=== PATIENT | male | born 1960 | race Caucasian/White ===

== ENCOUNTER 2020-01-14 19:50 | Inpatient (IN) | payer OTHER ==
[2020-01-14] MEDS ORDERED: SODIUM CHLORIDE 0.9% 1,000 ML IV STA ×3 (20:12→21:36)
[2020-01-14] MEDS ORDERED: IPRATROPIUM-ALBUTEROL 3 ML NEB INHALATION STA (20:12)
[2020-01-14] MEDS ORDERED: methylPREDNISolone SOD SUCCI 125 MG/2 ML VIAL IV STA (20:12)
[2020-01-14] MEDS ORDERED: LORazepam 2 MG/ML INJ IV STA ×2 (20:13→21:19)
--- NOTE | 2020-01-14 20:37 | ED ---
SOB HPI - General Chief Complaint: Shortness of Breath Stated Complaint: SOB Time Seen by Provider: 01/14/20 20:00 Source: patient, RN notes reviewed Mode of arrival: wheelchair Limitations: no limitations - History of Present Illness Initial Comments: This is a 59-year-old male was a smoker who has a history pneumonia in the past who presents with complaints of shortness of breath. He states is been going for about 2 days he states he was seen at [facility] earlier this morning and discharged on doxycycline and steroids. He states he was given albuterol is been very shaky and jittery since. He still complains of shortness of breath no overt chest pain no fevers chills nausea vomiting sweats. MD Complaint: shortness of breath - Related Data Home Medications Medication Instructions Recorded Confirmed Baclofen [Lioresal] 20 mg PO TID 01/14/20 01/14/20 Citalopram Hydrobromide [CeleXA] 40 mg PO DAILY 01/14/20 01/14/20 Doxycycline Monohydrate [Monodox] 100 mg PO Q12H 01/14/20 01/14/20 HYDROcodone/APAP 7.5-325MG [[place] 1 tab PO BID 01/14/20 01/14/20 7.5-325] Morphine Sulfate [Morphine Sulfate 15 mg PO BID 01/14/20 01/14/20 ER] predniSONE See Taper PO DIRECTED 01/14/20 01/14/20 Allergies Allergy/AdvReac Type Severity Reaction Status Date / Time No Known Allergies Allergy Verified 01/14/20 22:05 Review of Systems ROS Statement: Those systems with pertinent positive or pertinent negative responses have been documented in the HPI. ROS Other: All systems not noted in ROS Statement are negative. Past Medical History History of Any Multi-Drug Resistant Organisms: None Reported Past Surgical History: Back Surgery Additional Past Surgical History / Comment(s): neck fusion,rt eye surgery, rt hand surgery Past Psychological History: Depression Smoking Status: Current every day smoker Past Alcohol Use History: Occasional Past Drug Use History: Marijuana General Exam - General Exam Comments Initial Comments: This is a well-developed asthenic appearing male who is awake alert oriented 3 Limitations: no limitations General appearance: alert, anxious, in distress Head exam: Present: atraumatic, normocephalic, normal inspection Eye exam: Present: normal appearance, PERRL, EOMI. Absent: scleral icterus, conjunctival injection, periorbital swelling ENT exam: Present: normal exam, mucous membranes moist Neck exam: Present: normal inspection, other (Well-healed surgical scar seen over the posterior aspect of the neck). Absent: tenderness, meningismus, lymphadenopathy Respiratory exam: Present: wheezes, accessory muscle use, decreased breath sounds ( no stridor JVD or bruits). Absent: respiratory distress, rales, rhonchi, stridor Cardiovascular Exam: Present: regular rate, normal rhythm, normal heart sounds. Absent: systolic murmur, diastolic murmur, rubs, gallop, clicks GI/Abdominal exam: Present: soft, normal bowel sounds. Absent: distended, tenderness, guarding, rebound, rigid Extremities exam: Present: normal inspection, full ROM, normal capillary refill. Absent: tenderness, pedal edema, joint swelling, calf tenderness Back exam: Present: normal inspection Neurological exam: Present: alert, oriented X3, CN II-XII intact Psychiatric exam: Present: normal affect, normal mood Skin exam: Present: warm, dry, intact, normal color. Absent: rash Course Vital Signs 01/14/20 01/14/20 01/14/20 19:54 20:23 20:33 Temperature 97.5 F L Pulse Rate 89 102 H 108 H Respiratory 28 H Rate Blood Pressure 153/82 O2 Sat by Pulse 96 Oximetry 01/14/20 01/14/20 01/14/20 20:43 20:57 21:00 Temperature Pulse Rate 98 117 H Respiratory 24 22 Rate Blood Pressure 164/83 O2 Sat by Pulse 95 98 Oximetry 01/14/20 01/14/20 01/14/20 21:27 22:11 22:30 Temperature 97.7 F Pulse Rate 91 76 Respiratory 20 18 Rate Blood Pressure 133/90 108/84 O2 Sat by Pulse 98 99 Oximetry - Reevaluation(s) Reevaluation #1: 01/14/20 22:39 I did reevaluate patient on multiple occasions he remained dyspneic and very anxious and erratic behavior he did complain of chest and abdominal pain. Because of his history and age aortic pathology was considered CT was done showing no evidence of any aortic pathology he did however have bilateral Reevaluation #2: 01/14/20 22:46 Acidosis is likely on the basis of volume depletion. Patient is improved after IV fluids IV antibiotic was started. Medical Decision Making - Medical Decision Making I did discuss findings with the patient and later with his was present patient be admitted for treatment of pneumonia and COPD exacerbation he purely is not been diagnosed with COPD but the presentation appears consistent with this. I did discuss the case with Dr. Love - Lab Data Result diagrams: 01/14/20 20:34 01/14/20 20:34 Lab Results 01/14/20 01/14/20 01/14/20 Range/Units 20:34 20:34 20:34 WBC 15.4 H (3.8-10.6) k/uL RBC 4.74 (4.30-5.90) m/uL Hgb 14.1 (13.0-17.5) gm/dL Hct 43.8 (39.0-53.0) % MCV 92.5 (80.0-100.0) fL MCH 29.8 (25.0-35.0) pg MCHC 32.2 (31.0-37.0) g/dL RDW 12.4 (11.5-15.5) % Plt Count 207 (150-450) k/uL Neutrophils % 96 % Lymphocytes % 2 % Monocytes % 2 % Eosinophils % 0 % Basophils % 0 % Neutrophils # 14.7 H (1.3-7.7) k/uL Lymphocytes # 0.3 L (1.0-4.8) k/uL Monocytes # 0.3 (0-1.0) k/uL Eosinophils # 0.1 (0-0.7) k/uL Basophils # 0.0 (0-0.2) k/uL PT 9.9 (9.0-12.0) sec INR 1.0 (<1.2) APTT 23.4 (22.0-30.0) sec D-Dimer 0.33 (<0.60) mg/L FEU Sodium 142 (137-145) mmol/L Potassium 3.5 (3.5-5.1) mmol/L Chloride 110 H (98-107) mmol/L Carbon Dioxide 20 L (22-30) mmol/L Anion Gap 12 mmol/L BUN 12 (9-20) mg/dL Creatinine 0.74 (0.66-1.25) mg/dL Est GFR (CKD-EPI)AfAm >90 (>60 ml/min/1.73 sqM) Est GFR (CKD-EPI)NonAf >90 (>60 ml/min/1.73 sqM) Glucose 150 H (74-99) mg/dL Plasma Lactic Acid Pierre (0.7-2.0) mmol/L Calcium 9.8 (8.4-10.2) mg/dL Magnesium 1.6 (1.6-2.3) mg/dL Total Bilirubin 0.4 (0.2-1.3) mg/dL AST 25 (17-59) U/L ALT 16 (4-49) U/L Alkaline Phosphatase 70 (38-126) U/L Creatine Kinase 91 (55-170) U/L Troponin I (0.000-0.034) ng/mL NT-Pro-B Natriuret Pep pg/mL Total Protein 6.9 (6.3-8.2) g/dL Albumin 4.5 (3.5-5.0) g/dL 01/14/20 01/14/20 01/14/20 Range/Units 20:34 20:34 20:34 WBC (3.8-10.6) k/uL RBC (4.30-5.90) m/uL Hgb (13.0-17.5) gm/dL Hct (39.0-53.0) % MCV (80.0-100.0) fL MCH (25.0-35.0) pg MCHC (31.0-37.0) g/dL RDW (11.5-15.5) % Plt Count (150-450) k/uL Neutrophils % % Lymphocytes % % Monocytes % % Eosinophils % % Basophils % % Neutrophils # (1.3-7.7) k/uL Lymphocytes # (1.0-4.8) k/uL Monocytes # (0-1.0) k/uL Eosinophils # (0-0.7) k/uL Basophils # (0-0.2) k/uL PT (9.0-12.0) sec INR (<1.2) APTT (22.0-30.0) sec D-Dimer (<0.60) mg/L FEU Sodium (137-145) mmol/L Potassium (3.5-5.1) mmol/L Chloride (98-107) mmol/L Carbon Dioxide (22-30) mmol/L Anion Gap mmol/L BUN (9-20) mg/dL Creatinine (0.66-1.25) mg/dL Est GFR (CKD-EPI)AfAm (>60 ml/min/1.73 sqM) Est GFR (CKD-EPI)NonAf (>60 ml/min/1.73 sqM) Glucose (74-99) mg/dL Plasma Lactic Acid Pierre 3.5 H* (0.7-2.0) mmol/L Calcium (8.4-10.2) mg/dL Magnesium (1.6-2.3) mg/dL Total Bilirubin (0.2-1.3) mg/dL AST (17-59) U/L ALT (4-49) U/L Alkaline Phosphatase (38-126) U/L Creatine Kinase (55-170) U/L Troponin I <0.012 (0.000-0.034) ng/mL NT-Pro-B Natriuret Pep 1150 pg/mL Total Protein (6.3-8.2) g/dL Albumin (3.5-5.0) g/dL - EKG Data -: EKG Interpreted by Me EKG shows normal: sinus rhythm EKG Comments: Sinus rhythm of 89. Interval 126 QRS 80 QT since QTC 376/457 some artifact present possible left atrial enlargement - Radiology Data Radiology results: image reviewed Interpreted by me: I did review the imaging and report evidence of bilateral infiltrates consistent with pneumonia Critical Care Time Critical Care Time: Yes Total Critical Care Time: 31 Critical Care Time: 31 minutes of critical care time which included initial presentation with history physical labs x-rays multiple reevaluation the patient responsive therapy multiple discussions with the patient's discussed with the admitting physician admission orders and documentation the above Disposition Clinical Impression: Acute exacerbation of chronic obstructive pulmonary disease, Pneumonia, Lactic acidosis, Dehydration Disposition: ADMITTED IP TO THIS HOSP Condition: Fair Referrals: Joseph Granger MD [Primary Care Provider] - 1-2 days
[2020-01-14 20:59] LABS: Basophils % (A) 0 %; Eosinophils # (A) 0.1 k/uL (0-0.7); Eosinophils % (A) 0 %; HCT 43.8 % (39.0-53.0); HGB 14.1 gm/dL (13.0-17.5); Lymphocytes # (A) 0.3 k/uL (1.0-4.8); Lymphocytes % (A) 2 %; MCH 29.8 pg (25.0-35.0); MCHC 32.2 g/dL (31.0-37.0); MCV 92.5 fL (80.0-100.0); Mean Platelet Volume 8.6; Monocytes # (A) 0.3 k/uL (0-1.0); Monocytes % (A) 2 %; Neutrophils # (A) 14.7 k/uL (1.3-7.7); Neutrophils % (A) 96 %; Platelet Count 207 k/uL (150-450); RBC 4.74 m/uL (4.30-5.90); RDW 12.4 % (11.5-15.5); WBC 15.4 k/uL (3.8-10.6)
[2020-01-14] MEDS ORDERED: diphenhydrAMINE 50 MG/ML 1 ML VIAL IVP STA (21:01)
[2020-01-14 21:20] LABS: D-Dimer 0.33 mg/L FEU (<0.60); Partial Thromboplastin Time 23.4 sec (22.0-30.0); Prothrombin Time 9.9 sec (9.0-12.0)
[2020-01-14 21:21] LABS: ALT 16 U/L (4-49); AST 25 U/L (17-59); African American GFR (CKD) >90 (>60 ml/min/1.73 sqM); Albumin 4.5 g/dL (3.5-5.0); Alkaline Phosphatase 70 U/L (38-126); Anion Gap 12 mmol/L; Blood Urea Nitrogen 12 mg/dL (9-20); Calcium 9.8 mg/dL (8.4-10.2); Carbon Dioxide 20 mmol/L (22-30); Chloride 110 mmol/L (98-107); Creatine Kinase 91 U/L (55-170); Glucose 150 mg/dL (74-99); Magnesium 1.6 mg/dL (1.6-2.3); Non-African American GFR(CKD) >90 (>60 ml/min/1.73 sqM); Potassium 3.5 mmol/L (3.5-5.1); Sodium 142 mmol/L (137-145); Total Bilirubin 0.4 mg/dL (0.2-1.3); Total Protein 6.9 g/dL (6.3-8.2)
--- NOTE | 2020-01-14 21:59 | CT ---
EXAMINATION TYPE: CT angio thor/abd pel aorta DATE OF EXAM: 01/14/2020 COMPARISON: None HISTORY: Severe chest and abdominal pain. CT DLP: 1571.5 mGycm Automated exposure control for dose reduction was used. CONTRAST: Performed without and with IV Contrast, patient injected with 100ml mL of Isovue 370. Images were obtained from the thoracic inlet to the floor the pelvis without and subsequently with IV contrast. There are 3-D post processed images. There is patchy moderate interstitial and airspace infiltrate in both lungs. There is some coalescent density in the lingula left upper lobe and also posterior left lower lobe. There is no pleural effus ion. Heart size is normal. There is no pericardial effusion. Thoracic aorta is intact. There is no aneurysm or dissection. Ascending aorta measures 3.1 cm. There are no hilar masses. I see no filling defect in the pulmonary arteries. Abdominal aorta is intact. There is patency of the celiac artery and superior mesenteric artery. Ther e is bilateral arterial flow in the renal arteries. There is bilateral patency of the iliac and femor al arteries. There is no retroperitoneal adenopathy. Liver spleen pancreas gallbladder appear intact. Bile ducts are not dilated. There is no adrenal mass . Kidneys show satisfactory contrast opacification. Ureters are not dilated. There is no retroperiton eal adenopathy. Bladder distends smoothly with contrast. There is no inguinal hernia. There is no heydi e fluid in the pelvis. There is no mesenteric edema. There is no ascites or free air. There is no evidence of bowel obstruct ion. Thoracic and lumbar spine appear intact. There is mild spondylotic changes in the lumbar spine. There is no compression fracture. IMPRESSION: Negative CT angiogram of the chest abdomen pelvis. No evidence of aortic aneurysm or dissection. No e vidence of pulmonary embolism. No evidence of hemodynamic stenosis. Bilateral pulmonary infiltrates probably related to pneumonia.
--- NOTE | 2020-01-14 22:04 | XR ---
EXAMINATION TYPE: XR chest 1V portable DATE OF EXAM: 01/14/2020 COMPARISON: NONE HISTORY: Short of breath TECHNIQUE: Single view FINDINGS: There is moderate pulmonary interstitial and airspace edema. There is no definite pleural e ffusion. There are chest leads. IMPRESSION: Bilateral patchy pulmonary edema. This could relate to RDS. Atypical heart failure not ex cluded.
[2020-01-14] MEDS ORDERED: cefTRIAXone IN SWFI 1,000 MG/10 ML SYRINGE IVP STA (22:05)
[2020-01-14] MEDS ORDERED: PNEUMONIA PROTOCOL UTILIZED 1 EACH MISC PO PRN (22:49)
[2020-01-14] MEDS ORDERED: AZITHROMYCIN 500 MG in SODIUM CHLORIDE 0.9% 250 ML IVPB ONE (23:00)
[2020-01-15] MEDS: IPRATROPIUM-ALBUTEROL 3 ML NEB INHALATION SCH ×5 (00:25→19:58)
[2020-01-15] MEDS: diazePAM 5 MG TAB PO PRN (03:21)
[2020-01-15] MEDS ORDERED: methylPREDNISolone SOD SUCCI 125 MG/2 ML VIAL IV SCH ×2 (06:00)
[2020-01-15 07:02] LABS: Glucose,Whole Blood 147 mg/dL (75-99)
[2020-01-15] MEDS: CITALOPRAM HYDROBROMIDE 20 MG TAB PO SCH (08:41)
[2020-01-15] MEDS: BACLOFEN 10 MG TAB PO SCH ×3 (08:41→21:10)
[2020-01-15] MEDS ORDERED: IPRATROPIUM-ALBUTEROL 3 ML NEB INHALATION PRN ×2 (08:54→10:39)
[2020-01-15] MEDS ORDERED: HYDROcodone/APAP 7.5-325MG 1 EACH TAB PO SCH (09:00)
[2020-01-15] MEDS ORDERED: MORPHINE SULFATE ER 15 MG TABLET PO SCH (09:00)
[2020-01-15] MEDS ORDERED: NALOXONE 0.4 MG/ML 1 ML VIAL IVP STA (09:02)
[2020-01-15] MEDS ORDERED: FUROSEMIDE 10 MG/ML 4 ML VIAL IV STA (09:49)
--- NOTE | 2020-01-15 10:24 | CT ---
EXAMINATION TYPE: CT brain wo con DATE OF EXAM: 01/15/2020 COMPARISON: None HISTORY: 59-year-old male Encephalopathy TECHNIQUE: Examination was done in axial plane without intravenous contrast. Coronal and sagittal r econstructions performed. CT DLP: 1172.4 mGycm Automated exposure control for dose reduction was used. FINDINGS: There is no evidence of acute intracranial hemorrhage, acute ischemic changes, mass, mass-effect, or extra-axial fluid collection. There is no effacement of cerebral sulci or basal subarachnoid cister ns. There is no hydrocephalus. There is no midline shift. Mallory-white matter distinction is preserv ed. Mild mucosal thickening throughout the maxillary sinuses and ethmoid air cells. Undulating nasal sept um with prominent leftward deviation. Mastoid air cells well pneumatized. IMPRESSION: No acute intracranial abnormality seen. Mild chronic ethmoid and maxillary sinus disease.
[2020-01-15 10:28] LABS: Amphetamine Screen,Urine Not Detected (NotDetected); Barbiturate Screen,Urine Not Detected (NotDetected); Benzodiazepines Screen,Urine Detected (NotDetected); Cocaine Screen,Urine Not Detected (NotDetected); Methadone Screen, Urine Not Detected (NotDetected); Opiate Screen,Urine Detected (NotDetected); Oxycodone Screen, Urine Not Detected (NotDetected); Phencyclidine Screen,Urine Not Detected (NotDetected); Tricyclic Antidepressant,Urine Not Detected (NotDetected); Urn Cannabinoid Scrn Detected (NotDetected)
[2020-01-15] MEDS: HYDROmorphone 1 MG/ML 1 ML SYRINGE IVP PRN ×2 (10:35→20:13)
--- NOTE | 2020-01-15 10:53 | P.HPIM ---
History of Present Illness H&P Date: 01/15/20 Chief Complaint: Confusion HISTORY OF PRESENT ILLNESS This is a 49-year-old female patient of Dr. Granger with no significant past medical history other than depression, chronic tobacco use and chronic marijuana use. Patient initially presented to [facility] due to shortness of breath 3 days ago, seen at [facility] yesterday and was diagnosed with pneumonia and discharged on doxycycline and prednisone. Patient was brought to [facility] emergency center by his with complaints of shakiness, shortness of breath. No chest pain, no fever no chills no nausea or vomiting no sweats. He was found to be afebrile, heart rate 102, blood pressure 153/82, pulse ox 96% on room air. WBC 15.4, hemoglobin 14.1, platelet count 207. Sodium 142, potassium 3.5, chloride 110, CO2 20, BUN 12 and creatinine 0.74, blood sugar 150. Liver function tests were normal. Lactic acid 3.5, troponin negative. ProBNP 1150. EKG was a sinus rhythm. Chest x-ray reveals bilateral patchy pulmonary edema. This could relate to RDS. Atypical heart failure not excluded. CT angiogram of the thoracic and abdominal aorta was negative. No evidence of aortic aneurysm or dissection. No evidence pulmonary embolism. No evidence of hemodynamic stenosis. Bilateral pulmonary infiltrates probably related to pneumonia. In the emergency center, patient continued to have dyspneic episodes with anxiety and erratic behavior with confusion. Apparently patient's reported that he has had confusion with pneumonia in the past. [facility] with pulmonary medicine. Patient has had continued episodes of confusion with lucid periods. At the time of evaluation, patient was encephalopathic, unable to follow any commands, unable to provide his 's name, home address and etc. We have added and consults with infectious disease, neurology. We also had a consult in for anesthesia to perform a diagnostic lumbar puncture but patient's declined. Subsequently, patient had a Brand catheter placed with improvement of his mental status prior with drainage of only 350 ML's. This was prior to Narcan. CAT scan of the brain showed no acute intracranial abnormality. Mild chronic ethmoid and maxillary sinus disease. COVID-19 negative at [facility]. Attempted to reach patient's this morning but no answer. Contacted patient's daughter and gave brief update. REVIEW OF SYSTEMS Unable to provide due to mental status change. Patient complains of feeling cold. SOCIAL HISTORY he is a smoker of one pack per day and he drinks a couple beers usually 2 a couple days a week but denies use daily. He states he uses marijuana occasionally and denies any other drug use. FAMILY HISTORY Mother at age 69 from a myocardial infarction. Father in a truck accident at age 29. Patient does not have his sisters. Patient has 2 brothers with no major medical problems. Patient has 2 daughters and 1 son with no major medical problems.. PHYSICAL EXAMINATION Gen: This is a 59-year-old male. He is resting in bed, patient is anxious, agitated. HEENT: Head is atraumatic, normocephalic. Pupils equal, round. Sclerae is anicteric. NECK: Supple. No JVD. No lymphadenopathy. No thyromegaly. LUNGS: Diminished bilaterally but otherwise clear No wheezes or rhonchi. No intercostal retractions. HEART: Regular rate and rhythm. No murmur. ABDOMEN: Soft. Bowel sounds are present. No masses. No tenderness. EXTREMITIES: No pedal edema. No calf tenderness. Dorsalis pedis palpable bilaterally. NEUROLOGICAL: Patient is awake, patient is oriented to himself and able to provide his date but no other information. He is able to move all extremities equally, no focal neural deficits. ASSESSMENT AND PLAN 1. Dyspnea with bilateral pneumonia, acute exacerbation of COPD. Continue azithromycin, ceftriaxone, DuoNeb treatments 3 times daily and as needed, patient is status post I Medrol 125 mg once. Pulmonary medicine consult. Pro- calcitonin, Legionella and sputum culture ordered. Covid 19 testing has been ordered and was reported as negative at [facility] 2. Metabolic encephalopathy of unclear etiology, possibly related to pneumonia, concern for infectious process and medication induced. Narcan to be given. Hold patient's home dose of morphine and [place]. Consult with infectious disease and neurology. Urine drug screen and alcohol level ordered. CAT scan of the brain normal. 3. Chronic pain syndrome. Patient is unable to provide name of physician providing morphine 15 mg twice daily and [place] 7.5 twice daily. Continue baclofen 20 mg 3 times daily and Dilaudid added 1 mg IV push every 6 hours as needed for pain. 4. Tobacco use and dependence. Nicotine patch. 5. Marijuana use. 6. GI prophylaxis. Protonix]. 7. DVT prophylaxis. Heparin subcu. Patient will be admitted to the hospital for a minimum of 2 night stay. Discharge plan: To be determined. Impression and plan of care have been directed as dictated by the signing physician. Marybel Santoro nurse practitioner acting as scribe for signing physician. Past Medical History Past Medical History: No Reported History History of Any Multi-Drug Resistant Organisms: None Reported Past Surgical History: Back Surgery Additional Past Surgical History / Comment(s): neck fusion,rt eye surgery, rt hand surgery Past Psychological History: Depression Smoking Status: Current every day smoker Past Alcohol Use History: Occasional Past Drug Use History: Marijuana - Past Family History Mother History Unknown: Yes Medications and Allergies Home Medications Medication Instructions Recorded Confirmed Type Baclofen [Lioresal] 20 mg PO TID 01/14/20 01/14/20 History Citalopram Hydrobromide [CeleXA] 40 mg PO DAILY 01/14/20 01/14/20 History Doxycycline Monohydrate [Monodox] 100 mg PO Q12H 01/14/20 01/14/20 History HYDROcodone/APAP 7.5-325MG [[place] 1 tab PO BID 01/14/20 01/14/20 History 7.5-325] Morphine Sulfate [Morphine Sulfate 15 mg PO BID 01/14/20 01/14/20 History ER] predniSONE See Taper PO DIRECTED 01/14/20 01/14/20 History Allergies Allergy/AdvReac Type Severity Reaction Status Date / Time No Known Allergies Allergy Verified 01/14/20 22:05 Physical Exam Vitals: Vital Signs Temp Pulse Pulse Pulse Resp BP BP 01/15/20 09:10 22 01/15/20 08:47 98 152/77 01/15/20 07:00 98.6 F 80 18 94/50 01/15/20 03:45 88 01/15/20 03:40 98.8 F 111 H 19 142/52 01/15/20 03:35 88 01/15/20 00:40 92 01/15/20 00:25 88 01/14/20 23:42 97.7 F 56 L 18 122/84 01/14/20 22:30 97.7 F 01/14/20 22:11 76 18 108/84 01/14/20 21:27 91 20 133/90 01/14/20 21:00 164/83 01/14/20 20:57 117 H 22 01/14/20 20:43 98 24 01/14/20 20:33 108 H 01/14/20 20:23 102 H 01/14/20 19:54 97.5 F L 89 28 H 153/82 Pulse Ox 01/15/20 09:10 01/15/20 08:47 01/15/20 07:00 96 01/15/20 03:45 01/15/20 03:40 100 01/15/20 03:35 01/15/20 00:40 01/15/20 00:25 100 01/14/20 23:42 100 01/14/20 22:30 01/14/20 22:11 99 01/14/20 21:27 98 01/14/20 21:00 01/14/20 20:57 98 01/14/20 20:43 95 01/14/20 20:33 01/14/20 20:23 01/14/20 19:54 96 Intake and Output 01/14/20 01/15/20 01/15/20 22:59 06:59 14:59 Output Total 600 Balance -600 Output: Urine 600 Straight 300 Other: Weight 65.771 kg 65.771 kg Results CBC & Chem 7: 01/16/20 08:16 01/16/20 08:16 Labs: Abnormal Lab Results - Last 24 Hours (Table) 01/14/20 01/14/20 01/14/20 Range/Units 20:34 20:34 20:34 WBC 15.4 H (3.8-10.6) k/uL Neutrophils # 14.7 H (1.3-7.7) k/uL Lymphocytes # 0.3 L (1.0-4.8) k/uL Chloride 110 H (98-107) mmol/L Carbon Dioxide 20 L (22-30) mmol/L Glucose 150 H (74-99) mg/dL POC Glucose (mg/dL) (75-99) mg/dL Plasma Lactic Acid Pierre 3.5 H* (0.7-2.0) mmol/L 01/15/20 Range/Units 06:59 WBC (3.8-10.6) k/uL Neutrophils # (1.3-7.7) k/uL Lymphocytes # (1.0-4.8) k/uL Chloride (98-107) mmol/L Carbon Dioxide (22-30) mmol/L Glucose (74-99) mg/dL POC Glucose (mg/dL) 147 H (75-99) mg/dL Plasma Lactic Acid Pierre (0.7-2.0) mmol/L Thrombosis Risk Factor Assmnt - Choose All That Apply Any of the Below Risk Factors Present?: Yes Each Factor Represents 1 point: Age 41-60 years Thrombosis Risk Factor Assessment Total Risk Factor Score: 1 Thrombosis Risk Factor Assessment Level: Low Risk
[2020-01-15 11:55] LABS: Glucose,Whole Blood 148 mg/dL (75-99)
--- NOTE | 2020-01-15 12:17 | CONS ---
CONSULTATION PULMONARY/CRITICAL CARE: DATE OF CONSULTATION: January 15, 2020. REASON FOR CONSULTATION: Shortness of breath and possible pneumonia. HISTORY OF PRESENT ILLNESS: A 59-year-old gentleman who apparently presented to the emergency room on January 13 at 19:50. The patient apparently was seen in the [facility] Emergency Room earlier in the day and was prescribed some doxycycline and prednisone for suspected upper respiratory tract infection. There he had a CT angiogram which showed only some mild peribronchial disease. There was no evidence of pulmonary embolism. For some reason, the patient did not like the hospital there and decided to come here where he was again evaluated in the emergency room. He told the emergency room personnel as he told me today that the reason he was here was because of shortness of breath. He denies any fever or chills. He denies any cough or phlegm production. Denies any chest pain or chest discomfort. Denies any nausea, vomiting or diarrhea. Denies any genitourinary complaints. He just feels short of breath. The patient's affect is very strange. He is behaving somewhat erratically. He has multiple body movements and tremors. He appears to be actually undergoing withdrawal may be from either alcohol and/or narcotics. Anyway, this is the reason why the patient was admitted. The patient had chest x-ray yesterday which suggested bilateral patchy pulmonary edema or respiratory distress syndrome. They were concerned about atypical heart failure and/or possible atypical pneumonia. Thoracic aorta CT, again showed evidence of patchy moderate interstitial and airspace infiltrates in both lungs. There may be some consolidation more so in the left mid lung left lower lobe. The patient's usual medications include Baclofen, Celexa, doxycycline, [place], morphine, and prednisone. Again the doxycycline and prednisone were given to him at the [facility] Emergency Room. ALLERGIES: Denied. MEDICAL HISTORY: Primarily chronic back pain with previous back and neck surgery. He has also had neck fusion, right eye surgery, right hand surgery. SOCIAL HISTORY: Positive for ongoing tobacco use with nicotine addiction. He drinks occasionally. He does use marijuana. The rest of the medical history is pretty benign or negative. FAMILY HISTORY: Not commented on. The patient did not know the health of his mom or dad. REVIEW OF SYSTEMS: CONSTITUTIONAL negative. NEUROLOGIC: Negative. HEENT negative. CARDIOVASCULAR negative. PULMONARY: Shortness of breath. GI/ negative. RHEUMATOLOGIC: Chronic back pain. IMMUNOLOGIC negative. ENDOCRINOLOGIC negative. DERMATOLOGIC all negative. PHYSICAL EXAMINATION: VITAL SIGNS: Current vital signs are reviewed. Temperature is 98.6, heart rate 96, respiratory rate 22, blood pressure 152/77, room-air saturation 98%. GENERAL: Appears in no acute distress. Again, he seems quite fidgety and quite restless and somewhat agitated. He also has a fine tremor. HEENT: Examination is grossly unremarkable. NECK: Supple. Full range of motion. No adenopathy. Neck veins are flat. CARDIOVASCULAR: Examination reveals regular rhythm and rate. Heart rate mid 90s. S1, S2 normal. There is no murmur. LUNGS: A few scattered rhonchi. No wheezes or crackles. ABDOMEN: Soft. Bowel sounds are heard. EXTREMITIES are intact. No cyanosis, clubbing, or edema. Skin with multiple tattoos. NEUROLOGIC: Examination is briefly nonfocal. LABS: Reviewed. White count 15.4, hemoglobin 14.1, hematocrit 43.8, platelet count 307,000, PT/INR PTT and D-dimer all negative. Sodium, potassium, normal. Chloride 110 CO2 is 20, anion gap is normal. BUN and creatinine were 12 and 0.74. The rest of the comprehensive metabolic profile was normal. Drug screen was positive for opiates, benzodiazepines, and marijuana. Alcohol level was normal. Microbiology is negative. Brain CT was essentially negative. Chest x-ray from yesterday shows some patchy interstitial and alveolar infiltrates, consistent with atypical pneumonia or asymmetric pulmonary edema. The patient's troponin was less than 0.012. His N-terminal proBNP was 11 50. Plasma lactic acid was initially 3.5 and then came back down to 1.3. COVID testing is pending. He did have a rapid nasopharyngeal antigen test for Covid at the other hospital, which was negative. Current medications are reviewed. The patient is currently on 500 mg of Zithromax daily, baclofen, ceftriaxone, citalopram, Valium, heparin, Dilaudid, DuoNeb, Ativan p.r.n., Protonix, and a basic IV. ASSESSMENT: 1. Possible bilateral atypical pneumonia. 2. Possible mild fluid overload. 3. Rule out acute withdrawal, either from alcohol and/or narcotics. 4. History of chronic neck and back pain. 5. Ongoing tobacco use with nicotine addiction. PLAN: Medications the patient was given 40 mg of Lasix IV push x1. The patient is currently on antibiotics in form of Zithromax and Rocephin which I think is appropriate. We will continue to follow. The patient is on updrafts. He complains that they may come jittery. No additional recommendations are made. I am concerned about possibly of withdrawal, either from alcohol or medications. We will continue to follow. MMODL / IJN: [id number] /
[2020-01-15] MEDS ORDERED: IPRATROPIUM-ALBUTEROL 3 ML NEB INHALATION SCH (13:00)
--- NOTE | 2020-01-15 16:24 | P.CNNES ---
History of Present Illness Consult date: 01/15/20 Requesting physician: Marybel Santoro Reason for Consult: Encephalopathy History of Present Illness: Patient is a 59-year-old male came to the hospital yesterday at around 8 PM admitted to the hospital for shortness of breath going on for 2 days prior to arrival. He was seen at [facility] earlier and was discharged on doxycycline and steroids. He was given albuterol. Patient returned to the [facility] due to persistent shortness of breath, being very shaky and jittery since. Vital signs on arrival was blood pressure 150/82, pulse rate 89, temperature 97.5. CTA of the chest abdomen and pelvis negative. No evidence of aortic aneurysm or dissection. No PE. Bilateral pulmonary infiltrates probably related to pneumonia. Bilateral patchy pulmonary edema. This could be related to RDS. At ypical heart failure not excluded. EKG shows normal sinus rhythm, probably left atrial enlargement. CT of the head showed no acute intracranial abnormality. Mild chronic ethmoid and maxillary sinus disease. Patient at home is on morphine ER, 15 mg twice a day, [place], baclofen 20 mg 3 times a day and Celexa 40 mg. He is on disability because of chronic back pain. Patient's was also present, who tells me that patient has developed altered mental status 2 years ago when he was diagnosed with pneumonia as well. Patient denies diabetes, hypertension. He has smoked 1 pack per day for 20 years. He drinks alcohol couple beers every couple days. Not a heavy drinker. No history of strokes. Review of Systems Patient appears delirious. He is short of breath. Denies chest pain or abdominal pain nausea vomiting diarrhea. Patient has chronic back pain. Denies double vision, loss of vision. Denies any focal numbness tingling or weakness. Past Medical History Past Medical History: No Reported History History of Any Multi-Drug Resistant Organisms: None Reported Past Surgical History: Back Surgery Additional Past Surgical History / Comment(s): neck fusion,rt eye surgery, rt hand surgery Past Psychological History: Depression Smoking Status: Current every day smoker Past Alcohol Use History: Occasional Past Drug Use History: Marijuana - Past Family History Mother History Unknown: Yes Medications and Allergies Home Medications Medication Instructions Recorded Confirmed Type Baclofen [Lioresal] 20 mg PO TID 01/14/20 01/14/20 History Citalopram Hydrobromide [CeleXA] 40 mg PO DAILY 01/14/20 01/14/20 History Doxycycline Monohydrate [Monodox] 100 mg PO Q12H 01/14/20 01/14/20 History HYDROcodone/APAP 7.5-325MG [[place] 1 tab PO BID 01/14/20 01/14/20 History 7.5-325] Morphine Sulfate [Morphine Sulfate 15 mg PO BID 01/14/20 01/14/20 History ER] predniSONE See Taper PO DIRECTED 01/14/20 01/14/20 History Allergies Allergy/AdvReac Type Severity Reaction Status Date / Time No Known Allergies Allergy Verified 01/14/20 22:05 Physical Examination - Vital Signs Vital Signs: Vital Signs Temp Pulse Pulse Pulse Resp BP BP 01/15/20 09:10 22 01/15/20 08:47 98 152/77 01/15/20 07:00 98.6 F 80 18 94/50 01/15/20 03:45 88 01/15/20 03:40 98.8 F 111 H 19 142/52 01/15/20 03:35 88 01/15/20 00:40 92 01/15/20 00:25 88 01/14/20 23:42 97.7 F 56 L 18 122/84 01/14/20 22:30 97.7 F 01/14/20 22:11 76 18 108/84 01/14/20 21:27 91 20 133/90 01/14/20 21:00 164/83 01/14/20 20:57 117 H 22 01/14/20 20:43 98 24 01/14/20 20:33 108 H 01/14/20 20:23 102 H 01/14/20 19:54 97.5 F L 89 28 H 153/82 Pulse Ox 01/15/20 09:10 01/15/20 08:47 01/15/20 07:00 96 01/15/20 03:45 01/15/20 03:40 100 01/15/20 03:35 01/15/20 00:40 01/15/20 00:25 100 01/14/20 23:42 100 01/14/20 22:30 01/14/20 22:11 99 01/14/20 21:27 98 01/14/20 21:00 01/14/20 20:57 98 01/14/20 20:43 95 01/14/20 20:33 01/14/20 20:23 01/14/20 19:54 96 Intake and Output 01/14/20 01/15/20 01/15/20 22:59 06:59 14:59 Intake Total 100 Output Total 600 350 Balance -600 -250 Intake: Oral 100 Output: Urine 600 350 Straight 300 350 Other: Voiding Method Indwelling Catheter Weight 65.771 kg 65.771 kg On examination patient is a middle aged male, who is in mild to moderate respiratory distress. Attention and concentration fund of knowledge is limited. Patient knows the year is 2019, but does not know the month. States he is in [facility] in [facility]. He states it is fall season but then states was summer. Knows name of the current president. He knows his date of . Speech and language functions are normal. No aphasia or dysarthria. On cranial examination pupils are round and reactive to light, visual interiano are full on confrontation, extraocular muscles are intact with no nystagmus. Face is symmetric, tongue protrudes to midline. Palatal elevation and sensation normal hearing and shoulder shrug normal on muscle strength testing there is no pronator drift and the strength is normal in arms and legs distally and proximally. Reflexes are 1+ and plantars are downgoing. Sensory touch is equal. No ataxia for [id number] testing. Patient has mild tremors of outstretched hands also for [id number] testing. He has significant Dupuytren's contracture of the little and ring fingers of both hands. He had surgery done in the right hand, which made things worse. There is no obvious bruit, S1 and S2 audible. Peripheral pulses present. Abdomen soft nontender. He has some crackles. Results - Laboratory Findings CBC and BMP: 01/14/20 20:34 01/14/20 20:34 Abnormal Lab Findings: Abnormal Labs 01/14/20 01/14/20 01/14/20 20:34 20:34 20:34 WBC 15.4 H Neutrophils # 14.7 H Lymphocytes # 0.3 L Chloride 110 H Carbon Dioxide 20 L Glucose 150 H POC Glucose (mg/dL) Plasma Lactic Acid Pierre 3.5 H* Urine Opiates Screen U Benzodiazepines Scrn U Marijuana (THC) Screen 01/15/20 01/15/20 06:59 09:45 WBC Neutrophils # Lymphocytes # Chloride Carbon Dioxide Glucose POC Glucose (mg/dL) 147 H Plasma Lactic Acid Pierre Urine Opiates Screen Detected H U Benzodiazepines Scrn Detected H U Marijuana (THC) Screen Detected H Assessment and Plan Assessment: * Altered mental status, likely due to metabolic encephalopathy. Patient's bilateral pneumonia, with subsequent gaseous mismatch may be contributing to the encephalopathy. * Chronic pain with chronic opiate use. * Patient does drink alcohol, but denies heavy drinking. * Tobacco use disorder. Plan: * Patient's delirium/metabolic encephalopathy hopefully will improve once his medical condition comes under control. * We will follow clinically. * Pulmonary on the case managing his pneumonia.
[2020-01-15 16:52] LABS: Glucose,Whole Blood 119 mg/dL (75-99)
[2020-01-15] MEDS: HEPARIN SODIUM,PORCINE 5,000 UNIT/ML 1 ML VIAL SQ SCH (20:13)
[2020-01-15] MEDS: AZITHROMYCIN 500 MG TAB PO SCH (20:13)
[2020-01-15 20:31] LABS: Glucose,Whole Blood 119 mg/dL (75-99)
--- NOTE | 2020-01-15 22:42 | P.CONS ---
History of Present Illness - Reason for Consult Consult date: 01/15/20 Encephalopathy meningitis Requesting physician: Marybel Santoro - Chief Complaint Shortness of breath 2 days - History of Present Illness Patient is a 59-year-old male with a past medical history significant for chronic back pain currently on morphine and Celexa, patient started having shortness of breath about 2 days ago is mostly on exertion and even at rest the patient denies having any chest pain very minimal cough which is dry and no urinary symptoms no nausea no vomiting. diarrhea patient was initially evaluated at [facility] where apparently the patient did have a ct angiogram of the chest that was negative for pe did show some elicitation] subsequently the patient presented to this facility where the patient has been evaluated by the physician on arrival to the er patient has been afebrile however he did mildly reduced to 15,000 liver enzymes are normal. urine drug screen was positive, the patient did have CT of the chest, was negative for dissection or aneurysm of the aorta patient has been started on Rocephin and Zithromax with concern for possible pneumonia I was asked to see the patient regarding encephalopathy and possible meningitis, the patient is awake and alert he knows that he is at [facility] patient denies any headache to me or any photophobia no nausea no vomiting no diarrhea no urinary symptoms may symptom is to be shortness of breath and cough as mentioned above Review of Systems Positive point has been mentioned in the HPI rest of the systems are negative Past Medical History Past Medical History: No Reported History History of Any Multi-Drug Resistant Organisms: None Reported Past Surgical History: Back Surgery Additional Past Surgical History / Comment(s): neck fusion,rt eye surgery, rt hand surgery Past Psychological History: Depression Smoking Status: Current every day smoker Past Alcohol Use History: Occasional Past Drug Use History: Marijuana - Past Family History Mother History Unknown: Yes Medications and Allergies Home Medications Medication Instructions Recorded Confirmed Type Baclofen [Lioresal] 20 mg PO TID 01/14/20 01/14/20 History Citalopram Hydrobromide [CeleXA] 40 mg PO DAILY 01/14/20 01/14/20 History Doxycycline Monohydrate [Monodox] 100 mg PO Q12H 01/14/20 01/14/20 History HYDROcodone/APAP 7.5-325MG [[place] 1 tab PO BID 01/14/20 01/14/20 History 7.5-325] Morphine Sulfate [Morphine Sulfate 15 mg PO BID 01/14/20 01/14/20 History ER] predniSONE See Taper PO DIRECTED 01/14/20 01/14/20 History Allergies Allergy/AdvReac Type Severity Reaction Status Date / Time No Known Allergies Allergy Verified 01/14/20 22:05 Physical Exam Vitals: Vital Signs Temp Pulse Pulse Pulse Resp BP BP 01/15/20 20:08 88 18 01/15/20 19:58 84 16 01/15/20 19:06 98.1 F 78 16 117/79 01/15/20 15:00 98.5 F 72 18 134/82 01/15/20 11:21 96 01/15/20 11:12 96 01/15/20 09:10 22 01/15/20 08:47 98 152/77 01/15/20 07:00 98.6 F 80 18 94/50 01/15/20 03:45 88 01/15/20 03:40 98.8 F 111 H 19 142/52 01/15/20 03:35 88 01/15/20 00:40 92 01/15/20 00:25 88 01/14/20 23:42 97.7 F 56 L 18 122/84 Pulse Ox 01/15/20 20:08 01/15/20 19:58 01/15/20 19:06 97 01/15/20 15:00 96 01/15/20 11:21 01/15/20 11:12 01/15/20 09:10 01/15/20 08:47 01/15/20 07:00 96 01/15/20 03:45 01/15/20 03:40 100 01/15/20 03:35 01/15/20 00:40 01/15/20 00:25 100 01/14/20 23:42 100 Intake and Output 01/15/20 01/15/20 01/15/20 06:59 14:59 22:59 Intake Total 100 Output Total 600 1600 700 Balance -600 -1500 -700 Intake: Oral 100 Output: Urine 600 1600 700 Straight 300 1600 700 Other: Voiding Method Indwelling Catheter # Bowel Movements 1 Weight 65.771 kg GENERAL DESCRIPTION: Middle-aged male lying in bed, no distress. No tachypnea or accessory muscle of respiration use. HEENT: Shows Pallor , no scleral icterus. Oral mucous membrane is dry. No pharyngeal erythema or thrush NECK: Trachea central, no thyromegaly. LUNGS: Unlabored breathing. Decreased breath sound at the base. No wheeze or crackle. HEART: S1, S2, regular rate and rhythm. No loud murmur ABDOMEN: Soft, no tenderness , guarding or rigidity, no organomegaly EXTREMITIES: No edema of feet. SKIN: No rash, no masses palpable. NEUROLOGICAL: The patient is awake, alert, oriented x3, mood and affect normal. No signs of meningeal irritation Results CBC & Chem 7: 01/14/20 20:34 01/14/20 20:34 Labs: Abnormal Lab Results - Last 24 Hours (Table) 01/15/20 01/15/20 01/15/20 Range/Units 06:59 09:45 11:53 POC Glucose (mg/dL) 147 H 148 H (75-99) mg/dL Urine Opiates Screen Detected H (NotDetected) U Benzodiazepines Scrn Detected H (NotDetected) U Marijuana (THC) Screen Detected H (NotDetected) 01/15/20 01/15/20 Range/Units 16:46 20:29 POC Glucose (mg/dL) 119 H 119 H (75-99) mg/dL Urine Opiates Screen (NotDetected) U Benzodiazepines Scrn (NotDetected) U Marijuana (THC) Screen (NotDetected) Assessment and Plan Assessment: 1- patient is a 59-year-old male presented to hospital with increasing shortness of breath in this patient who did not have any fever he did have mildly elevated white count of 15,000 this patient who did have a saturation fitted with concern for possible atypical pneumonia and possible metabolic and slough with a clinically doubt infectious encephalopathy or meningitis in this patient currently with no fever no headache patient is awake and alert and knows that he is in the [facility] and no signs of meningeal irritation (1) Pneumonia Current Visit: Yes Status: Acute Code(s): J18.9 - PNEUMONIA, UNSPECIFIED ORGANISM SNOMED Code(s): 912307987 Plan: 1- we will obtain urine for Legionella antigen and sputum for Gram stain and culture 2-Rocephin 1 g daily and Zithromax to continue We will follow on clinical condition and cultures to further adjust medication if needed Thank you for this consultation will follow this patient with you Time with Patient: Greater than 30
[2020-01-16] MEDS: HYDROmorphone 1 MG/ML 1 ML SYRINGE IVP PRN ×4 (04:06→22:57)
[2020-01-16 06:55] LABS: Glucose,Whole Blood 98 mg/dL (75-99)
[2020-01-16] MEDS: IPRATROPIUM-ALBUTEROL 3 ML NEB INHALATION SCH ×3 (08:42→20:36)
[2020-01-16] MEDS ORDERED: PANTOPRAZOLE 40 MG/10 ML VIAL IVP SCH (09:00)
[2020-01-16] MEDS: CITALOPRAM HYDROBROMIDE 20 MG TAB PO SCH (09:14)
[2020-01-16] MEDS: BACLOFEN 10 MG TAB PO SCH ×3 (09:14→21:43)
[2020-01-16] MEDS: HEPARIN SODIUM,PORCINE 5,000 UNIT/ML 1 ML VIAL SQ SCH ×2 (09:15→21:42)
[2020-01-16 09:34] LABS: Basophils % (A) 0 %; Eosinophils % (A) 0 %; HCT 42.4 % (39.0-53.0); HGB 13.7 gm/dL (13.0-17.5); Lymphocytes # (A) 1.5 k/uL (1.0-4.8); Lymphocytes % (A) 9 %; MCHC 32.2 g/dL (31.0-37.0); Mean Platelet Volume 8.9; Monocytes # (A) 0.8 k/uL (0-1.0); Monocytes % (A) 5 %; Neutrophils # (A) 13.5 k/uL (1.3-7.7); Neutrophils % (A) 85 %; Platelet Count 209 k/uL (150-450); RBC 4.56 m/uL (4.30-5.90); RDW 12.6 % (11.5-15.5); WBC 15.9 k/uL (3.8-10.6)
[2020-01-16 09:41] LABS: African American GFR (CKD) >90 (>60 ml/min/1.73 sqM); Anion Gap 5 mmol/L; Blood Urea Nitrogen 22 mg/dL (9-20); Calcium 8.8 mg/dL (8.4-10.2); Carbon Dioxide 29 mmol/L (22-30); Chloride 105 mmol/L (98-107); Glucose 84 mg/dL (74-99); Non-African American GFR(CKD) >90 (>60 ml/min/1.73 sqM); Potassium 4.4 mmol/L (3.5-5.1); Sodium 139 mmol/L (137-145)
[2020-01-16 09:51] LABS: C Reactive Protein 77.3 mg/L (<10.0)
--- NOTE | 2020-01-16 10:43 | P.PN ---
Subjective Progress Note Date: 01/16/20 HISTORY OF PRESENT ILLNESS This is a 49-year-old female patient of Dr. Granger with no significant past medical history other than depression, chronic tobacco use and chronic marijuana use. Patient initially presented to [facility] due to shortness of breath 3 days ago, seen at [facility] yesterday and was diagnosed with pneumonia and discharged on doxycycline and prednisone. Patient was brought to [facility] emergency center by his with complaints of shakiness, shortness of breath. No chest pain, no fever no chills no nausea or vomiting no sweats. He was found to be afebrile, heart rate 102, blood pressure 153/82, pulse ox 96% on room air. WBC 15.4, hemoglobin 14.1, platelet count 207. Sodium 142, potassium 3.5, chloride 110, CO2 20, BUN 12 and creatinine 0.74, blood sugar 150. Liver function tests were normal. Lactic acid 3.5, troponin negative. ProBNP 1150. EKG was a sinus rhythm. Chest x-ray reveals bilateral patchy pulmonary edema. This could relate to RDS. Atypical heart failure not excluded. CT angiogram of the thoracic and abdominal aorta was negative. No evidence of aortic aneurysm or dissection. No evidence pulmonary embolism. No evidence of hemodynamic stenosis. Bilateral pulmonary infiltrates probably related to pneumonia. In the emergency center, patient continued to have dyspneic episodes with anxiety and erratic behavior with confusion. Apparently patient's reported that he has had confusion with pneumonia in the past. Patient admitted to the Medr floor and consult with pulmonary medicine. Patient has had continued episodes of confusion with lucid periods. At the time of evaluation, patient was encephalopathic, unable to follow any commands, unable to provide his 's name, home address and etc. We have added and consults with infectious disease, neurology. We also had a consult in for anesthesia to perform a diagnostic lumbar puncture but patient's declined. Subsequently, patient had a Brand catheter placed with improvement of his mental status prior with drainage of only 350 ML's. This was prior to Narcan. CAT scan of the brain showed no acute intracranial abnormality. Mild chronic ethmoid and maxillary sinus disease. COVID-19 negative at [facility]. Attempted to reach patient's this morning but no answer. Contacted patient's daughter and gave brief update. 01/15: Patient has been seen by multiple consultants including infectious disease and he recommended continuing Rocephin and Zithromax. Urine to be checked for Legionella and sputum for Gram stain and culture. Patient has been seen by Dr. Ramos for delirium/metabolic encephalopathy which is expected to improve. Dr. Nrowood is following the patient for possible bilateral atypical pneumonia, possible mild fluid overload status post a dose of IV Lasix. Rule out acute withdrawal from either alcohol or narcotics. Pro-calcitonin 0.07, alcohol level came back at less than 10. He has been afebrile, heart rate 53, blood pressure 130/84, pulse ox 96% on 2 L nasal cannula. COVID-19 testing negative. Today, patient is alert and oriented 3. He remembers that he had a hard time breathing that's what brought him to the hospital. He knows his name and date of , address, 's name. He follows with Dr. Corea for pain management. He states he is a smoker of one pack per day and he drinks a couple beers usually 2 a couple days a week but denies use daily. He states he uses marijuana occasionally and denies any other drug use. REVIEW OF SYSTEMS Constitutional: No fever, no chills, no night sweats. No weight change. Reports weakness, fatigue. EENT: No headache. No blurred vision or double vision, no loss of vision. No dizziness. No nasal drainage or congestion. No epistaxis. No sore throat. Lungs: Reports mild reports shortness of breath, cough, no sputum production. No wheezing. Cardiovascular: No chest pain, no lower extremity edema. No palpitations. No paroxysmal nocturnal dyspnea. No orthopnea. No lightheadedness or dizziness. No syncopal episodes. Abdominal: No abdominal pain. No nausea, vomiting. No diarrhea. No constipation. No bloody or tarry stools. No loss of appetite. Genitourinary: No dysuria, increased frequency, urgency. No urinary retention. Musculoskeletal: No myalgias. No muscle weakness, no gait dysfunction, no frequent falls. No back pain. No neck pain. Integumentary: No wounds, no lesions. No rash or pruritus. No unusual bruising. No change in hair or nails. Neurologic: No aphasia. No facial droop. No change in mentation. No head injury. No headache. No paralysis. No paresthesia. Psychiatric: No depression. No anxiety. No mood swings. Endocrine: No abnormal blood sugars. No weight change. No excessive sweating or thirst. No cold intolerance. PHYSICAL EXAMINATION Gen: This is a 59-year-old male. He is resting in bed and appears to be in no acute distress. HEENT: Head is atraumatic, normocephalic. Pupils equal, round. Sclerae is anicteric. NECK: Supple. No JVD. No lymphadenopathy. No thyromegaly. LUNGS: Diminished bilaterally but otherwise clear No wheezes or rhonchi. No intercostal retractions. HEART: Regular rate and rhythm. No murmur. ABDOMEN: Soft. Bowel sounds are present. No masses. No tenderness. EXTREMITIES: No pedal edema. No calf tenderness. Dorsalis pedis palpable bilaterally. NEUROLOGICAL: Patient is awake, alert and oriented 3. He is able to move all 4 extremities, no focal neural deficits. ASSESSMENT AND PLAN 1. Dyspnea with possible bilateral pneumonia, possible mild exacerbation of COPD. Continue azithromycin, ceftriaxone, DuoNeb treatments 3 times daily and as needed, patient received 1 dose of Solu-Medrol 125 mg once. Pulmonary medicine consult appreciated. Pro-calcitonin, Legionella and sputum culture ordered. 2. Metabolic encephalopathy of unclear etiology, possibly related to pneumonia, concern for infectious process and medication induced, withdrawal induced. Consult with infectious disease and neurology appreciated. 3. Chronic pain syndrome. Patient follows with pain management with Dr. Marlene rodrgiuez with home medication of morphine 15 mg twice daily and [place] 7.5 twice daily. Continue baclofen 20 mg 3 times daily and Dilaudid added 1 mg IV push every 6 hours as needed for pain. 4. Tobacco use and dependence. Nicotine patch. 5. Marijuana use. 6. GI prophylaxis. Protonix. 7. DVT prophylaxis. Heparin subcu. Discharge plan: Home on Sunday Impression and plan of care have been directed as dictated by the signing physician. Marybel Santoro nurse practitioner acting as scribe for signing physician. Objective - Vital Signs Vital signs: Vital Signs Temp 98.9 F 01/16/20 07:00 Pulse 53 L 01/16/20 07:00 Resp 17 01/16/20 07:00 BP 130/84 01/16/20 07:00 Pulse Ox 96 01/16/20 07:00 Intake & Output 01/15/20 01/16/20 01/16/20 18:59 06:59 18:59 Intake Total 100 Output Total 2300 475 Balance -2200 -475 Intake: Oral 100 Output: Urine 2300 475 Straight 2300 Other: Voiding Method Indwelling Catheter Indwelling Catheter Indwelling Catheter # Bowel Movements 1 - Labs CBC & Chem 7: 01/16/20 08:16 01/16/20 08:16 Labs: Abnormal Lab Results - Last 24 Hours (Table) 01/15/20 01/15/20 01/15/20 Range/Units 09:45 11:53 16:46 POC Glucose (mg/dL) 148 H 119 H (75-99) mg/dL Urine Opiates Screen Detected H (NotDetected) U Benzodiazepines Scrn Detected H (NotDetected) U Marijuana (THC) Screen Detected H (NotDetected) 01/15/20 Range/Units 20:29 POC Glucose (mg/dL) 119 H (75-99) mg/dL Urine Opiates Screen (NotDetected) U Benzodiazepines Scrn (NotDetected) U Marijuana (THC) Screen (NotDetected) Microbiology - Last 24 Hours (Table) 01/14/20 22:24 Blood Culture - Preliminary Blood No Growth after 24 hours
--- NOTE | 2020-01-16 10:53 | P.PN ---
Subjective Progress Note Date: 01/16/20 Principal diagnosis: Possible atypical pneumonia The patient is seen today 01/16/2020 in follow-up on the regular medical floor. He is awake alert oriented 3 today. More calm and comfortable compared to yesterday. No worsening shortness of breath, cough or congestion. Maintaining O2 saturations in the mid 90s on 2 L/m per nasal cannula. He's been afebrile. Hemodynamically stable. Blood culture reveals no growth to date. White count 15.9. Hemoglobin 13.7. Sodium 139. Potassium 4.4. Creatinine 0.76. He remains on ceftriaxone and azithromycin. Objective - Vital Signs Vital signs: Vital Signs Temp 98.9 F 01/16/20 07:00 Pulse 53 L 01/16/20 07:00 Resp 17 01/16/20 07:00 BP 130/84 01/16/20 07:00 Pulse Ox 96 01/16/20 07:00 Intake & Output 01/15/20 01/16/20 01/16/20 18:59 06:59 18:59 Intake Total 100 Output Total 2300 475 Balance -2200 -475 Intake: Oral 100 Output: Urine 2300 475 Straight 2300 Other: Voiding Method Indwelling Catheter Indwelling Catheter Indwelling Catheter # Bowel Movements 1 - Exam GENERAL EXAM: Alert, pleasant 59-year-old gentleman, on 2 L nasal cannula, comfortable in no apparent distress. HEAD: Normocephalic. EYES: Normal reaction of pupils, equal size. NOSE: Clear with pink turbinates. THROAT: No erythema or exudates. NECK: No masses, no JVD. CHEST: No chest wall deformity. LUNGS: Equal air entry with few scattered rhonchi, diminished CVS: S1 and S2 normal with no audible murmur, regular rhythm. ABDOMEN: No hepatosplenomegaly, normal bowel sounds, no guarding or rigidity. SPINE: No scoliosis or deformity SKIN: No rashes. Multiple tattoos. CENTRAL NERVOUS SYSTEM: No focal deficits, tone is normal in all 4 extremities. EXTREMITIES: There is no peripheral edema. No clubbing, no cyanosis. Peripheral pulses are intact. - Labs CBC & Chem 7: 01/16/20 08:16 01/16/20 08:16 Labs: Abnormal Lab Results - Last 24 Hours (Table) 01/15/20 01/15/20 01/15/20 Range/Units 11:53 16:46 20:29 WBC (3.8-10.6) k/uL Neutrophils # (1.3-7.7) k/uL BUN (9-20) mg/dL POC Glucose (mg/dL) 148 H 119 H 119 H (75-99) mg/dL C-Reactive Protein (<10.0) mg/L 01/16/20 01/16/20 Range/Units 08:16 08:16 WBC 15.9 H (3.8-10.6) k/uL Neutrophils # 13.5 H (1.3-7.7) k/uL BUN 22 H (9-20) mg/dL POC Glucose (mg/dL) (75-99) mg/dL C-Reactive Protein 77.3 H (<10.0) mg/L Microbiology - Last 24 Hours (Table) 01/14/20 22:24 Blood Culture - Preliminary Blood No Growth after 24 hours Assessment and Plan Assessment: Dyspnea secondary to possible bilateral atypical pneumonia and fluid volume overload Rule out acute withdrawal from either alcohol or narcotics, improved today History of chronic back and neck pain maintained on [place], morphine and baclofen in the outpatient setting Chronic and ongoing tobacco dependence History of depression Plan: The patient was seen and evaluated by Dr. Norwood He is improved today Continue current antibiotics for now Repeat chest x-ray in a.m. We'll continue to follow I, the cosigning physician, performed a history & physical examination of the patient. Lungs sounds with few scattered rhonchi, diminished. Maintaining good O2 saturations in the 90s on 2 L/m per nasal cannula. I discussed the assessment and plan of care with my nurse practitioner, Brissa Sellers. I attest to the above note as dictated by her.
[2020-01-16 11:19] LABS: Glucose,Whole Blood 103 mg/dL (75-99)
--- NOTE | 2020-01-16 15:12 | XR ---
EXAMINATION TYPE: XR chest 2V DATE OF EXAM: 01/16/2020 COMPARISON: 01/14/2020 HISTORY: Shortness of breath TECHNIQUE: Frontal and lateral views of the chest are obtained. FINDINGS: Scattered senescent parenchymal changes noted. Hyperinflation compatible with COPD. Perihilar and upper lobe infiltrates persist although appear to have improved since prior examination . Findings suggest pneumonia however clinical correlation advised. Heart size is stable. Mediastinal structures are stable and grossly unremarkable. No evidence for hilar prominence. Degenerative changes dorsal spine. IMPRESSION: 1. Perihilar and upper lobe infiltrates persist although appear to have improved since prior examinat ion. Findings suggest pneumonia however clinical correlation advised.
[2020-01-16 16:33] LABS: Glucose,Whole Blood 97 mg/dL (75-99)
[2020-01-16 20:33] LABS: Glucose,Whole Blood 105 mg/dL (75-99)
[2020-01-16] MEDS: AZITHROMYCIN 500 MG TAB PO SCH (21:43)
[2020-01-16] MEDS: LORazepam 2 MG/ML INJ IV PRN (21:46)
--- NOTE | 2020-01-16 22:03 | PN ---
PROGRESS NOTE DATE OF SERVICE: 01/16/2020 REASON FOR FOLLOWUP: Pneumonia. INTERVAL HISTORY: The patient is currently afebrile. The patient is breathing more comfortably. The patient did have a cough, mild to moderate, not bringing up any sputum. No chest pain. No nausea, vomiting. No abdominal pain or diarrhea. PHYSICAL EXAMINATION: Blood pressure 122/83 with pulse of 71, temperature 98.1. He is 95% on 2 L. General description is a middle-aged male lying in bed in no distress. Respiratory system: Unlabored breathing, decreased breath sounds at the bases. No wheeze. Heart S1, S2. Regular rate and rhythm. Abdomen soft, no tenderness. LABS: Hemoglobin is 13.2, white count 15.9, BUN of 22, creatinine 0.76. Blood culture has been negative. DIAGNOSTIC IMPRESSION AND PLAN: Patient admitted to the hospital with increasing shortness of breath with concern for possible pneumonia. The patient's chest x-ray did show improvement and has shown clinical improvement as well. Continue with Rocephin and Zithromax. Try to obtain a sputum and continue supportive care. MMODL / IJN: [id number] /
[2020-01-17] MEDS: LORazepam 2 MG/ML INJ IV PRN (03:27)
[2020-01-17] MEDS: HYDROmorphone 1 MG/ML 1 ML SYRINGE IVP PRN (05:34)
[2020-01-17 07:01] LABS: Glucose,Whole Blood 109 mg/dL (75-99)
--- NOTE | 2020-01-17 07:30 | XR ---
EXAMINATION TYPE: XR chest 1V portable DATE OF EXAM: 01/17/2020 HISTORY: Shortness of breath. COMPARISON: 01/16/2020 TECHNIQUE: Single view of the chest is submitted. FINDINGS: Demonstrated are scattered senescent parenchymal change. Airspace infiltrates are seen throughout bot h lung interiano with interval progression suggested. Correlate clinically and progress studies are advi sed. The heart is stable. Hilar and mediastinal structures are within normal limits. Degenerative changes are seen of the dorsal spine. IMPRESSION: 1. . Airspace infiltrates are seen throughout both lung interiano with interval progression suggested. Correlate clinically and progress studies are advised.
[2020-01-17] MEDS: PANTOPRAZOLE 40 MG TABLET PO SCH (07:59)
[2020-01-17] MEDS: BACLOFEN 10 MG TAB PO SCH ×3 (07:59→20:03)
[2020-01-17] MEDS: CITALOPRAM HYDROBROMIDE 20 MG TAB PO SCH (07:59)
[2020-01-17] MEDS: HEPARIN SODIUM,PORCINE 5,000 UNIT/ML 1 ML VIAL SQ SCH ×2 (07:59→20:02)
[2020-01-17] MEDS: diazePAM 5 MG TAB PO PRN ×3 (08:02→20:02)
[2020-01-17] MEDS: IPRATROPIUM-ALBUTEROL 3 ML NEB INHALATION SCH ×3 (08:41→19:44)
--- NOTE | 2020-01-17 10:04 | P.PN ---
Subjective Progress Note Date: 01/17/20 Principal diagnosis: Shortness of breath and pneumonia Patient continued to be hemodynamic a stable overnight receiving breathing treatment this morning feels improved but still short of breath even with minimal activities in bed using accessory muscles during composition. Patient in mild distress complaining of intractable back pain that it's 12/04 currently after receiving 1 mg of Dilaudid 3 hours ago Objective - Vital Signs Vital signs: Vital Signs Temp 98.7 F 01/17/20 07:00 Pulse 72 01/17/20 08:51 Resp 18 01/17/20 07:00 BP 138/87 01/17/20 07:00 Pulse Ox 97 01/17/20 07:00 Intake & Output 01/16/20 01/17/20 01/17/20 18:59 06:59 18:59 Intake Total 800 Output Total 1900 Balance 800 -1900 Intake: IV 800 cefTRIAXone 2 gm In 800 Sodium Chloride 0.9% 50 ml @ 100 mls/hr IVPB Q24H [facility] Rx#:[id number] Output: Urine 1900 Other: Voiding Method Indwelling Catheter Indwelling Catheter Indwelling Catheter - Exam Gen.: in stated age, mild distress Heart: Normal S1-S2 Lungs: Decreased air entry bilaterally with scattered rhonchi Abdomen: Soft, no tenderness, positive bowel sounds in all 4 quadrant no guarding or rebound Skin: No new rash Psych: Alert and oriented 3 Neuro: No focal deficit - Labs CBC & Chem 7: 01/16/20 08:16 01/16/20 08:16 Labs: Abnormal Lab Results - Last 24 Hours (Table) 01/16/20 01/16/20 01/17/20 Range/Units 11:17 20:31 06:59 POC Glucose (mg/dL) 103 H 105 H 109 H (75-99) mg/dL Microbiology - Last 24 Hours (Table) 01/14/20 22:24 Blood Culture - Preliminary Blood No Growth after 48 hours Assessment and Plan Plan: 1. Acute respiratory failure with hypoxia patient currently on 2 L nasal cannula. 2. Bilateral pneumonia area did patient would be continued on antibiotics we'll follow up on culture results we would continue monitoring hemodynamic closely continue breathing treatment scheduled and as needed continue steroids and aggressive pulmonary hygiene. 3. COPD. Would continue steroids continue aggressive pulmonary hygiene as mentioned above. 4. Chronic pain syndrome patient takes morphine at home with [place]. Patient on 1 mg of Dilaudid every 6 hours I would like to change frequency to 0.5 mg of Dilaudid every 4 hours and patient understands that he needs to be weaned off as soon as possible and go back to his oral regimen to be compliant with the contract with pain management outpatient. 5. Marijuana abuse. Patient counseled regarding marijuana abuse. 6. Plan for discharge based on clinical progress and upon improvement
[2020-01-17] MEDS: HYDROmorphone 0.5 MG/0.5 ML SYRINGE IVP PRN ×4 (10:46→23:06)
[2020-01-17 11:35] LABS: Glucose,Whole Blood 122 mg/dL (75-99)
--- NOTE | 2020-01-17 13:15 | P.PN ---
Subjective Progress Note Date: 01/17/20 Principal diagnosis: Possible atypical pneumonia The patient is seen today 01/16/2020 in follow-up on the regular medical floor. He is awake alert oriented 3 today. More calm and comfortable compared to yesterday. No worsening shortness of breath, cough or congestion. Maintaining O2 saturations in the mid 90s on 2 L/m per nasal cannula. He's been afebrile. Hemodynamically stable. Blood culture reveals no growth to date. White count 15.9. Hemoglobin 13.7. Sodium 139. Potassium 4.4. Creatinine 0.76. He remains on ceftriaxone and azithromycin. The patient is seen today 01/17/2020 in follow-up on the regular medical floor. He is resting comfortably in bed. Awake and alert in no acute distress. Calm and cooperative. He denies any worsening shortness of breath. He continues with a loose nonproductive cough. No fever or chills. Chest x-ray continues to show bilateral airspace infiltrates with interval progression. Blood culture reveals no growth to date. Blood glucose 122. He remains on DuoNeb inhalations, antibiotics in the form of ceftriaxone and azithromycin, heparin for DVT prophylaxis. Objective - Vital Signs Vital signs: Vital Signs Temp 98.7 F 01/17/20 07:00 Pulse 68 01/17/20 12:42 Resp 18 01/17/20 07:00 BP 138/87 01/17/20 07:00 Pulse Ox 97 01/17/20 07:00 Intake & Output 01/16/20 01/17/20 01/17/20 18:59 06:59 18:59 Intake Total 800 Output Total 1900 Balance 800 -1900 Intake: IV 800 cefTRIAXone 2 gm In 800 Sodium Chloride 0.9% 50 ml @ 100 mls/hr IVPB Q24H [facility] Rx#:[id number] Output: Urine 1900 Other: Voiding Method Indwelling Catheter Indwelling Catheter Indwelling Catheter - Exam GENERAL EXAM: Alert, pleasant 59-year-old gentleman, on 2 L nasal cannula, comfortable in no apparent distress. HEAD: Normocephalic. EYES: Normal reaction of pupils, equal size. NOSE: Clear with pink turbinates. THROAT: No erythema or exudates. NECK: No masses, no JVD. CHEST: No chest wall deformity. LUNGS: Equal air entry with few scattered rhonchi, diminished CVS: S1 and S2 normal with no audible murmur, regular rhythm. ABDOMEN: No hepatosplenomegaly, normal bowel sounds, no guarding or rigidity. SPINE: No scoliosis or deformity SKIN: No rashes. Multiple tattoos. CENTRAL NERVOUS SYSTEM: No focal deficits, tone is normal in all 4 extremities. EXTREMITIES: There is no peripheral edema. No clubbing, no cyanosis. Peripheral pulses are intact. - Labs CBC & Chem 7: 01/16/20 08:16 01/16/20 08:16 Labs: Abnormal Lab Results - Last 24 Hours (Table) 01/16/20 01/17/20 01/17/20 Range/Units 20:31 06:59 11:29 POC Glucose (mg/dL) 105 H 109 H 122 H (75-99) mg/dL Microbiology - Last 24 Hours (Table) 01/14/20 22:24 Blood Culture - Preliminary Blood No Growth after 48 hours Assessment and Plan Assessment: Acute hypoxemic respiratory failure secondary to bilateral atypical pneumonia and fluid volume overload Rule out acute withdrawal from either alcohol or narcotics, improved today History of chronic back and neck pain maintained on [place], morphine and baclofen in the outpatient setting Chronic and ongoing tobacco dependence Marijuana use History of depression Plan: The patient was seen and evaluated by Dr. Norwood Chest x-ray reviewed Add prednisone CoVID screen negative Legionella screen negative Continue current antibiotics for now We'll continue to follow I, the cosigning physician, performed a history & physical examination of the patient. Lungs sounds with few scattered rhonchi, diminished. Maintaining good O2 saturations in the 90s on 2 L/m per nasal cannula. I discussed the assessment and plan of care with my nurse practitioner, Brissa Sellers. I attest to the above note as dictated by her.
--- NOTE | 2020-01-17 16:25 | PN ---
PROGRESS NOTE DATE OF SERVICE: 01/17/2020 REASON FOR FOLLOWUP: Pneumonia. INTERVAL HISTORY: Patient is currently afebrile. The patient is breathing more comfortably. The patient denies having any chest pain or shortness of breath. Minimal cough. No nausea, no vomiting. No abdominal pain. No diarrhea. PHYSICAL EXAMINATION: Blood pressure is 138/87 with a pulse of 70, temperature 98.7. He is 97% on 2 L nasal cannula. General description: The patient is a middle-aged male lying in bed in no distress. Respiratory system: Unlabored breathing, decreased intensity of breath sounds. No wheeze. Heart S1, S2. Regular rate and rhythm. Abdomen soft, no tenderness. LABS: No new labs have been obtained today. Chest x-ray repeated this morning shows slight interval progression. DIAGNOSTIC IMPRESSION AND PLAN: Patient admitted to the hospital with difficulty breathing with concern for possible pneumonia. Patient is covered with Rocephin and Zithromax. Clinically has shown some clinical improvement. X-ray shows slight worsening. We will monitor closely. Continue supportive care. MMODL / IJN: [id number] /
[2020-01-17] MEDS: AZITHROMYCIN 500 MG TAB PO SCH (20:02)
[2020-01-18] MEDS: diazePAM 5 MG TAB PO PRN ×2 (02:14→23:10)
[2020-01-18] MEDS: HYDROmorphone 0.5 MG/0.5 ML SYRINGE IVP PRN ×7 (02:14→23:08)
[2020-01-18] MEDS: BACLOFEN 10 MG TAB PO SCH ×3 (08:09→20:18)
[2020-01-18] MEDS: PANTOPRAZOLE 40 MG TABLET PO SCH (08:09)
[2020-01-18] MEDS: HEPARIN SODIUM,PORCINE 5,000 UNIT/ML 1 ML VIAL SQ SCH ×2 (08:10→20:18)
[2020-01-18] MEDS: CITALOPRAM HYDROBROMIDE 20 MG TAB PO SCH (08:10)
[2020-01-18] MEDS: IPRATROPIUM-ALBUTEROL 3 ML NEB INHALATION SCH ×3 (08:48→19:54)
--- NOTE | 2020-01-18 10:04 | P.PN ---
Subjective Progress Note Date: 01/18/20 Principal diagnosis: Shortness of breath and pneumonia Patient had significant improvement over the last 24 hours where he is sitting up in chair in mild distress and less using his accessory muscles and breathing. Patient continued to have good urine output with his Brand catheter in place. Patient is denying chest pain dizziness lightheadedness or blurry vision. Objective - Vital Signs Vital signs: Vital Signs Temp 98.3 F 01/18/20 07:00 Pulse 68 01/18/20 09:01 Resp 18 01/18/20 07:00 BP 147/81 01/18/20 07:00 Pulse Ox 98 01/18/20 07:00 Intake & Output 01/17/20 01/18/20 01/18/20 18:59 06:59 18:59 Intake Total 400 Output Total 550 Balance 400 -550 Intake: Intake, IV Titration 400 Amount cefTRIAXone 2 gm In 400 Sodium Chloride 0.9% 50 ml @ 100 mls/hr IVPB Q24H [facility] Rx#:[id number] Output: Urine 550 Other: Voiding Method Indwelling Catheter Indwelling Catheter Indwelling Catheter - Exam Gen.: in stated age, mild distress Heart: Normal S1-S2 Lungs: Decreased air entry bilaterally with scattered rhonchi Abdomen: Soft, no tenderness, positive bowel sounds in all 4 quadrant no guarding or rebound Skin: No new rash Psych: Alert and oriented 3 Neuro: No focal deficit Genitourinary positive for Brand catheter in place with clear yellow urine - Labs CBC & Chem 7: 01/16/20 08:16 01/16/20 08:16 Labs: Abnormal Lab Results - Last 24 Hours (Table) 01/17/20 Range/Units 11:29 POC Glucose (mg/dL) 122 H (75-99) mg/dL Microbiology - Last 24 Hours (Table) 01/14/20 22:24 Blood Culture - Preliminary Blood No Growth after 72 hours Assessment and Plan Plan: 1. Acute respiratory failure with hypoxia patient currently on 2 L nasal cannula. 2. Bilateral pneumonia area did patient would be continued on antibiotics we'll follow up on culture results we would continue monitoring hemodynamic closely continue breathing treatment scheduled and as needed continue steroids and aggressive pulmonary hygiene. Patient is having some improvement today but still weak and lethargic and I would like to consult with physical therapy 3. COPD. Would continue steroids continue aggressive pulmonary hygiene as mentioned above. 4. Chronic pain syndrome patient takes morphine at home with [place]. Patient on 1 mg of Dilaudid every 6 hours I would like to change frequency to 0.5 mg of Dilaudid every 4 hours and patient understands that he needs to be weaned off as soon as possible and go back to his oral regimen to be compliant with the contract with pain management outpatient. Patient responded well to pain management regimen and we would like to continue weaning off as tolerated. Plan discussed with nursing staff 5. Marijuana abuse. Patient counseled regarding marijuana abuse. 6. Acute urinary retention status post Brand catheter placement Flomax will be increased to 0.4 twice daily we'll monitor side effects and I would like to consult urology problem prior to discharge and follow-up with the recommendation. Patient likely benefit from 7-10 days Brand catheter in place and follow-up with urology outpatient and the low Flomax to start working as etiology most likely related to an the diagnosed benign prostatic hypertrophy
--- NOTE | 2020-01-18 11:03 | P.PN ---
Subjective Progress Note Date: 01/18/20 Principal diagnosis: Possible atypical pneumonia The patient is seen today 01/16/2020 in follow-up on the regular medical floor. He is awake alert oriented 3 today. More calm and comfortable compared to yesterday. No worsening shortness of breath, cough or congestion. Maintaining O2 saturations in the mid 90s on 2 L/m per nasal cannula. He's been afebrile. Hemodynamically stable. Blood culture reveals no growth to date. White count 15.9. Hemoglobin 13.7. Sodium 139. Potassium 4.4. Creatinine 0.76. He remains on ceftriaxone and azithromycin. The patient is seen today 01/17/2020 in follow-up on the regular medical floor. He is resting comfortably in bed. Awake and alert in no acute distress. Calm and cooperative. He denies any worsening shortness of breath. He continues with a loose nonproductive cough. No fever or chills. Chest x-ray continues to show bilateral airspace infiltrates with interval progression. Blood culture reveals no growth to date. Blood glucose 122. He remains on DuoNeb inhalations, antibiotics in the form of ceftriaxone and azithromycin, heparin for DVT prophylaxis. The patient is seen today 01/18/2020 in follow-up on the regular medical floor. He is sitting up in a chair at the bedside. Awake and alert in no acute distress. Breathing easier today compared to yesterday. No worsening cough or congestion. Maintaining good O2 saturation the high 90s on 2 L/m per nasal cannula. He is afebrile. Hemodynamically stable. Blood culture reveals no growth to date. Remains on bronchodilators, ceftriaxone, azithromycin. Objective - Vital Signs Vital signs: Vital Signs Temp 98.3 F 01/18/20 07:00 Pulse 68 01/18/20 09:01 Resp 18 01/18/20 07:00 BP 147/81 01/18/20 07:00 Pulse Ox 98 01/18/20 07:00 Intake & Output 01/17/20 01/18/20 01/18/20 18:59 06:59 18:59 Intake Total 400 Output Total 550 Balance 400 -550 Intake: Intake, IV Titration 400 Amount cefTRIAXone 2 gm In 400 Sodium Chloride 0.9% 50 ml @ 100 mls/hr IVPB Q24H [facility] Rx#:[id number] Output: Urine 550 Other: Voiding Method Indwelling Catheter Indwelling Catheter Indwelling Catheter - Exam GENERAL EXAM: Alert, pleasant 59-year-old gentleman, on 2 L nasal cannula, comfortable in no apparent distress. HEAD: Normocephalic. EYES: Normal reaction of pupils, equal size. NOSE: Clear with pink turbinates. THROAT: No erythema or exudates. NECK: No masses, no JVD. CHEST: No chest wall deformity. LUNGS: Equal air entry with few scattered rhonchi, diminished CVS: S1 and S2 normal with no audible murmur, regular rhythm. ABDOMEN: No hepatosplenomegaly, normal bowel sounds, no guarding or rigidity. SPINE: No scoliosis or deformity SKIN: No rashes. Multiple tattoos. CENTRAL NERVOUS SYSTEM: No focal deficits, tone is normal in all 4 extremities. EXTREMITIES: There is no peripheral edema. No clubbing, no cyanosis. Peripheral pulses are intact. - Labs CBC & Chem 7: 01/16/20 08:16 01/16/20 08:16 Labs: Abnormal Lab Results - Last 24 Hours (Table) 01/17/20 Range/Units 11:29 POC Glucose (mg/dL) 122 H (75-99) mg/dL Microbiology - Last 24 Hours (Table) 01/14/20 22:24 Blood Culture - Preliminary Blood No Growth after 72 hours Assessment and Plan Assessment: Acute hypoxemic respiratory failure secondary to bilateral atypical pneumonia and fluid volume overload Rule out acute withdrawal from either alcohol or narcotics, improved today History of chronic back and neck pain maintained on [place], morphine and baclofen in the outpatient setting Chronic and ongoing tobacco dependence Marijuana use History of depression Plan: The patient was seen and evaluated by Dr. Norwood Continue current antibiotics for now Titrate down the FiO2 as tolerated We'll continue to follow Home once cleared by medicine I, the cosigning physician, performed a history & physical examination of the patient. Lungs sounds with few scattered rhonchi, diminished. Maintaining good O2 saturations in the 90s on 2 L/m per nasal cannula. I discussed the assessment and plan of care with my nurse practitioner, Brissa Sellers. I attest to the above note as dictated by her.
[2020-01-18] MEDS: TAMSULOSIN 0.4 MG CAP.ER.24H PO SCH (20:18)
[2020-01-18] MEDS: AZITHROMYCIN 500 MG TAB PO SCH (20:18)
--- NOTE | 2020-01-19 00:04 | PN ---
PROGRESS NOTE DATE OF SERVICE: 01/18/2020 REASON FOR FOLLOWUP: Pneumonia. INTERVAL HISTORY: The patient is currently afebrile. Patient is breathing more comfortably. The patient denies having any chest pain. He did have some cough, though decreased in intensity, not bringing up any sputum. No nausea, no vomiting. No abdominal pain, no diarrhea. PHYSICAL EXAMINATION: Blood pressure 108/73 with a pulse of 79, temperature of 98. He is 98% on 2 L nasal cannula. General description is a middle-aged male lying in bed in no distress. RESPIRATORY SYSTEM: Unlabored breathing, decreased breath sounds at the bases. No wheeze. HEART: S1, S2. Regular rate and rhythm. ABDOMEN: Soft, no tenderness. LABS: No new labs have been obtained today. Blood culture has been negative. DIAGNOSTIC IMPRESSION AND PLAN: Patient admitted to the hospital with shortness of breath with concern of possible pneumonia. The patient seemed to have shown overall clinical improvement on the Rocephin and Zithromax to continue. Finish therapy with oral antibiotics and monitor his clinical course closely. MMODL / IJN: [id number] /
[2020-01-19] MEDS: HYDROmorphone 0.5 MG/0.5 ML SYRINGE IVP PRN ×5 (02:40→23:21)
[2020-01-19] MEDS: BACLOFEN 10 MG TAB PO SCH ×3 (06:58→21:29)
[2020-01-19] MEDS: PANTOPRAZOLE 40 MG TABLET PO SCH (06:58)
[2020-01-19] MEDS: TAMSULOSIN 0.4 MG CAP.ER.24H PO SCH ×2 (06:58→20:19)
[2020-01-19] MEDS: CITALOPRAM HYDROBROMIDE 20 MG TAB PO SCH (06:58)
[2020-01-19] MEDS: HEPARIN SODIUM,PORCINE 5,000 UNIT/ML 1 ML VIAL SQ SCH ×2 (06:59→20:19)
[2020-01-19] MEDS: IPRATROPIUM-ALBUTEROL 3 ML NEB INHALATION SCH ×3 (09:02→20:18)
--- NOTE | 2020-01-19 11:39 | P.PN ---
Subjective Progress Note Date: 01/19/20 Principal diagnosis: Shortness of breath The patient is seen today 01/16/2020 in follow-up on the regular medical floor. He is awake alert oriented 3 today. More calm and comfortable compared to yesterday. No worsening shortness of breath, cough or congestion. Maintaining O2 saturations in the mid 90s on 2 L/m per nasal cannula. He's been afebrile. Hemodynamically stable. Blood culture reveals no growth to date. White count 15.9. Hemoglobin 13.7. Sodium 139. Potassium 4.4. Creatinine 0.76. He remains on ceftriaxone and azithromycin. The patient is seen today 01/17/2020 in follow-up on the regular medical floor. He is resting comfortably in bed. Awake and alert in no acute distress. Calm and cooperative. He denies any worsening shortness of breath. He continues with a loose nonproductive cough. No fever or chills. Chest x-ray continues to show bilateral airspace infiltrates with interval progression. Blood culture reveals no growth to date. Blood glucose 122. He remains on DuoNeb inhalations, antibiotics in the form of ceftriaxone and azithromycin, heparin for DVT prophylaxis. The patient is seen today 01/18/2020 in follow-up on the regular medical floor. He is sitting up in a chair at the bedside. Awake and alert in no acute distres s. Breathing easier today compared to yesterday. No worsening cough or congestion. Maintaining good O2 saturation the high 90s on 2 L/m per nasal cannula. He is afebrile. Hemodynamically stable. Blood culture reveals no growth to date. Remains on bronchodilators, ceftriaxone, azithromycin. On 01/19/2020 patient seen in follow-up on the regular medical surgical floor, he is awake and alert, he is currently on 1 L of oxygen, his pulse ox is 95%, he is afebrile, denies any difficulty breathing, looks very comfortable at today's exam, he is awake and alert and oriented 3, no altered mentation. No cough or congestion, lung sounds reveal minimal end expiratory wheezes, overall patient is weak, he has not been up out of bed for last couple days. Blood cultures show no growth. He is on combination of azithromycin and Rocephin, breathing treatments, Objective - Vital Signs Vital signs: Vital Signs Temp 97.6 F 01/19/20 07:00 Pulse 84 08/24/20 09:15 Resp 17 01/19/20 07:40 BP 117/74 01/19/20 07:00 Pulse Ox 95 01/19/20 07:20 Intake & Output 01/18/20 01/19/20 01/19/20 18:59 06:59 18:59 Output Total 1000 525 700 Balance -1000 -525 -700 Output: Urine 1000 525 700 Uretheral (Brand) 700 Other: Voiding Method Indwelling Catheter Indwelling Catheter - Exam GENERAL EXAM: Alert, very pleasant, 59-year-old white male, on 1 L of oxygen and the pulse ox of 95% comfortable in no apparent distress. HEAD: Normocephalic/atraumatic. EYES: Normal reaction of pupils, equal size. Conjunctiva pink, sclera white. NOSE: Clear with pink turbinates. THROAT: No erythema or exudates. NECK: No masses, no JVD, no thyroid enlargement, no adenopathy. CHEST: No chest wall deformity. Symmetrical expansion. LUNGS: Equal air entry with no crackles, wheeze, rhonchi or dullness. CVS: Regular rate and rhythm, normal S1 and S2, no gallops, no murmurs, no rubs ABDOMEN: Soft, nontender. No hepatosplenomegaly, normal bowel sounds, no guardi ng or rigidity. EXTREMITIES: No clubbing, no edema, no cyanosis, 2+ pulses and upper and lower extremities. MUSCULOSKELETAL: Muscle strength and tone normal. SPINE: No scoliosis or deformity SKIN: No rashes CENTRAL NERVOUS SYSTEM: Alert and oriented -3. No focal deficits, tone is normal in all 4 extremities. PSYCHIATRIC: Alert and oriented -3. Appropriate affect. Intact judgment and insight. - Labs CBC & Chem 7: 01/16/20 08:16 01/16/20 08:16 Labs: Microbiology - Last 24 Hours (Table) 01/14/20 22:24 Blood Culture - Preliminary Blood No Growth after 96 hours Assessment and Plan Plan: Assessment: #1. Acute hypoxic respiratory failure secondary to bilateral atypical pneumonia and fluid volume overload #2. Rule out acute withdrawal from either alcohol or narcotics, improved #3. History of chronic back and neck pain maintain an [place], morphine and baclofen in the outpatient setting #3. Chronic and ongoing tobacco dependence #4. Marijuana use #5. History of depression Plan: Continue current medical treatment, no worsening dyspnea, FiO2 is being weaned down, obtain home oxygen assessment. Increase activity as tolerated, patient is awaiting physical therapy evaluation for recommendation following his discharge, patient has issues with chronic back pain, and has been very generally weak, otherwise no worsening dyspnea and no cough or congestion, we'll obtain follow- up chest x-ray in the morning. I performed a history & physical examination of the patient and discussed their management with my nurse practitioner, Chaparrita Eubanks. I reviewed the nurse practitioner's note and agree with the documented findings and plan of care. Lung sounds are positive for end expiratory wheezing The findings and the impression was discussed with the patient. I attest to the documentation by the nurse practitioner. Time with Patient: Less than 30
--- NOTE | 2020-01-19 14:55 | XR ---
EXAMINATION TYPE: XR chest 2V DATE OF EXAM: 01/19/2020 COMPARISON: 01/17/2020 INDICATION: Follow-up pneumonia TECHNIQUE: Frontal and lateral views of the chest are obtained. FINDINGS: The heart size is normal. The pulmonary vasculature is normal. There is mild diffuse increased lung markings bilaterally. This has improved from the comparison. Res idual remains. A focal consolidation is not evident.. IMPRESSION: 1. Mild diffuse increased lung markings improving from comparison. Continued follow-up is recommended .
--- NOTE | 2020-01-19 15:21 | PN ---
PROGRESS NOTE DATE OF SERVICE: 01/19/2020 REASON FOR FOLLOWUP: Pneumonia. INTERVAL HISTORY: The patient is currently afebrile. Patient is breathing comfortably on room air. Patient denies having any chest pain. No shortness of breath or cough. No nausea, vomiting, abdominal pain or diarrhea. PHYSICAL EXAMINATION: Blood pressure is 117/74 with a pulse of 87, temperature 97.6. He is 95% on room air. The patient is a 59-year-old male, up in the room in no distress. RESPIRATORY SYSTEM: Unlabored breathing, clear to auscultation anteriorly. Decreased breath sounds at the base. HEART: S1, S2, regular rate and rhythm. ABDOMEN: Soft, no tenderness. LABS: No new labs have been obtained today. DIAGNOSTIC IMPRESSION AND PLAN: Patient with concern for possible pneumonia, possibly atypical on improvement on Zithromax. May finish the course of the oral Levaquin and close outpatient followup. MMODL / IJN: [id number] /
--- NOTE | 2020-01-19 18:59 | P.PN ---
Subjective Progress Note Date: 01/19/20 Patient was seen for a follow-up. Patient's was also present today. Patient's mentation is completely back to normal. Objective - Vital Signs Vital signs: Vital Signs Temp 98.5 F 01/19/20 14:48 Pulse 90 01/19/20 14:48 Resp 18 01/19/20 14:48 BP 101/70 01/19/20 14:48 Pulse Ox 97 01/19/20 14:48 Intake & Output 01/18/20 01/19/20 01/19/20 18:59 06:59 18:59 Output Total 1000 525 744 Balance -1000 -525 -744 Output: Urine 1000 525 700 Uretheral (Brand) 700 Post Void Residual 44 Other: Voiding Method Indwelling Catheter Indwelling Catheter # Voids 2 - Exam Patient is alert and awake, fairly well oriented. Patient knows that it is December 2019 and that he is in [facility]. Speech and language functions are normal. Attention span is slightly decreased. Cranial nerves pupils are round and reactive to light, visual interiano are full, face is symmetric and tongue protrudes the midline. Muscle strength is normal in the arms and legs. Patient still has some shakiness of outstretched hands, suggestive of metabolic dysfunction. - Labs CBC & Chem 7: 01/16/20 08:16 01/16/20 08:16 Labs: Microbiology - Last 24 Hours (Table) 01/14/20 22:24 Blood Culture - Preliminary Blood No Growth after 96 hours Assessment and Plan Assessment: * Altered mental status, likely due to metabolic encephalopathy. Patient's bilateral pneumonia, with subsequent gaseous mismatch may be contributing to the encephalopathy. * Chronic pain with chronic opiate use. * Patient does drink alcohol, but denies heavy drinking. * Tobacco use disorder. Plan: * Patient's delirium/metabolic encephalopathy has completely resolved. Mentation is back to baseline, confirmed by patient's . * Pulmonary on the case managing his pneumonia. * As there is no active neurological issue, we will sign off. Please reconsult neurology if any other concerns.
--- NOTE | 2020-01-19 20:16 | P.GSCN ---
History of Present Illness Consult date: 01/19/20 Reason for Consult: Urinary retention Requesting physician: Bradley Love History of present illness: The patient is a 59-year-old white male admitted with shortness of breath, which she states is much improved. He has an unremarkable urologic history. He denies any prior history of UTIs or urolithiasis. However, for the past month he has experienced a diminished urinary stream with increased difficulty voiding. He currently has an indwelling Brand catheter for urinary retention. I have reviewed the nursing records, but it is difficult to determine how much urine was obtained upon Brand catheter placement. There is a suggestion in the notes that he was straight catheterized with a return of 1200 mL of urine. Review of Systems - Constitutional Denies chills, Denies fever - Respiratory Reports dyspnea - Genitourinary Denies dysuria, Denies hematuria Past Medical History Past Medical History: No Reported History History of Any Multi-Drug Resistant Organisms: None Reported Past Surgical History: Back Surgery Additional Past Surgical History / Comment(s): neck fusion,rt eye surgery, rt hand surgery Past Psychological History: Depression Smoking Status: Current every day smoker Past Alcohol Use History: Occasional Past Drug Use History: Marijuana - Past Family History Mother History Unknown: Yes Medications and Allergies Home Medications Medication Instructions Recorded Confirmed Type Baclofen [Lioresal] 20 mg PO TID 01/14/20 01/14/20 History Citalopram Hydrobromide [CeleXA] 40 mg PO DAILY 01/14/20 01/14/20 History Doxycycline Monohydrate [Monodox] 100 mg PO Q12H 01/14/20 01/14/20 History HYDROcodone/APAP 7.5-325MG [[place] 1 tab PO BID 01/14/20 01/14/20 History 7.5-325] Morphine Sulfate [Morphine Sulfate 15 mg PO BID 01/14/20 01/14/20 History ER] predniSONE See Taper PO DIRECTED 01/14/20 01/14/20 History Allergies Allergy/AdvReac Type Severity Reaction Status Date / Time No Known Allergies Allergy Verified 01/14/20 22:05 Surgical - Exam Vital Signs Temp Pulse Resp BP Pulse Ox 97.5 F L 89 28 H 153/82 96 01/14/20 19:54 01/14/20 19:54 01/14/20 19:54 01/14/20 19:54 01/14/20 19:54 - General well developed, well nourished, no distress - Abdomen Abdomen: soft, non tender, no guarding, no rigid, no rebound - Genitourinary normal penis with no external lesions, testicles non-tender - Rectum Rectum: normal sphincter tone, no masses, other (Prostate approximately 30 g in size, and smooth in consistency.) - Psychiatric oriented to time, oriented to person, oriented to place, speech is normal, memory intact Results - Labs 01/16/20 08:16 01/16/20 08:16 Microbiology - Last 24 Hours (Table) 01/14/20 22:24 Blood Culture - Preliminary Blood No Growth after 96 hours Assessment and Plan (1) Retention of urine, unspecified Current Visit: Yes Status: Acute Code(s): R33.9 - RETENTION OF URINE, UNSPECIFIED SNOMED Code(s): 799638953 Plan: The patient is currently receiving tamsulosin 0.4 mg daily. The Brand catheter is draining clear yellow urine. It would be reasonable to remove the Brand catheter prior to discharge for a trial of void. Postvoid residuals should be checked to assess bladder emptying. I am concerned that he may require a longer course of Brand catheter drainage if indeed 1200 mL of urine was drained from the bladder. If he is unable to void, or empties his bladder incompletely, he should be discharged home on tamsulosin (with a Brand catheter) and follow-up with me as an outpatient. Please notify me if I can be of any further assistance. Time with Patient: Greater than 30
[2020-01-19] MEDS: AZITHROMYCIN 500 MG TAB PO SCH (20:19)
--- NOTE | 2020-01-19 23:05 | P.PN ---
Subjective Progress Note Date: 01/19/20 Principal diagnosis: 49-year-old male one of Dr. Granger patient with past medical history of chronic pain syndrome, chronic tobacco use and chronic marijuana use along with april tse who presented to the hospital on 01/16/2020 after being seen at [facility] emergency department for worsening shortness of breath was diagnosed with right-sided pneumonia prescribed doxycycline a Medrol Dosepak ration brought by his family mostly [place] is complaining of worsening shakiness along with shortness of breath and mental status change his heart rate was 102 pulse ox was mildly low white blood cell was 15.4 with normal platelet count. Liver enzyme were normal lactic acid was quite bit elevated the time with mildly elevated proBNP. X-ray showed mild pulmonary congestion patient had atypical heart failure which is not totally excluded CT angiography of the thoracic and a bdomen which was negative no evidence of aortic aneurysm or dissection, patient looks like was withdrawal from medication or under the effect of medication at the time but was more confused and thrashing all over full catheter was inserted patient start seen urology CAT scan of the brain showed no acute intracranial abnormality mild chronic ethmoid and maxillary sinus disease, Covid 19 was negative. Patient was started on steroids along with Rocephin and Zithromax urine for Legionella came back negative Covid 19 was negative patient has done slightly but better since his O2 sat remain slightly bit low we will probably go home on O2. Patient also had Brand catheter which was taking out today and trial to see 60 to be without a catheter for possible discharge tomorrow. See neurology today a s well and altered mental status most likely due to metabolic encephalopathy with bilateral pneumonia. Patient is doing very well today might be discharged home tomorrow. Objective - Vital Signs Vital signs: Vital Signs Temp 97.6 F 01/19/20 07:00 Pulse 67 01/19/20 07:00 Resp 17 01/19/20 07:40 BP 117/74 01/19/20 07:00 Pulse Ox 95 01/19/20 07:20 Intake & Output 01/18/20 01/19/20 01/19/20 18:59 06:59 18:59 Output Total 1000 525 Balance -1000 -525 Output: Urine 1000 525 Other: Voiding Method Indwelling Catheter Indwelling Catheter - Exam REVIEW OF SYSTEMS Constitutional: No fever, no chills, no night sweats. No weight change. Reports weakness, fatigue. EENT: No headache. No blurred vision or double vision, no loss of vision. No dizziness. No nasal drainage or congestion. No epistaxis. No sore throat. Lungs: Reports mild reports shortness of breath, cough, no sputum production. No wheezing. Cardiovascular: No chest pain, no lower extremity edema. No palpitations. No paroxysmal nocturnal dyspnea. No orthopnea. No lightheadedness or dizziness. No syncopal episodes. Abdominal: No abdominal pain. No nausea, vomiting. No diarrhea. No constipation. No bloody or tarry stools. No loss of appetite. Genitourinary: No dysuria, increased frequency, urgency. No urinary retention. Musculoskeletal: No myalgias. No muscle weakness, no gait dysfunction, no frequent falls. No back pain. No neck pain. Integumentary: No wounds, no lesions. No rash or pruritus. No unusual bruising. No change in hair or nails. Neurologic: No aphasia. No facial droop. No change in mentation. No head injury. No headache. No paralysis. No paresthesia. Psychiatric: No depression. No anxiety. No mood swings. Endocrine: No abnormal blood sugars. No weight change. No excessive sweating or thirst. No cold intolerance. PHYSICAL EXAMINATION Gen: This is a 59-year-old male. He is resting in bed and appears to be in no acute distress. HEENT: Head is atraumatic, normocephalic. Pupils equal, round. Sclerae is anicteric. NECK: Supple. No JVD. No lymphadenopathy. No thyromegaly. LUNGS: Diminished bilaterally but otherwise clear No wheezes or rhonchi. No intercostal retractions. HEART: Regular rate and rhythm. No murmur. ABDOMEN: Soft. Bowel sounds are present. No masses. No tenderness. EXTREMITIES: No pedal edema. No calf tenderness. Dorsalis pedis palpable bilaterally. NEUROLOGICAL: Patient is awake, alert and oriented 3. He is able to move all 4 extremities, no focal neural deficits. - Labs CBC & Chem 7: 01/16/20 08:16 01/16/20 08:16 Labs: Microbiology - Last 24 Hours (Table) 01/14/20 22:24 Blood Culture - Preliminary Blood No Growth after 96 hours Assessment and Plan Assessment: 1. Dyspnea with possible bilateral pneumonia, possible mild exacerbation of COPD. Continue azithromycin, ceftriaxone, DuoNeb treatments 3 times daily and as needed, patient received 1 dose of Solu-Medrol 125 mg once. Pulmonary medicine consult appreciated. Pro-calcitonin, Legionella and sputum culture ordered. 2. Metabolic encephalopathy of unclear etiology, possibly related to pneumonia, concern for infectious process and medication induced, withdrawal induced. Consult with infectious disease and neurology appreciated. 3. Chronic pain syndrome. Patient follows with pain management with Dr. Corea with home medication of morphine 15 mg twice daily and [place] 7.5 twice daily. Continue baclofen 20 mg 3 times daily and Dilaudid added 1 mg IV push every 6 hours as needed for pain. 4. Tobacco use and dependence. Nicotine patch. Doing slightly but better. 5. Marijuana use. Might have gone through some withdrawal symptom and improved. 6 urinary retention: Had Brand catheter and was taking out today see if patient is able to void on his own. 7. GI prophylaxis. Protonix. 8. DVT prophylaxis. Heparin subcu. CODE STATUS: Full code. Discharge planning: Most likely discharge home tomorrow.
[2020-01-20 02:22] VITALS: TEMP 98.3
[2020-01-20] MEDS: HYDROmorphone 0.5 MG/0.5 ML SYRINGE IVP PRN (03:54)
[2020-01-20 06:53] VITALS: BP 115/76; RESP 14
[2020-01-20] MEDS: IPRATROPIUM-ALBUTEROL 3 ML NEB INHALATION SCH ×3 (07:52→11:58)
[2020-01-20 08:20] LABS: ALT 50 U/L (4-49); AST 30 U/L (17-59); African American GFR (CKD) >90 (>60 ml/min/1.73 sqM); Albumin 3.2 g/dL (3.5-5.0); Alkaline Phosphatase 71 U/L (38-126); Anion Gap 7 mmol/L; Blood Urea Nitrogen 10 mg/dL (9-20); Calcium 8.5 mg/dL (8.4-10.2); Carbon Dioxide 28 mmol/L (22-30); Chloride 103 mmol/L (98-107); Glucose 85 mg/dL (74-99); Non-African American GFR(CKD) >90 (>60 ml/min/1.73 sqM); Potassium 3.6 mmol/L (3.5-5.1); Sodium 138 mmol/L (137-145); Total Bilirubin 0.5 mg/dL (0.2-1.3); Total Protein 5.6 g/dL (6.3-8.2)
[2020-01-20 08:22] LABS: Basophils % (A) 1 %; Eosinophils # (A) 0.2 k/uL (0-0.7); Eosinophils % (A) 3 %; HCT 40.7 % (39.0-53.0); HGB 13.1 gm/dL (13.0-17.5); Lymphocytes # (A) 1.4 k/uL (1.0-4.8); Lymphocytes % (A) 23 %; MCH 29.7 pg (25.0-35.0); MCHC 32.3 g/dL (31.0-37.0); MCV 92.2 fL (80.0-100.0); Mean Platelet Volume 8.1; Monocytes # (A) 0.6 k/uL (0-1.0); Monocytes % (A) 10 %; Neutrophils # (A) 3.9 k/uL (1.3-7.7); Neutrophils % (A) 62 %; Platelet Count 246 k/uL (150-450); RBC 4.42 m/uL (4.30-5.90); RDW 12.2 % (11.5-15.5); WBC 6.3 k/uL (3.8-10.6)
[2020-01-20] MEDS ORDERED: HYDROcodone/APAP 7.5-325MG 1 EACH TAB PO ONE (08:42)
[2020-01-20] MEDS: TAMSULOSIN 0.4 MG CAP.ER.24H PO SCH (09:20)
[2020-01-20] MEDS: HEPARIN SODIUM,PORCINE 5,000 UNIT/ML 1 ML VIAL SQ SCH (09:20)
[2020-01-20] MEDS: CITALOPRAM HYDROBROMIDE 20 MG TAB PO SCH (09:21)
[2020-01-20] MEDS: PANTOPRAZOLE 40 MG TABLET PO SCH (09:21)
[2020-01-20] MEDS: BACLOFEN 10 MG TAB PO SCH (09:21)
--- NOTE | 2020-01-20 09:21 | XR ---
EXAMINATION TYPE: XR chest 1V portable DATE OF EXAM: 01/20/2020 CLINICAL HISTORY: Difficulty breathing recent pneumonia progress study. TECHNIQUE: Single AP portable upright view of the chest is obtained. COMPARISON: Chest x-ray from one day earlier and older studies. CT 6 days ago. FINDINGS: No new suspicious focal airspace opacity, pleural effusion, or pneumothorax is clearly lyub[place] ntified. Bilateral areas of increased opacity on January 13 show interval improvement. Cardiac silhoue tte size is stable and upper limits of normal. Partial visualization of surgical change in the cervic al spine noted. IMPRESSION: No new focal infiltrate. Marked improvement in multifocal bilateral infiltrates since Dec ust .
--- NOTE | 2020-01-20 09:57 | P.DS ---
Providers Date of admission: 01/14/20 22:49 Expected date of discharge: 01/20/20 Attending physician: Bradley Love Consults: 01/15/20 03:08 Consult Physician Routine Consulting Provider: Rui Norwood Consult Reason/Comments: pneumonia Do you want consulting provider notified?: Yes, Notify in am 01/15/20 08:53 Consult Physician Routine Consulting Provider: Leonard Raoms Consult Reason/Comments: encephalopathy Do you want consulting provider notified?: Yes 01/15/20 08:56 Consult Physician Routine Consulting Provider: Madhu Linder Consult Reason/Comments: encephalopathy, meningitis, encephalitis Do you want consulting provider notified?: Yes 01/18/20 09:26 Consult Physician Routine Consulting Provider: Thiago Ruiz Consult Reason/Comments: urinary retention Do you want consulting provider notified?: Yes Primary care physician: Joseph Granger MD Hospital Course: 49-year-old male one of Dr. Granger patient with past medical history of chronic pain syndrome, chronic tobacco use and chronic marijuana use along with depression who presented to the hospital on 01/16/2020 after being seen at [facility] emergency department for worsening shortness of breath was diagnosed with right-sided pneumonia prescribed doxycycline a Medrol Dosepak ration brought by his family mostly [place] is complaining of worsening shakiness along with shortness of breath and mental status change his heart rate was 102 pulse ox was mildly low white blood cell was 15.4 with normal platelet count. Liver enzyme were normal lactic acid was quite bit elevated the time with mildly elevated proBNP. X-ray showed mild pulmonary congestion patient had atypical heart failure which is not totally excluded CT angiography of the thoracic and abdomen which was negative no evidence of aortic aneurysm or dissection, patient looks like was withdrawal from medication or under the effect of medication at the time but was more confused and thrashing all over full catheter was inserted patient start seen urology CAT scan of the brain showed no acute intracranial abnormality mild chronic ethmoid and maxillary sinus disease, Covid 19 was negative. Patient was started on steroids along with Rocephin and Zithromax urine for Legionella came back negative Covid 19 was negative patient has done slightly but better since his O2 sat remain slightly bit low we will probably go home on O2. Patient also had Brand catheter which was taking out today and trial to see 60 to be without a catheter for possible discharge tomorrow. See neurology today as well and altered mental status most likely due to metabolic encephalopathy with bilateral pneumonia. Patient is doing very well and will be discharged home today. Assessment: 1. Dyspnea with possible bilateral pneumonia, possible mild exacerbation of COPD. 2. Metabolic encephalopathy 3. Chronic pain syndrome. 4. Tobacco use and dependence. 5. Marijuana use. 6 urinary retention: Discharge plan: Home with self care Impression and plan of care have been directed as dictated by the signing physician. Lauryn Das nurse practitioner acting as scribe for signing physician. Patient Condition at Discharge: Stable Plan - Discharge Summary Discharge Rx Participant: Yes New Discharge Prescriptions: New Ipratropium-Albuterol Nebulize [Duoneb 0.5 mg-3 mg/3 ml Soln] 3 ml INHALATION RT-QID #120 ml Tamsulosin [Flomax] 0.4 mg PO BID #30 cap.er.24h Pantoprazole [Protonix] 40 mg PO DAILY #30 tablet. Azithromycin [Zithromax] 500 mg PO DAILY@2100 #5 tab Continue Doxycycline Monohydrate [Monodox] 100 mg PO Q12H Morphine Sulfate [Morphine Sulfate ER] 15 mg PO BID HYDROcodone/APAP 7.5-325MG [Circle 7.5-325] 1 tab PO BID Baclofen [Lioresal] 20 mg PO TID predniSONE See Taper PO DIRECTED Citalopram Hydrobromide [CeleXA] 40 mg PO DAILY Discharge Medication List Baclofen [Lioresal] 20 mg PO TID 01/14/20 [History] Citalopram Hydrobromide [CeleXA] 40 mg PO DAILY 01/14/20 [History] Doxycycline Monohydrate [Monodox] 100 mg PO Q12H 01/14/20 [History] HYDROcodone/APAP 7.5-325MG [Circle 7.5-325] 1 tab PO BID 01/14/20 [History] Morphine Sulfate [Morphine Sulfate ER] 15 mg PO BID 01/14/20 [History] predniSONE See Taper PO DIRECTED 01/14/20 [History] Azithromycin [Zithromax] 500 mg PO DAILY@2100 #5 tab 01/20/20 [Rx] Ipratropium-Albuterol Nebulize [Duoneb 0.5 mg-3 mg/3 ml Soln] 3 ml INHALATION RT-QID #120 ml 01/20/20 [Rx] Pantoprazole [Protonix] 40 mg PO DAILY #30 tablet.dr 01/20/20 [Rx] Tamsulosin [Flomax] 0.4 mg PO BID #30 cap.er.24h 01/20/20 [Rx] Follow up Appointment(s)/Referral(s): Joseph Granger MD [Primary Care Provider] - 01/21/20 1:00 pm Activity/Diet/Wound Care/Special Instructions: Patient requires a nebulizer to manage his COPD. Patient requires a rolling walker to assist with impaired mobility and shortness of breath related to COPD. Discharge Disposition: HOME SELF-CARE
--- NOTE | 2020-01-20 11:25 | P.PN ---
Subjective Progress Note Date: 01/20/20 Principal diagnosis: Shortness of breath The patient is seen today 01/16/2020 in follow-up on the regular medical floor. He is awake alert oriented 3 today. More calm and comfortable compared to yesterday. No worsening shortness of breath, cough or congestion. Maintaining O2 saturations in the mid 90s on 2 L/m per nasal cannula. He's been afebrile. Hemodynamically stable. Blood culture reveals no growth to date. White count 15.9. Hemoglobin 13.7. Sodium 139. Potassium 4.4. Creatinine 0.76. He remains on ceftriaxone and azithromycin. The patient is seen today 01/17/2020 in follow-up on the regular medical floor. He is resting comfortably in bed. Awake and alert in no acute distress. Calm and cooperative. He denies any worsening shortness of breath. He continues with a loose nonproductive cough. No fever or chills. Chest x-ray continues to show bilateral airspace infiltrates with interval progression. Blood culture reveals no growth to date. Blood glucose 122. He remains on DuoNeb inhalations, antibiotics in the form of ceftriaxone and azithromycin, heparin for DVT prophylaxis. The patient is seen today 01/18/2020 in follow-up on the regular medical floor. He is sitting up in a chair at the bedside. Awake and alert in no acute distres s. Breathing easier today compared to yesterday. No worsening cough or congestion. Maintaining good O2 saturation the high 90s on 2 L/m per nasal cannula. He is afebrile. Hemodynamically stable. Blood culture reveals no growth to date. Remains on bronchodilators, ceftriaxone, azithromycin. On 01/19/2020 patient seen in follow-up on the regular medical surgical floor, he is awake and alert, he is currently on 1 L of oxygen, his pulse ox is 95%, he is afebrile, denies any difficulty breathing, looks very comfortable at today's exam, he is awake and alert and oriented 3, no altered mentation. No cough or congestion, lung sounds reveal minimal end expiratory wheezes, overall patient is weak, he has not been up out of bed for last couple days. Blood cultures show no growth. He is on combination of azithromycin and Rocephin, breathing treatments, On 01/20/2020 patient seen in follow-up on medical surgical floor. He is calm and comfortable, he is resting comfortably in bed, he's had no acute events overnight, he has no specific complaints, he is currently on room air, his pulse ox is 97%, lung sounds reveal some crackles at bilateral posterior bases, today's chest x-ray shows no new focal infiltrates, and marked improvement in multifocal bilateral infiltrates since December 2018. His had no fever or chills, no altered mentation, no cough or congestion, today's labs have been reviewed, showing CBC within normal limits, electrolytes are within normal limits, BUN is 10 and creatinine 0.61 Objective - Vital Signs Vital signs: Vital Signs Temp 98.3 F 01/20/20 06:52 Pulse 80 01/20/20 08:02 Resp 14 01/20/20 06:52 BP 115/76 01/20/20 06:52 Pulse Ox 96 01/20/20 06:52 Intake & Output 01/19/20 01/20/20 01/20/20 18:59 06:59 18:59 Output Total 744 550 Balance -744 -550 Output: Urine 700 550 Uretheral (Brand) 700 Post Void Residual 44 Other: Voiding Method Indwelling Catheter # Voids 2 - Exam GENERAL EXAM: Alert, very pleasant, 59-year-old white male, on room air with a pulse ox 95% comfortable in no apparent distress. HEAD: Normocephalic/atraumatic. EYES: Normal reaction of pupils, equal size. Conjunctiva pink, sclera white. NOSE: Clear with pink turbinates. THROAT: No erythema or exudates. NECK: No masses, no JVD, no thyroid enlargement, no adenopathy. CHEST: No chest wall deformity. Symmetrical expansion. LUNGS: Equal air entry with no crackles, wheeze, rhonchi or dullness. CVS: Regular rate and rhythm, normal S1 and S2, no gallops, no murmurs, no rubs ABDOMEN: Soft, nontender. No hepatosplenomegaly, normal bowel sounds, no guarding or rigidity. EXTREMITIES: No clubbing, no edema, no cyanosis, 2+ pulses and upper and lower extremities. MUSCULOSKELETAL: Muscle strength and tone normal. SPINE: No scoliosis or deformity SKIN: No rashes CENTRAL NERVOUS SYSTEM: Alert and oriented -3. No focal deficits, tone is normal in all 4 extremities. PSYCHIATRIC: Alert and oriented -3. Appropriate affect. Intact judgment and insight. - Labs CBC & Chem 7: 01/20/20 07:06 01/20/20 07:06 Labs: Abnormal Lab Results - Last 24 Hours (Table) 01/20/20 Range/Units 07:06 Creatinine 0.61 L (0.66-1.25) mg/dL ALT 50 H (4-49) U/L Total Protein 5.6 L (6.3-8.2) g/dL Albumin 3.2 L (3.5-5.0) g/dL Microbiology - Last 24 Hours (Table) 01/14/20 22:24 Blood Culture - Preliminary Blood No Growth after 120 hours Assessment and Plan Plan: Assessment: #1. Acute hypoxic respiratory failure secondary to bilateral atypical pneumonia and fluid volume overload, improved, today's chest x-ray shows no new focal infiltrates, room air pulse ox is 96%, patient has been afebrile #2. Rule out acute withdrawal from either alcohol or narcotics, improved #3. History of chronic back and neck pain maintain an [place], morphine and baclofen in the outpatient setting #3. Chronic and ongoing tobacco dependence #4. Marijuana use #5. History of depression Plan: Follow-up chest x-ray today has been reviewed, showing no focal infiltrates, clinically patient has been stable, room air pulse ox is 96%, no complaints of dyspnea, increase activity as tolerated, his been afebrile, no leukocytosis and today's labs. Stable for discharge home today from pulmonary perspective, outpatient follow-up with Dr. Norwood or Brissa Sellers in the office in 7-10 days. I performed a history & physical examination of the patient and discussed their management with my nurse practitioner, Chaparrita Eubanks. I reviewed the nurse practitioner's note and agree with the documented findings and plan of care. Lung sounds are positive for end expiratory wheezing The findings and the impression was discussed with the patient. I attest to the documentation by the nurse practitioner. Time with Patient: Less than 30
--- NOTE | 2020-01-20 11:41 | PN ---
PROGRESS NOTE DATE OF SERVICE: 01/20/2020 REASON FOR FOLLOWUP: Pneumonia. INTERVAL HISTORY: Patient was seen on rounds this morning. The patient has been afebrile. The patient is breathing comfortably. Denies having any chest pain. Minimal cough. No nausea, no vomiting. No abdominal pain, no diarrhea. PHYSICAL EXAMINATION: Blood pressure 115/76, pulse of 84, temperature 98.2, he is 96% on room air. General description is a middle-aged male, lying in bed in no distress. RESPIRATORY SYSTEM: Unlabored breathing, clear to auscultation with crackles. HEART: S1, S2. Regular rate and rhythm. ABDOMEN: Soft, no tenderness. LABS: Hemoglobin 13.1, white count 6.3, BUN of 10, creatinine 0.61. Chest x-ray this morning shows overall improvement with no new infiltrate. DIAGNOSTIC IMPRESSION AND PLAN: Patient admitted to the hospital with shortness of breath, possible pneumonia, possibly atypical. Overall improvement on Zithromax to finish therapy with oral zithromax for 5 days and close outpatient followup. MMODL / IJN: [id number] / MTDD
[2020-01-20 12:06] VITALS: PULSE 80
== END 2020-01-20 12:15 | disposition home or self-care (01) | DRG 193 ==
LOC: EC 19:50 → 4SSUR 22:49
PROVIDERS: ADMIT Internal Medicine Geriatric Medicine; ATTEND Internal Medicine Geriatric Medicine
DX: J18.9 Pneumonia, unspecified organism (principal); G93.41 Metabolic encephalopathy; J96.01 Acute respiratory failure with hypoxia; E87.2 Acidosis; J44.1 Chronic obstructive pulmonary disease with (acute) exacerbation; J44.0 Chronic obstructive pulmonary disease with (acute) lower respiratory infection; Z20.828 Contact with and (suspected) exposure to other viral communicable diseases; E86.0 Dehydration; F17.210 Nicotine dependence, cigarettes, uncomplicated; R40.2362 Coma scale, best motor response, obeys commands, at arrival to emergency department; R40.2142 Coma scale, eyes open, spontaneous, at arrival to emergency department; R40.2252 Coma scale, best verbal response, oriented, at arrival to emergency department; Z87.01 Personal history of pneumonia (recurrent); F32.9 Major depressive disorder, single episode, unspecified; F41.9 Anxiety disorder, unspecified; J32.0 Chronic maxillary sinusitis; J32.2 Chronic ethmoidal sinusitis; G89.4 Chronic pain syndrome; N40.1 Benign prostatic hyperplasia with lower urinary tract symptoms; R33.8 Other retention of urine; E87.70 Fluid overload, unspecified; Z79.891 Long term (current) use of opiate analgesic; Z79.899 Other long term (current) drug therapy; Z98.1 Arthrodesis status; Z98.890 Other specified postprocedural states; Z82.49 Family history of ischemic heart disease and other diseases of the circulatory system
CPT/HCPCS: 36415; 70450; 71045; 71046; 71275; 74174; 80048; 80053; 80306; 80320; 82550; 83605; 83735; 83880; 84145; 84484; 85025; 85379; 85610; 85730; 86140; 87040; 87449; 93005; 94640; 94760; 96361; 96374; 96375; 99291

== ENCOUNTER 2020-04-13 08:57 | Emergency (ER) | payer OTHER ==
[2020-04-13] MEDS ORDERED: SODIUM CHLORIDE 0.9% 1,000 ML IV STA (09:17)
[2020-04-13] MEDS ORDERED: ONDANSETRON 4 MG/2 ML VIAL IVP STA (09:18)
--- NOTE | 2020-04-13 09:20 | ED ---
General Adult HPI - General Source: patient, RN notes reviewed Mode of arrival: wheelchair Limitations: no limitations <Jeanmarie Dhaliwal - Last Filed: 04/13/20 10:53> <Krissy Lyman - Last Filed: 04/17/20 14:43> - General Chief complaint: Shortness of Breath Stated complaint: Difficulty breathing Time Seen by Provider: 04/13/20 09:08 - History of Present Illness Initial comments: This a 60-year-old male presents emergency Department chief complaint of nausea vomiting shortness of breath. Patient states he did not feel well yesterday states that his shortness breath has improved at this time. He does have a h istory of COPD states that he still currently smokes and occasionally uses oxygen at home. He states that his been coughing he's had some nausea and phlegm spit up. Patient has no localized abdominal pain. Patient reports no fevers or chills. Patient states he was admitted recently for pneumonia. he had negative covid test at that time. Patient denies any sick contacts. No chest pain. (Jeanmarie Dhaliwal) - Related Data Home Medications Medication Instructions Recorded Confirmed Baclofen [Lioresal] 20 mg PO TID 01/14/20 04/13/20 Citalopram Hydrobromide [CeleXA] 40 mg PO DAILY 01/14/20 04/13/20 Acetaminophen Tab [Tylenol Tab] 500 mg PO Q6H PRN 04/13/20 04/13/20 Gabapentin [Neurontin] See Taper PO DIRECTED 04/13/20 04/13/20 HYDROcodone/APAP 5-325MG [[place] 1 tab PO BID PRN 04/13/20 04/13/20 5-325] Ipratropium-Albuterol Nebulize 3 ml INHALATION RT-QID PRN 04/13/20 04/13/20 [Duoneb 0.5 mg-3 mg/3 ml Soln] Morphine Sulfate [Morphine Sulfate 30 mg PO BID PRN 04/13/20 04/13/20 ER] Nicotine 14Mg/24Hr Patch [Habitrol 1 patch TRANSDERM DAILY 04/13/20 04/13/20 14Mg/24Hr Patch] Tamsulosin [Flomax] 0.4 mg PO DAILY 04/13/20 04/13/20 Previous Rx's Medication Instructions Recorded Pantoprazole [Protonix] 40 mg PO DAILY #30 tablet. 01/20/20 Allergies Allergy/AdvReac Type Severity Reaction Status Date / Time No Known Allergies Allergy Verified 04/13/20 10:00 Review of Systems ROS Other: All systems not noted in ROS Statement are negative. <Jeanmarie Dhaliwal - Last Filed: 04/13/20 10:53> ROS Other: All systems not noted in ROS Statement are negative. <Krissy Lyman - Last Filed: 04/17/20 14:43> ROS Statement: Those systems with pertinent positive or pertinent negative responses have been documented in the HPI. Past Medical History Past Medical History: Pneumonia Additional Past Medical History / Comment(s): back pain History of Any Multi-Drug Resistant Organisms: None Reported Past Surgical History: Back Surgery Additional Past Surgical History / Comment(s): neck fusion,rt eye surgery, rt hand surgery Past Psychological History: Depression Smoking Status: Current every day smoker Past Alcohol Use History: Occasional Past Drug Use History: Marijuana - Past Family History Mother History Unknown: Yes <Jeanmarie Dhaliwal - Last Filed: 04/13/20 10:53> General Exam Limitations: no limitations General appearance: alert, in no apparent distress Head exam: Present: atraumatic, normocephalic, normal inspection Eye exam: Present: normal appearance, PERRL, EOMI. Absent: scleral icterus, conjunctival injection, periorbital swelling ENT exam: Present: normal exam, normal oropharynx, mucous membranes moist, TM's normal bilaterally Neck exam: Present: normal inspection, full ROM. Absent: tenderness, meningismus, lymphadenopathy Respiratory exam: Present: normal lung sounds bilaterally. Absent: respiratory distress, wheezes, rales, rhonchi, stridor Cardiovascular Exam: Present: regular rate, normal rhythm, normal heart sounds. Absent: systolic murmur, diastolic murmur, rubs, gallop, clicks GI/Abdominal exam: Present: soft, normal bowel sounds. Absent: distended, tenderness, guarding, rebound, rigid Neurological exam: Present: alert, oriented X3, CN II-XII intact Skin exam: Present: warm, dry, intact, normal color. Absent: rash <Jeanmarie Dhaliwal - Last Filed: 04/13/20 10:53> Course Vital Signs 04/13/20 04/13/20 09:04 10:29 Temperature 99.0 F 98.5 F Pulse Rate 94 74 Respiratory 20 18 Rate Blood Pressure 123/86 123/88 O2 Sat by Pulse 94 L 100 Oximetry Medical Decision Making - Lab Data Result diagrams: 04/13/20 09:28 04/13/20 09:28 - EKG Data -: EKG Interpreted by Me <Jeanmarie Dhaliwal - Last Filed: 04/13/20 10:53> - Lab Data Result diagrams: 04/13/20 09:28 04/13/20 09:28 <Krissy Lyman - Last Filed: 04/17/20 14:43> - Medical Decision Making Chest x-ray reviewed, compared to prior which do not show any significant changes. Patient's labs unremarkable. Patient states he has no shortness breath headache, no chest pain and he does feel improved after some mild fluid hydration and Zofran. Patient will be discharged in stable condition he is advised to have close follow-up return for any worsening change in symptoms. Patient agrees with this plan.I counseled the patient for smoking cessation for greater than 3 minutes (Jeanmarie Dhaliwal) I was available for consultation in the emergency department. The history and physical exam were done by the midlevel provider. I was consulted for this patients care. I reviewed the case with the midlevel provider and based on their presentation of the patient, I agree with the assessment, medical decision making and plan of care as documented. Chart was dictated using [employer] dictation software. Attempts were made to correct any dictation errors however some typographical errors may persist. Patient was seen during a national state of emergency due to the Covid-19 pandemic. (Krissy Lyman) - Lab Data Lab Results 04/13/20 04/13/20 04/13/20 Range/Units 09:28 09:28 09:28 WBC 15.7 H (3.8-10.6) k/uL RBC 4.44 (4.30-5.90) m/uL Hgb 13.3 (13.0-17.5) gm/dL Hct 39.2 (39.0-53.0) % MCV 88.3 (80.0-100.0) fL MCH 29.8 (25.0-35.0) pg MCHC 33.8 (31.0-37.0) g/dL RDW 13.3 (11.5-15.5) % Plt Count 217 (150-450) k/uL MPV 7.6 Neutrophils % 94 % Lymphocytes % 3 % Monocytes % 3 % Eosinophils % 0 % Basophils % 0 % Neutrophils # 14.7 H (1.3-7.7) k/uL Lymphocytes # 0.4 L (1.0-4.8) k/uL Monocytes # 0.5 (0-1.0) k/uL Eosinophils # 0.0 (0-0.7) k/uL Basophils # 0.0 (0-0.2) k/uL PT 9.8 (9.0-12.0) sec INR 0.9 (<1.2) APTT 27.4 (22.0-30.0) sec Sodium 137 (137-145) mmol/L Potassium 4.1 (3.5-5.1) mmol/L Chloride 106 (98-107) mmol/L Carbon Dioxide 22 (22-30) mmol/L Anion Gap 9 mmol/L BUN 17 (9-20) mg/dL Creatinine 0.87 (0.66-1.25) mg/dL Est GFR (CKD-EPI)AfAm >90 (>60 ml/min/1.73 sqM) Est GFR (CKD-EPI)NonAf >90 (>60 ml/min/1.73 sqM) Glucose 135 H (74-99) mg/dL Plasma Lactic Acid Pierre (0.7-2.0) mmol/L Calcium 9.5 (8.4-10.2) mg/dL Magnesium 2.1 (1.6-2.3) mg/dL Total Bilirubin 0.9 (0.2-1.3) mg/dL AST 27 (17-59) U/L ALT 13 (4-49) U/L Alkaline Phosphatase 95 (38-126) U/L Troponin I (0.000-0.034) ng/mL NT-Pro-B Natriuret Pep pg/mL Total Protein 7.4 (6.3-8.2) g/dL Albumin 4.5 (3.5-5.0) g/dL 04/13/20 04/13/20 04/13/20 Range/Units 09:28 09:28 09:28 WBC (3.8-10.6) k/uL RBC (4.30-5.90) m/uL Hgb (13.0-17.5) gm/dL Hct (39.0-53.0) % MCV (80.0-100.0) fL MCH (25.0-35.0) pg MCHC (31.0-37.0) g/dL RDW (11.5-15.5) % Plt Count (150-450) k/uL MPV Neutrophils % % Lymphocytes % % Monocytes % % Eosinophils % % Basophils % % Neutrophils # (1.3-7.7) k/uL Lymphocytes # (1.0-4.8) k/uL Monocytes # (0-1.0) k/uL Eosinophils # (0-0.7) k/uL Basophils # (0-0.2) k/uL PT (9.0-12.0) sec INR (<1.2) APTT (22.0-30.0) sec Sodium (137-145) mmol/L Potassium (3.5-5.1) mmol/L Chloride (98-107) mmol/L Carbon Dioxide (22-30) mmol/L Anion Gap mmol/L BUN (9-20) mg/dL Creatinine (0.66-1.25) mg/dL Est GFR (CKD-EPI)AfAm (>60 ml/min/1.73 sqM) Est GFR (CKD-EPI)NonAf (>60 ml/min/1.73 sqM) Glucose (74-99) mg/dL Plasma Lactic Acid Pirere 1.5 (0.7-2.0) mmol/L Calcium (8.4-10.2) mg/dL Magnesium (1.6-2.3) mg/dL Total Bilirubin (0.2-1.3) mg/dL AST (17-59) U/L ALT (4-49) U/L Alkaline Phosphatase (38-126) U/L Troponin I <0.012 (0.000-0.034) ng/mL NT-Pro-B Natriuret Pep 1400 pg/mL Total Protein (6.3-8.2) g/dL Albumin (3.5-5.0) g/dL - EKG Data EKG Comments: EKG performed at 9:20 normal sinus rhythm rate of 80 OH 130 QRS 80 QT/QTC 390/459 (Jeanmarie Dhaliwal) Disposition Is patient prescribed a controlled substance at d/c from ED?: No Time of Disposition: 10:57 <Jeanmarie Dhaliwal - Last Filed: 04/13/20 10:53> <Krissy Lyman - Last Filed: 04/17/20 14:43> Clinical Impression: COPD (chronic obstructive pulmonary disease), Nausea & vomiting Disposition: HOME SELF-CARE Condition: Stable Instructions (If sedation given, give patient instructions): COPD (Chronic Obstructive Pulmonary Disease) (ED) Additional Instructions: Please return to the Emergency Department if symptoms worsen or any other concerns. Referrals: Joseph Granger MD [Primary Care Provider] - 1-2 days
[2020-04-13 10:08] LABS: ALT 13 U/L (4-49); AST 27 U/L (17-59); African American GFR (CKD) >90 (>60 ml/min/1.73 sqM); Albumin 4.5 g/dL (3.5-5.0); Alkaline Phosphatase 95 U/L (38-126); Anion Gap 9 mmol/L; Blood Urea Nitrogen 17 mg/dL (9-20); Calcium 9.5 mg/dL (8.4-10.2); Carbon Dioxide 22 mmol/L (22-30); Chloride 106 mmol/L (98-107); Glucose 135 mg/dL (74-99); Magnesium 2.1 mg/dL (1.6-2.3); Non-African American GFR(CKD) >90 (>60 ml/min/1.73 sqM); Potassium 4.1 mmol/L (3.5-5.1); Sodium 137 mmol/L (137-145); Total Bilirubin 0.9 mg/dL (0.2-1.3); Total Protein 7.4 g/dL (6.3-8.2)
--- NOTE | 2020-04-13 10:13 | XR ---
EXAMINATION TYPE: XR chest 2V DATE OF EXAM: 04/13/2020 COMPARISON: Prior chest x-ray dated 02/05/2020 HISTORY: Ammonia TECHNIQUE: Frontal and lateral views of the chest are obtained. FINDINGS: There is no focal air space opacity, pleural effusion, or pneumothorax seen. The cardiac silhouette size is within normal limits. The osseous structures show postop changes in the cervical spine, there is a slight spinal curvature, thoracic spondylosis is present, patient slightly rotated , there may be mild spinal curvature. Interstitium mildly increased. There is eventration of the righ t hemidiaphragm. IMPRESSION: Correlate to exclude a component of early interstitial edema.
[2020-04-13 10:14] LABS: Basophils % (A) 0 %; Eosinophils % (A) 0 %; HCT 39.2 % (39.0-53.0); HGB 13.3 gm/dL (13.0-17.5); Lymphocytes # (A) 0.4 k/uL (1.0-4.8); Lymphocytes % (A) 3 %; MCH 29.8 pg (25.0-35.0); MCHC 33.8 g/dL (31.0-37.0); MCV 88.3 fL (80.0-100.0); Mean Platelet Volume 7.6; Monocytes # (A) 0.5 k/uL (0-1.0); Monocytes % (A) 3 %; Neutrophils # (A) 14.7 k/uL (1.3-7.7); Neutrophils % (A) 94 %; Platelet Count 217 k/uL (150-450); RBC 4.44 m/uL (4.30-5.90); RDW 13.3 % (11.5-15.5); WBC 15.7 k/uL (3.8-10.6)
[2020-04-13 10:18] LABS: INR 0.9 (<1.2); Partial Thromboplastin Time 27.4 sec (22.0-30.0); Prothrombin Time 9.8 sec (9.0-12.0)
[2020-04-13 10:31] VITALS: BP 123/88; PULSE 74; RESP 18; TEMP 98.5
[2020-04-13] MEDS ORDERED: ONDANSETRON 4 MG ODT STARTER PACK 2 TAB BTL PO STA (10:58)
== END 2020-04-13 11:07 | disposition home or self-care (01) ==
LOC: EC 08:57
DX: J44.9 Chronic obstructive pulmonary disease, unspecified (principal); R11.2 Nausea with vomiting, unspecified; F32.9 Major depressive disorder, single episode, unspecified; F17.200 Nicotine dependence, unspecified, uncomplicated; Z79.899 Other long term (current) drug therapy; Z98.1 Arthrodesis status
CPT/HCPCS: 36415; 93005; 83880; 80053; 83605; 83735; 84484; 85025; 85610; 85730; 71046; 99285; 96374; 96361; 99406; J2405; S0119

== ENCOUNTER 2020-09-14 10:11 | Emergency (ER) | payer OTHER ==
[2020-09-14 10:17] VITALS: TEMP 97.6
--- NOTE | 2020-09-14 10:37 | ED ---
SOB HPI - General Chief Complaint: Shortness of Breath Stated Complaint: ERIC Time Seen by Provider: 09/14/20 10:18 Source: patient Mode of arrival: ambulatory Limitations: no limitations - History of Present Illness Initial Comments: 60 year-old male patient presents to the emergency department for evaluation of shortness of breath and chest tightness. States that symptoms started last night. States that he feels like he cannot catch his breath. He denies any cough or congestion. Denies nausea, vomiting, or sweats. Denies any upper back, jaw, or arm pain. He does smoke cigarettes. He is not treated for any chronic medical conditions though was told he has early COPD. Patient denies any recent rash, fever, chills, chest pain, abdominal pain, diarrhea, constipation, back pain, numbness, tingling, dizziness, weakness, hematuria, dysuria, urinary urgency, urinary frequency, headache, visual changes, or any other complaints. - Related Data Home Medications Medication Instructions Recorded Confirmed Baclofen [Lioresal] 20 mg PO TID 01/14/20 09/14/20 Citalopram Hydrobromide [CeleXA] 40 mg PO DAILY 01/14/20 09/14/20 HYDROcodone/APAP 5-325MG [[place] 1 tab PO TID PRN 04/13/20 09/14/20 5-325] Tamsulosin [Flomax] 0.4 mg PO DAILY 04/13/20 09/14/20 Previous Rx's Medication Instructions Recorded Albuterol Sulfate [Proair Hfa] 1 - 2 puff INHALATION Q6HR PRN #1 09/14/20 inhaler predniSONE 50 mg PO DAILY #5 tablet 09/14/20 Allergies Allergy/AdvReac Type Severity Reaction Status Date / Time No Known Allergies Allergy Verified 09/14/20 10:56 Review of Systems ROS Statement: Those systems with pertinent positive or pertinent negative responses have been documented in the HPI. ROS Other: All systems not noted in ROS Statement are negative. Past Medical History Past Medical History: Pneumonia Additional Past Medical History / Comment(s): back pain History of Any Multi-Drug Resistant Organisms: None Reported Past Surgical History: Back Surgery Additional Past Surgical History / Comment(s): neck fusion,rt eye surgery, rt hand surgery Past Psychological History: Depression Smoking Status: Current every day smoker Past Alcohol Use History: Occasional Past Drug Use History: Marijuana - Past Family History Mother History Unknown: Yes General Exam Limitations: no limitations General appearance: alert, in no apparent distress, other (This is a well- developed, well-nourished adult male patient in no acute distress. Vital signs upon presentation are temperature 97.6F, pulse 89, respirations 18, blood pressure 157/94, pulse ox 97% on room air.) Eye exam: Present: normal appearance, PERRL, EOMI. Absent: scleral icterus, conjunctival injection, periorbital swelling ENT exam: Present: normal exam, normal oropharynx, mucous membranes moist Respiratory exam: Present: normal lung sounds bilaterally, other (Tachypnea). Absent: respiratory distress, wheezes, rales, rhonchi, stridor Cardiovascular Exam: Present: regular rate, normal rhythm, normal heart sounds. Absent: systolic murmur, diastolic murmur, rubs, gallop, clicks GI/Abdominal exam: Present: soft, normal bowel sounds. Absent: distended, tenderness, guarding, rebound, rigid Neurological exam: Present: alert, oriented X3, CN II-XII intact Psychiatric exam: Present: normal affect, normal mood Skin exam: Present: warm, dry, intact, normal color. Absent: rash Course Vital Signs 09/14/20 09/14/20 09/14/20 10:14 10:43 10:49 Temperature 97.6 F Pulse Rate 89 81 111 H Respiratory 18 22 18 Rate Blood Pressure 157/94 127/83 108/88 O2 Sat by Pulse 97 98 94 L Oximetry 09/14/20 09/14/20 09/14/20 11:42 11:52 11:57 Temperature Pulse Rate 65 88 80 Respiratory 20 Rate Blood Pressure 121/101 O2 Sat by Pulse 96 Oximetry 09/14/20 13:03 Temperature 97.6 F Pulse Rate 80 Respiratory 20 Rate Blood Pressure 121/101 O2 Sat by Pulse 96 Oximetry Medical Decision Making - Medical Decision Making 60-year-old male patient presents to the emergency department today for evaluation of shortness of breath. Physical examination revealed clear equal lung sounds. Labs reviewed and were unremarkable. Chest x-ray showed no acute cardiopulmonary process. He tested negative for COVID-19. He was given albuterol breathing treatment and steroids here in the emergency department. Upon reevaluation states he is feeling better. He'll be discharged with a c ourse of steroids and a Pro Air inhaler. Instructed to follow up with his primary care physician for recheck in 1-2 days. Return parameters were discussed in detail. He verbalizes understanding and agrees with this plan. Case discussed with my attending Dr. Gutiérrez. - Lab Data Result diagrams: 09/14/20 10:36 09/14/20 10:36 Lab Results 09/14/20 09/14/20 09/14/20 Range/Units 10:36 10:36 10:36 WBC 12.0 H (3.8-10.6) k/uL RBC 4.67 (4.30-5.90) m/uL Hgb 14.2 (13.0-17.5) gm/dL Hct 41.2 (39.0-53.0) % MCV 88.2 (80.0-100.0) fL MCH 30.3 (25.0-35.0) pg MCHC 34.4 (31.0-37.0) g/dL RDW 12.7 (11.5-15.5) % Plt Count 215 (150-450) k/uL MPV 7.9 Neutrophils % 91 % Lymphocytes % 5 % Monocytes % 2 % Eosinophils % 2 % Basophils % 0 % Neutrophils # 10.9 H (1.3-7.7) k/uL Lymphocytes # 0.5 L (1.0-4.8) k/uL Monocytes # 0.3 (0-1.0) k/uL Eosinophils # 0.2 (0-0.7) k/uL Basophils # 0.0 (0-0.2) k/uL PT 10.0 (9.0-12.0) sec INR 0.9 (<1.2) APTT 25.2 (22.0-30.0) sec Sodium 139 (137-145) mmol/L Potassium 3.9 (3.5-5.1) mmol/L Chloride 107 (98-107) mmol/L Carbon Dioxide 21 L (22-30) mmol/L Anion Gap 11 mmol/L BUN 11 (9-20) mg/dL Creatinine 0.94 (0.66-1.25) mg/dL Est GFR (CKD-EPI)AfAm >90 (>60 ml/min/1.73 sqM) Est GFR (CKD-EPI)NonAf 89 (>60 ml/min/1.73 sqM) Glucose 96 (74-99) mg/dL Plasma Lactic Acid Pierre (0.7-2.0) mmol/L Calcium 9.6 (8.4-10.2) mg/dL Magnesium 1.9 (1.6-2.3) mg/dL Total Bilirubin 0.3 (0.2-1.3) mg/dL AST 21 (17-59) U/L ALT 16 (4-49) U/L Alkaline Phosphatase 114 (38-126) U/L Troponin I (0.000-0.034) ng/mL Total Protein 7.2 (6.3-8.2) g/dL Albumin 4.5 (3.5-5.0) g/dL Coronavirus (PCR) (Not Detectd) 09/14/20 09/14/20 09/14/20 Range/Units 10:36 10:36 10:36 WBC (3.8-10.6) k/uL RBC (4.30-5.90) m/uL Hgb (13.0-17.5) gm/dL Hct (39.0-53.0) % MCV (80.0-100.0) fL MCH (25.0-35.0) pg MCHC (31.0-37.0) g/dL RDW (11.5-15.5) % Plt Count (150-450) k/uL MPV Neutrophils % % Lymphocytes % % Monocytes % % Eosinophils % % Basophils % % Neutrophils # (1.3-7.7) k/uL Lymphocytes # (1.0-4.8) k/uL Monocytes # (0-1.0) k/uL Eosinophils # (0-0.7) k/uL Basophils # (0-0.2) k/uL PT (9.0-12.0) sec INR (<1.2) APTT (22.0-30.0) sec Sodium (137-145) mmol/L Potassium (3.5-5.1) mmol/L Chloride (98-107) mmol/L Carbon Dioxide (22-30) mmol/L Anion Gap mmol/L BUN (9-20) mg/dL Creatinine (0.66-1.25) mg/dL Est GFR (CKD-EPI)AfAm (>60 ml/min/1.73 sqM) Est GFR (CKD-EPI)NonAf (>60 ml/min/1.73 sqM) Glucose (74-99) mg/dL Plasma Lactic Acid Pierre 1.3 (0.7-2.0) mmol/L Calcium (8.4-10.2) mg/dL Magnesium (1.6-2.3) mg/dL Total Bilirubin (0.2-1.3) mg/dL AST (17-59) U/L ALT (4-49) U/L Alkaline Phosphatase (38-126) U/L Troponin I <0.012 (0.000-0.034) ng/mL Total Protein (6.3-8.2) g/dL Albumin (3.5-5.0) g/dL Coronavirus (PCR) Not Detected (Not Detectd) - EKG Data -: EKG Interpreted by Me EKG Comments: EKG obtained at 1024 shows normal sinus rhythm with a ventricular rate of 76, AK interval 132, QRS duration 82, QT 386, QTc 434. No evidence of ST elevation or depression. - Radiology Data Radiology results: report reviewed, image reviewed Two-view x-ray of the chest is obtained. Report was reviewed in its entirety. Impression by Dr. Collins shows chronic changes without acute pulmonary process. Disposition Clinical Impression: COPD (chronic obstructive pulmonary disease) Disposition: HOME SELF-CARE Condition: Good Instructions (If sedation given, give patient instructions): COPD (Chronic Obstructive Pulmonary Disease) (ED) Additional Instructions: Follow-up with the primary care physician for recheck in 1-2 days. Take medications as directed. Return to the emergency department for any new, worsening, or concerning symptoms. Prescriptions: predniSONE 50 mg PO DAILY #5 tablet Albuterol Sulfate [Proair Hfa] 1 - 2 puff INHALATION Q6HR PRN #1 inhaler PRN Reason: Shortness Of Breath Is patient prescribed a controlled substance at d/c from ED?: No Referrals: Joseph Granger MD [Primary Care Provider] - 1-2 days Time of Disposition: 13:00
[2020-09-14 10:50] LABS: Basophils % (A) 0 %; Eosinophils # (A) 0.2 k/uL (0-0.7); Eosinophils % (A) 2 %; HCT 41.2 % (39.0-53.0); HGB 14.2 gm/dL (13.0-17.5); Lymphocytes # (A) 0.5 k/uL (1.0-4.8); Lymphocytes % (A) 5 %; MCH 30.3 pg (25.0-35.0); MCHC 34.4 g/dL (31.0-37.0); MCV 88.2 fL (80.0-100.0); Mean Platelet Volume 7.9; Monocytes # (A) 0.3 k/uL (0-1.0); Monocytes % (A) 2 %; Neutrophils # (A) 10.9 k/uL (1.3-7.7); Neutrophils % (A) 91 %; Platelet Count 215 k/uL (150-450); RBC 4.67 m/uL (4.30-5.90); RDW 12.7 % (11.5-15.5)
[2020-09-14 11:02] LABS: ALT 16 U/L (4-49); AST 21 U/L (17-59); African American GFR (CKD) >90 (>60 ml/min/1.73 sqM); Albumin 4.5 g/dL (3.5-5.0); Alkaline Phosphatase 114 U/L (38-126); Anion Gap 11 mmol/L; Blood Urea Nitrogen 11 mg/dL (9-20); Calcium 9.6 mg/dL (8.4-10.2); Carbon Dioxide 21 mmol/L (22-30); Chloride 107 mmol/L (98-107); Glucose 96 mg/dL (74-99); Magnesium 1.9 mg/dL (1.6-2.3); Non-African American GFR(CKD) 89 (>60 ml/min/1.73 sqM); Potassium 3.9 mmol/L (3.5-5.1); Sodium 139 mmol/L (137-145); Total Bilirubin 0.3 mg/dL (0.2-1.3); Total Protein 7.2 g/dL (6.3-8.2)
[2020-09-14 11:04] LABS: INR 0.9 (<1.2); Partial Thromboplastin Time 25.2 sec (22.0-30.0)
--- NOTE | 2020-09-14 11:18 | XR ---
EXAMINATION TYPE: XR chest 2V DATE OF EXAM: 09/14/2020 COMPARISON: Chest x-ray April 13, 2020 HISTORY: History of tobacco use with difficulty in breathing. TECHNIQUE: Frontal and lateral views of the chest are obtained. FINDINGS: There are chronic parenchymal changes bilaterally without suspicious new focal air space o pacity, pleural effusion, or pneumothorax seen. The cardiac silhouette size is stable and within nor mal limits. Partial visualization of surgical change in the cervical spine. IMPRESSION: Chronic changes without acute pulmonary process.
[2020-09-14] MEDS ORDERED: methylPREDNISolone SOD SUCCI 125 MG/2 ML VIAL IV STA (11:27)
[2020-09-14] MEDS ORDERED: IPRATROPIUM-ALBUTEROL 3 ML NEB INHALATION STA (11:27)
[2020-09-14 11:44] VITALS: BP 121/101; RESP 20
[2020-09-14 11:58] VITALS: PULSE 80
== END 2020-09-14 13:04 | disposition home or self-care (01) ==
LOC: EC 10:11
DX: J44.9 Chronic obstructive pulmonary disease, unspecified (principal); F32.9 Major depressive disorder, single episode, unspecified; F17.200 Nicotine dependence, unspecified, uncomplicated; F12.90 Cannabis use, unspecified, uncomplicated; Z20.822 Contact with and (suspected) exposure to COVID-19
CPT/HCPCS: 36415; 94640; 93005; 80053; 83605; 83735; 84484; 85025; 85610; 85730; 87635; 71046; 99285; 96374; J2930

== ENCOUNTER 2020-09-15 01:34 | Inpatient (IN) | payer OTHER ==
[2020-09-15] MEDS ORDERED: NITROGLYCERIN-D5W PMX 50 MG in DEXTROSE/WATER 1 250ML.BAG IV ONE (01:53)
[2020-09-15] MEDS ORDERED: MORPHINE SULFATE 4 MG/ML SYRINGE IV STA ×3 (01:54→05:51)
--- NOTE | 2020-09-15 02:10 | ED ---
SOB HPI - General Source: patient, RN notes reviewed, old records reviewed Mode of arrival: wheelchair Limitations: altered mental status <Jeanmarie Dhaliwal - Last Filed: 09/15/20 02:07> <Pedro Cardoza - Last Filed: 09/28/20 21:49> - General Chief Complaint: Shortness of Breath Stated Complaint: SOB Time Seen by Provider: 09/15/20 01:45 - History of Present Illness Initial Comments: 60-year-old male presents emergency Department with chief complaint of shortness of breath. Patient was reportedly seen here earlier for shortness of breath was discharged in stable condition. Patient states symptoms worsened inf ormation is very limited as patient is agitated, not answering questions. Patient is a daily smoker denies any drug use denies any history of CHF or known cardiac disease. Records show that he's had some prior admissions for pneumonia, COPD. (Jeanmarie Dhaliwal) - Related Data Home Medications Medication Instructions Recorded Confirmed Baclofen [Lioresal] 20 mg PO TID 01/14/20 09/15/20 Citalopram Hydrobromide [CeleXA] 40 mg PO DAILY 01/14/20 09/15/20 HYDROcodone/APAP 5-325MG [[place] 1 tab PO TID PRN 04/13/20 09/15/20 5-325] Tamsulosin [Flomax] 0.4 mg PO DAILY 04/13/20 09/15/20 Albuterol Sulfate [Proair Hfa] 1 - 2 puff INHALATION RT-Q6H PRN 09/15/20 09/15/20 Previous Rx's Medication Instructions Recorded Amoxic-Pot Clav 875-125Mg 1 each PO Q12HR #10 tab 09/24/20 [Augmentin 875-125] Ipratropium-Albuterol Nebulize 3 ml INHALATION RT-Q2H PRN ml 09/24/20 [Duoneb 0.5 mg-3 mg/3 ml Soln] Pantoprazole [Protonix] 40 mg PO AC-BRKFST #30 tablet.dr 09/24/20 Tiotropium 2.5 Mcg/Puff [Spiriva 2 puff INHALATION RT-DAILY puff 09/24/20 Respimat 2.5 Mcg] methylPREDNISolone Dose Pack 24 mg PO DAILY #1 pack 04/30/21 [Medrol Dose Pack] Allergies Allergy/AdvReac Type Severity Reaction Status Date / Time No Known Allergies Allergy Verified 09/15/20 06:55 Review of Systems ROS Other: All systems not noted in ROS Statement are negative. <Jeanmarie Dhaliwal - Last Filed: 09/15/20 02:07> ROS Other: All systems not noted in ROS Statement are negative. <Pedro Cardoza - Last Filed: 09/28/20 21:49> ROS Statement: Those systems with pertinent positive or pertinent negative responses have been documented in the HPI. Past Medical History Past Medical History: Pneumonia Additional Past Medical History / Comment(s): back pain History of Any Multi-Drug Resistant Organisms: None Reported Past Surgical History: Back Surgery Additional Past Surgical History / Comment(s): neck fusion,rt eye surgery, rt hand surgery Past Psychological History: Depression Smoking Status: Current every day smoker Past Alcohol Use History: Occasional Past Drug Use History: Marijuana - Past Family History Mother History Unknown: Yes <Jeanmarie Dhaliwal - Last Filed: 09/15/20 02:07> General Exam Limitations: altered mental status General appearance: anxious, in distress, other (Diaphoretic) Head exam: Present: atraumatic, normocephalic, normal inspection Eye exam: Present: normal appearance, PERRL, EOMI. Absent: scleral icterus, conjunctival injection, periorbital swelling ENT exam: Present: mucous membranes moist Neck exam: Present: normal inspection, full ROM. Absent: tenderness, meningismus, lymphadenopathy Respiratory exam: Present: rales, decreased breath sounds. Absent: normal lung sounds bilaterally, respiratory distress, wheezes, rhonchi, stridor Cardiovascular Exam: Present: normal rhythm, tachycardia, normal heart sounds. Absent: systolic murmur, diastolic murmur, rubs, gallop, clicks Psychiatric exam: Present: agitated Skin exam: Present: diaphoretic <Jeanmarie Dhaliwal - Last Filed: 09/15/20 02:07> Course Vital Signs 09/15/20 09/15/20 09/15/20 02:15 02:30 02:45 Temperature 97.4 F L Pulse Rate 101 H 84 75 Respiratory 27 H 23 24 Rate Blood Pressure 180/93 110/70 99/73 Blood Pressure [Left Arm] O2 Sat by Pulse 98 98 94 L Oximetry 04/09/15/20 09/15/20 03:00 04:00 05:00 Temperature Pulse Rate 82 75 75 Respiratory 20 22 19 Rate Blood Pressure 104/72 92/72 106/88 Blood Pressure [Left Arm] O2 Sat by Pulse 98 97 98 Oximetry 09/15/20 09/15/20 09/15/20 06:00 06:20 07:28 Temperature 98.4 F 97.4 F L Pulse Rate 82 71 Respiratory 22 16 16 Rate Blood Pressure 103/87 112/86 Blood Pressure 108/75 [Left Arm] O2 Sat by Pulse 98 91 L 99 Oximetry 09/15/20 09/15/20 09/15/20 08:38 09:26 11:29 Temperature Pulse Rate 73 66 75 Respiratory 16 16 16 Rate Blood Pressure 100/81 106/86 117/84 Blood Pressure [Left Arm] O2 Sat by Pulse 97 98 96 Oximetry 09/15/20 09/15/20 09/15/20 12:51 13:30 14:28 Temperature 98.1 F Pulse Rate 64 77 64 Respiratory 16 16 20 Rate Blood Pressure 123/83 130/89 98/79 Blood Pressure [Left Arm] O2 Sat by Pulse 96 96 96 Oximetry 09/15/20 09/15/20 09/15/20 15:16 17:09 17:48 Temperature 98.7 F Pulse Rate 65 71 69 Respiratory 20 16 16 Rate Blood Pressure 122/88 117/90 120/84 Blood Pressure [Left Arm] O2 Sat by Pulse 96 96 96 Oximetry 09/15/20 09/15/20 09/15/20 19:06 19:30 20:00 Temperature Pulse Rate 67 66 75 Respiratory 16 18 Rate Blood Pressure 112/81 115/87 Blood Pressure [Left Arm] O2 Sat by Pulse 94 L 92 L Oximetry 09/15/20 09/15/20 09/15/20 20:30 21:00 21:10 Temperature Pulse Rate 76 72 75 Respiratory 20 16 20 Rate Blood Pressure 121/94 123/84 123/76 Blood Pressure [Left Arm] O2 Sat by Pulse 92 L 92 L 92 L Oximetry Procedures - Intubation Sedative: Etomidate Laryngoscope: Christine Size: 3 ET Tube Size: 8 ET Tube Uncuffed: No Tube Secured Depth (cm): 22 Tube Secured Location: lips Tube Placement Confirmation: visualized tube passing through cords, equal breath sounds bilaterally, no breath sounds over epigastrium, confirmation by capnometry Patient Tolerated Procedure: well Intubation Complications: none - Sepsis Sepsis Focused Exam #1 Sepsis Focused Exam Date: 09/15/20 Sepsis Focused Exam Time: 07:00 Sepsis Focused Exam Complete: Yes Vital Signs & RN Notes Reviewed: Yes Capillary Refill: < 2 Seconds: Fingers Peripheral Pulses: Normal: Radial (R) Skin Color: Normal for Patient Respiratory Exam: wheezes Cardiovascular Exam: regular rate <Pedro Cardoza - Last Filed: 09/28/20 21:49> Medical Decision Making - Lab Data Result diagrams: 09/21/20 03:15 09/21/20 03:15 - EKG Data -: EKG Interpreted by Me EKG shows normal: sinus rhythm (With PACs), axis (Normal), intervals (Normal), QRS complexes (Normal), ST-T waves (Normal) Rate: normal (Rate 83 bpm) <Pedro Cardoza - Last Filed: 09/28/20 21:49> - Medical Decision Making I saw this patient in conjunction with the physician finance assistant. I performed independent history and physical exam. Agree with case management. Patient's 60-year-old man seen here earlier in the day for what sounds like COPD exacerbation. He returned tonight in respiratory distress, and was not respond ing to supplemental oxygen, therefore intubated. Patient also markedly hypertensive. There appears to be component of acute congestive heart failure as well as suspected pneumonia possibly aspiration. Patient started on antibiotics as well as treatment for CHF component. Patient discussed with admitting physician and with the pulmonary manager school. (Pedro Cardoza) - Lab Data Lab Results 09/15/20 09/15/20 09/15/20 Range/Units 02:00 02:00 02:00 WBC 36.6 H (3.8-10.6) k/uL RBC 5.16 (4.30-5.90) m/uL Hgb 15.2 (13.0-17.5) gm/dL Hct 46.4 (39.0-53.0) % MCV 89.9 (80.0-100.0) fL MCH 29.4 (25.0-35.0) pg MCHC 32.7 (31.0-37.0) g/dL RDW 13.4 (11.5-15.5) % Plt Count 278 (150-450) k/uL MPV 8.9 Neutrophils % 94 % Lymphocytes % 2 % Monocytes % 3 % Eosinophils % 1 % Basophils % 0 % Neutrophils # 34.4 H (1.3-7.7) k/uL Lymphocytes # 0.7 L (1.0-4.8) k/uL Monocytes # 1.2 H (0-1.0) k/uL Eosinophils # 0.2 (0-0.7) k/uL Basophils # 0.1 (0-0.2) k/uL PT 10.4 (9.0-12.0) sec INR 1.0 (<1.2) APTT 21.7 L (22.0-30.0) sec D-Dimer 2.03 H (<0.60) mg/L FEU Sample Site ABG pH (7.35-7.45) ABG pCO2 (35-45) mmHg ABG pO2 (83-108) mmHg ABG HCO3 (21-25) mmol/L ABG Total CO2 (19-24) mmol/L ABG O2 Saturation (94-97) % ABG Base Excess mmol/L Alonso Test FiO2 % Sodium 142 (137-145) mmol/L Potassium 4.1 (3.5-5.1) mmol/L Chloride 104 (98-107) mmol/L Carbon Dioxide 22 (22-30) mmol/L Anion Gap 16 mmol/L BUN 21 H (9-20) mg/dL Creatinine 1.28 H (0.66-1.25) mg/dL Est GFR (CKD-EPI)AfAm 71 (>60 ml/min/1.73 sqM) Est GFR (CKD-EPI)NonAf 61 (>60 ml/min/1.73 sqM) Glucose 143 H (74-99) mg/dL Lactic Ac Sepsis Rflx Plasma Lactic Acid Pierre (0.7-2.0) mmol/L Calcium 10.3 H (8.4-10.2) mg/dL Magnesium 2.0 (1.6-2.3) mg/dL Total Bilirubin 1.1 (0.2-1.3) mg/dL AST 84 H (17-59) U/L ALT 21 (4-49) U/L Alkaline Phosphatase 118 (38-126) U/L Troponin I (0.000-0.034) ng/mL NT-Pro-B Natriuret Pep pg/mL Total Protein 7.6 (6.3-8.2) g/dL Albumin 4.7 (3.5-5.0) g/dL Procalcitonin (0.02-0.09) ng/mL Urine Color Urine Appearance (Clear) Urine pH (5.0-8.0) Ur Specific [place] (1.001-1.035) Urine Protein (Negative) Urine Glucose (UA) (Negative) Urine Ketones (Negative) Urine Blood (Negative) Urine Nitrite (Negative) Urine Bilirubin (Negative) Urine Urobilinogen (<2.0) mg/dL Ur Leukocyte Esterase (Negative) Urine RBC (0-5) /hpf Urine WBC (0-5) /hpf Urine Bacteria (None) /hpf Hyaline Casts (0-2) /lpf Urine Mucus (None) /hpf Urine Opiates Screen (NotDetected) Ur Oxycodone Screen (NotDetected) Urine Methadone Screen (NotDetected) Ur Propoxyphene Screen (NotDetected) Ur Barbiturates Screen (NotDetected) U Tricyclic Antidepress (NotDetected) Ur Phencyclidine Scrn (NotDetected) Ur Amphetamines Screen (NotDetected) U Methamphetamines Scrn (NotDetected) U Benzodiazepines Scrn (NotDetected) Urine Cocaine Screen (NotDetected) U Marijuana (THC) Screen (NotDetected) Coronavirus (PCR) (Not Detectd) 09/15/20 09/15/20 09/15/20 Range/Units 02:00 02:00 02:00 WBC (3.8-10.6) k/uL RBC (4.30-5.90) m/uL Hgb (13.0-17.5) gm/dL Hct (39.0-53.0) % MCV (80.0-100.0) fL MCH (25.0-35.0) pg MCHC (31.0-37.0) g/dL RDW (11.5-15.5) % Plt Count (150-450) k/uL MPV Neutrophils % % Lymphocytes % % Monocytes % % Eosinophils % % Basophils % % Neutrophils # (1.3-7.7) k/uL Lymphocytes # (1.0-4.8) k/uL Monocytes # (0-1.0) k/uL Eosinophils # (0-0.7) k/uL Basophils # (0-0.2) k/uL PT (9.0-12.0) sec INR (<1.2) APTT (22.0-30.0) sec D-Dimer (<0.60) mg/L FEU Sample Site ABG pH (7.35-7.45) ABG pCO2 (35-45) mmHg ABG pO2 (83-108) mmHg ABG HCO3 (21-25) mmol/L ABG Total CO2 (19-24) mmol/L ABG O2 Saturation (94-97) % ABG Base Excess mmol/L Alonso Test FiO2 % Sodium (137-145) mmol/L Potassium (3.5-5.1) mmol/L Chloride (98-107) mmol/L Carbon Dioxide (22-30) mmol/L Anion Gap mmol/L BUN (9-20) mg/dL Creatinine (0.66-1.25) mg/dL Est GFR (CKD-EPI)AfAm (>60 ml/min/1.73 sqM) Est GFR (CKD-EPI)NonAf (>60 ml/min/1.73 sqM) Glucose (74-99) mg/dL Lactic Ac Sepsis Rflx Plasma Lactic Acid Pierre 7.2 H* (0.7-2.0) mmol/L Calcium (8.4-10.2) mg/dL Magnesium (1.6-2.3) mg/dL Total Bilirubin (0.2-1.3) mg/dL AST (17-59) U/L ALT (4-49) U/L Alkaline Phosphatase (38-126) U/L Troponin I <0.012 (0.000-0.034) ng/mL NT-Pro-B Natriuret Pep 1830 pg/mL Total Protein (6.3-8.2) g/dL Albumin (3.5-5.0) g/dL Procalcitonin (0.02-0.09) ng/mL Urine Color Urine Appearance (Clear) Urine pH (5.0-8.0) Ur Specific [place] (1.001-1.035) Urine Protein (Negative) Urine Glucose (UA) (Negative) Urine Ketones (Negative) Urine Blood (Negative) Urine Nitrite (Negative) Urine Bilirubin (Negative) Urine Urobilinogen (<2.0) mg/dL Ur Leukocyte Esterase (Negative) Urine RBC (0-5) /hpf Urine WBC (0-5) /hpf Urine Bacteria (None) /hpf Hyaline Casts (0-2) /lpf Urine Mucus (None) /hpf Urine Opiates Screen (NotDetected) Ur Oxycodone Screen (NotDetected) Urine Methadone Screen (NotDetected) Ur Propoxyphene Screen (NotDetected) Ur Barbiturates Screen (NotDetected) U Tricyclic Antidepress (NotDetected) Ur Phencyclidine Scrn (NotDetected) Ur Amphetamines Screen (NotDetected) U Methamphetamines Scrn (NotDetected) U Benzodiazepines Scrn (NotDetected) Urine Cocaine Screen (NotDetected) U Marijuana (THC) Screen (NotDetected) Coronavirus (PCR) (Not Detectd) 09/15/20 09/15/20 09/15/20 Range/Units 02:00 02:16 02:40 WBC (3.8-10.6) k/uL RBC (4.30-5.90) m/uL Hgb (13.0-17.5) gm/dL Hct (39.0-53.0) % MCV (80.0-100.0) fL MCH (25.0-35.0) pg MCHC (31.0-37.0) g/dL RDW (11.5-15.5) % Plt Count (150-450) k/uL MPV Neutrophils % % Lymphocytes % % Monocytes % % Eosinophils % % Basophils % % Neutrophils # (1.3-7.7) k/uL Lymphocytes # (1.0-4.8) k/uL Monocytes # (0-1.0) k/uL Eosinophils # (0-0.7) k/uL Basophils # (0-0.2) k/uL PT (9.0-12.0) sec INR (<1.2) APTT (22.0-30.0) sec D-Dimer (<0.60) mg/L FEU Sample Site ABG pH (7.35-7.45) ABG pCO2 (35-45) mmHg ABG pO2 (83-108) mmHg ABG HCO3 (21-25) mmol/L ABG Total CO2 (19-24) mmol/L ABG O2 Saturation (94-97) % ABG Base Excess mmol/L Alonso Test FiO2 % Sodium (137-145) mmol/L Potassium (3.5-5.1) mmol/L Chloride (98-107) mmol/L Carbon Dioxide (22-30) mmol/L Anion Gap mmol/L BUN (9-20) mg/dL Creatinine (0.66-1.25) mg/dL Est GFR (CKD-EPI)AfAm (>60 ml/min/1.73 sqM) Est GFR (CKD-EPI)NonAf (>60 ml/min/1.73 sqM) Glucose (74-99) mg/dL Lactic Ac Sepsis Rflx Plasma Lactic Acid Pierre (0.7-2.0) mmol/L Calcium (8.4-10.2) mg/dL Magnesium (1.6-2.3) mg/dL Total Bilirubin (0.2-1.3) mg/dL AST (17-59) U/L ALT (4-49) U/L Alkaline Phosphatase (38-126) U/L Troponin I (0.000-0.034) ng/mL NT-Pro-B Natriuret Pep pg/mL Total Protein (6.3-8.2) g/dL Albumin (3.5-5.0) g/dL Procalcitonin 1.67 H (0.02-0.09) ng/mL Urine Color Yellow Urine Appearance Clear (Clear) Urine pH 6.0 (5.0-8.0) Ur Specific [place] 1.029 (1.001-1.035) Urine Protein 1+ H (Negative) Urine Glucose (UA) Negative (Negative) Urine Ketones 1+ H (Negative) Urine Blood Moderate H (Negative) Urine Nitrite Negative (Negative) Urine Bilirubin Negative (Negative) Urine Urobilinogen <2.0 (<2.0) mg/dL Ur Leukocyte Esterase Negative (Negative) Urine RBC 1 (0-5) /hpf Urine WBC 1 (0-5) /hpf Urine Bacteria Rare H (None) /hpf Hyaline Casts 50 H (0-2) /lpf Urine Mucus Occasional H (None) /hpf Urine Opiates Screen Detected H (NotDetected) Ur Oxycodone Screen Not Detected (NotDetected) Urine Methadone Screen Not Detected (NotDetected) Ur Propoxyphene Screen Not Detected (NotDetected) Ur Barbiturates Screen Not Detected (NotDetected) U Tricyclic Antidepress Not Detected (NotDetected) Ur Phencyclidine Scrn Not Detected (NotDetected) Ur Amphetamines Screen Not Detected (NotDetected) U Methamphetamines Scrn Not Detected (NotDetected) U Benzodiazepines Scrn Not Detected (NotDetected) Urine Cocaine Screen Not Detected (NotDetected) U Marijuana (THC) Screen Detected H (NotDetected) Coronavirus (PCR) Not Detected (Not Detectd) 09/15/20 09/15/20 Range/Units 02:46 02:52 WBC (3.8-10.6) k/uL RBC (4.30-5.90) m/uL Hgb (13.0-17.5) gm/dL Hct (39.0-53.0) % MCV (80.0-100.0) fL MCH (25.0-35.0) pg MCHC (31.0-37.0) g/dL RDW (11.5-15.5) % Plt Count (150-450) k/uL MPV Neutrophils % % Lymphocytes % % Monocytes % % Eosinophils % % Basophils % % Neutrophils # (1.3-7.7) k/uL Lymphocytes # (1.0-4.8) k/uL Monocytes # (0-1.0) k/uL Eosinophils # (0-0.7) k/uL Basophils # (0-0.2) k/uL PT (9.0-12.0) sec INR (<1.2) APTT (22.0-30.0) sec D-Dimer (<0.60) mg/L FEU Sample Site rbrac ABG pH 7.30 L (7.35-7.45) ABG pCO2 43 (35-45) mmHg ABG pO2 256 H (83-108) mmHg ABG HCO3 21 (21-25) mmol/L ABG Total CO2 22 (19-24) mmol/L ABG O2 Saturation 99.4 H (94-97) % ABG Base Excess -5.6 mmol/L Alonso Test yes FiO2 100 % Sodium (137-145) mmol/L Potassium (3.5-5.1) mmol/L Chloride (98-107) mmol/L Carbon Dioxide (22-30) mmol/L Anion Gap mmol/L BUN (9-20) mg/dL Creatinine (0.66-1.25) mg/dL Est GFR (CKD-EPI)AfAm (>60 ml/min/1.73 sqM) Est GFR (CKD-EPI)NonAf (>60 ml/min/1.73 sqM) Glucose (74-99) mg/dL Lactic Ac Sepsis Rflx Y Plasma Lactic Acid Pierre (0.7-2.0) mmol/L Calcium (8.4-10.2) mg/dL Magnesium (1.6-2.3) mg/dL Total Bilirubin (0.2-1.3) mg/dL AST (17-59) U/L ALT (4-49) U/L Alkaline Phosphatase (38-126) U/L Troponin I (0.000-0.034) ng/mL NT-Pro-B Natriuret Pep pg/mL Total Protein (6.3-8.2) g/dL Albumin (3.5-5.0) g/dL Procalcitonin (0.02-0.09) ng/mL Urine Color Urine Appearance (Clear) Urine pH (5.0-8.0) Ur Specific [place] (1.001-1.035) Urine Protein (Negative) Urine Glucose (UA) (Negative) Urine Ketones (Negative) Urine Blood (Negative) Urine Nitrite (Negative) Urine Bilirubin (Negative) Urine Urobilinogen (<2.0) mg/dL Ur Leukocyte Esterase (Negative) Urine RBC (0-5) /hpf Urine WBC (0-5) /hpf Urine Bacteria (None) /hpf Hyaline Casts (0-2) /lpf Urine Mucus (None) /hpf Urine Opiates Screen (NotDetected) Ur Oxycodone Screen (NotDetected) Urine Methadone Screen (NotDetected) Ur Propoxyphene Screen (NotDetected) Ur Barbiturates Screen (NotDetected) U Tricyclic Antidepress (NotDetected) Ur Phencyclidine Scrn (NotDetected) Ur Amphetamines Screen (NotDetected) U Methamphetamines Scrn (NotDetected) U Benzodiazepines Scrn (NotDetected) Urine Cocaine Screen (NotDetected) U Marijuana (THC) Screen (NotDetected) Coronavirus (PCR) (Not Detectd) Critical Care Time Critical Care Time: Yes (40 minutes) <Pedro Cardoza - Last Filed: 09/28/20 21:49> Disposition <Jeanmarie Dhaliwal - Last Filed: 09/15/20 02:07> <Pedro Cardoza - Last Filed: 09/28/20 21:49> Clinical Impression: Pneumonia, Lactic acidosis, Acute respiratory failure with hypoxia, CHF (congestive heart failure) Disposition: ADMITTED IP TO THIS HOSP Condition: Critical
[2020-09-15] MEDS ORDERED: LORazepam 2 MG/ML INJ IV STA ×2 (02:18→05:43)
[2020-09-15] MEDS ORDERED: ETOMIDATE 2 MG/ML 10 ML VIAL IVP STA (02:19)
[2020-09-15] MEDS ORDERED: SUCCINYLCHOLINE CHLORIDE VIAL 200 MG/10 ML VIAL IV STA (02:19)
--- NOTE | 2020-09-15 02:25 | XR ---
EXAM: XR Chest, 1 View CLINICAL HISTORY: ITS.REASON XR Reason: dyspnea TECHNIQUE: Frontal view of the chest. COMPARISON: 09/14/2020 1110 hrs. FINDINGS: Lungs: Extensive bilateral airspace disease predominantly in the mid and lower lungs, new since the prior. Pleural space: Unremarkable. No pneumothorax. No large pleural effusion Heart: Unremarkable. No cardiomegaly. Mediastinum: Unremarkable. Bones/joints: Unremarkable. IMPRESSION: Extensive bilateral airspace disease predominantly in the mid and lower lungs, new since the prior. Broad differential including infectious/inflammatory process, edema, hemorrhage.
[2020-09-15 02:30] LABS: Basophils # (A) 0.1 k/uL (0-0.2); Basophils % (A) 0 %; Eosinophils # (A) 0.2 k/uL (0-0.7); Eosinophils % (A) 1 %; HCT 46.4 % (39.0-53.0); HGB 15.2 gm/dL (13.0-17.5); Lymphocytes # (A) 0.7 k/uL (1.0-4.8); Lymphocytes % (A) 2 %; MCH 29.4 pg (25.0-35.0); MCHC 32.7 g/dL (31.0-37.0); MCV 89.9 fL (80.0-100.0); Mean Platelet Volume 8.9; Monocytes # (A) 1.2 k/uL (0-1.0); Monocytes % (A) 3 %; Neutrophils # (A) 34.4 k/uL (1.3-7.7); Neutrophils % (A) 94 %; Platelet Count 278 k/uL (150-450); RBC 5.16 m/uL (4.30-5.90); RDW 13.4 % (11.5-15.5); WBC 36.6 k/uL (3.8-10.6)
[2020-09-15 02:44] LABS: Albumin 4.7 g/dL (3.5-5.0); Calcium 10.3 mg/dL (8.4-10.2); Partial Thromboplastin Time 21.7 sec (22.0-30.0); Potassium 4.1 mmol/L (3.5-5.1); Prothrombin Time 10.4 sec (9.0-12.0); Total Bilirubin 1.1 mg/dL (0.2-1.3); Total Protein 7.6 g/dL (6.3-8.2)
[2020-09-15 02:46] LABS: D-Dimer 2.03 mg/L FEU (<0.60)
[2020-09-15 02:49] LABS: ABG Base Excess -5.6 mmol/L; ABG HCO3 21 mmol/L (21-25); ABG Oxygen Saturation 99.4 % (94-97); ABG PCO2 43 mmHg (35-45); ABG PO2 256 mmHg (83-108); ABG TCO2 22 mmol/L (19-24)
[2020-09-15 02:53] LABS: Appearance,Urine Clear (Clear); Bacteria,Urine Rare /hpf; Bilirubin,Urine Negative (Negative); Blood,Urine Moderate (Negative); Color,Urine Yellow; Glucose,Urine (UA) Negative (Negative); Hyaline Casts,Urine 50 /lpf (0-2); Ketones,Urine 1+ (Negative); Leukocyte Esterase,Urine Negative (Negative); Mucus,Urine Occasional /hpf; Nitrite,Urine Negative (Negative); Protein,Urine 1+ (Negative); RBC,Urine 1 /hpf (0-5); Specific Gravity,Urine 1.029 (1.001-1.035); Urobilinogen,Urine <2.0 mg/dL (<2.0); WBC,Urine 1 /hpf (0-5)
[2020-09-15 02:57] LABS: Allen Test Performed? yes
[2020-09-15] MEDS ORDERED: PIPERACILLIN-TAZOBACTAM 3.375 GM in SODIUM CHLORIDE 0.9% 100 ML IVPB STA (03:00)
[2020-09-15 03:02] LABS: Cocaine Screen,Urine Not Detected (NotDetected); Opiate Screen,Urine Detected (NotDetected); Phencyclidine Screen,Urine Not Detected (NotDetected)
[2020-09-15 03:03] LABS: Amphetamine Screen,Urine Not Detected (NotDetected); Barbiturate Screen,Urine Not Detected (NotDetected); Benzodiazepines Screen,Urine Not Detected (NotDetected); Methadone Screen, Urine Not Detected (NotDetected); Oxycodone Screen, Urine Not Detected (NotDetected); Tricyclic Antidepressant,Urine Not Detected (NotDetected); Urn Cannabinoid Scrn Detected (NotDetected)
--- NOTE | 2020-09-15 03:05 | XR ---
EXAM: XR Chest, 1 View CLINICAL HISTORY: ITS.REASON XR Reason: Postintubation, OG tube TECHNIQUE: Frontal view of the chest. COMPARISON: 09/16/19 26177 hours FINDINGS: Lungs: Bilateral patchy airspace disease, similar to the prior. Pleural space: Unremarkable. No pneumothorax. Heart: Unremarkable. No cardiomegaly. Mediastinum: Unremarkable. Bones/joints: Unremarkable. Tubes, lines and devices: New endotracheal tube with the tip 5 cm above the enriqueta. New enteric tube with the tip in the proximal stomach. IMPRESSION: 1. New endotracheal tube with the tip 5 cm above the enriqueta. 2. New enteric tube with the tip in the proximal stomach. 3. Bilateral patchy airspace disease, similar to the prior.
--- NOTE | 2020-09-15 04:14 | CT ---
EXAM: CT Angiography Chest With Intravenous Contrast CLINICAL HISTORY: ITS.REASON CT Reason: possible PE TECHNIQUE: Axial computed tomographic angiography images of the chest with intravenous contrast. CTDI is 18.77 mGy and DLP is 431.4 mGy-cm. This CT exam was performed using one or more of the following dose reduction techniques: automated exposure control, adjustment of the mA and/or kV according to patient size, and/or use of iterative reconstruction technique. MIP reconstructed images were created and reviewed. COMPARISON: Chest x-ray today. Chest CT from 01/14/2020. FINDINGS: Pulmonary arteries: Breathing motion artifact somewhat limits evaluation. No evidence of pulmonary embolism. Aorta: No acute findings. No thoracic aortic aneurysm. Lungs: Extensive patchy airspace disease throughout the lungs bilaterally. No mass. Pleural space: Unremarkable. No significant effusion. No pneumothorax. Heart: Mild cardiomegaly. No significant pericardial effusion. No evidence of RV dysfunction. Mediastinum: Small mediastinal nodes. Nonspecific. Bones/joints: Degenerative changes of the spine. No acute fracture. No dislocation. Soft tissues: Unremarkable. Lymph nodes: Unremarkable. No enlarged lymph nodes. Tubes, lines and devices: Endotracheal tube in the midthoracic trachea. Enteric tube tip in the proximal stomach. IMPRESSION: 1. Extensive patchy airspace disease throughout the lungs bilaterally. May represent infectious or inflammatory process including Covid 19. 2. Breathing motion artifact somewhat limits evaluation. No evidence of pulmonary embolism.
[2020-09-15] MEDS ORDERED: SODIUM CHLORIDE 0.9% 1,000 ML IV STA (04:32)
[2020-09-15] MEDS ORDERED: SODIUM CHLORIDE 0.9% 1,000 ML IV ONE (04:32)
[2020-09-15] MEDS ORDERED: LEVOFLOXACIN 750MG-D5W PMX 750 MG in DEXTROSE/WATER 1 150ML.BAG IVPB STA (04:33)
[2020-09-15] MEDS ORDERED: ARTIFICIAL TEARS OINTMENT 3.5 GM TUBE BOTH EYES PRN (04:49)
[2020-09-15] MEDS ORDERED: ARTIFICIAL TEARS-HYPROMELLOSE DROPS 15 ML BTL BOTH EYES PRN (04:49)
[2020-09-15] MEDS ORDERED: ACETAMINOPHEN SUPPOSITORY 650 MG SUPP RECTAL PRN (04:49)
[2020-09-15] MEDS ORDERED: NALOXONE 0.4 MG/ML 1 ML VIAL IV PRN (04:49)
[2020-09-15] MEDS ORDERED: IPRATROPIUM-ALBUTEROL 3 ML NEB INHALATION PRN ×2 (04:49→10:59)
[2020-09-15] MEDS ORDERED: MORPHINE SULFATE 4 MG/ML SYRINGE IV PRN (04:49)
[2020-09-15] MEDS: methylPREDNISolone SOD SUCCI 125 MG/2 ML VIAL IV SCH ×4 (05:15→22:52)
[2020-09-15] MEDS ORDERED: FUROSEMIDE 10 MG/ML 4 ML VIAL IV STA (06:17)
--- NOTE | 2020-09-15 08:43 | XR ---
EXAMINATION TYPE: XR chest 1V portable DATE OF EXAM: 09/15/2020 CLINICAL HISTORY: Difficulty breathing progress study. TECHNIQUE: Single AP portable semiupright view of the chest is obtained. COMPARISON: Chest x-ray from earlier today and older studies . FINDINGS: Stable endotracheal and orogastric tubes. There are persistent bilateral multifocal and confluent opacities. The cardiac silhouette size is st able and within normal limits. Partial visualization of surgical change in the cervical spine is rede monstrated. IMPRESSION: Persistent bilateral multifocal and confluent opacities. No significant change from most recent x-ray.
[2020-09-15 08:59] LABS: ABG Base Excess -2.4 mmol/L; ABG HCO3 23 mmol/L (21-25); ABG Oxygen Saturation 94.7 % (94-97); ABG PCO2 42 mmHg (35-45); ABG PH 7.35 (7.35-7.45); ABG PO2 74 mmHg (83-108); ABG TCO2 25 mmol/L (19-24); Allen Test Performed? Yes
[2020-09-15] MEDS ORDERED: VANCOMYCIN IV PER PHARMACY 1 EACH MISC MISCELLANE PRN (10:00)
--- NOTE | 2020-09-15 11:23 | XR ---
EXAMINATION TYPE: XR abdomen 1V DATE OF EXAM: 09/15/2020 10:57 AM CLINICAL HISTORY: Firm abdomen with diminished bowel sounds. TECHNIQUE: Single supine KUB image of the abdomen is obtained. COMPARISON: CTA abdomen and pelvis January 14, 2020. FINDINGS: As seen in nondistended small and large bowel loops in the upper to mid abdomen and right a bdomen extending into pelvis. Slight paucity of bowel gas towards the left lower quadrant. Gas seen i n nondistended bowel loops in the pelvis. [id number] multilevel spurring and disc space narrowi ng in the visualized spine. Some vascular calcification overlies the pelvis bilaterally. IMPRESSION: Overall nonobstructive bowel gas pattern redemonstrated.
[2020-09-15] MEDS: FAMOTIDINE 20 MG/2 ML VIAL IV SCH ×2 (11:38→20:05)
[2020-09-15] MEDS: FUROSEMIDE 10 MG/ML 4 ML VIAL IV SCH ×2 (11:40→20:07)
[2020-09-15] MEDS: VANCOMYCIN 1,250 MG in SODIUM CHLORIDE 0.9% 250 ML IVPB SCH ×2 (11:41→20:12)
--- NOTE | 2020-09-15 11:41 | P.CNPUL ---
History of Present Illness Consult date: 09/15/20 Requesting physician: Jeanmarie Dhaliwal Reason for consult: dyspnea, hypoxemia Chief complaint: dyspnea, hypoxemia History of present illness: This is 60-year-old white male patient who was seen in the emergency department on 09/14/2020 for evaluation of shortness of breath and chest tightness that started the night before, patient felt like he could not catch his breath, he denied any cough or congestion, denied any nausea vomiting or sweats, denied any upper back, jaw or arm pain, patient is a current smoker, his current chronic medical conditions include COPD not normally on home oxygen, chronic back pain, with history of back surgeries, marijuana use and previous episodes of pneumonia, his pulse ox was 97% on room air, he was afebrile, and his chest x- ray showed no acute cardiopulmonary process, he tested negative for COVID-19, he was given breathing treatments and steroids in the emergency department, and upon reevaluation he was feeling much better, he was discharged home on a course of steroids and albuterol inhaler. She was supposed to recheck with his primary care physician in 1-2 days, however he came back to the emergency department at around 1:00 in the morning with complaint of severe shortness of breath, patient was very hypoxic and agitated and could not answer any questions. His repeat blood work showed a white blood cell count of 36.6, hemoglobin of 15.2, his d- dimer was 2.03, his BUN is 21, creatinine is 1.28, and anion gap metabolic acidosis with a lactic acid of 7.2, troponin level was negative at less than 0.012, proBNP was elevated at 1830, patient was in severe respiratory distress, his chest x-ray showed extensive bilateral airspace disease predominantly in the mid and lower lungs that was new since the prior exam, with a differential including infectious/inflammatory process, pulmonary edema or hemorrhage. His CTA chest showed no evidence of pulmonary embolism, lung windows showed extensive patchy airspace disease throughout the lungs bilaterally, no mass. In view of severe respiratory distress patient was emergently intubated and placed on mechanical ventilator, and he is currently on assist control mode of ventilation with a rate of 16, tidal arm is 400, FiO2 of 50% and PEEP of 5, his blood gas postintubation showed pO2 of 256, CO2 43, pH of 7.30, patient was given IV steroids, and dose of IV Lasix, he was placed on antibiotics in the form of Zosyn and Levaquin, currently just on Zosyn, he remains intubated and sedated, currently on parenteral secondary to 1:30 ML per hour, Diprivan is at 20 mics per kilo per minute, repeat blood gas this morning shows pO2 of 74, pCO2 42, and pH of 7.35 this was done on 50% FiO2, patient was fluid resuscitated, currently his plasma lactic acid is down to 1.4, urinalysis shows moderate blood, 1+ ketones, 1+ protein, but no definite sign of infection, his urine drug screen was positive for opiates and marijuana, his COVID-19 test again was negative. Repeat CBC today shows white blood cell count of 36.6, hemoglobin is 15.2, neutrophils of 34.4, lymphocyte count of 0.7. Patient is awaiting a bed in the intensive care unit Review of Systems ROS unobtainable: due to endotracheal tube, due to mental status All systems: negative Constitutional: Denies chills, Denies fever Eyes: denies blurred vision, denies pain Ears, nose, mouth and throat: Denies headache, Denies sore throat Cardiovascular: Denies chest pain, Denies shortness of breath Respiratory: Reports dyspnea, Reports respiratory infections, Reports wheezing, Denies cough Gastrointestinal: Denies abdominal pain, Denies diarrhea, Denies nausea, Denies vomiting Musculoskeletal: Denies myalgias Integumentary: Denies pruritus, Denies rash Neurological: Denies numbness, Denies weakness Psychiatric: Denies anxiety, Denies depression Endocrine: Denies fatigue, Denies weight change Past Medical History Past Medical History: Pneumonia Additional Past Medical History / Comment(s): back pain History of Any Multi-Drug Resistant Organisms: None Reported Past Surgical History: Back Surgery Additional Past Surgical History / Comment(s): neck fusion,rt eye surgery, rt hand surgery Past Psychological History: Depression Smoking Status: Current every day smoker Past Alcohol Use History: Occasional Past Drug Use History: Marijuana - Past Family History Mother History Unknown: Yes Medications and Allergies Home Medications Medication Instructions Recorded Confirmed Type Baclofen [Lioresal] 20 mg PO TID 01/14/20 09/15/20 History Citalopram Hydrobromide [CeleXA] 40 mg PO DAILY 01/14/20 09/15/20 History HYDROcodone/APAP 5-325MG [[place] 1 tab PO TID PRN 04/13/20 09/15/20 History 5-325] Tamsulosin [Flomax] 0.4 mg PO DAILY 04/13/20 09/15/20 History predniSONE 50 mg PO DAILY #5 tablet 09/14/20 09/15/20 Rx Albuterol Sulfate [Proair Hfa] 1 - 2 puff INHALATION RT-Q6H PRN 09/15/20 09/15/20 History Allergies Allergy/AdvReac Type Severity Reaction Status Date / Time No Known Allergies Allergy Verified 09/15/20 06:55 Physical Exam Vitals: Vital Signs Temp Pulse Resp BP Pulse Ox 09/15/20 09:26 66 16 106/86 98 09/15/20 08:38 73 16 100/81 97 09/15/20 07:28 97.4 F L 71 16 112/86 99 09/15/20 06:00 82 22 103/87 98 09/15/20 05:00 75 19 106/88 98 09/15/20 04:00 75 22 92/72 97 09/15/20 03:00 82 20 104/72 98 09/15/20 02:45 75 24 99/73 94 L 09/15/20 02:30 84 23 110/70 98 09/15/20 02:15 97.4 F L 101 H 27 H 180/93 98 Intake and Output 09/14/20 09/15/20 09/15/20 22:59 06:59 14:59 Intake Total 6.746 8.879 Output Total 1100 Balance 6.746 -1091.121 Intake: Intake, IV Titration 6.746 8.879 Amount Nitroglycerin-D5w Pmx 50 0.4 mg In Dextrose/Water 1 250ml.bag @ 10 MCG/MIN 3 mls/hr IV .Q24H ONE Rx#: [id number] propofoL 1,000 mg In 6.346 8.879 Empty Bag 1 bag @ Titrate IV .Q0M [facility] Rx#: [id number] Output: Urine 1100 Other: Weight 65.771 kg GENERAL EXAM: Sedated, intubated, 52-year-old white male, resting comfortably currently on assist control mode of ventilation with a rate 16, tidal lines 400, FiO2 50% and PEEP of 5, comfortable in no apparent distress. HEAD: Normocephalic/atraumatic. EYES: Normal reaction of pupils, equal size. Conjunctiva pink, sclera white. NOSE: Clear with pink turbinates. THROAT: No erythema or exudates. NECK: No masses, no JVD, no thyroid enlargement, no adenopathy. CHEST: No chest wall deformity. Symmetrical expansion. LUNGS: Equal air entry with no crackles, wheeze, rhonchi or dullness. CVS: Regular rate and rhythm, normal S1 and S2, no gallops, no murmurs, no rubs ABDOMEN: Soft, nontender. No hepatosplenomegaly, normal bowel sounds, no guarding or rigidity. EXTREMITIES: No clubbing, no edema, no cyanosis, 2+ pulses and upper and lower extremities. MUSCULOSKELETAL: Muscle strength and tone normal. SPINE: No scoliosis or deformity SKIN: No rashes CENTRAL NERVOUS SYSTEM: Sedated, intubated No focal deficits, tone is normal in all 4 extremities. Results - Laboratory Findings CBC and BMP: 09/15/20 02:00 09/15/20 02:00 ABG ABG pH 7.35 (7.35-7.45) 09/15/20 08:55 ABG pCO2 42 mmHg (35-45) 09/15/20 08:55 ABG pO2 74 mmHg (83-108) L 09/15/20 08:55 ABG O2 Saturation 94.7 % (94-97) 09/15/20 08:55 PT/INR, D-dimer PT 10.4 sec (9.0-12.0) 09/15/20 02:00 INR 1.0 (<1.2) 09/15/20 02:00 D-Dimer 2.03 mg/L FEU (<0.60) H 09/15/20 02:00 Abnormal lab findings: Abnormal Labs 09/15/20 09/15/20 09/15/20 02:00 02:00 02:00 WBC 36.6 H Neutrophils # 34.4 H Lymphocytes # 0.7 L Monocytes # 1.2 H APTT 21.7 L D-Dimer 2.03 H ABG pH ABG pO2 ABG Total CO2 ABG O2 Saturation BUN 21 H Creatinine 1.28 H Glucose 143 H Plasma Lactic Acid Pierre Calcium 10.3 H AST 84 H Urine Protein Urine Ketones Urine Blood Urine Bacteria Hyaline Casts Urine Mucus Urine Opiates Screen U Marijuana (THC) Screen 09/15/20 09/15/20 09/15/20 02:00 02:40 02:46 WBC Neutrophils # Lymphocytes # Monocytes # APTT D-Dimer ABG pH 7.30 L ABG pO2 256 H ABG Total CO2 ABG O2 Saturation 99.4 H BUN Creatinine Glucose Plasma Lactic Acid Pierre 7.2 H* Calcium AST Urine Protein 1+ H Urine Ketones 1+ H Urine Blood Moderate H Urine Bacteria Rare H Hyaline Casts 50 H Urine Mucus Occasional H Urine Opiates Screen Detected H U Marijuana (THC) Screen Detected H 09/15/20 08:55 WBC Neutrophils # Lymphocytes # Monocytes # APTT D-Dimer ABG pH ABG pO2 74 L ABG Total CO2 25 H ABG O2 Saturation BUN Creatinine Glucose Plasma Lactic Acid Pierre Calcium AST Urine Protein Urine Ketones Urine Blood Urine Bacteria Hyaline Casts Urine Mucus Urine Opiates Screen U Marijuana (THC) Screen - Diagnostic Findings Chest x-ray: report reviewed, image reviewed CT scan - chest: report reviewed, image reviewed Additional studies: EKG reviewed Assessment and Plan Plan: Assessment: #1. Acute hypoxic respiratory failure related to possibility of aspiration pneumonia and pulmonary edema, COVID-19 test was negative 2 #2. Acute exacerbation of COPD #3. Acute anion gap metabolic acidosis related to lactic acidosis the possibility of sepsis #4. Elevated d-dimer without CT evidence of pulmonary embolism #5. Smoker #6. Marijuana use #7. Chronic back pain Plan: We'll continue with Zosyn for antibiotic coverage, we will add Lasix 40 mg twice daily, IV fluids to KVO Continue current vent settings GI and DVT prophylaxis We'll add breathing treatments IV steroids Awaiting a bed for ICU Patient to closely monitor I performed a history & physical examination of the patient and discussed their management with my nurse practitioner, Chaparrita Eubanks. I reviewed the nurse practitioner's note and agree with the documented findings and plan of care. Lung sounds are positive for diffuse wheezes throughout the lung interiano. The findings and the impression was discussed with the patient. I attest to the documentation by the nurse practitioner. Time with Patient: Greater than 30
--- NOTE | 2020-09-15 11:46 | ECHOF ---
Referral Reason:CHF exacerbation MEASUREMENTS -------- HEIGHT: 175.3 cm WEIGHT: 65.8 kg BP: 103/87 RVIDd: 2.9 cm (< 3.3) IVSd: 1.2 cm (0.6 - 1.1) LVIDd: 3.8 cm (3.9 - 5.3) LVPWd: 1.2 cm (0.6 - 1.1) IVSs: 1.5 cm LVIDs: 3.3 cm LVPWs: 1.5 cm LA Diam: 3.4 cm (2.7 - 3.8) LAESV Index (A-L): 22.74 ml/m Ao Diam: 3.0 cm (2.0 - 3.7) AV Cusp: 2.1 cm (1.5 - 2.6) MV EXCURSION: 15.618 mm (> 18.000) MV EF SLOPE: 85 mm/s (70 - 150) EPSS: 1.6 cm MV E David: 0.60 m/s MV DecT: 215 ms MV A David: 0.79 m/s MV E/A Ratio: 0.76 RAP: 5.00 mmHg RVSP: 26.52 mmHg FINDINGS -------- Sinus rhythm. This was a technically difficult study with suboptimal apical views. The left ventricular size is normal. There is borderline concentric left ventricular hypertrophy. Overall left ventricular systolic function is mild-moderately impaired with, an EF between 40 - 45 % . Basal lateral LV wall motion is hypokinetic. Mid lateral LV wall motion is hypokinetic. Api roshan lateral LV wall motion is hypokinetic. The right ventricle is normal in size. Normal LA size by volume 22+/-6 ml/m2. The right atrium is normal in size. 5 ml of Lumason was utilized for enhancement of images. Interatrial and interventricular septum intact. The aortic valve is trileaflet, and appears structurally normal. No aortic stenosis or regurgitation. The mitral valve is normal. Mild tricuspid regurgitation present. Right ventricular systolic pressure is normal at < 35 mmHg. Trace/mild (physiologic) pulmonic regurgitation. The aortic root size is normal. Normal inferior vena cava with normal inspiratory collapse consistent with estimated right atrial pre ssure of 5 mmHg. There is no pericardial effusion. CONCLUSIONS -------- 1. The left ventricular size is normal. 2. There is borderline concentric left ventricular hypertrophy. 3. Overall left ventricular systolic function is mild-moderately impaired with, an EF between 40 - 45 %. 4. Basal lateral LV wall motion is hypokinetic. 5. Mid lateral LV wall motion is hypokinetic. 6. Apical lateral LV wall motion is hypokinetic. 7. 5 ml of Lumason was utilized for enhancement of images. 8. Mild tricuspid regurgitation present. 9. Trace/mild (physiologic) pulmonic regurgitation. 10. There is no pericardial effusion. SQL ENGINEER: Karishma Resendiz RDCS
[2020-09-15 11:58] LABS: C Reactive Protein 16.1 mg/dL (<1.0)
[2020-09-15] MEDS: PIPERACILLIN-TAZOBACTAM 3.375 GM in SODIUM CHLORIDE 0.9% 100 ML IVPB SCH ×2 (13:33→20:11)
--- NOTE | 2020-09-15 13:39 | P.HPIM ---
History of Present Illness H&P Date: 09/15/20 HISTORY OF PRESENT ILLNESS This is a 60-year-old male patient of Dr. Granger past medical history of COPD, tobacco use and dependence, chronic marijuana use, chronic neck and back pain, recurrent depression and generalized anxiety, benign prostatic hypertrophy. Patient was seen in the emergency center on September 14 with complaints of difficulty breathing. His chest x-ray showed chronic changes without acute pulmonary process. He was given nebulizer treatment and Solu- Medrol 125 mg IV 1, stabilized and discharged home. He returned to the emergency center on September 15 with worsening shortness of breath and mental status changes. He was found to be afebrile, heart rate 101, respiratory rate 27, pulse ox 98%, blood pressure initially 180/83, subsequently 103/87. WBC 36.6, hemoglobin 15.2 and platelet count 278. Electrolytes normal. BUN 21 creatinine 1.28. Blood sugar 143. D-dimer 2.03. Calcium 10.3. Magnesium 2.0. Blood sugar 143. Total bilirubin 1.1, AST 84, ALT 21, alkaline phosphatase 118. Lactic acid 7.2. Troponin negative. ProBNP 1830. Urinalysis showed moderate blood. Coronavirus PCR not detected. EKG was a sinus rhythm with no acute ST changes. CT angiogram of the chest revealed no pulmonary and is on. Extensive patchy airspace disease throughout the lungs bilaterally may represent inflammatory process including Covid 19. Chest x-ray reveals extensive bilateral airspace disease predominantly in the mid and lower lungs since prior. Echocardiogram reveals EF of 40-45% with borderline concentric left regular hypertrophy, mild tricuspid regurgitation. Abdominal x-ray showed overall nonobstructive bowel gas pattern. He has been started on IV Lasix 40 mg every 12 hours, DuoNeb treatments, Solu-Medrol 60 mg IV every 6 hours, Zosyn, vancomycin. REVIEW OF SYSTEMS Unable to obtain due to mental status change, intubation. SOCIAL HISTORY he is a smoker of one pack per day and he drinks a couple beers usually 2 a couple days a week but denies use daily. He states he uses marijuana occasionally and denies any other drug use. FAMILY HISTORY Mother at age 69 from a myocardial infarction. Father in a truck accident at age 29. Patient does not have his sisters. Patient has 2 brothers with no major medical problems. Patient has 2 daughters and 1 son with no major medical problems.. PHYSICAL EXAMINATION Gen: This is a 60-year-old male. He is resting in the ER bed, intubated and on mechanical ventilation. Patient appears to be in no acute distress. HEENT: Head is atraumatic, normocephalic. Pupils equal, round. Sclerae is anicteric. Oral ET tube. NECK: Supple. No JVD. No lymphadenopathy. No thyromegaly. LUNGS: Diminished bilaterally. No wheezes or rhonchi. No intercostal retrac tions. HEART: Regular rate and rhythm. No murmur. ABDOMEN: Soft. Bowel sounds are present. No masses. No tenderness. EXTREMITIES: No pedal edema. No calf tenderness. NEUROLOGICAL: Patient is sedated. ASSESSMENT AND PLAN 1. Acute hypoxic respiratory failure secondary to aspiration pneumonia, acute systolic heart failure and possible COPD exacerbation. Condition very suspicious for Covid 19 pneumonia. Patient has had Covid 19 testing 2 negative. Patient required intubation and on mechanical ventilation. Consult with pulmonary medicine appreciated. Continue IV Zosyn and IV vancomycin, Solu- Medrol 60 mg IV every 6 hours, DuoNeb treatments 4 times daily and as needed, Lasix 40 mg IV every 12 hours. Monitor I&O and daily weights, electrolyte and renal function. Patient will need speech evaluation once extubated. Inflammatory markers, pro-calcitonin and repeat Covid 19 testing ordered. Blood culture is in progress. 2. Infectious encephalopathy secondary to sepsis and aspiration pneumonia. 3. Chronic pain syndrome. 4. Tobacco use and dependence. Nicotine patch. 5. Marijuana use. 6. Recurrent depression and generalized anxiety disorder. Continue citalopram 40 mg daily. 7. Benign prostatic hypertrophy. Patient is normally on Flomax 0.4 mg daily. 8. DVT prophylaxis. Lovenox 40 mg subcu daily. 9. GI prophylaxis. Protonix 40 mg IV daily. Patient will be admitted to the hospital for a minimum of 2 night stay. DISCHARGE PLAN TBD. Impression and plan of care have been directed as dictated by the signing physician. Marybel Santoro nurse practitioner acting as scribe for signing physician. Past Medical History Past Medical History: Pneumonia Additional Past Medical History / Comment(s): back pain History of Any Multi-Drug Resistant Organisms: None Reported Past Surgical History: Back Surgery Additional Past Surgical History / Comment(s): neck fusion,rt eye surgery, rt hand surgery Past Psychological History: Depression Smoking Status: Current every day smoker Past Alcohol Use History: Occasional Past Drug Use History: Marijuana - Past Family History Mother History Unknown: Yes Medications and Allergies Home Medications Medication Instructions Recorded Confirmed Type Baclofen [Lioresal] 20 mg PO TID 01/14/20 09/15/20 History Citalopram Hydrobromide [CeleXA] 40 mg PO DAILY 01/14/20 09/15/20 History HYDROcodone/APAP 5-325MG [[place] 1 tab PO TID PRN 04/13/20 09/15/20 History 5-325] Tamsulosin [Flomax] 0.4 mg PO DAILY 04/13/20 09/15/20 History predniSONE 50 mg PO DAILY #5 tablet 09/14/20 09/15/20 Rx Albuterol Sulfate [Proair Hfa] 1 - 2 puff INHALATION RT-Q6H PRN 09/15/20 09/15/20 History Allergies Allergy/AdvReac Type Severity Reaction Status Date / Time No Known Allergies Allergy Verified 09/15/20 06:55 Physical Exam Vitals: Vital Signs Temp Pulse Resp BP Pulse Ox 09/15/20 09:26 66 16 106/86 98 09/15/20 08:38 73 16 100/81 97 09/15/20 07:28 97.4 F L 71 16 112/86 99 09/15/20 06:00 82 22 103/87 98 09/15/20 05:00 75 19 106/88 98 09/15/20 04:00 75 22 92/72 97 09/15/20 03:00 82 20 104/72 98 09/15/20 02:45 75 24 99/73 94 L 09/15/20 02:30 84 23 110/70 98 09/15/20 02:15 97.4 F L 101 H 27 H 180/93 98 Intake and Output 09/14/20 09/15/20 09/15/20 22:59 06:59 14:59 Intake Total 6.746 8.879 Output Total 1100 Balance 6.746 -1091.121 Intake: Intake, IV Titration 6.746 8.879 Amount Nitroglycerin-D5w Pmx 50 0.4 mg In Dextrose/Water 1 250ml.bag @ 10 MCG/MIN 3 mls/hr IV .Q24H [facility] Rx#: [id number] propofoL 1,000 mg In 6.346 8.879 Empty Bag 1 bag @ Titrate IV .Q0M [facility] Rx#: [id number] Output: Urine 1100 Other: Weight 65.771 kg Results CBC & Chem 7: 09/15/20 02:00 09/15/20 02:00 Labs: Abnormal Lab Results - Last 24 Hours (Table) 09/15/20 09/15/20 09/15/20 Range/Units 02:00 02:00 02:00 WBC 36.6 H (3.8-10.6) k/uL Neutrophils # 34.4 H (1.3-7.7) k/uL Lymphocytes # 0.7 L (1.0-4.8) k/uL Monocytes # 1.2 H (0-1.0) k/uL APTT 21.7 L (22.0-30.0) sec D-Dimer 2.03 H (<0.60) mg/L FEU ABG pH (7.35-7.45) ABG pO2 (83-108) mmHg ABG Total CO2 (19-24) mmol/L ABG O2 Saturation (94-97) % BUN 21 H (9-20) mg/dL Creatinine 1.28 H (0.66-1.25) mg/dL Glucose 143 H (74-99) mg/dL Plasma Lactic Acid Pierre (0.7-2.0) mmol/L Calcium 10.3 H (8.4-10.2) mg/dL AST 84 H (17-59) U/L Urine Protein (Negative) Urine Ketones (Negative) Urine Blood (Negative) Urine Bacteria (None) /hpf Hyaline Casts (0-2) /lpf Urine Mucus (None) /hpf Urine Opiates Screen (NotDetected) U Marijuana (THC) Screen (NotDetected) 09/15/20 09/15/20 09/15/20 Range/Units 02:00 02:40 02:46 WBC (3.8-10.6) k/uL Neutrophils # (1.3-7.7) k/uL Lymphocytes # (1.0-4.8) k/uL Monocytes # (0-1.0) k/uL APTT (22.0-30.0) sec D-Dimer (<0.60) mg/L FEU ABG pH 7.30 L (7.35-7.45) ABG pO2 256 H (83-108) mmHg ABG Total CO2 (19-24) mmol/L ABG O2 Saturation 99.4 H (94-97) % BUN (9-20) mg/dL Creatinine (0.66-1.25) mg/dL Glucose (74-99) mg/dL Plasma Lactic Acid Pierre 7.2 H* (0.7-2.0) mmol/L Calcium (8.4-10.2) mg/dL AST (17-59) U/L Urine Protein 1+ H (Negative) Urine Ketones 1+ H (Negative) Urine Blood Moderate H (Negative) Urine Bacteria Rare H (None) /hpf Hyaline Casts 50 H (0-2) /lpf Urine Mucus Occasional H (None) /hpf Urine Opiates Screen Detected H (NotDetected) U Marijuana (THC) Screen Detected H (NotDetected) 09/15/20 Range/Units 08:55 WBC (3.8-10.6) k/uL Neutrophils # (1.3-7.7) k/uL Lymphocytes # (1.0-4.8) k/uL Monocytes # (0-1.0) k/uL APTT (22.0-30.0) sec D-Dimer (<0.60) mg/L FEU ABG pH (7.35-7.45) ABG pO2 74 L (83-108) mmHg ABG Total CO2 25 H (19-24) mmol/L ABG O2 Saturation (94-97) % BUN (9-20) mg/dL Creatinine (0.66-1.25) mg/dL Glucose (74-99) mg/dL Plasma Lactic Acid Pierre (0.7-2.0) mmol/L Calcium (8.4-10.2) mg/dL AST (17-59) U/L Urine Protein (Negative) Urine Ketones (Negative) Urine Blood (Negative) Urine Bacteria (None) /hpf Hyaline Casts (0-2) /lpf Urine Mucus (None) /hpf Urine Opiates Screen (NotDetected) U Marijuana (THC) Screen (NotDetected)
--- NOTE | 2020-09-15 18:53 | P.CRDCN ---
History of Present Illness History of present illness: HISTORY OF PRESENTING ILLNESS Patient is a 60 year old male with history of arthritis s/p neck fusion, COPD, tobacco abuse, marijuana abuse, depression and prior pneumonia 12/2019 who presented secondary to SOB. History is supplied from chart as patient is currently intubated. Per chart he had been having SOB and chest tightness initially evaluated 09/14 and symptoms had started the day before. He had troponin x 1 which was normal, WBC 12 and was given steroids and inhalers and sent home. He returned the next day, apparently much more distress, SOB, and appeared to have altered mental status and concern of withdrawl or on illicits with more bizarre behavior. He was eventually intubated. WBC 36, DDimer 2.03, Cr increased from 0.94 to 1.28, lactic acid 7.3, Troponin < 0.012, proBNP 1830. Opiates and marijuana were detected in his urine. Xray 09/14 initially showed no acute process however repeat 09/15 showed extensive bilateral airspace disease predominantly in the mid and lower lungs. Chest CTA showed extensive patchy airspace disease. He was seen by louisa and placed on Lasix. On initial presentation (both ER visits) his BP was noted to be elevated, 09/15 at 180/93 EKG normal sinus, normal axis, no signficant ST or T wave abnormalities Echo 09/15/2020 shows EF 40-45%, lateral wall hypokinesis, REVIEW OF SYSTEMS At the time of my exam: Unable to obtain secondary to patient being intubated and sedated. PHYSICAL EXAMINATION Vitals reviewed CONSTITUTIONAL: No apparent distress, sedated and intubated HEENT: Head is normocephalic. Pupils are equal, round. Mucous membranes of the mouth are moist. +ETT, No JVD. No carotid bruit. CHEST EXAMINATION: Coarse breath sounds bilaterally with expiratory wheeze bilaterally HEART EXAMINATION: Regular rate and rhythm. S1, S2 heard. No murmurs, gallops or rub. ABDOMEN: Soft, Positive bowel sounds. EXTREMITIES: 2+ peripheral pulses, no LE edema NEUROLOGIC EXAMINATION: Nonresponsive on vent ASSESSMENT 1. Acute on chronic hypoxic respiratory failure 2. Sudden onset bilateral infiltrates of unclear etiology. Top on differential would be flash pulmonary edema vs pnemonia. 3. Possible flash pulmonary edema. Etiologies could be renal artery stenosis (with mild NISHANT and hypertension) vs ischemic mitral regurgitation with lateral hypokinesis noted on echo. 4. Cardiomyopathy with EF 40-45% 5. Lateral hypokinesis 6. COPD 7. Tobacco abuse, narcotic use, marijuana use 8. Leukocytosis 9. Uncontrolled hypertension on presentation, not on home meds and better controlled with sedation 10. Reported chest tightness on 09/14 presentation 11. Acute on chronic systolic heart failure PLAN Unclear if sudden onset of bilateral infiltrates is infectious, inflamatory or pulmonary edema. Await procalcitonin. Await cultures. CRP noted to be elevated. Monitor response of Lasix. Continue supportive care. Pulmonary recs appreciated. Check renal artery ultrasound to rule out renal artery stenosis although likely will be limited while intubated. Patient may need ischemic workup pending clinical course with mild cardiomyopathy EF 40-45% and lateral hypokinesis. Further recommendations to follow. Past Medical History Past Medical History: Pneumonia Additional Past Medical History / Comment(s): back pain History of Any Multi-Drug Resistant Organisms: None Reported Past Surgical History: Back Surgery Additional Past Surgical History / Comment(s): neck fusion,rt eye surgery, rt hand surgery Past Psychological History: Depression Smoking Status: Current every day smoker Past Alcohol Use History: Occasional Past Drug Use History: Marijuana - Past Family History Mother History Unknown: Yes Medications and Allergies Home Medications Medication Instructions Recorded Confirmed Type Baclofen [Lioresal] 20 mg PO TID 01/14/20 09/15/20 History Citalopram Hydrobromide [CeleXA] 40 mg PO DAILY 01/14/20 09/15/20 History HYDROcodone/APAP 5-325MG [[place] 1 tab PO TID PRN 04/13/20 09/15/20 History 5-325] Tamsulosin [Flomax] 0.4 mg PO DAILY 04/13/20 09/15/20 History predniSONE 50 mg PO DAILY #5 tablet 09/14/20 09/15/20 Rx Albuterol Sulfate [Proair Hfa] 1 - 2 puff INHALATION RT-Q6H PRN 09/15/20 09/15/20 History Allergies Allergy/AdvReac Type Severity Reaction Status Date / Time No Known Allergies Allergy Verified 09/15/20 06:55 Physical Exam Vitals: Vital Signs Temp Pulse Resp BP Pulse Ox 09/15/20 17:48 69 16 120/84 96 09/15/20 17:09 98.7 F 71 16 117/90 96 09/15/20 15:16 65 20 122/88 96 09/15/20 14:28 64 20 98/79 96 09/15/20 13:30 77 16 130/89 96 09/15/20 12:51 98.1 F 64 16 123/83 96 09/15/20 11:29 75 16 117/84 96 09/15/20 09:26 66 16 106/86 98 09/15/20 08:38 73 16 100/81 97 09/15/20 07:28 97.4 F L 71 16 112/86 99 09/15/20 06:00 82 22 103/87 98 09/15/20 05:00 75 19 106/88 98 09/15/20 04:00 75 22 92/72 97 09/15/20 03:00 82 20 104/72 98 09/15/20 02:45 75 24 99/73 94 L 09/15/20 02:30 84 23 110/70 98 09/15/20 02:15 97.4 F L 101 H 27 H 180/93 98 Intake and Output 09/15/20 09/15/20 09/15/20 06:59 14:59 22:59 Intake Total 6.746 58.868 79.319 Output Total 2400 800 Balance 6.746 -2341.132 -720.681 Intake: Intake, IV Titration 6.746 58.868 79.319 Amount Nitroglycerin-D5w Pmx 50 0.4 mg In Dextrose/Water 1 250ml.bag @ 10 MCG/MIN 3 mls/hr IV .Q24H ONE Rx#: [id number] propofoL 1,000 mg In 6.346 58.868 79.319 Empty Bag 1 bag @ Titrate IV .Q0M [facility] Rx#: [id number] Output: Urine 2400 800 Other: Weight 65.771 kg Results 09/15/20 02:00 09/15/20 02:00 Cardiac Enzymes 09/15/20 09/15/20 09/15/20 Range/Units 02:00 02:00 10:21 AST 84 H (17-59) U/L Lactate Dehydrogenase 2045 H (313-618) U/L Troponin I <0.012 (0.000-0.034) ng/mL 09/15/20 Range/Units 13:21 AST (17-59) U/L Lactate Dehydrogenase (313-618) U/L Troponin I <0.012 (0.000-0.034) ng/mL Coagulation 09/15/20 Range/Units 02:00 PT 10.4 (9.0-12.0) sec APTT 21.7 L (22.0-30.0) sec CBC 09/15/20 Range/Units 02:00 WBC 36.6 H (3.8-10.6) k/uL RBC 5.16 (4.30-5.90) m/uL Hgb 15.2 (13.0-17.5) gm/dL Hct 46.4 (39.0-53.0) % Plt Count 278 (150-450) k/uL Comprehensive Metabolic Panel 09/15/20 Range/Units 02:00 Sodium 142 (137-145) mmol/L Potassium 4.1 (3.5-5.1) mmol/L Chloride 104 (98-107) mmol/L Carbon Dioxide 22 (22-30) mmol/L BUN 21 H (9-20) mg/dL Creatinine 1.28 H (0.66-1.25) mg/dL Glucose 143 H (74-99) mg/dL Calcium 10.3 H (8.4-10.2) mg/dL AST 84 H (17-59) U/L ALT 21 (4-49) U/L Alkaline Phosphatase 118 (38-126) U/L Total Protein 7.6 (6.3-8.2) g/dL Albumin 4.7 (3.5-5.0) g/dL Current Medications Generic Name Dose Route Start Last Admin Trade Name Freq PRN Reason Stop Dose Admin Acetaminophen 650 mg 09/15/20 04:49 Acetaminophen Suppository 650 Mg Supp RECTAL Q4HR PRN Fever And/ Or Mild Pain Acetaminophen 650 mg 09/15/20 04:49 Acetaminophen Tab 325 Mg Tab PO Q4HR PRN Fever and/or Mild Pain Albuterol/Ipratropium 3 ml 09/15/20 04:49 Ipratropium-Albuterol 3 Ml Neb INHALATION RT-Q4H PRN Shortness Of Breath Or Wheezing Albuterol/Ipratropium 3 ml 09/15/20 12:00 Ipratropium-Albuterol 3 Ml Neb INHALATION RT-QID [facility] Albuterol/Ipratropium 3 ml 09/15/20 10:59 Ipratropium-Albuterol 3 Ml Neb INHALATION RT-Q2H PRN Shortness Of Breath Or Wheezing Artificial Tears 1 drops 09/15/20 04:49 Artificial Tears-Hypromellose Drops 15 Ml Btl BOTH EYES Q4HR PRN Dry Eye(s) Citalopram Hydrobromide 40 mg 09/16/20 09:00 Citalopram Hydrobromide 20 Mg Tab PO DAILY [facility] Enoxaparin Sodium 40 mg 09/16/20 09:00 Enoxaparin 40 Mg/0.4 Ml Syringe SQ DAILY [facility] Famotidine 20 mg 09/15/20 09:00 09/15/20 11:38 Famotidine 20 Mg/2 Ml Vial IV 20 mg Q12HR [facility] Administration Furosemide 40 mg 09/15/20 11:00 09/15/20 11:40 Furosemide 10 Mg/Ml 4 Ml Vial IV 40 mg Q12HR [facility] Administration Nitroglycerin/Dextrose 50 mg/ 250 mls @ 3 mls/hr 09/15/20 01:53 09/15/20 02:10 IV Solution IV 09/16/20 01:52 0 mcg/min .Q24H ONE 0 mls/hr Titration Protocol 10 MCG/MIN Propofol 1,000 mg/ IV Solution 100 mls @ 0 mls/hr 09/15/20 02:30 09/15/20 17:07 IV 70 mcg/kg/min .Q0M [facility] 27.624 mls/hr Administration Protocol Titrate Sodium Chloride 1,000 mls @ 20 mls/hr 09/15/20 04:32 09/15/20 04:38 Saline 0.9% IV 09/16/20 04:31 130 mls/hr .Q24H [facility] Administration Piperacillin Sod/Tazobactam 100 mls @ 25 mls/hr 09/15/20 12:00 09/15/20 13:33 Sod 3.375 gm/ Sodium Chloride IVPB 25 mls/hr Q8H [facility] Administration Vancomycin HCl 1,250 mg/ 250 mls @ 125 mls/hr 09/15/20 11:00 09/15/20 11:41 Sodium Chloride IVPB 125 mls/hr Q12HR [facility] Administration Methylprednisolone Sodium Succinate 60 mg 09/15/20 05:00 09/15/20 17:16 Methylprednisolone Sod Succi 125 Mg/2 Ml Vial IV 60 mg Q6H [facility] Administration Morphine Sulfate 3 mg 09/15/20 04:49 09/15/20 15:23 Morphine Sulfate 4 Mg/Ml Syringe IV 3 mg Q2HR PRN Administration Pain Scale 6 to 7 Multi-Ingred Cream/Lotion/Oil/Oint 1 applic 09/15/20 04:49 Artificial Tears Ointment 3.5 Gm Tube BOTH EYES Q4HR PRN Dry Eye(s) Naloxone HCl 0.2 mg 09/15/20 04:49 Naloxone 0.4 Mg/Ml 1 Ml Vial IV Q2M PRN Opioid Reversal Pantoprazole Sodium 40 mg 09/16/20 09:00 Pantoprazole 40 Mg/10 Ml Vial IVP DAILY [facility] Intake and Output 09/15/20 09/15/20 09/15/20 06:59 14:59 22:59 Intake Total 6.746 58.868 79.319 Output Total 2400 800 Balance 6.746 -2341.132 -720.681 Intake: Intake, IV Titration 6.746 58.868 79.319 Amount Nitroglycerin-D5w Pmx 50 0.4 mg In Dextrose/Water 1 250ml.bag @ 10 MCG/MIN 3 mls/hr IV .Q24H [facility] Rx#: [id number] propofoL 1,000 mg In 6.346 58.868 79.319 Empty Bag 1 bag @ Titrate IV .Q0M [facility] Rx#: [id number] Output: Urine 2400 800 Other: Weight 65.771 kg 09/15/20 02:00 09/15/20 02:00
[2020-09-15] MEDS: IPRATROPIUM-ALBUTEROL 3 ML NEB INHALATION SCH ×2 (19:26→19:30)
[2020-09-15 19:57] LABS: Ferritin 293.4 ng/mL (22.0-322.0)
[2020-09-15 21:57] LABS: Glucose,Whole Blood 142 mg/dL (75-99)
[2020-09-16] MEDS: PIPERACILLIN-TAZOBACTAM 3.375 GM in SODIUM CHLORIDE 0.9% 100 ML IVPB SCH ×3 (03:17→19:49)
[2020-09-16 04:17] LABS: ABG Base Excess 1.8 mmol/L; ABG HCO3 27 mmol/L (21-25); ABG Oxygen Saturation 94.9 % (94-97); ABG PCO2 42 mmHg (35-45); ABG PH 7.41 (7.35-7.45); ABG PO2 72 mmHg (83-108); ABG TCO2 28 mmol/L (19-24); Allen Test Performed? Yes
[2020-09-16] MEDS: methylPREDNISolone SOD SUCCI 125 MG/2 ML VIAL IV SCH ×4 (04:44→22:27)
[2020-09-16 04:49] LABS: Basophils % (A) 0 %; Eosinophils % (A) 0 %; HCT 39.3 % (39.0-53.0); HGB 13.4 gm/dL (13.0-17.5); Lymphocytes # (A) 0.4 k/uL (1.0-4.8); Lymphocytes % (A) 2 %; MCH 30.3 pg (25.0-35.0); MCHC 34.1 g/dL (31.0-37.0); MCV 88.9 fL (80.0-100.0); Mean Platelet Volume 8.7; Monocytes # (A) 0.5 k/uL (0-1.0); Monocytes % (A) 2 %; Neutrophils # (A) 19.3 k/uL (1.3-7.7); Neutrophils % (A) 96 %; Platelet Count 196 k/uL (150-450); RBC 4.42 m/uL (4.30-5.90); RDW 13.1 % (11.5-15.5); WBC 20.2 k/uL (3.8-10.6)
[2020-09-16 05:05] LABS: Albumin 3.6 g/dL (3.5-5.0); Calcium 8.3 mg/dL (8.4-10.2); Potassium 3.8 mmol/L (3.5-5.1); Total Bilirubin 0.5 mg/dL (0.2-1.3)
[2020-09-16] MEDS ORDERED: Potassium Replacement Protocol 1 EACH MISC MISCELLANE PRN (05:14)
[2020-09-16] MEDS: POTASSIUM CHLORIDE 10 MEQ in WATER FOR INJECTION 1 100ML.BAG IVPB SCH ×2 (05:20→06:30)
[2020-09-16] MEDS ORDERED: ALBUTEROL HFA INHALER INHALATION PRN (08:01)
[2020-09-16] MEDS: ALBUTEROL HFA INHALER INHALATION SCH ×4 (08:22→19:51)
[2020-09-16] MEDS: TIOTROPIUM 2.5 MCG INHALER INHALATION SCH (08:23)
[2020-09-16] MEDS ORDERED: IPRATROPIUM-ALBUTEROL 3 ML NEB INHALATION PRN (08:27)
--- NOTE | 2020-09-16 08:27 | XR ---
EXAMINATION TYPE: XR chest 1V DATE OF EXAM: 09/16/2020 COMPARISON: 09/15/2020. HISTORY: SOB, Follow Up FINDINGS: Indwelling tubes and catheters are unchanged. Diffuse bilateral airspace infiltrates persist with slight interval improvement suggested. Stable appearance of the cardio-mediastinal structures at this time. Pleural effusion unchanged. IMPRESSION: 1. Diffuse bilateral airspace infiltrates persist with slight interval improvement suggested. Clini roshan correlation and follow up until resolution is recommended.
--- NOTE | 2020-09-16 08:30 | P.PN ---
Subjective HISTORY OF PRESENTING ILLNESS Patient is a 60 year old male with history of arthritis s/p neck fusion, COPD, tobacco abuse, marijuana abuse, depression and prior pneumonia 12/2019 who presented secondary to SOB. History is supplied from chart as patient is currently intubated. Per chart he had been having SOB and chest tightness initially evaluated 09/14 and symptoms had started the day before. He had troponin x 1 which was normal, WBC 12 and was given steroids and inhalers and sent home. He returned the next day, apparently much more distress, SOB, and appeared to have altered mental status and concern of withdrawl or on illicits with more bizarre behavior. He was eventually intubated. WBC 36, DDimer 2.03, Cr increased from 0.94 to 1.28, lactic acid 7.3, Troponin < 0.012, proBNP 1830. Opiates and marijuana were detected in his urine. Xray 09/14 initially showed no acute process however repeat 09/15 showed extensive bilateral airspace disease predominantly in the mid and lower lungs. Chest CTA showed extensive patchy airspace disease. He was seen by louisa and placed on Lasix. On initial presentation (both ER visits) his BP was noted to be elevated, 09/15 at 180/93 EKG normal sinus, normal axis, no signficant ST or T wave abnormalities Echo 09/15/2020 shows EF 40-45%, lateral wall hypokinesis 09/16 Patient seen and examined. Patient is on 50% FiO2, 5 of PEEP. White blood cell count 20.2 today, creatinine 1.31, 13-93, LDH 2045, CRP 16.1, pro- calcitonin 1.67. He remains intubated and sedated. REVIEW OF SYSTEMS At the time of my exam: Unable to obtain secondary to patient being intubated and sedated. PHYSICAL EXAMINATION Vitals reviewed CONSTITUTIONAL: No apparent distress, sedated and intubated HEENT: Head is normocephalic. Pupils are equal, round. Mucous membranes of the mouth are moist. +ETT, No JVD. No carotid bruit. CHEST EXAMINATION: Coarse breath sounds bilaterally with expiratory wheeze bilat erally HEART EXAMINATION: Regular rate and rhythm. S1, S2 heard. No murmurs, gallops or rub. ABDOMEN: Soft, Positive bowel sounds. EXTREMITIES: 2+ peripheral pulses, no LE edema NEUROLOGIC EXAMINATION: Nonresponsive on vent ASSESSMENT 1. Acute on chronic hypoxic respiratory failure 2. Sudden onset bilateral infiltrates of unclear etiology, likely pneumonia vs aspiration with procalcitonin anacute phase reactants very elevated. 3. Possible flash pulmonary edema although infectious etiology appears more likely. 4. Cardiomyopathy with EF 40-45% 5. Lateral hypokinesis, may be chronic. Troponins normal and do not suspect ACS. 6. COPD 7. Tobacco abuse, narcotic use, marijuana use 8. Leukocytosis 9. Uncontrolled hypertension on presentation, not on home meds and better controlled with sedation 10. Reported chest tightness on 09/14 presentation, troponins normal and likely related to pneumonia PLAN Patient's pro-calcitonin, acute phase reactants are all elevated on a more to an infectious etiology or possible aspiration. Troponins are normal. Patient does have reported bilateral hypokinesis however do not suspect acute coronary syndrome. Patient's chest tightness likely related to pneumonia and pulmonary process. Continue with ICU supportive care, wean vent as able. Renal artery ultrasound not feasible with patient being intubated at this time and may be performed outpatient. No further recommendations from a cardiology standpoint. Patient may follow-up in the office with possible stress test to evaluate for any ischemia however presentation does not appear cardiac in nature. Please call with any questions. Objective - Vital Signs Vital signs: Vital Signs Temp 98.5 F 09/16/20 04:00 Pulse 64 09/16/20 07:00 Resp 17 09/16/20 07:00 BP 99/67 09/16/20 07:00 Pulse Ox 91 L 09/16/20 07:00 Intake & Output 09/15/20 09/16/20 09/16/20 18:59 06:59 18:59 Intake Total 138.187 764.151 120 Output Total 3200 665 50 Balance -3061.813 99.151 70 Weight 71.3 kg Intake: IV 300 120 Piperacillin-Tazobactam 3 100 .375 gm In Sodium Chloride 0.9% 100 ml @ 25 mls/hr IVPB Q8H [facility] Rx#: [id number] Potassium Chloride 10 meq 100 100 In Water For Injection 1 100ml.bag @ 100 mls/hr IVPB Q1H [facility] Rx#: [id number] Sodium Chloride 0.9% 1, 100 20 000 ml @ 20 mls/hr IV . Q24H [facility] Rx#:[id number] Intake, IV Titration 138.187 464.151 Amount Sodium Chloride 0.9% 1, 80 000 ml @ 20 mls/hr IV . Q24H [facility] Rx#:[id number] propofoL 1,000 mg In 138.187 384.151 Empty Bag 1 bag @ Titrate IV .Q0M [facility] Rx#: [id number] Output: Urine 3200 665 50 Other: Voiding Method Indwelling Catheter - Labs CBC & Chem 7: 09/16/20 03:59 09/16/20 03:59 Labs: Abnormal Lab Results - Last 24 Hours (Table) 09/15/20 09/15/20 09/15/20 Range/Units 02:00 08:55 10:21 WBC (3.8-10.6) k/uL Neutrophils # (1.3-7.7) k/uL Lymphocytes # (1.0-4.8) k/uL ABG pO2 74 L (83-108) mmHg ABG HCO3 (21-25) mmol/L ABG Total CO2 25 H (19-24) mmol/L BUN (9-20) mg/dL Creatinine (0.66-1.25) mg/dL Glucose (74-99) mg/dL POC Glucose (mg/dL) (75-99) mg/dL Calcium (8.4-10.2) mg/dL Lactate Dehydrogenase 2045 H (313-618) U/L C-Reactive Protein 16.1 H (<1.0) mg/dL Total Protein (6.3-8.2) g/dL Procalcitonin 1.67 H (0.02-0.09) ng/mL 09/15/20 09/16/20 09/16/20 Range/Units 21:45 03:59 03:59 WBC 20.2 H (3.8-10.6) k/uL Neutrophils # 19.3 H (1.3-7.7) k/uL Lymphocytes # 0.4 L (1.0-4.8) k/uL ABG pO2 (83-108) mmHg ABG HCO3 (21-25) mmol/L ABG Total CO2 (19-24) mmol/L BUN 33 H (9-20) mg/dL Creatinine 1.31 H (0.66-1.25) mg/dL Glucose 121 H (74-99) mg/dL POC Glucose (mg/dL) 142 H (75-99) mg/dL Calcium 8.3 L (8.4-10.2) mg/dL Lactate Dehydrogenase (313-618) U/L C-Reactive Protein (<1.0) mg/dL Total Protein 6.0 L (6.3-8.2) g/dL Procalcitonin (0.02-0.09) ng/mL 09/16/20 Range/Units 04:14 WBC (3.8-10.6) k/uL Neutrophils # (1.3-7.7) k/uL Lymphocytes # (1.0-4.8) k/uL ABG pO2 72 L (83-108) mmHg ABG HCO3 27 H (21-25) mmol/L ABG Total CO2 28 H (19-24) mmol/L BUN (9-20) mg/dL Creatinine (0.66-1.25) mg/dL Glucose (74-99) mg/dL POC Glucose (mg/dL) (75-99) mg/dL Calcium (8.4-10.2) mg/dL Lactate Dehydrogenase (313-618) U/L C-Reactive Protein (<1.0) mg/dL Total Protein (6.3-8.2) g/dL Procalcitonin (0.02-0.09) ng/mL Microbiology - Last 24 Hours (Table) 09/15/20 03:15 Blood Culture - Preliminary Blood No Growth after 24 hours 09/15/20 03:00 Blood Culture - Preliminary Blood No Growth after 24 hours
[2020-09-16] MEDS: IPRATROPIUM-ALBUTEROL 3 ML NEB INHALATION SCH ×4 (08:35→19:44)
[2020-09-16] MEDS: VANCOMYCIN 1,250 MG in SODIUM CHLORIDE 0.9% 250 ML IVPB SCH (08:40)
[2020-09-16] MEDS: fentaNYL (PF). 1,000 MCG in SODIUM CHLORIDE 0.9% 80 ML IV SCH ×2 (09:15→19:44)
[2020-09-16] MEDS ORDERED: FUROSEMIDE 10 MG/ML 4 ML VIAL IV SCH (10:45)
[2020-09-16] MEDS: CHLORHEXIDINE GLUCONATE 15 ML CUP MUCOUS MEM SCH ×2 (10:58→20:53)
[2020-09-16] MEDS: CITALOPRAM HYDROBROMIDE 20 MG TAB PO SCH (10:58)
[2020-09-16] MEDS: ENOXAPARIN 40 MG/0.4 ML SYRINGE SQ SCH (10:59)
[2020-09-16] MEDS: FAMOTIDINE 20 MG/2 ML VIAL IV SCH ×2 (10:59→20:53)
[2020-09-16] MEDS: PANTOPRAZOLE 40 MG/10 ML VIAL IVP SCH (10:59)
--- NOTE | 2020-09-16 11:40 | XR ---
EXAMINATION TYPE: XR chest 1V portable DATE OF EXAM: 09/16/2020 COMPARISON: 09/16/2020 HISTORY: SOB, Follow Up FINDINGS: Indwelling tubes and catheters are unchanged. Left-sided central venous line well-positioned. No evid ence for pneumothorax. Progressive diffuse airspace infiltrates. Stable appearance of the cardio-mediastinal structures at this time. Pleural effusion unchanged. IMPRESSION: 1. Progressive diffuse airspace infiltrates. Clinical correlation and follow up until resolution is recommended.
--- NOTE | 2020-09-16 11:44 | P.PN ---
Subjective Progress Note Date: 09/16/20 This is 60-year-old white male patient who was seen in the emergency department on 09/14/2020 for evaluation of shortness of breath and chest tightness that started the night before, patient felt like he could not catch his breath, he denied any cough or congestion, denied any nausea vomiting or sweats, denied any upper back, jaw or arm pain, patient is a current smoker, his current chronic medical conditions include COPD not normally on home oxygen, chronic back pain, with history of back surgeries, marijuana use and previous episodes of pneumonia, his pulse ox was 97% on room air, he was afebrile, and his chest x- ray showed no acute cardiopulmonary process, he tested negative for COVID-19, he was given breathing treatments and steroids in the emergency department, and upon reevaluation he was feeling much better, he was discharged home on a course of steroids and albuterol inhaler. She was supposed to recheck with his primary care physician in 1-2 days, however he came back to the emergency department at around 1:00 in the morning with complaint of severe shortness of breath, patient was very hypoxic and agitated and could not answer any questions. His repeat blood work showed a white blood cell count of 36.6, hemoglobin of 15.2, his d- dimer was 2.03, his BUN is 21, creatinine is 1.28, and anion gap metabolic acidosis with a lactic acid of 7.2, troponin level was negative at less than 0.012, proBNP was elevated at 1830, patient was in severe respiratory distress, his chest x-ray showed extensive bilateral airspace disease predominantly in the mid and lower lungs that was new since the prior exam, with a differential including infectious/inflammatory process, pulmonary edema or hemorrhage. His CTA chest showed no evidence of pulmonary embolism, lung windows showed extensi ve patchy airspace disease throughout the lungs bilaterally, no mass. In view of severe respiratory distress patient was emergently intubated and placed on mechanical ventilator, and he is currently on assist control mode of ventilation with a rate of 16, tidal arm is 400, FiO2 of 50% and PEEP of 5, his blood gas postintubation showed pO2 of 256, CO2 43, pH of 7.30, patient was given IV steroids, and dose of IV Lasix, he was placed on antibiotics in the form of Zosyn and Levaquin, currently just on Zosyn, he remains intubated and sedated, currently on parenteral secondary to 1:30 ML per hour, Diprivan is at 20 mics per kilo per minute, repeat blood gas this morning shows pO2 of 74, pCO2 42, and pH of 7.35 this was done on 50% FiO2, patient was fluid resuscitated, currently his plasma lactic acid is down to 1.4, urinalysis shows moderate blood, 1+ ketones, 1+ protein, but no definite sign of infection, his urine drug screen was positive for opiates and marijuana, his COVID-19 test again was negative. Repeat CBC today shows white blood cell count of 36.6, hemoglobin is 15.2, neutrophils of 34.4, lymphocyte count of 0.7. Patient is awaiting a bed in the intensive care unit On 09/16/2020 patient seen in follow-up in intensive care unit, he remains intubated, sedated on mechanical ventilator, currently on VC plus mode of ventilation with a rate of 16, tidal arm is 400, FiO2 of 50% PEEP of 5, this morning's blood gas shows pO2 of 72, pCO2 42, pH is 7.41. He is on point in the same area 20 oh per hour, Diprivan and is currently at 65 mics per kilo per minute. Patient is a synchronous with the ventilator, he will need to be sedated adequately to improve his oxygenation and synchrony with the vent. He remains on a combination of Zosyn and vancomycin, his pro-calcitonin level did come back elevated at 1.67, his echocardiogram showed mildly. EF of 40-45%, he was seen by cardiology, and it is felt that his incentive pulmonary edema is not cardiogenic in nature and related to acute exacerbation of CHF but more likely related to bacterial pneumonia likely aspiration related to pneumonia. He is in sinus mechanism, no arrhythmias overnight, hemodynamically has been stable not requiring any vasopressor support, he has a peak pressure of 11, but his plateau pressures are elevated at 34-41 and patient will be switched assist-control mode of ventilation and adequately seated, he has been given Lasix 40 mg twice daily, and he is in negative fluid balance of 2.9 L over the last 24 hours, today's chest x-ray shows diffuse bilateral airspace infiltrates persistence with slight interval improvement. he tested negative twice for COVID 19 via the PCR test, and habits have's for SARS COVID-19 will be sent, today's lab work has been reviewed showing improvement in his leukocytosis and his white count is down to 20.2 on today's labs, hemoglobin is 13.4, his LDH was elevated at 2044, troponins were negative 2, CRP is 16.1, his proBNP is 1330 Objective - Vital Signs Vital signs: Vital Signs Temp 98.5 F 09/16/20 04:00 Pulse 56 L 09/16/20 11:00 Resp 22 09/16/20 11:00 BP 99/70 09/16/20 10:00 Pulse Ox 92 L 09/16/20 11:00 Intake & Output 09/15/20 09/16/20 09/16/20 18:59 06:59 18:59 Intake Total 138.187 764.151 662.000 Output Total 3200 665 250 Balance -3061.813 99.151 412.000 Weight 71.3 kg 71.3 kg Intake: IV 300 312 0.9NS Flush 12 Piperacillin-Tazobactam 3 100 100 .375 gm In Sodium Chloride 0.9% 100 ml @ 25 mls/hr IVPB Q8H [facility] Rx#: [id number] Potassium Chloride 10 meq 100 100 In Water For Injection 1 100ml.bag @ 100 mls/hr IVPB Q1H [facility] Rx#: [id number] Sodium Chloride 0.9% 1, 100 100 000 ml @ 20 mls/hr IV . Q24H STA Rx#:[id number] Intake, IV Titration 138.187 464.151 350.000 Amount Sodium Chloride 0.9% 1, 80 000 ml @ 20 mls/hr IV . Q24H STA Rx#:[id number] Vancomycin 1,250 mg In 250 Sodium Chloride 0.9% 250 ml @ 125 mls/hr IVPB Q12HR [facility] Rx#:[id number] propofoL 1,000 mg In 138.187 384.151 100.000 Empty Bag 1 bag @ Titrate IV .Q0M RAGHU Rx#: [id number] Output: Urine 3200 665 250 Other: Voiding Method Indwelling Catheter Indwelling Catheter ABP, PAP, CO, CI - Last Documented Arterial Blood Pressure 108/64 - Exam GENERAL EXAM: Sedated, intubated, 52-year-old white male, resting comfortably currently on VC plus mode of ventilation with a rate 16, tidal lines 400, FiO2 50% and PEEP of 5, bit asynchronous with the ventilator comfortable in no apparent distress. HEAD: Normocephalic/atraumatic. EYES: Normal reaction of pupils, equal size. Conjunctiva pink, sclera white. NOSE: Clear with pink turbinates. THROAT: No erythema or exudates. NECK: No masses, no JVD, no thyroid enlargement, no adenopathy. CHEST: No chest wall deformity. Symmetrical expansion. LUNGS: Equal air entry with no crackles, wheeze, rhonchi or dullness. CVS: Regular rate and rhythm, normal S1 and S2, no gallops, no murmurs, no rubs ABDOMEN: Soft, nontender. No hepatosplenomegaly, normal bowel sounds, no guarding or rigidity. EXTREMITIES: No clubbing, no edema, no cyanosis, 2+ pulses and upper and lower extremities. MUSCULOSKELETAL: Muscle strength and tone normal. SPINE: No scoliosis or deformity SKIN: No rashes CENTRAL NERVOUS SYSTEM: Sedated, intubated No focal deficits, tone is normal in all 4 extremities. - Labs CBC & Chem 7: 09/16/20 03:59 09/16/20 03:59 Labs: Abnormal Lab Results - Last 24 Hours (Table) 09/15/20 09/15/20 09/15/20 Range/Units 02:00 10:21 21:45 WBC (3.8-10.6) k/uL Neutrophils # (1.3-7.7) k/uL Lymphocytes # (1.0-4.8) k/uL ABG pO2 (83-108) mmHg ABG HCO3 (21-25) mmol/L ABG Total CO2 (19-24) mmol/L BUN (9-20) mg/dL Creatinine (0.66-1.25) mg/dL Glucose (74-99) mg/dL POC Glucose (mg/dL) 142 H (75-99) mg/dL Calcium (8.4-10.2) mg/dL Lactate Dehydrogenase 2045 H (313-618) U/L C-Reactive Protein 16.1 H (<1.0) mg/dL Total Protein (6.3-8.2) g/dL Procalcitonin 1.67 H (0.02-0.09) ng/mL 09/16/20 09/16/20 09/16/20 Range/Units 03:59 03:59 04:14 WBC 20.2 H (3.8-10.6) k/uL Neutrophils # 19.3 H (1.3-7.7) k/uL Lymphocytes # 0.4 L (1.0-4.8) k/uL ABG pO2 72 L (83-108) mmHg ABG HCO3 27 H (21-25) mmol/L ABG Total CO2 28 H (19-24) mmol/L BUN 33 H (9-20) mg/dL Creatinine 1.31 H (0.66-1.25) mg/dL Glucose 121 H (74-99) mg/dL POC Glucose (mg/dL) (75-99) mg/dL Calcium 8.3 L (8.4-10.2) mg/dL Lactate Dehydrogenase (313-618) U/L C-Reactive Protein (<1.0) mg/dL Total Protein 6.0 L (6.3-8.2) g/dL Procalcitonin (0.02-0.09) ng/mL Microbiology - Last 24 Hours (Table) 09/15/20 03:15 Blood Culture - Preliminary Blood No Growth after 24 hours 09/15/20 03:00 Blood Culture - Preliminary Blood No Growth after 24 hours Assessment and Plan Plan: Assessment: #1. Acute hypoxic respiratory failure related to possibility of aspiration pneumonia and pulmonary edema, COVID-19 test was negative 2. Pro-calcitonin level came back elevated at 1.67, digestive possibility of bacterial pneumonia, patient is covered with Zosyn and vancomycin #2. Acute exacerbation of COPD #3. Acute anion gap metabolic acidosis related to lactic acidosis the possibility of sepsis #4. Elevated d-dimer without CT evidence of pulmonary embolism #5. Smoker #6. Marijuana use #7. Chronic back pain #8. Cardiomyopathy with ejection fraction of 40-45% Plan: We'll continue with Zosyn and Vancomycin for antibiotic coverage, Obtain sputum culture, blood cultures are negative thus far Cut back Lasix to 40 mg once daily Echocardiogram reviewed, case was discussed with cardiology We will change the vent settings to assist control mode of ventilation with a rate of 20, Tidal volume 400, FiO2 50% and PEEP at 10 Patient needs to be adequately sedated, will be started on fentanyl infusion at 0.5-1 mics per kilo per hour IV fluids to KVO GI and DVT prophylaxis We'll add breathing treatments IV steroids Consult dietary to initiate the patient on tube feedings I performed a history & physical examination of the patient and discussed their management with my nurse practitioner, Chaparrita Eubanks. I reviewed the nurse practitioner's note and agree with the documented findings and plan of care. Lung sounds are positive for diffuse wheezes throughout the lung interiano. The findings and the impression was discussed with the patient. I attest to the documentation by the nurse practitioner. Time with Patient: Greater than 30
[2020-09-16 12:14] LABS: Glucose,Whole Blood 124 mg/dL (75-99)
--- NOTE | 2020-09-16 13:50 | P.PN ---
Subjective Progress Note Date: 09/16/20 This is a 60-year-old male patient of Dr. Granger past medical history of COPD, tobacco use and dependence, chronic marijuana use, chronic neck and back pain, recurrent depression and generalized anxiety, benign prostatic hypertrophy. Patient was seen in the emergency center on September 14 with co mplaints of difficulty breathing. His chest x-ray showed chronic changes without acute pulmonary process. He was given nebulizer treatment and Solu- Medrol 125 mg IV 1, stabilized and discharged home. He returned to the emergency center on September 15 with worsening shortness of breath and mental st atus changes. He was found to be afebrile, heart rate 101, respiratory rate 27, pulse ox 98%, blood pressure initially 180/83, subsequently 103/87. WBC 36.6, hemoglobin 15.2 and platelet count 278. Electrolytes normal. BUN 21 creatinine 1.28. Blood sugar 143. D-dimer 2.03. Calcium 10.3. Magnesium 2.0. Blood sugar 143. Total bilirubin 1.1, AST 84, ALT 21, alkaline phosphatase 118. Lactic acid 7.2. Troponin negative. ProBNP 1830. Urinalysis showed moderate blood. Coronavirus PCR not detected. EKG was a sinus rhythm with no acute ST changes. CT angiogram of the chest revealed no pulmonary and is on. Extensive patchy airspace disease throughout the lungs bilaterally may represent inflammatory process including Covid 19. Chest x-ray reveals extensive bilateral airspace disease predominantly in the mid and lower lungs since prior. Echocardiogram reveals EF of 40-45% with borderline concentric left regular hypertrophy, mild tricuspid regurgitation. Abdominal x-ray showed overall nonobstructive bowel gas pattern. He has been started on IV Lasix 40 mg every 12 hours, DuoNeb treatments, Solu-Medrol 60 mg IV every 6 hours, Zosyn, vancomycin. 09/16 patient remains intubated on 50 of FIP PEEP of 10 respiratory rate 20 assist-control. Vitals reviewed status temp of 99.2 pulse 56 respiratory rate 23 blood pressure 107/62 oxygen saturation 94% on 50% FiO2. Chest x-ray suggestive of progressive diffuse airspace infiltrates. Patient's leukocytosis has slightly improved since yesterday to 20. ABG this morning suggest a pH of 7.4 pCO2 42 pO2 of 72 and BNP suggestive, BUN 33 creatinine 1.3 glucose 121. Patient had a -3 L output yesterday. Echo obtained suggest EF of 40-45% with hypokinesis of the lateral wall of ventricle. Inflammation markers elevated including pro-calcitonin. Chest x-ray concerning for bilateral infiltrates with possibility of flash pulmonary edema versus aspiration pneumonia. Continue antibiotics including vancomycin, Zosyn and levofloxacin. Legionella and Mycoplasma ordered. COVID-19 negative twice. UDS positive for opiates and m arijuana. Blood cultures have been negative. Hold vancomycin. Sputum cultures. Lasix increased to 40 3 times a day. REVIEW OF SYSTEMS Unable to obtain due to mental status change, intubation. Objective - Vital Signs Vital signs: Vital Signs Temp 99.2 F 09/16/20 12:00 Pulse 56 L 09/16/20 13:00 Resp 22 09/16/20 13:00 BP 99/70 09/16/20 10:00 Pulse Ox 91 L 09/16/20 13:00 Intake & Output 09/15/20 09/16/20 09/16/20 18:59 06:59 18:59 Intake Total 138.187 764.151 854.373 Output Total 3200 665 420 Balance -3061.813 99.151 434.373 Weight 71.3 kg 71.3 kg Intake: IV 300 364 0.9NS Flush 24 Piperacillin-Tazobactam 3 100 100 .375 gm In Sodium Chloride 0.9% 100 ml @ 25 mls/hr IVPB Q8H [facility] Rx#: [id number] Potassium Chloride 10 meq 100 100 In Water For Injection 1 100ml.bag @ 100 mls/hr IVPB Q1H [facility] Rx#: [id number] Sodium Chloride 0.9% 1, 100 140 000 ml @ 20 mls/hr IV . Q24H [facility] Rx#:[id number] Intake, IV Titration 138.187 464.151 440.373 Amount Sodium Chloride 0.9% 1, 80 000 ml @ 20 mls/hr IV . Q24H STA Rx#:[id number] Vancomycin 1,250 mg In 250 Sodium Chloride 0.9% 250 ml @ 125 mls/hr IVPB Q12HR [facility] Rx#:[id number] propofoL 1,000 mg In 138.187 384.151 190.373 Empty Bag 1 bag @ Titrate IV .Q0M R[facility] Rx#: [id number] Tube Feeding 20 Other 30 Output: Urine 3200 665 420 Other: Voiding Method Indwelling Catheter Indwelling Catheter ABP, PAP, CO, CI - Last Documented Arterial Blood Pressure 101/60 - Exam - Constitutional General appearance: 60-year-old intubated and sedated - EENT Eyes: anicteric sclerae, PERRLA, normal appearance Elevated JVP - Neck Neck: no lymphadenopathy, normal ROM, no other, no rigidity, no stridor, no thyromegaly - Respiratory Respiratory: bilateral: Decreased air entry with crackles - Cardiovascular Rhythm: regular Heart sounds: normal: S1, S2 Abnormal Heart Sounds: no systolic murmur, no diastolic murmur - Gastrointestinal General gastrointestinal: normal bowel sounds, soft - Integumentary Integumentary: no rash - Neurologic Neurologic: Could not be evaluated as patient is sedated - Musculoskeletal Musculoskeletal: Bilateral normal tone and strength - Psychiatric Psychiatric: Intubated - Labs CBC & Chem 7: 09/16/20 03:59 09/16/20 03:59 Labs: Abnormal Lab Results - Last 24 Hours (Table) 09/15/20 09/15/20 09/16/20 Range/Units 02:00 21:45 03:59 WBC 20.2 H (3.8-10.6) k/uL Neutrophils # 19.3 H (1.3-7.7) k/uL Lymphocytes # 0.4 L (1.0-4.8) k/uL ABG pO2 (83-108) mmHg ABG HCO3 (21-25) mmol/L ABG Total CO2 (19-24) mmol/L BUN (9-20) mg/dL Creatinine (0.66-1.25) mg/dL Glucose (74-99) mg/dL POC Glucose (mg/dL) 142 H (75-99) mg/dL Calcium (8.4-10.2) mg/dL Total Protein (6.3-8.2) g/dL Procalcitonin 1.67 H (0.02-0.09) ng/mL 09/16/20 09/16/20 09/16/20 Range/Units 03:59 04:14 12:11 WBC (3.8-10.6) k/uL Neutrophils # (1.3-7.7) k/uL Lymphocytes # (1.0-4.8) k/uL ABG pO2 72 L (83-108) mmHg ABG HCO3 27 H (21-25) mmol/L ABG Total CO2 28 H (19-24) mmol/L BUN 33 H (9-20) mg/dL Creatinine 1.31 H (0.66-1.25) mg/dL Glucose 121 H (74-99) mg/dL POC Glucose (mg/dL) 124 H (75-99) mg/dL Calcium 8.3 L (8.4-10.2) mg/dL Total Protein 6.0 L (6.3-8.2) g/dL Procalcitonin (0.02-0.09) ng/mL Microbiology - Last 24 Hours (Table) 09/15/20 03:15 Blood Culture - Preliminary Blood No Growth after 24 hours 09/15/20 03:00 Blood Culture - Preliminary Blood No Growth after 24 hours Assessment and Plan Plan: 1. Acute hypoxic respiratory failure secondary to aspiration pneumonia, acute systolic heart failure and possible COPD exacerbation. Condition very suspicious for Covid 19 pneumonia. Patient has had Covid 19 testing 2 negative. Patient required intubation and on mechanical ventilation. Consult with pulmonary medicine appreciated. Continue IV Zosyn and Levaquin, Solu- Medrol 60 mg IV every 6 hours, DuoNeb treatments 4 times daily and as needed, Lasix increase d to 40 mg IV every 8 hours. Monitor I&O and daily weights, electrolyte and renal function. Patient will need speech evaluation once extubated. Inflammatory markers, pro-calcitonin elevated Blood culture negative. DC vancomycin 2. Metabolic encephalopathy secondary to sepsis and aspiration pneumonia. 3. Chronic pain syndrome. 4. Tobacco use and dependence. Hold Nicotine patch. 5. Marijuana use. 6. Recurrent depression and generalized anxiety disorder. Hold citalopram 40 mg daily. 7. Benign prostatic hypertrophy. Patient is normally on Flomax 0.4 mg daily. 8. DVT prophylaxis. Lovenox 40 mg subcu daily. 9. GI prophylaxis. Protonix 40 mg IV daily. 10 disposition to be planned based on recovery
[2020-09-16] MEDS: FUROSEMIDE 10 MG/ML 4 ML VIAL IV SCH ×2 (16:24→23:42)
[2020-09-16 17:30] LABS: Glucose,Whole Blood 128 mg/dL (75-99)
--- NOTE | 2020-09-16 19:22 | PCN ---
PROCEDURE NOTE OPERATIVE REPORT: Placement of the left subclavian central line. PREOPERATIVE DIAGNOSES: Acute hypoxic respiratory failure, secondary to aspiration pneumonia, possible diastolic congestive heart failure. POSTOP DIAGNOSES: Acute hypoxic respiratory failure, secondary to aspiration pneumonia, possible diastolic congestive heart failure. ANESTHESIA USED: 2 mL of 1% lidocaine. PROCEDURE DETAILS: The patient was placed in a Trendelenburg position, the area below the left clavicle was prepared in a sterile fashion and drapes were applied. The area below the clavicle was locally anesthetized with lidocaine. Then using the infraclavicular approach, the left subclavian vein was easily cannulated, a guidewire was placed. A triple-lumen catheter was inserted over the guidewire, and the guidewire was removed. The area around the guidewire was dilated earlier before placement of the triple-lumen catheter over the guidewire. The procedure was well tolerated, line was secured using 3.0 silk sutures. Chest x-ray postoperatively showed no evidence of any complications and good placement of the line. MMODL / IJN: [id number] /
--- NOTE | 2020-09-16 19:22 | PCN ---
PROCEDURE NOTE OPERATIVE REPORT: Placement of a left radial arterial line. PREOPERATIVE DIAGNOSIS: Hypoxic respiratory failure/pneumonia. POSTOPERATIVE DIAGNOSIS: Hypoxic respiratory failure/pneumonia. ANESTHESIA: None deployed. PROCEDURE DETAILS: The left wrist was prepared in a sterile fashion. The drapes were applied. The left radial artery was palpated, cannulated, and a guidewire was placed. A Cook catheter was inserted over the guidewire, and the guidewire was removed. Good blood flow, good waveform noted. No evidence of any complications. The line was secured using 3.0 silk sutures. MMODL / IJN: [id number] /
[2020-09-17] MEDS ORDERED: Potassium Replacement Protocol 1 EACH MISC MISCELLANE PRN ×2 (00:39→15:19)
[2020-09-17 00:43] LABS: Glucose,Whole Blood 164 mg/dL (75-99)
[2020-09-17] MEDS ORDERED: POTASSIUM BICARBONATE/CIT AC 20 MEQ TABLET.EFF NG-TUBE SCH ×2 (01:00→16:00)
[2020-09-17] MEDS: PIPERACILLIN-TAZOBACTAM 3.375 GM in SODIUM CHLORIDE 0.9% 100 ML IVPB SCH ×3 (03:54→20:36)
[2020-09-17 04:07] LABS: Basophils % (A) 0 %; Eosinophils # (A) 0.1 k/uL (0-0.7); Eosinophils % (A) 1 %; HCT 38.1 % (39.0-53.0); HGB 13.1 gm/dL (13.0-17.5); Lymphocytes # (A) 0.3 k/uL (1.0-4.8); Lymphocytes % (A) 2 %; MCH 31.1 pg (25.0-35.0); MCHC 34.4 g/dL (31.0-37.0); MCV 90.3 fL (80.0-100.0); Mean Platelet Volume 10.1; Monocytes # (A) 0.4 k/uL (0-1.0); Monocytes % (A) 3 %; Neutrophils # (A) 11.9 k/uL (1.3-7.7); Neutrophils % (A) 94 %; Platelet Count 186 k/uL (150-450); RBC 4.22 m/uL (4.30-5.90); RDW 13.3 % (11.5-15.5); WBC 12.7 k/uL (3.8-10.6)
[2020-09-17 04:18] LABS: Calcium 7.8 mg/dL (8.4-10.2)
[2020-09-17 05:04] LABS: Mycoplasma IgG Antibody (EIA) 3.4 INDEX (<=0.90); Mycoplasma IgM Antibody 0.12 INDEX (<=0.90)
[2020-09-17] MEDS: methylPREDNISolone SOD SUCCI 125 MG/2 ML VIAL IV SCH ×4 (05:19→23:37)
[2020-09-17 05:22] LABS: ABG Base Excess 4.3 mmol/L; ABG HCO3 30 mmol/L (21-25); ABG Oxygen Saturation 99.3 % (94-97); ABG PCO2 51 mmHg (35-45); ABG PH 7.38 (7.35-7.45); ABG PO2 139 mmHg (83-108); ABG TCO2 31 mmol/L (19-24)
[2020-09-17 06:03] LABS: Allen Test Performed? no
[2020-09-17] MEDS ORDERED: VANCOMYCIN TROUGH DUE 1 EACH MISC MISCELLANE ONE (08:00)
[2020-09-17] MEDS: IPRATROPIUM-ALBUTEROL 3 ML NEB INHALATION SCH ×4 (08:02→20:18)
[2020-09-17] MEDS: ALBUTEROL HFA INHALER INHALATION SCH ×4 (08:02→19:49)
[2020-09-17] MEDS: TIOTROPIUM 2.5 MCG INHALER INHALATION SCH (08:02)
--- NOTE | 2020-09-17 08:14 | XR ---
EXAMINATION TYPE: XR chest 1V portable DATE OF EXAM: 09/17/2020 COMPARISON: 09/16/2020 HISTORY: SOB, Follow Up FINDINGS: Indwelling tubes and catheters are unchanged. Diffuse infiltrates are seen throughout both lung interiano. Overall there appears to be slight interval improvement. Stable appearance of the cardio-mediastinal structures at this time. Pleural effusion unchanged. IMPRESSION: 1. Slight improvement in diffuse airspace infiltrates. Clinical correlation and follow up until resol ution is recommended.
[2020-09-17] MEDS: CITALOPRAM HYDROBROMIDE 20 MG TAB PO SCH (09:26)
[2020-09-17] MEDS: CHLORHEXIDINE GLUCONATE 15 ML CUP MUCOUS MEM SCH ×2 (09:26→20:36)
[2020-09-17] MEDS: ENOXAPARIN 40 MG/0.4 ML SYRINGE SQ SCH (09:26)
[2020-09-17] MEDS: FAMOTIDINE 20 MG/2 ML VIAL IV SCH ×2 (09:26→20:36)
[2020-09-17] MEDS: PANTOPRAZOLE 40 MG/10 ML VIAL IVP SCH (09:26)
[2020-09-17] MEDS: FUROSEMIDE 10 MG/ML 4 ML VIAL IV SCH (09:27)
[2020-09-17] MEDS: fentaNYL (PF). 1,000 MCG in SODIUM CHLORIDE 0.9% 80 ML IV SCH ×2 (09:27→22:30)
[2020-09-17 11:34] LABS: Glucose,Whole Blood 179 mg/dL (75-99)
[2020-09-17] MEDS: INSULIN ASPART (NovoLOG) 100 UNIT/ML VIAL SQ SCH ×3 (11:49→23:37)
--- NOTE | 2020-09-17 12:38 | P.PN ---
Subjective Progress Note Date: 09/17/20 This is 60-year-old white male patient who was seen in the emergency department on 09/14/2020 for evaluation of shortness of breath and chest tightness that started the night before, patient felt like he could not catch his breath, he denied any cough or congestion, denied any nausea vomiting or sweats, denied any upper back, jaw or arm pain, patient is a current smoker, his current chronic medical conditions include COPD not normally on home oxygen, chronic back pain, with history of back surgeries, marijuana use and previous episodes of pneumonia, his pulse ox was 97% on room air, he was afebrile, and his chest x- ray showed no acute cardiopulmonary process, he tested negative for COVID-19, he was given breathing treatments and steroids in the emergency department, and upon reevaluation he was feeling much better, he was discharged home on a course of steroids and albuterol inhaler. She was supposed to recheck with his primary care physician in 1-2 days, however he came back to the emergency department at around 1:00 in the morning with complaint of severe shortness of breath, patient was very hypoxic and agitated and could not answer any questions. His repeat blood work showed a white blood cell count of 36.6, hemoglobin of 15.2, his d- dimer was 2.03, his BUN is 21, creatinine is 1.28, and anion gap metabolic acidosis with a lactic acid of 7.2, troponin level was negative at less than 0.012, proBNP was elevated at 1830, patient was in severe respiratory distress, his chest x-ray showed extensive bilateral airspace disease predominantly in the mid and lower lungs that was new since the prior exam, with a differential including infectious/inflammatory process, pulmonary edema or hemorrhage. His CTA chest showed no evidence of pulmonary embolism, lung windows showed extensi ve patchy airspace disease throughout the lungs bilaterally, no mass. In view of severe respiratory distress patient was emergently intubated and placed on mechanical ventilator, and he is currently on assist control mode of ventilation with a rate of 16, tidal arm is 400, FiO2 of 50% and PEEP of 5, his blood gas postintubation showed pO2 of 256, CO2 43, pH of 7.30, patient was given IV steroids, and dose of IV Lasix, he was placed on antibiotics in the form of Zosyn and Levaquin, currently just on Zosyn, he remains intubated and sedated, currently on parenteral secondary to 1:30 ML per hour, Diprivan is at 20 mics per kilo per minute, repeat blood gas this morning shows pO2 of 74, pCO2 42, and pH of 7.35 this was done on 50% FiO2, patient was fluid resuscitated, currently his plasma lactic acid is down to 1.4, urinalysis shows moderate blood, 1+ ketones, 1+ protein, but no definite sign of infection, his urine drug screen was positive for opiates and marijuana, his COVID-19 test again was negative. Repeat CBC today shows white blood cell count of 36.6, hemoglobin is 15.2, neutrophils of 34.4, lymphocyte count of 0.7. Patient is awaiting a bed in the intensive care unit On 09/16/2020 patient seen in follow-up in intensive care unit, he remains intubated, sedated on mechanical ventilator, currently on VC plus mode of ventilation with a rate of 16, tidal arm is 400, FiO2 of 50% PEEP of 5, this morning's blood gas shows pO2 of 72, pCO2 42, pH is 7.41. He is on point in the same area 20 oh per hour, Diprivan and is currently at 65 mics per kilo per minute. Patient is a synchronous with the ventilator, he will need to be sedated adequately to improve his oxygenation and synchrony with the vent. He remains on a combination of Zosyn and vancomycin, his pro-calcitonin level did come back elevated at 1.67, his echocardiogram showed mildly. EF of 40-45%, he was seen by cardiology, and it is felt that his incentive pulmonary edema is not cardiogenic in nature and related to acute exacerbation of CHF but more likely related to bacterial pneumonia likely aspiration related to pneumonia. He is in sinus mechanism, no arrhythmias overnight, hemodynamically has been stable not requiring any vasopressor support, he has a peak pressure of 11, but his plateau pressures are elevated at 34-41 and patient will be switched assist-control mode of ventilation and adequately seated, he has been given Lasix 40 mg twice daily, and he is in negative fluid balance of 2.9 L over the last 24 hours, today's chest x-ray shows diffuse bilateral airspace infiltrates persistence with slight interval improvement. he tested negative twice for COVID 19 via the PCR test, and habits have's for SARS COVID-19 will be sent, today's lab work has been reviewed showing improvement in his leukocytosis and his white count is down to 20.2 on today's labs, hemoglobin is 13.4, his LDH was elevated at 2044, troponins were negative 2, CRP is 16.1, his proBNP is 1330 On 09/17/2020, patient's follow-up in the intensive care unit, he remains sedated, intubated, currently on assist control mode of ventilation with a rate of 20, count was 400, FiO2 50% and PEEP of 10, his blood gas this morning showed pO2 of 129, pCO2 of 51, and pH of 7.38, and this was done on FiO2 of 50%, he is currently on point in the same at 20 ML per hour, Diprivan is a 70 mics per kilo per minute, and fentanyl infusion is currently at 1 mcg/kg per hour. This morning's chest x-ray has been reviewed showing slight improvement in diffuse airspace infiltrates, patient remains on antibiotics in the form of Zosyn. Vancomycin has been discontinued, he was also diuresed, and Lasix is currently at 40 mg every 8 hours, he has positive fluid balance, +199 over the last 24 hours, and prior to that he was -2.9 the day before, hemodynamically stable, he is in sinus mechanism, is not requiring any vasopressor support, doing well, his CVP today's down to 9, yesterday it was 16. However this morning's labs show some worsening in his renal function and his BUN is 50, and creatinine is up to 1.49, heart rate is 109, CO2 is 31, sodium is 144, potassium is 4.0, white count is improving, and is down to 12.7 on today's labs, hemoglobin is 13.1. Patient tested negative for COVID-19 to be a PCR test, urine Legionella antigen was negative, SARS COVID-19 antibody test was nonreactive. No acute events overnight, tube feedings are vital high-protein at 10 ML per hour with standard water flushes, no other acute events overnight, S x-ray findings improving, labs improving, vital signs have been stable Objective - Vital Signs Vital signs: Vital Signs Temp 98.1 F 09/17/20 12:00 Pulse 46 L 09/17/20 12:00 Resp 20 09/17/20 12:00 BP 112/77 09/17/20 09:00 Pulse Ox 98 09/17/20 12:00 Intake & Output 09/16/20 09/17/20 09/17/20 18:59 06:59 18:59 Intake Total 7128.059 9528.696 573.783 Output Total 890 1385 990 Balance 320.360 -121.304 -416.217 Weight 71.3 kg 72.2 kg Intake: IV 494 472 36 0.9NS Flush 54 72 36 Piperacillin-Tazobactam 3 100 200 .375 gm In Sodium Chloride 0.9% 100 ml @ 25 mls/hr IVPB Q8H [facility] Rx#: [id number] Potassium Chloride 10 meq 100 In Water For Injection 1 100ml.bag @ 100 mls/hr IVPB Q1H [facility] Rx#: [id number] Sodium Chloride 0.9% 1, 240 200 000 ml @ 20 mls/hr IV . Q24H STA Rx#:[id number] Intake, IV Titration 586.360 461.696 289.783 Amount Piperacillin-Tazobactam 3 100 .375 gm In Sodium Chloride 0.9% 100 ml @ 25 mls/hr IVPB Q8H [facility] Rx#: [id number] Vancomycin 1,250 mg In 250 Sodium Chloride 0.9% 250 ml @ 125 mls/hr IVPB Q12HR [facility] Rx#:[id number] fentaNYL (PF). 1,000 mcg 74.746 97.8 In Sodium Chloride 0.9% 80 ml @ Per Protocol IV . Q0M [facility] Rx#:[id number] propofoL 1,000 mg In 336.360 386.950 91.983 Empty Bag 1 bag @ Titrate IV .Q0M [facility] Rx#: [id number] Tube Feeding 70 240 188 Other 60 90 60 Output: Urine 890 1385 990 Other: Voiding Method Indwelling Catheter Indwelling Catheter Indwelling Catheter ABP, PAP, CO, CI - Last Documented Arterial Blood Pressure 122/64 - Exam GENERAL EXAM: Sedated, intubated, 52-year-old white male, resting comfortably currently on VC plus mode of ventilation with a rate 16, tidal lines 400, FiO2 50% and PEEP of 10, comfortable in no apparent distress. HEAD: Normocephalic/atraumatic. EYES: Normal reaction of pupils, equal size. Conjunctiva pink, sclera white. NOSE: Clear with pink turbinates. THROAT: No erythema or exudates. NECK: No masses, no JVD, no thyroid enlargement, no adenopathy. CHEST: No chest wall deformity. Symmetrical expansion. LUNGS: Equal air entry with no crackles, wheeze, rhonchi or dullness. CVS: Regular rate and rhythm, normal S1 and S2, no gallops, no murmurs, no rubs ABDOMEN: Soft, nontender. No hepatosplenomegaly, normal bowel sounds, no guarding or rigidity. EXTREMITIES: No clubbing, no edema, no cyanosis, 2+ pulses and upper and lower extremities. MUSCULOSKELETAL: Muscle strength and tone normal. SPINE: No scoliosis or deformity SKIN: No rashes CENTRAL NERVOUS SYSTEM: Sedated, intubated No focal deficits, tone is normal in all 4 extremities. - Labs CBC & Chem 7: 09/17/20 03:55 09/17/20 03:55 Labs: Abnormal Lab Results - Last 24 Hours (Table) 09/15/20 09/16/20 09/17/20 Range/Units 11:35 17:29 00:40 WBC (3.8-10.6) k/uL RBC (4.30-5.90) m/uL Hct (39.0-53.0) % Neutrophils # (1.3-7.7) k/uL Lymphocytes # (1.0-4.8) k/uL ABG pCO2 (35-45) mmHg ABG pO2 (83-108) mmHg ABG HCO3 (21-25) mmol/L ABG Total CO2 (19-24) mmol/L ABG O2 Saturation (94-97) % Chloride (98-107) mmol/L Carbon Dioxide (22-30) mmol/L BUN (9-20) mg/dL Creatinine (0.66-1.25) mg/dL Glucose (74-99) mg/dL POC Glucose (mg/dL) 128 H 164 H (75-99) mg/dL Calcium (8.4-10.2) mg/dL Mycoplasma pneumon IgG 3.40 H (<=0.90) INDEX 09/17/20 09/17/20 09/17/20 Range/Units 03:55 03:55 05:20 WBC 12.7 H (3.8-10.6) k/uL RBC 4.22 L (4.30-5.90) m/uL Hct 38.1 L (39.0-53.0) % Neutrophils # 11.9 H (1.3-7.7) k/uL Lymphocytes # 0.3 L (1.0-4.8) k/uL ABG pCO2 51 H (35-45) mmHg ABG pO2 139 H (83-108) mmHg ABG HCO3 30 H (21-25) mmol/L ABG Total CO2 31 H (19-24) mmol/L ABG O2 Saturation 99.3 H (94-97) % Chloride 109 H (98-107) mmol/L Carbon Dioxide 31 H (22-30) mmol/L BUN 50 H (9-20) mg/dL Creatinine 1.49 H (0.66-1.25) mg/dL Glucose 152 H (74-99) mg/dL POC Glucose (mg/dL) (75-99) mg/dL Calcium 7.8 L (8.4-10.2) mg/dL Mycoplasma pneumon IgG (<=0.90) INDEX 09/17/20 Range/Units 11:32 WBC (3.8-10.6) k/uL RBC (4.30-5.90) m/uL Hct (39.0-53.0) % Neutrophils # (1.3-7.7) k/uL Lymphocytes # (1.0-4.8) k/uL ABG pCO2 (35-45) mmHg ABG pO2 (83-108) mmHg ABG HCO3 (21-25) mmol/L ABG Total CO2 (19-24) mmol/L ABG O2 Saturation (94-97) % Chloride (98-107) mmol/L Carbon Dioxide (22-30) mmol/L BUN (9-20) mg/dL Creatinine (0.66-1.25) mg/dL Glucose (74-99) mg/dL POC Glucose (mg/dL) 179 H (75-99) mg/dL Calcium (8.4-10.2) mg/dL Mycoplasma pneumon IgG (<=0.90) INDEX Microbiology - Last 24 Hours (Table) 09/15/20 03:15 Blood Culture - Preliminary Blood No Growth after 48 hours 09/15/20 03:00 Blood Culture - Preliminary Blood No Growth after 48 hours 09/16/20 12:30 Gram Stain - Preliminary Sputum Sputum Culture - Preliminary Assessment and Plan Plan: Assessment: #1. Acute hypoxic respiratory failure related to possibility of aspiration pn eumonia and pulmonary edema, COVID-19 test was negative 2. Pro-calcitonin level came back elevated at 1.67, digestive possibility of bacterial pneumonia, patient is covered with Zosyn and vancomycin #2. Acute exacerbation of COPD #3. Acute anion gap metabolic acidosis related to lactic acidosis the possibility of sepsis, improved #4. Elevated d-dimer without CT evidence of pulmonary embolism #5. Smoker #6. Marijuana use #7. Chronic back pain #8. Cardiomyopathy with ejection fraction of 40-45% Plan: Continue current antibiotics, and patient is currently just on Zosyn No fever, vital signs are stable, hemodynamically stable, leukocytosis is improving PEEP is down to 8, wean FiO2 to maintain O2 saturations at 92% We'll cut back his Lasix to once daily Echocardiogram has been noted Advance tube feedings per RD recommendations Continue GI and DVT prophylaxis T 90 steroids Repeat chest x-ray in the morning, follow-up labs, DIS in the morning and will assess for readiness for SBT trials I performed a history & physical examination of the patient and discussed their management with my nurse practitioner, Chaparrita Eubanks. I reviewed the nurse practitioner's note and agree with the documented findings and plan of care. Lung sounds are positive for diffuse wheezes throughout the lung interiano. The findings and the impression was discussed with the patient. I attest to the documentation by the nurse practitioner. Time with Patient: Greater than 30
--- NOTE | 2020-09-17 14:39 | P.PN ---
Subjective Progress Note Date: 09/17/20 This is a 60-year-old male patient of Dr. Granger past medical history of COPD, tobacco use and dependence, chronic marijuana use, chronic neck and back pain, recurrent depression and generalized anxiety, benign prostatic hypertrophy. Patient was seen in the emergency center on September 14 with co mplaints of difficulty breathing. His chest x-ray showed chronic changes without acute pulmonary process. He was given nebulizer treatment and Solu- Medrol 125 mg IV 1, stabilized and discharged home. He returned to the emergency center on September 15 with worsening shortness of breath and mental st atus changes. He was found to be afebrile, heart rate 101, respiratory rate 27, pulse ox 98%, blood pressure initially 180/83, subsequently 103/87. WBC 36.6, hemoglobin 15.2 and platelet count 278. Electrolytes normal. BUN 21 creatinine 1.28. Blood sugar 143. D-dimer 2.03. Calcium 10.3. Magnesium 2.0. Blood sugar 143. Total bilirubin 1.1, AST 84, ALT 21, alkaline phosphatase 118. Lactic acid 7.2. Troponin negative. ProBNP 1830. Urinalysis showed moderate blood. Coronavirus PCR not detected. EKG was a sinus rhythm with no acute ST changes. CT angiogram of the chest revealed no pulmonary and is on. Extensive patchy airspace disease throughout the lungs bilaterally may represent inflammatory process including Covid 19. Chest x-ray reveals extensive bilateral airspace disease predominantly in the mid and lower lungs since prior. Echocardiogram reveals EF of 40-45% with borderline concentric left regular hypertrophy, mild tricuspid regurgitation. Abdominal x-ray showed overall nonobstructive bowel gas pattern. He has been started on IV Lasix 40 mg every 12 hours, DuoNeb treatments, Solu-Medrol 60 mg IV every 6 hours, Zosyn, vancomycin. 09/16 patient remains intubated on 50 of FIP PEEP of 10 respiratory rate 20 assist-control. Vitals reviewed status temp of 99.2 pulse 56 respiratory rate 23 blood pressure 107/62 oxygen saturation 94% on 50% FiO2. Chest x-ray suggestive of progressive diffuse airspace infiltrates. Patient's leukocytosis has slightly improved since yesterday to 20. ABG this morning suggest a pH of 7.4 pCO2 42 pO2 of 72 and BNP suggestive, BUN 33 creatinine 1.3 glucose 121. Patient had a -3 L output yesterday. Echo obtained suggest EF of 40-45% with hypokinesis of the lateral wall of ventricle. Inflammation markers elevated including pro-calcitonin. Chest x-ray concerning for bilateral infiltrates with possibility of flash pulmonary edema versus aspiration pneumonia. Continue antibiotics including vancomycin, Zosyn and levofloxacin. Legionella and Mycoplasma ordered. COVID-19 negative twice. UDS positive for opiates and m arijuana. Blood cultures have been negative. Hold vancomycin. Sputum cultures. Lasix increased to 40 3 times a day. 09/17 patient examined bedside. Patient's bedside 7. Patient remains int ubated on 45% FiO2 and PEEP of 8 respiratory rate 20 and tidal volume 400 assist-control. Patient's blood gas this morning shows a pO2 of 129 pCO2 51. 7.38. Continuous remain on propofol and fentanyl infusion. Patient's chest x- ray this morning shows slight improvement in his diffuse airspace infiltrate. Patient remains on Zosyn and Lasix. Lasix was reduced from 3 times a day to once a day to prevent kidney damage. Patient has been diuresing well. Vancomycin was discontinued yesterday. Patient has a positive fluid balance over the last 24 hours. He remains in sinus rhythm. No requirement of pressors. CBC has improved to 7 from 16. An assessment of patient's lab patient does have a leukocytosis of 12.7 which is improved from 20 BUN has increased from 33 to 50 creatinine increased from 1.3 to 1.49. Glucose of 179 calcium 7.8. Legionella is negative, mycoplasma IgM is negative. Continuing denies antibiotics.Zosyn. We'll place patient on insulin sliding scale. Vent management per pulmonary. REVIEW OF SYSTEMS Unable to obtain due to mental status change, intubation. Objective - Vital Signs Vital signs: Vital Signs Temp 98.1 F 09/17/20 12:00 Pulse 54 L 09/17/20 14:00 Resp 20 09/17/20 14:00 BP 112/77 09/17/20 09:00 Pulse Ox 97 09/17/20 14:00 Intake & Output 09/16/20 09/17/20 09/17/20 18:59 06:59 18:59 Intake Total 1601.317 7249.696 759.325 Output Total 890 1385 1260 Balance 320.360 -121.304 -500.675 Weight 71.3 kg 72.2 kg 72.2 kg Intake: IV 494 472 48 0.9NS Flush 54 72 48 Piperacillin-Tazobactam 3 100 200 .375 gm In Sodium Chloride 0.9% 100 ml @ 25 mls/hr IVPB Q8H [facility] Rx#: [id number] Potassium Chloride 10 meq 100 In Water For Injection 1 100ml.bag @ 100 mls/hr IVPB Q1H [facility] Rx#: [id number] Sodium Chloride 0.9% 1, 240 200 000 ml @ 20 mls/hr IV . Q24H STA Rx#:[id number] Intake, IV Titration 586.360 461.696 387.325 Amount Piperacillin-Tazobactam 3 100 .375 gm In Sodium Chloride 0.9% 100 ml @ 25 mls/hr IVPB Q8H [facility] Rx#: [id number] Vancomycin 1,250 mg In 250 Sodium Chloride 0.9% 250 ml @ 125 mls/hr IVPB Q12HR [facility] Rx#:[id number] fentaNYL (PF). 1,000 mcg 74.746 97.8 In Sodium Chloride 0.9% 80 ml @ Per Protocol IV . Q0M [facility] Rx#:[id number] propofoL 1,000 mg In 336.360 386.950 189.525 Empty Bag 1 bag @ Titrate IV .Q0M [facility] Rx#: [id number] Tube Feeding 70 240 264 Other 60 90 60 Output: Urine 890 1385 1260 Other: Voiding Method Indwelling Catheter Indwelling Catheter Indwelling Catheter ABP, PAP, CO, CI - Last Documented Arterial Blood Pressure 121/64 - Exam - Constitutional General appearance: 60-year-old intubated and sedated - EENT Eyes: anicteric sclerae, PERRLA, normal appearance Elevated JVP - Neck Neck: no lymphadenopathy, normal ROM, no other, no rigidity, no stridor, no thyromegaly - Respiratory Respiratory: bilateral: Decreased air entry with crackles - Cardiovascular Rhythm: regular Heart sounds: normal: S1, S2 Abnormal Heart Sounds: no systolic murmur, no diastolic murmur - Gastrointestinal General gastrointestinal: normal bowel sounds, soft - Integumentary Integumentary: no rash - Neurologic Neurologic: Could not be evaluated as patient is sedated - Musculoskeletal Musculoskeletal: Bilateral normal tone and strength - Psychiatric Psychiatric: Intubated - Labs CBC & Chem 7: 09/17/20 03:55 09/17/20 03:55 Labs: Abnormal Lab Results - Last 24 Hours (Table) 09/15/20 09/16/20 09/17/20 Range/Units 11:35 17:29 00:40 WBC (3.8-10.6) k/uL RBC (4.30-5.90) m/uL Hct (39.0-53.0) % Neutrophils # (1.3-7.7) k/uL Lymphocytes # (1.0-4.8) k/uL ABG pCO2 (35-45) mmHg ABG pO2 (83-108) mmHg ABG HCO3 (21-25) mmol/L ABG Total CO2 (19-24) mmol/L ABG O2 Saturation (94-97) % Chloride (98-107) mmol/L Carbon Dioxide (22-30) mmol/L BUN (9-20) mg/dL Creatinine (0.66-1.25) mg/dL Glucose (74-99) mg/dL POC Glucose (mg/dL) 128 H 164 H (75-99) mg/dL Calcium (8.4-10.2) mg/dL Mycoplasma pneumon IgG 3.40 H (<=0.90) INDEX 09/17/20 09/17/20 09/17/20 Range/Units 03:55 03:55 05:20 WBC 12.7 H (3.8-10.6) k/uL RBC 4.22 L (4.30-5.90) m/uL Hct 38.1 L (39.0-53.0) % Neutrophils # 11.9 H (1.3-7.7) k/uL Lymphocytes # 0.3 L (1.0-4.8) k/uL ABG pCO2 51 H (35-45) mmHg ABG pO2 139 H (83-108) mmHg ABG HCO3 30 H (21-25) mmol/L ABG Total CO2 31 H (19-24) mmol/L ABG O2 Saturation 99.3 H (94-97) % Chloride 109 H (98-107) mmol/L Carbon Dioxide 31 H (22-30) mmol/L BUN 50 H (9-20) mg/dL Creatinine 1.49 H (0.66-1.25) mg/dL Glucose 152 H (74-99) mg/dL POC Glucose (mg/dL) (75-99) mg/dL Calcium 7.8 L (8.4-10.2) mg/dL Mycoplasma pneumon IgG (<=0.90) INDEX 09/17/20 Range/Units 11:32 WBC (3.8-10.6) k/uL RBC (4.30-5.90) m/uL Hct (39.0-53.0) % Neutrophils # (1.3-7.7) k/uL Lymphocytes # (1.0-4.8) k/uL ABG pCO2 (35-45) mmHg ABG pO2 (83-108) mmHg ABG HCO3 (21-25) mmol/L ABG Total CO2 (19-24) mmol/L ABG O2 Saturation (94-97) % Chloride (98-107) mmol/L Carbon Dioxide (22-30) mmol/L BUN (9-20) mg/dL Creatinine (0.66-1.25) mg/dL Glucose (74-99) mg/dL POC Glucose (mg/dL) 179 H (75-99) mg/dL Calcium (8.4-10.2) mg/dL Mycoplasma pneumon IgG (<=0.90) INDEX Microbiology - Last 24 Hours (Table) 09/15/20 03:15 Blood Culture - Preliminary Blood No Growth after 48 hours 09/15/20 03:00 Blood Culture - Preliminary Blood No Growth after 48 hours 09/16/20 12:30 Gram Stain - Preliminary Sputum Sputum Culture - Preliminary Assessment and Plan Plan: 1. Acute hypoxic respiratory failure secondary to aspiration pneumonia, acute systolic heart failure and possible COPD exacerbation. Condition very suspicious for Covid 19 pneumonia. Patient has had Covid 19 testing 2 negative. Patient required intubation and on mechanical ventilation. Consult with pulmonary medicine appreciated. Continue IV Zosyn Solu-Medrol 60 mg IV every 6 hours, DuoNeb treatments 4 times daily and as needed, Lasix decreased to 40 mg IV daily per pulmonary Monitor I&O and daily weights, electrolyte and renal function. Patient will need speech evaluation once extubated. Inflammatory markers, pro-calcitonin elevated Blood culture negative. DC vancomycin 2. Metabolic encephalopathy secondary to sepsis and aspiration pneumonia. 3. Chronic pain syndrome. 4. Tobacco use and dependence. Hold Nicotine patch. 5. Marijuana use. 6. Recurrent depression and generalized anxiety disorder. Hold citalopram 40 mg daily. 7. Benign prostatic hypertrophy. Patient is normally on Flomax 0.4 mg daily. 8. DVT prophylaxis. Lovenox 40 mg subcu daily. 9. GI prophylaxis. Protonix 40 mg IV daily. 10 disposition to be planned based on recovery 11 hyperglycemia on steroids we will initiate insulin sliding scale
[2020-09-17 17:10] LABS: Glucose,Whole Blood 168 mg/dL (75-99)
[2020-09-17 23:34] LABS: Glucose,Whole Blood 188 mg/dL (75-99)
[2020-09-18] MEDS: PIPERACILLIN-TAZOBACTAM 3.375 GM in SODIUM CHLORIDE 0.9% 100 ML IVPB SCH ×3 (03:34→20:10)
[2020-09-18 04:14] LABS: Basophils % (A) 0 %; Eosinophils % (A) 0 %; HGB 12.9 gm/dL (13.0-17.5); Lymphocytes # (A) 0.5 k/uL (1.0-4.8); Lymphocytes % (A) 5 %; MCH 30.9 pg (25.0-35.0); MCHC 33.9 g/dL (31.0-37.0); MCV 91.1 fL (80.0-100.0); Mean Platelet Volume 8.8; Monocytes # (A) 0.5 k/uL (0-1.0); Monocytes % (A) 5 %; Neutrophils % (A) 90 %; Platelet Count 192 k/uL (150-450); RBC 4.17 m/uL (4.30-5.90); RDW 13.3 % (11.5-15.5)
[2020-09-18 04:24] LABS: African American GFR (CKD) >90 (>60 ml/min/1.73 sqM); Anion Gap 3 mmol/L; Blood Urea Nitrogen 49 mg/dL (9-20); Calcium 8.4 mg/dL (8.4-10.2); Carbon Dioxide 34 mmol/L (22-30); Chloride 108 mmol/L (98-107); Glucose 136 mg/dL (74-99); Non-African American GFR(CKD) 81 (>60 ml/min/1.73 sqM); Potassium 3.9 mmol/L (3.5-5.1); Sodium 145 mmol/L (137-145)
[2020-09-18] MEDS ORDERED: Potassium Replacement Protocol 1 EACH MISC MISCELLANE PRN ×2 (04:31→15:52)
[2020-09-18 04:44] LABS: ABG Base Excess 9.3 mmol/L; ABG HCO3 34 mmol/L (21-25); ABG Oxygen Saturation 99.2 % (94-97); ABG PCO2 51 mmHg (35-45); ABG PH 7.42 (7.35-7.45); ABG PO2 149 mmHg (83-108); ABG TCO2 35 mmol/L (19-24); Allen Test Performed? Yes
[2020-09-18] MEDS ORDERED: POTASSIUM BICARBONATE/CIT AC 20 MEQ TABLET.EFF NG-TUBE SCH (05:00)
[2020-09-18] MEDS: INSULIN ASPART (NovoLOG) 100 UNIT/ML VIAL SQ SCH ×4 (05:02→23:28)
[2020-09-18] MEDS: methylPREDNISolone SOD SUCCI 125 MG/2 ML VIAL IV SCH ×4 (05:02→23:28)
--- NOTE | 2020-09-18 06:56 | XR ---
EXAMINATION TYPE: XR chest 1V portable DATE OF EXAM: 09/18/2020 COMPARISON: Chest x-ray 09/17/2020 HISTORY: Pneumonia TECHNIQUE: Single frontal view of the chest is obtained. FINDINGS: There is some improvement in aeration as compared to prior exam. Endotracheal tube, NG tub e, left-sided central venous catheter are stable. No pneumothorax or pleural effusion. Cardiomediasti nal silhouette is within normal limits. IMPRESSION: Suspect some improvement in aeration
[2020-09-18] MEDS: ALBUTEROL HFA INHALER INHALATION SCH ×4 (07:28→20:22)
[2020-09-18] MEDS: IPRATROPIUM-ALBUTEROL 3 ML NEB INHALATION SCH ×5 (07:28→20:22)
[2020-09-18] MEDS: TIOTROPIUM 2.5 MCG INHALER INHALATION SCH (07:52)
[2020-09-18] MEDS: FUROSEMIDE 10 MG/ML 4 ML VIAL IV SCH (08:47)
[2020-09-18] MEDS: CITALOPRAM HYDROBROMIDE 20 MG TAB PO SCH (08:47)
[2020-09-18] MEDS: PANTOPRAZOLE 40 MG/10 ML VIAL IVP SCH (08:47)
[2020-09-18] MEDS: ENOXAPARIN 40 MG/0.4 ML SYRINGE SQ SCH (08:48)
[2020-09-18] MEDS: CHLORHEXIDINE GLUCONATE 15 ML CUP MUCOUS MEM SCH ×2 (08:48→21:20)
[2020-09-18] MEDS: FAMOTIDINE 20 MG/2 ML VIAL IV SCH ×2 (08:48→21:20)
--- NOTE | 2020-09-18 10:06 | P.PN ---
Subjective Progress Note Date: 09/18/20 This is 60-year-old white male patient who was seen in the emergency department on 09/14/2020 for evaluation of shortness of breath and chest tightness that started the night before, patient felt like he could not catch his breath, he denied any cough or congestion, denied any nausea vomiting or sweats, denied any upper back, jaw or arm pain, patient is a current smoker, his current chronic medical conditions include COPD not normally on home oxygen, chronic back pain, with history of back surgeries, marijuana use and previous episodes of pneumonia, his pulse ox was 97% on room air, he was afebrile, and his chest x- ray showed no acute cardiopulmonary process, he tested negative for COVID-19, he was given breathing treatments and steroids in the emergency department, and upon reevaluation he was feeling much better, he was discharged home on a course of steroids and albuterol inhaler. She was supposed to recheck with his primary care physician in 1-2 days, however he came back to the emergency department at around 1:00 in the morning with complaint of severe shortness of breath, patient was very hypoxic and agitated and could not answer any questions. His repeat blood work showed a white blood cell count of 36.6, hemoglobin of 15.2, his d- dimer was 2.03, his BUN is 21, creatinine is 1.28, and anion gap metabolic acidosis with a lactic acid of 7.2, troponin level was negative at less than 0.012, proBNP was elevated at 1830, patient was in severe respiratory distress, his chest x-ray showed extensive bilateral airspace disease predominantly in the mid and lower lungs that was new since the prior exam, with a differential including infectious/inflammatory process, pulmonary edema or hemorrhage. His CTA chest showed no evidence of pulmonary embolism, lung windows showed extensi ve patchy airspace disease throughout the lungs bilaterally, no mass. In view of severe respiratory distress patient was emergently intubated and placed on mechanical ventilator, and he is currently on assist control mode of ventilation with a rate of 16, tidal arm is 400, FiO2 of 50% and PEEP of 5, his blood gas postintubation showed pO2 of 256, CO2 43, pH of 7.30, patient was given IV steroids, and dose of IV Lasix, he was placed on antibiotics in the form of Zosyn and Levaquin, currently just on Zosyn, he remains intubated and sedated, currently on parenteral secondary to 1:30 ML per hour, Diprivan is at 20 mics per kilo per minute, repeat blood gas this morning shows pO2 of 74, pCO2 42, and pH of 7.35 this was done on 50% FiO2, patient was fluid resuscitated, currently his plasma lactic acid is down to 1.4, urinalysis shows moderate blood, 1+ ketones, 1+ protein, but no definite sign of infection, his urine drug screen was positive for opiates and marijuana, his COVID-19 test again was negative. Repeat CBC today shows white blood cell count of 36.6, hemoglobin is 15.2, neutrophils of 34.4, lymphocyte count of 0.7. Patient is awaiting a bed in the intensive care unit On 09/16/2020 patient seen in follow-up in intensive care unit, he remains intubated, sedated on mechanical ventilator, currently on VC plus mode of ventilation with a rate of 16, tidal arm is 400, FiO2 of 50% PEEP of 5, this morning's blood gas shows pO2 of 72, pCO2 42, pH is 7.41. He is on point in the same area 20 oh per hour, Diprivan and is currently at 65 mics per kilo per minute. Patient is a synchronous with the ventilator, he will need to be sedated adequately to improve his oxygenation and synchrony with the vent. He remains on a combination of Zosyn and vancomycin, his pro-calcitonin level did come back elevated at 1.67, his echocardiogram showed mildly. EF of 40-45%, he was seen by cardiology, and it is felt that his incentive pulmonary edema is not cardiogenic in nature and related to acute exacerbation of CHF but more likely related to bacterial pneumonia likely aspiration related to pneumonia. He is in sinus mechanism, no arrhythmias overnight, hemodynamically has been stable not requiring any vasopressor support, he has a peak pressure of 11, but his plateau pressures are elevated at 34-41 and patient will be switched assist-control mode of ventilation and adequately seated, he has been given Lasix 40 mg twice daily, and he is in negative fluid balance of 2.9 L over the last 24 hours, today's chest x-ray shows diffuse bilateral airspace infiltrates persistence with slight interval improvement. he tested negative twice for COVID 19 via the PCR test, and habits have's for SARS COVID-19 will be sent, today's lab work has been reviewed showing improvement in his leukocytosis and his white count is down to 20.2 on today's labs, hemoglobin is 13.4, his LDH was elevated at 2044, troponins were negative 2, CRP is 16.1, his proBNP is 1330 On 09/17/2020, patient's follow-up in the intensive care unit, he remains sedated, intubated, currently on assist control mode of ventilation with a rate of 20, count was 400, FiO2 50% and PEEP of 10, his blood gas this morning showed pO2 of 129, pCO2 of 51, and pH of 7.38, and this was done on FiO2 of 50%, he is currently on point in the same at 20 ML per hour, Diprivan is a 70 mics per kilo per minute, and fentanyl infusion is currently at 1 mcg/kg per hour. This morning's chest x-ray has been reviewed showing slight improvement in diffuse airspace infiltrates, patient remains on antibiotics in the form of Zosyn. Vancomycin has been discontinued, he was also diuresed, and Lasix is currently at 40 mg every 8 hours, he has positive fluid balance, +199 over the last 24 hours, and prior to that he was -2.9 the day before, hemodynamically stable, he is in sinus mechanism, is not requiring any vasopressor support, doing well, his CVP today's down to 9, yesterday it was 16. However this morning's labs show some worsening in his renal function and his BUN is 50, and creatinine is up to 1.49, heart rate is 109, CO2 is 31, sodium is 144, potassium is 4.0, white count is improving, and is down to 12.7 on today's labs, hemoglobin is 13.1. Patient tested negative for COVID-19 to be a PCR test, urine Legionella antigen was negative, SARS COVID-19 antibody test was nonreactive. No acute events overnight, tube feedings are vital high-protein at 10 ML per hour with standard water flushes, no other acute events overnight, S x-ray findings improving, labs improving, vital signs have been stable On 09/18/2020 patient is in follow-up in intensive care unit, he remains sedated, and intubated on mechanical ventilator, current vent settings are assist control with a rate of 20, tidal lungs for 100, FiO2 of 45% and PEEP of 8, despite his blood gases shows pO2 of 149, pCO2 51 pH of 7.42, he is on dopamine and 60 mics per kilo per minute, fentanyl is at 1 carlos eduardo per kilo per hour, and 0.9 and was seen at 20 ML per hour, continues on 2 feedings for nutritional support. He is hemodynamically stable, he is in sinus mechanism bradycardia at a rate of 58 BPM, not on any vasopressor support at this time, vital signs have been stable, no fever overnight. Today's chest x-ray shows some improvement in aeration bilaterally. He is covered with antibiotics in the form of Zosyn, his blood and sputum cultures so far are negative. Today's labs have been reviewed, showing white blood cell count of 10, hemoglobin is 12.9, sodium is 145, potassium is 3.9, chloride is 108, CO2 34, BUN of 49, creatinine is 1.02, patient remains on a once daily Lasix 40 mg IV, and he is a -237 negative fluid balance over the last 24 hours. His had no acute events overnight, his resting comfortably on the ventilator. Objective - Vital Signs Vital signs: Vital Signs Temp 98.3 F 09/18/20 08:00 Pulse 54 L 09/18/20 09:00 Resp 20 09/18/20 09:00 BP 139/90 09/18/20 09:00 Pulse Ox 97 09/18/20 09:00 Intake & Output 09/17/20 09/18/20 09/18/20 18:59 06:59 18:59 Intake Total 4080.586 1519.073 360.284 Output Total 1595 1015 200 Balance -529.675 292.073 160.284 Weight 72.2 kg 69.3 kg Intake: IV 72 272 38 0.9NS Flush 72 72 18 Piperacillin-Tazobactam 3 200 .375 gm In Sodium Chloride 0.9% 100 ml @ 25 mls/hr IVPB Q8H [facility] Rx#: [id number] ns 20 Intake, IV Titration 487.325 489.073 148.284 Amount Piperacillin-Tazobactam 3 100 .375 gm In Sodium Chloride 0.9% 100 ml @ 25 mls/hr IVPB Q8H [facility] Rx#: [id number] fentaNYL (PF). 1,000 mcg 97.8 93.047 78.43 In Sodium Chloride 0.9% 80 ml @ Per Protocol IV . Q0M [facility] Rx#:[id number] propofoL 1,000 mg In 289.525 396.026 69.854 Empty Bag 1 bag @ Titrate IV .Q0M [facility] Rx#: [id number] Tube Feeding 416 456 114 Other 90 90 60 Output: Urine 1595 1015 200 Other: Voiding Method Indwelling Catheter Indwelling Catheter ABP, PAP, CO, CI - Last Documented Arterial Blood Pressure 151/75 - Exam GENERAL EXAM: Sedated, intubated, 52-year-old white male, resting comfortably currently on VC plus mode of ventilation with a rate 20, tidal lines 400, FiO2 45% and PEEP of 8, comfortable in no apparent distress. HEAD: Normocephalic/atraumatic. EYES: Normal reaction of pupils, equal size. Conjunctiva pink, sclera white. NOSE: Clear with pink turbinates. THROAT: No erythema or exudates. NECK: No masses, no JVD, no thyroid enlargement, no adenopathy. CHEST: No chest wall deformity. Symmetrical expansion. LUNGS: Equal air entry with no crackles, wheeze, rhonchi or dullness. CVS: Regular rate and rhythm, normal S1 and S2, no gallops, no murmurs, no rubs ABDOMEN: Soft, nontender. No hepatosplenomegaly, normal bowel sounds, no guarding or rigidity. EXTREMITIES: No clubbing, no edema, no cyanosis, 2+ pulses and upper and lower extremities. MUSCULOSKELETAL: Muscle strength and tone normal. SPINE: No scoliosis or deformity SKIN: No rashes CENTRAL NERVOUS SYSTEM: Sedated, intubated No focal deficits, tone is normal in all 4 extremities. - Labs CBC & Chem 7: 09/18/20 03:35 09/18/20 03:35 Labs: Abnormal Lab Results - Last 24 Hours (Table) 09/17/20 09/17/20 09/17/20 Range/Units 11:32 17:09 23:31 RBC (4.30-5.90) m/uL Hgb (13.0-17.5) gm/dL Hct (39.0-53.0) % Neutrophils # (1.3-7.7) k/uL Lymphocytes # (1.0-4.8) k/uL ABG pCO2 (35-45) mmHg ABG pO2 (83-108) mmHg ABG HCO3 (21-25) mmol/L ABG Total CO2 (19-24) mmol/L ABG O2 Saturation (94-97) % Chloride (98-107) mmol/L Carbon Dioxide (22-30) mmol/L BUN (9-20) mg/dL Glucose (74-99) mg/dL POC Glucose (mg/dL) 179 H 168 H 188 H (75-99) mg/dL 09/18/20 09/18/20 09/18/20 Range/Units 03:35 03:35 04:40 RBC 4.17 L (4.30-5.90) m/uL Hgb 12.9 L (13.0-17.5) gm/dL Hct 38.0 L (39.0-53.0) % Neutrophils # 9.0 H (1.3-7.7) k/uL Lymphocytes # 0.5 L (1.0-4.8) k/uL ABG pCO2 51 H (35-45) mmHg ABG pO2 149 H (83-108) mmHg ABG HCO3 34 H (21-25) mmol/L ABG Total CO2 35 H (19-24) mmol/L ABG O2 Saturation 99.2 H (94-97) % Chloride 108 H (98-107) mmol/L Carbon Dioxide 34 H (22-30) mmol/L BUN 49 H (9-20) mg/dL Glucose 136 H (74-99) mg/dL POC Glucose (mg/dL) (75-99) mg/dL Microbiology - Last 24 Hours (Table) 09/15/20 03:15 Blood Culture - Preliminary Blood No Growth after 72 hours 09/15/20 03:00 Blood Culture - Preliminary Blood No Growth after 72 hours Assessment and Plan Plan: Assessment: #1. Acute hypoxic respiratory failure related to possibility of aspiration pneumonia and pulmonary edema, COVID-19 test was negative 2, SARS COV-2 antibody non-reactive. Pro-calcitonin level came back elevated at 1.67, digestive possibility of bacterial pneumonia, patient is covered with Zosyn and vancomycin #2. Acute exacerbation of COPD #3. Acute anion gap metabolic acidosis related to lactic acidosis the possibility of sepsis, improved #4. Elevated d-dimer without CT evidence of pulmonary embolism #5. Smoker #6. Marijuana use #7. Chronic back pain #8. Cardiomyopathy with ejection fraction of 40-45% Plan: Dropped and PEEP down to 5, wean FiO2 to maintain O2 saturations at 92% Give the patient spontaneous awakening trial, and if , comfortable, we'll proceed with spontaneous breathing trials with pressure support of 8 and CPAP of 5, and we'll check weaning parameters with the goal of extubation Continue current antibiotics, and patient is currently just on Zosyn No fever, vital signs are stable, hemodynamically stable, leukocytosis is improving Continue current dose Lasix Echocardiogram has been noted Continue GI and DVT prophylaxis Continue IV Solu-Medrol Repeat chest x-ray in the morning, follow-up labs, I performed a history & physical examination of the patient and discussed their management with my nurse practitioner, Chaparrita Eubanks. I reviewed the nurse practitioner's note and agree with the documented findings and plan of care. Lung sounds are positive for diffuse wheezes throughout the lung interiano. The findings and the impression was discussed with the patient. I attest to the documentation by the nurse practitioner. Time with Patient: Greater than 30
--- NOTE | 2020-09-18 10:56 | P.PN ---
Subjective Progress Note Date: 09/18/20 This is a 60-year-old male patient of Dr. Granger past medical history of COPD, tobacco use and dependence, chronic marijuana use, chronic neck and back pain, recurrent depression and generalized anxiety, benign prostatic hypertrophy. Patient was seen in the emergency center on September 14 with com plaints of difficulty breathing. His chest x-ray showed chronic changes without acute pulmonary process. He was given nebulizer treatment and Solu-Medrol 125 mg IV 1, stabilized and discharged home. He returned to the emergency center on September 15 with worsening shortness of breath and mental status changes. He was found to be afebrile, heart rate 101, respiratory rate 27, pulse ox 98%, blood pressure initially 180/83, subsequently 103/87. WBC 36.6, hemoglobin 15.2 and platelet count 278. Electrolytes normal. BUN 21 creatinine 1.28. Blood sugar 143. D-dimer 2.03. Calcium 10.3. Magnesium 2.0. Blood sugar 143. Total bilirubin 1.1, AST 84, ALT 21, alkaline phosphatase 118. Lactic acid 7.2. Troponin negative. ProBNP 1830. Urinalysis showed moderate blood. Coronavirus PCR not detected. EKG was a sinus rhythm with no acute ST changes. CT angiogram of the chest revealed no pulmonary and is on. Extensive patchy airspace disease throughout the lungs bilaterally may represent inflammatory process including Covid 19. Chest x-ray reveals extensive bilateral airspace disease predominantly in the mid and lower lungs since prior. Echocardiogram reveals EF of 40-45% with borderline concentric left regular hypertrophy, mild tricuspid regurgitation. Abdominal x-ray showed overall nonobstructive bowel gas pattern. He has been started on IV Lasix 40 mg every 12 hours, DuoNeb treatments, Solu-Medrol 60 mg IV every 6 hours, Zosyn, vancomycin. 09/16 patient remains intubated on 50 of FIP PEEP of 10 respiratory rate 20 assist-control. Vitals reviewed status temp of 99.2 pulse 56 respiratory rate 23 blood pressure 107/62 oxygen saturation 94% on 50% FiO2. Chest x-ray s uggestive of progressive diffuse airspace infiltrates. Patient's leukocytosis has slightly improved since yesterday to 20. ABG this morning suggest a pH of 7.4 pCO2 42 pO2 of 72 and BNP suggestive, BUN 33 creatinine 1.3 glucose 121. Patient had a -3 L output yesterday. Echo obtained suggest EF of 40-45% with hypokinesis of the lateral wall of ventricle. Inflammation markers elevated including pro-calcitonin. Chest x-ray concerning for bilateral infiltrates with possibility of flash pulmonary edema versus aspiration pneumonia. Continue antibiotics including vancomycin, Zosyn and levofloxacin. Legionella and Mycoplasma ordered. COVID-19 negative twice. UDS positive for opiates and ma rijuana. Blood cultures have been negative. Hold vancomycin. Sputum cultures. Lasix increased to 40 3 times a day. 09/17 patient examined bedside. Patient's bedside 7. Patient remains intu bated on 45% FiO2 and PEEP of 8 respiratory rate 20 and tidal volume 400 assist- control. Patient's blood gas this morning shows a pO2 of 129 pCO2 51. 7.38. Continuous remain on propofol and fentanyl infusion. Patient's chest x-ray this morning shows slight improvement in his diffuse airspace infiltrate. Patient remains on Zosyn and Lasix. Lasix was reduced from 3 times a day to once a day to prevent kidney damage. Patient has been diuresing well. Vancomycin was discontinued yesterday. Patient has a positive fluid balance over the last 24 hours. He remains in sinus rhythm. No requirement of pressors. CBC has improved to 7 from 16. An assessment of patient's lab patient does have a leukocytosis of 12.7 which is improved from 20 BUN has increased from 33 to 50 creatinine increased from 1.3 to 1.49. Glucose of 179 calcium 7.8. Legionella is negative, mycoplasma IgM is negative. Continuing denies antibiotics.Zosyn. We'll place patient on insulin sliding scale. Vent management per pulmonary. REVIEW OF SYSTEMS Unable to obtain due to mental status change, intubation. Physical exam: General Appearance: D10-year-old intubated and sedated gentleman Neck HEENT: Supple, no lymphadenopathy, no thyroid enlargement, no carotid bruits. Lungs: Decreased air entry with crackles Heart: Regular rate and rhythm, S1, S2 normal, no murmur, rub or gallop. Back: Symmetric, no curvature, Abdomen: Soft, non-tender, no rebound or rigidity, no hepatosplenomegaly. Extremities: Extremities normal, atraumatic, no cyanosis or edema. Pulses: 2+ and symmetric. Skin: Skin color, texture, tugor decreased, no rashes or lesions. Neurologic: Sedated and intubated Assessment/plan: 1. Acute hypoxic respiratory failure secondary to aspiration pneumonia, acute systolic heart failure and possible COPD exacerbation. Condition very suspicious for Covid 19 pneumonia. Patient has had Covid 19 testing 2 negative. Patient required intubation and on mechanical ventilation. Consult with pulmonary medicine appreciated. Continue IV Zosyn Solu-Medrol 60 mg IV every 6 hours, DuoNeb treatments 4 times daily and as needed, Lasix decreased to 40 mg IV daily per pulmonary Monitor I&O and daily weights, electrolyte and renal function. Patient will need speech evaluation once extubated. Inflammatory markers, pro-calcitonin elevated Blood culture negative. DC vancomycin 2. Metabolic encephalopathy secondary to sepsis and aspiration pneumonia. 3. Chronic pain syndrome. 4. Tobacco use and dependence. Hold Nicotine patch. 5. Marijuana use. 6. Recurrent depression and generalized anxiety disorder. Hold citalopram 40 mg daily. 7. Benign prostatic hypertrophy. Patient is normally on Flomax 0.4 mg daily. 8. hyperglycemia on steroids we will initiate insulin sliding scale 9. GI prophylaxis. Protonix 40 mg IV daily. 10. DVT prophylaxis. Lovenox 40 mg subcu daily. Code Status: Full code Discharge plan: Based on recovery Impression and plan of care have been directed as dictated by the signing physician. Brigid Kwong nurse practitioner acting as scribe for signing physician. Objective - Vital Signs Vital signs: Vital Signs Temp 98.3 F 09/18/20 08:00 Pulse 55 L 09/18/20 10:00 Resp 20 09/18/20 10:00 BP 139/90 09/18/20 10:00 Pulse Ox 97 09/18/20 10:00 Intake & Output 09/17/20 09/18/20 09/18/20 18:59 06:59 18:59 Intake Total 0727.526 5512.073 399.590 Output Total 1595 1015 850 Balance -529.675 292.073 -450.410 Weight 72.2 kg 69.3 kg Intake: IV 72 272 64 0.9NS Flush 72 72 24 Piperacillin-Tazobactam 3 200 .375 gm In Sodium Chloride 0.9% 100 ml @ 25 mls/hr IVPB Q8H [facility] Rx#: [id number] ns 40 Intake, IV Titration 487.325 489.073 161.590 Amount Piperacillin-Tazobactam 3 100 .375 gm In Sodium Chloride 0.9% 100 ml @ 25 mls/hr IVPB Q8H [facility] Rx#: [id number] fentaNYL (PF). 1,000 mcg 97.8 93.047 78.43 In Sodium Chloride 0.9% 80 ml @ Per Protocol IV . Q0M [facility] Rx#:[id number] propofoL 1,000 mg In 289.525 396.026 83.160 Empty Bag 1 bag @ Titrate IV .Q0M [facility] Rx#: [id number] Tube Feeding 416 456 114 Other 90 90 60 Output: Urine 1595 1015 850 Other: Voiding Method Indwelling Catheter Indwelling Catheter Indwelling Catheter ABP, PAP, CO, CI - Last Documented Arterial Blood Pressure 155/78 - Labs CBC & Chem 7: 09/18/20 03:35 09/18/20 03:35 Labs: Abnormal Lab Results - Last 24 Hours (Table) 09/17/20 09/17/20 09/17/20 Range/Units 11:32 17:09 23:31 RBC (4.30-5.90) m/uL Hgb (13.0-17.5) gm/dL Hct (39.0-53.0) % Neutrophils # (1.3-7.7) k/uL Lymphocytes # (1.0-4.8) k/uL ABG pCO2 (35-45) mmHg ABG pO2 (83-108) mmHg ABG HCO3 (21-25) mmol/L ABG Total CO2 (19-24) mmol/L ABG O2 Saturation (94-97) % Chloride (98-107) mmol/L Carbon Dioxide (22-30) mmol/L BUN (9-20) mg/dL Glucose (74-99) mg/dL POC Glucose (mg/dL) 179 H 168 H 188 H (75-99) mg/dL 09/18/20 09/18/20 09/18/20 Range/Units 03:35 03:35 04:40 RBC 4.17 L (4.30-5.90) m/uL Hgb 12.9 L (13.0-17.5) gm/dL Hct 38.0 L (39.0-53.0) % Neutrophils # 9.0 H (1.3-7.7) k/uL Lymphocytes # 0.5 L (1.0-4.8) k/uL ABG pCO2 51 H (35-45) mmHg ABG pO2 149 H (83-108) mmHg ABG HCO3 34 H (21-25) mmol/L ABG Total CO2 35 H (19-24) mmol/L ABG O2 Saturation 99.2 H (94-97) % Chloride 108 H (98-107) mmol/L Carbon Dioxide 34 H (22-30) mmol/L BUN 49 H (9-20) mg/dL Glucose 136 H (74-99) mg/dL POC Glucose (mg/dL) (75-99) mg/dL Microbiology - Last 24 Hours (Table) 09/15/20 03:15 Blood Culture - Preliminary Blood No Growth after 72 hours 09/15/20 03:00 Blood Culture - Preliminary Blood No Growth after 72 hours
[2020-09-18 12:03] LABS: Glucose,Whole Blood 149 mg/dL (75-99)
[2020-09-18] MEDS: fentaNYL (PF). 1,000 MCG in SODIUM CHLORIDE 0.9% 80 ML IV SCH (14:59)
[2020-09-18] MEDS: POTASSIUM BICARBONATE/CIT AC 20 MEQ TABLET.EFF NG-TUBE SCH ×2 (16:08→17:36)
[2020-09-18 17:24] LABS: Glucose,Whole Blood 179 mg/dL (75-99)
[2020-09-18 23:28] LABS: Glucose,Whole Blood 164 mg/dL (75-99)
[2020-09-19] MEDS: PIPERACILLIN-TAZOBACTAM 3.375 GM in SODIUM CHLORIDE 0.9% 100 ML IVPB SCH ×3 (03:11→19:56)
[2020-09-19 03:48] LABS: Basophils # (A) 0.1 k/uL (0-0.2); Basophils % (A) 1 %; Eosinophils # (A) 0.1 k/uL (0-0.7); Eosinophils % (A) 1 %; HCT 40.3 % (39.0-53.0); HGB 13.7 gm/dL (13.0-17.5); Lymphocytes # (A) 0.6 k/uL (1.0-4.8); Lymphocytes % (A) 7 %; MCHC 33.9 g/dL (31.0-37.0); MCV 91.6 fL (80.0-100.0); Mean Platelet Volume 10.2; Monocytes # (A) 0.7 k/uL (0-1.0); Monocytes % (A) 8 %; Neutrophils % (A) 84 %; Platelet Count 182 k/uL (150-450); RDW 13.1 % (11.5-15.5); WBC 9.5 k/uL (3.8-10.6)
[2020-09-19 04:00] LABS: African American GFR (CKD) >90 (>60 ml/min/1.73 sqM); Anion Gap 1 mmol/L; Blood Urea Nitrogen 48 mg/dL (9-20); Calcium 8.2 mg/dL (8.4-10.2); Carbon Dioxide 38 mmol/L (22-30); Chloride 112 mmol/L (98-107); Glucose 146 mg/dL (74-99); Non-African American GFR(CKD) 88 (>60 ml/min/1.73 sqM); Potassium 3.9 mmol/L (3.5-5.1); Sodium 151 mmol/L (137-145)
[2020-09-19] MEDS ORDERED: Potassium Replacement Protocol 1 EACH MISC MISCELLANE PRN (04:16)
[2020-09-19] MEDS: fentaNYL (PF). 1,000 MCG in SODIUM CHLORIDE 0.9% 80 ML IV SCH ×3 (04:55→23:07)
[2020-09-19] MEDS: methylPREDNISolone SOD SUCCI 125 MG/2 ML VIAL IV SCH ×4 (04:55→23:06)
[2020-09-19] MEDS: INSULIN ASPART (NovoLOG) 100 UNIT/ML VIAL SQ SCH ×4 (04:55→23:06)
[2020-09-19] MEDS ORDERED: POTASSIUM BICARBONATE/CIT AC 20 MEQ TABLET.EFF NG-TUBE SCH ×2 (05:00→19:00)
[2020-09-19 05:12] LABS: ABG Base Excess 13.5 mmol/L; ABG HCO3 37 mmol/L (21-25); ABG Oxygen Saturation 98.1 % (94-97); ABG PCO2 51 mmHg (35-45); ABG PH 7.47 (7.35-7.45); ABG PO2 107 mmHg (83-108); ABG TCO2 39 mmol/L (19-24); Allen Test Performed? Yes
--- NOTE | 2020-09-19 07:17 | XR ---
EXAMINATION TYPE: XR chest 1V portable DATE OF EXAM: 09/19/2020 COMPARISON: Chest x-ray 09/18/2020 HISTORY: Pneumonia TECHNIQUE: Single frontal view of the chest is obtained. FINDINGS: Endotracheal tube, orogastric tube, left-sided central venous catheter are overlying appro priate positions. No evident pneumothorax or pleural effusion. Prominence of interstitium present wanda aterally, patchy density is again seen. Cardiac mediastinal silhouette is unchanged. There are overly ing leads. IMPRESSION: Findings similar to prior exam. Correlate for pneumonia
[2020-09-19] MEDS: ALBUTEROL HFA INHALER INHALATION SCH ×4 (07:37→22:03)
[2020-09-19] MEDS: TIOTROPIUM 2.5 MCG INHALER INHALATION SCH (07:37)
[2020-09-19] MEDS: IPRATROPIUM-ALBUTEROL 3 ML NEB INHALATION SCH ×4 (07:37→22:04)
[2020-09-19] MEDS: FAMOTIDINE 20 MG/2 ML VIAL IV SCH ×2 (08:05→19:59)
[2020-09-19] MEDS: ENOXAPARIN 40 MG/0.4 ML SYRINGE SQ SCH (08:05)
[2020-09-19] MEDS: CITALOPRAM HYDROBROMIDE 20 MG TAB PO SCH (08:05)
[2020-09-19] MEDS: CHLORHEXIDINE GLUCONATE 15 ML CUP MUCOUS MEM SCH ×2 (08:05→19:59)
[2020-09-19] MEDS: FUROSEMIDE 10 MG/ML 4 ML VIAL IV SCH (08:05)
[2020-09-19] MEDS: PANTOPRAZOLE 40 MG/10 ML VIAL IVP SCH (08:05)
--- NOTE | 2020-09-19 10:18 | P.PN ---
Subjective Progress Note Date: 09/19/20 This is a 60-year-old male patient of Dr. Granger past medical history of COPD, tobacco use and dependence, chronic marijuana use, chronic neck and back pain, recurrent depression and generalized anxiety, benign prostatic hypertrophy. Patient was seen in the emergency center on September 14 with com plaints of difficulty breathing. His chest x-ray showed chronic changes without acute pulmonary process. He was given nebulizer treatment and Solu-Medrol 125 mg IV 1, stabilized and discharged home. He returned to the emergency center on September 15 with worsening shortness of breath and mental status changes. He was found to be afebrile, heart rate 101, respiratory rate 27, pulse ox 98%, blood pressure initially 180/83, subsequently 103/87. WBC 36.6, hemoglobin 15.2 and platelet count 278. Electrolytes normal. BUN 21 creatinine 1.28. Blood sugar 143. D-dimer 2.03. Calcium 10.3. Magnesium 2.0. Blood sugar 143. Total bilirubin 1.1, AST 84, ALT 21, alkaline phosphatase 118. Lactic acid 7.2. Troponin negative. ProBNP 1830. Urinalysis showed moderate blood. Coronavirus PCR not detected. EKG was a sinus rhythm with no acute ST changes. CT angiogram of the chest revealed no pulmonary and is on. Extensive patchy airspace disease throughout the lungs bilaterally may represent inflammatory process including Covid 19. Chest x-ray reveals extensive bilateral airspace disease predominantly in the mid and lower lungs since prior. Echocardiogram reveals EF of 40-45% with borderline concentric left regular hypertrophy, mild tricuspid regurgitation. Abdominal x-ray showed overall nonobstructive bowel gas pattern. He has been started on IV Lasix 40 mg every 12 hours, DuoNeb treatments, Solu-Medrol 60 mg IV every 6 hours, Zosyn, vancomycin. 09/16 patient remains intubated on 50 of FIP PEEP of 10 respiratory rate 20 assist-control. Vitals reviewed status temp of 99.2 pulse 56 respiratory rate 23 blood pressure 107/62 oxygen saturation 94% on 50% FiO2. Chest x-ray s uggestive of progressive diffuse airspace infiltrates. Patient's leukocytosis has slightly improved since yesterday to 20. ABG this morning suggest a pH of 7.4 pCO2 42 pO2 of 72 and BNP suggestive, BUN 33 creatinine 1.3 glucose 121. Patient had a -3 L output yesterday. Echo obtained suggest EF of 40-45% with hypokinesis of the lateral wall of ventricle. Inflammation markers elevated including pro-calcitonin. Chest x-ray concerning for bilateral infiltrates with possibility of flash pulmonary edema versus aspiration pneumonia. Continue antibiotics including vancomycin, Zosyn and levofloxacin. Legionella and Mycoplasma ordered. COVID-19 negative twice. UDS positive for opiates and ma rijuana. Blood cultures have been negative. Hold vancomycin. Sputum cultures. Lasix increased to 40 3 times a day. 09/17 patient examined bedside. Patient's at bedside. Patient remains intu bated on 45% FiO2 and PEEP of 8 respiratory rate 20 and tidal volume 400 assist- control. Patient's blood gas this morning shows a pO2 of 129 pCO2 51. 7.38. Continuous remain on propofol and fentanyl infusion. Patient's chest x-ray this morning shows slight improvement in his diffuse airspace infiltrate. Patient remains on Zosyn and Lasix. Lasix was reduced from 3 times a day to once a day to prevent kidney damage. Patient has been diuresing well. Vancomycin was discontinued yesterday. Patient has a positive fluid balance over the last 24 hours. He remains in sinus rhythm. No requirement of pressors. CBC has improved to 7 from 16. An assessment of patient's lab patient does have a leukocytosis of 12.7 which is improved from 20 BUN has increased from 33 to 50 creatinine increased from 1.3 to 1.49. Glucose of 179 calcium 7.8. Legionella is negative, mycoplasma IgM is negative. Continuing denies antibiotics.Zosyn. We'll place patient on insulin sliding scale. Vent management per pulmonary. 09/18: Patient examined at bedside. Remained intubated on 45% FiO2 and a PEEP of 8 respirations 20 and a tidal volume 400 with assist-control. Attempt to wean patient today will be started. Patient remains on propofol and fentanyl infusion. Patient remains on Zosyn and Lasix. He is diuresing well. Patient remains in sinus rhythm with no requirement of pressors. 09/19: Patient examined at the bedside remain intubated on 45% FiO2 and a PEEP of 8 respirations 20. Yesterday he was tempted to wean patient when the sedation was decreased patient's pressure elevated. Attempt to wean will be done again today with a CPAP trial is able to tolerate. Patient remains on propofol and fentanyl infusion at this time. Chest x-ray shows no evidence of pneumothorax or pleural effusion. Prominent of interstitium present bilaterally. Patchy density is seen again. It is similar to the prior exam. CBC 9.5, hemoglobin 13.7, calcium 3.9, BUN 48, creatinine 0.95. REVIEW OF SYSTEMS Unable to obtain due to mental status change, intubation. Physical exam: General Appearance: D10-year-old intubated and sedated gentleman Neck HEENT: Supple, no lymphadenopathy, no thyroid enlargement, no carotid bruits. Lungs: Decreased air entry with crackles Heart: Regular rate and rhythm, S1, S2 normal, no murmur, rub or gallop. Back: Symmetric, no curvature, Abdomen: Soft, non-tender, no rebound or rigidity, no hepatosplenomegaly. Extremities: Extremities normal, atraumatic, no cyanosis or edema. Pulses: 2+ and symmetric. Skin: Skin color, texture, tugor decreased, no rashes or lesions. Neurologic: Sedated and intubated Assessment/plan: 1. Acute hypoxic respiratory failure secondary to aspiration pneumonia, acute systolic heart failure and possible COPD exacerbation. Condition very suspicious for Covid 19 pneumonia. Patient has had Covid 19 testing 2 negative. Patient required intubation and on mechanical ventilation. Consult with pulmonary medicine appreciated. Continue IV Zosyn Solu-Medrol 60 mg IV every 6 hours, DuoNeb treatments 4 times daily and as needed, Lasix decreased to 40 mg IV daily per pulmonary Monitor I&O and daily weights, electrolyte and renal function. Patient will need speech evaluation once extubated. Inflammatory markers, pro-calcitonin elevated Blood culture negative. DC vancomycin 2. Metabolic encephalopathy secondary to sepsis and aspiration pneumonia. 3. Chronic pain syndrome. 4. Tobacco use and dependence. Hold Nicotine patch. 5. Marijuana use. 6. Recurrent depression and generalized anxiety disorder. Hold citalopram 40 mg daily. 7. Benign prostatic hypertrophy. Patient is normally on Flomax 0.4 mg daily. 8. hyperglycemia on steroids we will initiate insulin sliding scale 9. GI prophylaxis. Protonix 40 mg IV daily. 10. DVT prophylaxis. Lovenox 40 mg subcu daily. Code Status: Full code Discharge plan: Based on recovery Impression and plan of care have been directed as dictated by the signing physician. Brigid Kwong nurse practitioner acting as scribe for signing physician. Objective - Vital Signs Vital signs: Vital Signs Temp 100 F H 09/19/20 08:00 Pulse 94 09/19/20 09:00 Resp 20 09/19/20 09:00 BP 162/95 09/19/20 06:00 Pulse Ox 97 09/19/20 09:00 Intake & Output 09/18/20 09/19/20 09/19/20 18:59 06:59 18:59 Intake Total 6664.893 4791.043 239.447 Output Total 2550 895 6681 Balance -1162.636 300.043 -6441.553 Weight 68.1 kg Intake: IV 398 286 78 0.9NS Flush 78 66 18 Piperacillin-Tazobactam 3 100 .375 gm In Sodium Chloride 0.9% 100 ml @ 25 mls/hr IVPB Q8H RAGHU Rx#: [id number] ns 220 220 60 Intake, IV Titration 295.364 401.043 85.447 Amount fentaNYL (PF). 1,000 mcg 95.364 99.345 In Sodium Chloride 0.9% 80 ml @ Per Protocol IV . Q0M RAGHU Rx#:[id number] propofoL 1,000 mg In 200.000 301.698 85.447 Empty Bag 1 bag @ Titrate IV .Q0M RAGHU Rx#: [id number] Tube Feeding 494 418 76 Other 200 90 Output: Urine 2550 895 6681 Other: Voiding Method Indwelling Catheter Indwelling Catheter # Bowel Movements 1 ABP, PAP, CO, CI - Last Documented Arterial Blood Pressure 174/92 - Labs CBC & Chem 7: 09/19/20 03:35 09/19/20 03:35 Labs: Abnormal Lab Results - Last 24 Hours (Table) 09/18/20 09/18/20 09/18/20 Range/Units 12:01 17:23 23:25 Neutrophils # (1.3-7.7) k/uL Lymphocytes # (1.0-4.8) k/uL ABG pH (7.35-7.45) ABG pCO2 (35-45) mmHg ABG HCO3 (21-25) mmol/L ABG Total CO2 (19-24) mmol/L ABG O2 Saturation (94-97) % Sodium (137-145) mmol/L Chloride (98-107) mmol/L Carbon Dioxide (22-30) mmol/L BUN (9-20) mg/dL Glucose (74-99) mg/dL POC Glucose (mg/dL) 149 H 179 H 164 H (75-99) mg/dL Calcium (8.4-10.2) mg/dL 09/19/20 09/19/20 09/19/20 Range/Units 03:35 03:35 05:02 Neutrophils # 8.0 H (1.3-7.7) k/uL Lymphocytes # 0.6 L (1.0-4.8) k/uL ABG pH 7.47 H (7.35-7.45) ABG pCO2 51 H (35-45) mmHg ABG HCO3 37 H (21-25) mmol/L ABG Total CO2 39 H (19-24) mmol/L ABG O2 Saturation 98.1 H (94-97) % Sodium 151 H (137-145) mmol/L Chloride 112 H (98-107) mmol/L Carbon Dioxide 38 H (22-30) mmol/L BUN 48 H (9-20) mg/dL Glucose 146 H (74-99) mg/dL POC Glucose (mg/dL) (75-99) mg/dL Calcium 8.2 L (8.4-10.2) mg/dL Microbiology - Last 24 Hours (Table) 09/15/20 03:15 Blood Culture - Preliminary Blood No Growth after 96 hours 09/15/20 03:00 Blood Culture - Preliminary Blood No Growth after 96 hours 09/16/20 12:30 Gram Stain - Final Sputum Sputum Culture - Final Nilda albicans
[2020-09-19 12:05] LABS: Glucose,Whole Blood 180 mg/dL (75-99)
--- NOTE | 2020-09-19 12:36 | P.PN ---
Subjective Progress Note Date: 09/19/20 This is 60-year-old white male patient who was seen in the emergency department on 09/14/2020 for evaluation of shortness of breath and chest tightness that started the night before, patient felt like he could not catch his breath, he denied any cough or congestion, denied any nausea vomiting or sweats, denied any upper back, jaw or arm pain, patient is a current smoker, his current chronic medical conditions include COPD not normally on home oxygen, chronic back pain, with history of back surgeries, marijuana use and previous episodes of pneumonia, his pulse ox was 97% on room air, he was afebrile, and his chest x- ray showed no acute cardiopulmonary process, he tested negative for COVID-19, he was given breathing treatments and steroids in the emergency department, and upon reevaluation he was feeling much better, he was discharged home on a course of steroids and albuterol inhaler. She was supposed to recheck with his primary care physician in 1-2 days, however he came back to the emergency department at around 1:00 in the morning with complaint of severe shortness of breath, patient was very hypoxic and agitated and could not answer any questions. His repeat blood work showed a white blood cell count of 36.6, hemoglobin of 15.2, his d- dimer was 2.03, his BUN is 21, creatinine is 1.28, and anion gap metabolic acidosis with a lactic acid of 7.2, troponin level was negative at less than 0.012, proBNP was elevated at 1830, patient was in severe respiratory distress, his chest x-ray showed extensive bilateral airspace disease predominantly in the mid and lower lungs that was new since the prior exam, with a differential including infectious/inflammatory process, pulmonary edema or hemorrhage. His CTA chest showed no evidence of pulmonary embolism, lung windows showed extens maxwell patchy airspace disease throughout the lungs bilaterally, no mass. In view of severe respiratory distress patient was emergently intubated and placed on mechanical ventilator, and he is currently on assist control mode of ventilation with a rate of 16, tidal arm is 400, FiO2 of 50% and PEEP of 5, his blood gas postintubation showed pO2 of 256, CO2 43, pH of 7.30, patient was given IV steroids, and dose of IV Lasix, he was placed on antibiotics in the form of Zosyn and Levaquin, currently just on Zosyn, he remains intubated and sedated, currently on parenteral secondary to 1:30 ML per hour, Diprivan is at 20 mics per kilo per minute, repeat blood gas this morning shows pO2 of 74, pCO2 42, and pH of 7.35 this was done on 50% FiO2, patient was fluid resuscitated, currently his plasma lactic acid is down to 1.4, urinalysis shows moderate blood, 1+ ketones, 1+ protein, but no definite sign of infection, his urine drug screen was positive for opiates and marijuana, his COVID-19 test again was negative. Repeat CBC today shows white blood cell count of 36.6, hemoglobin is 15.2, neutrophils of 34.4, lymphocyte count of 0.7. Patient is awaiting a bed in the intensive care unit On 09/16/2020 patient seen in follow-up in intensive care unit, he remains intubated, sedated on mechanical ventilator, currently on VC plus mode of ventilation with a rate of 16, tidal arm is 400, FiO2 of 50% PEEP of 5, this morning's blood gas shows pO2 of 72, pCO2 42, pH is 7.41. He is on point in the same area 20 oh per hour, Diprivan and is currently at 65 mics per kilo per minute. Patient is a synchronous with the ventilator, he will need to be sedated adequately to improve his oxygenation and synchrony with the vent. He remains on a combination of Zosyn and vancomycin, his pro-calcitonin level did come back elevated at 1.67, his echocardiogram showed mildly. EF of 40-45%, he was seen by cardiology, and it is felt that his incentive pulmonary edema is not cardiogenic in nature and related to acute exacerbation of CHF but more likely related to bacterial pneumonia likely aspiration related to pneumonia. He is in sinus mechanism, no arrhythmias overnight, hemodynamically has been stable not requiring any vasopressor support, he has a peak pressure of 11, but his plateau pressures are elevated at 34-41 and patient will be switched assist-control mode of ventilation and adequately seated, he has been given Lasix 40 mg twice daily, and he is in negative fluid balance of 2.9 L over the last 24 hours, today's chest x-ray shows diffuse bilateral airspace infiltrates persistence with slight interval improvement. he tested negative twice for COVID 19 via the PCR test, and habits have's for SARS COVID-19 will be sent, today's lab work has been reviewed showing improvement in his leukocytosis and his white count is down to 20.2 on today's labs, hemoglobin is 13.4, his LDH was elevated at 2044, troponins were negative 2, CRP is 16.1, his proBNP is 1330 On 09/17/2020, patient's follow-up in the intensive care unit, he remains sedated, intubated, currently on assist control mode of ventilation with a rate of 20, count was 400, FiO2 50% and PEEP of 10, his blood gas this morning showed pO2 of 129, pCO2 of 51, and pH of 7.38, and this was done on FiO2 of 50%, he is currently on point in the same at 20 ML per hour, Diprivan is a 70 mics per kilo per minute, and fentanyl infusion is currently at 1 mcg/kg per hour. This morning's chest x-ray has been reviewed showing slight improvement in diffuse airspace infiltrates, patient remains on antibiotics in the form of Zosyn. Vancomycin has been discontinued, he was also diuresed, and Lasix is currently at 40 mg every 8 hours, he has positive fluid balance, +199 over the last 24 hours, and prior to that he was -2.9 the day before, hemodynamically stable, he is in sinus mechanism, is not requiring any vasopressor support, doing well, his CVP today's down to 9, yesterday it was 16. However this morning's labs show so me worsening in his renal function and his BUN is 50, and creatinine is up to 1.49, heart rate is 109, CO2 is 31, sodium is 144, potassium is 4.0, white count is improving, and is down to 12.7 on today's labs, hemoglobin is 13.1. Patient tested negative for COVID-19 to be a PCR test, urine Legionella antigen was negative, SARS COVID-19 antibody test was nonreactive. No acute events overnight, tube feedings are vital high-protein at 10 ML per hour with standard water flushes, no other acute events overnight, S x-ray findings improving, labs improving, vital signs have been stable On 09/18/2020 patient is in follow-up in intensive care unit, he remains sedated, and intubated on mechanical ventilator, current vent settings are assist control with a rate of 20, tidal lungs for 100, FiO2 of 45% and PEEP of 8, despite his blood gases shows pO2 of 149, pCO2 51 pH of 7.42, he is on dopamine and 60 mics per kilo per minute, fentanyl is at 1 carlos eduardo per kilo per hour, and 0.9 and was seen at 20 ML per hour, continues on 2 feedings for nutritional support. He is hemodynamically stable, he is in sinus mechanism bradycardia at a rate of 58 BPM, not on any vasopressor support at this time, vital signs have been stable, no fever overnight. Today's chest x-ray shows some improvement in aeration bilaterally. He is covered with antibiotics in the form of Zosyn, his blood and sputum cultures so far are negative. Today's labs have been reviewed, showing white blood cell count of 10, hemoglobin is 12.9, sodium is 145, potassium is 3.9, chloride is 108, CO2 34, BUN of 49, creatinine is 1.02, patient remains on a once daily Lasix 40 mg IV, and he is a -237 negative fluid balance over the last 24 hours. His had no acute events overnight, his resting comfortably on the ventilator. The patient is seen today 09/19/2020 in follow-up in the intensive care unit. He remains intubated on mechanical ventilator. Currently assist-control mode. Rate of 20, tidal volume 400, FiO2 45% and a PEEP of 5. Morning blood gases reveal a P O2 107, pCO2 51, pH 7.47. He is currently sedated on propofol at 55 mcg/kg/m, fentanyl at 1 mcg/kg/h, 0.9 normal saline at 20 ML's per hour. He is being nourished with vital HPI 30 ML's per hour which is goal. He was given a daily interruption of sedation early this morning and developed hypertension and tachycardia. Blood cultures revealing no growth. Sputum culture with Nilda. White count 9.5. Hemoglobin 13.7. Lymphocytes 0.6. Sodium 151. Potassium 3.9. Chloride 112. Bicarb 38. Creatinine 0.95. Glucose 146. He is continued on bronchodilators, IV diuretics, Lovenox, antibiotics in the form of Zosyn. Remains in a negative balance by 7.5 L. Down to 68.1 kg. Chest x-ray continues to reveal bilateral patchy densities with prominent interstitium. Objective - Vital Signs Vital signs: Vital Signs Temp 99.8 F H 09/19/20 12:00 Pulse 77 09/19/20 12:00 Resp 16 09/19/20 12:00 BP 162/95 09/19/20 06:00 Pulse Ox 93 L 09/19/20 12:00 Intake & Output 09/18/20 09/19/20 09/19/20 18:59 06:59 18:59 Intake Total 9073.780 6183.043 447.411 Output Total 2550 895 7980 Balance -1162.636 300.043 -7532.589 Weight 68.1 kg Intake: IV 398 286 256 0.9NS Flush 78 66 36 Piperacillin-Tazobactam 3 100 100 .375 gm In Sodium Chloride 0.9% 100 ml @ 25 mls/hr IVPB Q8H RAGHU Rx#: [id number] ns 220 220 120 Intake, IV Titration 295.364 401.043 115.411 Amount fentaNYL (PF). 1,000 mcg 95.364 99.345 In Sodium Chloride 0.9% 80 ml @ Per Protocol IV . Q0M RAGHU Rx#:[id number] propofoL 1,000 mg In 200.000 301.698 115.411 Empty Bag 1 bag @ Titrate IV .Q0M RAGHU Rx#: [id number] Tube Feeding 494 418 76 Other 200 90 Output: Urine 2550 895 7980 Other: Voiding Method Indwelling Catheter Indwelling Catheter Indwelling Catheter # Bowel Movements 1 1 ABP, PAP, CO, CI - Last Documented Arterial Blood Pressure 146/79 - Exam GENERAL EXAM: Sedated, intubated, 52-year-old male patient, currently on mechanical ventilation with a rate 20, tidal lines 400, FiO2 45% and PEEP of 5, comfortable in no apparent distress. HEAD: Normocephalic/atraumatic. EYES: Normal reaction of pupils, equal size. Conjunctiva pink, sclera white. NOSE: Clear with pink turbinates. THROAT: Oral endotracheal and gastric tube secured in place. No erythema or exudates. NECK: No masses, no JVD, no thyroid enlargement, no adenopathy. CHEST: No chest wall deformity. Symmetrical expansion. LUNGS: Equal air entry with crackles in the bilateral posterior bases CVS: Regular rate and rhythm, normal S1 and S2, no gallops, no murmurs, no rubs ABDOMEN: Soft, nontender. No hepatosplenomegaly, normal bowel sounds, no gu arding or rigidity. EXTREMITIES: No clubbing, no edema, no cyanosis, 2+ pulses and upper and lower e xtremities. MUSCULOSKELETAL: Muscle strength and tone normal. SPINE: No scoliosis or deformity SKIN: No rashes CENTRAL NERVOUS SYSTEM: Sedated, intubated No focal deficits, tone is normal in all 4 extremities. - Labs CBC & Chem 7: 09/19/20 03:35 09/19/20 03:35 Labs: Abnormal Lab Results - Last 24 Hours (Table) 09/18/20 09/18/20 09/19/20 Range/Units 17:23 23:25 03:35 Neutrophils # 8.0 H (1.3-7.7) k/uL Lymphocytes # 0.6 L (1.0-4.8) k/uL ABG pH (7.35-7.45) ABG pCO2 (35-45) mmHg ABG HCO3 (21-25) mmol/L ABG Total CO2 (19-24) mmol/L ABG O2 Saturation (94-97) % Sodium (137-145) mmol/L Chloride (98-107) mmol/L Carbon Dioxide (22-30) mmol/L BUN (9-20) mg/dL Glucose (74-99) mg/dL POC Glucose (mg/dL) 179 H 164 H (75-99) mg/dL Calcium (8.4-10.2) mg/dL 09/19/20 09/19/20 09/19/20 Range/Units 03:35 05:02 12:02 Neutrophils # (1.3-7.7) k/uL Lymphocytes # (1.0-4.8) k/uL ABG pH 7.47 H (7.35-7.45) ABG pCO2 51 H (35-45) mmHg ABG HCO3 37 H (21-25) mmol/L ABG Total CO2 39 H (19-24) mmol/L ABG O2 Saturation 98.1 H (94-97) % Sodium 151 H (137-145) mmol/L Chloride 112 H (98-107) mmol/L Carbon Dioxide 38 H (22-30) mmol/L BUN 48 H (9-20) mg/dL Glucose 146 H (74-99) mg/dL POC Glucose (mg/dL) 180 H (75-99) mg/dL Calcium 8.2 L (8.4-10.2) mg/dL Microbiology - Last 24 Hours (Table) 09/15/20 03:15 Blood Culture - Preliminary Blood No Growth after 96 hours 09/15/20 03:00 Blood Culture - Preliminary Blood No Growth after 96 hours 09/16/20 12:30 Gram Stain - Final Sputum Sputum Culture - Final Nilda albicans Assessment and Plan Assessment: 1 Acute hypoxic respiratory failure related to possibility of aspiration pneumonia and pulmonary edema, COVID-19 test was negative 2, SARS COV-2 antibody non-reactive. Pro-calcitonin level came back elevated at 1.67, digestive possibility of bacterial pneumonia, patient is covered with Zosyn 2 Acute exacerbation of COPD 3 Acute anion gap metabolic acidosis related to lactic acidosis the possibility of sepsis, improved 4 Elevated d-dimer without CT evidence of pulmonary embolism 5 Smoker 6 Marijuana use 7 Chronic back pain 8 Cardiomyopathy with ejection fraction of 40-45% 9 Hypernatremia, currently sodium 150 Plan: The patient was seen and evaluated by Dr. Mas Chest x-ray, ABGs and labs reviewed We'll decrease the respiratory rate to 16, decrease FiO2 to 40% Add free water 200 mL 4 times a day for hypernatremia Continue daily interruption of sedation Continue current medications Repeat chest x-ray, ABGs and labs in a.m. We will continue to follow and make further recommendations based on his clinical status Critical care time 38 minutes I, the cosigning physician, performed a history & physical examination of the patient. Lungs sounds crackles in the bilateral posterior bases. Maintaining good O2 saturations in the 90s on 40% FiO2 with a PEEP of 5 via the mechanical ventilator. I discussed the assessment and plan of care with my nurse practitioner, Brissa Sellers. I attest to the above note as dictated by her.
[2020-09-19 17:23] LABS: Glucose,Whole Blood 165 mg/dL (75-99)
[2020-09-19 23:05] LABS: Glucose,Whole Blood 167 mg/dL (75-99)
[2020-09-20] MEDS: PIPERACILLIN-TAZOBACTAM 3.375 GM in SODIUM CHLORIDE 0.9% 100 ML IVPB SCH ×3 (03:26→20:03)
[2020-09-20 03:45] LABS: Basophils # (A) 0.1 k/uL (0-0.2); Basophils % (A) 1 %; Eosinophils # (A) 0.1 k/uL (0-0.7); Eosinophils % (A) 1 %; HCT 43.6 % (39.0-53.0); HGB 14.3 gm/dL (13.0-17.5); Lymphocytes # (A) 0.5 k/uL (1.0-4.8); Lymphocytes % (A) 4 %; MCH 30.2 pg (25.0-35.0); MCHC 32.7 g/dL (31.0-37.0); MCV 92.4 fL (80.0-100.0); Mean Platelet Volume 9.3; Monocytes # (A) 0.8 k/uL (0-1.0); Monocytes % (A) 7 %; Neutrophils # (A) 9.2 k/uL (1.3-7.7); Neutrophils % (A) 87 %; Platelet Count 173 k/uL (150-450); RBC 4.72 m/uL (4.30-5.90); RDW 12.8 % (11.5-15.5); WBC 10.6 k/uL (3.8-10.6)
[2020-09-20 03:55] LABS: African American GFR (CKD) >90 (>60 ml/min/1.73 sqM); Anion Gap 6 mmol/L; Blood Urea Nitrogen 42 mg/dL (9-20); Calcium 8.4 mg/dL (8.4-10.2); Carbon Dioxide 38 mmol/L (22-30); Chloride 107 mmol/L (98-107); Glucose 147 mg/dL (74-99); Non-African American GFR(CKD) >90 (>60 ml/min/1.73 sqM); Sodium 151 mmol/L (137-145)
[2020-09-20 04:20] LABS: Potassium 4.3 mmol/L (3.5-5.1)
[2020-09-20] MEDS: methylPREDNISolone SOD SUCCI 125 MG/2 ML VIAL IV SCH (05:29)
[2020-09-20] MEDS: ACETAMINOPHEN TAB 325 MG TAB PO PRN (05:29)
[2020-09-20] MEDS: INSULIN ASPART (NovoLOG) 100 UNIT/ML VIAL SQ SCH ×4 (05:29→23:41)
[2020-09-20 05:34] LABS: ABG Base Excess 12.9 mmol/L; ABG HCO3 37 mmol/L (21-25); ABG Oxygen Saturation 97.2 % (94-97); ABG PCO2 57 mmHg (35-45); ABG PH 7.42 (7.35-7.45); ABG PO2 87 mmHg (83-108); ABG TCO2 39 mmol/L (19-24); Allen Test Performed? Yes
[2020-09-20] MEDS: fentaNYL (PF). 1,000 MCG in SODIUM CHLORIDE 0.9% 80 ML IV SCH (05:38)
--- NOTE | 2020-09-20 07:48 | XR ---
EXAMINATION TYPE: XR chest 1V portable DATE OF EXAM: 09/20/2020 CLINICAL HISTORY: Difficulty breathing and pneumonia progress study. TECHNIQUE: Single AP portable semiupright view of the chest is obtained. COMPARISON: Chest x-ray from one day earlier and older studies. FINDINGS: Stable endotracheal and orogastric tubes. Stable left subclavian central venous catheter. There are persistent right greater than left bibasilar opacities. The cardiac silhouette size is sta ble and within normal limits. Partial visualization of surgical change in the cervical spine is redem onstrated. IMPRESSION: Persistent right greater than left bibasilar opacities. No significant change from most r ecent x-ray.
[2020-09-20] MEDS: ALBUTEROL HFA INHALER INHALATION SCH ×4 (07:54→20:22)
[2020-09-20] MEDS: TIOTROPIUM 2.5 MCG INHALER INHALATION SCH (07:55)
[2020-09-20] MEDS: IPRATROPIUM-ALBUTEROL 3 ML NEB INHALATION SCH ×4 (07:55→20:22)
[2020-09-20] MEDS: ENOXAPARIN 40 MG/0.4 ML SYRINGE SQ SCH (08:02)
[2020-09-20] MEDS: FAMOTIDINE 20 MG/2 ML VIAL IV SCH ×2 (08:02→20:03)
[2020-09-20] MEDS: FUROSEMIDE 10 MG/ML 4 ML VIAL IV SCH ×2 (08:02→10:38)
[2020-09-20] MEDS: CITALOPRAM HYDROBROMIDE 20 MG TAB PO SCH (08:02)
[2020-09-20] MEDS: CHLORHEXIDINE GLUCONATE 15 ML CUP MUCOUS MEM SCH (08:02)
[2020-09-20] MEDS: PANTOPRAZOLE 40 MG/10 ML VIAL IVP SCH (08:03)
[2020-09-20] MEDS ORDERED: DEXMEDETOMIDINE/0.9% NACL(PMX) 400 MCG in EMPTY BAG 1 BAG IV SCH (09:30)
--- NOTE | 2020-09-20 10:39 | P.PN ---
Subjective Progress Note Date: 09/20/20 This is 60-year-old white male patient who was seen in the emergency department on 09/14/2020 for evaluation of shortness of breath and chest tightness that started the night before, patient felt like he could not catch his breath, he denied any cough or congestion, denied any nausea vomiting or sweats, denied any upper back, jaw or arm pain, patient is a current smoker, his current chronic medical conditions include COPD not normally on home oxygen, chronic back pain, with history of back surgeries, marijuana use and previous episodes of pneumonia, his pulse ox was 97% on room air, he was afebrile, and his chest x- ray showed no acute cardiopulmonary process, he tested negative for COVID-19, he was given breathing treatments and steroids in the emergency department, and upon reevaluation he was feeling much better, he was discharged home on a course of steroids and albuterol inhaler. She was supposed to recheck with his primary care physician in 1-2 days, however he came back to the emergency department at around 1:00 in the morning with complaint of severe shortness of breath, patient was very hypoxic and agitated and could not answer any questions. His repeat blood work showed a white blood cell count of 36.6, hemoglobin of 15.2, his d- dimer was 2.03, his BUN is 21, creatinine is 1.28, and anion gap metabolic acidosis with a lactic acid of 7.2, troponin level was negative at less than 0.012, proBNP was elevated at 1830, patient was in severe respiratory distress, his chest x-ray showed extensive bilateral airspace disease predominantly in the mid and lower lungs that was new since the prior exam, with a differential including infectious/inflammatory process, pulmonary edema or hemorrhage. His CTA chest showed no evidence of pulmonary embolism, lung windows showed extensi ve patchy airspace disease throughout the lungs bilaterally, no mass. In view of severe respiratory distress patient was emergently intubated and placed on mechanical ventilator, and he is currently on assist control mode of ventilation with a rate of 16, tidal arm is 400, FiO2 of 50% and PEEP of 5, his blood gas postintubation showed pO2 of 256, CO2 43, pH of 7.30, patient was given IV steroids, and dose of IV Lasix, he was placed on antibiotics in the form of Zosyn and Levaquin, currently just on Zosyn, he remains intubated and sedated, currently on parenteral secondary to 1:30 ML per hour, Diprivan is at 20 mics per kilo per minute, repeat blood gas this morning shows pO2 of 74, pCO2 42, and pH of 7.35 this was done on 50% FiO2, patient was fluid resuscitated, currently his plasma lactic acid is down to 1.4, urinalysis shows moderate blood, 1+ ketones, 1+ protein, but no definite sign of infection, his urine drug screen was positive for opiates and marijuana, his COVID-19 test again was negative. Repeat CBC today shows white blood cell count of 36.6, hemoglobin is 15.2, neutrophils of 34.4, lymphocyte count of 0.7. Patient is awaiting a bed in the intensive care unit On 09/16/2020 patient seen in follow-up in intensive care unit, he remains intubated, sedated on mechanical ventilator, currently on VC plus mode of ventilation with a rate of 16, tidal arm is 400, FiO2 of 50% PEEP of 5, this morning's blood gas shows pO2 of 72, pCO2 42, pH is 7.41. He is on point in the same area 20 oh per hour, Diprivan and is currently at 65 mics per kilo per minute. Patient is a synchronous with the ventilator, he will need to be sedated adequately to improve his oxygenation and synchrony with the vent. He remains on a combination of Zosyn and vancomycin, his pro-calcitonin level did come back elevated at 1.67, his echocardiogram showed mildly. EF of 40-45%, he was seen by cardiology, and it is felt that his incentive pulmonary edema is not cardiogenic in nature and related to acute exacerbation of CHF but more likely related to bacterial pneumonia likely aspiration related to pneumonia. He is in sinus mechanism, no arrhythmias overnight, hemodynamically has been stable not requiring any vasopressor support, he has a peak pressure of 11, but his plateau pressures are elevated at 34-41 and patient will be switched assist-control mode of ventilation and adequately seated, he has been given Lasix 40 mg twice daily, and he is in negative fluid balance of 2.9 L over the last 24 hours, today's chest x-ray shows diffuse bilateral airspace infiltrates persistence with slight interval improvement. he tested negative twice for COVID 19 via the PCR test, and habits have's for SARS COVID-19 will be sent, today's lab work has been reviewed showing improvement in his leukocytosis and his white count is down to 20.2 on today's labs, hemoglobin is 13.4, his LDH was elevated at 2044, troponins were negative 2, CRP is 16.1, his proBNP is 1330 On 09/17/2020, patient's follow-up in the intensive care unit, he remains sedated, intubated, currently on assist control mode of ventilation with a rate of 20, count was 400, FiO2 50% and PEEP of 10, his blood gas this morning showed pO2 of 129, pCO2 of 51, and pH of 7.38, and this was done on FiO2 of 50%, he is currently on point in the same at 20 ML per hour, Diprivan is a 70 mics per kilo per minute, and fentanyl infusion is currently at 1 mcg/kg per hour. This morning's chest x-ray has been reviewed showing slight improvement in diffuse airspace infiltrates, patient remains on antibiotics in the form of Zosyn. Vancomycin has been discontinued, he was also diuresed, and Lasix is currently at 40 mg every 8 hours, he has positive fluid balance, +199 over the last 24 hours, and prior to that he was -2.9 the day before, hemodynamically stable, he is in sinus mechanism, is not requiring any vasopressor support, doing well, his CVP today's down to 9, yesterday it was 16. However this morning's labs show some worsening in his renal function and his BUN is 50, and creatinine is up to 1.49, heart rate is 109, CO2 is 31, sodium is 144, potassium is 4.0, white count is improving, and is down to 12.7 on today's labs, hemoglobin is 13.1. Patient tested negative for COVID-19 to be a PCR test, urine Legionella antigen was negative, SARS COVID-19 antibody test was nonreactive. No acute events overnight, tube feedings are vital high-protein at 10 ML per hour with standard water flushes, no other acute events overnight, S x-ray findings improving, labs improving, vital signs have been stable On 09/18/2020 patient is in follow-up in intensive care unit, he remains sedated, and intubated on mechanical ventilator, current vent settings are assist control with a rate of 20, tidal lungs for 100, FiO2 of 45% and PEEP of 8, despite his blood gases shows pO2 of 149, pCO2 51 pH of 7.42, he is on dopamine and 60 mics per kilo per minute, fentanyl is at 1 carlos eduardo per kilo per hour, and 0.9 and was seen at 20 ML per hour, continues on 2 feedings for nutritional support. He is hemodynamically stable, he is in sinus mechanism bradycardia at a rate of 58 BPM, not on any vasopressor support at this time, vital signs have been stable, no fever overnight. Today's chest x-ray shows some improvement in aeration bilaterally. He is covered with antibiotics in the form of Zosyn, his blood and sputum cultures so far are negative. Today's labs have been reviewed, showing white blood cell count of 10, hemoglobin is 12.9, sodium is 145, potassium is 3.9, chloride is 108, CO2 34, BUN of 49, creatinine is 1.02, patient remains on a once daily Lasix 40 mg IV, and he is a -237 negative fluid balance over the last 24 hours. His had no acute events overnight, his resting comfortably on the ventilator. On 09/20/2020 patient seen in follow-up in intensive care unit, he remains intubated, and sedated on mechanical ventilator with the assist control mode of ventilation rate of 16, tidal lungs or 100, FiO2 of 40%, and PEEP is at 5, this was blood gas shows pO2 of 87, pCO2 57, and pH of 7.42. He is currently on 0.9 normal saline at a rate of 20 ML per hour, fentanyl drip is at 2 mics per kilo per hour, and then Diprivan and is at 60 mics per kilo per minute, he is receiving vital high-protein for nutritional support at 38 with a goal of 38 and standard water flushes. Today's chest x-ray shows persistence of right greater than left basilar opacities with no significant change from his most recent chest x-ray. Today's labs have been reviewed, showing normal white count of 10.6, hemoglobin is 14.3, serum sodium is 151, potassium is 4.3, chloride is 107, CO2 is 38, BUN of 42 creatinine 0.84. he was COVID-19 negative 2 and COVID-19 antibody was nonreactive, urine Legionella antigen was negative, she remains on antibiotic coverage in the form of Zosyn for possibility of aspiration pneumonia. His blood cultures have shown no growth, sputum culture with a positive for Nilda albicans likely related to contamination. His vital signs have been stable, his been afebrile, not requiring any vasopressor support. His been on diuretics with Lasix 40 mg IV once daily which will be held today, and according to the EMR patient is in -6.5 L fluid balance over the last 24 hours. His sodium is elevated at 151, and patient is prerenal at this point, we will discontinue the Lasix for now. Objective - Vital Signs Vital signs: Vital Signs Temp 98.5 F 09/20/20 08:00 Pulse 64 09/20/20 10:00 Resp 16 09/20/20 10:00 BP 125/80 09/20/20 10:00 Pulse Ox 91 L 09/20/20 10:00 Intake & Output 09/19/20 09/20/20 09/20/20 18:59 06:59 18:59 Intake Total 286.986 1002.587 760.449 Output Total 8374 905 300 Balance -7433.934 835.587 460.449 Weight 67.7 kg Intake: IV 438 486 104 0.9NS Flush 78 66 24 Piperacillin-Tazobactam 3 100 200 .375 gm In Sodium Chloride 0.9% 100 ml @ 25 mls/hr IVPB Q8H RAGHU Rx#: [id number] ns 260 220 80 Intake, IV Titration 350.066 436.587 236.449 Amount fentaNYL (PF). 1,000 mcg 81.401 167.080 68.923 In Sodium Chloride 0.9% 80 ml @ Per Protocol IV . Q0M ARGHU Rx#:[id number] propofoL 1,000 mg In 268.665 269.507 167.526 Empty Bag 1 bag @ Titrate IV .Q0M RAGHU Rx#: [id number] Tube Feeding 152 418 190 Other 400 230 Output: Urine 8374 905 300 Other: Voiding Method Indwelling Catheter Indwelling Catheter # Bowel Movements 1 1 ABP, PAP, CO, CI - Last Documented Arterial Blood Pressure 142/71 - Exam GENERAL EXAM: Sedated, intubated, 52-year-old white male, resting comfortably currently on AC plus mode of ventilation with a rate 16, tidal lines 400, FiO2 40% and PEEP of 5, comfortable in no apparent distress. HEAD: Normocephalic/atraumatic. EYES: Normal reaction of pupils, equal size. Conjunctiva pink, sclera white. NOSE: Clear with pink turbinates. THROAT: No erythema or exudates. NECK: No masses, no JVD, no thyroid enlargement, no adenopathy. CHEST: No chest wall deformity. Symmetrical expansion. LUNGS: Equal air entry with no crackles, wheeze, rhonchi or dullness. CVS: Regular rate and rhythm, normal S1 and S2, no gallops, no murmurs, no rubs ABDOMEN: Soft, nontender. No hepatosplenomegaly, normal bowel sounds, no guarding or rigidity. EXTREMITIES: No clubbing, no edema, no cyanosis, 2+ pulses and upper and lower extremities. MUSCULOSKELETAL: Muscle strength and tone normal. SPINE: No scoliosis or deformity SKIN: No rashes CENTRAL NERVOUS SYSTEM: Sedated, intubated No focal deficits, tone is normal in all 4 extremities. - Labs CBC & Chem 7: 09/20/20 03:30 09/20/20 03:30 Labs: Abnormal Lab Results - Last 24 Hours (Table) 09/19/20 09/19/20 09/19/20 Range/Units 12:02 17:22 23:03 Neutrophils # (1.3-7.7) k/uL Lymphocytes # (1.0-4.8) k/uL ABG pCO2 (35-45) mmHg ABG HCO3 (21-25) mmol/L ABG Total CO2 (19-24) mmol/L ABG O2 Saturation (94-97) % Sodium (137-145) mmol/L Carbon Dioxide (22-30) mmol/L BUN (9-20) mg/dL Glucose (74-99) mg/dL POC Glucose (mg/dL) 180 H 165 H 167 H (75-99) mg/dL 09/20/20 09/20/20 09/20/20 Range/Units 03:30 03:30 05:29 Neutrophils # 9.2 H (1.3-7.7) k/uL Lymphocytes # 0.5 L (1.0-4.8) k/uL ABG pCO2 57 H (35-45) mmHg ABG HCO3 37 H (21-25) mmol/L ABG Total CO2 39 H (19-24) mmol/L ABG O2 Saturation 97.2 H (94-97) % Sodium 151 H (137-145) mmol/L Carbon Dioxide 38 H (22-30) mmol/L BUN 42 H (9-20) mg/dL Glucose 147 H (74-99) mg/dL POC Glucose (mg/dL) (75-99) mg/dL Microbiology - Last 24 Hours (Table) 09/15/20 03:15 Blood Culture - Preliminary Blood No Growth after 120 hours 09/15/20 03:00 Blood Culture - Preliminary Blood No Growth after 120 hours Assessment and Plan Plan: Assessment: #1. Acute hypoxic respiratory failure related to possibility of aspiration pneumonia and pulmonary edema, COVID-19 test was negative 2, SARS COV-2 antibody non-reactive. Pro-calcitonin level came back elevated at 1.67, digestive possibility of bacterial pneumonia, patient is covered with Zosyn, vancomycin has been discontinued #2. Acute exacerbation of COPD #3. Acute anion gap metabolic acidosis related to lactic acidosis the possibility of sepsis, improved #4. Elevated d-dimer without CT evidence of pulmonary embolism #5. Smoker #6. Marijuana use #7. Chronic back pain #8. Cardiomyopathy with ejection fraction of 40-45% #9. Hypernatremia related to diuretic therapy and free water deficit, Lasix will be placed on hold #10. Volume contraction alkalosis related to diuretic therapy Plan: Apparently patient feels sedation holiday yesterday by becoming agitated and was placed back on sedation We'll proceed with another sedation interruption, may switch over to Precedex if becomes agitated We'll give spontaneous breathing trial with pressure-support of 5 and CPAP of 5 Discontinue Lasix Continue Zosyn the solu-medrol to 40 mg every 8 hours Vital signs have been stable, no acute events overnight, no fever or chills GI and DVT prophylaxis Try to get the patient extubated today Repeat chest x-ray in the morning, follow-up labs. I performed a history & physical examination of the patient and discussed their management with my nurse practitioner, Chaparrita Eubanks. I reviewed the nurse practitioner's note and agree with the documented findings and plan of care. Lung sounds are positive for diffuse wheezes throughout the lung interiano. The findings and the impression was discussed with the patient. I attest to the documentation by the nurse practitioner. Time with Patient: Greater than 30
[2020-09-20 11:47] LABS: Glucose,Whole Blood 141 mg/dL (75-99)
--- NOTE | 2020-09-20 12:44 | P.PN ---
Subjective Progress Note Date: 09/20/20 Subjective Progress Note Date: 09/19/20 This is a 60-year-old male patient of Dr. Granger past medical history of COPD, tobacco use and dependence, chronic marijuana use, chronic neck and back pain, recurrent depression and generalized anxiety, benign prostatic hypertrophy. Patient was seen in the emergency center on September 14 with complaints of difficulty breathing. His chest x-ray showed chronic changes without acute pulmonary process. He was given nebulizer treatment and Solu- Medrol 125 mg IV 1, stabilized and discharged home. He returned to the emergency center on September 15 with worsening shortness of breath and mental status changes. He was found to be afebrile, heart rate 101, respiratory rate 27, pulse ox 98%, blood pressure initially 180/83, subsequently 103/87. WBC 36.6, hemoglobin 15.2 and platelet count 278. Electrolytes normal. BUN 21 creatinine 1.28. Blood sugar 143. D-dimer 2.03. Calcium 10.3. Magnesium 2.0. Blood sugar 143. Total bilirubin 1.1, AST 84, ALT 21, alkaline phosphatase 118. Lactic acid 7.2. Troponin negative. ProBNP 1830. Urinalysis showed moderate blood. Coronavirus PCR not detected. EKG was a sinus rhythm with no acute ST changes. CT angiogram of the chest revealed no pulmonary and is on. Extensive patchy airspace disease throughout the lungs bilaterally may represent inflammatory process including Covid 19. Chest x-ray reveals extensive bilateral airspace disease predominantly in the mid and lower lungs since prior. Echocardiogram reveals EF of 40-45% with borderline concentric left regular hypertrophy, mild tricuspid regurgitation. Abdominal x-ray showed overall nonobstructive bowel gas pattern. He has been started on IV Lasix 40 mg every 12 hours, DuoNeb treatments, Solu-Medrol 60 mg IV every 6 hours, Zosyn, vancomycin. 09/16 patient remains intubated on 50 of FIP PEEP of 10 respiratory rate 20 assist-control. Vitals reviewed status temp of 99.2 pulse 56 respiratory rate 23 blood pressure 107/62 oxygen saturation 94% on 50% FiO2. Chest x-ray suggestive of progressive diffuse airspace infiltrates. Patient's leukocytosis has slightly improved since yesterday to 20. ABG this morning suggest a pH of 7.4 pCO2 42 pO2 of 72 and BNP suggestive, BUN 33 creatinine 1.3 glucose 121. Patient had a -3 L output yesterday. Echo obtained suggest EF of 40-45% with hypokinesis of the lateral wall of ventricle. Inflammation markers elevated including pro-calcitonin. Chest x-ray concerning for bilateral infiltrates with possibility of flash pulmonary edema versus aspiration pneumonia. Continue antibiotics including vancomycin, Zosyn and levofloxacin. Legionella and Mycoplasma ordered. COVID-19 negative twice. UDS positive for opiates and marijuana. Blood cultures have been negative. Hold vancomycin. Sputum cultures. Lasix increased to 40 3 times a day. 09/17 patient examined bedside. Patient's at bedside. Patient remains intubated on 45% FiO2 and PEEP of 8 respiratory rate 20 and tidal volume 400 assist-control. Patient's blood gas this morning shows a pO2 of 129 pCO2 51. 7.38. Continuous remain on propofol and fentanyl infusion. Patient's chest x- ray this morning shows slight improvement in his diffuse airspace infiltrate. Patient remains on Zosyn and Lasix. Lasix was reduced from 3 times a day to once a day to prevent kidney damage. Patient has been diuresing well. Vancomycin was discontinued yesterday. Patient has a positive fluid balance over the last 24 hours. He remains in sinus rhythm. No requirement of pressors. CBC has improved to 7 from 16. An assessment of patient's lab patient does have a leukocytosis of 12.7 which is improved from 20 BUN has increased from 33 to 50 creatinine increased from 1.3 to 1.49. Glucose of 179 calcium 7.8. Legionella is negative, mycoplasma IgM is negative. Continuing denies antibiotics.Zosyn. We'll place patient on insulin sliding scale. Vent management per pulmonary. 09/18: Patient examined at bedside. Remained intubated on 45% FiO2 and a PEEP of 8 respirations 20 and a tidal volume 400 with assist-control. Attempt to wean patient today will be started. Patient remains on propofol and fentanyl infusion. Patient remains on Zosyn and Lasix. He is diuresing well. Patient remains in sinus rhythm with no requirement of pressors. 09/19: Patient examined at the bedside remain intubated on 45% FiO2 and a PEEP of 8 respirations 20. Yesterday he was tempted to wean patient when the sedation was decreased patient's pressure elevated. Attempt to wean will be done again today with a CPAP trial is able to tolerate. Patient remains on propofol and fentanyl infusion at this time. Chest x-ray shows no evidence of pneumothorax or pleural effusion. Prominent of interstitium present bilaterally. Patchy density is seen again. It is similar to the prior exam. CBC 9.5, hemoglobin 13.7, calcium 3.9, BUN 48, creatinine 0.95. 09/20: Patient is remain on mechanical ventilation try to extubate patient is still on fentanyl IV along with propofol, try to wean him off gradually and prepare for extubation. Chest x-ray showed persistent right greater than left basilar opacity mostly pneumonia and he still been treated for gram-negative pneumonia with Zosyn, patient still been treated for COPD as well with Solu- Medrol, spit leave out, DuoNeb, Pulmicort. REVIEW OF SYSTEMS Unable to obtain due to mental status change, intubation. Physical exam: General Appearance: D10-year-old intubated and sedated gentleman Neck HEENT: Supple, no lymphadenopathy, no thyroid enlargement, no carotid bruits. Lungs: Decreased air entry with crackles Heart: Regular rate and rhythm, S1, S2 normal, no murmur, rub or gallop. Back: Symmetric, no curvature, Abdomen: Soft, non-tender, no rebound or rigidity, no hepatosplenomegaly. Extremities: Extremities normal, atraumatic, no cyanosis or edema. Pulses: 2+ and symmetric. Skin: Skin color, texture, tugor decreased, no rashes or lesions. Neurologic: Sedated and intubated Assessment/plan: 1. Acute hypoxic respiratory failure secondary to aspiration pneumonia and pulmonary edema and congestive heart failure, COVID-19 was negative and antibody was nonreactive to confirm this is not Covid case so far. Patient still been treated for gram-negative pneumonia with Zosyn and vancomycin was stopped patient clinically improved some chest x-ray slightly but better. 2. Metabolic encephalopathy secondary to sepsis and aspiration pneumonia. 3. Chronic pain syndrome. Has been on fentanyl drip which will be switched to morphine. 4. Tobacco use and dependence. Hold Nicotine patch. 5. Marijuana use. 6. Recurrent depression and generalized anxiety disorder. Hold citalopram 40 mg daily. 7. Benign prostatic hypertrophy. Patient is normally on Flomax 0.4 mg daily. 8. hyperglycemia on steroids we will initiate insulin sliding scale 9. GI prophylaxis. Protonix 40 mg IV daily. 10. DVT prophylaxis. Lovenox 40 mg subcu daily. Code Status: Full code Prognosis: Still fair. Objective - Vital Signs Vital signs: Vital Signs Temp 100.8 F H 09/20/20 05:00 Pulse 66 09/20/20 06:00 Resp 14 09/20/20 06:00 BP 119/74 09/20/20 06:00 Pulse Ox 95 09/20/20 06:00 Intake & Output 09/19/20 09/19/20 09/20/20 06:59 18:59 06:59 Intake Total 1195.043 095.561 5932.587 Output Total 895 8374 905 Balance 300.043 -7433.934 835.587 Weight 68.1 kg 67.7 kg Intake: IV 286 438 486 0.9NS Flush 66 78 66 Piperacillin-Tazobactam 3 100 200 .375 gm In Sodium Chloride 0.9% 100 ml @ 25 mls/hr IVPB Q8H RAGHU Rx#: [id number] ns 220 260 220 Intake, IV Titration 401.043 350.066 436.587 Amount fentaNYL (PF). 1,000 mcg 99.345 81.401 167.080 In Sodium Chloride 0.9% 80 ml @ Per Protocol IV . Q0M RAGHU Rx#:[id number] propofoL 1,000 mg In 301.698 268.665 269.507 Empty Bag 1 bag @ Titrate IV .Q0M RAGHU Rx#: [id number] Tube Feeding 418 152 418 Other 90 400 Output: Urine 895 8374 905 Other: Voiding Method Indwelling Catheter Indwelling Catheter Indwelling Catheter # Bowel Movements 1 ABP, PAP, CO, CI - Last Documented Arterial Blood Pressure 128/67 - Labs CBC & Chem 7: 09/20/20 03:30 09/20/20 03:30 Labs: Abnormal Lab Results - Last 24 Hours (Table) 09/19/20 09/19/20 09/19/20 Range/Units 12:02 17:22 23:03 Neutrophils # (1.3-7.7) k/uL Lymphocytes # (1.0-4.8) k/uL ABG pCO2 (35-45) mmHg ABG HCO3 (21-25) mmol/L ABG Total CO2 (19-24) mmol/L ABG O2 Saturation (94-97) % Sodium (137-145) mmol/L Carbon Dioxide (22-30) mmol/L BUN (9-20) mg/dL Glucose (74-99) mg/dL POC Glucose (mg/dL) 180 H 165 H 167 H (75-99) mg/dL 09/20/20 09/20/20 09/20/20 Range/Units 03:30 03:30 05:29 Neutrophils # 9.2 H (1.3-7.7) k/uL Lymphocytes # 0.5 L (1.0-4.8) k/uL ABG pCO2 57 H (35-45) mmHg ABG HCO3 37 H (21-25) mmol/L ABG Total CO2 39 H (19-24) mmol/L ABG O2 Saturation 97.2 H (94-97) % Sodium 151 H (137-145) mmol/L Carbon Dioxide 38 H (22-30) mmol/L BUN 42 H (9-20) mg/dL Glucose 147 H (74-99) mg/dL POC Glucose (mg/dL) (75-99) mg/dL Microbiology - Last 24 Hours (Table) 09/15/20 03:15 Blood Culture - Preliminary Blood No Growth after 120 hours 09/15/20 03:00 Blood Culture - Preliminary Blood No Growth after 120 hours
[2020-09-20 13:11] LABS: ABG Base Excess 12.5 mmol/L; ABG HCO3 36 mmol/L (21-25); ABG Oxygen Saturation 99.5 % (94-97); ABG PCO2 47 mmHg (35-45); ABG PH 7.49 (7.35-7.45); ABG PO2 212 mmHg (83-108); ABG TCO2 37 mmol/L (19-24)
[2020-09-20 13:12] LABS: Allen Test Performed? no
[2020-09-20] MEDS: CLEVIDIPINE BUTYRATE 25 MG in EMPTY BAG 1 BAG IV SCH ×2 (16:05→20:13)
[2020-09-20] MEDS: methylPREDNISolone SOD SUCCI 40 MG/ML 1 ML VIAL IV SCH ×2 (16:22→23:41)
[2020-09-20 18:10] LABS: Glucose,Whole Blood 153 mg/dL (75-99)
[2020-09-20 23:37] LABS: Glucose,Whole Blood 140 mg/dL (75-99)
[2020-09-21] MEDS ORDERED: POTASSIUM CHLORIDE 20 MEQ/100 ML BAG IVPB ONE (04:57)
[2020-09-21 05:19] LABS: Basophils % (A) 0 %; Eosinophils % (A) 0 %; HGB 14.3 gm/dL (13.0-17.5); Lymphocytes # (A) 0.9 k/uL (1.0-4.8); Lymphocytes % (A) 5 %; MCHC 31.7 g/dL (31.0-37.0); MCV 91.5 fL (80.0-100.0); Mean Platelet Volume 9.2; Monocytes # (A) 1.3 k/uL (0-1.0); Monocytes % (A) 7 %; Neutrophils # (A) 14.9 k/uL (1.3-7.7); Neutrophils % (A) 86 %; Platelet Count 163 k/uL (150-450); RBC 4.92 m/uL (4.30-5.90); RDW 13.2 % (11.5-15.5); WBC 17.3 k/uL (3.8-10.6)
[2020-09-21] MEDS ORDERED: DILTIAZEM 125 MG/25 ML VIAL IV ONE (05:20)
[2020-09-21] MEDS ORDERED: DILTIAZEM DRIP BOLUS FROM BAG 1 MG SOLN IV ONE (05:20)
[2020-09-21] MEDS ORDERED: SODIUM CHLORIDE 0.9% 100 ML BAG ONE (05:20)
[2020-09-21 05:26] LABS: ALT 113 U/L (4-49); AST 47 U/L (17-59); African American GFR (CKD) >90 (>60 ml/min/1.73 sqM); Albumin 3.6 g/dL (3.5-5.0); Alkaline Phosphatase 68 U/L (38-126); Anion Gap 3 mmol/L; Blood Urea Nitrogen 37 mg/dL (9-20); Calcium 8.7 mg/dL (8.4-10.2); Carbon Dioxide 33 mmol/L (22-30); Chloride 109 mmol/L (98-107); Glucose 109 mg/dL (74-99); Magnesium 2.7 mg/dL (1.6-2.3); Non-African American GFR(CKD) >90 (>60 ml/min/1.73 sqM); Potassium 3.7 mmol/L (3.5-5.1); Sodium 145 mmol/L (137-145); Total Protein 6.2 g/dL (6.3-8.2)
[2020-09-21] MEDS: PIPERACILLIN-TAZOBACTAM 3.375 GM in SODIUM CHLORIDE 0.9% 100 ML IVPB SCH (06:02)
[2020-09-21] MEDS: INSULIN ASPART (NovoLOG) 100 UNIT/ML VIAL SQ SCH ×3 (06:03→18:07)
--- NOTE | 2020-09-21 07:15 | XR ---
EXAMINATION TYPE: XR chest 1V portable DATE OF EXAM: 09/21/2020 HISTORY: Shortness of breath. COMPARISON: 09/20/2020 TECHNIQUE: Single view of the chest is submitted. FINDINGS: Demonstrated are scattered senescent parenchymal change. Improving patchy basilar infiltrates with mild residual noted and mild discoid atelectasis left lung base. The heart is stable. Hilar and mediastinal structures are within normal limits. Degenerative changes are seen of the dorsal spine. IMPRESSION: 1. Improving patchy basilar infiltrates with mild residual noted and mild discoid atelectasis left l yasemin base.
[2020-09-21] MEDS: IPRATROPIUM-ALBUTEROL 3 ML NEB INHALATION SCH ×4 (07:24→23:42)
[2020-09-21] MEDS: ALBUTEROL HFA INHALER INHALATION SCH ×4 (07:24→23:44)
[2020-09-21 08:17] LABS: Glucose,Whole Blood 129 mg/dL (75-99)
[2020-09-21] MEDS: methylPREDNISolone SOD SUCCI 40 MG/ML 1 ML VIAL IV SCH ×3 (08:57→23:45)
[2020-09-21] MEDS: ENOXAPARIN 40 MG/0.4 ML SYRINGE SQ SCH (08:58)
[2020-09-21] MEDS: PANTOPRAZOLE 40 MG/10 ML VIAL IVP SCH (08:58)
[2020-09-21] MEDS: CITALOPRAM HYDROBROMIDE 20 MG TAB PO SCH (08:58)
[2020-09-21] MEDS: FAMOTIDINE 20 MG/2 ML VIAL IV SCH (08:58)
--- NOTE | 2020-09-21 10:29 | P.PN ---
Subjective Progress Note Date: 09/21/20 This is 60-year-old white male patient who was seen in the emergency department on 09/14/2020 for evaluation of shortness of breath and chest tightness that started the night before, patient felt like he could not catch his breath, he denied any cough or congestion, denied any nausea vomiting or sweats, denied any upper back, jaw or arm pain, patient is a current smoker, his current chronic medical conditions include COPD not normally on home oxygen, chronic back pain, with history of back surgeries, marijuana use and previous episodes of pneumonia, his pulse ox was 97% on room air, he was afebrile, and his chest x- ray showed no acute cardiopulmonary process, he tested negative for COVID-19, he was given breathing treatments and steroids in the emergency department, and upon reevaluation he was feeling much better, he was discharged home on a course of steroids and albuterol inhaler. She was supposed to recheck with his primary care physician in 1-2 days, however he came back to the emergency department at around 1:00 in the morning with complaint of severe shortness of breath, patient was very hypoxic and agitated and could not answer any questions. His repeat blood work showed a white blood cell count of 36.6, hemoglobin of 15.2, his d- dimer was 2.03, his BUN is 21, creatinine is 1.28, and anion gap metabolic acidosis with a lactic acid of 7.2, troponin level was negative at less than 0.012, proBNP was elevated at 1830, patient was in severe respiratory distress, his chest x-ray showed extensive bilateral airspace disease predominantly in the mid and lower lungs that was new since the prior exam, with a differential including infectious/inflammatory process, pulmonary edema or hemorrhage. His CTA chest showed no evidence of pulmonary embolism, lung windows showed extensi ve patchy airspace disease throughout the lungs bilaterally, no mass. In view of severe respiratory distress patient was emergently intubated and placed on mechanical ventilator, and he is currently on assist control mode of ventilation with a rate of 16, tidal arm is 400, FiO2 of 50% and PEEP of 5, his blood gas postintubation showed pO2 of 256, CO2 43, pH of 7.30, patient was given IV steroids, and dose of IV Lasix, he was placed on antibiotics in the form of Zosyn and Levaquin, currently just on Zosyn, he remains intubated and sedated, currently on parenteral secondary to 1:30 ML per hour, Diprivan is at 20 mics per kilo per minute, repeat blood gas this morning shows pO2 of 74, pCO2 42, and pH of 7.35 this was done on 50% FiO2, patient was fluid resuscitated, currently his plasma lactic acid is down to 1.4, urinalysis shows moderate blood, 1+ ketones, 1+ protein, but no definite sign of infection, his urine drug screen was positive for opiates and marijuana, his COVID-19 test again was negative. Repeat CBC today shows white blood cell count of 36.6, hemoglobin is 15.2, neutrophils of 34.4, lymphocyte count of 0.7. Patient is awaiting a bed in the intensive care unit On 09/16/2020 patient seen in follow-up in intensive care unit, he remains intubated, sedated on mechanical ventilator, currently on VC plus mode of ventilation with a rate of 16, tidal arm is 400, FiO2 of 50% PEEP of 5, this morning's blood gas shows pO2 of 72, pCO2 42, pH is 7.41. He is on point in the same area 20 oh per hour, Diprivan and is currently at 65 mics per kilo per minute. Patient is a synchronous with the ventilator, he will need to be sedated adequately to improve his oxygenation and synchrony with the vent. He remains on a combination of Zosyn and vancomycin, his pro-calcitonin level did come back elevated at 1.67, his echocardiogram showed mildly. EF of 40-45%, he was seen by cardiology, and it is felt that his incentive pulmonary edema is not cardiogenic in nature and related to acute exacerbation of CHF but more likely related to bacterial pneumonia likely aspiration related to pneumonia. He is in sinus mechanism, no arrhythmias overnight, hemodynamically has been stable not requiring any vasopressor support, he has a peak pressure of 11, but his plateau pressures are elevated at 34-41 and patient will be switched assist-control mode of ventilation and adequately seated, he has been given Lasix 40 mg twice daily, and he is in negative fluid balance of 2.9 L over the last 24 hours, today's chest x-ray shows diffuse bilateral airspace infiltrates persistence with slight interval improvement. he tested negative twice for COVID 19 via the PCR test, and habits have's for SARS COVID-19 will be sent, today's lab work has been reviewed showing improvement in his leukocytosis and his white count is down to 20.2 on today's labs, hemoglobin is 13.4, his LDH was elevated at 2044, troponins were negative 2, CRP is 16.1, his proBNP is 1330 On 09/17/2020, patient's follow-up in the intensive care unit, he remains sedated, intubated, currently on assist control mode of ventilation with a rate of 20, count was 400, FiO2 50% and PEEP of 10, his blood gas this morning showed pO2 of 129, pCO2 of 51, and pH of 7.38, and this was done on FiO2 of 50%, he is currently on point in the same at 20 ML per hour, Diprivan is a 70 mics per kilo per minute, and fentanyl infusion is currently at 1 mcg/kg per hour. This morning's chest x-ray has been reviewed showing slight improvement in diffuse airspace infiltrates, patient remains on antibiotics in the form of Zosyn. Vancomycin has been discontinued, he was also diuresed, and Lasix is currently at 40 mg every 8 hours, he has positive fluid balance, +199 over the last 24 hours, and prior to that he was -2.9 the day before, hemodynamically stable, he is in sinus mechanism, is not requiring any vasopressor support, doing well, his CVP today's down to 9, yesterday it was 16. However this morning's labs show some worsening in his renal function and his BUN is 50, and creatinine is up to 1.49, heart rate is 109, CO2 is 31, sodium is 144, potassium is 4.0, white count is improving, and is down to 12.7 on today's labs, hemoglobin is 13.1. Patient tested negative for COVID-19 to be a PCR test, urine Legionella antigen was negative, SARS COVID-19 antibody test was nonreactive. No acute events overnight, tube feedings are vital high-protein at 10 ML per hour with standard water flushes, no other acute events overnight, S x-ray findings improving, labs improving, vital signs have been stable On 09/18/2020 patient is in follow-up in intensive care unit, he remains sedated, and intubated on mechanical ventilator, current vent settings are assist control with a rate of 20, tidal lungs for 100, FiO2 of 45% and PEEP of 8, despite his blood gases shows pO2 of 149, pCO2 51 pH of 7.42, he is on dopamine and 60 mics per kilo per minute, fentanyl is at 1 carlos eduardo per kilo per hour, and 0.9 and was seen at 20 ML per hour, continues on 2 feedings for nutritional support. He is hemodynamically stable, he is in sinus mechanism bradycardia at a rate of 58 BPM, not on any vasopressor support at this time, vital signs have been stable, no fever overnight. Today's chest x-ray shows some improvement in aeration bilaterally. He is covered with antibiotics in the form of Zosyn, his blood and sputum cultures so far are negative. Today's labs have been reviewed, showing white blood cell count of 10, hemoglobin is 12.9, sodium is 145, potassium is 3.9, chloride is 108, CO2 34, BUN of 49, creatinine is 1.02, patient remains on a once daily Lasix 40 mg IV, and he is a -237 negative fluid balance over the last 24 hours. His had no acute events overnight, his resting comfortably on the ventilator. On 09/20/2020 patient seen in follow-up in intensive care unit, he remains intubated, and sedated on mechanical ventilator with the assist control mode of ventilation rate of 16, tidal lungs or 100, FiO2 of 40%, and PEEP is at 5, this was blood gas shows pO2 of 87, pCO2 57, and pH of 7.42. He is currently on 0.9 normal saline at a rate of 20 ML per hour, fentanyl drip is at 2 mics per kilo per hour, and then Diprivan and is at 60 mics per kilo per minute, he is receiving vital high-protein for nutritional support at 38 with a goal of 38 and standard water flushes. Today's chest x-ray shows persistence of right greater than left basilar opacities with no significant change from his most recent chest x-ray. Today's labs have been reviewed, showing normal white count of 10.6, hemoglobin is 14.3, serum sodium is 151, potassium is 4.3, chloride is 107, CO2 is 38, BUN of 42 creatinine 0.84. he was COVID-19 negative 2 and COVID-19 antibody was nonreactive, urine Legionella antigen was negative, she remains on antibiotic coverage in the form of Zosyn for possibility of aspiration pneumonia. His blood cultures have shown no growth, sputum culture with a positive for Nilda albicans likely related to contamination. His vital signs have been stable, his been afebrile, not requiring any vasopressor support. His been on diuretics with Lasix 40 mg IV once daily which will be held today, and according to the EMR patient is in -6.5 L fluid balance over the last 24 hours. His sodium is elevated at 151, and patient is prerenal at this point, we will discontinue the Lasix for now. On 09/21/2020 patient seen in follow-up in the intensive care unit, he was successfully weaned and extubated yesterday on 09/20/2020, tolerated extubation quite well so far, he is awake and alert, oriented 3, he is responding appropriately, appears to be in no acute distress, breathing comfortably, he is currently on 4 L of oxygen and the pulse ox of 96%, hemodynamically he is stable, he said no fever or chills overnight, he did have a run of A. fib with RVR and was started on Cardizem drip on which she remains at 10 mg per hour, 0.9 normal saline and is infusing at 20 ML per hour, he is not on any other drips, no vasopressors. He had since converted back to sinus rhythm in which he remains, with a controlled rate at 65 BPM, today's chest x-ray shows improving patchy basilar infiltrates with mild residual and mild discoid atelectasis at the left lung base. Today's labs show white blood count of 17.3, hemoglobin of 14.3, sodium of 145, potassium is 3.7, chloride is 109, CO2 33, BUN of 37, cr eatinine 0.72, sputum culture was positive for Nilda albicans. Patient is on IV steroids 40 mg every 8 hours, and Zosyn and breathing treatments Objective - Vital Signs Vital signs: Vital Signs Temp 98.4 F 09/21/20 04:00 Pulse 65 09/21/20 10:00 Resp 15 09/21/20 10:00 BP 121/90 09/21/20 10:00 Pulse Ox 96 09/21/20 10:00 Intake & Output 09/20/20 09/21/20 09/21/20 18:59 06:59 18:59 Intake Total 1326.216 820.866 104 Output Total 990 890 175 Balance 336.216 -69.134 -71 Weight 67.7 kg Intake: IV 412 412 104 0.9NS Flush 72 72 38 Piperacillin-Tazobactam 3 100 100 .375 gm In Sodium Chloride 0.9% 100 ml @ 25 mls/hr IVPB Q8H R[facility] Rx#: [id number] ns 240 240 66 Intake, IV Titration 342.216 108.866 Amount Clevidipine Butyrate 25 1.967 73.466 mg In Empty Bag 1 bag @ 1 MG/HR 2 mls/hr IV .Q24H [facility]AG[facility] Rx#:[id number] Dexmedetomidine/0.9% NaCl 64.600 35.4 (Pmx) 400 mcg In Empty Bag 1 bag @ Titrate IV . Q0M [facility] Rx#:[id number] fentaNYL (PF). 1,000 mcg 84.490 In Sodium Chloride 0.9% 80 ml @ Per Protocol IV . Q0M [facility] Rx#:[id number] propofoL 1,000 mg In 191.159 Empty Bag 1 bag @ Titrate IV .Q0M RAGHU Rx#: [id number] Oral 300 Tube Feeding 342 Other 230 Output: Urine 990 890 175 Other: Voiding Method Indwelling Catheter Indwelling Catheter # Bowel Movements 1 ABP, PAP, CO, CI - Last Documented Arterial Blood Pressure 142/74 - Exam GENERAL EXAM: Awake and alert, 52-year-old white male, resting comfortably currently on 4 L of oxygen and the pulse ox of 96% comfortable in no apparent distress. HEAD: Normocephalic/atraumatic. EYES: Normal reaction of pupils, equal size. Conjunctiva pink, sclera white. NOSE: Clear with pink turbinates. THROAT: No erythema or exudates. NECK: No masses, no JVD, no thyroid enlargement, no adenopathy. CHEST: No chest wall deformity. Symmetrical expansion. LUNGS: Equal air entry with no crackles, wheeze, rhonchi or dullness. CVS: Regular rate and rhythm, normal S1 and S2, no gallops, no murmurs, no rubs ABDOMEN: Soft, nontender. No hepatosplenomegaly, normal bowel sounds, no guarding or rigidity. EXTREMITIES: No clubbing, no edema, no cyanosis, 2+ pulses and upper and lower extremities. MUSCULOSKELETAL: Muscle strength and tone normal. SPINE: No scoliosis or deformity SKIN: No rashes CENTRAL NERVOUS SYSTEM: Awake and alert, 52-year-old white male on 4 L of oxygen. No focal deficits, tone is normal in all 4 extremities. - Labs CBC & Chem 7: 09/21/20 03:15 09/21/20 03:15 Labs: Abnormal Lab Results - Last 24 Hours (Table) 09/20/20 09/20/20 09/20/20 Range/Units 11:44 13:09 18:09 WBC (3.8-10.6) k/uL Neutrophils # (1.3-7.7) k/uL Lymphocytes # (1.0-4.8) k/uL Monocytes # (0-1.0) k/uL ABG pH 7.49 H (7.35-7.45) ABG pCO2 47 H (35-45) mmHg ABG pO2 212 H (83-108) mmHg ABG HCO3 36 H (21-25) mmol/L ABG Total CO2 37 H (19-24) mmol/L ABG O2 Saturation 99.5 H (94-97) % Chloride (98-107) mmol/L Carbon Dioxide (22-30) mmol/L BUN (9-20) mg/dL Glucose (74-99) mg/dL POC Glucose (mg/dL) 141 H 153 H (75-99) mg/dL Magnesium (1.6-2.3) mg/dL ALT (4-49) U/L Total Protein (6.3-8.2) g/dL 09/20/20 09/21/20 09/21/20 Range/Units 23:34 03:15 03:15 WBC 17.3 H (3.8-10.6) k/uL Neutrophils # 14.9 H (1.3-7.7) k/uL Lymphocytes # 0.9 L (1.0-4.8) k/uL Monocytes # 1.3 H (0-1.0) k/uL ABG pH (7.35-7.45) ABG pCO2 (35-45) mmHg ABG pO2 (83-108) mmHg ABG HCO3 (21-25) mmol/L ABG Total CO2 (19-24) mmol/L ABG O2 Saturation (94-97) % Chloride 109 H (98-107) mmol/L Carbon Dioxide 33 H (22-30) mmol/L BUN 37 H (9-20) mg/dL Glucose 109 H (74-99) mg/dL POC Glucose (mg/dL) 140 H (75-99) mg/dL Magnesium 2.7 H (1.6-2.3) mg/dL ALT 113 H (4-49) U/L Total Protein 6.2 L (6.3-8.2) g/dL 09/21/20 Range/Units 05:59 WBC (3.8-10.6) k/uL Neutrophils # (1.3-7.7) k/uL Lymphocytes # (1.0-4.8) k/uL Monocytes # (0-1.0) k/uL ABG pH (7.35-7.45) ABG pCO2 (35-45) mmHg ABG pO2 (83-108) mmHg ABG HCO3 (21-25) mmol/L ABG Total CO2 (19-24) mmol/L ABG O2 Saturation (94-97) % Chloride (98-107) mmol/L Carbon Dioxide (22-30) mmol/L BUN (9-20) mg/dL Glucose (74-99) mg/dL POC Glucose (mg/dL) 129 H (75-99) mg/dL Magnesium (1.6-2.3) mg/dL ALT (4-49) U/L Total Protein (6.3-8.2) g/dL Microbiology - Last 24 Hours (Table) 09/15/20 03:15 Blood Culture - Final Blood No Growth after 144 hours 09/15/20 03:00 Blood Culture - Final Blood No Growth after 144 hours Assessment and Plan Plan: Assessment: #1. Acute hypoxic respiratory failure related to possibility of aspiration pneumonia and pulmonary edema, COVID-19 test was negative 2, SARS COV-2 antibody non-reactive. Pro-calcitonin level came back elevated at 1.67, sugge sting possibility of bacterial pneumonia, patient is covered with Zosyn, vancomycin has been discontinued #2. Acute exacerbation of COPD #3. Acute anion gap metabolic acidosis related to lactic acidosis the possibility of sepsis, improved #4. Elevated d-dimer without CT evidence of pulmonary embolism #5. Smoker #6. Marijuana use #7. Chronic back pain #8. Cardiomyopathy with ejection fraction of 40-45% #9. Hypernatremia related to diuretic therapy and free water deficit, Lasix wi ll be placed on hold, improved #10. Volume contraction alkalosis related to diuretic therapy, improved, Lasix remains on hold Plan: Patient was successfully weaned and extubated yesterday on 09/20/2020, and tolerating extubation quite well so far Wean FiO2 to maintain O2 saturations at or above 90% Provide incentive spirometer We'll switch IV Zosyn to oral Augmentin Continue with current dose IV steroids Today's chest x-ray has been reviewed Vital signs have been stable Advance diet as tolerated if passed swallow evaluation GI and DVT prophylaxis Lasix remains on hold Sodium improved Transfer patient to selective care unit today I performed a history & physical examination of the patient and discussed their management with my nurse practitioner, Chaparrita Eubanks. I reviewed the nurse practitioner's note and agree with the documented findings and plan of care. Lung sounds are positive for diffuse wheezes throughout the lung interiano. The findings and the impression was discussed with the patient. I attest to the documentation by the nurse practitioner. Time with Patient: Greater than 30
[2020-09-21] MEDS: ACETAMINOPHEN TAB 325 MG TAB PO PRN (10:52)
[2020-09-21] MEDS: TIOTROPIUM 2.5 MCG INHALER INHALATION SCH (11:34)
[2020-09-21] MEDS: HYDROcodone/APAP 5-325MG 1 EACH TAB PO PRN ×2 (12:13→20:57)
--- NOTE | 2020-09-21 12:45 | P.PN ---
Subjective This is a 60-year-old male patient of Dr. Granger past medical history of COPD, tobacco use and dependence, chronic marijuana use, chronic neck and back pain, recurrent depression and generalized anxiety, benign prostatic hypertrophy. Patient was seen in the emergency center on September 14 with complaints of difficulty breathing. His chest x-ray showed chronic changes without acute pulmonary process. He was given nebulizer treatment and Solu- Medrol 125 mg IV 1, stabilized and discharged home. He returned to the emergency center on September 15 with worsening shortness of breath and mental status changes. He was found to be afebrile, heart rate 101, respiratory rate 27, pulse ox 98%, blood pressure initially 180/83, subsequently 103/87. WBC 36.6, hemoglobin 15.2 and platelet count 278. Electrolytes normal. BUN 21 creatinine 1.28. Blood sugar 143. D-dimer 2.03. Calcium 10.3. Magnesium 2.0. Blood sugar 143. Total bilirubin 1.1, AST 84, ALT 21, alkaline phosphatase 118. Lactic acid 7.2. Troponin negative. ProBNP 1830. Urinalysis showed moderate blood. Coronavirus PCR not detected. EKG was a sinus rhythm with no acute ST changes. CT angiogram of the chest revealed no pulmonary and is on. Extensive patchy airspace disease throughout the lungs bilaterally may represent inflammatory process including Covid 19. Chest x-ray reveals extensive bilateral airspace disease predominantly in the mid and lower lungs since prior. Echocardiogram reveals EF of 40-45% with borderline concentric left regular hypertrophy, mild tricuspid regurgitation. Abdominal x-ray showed overall nonobstructive bowel gas pattern. He has been started on IV Lasix 40 mg every 12 hours, DuoNeb treatments, Solu-Medrol 60 mg IV every 6 hours, Zosyn, vancomycin. 09/16 patient remains intubated on 50 of FIP PEEP of 10 respiratory rate 20 assist-control. Vitals reviewed status temp of 99.2 pulse 56 respiratory rate 23 blood pressure 107/62 oxygen saturation 94% on 50% FiO2. Chest x-ray suggestive of progressive diffuse airspace infiltrates. Patient's leukocytosis has slightly improved since yesterday to 20. ABG this morning suggest a pH of 7.4 pCO2 42 pO2 of 72 and BNP suggestive, BUN 33 creatinine 1.3 glucose 121. Patient had a -3 L output yesterday. Echo obtained suggest EF of 40-45% with hypokinesis of the lateral wall of ventricle. Inflammation markers elevated including pro-calcitonin. Chest x-ray concerning for bilateral infiltrates with possibility of flash pulmonary edema versus aspiration pneumonia. Continue antibiotics including vancomycin, Zosyn and levofloxacin. Legionella and Mycoplasma ordered. COVID-19 negative twice. UDS positive for opiates and marijuana. Blood cultures have been negative. Hold vancomycin. Sputum cultures. Lasix increased to 40 3 times a day. 09/17 patient examined bedside. Patient's at bedside. Patient remains intubated on 45% FiO2 and PEEP of 8 respiratory rate 20 and tidal volume 400 assist-control. Patient's blood gas this morning shows a pO2 of 129 pCO2 51. 7.38. Continuous remain on propofol and fentanyl infusion. Patient's chest x- ray this morning shows slight improvement in his diffuse airspace infiltrate. Patient remains on Zosyn and Lasix. Lasix was reduced from 3 times a day to once a day to prevent kidney damage. Patient has been diuresing well. Vancomycin was discontinued yesterday. Patient has a positive fluid balance over the last 24 hours. He remains in sinus rhythm. No requirement of pressors. CBC has improved to 7 from 16. An assessment of patient's lab patient does have a leukocytosis of 12.7 which is improved from 20 BUN has increased from 33 to 50 creatinine increased from 1.3 to 1.49. Glucose of 179 calcium 7.8. Legionella is negative, mycoplasma IgM is negative. Continuing denies antibiotics.Zosyn. We'll place patient on insulin sliding scale. Vent management per pulmonary. 09/18: Patient examined at bedside. Remained intubated on 45% FiO2 and a PEEP of 8 respirations 20 and a tidal volume 400 with assist-control. Attempt to wean patient today will be started. Patient remains on propofol and fentanyl infusion. Patient remains on Zosyn and Lasix. He is diuresing well. Patient remains in sinus rhythm with no requirement of pressors. 09/19: Patient examined at the bedside remain intubated on 45% FiO2 and a PEEP of 8 respirations 20. Yesterday he was tempted to wean patient when the sedation was decreased patient's pressure elevated. Attempt to wean will be done again today with a CPAP trial is able to tolerate. Patient remains on propofol and fentanyl infusion at this time. Chest x-ray shows no evidence of pneumothorax or pleural effusion. Prominent of interstitium present bilaterally. Patchy density is seen again. It is similar to the prior exam. CBC 9.5, hemoglobin 1 3.7, calcium 3.9, BUN 48, creatinine 0.95. 09/20: Patient is remain on mechanical ventilation try to extubate patient is still on fentanyl IV along with propofol, try to wean him off gradually and p repare for extubation. Chest x-ray showed persistent right greater than left basilar opacity mostly pneumonia and he still been treated for gram-negative pneumonia with Zosyn, patient still been treated for COPD as well with Solu- Medrol, spit leave out, DuoNeb, Pulmicort. 09/21: Patient remains in the ICU, he was able to be successfully extubated yesterday. He is awake and alert, pulse ox of 96% on 4 L nasal cannula. He did have a short run of atrial fibrillation with RVR and started on a Cardizem drip and has now converted back to normal sinus rhythm. Repeat chest x-ray showed improving patchy basilar infiltrates with mild residual noted in the mild discoid atelectasis in the left lung base. He continues to be treated for pneumonia with Zosyn steroids and updrafts. Objective - Vital Signs Vital signs: Vital Signs Temp 98.4 F 09/21/20 04:00 Pulse 63 09/21/20 07:00 Resp 16 09/21/20 07:00 BP 123/85 09/21/20 07:00 Pulse Ox 91 L 09/21/20 07:00 Intake & Output 09/20/20 09/21/20 09/21/20 18:59 06:59 18:59 Intake Total 1326.216 820.866 26 Output Total 990 890 100 Balance 336.216 -69.134 -74 Weight 67.7 kg Intake: IV 412 412 26 0.9NS Flush 72 72 6 Piperacillin-Tazobactam 3 100 100 .375 gm In Sodium Chloride 0.9% 100 ml @ 25 mls/hr IVPB Q8H RAGHU Rx#: [id number] ns 240 240 20 Intake, IV Titration 342.216 108.866 Amount Clevidipine Butyrate 25 1.967 73.466 mg In Empty Bag 1 bag @ 1 MG/HR 2 mls/hr IV .Q24H RAGHU Rx#:[id number] Dexmedetomidine/0.9% NaCl 64.600 35.4 (Pmx) 400 mcg In Empty Bag 1 bag @ Titrate IV . Q0M RAGHU Rx#:[id number] fentaNYL (PF). 1,000 mcg 84.490 In Sodium Chloride 0.9% 80 ml @ Per Protocol IV . Q0M RAGHU Rx#:[id number] propofoL 1,000 mg In 191.159 Empty Bag 1 bag @ Titrate IV .Q0M RAGHU Rx#: [id number] Oral 300 Tube Feeding 342 Other 230 Output: Urine 990 890 100 Other: Voiding Method Indwelling Catheter Indwelling Catheter # Bowel Movements 1 ABP, PAP, CO, CI - Last Documented Arterial Blood Pressure 144/68 - Exam General Appearance: 60-year-old gentleman Neck HEENT: Supple, no lymphadenopathy, no thyroid enlargement, no carotid bruits. Lungs: Decreased air entry with crackles Heart: Regular rate and rhythm, S1, S2 normal, no murmur, rub or gallop. Back: Symmetric, no curvature, Abdomen: Soft, non-tender, no rebound or rigidity, no hepatosplenomegaly. Extremities: Extremities normal, atraumatic, no cyanosis or edema. Pulses: 2+ and symmetric. Skin: Skin color, texture, tugor decreased, no rashes or lesions. Neurologic: Awake alert and oriented - Labs CBC & Chem 7: 09/21/20 03:15 09/21/20 03:15 Labs: Abnormal Lab Results - Last 24 Hours (Table) 09/20/20 09/20/20 09/20/20 Range/Units 11:44 13:09 18:09 WBC (3.8-10.6) k/uL Neutrophils # (1.3-7.7) k/uL Lymphocytes # (1.0-4.8) k/uL Monocytes # (0-1.0) k/uL ABG pH 7.49 H (7.35-7.45) ABG pCO2 47 H (35-45) mmHg ABG pO2 212 H (83-108) mmHg ABG HCO3 36 H (21-25) mmol/L ABG Total CO2 37 H (19-24) mmol/L ABG O2 Saturation 99.5 H (94-97) % Chloride (98-107) mmol/L Carbon Dioxide (22-30) mmol/L BUN (9-20) mg/dL Glucose (74-99) mg/dL POC Glucose (mg/dL) 141 H 153 H (75-99) mg/dL Magnesium (1.6-2.3) mg/dL ALT (4-49) U/L Total Protein (6.3-8.2) g/dL 09/20/20 09/21/20 09/21/20 Range/Units 23:34 03:15 03:15 WBC 17.3 H (3.8-10.6) k/uL Neutrophils # 14.9 H (1.3-7.7) k/uL Lymphocytes # 0.9 L (1.0-4.8) k/uL Monocytes # 1.3 H (0-1.0) k/uL ABG pH (7.35-7.45) ABG pCO2 (35-45) mmHg ABG pO2 (83-108) mmHg ABG HCO3 (21-25) mmol/L ABG Total CO2 (19-24) mmol/L ABG O2 Saturation (94-97) % Chloride 109 H (98-107) mmol/L Carbon Dioxide 33 H (22-30) mmol/L BUN 37 H (9-20) mg/dL Glucose 109 H (74-99) mg/dL POC Glucose (mg/dL) 140 H (75-99) mg/dL Magnesium 2.7 H (1.6-2.3) mg/dL ALT 113 H (4-49) U/L Total Protein 6.2 L (6.3-8.2) g/dL Microbiology - Last 24 Hours (Table) 09/15/20 03:15 Blood Culture - Final Blood No Growth after 144 hours 09/15/20 03:00 Blood Culture - Final Blood No Growth after 144 hours Assessment and Plan Plan: 1. Acute hypoxic respiratory failure secondary to aspiration pneumonia and pulmonary edema and congestive heart failure, COVID-19 was negative and antibody was nonreactive to confirm this is not Covid case so far. Patient still been treated for gram-negative pneumonia with Zosyn and vancomycin was stopped patient clinically improved some chest x-ray slightly but better. 2. Metabolic encephalopathy secondary to sepsis and aspiration pneumonia. 3. Chronic pain syndrome. Has been on fentanyl drip which will be switched to morphine. 4. Tobacco use and dependence. Hold Nicotine patch. 5. Marijuana use. 6. Recurrent depression and generalized anxiety disorder. Hold citalopram 40 mg daily. 7. Benign prostatic hypertrophy. Patient is normally on Flomax 0.4 mg daily. 8. hyperglycemia on steroids we will initiate insulin sliding scale 9. GI prophylaxis. Protonix 40 mg IV daily. 10. DVT prophylaxis. Lovenox 40 mg subcu daily. Code Status: Full code Prognosis: Still fair. The above impression and plan of care have been discussed and directed by omar alvarado physician. Haleigh Silva nurse practitioner acting as scribe for signing physician.
[2020-09-21 13:46] LABS: Glucose,Whole Blood 152 mg/dL (75-99)
[2020-09-21] MEDS ORDERED: LORazepam 2 MG/ML INJ IV STA (13:53)
[2020-09-21] MEDS: BACLOFEN 10 MG TAB PO SCH ×2 (15:11→20:57)
[2020-09-21 17:25] LABS: Glucose,Whole Blood 130 mg/dL (75-99)
[2020-09-21 20:41] LABS: Glucose,Whole Blood 165 mg/dL (75-99)
[2020-09-21] MEDS: FAMOTIDINE 20 MG TAB PO SCH (20:57)
[2020-09-21] MEDS: AMOXIC-POT CLAV 875-125MG 1 EACH TAB PO SCH (20:57)
[2020-09-22 06:21] LABS: Glucose,Whole Blood 144 mg/dL (75-99)
[2020-09-22] MEDS: INSULIN ASPART (NovoLOG) 100 UNIT/ML VIAL SQ SCH ×4 (06:29→20:20)
[2020-09-22] MEDS: PANTOPRAZOLE 40 MG TABLET PO SCH (06:29)
--- NOTE | 2020-09-22 07:26 | XR ---
EXAMINATION TYPE: XR chest 1V portable DATE OF EXAM: 09/22/2020 CLINICAL HISTORY: Difficulty breathing and pneumonia progress study. TECHNIQUE: Single AP portable upright view of the chest is obtained. COMPARISON: Chest x-ray from one day earlier and older studies FINDINGS: Interval removal of left subclavian central venous catheter. There is persistent improved aeration in the right lung base. Left basilar opacity probably stable fr om most recent study. The cardiac silhouette size is mildly enlarged. Partial visualization of surgic al change in the cervical spine is redemonstrated. IMPRESSION: Continued improved aeration right lung base. Stable left basilar atelectasis and/or infil trate from one day earlier. No new infiltrate.
[2020-09-22] MEDS: TIOTROPIUM 2.5 MCG INHALER INHALATION SCH (07:56)
[2020-09-22] MEDS: ALBUTEROL HFA INHALER INHALATION SCH ×4 (07:56→19:56)
[2020-09-22] MEDS: IPRATROPIUM-ALBUTEROL 3 ML NEB INHALATION SCH ×4 (07:56→19:56)
[2020-09-22] MEDS: methylPREDNISolone SOD SUCCI 40 MG/ML 1 ML VIAL IV SCH ×2 (08:45→20:14)
[2020-09-22] MEDS: AMOXIC-POT CLAV 875-125MG 1 EACH TAB PO SCH ×2 (08:45→20:13)
[2020-09-22] MEDS: FAMOTIDINE 20 MG TAB PO SCH ×2 (08:45→20:13)
[2020-09-22] MEDS: CITALOPRAM HYDROBROMIDE 20 MG TAB PO SCH (08:45)
[2020-09-22] MEDS: ENOXAPARIN 40 MG/0.4 ML SYRINGE SQ SCH (08:45)
[2020-09-22] MEDS: BACLOFEN 10 MG TAB PO SCH ×3 (08:45→20:13)
[2020-09-22] MEDS: FUROSEMIDE 10 MG/ML 4 ML VIAL IV SCH (09:04)
[2020-09-22] MEDS: HYDROcodone/APAP 5-325MG 1 EACH TAB PO PRN ×2 (11:43→18:05)
[2020-09-22 11:51] LABS: Glucose,Whole Blood 120 mg/dL (75-99)
--- NOTE | 2020-09-22 15:00 | P.PN ---
Subjective Progress Note Date: 09/22/20 Principal diagnosis: Respiratory failure. On 09/18/2020 patient is in follow-up in intensive care unit, he remains sedated, and intubated on mechanical ventilator, current vent settings are assist control with a rate of 20, tidal lungs for 100, FiO2 of 45% and PEEP of 8, despite his blood gases shows pO2 of 149, pCO2 51 pH of 7.42, he is on dopamine and 60 mics per kilo per minute, fentanyl is at 1 carlos eduardo per kilo per hour, and 0.9 and was seen at 20 ML per hour, continues on 2 feedings for nutritional support. He is hemodynamically stable, he is in sinus mechanism bradycardia at a rate of 58 BPM, not on any vasopressor support at this time, vital signs have been stable, no fever overnight. Today's chest x-ray shows some improvement in aeration bilaterally. He is covered with antibiotics in the form of Zosyn, his blood and sputum cultures so far are negative. Today's labs have been reviewed, showing white blood cell count of 10, hemoglobin is 12.9, sodium is 145, potassium is 3.9, chloride is 108, CO2 34, BUN of 49, creatinine is 1.02, patient remains on a once daily Lasix 40 mg IV, and he is a -237 negative fluid balance over the last 24 hours. His had no acute events overnight, his resting comfortably on the ventilator. On 09/20/2020 patient seen in follow-up in intensive care unit, he remains intubated, and sedated on mechanical ventilator with the assist control mode of ventilation rate of 16, tidal lungs or 100, FiO2 of 40%, and PEEP is at 5, this was blood gas shows pO2 of 87, pCO2 57, and pH of 7.42. He is currently on 0.9 normal saline at a rate of 20 ML per hour, fentanyl drip is at 2 mics per kilo per hour, and then Diprivan and is at 60 mics per kilo per minute, he is receiving vital high-protein for nutritional support at 38 with a goal of 38 and standard water flushes. Today's chest x-ray shows persistence of right greater than left basilar opacities with no significant change from his most recent chest x-ray. Today's labs have been reviewed, showing normal white count of 10.6, hemoglobin is 14.3, serum sodium is 151, potassium is 4.3, chloride is 107, CO2 is 38, BUN of 42 creatinine 0.84. he was COVID-19 negative 2 and COVID-19 antibody was nonreactive, urine Legionella antigen was negative, she remains on antibiotic coverage in the form of Zosyn for possibility of aspiration pneumonia. His blood cultures have shown no growth, sputum culture with a positive for Nilda albicans likely related to contamination. His vital signs have been stable, his been afebrile, not requiring any vasopressor support. His been on diuretics with Lasix 40 mg IV once daily which will be held today, and according to the EMR patient is in -6.5 L fluid balance over the last 24 hours. His sodium is elevated at 151, and patient is prerenal at this point, we will discontinue the Lasix for now. On 09/21/2020 patient seen in follow-up in the intensive care unit, he was successfully weaned and extubated yesterday on 09/20/2020, tolerated extubation quite well so far, he is awake and alert, oriented 3, he is responding approp riately, appears to be in no acute distress, breathing comfortably, he is currently on 4 L of oxygen and the pulse ox of 96%, hemodynamically he is stable, he said no fever or chills overnight, he did have a run of A. fib with RVR and was started on Cardizem drip on which she remains at 10 mg per hour, 0.9 normal saline and is infusing at 20 ML per hour, he is not on any other drips, no vasopressors. He had since converted back to sinus rhythm in which he remains, with a controlled rate at 65 BPM, today's chest x-ray shows improving patchy basilar infiltrates with mild residual and mild discoid atelectasis at the left lung base. Today's labs show white blood count of 17.3, hemoglobin of 14.3, sodium of 145, potassium is 3.7, chloride is 109, CO2 33, BUN of 37, creatinine 0.72, sputum culture was positive for Nilda albicans. Patient is on IV steroids 40 mg every 8 hours, and Zosyn and breathing treatments Progress note dated 09/22/2020. This is a 60-year-old male, who was in the intensive care unit, on the ventilator. He was successfully weaned and extubated on September 20. Currently, the patient's doing well. He has been weaned down to 2 L. He's not receiving any IV fluids. Saturations are 97%. The patient denies shortness of breath, cough, wheezing, phlegm production, chest pain, chest discomfort, or any other complaints for that matter. No new labs today. Chest x-ray today, shows improved aeration to the right lung base, and stable left basilar atelectasis/infiltrate. Objective - Vital Signs Vital signs: Vital Signs Temp 97.5 F L 09/22/20 11:45 Pulse 75 09/22/20 11:45 Resp 18 09/22/20 11:45 BP 155/96 09/22/20 11:45 Pulse Ox 99 09/22/20 11:45 Intake & Output 09/21/20 09/22/20 09/22/20 18:59 06:59 18:59 Intake Total 286 1650 500 Output Total 600 800 Balance -314 850 500 Weight 71 kg Intake: IV 286 20 0.9NS Flush 178 ns 108 20 Oral 1650 480 Output: Urine 600 800 Other: Voiding Method Indwelling Catheter Indwelling Catheter Indwelling Catheter # Bowel Movements 1 ABP, PAP, CO, CI - Last Documented Arterial Blood Pressure 142/74 - Exam No acute distress, oriented 3. Currently on 2 L nasal cannula. Saturation is 98%. HEENT examination is grossly unremarkable. Neck supple. Full range of motion. No adenopathy thyromegaly or neck vein distention. Cardiovascular examination reveals regular rhythm rate. S1-S2 normal. No S3 or S4. No discernible murmur noted. Heart rate 75 bpm. Lungs reveal breath sounds to be equal bilaterally. A few scattered rhonchi are noted. No wheezes or crackles. Abdomen soft bowel sounds are heard. No masses or tenderness. Extremities are intact. No cyanosis clubbing or edema. Skin is without rash or lesion. Neurologic examination is brief but nonfocal. - Labs CBC & Chem 7: 09/21/20 03:15 09/21/20 03:15 Labs: Abnormal Lab Results - Last 24 Hours (Table) 09/21/20 09/21/20 09/22/20 Range/Units 17:23 20:40 06:19 POC Glucose (mg/dL) 130 H 165 H 144 H (75-99) mg/dL 09/22/20 Range/Units 11:50 POC Glucose (mg/dL) 120 H (75-99) mg/dL Assessment and Plan Assessment: #1. Acute hypoxic respiratory failure related to possibility of aspiration pneumonia and pulmonary edema, COVID-19 test was negative 2, SARS COV-2 antibody non-reactive. Pro-calcitonin level came back elevated at 1.67, suggesting possibility of bacterial pneumonia, patient is covered with Zosyn, vancomycin has been discontinued. #2. Acute exacerbation of COPD. #3. Acute anion gap metabolic acidosis related to lactic acidosis the possibility of sepsis, improved. #4. Elevated d-dimer without CT evidence of pulmonary embolism. #5. Smoker. #6. Marijuana use. #7. Chronic back pain. #8. Cardiomyopathy with ejection fraction of 40-45% . #9. Hypernatremia related to diuretic therapy and free water deficit, Lasix will be placed on hold, improved. #10. Volume contraction alkalosis related to diuretic therapy, improved, Lasix remains on hold. Plan: Plan dated 09/22/2020. The patient is actually doing very well. He is down to 2 L nasal cannula, with saturations of 97%. He was successfully extubated on September 20. We recommend deep breathing, coughing, clearing secretions, as well as hourly use of the incentive spirometer. The patient's IV antibiotics were discontinued and Augmentin. The patient's labs and x-rays are reviewed. We will continue to follow. The patient will continue on GI and DVT prophylaxis. Additional recommendations and suggestions are forthcoming. Time with Patient: Less than 30
[2020-09-22 16:39] LABS: Glucose,Whole Blood 119 mg/dL (75-99)
[2020-09-22 20:18] LABS: Glucose,Whole Blood 130 mg/dL (75-99)
[2020-09-22] MEDS: ACETAMINOPHEN TAB 325 MG TAB PO PRN (23:54)
[2020-09-23 05:49] LABS: Glucose,Whole Blood 113 mg/dL (75-99)
[2020-09-23] MEDS: INSULIN ASPART (NovoLOG) 100 UNIT/ML VIAL SQ SCH ×4 (06:11→20:29)
[2020-09-23] MEDS: HYDROcodone/APAP 5-325MG 1 EACH TAB PO PRN ×2 (06:32→23:32)
[2020-09-23] MEDS: PANTOPRAZOLE 40 MG TABLET PO SCH (06:32)
[2020-09-23] MEDS: ALBUTEROL HFA INHALER INHALATION SCH ×4 (08:11→20:31)
[2020-09-23] MEDS: TIOTROPIUM 2.5 MCG INHALER INHALATION SCH (08:11)
[2020-09-23] MEDS: CITALOPRAM HYDROBROMIDE 20 MG TAB PO SCH (09:28)
[2020-09-23] MEDS: AMOXIC-POT CLAV 875-125MG 1 EACH TAB PO SCH ×2 (09:28→20:35)
[2020-09-23] MEDS: BACLOFEN 10 MG TAB PO SCH ×3 (09:28→20:34)
[2020-09-23] MEDS: methylPREDNISolone SOD SUCCI 40 MG/ML 1 ML VIAL IV SCH (09:29)
[2020-09-23] MEDS: FAMOTIDINE 20 MG TAB PO SCH ×2 (09:29→20:35)
[2020-09-23] MEDS: ENOXAPARIN 40 MG/0.4 ML SYRINGE SQ SCH (09:29)
[2020-09-23 10:07] VITALS: BMI 22.1
[2020-09-23 11:47] LABS: Glucose,Whole Blood 107 mg/dL (75-99)
--- NOTE | 2020-09-23 13:32 | P.PN ---
Subjective Progress Note Date: 09/23/20 Principal diagnosis: Respiratory failure. On 09/18/2020 patient is in follow-up in intensive care unit, he remains sedated, and intubated on mechanical ventilator, current vent settings are assist control with a rate of 20, tidal lungs for 100, FiO2 of 45% and PEEP of 8, despite his blood gases shows pO2 of 149, pCO2 51 pH of 7.42, he is on dopamine and 60 mics per kilo per minute, fentanyl is at 1 carlos eduardo per kilo per hour, and 0.9 and was seen at 20 ML per hour, continues on 2 feedings for nutritional support. He is hemodynamically stable, he is in sinus mechanism bradycardia at a rate of 58 BPM, not on any vasopressor support at this time, vital signs have been stable, no fever overnight. Today's chest x-ray shows some improvement in aeration bilaterally. He is covered with antibiotics in the form of Zosyn, his blood and sputum cultures so far are negative. Today's labs have been reviewed, showing white blood cell count of 10, hemoglobin is 12.9, sodium is 145, potassium is 3.9, chloride is 108, CO2 34, BUN of 49, creatinine is 1.02, patient remains on a once daily Lasix 40 mg IV, and he is a -237 negative fluid balance over the last 24 hours. His had no acute events overnight, his resting comfortably on the ventilator. On 09/20/2020 patient seen in follow-up in intensive care unit, he remains intubated, and sedated on mechanical ventilator with the assist control mode of ventilation rate of 16, tidal lungs or 100, FiO2 of 40%, and PEEP is at 5, this was blood gas shows pO2 of 87, pCO2 57, and pH of 7.42. He is currently on 0.9 normal saline at a rate of 20 ML per hour, fentanyl drip is at 2 mics per kilo per hour, and then Diprivan and is at 60 mics per kilo per minute, he is receiving vital high-protein for nutritional support at 38 with a goal of 38 and standard water flushes. Today's chest x-ray shows persistence of right greater than left basilar opacities with no significant change from his most recent chest x-ray. Today's labs have been reviewed, showing normal white count of 10.6, hemoglobin is 14.3, serum sodium is 151, potassium is 4.3, chloride is 107, CO2 is 38, BUN of 42 creatinine 0.84. he was COVID-19 negative 2 and COVID-19 antibody was nonreactive, urine Legionella antigen was negative, she remains on antibiotic coverage in the form of Zosyn for possibility of aspiration pneumonia. His blood cultures have shown no growth, sputum culture with a positive for Nilda albicans likely related to contamination. His vital signs have been stable, his been afebrile, not requiring any vasopressor support. His been on diuretics with Lasix 40 mg IV once daily which will be held today, and according to the EMR patient is in -6.5 L fluid balance over the last 24 hours. His sodium is elevated at 151, and patient is prerenal at this point, we will discontinue the Lasix for now. On 09/21/2020 patient seen in follow-up in the intensive care unit, he was successfully weaned and extubated yesterday on 09/20/2020, tolerated extubation quite well so far, he is awake and alert, oriented 3, he is responding approp riately, appears to be in no acute distress, breathing comfortably, he is currently on 4 L of oxygen and the pulse ox of 96%, hemodynamically he is stable, he said no fever or chills overnight, he did have a run of A. fib with RVR and was started on Cardizem drip on which she remains at 10 mg per hour, 0.9 normal saline and is infusing at 20 ML per hour, he is not on any other drips, no vasopressors. He had since converted back to sinus rhythm in which he remains, with a controlled rate at 65 BPM, today's chest x-ray shows improving patchy basilar infiltrates with mild residual and mild discoid atelectasis at the left lung base. Today's labs show white blood count of 17.3, hemoglobin of 14.3, sodium of 145, potassium is 3.7, chloride is 109, CO2 33, BUN of 37, creatinine 0.72, sputum culture was positive for Nilda albicans. Patient is on IV steroids 40 mg every 8 hours, and Zosyn and breathing treatments Progress note dated 09/22/2020. This is a 60-year-old male, who was in the intensive care unit, on the ventilator. He was successfully weaned and extubated on September 20. Currently, the patient's doing well. He has been weaned down to 2 L. He's not receiving any IV fluids. Saturations are 97%. The patient denies shortness of breath, cough, wheezing, phlegm production, chest pain, chest discomfort, or any other complaints for that matter. No new labs today. Chest x-ray today, shows improved aeration to the right lung base, and stable left basilar atelectasis/infiltrate. Progress note dated 09/23/2020. 60-year-old male, who was on the ventilator, in the intensive care unit. The patient was successfully weaned and extubated on September 20. Currently, his been weaned down to room air. Saturations on room air are 98%. His not receiving any IV fluids. He is hoping to be discharged soon. He denies any shortness of breath, cough, wheezing, or phlegm production. He denies any chest pain or chest discomfort. There is no fever or chills. Objective - Vital Signs Vital signs: Vital Signs Temp 97.6 F 09/23/20 08:10 Pulse 70 09/23/20 08:10 Resp 14 09/23/20 08:10 BP 143/82 09/23/20 08:10 Pulse Ox 99 09/23/20 08:10 Intake & Output 09/22/20 09/23/20 09/23/20 18:59 06:59 18:59 Intake Total 740 240 Output Total 475 425 100 Balance 265 -425 140 Weight 68 kg 68 kg Intake: IV 20 ns 20 Oral 720 240 Output: Urine 475 425 100 Other: Voiding Method Indwelling Catheter Urinal Urinal # Voids 1 ABP, PAP, CO, CI - Last Documented Arterial Blood Pressure 142/74 - Exam No acute distress, oriented 3. Currently on room air, with saturations of 98%. HEENT examination is grossly unremarkable. Neck supple. Full range of motion. No adenopathy thyromegaly or neck vein d istention. Cardiovascular examination reveals regular rhythm rate. S1-S2 normal. No S3 or S4. No discernible murmur noted. Heart rate 54 bpm. Lungs reveal breath sounds to be equal bilaterally. A few scattered rhonchi are noted. No wheezes or crackles. Abdomen soft bowel sounds are heard. No masses or tenderness. Extremities are intact. No cyanosis clubbing or edema. Skin is without rash or lesion. Neurologic examination is brief but nonfocal. - Labs CBC & Chem 7: 09/21/20 03:15 09/21/20 03:15 Labs: Abnormal Lab Results - Last 24 Hours (Table) 09/22/20 09/22/20 09/23/20 Range/Units 16:37 20:17 05:47 POC Glucose (mg/dL) 119 H 130 H 113 H (75-99) mg/dL 09/23/20 Range/Units 11:46 POC Glucose (mg/dL) 107 H (75-99) mg/dL Assessment and Plan Assessment: #1. Acute hypoxic respiratory failure related to possibility of aspiration pneumonia and pulmonary edema, COVID-19 test was negative 2, SARS COV-2 antibody non-reactive. Pro-calcitonin level came back elevated at 1.67, suggesting possibility of bacterial pneumonia, patient is covered with Zosyn, vancomycin has been discontinued. #2. Acute exacerbation of COPD. #3. Acute anion gap metabolic acidosis related to lactic acidosis the possibility of sepsis, improved. #4. Elevated d-dimer without CT evidence of pulmonary embolism. #5. Smoker. #6. Marijuana use. #7. Chronic back pain. #8. Cardiomyopathy with ejection fraction of 40-45% . #9. Hypernatremia related to diuretic therapy and free water deficit, Lasix will be placed on hold, improved. #10. Volume contraction alkalosis related to diuretic therapy, improved, Lasix remains on hold. Plan: Plan dated 09/22/2020. The patient is actually doing very well. He is down to 2 L nasal cannula, with saturations of 97%. He was successfully extubated on September 20. We recommend deep breathing, coughing, clearing secretions, as well as hourly use of the incentive spirometer. The patient's IV antibiotics were discontinued and Augmentin. The patient's labs and x-rays are reviewed. We will continue to follow. The patient will continue on GI and DVT prophylaxis. Additional recommendations and suggestions are forthcoming. Plan dated 09/23/2020. Really, the patient is on Augmentin. I'll DC the Solu-Medrol in favor of a Medrol Dosepak, that can start tomorrow. The patient's doing relatively well. His been weaned down to room air. Is not receiving any IV fluids. The patient is apparently being considered for discharge in next 24-48 hours. We will cont inue to follow. Additional recommendations and suggestions are forthcoming. Prognosis is generally thought to be good. Time with Patient: Less than 30
--- NOTE | 2020-09-23 13:41 | P.PN ---
Subjective Progress Note Date: 09/22/20 HISTORY OF PRESENT ILLNESS This is a 60-year-old male patient of Dr. Granger past medical history of COPD, tobacco use and dependence, chronic marijuana use, chronic neck and back pain, recurrent depression and generalized anxiety, benign prostatic hypertrophy. Patient was seen in the emergency center on September 14 with complaints of difficulty breathing. His chest x-ray showed chronic changes without acute pulmonary process. He was given nebulizer treatment and Solu- Medrol 125 mg IV 1, stabilized and discharged home. He returned to the emergency center on September 15 with worsening shortness of breath and mental status changes. He was found to be afebrile, heart rate 101, respiratory rate 27, pulse ox 98%, blood pressure initially 180/83, subsequently 103/87. WBC 36.6, hemoglobin 15.2 and platelet count 278. Electrolytes normal. BUN 21 creatinine 1.28. Blood sugar 143. D-dimer 2.03. Calcium 10.3. Magnesium 2.0. Blood sugar 143. Total bilirubin 1.1, AST 84, ALT 21, alkaline phosphatase 118. Lactic acid 7.2. Troponin negative. ProBNP 1830. Urinalysis showed moderate blood. Coronavirus PCR not detected. EKG was a sinus rhythm with no acute ST changes. CT angiogram of the chest revealed no pulmonary and is on. Extensive patchy airspace disease throughout the lungs bilaterally may represent inflammatory process including Covid 19. Chest x-ray reveals extensive bilateral airspace disease predominantly in the mid and lower lungs since prior. Echocardiogram reveals EF of 40-45% with borderline concentric left regular hypertrophy, mild tricuspid regurgitation. Abdominal x-ray showed overall nonobstructive bowel gas pattern. He has been started on IV Lasix 40 mg every 12 hours, DuoNeb treatments, Solu-Medrol 60 mg IV every 6 hours, Zosyn, vancomycin. 09/16 patient remains intubated on 50 of FIP PEEP of 10 respiratory rate 20 a ssist-control. Vitals reviewed status temp of 99.2 pulse 56 respiratory rate 23 blood pressure 107/62 oxygen saturation 94% on 50% FiO2. Chest x-ray suggestive of progressive diffuse airspace infiltrates. Patient's leukocytosis has slightly improved since yesterday to 20. ABG this morning suggest a pH of 7.4 pCO2 42 pO2 of 72 and BNP suggestive, BUN 33 creatinine 1.3 glucose 121. Patient had a -3 L output yesterday. Echo obtained suggest EF of 40-45% with hypokinesis of the lateral wall of ventricle. Inflammation markers elevated including pro-calcitonin. Chest x-ray concerning for bilateral infiltrates with possibility of flash pulmonary edema versus aspiration pneumonia. Continue antibiotics including vancomycin, Zosyn and levofloxacin. Legionella and Mycoplasma ordered. COVID-19 negative twice. UDS positive for opiates and marijuana. Blood cultures have been negative. Hold vancomycin. Sputum cultures. Lasix increased to 40 3 times a day. 09/17 patient examined bedside. Patient's at bedside. Patient remains intubated on 45% FiO2 and PEEP of 8 respiratory rate 20 and tidal volume 400 assist-control. Patient's blood gas this morning shows a pO2 of 129 pCO2 51. 7.38. Continuous remain on propofol and fentanyl infusion. Patient's chest x- ray this morning shows slight improvement in his diffuse airspace infiltrate. Patient remains on Zosyn and Lasix. Lasix was reduced from 3 times a day to once a day to prevent kidney damage. Patient has been diuresing well. Vancomycin was discontinued yesterday. Patient has a positive fluid balance over the last 24 hours. He remains in sinus rhythm. No requirement of pressors. CBC has improved to 7 from 16. An assessment of patient's lab patient does have a leukocytosis of 12.7 which is improved from 20 BUN has increased from 33 to 50 creatinine increased from 1.3 to 1.49. Glucose of 179 calcium 7.8. Legionella is negative, mycoplasma IgM is negative. Continuing denies antibiotics.Zosyn. We'll place patient on insulin sliding scale. Vent management per pulmonary. 09/18: Patient examined at bedside. Remained intubated on 45% FiO2 and a PEEP of 8 respirations 20 and a tidal volume 400 with assist-control. Attempt to wean patient today will be started. Patient remains on propofol and fentanyl infusion. Patient remains on Zosyn and Lasix. He is diuresing well. Patient remains in sinus rhythm with no requirement of pressors. 09/19: Patient examined at the bedside remain intubated on 45% FiO2 and a PEEP of 8 respirations 20. Yesterday he was tempted to wean patient when the sedation was decreased patient's pressure elevated. Attempt to wean will be done again today with a CPAP trial is able to tolerate. Patient remains on propofol and fentanyl infusion at this time. Chest x-ray shows no evidence of pneumothorax or pleural effusion. Prominent of interstitium present bilaterally. Patchy density is seen again. It is similar to the prior exam. CBC 9.5, hemoglobin 13.7, calcium 3.9, BUN 48, creatinine 0.95. 09/20: Patient is remain on mechanical ventilation try to extubate patient is still on fentanyl IV along with propofol, try to wean him off gradually and prepare for extubation. Chest x-ray showed persistent right greater than left basilar opacity mostly pneumonia and he still been treated for gram-negative pneumonia with Zosyn, patient still been treated for COPD as well with Solu- Medrol, spit leave out, DuoNeb, Pulmicort. 09/21: Patient remains in the ICU, he was able to be successfully extubated yesterday. He is awake and alert, pulse ox of 96% on 4 L nasal cannula. He did have a short run of atrial fibrillation with RVR and started on a Cardizem drip and has now converted back to normal sinus rhythm. Repeat chest x-ray showed improving patchy basilar infiltrates with mild residual noted in the mild discoid atelectasis in the left lung base. He continues to be treated for pneumonia with Zosyn steroids and updrafts. 09/22: Patient states that he is feeling a lot better today. Patient does have home oxygen therapy. He is seen today sitting in recliner and appears to be comfortable at rest. Pulse ox is 99% on 2 L nasal cannula. He's been afebrile, heart rate 69, blood pressure 160/82. Sugars are running between 119 and 165. No other lab work done this morning. Sputum culture is showing Nilda. Chest x-ray reveals continued improved aeration right lung base. Stable left basilar atelectasis and/or infiltrate from one day earlier. No new infiltrate. Patient remains with Brand catheter in place with good urine output. We'll plan to discontinue Brand today and try to increase activity. Patient is reaching 750 ML's on incentive spirometry. REVIEW OF SYSTEMS Constitutional: No fever, no chills, no night sweats. No weight change. No weakness, fatigue or lethargy. No daytime sleepiness. EENT: No headache. No blurred vision or double vision, no loss of vision. No loss of Hearing, no ringing in the ears, no dizziness. No nasal drainage or congestion. No epistaxis. No sore throat. Lungs: Reports shortness of breath improving, cough, no sputum production. No wheezing. Cardiovascular: No chest pain, no lower extremity edema. No palpitations. No paroxysmal nocturnal dyspnea. No orthopnea. No lightheadedness or dizziness. No syncopal episodes. Abdominal: No abdominal pain. No nausea, vomiting. No diarrhea. No constipation. No bloody or tarry stools. No loss of appetite. Genitourinary: No dysuria, increased frequency, urgency. No urinary retention. Musculoskeletal: No myalgias. No muscle weakness, no gait dysfunction, no frequent falls. No back pain. No neck pain. Integumentary: No wounds, no lesions. No rash or pruritus. No unusual bruising. No change in hair or nails. Neurologic: No aphasia. No facial droop. No change in mentation. No head injury. No headache. No paralysis. No paresthesia. Psychiatric: No depression. No anxiety. Endocrine: Noted abnormal blood sugars. PHYSICAL EXAMINATION Gen: This is a thin 60-year-old male. He is resting in recliner appears to be comfortable at rest. No acute respiratory distress noted. HEENT: Head is atraumatic, normocephalic. Pupils equal, round. Sclerae is anicteric. NECK: Supple. No JVD. No lymphadenopathy. No thyromegaly. LUNGS: Few scattered rhonchi. No intercostal retractions. HEART: Regular rate and rhythm. No murmur. ABDOMEN: Soft. Bowel sounds are present. No masses. No tenderness. EXTREMITIES: No pedal edema. No calf tenderness. NEUROLOGICAL: Patient is awake, alert and oriented x3. Cranial nerves 2 through 12 are grossly intact. ASSESSMENT AND PLAN 1. Acute hypoxic respiratory failure secondary to aspiration pneumonia and pulmonary edema and acute systolic heart failure. Continue albuterol inhaler 4 times daily and as needed, DuoNeb treatment every 2 hours as needed, Augmentin, Solu-Medrol 40 mg IV every 12 hours. Pulmonary medicine consult appreciated. Patient is off Lasix. 2. Metabolic encephalopathy secondary to sepsis and aspiration pneumonia. 3. Chronic pain syndrome. Has been on fentanyl drip which will be switched to morphine. 4. Tobacco use and dependence. Hold Nicotine patch. 5. Marijuana use. 6. Recurrent depression and generalized anxiety disorder. Hold citalopram 40 mg daily. 7. Benign prostatic hypertrophy. Patient is normally on Flomax 0.4 mg daily. 8. hyperglycemia on steroids we will initiate insulin sliding scale 9. GI prophylaxis. Protonix 40 mg oral daily. 10. DVT prophylaxis. Lovenox 40 mg subcu daily. 11. Chronic hypoxic respiratory failure on home O2. 12. COVID-19 testing negative. Patient has been hospitalized during a pandemic. DISCHARGE PLAN Return home, inpatient rehab or subacute rehab. Social work is following. Impression and plan of care have been directed as dictated by the signing physician. Marybel Santoro nurse practitioner acting as scribe for signing physician. Objective - Vital Signs Vital signs: Vital Signs Temp 97.5 F L 09/22/20 11:45 Pulse 75 09/22/20 11:45 Resp 18 09/22/20 11:45 BP 155/96 09/22/20 11:45 Pulse Ox 99 09/22/20 11:45 Intake & Output 09/21/20 09/22/20 09/22/20 18:59 06:59 18:59 Intake Total 286 1650 240 Output Total 600 800 Balance -314 850 240 Weight 71 kg Intake: IV 286 0.9NS Flush 178 ns 108 Oral 1650 240 Output: Urine 600 800 Other: Voiding Method Indwelling Catheter Indwelling Catheter Indwelling Catheter # Bowel Movements 1 ABP, PAP, CO, CI - Last Documented Arterial Blood Pressure 142/74 - Labs CBC & Chem 7: 09/21/20 03:15 09/21/20 03:15 Labs: Abnormal Lab Results - Last 24 Hours (Table) 09/21/20 09/21/20 09/21/20 Range/Units 13:43 17:23 20:40 POC Glucose (mg/dL) 152 H 130 H 165 H (75-99) mg/dL 09/22/20 09/22/20 Range/Units 06:19 11:50 POC Glucose (mg/dL) 144 H 120 H (75-99) mg/dL
--- NOTE | 2020-09-23 13:45 | P.PN ---
Subjective Progress Note Date: 09/23/20 HISTORY OF PRESENT ILLNESS This is a 60-year-old male patient of Dr. Granger past medical history of COPD, tobacco use and dependence, chronic marijuana use, chronic neck and back pain, recurrent depression and generalized anxiety, benign prostatic hypertrophy. Patient was seen in the emergency center on September 14 with complaints of difficulty breathing. His chest x-ray showed chronic changes without acute pulmonary process. He was given nebulizer treatment and Solu- Medrol 125 mg IV 1, stabilized and discharged home. He returned to the emergency center on September 15 with worsening shortness of breath and mental status changes. He was found to be afebrile, heart rate 101, respiratory rate 27, pulse ox 98%, blood pressure initially 180/83, subsequently 103/87. WBC 36.6, hemoglobin 15.2 and platelet count 278. Electrolytes normal. BUN 21 creatinine 1.28. Blood sugar 143. D-dimer 2.03. Calcium 10.3. Magnesium 2.0. Blood sugar 143. Total bilirubin 1.1, AST 84, ALT 21, alkaline phosphatase 118. Lactic acid 7.2. Troponin negative. ProBNP 1830. Urinalysis showed moderate blood. Coronavirus PCR not detected. EKG was a sinus rhythm with no acute ST changes. CT angiogram of the chest revealed no pulmonary and is on. Extensive patchy airspace disease throughout the lungs bilaterally may represent inflammatory process including Covid 19. Chest x-ray reveals extensive bilateral airspace disease predominantly in the mid and lower lungs since prior. Echocardiogram reveals EF of 40-45% with borderline concentric left regular hypertrophy, mild tricuspid regurgitation. Abdominal x-ray showed overall nonobstructive bowel gas pattern. He has been started on IV Lasix 40 mg every 12 hours, DuoNeb treatments, Solu-Medrol 60 mg IV every 6 hours, Zosyn, vancomycin. 09/16 patient remains intubated on 50 of FIP PEEP of 10 respiratory rate 20 a ssist-control. Vitals reviewed status temp of 99.2 pulse 56 respiratory rate 23 blood pressure 107/62 oxygen saturation 94% on 50% FiO2. Chest x-ray suggestive of progressive diffuse airspace infiltrates. Patient's leukocytosis has slightly improved since yesterday to 20. ABG this morning suggest a pH of 7.4 pCO2 42 pO2 of 72 and BNP suggestive, BUN 33 creatinine 1.3 glucose 121. Patient had a -3 L output yesterday. Echo obtained suggest EF of 40-45% with hypokinesis of the lateral wall of ventricle. Inflammation markers elevated including pro-calcitonin. Chest x-ray concerning for bilateral infiltrates with possibility of flash pulmonary edema versus aspiration pneumonia. Continue antibiotics including vancomycin, Zosyn and levofloxacin. Legionella and Mycoplasma ordered. COVID-19 negative twice. UDS positive for opiates and marijuana. Blood cultures have been negative. Hold vancomycin. Sputum cultures. Lasix increased to 40 3 times a day. 09/17 patient examined bedside. Patient's at bedside. Patient remains intubated on 45% FiO2 and PEEP of 8 respiratory rate 20 and tidal volume 400 assist-control. Patient's blood gas this morning shows a pO2 of 129 pCO2 51. 7.38. Continuous remain on propofol and fentanyl infusion. Patient's chest x- ray this morning shows slight improvement in his diffuse airspace infiltrate. Patient remains on Zosyn and Lasix. Lasix was reduced from 3 times a day to once a day to prevent kidney damage. Patient has been diuresing well. Vancomycin was discontinued yesterday. Patient has a positive fluid balance over the last 24 hours. He remains in sinus rhythm. No requirement of pressors. CBC has improved to 7 from 16. An assessment of patient's lab patient does have a leukocytosis of 12.7 which is improved from 20 BUN has increased from 33 to 50 creatinine increased from 1.3 to 1.49. Glucose of 179 calcium 7.8. Legionella is negative, mycoplasma IgM is negative. Continuing denies antibiotics.Zosyn. We'll place patient on insulin sliding scale. Vent management per pulmonary. 09/18: Patient examined at bedside. Remained intubated on 45% FiO2 and a PEEP of 8 respirations 20 and a tidal volume 400 with assist-control. Attempt to wean patient today will be started. Patient remains on propofol and fentanyl infusion. Patient remains on Zosyn and Lasix. He is diuresing well. Patient remains in sinus rhythm with no requirement of pressors. 09/19: Patient examined at the bedside remain intubated on 45% FiO2 and a PEEP of 8 respirations 20. Yesterday he was tempted to wean patient when the sedation was decreased patient's pressure elevated. Attempt to wean will be done again today with a CPAP trial is able to tolerate. Patient remains on propofol and fentanyl infusion at this time. Chest x-ray shows no evidence of pneumothorax or pleural effusion. Prominent of interstitium present bilaterally. Patchy density is seen again. It is similar to the prior exam. CBC 9.5, hemoglobin 13.7, calcium 3.9, BUN 48, creatinine 0.95. 09/20: Patient is remain on mechanical ventilation try to extubate patient is still on fentanyl IV along with propofol, try to wean him off gradually and prepare for extubation. Chest x-ray showed persistent right greater than left basilar opacity mostly pneumonia and he still been treated for gram-negative pneumonia with Zosyn, patient still been treated for COPD as well with Solu- Medrol, spit leave out, DuoNeb, Pulmicort. 09/21: Patient remains in the ICU, he was able to be successfully extubated yesterday. He is awake and alert, pulse ox of 96% on 4 L nasal cannula. He did have a short run of atrial fibrillation with RVR and started on a Cardizem drip and has now converted back to normal sinus rhythm. Repeat chest x-ray showed improving patchy basilar infiltrates with mild residual noted in the mild discoid atelectasis in the left lung base. He continues to be treated for pneumonia with Zosyn steroids and updrafts. 09/22: Patient states that he is feeling a lot better today. Patient does have home oxygen therapy. He is seen today sitting in recliner and appears to be comfortable at rest. Pulse ox is 99% on 2 L nasal cannula. He's been afebrile, heart rate 69, blood pressure 160/82. Sugars are running between 119 and 165. No other lab work done this morning. Sputum culture is showing Nilda. Chest x-ray reveals continued improved aeration right lung base. Stable left basilar atelectasis and/or infiltrate from one day earlier. No new infiltrate. Patient remains with Brand catheter in place with good urine output. We'll plan to discontinue Brand today and try to increase activity. Patient is reaching 750 ML's on incentive spirometry. 09/23; patient is now on room air with pulse ox of 98%. He's been afebrile, hear t rate 70, blood pressure 143/82. Pulse ox 99% on 2 L followed by 99% on room air. IV Solu-Medrol changed to oral Medrol dose pack per pulmonary medicine. Patient's breathing status is significantly improved. Patient is doing poorly with physical therapy. Recommendations are for subacute rehab. Family plan for patient to return home as they do have family members to be in attendance. Patient normally has low functioning level at home. pay station department manager is following for DME needs. Anticipate probable discharge home tomorrow REVIEW OF SYSTEMS Constitutional: No fever, no chills, no night sweats. No weight change. No weakness, fatigue or lethargy. No daytime sleepiness. EENT: No headache. No blurred vision or double vision, no loss of vision. No loss of Hearing, no ringing in the ears, no dizziness. No nasal drainage or congestion. No epistaxis. No sore throat. Lungs: Reports shortness of breath improving, cough, no sputum production. No wheezing. Cardiovascular: No chest pain, no lower extremity edema. No palpitations. No paroxysmal nocturnal dyspnea. No orthopnea. No lightheadedness or dizziness. No syncopal episodes. Abdominal: No abdominal pain. No nausea, vomiting. No diarrhea. No constipation. No bloody or tarry stools. No loss of appetite. Genitourinary: No dysuria, increased frequency, urgency. No urinary retention. Musculoskeletal: No myalgias. No muscle weakness, no gait dysfunction, no frequent falls. No back pain. No neck pain. Integumentary: No wounds, no lesions. No rash or pruritus. No unusual bruising. No change in hair or nails. Neurologic: No aphasia. No facial droop. No change in mentation. No head injury. No headache. No paralysis. No paresthesia. Psychiatric: No depression. No anxiety. Endocrine: Noted abnormal blood sugars. PHYSICAL EXAMINATION Gen: This is a thin 60-year-old male. He is resting in recliner appears to be comfortable at rest. No acute respiratory distress noted. HEENT: Head is atraumatic, normocephalic. Pupils equal, round. Sclerae is anicteric. NECK: Supple. No JVD. No lymphadenopathy. No thyromegaly. LUNGS: Few scattered rhonchi. No intercostal retractions. HEART: Regular rate and rhythm. No murmur. ABDOMEN: Soft. Bowel sounds are present. No masses. No tenderness. EXTREMITIES: No pedal edema. No calf tenderness. NEUROLOGICAL: Patient is awake, alert and oriented x3. Cranial nerves 2 through 12 are grossly intact. ASSESSMENT AND PLAN 1. Acute hypoxic respiratory failure secondary to aspiration pneumonia and pulmonary edema and acute systolic heart failure. Continue albuterol inhaler 4 times daily and as needed, DuoNeb treatment every 2 hours as needed, Augmentin, Medrol Dosepak. Pulmonary medicine consult appreciated. Patient is off Lasix. 2. Metabolic encephalopathy secondary to sepsis and aspiration pneumonia. 3. Chronic pain syndrome. Has been on fentanyl drip which will be switched to morphine. 4. Tobacco use and dependence. Hold Nicotine patch. 5. Marijuana use. 6. Recurrent depression and generalized anxiety disorder. Hold citalopram 40 mg daily. 7. Benign prostatic hypertrophy. Patient is normally on Flomax 0.4 mg daily. 8. hyperglycemia on steroids we will initiate insulin sliding scale 9. GI prophylaxis. Protonix 40 mg oral daily. 10. DVT prophylaxis. Lovenox 40 mg subcu daily. 11. Chronic hypoxic respiratory failure on home O2. 12. COVID-19 testing negative. Patient has been hospitalized during a pandemic. DISCHARGE PLAN Home on Sunday with homecare. Impression and plan of care have been directed as dictated by the signing physician. Marybel Santoro nurse practitioner acting as scribe for signing physician. Objective - Vital Signs Vital signs: Vital Signs Temp 97.6 F 09/23/20 08:10 Pulse 70 09/23/20 08:10 Resp 14 09/23/20 08:10 BP 143/82 09/23/20 08:10 Pulse Ox 99 09/23/20 08:10 Intake & Output 09/22/20 09/23/20 09/23/20 18:59 06:59 18:59 Intake Total 740 240 Output Total 475 425 100 Balance 265 -425 140 Weight 68 kg 68 kg Intake: IV 20 ns 20 Oral 720 240 Output: Urine 475 425 100 Other: Voiding Method Indwelling Catheter Urinal Urinal # Voids 1 ABP, PAP, CO, CI - Last Documented Arterial Blood Pressure 142/74 - Labs CBC & Chem 7: 09/21/20 03:15 09/21/20 03:15 Labs: Abnormal Lab Results - Last 24 Hours (Table) 09/22/20 09/22/20 09/22/20 Range/Units 11:50 16:37 20:17 POC Glucose (mg/dL) 120 H 119 H 130 H (75-99) mg/dL 09/23/20 Range/Units 05:47 POC Glucose (mg/dL) 113 H (75-99) mg/dL
[2020-09-23] MEDS: ACETAMINOPHEN TAB 325 MG TAB PO PRN ×2 (16:36→20:34)
[2020-09-23 16:45] LABS: Glucose,Whole Blood 103 mg/dL (75-99)
[2020-09-23 19:56] LABS: Glucose,Whole Blood 107 mg/dL (75-99)
[2020-09-24 05:58] LABS: Glucose,Whole Blood 92 mg/dL (75-99)
[2020-09-24] MEDS: INSULIN ASPART (NovoLOG) 100 UNIT/ML VIAL SQ SCH (06:02)
[2020-09-24] MEDS: PANTOPRAZOLE 40 MG TABLET PO SCH (06:23)
[2020-09-24 07:37] VITALS: BP 133/77; PULSE 76; RESP 22; TEMP 97.6
[2020-09-24] MEDS: TIOTROPIUM 2.5 MCG INHALER INHALATION SCH (08:07)
[2020-09-24] MEDS: ALBUTEROL HFA INHALER INHALATION SCH (08:07)
[2020-09-24] MEDS: CITALOPRAM HYDROBROMIDE 20 MG TAB PO SCH (08:26)
[2020-09-24] MEDS: BACLOFEN 10 MG TAB PO SCH (08:26)
[2020-09-24] MEDS: AMOXIC-POT CLAV 875-125MG 1 EACH TAB PO SCH (08:26)
[2020-09-24] MEDS: ENOXAPARIN 40 MG/0.4 ML SYRINGE SQ SCH (08:27)
[2020-09-24] MEDS: FAMOTIDINE 20 MG TAB PO SCH (08:27)
[2020-09-24] MEDS ORDERED: methylPREDNISolone 4 MG TAB TAPER PO SCH (09:00)
--- NOTE | 2020-09-24 10:55 | P.DS ---
Providers Date of admission: 09/15/20 04:49 Expected date of discharge: 09/24/20 Attending physician: Bradley Love Consults: 09/15/20 04:49 Consult Physician Stat Consulting Provider: Joshua Mas Reason/Comments: Acute respiratory failure Do you want consulting provider notified?: Already Contacted Primary care physician: Joseph Granger MD Hospital Course: HISTORY OF PRESENT ILLNESS This is a 60-year-old male patient of Dr. Granger past medical history of COPD, tobacco use and dependence, chronic marijuana use, chronic neck and brittnee k pain, recurrent depression and generalized anxiety, benign prostatic hypertrophy. Patient was seen in the emergency center on September 14 with complaints of difficulty breathing. His chest x-ray showed chronic changes without acute pulmonary process. He was given nebulizer treatment and Solu- Medrol 125 mg IV 1, stabilized and discharged home. He returned to the emergency center on September 15 with worsening shortness of breath and mental status changes. He was found to be afebrile, heart rate 101, respiratory rate 27, pulse ox 98%, blood pressure initially 180/83, subsequently 103/87. WBC 3 6.6, hemoglobin 15.2 and platelet count 278. Electrolytes normal. BUN 21 creatinine 1.28. Blood sugar 143. D-dimer 2.03. Calcium 10.3. Magnesium 2.0. Blood sugar 143. Total bilirubin 1.1, AST 84, ALT 21, alkaline phosphatase 118. Lactic acid 7.2. Troponin negative. ProBNP 1830. Urinalysis showed moderate blood. Coronavirus PCR not detected. EKG was a sinus rhythm with no acute ST changes. CT angiogram of the chest revealed no pulmonary and is on. Extensive patchy airspace disease throughout the lungs bilaterally may represent inflammatory process including Covid 19. Chest x-ray reveals extensive bilateral airspace disease predominantly in the mid and lower lungs since prior. Echocardiogram reveals EF of 40-45% with borderline concentric left regular hypertrophy, mild tricuspid regurgitation. Abdominal x-ray showed overall nonobstructive bowel gas pattern. He has been started on IV Lasix 40 mg every 12 hours, DuoNeb treatments, Solu-Medrol 60 mg IV every 6 hours, Zosyn, vancomycin. 09/16 patient remains intubated on 50 of FIP PEEP of 10 respiratory rate 20 assist-control. Vitals reviewed status temp of 99.2 pulse 56 respiratory rate 23 blood pressure 107/62 oxygen saturation 94% on 50% FiO2. Chest x-ray suggestive of progressive diffuse airspace infiltrates. Patient's leukocytosis has slightly improved since yesterday to 20. ABG this morning suggest a pH of 7.4 pCO2 42 pO2 of 72 and BNP suggestive, BUN 33 creatinine 1.3 glucose 121. Patient had a -3 L output yesterday. Echo obtained suggest EF of 40-45% with hypokinesis of the lateral wall of ventricle. Inflammation markers elevated including pro-calcitonin. Chest x-ray concerning for bilateral infiltrates with possibility of flash pulmonary edema versus aspiration pneumonia. Continue antibiotics including vancomycin, Zosyn and levofloxacin. Legionella and Mycoplasma ordered. COVID-19 negative twice. UDS positive for opiates and marijuana. Blood cultures have been negative. Hold vancomycin. Sputum cultures. Lasix increased to 40 3 times a day. 09/17 patient examined bedside. Patient's at bedside. Patient remains intubated on 45% FiO2 and PEEP of 8 respiratory rate 20 and tidal volume 400 assist-control. Patient's blood gas this morning shows a pO2 of 129 pCO2 51. 7.38. Continuous remain on propofol and fentanyl infusion. Patient's chest x- ray this morning shows slight improvement in his diffuse airspace infiltrate. Patient remains on Zosyn and Lasix. Lasix was reduced from 3 times a day to once a day to prevent kidney damage. Patient has been diuresing well. Vancomycin was discontinued yesterday. Patient has a positive fluid balance over the last 24 hours. He remains in sinus rhythm. No requirement of pressors. CBC has improved to 7 from 16. An assessment of patient's lab patient does have a leukocytosis of 12.7 which is improved from 20 BUN has increased from 33 to 50 creatinine increased from 1.3 to 1.49. Glucose of 179 calcium 7.8. Legionella is negative, mycoplasma IgM is negative. Continuing denies antibiotics.Zosyn. We'll place patient on insulin sliding scale. Vent management per pulmonary. 09/18: Patient examined at bedside. Remained intubated on 45% FiO2 and a PEEP of 8 respirations 20 and a tidal volume 400 with assist-control. Attempt to wean patient today will be started. Patient remains on propofol and fentanyl in fusion. Patient remains on Zosyn and Lasix. He is diuresing well. Patient remains in sinus rhythm with no requirement of pressors. 09/19: Patient examined at the bedside remain intubated on 45% FiO2 and a PEEP of 8 respirations 20. Yesterday he was tempted to wean patient when the sedation was decreased patient's pressure elevated. Attempt to wean will be done again today with a CPAP trial is able to tolerate. Patient remains on propofol and fentanyl infusion at this time. Chest x-ray shows no evidence of pneumothorax or pleural effusion. Prominent of interstitium present bilaterally. Patchy density is seen again. It is similar to the prior exam. CBC 9.5, hemoglobin 13.7, calcium 3.9, BUN 48, creatinine 0.95. 09/20: Patient is remain on mechanical ventilation try to extubate patient is still on fentanyl IV along with propofol, try to wean him off gradually and prepare for extubation. Chest x-ray showed persistent right greater than left basilar opacity mostly pneumonia and he still been treated for gram-negative pneumonia with Zosyn, patient still been treated for COPD as well with Solu- Medrol, spit leave out, DuoNeb, Pulmicort. 09/21: Patient remains in the ICU, he was able to be successfully extubated yesterday. He is awake and alert, pulse ox of 96% on 4 L nasal cannula. He did have a short run of atrial fibrillation with RVR and started on a Cardizem drip and has now converted back to normal sinus rhythm. Repeat chest x-ray showed improving patchy basilar infiltrates with mild residual noted in the mild discoid atelectasis in the left lung base. He continues to be treated for pneumonia with Zosyn steroids and updrafts. 09/22: Patient states that he is feeling a lot better today. Patient does have home oxygen therapy. He is seen today sitting in recliner and appears to be comfortable at rest. Pulse ox is 99% on 2 L nasal cannula. He's been afebrile, heart rate 69, blood pressure 160/82. Sugars are running between 119 and 165. No other lab work done this morning. Sputum culture is showing Nilda. Chest x-ray reveals continued improved aeration right lung base. Stable left basilar atelectasis and/or infiltrate from one day earlier. No new infiltrate. Patient remains with Brand catheter in place with good urine output. We'll plan to discontinue Brand today and try to increase activity. Patient is reaching 750 ML's on incentive spirometry. 09/23: patient is now on room air with pulse ox of 98%. He's been afebrile, heart rate 70, blood pressure 143/82. Pulse ox 99% on 2 L followed by 99% on room air. IV Solu-Medrol changed to oral Medrol dose pack per pulmonary medicine. Patient's breathing status is significantly improved. Patient is doing poorly with physical therapy. Recommendations are for subacute rehab. Family plan for patient to return home as they do have family members to be in attendance. Patient normally has low functioning level at home. computer project manager is following for DME needs. Anticipate probable discharge home tomorrow. 09/24: Denies any new complaints. His breathing status is stable. He agrees to smoking cessation. He does not think he needs nicotine patch at this time. He denies any cough or sputum production. Patient has been afebrile, heart rate 76, blood pressure 133/77, pulse ox 100% on room air. Capillary blood glucose running between 92 and 107. He has been seen by pulmonary medicine and was are switch over to Medrol Dosepak. Patient will be discharged home today in stable condition. ASSESSMENT AND PLAN 1. Acute hypoxic respiratory failure secondary to aspiration pneumonia and pulmonary edema and acute systolic heart failure. 2. Metabolic encephalopathy secondary to sepsis and aspiration pneumonia. 3. Chronic pain syndrome. 4. Tobacco use and dependence. 5. Marijuana use. 6. Recurrent depression and generalized anxiety disorder. 7. Benign prostatic hypertrophy. 8. hyperglycemia secondary to steroids. 9. Chronic hypoxic respiratory failure on home O2. 10. COVID-19 testing negative. Patient has been hospitalized during a pandemic. DISCHARGE PLAN Home on Sunday with [facility]. Impression and plan of care have been directed as dictated by the signing physician. Marybel Santoro nurse practitioner acting as scribe for signing physician. Plan - Discharge Summary New Discharge Prescriptions: New methylPREDNISolone Dose Pack [Medrol Dose Pack] 24 mg PO DAILY #1 pack Pantoprazole [Protonix] 40 mg PO AC-BRKFST #30 tablet.dr Fine-Cathleen Clav 875-125Mg [Augmentin 875-125] 1 each PO Q12HR #10 tab Ipratropium-Albuterol Nebulize [Duoneb 0.5 mg-3 mg/3 ml Soln] 3 ml INHALATION RT-Q2H PRN ml PRN Reason: Shortness Of Breath Or Wheezing Tiotropium 2.5 Mcg/Puff [Spiriva Respimat 2.5 Mcg] 2 puff INHALATION RT-DAILY puff Continue Baclofen [Lioresal] 20 mg PO TID Citalopram Hydrobromide [CeleXA] 40 mg PO DAILY Tamsulosin [Flomax] 0.4 mg PO DAILY HYDROcodone/APAP 5-325MG [[place] 5-325] 1 tab PO TID PRN PRN Reason: Pain Albuterol Sulfate [Proair Hfa] 1 - 2 puff INHALATION RT-Q6H PRN PRN Reason: Shortness Of Breath Discontinued predniSONE 50 mg PO DAILY #5 tablet Discharge Medication List Baclofen [Lioresal] 20 mg PO TID 01/14/20 [History] Citalopram Hydrobromide [CeleXA] 40 mg PO DAILY 01/14/20 [History] HYDROcodone/APAP 5-325MG [[place] 5-325] 1 tab PO TID PRN 04/13/20 [History] Tamsulosin [Flomax] 0.4 mg PO DAILY 04/13/20 [History] Albuterol Sulfate [Proair Hfa] 1 - 2 puff INHALATION RT-Q6H PRN 09/15/20 [History] Amoxic-Pot Clav 875-125Mg [Augmentin 875-125] 1 each PO Q12HR #10 tab 09/24/20 [Rx] Ipratropium-Albuterol Nebulize [Duoneb 0.5 mg-3 mg/3 ml Soln] 3 ml INHALATION RT-Q2H PRN ml 09/24/20 [Rx] Pantoprazole [Protonix] 40 mg PO AC-BRKFST #30 tablet. 09/24/20 [Rx] Tiotropium 2.5 Mcg/Puff [Spiriva Respimat 2.5 Mcg] 2 puff INHALATION RT-DAILY puff 09/24/20 [Rx] methylPREDNISolone Dose Pack [Medrol Dose Pack] 24 mg PO DAILY #1 pack 09/24/20 [Rx] Follow up Appointment(s)/Referral(s): [facility], [NON-STAFF] - None,Stated [REFERRING] - 1-2 days Patient Instructions/Handouts: How to Stop Smoking (DC), Acute Respiratory Failure (GEN) Activity/Diet/Wound Care/Special Instructions: Patient requires a wheelchair at time of discharge to complete ADLs which he cannot due with a cane or walker because of weakness due to unsteady gait, COPD, & CHF. Patient cannot self propel and will have a caregiver at home that will be able to propel him. Patient needs a bedside commode because he is room confined due to weakness from unsteady gait, COPD, and CHF. Discharge Disposition: HOME WITH HOME HEALTH SERVICES
== END 2020-09-24 11:59 | disposition home health service (06) | DRG 870 ==
LOC: EC 01:34 → SUPCPDRO 01:34 → 2SICU 04:49 → 3SCARD 09-21 19:09
PROVIDERS: ADMIT Internal Medicine Geriatric Medicine; ATTEND Internal Medicine Geriatric Medicine
PROC: 5A1955Z Respiratory Ventilation, Greater than 96 Consecutive Hours (ICD-10-PCS; principal; 2020-09-15)
PROC: 0BH17EZ Insertion of Endotracheal Airway into Trachea, Via Natural or Artificial Opening (ICD-10-PCS; principal; 2020-09-15)
PROC: 4A133B1 Monitoring of Arterial Pressure, Peripheral, Percutaneous Approach (ICD-10-PCS; 2020-09-16)
PROC: 03HY32Z Insertion of Monitoring Device into Upper Artery, Percutaneous Approach (ICD-10-PCS; 2020-09-16)
PROC: 4A133J1 Monitoring of Arterial Pulse, Peripheral, Percutaneous Approach (ICD-10-PCS; 2020-09-16)
PROC: 02HV33Z Insertion of Infusion Device into Superior Vena Cava, Percutaneous Approach (ICD-10-PCS; 2020-09-16)
DX: A41.50 Gram-negative sepsis, unspecified (principal); G93.41 Metabolic encephalopathy; I50.23 Acute on chronic systolic (congestive) heart failure; J15.6 Pneumonia due to other Gram-negative bacteria; J69.0 Pneumonitis due to inhalation of food and vomit; J96.21 Acute and chronic respiratory failure with hypoxia; E87.0 Hyperosmolality and hypernatremia; E87.4 Mixed disorder of acid-base balance; F33.9 Major depressive disorder, recurrent, unspecified; I42.9 Cardiomyopathy, unspecified; G93.49 Other encephalopathy; J44.0 Chronic obstructive pulmonary disease with (acute) lower respiratory infection; J44.1 Chronic obstructive pulmonary disease with (acute) exacerbation; J98.11 Atelectasis; I11.0 Hypertensive heart disease with heart failure; Z20.822 Contact with and (suspected) exposure to COVID-19; R65.20 Severe sepsis without septic shock; F12.10 Cannabis abuse, uncomplicated; F17.210 Nicotine dependence, cigarettes, uncomplicated; F41.1 Generalized anxiety disorder; G89.4 Chronic pain syndrome; I48.91 Unspecified atrial fibrillation; N40.0 Benign prostatic hyperplasia without lower urinary tract symptoms; Z82.49 Family history of ischemic heart disease and other diseases of the circulatory system; M54.9 Dorsalgia, unspecified; R45.1 Restlessness and agitation; R73.9 Hyperglycemia, unspecified; T38.0X5A Adverse effect of glucocorticoids and synthetic analogues, initial encounter; T50.2X5A Adverse effect of carbonic-anhydrase inhibitors, benzothiadiazides and other diuretics, initial encounter; Z79.899 Other long term (current) drug therapy; Z87.01 Personal history of pneumonia (recurrent); Z98.1 Arthrodesis status
CPT/HCPCS: 36415; 36600; 71045; 71046; 71275; 74018; 80048; 80053; 80306; 81001; 82728; 82805; 83605; 83615; 83735; 83880; 84132; 84145; 84484; 85025; 85379; 85610; 85730; 86140; 86738; 86769; 87040; 87070; 87205; 87449; 87635; 93005; 93306; 94002; 94003; 94640; 96365; 96366; 96368; 96374; 96375; 99285

== ENCOUNTER 2021-04-25 08:58 | Emergency (ER) | payer OTHER ==
[2021-04-25 09:27] VITALS: TEMP 99.1
--- NOTE | 2021-04-25 10:21 | ED ---
General Adult HPI - General Chief complaint: Shortness of Breath Stated complaint: SOB Time Seen by Provider: 04/25/21 09:38 Source: patient, RN notes reviewed Mode of arrival: ambulatory Limitations: no limitations - History of Present Illness Initial comments: This a 61-year-old male presents emergency Department chief complaint of shortness of breath. Patient states that his Cough congestion symptoms for last couple days. Patient does have COPD, is a smoker. Patient reports no chills, no reported fever. Patient was seen here several months ago and had aspiration pneumonia was intubated. Patient denies any leg pain or leg swelling noted vomi ting or diarrhea. - Related Data Home Medications Medication Instructions Recorded Confirmed Baclofen [Lioresal] 20 mg PO TID 01/14/20 04/25/21 Citalopram Hydrobromide [CeleXA] 40 mg PO DAILY 01/14/20 04/25/21 Albuterol Sulfate [Proair Hfa] 1 - 2 puff INHALATION RT-Q6H PRN 09/15/20 04/25/21 Furosemide [Lasix] 20 mg PO DAILY 04/25/21 04/25/21 HYDROcodone/APAP 7.5-325MG [[place] 1 tab PO BID PRN 04/25/21 04/25/21 7.5-325] Previous Rx's Medication Instructions Recorded Pantoprazole [Protonix] 40 mg PO AC-BRKFST #30 tablet. 09/24/20 Tiotropium 2.5 Mcg/Puff [Spiriva 2 puff INHALATION RT-DAILY puff 09/24/20 Respimat 2.5 Mcg] Azithromycin [Zithromax Z-pack (6 0 mg PO DIRECTED #1 packet 04/25/21 tabs)] predniSONE 50 mg PO DAILY #5 tab 04/25/21 Allergies Allergy/AdvReac Type Severity Reaction Status Date / Time potassium chloride Allergy Swelling Verified 04/25/21 11:14 [From [place]] Review of Systems ROS Statement: Those systems with pertinent positive or pertinent negative responses have been documented in the HPI. ROS Other: All systems not noted in ROS Statement are negative. Past Medical History Past Medical History: Pneumonia Additional Past Medical History / Comment(s): back pain History of Any Multi-Drug Resistant Organisms: None Reported Past Surgical History: Back Surgery Additional Past Surgical History / Comment(s): neck fusion,rt eye surgery, rt hand surgery Past Anesthesia/Blood Transfusion Reactions: No Reported Reaction Past Psychological History: Depression Smoking Status: Current every day smoker Past Alcohol Use History: Occasional Past Drug Use History: Marijuana - Past Family History Mother History Unknown: Yes Family Medical History: Myocardial Infarction ([place]) Additional Family Medical History / Comment(s): from [place] General Exam Limitations: no limitations General appearance: alert, in no apparent distress Head exam: Present: atraumatic, normocephalic, normal inspection Eye exam: Present: normal appearance, PERRL, EOMI. Absent: scleral icterus, conjunctival injection, periorbital swelling ENT exam: Present: normal exam, normal oropharynx, mucous membranes moist Neck exam: Present: normal inspection, full ROM. Absent: tenderness, meningismus, lymphadenopathy Respiratory exam: Present: normal lung sounds bilaterally. Absent: respiratory distress, wheezes, rales, rhonchi, stridor Cardiovascular Exam: Present: regular rate, normal rhythm, normal heart sounds. Absent: systolic murmur, diastolic murmur, rubs, gallop, clicks GI/Abdominal exam: Present: soft, normal bowel sounds. Absent: distended, tenderness, guarding, rebound, rigid Course Vital Signs 04/25/21 04/25/21 09:24 09:49 Temperature 99.1 F Pulse Rate 93 Respiratory 18 24 Rate Blood Pressure 141/82 O2 Sat by Pulse 97 Oximetry Medical Decision Making - Medical Decision Making Chest x-ray shows evidence of atypical pneumonia versus early fluid overload. BMP is minimally elevated and lower than prior. Patient's had some recent issues with his COPD in which she's been intubated. Lab work otherwise unremarkable. I did review the patient current findings and my concerns I recommended patient to be admitted for close observation secondary to rapid decline in the past with multiple intubations. Patient refuses to stay patient is in the room with family member who agrees is at his baseline, can make his own decisions he understands that we can risk of leaving at this time and states return if any worsening symptoms. - Lab Data Result diagrams: 04/25/21 10:02 04/25/21 10:02 Lab Results 04/25/21 04/25/21 04/25/21 Range/Units 09:27 10:02 10:02 WBC 11.4 H (3.8-10.6) k/uL RBC 4.46 (4.30-5.90) m/uL Hgb 13.3 (13.0-17.5) gm/dL Hct 37.6 L (39.0-53.0) % MCV 84.3 (80.0-100.0) fL MCH 29.7 (25.0-35.0) pg MCHC 35.3 (31.0-37.0) g/dL RDW 13.3 (11.5-15.5) % Plt Count 198 (150-450) k/uL MPV 8.6 Neutrophils % 84 % Lymphocytes % 9 % Monocytes % 6 % Eosinophils % 1 % Basophils % 0 % Neutrophils # 9.6 H (1.3-7.7) k/uL Lymphocytes # 1.0 (1.0-4.8) k/uL Monocytes # 0.7 (0-1.0) k/uL Eosinophils # 0.1 (0-0.7) k/uL Basophils # 0.0 (0-0.2) k/uL PT 9.8 (9.0-12.0) sec INR 0.9 (<1.2) APTT 26.6 (22.0-30.0) sec D-Dimer 0.23 (<0.60) mg/L FEU Sodium (137-145) mmol/L Potassium (3.5-5.1) mmol/L Chloride (98-107) mmol/L Carbon Dioxide (22-30) mmol/L Anion Gap mmol/L BUN (9-20) mg/dL Creatinine (0.66-1.25) mg/dL Est GFR (CKD-EPI)AfAm (>60 ml/min/1.73 sqM) Est GFR (CKD-EPI)NonAf (>60 ml/min/1.73 sqM) Glucose (74-99) mg/dL Plasma Lactic Acid Pierre (0.7-2.0) mmol/L Calcium (8.4-10.2) mg/dL Magnesium (1.6-2.3) mg/dL Total Bilirubin (0.2-1.3) mg/dL AST (17-59) U/L ALT (4-49) U/L Alkaline Phosphatase (38-126) U/L Troponin I (0.000-0.034) ng/mL NT-Pro-B Natriuret Pep pg/mL Total Protein (6.3-8.2) g/dL Albumin (3.5-5.0) g/dL Coronavirus (PCR) Not Detected (Not Detectd) 04/25/21 04/25/21 04/25/21 Range/Units 10:02 10:02 10:02 WBC (3.8-10.6) k/uL RBC (4.30-5.90) m/uL Hgb (13.0-17.5) gm/dL Hct (39.0-53.0) % MCV (80.0-100.0) fL MCH (25.0-35.0) pg MCHC (31.0-37.0) g/dL RDW (11.5-15.5) % Plt Count (150-450) k/uL MPV Neutrophils % % Lymphocytes % % Monocytes % % Eosinophils % % Basophils % % Neutrophils # (1.3-7.7) k/uL Lymphocytes # (1.0-4.8) k/uL Monocytes # (0-1.0) k/uL Eosinophils # (0-0.7) k/uL Basophils # (0-0.2) k/uL PT (9.0-12.0) sec INR (<1.2) APTT (22.0-30.0) sec D-Dimer (<0.60) mg/L FEU Sodium 136 L (137-145) mmol/L Potassium 3.2 L (3.5-5.1) mmol/L Chloride 105 (98-107) mmol/L Carbon Dioxide 21 L (22-30) mmol/L Anion Gap 10 mmol/L BUN 13 (9-20) mg/dL Creatinine 1.02 (0.66-1.25) mg/dL Est GFR (CKD-EPI)AfAm >90 (>60 ml/min/1.73 sqM) Est GFR (CKD-EPI)NonAf 80 (>60 ml/min/1.73 sqM) Glucose 103 H (74-99) mg/dL Plasma Lactic Acid Pierre (0.7-2.0) mmol/L Calcium 9.2 (8.4-10.2) mg/dL Magnesium 1.8 (1.6-2.3) mg/dL Total Bilirubin 0.7 (0.2-1.3) mg/dL AST 24 (17-59) U/L ALT 14 (4-49) U/L Alkaline Phosphatase 92 (38-126) U/L Troponin I <0.012 (0.000-0.034) ng/mL NT-Pro-B Natriuret Pep 1060 pg/mL Total Protein 7.1 (6.3-8.2) g/dL Albumin 4.2 (3.5-5.0) g/dL Coronavirus (PCR) (Not Detectd) 04/25/21 Range/Units 10:03 WBC (3.8-10.6) k/uL RBC (4.30-5.90) m/uL Hgb (13.0-17.5) gm/dL Hct (39.0-53.0) % MCV (80.0-100.0) fL MCH (25.0-35.0) pg MCHC (31.0-37.0) g/dL RDW (11.5-15.5) % Plt Count (150-450) k/uL MPV Neutrophils % % Lymphocytes % % Monocytes % % Eosinophils % % Basophils % % Neutrophils # (1.3-7.7) k/uL Lymphocytes # (1.0-4.8) k/uL Monocytes # (0-1.0) k/uL Eosinophils # (0-0.7) k/uL Basophils # (0-0.2) k/uL PT (9.0-12.0) sec INR (<1.2) APTT (22.0-30.0) sec D-Dimer (<0.60) mg/L FEU Sodium (137-145) mmol/L Potassium (3.5-5.1) mmol/L Chloride (98-107) mmol/L Carbon Dioxide (22-30) mmol/L Anion Gap mmol/L BUN (9-20) mg/dL Creatinine (0.66-1.25) mg/dL Est GFR (CKD-EPI)AfAm (>60 ml/min/1.73 sqM) Est GFR (CKD-EPI)NonAf (>60 ml/min/1.73 sqM) Glucose (74-99) mg/dL Plasma Lactic Acid Pierre 1.4 (0.7-2.0) mmol/L Calcium (8.4-10.2) mg/dL Magnesium (1.6-2.3) mg/dL Total Bilirubin (0.2-1.3) mg/dL AST (17-59) U/L ALT (4-49) U/L Alkaline Phosphatase (38-126) U/L Troponin I (0.000-0.034) ng/mL NT-Pro-B Natriuret Pep pg/mL Total Protein (6.3-8.2) g/dL Albumin (3.5-5.0) g/dL Coronavirus (PCR) (Not Detectd) Disposition Clinical Impression: Atypical pneumonia Disposition: HOME SELF-CARE Condition: Stable Instructions (If sedation given, give patient instructions): Pneumonia (ED) Additional Instructions: Please return to the Emergency Department if symptoms worsen or any other concerns. Prescriptions: predniSONE 50 mg PO DAILY #5 tab Azithromycin [Zithromax Z-pack (6 tabs)] 0 mg PO DIRECTED #1 packet Is patient prescribed a controlled substance at d/c from ED?: No Referrals: Joseph Granger MD [Primary Care Provider] - 1-2 days Time of Disposition: 12:23
--- NOTE | 2021-04-25 10:25 | XR ---
EXAMINATION TYPE: XR chest 2V DATE OF EXAM: 04/25/2021 COMPARISON: 09/22/2020 INDICATION: Difficulty breathing and short of breath cough TECHNIQUE: Frontal and lateral views of the chest are obtained. FINDINGS: The heart size is normal. The pulmonary vasculature is prominent. Mild diffuse increased lung markings are present, findings are nonspecific. Consider atypical pneumon ia and early volume overload.. IMPRESSION: 1. Mild diffuse increased lung markings with slight prominence of the pulmonary vascular markings. Co rrelate for early volume overload and atypical pneumonia.
[2021-04-25 10:33] LABS: ALT 14 U/L (4-49); AST 24 U/L (17-59); African American GFR (CKD) >90 (>60 ml/min/1.73 sqM); Albumin 4.2 g/dL (3.5-5.0); Alkaline Phosphatase 92 U/L (38-126); Anion Gap 10 mmol/L; Blood Urea Nitrogen 13 mg/dL (9-20); Calcium 9.2 mg/dL (8.4-10.2); Carbon Dioxide 21 mmol/L (22-30); Chloride 105 mmol/L (98-107); Glucose 103 mg/dL (74-99); Magnesium 1.8 mg/dL (1.6-2.3); Non-African American GFR(CKD) 80 (>60 ml/min/1.73 sqM); Potassium 3.2 mmol/L (3.5-5.1); Sodium 136 mmol/L (137-145); Total Bilirubin 0.7 mg/dL (0.2-1.3); Total Protein 7.1 g/dL (6.3-8.2)
[2021-04-25 10:39] LABS: INR 0.9 (<1.2); Partial Thromboplastin Time 26.6 sec (22.0-30.0); Prothrombin Time 9.8 sec (9.0-12.0)
[2021-04-25 11:02] LABS: Basophils % (A) 0 %; Eosinophils # (A) 0.1 k/uL (0-0.7); Eosinophils % (A) 1 %; HCT 37.6 % (39.0-53.0); HGB 13.3 gm/dL (13.0-17.5); Lymphocytes % (A) 9 %; MCH 29.7 pg (25.0-35.0); MCHC 35.3 g/dL (31.0-37.0); MCV 84.3 fL (80.0-100.0); Mean Platelet Volume 8.6; Monocytes # (A) 0.7 k/uL (0-1.0); Monocytes % (A) 6 %; Neutrophils # (A) 9.6 k/uL (1.3-7.7); Neutrophils % (A) 84 %; Platelet Count 198 k/uL (150-450); RBC 4.46 m/uL (4.30-5.90); RDW 13.3 % (11.5-15.5); WBC 11.4 k/uL (3.8-10.6)
[2021-04-25] MEDS ORDERED: methylPREDNISolone SOD SUCCI 125 MG/2 ML VIAL IV STA (11:44)
[2021-04-25] MEDS ORDERED: cefTRIAXone IN SWFI 1,000 MG/10 ML SYRINGE IVP STA (11:44)
[2021-04-25] MEDS ORDERED: IPRATROPIUM-ALBUTEROL 3 ML NEB INHALATION STA (11:44)
[2021-04-25 12:37] VITALS: BP 138/95; PULSE 88; RESP 18
== END 2021-04-25 13:29 | disposition home or self-care (01) ==
LOC: EC 08:58
DX: J18.9 Pneumonia, unspecified organism (principal); F17.200 Nicotine dependence, unspecified, uncomplicated; Z88.8 Allergy status to other drugs, medicaments and biological substances
CPT/HCPCS: 36415; 94640; 93005; 85379; 83880; 80053; 83605; 83735; 84484; 85025; 85610; 85730; 87635; 71046; 99285; 96374; 96375; J2930; J0696

== ENCOUNTER 2021-04-25 16:58 | Observation (INO) | payer OTHER ==
--- NOTE | 2021-04-25 20:43 | ED ---
General Adult HPI - General Stated complaint: pneumonia-revisit Time Seen by Provider: 04/25/21 20:41 - History of Present Illness Initial comments: Seen for ATP purposes: 61 year-old male patient presents for evaluation of increased shortness of breath. Patient was seen and evaluated earlier, plan was for admission but he did not want to stay. States he has been sick since last night. Reports cough or shortness of breath. Denies fevers. He is reporting back pain which is chronic. Does have history of COPD with multiple intubations in the past. He does currently smoke cigarettes. - Related Data Home Medications Medication Instructions Recorded Confirmed Baclofen [Lioresal] 20 mg PO TID 01/14/20 04/25/21 Citalopram Hydrobromide [CeleXA] 40 mg PO DAILY 01/14/20 04/25/21 Albuterol Sulfate [Proair Hfa] 1 - 2 puff INHALATION RT-Q6H PRN 09/15/20 04/25/21 Furosemide [Lasix] 20 mg PO DAILY 04/25/21 04/25/21 HYDROcodone/APAP 7.5-325MG [[place] 1 tab PO BID PRN 04/25/21 04/25/21 7.5-325] Previous Rx's Medication Instructions Recorded Pantoprazole [Protonix] 40 mg PO AC-BRKFST #30 tablet. 09/24/20 Tiotropium 2.5 Mcg/Puff [Spiriva 2 puff INHALATION RT-DAILY puff 09/24/20 Respimat 2.5 Mcg] Azithromycin [Zithromax Z-pack (6 0 mg PO DIRECTED #1 packet 04/25/21 tabs)] predniSONE 50 mg PO DAILY #5 tab 04/25/21 Allergies Allergy/AdvReac Type Severity Reaction Status Date / Time potassium chloride Allergy Swelling Verified 04/25/21 20:45 [From Klor-Con] sacubitril [From Entresto] AdvReac Unknown Verified 04/25/21 20:46 valsartan [From Entresto] AdvReac Unknown Verified 04/25/21 20:46 Review of Systems ROS Statement: Those systems with pertinent positive or pertinent negative responses have been documented in the HPI. ROS Other: All systems not noted in ROS Statement are negative. Past Medical History Past Medical History: Pneumonia Additional Past Medical History / Comment(s): back pain History of Any Multi-Drug Resistant Organisms: None Reported Past Surgical History: Back Surgery Additional Past Surgical History / Comment(s): neck fusion,rt eye surgery, rt hand surgery Past Anesthesia/Blood Transfusion Reactions: No Reported Reaction Past Psychological History: Depression Smoking Status: Current every day smoker Past Alcohol Use History: Occasional Past Drug Use History: Marijuana - Past Family History Mother History Unknown: Yes Family Medical History: Myocardial Infarction ([place]) Additional Family Medical History / Comment(s): from [place] General Exam General appearance: alert, in distress (Mild) Respiratory exam: Present: wheezes (Expiratory wheezing right posterior lung field). Absent: respiratory distress, rales, rhonchi, stridor Cardiovascular Exam: Present: regular rate, normal rhythm, normal heart sounds. Absent: systolic murmur, diastolic murmur, rubs, gallop, clicks GI/Abdominal exam: Present: soft, normal bowel sounds. Absent: distended, tenderness, guarding, rebound, rigid Neurological exam: Present: alert, oriented X3, CN II-XII intact Psychiatric exam: Present: normal affect, normal mood Skin exam: Present: warm, dry, intact, normal color. Absent: rash Course Vital Signs 04/25/21 20:42 Temperature 97.6 F Pulse Rate 92 Respiratory 24 Rate Blood Pressure 166/92 O2 Sat by Pulse 99 Oximetry - Reevaluation(s) Reevaluation #1: 04/25/21 23:51 Sepsis diagnosed at 2345. IV fluids initiated. Patient did receive 1G IV rocephin during initial visit earlier in the day. I will give additional 1g now and also azithromycin. BP and HR within normal range. Will give 1500ml bolus and start rate at 130ml/hr. 04/25/21 23:52 Medical Decision Making - Medical Decision Making 61-year-old male patient presented to the emergency department today for increased shortness of breath. He was seen and left AGAINST MEDICAL ADVICE earlier in the day after being diagnosed with atypical pneumonia. Physical examination on arrival revealed clear equal lung sounds. He is reporting back pain however this is chronic for him. He is afebrile, vital signs. Oxygen saturation is normal. Labs were obtained and revealed elevated white blood cell count at 14.8. Lactic acid was elevated at 0.2. He'll be admitted to the hospital with IV fluids, IV antibiotics, and further evaluation and monitoring. He is agreeable this plan. Case discussed with my attending Dr. Cardoza. - Lab Data Result diagrams: 04/25/21 21:12 04/25/21 21:12 Lab Results 04/25/21 04/25/21 04/25/21 Range/Units 21:12 21:12 21:12 WBC 14.8 H (3.8-10.6) k/uL RBC 4.94 (4.30-5.90) m/uL Hgb 14.8 (13.0-17.5) gm/dL Hct 42.4 (39.0-53.0) % MCV 85.9 (80.0-100.0) fL MCH 29.9 (25.0-35.0) pg MCHC 34.9 (31.0-37.0) g/dL RDW 13.4 (11.5-15.5) % Plt Count 212 (150-450) k/uL MPV 9.6 Neutrophils % 93 % Lymphocytes % 2 % Monocytes % 3 % Eosinophils % 2 % Basophils % 0 % Neutrophils # 13.8 H (1.3-7.7) k/uL Lymphocytes # 0.3 L (1.0-4.8) k/uL Monocytes # 0.4 (0-1.0) k/uL Eosinophils # 0.3 (0-0.7) k/uL Basophils # 0.0 (0-0.2) k/uL Manual Slide Review Performed Anisocytosis (manual) Present Sodium 138 (137-145) mmol/L Potassium 3.6 (3.5-5.1) mmol/L Chloride 103 (98-107) mmol/L Carbon Dioxide 23 (22-30) mmol/L Anion Gap 12 mmol/L BUN 14 (9-20) mg/dL Creatinine 0.84 (0.66-1.25) mg/dL Est GFR (CKD-EPI)AfAm >90 (>60 ml/min/1.73 sqM) Est GFR (CKD-EPI)NonAf >90 (>60 ml/min/1.73 sqM) Glucose 172 H (74-99) mg/dL Lactic Ac Sepsis Rflx Plasma Lactic Acid Pierre 3.2 H* (0.7-2.0) mmol/L Calcium 9.6 (8.4-10.2) mg/dL Total Bilirubin 0.6 (0.2-1.3) mg/dL AST 30 (17-59) U/L ALT 18 (4-49) U/L Alkaline Phosphatase 84 (38-126) U/L Total Protein 7.9 (6.3-8.2) g/dL Albumin 4.7 (3.5-5.0) g/dL 04/25/21 Range/Units 21:57 WBC (3.8-10.6) k/uL RBC (4.30-5.90) m/uL Hgb (13.0-17.5) gm/dL Hct (39.0-53.0) % MCV (80.0-100.0) fL MCH (25.0-35.0) pg MCHC (31.0-37.0) g/dL RDW (11.5-15.5) % Plt Count (150-450) k/uL MPV Neutrophils % % Lymphocytes % % Monocytes % % Eosinophils % % Basophils % % Neutrophils # (1.3-7.7) k/uL Lymphocytes # (1.0-4.8) k/uL Monocytes # (0-1.0) k/uL Eosinophils # (0-0.7) k/uL Basophils # (0-0.2) k/uL Manual Slide Review Anisocytosis (manual) Sodium (137-145) mmol/L Potassium (3.5-5.1) mmol/L Chloride (98-107) mmol/L Carbon Dioxide (22-30) mmol/L Anion Gap mmol/L BUN (9-20) mg/dL Creatinine (0.66-1.25) mg/dL Est GFR (CKD-EPI)AfAm (>60 ml/min/1.73 sqM) Est GFR (CKD-EPI)NonAf (>60 ml/min/1.73 sqM) Glucose (74-99) mg/dL Lactic Ac Sepsis Rflx Y Plasma Lactic Acid Pierre (0.7-2.0) mmol/L Calcium (8.4-10.2) mg/dL Total Bilirubin (0.2-1.3) mg/dL AST (17-59) U/L ALT (4-49) U/L Alkaline Phosphatase (38-126) U/L Total Protein (6.3-8.2) g/dL Albumin (3.5-5.0) g/dL Disposition Clinical Impression: Atypical pneumonia Disposition: ADMITTED IP TO THIS [facility] Condition: Serious Referrals: Joseph Granger MD [Primary Care Provider] - 1-2 days Decision to Admit Reason: Admit from EC Decision Date: 04/26/21 Decision Time: 00:28
[2021-04-25 21:46] LABS: Basophils % (A) 0 %; Eosinophils # (A) 0.3 k/uL (0-0.7); Eosinophils % (A) 2 %; HCT 42.4 % (39.0-53.0); HGB 14.8 gm/dL (13.0-17.5); Lymphocytes # (A) 0.3 k/uL (1.0-4.8); Lymphocytes % (A) 2 %; MCH 29.9 pg (25.0-35.0); MCHC 34.9 g/dL (31.0-37.0); MCV 85.9 fL (80.0-100.0); Mean Platelet Volume 9.6; Monocytes # (A) 0.4 k/uL (0-1.0); Monocytes % (A) 3 %; Neutrophils # (A) 13.8 k/uL (1.3-7.7); Neutrophils % (A) 93 %; Platelet Count 212 k/uL (150-450); RBC 4.94 m/uL (4.30-5.90); RDW 13.4 % (11.5-15.5); WBC 14.8 k/uL (3.8-10.6)
[2021-04-25 21:54] LABS: ALT 18 U/L (4-49); AST 30 U/L (17-59); African American GFR (CKD) >90 (>60 ml/min/1.73 sqM); Albumin 4.7 g/dL (3.5-5.0); Alkaline Phosphatase 84 U/L (38-126); Anion Gap 12 mmol/L; Blood Urea Nitrogen 14 mg/dL (9-20); Calcium 9.6 mg/dL (8.4-10.2); Carbon Dioxide 23 mmol/L (22-30); Chloride 103 mmol/L (98-107); Glucose 172 mg/dL (74-99); Non-African American GFR(CKD) >90 (>60 ml/min/1.73 sqM); Potassium 3.6 mmol/L (3.5-5.1); Sodium 138 mmol/L (137-145); Total Bilirubin 0.6 mg/dL (0.2-1.3); Total Protein 7.9 g/dL (6.3-8.2)
[2021-04-25 23:22] LABS: Anisocytosis (M) Present
[2021-04-25] MEDS ORDERED: AZITHROMYCIN 500 MG in SODIUM CHLORIDE 0.9% 250 ML IVPB STA (23:53)
[2021-04-25] MEDS ORDERED: SODIUM CHLORIDE 0.9% 500 ML 500 ML IV ONE (23:54)
[2021-04-25] MEDS ORDERED: SODIUM CHLORIDE 0.9% 1,000 ML IV ONE (23:54)
[2021-04-26] MEDS ORDERED: NALOXONE 0.4 MG/ML 1 ML VIAL IV PRN (00:28)
[2021-04-26] MEDS ORDERED: ACETAMINOPHEN TAB 325 MG TAB PO PRN (00:28)
[2021-04-26] MEDS ORDERED: IPRATROPIUM-ALBUTEROL 3 ML NEB INHALATION PRN (00:29)
--- NOTE | 2021-04-26 01:24 | XR ---
EXAMINATION TYPE: XR chest 2V DATE OF EXAM: 04/26/2021 COMPARISON: 04/25/2021 HISTORY: Short of breath TECHNIQUE: FINDINGS: There is some coarse interstitial infiltrate in the lungs. Costophrenic angles are clear. T here is no gross heart failure. Heart size is fairly normal. IMPRESSION: Interstitial pulmonary infiltrates are improved compared to yesterday.
[2021-04-26] MEDS: HYDROcodone/APAP 7.5-325MG 1 EACH TAB PO PRN ×2 (01:56→17:54)
[2021-04-26] MEDS: BACLOFEN 10 MG TAB PO SCH ×3 (01:57→20:41)
[2021-04-26] MEDS: IPRATROPIUM-ALBUTEROL 3 ML NEB INHALATION SCH ×4 (07:12→21:57)
[2021-04-26] MEDS: SODIUM CHLORIDE 0.9% 1,000 ML IV SCH ×2 (08:41→08:49)
[2021-04-26] MEDS: FUROSEMIDE 20 MG TAB PO SCH (08:49)
[2021-04-26] MEDS: PANTOPRAZOLE 40 MG TABLET PO SCH (08:49)
[2021-04-26] MEDS: CITALOPRAM HYDROBROMIDE 20 MG TAB PO SCH (08:53)
--- NOTE | 2021-04-26 15:02 | P.HPIM ---
History of Present Illness H&P Date: 04/26/21 HISTORY OF PRESENT ILLNESS This is a 61-year-old male patient of Dr. Granger with past medical history of COPD, gastroesophageal reflux disease, chronic back pain, depression, active tobacco use and dependence. Patient states that he was exposed to his grandson who had a sinus infection. He has not received the Covid vaccine. He has been seen bipolar medicine in the past but he states has been a long time. He complains of fever and increasing shortness of breath. He initially presented on 04/25 and diagnosed with pneumonia. Patient did not want to stay in the [facility] and he was given prednisone and Z-Nasir. She returned on 04/25 due to increasing shortness of breath and cough as well as back pain which is chronic. He was afebrile, heart rate in the 60s, blood pressure 126/84, pulse ox 95% on room air. Initial blood work was WBC 11.4, hemoglobin 13.3 and platelet count 198. Sodium 136, potassium 3.2, chloride 105, CO2 21, BUN 13 and creatinine 1.02. Initial lactic acid 1.4 on repeat visit, 3.2 and now down to 1.0. Liver function tests were normal. Troponin negative. ProBNP 1060. Carotid virus PCR not detected. 04/25 chest x-ray reveals mild diffuse increased lung markings with slight prominence of the pulmonary vascular markings. Correlate for early volume overload and atypical pneumonia. 04/26 chest x-ray reveals interstitial pulmonary infiltrates are improved compared to yesterday. Patient is seen today in the emergency center waiting for bed on the [facility] floor. Patient started on azithromycin, ceftriaxone, DuoNeb treatments and co nsult with pulmonary medicine. REVIEW OF SYSTEMS Constitutional: Reports fever, Reports chills, no night sweats. No weight change. No weakness, fatigue or lethargy. No daytime sleepiness. EENT: No headache. No blurred vision or double vision, no loss of vision. No loss of Hearing, no ringing in the ears, no dizziness. No nasal drainage or congestion. No epistaxis. No sore throat. Lungs: Reports shortness of breath, Reports cough, no sputum production. No wheezing. Cardiovascular: No chest pain, no lower extremity edema. No palpitations. No paroxysmal nocturnal dyspnea. No orthopnea. No lightheadedness or dizziness. No syncopal episodes. Abdominal: No abdominal pain. No nausea, vomiting. No diarrhea. No constipation. No bloody or tarry stools. No loss of appetite. Genitourinary: No dysuria, increased frequency, urgency. No urinary retention. Musculoskeletal: No myalgias. No muscle weakness, no gait dysfunction, no frequent falls. No back pain. No neck pain. Integumentary: No wounds, no lesions. No rash or pruritus. No unusual bruising . No change in hair or nails. Neurologic: No aphasia. No facial droop. No change in mentation. No head injury. No headache. No paralysis. No paresthesia. Psychiatric: No depression. No anxiety. No mood swings. Endocrine: No abnormal blood sugars. No weight change. SOCIAL HISTORY Patient is a smoker since he was 19 years of age currently at 56 cigarettes per day. He also smokes marijuana 1 joint daily. He does not have oxygen at home. He utilizes a nebulizer Y2 times per week. He lives at home with his ex-. He is currently on disability secondary to back pain. FAMILY HISTORY Mother at age 70 from myocardial infarction. Father at age 29 in a motor vehicle accident. Patient has no sisters. He has 2 brothers but he has no contact with them. Patient has 1 son with history of lymphoma and one son with no major medical problems. He has 3 daughters with no major medical problems. PHYSICAL EXAMINATION Gen: This is [ ] HEENT: Head is atraumatic, normocephalic. Pupils equal, round. Sclerae is anicteric. NECK: Supple. No JVD. No lymphadenopathy. No thyromegaly. LUNGS: Clear to auscultation. No wheezes or rhonchi. No intercostal retractions. HEART: Regular rate and rhythm. No murmur. ABDOMEN: Soft. Bowel sounds are present. No masses. No tenderness. EXTREMITIES: No pedal edema. No calf tenderness. NEUROLOGICAL: Patient is awake, alert and oriented x3. Cranial nerves 2 through 12 are grossly intact. ASSESSMENT AND PLAN 1. Bilateral pneumonia. Continue ceftriaxone, and azithromycin, DuoNeb treatments 4 times daily and as needed, consult with pulmonary medicine. 2. COPD. Continue DuoNeb treatments. 3. Chronic back pain. Continue baclofen. 4. Gastroesophageal reflux disease. Continue Protonix. 5. Recurrent depression. Continue Celexa 40 mg daily. 6. Chronic tobacco use and dependence. Patient denies need for nicotine patch. 7. DVT prophylaxis. Heparin subcu. 8. COVID-19 testing negative. Patient has been hospitalized during a pandemic. Patient will be admitted to the hospital for a minimum of 2 night stay. DISCHARGE PLAN Home. Impression and plan of care have been directed as dictated by the signing physician. Marybel Santoro nurse practitioner acting as scribe for signing physician. Past Medical History Past Medical History: Pneumonia Additional Past Medical History / Comment(s): back pain History of Any Multi-Drug Resistant Organisms: None Reported Past Surgical History: Back Surgery Additional Past Surgical History / Comment(s): neck fusion,rt eye surgery, rt hand surgery Past Anesthesia/Blood Transfusion Reactions: No Reported Reaction Past Psychological History: Depression Smoking Status: Current every day smoker Past Alcohol Use History: Occasional Past Drug Use History: Marijuana - Past Family History Mother History Unknown: Yes Family Medical History: Myocardial Infarction ([place]) Additional Family Medical History / Comment(s): from [place] Medications and Allergies Home Medications Medication Instructions Recorded Confirmed Type Baclofen [Lioresal] 20 mg PO TID 01/14/20 04/26/21 History Citalopram Hydrobromide [CeleXA] 40 mg PO HS 01/14/20 04/26/21 History Albuterol Sulfate [Proair Hfa] 1 - 2 puff INHALATION RT-Q6H PRN 09/15/20 04/26/21 History Pantoprazole [Protonix] 40 mg PO AC-BRKFST #30 tablet. 09/24/20 04/26/21 Rx Tiotropium 2.5 Mcg/Puff [Spiriva 2 puff INHALATION RT-DAILY puff 09/24/20 04/26/21 Rx Respimat 2.5 Mcg] Furosemide [Lasix] 20 mg PO DAILY 04/25/21 04/26/21 History HYDROcodone/APAP 7.5-325MG [[place] 1 tab PO BID PRN 04/25/21 04/26/21 History 7.5-325] predniSONE 50 mg PO DAILY #5 tab 04/25/21 04/26/21 Rx Azithromycin [Zithromax Z-pack (6 See Taper PO DIRECTED 04/26/21 04/26/21 H istory tabs)] Allergies Allergy/AdvReac Type Severity Reaction Status Date / Time potassium chloride Allergy Swelling Verified 04/26/21 07:52 [From Klor-Con] sacubitril [From Entresto] Allergy Unknown Verified 04/26/21 07:52 valsartan [From Entresto] Allergy Unknown Verified 04/26/21 07:52 Physical Exam Vitals: Vital Signs Temp Pulse Resp BP Pulse Ox 04/26/21 08:47 97.9 F 63 21 126/84 95 04/26/21 06:20 97.3 F L 65 18 126/89 96 04/26/21 05:00 85 17 137/79 97 04/26/21 00:00 89 17 144/85 97 04/25/21 23:45 18 04/25/21 20:42 97.6 F 92 24 166/92 99 Intake and Output 04/25/21 04/26/21 04/26/21 22:59 06:59 14:59 Other: Weight 65.771 kg Results CBC & Chem 7: 04/25/21 21:12 04/25/21 21:12 Labs: Abnormal Lab Results - Last 24 Hours (Table) 04/25/21 04/25/21 04/25/21 Range/Units 21:12 21:12 21:12 WBC 14.8 H (3.8-10.6) k/uL Neutrophils # 13.8 H (1.3-7.7) k/uL Lymphocytes # 0.3 L (1.0-4.8) k/uL Glucose 172 H (74-99) mg/dL Plasma Lactic Acid Pierre 3.2 H* (0.7-2.0) mmol/L 04/26/21 04/26/21 Range/Units 00:19 04:28 WBC (3.8-10.6) k/uL Neutrophils # (1.3-7.7) k/uL Lymphocytes # (1.0-4.8) k/uL Glucose (74-99) mg/dL Plasma Lactic Acid Pierre 3.2 H* 2.2 H* (0.7-2.0) mmol/L
--- NOTE | 2021-04-26 16:55 | P.CNPUL ---
History of Present Illness Consult date: 04/26/21 Reason for consult: dyspnea History of present illness: 61-year-old male patient coming in for shortness of breath. Is known to have COPD. He also had a previous bouts of respiratory failure requiring intubation mechanical ventilation due to pneumonia back in August 2020. At that time, the patient was hospitalized and the patient was intubated and placed on a mechanical ventilator for several days probably at least a week and following t hat he was extubated. The patient is coming in today because of worsening shortness of breath. He is known to have depression and bipolar disorder in addition to chronic back pain and acid reflux. The chest x-ray from admission showed interstitial changes bilaterally, probably a residual of a previous COVID 19 related to pneumonia. No airspace disease was noted. Tentative been stable on today's and in no based on my review of the chest x-ray from 04/25/2021 and 04/26/2021. White cell count is at 11.4, BUN is at 13 with a creatinine of 1.02. Lactic acid level was at one 0.4. LFTs are normal. Troponins are negative. ProBNP level is 1060. Repeat COVID 19 testing was essentially negat maxwell. Patient is currently being treated with a combination of Rocephin and Zithromax. The patient is also on DuoNeb nebulized treatments around the clock. Review of Systems Constitutional: Reports weakness Eyes: denies as per HPI, denies blurred vision, denies bulging eye, denies decreased vision, denies diplopia, denies discharge, denies dry eye, denies irritation, denies itching, denies pain, denies photophobia, denies loss of peripheral vision, denies loss of vision, denies tunnel vision/blind spots Ears: deny: decreased hearing, ear discharge, earache, tinnitus Ears, nose, mouth and throat: Reports as per HPI Cardiovascular: Reports dyspnea on exertion Gastrointestinal: Reports as per HPI Genitourinary: Reports as per HPI Musculoskeletal: Reports as per HPI Musculoskeletal: absent: ankle pain, ankle stiffness, ankle swelling, as per HPI, elbow pain, elbow stiffness, elbow swelling, foot pain, foot stiffness, foot swelling, hand pain, hand stiffness, hand swelling, hip pain, hip stiffness, hip swelling, knee pain, knee stiffness, knee swelling, shoulder pain, shoulder stiffness, shoulder swelling, wrist pain, wrist stiffness, wrist swelling Integumentary: Reports as per HPI Neurological: Reports as per HPI Psychiatric: Reports as per HPI Endocrine: Reports as per HPI Hematologic/Lymphatic: Reports as per HPI Allergic/Immunologic: Reports as per HPI Past Medical History Past Medical History: COPD, Pneumonia Additional Past Medical History / Comment(s): back pain History of Any Multi-Drug Resistant Organisms: None Reported Past Surgical History: Back Surgery Additional Past Surgical History / Comment(s): neck fusion,rt eye surgery, rt hand surgery Past Anesthesia/Blood Transfusion Reactions: No Reported Reaction Past Psychological History: Depression Smoking Status: Current every day smoker Past Alcohol Use History: Occasional Past Drug Use History: Marijuana - Past Family History Mother History Unknown: Yes Family Medical History: Myocardial Infarction ([place]) Additional Family Medical History / Comment(s): from [place] Medications and Allergies Home Medications Medication Instructions Recorded Confirmed Type Baclofen [Lioresal] 20 mg PO TID 01/14/20 04/26/21 History Citalopram Hydrobromide [CeleXA] 40 mg PO HS 01/14/20 04/26/21 History Albuterol Sulfate [Proair Hfa] 1 - 2 puff INHALATION RT-Q6H PRN 09/15/20 04/26/21 History Pantoprazole [Protonix] 40 mg PO AC-BRKFST #30 tablet.dr 09/24/20 04/26/21 Rx Tiotropium 2.5 Mcg/Puff [Spiriva 2 puff INHALATION RT-DAILY puff 09/24/20 04/26/21 Rx Respimat 2.5 Mcg] Furosemide [Lasix] 20 mg PO DAILY 04/25/21 04/26/21 History HYDROcodone/APAP 7.5-325MG [[place] 1 tab PO BID PRN 04/25/21 04/26/21 History 7.5-325] predniSONE 50 mg PO DAILY #5 tab 04/25/21 04/26/21 Rx Azithromycin [Zithromax Z-pack (6 See Taper PO DIRECTED 04/26/21 04/26/21 History tabs)] Allergies Allergy/AdvReac Type Severity Reaction Status Date / Time potassium chloride Allergy Swelling Verified 04/26/21 07:52 [From Klor-Con] sacubitril [From Entresto] Allergy Unknown Verified 04/26/21 07:52 valsartan [From Entresto] Allergy Unknown Verified 04/26/21 07:52 Physical Exam Vitals: Vital Signs Temp Pulse Resp BP Pulse Ox 04/26/21 15:07 70 04/26/21 14:58 68 04/26/21 13:46 98.1 F 68 20 115/79 97 04/26/21 12:43 85 20 04/26/21 11:11 68 04/26/21 10:59 68 04/26/21 08:47 97.9 F 63 21 126/84 95 04/26/21 07:23 68 04/26/21 07:13 68 04/26/21 06:20 97.3 F L 65 18 126/89 96 04/26/21 05:00 85 17 137/79 97 04/26/21 00:00 89 17 144/85 97 04/25/21 23:45 18 04/25/21 20:42 97.6 F 92 24 166/92 99 The patient appeared well nourished and normally developed. Vital signs as documented. Head exam is unremarkable. No scleral icterus or corneal arcus noted. Neck is without jugular venous distension, thyromegaly, or carotid bruits. Carotid upstrokes are brisk bilaterally. Lungs are clear to auscultation and percussion. Cardiac exam reveals the PMI to be normally sized and situated. Rhythm is regular. First and second heart sounds normal. No murmurs, rubs or gallops. Abdominal exam reveals normal bowel sounds, no masses, no organomegaly and no aortic enlargement. Extremities are nonedematous and both femoral and pedal pulses are normal.Examination of the skin revealed no evidence of si gnificant rashes, suspicious appearing nevi or other concerning lesions.Neurologically, the patient is awake and alert and the patient does not have any focal neurological deficit. Cranial nerves are essentially intact. Results - Laboratory Findings CBC and BMP: 04/25/21 21:12 04/25/21 21:12 ABG WBC 14.8 k/uL (3.8-10.6) H 04/25/21 21:12 RBC 4.94 m/uL (4.30-5.90) 04/25/21 21:12 Hgb 14.8 gm/dL (13.0-17.5) 04/25/21 21:12 Hct 42.4 % (39.0-53.0) 04/25/21 21:12 MCV 85.9 fL (80.0-100.0) 04/25/21 21:12 MCH 29.9 pg (25.0-35.0) 04/25/21 21:12 MCHC 34.9 g/dL (31.0-37.0) 04/25/21 21:12 RDW 13.4 % (11.5-15.5) 04/25/21 21:12 Plt Count 212 k/uL (150-450) 04/25/21 21:12 MPV 9.6 04/25/21 21:12 Neutrophils % 93 % 04/25/21 21:12 Lymphocytes % 2 % 04/25/21 21:12 Monocytes % 3 % 04/25/21 21:12 Eosinophils % 2 % 04/25/21 21:12 Basophils % 0 % 04/25/21 21:12 Neutrophils # 13.8 k/uL (1.3-7.7) H 04/25/21 21:12 Lymphocytes # 0.3 k/uL (1.0-4.8) L 04/25/21 21:12 Monocytes # 0.4 k/uL (0-1.0) 04/25/21 21:12 Eosinophils # 0.3 k/uL (0-0.7) 04/25/21 21:12 Basophils # 0.0 k/uL (0-0.2) 04/25/21 21:12 Manual Slide Review Performed 04/25/21 21:12 Anisocytosis (manual) Present 04/25/21 21:12 Sodium 138 mmol/L (137-145) 04/25/21 21:12 Potassium 3.6 mmol/L (3.5-5.1) 04/25/21 21:12 Chloride 103 mmol/L (98-107) 04/25/21 21:12 Carbon Dioxide 23 mmol/L (22-30) 04/25/21 21:12 Anion Gap 12 mmol/L 04/25/21 21:12 BUN 14 mg/dL (9-20) 04/25/21 21:12 Creatinine 0.84 mg/dL (0.66-1.25) 04/25/21 21:12 Est GFR (CKD-EPI)AfAm >90 (>60 ml/min/1.73 sqM) 04/25/21 21:12 Est GFR (CKD-EPI)NonAf >90 (>60 ml/min/1.73 sqM) 04/25/21 21:12 Glucose 172 mg/dL (74-99) H 04/25/21 21:12 Lactic Ac Sepsis Rflx Y 04/26/21 05:42 Plasma Lactic Acid Pierre 1.0 mmol/L (0.7-2.0) 04/26/21 07:57 Calcium 9.6 mg/dL (8.4-10.2) 04/25/21 21:12 Total Bilirubin 0.6 mg/dL (0.2-1.3) 04/25/21 21:12 AST 30 U/L (17-59) 04/25/21 21:12 ALT 18 U/L (4-49) 04/25/21 21:12 Alkaline Phosphatase 84 U/L (38-126) 04/25/21 21:12 Total Protein 7.9 g/dL (6.3-8.2) 04/25/21 21:12 Albumin 4.7 g/dL (3.5-5.0) 04/25/21 21:12 Coronavirus (PCR) Not Detected (Not Detectd) 04/26/21 16:05 Abnormal lab findings: Abnormal Labs 04/25/21 04/25/21 04/25/21 21:12 21:12 21:12 WBC 14.8 H Neutrophils # 13.8 H Lymphocytes # 0.3 L Glucose 172 H Plasma Lactic Acid Pierre 3.2 H* 04/26/21 04/26/21 00:19 04:28 WBC Neutrophils # Lymphocytes # Glucose Plasma Lactic Acid Pierre 3.2 H* 2.2 H* - Diagnostic Findings Chest x-ray: image reviewed Assessment and Plan Plan: 1 acute COPD exacerbation with secondary shortness of breath. The chest x-rays abnormal and there is some residual interstitial changes probably related to a previous extensive pneumonia that the patient had back in August 2020. Doubt any acute bacterial pneumonia. Atypical pneumonia cannot be completely excluded. COVID 19 testing is been negative. 2 previous history of ventilator dependent respiratory failure secondary to extensive bilateral pneumonia back in August 2020. The patient was on a mechanical ventilator for almost a week 3 smoking 4 marijuana use 5 chronic depression/bipolar disorder 6 chronic pain involving the back Plan Smoking cessation counseling was done. Continue antibiotics. Obtain a CAT scan of the chest with contrast. Continue bronchodilators. Put the patient prednisone burst taper. Check pro calcitonin level. Discharge in the next 24- 48 hours.
[2021-04-26] MEDS: HEPARIN SODIUM,PORCINE/PF 5,000 UNIT/0.5 ML SYRINGE SQ SCH (20:41)
--- NOTE | 2021-04-26 22:30 | CT ---
EXAMINATION TYPE: CT chest wo con DATE OF EXAM: 04/26/2021 COMPARISON: 09/15/2020 HISTORY: Shortness of breath. CT DLP: 223.2 mGycm Automated exposure control for dose reduction was used. Images obtained from the thoracic inlet to the diaphragm without contrast. There is some patchy groundglass interstitial infiltrate throughout both lungs. Heart size is normal. There is no pericardial effusion. There is no mediastinal adenopathy. Thoracic aorta is intact. Ther e is no sign of aneurysm. There are no hilar masses. Bony thorax is intact. Upper abdominal soft tiss ues are intact. There is some degenerative spurring in the thoracic spine. There is no compression fracture. Sternum is intact. The ribs appear intact. IMPRESSION: Mild patchy groundglass pulmonary interstitial infiltrates which are significantly improved compared to old exam. No suspicious pulmonary mass. Normal heart.
[2021-04-27] MEDS ORDERED: AZITHROMYCIN 500 MG in SODIUM CHLORIDE 0.9% 250 ML IVPB SCH (02:00)
[2021-04-27 02:35] VITALS: BP 126/80; RESP 15; TEMP 97.9
[2021-04-27] MEDS: HYDROcodone/APAP 7.5-325MG 1 EACH TAB PO PRN (07:34)
[2021-04-27] MEDS: PANTOPRAZOLE 40 MG TABLET PO SCH (07:36)
[2021-04-27] MEDS: CITALOPRAM HYDROBROMIDE 20 MG TAB PO SCH (08:09)
[2021-04-27] MEDS: BACLOFEN 10 MG TAB PO SCH (08:09)
[2021-04-27] MEDS: FUROSEMIDE 20 MG TAB PO SCH (08:10)
[2021-04-27] MEDS: HEPARIN SODIUM,PORCINE/PF 5,000 UNIT/0.5 ML SYRINGE SQ SCH (08:10)
[2021-04-27] MEDS: IPRATROPIUM-ALBUTEROL 3 ML NEB INHALATION SCH (08:44)
--- NOTE | 2021-04-27 09:35 | P.DS ---
Providers Date of admission: 04/26/21 00:56 Expected date of discharge: 04/27/21 Attending physician: Irene Del Real MD Consults: 04/26/21 10:19 Consult Physician Routine Consulting Provider: Cathy Christian Consult Reason/Comments: pneumonia Do you want consulting provider notified?: Yes Primary care physician: Joseph Granger MD Hospital Course: HISTORY OF PRESENT ILLNESS This is a 61-year-old male patient of Dr. Granger with past medical history of COPD, gastroesophageal reflux disease, chronic back pain, depression, active tobacco use and dependence. Patient states that he was exposed to his grandson who had a sinus infection. He has not received the Covid vaccine. He has been seen bipolar medicine in the past but he states has been a long time. He complains of fever and increasing shortness of breath. He initially presented on 04/25 and diagnosed with pneumonia. Patient did not want to stay in the hospital and he was given prednisone and Z-Nasir. She returned on 04/25 due to increasing shortness of breath and cough as well as back pain which is chronic. He was afebrile, heart rate in the 60s, blood pressure 126/84, pulse ox 95% on room air. Initial blood work was WBC 11.4, hemoglobin 13.3 and platelet count 198. Sodium 136, potassium 3.2, chloride 105, CO2 21, BUN 13 and creatinine 1.02. Initial lactic acid 1.4 on repeat visit, 3.2 and now down to 1.0. Liver function tests were normal. Troponin negative. ProBNP 1060. Carotid virus PCR not detected. 04/25 chest x-ray reveals mild diffuse increased lung markings with slight prominence of the pulmonary vascular markings. Correlate for early volume overload and atypical pneumonia. 04/26 chest x-ray reveals interstitial pulmonary infiltrates are improved compar ed to yesterday. Patient is seen today in the emergency center waiting for bed on the [facility] floor. Patient started on azithromycin, ceftriaxone, DuoNeb treatments and consult with pulmonary medicine. 04/27: Patient has been seen by pulmonary medicine with recommendations to continue the same treatment. Pro-Calcitonin came back at 0.16. She has a prescription for azithromycin at home which he obtained from the emergency center which he will complete. A new prescription for prednisone taper will be provided. His breathing status is stable and he denies any significant cough, no fever or chills. Patient will be discharged home today in stable condition. DISCHARGE DIAGNOSES 1. Bilateral pneumonia. 2. COPD. 3. Chronic back pain. 4. Gastroesophageal reflux disease. 5. Recurrent depression. 6. Chronic tobacco use and dependence. DISCHARGE PLAN Home. Greater than 35 minutes was utilized and coordinating patient's discharge. Impression and plan of care have been directed as dictated by the signing physician. Marybel Santoro nurse practitioner acting as scribe for signing physician. Patient Condition at Discharge: Good Plan - Discharge Summary Discharge Rx Participant: Yes New Discharge Prescriptions: New predniSONE [Deltasone] 20 mg PO DAILY #30 tab predniSONE [Deltasone] 0 mg PO DIRECTED #15 tab Continue Baclofen [Lioresal] 20 mg PO TID Citalopram Hydrobromide [CeleXA] 40 mg PO HS Pantoprazole [Protonix] 40 mg PO AC-BRKFST #30 tablet. Furosemide [Lasix] 20 mg PO DAILY Azithromycin [Zithromax Z-pack (6 tabs)] See Taper PO DIRECTED Albuterol Sulfate [Proair Hfa] 1 - 2 puff INHALATION RT-Q6H PRN PRN Reason: Shortness Of Breath Tiotropium 2.5 Mcg/Puff [Spiriva Respimat 2.5 Mcg] 2 puff INHALATION RT-DAILY puff HYDROcodone/APAP 7.5-325MG [[place] 7.5-325] 1 tab PO BID PRN PRN Reason: Pain Discontinued predniSONE 50 mg PO DAILY #5 tab Discharge Medication List Baclofen [Lioresal] 20 mg PO TID 01/14/20 [History] Citalopram Hydrobromide [CeleXA] 40 mg PO HS 01/14/20 [History] Albuterol Sulfate [Proair Hfa] 1 - 2 puff INHALATION RT-Q6H PRN 09/15/20 [History] Pantoprazole [Protonix] 40 mg PO AC-BRKFST #30 tablet. 09/24/20 [Rx] Tiotropium 2.5 Mcg/Puff [Spiriva Respimat 2.5 Mcg] 2 puff INHALATION RT-DAILY puff 09/24/20 [Rx] Furosemide [Lasix] 20 mg PO DAILY 04/25/21 [History] HYDROcodone/APAP 7.5-325MG [[place] 7.5-325] 1 tab PO BID PRN 04/25/21 [History] Azithromycin [Zithromax Z-pack (6 tabs)] See Taper PO DIRECTED 04/26/21 [History] predniSONE [Deltasone] 0 mg PO DIRECTED #15 tab 04/27/21 [Rx] predniSONE [Deltasone] 20 mg PO DAILY #30 tab 04/27/21 [Rx] Follow up Appointment(s)/Referral(s): Joseph Granger MD [Primary Care Provider] - 1-2 days Cathy Christian MD [STAFF PHYSICIAN] - 1 Week Discharge Disposition: HOME SELF-CARE
[2021-04-27 11:17] VITALS: PULSE 71
[2021-04-27 11:35] LABS: Basophils # (A) 0.03 X 10*3/uL (0.00-0.10); Basophils % (A) 0.2 %; Eosinophils # (A) 0 X 10*3/uL (0.04-0.35); Eosinophils % (A) 0 %; HCT 36.3 % (39.6-50.0); HGB 11.3 g/dL (13.0-17.0); Lymphocytes # (A) 1.73 X 10*3/uL (0.90-5.00); Lymphocytes % (A) 12.7 %; MCHC 31.1 g/dL (32.0-37.0); MCV 89.9 fL (80.0-97.0); Mean Platelet Volume 11.2 fL (9.5-12.2); Monocytes % (A) 6.6 %; Neutrophils # (A) 10.95 X 10*3/uL (1.80-7.70); Neutrophils % (A) 80.1 %; Platelet Count 210 X 10*3/uL (140-440); RBC 4.04 X 10*6/uL (4.40-5.60); RDW 14.6 % (11.5-14.5); WBC 13.67 X 10*3/uL (4.50-10.00)
[2021-04-27 11:54] LABS: African American GFR (CKD) 111.6 (60.0-200.0); Anion Gap 13.2 mmol/L (10.00-18.00); BUN/Creat Ratio 20.72 Ratio (12.00-20.00); Blood Urea Nitrogen 17.2 mg/dL (9.0-27.0); Calcium 8.6 mg/dL (8.7-10.3); Carbon Dioxide 20.9 mmol/L (20.0-27.5); Non-African American GFR(CKD) 96.3 (60.0-200.0); Potassium 3.6 mmol/L (3.5-5.5)
--- NOTE | 2021-04-27 12:04 | P.PN ---
Subjective Progress Note Date: 04/27/21 61-year-old male patient coming in for shortness of breath. Is known to have COPD. He also had a previous bouts of respiratory failure requiring intubation mechanical ventilation due to pneumonia back in August 2020. At that time, the patient was hospitalized and the patient was intubated and placed on a mechanical ventilator for several days probably at least a week and following that he was extubated. The patient is coming in today because of worsening shortness of breath. He is known to have depression and bipolar disorder in addition to chronic back pain and acid reflux. The chest x-ray from admission showed interstitial changes bilaterally, probably a residual of a previous COVID 19 related to pneumonia. No airspace disease was noted. Tentative been stable on today's and in no based on my review of the chest x-ray from 04/25/2021 and 04/26/2021. White cell count is at 11.4, BUN is at 13 with a creatinine of 1.02. Lactic acid level was at one 0.4. LFTs are normal. Troponins are negative. ProBNP level is 1060. Repeat COVID 19 testing was essentially negative. Patient is currently being treated with a combination of Rocephin and Zithromax. The patient is also on DuoNeb nebulized treatments around the clock. The patient is seen today 04/27/2021 in follow-up on the regular medical floor. Awake and alert in no acute distress. Denies any worsening shortness of breath, cough or congestion. Maintaining O2 saturations in the mid 90s on room air. He's been afebrile. Hemodynamically stable. White count 13.6. Hemoglobin 11.3. Lymphocytes 1.73. Sodium 134. Potassium 3.6. Creatinine 0.8. Follow- up CoVID by PCR screen negative. Objective - Vital Signs Vital signs: Vital Signs Temp 97.9 F 04/27/21 02:00 Pulse 77 04/27/21 08:57 Resp 15 04/27/21 08:00 BP 126/80 04/27/21 02:00 Pulse Ox 95 04/27/21 02:00 Intake & Output 04/26/21 04/27/21 04/27/21 18:59 06:59 18:59 Intake Total 600 Balance 600 Weight 65.771 kg Intake: Oral 600 Other: # Voids 1 - Exam GENERAL EXAM: Alert, active, pleasant 61-year-old gentleman, on room air, comfortable in no apparent distress. HEAD: Normocephalic. EYES: Normal reaction of pupils, equal size. NOSE: Clear with pink turbinates. THROAT: No erythema or exudates. NECK: No masses, no JVD. CHEST: No chest wall deformity. LUNGS: Equal air entry with no crackles, wheeze, rhonchi or dullness. CVS: S1 and S2 normal with no audible murmur, regular rhythm. ABDOMEN: No hepatosplenomegaly, normal bowel sounds, no guarding or rigidity. SPINE: No scoliosis or deformity SKIN: No rashes CENTRAL NERVOUS SYSTEM: No focal deficits, tone is normal in all 4 extremities. EXTREMITIES: There is no peripheral edema. No clubbing, no cyanosis. Peripheral pulses are intact. - Labs CBC & Chem 7: 04/27/21 06:41 04/27/21 06:41 Labs: Abnormal Lab Results - Last 24 Hours (Table) 04/26/21 04/26/21 04/27/21 Range/Units 07:57 07:57 06:41 WBC 13.67 H (4.50-10.00) X 10*3/uL RBC 4.04 L (4.40-5.60) X 10*6/uL Hgb 11.3 L (13.0-17.0) g/dL Hct 36.3 L (39.6-50.0) % MCHC 31.1 L (32.0-37.0) g/dL RDW 14.6 H (11.5-14.5) % Immature Gran # 0.06 H (0.00-0.04) X 10*3/uL Neutrophils # 10.95 H (1.80-7.70) X 10*3/uL Eosinophils # 0 L (0.04-0.35) X 10*3/uL Chloride (96-109) mmol/L BUN/Creatinine Ratio (12.00-20.00) Ratio Calcium (8.7-10.3) mg/dL NT-Pro-B Natriuret Pep 1213 H (0-125) pg/mL Procalcitonin 0.16 H (0.02-0.09) ng/mL 04/27/21 Range/Units 06:41 WBC (4.50-10.00) X 10*3/uL RBC (4.40-5.60) X 10*6/uL Hgb (13.0-17.0) g/dL Hct (39.6-50.0) % MCHC (32.0-37.0) g/dL RDW (11.5-14.5) % Immature Gran # (0.00-0.04) X 10*3/uL Neutrophils # (1.80-7.70) X 10*3/uL Eosinophils # (0.04-0.35) X 10*3/uL Chloride 110 H (96-109) mmol/L BUN/Creatinine Ratio 20.72 H (12.00-20.00) Ratio Calcium 8.6 L (8.7-10.3) mg/dL NT-Pro-B Natriuret Pep (0-125) pg/mL Procalcitonin (0.02-0.09) ng/mL Microbiology - Last 24 Hours (Table) 04/25/21 21:15 Blood Culture - Preliminary Blood No Growth after 24 hours 04/25/21 21:30 Blood Culture - Preliminary Blood No Growth after 24 hours Assessment and Plan Assessment: 1 acute COPD exacerbation with secondary shortness of breath. The chest x-rays abnormal and there is some residual interstitial changes probably related to a previous extensive pneumonia that the patient had back in August 2020. Doubt any acute bacterial pneumonia. Atypical pneumonia cannot be completely excluded. COVID 19 testing is been negative. Computed tomography scan reveals evidence of previous CoVID pneumonia but much improved. 2 previous history of ventilator dependent respiratory failure secondary to extensive bilateral pneumonia back in August 2020. The patient was on a mechanical ventilator for almost a week 3 smoking 4 marijuana use 5 chronic depression/bipolar disorder 6 chronic pain involving the back Plan The patient was seen and evaluated Stable for discharge from the pulmonary standpoint Continue home bronchodilators Follow-up in 1-2 weeks' I, the cosigning physician, performed a history & physical examination of the patient. Lungs sounds are clear. Maintaining good O2 saturations in the 90s on room air. I discussed the assessment and plan of care with my nurse practitioner, Brissa Sellers. I attest to the above note as dictated by her.
== END 2021-04-27 11:30 | disposition home or self-care (01) ==
LOC: EC 16:58 → 6NMEDSUR 04-26 00:56
PROVIDERS: ADMIT Internal Medicine; ATTEND Internal Medicine
DX: J18.9 Pneumonia, unspecified organism (principal); J44.1 Chronic obstructive pulmonary disease with (acute) exacerbation; J44.0 Chronic obstructive pulmonary disease with (acute) lower respiratory infection; A41.9 Sepsis, unspecified organism; G89.29 Other chronic pain; M54.9 Dorsalgia, unspecified; F17.210 Nicotine dependence, cigarettes, uncomplicated; F31.9 Bipolar disorder, unspecified; K21.9 Gastro-esophageal reflux disease without esophagitis; Z79.899 Other long term (current) drug therapy; Z88.8 Allergy status to other drugs, medicaments and biological substances; Z98.1 Arthrodesis status; Z20.822 Contact with and (suspected) exposure to COVID-19; Z20.9 Contact with and (suspected) exposure to unspecified communicable disease; Z86.16 Personal history of COVID-19; Z87.01 Personal history of pneumonia (recurrent); Z98.890 Other specified postprocedural states; Z80.7 Family history of other malignant neoplasms of lymphoid, hematopoietic and related tissues; Z82.49 Family history of ischemic heart disease and other diseases of the circulatory system
CPT/HCPCS: 96366; 96372 ×2; 96361; 96365; 96367; 99285; 36415 ×2; 94640 ×3; 93005; 83880; 80053; 80048; 83605 ×2; 85025 ×2; 87040; 87070; 87205; 84145; 87635; 71046; 71250; G0378 ×2; J0456 ×2; J0696 ×2; J1644 ×2

== ENCOUNTER 2021-04-30 10:40 | Inpatient (IN) | payer OTHER ==
[2021-04-30] MEDS ORDERED: IBUPROFEN 600 MG TAB PO STA (11:34)
[2021-04-30] MEDS ORDERED: VANCOMYCIN IV PER PHARMACY 1 EACH MISC MISCELLANE PRN (11:34)
[2021-04-30] MEDS ORDERED: PIPERACILLIN-TAZOBACTAM 3.375 GM in SODIUM CHLORIDE 0.9% 100 ML IVPB STA (11:34)
[2021-04-30] MEDS ORDERED: ACETAMINOPHEN TAB 500 MG TAB PO STA (11:34)
[2021-04-30] MEDS ORDERED: ALBUTEROL NEBULIZED 2.5 MG/3 ML INHALATION STA (11:37)
[2021-04-30] MEDS ORDERED: IPRATROPIUM 0.5 MG/2.5 ML NEBU INHALATION STA (11:38)
[2021-04-30] MEDS ORDERED: methylPREDNISolone SOD SUCCI 125 MG/2 ML VIAL IV STA (11:38)
--- NOTE | 2021-04-30 11:52 | ED ---
General Adult HPI - General Chief complaint: Shortness of Breath Stated complaint: Low O2 Time Seen by Provider: 04/30/21 11:05 Source: patient, RN notes reviewed, old records reviewed Mode of arrival: ambulatory Limitations: no limitations - History of Present Illness Initial comments: This is a 61-year-old male with past medical history significant for smoking and COPD. Patient states she was just released from the hospital a few days ago for pneumonia. Patient states his symptoms originally began about a week ago. Patient states he is not vaccinated for COVID. Patient comes back today because he is having a harder time breathing over the last day or so and is getting progressively worse. Patient denies any fever he states he is continuing to cough quite a bit. Patient denies any chest pain or palpitations. Patient denies any lightheadedness or dizziness. Patient denies any nausea vomiting diarrhea. Patient states he recently was tested for COVID and was negative. - Related Data Home Medications Medication Instructions Recorded Confirmed Baclofen [Lioresal] 20 mg PO TID 01/14/20 04/26/21 Citalopram Hydrobromide [CeleXA] 40 mg PO HS 01/14/20 04/26/21 Albuterol Sulfate [Proair Hfa] 1 - 2 puff INHALATION RT-Q6H PRN 09/15/20 04/26/21 Furosemide [Lasix] 20 mg PO DAILY 04/25/21 04/26/21 HYDROcodone/APAP 7.5-325MG [[place] 1 tab PO BID PRN 04/25/21 04/26/21 7.5-325] Azithromycin [Zithromax Z-pack (6 See Taper PO DIRECTED 04/26/21 04/26/21 tabs)] Previous Rx's Medication Instructions Recorded Pantoprazole [Protonix] 40 mg PO AC-BRKFST #30 tablet. 09/24/20 Tiotropium 2.5 Mcg/Puff [Spiriva 2 puff INHALATION RT-DAILY puff 09/24/20 Respimat 2.5 Mcg] predniSONE [Deltasone] 0 mg PO DIRECTED #15 tab 04/27/21 predniSONE [Deltasone] 20 mg PO DAILY #30 tab 04/27/21 Allergies Allergy/AdvReac Type Severity Reaction Status Date / Time potassium chloride Allergy Swelling Verified 04/30/21 13:12 [From Klor-Con] sacubitril [From Entresto] Allergy Unknown Verified 04/30/21 13:12 valsartan [From Entresto] Allergy Unknown Verified 04/30/21 13:12 Review of Systems ROS Statement: Those systems with pertinent positive or pertinent negative responses have been documented in the HPI. ROS Other: All systems not noted in ROS Statement are negative. Past Medical History Past Medical History: COPD, Pneumonia Additional Past Medical History / Comment(s): back pain History of Any Multi-Drug Resistant Organisms: None Reported Past Surgical History: Back Surgery Additional Past Surgical History / Comment(s): neck fusion,rt eye surgery, rt hand surgery Past Anesthesia/Blood Transfusion Reactions: No Reported Reaction Past Psychological History: Depression Smoking Status: Current every day smoker Past Alcohol Use History: Occasional Past Drug Use History: Marijuana - Past Family History Mother History Unknown: Yes Family Medical History: Myocardial Infarction ([place]) Additional Family Medical History / Comment(s): from [place] General Exam - General Exam Comments Initial Comments: GENERAL: Patient is well-developed and well-nourished. Patient is nontoxic and well- hydrated and is in moderate distress. ENT: Neck is soft and supple. No significant lymphadenopathy is noted. Oropharynx is clear. Moist mucous membranes. Neck has full range of motion without el iciting any pain. EYES: The sclera were anicteric and conjunctiva were pink and moist. Extraocular movements were intact and pupils were equal round and reactive to light. Eyelids were unremarkable. PULMONARY: Patient has diminished breath sounds symmetric very wheezing and some crackles in the right base CARDIOVASCULAR: There is a regular rate and rhythm without any murmurs gallops or rubs. ABDOMEN: Soft and nontender with normal bowel sounds. No palpable organomegaly was noted. There is no palpable pulsatile mass. SKIN: Skin is clear with no lesions or rashes and otherwise unremarkable. NEUROLOGIC: Patient is alert and oriented x3. Cranial nerves II through XII are grossly i ntact. Motor and sensory are also intact. Normal speech, volume and content. Symmetrical smile. MUSCULOSKELETAL: Normal extremities with adequate strength and full range of motion. No lower extremity swelling or edema. No calf tenderness. LYMPHATICS: No significant lymphadenopathy is noted PSYCHIATRIC: Normal psychiatric evaluation. Limitations: no limitations Course Vital Signs 04/30/21 04/30/21 04/30/21 11:03 13:02 13:40 Temperature 99.6 F Pulse Rate 115 H 90 Respiratory 24 18 Rate Blood Pressure 111/74 O2 Sat by Pulse 77 L Oximetry 04/30/21 14:07 Temperature Pulse Rate 92 Respiratory Rate Blood Pressure O2 Sat by Pulse Oximetry Medical Decision Making - Medical Decision Making EKG shows sinus tachycardia with an occasional PAC at 112 bpm AR interval 116 QRS is 80 QT interval 318 QTC is 434. There is no ST segment elevation or depression Chest x-ray shows diffuse groundglass opacifications bilaterally with much worse when compared to his previous EKG. Patient was given Zosyn and vancomycin on arrival. I spoke with Dr. Love he agreed to admit the patient admitted the patient wrote admitting orders. Patient also received 3 doses of albuterol and Atrovent as well as Solu-Medrol. I consulted pulmonary. - Lab Data Result diagrams: 04/30/21 12:09 04/30/21 12:09 Lab Results 04/30/21 04/30/21 04/30/21 Range/Units 12: 12: 12:09 WBC 16.9 H (3.8-10.6) k/uL RBC 4.91 (4.30-5.90) m/uL Hgb 14.0 (13.0-17.5) gm/dL Hct 41.4 (39.0-53.0) % MCV 84.4 (80.0-100.0) fL MCH 28.6 (25.0-35.0) pg MCHC 33.9 (31.0-37.0) g/dL RDW 13.4 (11.5-15.5) % Plt Count 261 (150-450) k/uL MPV 8.2 Neutrophils % 89 % Lymphocytes % 8 % Monocytes % 3 % Eosinophils % 0 % Basophils % 0 % Neutrophils # 15.0 H (1.3-7.7) k/uL Lymphocytes # 1.4 (1.0-4.8) k/uL Monocytes # 0.4 (0-1.0) k/uL Eosinophils # 0.1 (0-0.7) k/uL Basophils # 0.0 (0-0.2) k/uL PT 11.4 (9.0-12.0) sec INR 1.1 (<1.2) APTT 25.0 (22.0-30.0) sec Sodium 138 (137-145) mmol/L Potassium 3.0 L (3.5-5.1) mmol/L Chloride 106 (98-107) mmol/L Carbon Dioxide 25 (22-30) mmol/L Anion Gap 7 mmol/L BUN 15 (9-20) mg/dL Creatinine 0.82 (0.66-1.25) mg/dL Est GFR (CKD-EPI)AfAm >90 (>60 ml/min/1.73 sqM) Est GFR (CKD-EPI)NonAf >90 (>60 ml/min/1.73 sqM) Glucose 116 H (74-99) mg/dL Plasma Lactic Acid Pierre (0.7-2.0) mmol/L Calcium 8.5 (8.4-10.2) mg/dL Total Bilirubin 0.8 (0.2-1.3) mg/dL AST 46 (17-59) U/L ALT 24 (4-49) U/L Alkaline Phosphatase 82 (38-126) U/L Total Protein 5.9 L (6.3-8.2) g/dL Albumin 3.3 L (3.5-5.0) g/dL Coronavirus (PCR) (Not Detectd) 04/30/21 04/30/21 Range/Units 12:09 12:09 WBC (3.8-10.6) k/uL RBC (4.30-5.90) m/uL Hgb (13.0-17.5) gm/dL Hct (39.0-53.0) % MCV (80.0-100.0) fL MCH (25.0-35.0) pg MCHC (31.0-37.0) g/dL RDW (11.5-15.5) % Plt Count (150-450) k/uL MPV Neutrophils % % Lymphocytes % % Monocytes % % Eosinophils % % Basophils % % Neutrophils # (1.3-7.7) k/uL Lymphocytes # (1.0-4.8) k/uL Monocytes # (0-1.0) k/uL Eosinophils # (0-0.7) k/uL Basophils # (0-0.2) k/uL PT (9.0-12.0) sec INR (<1.2) APTT (22.0-30.0) sec Sodium (137-145) mmol/L Potassium (3.5-5.1) mmol/L Chloride (98-107) mmol/L Carbon Dioxide (22-30) mmol/L Anion Gap mmol/L BUN (9-20) mg/dL Creatinine (0.66-1.25) mg/dL Est GFR (CKD-EPI)AfAm (>60 ml/min/1.73 sqM) Est GFR (CKD-EPI)NonAf (>60 ml/min/1.73 sqM) Glucose (74-99) mg/dL Plasma Lactic Acid Pierre 1.6 (0.7-2.0) mmol/L Calcium (8.4-10.2) mg/dL Total Bilirubin (0.2-1.3) mg/dL AST (17-59) U/L ALT (4-49) U/L Alkaline Phosphatase (38-126) U/L Total Protein (6.3-8.2) g/dL Albumin (3.5-5.0) g/dL Coronavirus (PCR) Not Detected (Not Detectd) Critical Care Time Critical Care Time: Yes Total Critical Care Time: 35 Disposition Clinical Impression: Primary atypical pneumonia, Hypoxia Disposition: ADMITTED IP TO THIS HOSP Referrals: Joseph Granger MD [Primary Care Provider] - 1-2 days Time of Disposition: 14:23
[2021-04-30] MEDS ORDERED: VANCOMYCIN 1,250 MG in SODIUM CHLORIDE 0.9% 250 ML IVPB ONE (12:15)
[2021-04-30 12:39] LABS: Basophils % (A) 0 %; Eosinophils # (A) 0.1 k/uL (0-0.7); Eosinophils % (A) 0 %; HCT 41.4 % (39.0-53.0); Lymphocytes # (A) 1.4 k/uL (1.0-4.8); Lymphocytes % (A) 8 %; MCH 28.6 pg (25.0-35.0); MCHC 33.9 g/dL (31.0-37.0); MCV 84.4 fL (80.0-100.0); Mean Platelet Volume 8.2; Monocytes # (A) 0.4 k/uL (0-1.0); Monocytes % (A) 3 %; Neutrophils % (A) 89 %; Platelet Count 261 k/uL (150-450); RBC 4.91 m/uL (4.30-5.90); RDW 13.4 % (11.5-15.5); WBC 16.9 k/uL (3.8-10.6)
[2021-04-30 12:53] LABS: ALT 24 U/L (4-49); AST 46 U/L (17-59); African American GFR (CKD) >90 (>60 ml/min/1.73 sqM); Albumin 3.3 g/dL (3.5-5.0); Alkaline Phosphatase 82 U/L (38-126); Anion Gap 7 mmol/L; Blood Urea Nitrogen 15 mg/dL (9-20); Calcium 8.5 mg/dL (8.4-10.2); Carbon Dioxide 25 mmol/L (22-30); Chloride 106 mmol/L (98-107); Glucose 116 mg/dL (74-99); Non-African American GFR(CKD) >90 (>60 ml/min/1.73 sqM); Sodium 138 mmol/L (137-145); Total Bilirubin 0.8 mg/dL (0.2-1.3); Total Protein 5.9 g/dL (6.3-8.2)
[2021-04-30] MEDS: SODIUM CHLORIDE 0.9% 500 ML 500 ML IV SCH ×2 (12:58→16:32)
[2021-04-30] MEDS: ACETAMINOPHEN TAB 500 MG TAB PO STA ×2 (12:58→12:59)
[2021-04-30 13:01] LABS: INR 1.1 (<1.2); Prothrombin Time 11.4 sec (9.0-12.0)
--- NOTE | 2021-04-30 13:43 | XR ---
EXAMINATION TYPE: XR chest 2V DATE OF EXAM: 04/30/2021 COMPARISON: 04/26/2021 HISTORY: Shortness of breath TECHNIQUE: Frontal and lateral views of the chest are obtained. FINDINGS: Scattered senescent parenchymal changes noted. Hyperinflation compatible with COPD. Progressive airspace and groundglass infiltrates throughout both lung interiano. Heart size is stable. Mediastinal structures are stable and grossly unremarkable. No evidence for hilar prominence. Degenerative changes dorsal spine. IMPRESSION: 1. Progressive airspace and groundglass infiltrates throughout both lung interiano.
[2021-04-30] MEDS ORDERED: AZITHROMYCIN 500 MG in SODIUM CHLORIDE 0.9% 250 ML IVPB STA (14:27)
[2021-04-30] MEDS ORDERED: IPRATROPIUM-ALBUTEROL 3 ML NEB INHALATION PRN (14:27)
[2021-04-30] MEDS ORDERED: PNEUMONIA PROTOCOL UTILIZED 1 EACH MISC PO PRN (14:27)
--- NOTE | 2021-04-30 17:08 | P.CNPUL ---
History of Present Illness Consult date: 04/30/21 Reason for consult: dyspnea, COPD, hypoxemia, pneumonia History of present illness: 61-year-old male patient, who was readmitted after few days of being discharged from the hospital. The patient is coming in for shortness of breath. During his earlier evaluation, I saw his x-ray and the patient had residual interstitial changes in his lungs which I thought were improving compared to the previous pneumonia that the patient had a back in August 2020. At that time, the patient was intubated and he was on a mechanical ventilator. I did a computed tomography scan of the chest and it revealed pulmonary infiltrates from a previous pneumonia which had essentially been improving. The patient is a smoker. The patient has previous history of ventilator dependent respiratory failure back in August 2020. He has COPD. He has chronic back pain. His chronic depression and bipolar disorder and he smokes marijuana. The patient is not vaccinated for COVID 19. His COVID 19 testing was repeated and came back negative. He came into the emergency department with shortness of breath. Temperature was 99.5. Pulse ox was 77% on room air oxygen. He was placed on oxygen. White cell count was 16.9 with a hemoglobin of 14 and a platelet count of 61, BUN was 50 with a creatinine 0.8, platelet count was 116, normal LFTs, COVID 19 testing was negative, lactic acid level was at 1.6. The chest x-ray was repeated and the patient was found to have progression in the airspace disease and groundglass pulmonary infiltrates bilaterally. For now, the patient is on a combination of antibiotics. He is on a combination of Zosyn and Levaquin. Mother the patient was discharged home on Zithromax and a prednisone burst taper and he was asked to continue his tiotropium. Note that his earlier pro-calcitonin level April 26, showed a level of 0.16. This needs to be repeated. Note that the blood culture from 04/25/2021 and a sputum culture from 04/27/2021 and back both negative. Review of Systems Constitutional: Reports weakness Eyes: denies as per HPI, denies blurred vision, denies bulging eye, denies decreased vision, denies diplopia, denies discharge, denies dry eye, denies irritation, denies itching, denies pain, denies photophobia, denies loss of peripheral vision, denies loss of vision, denies tunnel vision/blind spots Ears: deny: decreased hearing, ear discharge, earache, tinnitus Ears, nose, mouth and throat: Reports as per HPI Cardiovascular: Reports dyspnea on exertion Pulmonary, cough and shortness of breath Gastrointestinal: Reports as per HPI Genitourinary: Reports as per HPI Musculoskeletal: Reports as per HPI Musculoskeletal: absent: ankle pain, ankle stiffness, ankle swelling, as per HPI, elbow pain, elbow stiffness, elbow swelling, foot pain, foot stiffness, foot swelling, hand pain, hand stiffness, hand swelling, hip pain, hip stiffness, hip swelling, knee pain, knee stiffness, knee swelling, shoulder pain, shoulder stiffness, shoulder swelling, wrist pain, wrist stiffness, wrist swelling Integumentary: Reports as per HPI Neurological: Reports as per HPI Psychiatric: Reports as per HPI Endocrine: Reports as per HPI Hematologic/Lymphatic: Reports as per HPI Allergic/Immunologic: Reports as per HPI Past Medical History Past Medical History: COPD, Pneumonia Additional Past Medical History / Comment(s): back pain History of Any Multi-Drug Resistant Organisms: None Reported Past Surgical History: Back Surgery Additional Past Surgical History / Comment(s): neck fusion,rt eye surgery, rt hand surgery Past Anesthesia/Blood Transfusion Reactions: No Reported Reaction Past Psychological History: Depression Smoking Status: Current every day smoker Past Alcohol Use History: Occasional Past Drug Use History: Marijuana - Past Family History Mother History Unknown: Yes Family Medical History: Myocardial Infarction ([place]) Additional Family Medical History / Comment(s): from [place] Medications and Allergies Home Medications Medication Instructions Recorded Confirmed Type Baclofen [Lioresal] 20 mg PO TID 01/14/20 04/30/21 History Citalopram Hydrobromide [CeleXA] 40 mg PO HS 01/14/20 04/30/21 History Albuterol Sulfate [Proair Hfa] 1 - 2 puff INHALATION RT-Q6H PRN 09/15/20 04/30/21 History Pantoprazole [Protonix] 40 mg PO AC-BRKFST #30 tablet. 09/24/20 04/30/21 Rx Tiotropium 2.5 Mcg/Puff [Spiriva 2 puff INHALATION RT-DAILY puff 09/24/20 Rx Respimat 2.5 Mcg] Furosemide [Lasix] 20 mg PO DAILY 04/25/21 04/30/21 History HYDROcodone/APAP 7.5-325MG [[place] 1 tab PO BID PRN 04/25/21 04/30/21 History 7.5-325] Azithromycin [Zithromax Z-pack (6 See Taper PO DIRECTED 04/26/21 04/30/21 History tabs)] predniSONE [Deltasone] See Taper PO DIRECTED 04/30/21 04/30/21 History Allergies Allergy/AdvReac Type Severity Reaction Status Date / Time potassium chloride Allergy Swelling Verified 04/30/21 13:12 [From Klor-Con] sacubitril [From Entresto] Allergy Unknown Verified 04/30/21 13:12 valsartan [From Entresto] Allergy Unknown Verified 04/30/21 13:12 Physical Exam Vitals: Vital Signs Temp Pulse Resp BP Pulse Ox 04/30/21 15:06 97.7 F 82 24 113/74 92 L 04/30/21 14:07 92 04/30/21 13:40 90 04/30/21 13:02 18 04/30/21 11:03 99.6 F 115 H 24 111/74 77 L Intake and Output 04/30/21 04/30/21 04/30/21 06:59 14:59 22:59 Other: Weight 66.678 kg The patient appeared well nourished and normally developed. Vital signs as documented. Patient is currently on 40 to Bactrim by nasal cannula. Head exam is unremarkable. No scleral icterus or corneal arcus noted. Neck is without jugular venous distension, thyromegaly, or carotid bruits. Carotid upstrokes are brisk bilaterally. Lungs are revealing The midline lower lung interiano bilater ally.. Cardiac exam reveals the PMI to be normally sized and situated. Rhythm is regular. First and second heart sounds normal. No murmurs, rubs or gallops. Abdominal exam reveals normal bowel sounds, no masses, no organomegaly and no aortic enlargement. Extremities are nonedematous and both femoral and pedal pulses are normal.Examination of the skin revealed no evidence of significant rashes, suspicious appearing nevi or other concerning lesions.Neurologically, the patient is awake and alert and the patient does not have any focal neurological deficit. Cranial nerves are essentially intact. Results - Laboratory Findings CBC and BMP: 04/30/21 12:09 04/30/21 12:09 PT/INR, D-dimer PT 11.4 sec (9.0-12.0) 04/30/21 12:09 INR 1.1 (<1.2) 04/30/21 12:09 Abnormal lab findings: Abnormal Labs 04/30/21 04/30/21 12:09 12:09 WBC 16.9 H Neutrophils # 15.0 H Potassium 3.0 L Glucose 116 H Total Protein 5.9 L Albumin 3.3 L - Diagnostic Findings Chest x-ray: image reviewed Assessment and Plan Plan: 1 acute bilateral pneumonia. The patient had limited ground glass pulmonary infiltrates during his early hospitalization this week. Nevertheless, I thought that these were residual pulmonary infiltration from his previous pneumonia. Based on the ongoing progression, I suspect a new infection here as the patient's pulmonary infiltration has progressed significantly over the past few days. He is presenting back with worsening shortness of breath and hypoxemia. COVID 19 testing is been negative. He is pro-calcitonin level during his earlier admission was mildly elevated. He was treated with Zithromax and prednisone burst taper. For now he is on 40s about 2 by nasal cannula, started on a combination of Zosyn and Levaquin and vancomycin. This could be also related to inhalation injury as the patient may potentially inhaling adenoma toxic agents as the patient had a similar presentation of bilateral pneumonia and respiratory failure back in August 2020 and at that time the cultures were negative including COVID 19. 2 acute COPD exacerbation secondary to above 3 previous history of ventilator dependent respiratory failure due to extensive bilateral pneumonia in August 2020 4 marijuana smoking 5 chronic anxiety/depression 6 chronic back pain Plan Check urine drug screen Continue bronchodilators and steroids Continue broad-spectrum antibiotic coverage including a combination of Zosyn and Levaquin and vancomycin repeat pro-calcitonin level Continue bronchodilators Continued IV Solu-Medrol Smoking cessation counseling Heparin subcu for DVT prophylaxis We'll continue to follow. Time with Patient: Greater than 30
[2021-04-30] MEDS: HYDROcodone/APAP 7.5-325MG 1 EACH TAB PO SCH ×2 (17:34→21:22)
[2021-04-30] MEDS: BACLOFEN 10 MG TAB PO PRN ×2 (17:34→22:41)
[2021-04-30] MEDS: methylPREDNISolone SOD SUCCI 125 MG/2 ML VIAL IV SCH (18:00)
[2021-04-30] MEDS: PIPERACILLIN-TAZOBACTAM 3.375 GM in SODIUM CHLORIDE 0.9% 100 ML IVPB SCH (18:01)
[2021-04-30] MEDS: VANCOMYCIN 1,250 MG in SODIUM CHLORIDE 0.9% 250 ML IVPB SCH (22:41)
[2021-05-01] MEDS: methylPREDNISolone SOD SUCCI 125 MG/2 ML VIAL IV SCH ×4 (01:17→19:34)
[2021-05-01] MEDS: PIPERACILLIN-TAZOBACTAM 3.375 GM in SODIUM CHLORIDE 0.9% 100 ML IVPB SCH ×3 (01:52→21:08)
[2021-05-01] MEDS: VANCOMYCIN 1,250 MG in SODIUM CHLORIDE 0.9% 250 ML IVPB SCH ×2 (05:25→19:33)
--- NOTE | 2021-05-01 06:41 | XR ---
EXAMINATION TYPE: XR chest 2V DATE OF EXAM: 05/01/2021 COMPARISON: 04/30/2021 HISTORY: Follow-up pneumonia TECHNIQUE: Frontal and lateral views of the chest are obtained. FINDINGS: There are diffuse airspace opacities which when allowing for differences in technique. Improved slightly in the interval. In particular the density of the opacity in the left midlung has d ecreased. The right lung is essentially unchanged. There is no large pleural effusion. There is no pneumothorax. Heart size is normal. The osseous structures are intact. IMPRESSION: Mild interval improvement in the left lung infiltrate as described above. The diffuse in filtrates in the right lung are unchanged.
[2021-05-01] MEDS: LEVOFLOXACIN 500MG-D5W PMX 500 MG in DEXTROSE/WATER 1 100ML.BAG IVPB SCH (09:11)
[2021-05-01] MEDS: BACLOFEN 10 MG TAB PO PRN (09:13)
[2021-05-01] MEDS: HYDROcodone/APAP 7.5-325MG 1 EACH TAB PO SCH ×2 (09:59→21:08)
[2021-05-01] MEDS: FUROSEMIDE 20 MG TAB PO SCH (11:32)
[2021-05-01] MEDS: CITALOPRAM HYDROBROMIDE 20 MG TAB PO SCH (11:32)
[2021-05-01] MEDS: PANTOPRAZOLE 40 MG TABLET PO SCH (11:32)
[2021-05-01] MEDS ORDERED: ACETAMINOPHEN TAB 325 MG TAB PO PRN (12:04)
--- NOTE | 2021-05-01 12:13 | P.HPIM ---
History of Present Illness H&P Date: 05/01/21 HISTORY OF PRESENT ILLNESS This is a 61-year-old male patient of Dr. Granger with past medical history of COPD, gastroesophageal reflux disease, chronic back pain, depression, active tobacco use and dependence. Patient was recently hospitalized 03/3012/05/2020 at which time he was treated for bilateral pneumonia and discharged home on Z- Nasir and prednisone taper. Patient states he was doing fine until suddenly he became much worse and his pulse ox dropped down to 62% at home. He states he was having a lot of coughing at home so bad that he developed a severe headache. He was complaining of shortness of breath at rest and with exertion. He denies having any fever or chills. Patient presented to [facility] emergency center. He was found to be afebrile, heart rate 115, respiratory rate 24, blood pressure 111/74 and pulse ox 77% on room air. Blood work revealed WBC 16.9. Potassium 3.0. Blood sugar 116. Pro-calcitonin 4.2. Costa virus PCR not detected. Chest x-ray reveals mild interval improvement in the left lung infiltrate. Diffuse infiltrates in the right lung are unchanged. Repeat chest x-ray 05/01 reveals mild interval improvement of the left lung infiltrates. Diffuse infiltrate in the right lung unchanged. Patient is seen today in the emergency center waiting for bed on the [facility] floor. Patient was seen yesterday by pulmonary medicine and is on Zosyn and Levaquin, vancomycin, bronchodilators and IV Solu-Medrol. Patient started on azithromycin, ceftriaxone, DuoNeb treatments and consult with pulmonary medicine. Urine drug screen and Legionella been ordered and not obtained. REVIEW OF SYSTEMS Constitutional: Reports fever, Reports chills, no night sweats. No weight change. No weakness, fatigue or lethargy. No daytime sleepiness. EENT: Reports headache. No blurred vision or double vision, no loss of vision. No loss of Hearing, no ringing in the ears, no dizziness. No nasal drainage or congestion. No epistaxis. No sore throat. Lungs: Reports shortness of breath, Reports cough, no sputum production. No wheezing. Cardiovascular: No chest pain, no lower extremity edema. No palpitations. No paroxysmal nocturnal dyspnea. No orthopnea. No lightheadedness or dizziness. No syncopal episodes. Abdominal: No abdominal pain. No nausea, vomiting. No diarrhea. No constipation. No bloody or tarry stools. No loss of appetite. Genitourinary: No dysuria, increased frequency, urgency. No urinary retention. Musculoskeletal: No myalgias. No muscle weakness, no gait dysfunction, no frequent falls. No back pain. No neck pain. Integumentary: No wounds, no lesions. No rash or pruritus. No unusual bruising. No change in hair or nails. Neurologic: No aphasia. No facial droop. No change in mentation. No head injury. No headache. No paralysis. No paresthesia. Psychiatric: No depression. No anxiety. No mood swings. Endocrine: No abnormal blood sugars. No weight change. SOCIAL HISTORY Patient is a smoker since he was 19 years of age currently at 5-6 cigarettes per day. He also smokes marijuana 1 joint daily. He does not have oxygen at home. He utilizes a nebulizer Y2 times per week. He lives at home with his ex-. He is currently on disability secondary to back pain. FAMILY HISTORY Mother at age 70 from myocardial infarction. Father at age 29 in a motor vehicle accident. Patient has no sisters. He has 2 brothers but he has no contact with them. Patient has 1 son with history of lymphoma and one son with no major medical problems. He has 3 daughters with no major medical probl ems. PHYSICAL EXAMINATION Gen: This is a 61-year-old male. He is resting on the ER stretcher and appears to be comfortable at rest. He is currently on 9 L nasal cannula O2. HEENT: Head is atraumatic, normocephalic. Pupils equal, round. Sclerae is anicteric. NECK: Supple. No JVD. No lymphadenopathy. No thyromegaly. LUNGS: Crackles bilaterally. No intercostal retractions. HEART: Regular rate and rhythm. No murmur. ABDOMEN: Soft. Bowel sounds are present. No masses. No tenderness. EXTREMITIES: No pedal edema. No calf tenderness. NEUROLOGICAL: Patient is awake, alert and oriented x3. Cranial nerves 2 through 12 are grossly intact. ASSESSMENT AND PLAN 1. Acute hypoxic respiratory failure secondary to Bilateral pneumonia and acute exacerbation of COPD. Continue DuoNeb treatments 4 times daily and as needed, Solu-Medrol 60 mg IV every 6 hours, Zosyn, vancomycin and Levaquin, consult with pulmonary medicine appreciated. 2. COPD exacerbation. Continue as in #1.. 3. Chronic back pain. Continue baclofen. 4. Gastroesophageal reflux disease. Continue Protonix. 5. Recurrent depression, generalized anxiety disorder. Continue Celexa 40 mg daily. 6. Chronic tobacco use and dependence. Nicotine patch. 7. Daily marijuana use. 8. History of ventilatory dependent respiratory failure due to bilateral pneumonia 08/2020. 9. DVT prophylaxis. Heparin subcu. 10. COVID-19 testing negative. Patient has been hospitalized during a pandemic. Patient will be admitted to the hospital for a minimum of 2 night stay. DISCHARGE PLAN Home. Impression and plan of care have been directed as dictated by the signing physician. Marybel Santoro nurse practitioner acting as scribe for signing p uma. Past Medical History Past Medical History: COPD, Pneumonia Additional Past Medical History / Comment(s): back pain History of Any Multi-Drug Resistant Organisms: None Reported Past Surgical History: Back Surgery Additional Past Surgical History / Comment(s): neck fusion,rt eye surgery, rt hand surgery Past Anesthesia/Blood Transfusion Reactions: No Reported Reaction Past Psychological History: Depression Smoking Status: Current every day smoker Past Alcohol Use History: Occasional Past Drug Use History: Marijuana - Past Family History Mother History Unknown: Yes Family Medical History: Myocardial Infarction ([place]) Additional Family Medical History / Comment(s): from [place] Medications and Allergies Home Medications Medication Instructions Recorded Confirmed Type Baclofen [Lioresal] 20 mg PO TID 01/14/20 04/30/21 History Citalopram Hydrobromide [CeleXA] 40 mg PO HS 01/14/20 04/30/21 History Albuterol Sulfate [Proair Hfa] 1 - 2 puff INHALATION RT-Q6H PRN 09/15/20 04/30/21 History Pantoprazole [Protonix] 40 mg PO AC-BRKFST #30 tablet. 09/24/20 04/30/21 Rx Tiotropium 2.5 Mcg/Puff [Spiriva 2 puff INHALATION RT-DAILY puff 09/24/20 04/30/21 Rx Respimat 2.5 Mcg] Furosemide [Lasix] 20 mg PO DAILY 04/25/21 04/30/21 History HYDROcodone/APAP 7.5-325MG [Ruskin 1 tab PO BID PRN 04/25/21 04/30/21 History 7.5-325] Azithromycin [Zithromax Z-pack (6 See Taper PO DIRECTED 04/26/21 04/30/21 History tabs)] predniSONE [Deltasone] See Taper PO DIRECTED 04/30/21 04/30/21 History Allergies Allergy/AdvReac Type Severity Reaction Status Date / Time potassium chloride Allergy Swelling Verified 04/30/21 13:12 [From Klor-Con] sacubitril [From Entresto] Allergy Unknown Verified 04/30/21 13:12 valsartan [From Entresto] Allergy Unknown Verified 04/30/21 13:12 Physical Exam Vitals: Vital Signs Temp Pulse Pulse Resp BP BP Pulse Ox 05/01/21 07:44 74 23 120/75 82 L 05/01/21 03:51 88 05/01/21 03:41 84 05/01/21 00:10 98.0 F 88 22 110/68 92 L 04/30/21 22:48 97.7 F 82 20 103/73 92 L 04/30/21 20:45 97.9 F 80 20 105/77 93 L 04/30/21 19:08 92 L 04/30/21 19:05 22 04/30/21 16:36 86 24 111/87 93 L 04/30/21 15:06 97.7 F 82 24 113/74 92 L 04/30/21 14:07 92 04/30/21 13:40 90 04/30/21 13:02 18 04/30/21 11:03 99.6 F 115 H 24 111/74 77 L Intake and Output 04/30/21 05/01/21 05/01/21 22:59 06:59 14:59 Intake Total 650 450 Output Total 400 Balance 650 50 Intake: Intake, IV Titration 250 450 Amount Azithromycin 500 mg In 250 Sodium Chloride 0.9% 250 ml @ 250 mls/hr IVPB DAILY@1600 [facility] Rx#: [id number] Piperacillin-Tazobactam 3 100 .375 gm In Sodium Chloride 0.9% 100 ml @ 200 mls/hr IVPB ONCE [facility] Rx#:[id number] Piperacillin-Tazobactam 3 100 .375 gm In Sodium Chloride 0.9% 100 ml @ 25 mls/hr IVPB Q8H [facility] Rx#: [id number] Vancomycin 1,250 mg In 250 Sodium Chloride 0.9% 250 ml @ 125 mls/hr IVPB Q8H [facility] Rx#:[id number] Oral 400 Output: Urine 400 Other: Voiding Method Urinal Weight 66.678 kg Results CBC & Chem 7: 04/30/21 12:09 04/30/21 12:09 Labs: Abnormal Lab Results - Last 24 Hours (Table) 04/30/21 04/30/21 04/30/21 Range/Units 12: 12: 15:54 WBC 16.9 H (3.8-10.6) k/uL Neutrophils # 15.0 H (1.3-7.7) k/uL Potassium 3.0 L (3.5-5.1) mmol/L Glucose 116 H (74-99) mg/dL Total Protein 5.9 L (6.3-8.2) g/dL Albumin 3.3 L (3.5-5.0) g/dL Procalcitonin 4.20 H (0.02-0.09) ng/mL Thrombosis Risk Factor Assmnt - Choose All That Apply Any of the Below Risk Factors Present?: Yes Each Factor Represents 1 point: Serious lung disease incl. pneumonia (< 1month) Other Risk Factors: No Other congenital or acquired thrombophilia - If yes, enter type in comment: No Thrombosis Risk Factor Assessment Total Risk Factor Score: 1 Thrombosis Risk Factor Assessment Level: Low Risk
[2021-05-01 12:36] LABS: Appearance,Urine Clear (Clear); Bilirubin,Urine Negative (Negative); Blood,Urine Negative (Negative); Color,Urine Yellow; Glucose,Urine (UA) Negative (Negative); Ketones,Urine Trace (Negative); Leukocyte Esterase,Urine Negative (Negative); Nitrite,Urine Negative (Negative); PH, Urine 6.5 (5.0-8.0); Protein,Urine 1+ (Negative); RBC,Urine 1 /hpf (0-5); Specific Gravity,Urine 1.026 (1.001-1.035); Urobilinogen,Urine <2.0 mg/dL (<2.0); WBC,Urine 1 /hpf (0-5)
[2021-05-01 12:46] LABS: Amphetamine Screen,Urine Not Detected (NotDetected); Barbiturate Screen,Urine Not Detected (NotDetected); Benzodiazepines Screen,Urine Detected (NotDetected); Cocaine Screen,Urine Not Detected (NotDetected); Methadone Screen, Urine Not Detected (NotDetected); Opiate Screen,Urine Detected (NotDetected); Oxycodone Screen, Urine Not Detected (NotDetected); Phencyclidine Screen,Urine Not Detected (NotDetected); Tricyclic Antidepressant,Urine Not Detected (NotDetected); Urn Cannabinoid Scrn Detected (NotDetected)
[2021-05-01] MEDS: IPRATROPIUM-ALBUTEROL 3 ML NEB INHALATION SCH ×2 (15:18→20:44)
[2021-05-01] MEDS ORDERED: AZITHROMYCIN 500 MG in SODIUM CHLORIDE 0.9% 250 ML IVPB SCH (16:00)
[2021-05-01] MEDS: BACLOFEN 10 MG TAB PO SCH ×2 (16:42→21:07)
--- NOTE | 2021-05-01 17:41 | P.PN ---
Subjective Progress Note Date: 05/01/21 05/01/2021, the patient is being seen for a follow-up. He remains in the emergency as an overflow. He has not moved to a regular bed yet. He is currently on oxygen at 9 L with a pulse ox of 93%. Note that the patient presented with bilateral pneumonia. He has leukocytosis. He had also an elevated pro-calcitonin level of 4.2 indicating an underlying bacterial infection. For now, the patient is on a combination of Levaquin, Zosyn and vancomycin. He is also on IV Solu-Medrol. A sputum sample has been collected and it has to be sent to the left for microbial analysis. Note that his Coumadin is COVID 19 testing was negative. Influenza A and B was negative. Urine drug screen was positive for opiates benzodiazepines and THC. Objective - Vital Signs Vital signs: Vital Signs Temp 98.0 F 05/01/21 00:10 Pulse 83 05/01/21 16:57 Resp 22 05/01/21 16:57 BP 133/89 05/01/21 16:57 Pulse Ox 93 L 05/01/21 16:57 Intake & Output 04/30/21 05/01/21 05/01/21 18:59 06:59 18:59 Intake Total 250 850 Output Total 400 Balance 250 450 Weight 66.678 kg 66.678 kg Intake: Intake, IV Titration 250 450 Amount Azithromycin 500 mg In 250 Sodium Chloride 0.9% 250 ml @ 250 mls/hr IVPB DAILY@1600 [facility] Rx#: [id number] Piperacillin-Tazobactam 3 100 .375 gm In Sodium Chloride 0.9% 100 ml @ 200 mls/hr IVPB ONCE [facility] Rx#:[id number] Piperacillin-Tazobactam 3 100 .375 gm In Sodium Chloride 0.9% 100 ml @ 25 mls/hr IVPB Q8H [facility] Rx#: [id number] Vancomycin 1,250 mg In 250 Sodium Chloride 0.9% 250 ml @ 125 mls/hr IVPB Q8H [facility] Rx#:[id number] Oral 400 Output: Urine 400 Other: Voiding Method Urinal - Exam The patient appeared well nourished and normally developed. Vital signs as documented. Patient is currently on 9 liters by nasal cannula. Head exam is unremarkable. No scleral icterus or corneal arcus noted. Neck is without jugular venous distension, thyromegaly, or carotid bruits. Carotid upstrokes are brisk bilaterally. Lungs are revealing The midline lower lung interiano bilaterally.. Cardiac exam reveals the PMI to be normally sized and situated. Rhythm is regular. First and second heart sounds normal. No murmurs, rubs or gallops. Abdominal exam reveals normal bowel sounds, no masses, no organomegaly and no aortic enlargement. Extremities are nonedematous and both femoral and pedal pulses are normal.Examination of the skin revealed no evidence of significant rashes, suspicious appearing nevi or other concerning lesions.Neurologically, the patient is awake and alert and the patient does not have any focal neurological deficit. Cranial nerves are essentially intact. - Labs CBC & Chem 7: 04/30/21 12:09 04/30/21 12:09 Labs: Abnormal Lab Results - Last 24 Hours (Table) 04/30/21 05/01/21 05/01/21 Range/Units 15:54 11:40 11:40 Procalcitonin 4.20 H (0.02-0.09) ng/mL Urine Protein 1+ H (Negative) Urine Ketones Trace H (Negative) Urine Opiates Screen Detected H (NotDetected) U Benzodiazepines Scrn Detected H (NotDetected) U Marijuana (THC) Screen Detected H (NotDetected) Microbiology - Last 24 Hours (Table) 04/30/21 12:09 Blood Culture - Preliminary Blood No Growth after 24 hours 04/30/21 12:09 Blood Culture - Preliminary Blood No Growth after 24 hours Assessment and Plan Plan: 1 acute bilateral pneumonia. The patient had limited ground glass pulmonary infiltrates during his early hospitalization this week. Nevertheless, I thought that these were residual pulmonary infiltration from his previous pneumonia. Based on the ongoing progression, I suspect a new infection here as the patient's pulmonary infiltration has progressed significantly over the past few days. He is presenting back with worsening shortness of breath and hypoxemia. COVID 19 testing is been negative. He is pro-calcitonin level during his earlier admission was mildly elevated. He was treated with Zithromax and prednisone burst taper. For now he is on 9 l by nasal cannula, started on a combination of Zosyn and Levaquin and vancomycin. This could be also related to inhalation injury as the patient may potentially inhaling adenoma toxic agents as the patient had a similar presentation of bilateral pneumonia and respiratory failure back in August 2020 and at that time the cultures were negative including COVID 19. highly suspect bacterial infection as the procal and the wbc count was high at the time of the admission 2 acute COPD exacerbation secondary to above 3 previous history of ventilator dependent respiratory failure due to extensive bilateral pneumonia in August 2020 4 marijuana smoking 5 chronic anxiety/depression 6 chronic back pain Plan Check urine drug screen noted Continue bronchodilators and steroids Continue broad-spectrum antibiotic coverage including a combination of Zosyn and Levaquin and vancomycin pro-calcitonin level is elevated Continue bronchodilators Continued IV Solu-Medrol sputum ssample to be send for cultures, and possible bronch if there is no microbial cultures Smoking cessation counseling Heparin subcu for DVT prophylaxis We'll continue to follow.
[2021-05-01] MEDS ORDERED: VANCOMYCIN TROUGH DUE 1 EACH MISC MISCELLANE ONE (21:00)
[2021-05-02] MEDS: methylPREDNISolone SOD SUCCI 125 MG/2 ML VIAL IV SCH ×5 (00:11→23:30)
[2021-05-02] MEDS: PIPERACILLIN-TAZOBACTAM 3.375 GM in SODIUM CHLORIDE 0.9% 100 ML IVPB SCH ×3 (01:42→17:54)
[2021-05-02] MEDS: VANCOMYCIN 1,250 MG in SODIUM CHLORIDE 0.9% 250 ML IVPB SCH ×3 (01:42→17:54)
[2021-05-02] MEDS ORDERED: IPRATROPIUM 0.5 MG/2.5 ML NEBU INHALATION SCH (08:00)
[2021-05-02] MEDS: IPRATROPIUM-ALBUTEROL 3 ML NEB INHALATION SCH ×4 (08:54→20:17)
[2021-05-02] MEDS: CITALOPRAM HYDROBROMIDE 20 MG TAB PO SCH (09:44)
[2021-05-02] MEDS: PANTOPRAZOLE 40 MG TABLET PO SCH (09:44)
[2021-05-02] MEDS: LEVOFLOXACIN 500MG-D5W PMX 500 MG in DEXTROSE/WATER 1 100ML.BAG IVPB SCH (09:44)
[2021-05-02] MEDS: BACLOFEN 10 MG TAB PO SCH ×3 (09:45→20:01)
[2021-05-02] MEDS: HYDROcodone/APAP 7.5-325MG 1 EACH TAB PO SCH ×2 (09:46→20:01)
[2021-05-02] MEDS: FUROSEMIDE 20 MG TAB PO SCH (09:46)
--- NOTE | 2021-05-02 13:42 | P.PN ---
Subjective Progress Note Date: 05/02/21 HISTORY OF PRESENT ILLNESS This is a 61-year-old male patient of Dr. Granger with past medical history of COPD, gastroesophageal reflux disease, chronic back pain, depression, active tobacco use and dependence. Patient was recently hospitalized 03/3012/05/2020 at which time he was treated for bilateral pneumonia and discharged home on Z- Nasir and prednisone taper. Patient states he was doing fine until suddenly he became much worse and his pulse ox dropped down to 62% at home. He states he was having a lot of coughing at home so bad that he developed a severe headache. He was complaining of shortness of breath at rest and with exertion. He denies having any fever or chills. Patient presented to [facility] emergency center. He was found to be afebrile, heart rate 115, respiratory rate 24, blood pressure 111/74 and pulse ox 77% on room air. Blood work revealed WBC 16.9. Potassium 3.0. Blood sugar 116. Pro-calcitonin 4.2. Costa virus PCR not detected. Chest x-ray reveals mild interval improvement in the left lung infiltrate. Diffuse infiltrates in the right lung are unchanged. Repeat chest x-ray 05/01 reveals mild interval improvement of the left lung infiltrates. Diffuse infiltrate in the right lung unchanged. Patient is seen today in the emergency center waiting [facility]. Patient was seen yesterday by pulmonary medicine and is on Zosyn and Levaquin, vancomycin, bronchodilators and IV Solu-Medrol. Patient started on azithromycin, ceftriaxone, DuoNeb treatments and consult with pulmonary medicine. Urine drug screen and Legionella been ordered and not obtained. 05/02: Patient has been afebrile, heart rate 65, blood pressure 133/79, pulse ox 95% on 4 L nasal cannula. Urine drug screen was positive for opiates, benzodiazepines and marijuana. Patient denies use of marijuana. Influenza a, influenza B, Legionella negative. Patient continues to have wheezing, Mucinex added for cough. Patient has been seen and followed by both her medicine. Sputum culture is in progress. Blood culture no growth at 24 hours. Plan is to wean oxygen therapy down today. Incentive spirometry added. REVIEW OF SYSTEMS Constitutional: Denies fever, denies chills, no night sweats. No weight change. No weakness, fatigue or lethargy. No daytime sleepiness. EENT: Reports headache. No blurred vision or double vision, no loss of vision. No loss of Hearing, no ringing in the ears, no dizziness. No nasal drainage or congestion. No epistaxis. No sore throat. Lungs: Reports shortness of breath, Reports cough, reports sputum production. No wheezing. Cardiovascular: No chest pain, no lower extremity edema. No palpitations. No paroxysmal nocturnal dyspnea. No orthopnea. No lightheadedness or dizziness. No syncopal episodes. Abdominal: No abdominal pain. No nausea, vomiting. No diarrhea. No constipation. No bloody or tarry stools. No loss of appetite. Genitourinary: No dysuria, increased frequency, urgency. No urinary retention. Musculoskeletal: No myalgias. No muscle weakness, no gait dysfunction, no frequent falls. No back pain. No neck pain. Integumentary: No wounds, no lesions. No rash or pruritus. No unusual bruising. No change in hair or nails. Neurologic: No aphasia. No facial droop. No change in mentation. No head injury. No headache. No paralysis. No paresthesia. Psychiatric: No depression. No anxiety. No mood swings. Endocrine: No abnormal blood sugars. No weight change. PHYSICAL EXAMINATION Gen: This is a 61-year-old male. He is resting in bed and appears to be comfortable at rest. He is currently on 4 L nasal cannula O2. HEENT: Head is atraumatic, normocephalic. Pupils equal, round. Sclerae is anicteric. NECK: Supple. No JVD. No lymphadenopathy. No thyromegaly. LUNGS: Crackles bilaterally. Bilateral expiratory wheezing. No intercostal retractions. HEART: Regular rate and rhythm. No murmur. ABDOMEN: Soft. Bowel sounds are present. No masses. No tenderness. EXTREMITIES: No pedal edema. No calf tenderness. NEUROLOGICAL: Patient is awake, alert and oriented x3. Cranial nerves 2 through 12 are grossly intact. ASSESSMENT AND PLAN 1. Acute hypoxic respiratory failure secondary to Bilateral pneumonia and acute exacerbation of COPD. Continue DuoNeb treatments 4 times daily and as needed, Solu-Medrol 60 mg IV every 6 hours, Zosyn, vancomycin and Levaquin, consult with pulmonary medicine appreciated. 2. COPD exacerbation. Continue as in #1.. 3. Chronic back pain. Continue baclofen. 4. Gastroesophageal reflux disease. Continue Protonix. 5. Recurrent depression, generalized anxiety disorder. Continue Celexa 40 mg daily. 6. Chronic tobacco use and dependence. Nicotine patch. 7. Daily marijuana use. 8. History of ventilatory dependent respiratory failure due to bilateral pneumonia 08/2020. 9. DVT prophylaxis. Heparin subcu. 10. COVID-19 testing negative. Patient has been hospitalized during a pandemic. DISCHARGE PLAN Home. Impression and plan of care have been directed as dictated by the signing physician. Marybel Santoro nurse practitioner acting as scribe for signing physician. Objective - Vital Signs Vital signs: Vital Signs Temp 97.5 F L 05/02/21 05:39 Pulse 64 05/02/21 05:39 Resp 17 05/02/21 05:39 BP 110/76 05/02/21 05:39 Pulse Ox 99 05/02/21 05:39 Intake & Output 05/01/21 05/02/21 05/02/21 18:59 06:59 18:59 Intake Total 236 Output Total 680 Balance -680 236 Intake: Oral 236 Output: Urine 680 Other: Voiding Method Urinal # Voids 1 2 # Bowel Movements 0 - Labs CBC & Chem 7: 04/30/21 12:09 04/30/21 12:09 Labs: Abnormal Lab Results - Last 24 Hours (Table) 05/01/21 05/01/21 Range/Units 11:40 11:40 Urine Protein 1+ H (Negative) Urine Ketones Trace H (Negative) Urine Opiates Screen Detected H (NotDetected) U Benzodiazepines Scrn Detected H (NotDetected) U Marijuana (THC) Screen Detected H (NotDetected) Microbiology - Last 24 Hours (Table) 04/30/21 18:45 Gram Stain - Preliminary Sputum Sputum Culture - Preliminary 04/30/21 12:09 Blood Culture - Preliminary Blood No Growth after 24 hours 04/30/21 12:09 Blood Culture - Preliminary Blood No Growth after 24 hours
[2021-05-02] MEDS: guaiFENesin 600 MG TABLET.ER PO SCH ×2 (14:28→20:02)
[2021-05-02] MEDS: FUROSEMIDE 10 MG/ML 4 ML VIAL IV SCH ×2 (16:34→23:30)
[2021-05-02] MEDS ORDERED: VANCOMYCIN TROUGH DUE 1 EACH MISC MISCELLANE ONE (17:00)
--- NOTE | 2021-05-02 18:35 | P.PN ---
Subjective Progress Note Date: 05/02/21 Principal diagnosis: Pneumonia, shortness of breath On 05/02/2021 patient seen in follow-up on medical surgical floor. He is awake and alert, in no acute distress, he is currently on 2 L of oxygen pulse ox is 94%, his FiO2 has been weaned down from 8 L of oxygen that he was on earlier, afebrile, hemodynamically he is stable, occasional cough, no phlegm production, denies any chest discomfort, his last chest x-ray from yesterday showing mild interval improvement in the left lung infiltrates, and diffuse infiltrates at the right lung are unchanged. Patient is currently on a combination of antibiotics with Levaquin, Zosyn and vancomycin. No new blood work today. His proBNP came back at 5530, follow pro-calcitonin is pending, his initial pro- calcitonin the day before yesterday came back elevated at 4.20. Urinalysis showed no evidence of urinary tract infection. Urine drug screen showed opiates, benzodiazepines and marijuana. COVID-19 PCR was negative, influenza and B were negative, Legionella urine antigen were negative. Objective - Vital Signs Vital signs: Vital Signs Temp 97.9 F 05/02/21 14:00 Pulse 76 05/02/21 16:55 Resp 16 05/02/21 14:00 BP 114/72 05/02/21 14:00 Pulse Ox 94 L 05/02/21 14:00 Intake & Output 05/01/21 05/02/21 05/02/21 18:59 06:59 18:59 Intake Total 472 Output Total 680 900 Balance -680 -428 Intake: Oral 472 Output: Urine 680 900 Other: Voiding Method Urinal Urinal # Voids 1 2 # Bowel Movements 0 - Exam GENERAL EXAM: Alert, very pleasant, 61-year-old white male, continues liters of oxygen and the pulse ox 94% comfortable in no apparent distress. HEAD: Normocephalic/atraumatic. EYES: Normal reaction of pupils, equal size. Conjunctiva pink, sclera white. NOSE: Clear with pink turbinates. THROAT: No erythema or exudates. NECK: No masses, no JVD, no thyroid enlargement, no adenopathy. CHEST: No chest wall deformity. Symmetrical expansion. LUNGS: Equal air entry with bibasilar crackles CVS: Regular rate and rhythm, normal S1 and S2, no gallops, no murmurs, no rubs ABDOMEN: Soft, nontender. No hepatosplenomegaly, normal bowel sounds, no g uarding or rigidity. EXTREMITIES: No clubbing, no edema, no cyanosis, 2+ pulses and upper and lower extremities. MUSCULOSKELETAL: Muscle strength and tone normal. SPINE: No scoliosis or deformity SKIN: No rashes CENTRAL NERVOUS SYSTEM: Alert and oriented -3. No focal deficits, tone is normal in all 4 extremities. PSYCHIATRIC: Alert and oriented -3. Appropriate affect. Intact judgment and insight. - Labs CBC & Chem 7: 04/30/21 12:09 04/30/21 12:09 Labs: Microbiology - Last 24 Hours (Table) 04/30/21 12:09 Blood Culture - Preliminary Blood No Growth after 48 hours 04/30/21 12:09 Blood Culture - Preliminary Blood No Growth after 48 hours 04/30/21 18:45 Gram Stain - Preliminary Sputum Sputum Culture - Preliminary Assessment and Plan Plan: Assessment: #1. Acute bilateral pneumonia, COVID-19 PCR, influenza A and B and Legionella urine antigen was negative. Patient had elevated pro calcitonin suggesting acute bacterial pneumonia. Patient is currently covered with a combination of Levaquin, Zosyn and vancomycin. #2. Acute hypoxic respiratory failure related to the above #3. A component of fluid overload, acute exacerbation of systolic CHF with previously documented left ventricular systolic function of 40-45% #4. Previous episodes of pneumonia, and acute hypoxic respiratory failure related intubation and mechanical ventilator support. Most recently in August 2020 when aspiration pneumonia was suspected #5. Marijuana smoking #6. Chronic anxiety/depression #7. Chronic back pain Plan: Continue broad-spectrum antibiotics Chest x-ray has been reviewed and the possibility of pulmonary edema and fluid overload was also noted ProBNP came back elevated supporting possibility of fluid overload and acute exacerbation of CHF We will diurese the patient will place the patient on Lasix 40 mg every 8 hours [id number] Obtain follow-up chest x-ray tomorrow Obtain sputum sample Obtain follow-up will calcitonin level Clinically patient is stable, down to 2 L He is hoping to be able to go home tomorrow We will consider his discharge home tomorrow as long as there is improvement on the chest x-ray and further clinical improvement I performed a history & physical examination of the patient and discussed their management with my nurse practitioner, Chaparrita Eubanks. I reviewed the nurse practitioner's note and agree with the documented findings and plan of care. Lung sounds are positive for diffuse wheezes throughout the lung interiano. The findings and the impression was discussed with the patient. I attest to the do cumentation by the nurse practitioner. Time with Patient: Less than 30
[2021-05-02] MEDS ORDERED: FUROSEMIDE 20 MG TAB PO SCH (21:00)
[2021-05-03] MEDS: PIPERACILLIN-TAZOBACTAM 3.375 GM in SODIUM CHLORIDE 0.9% 100 ML IVPB SCH ×3 (02:09→22:34)
[2021-05-03] MEDS: VANCOMYCIN 1,250 MG in SODIUM CHLORIDE 0.9% 250 ML IVPB SCH ×2 (02:09→10:29)
[2021-05-03] MEDS: methylPREDNISolone SOD SUCCI 125 MG/2 ML VIAL IV SCH ×4 (05:33→22:34)
[2021-05-03] MEDS: HYDROcodone/APAP 7.5-325MG 1 EACH TAB PO PRN ×3 (05:37→17:56)
[2021-05-03] MEDS: CITALOPRAM HYDROBROMIDE 20 MG TAB PO SCH (07:26)
[2021-05-03] MEDS: LEVOFLOXACIN 500 MG TAB PO SCH (07:26)
[2021-05-03] MEDS: PANTOPRAZOLE 40 MG TABLET PO SCH (07:26)
[2021-05-03] MEDS: guaiFENesin 600 MG TABLET.ER PO SCH ×2 (07:26→20:57)
[2021-05-03] MEDS: HYDROcodone/APAP 7.5-325MG 1 EACH TAB PO SCH ×2 (07:27→20:58)
[2021-05-03] MEDS: BACLOFEN 10 MG TAB PO SCH ×3 (07:27→20:58)
--- NOTE | 2021-05-03 08:14 | XR ---
EXAMINATION TYPE: XR chest 1V DATE OF EXAM: 05/03/2021 COMPARISON: 05/01/2021 INDICATION: Congestive heart failure TECHNIQUE: Single frontal view of the chest is obtained. FINDINGS: The heart size is normal. The pulmonary vasculature is prominent. Mild diffuse increased lung markings are present bilaterally. Findings have similar distribution. Old cervical fusion is evident. IMPRESSION: 1. Diffuse bilateral increased lung markings can be compatible with pulmonary edema or atypical pneum onia. Continued Follow-up is recommended.
[2021-05-03] MEDS: IPRATROPIUM-ALBUTEROL 3 ML NEB INHALATION SCH ×4 (08:51→19:47)
[2021-05-03] MEDS ORDERED: VANCOMYCIN TROUGH DUE 1 EACH MISC MISCELLANE ONE (09:00)
--- NOTE | 2021-05-03 10:12 | P.PN ---
Subjective Progress Note Date: 05/03/21 Principal diagnosis: Pneumonia, shortness of breath On 05/02/2021 patient seen in follow-up on medical surgical floor. He is awake and alert, in no acute distress, he is currently on 2 L of oxygen pulse ox is 94%, his FiO2 has been weaned down from 8 L of oxygen that he was on earlier, afebrile, hemodynamically he is stable, occasional cough, no phlegm production, denies any chest discomfort, his last chest x-ray from yesterday showing mild interval improvement in the left lung infiltrates, and diffuse infiltrates at the right lung are unchanged. Patient is currently on a combination of antibiotics with Levaquin, Zosyn and vancomycin. No new blood work today. His proBNP came back at 5530, follow pro-calcitonin is pending, his initial pro- calcitonin the day before yesterday came back elevated at 4.20. Urinalysis showed no evidence of urinary tract infection. Urine drug screen showed opiates, benzodiazepines and marijuana. COVID-19 PCR was negative, influenza and B were negative, Legionella urine antigen were negative. On 05/03/2021 patient seen in follow-up on medical surgical floor, he was started on IV diuretics yesterday and is currently on Lasix 40 mg every 8 hours, he is in negative net fluid balance of 428 mL net fluid balance over the last 24 hours, he states he has been get not to the bathroom, and he is able to tolerate activity better, he is less short of breath with exertion. He still has a mild conversational dyspnea, his oxygen, his pulse ox is 96%, his been afebrile overnight. Today's chest x-ray still shows some mild increased lung markings bilaterally, compatible with pulmonary edema or atypical pneumonia, pro- calcitonin on today's labs is improving and is down to 1.36. Lung sounds are diminished, with mild bibasilar crackles, patient was tested for legionella urine antigen was found to be negative, he remains on Levaquin and vancomycin for broad-spectrum antibiotic coverage. Objective - Vital Signs Vital signs: Vital Signs Temp 97.8 F 05/03/21 08:00 Pulse 80 05/03/21 09:09 Resp 18 05/03/21 08:00 BP 136/83 05/03/21 08:00 Pulse Ox 96 05/03/21 08:00 Intake & Output 05/02/21 05/03/21 05/03/21 18:59 06:59 18:59 Intake Total 472 Output Total 900 Balance -428 Intake: Oral 472 Output: Urine 900 Other: Voiding Method Urinal # Voids 3 - Exam GENERAL EXAM: Alert, very pleasant, 61-year-old white male, continues on 2 liters of oxygen and the pulse ox 94% comfortable in no apparent distress. HEAD: Normocephalic/atraumatic. EYES: Normal reaction of pupils, equal size. Conjunctiva pink, sclera white. NOSE: Clear with pink turbinates. THROAT: No erythema or exudates. NECK: No masses, no JVD, no thyroid enlargement, no adenopathy. CHEST: No chest wall deformity. Symmetrical expansion. LUNGS: Equal air entry with bibasilar crackles CVS: Regular rate and rhythm, normal S1 and S2, no gallops, no murmurs, no rubs ABDOMEN: Soft, nontender. No hepatosplenomegaly, normal bowel sounds, no guarding or rigidity. EXTREMITIES: No clubbing, no edema, no cyanosis, 2+ pulses and upper and lower extremities. MUSCULOSKELETAL: Muscle strength and tone normal. SPINE: No scoliosis or deformity SKIN: No rashes CENTRAL NERVOUS SYSTEM: Alert and oriented -3. No focal deficits, tone is normal in all 4 extremities. PSYCHIATRIC: Alert and oriented -3. Appropriate affect. Intact judgment and insight. - Labs CBC & Chem 7: 04/30/21 12:09 04/30/21 12:09 Labs: Abnormal Lab Results - Last 24 Hours (Table) 05/02/21 05/02/21 Range/Units 18:07 18:07 Procalcitonin 1.36 H (0.02-0.09) ng/mL Vancomycin Trough 34.8 H* ug/mL Microbiology - Last 24 Hours (Table) 04/30/21 12:09 Blood Culture - Preliminary Blood No Growth after 48 hours 04/30/21 12:09 Blood Culture - Preliminary Blood No Growth after 48 hours 04/30/21 18:45 Gram Stain - Preliminary Sputum Sputum Culture - Preliminary Assessment and Plan Plan: Assessment: #1. Acute bilateral pneumonia, COVID-19 PCR, influenza A and B and Legionella urine antigen was negative. Patient had elevated pro calcitonin suggesting acute bacterial pneumonia. Patient is currently covered with a combination of Levaquin, Zosyn and vancomycin. #2. Acute hypoxic respiratory failure related to the above #3. A component of fluid overload, acute exacerbation of systolic CHF with previously documented left ventricular systolic function of 40-45% #4. Previous episodes of pneumonia, and acute hypoxic respiratory failure related intubation and mechanical ventilator support. Most recently in August 2020 when aspiration pneumonia was suspected #5. Marijuana smoking #6. Chronic anxiety/depression #7. Chronic back pain Plan: Awaiting lab work from today, CBC and CMP We started patient on IV diuretics yesterday Follow-up chest x-ray today still shows mild pulmonary vasculature prominence, pulmonary edema We'll continue with IV diuretics for another 24 hours We'll check I's and renal profile We'll continue broad-spectrum antibiotics Pro calcitonin level is improving, however still elevated We'll continue to follow his clinical course Increase activity as tolerated I performed a history & physical examination of the patient and discussed their management with my nurse practitioner, Chaparrita Eubanks. I reviewed the nurse practitioner's note and agree with the documented findings and plan of care. Lung sounds are positive for diffuse wheezes throughout the lung interiano. The findings and the impression was discussed with the patient. I attest to the documentation by the nurse practitioner. Time with Patient: Less than 30
[2021-05-03 10:44] LABS: ALT 16 U/L (4-49); AST 18 U/L (17-59); African American GFR (CKD) >90 (>60 ml/min/1.73 sqM); Albumin 3.4 g/dL (3.5-5.0); Albumin/Globulin Ratio 1.2; Alkaline Phosphatase 71 U/L (38-126); Anion Gap 8 mmol/L; Blood Urea Nitrogen 32 mg/dL (9-20); Calcium 8.4 mg/dL (8.4-10.2); Carbon Dioxide 33 mmol/L (22-30); Chloride 99 mmol/L (98-107); Globulin 2.8 g/dL; Glucose 150 mg/dL (74-99); Non-African American GFR(CKD) 80 (>60 ml/min/1.73 sqM); Potassium 2.9 mmol/L (3.5-5.1); Sodium 140 mmol/L (137-145); Total Bilirubin 0.7 mg/dL (0.2-1.3); Total Protein 6.2 g/dL (6.3-8.2)
[2021-05-03] MEDS ORDERED: VANCOMYCIN IV PER PHARMACY 1 EACH MISC MISCELLANE PRN (11:02)
[2021-05-03] MEDS ORDERED: Potassium Replacement Protocol 1 EACH MISC MISCELLANE PRN (11:23)
[2021-05-03] MEDS ORDERED: POTASSIUM CHLORIDE ER 20 MEQ TAB.ER PO SCH (12:00)
[2021-05-03 12:52] LABS: Basophils # (A) 0.1 k/uL (0-0.2); Basophils % (A) 0 %; Eosinophils % (A) 0 %; HCT 39.3 % (39.0-53.0); HGB 13.2 gm/dL (13.0-17.5); Lymphocytes # (A) 0.5 k/uL (1.0-4.8); Lymphocytes % (A) 5 %; MCH 29.7 pg (25.0-35.0); MCHC 33.6 g/dL (31.0-37.0); MCV 88.5 fL (80.0-100.0); Monocytes # (A) 0.3 k/uL (0-1.0); Monocytes % (A) 2 %; Neutrophils # (A) 10.2 k/uL (1.3-7.7); Neutrophils % (A) 92 %; Platelet Count 235 k/uL (150-450); RBC 4.44 m/uL (4.30-5.90); RDW 14.2 % (11.5-15.5); WBC 11.1 k/uL (3.8-10.6)
[2021-05-03] MEDS: POTASSIUM CHLORIDE 10 MEQ in WATER FOR INJECTION 1 100ML.BAG IVPB SCH ×4 (13:17→20:07)
[2021-05-03] MEDS: POTASSIUM BICARBONATE/CIT AC 20 MEQ TABLET.EFF PO SCH ×3 (13:17→16:47)
[2021-05-03] MEDS: FUROSEMIDE 10 MG/ML 4 ML VIAL IV SCH ×2 (13:18→16:49)
--- NOTE | 2021-05-03 16:21 | P.PN ---
Subjective Progress Note Date: 05/03/21 HISTORY OF PRESENT ILLNESS This is a 61-year-old male patient of Dr. Granger with past medical history of COPD, gastroesophageal reflux disease, chronic back pain, depression, active tobacco use and dependence. Patient was recently hospitalized 03/3012/05/2020 at which time he was treated for bilateral pneumonia and discharged home on Z- Nasir and prednisone taper. Patient states he was doing fine until suddenly he became much worse and his pulse ox dropped down to 62% at home. He states he was having a lot of coughing at home so bad that he developed a severe headache. He was complaining of shortness of breath at rest and with exertion. He denies having any fever or chills. Patient presented to [facility] emergency center. He was found to be afebrile, heart rate 115, respiratory rate 24, blood pressure 111/74 and pulse ox 77% on room air. Blood work revealed WBC 16.9. Potassium 3.0. Blood sugar 116. Pro-calcitonin 4.2. [place] virus PCR not detected. Chest x-ray reveals mild interval improvement in the left lung infiltrate. Diffuse infiltrates in the right lung are unchanged. Repeat chest x-ray 05/01 reveals mild interval improvement of the left lung infiltrates. Diffuse infiltrate in the right lung unchanged. Patient is seen today in [facility] emergency [facility] Patient was seen yesterday by pulmonary medicine and is on Zosyn and Levaquin, vancomycin, bronchodilators and IV Solu-Medrol. Patient started on azithromycin, ceftriaxone, DuoNeb treatments and consult with pulmonary medicine. Urine drug screen and Legionella been ordered and not obtained. 05/02: Patient has been afebrile, heart rate 65, blood pressure 133/79, pulse ox 95% on 4 L nasal cannula. Urine drug screen was positive for opiates, benzodiazepines and marijuana. Patient denies use of marijuana. Influenza a, influenza B, Legionella negative. Patient continues to have wheezing, Mucinex added for cough. Patient has been seen and followed by both her medicine. Sputum culture is in progress. Blood culture no growth at 24 hours. Plan is to wean oxygen therapy down today. Incentive spirometry added. 05/03 Patient has been afebrile, respiratory rate 19 pulse 81 and oxygen saturation 99% on 2 L high flow. Patient labs are reviewed patient had leukocytosis of 11.1 potassium 2.9 BUN 32 creatinine 1.02 bicarb 33 proBNP 5530. Pro-calcitonin is improved to 1.36 from 4.2. Patient denies any cough or congestion. He is short of breath with minimal movement. Patient currently does remain on triple antibiotics including Zosyn and levofloxacin and vancomycin. Sputum cultures showing Nilda albicans blood cultures are negative. Continue IV diuresis for another 24 hours. We'll reduce patient Solu-Medrol to 60 every 8 today. Vancomycin trough was elevated. Discontinue vancomycin as sputum culture has resulted REVIEW OF SYSTEMS Constitutional: Denies fever, denies chills, no night sweats. No weight change. No weakness, fatigue or lethargy. No daytime sleepiness. EENT: Reports headache. No blurred vision or double vision, no loss of vision. No loss of Hearing, no ringing in the ears, no dizziness. No nasal drainage or congestion. No epistaxis. No sore throat. Lungs: Reports shortness of breath, improved cough, no sputum production. No wheezing. Cardiovascular: No chest pain, no lower extremity edema. No palpitations. No paroxysmal nocturnal dyspnea. No orthopnea. No lightheadedness or dizziness. No syncopal episodes. Abdominal: No abdominal pain. No nausea, vomiting. No diarrhea. No constipation. No bloody or tarry stools. No loss of appetite. Genitourinary: No dysuria, increased frequency, urgency. No urinary retention. Musculoskeletal: No myalgias. No muscle weakness, no gait dysfunction, no frequent falls. No back pain. No neck pain. Integumentary: No wounds, no lesions. No rash or pruritus. No unusual bruising. No change in hair or nails. Neurologic: No aphasia. No facial droop. No change in mentation. No head injury. No headache. No paralysis. No paresthesia. Psychiatric: No depression. No anxiety. No mood swings. Endocrine: No abnormal blood sugars. No weight change. PHYSICAL EXAMINATION Gen: This is a 61-year-old male. He is resting in bed and appears to be comfortable at rest. He is currently on 4 L nasal cannula O2. HEENT: Head is atraumatic, normocephalic. Pupils equal, round. Sclerae is anicteric. NECK: Supple. No JVD. No lymphadenopathy. No thyromegaly. LUNGS: Crackles bilaterally. Bilateral expiratory wheezing. No intercostal retractions. HEART: Regular rate and rhythm. No murmur. ABDOMEN: Soft. Bowel sounds are present. No masses. No tenderness. EXTREMITIES: No pedal edema. No calf tenderness. NEUROLOGICAL: Patient is awake, alert and oriented x3. Cranial nerves 2 through 12 are grossly intact. ASSESSMENT AND PLAN 1. Acute hypoxic respiratory failure secondary to Bilateral pneumonia and acute exacerbation of COPD. Continue DuoNeb treatments 4 times daily and as needed Solu-Medrol reduced to 60 IV every 8, Nahum Lundberg, consult with pulmonary medicine appreciated. Elevated random trough. Discontinue vancomycin. 2. Acute systolic CHF exacerbation Lasix IV every 8 reduced to IV every 12. Continue tapering off oxygen 3. COPD exacerbation. Continue as in #1.. 4. Acute on Chronic back pain. Continue baclofen. PT OT consult for possible rehab placement 5. Gastroesophageal reflux disease. Continue Protonix. 6. Recurrent depression, generalized anxiety disorder. Continue Celexa 40 mg daily. 7. Chronic tobacco use and dependence. Nicotine patch. 8. Daily marijuana use. 9. History of ventilatory dependent respiratory failure due to bilateral pneumonia 08/2020. 10. DVT prophylaxis. Heparin subcu. 11. COVID-19 testing negative. Patient has been hospitalized during a pandemic. DISCHARGE PLAN PT OT Objective - Vital Signs Vital signs: Vital Signs Temp 97.8 F 05/03/21 08:00 Pulse 80 05/03/21 09:09 Resp 17 05/03/21 08:00 BP 136/83 05/03/21 08:00 Pulse Ox 96 05/03/21 08:00 Intake & Output 05/02/21 05/03/21 05/03/21 18:59 06:59 18:59 Intake Total 472 Output Total 900 Balance -428 Intake: Oral 472 Output: Urine 900 Other: Voiding Method Urinal # Voids 3 - Labs CBC & Chem 7: 05/03/21 09:32 05/03/21 09:32 Labs: Abnormal Lab Results - Last 24 Hours (Table) 05/02/21 05/02/21 05/03/21 Range/Units 18:07 18:07 09:32 Potassium (3.5-5.1) mmol/L Carbon Dioxide (22-30) mmol/L BUN (9-20) mg/dL Glucose (74-99) mg/dL Total Protein (6.3-8.2) g/dL Albumin (3.5-5.0) g/dL Procalcitonin 1.36 H (0.02-0.09) ng/mL Vancomycin Trough 34.8 H* 31.9 H* ug/mL 05/03/21 Range/Units 09:32 Potassium 2.9 L (3.5-5.1) mmol/L Carbon Dioxide 33 H (22-30) mmol/L BUN 32 H (9-20) mg/dL Glucose 150 H (74-99) mg/dL Total Protein 6.2 L (6.3-8.2) g/dL Albumin 3.4 L (3.5-5.0) g/dL Procalcitonin (0.02-0.09) ng/mL Vancomycin Trough ug/mL Microbiology - Last 24 Hours (Table) 04/30/21 12:09 Blood Culture - Preliminary Blood No Growth after 48 hours 04/30/21 12:09 Blood Culture - Preliminary Blood No Growth after 48 hours 04/30/21 18:45 Gram Stain - Preliminary Sputum Sputum Culture - Preliminary
[2021-05-03] MEDS ORDERED: FUROSEMIDE 10 MG/ML 4 ML VIAL IV SCH (17:00)
[2021-05-04] MEDS: PIPERACILLIN-TAZOBACTAM 3.375 GM in SODIUM CHLORIDE 0.9% 100 ML IVPB SCH (05:38)
[2021-05-04] MEDS: IPRATROPIUM-ALBUTEROL 3 ML NEB INHALATION SCH ×3 (07:27→15:52)
[2021-05-04 08:12] LABS: Basophils % (A) 0 %; Eosinophils % (A) 0 %; HCT 37.7 % (39.0-53.0); HGB 12.5 gm/dL (13.0-17.5); Lymphocytes # (A) 0.5 k/uL (1.0-4.8); Lymphocytes % (A) 6 %; MCV 90.8 fL (80.0-100.0); Mean Platelet Volume 8.7; Monocytes # (A) 0.3 k/uL (0-1.0); Monocytes % (A) 3 %; Neutrophils # (A) 8.3 k/uL (1.3-7.7); Neutrophils % (A) 90 %; Platelet Count 270 k/uL (150-450); RBC 4.16 m/uL (4.30-5.90); RDW 13.5 % (11.5-15.5); WBC 9.2 k/uL (3.8-10.6)
[2021-05-04 08:21] LABS: ALT 16 U/L (4-49); AST 15 U/L (17-59); African American GFR (CKD) >90 (>60 ml/min/1.73 sqM); Albumin/Globulin Ratio 1.2; Alkaline Phosphatase 61 U/L (38-126); Anion Gap 4 mmol/L; Blood Urea Nitrogen 25 mg/dL (9-20); Calcium 8.4 mg/dL (8.4-10.2); Carbon Dioxide 32 mmol/L (22-30); Chloride 104 mmol/L (98-107); Globulin 2.6 g/dL; Glucose 151 mg/dL (74-99); Non-African American GFR(CKD) >90 (>60 ml/min/1.73 sqM); Potassium 3.6 mmol/L (3.5-5.1); Sodium 140 mmol/L (137-145); Total Bilirubin 0.5 mg/dL (0.2-1.3); Total Protein 5.6 g/dL (6.3-8.2)
[2021-05-04] MEDS ORDERED: FUROSEMIDE 10 MG/ML 4 ML VIAL IV SCH (09:00)
[2021-05-04] MEDS: CITALOPRAM HYDROBROMIDE 20 MG TAB PO SCH (09:18)
[2021-05-04] MEDS: HYDROcodone/APAP 7.5-325MG 1 EACH TAB PO SCH ×2 (09:18→15:52)
[2021-05-04] MEDS: PANTOPRAZOLE 40 MG TABLET PO SCH (09:18)
[2021-05-04] MEDS: LEVOFLOXACIN 500 MG TAB PO SCH (09:18)
[2021-05-04] MEDS: BACLOFEN 10 MG TAB PO SCH ×2 (09:18→15:52)
[2021-05-04] MEDS: methylPREDNISolone SOD SUCCI 125 MG/2 ML VIAL IV SCH (09:18)
[2021-05-04] MEDS: guaiFENesin 600 MG TABLET.ER PO SCH (09:18)
--- NOTE | 2021-05-04 09:54 | ECHOF ---
Referral Reason:dyspnea MEASUREMENTS -------- HEIGHT: 177.8 cm WEIGHT: 66.7 kg BP: IVSd: 0.8 cm (0.6 - 1.1) LVIDd: 4.3 cm (3.9 - 5.3) LVPWd: 0.9 cm (0.6 - 1.1) EDV(Teich): 84 ml IVSs: 2.0 cm LVIDs: 1.6 cm LVPWs: 1.7 cm %IVS Thck: 149 % ESV(Teich): 7 ml EF(Teich): 91 % %FS: 63 % SV(Teich): 77 ml RVIDd: 2.7 cm (< 3.3) IVC: 11.94 mm LALs A4C: 5.6 cm LAAs A4C: 16.0 cm LAESV A-L A4C: 39 ml LAESV MOD A4C: 35 ml LALs A2C: 4.4 cm LAAs A2C: 11.8 cm LAESV A-L A2C: 27 ml LAESV MOD A2C: 25 ml LAESV(A-L): 37 ml LAESV Index (A-L): 20.00 ml/m Ao Diam: 3.1 cm (2.0 - 3.7) LA Diam: 2.8 cm (2.7 - 3.8) AV Cusp: 2.0 cm (1.5 - 2.6) EPSS: 1.0 cm MV E David: 1.02 m/s MV DecT: 218 ms MV Dec [place]: 4.7 m/s MV A David: 0.61 m/s MV E/A Ratio: 1.67 MV PHT: 63 ms MR Vmax: 1.10 m/s MR maxP.86 mmHg AV Vmax: 1.18 m/s AV maxP.57 mmHg TR Vmax: 2.56 m/s TR maxP.22 mmHg RAP: 5.00 mmHg RVSP: 31.22 mmHg MV EF SLOPE: 112.84 mm/s (70 - 150) MV EXCURSION: 12.49 mm (> 18.000) FINDINGS -------- This was a technically good study. The left ventricular size is normal. Left ventricular wall thickness is normal. Overall left vent ricular systolic function is normal with, an EF between 55 - 60 %. The diastolic filling pattern is normal for the age of the patient 8.88. The right ventricle is normal in size. The left atrial size is normal. Normal LA size by volume 22+/-6 ml/m2. The right atrial size is normal. Interatrial and interventricular septum intact. The aortic valve is trileaflet and appears structurally normal. The mitral valve is normal. There is trace mitral regurgitation. The tricuspid valve appears structurally normal. Trace tricuspid regurgitation present. Right iva tricular systolic pressure is normal at < 35 mmHg. There is no pulmonic regurgitation present. The aortic root size is normal. Normal inferior vena cava with normal inspiratory collapse consistent with estimated right atrial pre ssure of 5 mmHg. There is no pericardial effusion. CONCLUSIONS -------- 1. The left ventricular size is normal. 2. Left ventricular wall thickness is normal. 3. Overall left ventricular systolic function is normal with, an EF between 55 - 60 %. 4. The diastolic filling pattern is normal for the age of the patient 8.88 5. There is trace mitral regurgitation. 6. Trace tricuspid regurgitation present. 7. There is no pericardial effusion. TUBE INSPECTOR: Mirian Singer, TESSA
[2021-05-04] MEDS ORDERED: POTASSIUM BICARBONATE/CIT AC 20 MEQ TABLET.EFF PO SCH (10:00)
--- NOTE | 2021-05-04 10:20 | P.PN ---
Subjective Progress Note Date: 05/04/21 Principal diagnosis: Pneumonia, shortness of breath On 05/02/2021 patient seen in follow-up on medical surgical floor. He is awake and alert, in no acute distress, he is currently on 2 L of oxygen pulse ox is 94%, his FiO2 has been weaned down from 8 L of oxygen that he was on earlier, afebrile, hemodynamically he is stable, occasional cough, no phlegm production, denies any chest discomfort, his last chest x-ray from yesterday showing mild interval improvement in the left lung infiltrates, and diffuse infiltrates at the right lung are unchanged. Patient is currently on a combination of antibiotics with Levaquin, Zosyn and vancomycin. No new blood work today. His proBNP came back at 5530, follow pro-calcitonin is pending, his initial pro- calcitonin the day before yesterday came back elevated at 4.20. Urinalysis showed no evidence of urinary tract infection. Urine drug screen showed opiates, benzodiazepines and marijuana. COVID-19 PCR was negative, influenza and B were negative, Legionella urine antigen were negative. On 05/03/2021 patient seen in follow-up on medical surgical floor, he was started on IV diuretics yesterday and is currently on Lasix 40 mg every 8 hours, he is in negative net fluid balance of 428 mL net fluid balance over the last 24 hours, he states he has been get not to the bathroom, and he is able to tolerate activity better, he is less short of breath with exertion. He still has a mild conversational dyspnea, his oxygen, his pulse ox is 96%, his been afebrile overnight. Today's chest x-ray still shows some mild increased lung markings bilaterally, compatible with pulmonary edema or atypical pneumonia, pro- calcitonin on today's labs is improving and is down to 1.36. Lung sounds are diminished, with mild bibasilar crackles, patient was tested for legionella urine antigen was found to be negative, he remains on Levaquin and vancomycin for broad-spectrum antibiotic coverage. On 05/04/2021 patient seen in follow-up on the medical surgical floor, he is currently on room air, earlier he was satting 99% on 2 L, his been afebrile, hemodynamically has been stable, he states his breathing a lot easier, his been diuresed, he states he is tolerating ambulation better, and his abdominal distention has improved with IV diuretics, echocardiogram has been completed and reviewed, his EF is preserved, at 55-60% and no significant valvular abnormality, his right ventricular systolic pressure is normal at less than 35 mmHg. Only occasional cough, no significant phlegm production, his sputum Gram stain showed Nilda albicans, and Nilda species not albicans or glabrata. Vancomycin has been discontinued, his pro calcitonin level is improved on yesterday's labs, he has had no fever or chills, no worsening dyspnea or pulmonary congestion, lung sounds reveal mild crackles at bilateral bases, and patient remains on combination of Levaquin and Zosyn for antibiotic coverage at this time, today's labs are still pending at this point. Today's labs have been reviewed showing white blood cell count of 9.2, improved from yesterday, hemoglobin is 12.5, electrolytes unremarkable, CO2 is down to 32 on today's labs, B1 is 25 and creatinine 0.86. His proBNP came back at 5530. No lower extremity edema. Objective - Vital Signs Vital signs: Vital Signs Temp 98.2 F 05/04/21 02:00 Pulse 61 05/04/21 02:00 Resp 18 05/04/21 02:00 BP 158/88 05/04/21 02:00 Pulse Ox 99 05/04/21 02:00 Intake & Output 05/03/21 05/04/21 05/04/21 18:59 06:59 18:59 Intake Total 660 Balance 660 Intake: Oral 660 Other: # Voids 2 3 - Exam GENERAL EXAM: Alert, very pleasant, 61-year-old white male, continues on 2 liters of oxygen and the pulse ox 99% comfortable in no apparent distress. HEAD: Normocephalic/atraumatic. EYES: Normal reaction of pupils, equal size. Conjunctiva pink, sclera white. NOSE: Clear with pink turbinates. THROAT: No erythema or exudates. NECK: No masses, no JVD, no thyroid enlargement, no adenopathy. CHEST: No chest wall deformity. Symmetrical expansion. LUNGS: Equal air entry with bibasilar crackles CVS: Regular rate and rhythm, normal S1 and S2, no gallops, no murmurs, no rubs ABDOMEN: Soft, nontender. No hepatosplenomegaly, normal bowel sounds, no guarding or rigidity. EXTREMITIES: No clubbing, no edema, no cyanosis, 2+ pulses and upper and lower extremities. MUSCULOSKELETAL: Muscle strength and tone normal. SPINE: No scoliosis or deformity SKIN: No rashes CENTRAL NERVOUS SYSTEM: Alert and oriented -3. No focal deficits, tone is normal in all 4 extremities. PSYCHIATRIC: Alert and oriented -3. Appropriate affect. Intact judgment and insight. - Labs CBC & Chem 7: 05/04/21 06:22 05/04/21 06:22 Labs: Abnormal Lab Results - Last 24 Hours (Table) 05/03/21 05/03/21 05/03/21 Range/Units 09:32 09:32 09:32 WBC 11.1 H (3.8-10.6) k/uL RBC (4.30-5.90) m/uL Hgb (13.0-17.5) gm/dL Hct (39.0-53.0) % Neutrophils # 10.2 H (1.3-7.7) k/uL Lymphocytes # 0.5 L (1.0-4.8) k/uL Potassium 2.9 L (3.5-5.1) mmol/L Carbon Dioxide 33 H (22-30) mmol/L BUN 32 H (9-20) mg/dL Glucose 150 H (74-99) mg/dL AST (17-59) U/L Total Protein 6.2 L (6.3-8.2) g/dL Albumin 3.4 L (3.5-5.0) g/dL Vancomycin Trough 31.9 H* ug/mL 05/04/21 05/04/21 Range/Units 06:22 06:22 WBC (3.8-10.6) k/uL RBC 4.16 L (4.30-5.90) m/uL Hgb 12.5 L (13.0-17.5) gm/dL Hct 37.7 L (39.0-53.0) % Neutrophils # 8.3 H (1.3-7.7) k/uL Lymphocytes # 0.5 L (1.0-4.8) k/uL Potassium (3.5-5.1) mmol/L Carbon Dioxide 32 H (22-30) mmol/L BUN 25 H (9-20) mg/dL Glucose 151 H (74-99) mg/dL AST 15 L (17-59) U/L Total Protein 5.6 L (6.3-8.2) g/dL Albumin 3.0 L (3.5-5.0) g/dL Vancomycin Trough ug/mL Microbiology - Last 24 Hours (Table) 04/30/21 12:09 Blood Culture - Preliminary Blood No Growth after 72 hours 04/30/21 12:09 Blood Culture - Preliminary Blood No Growth after 72 hours 04/30/21 18:45 Gram Stain - Final Sputum Sputum Culture - Final Nilda albicans Nilda sp,not albicans/galbr Assessment and Plan Plan: Assessment: #1. Acute bilateral pneumonia, COVID-19 PCR, influenza A and B and Legionella urine antigen was negative. Patient had elevated pro calcitonin suggesting acute bacterial pneumonia. Patient is currently covered with a combination of Levaquin, Zosyn and vancomycin. #2. Acute hypoxic respiratory failure related to the above #3. A component of fluid overload, acute exacerbation of systolic CHF with previously documented left ventricular systolic function of 40-45%. Repeat echocardiogram on 05/04/2021 shows normal EF of 55-60% without significant valvular abnormality, and no evidence of pulmonary hypertension. #4. Previous episodes of pneumonia, and acute hypoxic respiratory failure related intubation and mechanical ventilator support. Most recently in August 2020 when aspiration pneumonia was suspected #5. Marijuana smoking #6. Chronic anxiety/depression #7. Chronic back pain Plan: Patient is breathing easier Fluid balance is difficult to estimate, there is no accurate intake and output But overall patient reports improvement with dyspnea, and exertional dyspnea Improvement in truncal edema Patient is maintaining stable O2 saturations on room air Echocardiogram has been reviewed, patient has preserved LV function no significant valvular abnormality and no evidence of pulmonary hypertension We'll switch his IV Lasix to oral Lasix twice daily 40 mg Today's labs have been noted, white blood cell count is improving, his pro calcitonin has improved Has had no fever or chills Increase activity as tolerated It remains stable and cleared by medicine patient can considered for discharge home today, Can complete oral antibiotics on outpatient basis, he may need Lasix 40 mg once daily dose for maintenance upon discharge Outpatient follow-up with Dr. Christian in the office in 2 weeks We'll check I's and renal profile We'll continue broad-spectrum antibiotics Pro calcitonin level is improving, however still elevated We'll continue to follow his clinical course Increase activity as tolerated I performed a history & physical examination of the patient and discussed their management with my nurse practitioner, Chaparrita Eubanks. I reviewed the nurse practitioner's note and agree with the documented findings and plan of care. Lung sounds are positive for diffuse wheezes throughout the lung interiano. The findings and the impression was discussed with the patient. I attest to the documentation by the nurse practitioner. Time with Patient: Less than 30
[2021-05-04 15:22] VITALS: BP 134/87; RESP 16; TEMP 98
[2021-05-04] MEDS ORDERED: FUROSEMIDE 40 MG TAB PO SCH (16:00)
--- NOTE | 2021-05-04 16:00 | P.DS ---
Providers Date of admission: 04/30/21 14:27 Expected date of discharge: 05/04/21 Attending physician: Bradley Love Consults: 04/30/21 14:27 Consult Physician Routine Consulting Provider: Cathy Christian Consult Reason/Comments: Atypical pneumonia Do you want consulting provider notified?: Yes Primary care physician: Joseph Granger MD Hospital Course: HISTORY OF PRESENT ILLNESS This is a 61-year-old male patient of Dr. Granger with past medical history of COPD, gastroesophageal reflux disease, chronic back pain, depression, active tobacco use and dependence. Patient was recently hospitalized at which time he was treated for bilateral pneumonia and discharged home on Z- Nasir and prednisone taper. Patient states he was doing fine until suddenly he became much worse and his pulse ox dropped down to 62% at home. He states he was having a lot of coughing at home so bad that he developed a severe headache. He was complaining of shortness of breath at rest and with exertion. He denies having any fever or chills. Patient presented to [facility] emergency center. He was found to be afebrile, heart rate 115, respiratory rate 24, blood pressure 111/74 and pulse ox 77% on room air. Blood work revealed WBC 16.9. Potassium 3.0. Blood sugar 116. Pro-calcitonin 4.2. [place] virus PCR not detected. Chest x-ray reveals mild interval improvement in the left lung infiltrate. Diffuse infiltrates in the right lung are unchanged. Repeat chest x-ray 05/01 reveals mild interval improvement of the left lung infiltrates. Diffuse infiltrate in the right lung unchanged. Patient is seen today in [facility] Patient was seen yesterday by pulmonary medicine and is on Zosyn and Levaquin, vancomycin, bronchodilators and IV Solu-Medrol. Patient started on azithromycin, ceftriaxone, DuoNeb treatments and consult with pulmonary medicine. Urine drug screen and Legionella been ordered and not obtained. 05/02: Patient has been afebrile, heart rate 65, blood pressure 133/79, pulse ox 95% on 4 L nasal cannula. Urine drug screen was positive for opiates, benzodiazepines and marijuana. Patient denies use of marijuana. Influenza a, influenza B, Legionella negative. Patient continues to have wheezing, Mucinex added for cough. Patient has been seen and followed by both her medicine. Sputum culture is in progress. Blood culture no growth at 24 hours. Plan is to wean oxygen therapy down today. Incentive spirometry added. 05/03 Patient has been afebrile, respiratory rate 19 pulse 81 and oxygen saturation 99% on 2 L high flow. Patient labs are reviewed patient had leukocytosis of 11.1 potassium 2.9 BUN 32 creatinine 1.02 bicarb 33 proBNP 5530. Pro-calcitonin is improved to 1.36 from 4.2. Patient denies any cough or congestion. He is short of breath with minimal movement. Patient currently does remain on triple antibiotics including Zosyn and levofloxacin and vancomycin. Sputum cultures showing Nilda albicans blood cultures are negative. Continue IV diuresis for another 24 hours. We'll reduce patient Solu-Medrol to 60 every 8 today. Vancomycin trough was elevated. Discontinue vancomycin as sputum culture has resulted 05/04: Patient has no new complaints, breathing status is stable. He has been afebrile, heart rate 74, blood pressure 134/87, pulse ox 94% on room air. Repeat blood work reveals WBC 9.2, hemoglobin 12.5. Creatinine 0.86. Blood sugar 151. Echocardiogram reveals EF of 55-60%, trace mitral regurgitation, trace tricuspid regurgitation. Patient has been followed closely by pulmonary medicine. Patient will be discharged home today in stable condition. DISCHARGE DIAGNOSES 1. Acute hypoxic respiratory failure secondary to Bilateral pneumonia and acute exacerbation of COPD. 2. Acute systolic CHF exacerbation. 3. COPD exacerbation. 4. Acute on Chronic back pain. 5. Gastroesophageal reflux disease. 6. Recurrent depression, generalized anxiety disorder. 7. Chronic tobacco use and dependence. 8. Daily marijuana use. 9. History of ventilatory dependent respiratory failure due to bilateral pneumonia 08/2020. 10. COVID-19 testing negative. Patient has been hospitalized during a pandemic. DISCHARGE PLAN Home Greater than 35 minutes was utilized and coordinating patient's discharge. Impression and plan of care have been directed as dictated by the signing physician. Marybel Santoro nurse practitioner acting as scribe for signing physician. Patient Condition at Discharge: Stable Plan - Discharge Summary Discharge Rx Participant: No New Discharge Prescriptions: New Ipratropium-Albuterol Nebulize [Duoneb 0.5 mg-3 mg/3 ml Soln] 3 ml INHALATION RT-QID ml predniSONE 0 mg PO DIRECTED #30 tab Levofloxacin [Levaquin] 750 mg PO DAILY 5 Days #5 tab Furosemide [Lasix] 40 mg PO BID@0900,1600 #60 tab guaiFENesin [Mucinex] 1,200 mg PO Q12HR tablet Continue Baclofen [Lioresal] 20 mg PO TID Citalopram Hydrobromide [CeleXA] 40 mg PO HS Pantoprazole [Protonix] 40 mg PO AC-BRKFST #30 tablet. Albuterol Sulfate [Proair Hfa] 1 - 2 puff INHALATION RT-Q6H PRN PRN Reason: Shortness Of Breath Tiotropium 2.5 Mcg/Puff [Spiriva Respimat 2.5 Mcg] 2 puff INHALATION RT-DAILY puff HYDROcodone/APAP 7.5-325MG [[place] 7.5-325] 1 tab PO BID PRN PRN Reason: Pain Discontinued Furosemide [Lasix] 20 mg PO DAILY Azithromycin [Zithromax Z-pack (6 tabs)] See Taper PO DIRECTED predniSONE [Deltasone] See Taper PO DIRECTED Discharge Medication List Baclofen [Lioresal] 20 mg PO TID 01/14/20 [History] Citalopram Hydrobromide [CeleXA] 40 mg PO HS 01/14/20 [History] Albuterol Sulfate [Proair Hfa] 1 - 2 puff INHALATION RT-Q6H PRN 09/15/20 [History] Pantoprazole [Protonix] 40 mg PO AC-BRKFST #30 tablet. 09/24/20 [Rx] Tiotropium 2.5 Mcg/Puff [Spiriva Respimat 2.5 Mcg] 2 puff INHALATION RT-DAILY puff 09/24/20 [Rx] HYDROcodone/APAP 7.5-325MG [[place] 7.5-325] 1 tab PO BID PRN 04/25/21 [History] Furosemide [Lasix] 40 mg PO BID@0900,1600 #60 tab 05/04/21 [Rx] Ipratropium-Albuterol Nebulize [Duoneb 0.5 mg-3 mg/3 ml Soln] 3 ml INHALATION RT-QID ml 05/04/21 [Rx] Levofloxacin [Levaquin] 750 mg PO DAILY 5 Days #5 tab 05/04/21 [Rx] guaiFENesin [Mucinex] 1,200 mg PO Q12HR tablet 05/04/21 [Rx] predniSONE 0 mg PO DIRECTED #30 tab 05/04/21 [Rx] Follow up Appointment(s)/Referral(s): Joseph Granger MD [Primary Care Provider] - 05/09/21 11:30 am Cathy Christian MD [STAFF PHYSICIAN] - 05/12/21 2:00 pm (With Brissa Sellers) Patient Instructions/Handouts: Pneumonitis (DC) Discharge Disposition: HOME SELF-CARE
[2021-05-04 16:05] VITALS: PULSE 82
== END 2021-05-04 17:18 | disposition home or self-care (01) | DRG 193 ==
LOC: EC 10:40 → 4SSUR 14:27
PROVIDERS: ADMIT Internal Medicine Geriatric Medicine; ATTEND Internal Medicine Geriatric Medicine
PROC: 5A0945A Assistance with Respiratory Ventilation, 24-96 Consecutive Hours, High Flow/Velocity Cannula (ICD-10-PCS; principal; 2021-05-01)
DX: J15.9 Unspecified bacterial pneumonia (principal); J96.01 Acute respiratory failure with hypoxia; I50.23 Acute on chronic systolic (congestive) heart failure; J44.0 Chronic obstructive pulmonary disease with (acute) lower respiratory infection; J44.1 Chronic obstructive pulmonary disease with (acute) exacerbation; F31.30 Bipolar disorder, current episode depressed, mild or moderate severity, unspecified; Z20.822 Contact with and (suspected) exposure to COVID-19; F41.1 Generalized anxiety disorder; K21.9 Gastro-esophageal reflux disease without esophagitis; G89.29 Other chronic pain; M54.9 Dorsalgia, unspecified; R51.9 Headache, unspecified; F17.210 Nicotine dependence, cigarettes, uncomplicated; Z71.6 Tobacco abuse counseling; Z79.899 Other long term (current) drug therapy; Z87.01 Personal history of pneumonia (recurrent); Z98.1 Arthrodesis status; Z87.39 Personal history of other diseases of the musculoskeletal system and connective tissue; Z98.890 Other specified postprocedural states; Z88.8 Allergy status to other drugs, medicaments and biological substances; Z82.49 Family history of ischemic heart disease and other diseases of the circulatory system; Z80.7 Family history of other malignant neoplasms of lymphoid, hematopoietic and related tissues
CPT/HCPCS: 36415; 71045; 71046; 80053; 80202; 80306; 81001; 83605; 83880; 84145; 85025; 85610; 85730; 87040; 87070; 87205; 87449; 87502; 87635; 93005; 93306; 94640; 94760; 96361; 96365; 96366; 96367; 96375; 99291

== ENCOUNTER 2022-04-15 14:42 | Inpatient (IN) | payer OTHER ==
--- NOTE | 2022-04-15 16:38 | XR ---
EXAMINATION TYPE: XR chest 2V DATE OF EXAM: 04/15/2022 COMPARISON: 05/03/2021 HISTORY: Altered mental status TECHNIQUE: 2 views FINDINGS: There is some pulmonary interstitial edema. Heart is not enlarged. No pleural effusion. Bon y thorax is intact. IMPRESSION: There is pulmonary interstitial edema which is the same or slightly worse than last exam and could be combined interstitial pneumonia and pulmonary interstitial fibrosis. No pleural fluid se en to suggest heart failure.
[2022-04-15 16:50] LABS: Basophils % (A) 0 %; Eosinophils # (A) 0.1 k/uL (0-0.7); Eosinophils % (A) 1 %; HCT 45.1 % (39.0-53.0); HGB 15.1 gm/dL (13.0-17.5); Lymphocytes # (A) 0.7 k/uL (1.0-4.8); Lymphocytes % (A) 3 %; MCH 29.6 pg (25.0-35.0); MCHC 33.5 g/dL (31.0-37.0); MCV 88.4 fL (80.0-100.0); Mean Platelet Volume 9.3; Monocytes # (A) 0.5 k/uL (0-1.0); Monocytes % (A) 3 %; Neutrophils % (A) 93 %; Platelet Count 237 k/uL (150-450); RDW 12.9 % (11.5-15.5); WBC 20.4 k/uL (3.8-10.6)
[2022-04-15 17:00] LABS: ALT 23 U/L (4-49); AST 24 U/L (17-59); African American GFR (CKD) >90 (>60 ml/min/1.73 sqM); Albumin 4.1 g/dL (3.5-5.0); Alkaline Phosphatase 118 U/L (38-126); Anion Gap 9 mmol/L; Blood Urea Nitrogen 18 mg/dL (9-20); Calcium 8.9 mg/dL (8.4-10.2); Carbon Dioxide 24 mmol/L (22-30); Chloride 106 mmol/L (98-107); Glucose 116 mg/dL (74-99); Non-African American GFR(CKD) >90 (>60 ml/min/1.73 sqM); Potassium 3.7 mmol/L (3.5-5.1); Sodium 139 mmol/L (137-145); Total Bilirubin 0.5 mg/dL (0.2-1.3); Total Protein 6.8 g/dL (6.3-8.2)
[2022-04-15 17:01] LABS: INR 0.9 (<1.2); Partial Thromboplastin Time 25.3 sec (22.0-30.0); Prothrombin Time 9.8 sec (9.0-12.0)
[2022-04-15] MEDS ORDERED: AZITHROMYCIN 500 MG in SODIUM CHLORIDE 0.9% 250 ML IVPB STA (17:42)
[2022-04-15] MEDS ORDERED: NALOXONE 0.4 MG/ML 1 ML VIAL IV PRN (17:44)
[2022-04-15] MEDS ORDERED: HYDROcodone/APAP 10-325MG 1 EACH TAB PO ONE (18:25)
--- NOTE | 2022-04-15 18:32 | ED ---
General Adult HPI - General Chief complaint: Upper Respiratory Infection Stated complaint: SOB,Fever,cough Time Seen by Provider: 04/15/22 15:24 Source: patient Mode of arrival: ambulatory Limitations: no limitations - History of Present Illness Initial comments: This is a 62-year-old male with a past medical history including COPD presents emergency department for pneumonia. The patient was seen at an outside facility yesterday and was diagnosed with bilateral pneumonia and was instructed that he will need to be transferred for admission. The patient did not want to be transferred to another [place] instead left AMA and wanted to come to the emergency department here to be admitted to this hospital. The patient did receive by mouth and about X at home as it was sent was pharmacy. The patient came into the emergency department to be admitted for his bilateral pneumonia. The patient did state that he had shortest breath with exertion and said he had intermittent fevers and chills. The patient denied any other acute pain or complaints at this time. - Related Data Home Medications Medication Instructions Recorded Confirmed Baclofen [Lioresal] 20 mg PO TID 01/14/20 04/15/22 HYDROcodone/APAP 7.5-325MG [[place] 1 tab PO DAILY 04/25/21 04/15/22 7.5-325] Amoxic-Pot Clav 875-125Mg 1 tab PO BID 04/15/22 04/15/22 [Augmentin 875-125] Azithromycin [Zithromax Z Pack] See Taper PO DAILY 04/15/22 04/15/22 DULoxetine HCL [Cymbalta] 30 mg PO BID 04/15/22 04/15/22 Meloxicam [Mobic] 15 mg PO DAILY PRN 04/15/22 04/15/22 dexAMETHasone [Decadron] 10 mg PO ONCE 04/15/22 04/15/22 Allergies Allergy/AdvReac Type Severity Reaction Status Date / Time potassium chloride Allergy Swelling Verified 04/15/22 15:06 [From Klor-Con] sacubitril [From Entresto] Allergy Unknown Verified 04/15/22 15:06 valsartan [From Entresto] Allergy Unknown Verified 04/15/22 15:06 Review of Systems ROS Statement: Those systems with pertinent positive or pertinent negative responses have been documented in the HPI. ROS Other: All systems not noted in ROS Statement are negative. Past Medical History Past Medical History: COPD, Pneumonia Additional Past Medical History / Comment(s): back pain History of Any Multi-Drug Resistant Organisms: None Reported Past Surgical History: Back Surgery Additional Past Surgical History / Comment(s): neck fusion,rt eye surgery, rt hand surgery Past Anesthesia/Blood Transfusion Reactions: No Reported Reaction Past Psychological History: Depression Smoking Status: Current every day smoker Past Alcohol Use History: Occasional Past Drug Use History: Marijuana - Past Family History Mother History Unknown: Yes Family Medical History: Myocardial Infarction ([place]) Additional Family Medical History / Comment(s): from [place] General Exam Limitations: no limitations General appearance: alert, in no apparent distress Head exam: Present: atraumatic, normocephalic Eye exam: Present: normal appearance, PERRL Pupils: Present: normal accommodation ENT exam: Present: normal exam, normal oropharynx, mucous membranes moist Neck exam: Present: normal inspection, full ROM Respiratory exam: Present: rhonchi (Rhonchi heard on the left lung field) Cardiovascular Exam: Present: regular rate, normal rhythm, normal heart sounds GI/Abdominal exam: Present: soft, normal bowel sounds Extremities exam: Present: normal inspection, full ROM Back exam: Present: normal inspection, full ROM Neurological exam: Present: alert, oriented X3, CN II-XII intact Psychiatric exam: Present: normal affect, normal mood Skin exam: Present: warm, dry Course Vital Signs 04/15/22 04/15/22 04/15/22 15:01 16:25 16:57 Temperature 98.3 F Pulse Rate 87 87 Respiratory 20 18 20 Rate Blood Pressure 131/82 O2 Sat by Pulse 95 94 L Oximetry Medical Decision Making - Medical Decision Making The patient was seen and evaluated in the emergency department. Physical exam, the patient was resting in bed without any acute distress. Vital signs admission were stable and within normal limits. Due to the nature the patient's complaints, laboratory workup was obtained as was a chest x-ray. Chest x-ray did show concern for bilateral pneumonia and laboratory workup did show an elevated white blood cell count. The patient had ambulatory pulse ox at 95% however due to the patient's comorbidity including COPD and is having a bilateral pneumonia, the patient will be admitted for further IV antibiotics. The patient received IV azithromycin and Rocephin in the emergency department. The patient's primary care physician is covered by [facility] and Dr. Sebastian was covering and did accept the patient for admission. The patient was told this plan and was agreeable. The patient was admitted in stable condition. - Lab Data Result diagrams: 04/15/22 16:23 04/15/22 16:23 Lab Results 04/15/22 04/15/22 04/15/22 Range/Units 16:23 16:23 16:23 WBC 20.4 H (3.8-10.6) k/uL RBC 5.10 (4.30-5.90) m/uL Hgb 15.1 (13.0-17.5) gm/dL Hct 45.1 (39.0-53.0) % MCV 88.4 (80.0-100.0) fL MCH 29.6 (25.0-35.0) pg MCHC 33.5 (31.0-37.0) g/dL RDW 12.9 (11.5-15.5) % Plt Count 237 (150-450) k/uL MPV 9.3 Neutrophils % 93 % Lymphocytes % 3 % Monocytes % 3 % Eosinophils % 1 % Basophils % 0 % Neutrophils # 19.0 H (1.3-7.7) k/uL Lymphocytes # 0.7 L (1.0-4.8) k/uL Monocytes # 0.5 (0-1.0) k/uL Eosinophils # 0.1 (0-0.7) k/uL Basophils # 0.0 (0-0.2) k/uL PT 9.8 (9.0-12.0) sec INR 0.9 (<1.2) APTT 25.3 (22.0-30.0) sec Sodium 139 (137-145) mmol/L Potassium 3.7 (3.5-5.1) mmol/L Chloride 106 (98-107) mmol/L Carbon Dioxide 24 (22-30) mmol/L Anion Gap 9 mmol/L BUN 18 (9-20) mg/dL Creatinine 0.84 (0.66-1.25) mg/dL Est GFR (CKD-EPI)AfAm >90 (>60 ml/min/1.73 sqM) Est GFR (CKD-EPI)NonAf >90 (>60 ml/min/1.73 sqM) Glucose 116 H (74-99) mg/dL Calcium 8.9 (8.4-10.2) mg/dL Magnesium 2.0 (1.6-2.3) mg/dL Total Bilirubin 0.5 (0.2-1.3) mg/dL AST 24 (17-59) U/L ALT 23 (4-49) U/L Alkaline Phosphatase 118 (38-126) U/L Total Protein 6.8 (6.3-8.2) g/dL Albumin 4.1 (3.5-5.0) g/dL Coronavirus (PCR) (Not Detectd) 04/15/22 Range/Units 16:23 WBC (3.8-10.6) k/uL RBC (4.30-5.90) m/uL Hgb (13.0-17.5) gm/dL Hct (39.0-53.0) % MCV (80.0-100.0) fL MCH (25.0-35.0) pg MCHC (31.0-37.0) g/dL RDW (11.5-15.5) % Plt Count (150-450) k/uL MPV Neutrophils % % Lymphocytes % % Monocytes % % Eosinophils % % Basophils % % Neutrophils # (1.3-7.7) k/uL Lymphocytes # (1.0-4.8) k/uL Monocytes # (0-1.0) k/uL Eosinophils # (0-0.7) k/uL Basophils # (0-0.2) k/uL PT (9.0-12.0) sec INR (<1.2) APTT (22.0-30.0) sec Sodium (137-145) mmol/L Potassium (3.5-5.1) mmol/L Chloride (98-107) mmol/L Carbon Dioxide (22-30) mmol/L Anion Gap mmol/L BUN (9-20) mg/dL Creatinine (0.66-1.25) mg/dL Est GFR (CKD-EPI)AfAm (>60 ml/min/1.73 sqM) Est GFR (CKD-EPI)NonAf (>60 ml/min/1.73 sqM) Glucose (74-99) mg/dL Calcium (8.4-10.2) mg/dL Magnesium (1.6-2.3) mg/dL Total Bilirubin (0.2-1.3) mg/dL AST (17-59) U/L ALT (4-49) U/L Alkaline Phosphatase (38-126) U/L Total Protein (6.3-8.2) g/dL Albumin (3.5-5.0) g/dL Coronavirus (PCR) Not Detected (Not Detectd) Disposition Clinical Impression: Bilateral pneumonia Disposition: ADMITTED IP TO THIS HOSP Condition: Stable Is patient prescribed a controlled substance at d/c from ED?: No Referrals: Joseph Granger MD [Primary Care Provider] - 1-2 days Time of Disposition: 17:44 Decision Date: 04/15/22 Decision Time: 17:44
[2022-04-15] MEDS ORDERED: MELOXICAM 7.5 MG TAB PO PRN (19:47)
[2022-04-15] MEDS ORDERED: IPRATROPIUM-ALBUTEROL 3 ML NEB INHALATION PRN (19:52)
[2022-04-15] MEDS ORDERED: guaiFENesin SYRUP 100MG/5ML 200 MG/10 ML CUP PO PRN (19:52)
[2022-04-15] MEDS ORDERED: ACETAMINOPHEN TAB 325 MG TAB PO PRN (19:52)
[2022-04-15] MEDS: BACLOFEN 10 MG TAB PO SCH (21:44)
[2022-04-15] MEDS: DULoxetine HCL 30 MG CAPSULE.DR PO SCH (21:44)
[2022-04-16] MEDS: PANTOPRAZOLE 40 MG TABLET PO SCH (06:40)
[2022-04-16] MEDS: BACLOFEN 10 MG TAB PO SCH ×3 (07:30→21:29)
[2022-04-16] MEDS: HYDROcodone/APAP 7.5-325MG 1 EACH TAB PO PRN (07:30)
[2022-04-16] MEDS: DULoxetine HCL 30 MG CAPSULE.DR PO SCH ×2 (07:31→21:30)
[2022-04-16] MEDS ORDERED: HYDROcodone/APAP 7.5-325MG 1 EACH TAB PO PRN (10:46)
--- NOTE | 2022-04-16 13:12 | P.HPIM ---
History of Present Illness Patient is a pleasant a 8-year-old male with known history of COPD came in with compensative cough with green sputum production. Patient had a chest x-ray which showed bilateral lateral interstitial infiltrate suspicious for pneumonia because of which patient was admitted in the hospital patient was started on Rocephin and azithromycin patient is taking Augmentin as an outpatient. Patient denied any orthopnea paroxysmal nocturnal dyspnea. Patient does have smoking history. Pro-calcitonin level be ordered. Patient doesn't have any fever. REVIEW OF SYSTEMS: CONSTITUTIONAL: no malaise, no fatigue. HEENT: No recent visual problems or hearing problems. Denied any sore throat. CARDIOVASCULAR: No chest pain, orthopnea, PND, no palpitations, no syncope. PULMONARY: no hemoptysis. GASTROINTESTINAL: No diarrhea, no nausea, no vomiting, no abdominal pain. NEUROLOGICAL: No headaches, no weakness, no numbness. HEMATOLOGICAL: Denies any bleeding or petechiae. GENITOURINARY: Denies any burning micturition, frequency, or urgency. MUSCULOSKELETAL/RHEUMATOLOGICAL: Denies any joint pain, swelling, or any muscle pain. ENDOCRINE: Denies any polyuria or polydipsia. The rest of the 14-point review of systems is negative. PHYSICAL EXAMINATION: GENERAL: The patient is alert and oriented x3, not in any acute distress. Well developed, well nourished. HEENT: Pupils are round and equally reacting to light. EOMI. No scleral icterus. No conjunctival pallor. Normocephalic, atraumatic. No pharyngeal erythema. No thyromegaly. CARDIOVASCULAR: S1 and S2 present. No murmurs, rubs, or gallops. PULMONARY: Minimal bilateral rhonchi and minimal expiratory wheezing ABDOMEN: Soft, nontender, nondistended, normoactive bowel sounds. No palpable organomegaly. MUSCULOSKELETAL: No joint swelling or deformity. EXTREMITIES: No cyanosis, clubbing, or pedal edema. NEUROLOGICAL: Gross neurological examination did not reveal any focal deficits. SKIN: No rashes. Assessment and plan -Cough with sputum production most probably bronchitis possibly of pneumonia, continue with present antibiotics and inhalational treatments. 4 patient probably can be discharged tomorrow -COPD mild acute exacerbation: Patient will be continued on inhaled steroids and inhalational treatments probably inadequate systemic strides at this time -Nicotine cessation counseling was provided -Depression DVT prophylaxis: Early ambulation Past Medical History Past Medical History: COPD, Pneumonia Additional Past Medical History / Comment(s): back pain History of Any Multi-Drug Resistant Organisms: None Reported Past Surgical History: Back Surgery Additional Past Surgical History / Comment(s): neck fusion,rt eye surgery, rt hand surgery Past Anesthesia/Blood Transfusion Reactions: No Reported Reaction Past Psychological History: Depression Smoking Status: Current every day smoker Past Alcohol Use History: Occasional Past Drug Use History: Marijuana - Past Family History Mother History Unknown: Yes Family Medical History: Myocardial Infarction ([place]) Additional Family Medical History / Comment(s): from [place] Medications and Allergies Home Medications Medication Instructions Recorded Confirmed Type Baclofen [Lioresal] 20 mg PO TID 01/14/20 04/15/22 History HYDROcodone/APAP 7.5-325MG [[place] 1 tab PO DAILY 04/25/21 04/15/22 History 7.5-325] Amoxic-Pot Clav 875-125Mg 1 tab PO BID 04/15/22 04/15/22 History [Augmentin 875-125] Azithromycin [Zithromax Z Pack] See Taper PO DAILY 04/15/22 04/15/22 History DULoxetine HCL [Cymbalta] 30 mg PO BID 04/15/22 04/15/22 History Meloxicam [Mobic] 15 mg PO DAILY PRN 04/15/22 04/15/22 History dexAMETHasone [Decadron] 10 mg PO ONCE 04/15/22 04/15/22 History Allergies Allergy/AdvReac Type Severity Reaction Status Date / Time potassium chloride Allergy Swelling Verified 04/15/22 15:06 [From Klor-Con] sacubitril [From Entresto] Allergy Unknown Verified 04/15/22 15:06 valsartan [From Entresto] Allergy Unknown Verified 04/15/22 15:06 Physical Exam Vitals: Vital Signs Temp Pulse Pulse Resp BP BP Pulse Ox 04/16/22 07:43 97.3 F L 63 16 134/83 94 L 04/16/22 02:00 97.6 F 69 17 112/73 94 L 04/15/22 20:00 98.8 F 73 16 151/94 94 L 04/15/22 18:32 98.0 F 77 18 138/90 96 04/15/22 16:57 87 20 94 L 04/15/22 16:25 18 04/15/22 15:01 98.3 F 87 20 131/82 95 Intake and Output 04/15/22 04/16/22 04/16/22 22:59 06:59 14:59 Other: # Voids 2 4 Weight 70.76 kg Results CBC & Chem 7: 04/15/22 16:23 04/15/22 16:23 Labs: Abnormal Lab Results - Last 24 Hours (Table) 04/15/22 04/15/22 Range/Units 16:23 16:23 WBC 20.4 H (3.8-10.6) k/uL Neutrophils # 19.0 H (1.3-7.7) k/uL Lymphocytes # 0.7 L (1.0-4.8) k/uL Glucose 116 H (74-99) mg/dL Thrombosis Risk Factor Assmnt - Choose All That Apply Any of the Below Risk Factors Present?: Yes Each Factor Represents 1 point: Abnormal pulmonary function (COPD), Age 41-60 years Other Risk Factors: No Other congenital or acquired thrombophilia - If yes, enter type in comment: No Thrombosis Risk Factor Assessment Total Risk Factor Score: 2 Thrombosis Risk Factor Assessment Level: Low Risk
--- NOTE | 2022-04-16 16:49 | P.CNPUL ---
History of Present Illness Consult date: 04/16/22 Requesting physician: Claire Sebastian Reason for consult: dyspnea, cough, hypoxemia, pneumonia, abnormal CXR/CT Chief complaint: Shortness of breath, cough, phlegm production. History of present illness: Pulmonary/critical care consultation dated 04/16/2022. 62-year-old male with a history of COPD, and a prior episode of ventilator dependent respiratory failure, comes into the emergency department on April 15, complaining of shortness of breath, cough, wheezing, phlegm production, and fever. The patient has a history of severe COPD, and has had a previous episode of respiratory failure requiring intubation and mechanical ventilation. That was back in August 2020. More recently in April 2021, he was hospitalized for pneumonia as well. He saw my partner at that time. Other medical history includes anxiety and depression, as well as chronic back pain. He does continue to smoke cigarettes. White count 20.4, hemoglobin 15.1, hematocrit 45.1, and platelet count 237,000. Sodium 139, potassium 3.7, chlorides 106, CO2 24, BUN 18, creatinine 0.84. Testing for coronavirus was negative. Chest x-ray showed infiltrative changes in both lung interiano. Review of Systems REVIEW OF SYSTEMS: CONSTITUTIONAL: [Negative.] NEUROLOGIC: [ Negative.] HEENT: [ Negative.] CARDIAC: [Negative.] PULMONARY: Shortness of breath, chest congestion, cough, wheezing, phlegm production, and fever. GI: [Negative.] : [Negative.] RHEUMATOLOGIC: [ Negative.] IMMUNOLOGIC: [ Negative.] ENDOCRINE: [Negative. ] DERMATOLOGIC: [Negative.] Past Medical History Past Medical History: COPD, Pneumonia Additional Past Medical History / Comment(s): back pain History of Any Multi-Drug Resistant Organisms: None Reported Past Surgical History: Back Surgery Additional Past Surgical History / Comment(s): neck fusion,rt eye surgery, rt hand surgery Past Anesthesia/Blood Transfusion Reactions: No Reported Reaction Past Psychological History: Depression Smoking Status: Current every day smoker Past Alcohol Use History: Occasional Past Drug Use History: Marijuana - Past Family History Mother History Unknown: Yes Family Medical History: Myocardial Infarction ([place]) Additional Family Medical History / Comment(s): from [place] Medications and Allergies Home Medications Medication Instructions Recorded Confirmed Type Baclofen [Lioresal] 20 mg PO TID 01/14/20 04/15/22 History HYDROcodone/APAP 7.5-325MG [[place] 1 tab PO DAILY 04/25/21 04/15/22 History 7.5-325] Amoxic-Pot Clav 875-125Mg 1 tab PO BID 04/15/22 04/15/22 History [Augmentin 875-125] Azithromycin [Zithromax Z Pack] See Taper PO DAILY 04/15/22 04/15/22 History DULoxetine HCL [Cymbalta] 30 mg PO BID 04/15/22 04/15/22 History Meloxicam [Mobic] 15 mg PO DAILY PRN 04/15/22 04/15/22 History dexAMETHasone [Decadron] 10 mg PO ONCE 04/15/22 04/15/22 History Allergies Allergy/AdvReac Type Severity Reaction Status Date / Time potassium chloride Allergy Swelling Verified 04/15/22 15:06 [From Klor-Con] sacubitril [From Entresto] Allergy Unknown Verified 04/15/22 15:06 valsartan [From Entresto] Allergy Unknown Verified 04/15/22 15:06 Physical Exam Osteopathic Statement: *. No significant issues noted on an osteopathic structural exam other than those noted in the History and Physical/Consult. Vitals: Vital Signs Temp Pulse Pulse Resp BP BP Pulse Ox 04/16/22 14:00 97.2 F L 61 18 143/90 94 L 04/16/22 07:43 97.3 F L 63 16 134/83 94 L 04/16/22 02:00 97.6 F 69 17 112/73 94 L 04/15/22 20:00 98.8 F 73 16 151/94 94 L 04/15/22 18:32 98.0 F 77 18 138/90 96 04/15/22 16:57 87 20 94 L Intake and Output 04/16/22 04/16/22 04/16/22 06:59 14:59 22:59 Other: # Voids 4 No acute distress, oriented 3. No use of accessory muscles or conversational dyspnea. HEENT examination is grossly unremarkable. Neck supple. Full range of motion. No adenopathy thyromegaly or neck vein distention. Cardiovascular examination reveals regular rhythm rate. S1-S2 normal. No S3 or S4. No discernible murmur noted. Heart rate 61 bpm. Lungs reveal diffuse scattered rhonchi. Basilar crackles are noted. Few scattered high-pitched wheezes are appreciated as well. Room air saturation is 94%. Breath sounds equal bilaterally. Abdomen soft bowel sounds are heard. No masses or tenderness. Extremities are intact. No cyanosis clubbing or edema. Skin is without rash or lesion. Neurologic examination is brief but nonfocal. Results - Laboratory Findings CBC and BMP: 04/15/22 16:23 04/15/22 16:23 PT/INR, D-dimer PT 9.8 sec (9.0-12.0) 04/15/22 16: INR 0.9 (<1.2) 04/15/22 16:23 Abnormal lab findings: Abnormal Labs 04/15/22 04/15/22 16:23 16:23 WBC 20.4 H Neutrophils # 19.0 H Lymphocytes # 0.7 L Glucose 116 H - Diagnostic Findings Chest x-ray: image reviewed Assessment and Plan Assessment: COPD exacerbation complicated by bilateral pneumonia. History of ongoing tobacco use and nicotine addiction. Prior episode of ventilator dependent respiratory failure, August 2020. Bilateral pneumonia, April 2021. History of anxiety/depression. History of chronic back pain. Plan: Plan dated 04/16/2022. The patient is currently on Rocephin and azithromycin. The patient is also getting Robitussin, as well as updraft treatments with albuterol sulfate and ipratropium bromide. The patient's also getting Symbicort 160/4.5, 2 puffs twice a day. The patient is counseled about the importance of smoking cessation. The patient does not need corticosteroids in my opinion at this time. We will continue to follow and make recommendations were appropriate. Labs, x-rays, and medications are reviewed. Possible discharge in next 24-48 hours. Time with Patient: Greater than 30
[2022-04-16] MEDS: AZITHROMYCIN 500 MG in SODIUM CHLORIDE 0.9% 250 ML IVPB SCH (21:29)
[2022-04-16] MEDS: SYMBICORT 160-4.5 MCG INHALER INHALATION SCH (21:39)
[2022-04-17] MEDS: PANTOPRAZOLE 40 MG TABLET PO SCH (06:30)
[2022-04-17] MEDS: SYMBICORT 160-4.5 MCG INHALER INHALATION SCH ×2 (08:27→20:21)
[2022-04-17] MEDS: DULoxetine HCL 30 MG CAPSULE.DR PO SCH ×2 (08:34→21:27)
[2022-04-17] MEDS: HYDROcodone/APAP 7.5-325MG 1 EACH TAB PO PRN ×3 (08:34→22:19)
[2022-04-17] MEDS: BACLOFEN 10 MG TAB PO SCH ×3 (08:34→21:27)
[2022-04-17 09:03] LABS: HGB 14.3 g/dL (13.0-17.0); MCHC 32.5 g/dL (32.0-37.0); MCV 89.2 fL (80.0-97.0); NRBC Per 100 WBC 0 /100 WBCS (0.0-0.0); Platelet Count 249 X 10*3/uL (140-440); RBC 4.93 X 10*6/uL (4.40-5.60); RDW 13.7 % (11.5-14.5); WBC 13.97 X 10*3/uL (4.50-10.00)
[2022-04-17 09:22] LABS: African American GFR (CKD) 107.2 (60.0-200.0); Anion Gap 12.1 mmol/L (10.00-18.00); BUN/Creat Ratio 21.11 Ratio (12.00-20.00); Calcium 8.7 mg/dL (8.7-10.3); Carbon Dioxide 24.9 mmol/L (20.0-27.5); Non-African American GFR(CKD) 92.5 (60.0-200.0); Potassium 3.7 mmol/L (3.5-5.5)
[2022-04-17 11:45] VITALS: BMI 23.0
--- NOTE | 2022-04-17 15:07 | P.PN ---
Subjective Progress Note Date: 04/17/22 Patient is a pleasant a 8-year-old male with known history of COPD came in with compensative cough with green sputum production. Patient had a chest x-ray which showed bilateral lateral interstitial infiltrate suspicious for pneumonia because of which patient was admitted in the hospital patient was started on Rocephin and azithromycin patient is taking Augmentin as an outpatient. Patient denied any orthopnea paroxysmal nocturnal dyspnea. Patient does have smoking history. Pro-calcitonin level be ordered. Patient doesn't have any fever. 04/17. Patient seen and examined. States he feels much better. shortness of breath is improved. Patient has been afebrile REVIEW OF SYSTEMS: CONSTITUTIONAL: No fever, no malaise,. CARDIOVASCULAR: No chest pain, no palpitations, no syncope. PULMONARY: No shortness of breath, no cough, GASTROINTESTINAL: No diarrhea, no nausea, no vomiting, no abdominal pain. NEUROLOGICAL: No headaches, no weakness, PHYSICAL EXAMINATION: GENERAL: The patient is alert and oriented x3, not in any acute distress. Well developed, well nourished. HEENT: Pupils are round and equally reacting to light. EOMI. No scleral icterus. No conjunctival pallor. Normocephalic, atraumatic. No pharyngeal erythema. No thyromegaly. CARDIOVASCULAR: S1 and S2 present. No murmurs, rubs, or gallops. PULMONARY: Chest is clear to auscultation, no wheezing or crackles. ABDOMEN: Soft, nontender, nondistended, normoactive bowel sounds. No palpable organomegaly. MUSCULOSKELETAL: No joint swelling or deformity. EXTREMITIES: No cyanosis, clubbing, or pedal edema. NEUROLOGICAL: Gross neurological examination did not reveal any focal deficits. SKIN: No rashes. Assessment and plan Bacterial pneumonia -COPD mild acute exacerbation -Nicotine cessation counseling was provided -Depression Plan; Monitor vital signs Monitor CBC Continue IV Rocephin and azithromycin. Continue breathing treatments Possible discharge in the morning Objective - Vital Signs Vital signs: Vital Signs Temp 99.0 F 04/17/22 07:37 Pulse 65 04/17/22 08:34 Resp 17 04/17/22 08:34 BP 144/84 04/17/22 07:37 Pulse Ox 93 L 04/17/22 07:37 FiO2 Intake & Output 04/16/22 04/17/22 04/17/22 18:59 06:59 18:59 Weight 70.76 kg Other: # Voids 3 3 - Labs CBC & Chem 7: 04/17/22 05:40 04/17/22 05:40 Labs: Abnormal Lab Results - Last 24 Hours (Table) 04/16/22 04/17/22 04/17/22 Range/Units 10:42 05:40 05:40 WBC 13.97 H (4.50-10.00) X 10*3/uL BUN/Creatinine Ratio 21.11 H (12.00-20.00) Ratio Procalcitonin 0.16 H (0.02-0.09) ng/mL Microbiology - Last 24 Hours (Table) 04/15/22 18:27 Blood Culture - Preliminary Blood No Growth after 24 hours 04/15/22 18:10 Blood Culture - Preliminary Blood No Growth after 24 hours
[2022-04-17] MEDS: AZITHROMYCIN 500 MG in SODIUM CHLORIDE 0.9% 250 ML IVPB SCH (21:28)
[2022-04-18] MEDS: PANTOPRAZOLE 40 MG TABLET PO SCH (05:53)
[2022-04-18] MEDS: HYDROcodone/APAP 7.5-325MG 1 EACH TAB PO PRN ×2 (05:53→11:14)
[2022-04-18 07:34] VITALS: BP 149/87; PULSE 62; RESP 16; TEMP 98.3
--- NOTE | 2022-04-18 08:01 | XR ---
EXAMINATION TYPE: XR chest 1V portable DATE OF EXAM: 04/18/2022 6:54 AM COMPARISON: Chest radiographs from 04/15/2022 TECHNIQUE: XR chest 1V portable Frontal view of the chest. CLINICAL INDICATION:Male, 62 years old with history of Pneumonia; FINDINGS: Lungs/Pleura: Slight decrease in prominence of the interstitial lung markings. No pneumothorax or ple ural effusion. Heart/mediastinum: Cardiomediastinal silhouette is unremarkable. Musculoskeletal: No acute osseous pathology. Dorsal osteophytosis of the thoracic spine. Partial visu alization of cervical fusion hardware. IMPRESSION: Slight decrease in prominence of interstitial lung markings related to pulmonary edema versus atypica l viral pneumonia.
[2022-04-18] MEDS: SYMBICORT 160-4.5 MCG INHALER INHALATION SCH (08:38)
[2022-04-18] MEDS: DULoxetine HCL 30 MG CAPSULE.DR PO SCH (08:38)
[2022-04-18] MEDS: BACLOFEN 10 MG TAB PO SCH (08:38)
[2022-04-18 10:20] LABS: HGB 13.6 g/dL (13.0-17.0); MCH 28.3 pg (27.0-32.0); MCHC 32.4 g/dL (32.0-37.0); MCV 87.5 fL (80.0-97.0); Mean Platelet Volume 10.6 fL (9.5-12.2); NRBC Per 100 WBC 0 /100 WBCS (0.0-0.0); Platelet Count 248 X 10*3/uL (140-440); RDW 13.8 % (11.5-14.5); WBC 9.21 X 10*3/uL (4.50-10.00)
[2022-04-18 10:32] LABS: African American GFR (CKD) 112.5 (60.0-200.0); Albumin 3.5 g/dL (3.8-4.9); Albumin/Globulin Ratio 1.67 (1.60-3.17); Anion Gap 10.9 mmol/L (10.00-18.00); BUN/Creat Ratio 19.13 Ratio (12.00-20.00); Blood Urea Nitrogen 15.3 mg/dL (9.0-27.0); Calcium 8.7 mg/dL (8.7-10.3); Carbon Dioxide 25.1 mmol/L (20.0-27.5); Globulin 2.1 g/dL (1.6-3.3); Non-African American GFR(CKD) 97.1 (60.0-200.0); Potassium 3.8 mmol/L (3.5-5.5); Total Bilirubin 0.3 mg/dL (0.30-1.20); Total Protein 5.6 g/dL (6.2-8.2)
--- NOTE | 2022-04-18 11:45 | P.DS ---
Providers Date of admission: 04/15/22 17:44 Expected date of discharge: 04/18/22 Attending physician: Claire Sebastian Consults: 04/15/22 20:00 Consult Physician Routine Consulting Provider: Rui Norwood Reason/Comments: Pneumonia Do you want consulting provider notified?: Yes, Notify in am Primary care physician: Joseph Granger MD Hospital Course: Discharge diagnoses; Bacterial pneumonia -COPD mild acute exacerbation -Nicotine cessation counseling was provided -Depression Plan; Being discharged on oral Cefdinir for 2 more days. Discharge on Symbicort and albuterol when necessary. Outpatient follow-up with pulmonology Hospital course; Patient is a pleasant a 8-year-old male with known history of COPD came in with compensative cough with green sputum production. Patient had a chest x-ray which showed bilateral lateral interstitial infiltrate suspicious for pneumonia because of which patient was admitted in the hospital patient was started on Rocephin and azithromycin patient is taking Augmentin as an outpatient. Patient denied any orthopnea paroxysmal nocturnal dyspnea. Patient does have smoking history. Pro-calcitonin level be ordered. Patient doesn't have any fever. 04/17. Patient seen and examined. States he feels much better. shortness of breath is improved. Patient has been afebrile 12/16. Patient seen and examined. Patient continues to do well. Not requiring supplemental oxygen. Patient been transitioned to oral antibiotics at discharge. Also being discharged on Symbicort and albuterol when necessary inhalers. Patient also seen pulmonology, they agree with antibiotics and inhalers PHYSICAL EXAMINATION: GENERAL: The patient is alert and oriented x3, not in any acute distress. Well developed, well nourished. HEENT: Pupils are round and equally reacting to light. EOMI. No scleral icterus. No conjunctival pallor. Normocephalic, atraumatic. No pharyngeal erythema. No thyromegaly. CARDIOVASCULAR: S1 and S2 present. No murmurs, rubs, or gallops. PULMONARY: Chest is clear to auscultation, no wheezing or crackles. ABDOMEN: Soft, nontender, nondistended, normoactive bowel sounds. No palpable organomegaly. MUSCULOSKELETAL: No joint swelling or deformity. EXTREMITIES: No cyanosis, clubbing, or pedal edema. NEUROLOGICAL: Gross neurological examination did not reveal any focal deficits. SKIN: No rashes. Patient Condition at Discharge: Stable Plan - Discharge Summary Discharge Rx Participant: Yes New Discharge Prescriptions: New Cefdinir 300 mg PO Q12HR #4 cap Budesonide-Formot 160-4.5 Mcg [Symbicort 160-4.5 Mcg Inhaler] 2 puff INHALATION RT-BID #1 each Albuterol Inhaler [Ventolin Hfa Inhaler] 2 puff INHALATION QID PRN #8 gm PRN Reason: Respiratory Distress Continue Baclofen [Lioresal] 20 mg PO TID DULoxetine HCL [Cymbalta] 30 mg PO BID Meloxicam [Mobic] 15 mg PO DAILY PRN PRN Reason: Pain HYDROcodone/APAP 7.5-325MG [[place] 7.5-325] 1 tab PO DAILY dexAMETHasone [Decadron] 10 mg PO ONCE Discontinued Azithromycin [Zithromax Z Pack] See Taper PO DAILY Amoxic-Pot Clav 875-125Mg [Augment[place] 875-125] 1 tab PO BID Discharge Medication List Baclofen [Lioresal] 20 mg PO TID 01/14/20 [History] HYDROcodone/APAP 7.5-325MG [[place] 7.5-325] 1 tab PO DAILY 04/25/21 [History] DULoxetine HCL [Cymbalta] 30 mg PO BID 04/15/22 [History] Meloxicam [Mobic] 15 mg PO DAILY PRN 04/15/22 [History] dexAMETHasone [Decadron] 10 mg PO ONCE 04/15/22 [History] Albuterol Inhaler [Ventolin Hfa Inhaler] 2 puff INHALATION QID PRN #8 gm 1 06/18/21 [Rx] Budesonide-Formot 160-4.5 Mcg [Symbicort 160-4.5 Mcg Inhaler] 2 puff INHALATION RT-BID #1 each 04/18/22 [Rx] Cefdinir 300 mg PO Q12HR #4 cap 04/18/22 [Rx] Follow up Appointment(s)/Referral(s): Joseph Granger MD [Primary Care Provider] - 1-2 days Rui Norwood DO [Doctor of Osteopathic Medicine] - 1 Week Discharge Disposition: HOME SELF-CARE
== END 2022-04-18 12:07 | disposition home or self-care (01) | DRG 194 ==
LOC: EC 14:42 → 4SSUR 17:44
PROVIDERS: ADMIT Internal Medicine; ATTEND Internal Medicine
DX: J15.9 Unspecified bacterial pneumonia (principal); J44.0 Chronic obstructive pulmonary disease with (acute) lower respiratory infection; J44.1 Chronic obstructive pulmonary disease with (acute) exacerbation; Z99.11 Dependence on respirator [ventilator] status; Z20.822 Contact with and (suspected) exposure to COVID-19; F17.210 Nicotine dependence, cigarettes, uncomplicated; F32.A Depression, unspecified; Z71.6 Tobacco abuse counseling; Z79.1 Long term (current) use of non-steroidal anti-inflammatories (NSAID); Z79.899 Other long term (current) drug therapy; Z98.1 Arthrodesis status; Z88.8 Allergy status to other drugs, medicaments and biological substances
CPT/HCPCS: 36415; 71045; 71046; 80048; 80053; 83735; 83880; 84145; 85025; 85027; 85610; 85730; 87040; 87635; 94640; 99285

== ENCOUNTER 2022-04-22 11:13 | Inpatient (IN) | payer OTHER ==
[2022-04-22 12:16] LABS: Basophils % (A) 1 %; Eosinophils # (A) 0.2 k/uL (0-0.7); Eosinophils % (A) 3 %; HCT 45.5 % (39.0-53.0); HGB 15.3 gm/dL (13.0-17.5); Lymphocytes # (A) 1.5 k/uL (1.0-4.8); Lymphocytes % (A) 20 %; MCH 29.8 pg (25.0-35.0); MCHC 33.6 g/dL (31.0-37.0); MCV 88.8 fL (80.0-100.0); Mean Platelet Volume 8.6; Monocytes # (A) 0.5 k/uL (0-1.0); Monocytes % (A) 6 %; Neutrophils # (A) 5.3 k/uL (1.3-7.7); Neutrophils % (A) 70 %; Platelet Count 336 k/uL (150-450); RBC 5.12 m/uL (4.30-5.90); WBC 7.6 k/uL (3.8-10.6)
[2022-04-22 12:22] LABS: VBG PH 7.31 (7.31-7.41)
[2022-04-22 12:27] LABS: ALT 67 U/L (4-49); AST 19 U/L (17-59); African American GFR (CKD) >90 (>60 ml/min/1.73 sqM); Albumin 4.2 g/dL (3.5-5.0); Alkaline Phosphatase 107 U/L (38-126); Anion Gap 7 mmol/L; Blood Urea Nitrogen 11 mg/dL (9-20); Calcium 9.1 mg/dL (8.4-10.2); Carbon Dioxide 27 mmol/L (22-30); Chloride 110 mmol/L (98-107); Glucose 129 mg/dL (74-99); INR 0.9 (<1.2); Magnesium 2.4 mg/dL (1.6-2.3); Non-African American GFR(CKD) >90 (>60 ml/min/1.73 sqM); Partial Thromboplastin Time 27.5 sec (22.0-30.0); Potassium 4.2 mmol/L (3.5-5.1); Prothrombin Time 9.8 sec (9.0-12.0); Sodium 144 mmol/L (137-145); Total Bilirubin 0.5 mg/dL (0.2-1.3); Total Protein 6.8 g/dL (6.3-8.2)
--- NOTE | 2022-04-22 12:34 | XR ---
EXAMINATION TYPE: XR chest 2V DATE OF EXAM: 04/22/2022 COMPARISON: 04/18/2022 HISTORY: Pneumonia TECHNIQUE: Frontal and lateral views of the chest are obtained. FINDINGS: The right hilum appears prominent compared to the prior study. There is no interstitial opacity. There is no pleural effusion or pneumothorax. The heart and pulmonary vasculature are normal. IMPRESSION: Opacity developing in the right hilar region likely representing an acute pneumonic infiltrate. Clini roshan correlation short-term follow-up to resolution is recommended
--- NOTE | 2022-04-22 12:51 | ED ---
Chest Pain HPI - General Chief Complaint: Chest Pain Stated Complaint: dizzy, confusion Time Seen by Provider: 04/22/22 12:00 Source: patient, RN notes reviewed Mode of arrival: wheelchair Limitations: no limitations - History of Present Illness Initial Comments: 8-year-old male with a history of COPD pneumonia and depression who is a smoker who presents to the emergency department today with complaints of some dizziness confusion and midsternal chest pain it occurred yesterday. Per the patient's he's been not sleeping not eating or drinking well. He was just discharged 2 days ago after being admitted for suspected bilateral interstitial pneumonia. He was discharged on Cefdinir by mouth. No falls he still has a cough. He'll have intermittent episodes of being lucid and then be minimally responsive. Per his he did have a previous experience of this in the past with a pneumonia. He still has a cough no overt phlegm no chest pain reported at this time. No other current complaints or modifying factors MD Complaint: chest pain, other - Related Data Home Medications Medication Instructions Recorded Confirmed Baclofen [Lioresal] 20 mg PO TID 01/14/20 04/22/22 HYDROcodone/APAP 7.5-325MG [[place] 1 tab PO DAILY PRN 04/25/21 04/22/22 7.5-325] DULoxetine HCL [Cymbalta] 30 mg PO BID 04/15/22 04/22/22 Meloxicam [Mobic] 15 mg PO DAILY PRN 04/15/22 04/22/22 Albuterol Inhaler [Ventolin Hfa 2 puff INHALATION RT-QID PRN 04/22/22 04/22/22 Inhaler] Previous Rx's Medication Instructions Recorded Budesonide-Formot 160-4.5 Mcg 2 puff INHALATION RT-BID #1 each 04/18/22 [Symbicort 160-4.5 Mcg Inhaler] Allergies Allergy/AdvReac Type Severity Reaction Status Date / Time potassium chloride Allergy Swelling Verified 04/22/22 14:44 [From Klor-Con] sacubitril [From Entresto] Allergy Unknown Verified 04/22/22 14:44 valsartan [From Entresto] Allergy Unknown Verified 04/22/22 14:44 Review of Systems ROS Statement: Those systems with pertinent positive or pertinent negative responses have been documented in the HPI. ROS Other: All systems not noted in ROS Statement are negative. EKG Findings - EKG Results: EKG: interpreted by ERMD, sinus rhythm (I did interpret the EKG showed a sinus rhythm with a short IA interval the ventricular rate was 61. Interval 114 QRS duration 70 QT since QTC 437/440 this is compared with EKG dated 04/30/21 showing similar configuration except for with today's EKG there is no PVCs or PACs) Past Medical History Past Medical History: COPD, Pneumonia Additional Past Medical History / Comment(s): back pain History of Any Multi-Drug Resistant Organisms: None Reported Past Surgical History: Back Surgery Additional Past Surgical History / Comment(s): neck fusion,rt eye surgery, rt hand surgery Past Anesthesia/Blood Transfusion Reactions: No Reported Reaction Past Psychological History: Depression Smoking Status: Current every day smoker Past Alcohol Use History: Occasional Past Drug Use History: Marijuana - Past Family History Mother History Unknown: Yes Family Medical History: Myocardial Infarction ([place]) Additional Family Medical History / Comment(s): from [place] General Exam - General Exam Comments Initial Comments: Is a well-developed well-nourished awake lethargic male Limitations: no limitations General appearance: alert, lethargic Head exam: Present: atraumatic, normocephalic, normal inspection Eye exam: Present: normal appearance, PERRL, EOMI. Absent: scleral icterus, conjunctival injection, periorbital swelling ENT exam: Present: mucous membranes dry Neck exam: Present: normal inspection, full ROM, other (No stridor JVD or bruits well-healed surgical scars from previous surgery). Absent: tenderness, meningismus, lymphadenopathy Respiratory exam: Present: decreased breath sounds. Absent: respiratory distress, wheezes, rales, rhonchi, stridor Cardiovascular Exam: Present: regular rate, normal rhythm, normal heart sounds. Absent: systolic murmur, diastolic murmur, rubs, gallop, clicks GI/Abdominal exam: Present: soft, normal bowel sounds. Absent: distended, tenderness, guarding, rebound, rigid Extremities exam: Present: normal inspection, full ROM, normal capillary refill. Absent: tenderness, pedal edema, joint swelling, calf tenderness Back exam: Present: normal inspection Neurological exam: Present: alert, oriented X3, CN II-XII intact Psychiatric exam: Present: normal affect, normal mood Skin exam: Present: warm, dry, intact, normal color. Absent: rash Course Vital Signs 04/22/22 04/22/22 04/22/22 11:20 12:05 12:50 Temperature 97.8 F 96.8 F L Pulse Rate 68 62 Respiratory 16 20 18 Rate Blood Pressure 120/78 132/88 O2 Sat by Pulse 95 98 Oximetry Chest Pain MDM - MDM I did interpret the chest x-ray today the patient x-ray today shows evidence of a right side perihilar infiltrate not seen on the previous x-ray done on the last admission. Otherwise no change CT shows evidence of old lacunar infarct no acute processes other than evidence of bilateral maxillary sinusitis this was read by me. I did discuss findings with patient family members also with Dr. Lewis. He'll be admitted consultation by neurology as well as infectious disease. Disposition Clinical Impression: Acute confusional state, Pneumonia, Sinusitis, Dehydration, Failure of outpatient treatment Disposition: ADMITTED IP TO THIS [facility] Condition: Fair Referrals: Joseph Granger MD [Primary Care Provider] - 1-2 days Decision Date: 04/22/22 Decision Time: 15:00
--- NOTE | 2022-04-22 13:36 | CT ---
EXAMINATION TYPE: CT brain wo con DATE OF EXAM: 04/22/2022 COMPARISON: None HISTORY: ams CT DLP: 1119.6 mGycm Automated exposure control for dose reduction was used. FINDINGS: The ventricles, basal cisterns and sulci over the convexities are within normal limits and there is n o mass effect or shift of midline structures. There is a tiny remote lacunar infarct in the left frontal white matter. There is no acute intra or extra-axial hemorrhage. The posterior fossa is grossly normal. Intraorbital contents appear normal and symmetric. There are marked inflammatory changes in the right maxillary sinus which could be acute. There is mil d chronic inflammatory change in the left maxillary sinus. The mastoid air cells are well aerated. IMPRESSION: 1. Small remote lacunar infarct in the white matter of the left frontal lobe. 2. No acute bleed or mass effect. 3. Bilateral maxillary sinusitis. IMPRESSION:
[2022-04-22] MEDS ORDERED: VANCOMYCIN IV PER PHARMACY 1 EACH MISC MISCELLANE PRN (15:30)
[2022-04-22] MEDS ORDERED: PNEUMONIA PROTOCOL UTILIZED 1 EACH MISC PO PRN (15:30)
[2022-04-22] MEDS ORDERED: PIPERACILLIN-TAZOBACTAM 3.375 GM in SODIUM CHLORIDE 0.9% 100 ML IVPB STA (15:30)
[2022-04-22] MEDS ORDERED: VANCOMYCIN 1,250 MG in SODIUM CHLORIDE 0.9% 250 ML IVPB STA (15:43)
[2022-04-22 15:47] LABS: Appearance,Urine Clear (Clear); Bilirubin,Urine Negative (Negative); Blood,Urine Negative (Negative); Color,Urine Yellow; Glucose,Urine (UA) Negative (Negative); Hyaline Casts,Urine 3 /lpf (0-2); Ketones,Urine Negative (Negative); Leukocyte Esterase,Urine Negative (Negative); Mucus,Urine Occasional /hpf; Nitrite,Urine Negative (Negative); PH, Urine 6.5 (5.0-8.0); Protein,Urine 1+ (Negative); RBC,Urine <1 /hpf (0-5); Specific Gravity,Urine 1.018 (1.001-1.035); Urobilinogen,Urine <2.0 mg/dL (<2.0); WBC,Urine 1 /hpf (0-5)
[2022-04-22 15:55] LABS: Amphetamine Screen,Urine Not Detected (NotDetected); Barbiturate Screen,Urine Not Detected (NotDetected); Benzodiazepines Screen,Urine Detected (NotDetected); Cocaine Screen,Urine Not Detected (NotDetected); Methadone Screen, Urine Not Detected (NotDetected); Opiate Screen,Urine Not Detected (NotDetected); Oxycodone Screen, Urine Not Detected (NotDetected); Phencyclidine Screen,Urine Not Detected (NotDetected); Tricyclic Antidepressant,Urine Not Detected (NotDetected); Urn Cannabinoid Scrn Detected (NotDetected)
[2022-04-22] MEDS: SODIUM CHLORIDE 0.9% 1,000 ML IV SCH (16:36)
[2022-04-22] MEDS ORDERED: BUTALB/APAP/CAFF 50-325-40MG TAB PO PRN (19:18)
[2022-04-22] MEDS: SYMBICORT 160-4.5 MCG INHALER INHALATION SCH (19:24)
[2022-04-22] MEDS: ALBUTEROL HFA INHALER INHALATION PRN (19:24)
[2022-04-22] MEDS: DULoxetine HCL 30 MG CAPSULE.DR PO SCH (20:55)
--- NOTE | 2022-04-22 23:26 | P.CONS ---
History of Present Illness - Reason for Consult Consult date: 04/22/22 - History of Present Illness Patient is a 62-year-old male with a past medical history significant for COPD recent admission to the hospital and was treated for COPD exacerbation received Rocephin and subsequent discharged on Ceftin patient now presenting back to the hospital for evaluation of dizziness confusion and midsternal chest pain patient mentioned that he was not acting himself this morning patient is complaining of cough which has been moderate intensity with occasional sputum production denies any hemoptysis patient denies having any nausea no vomiting no abdominal pain no diarrhea on presentation to the hospital the patient was afebrile and no fever has been recorded subsequently patient did have a normal white count kidney function has been normal urine has been negative urine testing was positive for marijuana and benzo patient did have a chest x-ray opacity developing right hilar region concerning for possible acute pneumonia patient did have a CT of the brain that was negative for any bleed or acute infarct patient was started on vancomycin and Zosyn admitted to the hospital i nfectious disease was consulted for further management of antibiotic therapy Past Medical History Past Medical History: COPD, Pneumonia Additional Past Medical History / Comment(s): back pain History of Any Multi-Drug Resistant Organisms: None Reported Past Surgical History: Back Surgery Additional Past Surgical History / Comment(s): neck fusion,rt eye surgery, rt hand surgery Past Anesthesia/Blood Transfusion Reactions: No Reported Reaction Past Psychological History: Depression Smoking Status: Current every day smoker Past Alcohol Use History: Occasional Past Drug Use History: Marijuana - Past Family History Mother History Unknown: Yes Family Medical History: Myocardial Infarction ([place]) Additional Family Medical History / Comment(s): from [place] Medications and Allergies Home Medications Medication Instructions Recorded Confirmed Type Baclofen [Lioresal] 20 mg PO TID 01/14/20 04/22/22 History HYDROcodone/APAP 7.5-325MG [[place] 1 tab PO DAILY PRN 04/25/21 04/22/22 History 7.5-325] DULoxetine HCL [Cymbalta] 30 mg PO BID 04/15/22 04/22/22 History Meloxicam [Mobic] 15 mg PO DAILY PRN 04/15/22 04/22/22 History Budesonide-Formot 160-4.5 Mcg 2 puff INHALATION RT-BID #1 each 04/18/22 04/22/22 Rx [Symbicort 160-4.5 Mcg Inhaler] Albuterol Inhaler [Ventolin Hfa 2 puff INHALATION RT-QID PRN 04/22/22 04/22/22 History Inhaler] Allergies Allergy/AdvReac Type Severity Reaction Status Date / Time potassium chloride Allergy Swelling Verified 04/22/22 14:44 [From Klor-Con] sacubitril [From Entresto] Allergy Unknown Verified 04/22/22 14:44 valsartan [From Entresto] Allergy Unknown Verified 04/22/22 14:44 Physical Exam Vitals: Vital Signs Temp Pulse Resp BP Pulse Ox 04/22/22 16:00 61 18 119/75 99 04/22/22 15:00 56 L 105/78 04/22/22 14:00 62 20 112/82 04/22/22 13:00 63 18 132/88 98 04/22/22 12:50 96.8 F L 62 18 132/88 98 04/22/22 12:05 20 04/22/22 12:00 65 20 137/94 04/22/22 11:54 63 22 04/22/22 11:20 97.8 F 68 16 120/78 95 Intake and Output 04/22/22 04/22/22 04/22/22 06:59 14:59 22:59 Other: Weight 66.678 kg Results CBC & Chem 7: 04/22/22 12:06 04/22/22 12:06 Labs: Abnormal Lab Results - Last 24 Hours (Table) 04/22/22 04/22/22 04/22/22 Range/Units 12:06 12:14 15:21 VBG HCO3 23 L (24-28) mmol/L Chloride 110 H (98-107) mmol/L Glucose 129 H (74-99) mg/dL Magnesium 2.4 H (1.6-2.3) mg/dL ALT 67 H (4-49) U/L Urine Protein 1+ H (Negative) Hyaline Casts 3 H (0-2) /lpf Urine Mucus Occasional H (None) /hpf U Benzodiazepines Scrn (NotDetected) U Marijuana (THC) Screen (NotDetected) 04/22/22 Range/Units 15:21 VBG HCO3 (24-28) mmol/L Chloride (98-107) mmol/L Glucose (74-99) mg/dL Magnesium (1.6-2.3) mg/dL ALT (4-49) U/L Urine Protein (Negative) Hyaline Casts (0-2) /lpf Urine Mucus (None) /hpf U Benzodiazepines Scrn Detected H (NotDetected) U Marijuana (THC) Screen Detected H (NotDetected) Assessment and Plan Plan: 1patient presented to hospital with some confusion increasing shortness of breath did have a cough with evidence of right middle lung pneumonia in this patient with recent admission to the hospital and treated for COVID exacerbation will need to cover for the residual gram-negative to be the likely etiology for this the morning less likely gram-positive. 2we will obtain a sputum for gram stain and culture 3check inflammatory markers 4continue with the Zosyn however discontinue vancomycin to decrease risk of nephrotoxicity we will follow on clinical condition and cultures to further adjust medication if needed Thank you for this consultation will follow this patient along with you Time with Patient: Greater than 30
[2022-04-23] MEDS: PIPERACILLIN-TAZOBACTAM 3.375 GM in SODIUM CHLORIDE 0.9% 100 ML IVPB SCH ×3 (00:29→16:01)
[2022-04-23] MEDS: SODIUM CHLORIDE 0.9% 1,000 ML IV SCH ×3 (05:05→22:28)
[2022-04-23] MEDS ORDERED: VANCOMYCIN 1,250 MG in SODIUM CHLORIDE 0.9% 250 ML IVPB SCH (07:00)
--- NOTE | 2022-04-23 07:20 | XR ---
EXAMINATION TYPE: XR chest 2V DATE OF EXAM: 04/23/2022 COMPARISON: 12/20/2021 HISTORY: Follow-up pneumonia TECHNIQUE: Frontal and lateral views of the chest are obtained. FINDINGS: The opacity in the right hilar region appears less dense on the current study. The left chaz ng remains clear. There is no pleural effusion or pneumothorax. The heart and pulmonary vasculature are normal. The osseous structures are intact IMPRESSION: Decreased opacity in the right hilar region consistent with improving pneumonia. Follow- up to resolution is recommended..
[2022-04-23] MEDS: DULoxetine HCL 30 MG CAPSULE.DR PO SCH ×2 (08:00→22:27)
[2022-04-23] MEDS: SYMBICORT 160-4.5 MCG INHALER INHALATION SCH ×2 (08:12→19:38)
[2022-04-23] MEDS: ALBUTEROL HFA INHALER INHALATION PRN ×4 (08:13→19:39)
--- NOTE | 2022-04-23 12:58 | P.HPIM ---
History of Present Illness H&P Date: 04/22/22 History of present illness; patient is 62-year-old gentleman with past medical history significant for COPD, and tobacco addiction who presented to The ER because of increasing lethargic and confusion. Patient was discharged on oral antibiotics, patient completed his course of oral antibiotics. noticed that the patient for the last couple of days was very lethargic and not sleeping much. There was no fever or chills. Patient was worked up in the ER, chest x- ray showed new right-sided perihilar infiltrate. Patient will be admitted for further evaluation. REVIEW OF SYSTEMS: CONSTITUTIONAL: Complaining of lethargy and fatigue HEENT: No recent visual problems or hearing problems. Denied any sore throat. CARDIOVASCULAR: No chest pain, orthopnea, PND, no palpitations, no syncope. PULMONARY: Complaining of shortness of breath. no cough, no hemoptysis. GASTROINTESTINAL: No diarrhea, no nausea, no vomiting, no abdominal pain. NEUROLOGICAL: No headaches, no weakness, no numbness. HEMATOLOGICAL: Denies any bleeding or petechiae. GENITOURINARY: Denies any burning micturition, frequency, or urgency. MUSCULOSKELETAL/RHEUMATOLOGICAL: Denies any joint pain, swelling, or any muscle pain. ENDOCRINE: Denies any polyuria or polydipsia. The rest of the 14-point review of systems is negative. PHYSICAL EXAMINATION: GENERAL: The patient is alert and oriented x3, not in any acute distress. Well developed, well nourished. HEENT: Pupils are round and equally reacting to light. EOMI. No scleral icterus. No conjunctival pallor. Normocephalic, atraumatic. No pharyngeal erythema. No thyromegaly. CARDIOVASCULAR: S1 and S2 present. No murmurs, rubs, or gallops. PULMONARY: Coarse breath some bilaterally, no wheezing or crackles. ABDOMEN: Soft, nontender, nondistended, normoactive bowel sounds. No palpable organomegaly. MUSCULOSKELETAL: No joint swelling or deformity. EXTREMITIES: No cyanosis, clubbing, or pedal edema. NEUROLOGICAL: Gross neurological examination did not reveal any focal deficits. SKIN: No rashes. Assessment and plan Bacterial pneumonia Acute infectious encephalopathy -COPD mild acute exacerbation -Nicotine cessation counseling was provided -Depression -Marijuana abuse Plan; Monitor vital signs Monitor CBC Ordered Sputum culture Ordered Blood cultures Continue IV Zosyn and vancomycin Consult ID Consult neurology Resume home meds DVT prophylaxis: Past Medical History Past Medical History: COPD, Pneumonia Additional Past Medical History / Comment(s): back pain History of Any Multi-Drug Resistant Organisms: None Reported Past Surgical History: Back Surgery Additional Past Surgical History / Comment(s): neck fusion,rt eye surgery, rt hand surgery Past Anesthesia/Blood Transfusion Reactions: No Reported Reaction Past Psychological History: Depression Smoking Status: Current every day smoker Past Alcohol Use History: Occasional Past Drug Use History: Marijuana - Past Family History Mother History Unknown: Yes Family Medical History: Myocardial Infarction ([place]) Additional Family Medical History / Comment(s): from [place] Medications and Allergies Home Medications Medication Instructions Recorded Confirmed Type Baclofen [Lioresal] 20 mg PO TID 01/14/20 04/22/22 History HYDROcodone/APAP 7.5-325MG [[place] 1 tab PO DAILY PRN 04/25/21 04/22/22 History 7.5-325] DULoxetine HCL [Cymbalta] 30 mg PO BID 04/15/22 04/22/22 History Meloxicam [Mobic] 15 mg PO DAILY PRN 04/15/22 04/22/22 History Budesonide-Formot 160-4.5 Mcg 2 puff INHALATION RT-BID #1 each 04/18/22 04/22/22 Rx [Symbicort 160-4.5 Mcg Inhaler] Albuterol Inhaler [Ventolin Hfa 2 puff INHALATION RT-QID PRN 04/22/22 04/22/22 History Inhaler] Allergies Allergy/AdvReac Type Severity Reaction Status Date / Time potassium chloride Allergy Swelling Verified 04/22/22 14:44 [From Klor-Con] sacubitril [From Entresto] Allergy Unknown Verified 04/22/22 14:44 valsartan [From Entresto] Allergy Unknown Verified 04/22/22 14:44 Physical Exam Vitals: Vital Signs Temp Pulse Resp BP Pulse Ox 04/22/22 12:50 96.8 F L 62 18 132/88 98 04/22/22 12:05 20 04/22/22 11:20 97.8 F 68 16 120/78 95 Intake and Output 04/21/22 04/22/22 04/22/22 22:59 06:59 14:59 Other: Weight 66.678 kg Results CBC & Chem 7: 04/22/22 12:06 04/22/22 12:06 Labs: Abnormal Lab Results - Last 24 Hours (Table) 04/22/22 04/22/22 Range/Units 12:06 12:14 VBG HCO3 23 L (24-28) mmol/L Chloride 110 H (98-107) mmol/L Glucose 129 H (74-99) mg/dL Magnesium 2.4 H (1.6-2.3) mg/dL ALT 67 H (4-49) U/L
--- NOTE | 2022-04-23 13:02 | P.PN ---
Subjective Progress Note Date: 04/23/22 patient is 62-year-old gentleman with past medical history significant for COPD, and tobacco addiction who presented to The ER because of increasing lethargic and confusion. Patient was discharged on oral antibiotics, patient completed his course of oral antibiotics. noticed that the patient for the last couple of days was very lethargic and not sleeping much. There was no fever or chills. Patient was worked up in the ER, chest x-ray showed new right-sided perihilar infiltrate. Patient will be admitted for further evaluation. 04/23. Patient seen and examined. Currently denies any shortness of breath. Complaining of generalized fatigue and lethargy. Discussed with regarding her urine drug screen results of it being positive for benzodiazepine and marijuana, he agreed that he took marijuana and Plavix REVIEW OF SYSTEMS: CONSTITUTIONAL: No fever, no malaise,. CARDIOVASCULAR: No chest pain, no palpitations, no syncope. PULMONARY: No shortness of breath, no cough, GASTROINTESTINAL: No diarrhea, no nausea, no vomiting, no abdominal pain. NEUROLOGICAL: No headaches, no weakness, PHYSICAL EXAMINATION: GENERAL: The patient is alert and oriented x3, not in any acute distress. Well developed, well nourished. HEENT: Pupils are round and equally reacting to light. EOMI. No scleral icterus. No conjunctival pallor. Normocephalic, atraumatic. No pharyngeal erythema. No thyromegaly. CARDIOVASCULAR: S1 and S2 present. No murmurs, rubs, or gallops. PULMONARY: Chest is clear to auscultation, no wheezing or crackles. ABDOMEN: Soft, nontender, nondistended, normoactive bowel sounds. No palpable organomegaly. MUSCULOSKELETAL: No joint swelling or deformity. EXTREMITIES: No cyanosis, clubbing, or pedal edema. NEUROLOGICAL: Gross neurological examination did not reveal any focal deficits. SKIN: No rashes. Assessment and plan Bacterial pneumonia Acute infectious/metabolic encephalopathy -COPD mild acute exacerbation -Nicotine cessation counseling was provided -Depression -Marijuana abuse Plan; Monitor vital signs Monitor CBC Follow-up on blood cultures Follow-up on sputum culture Continue IV Zosyn , vancomycin discontinued by ID Follow-up in ID recs Objective - Vital Signs Vital signs: Vital Signs Temp 97.9 F 04/23/22 08:00 Pulse 75 04/23/22 08:00 Resp 16 04/23/22 10:16 BP 124/76 04/23/22 08:00 Pulse Ox 97 04/23/22 08:13 FiO2 21 04/23/22 08:13 Intake & Output 04/22/22 04/23/22 04/23/22 18:59 06:59 18:59 Intake Total 2049 200 Balance 2049 200 Weight 66.678 kg Intake: Intake, IV Titration 1550 Amount Piperacillin-Tazobactam 3 100 .375 gm In Sodium Chloride 0.9% 100 ml @ 25 mls/hr IVPB Q8HR [facility] Rx# :[id number] Sodium Chloride 0.9% 1, 1200 000 ml @ 100 mls/hr IV . Q10H [facility] Rx#:[id number] Vancomycin 1,250 mg In 250 Sodium Chloride 0.9% 250 ml @ 125 mls/hr IVPB Q12H [facility] Rx#:[id number] Oral 500 200 Other: Voiding Method Toilet - Labs CBC & Chem 7: 04/22/22 12:06 04/22/22 12:06 Labs: Abnormal Lab Results - Last 24 Hours (Table) 04/22/22 04/22/22 04/23/22 Range/Units 15:21 15:21 05:02 ESR (0-15) mm/hr C-Reactive Protein 4.3 H (<1.0) mg/dL Urine Protein 1+ H (Negative) Hyaline Casts 3 H (0-2) /lpf Urine Mucus Occasional H (None) /hpf U Benzodiazepines Scrn Detected H (NotDetected) U Marijuana (THC) Screen Detected H (NotDetected) 04/23/22 Range/Units 05:02 ESR 28 H (0-15) mm/hr C-Reactive Protein (<1.0) mg/dL Urine Protein (Negative) Hyaline Casts (0-2) /lpf Urine Mucus (None) /hpf U Benzodiazepines Scrn (NotDetected) U Marijuana (THC) Screen (NotDetected)
[2022-04-23] MEDS: HYDROcodone/APAP 5-325MG 1 EACH TAB PO PRN ×2 (13:11→20:12)
[2022-04-23] MEDS: BACLOFEN 10 MG TAB PO PRN ×2 (13:12→20:14)
--- NOTE | 2022-04-23 15:56 | P.PN ---
Subjective Progress Note Date: 04/23/22 Principal diagnosis: Pneumonia Patient is a 62-year-old male with a past medical history significant for COPD recent admission to the hospital and was treated for COPD exacerbation received Rocephin and subsequent discharged on Ceftin patient now presenting back to the hospital for evaluation of dizziness confusion and midsternal chest pain , patient did have evidence of right midlung pneumonia on the chest x-ray. On today's evaluation that is 04/23/2022, the patient is afebrile the patient is breathing comfortably on room air, the patient denies having any chest pain the patient cough is decreased intensity is bring up some sputum or hemoptysis, nausea no vomiting no abdominal pain or diarrhea Objective - Vital Signs Vital signs: Vital Signs Temp 98.6 F 04/23/22 14:00 Pulse 69 04/23/22 14:00 Resp 16 04/23/22 14:00 BP 111/74 04/23/22 14:00 Pulse Ox 95 04/23/22 14:00 FiO2 21 04/23/22 08:13 Intake & Output 04/22/22 04/23/22 04/23/22 18:59 06:59 18:59 Intake Total 2049 200 Balance 2049 200 Weight 66.678 kg Intake: Intake, IV Titration 1550 Amount Piperacillin-Tazobactam 3 100 .375 gm In Sodium Chloride 0.9% 100 ml @ 25 mls/hr IVPB Q8HR [facility] Rx# :[id number] Sodium Chloride 0.9% 1, 1200 000 ml @ 100 mls/hr IV . Q10H [facility] Rx#:[id number] Vancomycin 1,250 mg In 250 Sodium Chloride 0.9% 250 ml @ 125 mls/hr IVPB Q12H [facility] Rx#:[id number] Oral 500 200 Other: Voiding Method Toilet - Exam GENERAL DESCRIPTION: Middle-age male lying in bed in no distress RESPIRATORY SYSTEM: Unlabored breathing , decreased intensity of breath sounds , no wheeze HEART: S1 S2 regular rate and rhythm , ABDOMEN: Soft , no tenderness EXTREMITIES: No edema feet - Labs CBC & Chem 7: 04/22/22 12:06 04/22/22 12:06 Labs: Abnormal Lab Results - Last 24 Hours (Table) 04/22/22 04/22/22 04/23/22 Range/Units 15:21 15:21 05:02 ESR (0-15) mm/hr C-Reactive Protein 4.3 H (<1.0) mg/dL Urine Protein 1+ H (Negative) Hyaline Casts 3 H (0-2) /lpf Urine Mucus Occasional H (None) /hpf U Benzodiazepines Scrn Detected H (NotDetected) U Marijuana (THC) Screen Detected H (NotDetected) 04/23/22 Range/Units 05:02 ESR 28 H (0-15) mm/hr C-Reactive Protein (<1.0) mg/dL Urine Protein (Negative) Hyaline Casts (0-2) /lpf Urine Mucus (None) /hpf U Benzodiazepines Scrn (NotDetected) U Marijuana (THC) Screen (NotDetected) Assessment and Plan (1) Failure of outpatient treatment Current Visit: Yes Status: Acute Code(s): Z78.9 - OTHER SPECIFIED HEALTH STATUS SNOMED Code(s): 917529420 (2) Pneumonia Current Visit: Yes Status: Acute Code(s): J18.9 - PNEUMONIA, UNSPECIFIED ORGANISM SNOMED Code(s): 297091157 Plan: 1patient presented to hospital with some confusion increasing shortness of breath did have a cough with evidence of right middle lung pneumonia in this patient with recent admission to the hospital and treated for COVID exacerbation will need to cover for the residual gram-negative to be the likely etiology for this the morning less likely gram-positive. 2we will waiting for a sputum for gram stain and culture 3patient seemed to show some clinical improvement and will continue with the Zosyn while waiting for the cultures to finalize Time with Patient: Less than 30
[2022-04-24] MEDS: PIPERACILLIN-TAZOBACTAM 3.375 GM in SODIUM CHLORIDE 0.9% 100 ML IVPB SCH ×2 (00:16→08:24)
[2022-04-24 04:50] VITALS: RESP 16
[2022-04-24] MEDS: HYDROcodone/APAP 5-325MG 1 EACH TAB PO PRN ×2 (06:43→13:58)
[2022-04-24] MEDS: BACLOFEN 10 MG TAB PO PRN ×2 (06:43→13:59)
[2022-04-24] MEDS: ALBUTEROL HFA INHALER INHALATION PRN ×2 (08:22→12:06)
[2022-04-24] MEDS: SYMBICORT 160-4.5 MCG INHALER INHALATION SCH (08:22)
[2022-04-24] MEDS: DULoxetine HCL 30 MG CAPSULE.DR PO SCH (08:23)
[2022-04-24] MEDS: SODIUM CHLORIDE 0.9% 1,000 ML IV SCH (08:27)
[2022-04-24 08:38] LABS: HCT 37.1 % (39.6-50.0); HGB 11.9 g/dL (13.0-17.0); MCH 28.9 pg (27.0-32.0); MCHC 32.1 g/dL (32.0-37.0); Mean Platelet Volume 10.6 fL (9.5-12.2); NRBC Per 100 WBC 0 /100 WBCS (0.0-0.0); Platelet Count 307 X 10*3/uL (140-440); RBC 4.12 X 10*6/uL (4.40-5.60); RDW 14.1 % (11.5-14.5); WBC 7.39 X 10*3/uL (4.50-10.00)
[2022-04-24 08:45] LABS: African American GFR (CKD) 107.2 (60.0-200.0); Albumin 3.3 g/dL (3.8-4.9); Albumin/Globulin Ratio 1.74 (1.60-3.17); BUN/Creat Ratio 13.44 Ratio (12.00-20.00); Blood Urea Nitrogen 12.1 mg/dL (9.0-27.0); Calcium 8.1 mg/dL (8.7-10.3); Globulin 1.9 g/dL (1.6-3.3); Non-African American GFR(CKD) 92.5 (60.0-200.0); Potassium 3.9 mmol/L (3.5-5.5); Total Bilirubin 0.4 mg/dL (0.30-1.20); Total Protein 5.2 g/dL (6.2-8.2)
--- NOTE | 2022-04-24 09:05 | P.CNNES ---
History of Present Illness Consult date: 04/23/22 Requesting physician: Francisco Javier Lewis Reason for Consult: Headache History of Present Illness: Patient is a 71-year-old male who presented to the hospital yesterday with chief complaints of dizziness, confusion and midsternal chest pain. Neurology was consulted for periodic headaches. started having intermittent headaches after cataract removal in both eyes. He does not remember details although believes it occurred 6 months ago. The headache always involves behind the right eye over the right religious and last for an hour. It is occurring about twice a week and he rates it 7-8/10. Feels like heart beating in a pressure. He denies any nausea or vomiting, although his light and noise sensitivity with the headache. He states his both eyes [place] with a headache. Patient does not remember seeing sde after his cataract surgery. He denies any history of migraines. CT head on admission revealed small remote lacunar infarct in the white matter of the left frontal lobe. No acute process. Bilateral maxillary sinusitis. I personally reviewed CT head, and no definite evidence of lacunar stroke. P angelica has bilateral maxillary sinusitis, right much worse than left, with near complete opacification of the right maxillary sinus. Other paranasal sinuses are clear. EKG shows sinus rhythm with short TX interval. Chest x-ray revealed opacity developing in the right hilar region likely representing an acute pneumonic infiltrate. Blood test shows normal CBC, PT/PTT, sodium and electrolytes are normal renal functions normal. AST is 19, ALT mildly elevated 67, which improved to 38. UA negative, urine drug screen positive for benzodiazepine and marijuana. Patient denies any history of diabetes, hypertension or any alcohol use. He has smoked half pack per day for last 20 years. He smokes marijuana every day. Patient has history of neck surgery 12 years ago due to pinching of the spinal cord. He has metal in the neck. Patient at present lives with his and grandson. Denies any family history of cerebral aneurysm. Review of Systems Constitutional: Reports sweats, Denies chills, Denies fever Eyes: denies blurred vision, denies pain Ears, nose, mouth and throat: Reports headache, Denies sore throat Cardiovascular: Reports shortness of breath, Denies chest pain Respiratory: Reports congestion, Reports cough Gastrointestinal: Denies abdominal pain, Denies diarrhea, Denies nausea, Denies vomiting Integumentary: Denies pruritus, Denies rash Neurological: Reports as per HPI Psychiatric: Reports depression, Denies anxiety Hematologic/Lymphatic: Denies easy bruising Past Medical History Past Medical History: COPD, Pneumonia Additional Past Medical History / Comment(s): back pain History of Any Multi-Drug Resistant Organisms: None Reported Past Surgical History: Back Surgery Additional Past Surgical History / Comment(s): neck fusion,rt eye surgery, rt hand surgery Past Anesthesia/Blood Transfusion Reactions: No Reported Reaction Past Psychological History: Depression Smoking Status: Current every day smoker Past Alcohol Use History: Occasional Past Drug Use History: Marijuana - Past Family History Mother History Unknown: Yes Family Medical History: Myocardial Infarction ([place]) Additional Family Medical History / Comment(s): from [place] Medications and Allergies Home Medications Medication Instructions Recorded Confirmed Type Baclofen [Lioresal] 20 mg PO TID 01/14/20 04/22/22 History HYDROcodone/APAP 7.5-325MG [[place] 1 tab PO DAILY PRN 04/25/21 04/22/22 History 7.5-325] DULoxetine HCL [Cymbalta] 30 mg PO BID 04/15/22 04/22/22 History Meloxicam [Mobic] 15 mg PO DAILY PRN 04/15/22 04/22/22 History Budesonide-Formot 160-4.5 Mcg 2 puff INHALATION RT-BID #1 each 04/18/22 04/22/22 Rx [Symbicort 160-4.5 Mcg Inhaler] Albuterol Inhaler [Ventolin Hfa 2 puff INHALATION RT-QID PRN 04/22/22 04/22/22 History Inhaler] Allergies Allergy/AdvReac Type Severity Reaction Status Date / Time potassium chloride Allergy Swelling Verified 04/22/22 14:44 [From Klor-Con] sacubitril [From Entresto] Allergy Unknown Verified 04/22/22 14:44 valsartan [From Entresto] Allergy Unknown Verified 04/22/22 14:44 Physical Examination - Vital Signs Vital Signs: Vital Signs Temp Pulse Resp BP Pulse Ox 04/24/22 02:00 97.2 F L 60 16 122/74 99 04/23/22 20:00 98.5 F 63 17 108/69 97 04/23/22 14:00 98.6 F 69 16 111/74 95 11/27/22 10:16 16 Intake and Output 04/23/22 04/24/22 04/24/22 22:59 06:59 14:59 Intake Total 300 450 Balance 300 450 Intake: Oral 300 450 Other: # Voids 2 2 Patient is a late middle aged male, in no acute distress. Patient is alert awake oriented to time place and person. Patient has slightly slow mentation. Speech and language functions are normal. Patient can name and repeat very well. No aphasia or dysarthria. Attention, concentration intact and fund of knowledge is slightly limited. On cranial nerve examination, pupils are equal, round and reacting to light, visual interiano are full on confrontation, with no neglect on double simultaneous stimulation. Extraocular muscles are intact with no nystagmus. Face is symmetric, tongue protrudes to the midline. Palatal elevation and sensation normal, hearing and shoulder shrug normal, facial sensation normal. On muscle strength testing, there is no pronator drift and the strength is normal in arms and legs distally and proximally. Patient has very significant bilateral Dupuytren's contractures involving the ring and little fingers of both hands. Deep tendon reflexes are (right/left) biceps 1+/2+, brachioradialis 1+/2+, knees 3/3, plantars are upgoing bilaterally. Sensory to touch is equal with no neglect on double simultaneous stimulation. Cerebellar function showed no ataxia for [id number] testing. No dysdiadochokinesia. No ataxia for thdf-wf-jigs testing on either side. Tone and bulk of muscles normal. Gait deferred.. On general examination, there is no carotid bruit or murmur, S1-S2 audible. Chest is clear on consultation. Abdomen is soft nontender. No organomegaly, bowel sounds present. Peripheral pulses are present. No edema. Results - Laboratory Findings CBC and BMP: 04/24/22 05:50 04/22/22 12:06 Abnormal Lab Findings: Abnormal Labs 04/22/22 04/22/22 04/22/22 12:06 12:14 15:21 RBC Hgb Hct ESR VBG HCO3 23 L Chloride 110 H Glucose 129 H Magnesium 2.4 H ALT 67 H C-Reactive Protein Urine Protein 1+ H Hyaline Casts 3 H Urine Mucus Occasional H U Benzodiazepines Scrn U Marijuana (THC) Screen 04/22/22 04/23/22 04/23/22 15:21 05:02 05:02 RBC Hgb Hct ESR 28 H VBG HCO3 Chloride Glucose Magnesium ALT C-Reactive Protein 4.3 H Urine Protein Hyaline Casts Urine Mucus U Benzodiazepines Scrn Detected H U Marijuana (THC) Screen Detected H 04/24/22 05:50 RBC 4.12 L Hgb 11.9 L Hct 37.1 L ESR VBG HCO3 Chloride Glucose Magnesium ALT C-Reactive Protein Urine Protein Hyaline Casts Urine Mucus U Benzodiazepines Scrn U Marijuana (THC) Screen Assessment and Plan Assessment: * Intermittent right orbital temporal headaches, possibly related to acute maxillary sinusitis. CT head showed bilateral mastoid disease, right worse than left. Cluster headache also in the differential. Rule out ocular cause of headaches (?Glaucoma). * Acute pneumonia * History of cervical spinal surgery for probable spinal stenosis with myelopathy, 12 years ago. * COPD * Tobacco use Plan: * Patient was started on Fioricet as needed. At present patient has no headache. * Patient on Zosyn for bacterial pneumonia, which hopefully will help with maxillary sinusitis. If the headache persists, may need computed tomography scan of the sinuses. Also recommended patient to follow up with sde as an outpatient to rule out ocular cause. * Patient was recommended to keep track of headaches and if no obvious cause identified with above mentioned workup, then may follow up with a neurologist to rule out cluster headache. * ESR was 28 and CRP 4.3, which is not significantly elevated. No evidence of temporal arteritis. * I tried to contact patient's on the phone multiple times to obtain collateral history, and she did not picker machine operator the phone. * Neurology will follow. Thank you for the consult.
[2022-04-24 14:53] VITALS: BP 125/76; PULSE 69; TEMP 97.6
--- NOTE | 2022-04-24 23:23 | P.DS ---
Providers Date of admission: 04/22/22 15:39 Attending physician: Francisco Javier Lewis MD Consults: 04/22/22 15:30 Consult Physician Routine Consulting Provider: Madhu Linder Consult Reason/Comments: Pneumonia, antibiotic selection Do you want consulting provider notified?: Yes 04/23/22 16:01 Consult Physician Routine Consulting Provider: Leonard Ramos Consult Reason/Comments: Headache Do you want consulting provider notified?: Already Contacted Primary care physician: Joseph Granger MD Hospital Course: Final Diagnosis Altered mental status secondary to acute toxic/metabolic encephalopathy multifocal secondary to medication effect utilizing NSAIDs in combination with narcotics, benzodiazepines, marijuana use, and baclofen use resolved Intermittent right orbital temporal headache, possible from acute sinusitis vs. cluster headache vs. occular cause of migraine. Currently headache free. Neurology f/u on discharge. Recent hospitalization for COPD exacerbation treated with Ceftriaxone and discharged on ceftin. No clear cut evidence for new pneumonia this admission. No white count, no fever, procalcitonin negative. Chest xray is improving this could be from previous infection. COPD with mild acute exacerbation Daily nicotine use counseling provided Marijuana Abuse Depression Discharge Disposition Patient is stable for discharge home. Mentation has improved. Infectious disease has cleared patient for discharge on 7 day course of PO avelox. Patient to follow up with neurology as needed on discharge. Also recommended to follow up with opthmology on discharge. Mobic has been discontinued on discharge. Baclofen has been decreased to BID. Continue with cymbalta, norco daily as needed. Hospital Course This is a 62 year old male with medical history of COPD, tobacco and marijuana use. Presents to the emergency center with lethargy and confusion. Patient was recently treated inpatient for possible pneumonia and was discharged on oral ceftin. Patients noticed that over the last few days he has been lethargic. Denies fever or chills, denies shortness of breath. He had chest xray in the emergency room this admission showing new right sided perihilar infiltrate. He was admitted to the hospital for rule out pneumonia and started on empiric antibiotic coverage. Infectious disease was consulted. Urine drug toxicology completed showing positive for benzodiazepines and also marijuana. Patient does admit to smoking joints daily in addition to 1/2 pack of cigarettes per day. Neurology was consulted for the altered mental status and also complaints of headache. Brain CT reports as small remote lacunar infarct in the white matter frontal lobe, no acute findings. Neurology reviewed CT and felt no definite evidence for lacunar stroke. He denies shortness of breath, not having much cough. He was able to give a sputum sample. Blood culture has remained negative at 48 hours. Patient does not have a white count on admission. Urine negative. D-Dimer negative. Sed rate elevated at 28. Procalcitonin level found to be 0.09. Never the less mentation did improve while on empiric coverage with zosyn. Repeat chest xray shows improvement in opacity right hilar region. Discharge on oral avelox for 7 days. Cleared by neurology. Follow up with ophthalmology and neurology outpatient. 04/24/2022 Patient is evaluated today sitting up in bed. Denies headache, denies shortness of breath, no cough. Currently alert x 3 mentation has improved. He is counseled extensively on smoking cessation and marijuana cessation. Discussed medications and not taking narcotics together with benzodiazepines and also marijuana, this can cause sedative effect. Patient verbalizes understanding. Lungs are clear, S1 S2 auscultated, focal neurological exam is negative. He has been cleared by ID and neurology for discharge with above mentioned recommendations. Most recent labs showing white count 7.39, hgb 11.9, sodium 142, potassium 3.9, BUN 12.1, creatinine 0.9. Troponin negative. Remains afebrile, heart rate 69, blood pressure 125/76, 97% room air. Total time taken in discharge planning greater than 35 minutes. Please see medication reconciliation for a list of current medication. Thank you for allowing us to participate in the care of this patient. The impression and plan of care has been dictated by Loreta Hough, Nurse Practitioner as directed. Dr. Jaz MD I have performed a history and physical examination and medical decision making of this patient, discussed the same with the dictator, and agree with the dictators assessment and plan as written, documented as a scribe. Based on total visit time, I have performed more than 50% of this visit. Patient Condition at Discharge: Stable Plan - Discharge Summary Discharge Rx Participant: No New Discharge Prescriptions: New Moxifloxacin HCl [Avelox] 400 mg PO DAILY 7 Days #7 tab Continue DULoxetine HCL [Cymbalta] 30 mg PO BID Albuterol Inhaler [Ventolin Hfa Inhaler] 2 puff INHALATION RT-QID PRN PRN Reason: Shortness Of Breath HYDROcodone/APAP 7.5-325MG [[place] 7.5-325] 1 tab PO DAILY PRN PRN Reason: Pain Budesonide-Formot 160-4.5 Mcg [Symbicort 160-4.5 Mcg Inhaler] 2 puff INHALATION RT-BID #1 each Changed Baclofen [Lioresal] 10 mg PO BID PRN #0 PRN Reason: Spasms Discontinued Meloxicam [Mobic] 15 mg PO DAILY PRN PRN Reason: Pain Discharge Medication List HYDROcodone/APAP 7.5-325MG [[place] 7.5-325] 1 tab PO DAILY PRN 04/25/21 [History] DULoxetine HCL [Cymbalta] 30 mg PO BID 04/15/22 [History] Budesonide-Formot 160-4.5 Mcg [Symbicort 160-4.5 Mcg Inhaler] 2 puff INHALATION RT-BID #1 each 04/18/22 [Rx] Albuterol Inhaler [Ventolin Hfa Inhaler] 2 puff INHALATION RT-QID PRN 04/22/22 [History] Baclofen [Lioresal] 10 mg PO BID PRN #0 04/24/22 [Rx] Moxifloxacin HCl [Avelox] 400 mg PO DAILY 7 Days #7 tab 04/24/22 [Rx] Follow up Appointment(s)/Referral(s): Joseph Granger MD [Primary Care Provider] - 1-2 days Mehdi Ramirez MD [STAFF PHYSICIAN] - 05/05/22 2:00 pm Rowena Corea MD [Medical Doctor] - As Needed Madhu Linder MD [STAFF PHYSICIAN] - 05/08/22 2:30 pm Patient Instructions/Handouts: Pneumonia (DC) Activity/Diet/Wound Care/Special Instructions: Recommend to see opthmology on discharge for routine eye screening. Patient to also follow up as needed with neurology if migraine persists. Recommend for total smoking cessation. Advised to avoid marijuana use and also mixing of prescribed narcotics with benzodiazepines to avoid sedative effect and altered mentation Discharge Disposition: HOME SELF-CARE
== END 2022-04-24 15:29 | disposition home or self-care (01) | DRG 177 ==
LOC: EC 11:13 → 4SSUR 15:39
PROVIDERS: ADMIT Internal Medicine; ATTEND Internal Medicine
DX: B37.1 Pulmonary candidiasis (principal); G92.8 Other toxic encephalopathy; J15.9 Unspecified bacterial pneumonia; J44.0 Chronic obstructive pulmonary disease with (acute) lower respiratory infection; J44.1 Chronic obstructive pulmonary disease with (acute) exacerbation; F05 Delirium due to known physiological condition; R42 Dizziness and giddiness; F12.10 Cannabis abuse, uncomplicated; E86.0 Dehydration; G44.89 Other headache syndrome; T39.395A Adverse effect of other nonsteroidal anti-inflammatory drugs [NSAID], initial encounter; T40.695A Adverse effect of other narcotics, initial encounter; T42.4X5A Adverse effect of benzodiazepines, initial encounter; F17.210 Nicotine dependence, cigarettes, uncomplicated; F32.A Depression, unspecified; J32.0 Chronic maxillary sinusitis; Z79.1 Long term (current) use of non-steroidal anti-inflammatories (NSAID); Z79.51 Long term (current) use of inhaled steroids; Z79.899 Other long term (current) drug therapy; Z86.73 Personal history of transient ischemic attack (TIA), and cerebral infarction without residual deficits; Z98.1 Arthrodesis status; Z88.8 Allergy status to other drugs, medicaments and biological substances; Z71.6 Tobacco abuse counseling; X58.XXXA Exposure to other specified factors, initial encounter
CPT/HCPCS: 36415; 70450; 71046; 80053; 80306; 81001; 82140; 82803; 83735; 83880; 84145; 84484; 85025; 85027; 85379; 85610; 85652; 85730; 86140; 87040; 87070; 87205; 93005; 94640; 94760; 96365; 99285

== ENCOUNTER 2023-01-13 15:58 | Observation (INO) | payer OTHER ==
[2023-01-13 16:49] LABS: ABG Base Excess -2.1 mmol/L; ABG HCO3 23 mmol/L (21-25); ABG Oxygen Saturation 98.6 % (94-97); ABG PCO2 42 mmHg (35-45); ABG PH 7.36 (7.35-7.45); ABG PO2 128 mmHg (83-108); ABG TCO2 25 mmol/L (19-24); Allen Test Performed? Yes
--- NOTE | 2023-01-13 16:53 | XR ---
EXAMINATION TYPE: XR chest 1V portable DATE OF EXAM: 01/13/2023 4:49 PM COMPARISON: Chest radiographs from 04/23/2022 TECHNIQUE: XR chest 1V portable Portable AP radiograph of the chest. CLINICAL INDICATION:Male, 62 years old with history of Fever; FINDINGS: Lungs/Pleura: No pleural effusion or pneumothorax. No focal consolidation. Chronic central interstiti al prominence. Pulmonary vascularity: Unremarkable. Heart/mediastinum: Cardiomediastinal silhouette is unremarkable. Musculoskeletal: No acute osseous pathology. Partial visualization of cervical fusion. IMPRESSION: Chronic changes without evidence for acute process.
--- NOTE | 2023-01-13 16:55 | ED ---
SOB HPI - General Chief Complaint: Shortness of Breath Stated Complaint: ERIC Time Seen by Provider: 01/13/23 16:05 Source: patient, family Mode of arrival: wheelchair Limitations: no limitations - History of Present Illness Initial Comments: Fausto Willis is a 62-year-old male with history of COPD, continued cigarette use, to previous episodes of ventilator dependent respiratory failure. His rectal hospital today by his significant other who reports that throughout the day yesterday he was complaining about shortness of breath and today he seems to be very confused. Significant mother reports that this is happened in the past 20 does he usually has to be put on the ventilator. Patient is moaning but does not answer any questions. Occasionally saying inappropriate words. - Related Data Home Medications Medication Instructions Recorded Confirmed HYDROcodone/APAP 7.5-325MG [[place] 1 tab PO DAILY PRN 04/25/21 01/13/23 7.5-325] DULoxetine HCL [Cymbalta] 30 mg PO BID 04/15/22 01/13/23 Albuterol Inhaler [Ventolin Hfa 2 puff INHALATION RT-QID PRN 04/22/22 01/13/23 Inhaler] Acetaminophen [Tylenol 8 Hour] 650 - 1,300 mg PO Q8H PRN 01/13/23 01/13/23 Baclofen [Lioresal] 10 mg PO TID PRN 01/13/23 01/13/23 Meloxicam [Mobic] 15 mg PO DAILY PRN 01/13/23 01/13/23 Previous Rx's Medication Instructions Recorded Budesonide-Formot 160-4.5 Mcg 2 puff INHALATION RT-BID #1 each 04/18/22 [Symbicort 160-4.5 Mcg Inhaler] Allergies Allergy/AdvReac Type Severity Reaction Status Date / Time potassium chloride Allergy Swelling Verified 04/22/22 14:44 [From Klor-Con] sacubitril [From Entresto] Allergy Unknown Verified 04/22/22 14:44 valsartan [From Entresto] Allergy Unknown Verified 04/22/22 14:44 Review of Systems ROS Statement: Those systems with pertinent positive or pertinent negative responses have been documented in the HPI. ROS Other: All systems not noted in ROS Statement are negative. Past Medical History Past Medical History: COPD, Pneumonia Additional Past Medical History / Comment(s): back pain History of Any Multi-Drug Resistant Organisms: None Reported Past Surgical History: Back Surgery Additional Past Surgical History / Comment(s): neck fusion,rt eye surgery, rt hand surgery Past Anesthesia/Blood Transfusion Reactions: No Reported Reaction Past Psychological History: Depression Smoking Status: Current every day smoker Past Alcohol Use History: Occasional Past Drug Use History: Marijuana - Past Family History Mother History Unknown: Yes Family Medical History: Myocardial Infarction ([place]) Additional Family Medical History / Comment(s): from [place] General Exam - General Exam Comments Initial Comments: Physical Exam GENERAL: Chronically ill appearing HENT: Normocephalic, Atraumatic. EYES: PERRL, EOMI PULMONARY: Expiratory wheezing CARDIOVASCULAR: RRR ABDOMEN: Soft and nontender with normal bowel sounds. SKIN: Skin is clear with no lesions or rashes and otherwise unremarkable. : Deferred NEUROLOGIC: Altered, saying inappropriate words but occasionally answering questions Moving all extremities MUSCULOSKELETAL: No obvious injury PSYCHIATRIC: Cannot assess Limitations: no limitations Course Vital Signs 01/13/23 01/13/23 01/13/23 16:01 16:47 17:30 Temperature 98.1 F Pulse Rate 90 78 64 Respiratory 20 17 Rate Blood Pressure 161/88 157/112 152/106 O2 Sat by Pulse 98 96 97 Oximetry 01/13/23 01/13/23 01/13/23 18:00 18:42 19:09 Temperature Pulse Rate 97 89 104 H Respiratory 18 24 18 Rate Blood Pressure 170/112 170/112 144/95 O2 Sat by Pulse 97 96 98 Oximetry 01/13/23 20:19 Temperature Pulse Rate 91 Respiratory 18 Rate Blood Pressure 153/119 O2 Sat by Pulse 95 Oximetry Medical Decision Making - Medical Decision Making Was pt. sent in by a medical professional or institution (, PA, DIGITAL DIRECTOR, urgent care, hospital, or prison...) When possible be specific @ -No Did you speak to anyone other than the patient for history (EMS, parent, family, police, friend...)? What history was obtained from this source @ -Her significant other at bedside Did you review nursing and triage notes (agree or disagree)? Why? @ -I reviewed and agree with nursing and triage notes Were old charts reviewed (outside hosp., previous admission, EMS record, old EKG, old radiological studies, urgent care reports/EKG's, prison records)? Report findings @ -Previous admissions were reviewed Differential Diagnosis (chest pain, altered mental status, abdominal pain women, abdominal pain men, vaginal bleeding, weakness, fever, dyspnea, syncope, headache, dizziness, GI bleed, back pain, seizure, CVA, palpatations, mental health, musculoskeletal)? @ -Differential Altered Mental Status: Hypoglycemia, DKA, hypercapnia, ETOH, overdose, CO poisoning, trauma, myxedema coma, HTN encephalopathy, infection, encephalitis, psychosis, intercranial hemorrhage, hepatic encephalopathy, meningitis, CVA, this is not meant to be an all-inclusive list EKG interpreted by me (3pts min.). @ -As above X-rays interpreted by me (1pt min.). @ -No focal consolidations CT interpreted by me (1pt min.). @ -No obvious mass bleed or midline shift U/S interpreted by me (1pt. min.). @ -None done What testing was considered but not performed or refused? (CT, X-rays, U/S, labs)? Why? @ -None What meds were considered but not given or refused? Why? @ -Labetalol was ordered for hypertension however hypertension improved Did you discuss the management of the patient with other professionals (professionals i.e. , PA, DIGITAL DIRECTOR, lab, RT, psych nurse, secondary social studies teacher, organ installer, teacher, ecological technical officer, pillowcase maker)? Give summary @ -Discussed with the admitting physician Was smoking cessation discussed for >3mins.? @ -No Was critical care preformed (if so, how long)? @ -No Were there social determinants of health that impacted care today? How? (Homelessness, low income, unemployed, alcoholism, drug addiction, transportation, low edu. Level, literacy, decrease access to med. care, care home, rehab)? @ -No Was there de-escalation of care discussed even if they declined (Discuss DNR or withdrawal of care, Hospice)? DNR status @ -No What co-morbidities impacted this encounter? (DM, HTN, Smoking, COPD, CAD, Cancer, CVA, ARF, Chemo, Hep., AIDS, mental health diagnosis, sleep apnea, morbid obesity)? @ -COPD Was patient admitted / discharged? Hospital course, mention meds given and route, prescriptions, significant lab abnormalities, going to OR and other pertinent info. @ -Admit Patient was seen and evaluated, labs including ABG and ABG were ordered. CBC resulted with leukocytosis. CMP was relatively unremarkable. ABG shows no acidosis, no hypoxia and no hypercapnia. Labs and imaging revealed no cause for the patient's altered mental status, computed tomography scan was obtained again no acute findings. The patient's encephalopathy he will be admitted the hospital for further evaluation Undiagnosed new problem with uncertain prognosis? @ - Drug Therapy requiring intensive monitoring for toxicity (Heparin, Nitro, Insulin, Cardizem)? @ -No Were any procedures done? @ -No Diagnosis/symptom? @ -Encephalopathy Acute, or Chronic, or Acute on Chronic? @ -Acute Uncomplicated (without systemic symptoms) or Complicated (systemic symptoms)? @ -Complicated Side effects of treatment? @ -No Exacerbation, Progression, or Severe Exacerbation? @ -No Poses a threat to life or bodily function? How? (Chest pain, [place], [place], pneumonia, PE, COPD, DKA, ARF, appy, cholecystitis, CVA, Diverticulitis, Homicidal, Suicidal, threat to staff... and all critical care pts) @ -No - Lab Data Result diagrams: 01/13/23 16:39 01/13/23 16:39 Lab Results 01/13/23 01/13/23 01/13/23 Range/Units 16:39 16:39 16:39 WBC 16.3 H (3.8-10.6) k/uL RBC 4.30 (4.30-5.90) m/uL Hgb 13.1 (13.0-17.5) gm/dL Hct 39.3 (39.0-53.0) % MCV 91.4 (80.0-100.0) fL MCH 30.4 (25.0-35.0) pg MCHC 33.2 (31.0-37.0) g/dL RDW 13.7 (11.5-15.5) % Plt Count 238 (150-450) k/uL MPV 8.5 Neutrophils % 84 % Lymphocytes % 10 % Monocytes % 5 % Eosinophils % 1 % Basophils % 0 % Neutrophils # 13.6 H (1.3-7.7) k/uL Lymphocytes # 1.6 (1.0-4.8) k/uL Monocytes # 0.8 (0-1.0) k/uL Eosinophils # 0.1 (0-0.7) k/uL Basophils # 0.0 (0-0.2) k/uL PT 9.5 (9.0-12.0) sec INR 0.9 (<1.2) APTT 24.1 (22.0-30.0) sec Sample Site ABG pH (7.35-7.45) ABG pCO2 (35-45) mmHg ABG pO2 (83-108) mmHg ABG HCO3 (21-25) mmol/L ABG Total CO2 (19-24) mmol/L ABG O2 Saturation (94-97) % ABG Base Excess mmol/L Alonso Test VBG pH (7.31-7.41) VBG pCO2 (37-51) mmHg VBG HCO3 (24-28) mmol/L FiO2 % Sodium 140 (137-145) mmol/L Potassium 3.4 L (3.5-5.1) mmol/L Chloride 109 H (98-107) mmol/L Carbon Dioxide 22 (22-30) mmol/L Anion Gap 9 mmol/L BUN 26 H (9-20) mg/dL Creatinine 0.99 (0.66-1.25) mg/dL Est GFR (CKD-EPI)AfAm >90 (>60 ml/min/1.73 sqM) Est GFR (CKD-EPI)NonAf 82 (>60 ml/min/1.73 sqM) Glucose 94 (74-99) mg/dL Plasma Lactic Acid Pierre (0.7-2.0) mmol/L Calcium 8.9 (8.4-10.2) mg/dL Total Bilirubin 0.4 (0.2-1.3) mg/dL AST 23 (17-59) U/L ALT 22 (4-49) U/L Alkaline Phosphatase 103 (38-126) U/L Troponin I (0.000-0.034) ng/mL NT-Pro-B Natriuret Pep 1160 pg/mL Total Protein 6.8 (6.3-8.2) g/dL Albumin 4.0 (3.5-5.0) g/dL Urine Color Urine Appearance (Clear) Urine pH (5.0-8.0) Ur Specific [place] (1.001-1.035) Urine Protein (Negative) Urine Glucose (UA) (Negative) Urine Ketones (Negative) Urine Blood (Negative) Urine Nitrite (Negative) Urine Bilirubin (Negative) Urine Urobilinogen (<2.0) mg/dL Ur Leukocyte Esterase (Negative) Urine RBC (0-5) /hpf Urine WBC (0-5) /hpf Hyaline Casts (0-2) /lpf Urine Mucus (None) /hpf Urine Opiates Screen (NotDetected) Ur Oxycodone Screen (NotDetected) Urine Methadone Screen (NotDetected) Ur Propoxyphene Screen (NotDetected) Ur Barbiturates Screen (NotDetected) U Tricyclic Antidepress (NotDetected) Ur Phencyclidine Scrn (NotDetected) Ur Amphetamines Screen (NotDetected) U Methamphetamines Scrn (NotDetected) U Benzodiazepines Scrn (NotDetected) Urine Cocaine Screen (NotDetected) U Marijuana (THC) Screen (NotDetected) Serum Alcohol <10 mg/dL Influenza Type A (PCR) (Not Detectd) Influenza Type B (PCR) (Not Detectd) RSV (PCR) (Not Detectd) SARS-CoV-2 (PCR) (Not Detectd) 01/13/23 01/13/23 01/13/23 Range/Units 16:39 16:39 16:39 WBC (3.8-10.6) k/uL RBC (4.30-5.90) m/uL Hgb (13.0-17.5) gm/dL Hct (39.0-53.0) % MCV (80.0-100.0) fL MCH (25.0-35.0) pg MCHC (31.0-37.0) g/dL RDW (11.5-15.5) % Plt Count (150-450) k/uL MPV Neutrophils % % Lymphocytes % % Monocytes % % Eosinophils % % Basophils % % Neutrophils # (1.3-7.7) k/uL Lymphocytes # (1.0-4.8) k/uL Monocytes # (0-1.0) k/uL Eosinophils # (0-0.7) k/uL Basophils # (0-0.2) k/uL PT (9.0-12.0) sec INR (<1.2) APTT (22.0-30.0) sec Sample Site ABG pH (7.35-7.45) ABG pCO2 (35-45) mmHg ABG pO2 (83-108) mmHg ABG HCO3 (21-25) mmol/L ABG Total CO2 (19-24) mmol/L ABG O2 Saturation (94-97) % ABG Base Excess mmol/L Alonso Test VBG pH 7.28 L (7.31-7.41) VBG pCO2 48 (37-51) mmHg VBG HCO3 23 L (24-28) mmol/L FiO2 % Sodium (137-145) mmol/L Potassium (3.5-5.1) mmol/L Chloride (98-107) mmol/L Carbon Dioxide (22-30) mmol/L Anion Gap mmol/L BUN (9-20) mg/dL Creatinine (0.66-1.25) mg/dL Est GFR (CKD-EPI)AfAm (>60 ml/min/1.73 sqM) Est GFR (CKD-EPI)NonAf (>60 ml/min/1.73 sqM) Glucose (74-99) mg/dL Plasma Lactic Acid Pierre 1.1 (0.7-2.0) mmol/L Calcium (8.4-10.2) mg/dL Total Bilirubin (0.2-1.3) mg/dL AST (17-59) U/L ALT (4-49) U/L Alkaline Phosphatase (38-126) U/L Troponin I <0.012 (0.000-0.034) ng/mL NT-Pro-B Natriuret Pep pg/mL Total Protein (6.3-8.2) g/dL Albumin (3.5-5.0) g/dL Urine Color Urine Appearance (Clear) Urine pH (5.0-8.0) Ur Specific [place] (1.001-1.035) Urine Protein (Negative) Urine Glucose (UA) (Negative) Urine Ketones (Negative) Urine Blood (Negative) Urine Nitrite (Negative) Urine Bilirubin (Negative) Urine Urobilinogen (<2.0) mg/dL Ur Leukocyte Esterase (Negative) Urine RBC (0-5) /hpf Urine WBC (0-5) /hpf Hyaline Casts (0-2) /lpf Urine Mucus (None) /hpf Urine Opiates Screen (NotDetected) Ur Oxycodone Screen (NotDetected) Urine Methadone Screen (NotDetected) Ur Propoxyphene Screen (NotDetected) Ur Barbiturates Screen (NotDetected) U Tricyclic Antidepress (NotDetected) Ur Phencyclidine Scrn (NotDetected) Ur Amphetamines Screen (NotDetected) U Methamphetamines Scrn (NotDetected) U Benzodiazepines Scrn (NotDetected) Urine Cocaine Screen (NotDetected) U Marijuana (THC) Screen (NotDetected) Serum Alcohol mg/dL Influenza Type A (PCR) (Not Detectd) Influenza Type B (PCR) (Not Detectd) RSV (PCR) (Not Detectd) SARS-CoV-2 (PCR) (Not Detectd) 01/13/23 01/13/23 01/13/23 Range/Units 16:47 17:41 18:42 WBC (3.8-10.6) k/uL RBC (4.30-5.90) m/uL Hgb (13.0-17.5) gm/dL Hct (39.0-53.0) % MCV (80.0-100.0) fL MCH (25.0-35.0) pg MCHC (31.0-37.0) g/dL RDW (11.5-15.5) % Plt Count (150-450) k/uL MPV Neutrophils % % Lymphocytes % % Monocytes % % Eosinophils % % Basophils % % Neutrophils # (1.3-7.7) k/uL Lymphocytes # (1.0-4.8) k/uL Monocytes # (0-1.0) k/uL Eosinophils # (0-0.7) k/uL Basophils # (0-0.2) k/uL PT (9.0-12.0) sec INR (<1.2) APTT (22.0-30.0) sec Sample Site rbrach ABG pH 7.36 (7.35-7.45) ABG pCO2 42 (35-45) mmHg ABG pO2 128 H (83-108) mmHg ABG HCO3 23 (21-25) mmol/L ABG Total CO2 25 H (19-24) mmol/L ABG O2 Saturation 98.6 H (94-97) % ABG Base Excess -2.1 mmol/L Alonso Test Yes VBG pH (7.31-7.41) VBG pCO2 (37-51) mmHg VBG HCO3 (24-28) mmol/L FiO2 28 % Sodium (137-145) mmol/L Potassium (3.5-5.1) mmol/L Chloride (98-107) mmol/L Carbon Dioxide (22-30) mmol/L Anion Gap mmol/L BUN (9-20) mg/dL Creatinine (0.66-1.25) mg/dL Est GFR (CKD-EPI)AfAm (>60 ml/min/1.73 sqM) Est GFR (CKD-EPI)NonAf (>60 ml/min/1.73 sqM) Glucose (74-99) mg/dL Plasma Lactic Acid Pierre (0.7-2.0) mmol/L Calcium (8.4-10.2) mg/dL Total Bilirubin (0.2-1.3) mg/dL AST (17-59) U/L ALT (4-49) U/L Alkaline Phosphatase (38-126) U/L Troponin I (0.000-0.034) ng/mL NT-Pro-B Natriuret Pep pg/mL Total Protein (6.3-8.2) g/dL Albumin (3.5-5.0) g/dL Urine Color Yellow Urine Appearance Clear (Clear) Urine pH 6.0 (5.0-8.0) Ur Specific [place] 1.034 (1.001-1.035) Urine Protein 1+ H (Negative) Urine Glucose (UA) Negative (Negative) Urine Ketones Negative (Negative) Urine Blood Small H (Negative) Urine Nitrite Negative (Negative) Urine Bilirubin Negative (Negative) Urine Urobilinogen 2.0 (<2.0) mg/dL Ur Leukocyte Esterase Negative (Negative) Urine RBC 25 H (0-5) /hpf Urine WBC 1 (0-5) /hpf Hyaline Casts 1 (0-2) /lpf Urine Mucus Rare H (None) /hpf Urine Opiates Screen (NotDetected) Ur Oxycodone Screen (NotDetected) Urine Methadone Screen (NotDetected) Ur Propoxyphene Screen (NotDetected) Ur Barbiturates Screen (NotDetected) U Tricyclic Antidepress (NotDetected) Ur Phencyclidine Scrn (NotDetected) Ur Amphetamines Screen (NotDetected) U Methamphetamines Scrn (NotDetected) U Benzodiazepines Scrn (NotDetected) Urine Cocaine Screen (NotDetected) U Marijuana (THC) Screen (NotDetected) Serum Alcohol mg/dL Influenza Type A (PCR) Not Detected (Not Detectd) Influenza Type B (PCR) Not Detected (Not Detectd) RSV (PCR) Not Detected (Not Detectd) SARS-CoV-2 (PCR) Not Detected (Not Detectd) 01/13/23 Range/Units 18:42 WBC (3.8-10.6) k/uL RBC (4.30-5.90) m/uL Hgb (13.0-17.5) gm/dL Hct (39.0-53.0) % MCV (80.0-100.0) fL MCH (25.0-35.0) pg MCHC (31.0-37.0) g/dL RDW (11.5-15.5) % Plt Count (150-450) k/uL MPV Neutrophils % % Lymphocytes % % Monocytes % % Eosinophils % % Basophils % % Neutrophils # (1.3-7.7) k/uL Lymphocytes # (1.0-4.8) k/uL Monocytes # (0-1.0) k/uL Eosinophils # (0-0.7) k/uL Basophils # (0-0.2) k/uL PT (9.0-12.0) sec INR (<1.2) APTT (22.0-30.0) sec Sample Site ABG pH (7.35-7.45) ABG pCO2 (35-45) mmHg ABG pO2 (83-108) mmHg ABG HCO3 (21-25) mmol/L ABG Total CO2 (19-24) mmol/L ABG O2 Saturation (94-97) % ABG Base Excess mmol/L Alonso Test VBG pH (7.31-7.41) VBG pCO2 (37-51) mmHg VBG HCO3 (24-28) mmol/L FiO2 % Sodium (137-145) mmol/L Potassium (3.5-5.1) mmol/L Chloride (98-107) mmol/L Carbon Dioxide (22-30) mmol/L Anion Gap mmol/L BUN (9-20) mg/dL Creatinine (0.66-1.25) mg/dL Est GFR (CKD-EPI)AfAm (>60 ml/min/1.73 sqM) Est GFR (CKD-EPI)NonAf (>60 ml/min/1.73 sqM) Glucose (74-99) mg/dL Plasma Lactic Acid Pierre (0.7-2.0) mmol/L Calcium (8.4-10.2) mg/dL Total Bilirubin (0.2-1.3) mg/dL AST (17-59) U/L ALT (4-49) U/L Alkaline Phosphatase (38-126) U/L Troponin I (0.000-0.034) ng/mL NT-Pro-B Natriuret Pep pg/mL Total Protein (6.3-8.2) g/dL Albumin (3.5-5.0) g/dL Urine Color Urine Appearance (Clear) Urine pH (5.0-8.0) Ur Specific [place] (1.001-1.035) Urine Protein (Negative) Urine Glucose (UA) (Negative) Urine Ketones (Negative) Urine Blood (Negative) Urine Nitrite (Negative) Urine Bilirubin (Negative) Urine Urobilinogen (<2.0) mg/dL Ur Leukocyte Esterase (Negative) Urine RBC (0-5) /hpf Urine WBC (0-5) /hpf Hyaline Casts (0-2) /lpf Urine Mucus (None) /hpf Urine Opiates Screen Detected H (NotDetected) Ur Oxycodone Screen Not Detected (NotDetected) Urine Methadone Screen Not Detected (NotDetected) Ur Propoxyphene Screen Not Detected (NotDetected) Ur Barbiturates Screen Not Detected (NotDetected) U Tricyclic Antidepress Not Detected (NotDetected) Ur Phencyclidine Scrn Not Detected (NotDetected) Ur Amphetamines Screen Not Detected (NotDetected) U Methamphetamines Scrn Not Detected (NotDetected) U Benzodiazepines Scrn Detected H (NotDetected) Urine Cocaine Screen Not Detected (NotDetected) U Marijuana (THC) Screen Detected H (NotDetected) Serum Alcohol mg/dL Influenza Type A (PCR) (Not Detectd) Influenza Type B (PCR) (Not Detectd) RSV (PCR) (Not Detectd) SARS-CoV-2 (PCR) (Not Detectd) Disposition Clinical Impression: Acute exacerbation of chronic obstructive pulmonary disease, Lactic acidosis, Metabolic encephalopathy Disposition: ADMITTED IP TO THIS HOSP
[2023-01-13 17:22] LABS: Basophils % (A) 0 %; Eosinophils # (A) 0.1 k/uL (0-0.7); Eosinophils % (A) 1 %; HCT 39.3 % (39.0-53.0); HGB 13.1 gm/dL (13.0-17.5); Lymphocytes # (A) 1.6 k/uL (1.0-4.8); Lymphocytes % (A) 10 %; MCH 30.4 pg (25.0-35.0); MCHC 33.2 g/dL (31.0-37.0); MCV 91.4 fL (80.0-100.0); Mean Platelet Volume 8.5; Monocytes # (A) 0.8 k/uL (0-1.0); Monocytes % (A) 5 %; Neutrophils # (A) 13.6 k/uL (1.3-7.7); Neutrophils % (A) 84 %; Platelet Count 238 k/uL (150-450); RDW 13.7 % (11.5-15.5); WBC 16.3 k/uL (3.8-10.6)
[2023-01-13 17:37] LABS: ALT 22 U/L (4-49); AST 23 U/L (17-59); African American GFR (CKD) >90 (>60 ml/min/1.73 sqM); Alcohol <10 mg/dL; Alkaline Phosphatase 103 U/L (38-126); Anion Gap 9 mmol/L; Blood Urea Nitrogen 26 mg/dL (9-20); Calcium 8.9 mg/dL (8.4-10.2); Carbon Dioxide 22 mmol/L (22-30); Chloride 109 mmol/L (98-107); Glucose 94 mg/dL (74-99); Non-African American GFR(CKD) 82 (>60 ml/min/1.73 sqM); Potassium 3.4 mmol/L (3.5-5.1); Sodium 140 mmol/L (137-145); Total Bilirubin 0.4 mg/dL (0.2-1.3); Total Protein 6.8 g/dL (6.3-8.2)
[2023-01-13 17:39] LABS: INR 0.9 (<1.2); Partial Thromboplastin Time 24.1 sec (22.0-30.0); Prothrombin Time 9.5 sec (9.0-12.0)
[2023-01-13 17:43] LABS: NT-Pro-B-Type Natriuretic Pept 1160 pg/mL
--- NOTE | 2023-01-13 18:23 | CT ---
EXAMINATION TYPE: CT brain wo con CT DLP: 1248.6 mGycm, Automated exposure control for dose reduction was used. DATE OF EXAM: 01/13/2023 6:15 PM COMPARISON: 04/22/2022. CLINICAL INDICATION:Male, 62 years old with history of altered, ams TECHNIQUE: Brain: Axial CT images of the brain were obtained with coronal and sagittal reformats created and rev iewed. Contrast used: None. Oral contrast used: None. FINDINGS: Brain: Extra-axial spaces: No abnormal extra-axial fluid collections. Ventricular system: Within normal limits Cerebral parenchyma: No acute intraparenchymal hemorrhage or mass effect. The lutz-white junction is well differentiated. Cerebellum: Unremarkable. Mass effect: No evidence of midline shift. Intracranial vasculature: unremarkable Soft tissues: Normal. Calvarium/osseous structures: No depressed skull fracture. Paranasal sinuses and mastoid air cells: Mild scattered paranasal sinus disease in the right maxillar y sinus. Visualized orbits: Orbital contents are intact. IMPRESSION: No acute intracranial process.
[2023-01-13 18:58] LABS: Appearance,Urine Clear (Clear); Bilirubin,Urine Negative (Negative); Blood,Urine Small (Negative); Color,Urine Yellow; Glucose,Urine (UA) Negative (Negative); Hyaline Casts,Urine 1 /lpf (0-2); Ketones,Urine Negative (Negative); Leukocyte Esterase,Urine Negative (Negative); Mucus,Urine Rare /hpf; Nitrite,Urine Negative (Negative); Protein,Urine 1+ (Negative); RBC,Urine 25 /hpf (0-5); Specific Gravity,Urine 1.034 (1.001-1.035); WBC,Urine 1 /hpf (0-5)
[2023-01-13] MEDS ORDERED: LABETALOL 5 MG/ML VIAL MDV IVP STA (19:05)
[2023-01-13 19:10] LABS: Amphetamine Screen,Urine Not Detected (NotDetected); Barbiturate Screen,Urine Not Detected (NotDetected); Benzodiazepines Screen,Urine Detected (NotDetected); Cocaine Screen,Urine Not Detected (NotDetected); Methadone Screen, Urine Not Detected (NotDetected); Opiate Screen,Urine Detected (NotDetected); Oxycodone Screen, Urine Not Detected (NotDetected); Phencyclidine Screen,Urine Not Detected (NotDetected); Tricyclic Antidepressant,Urine Not Detected (NotDetected); Urn Cannabinoid Scrn Detected (NotDetected)
[2023-01-13] MEDS ORDERED: NALOXONE 0.4 MG/ML 1 ML VIAL IV PRN (21:02)
[2023-01-13 21:05] LABS: VBG PH 7.28 (7.31-7.41)
[2023-01-13] MEDS ORDERED: ONDANSETRON 4 MG/2 ML VIAL IVP STA (22:19)
[2023-01-13] MEDS ORDERED: ALBUTEROL NEBULIZED 2.5 MG/3 ML INHALATION PRN (22:30)
[2023-01-13] MEDS ORDERED: diphenhydrAMINE 50 MG/ML 1 ML VIAL IVP STA (22:54)
[2023-01-13] MEDS ORDERED: METOCLOPRAMIDE 5 MG/ML 2 ML VIAL IVP STA (22:54)
[2023-01-14] MEDS ORDERED: HALOPERIDOL LACTATE 5 MG/ML 1 ML VIAL IVP PRN (00:01)
[2023-01-14] MEDS ORDERED: HALOPERIDOL LACTATE 5 MG/ML 1 ML VIAL IM STA (00:33)
[2023-01-14] MEDS ORDERED: HALOPERIDOL LACTATE 5 MG/ML 1 ML VIAL IVP STA (00:37)
--- NOTE | 2023-01-14 00:58 | CT ---
EXAMINATION TYPE: CT abdomen pelvis w con CT DLP: 1030 mGycm, Automated exposure control for dose reduction was used. DATE OF EXAM: 01/14/2023 12:39 AM COMPARISON: 01/14/2020 CLINICAL INDICATION:Male, 62 years old with history of pain; TECHNIQUE: Axial CT of the abdomen and pelvis. Sagittal and coronal reformats were created on a [employer] workstation. Contrast used: 70 cc of Isovue-300. Oral contrast used: (none if empty) FINDINGS: LOWER CHEST: Unremarkable ABDOMEN LIVER: Scattered airspace opacities which are somewhat groundglass. GALLBLADDER AND BILE DUCTS: Unremarkable. PANCREAS: Unremarkable. SPLEEN: Unremarkable. ADRENAL GLANDS: Unremarkable. KIDNEYS AND URETERS: Nonobstructing right 5 x 2 mm calculus. Normal (calculated. No hydronephrosis. S lightly asymmetric decreased size of the right kidney compared to the left. PELVIS BLADDER: Unremarkable REPRODUCTIVE: Unremarkable. ABDOMEN & PELVIS STOMACH AND BOWEL: No evidence of bowel obstruction. Large stool burden throughout the colon. Scatter ed colonic diverticula. PERITONEUM/RETROPERITONEUM: No evidence of pneumoperitoneum or free fluid. VASCULATURE: No evidence of aortic aneurysm. MUSCULOSKELETAL: No acute osseous abnormalities. Moderate disc degeneration changes are present throu ghout the thoracolumbar spine. LYMPH NODES: No gross evidence for lymphadenopathy. SOFT TISSUE/ABDOMINAL WALL: Fat-containing left inguinal hernia and fatty changes or inguinal canal. Fat-containing umbilical hernia. IMPRESSION: 1. No evidence for acute abdominal process. 2. There is a large stool burden throughout the colon with colonic diverticula. 3. Obstructing right renal calculus. 4. Groundglass opacities within the lung bases, findings which could represent sequela prior infecti on seen on 01/14/2020.
[2023-01-14] MEDS: SYMBICORT 160-4.5 MCG INHALER INHALATION SCH ×2 (07:32→19:31)
[2023-01-14 08:00] LABS: Basophils % (A) 0 %; Eosinophils # (A) 0.1 k/uL (0-0.7); Eosinophils % (A) 1 %; HGB 12.2 gm/dL (13.0-17.5); Lymphocytes # (A) 1.3 k/uL (1.0-4.8); Lymphocytes % (A) 11 %; MCH 30.5 pg (25.0-35.0); MCHC 32.9 g/dL (31.0-37.0); MCV 92.8 fL (80.0-100.0); Monocytes # (A) 0.8 k/uL (0-1.0); Monocytes % (A) 6 %; Neutrophils # (A) 10.3 k/uL (1.3-7.7); Neutrophils % (A) 82 %; Platelet Count 213 k/uL (150-450); RBC 3.99 m/uL (4.30-5.90); RDW 13.8 % (11.5-15.5); WBC 12.6 k/uL (3.8-10.6)
[2023-01-14 08:21] LABS: African American GFR (CKD) >90 (>60 ml/min/1.73 sqM); Blood Urea Nitrogen 26 mg/dL (9-20); Calcium 8.6 mg/dL (8.4-10.2); Carbon Dioxide 23 mmol/L (22-30); Glucose 56 mg/dL (74-99); Non-African American GFR(CKD) 78 (>60 ml/min/1.73 sqM); Sodium 139 mmol/L (137-145)
--- NOTE | 2023-01-14 08:21 | P.HPIM ---
History of Present Illness H&P Date: 01/13/23 Chief Complaint: Altered mental status 62-year-old male with history of COPD, continued cigarette use, to previous episodes of ventilator dependent respiratory failure. Patient is brought to the hospital today by his significant other who reports that throughout the day ye sterday he was complaining about shortness of breath and today he seems to be very confused. Significant other reports that this has happened in the past and he usually has to be put on the ventilator. In the ED patient did not respond to any questions and was moaning with vocational inappropriate words Patient was evaluated, labs including ABGs were ordered. CBC resulted with leukocytosis. CMP was relatively unremarkable. ABG shows no acidosis, no hypoxia and no hypercapnia. Labs and imaging revealed no cause for the patient's altered mental status, computed tomography scan was obtained and did not reveal any acute findings. Given patient's encephalopathy he will be admitted the hospital for further evaluation; urine drug screen is ordered Review of Systems ROS unobtainable: due to mental status Past Medical History Past Medical History: COPD, Pneumonia Additional Past Medical History / Comment(s): back pain History of Any Multi-Drug Resistant Organisms: None Reported Past Surgical History: Back Surgery Additional Past Surgical History / Comment(s): neck fusion,rt eye surgery, rt hand surgery Past Anesthesia/Blood Transfusion Reactions: No Reported Reaction Past Psychological History: Depression Smoking Status: Current every day smoker Past Alcohol Use History: Occasional Past Drug Use History: Marijuana - Past Family History Mother History Unknown: Yes Family Medical History: Myocardial Infarction ([place]) Additional Family Medical History / Comment(s): from [place] Medications and Allergies Home Medications Medication Instructions Recorded Confirmed Type HYDROcodone/APAP 7.5-325MG [Straughn 1 tab PO DAILY PRN 04/25/21 01/13/23 History 7.5-325] DULoxetine HCL [Cymbalta] 30 mg PO BID 04/15/22 01/13/23 History Budesonide-Formot 160-4.5 Mcg 2 puff INHALATION RT-BID #1 each 04/18/22 01/13/23 Rx [Symbicort 160-4.5 Mcg Inhaler] Albuterol Inhaler [Ventolin Hfa 2 puff INHALATION RT-QID PRN 04/22/22 01/13/23 History Inhaler] Acetaminophen [Tylenol 8 Hour] 650 - 1,300 mg PO Q8H PRN 01/13/23 01/13/23 History Baclofen [Lioresal] 10 mg PO TID PRN 01/13/23 01/13/23 History Meloxicam [Mobic] 15 mg PO DAILY PRN 01/13/23 01/13/23 History Allergies Allergy/AdvReac Type Severity Reaction Status Date / Time potassium chloride Allergy Swelling Verified 04/22/22 14:44 [From Klor-Con] sacubitril [From Entresto] Allergy Unknown Verified 04/22/22 14:44 valsartan [From Entresto] Allergy Unknown Verified 04/22/22 14:44 Physical Exam Vitals: Vital Signs Temp Pulse Resp BP Pulse Ox 01/13/23 20:19 91 18 153/119 95 01/13/23 19:09 104 H 18 144/95 98 01/13/23 18:42 89 24 170/112 96 01/13/23 18:00 97 18 170/112 97 01/13/23 17:30 64 17 152/106 97 01/13/23 16:47 78 157/112 96 01/13/23 16:01 98.1 F 90 20 161/88 98 Intake and Output 01/13/23 01/13/23 01/13/23 06:59 14:59 22:59 Other: Weight 74.843 kg PHYSICAL EXAMINATION: GENERAL: The patient is alert and oriented x3, not in any acute distress. Well developed, well nourished. HEENT: Pupils are round and equally reacting to light. EOMI. No scleral icterus. No conjunctival pallor. Normocephalic, atraumatic. No pharyngeal erythema. No thyromegaly. CARDIOVASCULAR: S1 and S2 present. No murmurs, rubs, or gallops. PULMONARY: Chest is clear to auscultation, no wheezing or crackles. ABDOMEN: Soft, nontender, nondistended, normoactive bowel sounds. No palpable organomegaly. MUSCULOSKELETAL: No joint swelling or deformity. EXTREMITIES: No cyanosis, clubbing, or pedal edema. NEUROLOGICAL: Alert but confused. Gross neurological examination did not reveal any focal deficits. SKIN: No rashes. Results CBC & Chem 7: 01/14/23 06:01 01/13/23 16:39 Labs: Abnormal Lab Results - Last 24 Hours (Table) 01/13/23 01/13/23 01/13/23 Range/Units 16:39 16:39 16:39 WBC 16.3 H (3.8-10.6) k/uL Neutrophils # 13.6 H (1.3-7.7) k/uL ABG pO2 (83-108) mmHg ABG Total CO2 (19-24) mmol/L ABG O2 Saturation (94-97) % VBG pH 7.28 L (7.31-7.41) VBG HCO3 23 L (24-28) mmol/L Potassium 3.4 L (3.5-5.1) mmol/L Chloride 109 H (98-107) mmol/L BUN 26 H (9-20) mg/dL Urine Protein (Negative) Urine Blood (Negative) Urine RBC (0-5) /hpf Urine Mucus (None) /hpf Urine Opiates Screen (NotDetected) U Benzodiazepines Scrn (NotDetected) U Marijuana (THC) Screen (NotDetected) 01/13/23 01/13/23 01/13/23 Range/Units 16:47 18:42 18:42 WBC (3.8-10.6) k/uL Neutrophils # (1.3-7.7) k/uL ABG pO2 128 H (83-108) mmHg ABG Total CO2 25 H (19-24) mmol/L ABG O2 Saturation 98.6 H (94-97) % VBG pH (7.31-7.41) VBG HCO3 (24-28) mmol/L Potassium (3.5-5.1) mmol/L Chloride (98-107) mmol/L BUN (9-20) mg/dL Urine Protein 1+ H (Negative) Urine Blood Small H (Negative) Urine RBC 25 H (0-5) /hpf Urine Mucus Rare H (None) /hpf Urine Opiates Screen Detected H (NotDetected) U Benzodiazepines Scrn Detected H (NotDetected) U Marijuana (THC) Screen Detected H (NotDetected) Assessment and Plan Assessment: 1. Altered mental status; possibly related to substance abuse versus other - Workup did not reveal any cause of mental status change; ABGs did not reveal any hypercapnia or acidosis; ammonia level is within normal limits - CT of the head is negative for any acute abnormality - We will admit for further evaluation; neuro checks per protocol; order urine drug screen; which reveals opiates, benzodiazepines and marijuana - We will consult neurology for evaluation and further recommendations 2. Substance abuse; urine drug screen is positive for opiates, benzodiazepines and marijuana; patient does take [place] at home but not any benzodiazepines 3. Asthma/COPD; not in exacerbation; ABGs are unremarkable; continue with home inhaler therapy 4. Chronic back pain; patient takes meloxicam, baclofen and [place] 5. Depression; Cymbalta 30 mg by mouth twice a day 6. Uncontrolled hypertension; patient was initially found to have markedly elevated blood pressure off 170/112 - Patient was ordered IV hydralazine in ED; blood pressure stabilized without an y antihypertensive therapy - We will monitor blood pressure closely and recommend antihypertensive therapy if blood pressure continues to fluctuate DVT prophylaxis; SCDs CODE STATUS; full code
[2023-01-14 09:59] LABS: Anion Gap 6 mmol/L; Chloride 110 mmol/L (98-107); Potassium 4.3 mmol/L (3.5-5.1)
[2023-01-14] MEDS ORDERED: MELOXICAM 7.5 MG TAB PO PRN (20:59)
--- NOTE | 2023-01-14 20:59 | P.PN ---
Subjective Progress Note Date: 01/14/23 62-year-old male with history of COPD, continued cigarette use, to previous episodes of ventilator dependent respiratory failure. Patient is brought to the hospital today by his significant other who reports that throughout the day yesterday he was complaining about shortness of breath and today he seems to be very confused. Significant other reports that this has happened in the past and he usually has to be put on the ventilator. In the ED patient did not respond to any questions and was moaning with vocational inappropriate words Patient was evaluated, labs including ABGs were ordered. CBC resulted with leukocytosis. CMP was relatively unremarkable. ABG shows no acidosis, no hypoxia and no hypercapnia. Labs and imaging revealed no cause for the patient's altered mental status, computed tomography scan was obtained and did not reveal any acute findings. Given patient's encephalopathy he will be admitted the hospital for further evaluation; urine drug screen is ordered -- Patient is more awake this morning and already demanding to be restarted on pain medications -- Neurology has been consulted and await evaluation and recommendations-- will review patient's home meds ans resume cautiously; UDS is positive for marijuana WBC is trending down without any intervention; no signs of seticemia Objective - Vital Signs Vital signs: Vital Signs Temp 98.6 F 01/14/23 07:48 Pulse 79 01/14/23 07:48 Resp 18 01/14/23 07:48 BP 120/79 01/14/23 07:48 Pulse Ox 99 01/14/23 07:48 FiO2 Intake & Output 01/13/23 01/14/23 01/14/23 18:59 06:59 18:59 Weight 74.843 kg 74.843 kg - Exam GENERAL: The patient is alert and oriented x3, not in any acute distress. Well developed, well nourished. HEENT: Pupils are round and equally reacting to light. EOMI. No scleral icterus. No conjunctival pallor. Normocephalic, atraumatic. No pharyngeal erythema. No thyromegaly. CARDIOVASCULAR: S1 and S2 present. No murmurs, rubs, or gallops. PULMONARY: Chest is clear to auscultation, no wheezing or crackles. ABDOMEN: Soft, nontender, nondistended, normoactive bowel sounds. No palpable organomegaly. MUSCULOSKELETAL: No joint swelling or deformity. EXTREMITIES: No cyanosis, clubbing, or pedal edema. NEUROLOGICAL: Alert but confused. Gross neurological examination did not reveal any focal deficits. SKIN: No rashes. - Labs CBC & Chem 7: 01/14/23 06:01 01/14/23 06:01 Labs: Abnormal Lab Results - Last 24 Hours (Table) 01/13/23 01/13/23 01/13/23 Range/Units 16:39 16:39 16:39 WBC 16.3 H (3.8-10.6) k/uL RBC (4.30-5.90) m/uL Hgb (13.0-17.5) gm/dL Hct (39.0-53.0) % Neutrophils # 13.6 H (1.3-7.7) k/uL ABG pO2 (83-108) mmHg ABG Total CO2 (19-24) mmol/L ABG O2 Saturation (94-97) % VBG pH 7.28 L (7.31-7.41) VBG HCO3 23 L (24-28) mmol/L Potassium 3.4 L (3.5-5.1) mmol/L Chloride 109 H (98-107) mmol/L BUN 26 H (9-20) mg/dL Glucose (74-99) mg/dL Urine Protein (Negative) Urine Blood (Negative) Urine RBC (0-5) /hpf Urine Mucus (None) /hpf Urine Opiates Screen (NotDetected) U Benzodiazepines Scrn (NotDetected) U Marijuana (THC) Screen (NotDetected) 01/13/23 01/13/23 01/13/23 Range/Units 16:47 18:42 18:42 WBC (3.8-10.6) k/uL RBC (4.30-5.90) m/uL Hgb (13.0-17.5) gm/dL Hct (39.0-53.0) % Neutrophils # (1.3-7.7) k/uL ABG pO2 128 H (83-108) mmHg ABG Total CO2 25 H (19-24) mmol/L ABG O2 Saturation 98.6 H (94-97) % VBG pH (7.31-7.41) VBG HCO3 (24-28) mmol/L Potassium (3.5-5.1) mmol/L Chloride (98-107) mmol/L BUN (9-20) mg/dL Glucose (74-99) mg/dL Urine Protein 1+ H (Negative) Urine Blood Small H (Negative) Urine RBC 25 H (0-5) /hpf Urine Mucus Rare H (None) /hpf Urine Opiates Screen Detected H (NotDetected) U Benzodiazepines Scrn Detected H (NotDetected) U Marijuana (THC) Screen Detected H (NotDetected) 01/14/23 01/14/23 Range/Units 06:01 06:01 WBC 12.6 H (3.8-10.6) k/uL RBC 3.99 L (4.30-5.90) m/uL Hgb 12.2 L (13.0-17.5) gm/dL Hct 37.0 L (39.0-53.0) % Neutrophils # 10.3 H (1.3-7.7) k/uL ABG pO2 (83-108) mmHg ABG Total CO2 (19-24) mmol/L ABG O2 Saturation (94-97) % VBG pH (7.31-7.41) VBG HCO3 (24-28) mmol/L Potassium (3.5-5.1) mmol/L Chloride 110 H (98-107) mmol/L BUN 26 H (9-20) mg/dL Glucose 56 L (74-99) mg/dL Urine Protein (Negative) Urine Blood (Negative) Urine RBC (0-5) /hpf Urine Mucus (None) /hpf Urine Opiates Screen (NotDetected) U Benzodiazepines Scrn (NotDetected) U Marijuana (THC) Screen (NotDetected) Assessment and Plan Assessment: 1. Altered mental status; possibly related to substance abuse versus other - Workup did not reveal any cause of mental status change; ABGs did not reveal any hypercapnia or acidosis; ammonia level is within normal limits - CT of the head is negative for any acute abnormality - We will admit for further evaluation; neuro checks per protocol; order urine drug screen; which reveals opiates, benzodiazepines and marijuana - We will consult neurology for evaluation and further recommendations 2. Substance abuse; urine drug screen is positive for opiates, benzodiazepines and marijuana; patient does take Victor at home but not any benzodiazepines 3. Asthma/COPD; not in exacerbation; ABGs are unremarkable; continue with home inhaler therapy 4. Chronic back pain; patient takes meloxicam, baclofen and Victor 5. Depression; Cymbalta 30 mg by mouth twice a day 6. Uncontrolled hypertension; patient was initially found to have markedly elevated blood pressure off 170/112 - Patient was ordered IV hydralazine in ED; blood pressure stabilized without any antihypertensive therapy - We will monitor blood pressure closely and recommend antihypertensive therapy if blood pressure continues to fluctuate DVT prophylaxis; SCDs CODE STATUS; full code
[2023-01-14] MEDS: HYDROcodone/APAP 7.5-325MG 1 EACH TAB PO PRN (21:54)
[2023-01-14 22:11] LABS: Glucose,Whole Blood 144 mg/dL (70-110)
[2023-01-15] MEDS: HYDROcodone/APAP 7.5-325MG 1 EACH TAB PO PRN (06:47)
[2023-01-15] MEDS: SYMBICORT 160-4.5 MCG INHALER INHALATION SCH (07:32)
--- NOTE | 2023-01-15 10:14 | P.CNNES ---
History of Present Illness Consult date: 01/14/23 Requesting physician: Isabelle Holguin Reason for Consult: Altered History of Present Illness: Patient is a 62-year-old male came to the hospital yesterday at 3:58 PM for generalized weakness. Patient states that he was just feeling bad for couple days. He is was not feeling right. He complains of a pinched nerve in the left lower back with sciatica type pain. He is not getting sleep. Patient does take [place], and also takes marijuana gummies daily. Patient states that he was not able to sleep, therefore he took a sleeping pill from one of his friend, does not know the name. He denies any focal symptoms like numbness tingling focal weakness, slurred speech facial droop. Patient believes that he is back to normal at this time. Vital signs on arrival blood pressure 161/88, pulse rate 90, temperature 98.1. Blood test shows WBC 16.3, with left shift, hemoglobin 13.1, platelets 238. PT/PTT normal, sodium normal potassium 3.4, normal renal functions. Hepatic panel is normal. Troponin negative, UA negative. Urine drug screen positive for opiates, benzodiazepines and marijuana. Blood alcohol level negative. Influenza screen, RSV and coronal virus PCR negative. CT head revealed no acute intracranial process. I personally reviewed CT head and agree with the findings. On my review, there is near complete opacification of the right maxillary sinus and also some ethmoid air sinuses. Computed tomography scan of abdomen and pelvis revealed no evidence for acute abdominal process. There is large stool burden throughout the colon with colonic diverticula. Obstructing right renal calculus. Groundglass opacities within the lung bases, findings which could represent sequela prior infection seen on 01/14/2020. Chest x-ray revealed chronic changes without evidence for acute process. Patient has been seen by myself on 01/19/2020 for altered mental status likely due to metabolic encephalopathy. At that time patient has presented with bilateral pneumonia with subsequent gaseous mismatch, chronic pain with chronic opiate use. Patient was also seen on 04/23/2022 for intermittent right orbital temporal headache which was felt to be related to acute maxillary sinusitis. Review of Systems Constitutional: Denies chills, Denies fever Eyes: denies blurred vision, denies diplopia, denies pain Ears: deny: decreased hearing, ear discharge Ears, nose, mouth and throat: Denies headache, Denies sore throat Cardiovascular: Denies chest pain, Denies shortness of breath Respiratory: Denies cough, Denies excessive sputum Gastrointestinal: Reports nausea, Denies abdominal pain, Denies diarrhea, Denies vomiting Musculoskeletal: Reports low back pain, Reports neck pain, Denies myalgias Integumentary: Reports unusual bruising, Denies pruritus, Denies rash Neurological: Reports as per HPI Psychiatric: Reports anxiety, Reports depression Endocrine: Reports fatigue, Denies weight change Past Medical History Past Medical History: COPD, Pneumonia Additional Past Medical History / Comment(s): back pain History of Any Multi-Drug Resistant Organisms: None Reported Past Surgical History: Back Surgery Additional Past Surgical History / Comment(s): neck fusion,rt eye surgery, rt hand surgery Past Anesthesia/Blood Transfusion Reactions: No Reported Reaction Past Psychological History: Depression Smoking Status: Current every day smoker Past Alcohol Use History: Occasional Past Drug Use History: Marijuana - Past Family History Mother History Unknown: Yes Family Medical History: Myocardial Infarction ([place]) Additional Family Medical History / Comment(s): from [place] Medications and Allergies Home Medications Medication Instructions Recorded Confirmed Type HYDROcodone/APAP 7.5-325MG [[place] 1 tab PO DAILY PRN 04/25/21 01/13/23 History 7.5-325] DULoxetine HCL [Cymbalta] 30 mg PO BID 04/15/22 01/13/23 History Budesonide-Formot 160-4.5 Mcg 2 puff INHALATION RT-BID #1 each 04/18/22 01/13/23 Rx [Symbicort 160-4.5 Mcg Inhaler] Albuterol Inhaler [Ventolin Hfa 2 puff INHALATION RT-QID PRN 04/22/22 01/13/23 History Inhaler] Acetaminophen [Tylenol 8 Hour] 650 - 1,300 mg PO Q8H PRN 01/13/23 01/13/23 History Baclofen [Lioresal] 10 mg PO TID PRN 01/13/23 01/13/23 History Meloxicam [Mobic] 15 mg PO DAILY PRN 01/13/23 01/13/23 History Allergies Allergy/AdvReac Type Severity Reaction Status Date / Time potassium chloride Allergy Swelling Verified 04/22/22 14:44 [From Klor-Con] sacubitril [From Entresto] Allergy Unknown Verified 04/22/22 14:44 valsartan [From Entresto] Allergy Unknown Verified 04/22/22 14:44 Physical Examination - Vital Signs Vital Signs: Vital Signs Temp Pulse Pulse Resp BP BP Pulse Ox 01/14/23 07:48 98.6 F 79 18 120/79 99 01/14/23 07:37 92 01/14/23 07:35 89 01/14/23 03:46 98.6 F 93 20 147/84 98 01/14/23 02:45 98.6 F 96 18 112/55 98 01/14/23 01:49 74 18 129/95 97 01/13/23 22:14 90 18 145/110 100 01/13/23 20:19 91 18 153/119 95 01/13/23 19:09 104 H 18 144/95 98 01/13/23 18:42 89 24 170/112 96 01/13/23 18:00 97 18 170/112 97 01/13/23 17:30 64 17 152/106 97 01/13/23 16:47 78 157/112 96 01/13/23 16:01 98.1 F 90 20 161/88 98 Intake and Output 01/13/23 01/14/23 01/14/23 22:59 06:59 14:59 Other: Weight 74.843 kg Patient is a late middle aged male, in no acute distress. Patient appears somewhat disheveled. Patient is alert awake oriented to time place and person. Patient knows it is December 2022 and that he is in [facility] in [place] in [facility] and name of the current president. Speech and language functions are normal. Patient can name and repeat very well. No aphasia or dysarthria. Attention, concentration and fund of knowledge is adequate. On cranial nerve examination, pupils are equal, round and reacting to light, visual interiano are full on confrontation, with no neglect on double simultaneous stimulation. Extraocular muscles are intact with no nystagmus. Face is symmetric, tongue protrudes to the midline. Palatal elevation and sensation normal, hearing and shoulder shrug normal, facial sensation normal. On muscle strength testing, there is no pronator drift and the strength is normal in arms and legs distally and proximally. Deep tendon reflexes are very brisk, about 3 all over and plantars are upgoing bilaterally. Patient has sustained clonus on the right, but nonsustained clonus on the left. No no Sensory to touch is equal with no neglect on double simultaneous stimulation. Cerebellar function showed very mild terminal ataxia for [id number] testing bilaterally. No dysdiadochokinesia. No ataxia for [id number] testing on either side. Tone is increased mildly bilaterally and bulk of muscles normal. Gait deferred.. On general examination, there is no carotid bruit or murmur, S1-S2 audible. Chest is clear on consultation. Abdomen is soft nontender. No organomegaly, bowel sounds present. Peripheral pulses are present. No edema. Patient has a bruise on the left thigh. Results - Laboratory Findings CBC and BMP: 01/14/23 06:01 01/14/23 06:01 Abnormal Lab Findings: Abnormal Labs 01/13/23 01/13/23 01/13/23 16:39 16:39 16:39 WBC 16.3 H RBC Hgb Hct Neutrophils # 13.6 H ABG pO2 ABG Total CO2 ABG O2 Saturation VBG pH 7.28 L VBG HCO3 23 L Potassium 3.4 L Chloride 109 H BUN 26 H Glucose Urine Protein Urine Blood Urine RBC Urine Mucus Urine Opiates Screen U Benzodiazepines Scrn U Marijuana (THC) Screen 01/13/23 01/13/23 01/13/23 16:47 18:42 18:42 WBC RBC Hgb Hct Neutrophils # ABG pO2 128 H ABG Total CO2 25 H ABG O2 Saturation 98.6 H VBG pH VBG HCO3 Potassium Chloride BUN Glucose Urine Protein 1+ H Urine Blood Small H Urine RBC 25 H Urine Mucus Rare H Urine Opiates Screen Detected H U Benzodiazepines Scrn Detected H U Marijuana (THC) Screen Detected H 01/14/23 01/14/23 06:01 06:01 WBC 12.6 H RBC 3.99 L Hgb 12.2 L Hct 37.0 L Neutrophils # 10.3 H ABG pO2 ABG Total CO2 ABG O2 Saturation VBG pH VBG HCO3 Potassium Chloride 110 H BUN 26 H Glucose 56 L Urine Protein Urine Blood Urine RBC Urine Mucus Urine Opiates Screen U Benzodiazepines Scrn U Marijuana (THC) Screen Assessment and Plan Assessment: * Altered mental status, likely due to mild metabolic encephalopathy. Possible due to polypharmacy. Patient takes [place], also takes marijuana gummies and also took one tablet of sleeping pill from a friend, which likely resulted in altered mental status. Current neurological examination is stable. Patient feels back to baseline. 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 His mentation is back to normal. * Suggest avoid marijuana, and patient strongly recommended not to take sleeping pills from his friends. * Medical management as per IM. * Check B12, folate. * Neurologically, no other workup indicated. * Thank you for the consult.
[2023-01-15 12:48] LABS: African American GFR (CKD) >90 (>60 ml/min/1.73 sqM); Anion Gap 5 mmol/L; Blood Urea Nitrogen 19 mg/dL (9-20); Calcium 8.5 mg/dL (8.4-10.2); Carbon Dioxide 25 mmol/L (22-30); Chloride 110 mmol/L (98-107); Glucose 85 mg/dL (74-99); Non-African American GFR(CKD) 89 (>60 ml/min/1.73 sqM); Sodium 140 mmol/L (137-145)
--- NOTE | 2023-01-15 13:26 | P.DS ---
Providers Date of admission: 01/13/23 21:03 Expected date of discharge: 01/15/23 Attending physician: Meghana Vela MD Consults: 01/13/23 21:02 Consult Physician Urgent Consulting Provider: Leonard Ramos Consult Reason/Comments: altered Do you want consulting provider notified?: Yes, Notify in am Primary care physician: Joseph Granger MD Hospital Course: 62-year-old male with history of COPD, continued cigarette use, to previous episodes of ventilator dependent respiratory failure. Patient is brought to the hospital today by his significant other who reports that throughout the day yesterday he was complaining about shortness of breath and today he seems to be very confused. Significant other reports that this has happened in the past and he usually has to be put on the ventilator. In the ED patient did not respond to any questions and was moaning with vocational inappropriate words Patient was evaluated, labs including ABGs were ordered. CBC resulted with le ukocytosis. CMP was relatively unremarkable. ABG shows no acidosis, no hypoxia and no hypercapnia. Labs and imaging revealed no cause for the patient's altered mental status, computed tomography scan was obtained and did not reveal any acute findings. Given patient's encephalopathy he will be admitted the hospital for further evaluation; urine drug screen is ordered -- Patient is more awake this morning and already demanding to be restarted on pain medications -- Neurology has been consulted and await evaluation and recommendations-- will review patient's home meds ans resume cautiously; UDS is positive for marijuana WBC is trending down without any intervention; no signs of seticemia. 01/15/2023 patient seen and evaluated bedside. Patient alert and oriented 4. Asymptomatic patient to be discharged home in a stable condition. at bedside on room air. Continue home inhalers including Symbicort and albuterol PHYSICAL EXAMINATION: GENERAL: The patient is alert and oriented x3, not in any acute distress. Well developed, well nourished. HEENT: Pupils are round and equally reacting to light. EOMI. No scleral icterus. No conjunctival pallor. Normocephalic, atraumatic. No pharyngeal erythema. No thyromegaly. CARDIOVASCULAR: S1 and S2 present. No murmurs, rubs, or gallops. PULMONARY: Chest is clear to auscultation, no wheezing or crackles. ABDOMEN: Soft, nontender, nondistended, normoactive bowel sounds. No palpable organomegaly. MUSCULOSKELETAL: No joint swelling or deformity. EXTREMITIES: No cyanosis, clubbing, or pedal edema. NEUROLOGICAL: Gross neurological examination did not reveal any focal deficits. SKIN: No rashes. Assessment: 1. Altered mental status; possibly related to substance abuse - Workup did not reveal any cause of mental status change; ABGs did not reveal any hypercapnia or acidosis; ammonia level is within normal limits - CT of the head is negative for any acute abnormality - We will admit for further evaluation; neuro checks per protocol; order urine drug screen; which reveals opiates, benzodiazepines and marijuana - We will consult neurology for evaluation and further recommendations 2. Substance abuse; urine drug screen is positive for opiates, benzodiazepines and marijuana; patient does take On[place] at home but not any benzodiazepines 3. Asthma/COPD; not in exacerbation; ABGs are unremarkable; continue with home inhaler therapy 4. Chronic back pain; patient takes meloxicam, baclofen and On[place] 5. Depression; Cymbalta 30 mg by mouth twice a day 6. Uncontrolled hypertension; patient was initially found to have markedly elevated blood pressure off 170/112 - Patient was ordered IV hydralazine in ED; blood pressure stabilized without any antihypertensive therapy - Blood pressure improved throughout the hospitalization continue with follow-up with PCP outpatient Patient Condition at Discharge: Fair Plan - Discharge Summary Discharge Rx Participant: No New Discharge Prescriptions: Continue DULoxetine HCL [Cymbalta] 30 mg PO BID Albuterol Inhaler [Ventolin Hfa Inhaler] 2 puff INHALATION RT-QID PRN PRN Reason: Shortness Of Breath Meloxicam [Mobic] 15 mg PO DAILY PRN PRN Reason: Pain HYDROcodone/APAP 7.5-325MG [[place] 7.5-325] 1 tab PO DAILY PRN PRN Reason: Pain Budesonide-Formot 160-4.5 Mcg [Symbicort 160-4.5 Mcg Inhaler] 2 puff INHALATION RT-BID #1 each Baclofen [Lioresal] 10 mg PO TID PRN PRN Reason: Muscle Spasm Acetaminophen [Tylenol 8 Hour] 650 - 1,300 mg PO Q8H PRN PRN Reason: Pain Discharge Medication List HYDROcodone/APAP 7.5-325MG [[place] 7.5-325] 1 tab PO DAILY PRN 04/25/21 [History] DULoxetine HCL [Cymbalta] 30 mg PO BID 04/15/22 [History] Budesonide-Formot 160-4.5 Mcg [Symbicort 160-4.5 Mcg Inhaler] 2 puff INHALATION RT-BID #1 each 04/18/22 [Rx] Albuterol Inhaler [Ventolin Hfa Inhaler] 2 puff INHALATION RT-QID PRN 04/22/22 [History] Acetaminophen [Tylenol 8 Hour] 650 - 1,300 mg PO Q8H PRN 01/13/23 [History] Baclofen [Lioresal] 10 mg PO TID PRN 01/13/23 [History] Meloxicam [Mobic] 15 mg PO DAILY PRN 01/13/23 [History] Follow up Appointment(s)/Referral(s): Joseph Granger MD [Primary Care Provider] - 1-2 days Discharge Disposition: HOME SELF-CARE
[2023-01-15 13:32] VITALS: BP 156/87; PULSE 68; RESP 16; TEMP 98.2
== END 2023-01-15 13:43 | disposition home or self-care (01) ==
LOC: EC 15:58 → 4SSUR 21:03
PROVIDERS: ADMIT Internal Medicine; ATTEND Internal Medicine
DX: R41.82 Altered mental status, unspecified (principal); J44.1 Chronic obstructive pulmonary disease with (acute) exacerbation; G93.41 Metabolic encephalopathy; E87.20 Acidosis, unspecified; F32.A Depression, unspecified; J44.9 Chronic obstructive pulmonary disease, unspecified; I10 Essential (primary) hypertension; G89.29 Other chronic pain; M54.9 Dorsalgia, unspecified; F11.10 Opioid abuse, uncomplicated; F12.10 Cannabis abuse, uncomplicated; F19.10 Other psychoactive substance abuse, uncomplicated; F17.210 Nicotine dependence, cigarettes, uncomplicated; Z79.1 Long term (current) use of non-steroidal anti-inflammatories (NSAID); Z79.51 Long term (current) use of inhaled steroids; Z79.899 Other long term (current) drug therapy; Z20.822 Contact with and (suspected) exposure to COVID-19
CPT/HCPCS: 36415; 36600; 70450; 71045; 74177; 80048; 80053; 80306; 80320; 81001; 82140; 82607; 82746; 82803; 82805; 83605; 83880; 84484; 85025; 85610; 85730; 87040; 87636; 93005; 94640; 94760; 96372; 96374; 96375; 99285

== ENCOUNTER 2023-03-12 08:46 | Inpatient (IN) | payer OTHER ==
[2023-03-12] MEDS ORDERED: IPRATROPIUM-ALBUTEROL 3 ML NEB INHALATION STA (09:00)
[2023-03-12] MEDS ORDERED: DEXAMETHASONE SOD PHOSPHATE 10 MG/ML 1 ML VIAL IV STA (09:00)
--- NOTE | 2023-03-12 09:05 | ED ---
General Adult HPI - General Chief complaint: Shortness of Breath Stated complaint: ERIC, cough Time Seen by Provider: 03/12/23 08:54 Source: patient Mode of arrival: wheelchair Limitations: no limitations - History of Present Illness Initial comments: Dictation was produced using [employer] dictation software. please excuse any grammatical, word or spelling errors. Chief Complaint: 63-year-old male presents to the ER for cough dyspnea 4 days History of Present Illness: Patient is a 63-year-old male presents to the ER for 4 days of shortness of breath. He's been having productive cough. His sputum is yellow. He does complain of shortness of breath. Patient has been smoking for several years. Has not ever been formally diagnosed COPD. States that he hasn't smoked in the last 4 days due to feeling short of breath. He has had significant illness similar to this in the past where he had to be admitted to the hospital. Does complain of chills. Denies any fevers. No obvious sick contacts. He took a breathing treatment at home with minimal improvement of his symptoms. The ROS documented in this emergency department record has been reviewed and confirmed by me. Those systems with pertinent positive or negative responses have been documented in the HPI. All other systems are other negative and/or noncontributory. - Related Data Home Medications Medication Instructions Recorded Confirmed HYDROcodone/APAP 7.5-325MG [[place] 0.5 tab PO AC-BID 04/25/21 03/12/23 7.5-325] DULoxetine HCL [Cymbalta] 30 mg PO BID 04/15/22 03/12/23 Baclofen [Lioresal] 10 mg PO TID PRN 01/13/23 03/12/23 Budesonide-Formot 160-4.5 Mcg 2 puff INHALATION RT-BID PRN 03/12/23 03/12/23 [Symbicort 160-4.5 Mcg Inhaler] Allergies Allergy/AdvReac Type Severity Reaction Status Date / Time potassium chloride Allergy Swelling Verified 03/12/23 11:08 [From Klor-Con] sacubitril [From Entresto] Allergy Unknown Verified 03/12/23 11:08 trazodone Allergy Rash/Hives Verified 03/12/23 11:08 valsartan [From Entresto] Allergy Unknown Verified 03/12/23 11:08 Review of Systems ROS Statement: Those systems with pertinent positive or pertinent negative responses have been documented in the HPI. ROS Other: All systems not noted in ROS Statement are negative. Past Medical History Past Medical History: COPD, Pneumonia Additional Past Medical History / Comment(s): back pain History of Any Multi-Drug Resistant Organisms: None Reported Past Surgical History: Back Surgery Additional Past Surgical History / Comment(s): neck fusion,rt eye surgery, rt hand surgery Past Anesthesia/Blood Transfusion Reactions: No Reported Reaction Past Psychological History: Depression Smoking Status: Current every day smoker Past Alcohol Use History: Occasional Past Drug Use History: Marijuana - Past Family History Mother History Unknown: Yes Family Medical History: Myocardial Infarction ([place]) Additional Family Medical History / Comment(s): from [place] General Exam - General Exam Comments Initial Comments: PHYSICAL EXAM: General Impression: Alert and oriented x3, not in acute distress HEENT: Normocephalic atraumatic, extra-ocular movements intact, pupils equal and reactive to light bilaterally, mucous membranes moist. Cardiovascular: Heart regular rate and rhythm Chest: Rhonchi to the right inferior posterior lung interiano Abdomen: abdomen soft, non-tender, non-distended, no organomegaly Musculoskeletal: Pulses present and equal in all extremities, no peripheral edema Motor: no focal deficits noted Neurological: CN II-XII grossly intact, no focal motor or sensory deficits noted Skin: Intact with no visualized rashes Psych: Normal affect and mood Limitations: no limitations Course Vital Signs 03/12/23 03/12/23 03/12/23 08:50 08:58 09:00 Temperature 99.0 F Pulse Rate 113 H 101 H Respiratory 24 Rate Blood Pressure 124/78 136/90 O2 Sat by Pulse 86 L 93 L 92 L Oximetry 03/12/23 03/12/23 03/12/23 09:18 09:20 10:04 Temperature Pulse Rate 101 H 109 H Respiratory 24 20 Rate Blood Pressure 121/80 O2 Sat by Pulse 94 L Oximetry 03/12/23 03/12/23 03/12/23 10:13 10:30 11:05 Temperature Pulse Rate 100 108 H 104 H Respiratory 22 20 Rate Blood Pressure 110/78 115/78 O2 Sat by Pulse 97 96 Oximetry EKG Findings - EKG Comments: EKG Findings:: My EKG interpretation: Ventricular rate 99, sinus rhythm, WA interval 104, QRS 81, QTC 372. No WA prolongation, no QTC prolongation, no ST or T-wave changes noted. EKG compared to 01/13/2023 showing no changes. Overall, this EKG is unremarkable Medical Decision Making - Medical Decision Making Was pt. sent in by a medical professional or institution (, DIVYA, TRAINING PROGRAM DEVELOPER, urgent care, hospital, or half-way...) When possible be specific @ -No Did you speak to anyone other than the patient for history (EMS, parent, family, police, friend...)? What history was obtained from this source @ -No Did you review nursing and triage notes (agree or disagree)? Why? @ -I reviewed and agree with nursing and triage notes Were old charts reviewed (outside hosp., previous admission, EMS record, old EKG, old radiological studies, urgent care reports/EKG's, half-way records)? Report findings @ -No old charts were reviewed Differential Diagnosis (chest pain, altered mental status, abdominal pain women, abdominal pain men, vaginal bleeding, musculoskeletal, weakness, fever, dyspnea, syncope, headache, dizziness, GI bleed, back pain, seizure, CVA, palpatations, mental health)? @ -Differential Dyspnea: Coronary syndrome, arrhythmia, tamponade, asthma, COPD, pulmonary embolism, pneumonia, pneumothorax, pulmonary effusion, anaphylaxis, diabetic ketoacidosis, flailed chest, pulmonary contusion, diaphragmatic rupture, anemia, neuromuscular, this is not meant to be an all-inclusive list. EKG interpreted by me (3pts min.). @ -See above X-rays interpreted by me (1pt min.). @ -Infiltrative process to the right posterior lung base CT interpreted by me (1pt min.). @ -None done U/S interpreted by me (1pt. min.). @ -None done What testing was considered but not performed or refused? (CT, X-rays, U/S, labs)? Why? @ -None What meds were considered but not given or refused? Why? @ -None Did you discuss the management of the patient with other professionals (professionals i.e. DIVYA Zuñiga, TRAINING PROGRAM DEVELOPER, lab, RT, psych nurse, social worker psychiatric, family lawyer, teacher, aoc aadc operations staff officer, rn case manager)? Give summary @ -Case discussed with Dr. Vegesna for admission Was smoking cessation discussed for >3mins.? @ -No Was critical care preformed (if so, how long)? @ -No Were there social determinants of health that impacted care today? How? (Homelessness, low income, unemployed, alcoholism, drug addiction, transportation, low edu. Level, literacy, decrease access to med. care, skilled nursing, rehab)? @ -No Was there de-escalation of care discussed even if they declined (Discuss DNR or withdrawal of care, Hospice)? DNR status @ -No What co-morbidities impacted this encounter? (DM, HTN, Smoking, COPD, CAD, Cancer, CVA, ARF, Chemo, Hep., AIDS, mental health diagnosis, sleep apnea, morb id obesity)? @ -None Was patient admitted / discharged? Hospital course, mention meds given and route, prescriptions, significant lab abnormalities, going to OR and other pertinent info. @ -63-year-old male presents to the emergency department for cough and dyspnea. Vital signs upon arrival shows hypoxia 86% on room air without tachycardia 113. Laboratory evaluation obtained. Lactic acidosis 3.0. Rest of labs within acceptable limits. X-ray supports diagnosis of pneumonia. Patient given antibiotics. Patient also given breathing treatment. Patient be admitted for further care. Undiagnosed new problem with uncertain prognosis? @ -No Drug Therapy requiring intensive monitoring for toxicity (Heparin, Nitro, Insulin, Cardizem)? @ -No Were any procedures done? @ -No Diagnosis/symptom? Acute, or Chronic, or Acute on Chronic? Uncomplicated (without systemic symptoms) or Complicated (systemic symptoms)? @ -Pneumonia, given by respiratory failure Side effects of treatment? @ -No Exacerbation, Progression, or Severe Exacerbation? @ -No Poses a threat to life or bodily function? How? (Chest pain, [place], [place], pneumonia, PE, COPD, DKA, ARF, appy, cholecystitis, CVA, Diverticulitis, Homicidal, Suicidal, threat to staff... and all critical care pts) @ -yes - Lab Data Result diagrams: 03/12/23 09:14 03/12/23 09:14 Lab Results 03/12/23 03/12/23 03/12/23 Range/Units 09:14 09:14 09:14 WBC 10.4 (3.8-10.6) k/uL RBC 4.94 (4.30-5.90) m/uL Hgb 14.9 (13.0-17.5) gm/dL Hct 43.7 (39.0-53.0) % MCV 88.4 (80.0-100.0) fL MCH 30.1 (25.0-35.0) pg MCHC 34.1 (31.0-37.0) g/dL RDW 12.8 (11.5-15.5) % Plt Count 212 (150-450) k/uL MPV 9.4 Neutrophils % 86 % Lymphocytes % 9 % Monocytes % 4 % Eosinophils % 0 % Basophils % 0 % Neutrophils # 9.0 H (1.3-7.7) k/uL Lymphocytes # 0.9 L (1.0-4.8) k/uL Monocytes # 0.4 (0-1.0) k/uL Eosinophils # 0.0 (0-0.7) k/uL Basophils # 0.0 (0-0.2) k/uL PT 9.9 L (10.0-12.5) sec INR 0.9 (<1.2) APTT 27.5 (22.0-30.0) sec Sodium 139 (137-145) mmol/L Potassium 4.3 (3.5-5.1) mmol/L Chloride 103 (98-107) mmol/L Carbon Dioxide 20 L (22-30) mmol/L Anion Gap 16 mmol/L BUN 21 H (9-20) mg/dL Creatinine 0.81 (0.66-1.25) mg/dL Est GFR (CKD-EPI)AfAm >90 (>60 ml/min/1.73 sqM) Est GFR (CKD-EPI)NonAf >90 (>60 ml/min/1.73 sqM) Glucose 126 H (74-99) mg/dL Plasma Lactic Acid Pierre (0.7-2.0) mmol/L Calcium 8.8 (8.4-10.2) mg/dL Magnesium 2.0 (1.6-2.3) mg/dL Total Bilirubin 1.1 (0.2-1.3) mg/dL AST 49 (17-59) U/L ALT 24 (4-49) U/L Alkaline Phosphatase 80 (38-126) U/L Troponin I (0.000-0.034) ng/mL NT-Pro-B Natriuret Pep 1220 pg/mL Total Protein 6.9 (6.3-8.2) g/dL Albumin 3.9 (3.5-5.0) g/dL 03/12/23 03/12/23 Range/Units 09:14 09:14 WBC (3.8-10.6) k/uL RBC (4.30-5.90) m/uL Hgb (13.0-17.5) gm/dL Hct (39.0-53.0) % MCV (80.0-100.0) fL MCH (25.0-35.0) pg MCHC (31.0-37.0) g/dL RDW (11.5-15.5) % Plt Count (150-450) k/uL MPV Neutrophils % % Lymphocytes % % Monocytes % % Eosinophils % % Basophils % % Neutrophils # (1.3-7.7) k/uL Lymphocytes # (1.0-4.8) k/uL Monocytes # (0-1.0) k/uL Eosinophils # (0-0.7) k/uL Basophils # (0-0.2) k/uL PT (10.0-12.5) sec INR (<1.2) APTT (22.0-30.0) sec Sodium (137-145) mmol/L Potassium (3.5-5.1) mmol/L Chloride (98-107) mmol/L Carbon Dioxide (22-30) mmol/L Anion Gap mmol/L BUN (9-20) mg/dL Creatinine (0.66-1.25) mg/dL Est GFR (CKD-EPI)AfAm (>60 ml/min/1.73 sqM) Est GFR (CKD-EPI)NonAf (>60 ml/min/1.73 sqM) Glucose (74-99) mg/dL Plasma Lactic Acid Pierre 3.0 H* (0.7-2.0) mmol/L Calcium (8.4-10.2) mg/dL Magnesium (1.6-2.3) mg/dL Total Bilirubin (0.2-1.3) mg/dL AST (17-59) U/L ALT (4-49) U/L Alkaline Phosphatase (38-126) U/L Troponin I <0.012 (0.000-0.034) ng/mL NT-Pro-B Natriuret Pep pg/mL Total Protein (6.3-8.2) g/dL Albumin (3.5-5.0) g/dL Disposition Clinical Impression: Pneumonia Disposition: ADMITTED IP TO THIS HOSP Condition: Fair Referrals: Joseph Granger MD [Primary Care Provider] - 1-2 days Decision Time: 11:00
[2023-03-12 10:05] LABS: INR 0.9 (<1.2); Partial Thromboplastin Time 27.5 sec (22.0-30.0); Prothrombin Time 9.9 sec (10.0-12.5)
[2023-03-12 10:10] LABS: ALT 24 U/L (4-49); AST 49 U/L (17-59); African American GFR (CKD) >90 (>60 ml/min/1.73 sqM); Albumin 3.9 g/dL (3.5-5.0); Alkaline Phosphatase 80 U/L (38-126); Anion Gap 16 mmol/L; Blood Urea Nitrogen 21 mg/dL (9-20); Calcium 8.8 mg/dL (8.4-10.2); Carbon Dioxide 20 mmol/L (22-30); Chloride 103 mmol/L (98-107); Glucose 126 mg/dL (74-99); Non-African American GFR(CKD) >90 (>60 ml/min/1.73 sqM); Potassium 4.3 mmol/L (3.5-5.1); Sodium 139 mmol/L (137-145); Total Bilirubin 1.1 mg/dL (0.2-1.3); Total Protein 6.9 g/dL (6.3-8.2)
[2023-03-12 10:15] LABS: Basophils % (A) 0 %; Eosinophils % (A) 0 %; HCT 43.7 % (39.0-53.0); HGB 14.9 gm/dL (13.0-17.5); Lymphocytes # (A) 0.9 k/uL (1.0-4.8); Lymphocytes % (A) 9 %; MCH 30.1 pg (25.0-35.0); MCHC 34.1 g/dL (31.0-37.0); MCV 88.4 fL (80.0-100.0); Mean Platelet Volume 9.4; Monocytes # (A) 0.4 k/uL (0-1.0); Monocytes % (A) 4 %; Neutrophils % (A) 86 %; Platelet Count 212 k/uL (150-450); RBC 4.94 m/uL (4.30-5.90); RDW 12.8 % (11.5-15.5); WBC 10.4 k/uL (3.8-10.6)
[2023-03-12 10:17] LABS: NT-Pro-B-Type Natriuretic Pept 1220 pg/mL
[2023-03-12] MEDS ORDERED: cefTRIAXone IN SWFI 1,000 MG/10 ML SYRINGE IVP STA (11:45)
[2023-03-12] MEDS ORDERED: AZITHROMYCIN 500 MG in SODIUM CHLORIDE 0.9% 250 ML IVPB STA (11:45)
[2023-03-12] MEDS ORDERED: PNEUMONIA PROTOCOL UTILIZED 1 EACH MISC PO PRN (11:47)
--- NOTE | 2023-03-12 11:49 | XR ---
EXAMINATION TYPE: XR chest 2V DATE OF EXAM: 03/12/2023 COMPARISON: 01/13/2023 INDICATION: Dyspnea TECHNIQUE: Frontal and lateral views of the chest are obtained. FINDINGS: The heart size is normal. The pulmonary vasculature is normal. Patchy infiltrates are present bilaterally. Findings are nonspecific. Consider atypical pneumonia.. IMPRESSION: 1. Patchy bilateral lung infiltrates. Correlate for atypical pneumonia.
[2023-03-12] MEDS ORDERED: HYDROcodone/APAP 7.5-325MG 1 EACH TAB PO PRN (12:52)
[2023-03-12] MEDS ORDERED: SYMBICORT 160-4.5 MCG INHALER INHALATION PRN (13:02)
--- NOTE | 2023-03-12 13:18 | P.HPIM ---
History of Present Illness 63-year-old male came in with compensative shortness of breath which has been going on for about 4 days, cough with yellow to greenish sputum production. Patient does smoke half a pack to a pack of cigarettes a day. Patient doesn't use any oxygen at home is requiring 4 L of oxygen here. Patient had a chest x- ray which showed infiltrate predominantly in the right lower lobes and middle lobes. Patient was given Rocephin and azithromycin. Patient has mildly elevated BNP of around 1000. Pro-calcitonin was ordered. REVIEW OF SYSTEMS: CONSTITUTIONAL: No fever, no malaise, no fatigue. HEENT: No recent visual problems or hearing problems. Denied any sore throat. CARDIOVASCULAR: No chest pain, orthopnea, PND, no palpitations, no syncope. PULMONARY: no hemoptysis. GASTROINTESTINAL: No diarrhea, no nausea, no vomiting, no abdominal pain. NEUROLOGICAL: No headaches, no weakness, no numbness. HEMATOLOGICAL: Denies any bleeding or petechiae. GENITOURINARY: Denies any burning micturition, frequency, or urgency. MUSCULOSKELETAL/RHEUMATOLOGICAL: Denies any joint pain, swelling, or any muscle pain. ENDOCRINE: Denies any polyuria or polydipsia. The rest of the 14-point review of systems is negative. PHYSICAL EXAMINATION: GENERAL: The patient is alert and oriented x3, not in any acute distress. Well developed, well nourished. HEENT: Pupils are round and equally reacting to light. EOMI. No scleral icterus. No conjunctival pallor. Normocephalic, atraumatic. No pharyngeal erythema. No thyromegaly. CARDIOVASCULAR: S1 and S2 present. No murmurs, rubs, or gallops. PULMONARY: Expiratory wheezing with bilateral rhonchi ABDOMEN: Soft, nontender, nondistended, normoactive bowel sounds. No palpable organomegaly. MUSCULOSKELETAL: No joint swelling or deformity. EXTREMITIES: No cyanosis, clubbing, or pedal edema. NEUROLOGICAL: Gross neurological examination did not reveal any focal deficits. SKIN: No rashes. Assessment and plan -Acute hypercapnic respiratory failure secondary to COPD exacerbation: Patient was started on Solu-Medrol continue with inhalational treatments sputum cultures will be obtained pro-calcitonin will be obtained -Possible right middle lobe pneumonia continue with Rocephin and azithromycin -Nicotine use: Counseling was provided DVT prophylaxis: Lovenox GI prophylaxis Pepcid Past Medical History Past Medical History: COPD, Pneumonia Additional Past Medical History / Comment(s): back pain History of Any Multi-Drug Resistant Organisms: None Reported Past Surgical History: Back Surgery Additional Past Surgical History / Comment(s): neck fusion,rt eye surgery, rt hand surgery Past Anesthesia/Blood Transfusion Reactions: No Reported Reaction Past Psychological History: Depression Smoking Status: Current every day smoker Past Alcohol Use History: Occasional Past Drug Use History: Marijuana - Past Family History Mother History Unknown: Yes Family Medical History: Myocardial Infarction ([place]) Additional Family Medical History / Comment(s): from [place] Medications and Allergies Home Medications Medication Instructions Recorded Confirmed Type HYDROcodone/APAP 7.5-325MG [[place] 0.5 tab PO AC-BID 04/25/21 03/12/23 History 7.5-325] DULoxetine HCL [Cymbalta] 30 mg PO BID 04/15/22 03/12/23 History Baclofen [Lioresal] 10 mg PO TID PRN 01/13/23 03/12/23 History Budesonide-Formot 160-4.5 Mcg 2 puff INHALATION RT-BID PRN 03/12/23 03/12/23 History [Symbicort 160-4.5 Mcg Inhaler] Allergies Allergy/AdvReac Type Severity Reaction Status Date / Time potassium chloride Allergy Swelling Verified 03/12/23 11:08 [From Klor-Con] sacubitril [From Entresto] Allergy Unknown Verified 03/12/23 11:08 trazodone Allergy Rash/Hives Verified 03/12/23 11:08 valsartan [From Entresto] Allergy Unknown Verified 03/12/23 11:08 Physical Exam Vitals: Vital Signs Temp Pulse Resp BP Pulse Ox 03/12/23 13:01 87 20 116/90 90 L 03/12/23 12:18 109 H 24 105/77 95 03/12/23 11:05 104 H 20 115/78 96 03/12/23 10:30 108 H 22 110/78 97 03/12/23 10:13 100 03/12/23 10:04 109 H 03/12/23 09:20 101 H 20 121/80 94 L 03/12/23 09:18 24 03/12/23 09:00 136/90 92 L 03/12/23 08:58 101 H 93 L 03/12/23 08:50 99.0 F 113 H 24 124/78 86 L Intake and Output 03/11/23 03/12/23 03/12/23 22:59 06:59 14:59 Other: Weight 72.575 kg Results CBC & Chem 7: 03/12/23 09:14 03/12/23 09:14 Labs: Abnormal Lab Results - Last 24 Hours (Table) 03/12/23 03/12/23 03/12/23 Range/Units 09:14 09:14 09:14 Neutrophils # 9.0 H (1.3-7.7) k/uL Lymphocytes # 0.9 L (1.0-4.8) k/uL PT 9.9 L (10.0-12.5) sec Carbon Dioxide 20 L (22-30) mmol/L BUN 21 H (9-20) mg/dL Glucose 126 H (74-99) mg/dL Plasma Lactic Acid Pierre (0.7-2.0) mmol/L 03/12/23 Range/Units 09:14 Neutrophils # (1.3-7.7) k/uL Lymphocytes # (1.0-4.8) k/uL PT (10.0-12.5) sec Carbon Dioxide (22-30) mmol/L BUN (9-20) mg/dL Glucose (74-99) mg/dL Plasma Lactic Acid Pierre 3.0 H* (0.7-2.0) mmol/L
[2023-03-12] MEDS: SODIUM CHLORIDE 0.9% 1,000 ML IV SCH (13:34)
[2023-03-12] MEDS: FAMOTIDINE 20 MG TAB PO SCH ×2 (13:34→20:33)
[2023-03-12] MEDS: HYDROcodone/APAP 7.5-325MG 1 EACH TAB PO SCH (17:39)
[2023-03-12] MEDS: DULoxetine HCL 30 MG CAPSULE.DR PO SCH (20:34)
[2023-03-12] MEDS ORDERED: BACLOFEN 10 MG TAB PO SCH (21:00)
[2023-03-12] MEDS ORDERED: methylPREDNISolone SOD SUCCI 40 MG/ML 1 ML VIAL IV SCH (21:00)
[2023-03-12] MEDS: BACLOFEN 10 MG TAB PO SCH (22:16)
[2023-03-13] MEDS ORDERED: IPRATROPIUM-ALBUTEROL 3 ML NEB INHALATION PRN (03:56)
--- NOTE | 2023-03-13 04:02 | P.CNPUL ---
History of Present Illness Consult date: 03/13/23 Requesting physician: Yair Syed Reason for consult: pneumonia Chief complaint: Shortness of breath and productive cough 5 days History of present illness: I am seeing this patient in new consultation today 03/13/2023 after he presented to the emergency room yesterday morning with symptoms of shortness of breath and productive cough with yellow sputum over the last 5 days. Patient is a 63-year-old white male with a limited past medical history. He does smoke 1 pack per day. Denies any history of COPD, however, utilizes albuterol inhaler on as-needed basis outpatient. His primary care provider is Dr. Joseph Granger out of [place]. Patient presented to emergency room yesterday morning with the above-mentioned symptoms. Denies any fevers, chest pain, hemoptysis. He does intermittently start sweating, but has not checked his temperature. He states that his grandchildren were sick earlier in the week with URI like symptoms. Denies recent travel. Patient is currently sitting up in bed, on 4 L/m nasal cannula, in no acute distress. Chest x-ray on arrival showed patchy b ilateral lung infiltrates consistent with atypical pneumonia. Negative for influenza, RSV, COVID-19. Procalcitonin level was elevated at 3.96. Patient has been started on empiric antibiotics for community acquired pneumonia including azithromycin and Rocephin. CBC on arrival is unremarkable. No significant leukocytosis. BMP on arrival showed a sodium 139, potassium 4.3, chloride 103, serum bicarb 20, BUN 21, creatinine 0.81, glucose 126. Normal saline is infusing at 75 mL per hour. Lactic acid level was 3 on arrival and is down to 1.7. Troponin less than 0.012. NT proBNP mildly elevated at 1220. Currently afebrile. Appears hemodynamically stable. Review of Systems REVIEW OF SYSTEMS: CONSTITUTIONAL: Denies any recent significant weight loss or weight gain. EYES: Denies change in vision. EARS, NOSE, MOUTH, THROAT: Denies headaches, denies sore throat. CARDIOVASCULAR: Denies chest pain, palpitations or syncopal episodes. RESPIRATORY: See HPI GASTROINTESTINAL: Denies change in appetite, abdominal pain, nausea and vomiting, or diarrhea GENITOURINARY: Denies hematuria, denies infections. MUSKULOSKELETAL: Denies pain, denies swelling. INTEGUMENTARY: Denies rash, denies eczema. NEUROLOGICAL: Denies recent memory loss, no recent seizure activity. PSYCHIATRIC: Denies anxiety, denies depression. HEMATOLOGIC/LYMPHATIC: Denies anemia, denies enlarged lymph node Past Medical History Past Medical History: COPD, Pneumonia Additional Past Medical History / Comment(s): back pain History of Any Multi-Drug Resistant Organisms: None Reported Past Surgical History: Back Surgery Additional Past Surgical History / Comment(s): neck fusion,rt eye surgery, rt hand surgery Past Anesthesia/Blood Transfusion Reactions: No Reported Reaction Past Psychological History: Depression Smoking Status: Current every day smoker Past Alcohol Use History: Occasional Past Drug Use History: Marijuana - Past Family History Mother History Unknown: Yes Family Medical History: Myocardial Infarction ([place]) Additional Family Medical History / Comment(s): from [place] Medications and Allergies Home Medications Medication Instructions Recorded Confirmed Type HYDROcodone/APAP 7.5-325MG [[place] 0.5 tab PO AC-BID 04/25/21 03/12/23 History 7.5-325] DULoxetine HCL [Cymbalta] 30 mg PO BID 04/15/22 03/12/23 History Baclofen [Lioresal] 10 mg PO TID PRN 01/13/23 03/12/23 History Budesonide-Formot 160-4.5 Mcg 2 puff INHALATION RT-BID PRN 03/12/23 03/12/23 History [Symbicort 160-4.5 Mcg Inhaler] Allergies Allergy/AdvReac Type Severity Reaction Status Date / Time potassium chloride Allergy Swelling Verified 03/12/23 11:08 [From Klor-Con] sacubitril [From Entresto] Allergy Unknown Verified 03/12/23 11:08 trazodone Allergy Rash/Hives Verified 03/12/23 11:08 valsartan [From Entresto] Allergy Unknown Verified 03/12/23 11:08 Physical Exam Vitals: Vital Signs Temp Pulse Resp BP Pulse Ox 03/13/23 02:15 72 16 102/77 94 L 03/13/23 00:00 74 16 96/66 93 L 03/12/23 22:17 73 18 132/94 93 L 03/12/23 19:52 97.7 F 81 20 115/88 93 L 03/12/23 14:10 97.7 F 78 20 115/87 97 03/12/23 13:01 87 20 116/90 90 L 03/12/23 12:18 109 H 24 105/77 95 03/12/23 11:05 104 H 20 115/78 96 03/12/23 10:30 108 H 22 110/78 97 03/12/23 10:13 100 03/12/23 10:04 109 H 03/12/23 09:20 101 H 20 121/80 94 L 03/12/23 09:18 24 03/12/23 09:00 136/90 92 L 03/12/23 08:58 101 H 93 L 03/12/23 08:50 99.0 F 113 H 24 124/78 86 L Intake and Output 03/12/23 03/12/23 03/13/23 14:59 22:59 06:59 Other: Weight 72.575 kg GENERAL EXAM: Alert, 63-year-old white male, comfortable in no apparent distress. HEAD: Normocephalic and atraumatic EYES: Normal reaction of pupils, equal size. NOSE: Clear with pink turbinates. THROAT: No erythema or exudates. NECK: No masses, no JVD. CHEST: No chest wall deformity. LUNGS: Equal air entry with coarse rhonchi and scattered expiratory wheezes heard throughout. No crackles or focal dullness. On 4 L/m nasal cannula. No conversational dyspnea or accessory muscle use.. CVS: S1 and S2 normal with no audible murmur, regular rhythm. No extra heart sounds ABDOMEN: No hepatosplenomegaly, active bowel sounds, no guarding or rigidity. SPINE: No scoliosis or deformity SKIN: No rashes CENTRAL NERVOUS SYSTEM: No focal deficits, tone is normal in all 4 extremities. EXTREMITIES: There is no peripheral edema, clubbing, or cyanosis. Peripheral pulses are intact. Results - Laboratory Findings CBC and BMP: 03/12/23 09:14 03/12/23 09:14 PT/INR, D-dimer PT 9.9 sec (10.0-12.5) L 03/12/23 09:14 INR 0.9 (<1.2) 03/12/23 09:14 Abnormal lab findings: Abnormal Labs 03/12/23 03/12/23 03/12/23 09:14 09:14 09:14 Neutrophils # 9.0 H Lymphocytes # 0.9 L PT 9.9 L Carbon Dioxide 20 L BUN 21 H Glucose 126 H Plasma Lactic Acid Pierre Procalcitonin 03/12/23 03/12/23 09:14 11:50 Neutrophils # Lymphocytes # PT Carbon Dioxide BUN Glucose Plasma Lactic Acid Pierre 3.0 H* Procalcitonin 3.96 H - Diagnostic Findings Chest x-ray: image reviewed Assessment and Plan Assessment: Acute hypoxemic respiratory failure, currently on 4 L/m nasal cannula, secondary to multifocal community-acquired pneumonia, Chest x-ray on arrival showed patc hy bilateral lung infiltrates consistent with atypical pneumonia. Negative for influenza, RSV, COVID-19. Metabolic anion gap acidosis, secondary to lactic acidosis, improved Suspected acute COPD exacerbation Chronic ongoing tobacco dependence Plan: Patient's medications, labs, chest x-ray reviewed Continue supplemental oxygen Continue medications for community acquired pneumonia Procalcitonin level elevated at 3.96 Negative for influenza, RSV, COVID-19 Blood and sputum cultures are pending Urine Legionella antigen ordered Patient was started on elevation of bronchodilators, Symbicort inhaler, and IV Solu-Medrol Smoking cessation counseling performed Nicotine replacement offered Lovenox for DVT prophylaxis and Pepcid for GI prophylaxis We will continue to follow I have personally seen and examined the patient, performed the documentation and the assessment and plan as written. Number of minutes spent on the visit:20 Time with Patient: Greater than 30
[2023-03-13] MEDS: HYDROcodone/APAP 7.5-325MG 1 EACH TAB PO SCH (06:31)
[2023-03-13] MEDS: SODIUM CHLORIDE 0.9% 1,000 ML IV SCH ×2 (06:31→18:12)
[2023-03-13] MEDS: methylPREDNISolone SOD SUCCI 125 MG/2 ML VIAL IV SCH ×4 (06:32→23:13)
[2023-03-13] MEDS: SYMBICORT 160-4.5 MCG INHALER INHALATION SCH ×2 (08:07→20:47)
[2023-03-13] MEDS: IPRATROPIUM-ALBUTEROL 3 ML NEB INHALATION SCH ×4 (08:07→20:48)
--- NOTE | 2023-03-13 08:15 | XR ---
EXAMINATION TYPE: XR chest 1V portable DATE OF EXAM: 03/13/2023 6:22 AM COMPARISON: Chest radiographs from 03/12/2023 TECHNIQUE: XR chest 1V portable Portable AP radiograph of the chest. CLINICAL INDICATION:Male, 63 years old with history of pneumonia; FINDINGS: Lungs/Pleura: No pleural effusion or pneumothorax. Increased focal patchy airspace opacities througho ut the lungs. Pulmonary vascularity: Unremarkable. Heart/mediastinum: Cardiomediastinal silhouette is unremarkable. Musculoskeletal: No acute osseous pathology. Cervical fusion hardware. IMPRESSION: Increased focal patchy airspace opacities throughout the lungs consistent with worsening pneumonia.
[2023-03-13] MEDS: FAMOTIDINE 20 MG TAB PO SCH ×2 (09:42→20:37)
[2023-03-13] MEDS: BACLOFEN 10 MG TAB PO SCH ×2 (09:42→20:37)
[2023-03-13] MEDS: DULoxetine HCL 30 MG CAPSULE.DR PO SCH ×2 (09:42→20:37)
[2023-03-13] MEDS: AZITHROMYCIN 500 MG TAB PO SCH (09:42)
[2023-03-13] MEDS: NICOTINE 21MG/24HR PATCH TRANSDERM SCH (09:42)
[2023-03-13] MEDS: ENOXAPARIN 40 MG/0.4 ML SYRINGE SQ SCH (09:43)
--- NOTE | 2023-03-13 10:06 | P.PN ---
Subjective 63-year-old male came in with compensative shortness of breath which has been going on for about 4 days, cough with yellow to greenish sputum production. Patient does smoke half a pack to a pack of cigarettes a day. Patient doesn't use any oxygen at home is requiring 4 L of oxygen here. Patient had a chest x- ray which showed infiltrate predominantly in the right lower lobes and middle lobes. Patient was given Rocephin and azithromycin. Patient has mildly elevated BNP of around 1000. Pro-calcitonin was ordered. 03/13/2023 Patient's lactic acid improved, pro-calcitonin was high. Urine Legionella antigen is still pending patient is being continued on antibiotics patient clinically clinically looks much better than yesterday. Patient still has significant wheezing on exam. Constitutional: Denied any fatigue denied any fever. Cardio vascular: denied any chest pain, palpitations Gastrointestinal denied any nausea vomiting Pulmonary: Does have shortness of breath cough Neurologic denied any new focal deficits All inpatient medications were reviewed and appropriate changes in these medications as dictated in the interval history and assessment and plan. PHYSICAL EXAMINATION: GENERAL: The patient is alert and oriented x3, not in any acute distress. Well developed, well nourished. HEENT: Pupils are round and equally reacting to light. EOMI. No scleral icterus. No conjunctival pallor. Normocephalic, atraumatic. No pharyngeal erythema. No thyromegaly. CARDIOVASCULAR: S1 and S2 present. No murmurs, rubs, or gallops. PULMONARY: Expiratory wheezing with bilateral rhonchi ABDOMEN: Soft, nontender, nondistended, normoactive bowel sounds. No palpable organomegaly. MUSCULOSKELETAL: No joint swelling or deformity. EXTREMITIES: No cyanosis, clubbing, or pedal edema. NEUROLOGICAL: Gross neurological examination did not reveal any focal deficits. SKIN: No rashes. Assessment and plan -Acute hypercapnic respiratory failure secondary to COPD exacerbation: Continue with systemic steroids, antibiotics patient is Improvement competitors today. Pro-calcitonin elevated, likely is improved urine Legionella antigen pending -Possible right middle lobe pneumonia continue with Rocephin and azithromycin -Nicotine use: Counseling was provided DVT prophylaxis: Lovenox GI prophylaxis Pepcid Objective - Vital Signs Vital signs: Vital Signs Temp 97.4 F L 03/13/23 09:34 Pulse 85 03/13/23 09:34 Resp 20 03/13/23 09:39 BP 123/93 03/13/23 09:34 Pulse Ox 94 L 03/13/23 09:34 FiO2 Intake & Output 03/12/23 03/13/23 03/13/23 18:59 06:59 18:59 Weight 72.575 kg - Labs CBC & Chem 7: 03/12/23 09:14 03/12/23 09:14 Labs: Abnormal Lab Results - Last 24 Hours (Table) 03/12/23 03/12/23 03/12/23 Range/Units 09:14 09:14 09:14 Neutrophils # 9.0 H (1.3-7.7) k/uL Lymphocytes # 0.9 L (1.0-4.8) k/uL PT 9.9 L (10.0-12.5) sec Carbon Dioxide 20 L (22-30) mmol/L BUN 21 H (9-20) mg/dL Glucose 126 H (74-99) mg/dL Plasma Lactic Acid Pierre (0.7-2.0) mmol/L Procalcitonin (0.02-0.09) ng/mL 03/12/23 03/12/23 Range/Units 09:14 11:50 Neutrophils # (1.3-7.7) k/uL Lymphocytes # (1.0-4.8) k/uL PT (10.0-12.5) sec Carbon Dioxide (22-30) mmol/L BUN (9-20) mg/dL Glucose (74-99) mg/dL Plasma Lactic Acid Pierre 3.0 H* (0.7-2.0) mmol/L Procalcitonin 3.96 H (0.02-0.09) ng/mL
[2023-03-13] MEDS: HYDROcodone/APAP 7.5-325MG 1 EACH TAB PO PRN ×2 (11:41→23:13)
[2023-03-14] MEDS: methylPREDNISolone SOD SUCCI 125 MG/2 ML VIAL IV SCH ×3 (06:02→17:53)
[2023-03-14] MEDS: SODIUM CHLORIDE 0.9% 1,000 ML IV SCH ×2 (06:03→21:08)
[2023-03-14] MEDS: DULoxetine HCL 30 MG CAPSULE.DR PO SCH ×2 (07:39→21:07)
[2023-03-14] MEDS: ENOXAPARIN 40 MG/0.4 ML SYRINGE SQ SCH (07:39)
[2023-03-14] MEDS: FAMOTIDINE 20 MG TAB PO SCH ×2 (07:39→21:06)
[2023-03-14] MEDS: BACLOFEN 10 MG TAB PO SCH ×2 (07:39→21:06)
[2023-03-14] MEDS: AZITHROMYCIN 500 MG TAB PO SCH (07:39)
[2023-03-14] MEDS: NICOTINE 21MG/24HR PATCH TRANSDERM SCH (07:39)
[2023-03-14] MEDS: HYDROcodone/APAP 7.5-325MG 1 EACH TAB PO PRN ×2 (07:41→17:54)
[2023-03-14] MEDS: SYMBICORT 160-4.5 MCG INHALER INHALATION SCH ×2 (09:04→22:01)
[2023-03-14] MEDS: IPRATROPIUM-ALBUTEROL 3 ML NEB INHALATION SCH ×4 (09:04→22:01)
--- NOTE | 2023-03-14 15:48 | P.PN ---
Subjective Progress Note Date: 03/14/23 I am seeing this patient in new consultation today 03/13/2023 after he presented to the emergency room yesterday morning with symptoms of shortness of breath and productive cough with yellow sputum over the last 5 days. Patient is a 63-year-old white male with a limited past medical history. He does smoke 1 pack per day. Denies any history of COPD, however, utilizes albuterol inhaler on as-needed basis outpatient. His primary care provider is Dr. Joseph Granger out of [place]. Patient presented to emergency room yesterday morning with the above-mentioned symptoms. Denies any fevers, chest pain, hemoptysis. He does intermittently start sweating, but has not checked his temperature. He states that his grandchildren were sick earlier in the week with URI like symptoms. Denies recent travel. Patient is currently sitting up in bed, on 4 L/m nasal cannula, in no acute distress. Chest x-ray on arrival showed patchy bilateral lung infiltrates consistent with atypical pneumonia. Negative for influenza, RSV, COVID-19. Procalcitonin level was elevated at 3.96. Patient has been started on empiric antibiotics for community acquired pneumonia including azithromycin and Rocephin. CBC on arrival is unremarkable. No significant leukocytosis. BMP on arrival showed a sodium 139, potassium 4.3, chloride 103, serum bicarb 20, BUN 21, creatinine 0.81, glucose 126. Normal saline is infusing at 75 mL per hour. Lactic acid level was 3 on arrival and is down to 1.7. Troponin less than 0.012. NT proBNP mildly elevated at 1220. Currently afebrile. Appears hemodynamically stable. The patient is seen today 03/14/2023 in follow-up on the regular medical floor. He is currently sitting up at the bedside. Awake and alert in no acute distress. He is maintaining O2 saturations in the 90s on 3 L/m per nasal cannula. He has normal saline at 75 ML's per hour. His pro calcitonin was 3. 96. Chest x-ray shows bilateral infiltrates right greater than left. Legionella screen was negative. Blood cultures are negative. He is continued on ceftriaxone and completed azithromycin. He remains on DuoNeb inhalations, Symbicort, Solu-Medrol. Lovenox for DVT prophylaxis. NicoDerm patch in place. Objective - Vital Signs Vital signs: Vital Signs Temp 97.5 F L 03/14/23 13:58 Pulse 90 03/14/23 13:58 Resp 17 03/14/23 13:58 BP 167/89 03/14/23 13:58 Pulse Ox 96 03/14/23 13:58 FiO2 Intake & Output 03/13/23 03/14/23 03/14/23 18:59 06:59 18:59 Weight 72.575 kg Other: # Voids 1 2 - Exam GENERAL EXAM: Alert, 63-year-old male, and 3 L nasal cannula, comfortable in no apparent distress. HEAD: Normocephalic and atraumatic EYES: Normal reaction of pupils, equal size. NOSE: Clear with pink turbinates. THROAT: No erythema or exudates. NECK: No masses, no JVD. CHEST: No chest wall deformity. LUNGS: Equal air entry with coarse rhonchi and scattered expiratory wheezes heard throughout. CVS: S1 and S2 normal with no audible murmur, regular rhythm. No extra heart sounds ABDOMEN: No hepatosplenomegaly, active bowel sounds, no guarding or rigidity. SPINE: No scoliosis or deformity SKIN: No rashes CENTRAL NERVOUS SYSTEM: No focal deficits, tone is normal in all 4 extremities. EXTREMITIES: There is no peripheral edema, clubbing, or cyanosis. Peripheral pulses are intact. - Labs CBC & Chem 7: 03/12/23 09:14 03/12/23 09:14 Labs: Microbiology - Last 24 Hours (Table) 03/12/23 12:10 Blood Culture - Preliminary Blood 03/12/23 11:55 Blood Culture - Preliminary Blood Assessment and Plan Assessment: Acute hypoxemic respiratory failure, currently on 3 L/m nasal cannula, secondary to multifocal community-acquired pneumonia, pro-calcitonin 3.96. Chest x-ray on arrival showed patchy bilateral lung infiltrates consistent with atypical pneumonia. Negative for influenza, RSV, COVID-19. Legionella screen negative. Metabolic anion gap acidosis, secondary to lactic acidosis, improved Suspected acute COPD exacerbation Chronic ongoing tobacco dependence Plan: The patient was seen and evaluated Medications reviewed Currently on 3 L nasal cannula Continued on ceftriaxone, completed azithromycin Educated regarding the importance of complete smoking cessation NicoDerm had been offered Titrate down the FiO2 as tolerated Increase his activity as tolerated We will continue to follow I have personally seen and examined the patient, performed the documentation and the assessment and plan as written. Number of minutes spent on the visit: 10.
[2023-03-14] MEDS ORDERED: ALPRAZolam 0.25 MG TAB PO PRN (20:31)
[2023-03-15] MEDS: methylPREDNISolone SOD SUCCI 125 MG/2 ML VIAL IV SCH ×2 (06:18→06:20)
--- NOTE | 2023-03-15 06:28 | P.PN ---
Subjective Progress Note Date: 03/14/23 63-year-old male came in with compensative shortness of breath which has been going on for about 4 days, cough with yellow to greenish sputum production. Patient does smoke half a pack to a pack of cigarettes a day. Patient doesn't use any oxygen at home is requiring 4 L of oxygen here. Patient had a chest x- ray which showed infiltrate predominantly in the right lower lobes and middle lobes. Patient was given Rocephin and azithromycin. Patient has mildly elevated BNP of around 1000. Pro-calcitonin was ordered. 03/13/2023 Patient's lactic acid improved, pro-calcitonin was high. Urine Legionella antigen is still pending patient is being continued on antibiotics patient clinically clinically looks much better than yesterday. Patient still has significant wheezing on exam. 03/14/2023 Patient is seen and evaluated in follow-up today with pulmonary following maintained on IV antibiotics along with IV steroids and DuoNeb treatments. Patient continues on 3-4 L of oxygen via nasal cannula will likely require oxygen on discharge to manage COPD. Will follow up with home O2 eval closer to discharge. Legionella was negative. Pro-calcitonin was elevated and is being treated for pneumonia as well as COPD exacerbation. Encouraged increased activity as tolerated and will follow-up with the patient in a.m. Constitutional: Denied any fatigue denied any fever. Cardio vascular: denied any chest pain, palpitations Gastrointestinal denied any nausea vomiting Pulmonary: Reports continued shortness of breath and worse with exertion, continued cough with some phlegm production Neurologic denied any new focal deficits All inpatient medications were reviewed and appropriate changes in these medications as dictated in the interval history and assessment and plan. PHYSICAL EXAMINATION: GENERAL: The patient is alert and oriented x3, not in any acute distress. Well developed, well nourished. Appears older than stated age HEENT: Pupils are round and equally reacting to light. EOMI. No scleral icterus. No conjunctival pallor. Normocephalic, atraumatic. No pharyngeal erythema. No thyromegaly. CARDIOVASCULAR: S1 and S2 present. No murmurs, rubs, or gallops. PULMONARY: Diminished breath sounds bilaterally with some scattered rhonchi with significant improvement in wheezing ABDOMEN: Soft, nontender, nondistended, normoactive bowel sounds. No palpable organomegaly. MUSCULOSKELETAL: No joint swelling or deformity. EXTREMITIES: No cyanosis, clubbing, or pedal edema. NEUROLOGICAL: Gross neurological examination did not reveal any focal deficits. SKIN: No rashes. Assessment: -Acute hypercapnic respiratory failure secondary to COPD exacerbation -Possible right middle lobe pneumonia with elevated pro-calcitonin -Nicotine use: Counseling was provided -DVT prophylaxis: Lovenox -GI prophylaxis Pepcid -Full code Plan: Patient is currently continued on antibiotics along with IV steroids and DuoNeb's with pulmonary following as well Pro-calcitonin was elevated and continues with hypoxic respiratory failure currently on 3 L secondary to community-acquired pneumonia as well as COPD exacerbation Discussed extensively on complete smoking cessation as well as exposure to Encouraged to increase activity as tolerated Pulmonary following and will discuss further on discharge planning Will perform home O2 eval prior to discharge this patient will likely require oxygen via nasal cannula at 2 L to manage COPD Will discuss with case management and discharge planning needs Possible discharge in the next 24-48 hours The impression and plan of care has been dictated by Isabelle Fishman, Nurse Practitioner as directed. Dr. Jaz MD I have performed a history and examination and MDM of this patient, discussed the same with the dictator, and agree with the dictator's assessment and plan as written ,documented as a scribe. Based on total visit time, I have performed more than 50% of the visit. Objective - Vital Signs Vital signs: Vital Signs Temp 97.5 F L 03/14/23 07:52 Pulse 72 03/14/23 09:06 Resp 20 03/14/23 07:52 BP 142/74 03/14/23 07:52 Pulse Ox 96 03/14/23 07:52 FiO2 Intake & Output 03/13/23 03/14/23 03/14/23 18:59 06:59 18:59 Weight 72.575 kg Other: # Voids 1 2 - Labs CBC & Chem 7: 03/12/23 09:14 03/12/23 09:14 Labs: Microbiology - Last 24 Hours (Table) 03/12/23 12:10 Blood Culture - Preliminary Blood 03/12/23 11:55 Blood Culture - Preliminary Blood
[2023-03-15] MEDS: HYDROcodone/APAP 7.5-325MG 1 EACH TAB PO PRN ×2 (09:03→16:43)
[2023-03-15] MEDS: SODIUM CHLORIDE 0.9% 1,000 ML IV SCH (09:04)
[2023-03-15] MEDS: SYMBICORT 160-4.5 MCG INHALER INHALATION SCH (09:18)
[2023-03-15] MEDS: IPRATROPIUM-ALBUTEROL 3 ML NEB INHALATION SCH ×3 (09:18→16:37)
[2023-03-15] MEDS: DULoxetine HCL 30 MG CAPSULE.DR PO SCH (09:19)
[2023-03-15] MEDS: NICOTINE 21MG/24HR PATCH TRANSDERM SCH (09:19)
[2023-03-15] MEDS: FAMOTIDINE 20 MG TAB PO SCH (09:19)
[2023-03-15] MEDS: ENOXAPARIN 40 MG/0.4 ML SYRINGE SQ SCH (09:19)
[2023-03-15] MEDS: BACLOFEN 10 MG TAB PO SCH (09:19)
[2023-03-15] MEDS ORDERED: FLUCONAZOLE 100 MG TAB PO SCH (10:30)
--- NOTE | 2023-03-15 12:54 | P.PN ---
Subjective Progress Note Date: 03/15/23 I am seeing this patient in new consultation today 03/13/2023 after he presented to the emergency room yesterday morning with symptoms of shortness of breath and productive cough with yellow sputum over the last 5 days. Patient is a 63-year-old white male with a limited past medical history. He does smoke 1 pack per day. Denies any history of COPD, however, utilizes albuterol inhaler on as-needed basis outpatient. His primary care provider is Dr. Joseph Granger out of [place]. Patient presented to emergency room yesterday morning with the above-mentioned symptoms. Denies any fevers, chest pain, hemoptysis. He does intermittently start sweating, but has not checked his temperature. He states that his grandchildren were sick earlier in the week with URI like symptoms. Denies recent travel. Patient is currently sitting up in bed, on 4 L/m nasal cannula, in no acute distress. Chest x-ray on arrival showed patchy bilateral lung infiltrates consistent with atypical pneumonia. Negative for influenza, RSV, COVID-19. Procalcitonin level was elevated at 3.96. Patient has been started on empiric antibiotics for community acquired pneumonia including azithromycin and Rocephin. CBC on arrival is unremarkable. No significant leukocytosis. BMP on arrival showed a sodium 139, potassium 4.3, chloride 103, serum bicarb 20, BUN 21, creatinine 0.81, glucose 126. Normal saline is infusing at 75 mL per hour. Lactic acid level was 3 on arrival and is down to 1.7. Troponin less than 0.012. NT proBNP mildly elevated at 1220. Currently afebrile. Appears hemodynamically stable. The patient is seen today 03/14/2023 in follow-up on the regular medical floor. He is currently sitting up at the bedside. Awake and alert in no acute distress. He is maintaining O2 saturations in the 90s on 3 L/m per nasal cannula. He has normal saline at 75 ML's per hour. His pro calcitonin was 3. 96. Chest x-ray shows bilateral infiltrates right greater than left. Legionella screen was negative. Blood cultures are negative. He is continued on ceftriaxone and completed azithromycin. He remains on DuoNeb inhalations, Symbicort, Solu-Medrol. Lovenox for DVT prophylaxis. NicoDerm patch in place. The patient is seen today 03/15/2023 in follow-up on the regular medical floor. He is sitting up at the bedside. Awake and alert in no acute distress. He is feeling quite a bit better today. Maintaining O2 saturations in the 90s on 2 L/m per nasal cannula. Blood culture reveals no growth. Sputum culture pending. He is continued on DuoNeb inhalations, Symbicort, Solu-Medrol. Remain s on antibiotics in the form of ceftriaxone. Normal saline at 75 ML's per hour. Objective - Vital Signs Vital signs: Vital Signs Temp 98.7 F 03/15/23 07:18 Pulse 72 03/15/23 12:41 Resp 20 03/15/23 07:18 BP 154/76 03/15/23 07:18 Pulse Ox 98 03/15/23 10:35 FiO2 Intake & Output 03/14/23 03/15/23 03/15/23 18:59 06:59 18:59 Other: # Voids 4 2 # Bowel Movements 1 - Exam GENERAL EXAM: Alert, 63-year-old male, on 3 L nasal cannula, in no apparent distress. HEAD: Normocephalic and atraumatic EYES: Normal reaction of pupils, equal size. NOSE: Clear with pink turbinates. THROAT: No erythema or exudates. NECK: No masses, no JVD. CHEST: No chest wall deformity. LUNGS: Equal air entry with coarse rhonchi and scattered expiratory wheezes heard throughout. CVS: S1 and S2 normal with no audible murmur, regular rhythm. No extra heart sounds ABDOMEN: No hepatosplenomegaly, active bowel sounds, no guarding or rigidity. SPINE: No scoliosis or deformity SKIN: No rashes CENTRAL NERVOUS SYSTEM: No focal deficits, tone is normal in all 4 extremities. EXTREMITIES: There is no peripheral edema, clubbing, or cyanosis. Peripheral pulses are intact. - Labs CBC & Chem 7: 03/12/23 09:14 03/12/23 09:14 Labs: Microbiology - Last 24 Hours (Table) 03/14/23 10:37 Gram Stain - Preliminary Sputum 03/12/23 12:10 Blood Culture - Preliminary Blood 03/12/23 11:55 Blood Culture - Preliminary Blood Assessment and Plan Assessment: Acute hypoxemic respiratory failure, currently on 3 L/m nasal cannula, secondary to multifocal community-acquired pneumonia, pro-calcitonin 3.96. Chest x-ray on arrival showed patchy bilateral lung infiltrates consistent with atypical pneumonia. Negative for influenza, RSV, COVID-19. Legionella screen negative. Metabolic anion gap acidosis, secondary to lactic acidosis, improved Suspected acute COPD exacerbation Chronic ongoing tobacco dependence Plan: The patient was seen and evaluated Medications reviewed Currently on 3 L nasal cannula Evaluate for possible home oxygen Discontinue ceftriaxone, add doxycycline 4 more days Discontinue Solu-Medrol, initiated prednisone taper starting at 30 mg daily for 4 days Educated regarding the importance of complete smoking cessation NicoDerm patch in place Follow up in our office one week post discharge I have personally seen and examined the patient, performed the documentation and the assessment and plan as written. Number of minutes spent on the visit: 10.
[2023-03-15 16:57] VITALS: BP 134/67; PULSE 64; RESP 17; TEMP 97.3
[2023-03-15] MEDS ORDERED: DOXYCYCLINE 100 MG CAP PO SCH (21:00)
[2023-03-16] MEDS ORDERED: predniSONE 10 MG TAB PO SCH (09:00)
--- NOTE | 2023-03-17 07:50 | P.DS ---
Providers Date of admission: 03/12/23 11:47 Expected date of discharge: 03/15/23 Attending physician: Claire Sebastian Consults: 03/12/23 11:47 Consult Physician Routine Consulting Provider: Rui Norwood Reason/Comments: respiratory failure Do you want consulting provider notified?: Yes Primary care physician: Joseph Granger MD Hospital Course: Final diagnosis -Acute hypercapnic respiratory failure secondary to COPD exacerbation -right middle lobe pneumonia with elevated pro-calcitonin, community-acquired -Nicotine use: Counseling was provided -DVT prophylaxis -GI prophylaxis -Full code Discharge disposition Patient is being discharged in a stable condition with guarded prognosis to home with home oxygen secondary to COPD. Patient will follow-up with Dr. Granger in the outpatient setting upon discharge. Patient is to continue with oral antibiotics and 2 L of oxygen via nasal cannula and close outpatient follow-up with pulmonary as scheduled. Total time taken is greater than 35 minutes. Hospital course This is a 63-year-old male who was recently admitted with increasing shortness of breath hypoxic respiratory failure with concerns of COPD exacerbation as well as community-acquired pneumonia. Pro-calcitonin was elevated and patient showed clinical improvement on steroids along with antibiotics. Patient will continue short course along with prednisone taper and close outpatient follow-up with pulmonary. Patient has been cleared for discharge today. Please refer to pulmonary notes for further HPI. Extensive closely list complete smoking cessation as well as tobacco exposure as patient smokes as well. Currently no reports of chest pain, shortness of breath, or palpitations. Patient is afebrile. No reports of nausea or vomiting and patient is tolerating diet. Patient will be discharged home today. Physical exam: Gen: This is a 63-year-old male is awake, alert and oriented 3, thin built, well-developed HEENT: Head is atraumatic, normocephalic. Pupils equal, round. Sclerae is anicteric. NECK: Supple. No JVD. No lymphadenopathy. No thyromegaly. LUNGS: Diminished breath sounds bilaterally with some faint expiratory wheezing on the lower bases noted and some coarse rhonchi noted. No intercostal retractions. HEART: Regular rate and rhythm. No murmur. ABDOMEN: Soft. Bowel sounds are present. No masses. No tenderness. EXTREMITIES: No pedal edema. No calf tenderness. NEUROLOGICAL: Patient is awake, alert and oriented x3. Cranial nerves 2 through 12 are grossly intact. Please refer to medication reconciliation sheet for a list of medications. The impression and plan of care has been dictated by Isabelle Fishman, Nurse Practitioner as directed. Dr. Jaz MD I have performed a history and examination and MDM of this patient, discussed the same with the dictator, and agree with the dictator's assessment and plan as written ,documented as a scribe. Based on total visit time, I have performed more than 50% of the visit. Patient Condition at Discharge: Fair Plan - Discharge Summary Discharge Rx Participant: Yes New Discharge Prescriptions: New Fluconazole [Diflucan] 100 mg PO DAILY 7 Days #7 tab Ipratropium-Albuterol Nebulize [Duoneb 0.5 mg-3 mg/3 ml Soln] 3 ml INHALATION RT-QID #100 each Ipratropium-Albuterol Nebulize [Duoneb 0.5 mg-3 mg/3 ml Soln] 3 ml INHALATION RT-Q2H PRN each PRN Reason: Shortness Of Breath Or Wheezing Nicotine 21Mg/24Hr Patch [Habitrol] 1 patch TRANSDERM DAILY #30 patch HYDROcodone/APAP 7.5-325MG [Kula 7.5-325] 1 each PO Q6HR PRN #12 tab PRN Reason: Pain predniSONE 10 mg PO DIRECTED #30 tab Doxycycline [Vibramycin] 100 mg PO BID 10 Days #20 cap Continue DULoxetine HCL [Cymbalta] 30 mg PO BID Baclofen [Lioresal] 10 mg PO TID PRN PRN Reason: Muscle Spasm Budesonide-Formot 160-4.5 Mcg [Symbicort 160-4.5 Mcg Inhaler] 2 puff INHALATION RT-BID PRN PRN Reason: Shortness Of Breath Discontinued HYDROcodone/APAP 7.5-325MG [Kula 7.5-325] 0.5 tab PO AC-BID Discharge Medication List DULoxetine HCL [Cymbalta] 30 mg PO BID 04/15/22 [History] Baclofen [Lioresal] 10 mg PO TID PRN 01/13/23 [History] Budesonide-Formot 160-4.5 Mcg [Symbicort 160-4.5 Mcg Inhaler] 2 puff INHALATION RT-BID PRN 03/12/23 [History] Doxycycline [Vibramycin] 100 mg PO BID 10 Days #20 cap 03/15/23 [Rx] Fluconazole [Diflucan] 100 mg PO DAILY 7 Days #7 tab 03/15/23 [Rx] HYDROcodone/APAP 7.5-325MG [Kula 7.5-325] 1 each PO Q6HR PRN #12 tab 03/15/23 [Rx] Ipratropium-Albuterol Nebulize [Duoneb 0.5 mg-3 mg/3 ml Soln] 3 ml INHALATION RT-Q2H PRN each 03/15/23 [Rx] Ipratropium-Albuterol Nebulize [Duoneb 0.5 mg-3 mg/3 ml Soln] 3 ml INHALATION RT-QID #100 each 03/15/23 [Rx] Nicotine 21Mg/24Hr Patch [Habitrol] 1 patch TRANSDERM DAILY #30 patch 03/15/23 [Rx] predniSONE 10 mg PO DIRECTED #30 tab 03/15/23 [Rx] Follow up Appointment(s)/Referral(s): [facility] [NON-STAFF] - As Needed (oxygen) Joseph Granger MD [Primary Care Provider] - 1-2 days (Patient already made appointment for 03/27/23) Rui Norwood DO [Doctor of Osteopathic Medicine] - 1 Week (office closed at time of discharge. Please call office next business day to make your follow-up appt.) Patient Instructions/Handouts: Pneumonia (DC) Activity/Diet/Wound Care/Special Instructions: Activity Limited until follow-up Follow-up with primary care provider and discharge Continue with inhalers and breathing treatments along with antibiotics and prednisone taper until finished Continue to avoid tobacco use and exposure Follow-up pulmonary outpatient in 1-2 weeks Discharge Disposition: HOME SELF-CARE
== END 2023-03-15 18:27 | disposition home or self-care (01) | DRG 139 ==
LOC: EC 08:46 → 4SSUR 11:47
PROVIDERS: ADMIT Internal Medicine; ATTEND Internal Medicine
DX: J18.9 Pneumonia, unspecified organism (principal); J44.1 Chronic obstructive pulmonary disease with (acute) exacerbation; J96.02 Acute respiratory failure with hypercapnia; J44.0 Chronic obstructive pulmonary disease with (acute) lower respiratory infection; J96.01 Acute respiratory failure with hypoxia; Z20.822 Contact with and (suspected) exposure to COVID-19; E87.20 Acidosis, unspecified; F32.A Depression, unspecified; F17.210 Nicotine dependence, cigarettes, uncomplicated; Z79.51 Long term (current) use of inhaled steroids; Z98.1 Arthrodesis status; Z71.6 Tobacco abuse counseling; Z79.899 Other long term (current) drug therapy; Z82.49 Family history of ischemic heart disease and other diseases of the circulatory system; Z88.8 Allergy status to other drugs, medicaments and biological substances
CPT/HCPCS: 36415; 71045; 71046; 80053; 83605; 83735; 83880; 84145; 84484; 85025; 85610; 85730; 87040; 87070; 87205; 87449; 87636; 93005; 94640; 94760; 96361; 96365; 96366; 96367; 96372; 96375; 96376; 99285

== ENCOUNTER 2023-05-10 03:50 | Inpatient (IN) | payer OTHER ==
[2023-05-10] MEDS ORDERED: ALBUTEROL NEBULIZED 2.5 MG/3 ML INHALATION STA ×2 (04:02→05:07)
[2023-05-10] MEDS ORDERED: IPRATROPIUM 0.5 MG/2.5 ML NEBU INHALATION STA (04:02)
[2023-05-10] MEDS ORDERED: methylPREDNISolone SOD SUCCI 125 MG/2 ML VIAL IV STA (04:02)
[2023-05-10] MEDS ORDERED: AZITHROMYCIN 500 MG in SODIUM CHLORIDE 0.9% 250 ML IVPB STA (04:03)
--- NOTE | 2023-05-10 04:05 | ED ---
General Adult HPI - General Chief complaint: Shortness of Breath Stated complaint: SOB Time Seen by Provider: 05/10/23 03:56 Source: patient, RN notes reviewed, old records reviewed Mode of arrival: wheelchair Limitations: no limitations - History of Present Illness Initial comments: 63-year-old male presents with increased cough and dyspnea. Patient is in respiratory distress and history is somewhat limited. He denies central chest pain. He denies measured fever. He apparently has oxygen at home but does not use it regularly. Over the past 24 hours she's had worsening cough and dyspnea. He states he quit smoking several days prior. - Related Data Home Medications Medication Instructions Recorded Confirmed DULoxetine HCL [Cymbalta] 30 mg PO BID 04/15/22 03/12/23 Baclofen [Lioresal] 10 mg PO TID PRN 01/13/23 03/12/23 Budesonide-Formot 160-4.5 Mcg 2 puff INHALATION RT-BID PRN 03/12/23 03/12/23 [Symbicort 160-4.5 Mcg Inhaler] Previous Rx's Medication Instructions Recorded Doxycycline [Vibramycin] 100 mg PO BID 10 Days #20 cap 03/15/23 Fluconazole [Diflucan] 100 mg PO DAILY 7 Days #7 tab 03/15/23 HYDROcodone/APAP 7.5-325MG [Verdi 1 each PO Q6HR PRN #12 tab 03/15/23 7.5-325] Ipratropium-Albuterol Nebulize 3 ml INHALATION RT-Q2H PRN each 03/15/23 [Duoneb 0.5 mg-3 mg/3 ml Soln] Ipratropium-Albuterol Nebulize 3 ml INHALATION RT-QID #100 each 03/15/23 [Duoneb 0.5 mg-3 mg/3 ml Soln] Nicotine 21Mg/24Hr Patch [Habitrol] 1 patch TRANSDERM DAILY #30 patch 03/15/23 predniSONE 10 mg PO DIRECTED #30 tab 03/15/23 Allergies Allergy/AdvReac Type Severity Reaction Status Date / Time potassium chloride Allergy Swelling Verified 03/12/23 11:08 [From Klor-Con] sacubitril [From Entresto] Allergy Unknown Verified 03/12/23 11:08 trazodone Allergy Rash/Hives Verified 03/12/23 11:08 valsartan [From Entresto] Allergy Unknown Verified 03/12/23 11:08 Review of Systems ROS Statement: Those systems with pertinent positive or pertinent negative responses have been documented in the HPI. ROS Other: All systems not noted in ROS Statement are negative. Past Medical History Past Medical History: COPD, Pneumonia Additional Past Medical History / Comment(s): back pain History of Any Multi-Drug Resistant Organisms: None Reported Past Surgical History: Back Surgery Additional Past Surgical History / Comment(s): neck fusion,rt eye surgery, rt hand surgery Past Anesthesia/Blood Transfusion Reactions: No Reported Reaction Past Psychological History: Depression Smoking Status: Current every day smoker Past Alcohol Use History: Occasional Past Drug Use History: Marijuana - Past Family History Mother History Unknown: Yes Family Medical History: Myocardial Infarction (ME) Additional Family Medical History / Comment(s): from [place] General Exam Limitations: no limitations General appearance: alert, in distress Head exam: Present: atraumatic, normocephalic Neck exam: Present: normal inspection. Absent: tenderness, meningismus Respiratory exam: Present: respiratory distress, wheezes, accessory muscle use, decreased breath sounds, prolonged expiratory Cardiovascular Exam: Present: normal rhythm, tachycardia GI/Abdominal exam: Present: soft. Absent: distended, tenderness, guarding Neurological exam: Present: alert, oriented X3 Psychiatric exam: Present: anxious Skin exam: Present: diaphoretic Course Vital Signs 05/10/23 05/10/23 05/10/23 03:51 04:10 04:26 Temperature 97.4 F L Pulse Rate 102 H 93 Respiratory 28 H 30 H Rate Blood Pressure 145/82 O2 Sat by Pulse 98 Oximetry Fraction of Inspired Oxygen (FIO2) 05/10/23 05/10/23 05/10/23 04:31 04:47 04:58 Temperature Pulse Rate 99 105 H 104 H Respiratory Rate Blood Pressure O2 Sat by Pulse Oximetry Fraction of Inspired Oxygen (FIO2) 05/10/23 05/10/23 05:17 05:35 Temperature Pulse Rate 100 106 H Respiratory Rate Blood Pressure O2 Sat by Pulse Oximetry Fraction of 30 Inspired Oxygen (FIO2) Medical Decision Making - Medical Decision Making Was pt. sent in by a medical professional or institution (, PA, DRUPAL PHP DEVELOPER, urgent care, hospital, or custodial...) When possible be specific @ -No Did you speak to anyone other than the patient for history (EMS, parent, family, police, friend...)? What history was obtained from this source @ -No Did you review nursing and triage notes (agree or disagree)? Why? @ -I reviewed and agree with nursing and triage notes Were old charts reviewed (outside hosp., previous admission, EMS record, old EKG, old radiological studies, urgent care reports/EKG's, custodial records)? Report findings @ -No old charts were reviewed Differential Diagnosis (chest pain, altered mental status, abdominal pain women, abdominal pain men, vaginal bleeding, weakness, fever, dyspnea, syncope, headache, dizziness, GI bleed, back pain, seizure, CVA, palpatations, mental health, musculoskeletal)? @ Differential Dyspnea: Coronary syndrome, arrhythmia, tamponade, asthma, COPD, pulmonary embolism, pneumonia, pneumothorax, pulmonary effusion, anaphylaxis, diabetic ketoacidosis, flailed chest, pulmonary contusion, diaphragmatic rupture, anemia, neuromuscular, this is not meant to be an all-inclusive list. EKG interpreted by me (3pts min.). @ Sinus rhythm rate of 91, MN interval 132, QRS duration 84, QTC 414, no ST segment elevation X-rays interpreted by me (1pt min.). @ -Chest x-ray emphysema, no focal pneumonia, no pneumothorax CT interpreted by me (1pt min.). @ -None done U/S interpreted by me (1pt. min.). @ -None done What testing was considered but not performed or refused? (CT, X-rays, U/S, labs)? Why? @ -None What meds were considered but not given or refused? Why? @ -None Did you discuss the management of the patient with other professionals (professionals i.e. , PA, DRUPAL PHP DEVELOPER, lab, RT, psych nurse, social media job titles, siderographer, teacher, community service patrol officer, special education case manager)? Give summary @ -EMH Was smoking cessation discussed for >3mins.? @ -No Was critical care preformed (if so, how long)? @ -yes, 35 min Were there social determinants of health that impacted care today? How? (Homelessness, low income, unemployed, alcoholism, drug addiction, transportation, low edu. Level, literacy, decrease access to med. care, detention, rehab)? @ -No Was there de-escalation of care discussed even if they declined (Discuss DNR or withdrawal of care, Hospice)? DNR status @ -No What co-morbidities impacted this encounter? (DM, HTN, Smoking, COPD, CAD, Cancer, CVA, ARF, Chemo, Hep., AIDS, mental health diagnosis, sleep apnea, morbid obesity)? @ -[COPD Was patient admitted / discharged? Hospital course, mention meds given and route, prescriptions, significant lab abnormalities, going to OR and other pertinent info. @ -[63-year-old male presenting with increased cough and dyspnea. Patient is in respiratory distress upon arrival, hypoxic and tachypneic. BiPAP is trialed in the emergency department but the patient cannot tolerate BiPAP. He is given abmy-pr-exee albuterol and Atrovent. Started on steroids and IV antibiotics. Patient has a elevated lactic acid which I suspect is from hypoxia this level will be repeated after improvement in the respiratory status and IV fluids have been administered. Undiagnosed new problem with uncertain prognosis? @ -No Drug Therapy requiring intensive monitoring for toxicity (Heparin, Nitro, Insulin, Cardizem)? @ -No Were any procedures done? @ -No Diagnosis/symptom? @ -[COPD exacerbation Acute, or Chronic, or Acute on Chronic? @ -Acute Uncomplicated (without systemic symptoms) or Complicated (systemic symptoms)? @ -default Side effects of treatment? @ -No Exacerbation, Progression, or Severe Exacerbation? @ -No Poses a threat to life or bodily function? How? (Chest pain, [place], [place], pneumonia, PE, COPD, DKA, ARF, appy, cholecystitis, CVA, Diverticulitis, Homicidal, Suicidal, threat to staff... and all critical care pts) @ -Yes, COPD - Lab Data Result diagrams: 05/10/23 04:16 05/10/23 04:16 Lab Results 05/10/23 05/10/23 05/10/23 Range/Units 04:16 04:16 04:16 WBC 13.5 H (3.8-10.6) k/uL RBC 4.37 (4.30-5.90) m/uL Hgb 13.1 (13.0-17.5) gm/dL Hct 39.8 (39.0-53.0) % MCV 91.1 (80.0-100.0) fL MCH 30.0 (25.0-35.0) pg MCHC 32.9 (31.0-37.0) g/dL RDW 13.9 (11.5-15.5) % Plt Count 267 (150-450) k/uL MPV 8.8 Neutrophils % 92 % Lymphocytes % 3 % Monocytes % 4 % Eosinophils % 0 % Basophils % 0 % Neutrophils # 12.3 H (1.3-7.7) k/uL Lymphocytes # 0.5 L (1.0-4.8) k/uL Monocytes # 0.5 (0-1.0) k/uL Eosinophils # 0.0 (0-0.7) k/uL Basophils # 0.0 (0-0.2) k/uL PT 9.9 L (10.0-12.5) sec INR 0.9 (<1.2) APTT 27.5 (22.0-30.0) sec Sodium 140 (137-145) mmol/L Potassium 3.3 L (3.5-5.1) mmol/L Chloride 103 (98-107) mmol/L Carbon Dioxide 19 L (22-30) mmol/L Anion Gap 18 mmol/L BUN 13 (9-20) mg/dL Creatinine 0.75 (0.66-1.25) mg/dL Est GFR (CKD-EPI)AfAm >90 (>60 ml/min/1.73 sqM) Est GFR (CKD-EPI)NonAf >90 (>60 ml/min/1.73 sqM) Glucose 118 H (74-99) mg/dL Plasma Lactic Acid Pierre (0.7-2.0) mmol/L Calcium 9.4 (8.4-10.2) mg/dL Magnesium 1.8 (1.6-2.3) mg/dL Total Bilirubin 0.5 (0.2-1.3) mg/dL AST 20 (17-59) U/L ALT 18 (4-49) U/L Alkaline Phosphatase 93 (38-126) U/L Total Protein 7.0 (6.3-8.2) g/dL Albumin 4.5 (3.5-5.0) g/dL 05/10/23 Range/Units 04:16 WBC (3.8-10.6) k/uL RBC (4.30-5.90) m/uL Hgb (13.0-17.5) gm/dL Hct (39.0-53.0) % MCV (80.0-100.0) fL MCH (25.0-35.0) pg MCHC (31.0-37.0) g/dL RDW (11.5-15.5) % Plt Count (150-450) k/uL MPV Neutrophils % % Lymphocytes % % Monocytes % % Eosinophils % % Basophils % % Neutrophils # (1.3-7.7) k/uL Lymphocytes # (1.0-4.8) k/uL Monocytes # (0-1.0) k/uL Eosinophils # (0-0.7) k/uL Basophils # (0-0.2) k/uL PT (10.0-12.5) sec INR (<1.2) APTT (22.0-30.0) sec Sodium (137-145) mmol/L Potassium (3.5-5.1) mmol/L Chloride (98-107) mmol/L Carbon Dioxide (22-30) mmol/L Anion Gap mmol/L BUN (9-20) mg/dL Creatinine (0.66-1.25) mg/dL Est GFR (CKD-EPI)AfAm (>60 ml/min/1.73 sqM) Est GFR (CKD-EPI)NonAf (>60 ml/min/1.73 sqM) Glucose (74-99) mg/dL Plasma Lactic Acid Pierre 5.5 H* (0.7-2.0) mmol/L Calcium (8.4-10.2) mg/dL Magnesium (1.6-2.3) mg/dL Total Bilirubin (0.2-1.3) mg/dL AST (17-59) U/L ALT (4-49) U/L Alkaline Phosphatase (38-126) U/L Total Protein (6.3-8.2) g/dL Albumin (3.5-5.0) g/dL Critical Care Time Critical Care Time: Yes Total Critical Care Time: 35 Disposition Clinical Impression: Acute exacerbation of chronic obstructive pulmonary disease, Hypoxia Disposition: ADMITTED IP TO THIS HOSP Condition: Serious Is patient prescribed a controlled substance at d/c from ED?: No Referrals: Joseph Granger MD [Primary Care Provider] - 1-2 days Time of Disposition: 06:08
[2023-05-10 04:48] LABS: Basophils % (A) 0 %; Eosinophils % (A) 0 %; HCT 39.8 % (39.0-53.0); HGB 13.1 gm/dL (13.0-17.5); Lymphocytes # (A) 0.5 k/uL (1.0-4.8); Lymphocytes % (A) 3 %; MCHC 32.9 g/dL (31.0-37.0); MCV 91.1 fL (80.0-100.0); Mean Platelet Volume 8.8; Monocytes # (A) 0.5 k/uL (0-1.0); Monocytes % (A) 4 %; Neutrophils # (A) 12.3 k/uL (1.3-7.7); Neutrophils % (A) 92 %; Platelet Count 267 k/uL (150-450); RBC 4.37 m/uL (4.30-5.90); RDW 13.9 % (11.5-15.5); WBC 13.5 k/uL (3.8-10.6)
[2023-05-10 05:03] LABS: ALT 18 U/L (4-49); AST 20 U/L (17-59); African American GFR (CKD) >90 (>60 ml/min/1.73 sqM); Albumin 4.5 g/dL (3.5-5.0); Alkaline Phosphatase 93 U/L (38-126); Anion Gap 18 mmol/L; Blood Urea Nitrogen 13 mg/dL (9-20); Calcium 9.4 mg/dL (8.4-10.2); Carbon Dioxide 19 mmol/L (22-30); Chloride 103 mmol/L (98-107); Glucose 118 mg/dL (74-99); Magnesium 1.8 mg/dL (1.6-2.3); Non-African American GFR(CKD) >90 (>60 ml/min/1.73 sqM); Potassium 3.3 mmol/L (3.5-5.1); Sodium 140 mmol/L (137-145); Total Bilirubin 0.5 mg/dL (0.2-1.3)
[2023-05-10 05:06] LABS: INR 0.9 (<1.2); Partial Thromboplastin Time 27.5 sec (22.0-30.0); Prothrombin Time 9.9 sec (10.0-12.5)
[2023-05-10] MEDS ORDERED: IPRATROPIUM-ALBUTEROL 3 ML NEB INHALATION STA (05:07)
[2023-05-10] MEDS ORDERED: SODIUM CHLORIDE 0.9% 500 ML 500 ML IV ONE (05:33)
[2023-05-10] MEDS ORDERED: IPRATROPIUM-ALBUTEROL 3 ML NEB INHALATION PRN (05:59)
[2023-05-10] MEDS ORDERED: NALOXONE 0.4 MG/ML 1 ML VIAL IVP PRN (05:59)
[2023-05-10] MEDS ORDERED: LORazepam 2 MG/ML INJ IV STA ×3 (06:55→12:19)
[2023-05-10] MEDS: SODIUM CHLORIDE 0.9% 1,000 ML IV SCH ×2 (07:06→20:45)
--- NOTE | 2023-05-10 07:30 | XR ---
EXAMINATION TYPE: XR chest 1V portable DATE OF EXAM: 05/10/2023 HISTORY: Shortness of breath. COMPARISON: 03/13/2023 TECHNIQUE: Single view of the chest is submitted. FINDINGS: Demonstrated are scattered senescent parenchymal change. Significant interval improvement in scattered infiltrates with mild residual noted. The heart is stable. Hilar and mediastinal structures are within normal limits. Degenerative changes are seen of the dorsal spine. IMPRESSION: 1. Significant interval improvement in scattered infiltrates with mild residual noted.
--- NOTE | 2023-05-10 07:52 | P.CNPUL ---
History of Present Illness Consult date: 05/10/23 Requesting physician: Rui Gonzalez Reason for consult: COPD Chief complaint: Shortness of breath History of present illness: I am seeing this patient in consultation today 05/10/2023 for acute COPD exacerbation. The patient is currently in the ER, room 19. He is a 63-year-old male with past medical history significant for COPD. Patient had a recent hospital admission back in February of this year for bilateral pneumonia. He continues to smoke one pack per day, reportedly quit 4 days ago. This is when he started becoming short of breath. Endorses a productive cough with brown sp utum. Denies any fevers, chest pain, or hemoptysis. Denies sick contacts. He uses albuterol rescue inhaler on outpatient basis. He is currently sitting up in bed, on BiPAP, and in some respiratory distress. Settings 12/5 and FiO2 of 30%. respiratory rate in the high 20s, and generating good tidal volumes. The nurse tells me that he was quite obtunded on arrival. His mentation has improved, alert and able to answer my questions. He appears quite anxious. He is complaining of lower back pain, patient states this is chronic and he takes Kingman's for this at home. Chest x-ray on arrival shows marked improvement in the previously demonstrated bilateral infiltrates. CBC on arrival shows brian kocytosis with a WBC count of 13.5, hemoglobin 13.1, hematocrit 39.8, platelets 267. BMP shows sodium 140, potassium 3.3, chloride 103, serum bicarb 19, BUN 13, creatinine 0.75, glucose 118. Lactic acid level is elevated at 5.5. Normal saline is infusing at 75 mL per hour. He is empirically started on antibiotics. Also, has received loading dose of steroids and multiple DuoNeb nebulizations. Patient will be monitored on the cardiac stepdown unit once bed available. Review of Systems REVIEW OF SYSTEMS: CONSTITUTIONAL: Denies any recent significant weight loss or weight gain. EYES: Denies change in vision. EARS, NOSE, MOUTH, THROAT: Denies headaches, denies sore throat. CARDIOVASCULAR: Denies chest pain, palpitations or syncopal episodes. RESPIRATORY: See HPI GASTROINTESTINAL: Denies change in appetite, abdominal pain, nausea and vom iting, or diarrhea GENITOURINARY: Denies hematuria, denies infections. MUSKULOSKELETAL: Denies pain, denies swelling. INTEGUMENTARY: Denies rash, denies eczema. NEUROLOGICAL: Denies recent memory loss, no recent seizure activity. PSYCHIATRIC: Denies anxiety, denies depression. HEMATOLOGIC/LYMPHATIC: Denies anemia, denies enlarged lymph node Past Medical History Past Medical History: COPD, Pneumonia Additional Past Medical History / Comment(s): back pain History of Any Multi-Drug Resistant Organisms: None Reported Past Surgical History: Back Surgery Additional Past Surgical History / Comment(s): neck fusion,rt eye surgery, rt hand surgery Past Anesthesia/Blood Transfusion Reactions: No Reported Reaction Past Psychological History: Depression Smoking Status: Current every day smoker Past Alcohol Use History: Occasional Past Drug Use History: Marijuana - Past Family History Mother History Unknown: Yes Family Medical History: Myocardial Infarction ([place]) Additional Family Medical History / Comment(s): from [place] Medications and Allergies Home Medications Medication Instructions Recorded Confirmed Type DULoxetine HCL [Cymbalta] 30 mg PO BID 04/15/22 03/12/23 History Baclofen [Lioresal] 10 mg PO TID PRN 01/13/23 03/12/23 History Budesonide-Formot 160-4.5 Mcg 2 puff INHALATION RT-BID PRN 03/12/23 03/12/23 History [Symbicort 160-4.5 Mcg Inhaler] Doxycycline [Vibramycin] 100 mg PO BID 10 Days #20 cap 03/15/23 Rx Fluconazole [Diflucan] 100 mg PO DAILY 7 Days #7 tab 03/15/23 Rx HYDROcodone/APAP 7.5-325MG [Kingman 1 each PO Q6HR PRN #12 tab 03/15/23 Rx 7.5-325] Ipratropium-Albuterol Nebulize 3 ml INHALATION RT-Q2H PRN each 03/15/23 Rx [Duoneb 0.5 mg-3 mg/3 ml Soln] Ipratropium-Albuterol Nebulize 3 ml INHALATION RT-QID #100 each 03/15/23 Rx [Duoneb 0.5 mg-3 mg/3 ml Soln] Nicotine 21Mg/24Hr Patch [Habitrol] 1 patch TRANSDERM DAILY #30 patch 03/15/23 Rx predniSONE 10 mg PO DIRECTED #30 tab 03/15/23 Rx Allergies Allergy/AdvReac Type Severity Reaction Status Date / Time potassium chloride Allergy Swelling Verified 03/12/23 11:08 [From Klor-Con] sacubitril [From Entresto] Allergy Unknown Verified 03/12/23 11:08 trazodone Allergy Rash/Hives Verified 03/12/23 11:08 valsartan [From Entresto] Allergy Unknown Verified 03/12/23 11:08 Physical Exam Vitals: Vital Signs Temp Pulse Resp BP Pulse Ox FiO2 05/10/23 06:00 107 H 24 137/99 99 05/10/23 05:35 106 H 05/10/23 05:30 100 24 138/96 100 05/10/23 05:17 100 30 05/10/23 05:00 105 H 24 136/94 98 05/10/23 04:58 104 H 05/10/23 04:47 105 H 05/10/23 04:31 99 05/10/23 04:30 101 H 20 125/93 99 05/10/23 04:26 30 H 05/10/23 04:10 93 05/10/23 03:51 97.4 F L 102 H 28 H 145/82 98 Intake and Output 05/09/23 05/10/23 05/10/23 22:59 06:59 14:59 Other: Weight 68.039 kg GENERAL EXAM: Alert and anxious, 63-year-old white male, in tripod position on BiPAP, in a moderate amount of respiratory distress HEAD: Normocephalic and atraumatic EYES: Normal reaction of pupils, equal size. NOSE: Clear with pink turbinates. THROAT: No erythema or exudates. NECK: No masses, no JVD. CHEST: No chest wall deformity. LUNGS: Equal air entry with diffuse expiratory wheezes and rhonchi throughout. On BiPAP. Speaking in phrases. CVS: S1 and S2 normal with no audible murmur, regular rhythm. No extra heart sounds ABDOMEN: No hepatosplenomegaly, active bowel sounds, no guarding or rigidity. SPINE: No scoliosis or deformity SKIN: No rashes CENTRAL NERVOUS SYSTEM: No focal deficits, tone is normal in all 4 extremities. EXTREMITIES: There is no peripheral edema, clubbing, or cyanosis. Peripheral pulses are intact. Results - Laboratory Findings CBC and BMP: 05/10/23 04:16 05/10/23 04:16 PT/INR, D-dimer PT 9.9 sec (10.0-12.5) L 05/10/23 04:16 INR 0.9 (<1.2) 05/10/23 04:16 Abnormal lab findings: Abnormal Labs 05/10/23 05/10/23 05/10/23 04:16 04:16 04:16 WBC 13.5 H Neutrophils # 12.3 H Lymphocytes # 0.5 L PT 9.9 L Potassium 3.3 L Carbon Dioxide 19 L Glucose 118 H Plasma Lactic Acid Pierre 05/10/23 04:16 WBC Neutrophils # Lymphocytes # PT Potassium Carbon Dioxide Glucose Plasma Lactic Acid Pierre 5.5 H* - Diagnostic Findings Chest x-ray: image reviewed Assessment and Plan Assessment: Acute hypoxemic respiratory failure, secondary to acute COPD exacerbation. Chest x-ray shows marked improvement in bilateral infiltrates noted on most recent admission Lactic acidosis, secondary to above and hypoxemia Leukocytosis Chronic ongoing tobacco dependence Plan: Patient's medications, labs, chest x-ray reviewed. Chest x-ray shows marked improvement in the patient's prior bilateral infiltrates on most recent admission back in February. Continue on BiPAP for now with current settings. No evidence of CO2 narcosis. Patient is actually quite anxious. We will give a one-time dose of Ativan. Continue empiric antibiotics. Check procalcitonin level Screen for COVID-19 and influenza Start patient on a combination of DuoNeb's, budesonide, formoterol, and IV Solu- Medrol Smoking cessation encouraged again Nicotine replacement offered We will continue to follow I have personally seen and examined the patient, performed the documentation and the assessment and plan as written. Number of minutes spent on the visit:20 Time with Patient: Greater than 30
[2023-05-10] MEDS: HYDROcodone/APAP 7.5-325MG 1 EACH TAB PO PRN (07:59)
[2023-05-10] MEDS: IPRATROPIUM-ALBUTEROL 3 ML NEB INHALATION SCH ×4 (08:33→20:00)
[2023-05-10] MEDS: BUDESONIDE 1 MG/2 ML NEBU INHALATION SCH ×2 (08:33→20:00)
[2023-05-10] MEDS: FORMOTEROL FUMARATE 20 MCG/2 ML NEBU INHALATION SCH ×2 (08:34→20:00)
[2023-05-10 08:59] LABS: ABG Base Excess -8.6 mmol/L; ABG HCO3 19 mmol/L (21-25); ABG Oxygen Saturation 99.6 % (94-97); ABG PCO2 41 mmHg (35-45); ABG PH 7.26 (7.35-7.45); ABG PO2 219 mmHg (83-108); ABG TCO2 20 mmol/L (19-24); Allen Test Performed? Yes
[2023-05-10] MEDS: methylPREDNISolone SOD SUCCI 125 MG/2 ML VIAL IV SCH ×3 (10:40→22:22)
[2023-05-10] MEDS: NICOTINE 21MG/24HR PATCH TRANSDERM SCH (10:42)
[2023-05-10] MEDS ORDERED: KETOROLAC 15 MG/ML 1 ML VIAL IVP STA (12:18)
[2023-05-10] MEDS ORDERED: SODIUM BICARB 8.4% 50 ML SYR (1 MEQ/ML) IV STA (12:23)
[2023-05-10] MEDS ORDERED: Potassium Replacement Protocol 1 EACH MISC MISCELLANE PRN (12:25)
[2023-05-10] MEDS ORDERED: HYDROcodone/APAP 7.5-325MG 1 EACH TAB PO PRN (12:27)
[2023-05-10] MEDS ORDERED: LORazepam 2 MG/ML INJ IV PRN ×2 (12:27)
[2023-05-10] MEDS ORDERED: THIAMINE 100 MG/ML 2 ML VIAL IM STA (12:27)
--- NOTE | 2023-05-10 12:36 | P.HPIM ---
History of Present Illness Patient is 63-year-old male came into hospital with the complaints of cough was admitted for COPD etc. she was on BiPAP. When I evaluated the patient patient is in respiratory distress with respiratory rate of around 33 and patient was shaking and unable to get much of the history from the patient patient admits to drinking on daily basis unknown exactly how much that he drinks alcohol level is not available at this time. Patient had an ABG on BiPAP which showed pH of 7.2 lactic acidosis pCO2 of 41 saturating at 99% and pO2 of around 235. Patient has significant wheezing was started on systemic steroids inhalational treatments. Chest x-ray did not show any pneumonia no other clear evidence of infection patient does have leukocytosis with white blood cell count of 13.5 highly elevated lactic acid on admission presently 5.5 lactic acid patient is receiving 75 mL of normal saline. Blood cultures were obtained patient is presently on Rocephin and azithromycin which will be continued. REVIEW OF SYSTEMS: Unable to obtain due to his clinical condition PHYSICAL EXAMINATION: GENERAL: She is in respiratory distress, agitated pulling his BiPAP on BiPAP with the nonessential tremors. HEENT: Pupils are round and equally reacting to light. EOMI. No scleral icterus. No conjunctival pallor. Normocephalic, atraumatic. No pharyngeal erythema. No thyromegaly. CARDIOVASCULAR: S1 and S2 present. No murmurs, rubs, or gallops. PULMONARY: Significant expiratory wheezing on exam. ABDOMEN: Soft, nontender, nondistended, normoactive bowel sounds. No palpable organomegaly. MUSCULOSKELETAL: No joint swelling or deformity. EXTREMITIES: No cyanosis, clubbing, or pedal edema. NEUROLOGICAL: Drowsy, tremulous SKIN: No rashes. Assessment and plan -Acute respiratory failure secondary to COPD exacerbation patient has hypercapnic respiratory failure is pCO2 he is normal because of BiPAP continue systemic steroids inhalational treatments I cannot the rule out sepsis at this time. Continue with BiPAP use Ativan on as-needed basis -possible alcohol withdrawal patient will be on Ativan CIWA withdrawal protocol and patient -Lactic acidosis can be dehydration although sepsis cannot be ruled out patient will be continued on antibiotics for pneumonia for now although there is no clear evidence of pneumonia pro-calcitonin will be ordered. -Possible sepsis -Continued nicotine use -Chronic back pain we will use Toradol for pain along with the Protonix. -Natriuretic hypokalemia: Potassium will be replaced continue with IV fluids DVT prophylaxis: Lovenox Past Medical History Past Medical History: COPD, Pneumonia Additional Past Medical History / Comment(s): back pain History of Any Multi-Drug Resistant Organisms: None Reported Past Surgical History: Back Surgery Additional Past Surgical History / Comment(s): neck fusion,rt eye surgery, rt hand surgery Past Anesthesia/Blood Transfusion Reactions: No Reported Reaction Past Psychological History: Depression Smoking Status: Current every day smoker Past Alcohol Use History: Occasional Past Drug Use History: Marijuana - Past Family History Mother History Unknown: Yes Family Medical History: Myocardial Infarction ([place]) Additional Family Medical History / Comment(s): from [place] Medications and Allergies Home Medications Medication Instructions Recorded Confirmed Type DULoxetine HCL [Cymbalta] 60 mg PO DAILY 04/15/22 05/10/23 History Baclofen [Lioresal] 20 mg PO TID PRN 01/13/23 05/10/23 History Budesonide-Formot 160-4.5 Mcg 2 puff INHALATION RT-BID 03/12/23 05/10/23 History [Symbicort 160-4.5 Mcg Inhaler] Ipratropium-Albuterol Nebulize 3 ml INHALATION RT-QID #100 each 03/15/23 05/10/23 Rx [Duoneb 0.5 mg-3 mg/3 ml Soln] Albuterol Sulfate [Ventolin HFA] 2 puff INHALATION RT-QID PRN 05/10/23 05/10/23 History DULoxetine HCL [Cymbalta] 30 mg PO HS 05/10/23 05/10/23 History HYDROcodone/APAP 7.5-325MG [[place] 1 tab PO BID PRN 05/10/23 05/10/23 History 7.5-325] Ipratropium [place] 0.06%Nasal 2 spr EA NOSTRIL TID 05/10/23 05/10/23 History [Atrovent Nasal 0.06%] Meloxicam [Mobic] 15 mg PO DAILY 05/10/23 05/10/23 History Tamsulosin [Flomax] 0.4 mg PO DAILY 05/10/23 05/10/23 History Allergies Allergy/AdvReac Type Severity Reaction Status Date / Time potassium chloride Allergy Swelling Verified 05/10/23 10:17 [From Klor-Con] sacubitril [From Entresto] Allergy Unknown Verified 05/10/23 10:17 trazodone Allergy Rash/Hives Verified 05/10/23 10:17 valsartan [From Entresto] Allergy Unknown Verified 05/10/23 10:17 Physical Exam Vitals: Vital Signs Temp Pulse Resp BP Pulse Ox FiO2 05/10/23 12:00 138 H 39 H 117/104 96 05/10/23 11:44 112 H 05/10/23 11:38 30 05/10/23 11:36 112 H 05/10/23 11:30 133 H 18 153/119 97 05/10/23 11:10 24 05/10/23 11:00 123 H 24 186/122 96 05/10/23 10:25 118 H 24 165/101 97 05/10/23 08:55 110 H 05/10/23 08:53 30 05/10/23 08:43 110 H 05/10/23 08:42 112 H 05/10/23 08:33 110 H 05/10/23 08:03 117 H 10 L 154/105 96 05/10/23 06:00 107 H 24 137/99 99 05/10/23 05:35 106 H 05/10/23 05:30 100 24 138/96 100 05/10/23 05:17 100 30 05/10/23 05:00 105 H 24 136/94 98 05/10/23 04:58 104 H 05/10/23 04:47 105 H 05/10/23 04:31 99 05/10/23 04:30 101 H 20 125/93 99 05/10/23 04:26 30 H 05/10/23 04:10 93 05/10/23 03:51 97.4 F L 102 H 28 H 145/82 98 Intake and Output 05/09/23 05/10/23 05/10/23 22:59 06:59 14:59 Other: Weight 68.039 kg Results CBC & Chem 7: 05/10/23 04:16 05/10/23 04:16 Labs: Abnormal Lab Results - Last 24 Hours (Table) 05/10/23 05/10/23 05/10/23 Range/Units 04:16 04:16 04:16 WBC 13.5 H (3.8-10.6) k/uL Neutrophils # 12.3 H (1.3-7.7) k/uL Lymphocytes # 0.5 L (1.0-4.8) k/uL PT 9.9 L (10.0-12.5) sec ABG pH (7.35-7.45) ABG pO2 (83-108) mmHg ABG HCO3 (21-25) mmol/L ABG O2 Saturation (94-97) % Potassium 3.3 L (3.5-5.1) mmol/L Carbon Dioxide 19 L (22-30) mmol/L Glucose 118 H (74-99) mg/dL Plasma Lactic Acid Pierre (0.7-2.0) mmol/L 05/10/23 05/10/23 05/10/23 Range/Units 04:16 07:40 08:55 WBC (3.8-10.6) k/uL Neutrophils # (1.3-7.7) k/uL Lymphocytes # (1.0-4.8) k/uL PT (10.0-12.5) sec ABG pH 7.26 L (7.35-7.45) ABG pO2 219 H (83-108) mmHg ABG HCO3 19 L (21-25) mmol/L ABG O2 Saturation 99.6 H (94-97) % Potassium (3.5-5.1) mmol/L Carbon Dioxide (22-30) mmol/L Glucose (74-99) mg/dL Plasma Lactic Acid Pierre 5.5 H* 6.2 H* (0.7-2.0) mmol/L 05/10/23 Range/Units 10:41 WBC (3.8-10.6) k/uL Neutrophils # (1.3-7.7) k/uL Lymphocytes # (1.0-4.8) k/uL PT (10.0-12.5) sec ABG pH (7.35-7.45) ABG pO2 (83-108) mmHg ABG HCO3 (21-25) mmol/L ABG O2 Saturation (94-97) % Potassium (3.5-5.1) mmol/L Carbon Dioxide (22-30) mmol/L Glucose (74-99) mg/dL Plasma Lactic Acid Pierre 5.6 H* (0.7-2.0) mmol/L
[2023-05-10] MEDS: POTASSIUM CHLORIDE 20 MEQ in WATER FOR INJECTION 1 100ML.BAG IVPB SCH ×3 (13:40→18:34)
[2023-05-10 14:39] LABS: Glucose,Whole Blood 154 mg/dL (70-110)
[2023-05-10] MEDS: LORazepam 2 MG/ML INJ IV PRN ×2 (14:51→18:50)
[2023-05-10] MEDS ORDERED: DEXMEDETOMIDINE/0.9% NACL(PMX) 400 MCG in EMPTY BAG 1 BAG IV SCH (15:00)
[2023-05-10 15:18] LABS: ABG Base Excess -4.2 mmol/L; ABG HCO3 22 mmol/L (21-25); ABG Oxygen Saturation 94.3 % (94-97); ABG PCO2 40 mmHg (35-45); ABG PH 7.34 (7.35-7.45); ABG PO2 64 mmHg (83-108); ABG TCO2 23 mmol/L (19-24); Allen Test Performed? Yes
[2023-05-10] MEDS ORDERED: FUROSEMIDE 10 MG/ML 2 ML VIAL IV STA (15:28)
--- NOTE | 2023-05-10 16:03 | XR ---
EXAMINATION TYPE: XR chest 1V portable DATE OF EXAM: 05/10/2023 3:46 PM CLINICAL INDICATION:Male, 63 years old with history of shortness of breath; PHH COMPARISON: Chest radiographs from 05/10/2023 TECHNIQUE: XR chest 1V portable Frontal view of the chest. FINDINGS: Lungs/Pleura: Multifocal airspace opacities. No evidence of pneumothorax or pleural effusion. Pulmonary vascularity: Unremarkable. Heart/mediastinum: Cardiomediastinal silhouette is enlarged and stable. Musculoskeletal: No acute osseous pathology. There is fixation hardware in the lower cervical spine. Other findings: None IMPRESSION: Worsening multifocal airspace opacities concerning for pneumonia. Right with serum BNP.
[2023-05-10] MEDS: ACETAMINOPHEN IV (For NPO) 1,000 MG in EMPTY BAG 1 BAG IVPB SCH (19:25)
[2023-05-10] MEDS ORDERED: SYMBICORT 160-4.5 MCG INHALER INHALATION SCH (20:00)
[2023-05-10] MEDS: HYDROmorphone 0.5 MG/0.5 ML SYRINGE IVP PRN (20:44)
[2023-05-10] MEDS: DULoxetine HCL 30 MG CAPSULE.DR PO SCH (20:56)
[2023-05-10] MEDS ORDERED: FUROSEMIDE 10 MG/ML 4 ML VIAL IV STA (22:40)
[2023-05-11] MEDS: HYDROmorphone 0.5 MG/0.5 ML SYRINGE IVP PRN ×2 (01:16→05:41)
[2023-05-11] MEDS: ACETAMINOPHEN IV (For NPO) 1,000 MG in EMPTY BAG 1 BAG IVPB SCH ×3 (04:08→12:04)
[2023-05-11] MEDS: methylPREDNISolone SOD SUCCI 125 MG/2 ML VIAL IV SCH ×4 (04:19→19:46)
[2023-05-11] MEDS: AZITHROMYCIN 500 MG in SODIUM CHLORIDE 0.9% 250 ML IVPB SCH (05:10)
[2023-05-11 05:24] LABS: HGB 11.4 gm/dL (13.0-17.5); MCH 29.3 pg (25.0-35.0); MCHC 32.6 g/dL (31.0-37.0); MCV 89.9 fL (80.0-100.0); Mean Platelet Volume 9.2; Platelet Count 259 k/uL (150-450); RDW 14.3 % (11.5-15.5); WBC 22.4 k/uL (3.8-10.6)
[2023-05-11 05:34] LABS: ALT 15 U/L (4-49); African American GFR (CKD) >90 (>60 ml/min/1.73 sqM); Anion Gap 10 mmol/L; Blood Urea Nitrogen 30 mg/dL (9-20); Calcium 8.6 mg/dL (8.4-10.2); Carbon Dioxide 22 mmol/L (22-30); Chloride 108 mmol/L (98-107); Glucose 124 mg/dL (74-99); Non-African American GFR(CKD) 89 (>60 ml/min/1.73 sqM); Sodium 140 mmol/L (137-145)
[2023-05-11 05:39] LABS: AST 43 U/L (17-59); Albumin 3.7 g/dL (3.5-5.0); Alkaline Phosphatase 69 U/L (38-126); Potassium 4.8 mmol/L (3.5-5.1); Total Bilirubin 0.7 mg/dL (0.2-1.3); Total Protein 6.3 g/dL (6.3-8.2)
[2023-05-11] MEDS: BUDESONIDE 1 MG/2 ML NEBU INHALATION SCH ×2 (06:52→19:55)
[2023-05-11] MEDS: IPRATROPIUM-ALBUTEROL 3 ML NEB INHALATION SCH ×4 (06:53→19:56)
[2023-05-11] MEDS: FORMOTEROL FUMARATE 20 MCG/2 ML NEBU INHALATION SCH ×2 (06:53→19:55)
[2023-05-11] MEDS: HYDROcodone/APAP 7.5-325MG 1 EACH TAB PO PRN ×3 (06:53→18:23)
--- NOTE | 2023-05-11 08:27 | XR ---
EXAMINATION TYPE: XR chest 1V portable DATE OF EXAM: 05/11/2023 Comparison: 05/10/2023 Clinical History: 63-year-old male pneumonia/CHF Findings: Heart borderline enlarged. Posterior cervical fusion hardware partially visualized. Patchy and conflu ent bilateral airspace opacities greatest in the upper and midlungs have increased in the interval. N o sizable pleural effusion. Impression: Borderline cardiomegaly. Worsening patchy and confluent airspace particularly in the upper and midlun gs.
[2023-05-11] MEDS ORDERED: THIAMINE 100 MG TAB PO SCH (09:00)
[2023-05-11] MEDS: DULoxetine HCL 60 MG CAPSULE.DR PO SCH (09:03)
[2023-05-11] MEDS: NICOTINE 21MG/24HR PATCH TRANSDERM SCH (09:04)
[2023-05-11] MEDS: ENOXAPARIN 40 MG/0.4 ML SYRINGE SQ SCH (09:04)
[2023-05-11] MEDS: SODIUM CHLORIDE 0.9% 1,000 ML IV SCH (09:05)
[2023-05-11] MEDS ORDERED: FUROSEMIDE 10 MG/ML 2 ML VIAL IV STA (09:54)
--- NOTE | 2023-05-11 10:26 | CA ---
Transthoracic Echo Report Name: Fausto Willis Age: 63 Gender: M : 1960 Exam Date: 05/10/2023 16:32 Exam Location: [facility] Ht (in): 69 Wt (lb): 150 Ordering Physician: Joshua Mas MD Attending/Referring Phys: Linen Manager Karishma Resendiz RDCS Procedure CPT: Indications: chf Cardiac Hx: Technical Quality: Technically difficult study Contrast 1: Total Dose (mL): Contrast 2: Total Dose (mL): MEASUREMENTS (Male / Female) Normal Values 2D ECHO LV Diastolic Diameter PLAX 4.7 cm 4.2 - 5.9 / 3.9 - 5.3 cm LV Systolic Diameter PLAX 3.2 cm IVS Diastolic Thickness 1.1 cm 0.6 - 1.0 / 0.6 - 0.9 cm LVPW Diastolic Thickness 1.1 cm 0.6 - 1.0 / 0.6 - 0.9 cm LV Relative Wall Thickness 0.5 RV Internal Dim ED PLAX 2.9 cm LA Systolic Diameter LX 3.3 cm 3.0 - 4.0 / 2.7 - 3.8 cm LV Diastolic Volume MOD BP 77.8 cm??? 67 - 155 / 56 - 104 cm??? LV Systolic Volume MOD BP 20.2 cm??? 22 - 58 / 19 - 49 cm??? LV Ejection Fraction MOD BP 74.1 % >= 55 % LV Cardiac Index MOD BP 2881.3 cm???/min???m??? LV Diastolic Volume MOD 4C 71.0 cm??? LV Systolic Volume MOD 4C 22.9 cm??? LV Ejection Fraction MOD 4C 67.8 % LV Cardiac Index MOD 4C 2406.1 cm???/min???m??? LV Diastolic Length 4C 7.3 cm LV Systolic Length 4C 6.1 cm LV Diastolic Volume MOD 2C 71.4 cm??? LV Systolic Volume MOD 2C 28.5 cm??? LV Ejection Fraction MOD 2C 60.1 % LV Cardiac Index MOD 2C 2148.9 cm???/min???m??? LV Diastolic Length 2C 6.9 cm LV Systolic Length 2C 5.8 cm LA Volume 60.7 cm??? 18 - 58 / 22 - 52 cm??? LA Volume Index 33.4 cm???/m??? 16 - 28 cm???/m??? M-MODE Aortic Root Diameter MM 3.1 cm MV E Point Septal Separation 0.6 cm AV Cusp Separation MM 2.2 cm DOPPLER AV Peak Velocity 133.9 cm/s AV Peak Gradient 7.2 mmHg MV Area PHT 4.9 cm??? Mitral E Point Velocity 124.9 cm/s Mitral A Point Velocity 103.6 cm/s Mitral E to A Ratio 1.2 MV Deceleration Time 154.9 ms MV E' Velocity 10.5 cm/s Mitral E to MV E' Ratio 11.9 TR Peak Velocity 295.7 cm/s TR Peak Gradient 35.0 mmHg Right Ventricular Systolic Press 40.0 mmHg FINDINGS Left Ventricle Left ventricular ejection fraction is estimated at 60-65 %. Left ventricular cavity size normal. Left ventricular wall thickness normal. No obvious regional wall motion abnormalities. Right Ventricle Normal right ventricular size. Mild pulmonary hypertension. Right ventricular systolic pressure estimated at 40 mm hg. Right Atrium Normal right atrial size. Left Atrium Mildly increased left atrial volume. Mildly increased left atrial area. Mitral Valve Structurally normal mitral valve. No mitral stenosis, regurgitation or prolapse. Aortic Valve Trileaflet aortic valve. No aortic valve stenosis or regurgitation. Tricuspid Valve Structurally normal tricuspid valve. Mild tricuspid regurgitation. Pulmonic Valve Structurally normal pulmonic valve. Trace pulmonic regurgitation. Pericardium No pericardial effusion. Aorta Normal size aortic root and proximal ascending aorta. CONCLUSIONS Technically difficult study. Left ventricular ejection fraction is estimated at 60-65 %. No obvious regional wall motion abnormalities. Right ventricular systolic pressure estimated at 40 mm hg. No significant valvular dysfunction No pericardial effusion. Previewed by: Dr Tani Knight (Electronically Signed) Final Date: 11 May 2023 10:25
--- NOTE | 2023-05-11 11:31 | P.PN ---
Subjective Progress Note Date: 05/11/23 Principal diagnosis: Acute hypoxic respiratory failure secondary to acute exacerbation of COPD and acute community-acquired pneumonia I am seeing this patient in consultation today 05/10/2023 for acute COPD exacerbation. The patient is currently in the ER, room 19. He is a 63-year-old male with past medical history significant for COPD. Patient had a recent hospital admission back in February of this year for bilateral pneumonia. He continues to smoke one pack per day, reportedly quit 4 days ago. This is when he started becoming short of breath. Endorses a productive cough with brown sputum. Denies any fevers, chest pain, or hemoptysis. Denies sick contacts. He uses albuterol rescue inhaler on outpatient basis. He is currently sitting up in bed, on BiPAP, and in some respiratory distress. Settings 12/5 and FiO2 of 30%. respiratory rate in the high 20s, and generating good tidal volumes. The nurse tells me that he was quite obtunded on arrival. His mentation has improved, alert and able to answer my questions. He appears quite anxious. He is complaining of lower back pain, patient states this is chronic and he takes [place] for this at home. Chest x-ray on arrival shows marked improvement in the previously demonstrated bilateral infiltrates. CBC on arrival shows leukocytosis with a WBC count of 13.5, hemoglobin 13.1, hematocrit 39.8, platelets 267. BMP shows sodium 140, potassium 3.3, chloride 103, serum bicarb 19, BUN 13, creatinine 0.75, glucose 118. Lactic acid level is elevated at 5.5. Normal saline is infusing at 75 mL per hour. He is empirically started on antibiotics. Also, has received loading dose of steroids and multiple DuoNeb nebulizations. Patient will be monitored on the cardiac stepdown unit once bed available. Reevaluated today on 05/11/2023, patient remains in the ICU, he was on BiPAP overnight 12/5/40%, however at 6 AM in the morning the patient was transitioned to a nasal cannula at 2 L. Patient was also on Precedex overnight and this was discontinued at 6 AM this morning. Chest x-ray is basically about the same, continues to show bilateral airspace disease. His echocardiogram came back basically unremarkable his Procrit the level was noted to be elevated BNP level is pending patient did diurese significantly yesterday with one dose of Lasix. Patient remains on Rocephin and Zithromax for now. Patient is definitely more comfortable today compared to yesterday but nonetheless on physical examination continues to have diffuse rhonchi and wheezes bilaterally. Again his chest x- ray may be a bit worse compared to the chest x-ray noted yesterday. CBC showed leukocytosis with WBC count of 22.4 hemoglobin is 11.4 basic metabolic profile is normal renal profile is normal ABG yesterday showed a pO2 of 64 pCO2 40 pH of 7.34 BNP level is slightly elevated and pro-calcitonin level is elevated. 1.28 Objective - Vital Signs Vital signs: Vital Signs Temp 98.2 F 05/11/23 08:00 Pulse 103 H 05/11/23 09:45 Resp 16 05/11/23 09:45 BP 147/89 05/11/23 09:45 Pulse Ox 96 05/11/23 09:45 FiO2 40 05/11/23 03:26 Intake & Output 05/10/23 05/11/23 05/11/23 18:59 06:59 18:59 Intake Total 389.430 645.315 30 Output Total 1425 1790 105 Balance -1035.570 -1144.685 -75 Weight 68.039 kg 74.4 kg Intake: IV 375 185 30 0.9 375 185 30 Intake, IV Titration 14.430 460.315 Amount ACETAMINOPHEN IV (For NPO 100 ) 1,000 mg In Empty Bag 1 bag @ 400 mls/hr IVPB Q6H [facility] Rx#:[id number] Dexmedetomidine/0.9% NaCl 14.430 60.315 (Pmx) 400 mcg In Empty Bag 1 bag @ 0.2 MCG/KG/HR 3.402 mls/hr IV .Q24H [facility] Rx#:[id number] Potassium Chloride 20 meq 300 In Water For Injection 1 100ml.bag @ 50 mls/hr IVPB Q2H [facility] Rx#: [id number] Oral 0 Output: Urine 1425 1790 105 Straight 400 0 Other: Voiding Method Indwelling Catheter Indwelling Catheter - Exam Physical Exam: Revealed a 63-year-old white male in no distress, on 2 L nasal cannula Head: Atraumatic normocephalic HEENT:[Neck is supple.] [No neck masses.] [No thyromegaly.] [No JVD.] Chest: [Rhonchi and wheezes noted bilaterally. Cardiac Exam: [Normal S1 and S2, no S3 gallop, no murmur.] Abdomen: [Soft, nontender, no megaly, no rebound, no guarding, normal bowel so unds.] Extremities: [No clubbing, no edema, no cyanosis.] Neurological Exam: [No focal neurologic deficit.] Psychiatric: Normal mood affect and normal mental status examination. Skin: No rashes. - Labs CBC & Chem 7: 05/11/23 05:10 05/11/23 05:10 Labs: Abnormal Lab Results - Last 24 Hours (Table) 05/10/23 05/10/23 05/10/23 Range/Units 07:40 12:44 13:49 WBC (3.8-10.6) k/uL RBC (4.30-5.90) m/uL Hgb (13.0-17.5) gm/dL Hct (39.0-53.0) % ABG pH (7.35-7.45) ABG pO2 (83-108) mmHg Chloride (98-107) mmol/L BUN (9-20) mg/dL Glucose (74-99) mg/dL POC Glucose (mg/dL) (70-110) mg/dL Plasma Lactic Acid Pierre 4.4 H* (0.7-2.0) mmol/L Procalcitonin 0.42 H 1.28 H (0.02-0.09) ng/mL 05/10/23 05/10/23 05/11/23 Range/Units 14:37 15:17 05:10 WBC 22.4 H (3.8-10.6) k/uL RBC 3.90 L (4.30-5.90) m/uL Hgb 11.4 L (13.0-17.5) gm/dL Hct 35.0 L (39.0-53.0) % ABG pH 7.34 L (7.35-7.45) ABG pO2 64 L (83-108) mmHg Chloride (98-107) mmol/L BUN (9-20) mg/dL Glucose (74-99) mg/dL POC Glucose (mg/dL) 154 H (70-110) mg/dL Plasma Lactic Acid Pierre (0.7-2.0) mmol/L Procalcitonin (0.02-0.09) ng/mL 05/11/23 Range/Units 05:10 WBC (3.8-10.6) k/uL RBC (4.30-5.90) m/uL Hgb (13.0-17.5) gm/dL Hct (39.0-53.0) % ABG pH (7.35-7.45) ABG pO2 (83-108) mmHg Chloride 108 H (98-107) mmol/L BUN 30 H (9-20) mg/dL Glucose 124 H (74-99) mg/dL POC Glucose (mg/dL) (70-110) mg/dL Plasma Lactic Acid Pierre (0.7-2.0) mmol/L Procalcitonin (0.02-0.09) ng/mL Assessment and Plan Assessment: Impression: Acute hypoxic respiratory failure, multifactorial Acute community-acquired pneumonia Acute exacerbation of COPD Doubt congestive heart failure this is felt to be less likely based on the overall picture. Leukocytosis secondary to pneumonia and COPD exacerbation Suspect sepsis secondary to pneumonia Accommodation: Continue to monitor the patient in the ICU Continue antibiotics Rocephin/Zithromax Hold diuretics Continue DuoNeb, Pulmicort and Perforomist Continue Solu-Medrol Use Precedex if necessary Use BiPAP if necessary GI and DVT prophylaxis DVT prophylaxis Advanced diet as tolerated Will follow Time with Patient: Less than 30
--- NOTE | 2023-05-11 14:21 | P.PN ---
Subjective Progress Note Date: 05/11/23 Patient is 63-year-old male came into hospital with the complaints of cough was admitted for COPD etc. she was on BiPAP. When I evaluated the patient patient is in respiratory distress with respiratory rate of around 33 and patient was shaking and unable to get much of the history from the patient patient admits to drinking on daily basis unknown exactly how much that he drinks alcohol level is not available at this time. Patient had an ABG on BiPAP which showed pH of 7.2 lactic acidosis pCO2 of 41 saturating at 99% and pO2 of around 235. Patient has significant wheezing was started on systemic steroids inhalational treatments. Chest x-ray did not show any pneumonia no other clear evidence of infection patient does have leukocytosis with white blood cell count of 13.5 highly elevated lactic acid on admission presently 5.5 lactic acid patient is receiving 75 mL of normal saline. Blood cultures were obtained patient is presently on Rocephin and azithromycin which will be continued. 05/11/2023 Patient is evaluated today in the intensive care unit. States he feels less short of breath today. Off IV precedex and does not appear to be withdrawling at this time. Does have tremors at baseline mostly with movement. Repeat chest xray showing borderline cardiomegaly with worsening patchy and confluent airspace particularity in the upper and midlungs. Echocardiogram comes back at EF 60-65% mild TR. Continues on IV ceftriaxone and IV azithromycin, additionally she is on IV solu-medrol. White count today 22.4, hgb 11.4, sodium 140, potassium 4.8, BUN 30, creatinine 9.3, LFTs normal. He did have a proBNP done today at 2910. He remains on 2L nasal cannula with oxygen 94%. Review of Systems Constitutional: Denied any fatigue denied any fever. Cardio vascular: denied any chest pain, palpitations Gastrointestinal: denied any nausea, vomiting, diarrhea Pulmonary: Reports shortness of breath, no cough. Neurologic denied any new focal deficits Reports tremoring. All inpatient medications were reviewed and appropriate changes in these medications as dictated in the interval history and assessment and plan. PHYSICAL EXAMINATION: GENERAL: The patient is alert and oriented x3, not in any acute distress. Well developed, well nourished. HEENT: Pupils are round and equally reacting to light. EOMI. No scleral icterus. No conjunctival pallor. Normocephalic, atraumatic. No pharyngeal erythema. No thyromegaly. CARDIOVASCULAR: S1 and S2 present. No murmurs, rubs, or gallops. PULMONARY: Chest is clear to auscultation, no wheezing or crackles. ABDOMEN: Soft, nontender, nondistended, normoactive bowel sounds. No palpable organomegaly. MUSCULOSKELETAL: No joint swelling or deformity. EXTREMITIES: No cyanosis, clubbing, or pedal edema. NEUROLOGICAL: Gross neurological examination did not reveal any focal deficits. Patient has tremors at baseline with movement bilateral upper and lower extremities SKIN: No rashes. Assessment and plan -Acute respiratory failure secondary to COPD exacerbation patient has hypercapnic respiratory failure which he improved with BiPAP he continues on systemic and inhaled steroids -Possible alcohol withdrawal patient will be on Ativan CIWA withdrawal protocol and patient was given IV precedex which has been discontinued at this time. C ontinue to monitor closely for alcohol withdrawal. -Lactic acidosis from sepsis resolved. -Acute community acquired pneumonia and sepsis POA with elevated procalcitonin level patient is continued on azithromycin and ceftriaxone. -Continued nicotine use -Chronic back pain we will use Toradol for pain along with the Protonix. -Natriuretic hypokalemia: Potassium will be replaced continue with IV fluids -Chronic ongoing nicotine use and alcohol use DVT prophylaxis: Lovenox GI prophylaxis: Full Code Plan Patient will remain in the intensive care unit with recommendations for BiPAP and precedex if needed for acute alcohol withdrawal symptoms. Remains on antibiotics and inhaled and systemic steroids. PT/OT consultation and also repeat labs in the AM. The impression and plan of care has been dictated by Loreta Hough, Nurse Practitioner as directed. Dr. Jaz MD I have performed a history and physical examination and medical decision making of this patient, discussed the same with the dictator, and agree with the dictators assessment and plan as written, documented as a scribe. Based on total visit time, I have performed more than 50% of this visit. Objective - Vital Signs Vital signs: Vital Signs Temp 97.8 F 05/11/23 12:00 Pulse 95 05/11/23 12:00 Resp 17 05/11/23 12:00 BP 130/88 05/11/23 12:00 Pulse Ox 94 L 05/11/23 12:00 FiO2 40 05/11/23 03:26 Intake & Output 1205/11/23 05/11/23 18:59 06:59 18:59 Intake Total 389.430 645.315 60 Output Total 1425 1790 885 Balance -1035.570 -1144.685 -825 Weight 68.039 kg 74.4 kg Intake: IV 375 185 60 0.9 375 185 60 Intake, IV Titration 14.430 460.315 Amount ACETAMINOPHEN IV (For NPO 100 ) 1,000 mg In Empty Bag 1 bag @ 400 mls/hr IVPB Q6H [facility] Rx#:[id number] Dexmedetomidine/0.9% NaCl 14.430 60.315 (Pmx) 400 mcg In Empty Bag 1 bag @ 0.2 MCG/KG/HR 3.402 mls/hr IV .Q24H [facility] Rx#:[id number] Potassium Chloride 20 meq 300 In Water For Injection 1 100ml.bag @ 50 mls/hr IVPB Q2H [facility] Rx#: [id number] Oral 0 Output: Urine 1425 1790 885 Straight 400 0 Other: Voiding Method Indwelling Catheter Indwelling Catheter - Labs CBC & Chem 7: 05/11/23 05:10 05/11/23 05:10 Labs: Abnormal Lab Results - Last 24 Hours (Table) 05/10/23 05/10/23 05/10/23 Range/Units 07:40 12:44 13:49 WBC (3.8-10.6) k/uL RBC (4.30-5.90) m/uL Hgb (13.0-17.5) gm/dL Hct (39.0-53.0) % ABG pH (7.35-7.45) ABG pO2 (83-108) mmHg Chloride (98-107) mmol/L BUN (9-20) mg/dL Glucose (74-99) mg/dL POC Glucose (mg/dL) (70-110) mg/dL Plasma Lactic Acid Pierre 4.4 H* (0.7-2.0) mmol/L Procalcitonin 0.42 H 1.28 H (0.02-0.09) ng/mL 05/10/23 05/10/23 05/11/23 Range/Units 14:37 15:17 05:10 WBC 22.4 H (3.8-10.6) k/uL RBC 3.90 L (4.30-5.90) m/uL Hgb 11.4 L (13.0-17.5) gm/dL Hct 35.0 L (39.0-53.0) % ABG pH 7.34 L (7.35-7.45) ABG pO2 64 L (83-108) mmHg Chloride (98-107) mmol/L BUN (9-20) mg/dL Glucose (74-99) mg/dL POC Glucose (mg/dL) 154 H (70-110) mg/dL Plasma Lactic Acid Pierre (0.7-2.0) mmol/L Procalcitonin (0.02-0.09) ng/mL 05/11/23 Range/Units 05:10 WBC (3.8-10.6) k/uL RBC (4.30-5.90) m/uL Hgb (13.0-17.5) gm/dL Hct (39.0-53.0) % ABG pH (7.35-7.45) ABG pO2 (83-108) mmHg Chloride 108 H (98-107) mmol/L BUN 30 H (9-20) mg/dL Glucose 124 H (74-99) mg/dL POC Glucose (mg/dL) (70-110) mg/dL Plasma Lactic Acid Pierre (0.7-2.0) mmol/L Procalcitonin (0.02-0.09) ng/mL Assessment and Plan Time with Patient: Less than 30
[2023-05-11] MEDS: PANTOPRAZOLE 40 MG/10 ML VIAL IVP SCH (20:51)
[2023-05-11] MEDS: DULoxetine HCL 30 MG CAPSULE.DR PO SCH (20:56)
[2023-05-12] MEDS: HYDROcodone/APAP 7.5-325MG 1 EACH TAB PO PRN ×4 (00:23→18:06)
[2023-05-12] MEDS: methylPREDNISolone SOD SUCCI 125 MG/2 ML VIAL IV SCH ×4 (04:24→19:27)
[2023-05-12] MEDS: ACETAMINOPHEN TAB 325 MG TAB PO PRN (04:24)
[2023-05-12] MEDS: AZITHROMYCIN 500 MG in SODIUM CHLORIDE 0.9% 250 ML IVPB SCH (04:28)
[2023-05-12 06:19] LABS: Basophils % (A) 0 %; Eosinophils % (A) 0 %; HCT 36.8 % (39.0-53.0); HGB 12.2 gm/dL (13.0-17.5); Lymphocytes # (A) 0.5 k/uL (1.0-4.8); Lymphocytes % (A) 3 %; MCHC 33.2 g/dL (31.0-37.0); MCV 90.3 fL (80.0-100.0); Mean Platelet Volume 8.6; Monocytes # (A) 0.5 k/uL (0-1.0); Monocytes % (A) 2 %; Neutrophils # (A) 19.3 k/uL (1.3-7.7); Neutrophils % (A) 95 %; Platelet Count 271 k/uL (150-450); RBC 4.08 m/uL (4.30-5.90); RDW 14.1 % (11.5-15.5); WBC 20.4 k/uL (3.8-10.6)
[2023-05-12 06:25] LABS: African American GFR (CKD) >90 (>60 ml/min/1.73 sqM); Anion Gap 13 mmol/L; Blood Urea Nitrogen 41 mg/dL (9-20); Calcium 8.6 mg/dL (8.4-10.2); Carbon Dioxide 23 mmol/L (22-30); Chloride 105 mmol/L (98-107); Glucose 114 mg/dL (74-99); Non-African American GFR(CKD) >90 (>60 ml/min/1.73 sqM); Sodium 141 mmol/L (137-145)
[2023-05-12] MEDS: FORMOTEROL FUMARATE 20 MCG/2 ML NEBU INHALATION SCH ×2 (07:35→20:24)
[2023-05-12] MEDS: BUDESONIDE 1 MG/2 ML NEBU INHALATION SCH ×2 (07:35→20:24)
[2023-05-12] MEDS: IPRATROPIUM-ALBUTEROL 3 ML NEB INHALATION SCH ×4 (07:35→20:24)
--- NOTE | 2023-05-12 08:13 | XR ---
EXAMINATION TYPE: XR chest 1V portable DATE OF EXAM: 05/12/2023 5:52 AM CLINICAL INDICATION:Male, 63 years old with history of Shortness of breath; [facility] COMPARISON: Chest radiograph from one day prior. TECHNIQUE: XR chest 1V portable Frontal view of the chest. FINDINGS: Lungs/Pleura: Similar multifocal airspace opacities. No evidence of pneumothorax or pleural effusion. Pulmonary vascularity: Unremarkable. Heart/mediastinum: Cardiomediastinal silhouette is unremarkable. Musculoskeletal: No acute osseous pathology. There is fixation hardware in the lower cervical spine. IMPRESSION: Similar multifocal airspace opacities.
[2023-05-12] MEDS: ENOXAPARIN 40 MG/0.4 ML SYRINGE SQ SCH (08:14)
[2023-05-12] MEDS: DULoxetine HCL 60 MG CAPSULE.DR PO SCH (08:14)
[2023-05-12] MEDS: NICOTINE 21MG/24HR PATCH TRANSDERM SCH (08:14)
[2023-05-12] MEDS: PANTOPRAZOLE 40 MG/10 ML VIAL IVP SCH ×2 (08:15→19:27)
[2023-05-12] MEDS ORDERED: PANTOPRAZOLE 40 MG/10 ML VIAL IV SCH (09:00)
[2023-05-12] MEDS: BACLOFEN 10 MG TAB PO PRN ×2 (10:51→18:06)
[2023-05-12] MEDS: SODIUM CHLORIDE 0.9% 1,000 ML IV SCH (10:52)
--- NOTE | 2023-05-12 11:01 | P.PN ---
Subjective Progress Note Date: 05/12/23 Principal diagnosis: Acute hypoxic respiratory failure secondary to acute exacerbation of COPD and acute community-acquired pneumonia I am seeing this patient in consultation today 05/10/2023 for acute COPD exacerbation. The patient is currently in the ER, room 19. He is a 63-year-old male with past medical history significant for COPD. Patient had a recent hospital admission back in February of this year for bilateral pneumonia. He continues to smoke one pack per day, reportedly quit 4 days ago. This is when he started becoming short of breath. Endorses a productive cough with brown sputum. Denies any fevers, chest pain, or hemoptysis. Denies sick contacts. He uses albuterol rescue inhaler on outpatient basis. He is currently sitting up in bed, on BiPAP, and in some respiratory distress. Settings 12/5 and FiO2 of 30%. respiratory rate in the high 20s, and generating good tidal volumes. The nurse tells me that he was quite obtunded on arrival. His mentation has improved, alert and able to answer my questions. He appears quite anxious. He is complaining of lower back pain, patient states this is chronic and he takes [place] for this at home. Chest x-ray on arrival shows marked improvement in the previously demonstrated bilateral infiltrates. CBC on arrival shows leukocytosis with a WBC count of 13.5, hemoglobin 13.1, hematocrit 39.8, platelets 267. BMP shows sodium 140, potassium 3.3, chloride 103, serum bicarb 19, BUN 13, creatinine 0.75, glucose 118. Lactic acid level is elevated at 5.5. Normal saline is infusing at 75 mL per hour. He is empirically started on antibiotics. Also, has received loading dose of steroids and multiple DuoNeb nebulizations. Patient will be monitored on the cardiac stepdown unit once bed available. Reevaluated today on 05/11/2023, patient remains in the ICU, he was on BiPAP overnight 12/5/40%, however at 6 AM in the morning the patient was transitioned to a nasal cannula at 2 L. Patient was also on Precedex overnight and this was discontinued at 6 AM this morning. Chest x-ray is basically about the same, continues to show bilateral airspace disease. His echocardiogram came back basically unremarkable his Procrit the level was noted to be elevated BNP level is pending patient did diurese significantly yesterday with one dose of Lasix. Patient remains on Rocephin and Zithromax for now. Patient is definitely more comfortable today compared to yesterday but nonetheless on physical examination continues to have diffuse rhonchi and wheezes bilaterally. Again his chest x- ray may be a bit worse compared to the chest x-ray noted yesterday. CBC showed leukocytosis with WBC count of 22.4 hemoglobin is 11.4 basic metabolic profile is normal renal profile is normal ABG yesterday showed a pO2 of 64 pCO2 40 pH of 7.34 BNP level is slightly elevated and pro-calcitonin level is elevated. 1.28 Reevaluated today on 05/12/2023, she remains in the ICU, he was on BiPAP overnight 05/01/40%, he is now on 2 L nasal cannula, feeling better, breathing easier, nonetheless on physical examination continues to have diffuse expiratory rhonchi and wheezes, but much improved compared to admission status. Continues to have leukocytosis but improving with WBC 20.4 hemoglobin is 12.2. Electrolytes are normal and renal profile is normal BNP level is borderline elevated. he on level on this admission is 1.28. Chest x-ray continues to show evidence of multifocal airspace opacity/multifocal pneumonia Objective - Vital Signs Vital signs: Vital Signs Temp 97.7 F 05/12/23 08:00 Pulse 83 05/12/23 09:00 Resp 17 05/12/23 09:00 BP 131/88 05/12/23 09:00 Pulse Ox 98 05/12/23 09:00 FiO2 40 05/12/23 00:18 Intake & Output 05/11/23 05/12/23 05/12/23 18:59 06:59 18:59 Intake Total 120 430 20 Output Total 1285 705 130 Balance -1165 -275 -110 Weight 72.6 kg Intake: IV 120 430 20 0.9 120 130 20 Azithromycin 500 mg In 250 Sodium Chloride 0.9% 250 ml @ 250 mls/hr IVPB Q24H [facility] Rx#:[id number] cefTRIAXone 2 gm In 50 Sodium Chloride 0.9% 50 ml @ 100 mls/hr IVPB Q24HR@0600 [facility] Rx#: [id number] Output: Urine 1285 705 130 Other: Voiding Method Indwelling Catheter Indwelling Catheter Indwelling Catheter - Exam Physical Exam: Revealed a 63-year-old white male in no distress, on 2 L nasal cannula Head: Atraumatic normocephalic HEENT:[Neck is supple.] [No neck masses.] [No thyromegaly.] [No JVD.] Chest: [Rhonchi and wheezes noted bilaterally. Improving compared to yesterday noted to be more so on forced expiratory maneuver. Cardiac Exam: [Normal S1 and S2, no S3 gallop, no murmur.] Abdomen: [Soft, nontender, no megaly, no rebound, no guarding, normal bowel sounds.] Extremities: [No clubbing, no edema, no cyanosis.] Neurological Exam: [No focal neurologic deficit.] Psychiatric: Normal mood affect and normal mental status examination. Skin: No rashes. - Labs CBC & Chem 7: 05/12/23 05:07 05/12/23 05:07 Labs: Abnormal Lab Results - Last 24 Hours (Table) 05/12/23 05/12/23 Range/Units 05:07 05:07 WBC 20.4 H (3.8-10.6) k/uL RBC 4.08 L (4.30-5.90) m/uL Hgb 12.2 L (13.0-17.5) gm/dL Hct 36.8 L (39.0-53.0) % Neutrophils # 19.3 H (1.3-7.7) k/uL Lymphocytes # 0.5 L (1.0-4.8) k/uL BUN 41 H (9-20) mg/dL Glucose 114 H (74-99) mg/dL Microbiology - Last 24 Hours (Table) 05/10/23 04:15 Blood Culture - Preliminary Blood 05/10/23 04:00 Blood Culture - Preliminary Blood Assessment and Plan Assessment: Impression: Acute hypoxic respiratory failure, multifactorial Acute community-acquired pneumonia, multifocal pneumonia Acute exacerbation of COPD Leukocytosis secondary to pneumonia and COPD exacerbation Suspect sepsis secondary to pneumonia Accommodation: Continue to monitor the patient in the ICU for the next 24 hours Continue antibiotics Rocephin/Zithromax Continue DuoNeb, Pulmicort and Perforomist Continue Solu-Medrol No need for Precedex at this point. Use BiPAP if necessary GI and DVT prophylaxis DVT prophylaxis Advanced diet. Will follow Time with Patient: Less than 30
--- NOTE | 2023-05-12 13:14 | P.PN ---
Subjective Progress Note Date: 05/12/23 Patient is 63-year-old male came into hospital with the complaints of cough was admitted for COPD etc. she was on BiPAP. When I evaluated the patient patient is in respiratory distress with respiratory rate of around 33 and patient was shaking and unable to get much of the history from the patient patient admits to drinking on daily basis unknown exactly how much that he drinks alcohol level is not available at this time. Patient had an ABG on BiPAP which showed pH of 7.2 lactic acidosis pCO2 of 41 saturating at 99% and pO2 of around 235. Patient has significant wheezing was started on systemic steroids inhalational treatments. Chest x-ray did not show any pneumonia no other clear evidence of infection patient does have leukocytosis with white blood cell count of 13.5 highly elevated lactic acid on admission presently 5.5 lactic acid patient is receiving 75 mL of normal saline. Blood cultures were obtained patient is presently on Rocephin and azithromycin which will be continued. 05/11/2023 Patient is evaluated today in the intensive care unit. States he feels less short of breath today. Off IV precedex and does not appear to be withdrawling at this time. Does have tremors at baseline mostly with movement. Repeat chest xray showing borderline cardiomegaly with worsening patchy and confluent airspace particularity in the upper and midlungs. Echocardiogram comes back at EF 60-65% mild TR. Continues on IV ceftriaxone and IV azithromycin, additionally she is on IV solu-medrol. White count today 22.4, hgb 11.4, sodium 140, potassium 4.8, BUN 30, creatinine 9.3, LFTs normal. He did have a proBNP done today at 2910. He remains on 2L nasal cannula with oxygen 94%. 05/12/2023 Patient remains in the intensive care unit. He feels less short of breath. He remains on 3 L of oxygen and he does wear oxygen at home. States he tolerated the BiPAP overnight for about 3 hours. He has not required Precedex overnight and does not appear to be withdrawing at this time. His appetite has increased. White count remains elevated at 20.4 today. Blood cultures remain negative. He has been afebrile. He continues on a combination of IV ceftriaxone IV Solu- Medrol, inhaled steroids and bronchodilators. Review of Systems Constitutional: Denied any fatigue denied any fever. Cardio vascular: denied any chest pain, palpitations Gastrointestinal: denied any nausea, vomiting, diarrhea Pulmonary: Reports shortness of breath, no cough. Neurologic denied any new focal deficits Reports tremoring. All inpatient medications were reviewed and appropriate changes in these medications as dictated in the interval history and assessment and plan. PHYSICAL EXAMINATION: GENERAL: The patient is alert and oriented x3, not in any acute distress. Well developed, well nourished. HEENT: Pupils are round and equally reacting to light. EOMI. No scleral icterus. No conjunctival pallor. Normocephalic, atraumatic. No pharyngeal erythema. No thyromegaly. CARDIOVASCULAR: S1 and S2 present. No murmurs, rubs, or gallops. PULMONARY: Chest is clear to auscultation, no wheezing or crackles. ABDOMEN: Soft, nontender, nondistended, normoactive bowel sounds. No palpable organomegaly. MUSCULOSKELETAL: No joint swelling or deformity. EXTREMITIES: No cyanosis, clubbing, or pedal edema. NEUROLOGICAL: Gross neurological examination did not reveal any focal deficits. Patient has tremors at baseline with movement bilateral upper and lower extremities SKIN: No rashes. Assessment and plan -Acute respiratory failure secondary to COPD exacerbation patient has hypercapnic respiratory failure which he improved with BiPAP he continues on systemic and inhaled steroids -Possible alcohol withdrawal patient will be on Ativan CIWA withdrawal protocol and patient was given IV precedex which has been discontinued at this time. Continue to monitor closely for alcohol withdrawal. -Lactic acidosis from sepsis resolved. -Acute community acquired pneumonia and sepsis POA with elevated procalcitonin level patient is continued on ceftriaxone. He has completed course of azithromycin. -Continued nicotine use -Chronic back pain receiving Dilaudid every 4 hours as well as norco and tylenol for the back pain. -Natriuretic hypokalemia: Normalized. -Chronic ongoing nicotine use and alcohol use DVT prophylaxis: Lovenox GI prophylaxis: Full Code Plan Patient will remain in the intensive care unit with recommendations for BiPAP and precedex if needed for acute alcohol withdrawal symptoms. Remains on antibiotics and inhaled and systemic steroids. PT/OT consultation and also repeat labs in the AM. The impression and plan of care has been dictated by Loreta Hough Nurse Practitioner as directed. Dr. Jaz MD I have performed a history and physical examination and medical decision making of this patient, discussed the same with the dictator, and agree with the dictators assessment and plan as written, documented as a scribe. Based on total visit time, I have performed more than 50% of this visit. Objective - Vital Signs Vital signs: Vital Signs Temp 97.7 F 05/12/23 08:00 Pulse 86 05/12/23 08:00 Resp 20 05/12/23 08:00 BP 141/92 05/12/23 08:00 Pulse Ox 94 L 05/12/23 08:00 FiO2 40 05/12/23 00:18 Intake & Output 05/11/23 05/12/23 05/12/23 18:59 06:59 18:59 Intake Total 120 430 10 Output Total 1285 705 80 Balance -1165 -275 -70 Weight 72.6 kg Intake: IV 120 430 10 0.9 120 130 10 Azithromycin 500 mg In 250 Sodium Chloride 0.9% 250 ml @ 250 mls/hr IVPB Q24H [facility] Rx#:[id number] cefTRIAXone 2 gm In 50 Sodium Chloride 0.9% 50 ml @ 100 mls/hr IVPB Q24HR@0600 [facility] Rx#: [id number] Output: Urine 1285 705 80 Other: Voiding Method Indwelling Catheter Indwelling Catheter Indwelling Catheter - Labs CBC & Chem 7: 05/12/23 05:07 05/12/23 05:07 Labs: Abnormal Lab Results - Last 24 Hours (Table) 05/12/23 05/12/23 Range/Units 05:07 05:07 WBC 20.4 H (3.8-10.6) k/uL RBC 4.08 L (4.30-5.90) m/uL Hgb 12.2 L (13.0-17.5) gm/dL Hct 36.8 L (39.0-53.0) % Neutrophils # 19.3 H (1.3-7.7) k/uL Lymphocytes # 0.5 L (1.0-4.8) k/uL BUN 41 H (9-20) mg/dL Glucose 114 H (74-99) mg/dL Microbiology - Last 24 Hours (Table) 05/10/23 04:15 Blood Culture - Preliminary Blood 05/10/23 04:00 Blood Culture - Preliminary Blood Assessment and Plan Time with Patient: Less than 30
[2023-05-12] MEDS: ALPRAZolam 0.5 MG TAB PO PRN (19:27)
[2023-05-12] MEDS: DULoxetine HCL 30 MG CAPSULE.DR PO SCH (21:15)
[2023-05-13] MEDS: HYDROcodone/APAP 7.5-325MG 1 EACH TAB PO PRN ×4 (00:09→20:23)
[2023-05-13] MEDS: BACLOFEN 10 MG TAB PO PRN ×3 (03:11→21:04)
[2023-05-13 03:46] LABS: Basophils % (A) 0 %; Eosinophils # (A) 0.1 k/uL (0-0.7); Eosinophils % (A) 1 %; HCT 36.8 % (39.0-53.0); Lymphocytes # (A) 0.5 k/uL (1.0-4.8); Lymphocytes % (A) 3 %; MCH 29.6 pg (25.0-35.0); MCHC 32.7 g/dL (31.0-37.0); MCV 90.7 fL (80.0-100.0); Mean Platelet Volume 8.5; Monocytes # (A) 0.5 k/uL (0-1.0); Monocytes % (A) 3 %; Neutrophils # (A) 17.1 k/uL (1.3-7.7); Neutrophils % (A) 93 %; Platelet Count 238 k/uL (150-450); RBC 4.06 m/uL (4.30-5.90); RDW 13.9 % (11.5-15.5); WBC 18.3 k/uL (3.8-10.6)
[2023-05-13 03:58] LABS: African American GFR (CKD) >90 (>60 ml/min/1.73 sqM); Anion Gap 6 mmol/L; Blood Urea Nitrogen 33 mg/dL (9-20); Calcium 8.6 mg/dL (8.4-10.2); Carbon Dioxide 25 mmol/L (22-30); Chloride 108 mmol/L (98-107); Glucose 145 mg/dL (74-99); Non-African American GFR(CKD) >90 (>60 ml/min/1.73 sqM); Potassium 3.9 mmol/L (3.5-5.1); Sodium 139 mmol/L (137-145)
[2023-05-13] MEDS: methylPREDNISolone SOD SUCCI 125 MG/2 ML VIAL IV SCH ×4 (04:06→21:04)
[2023-05-13] MEDS: IPRATROPIUM-ALBUTEROL 3 ML NEB INHALATION SCH ×4 (07:31→20:04)
[2023-05-13] MEDS: BUDESONIDE 1 MG/2 ML NEBU INHALATION SCH ×2 (07:31→20:04)
[2023-05-13] MEDS: FORMOTEROL FUMARATE 20 MCG/2 ML NEBU INHALATION SCH ×2 (07:31→20:04)
--- NOTE | 2023-05-13 08:04 | XR ---
EXAMINATION TYPE: XR chest 1V DATE OF EXAM: 05/13/2023 5:22 AM CLINICAL INDICATION:Male, 63 years old with history of shortness of breath; H COMPARISON: Chest radiograph from one day prior. TECHNIQUE: XR chest 1V Frontal view of the chest. FINDINGS: Lungs/Pleura: Similar multifocal airspace opacities. No evidence of pneumothorax or pleural effusion. Pulmonary vascularity: Unremarkable. Heart/mediastinum: Cardiomediastinal silhouette is unremarkable. Musculoskeletal: No acute osseous pathology. There is fixation hardware in the lower cervical spine. IMPRESSION: Similar multifocal airspace opacities.
[2023-05-13] MEDS: PANTOPRAZOLE 40 MG/10 ML VIAL IVP SCH ×2 (08:39→20:23)
[2023-05-13] MEDS: ENOXAPARIN 40 MG/0.4 ML SYRINGE SQ SCH (08:39)
[2023-05-13] MEDS: DULoxetine HCL 30 MG CAPSULE.DR PO SCH (08:40)
[2023-05-13] MEDS: SODIUM CHLORIDE 0.9% 1,000 ML IV SCH (08:43)
[2023-05-13] MEDS: DULoxetine HCL 60 MG CAPSULE.DR PO SCH (09:01)
[2023-05-13] MEDS: NICOTINE 21MG/24HR PATCH TRANSDERM SCH (09:01)
[2023-05-13] MEDS: ACETAMINOPHEN TAB 325 MG TAB PO PRN (09:18)
[2023-05-13] MEDS: ALPRAZolam 0.5 MG TAB PO PRN (09:21)
--- NOTE | 2023-05-13 10:28 | P.PN ---
Subjective Progress Note Date: 05/13/23 Principal diagnosis: Acute hypoxic respiratory failure secondary to acute exacerbation of COPD and acute community-acquired pneumonia I am seeing this patient in consultation today 05/10/2023 for acute COPD exacerbation. The patient is currently in the ER, room 19. He is a 63-year-old male with past medical history significant for COPD. Patient had a recent hospital admission back in February of this year for bilateral pneumonia. He continues to smoke one pack per day, reportedly quit 4 days ago. This is when he started becoming short of breath. Endorses a productive cough with brown sputum. Denies any fevers, chest pain, or hemoptysis. Denies sick contacts. He uses albuterol rescue inhaler on outpatient basis. He is currently sitting up in bed, on BiPAP, and in some respiratory distress. Settings 12/5 and FiO2 of 30%. respiratory rate in the high 20s, and generating good tidal volumes. The nurse tells me that he was quite obtunded on arrival. His mentation has improved, alert and able to answer my questions. He appears quite anxious. He is complaining of lower back pain, patient states this is chronic and he takes [employer] for this at home. Chest x-ray on arrival shows marked improvement in the previously demonstrated bilateral infiltrates. CBC on arrival shows leukocytosis with a WBC count of 13.5, hemoglobin 13.1, hematocrit 39.8, platelets 267. BMP shows sodium 140, potassium 3.3, chloride 103, serum bicarb 19, BUN 13, creatinine 0.75, glucose 118. Lactic acid level is elevated at 5.5. Normal saline is infusing at 75 mL per hour. He is empirically started on antibiotics. Also, has received loading dose of steroids and multiple DuoNeb nebulizations. Patient will be monitored on the cardiac stepdown unit once bed available. Reevaluated today on 05/11/2023, patient remains in the ICU, he was on BiPAP overnight 12/5/40%, however at 6 AM in the morning the patient was transitioned to a nasal cannula at 2 L. Patient was also on Precedex overnight and this was discontinued at 6 AM this morning. Chest x-ray is basically about the same, continues to show bilateral airspace disease. His echocardiogram came back basically unremarkable his Procrit the level was noted to be elevated BNP level is pending patient did diurese significantly yesterday with one dose of Lasix. Patient remains on Rocephin and Zithromax for now. Patient is definitely more comfortable today compared to yesterday but nonetheless on physical examination continues to have diffuse rhonchi and wheezes bilaterally. Again his chest x- ray may be a bit worse compared to the chest x-ray noted yesterday. CBC showed leukocytosis with WBC count of 22.4 hemoglobin is 11.4 basic metabolic profile is normal renal profile is normal ABG yesterday showed a pO2 of 64 pCO2 40 pH of 7.34 BNP level is slightly elevated and pro-calcitonin level is elevated. 1.28 Reevaluated today on 05/12/2023, she remains in the ICU, he was on BiPAP overnight 05/01/40%, he is now on 2 L nasal cannula, feeling better, breathing easier, nonetheless on physical examination continues to have diffuse expiratory rhonchi and wheezes, but much improved compared to admission status. Continues to have leukocytosis but improving with WBC 20.4 hemoglobin is 12.2. Electrolytes are normal and renal profile is normal BNP level is borderline elevated. he on level on this admission is 1.28. Chest x-ray continues to show evidence of multifocal airspace opacity/multifocal pneumonia Reevaluated today on 05/13/2023, remains in the ICU, patient is doing well, he is now on 3 L of nasal cannula, not in any distress. Remains on bronchodilators, antibiotics, and steroids, he is afebrile, blood pressure is 153/117 heart rate is a 80,O2 saturation is 93% on 2 L. chest x-ray is showing multifocal airspace disease slight improvement is noted. Continues to have leukocytosis but improving with WBC count down to 18.3 basic metabolic profile is normal renal profile is normal patient is receiving Rocephin and Zithromax, is also receiving DuoNeb updrafts, methylprednisolone, Pulmicort and Perforomist. Objective - Vital Signs Vital signs: Vital Signs Temp 98.0 F 05/13/23 08:00 Pulse 92 05/13/23 08:01 Resp 18 05/13/23 08:00 BP 153/117 05/13/23 08:00 Pulse Ox 93 L 05/13/23 08:00 FiO2 40 05/12/23 00:18 Intake & Output 05/12/23 05/13/23 05/13/23 18:59 06:59 18:59 Intake Total 1010 420 10 Output Total 555 600 300 Balance 455 -180 -290 Weight 73 kg Intake: IV 110 120 10 0.9 110 120 10 Oral 900 300 Output: Urine 540 600 300 Post Void Residual 15 Other: Voiding Method Urinal Urinal - Exam Physical Exam: Revealed a 63-year-old white male in no distress, on 2 L nasal cannula, O2 saturation 93% Head: Atraumatic normocephalic HEENT:[Neck is supple.] [No neck masses.] [No thyromegaly.] [No JVD.] Chest: [Rhonchi and wheezes, steadily improving compared to findings on admission. Cardiac Exam: [Normal S1 and S2, no S3 gallop, no murmur.] Abdomen: [Soft, nontender, no megaly, no rebound, no guarding, normal bowel sounds.] Extremities: [No clubbing, no edema, no cyanosis.] Neurological Exam: [No focal neurologic deficit.] Psychiatric: Normal mood affect and normal mental status examination. Skin: No rashes. - Labs CBC & Chem 7: 05/13/23 03:05 05/13/23 03:05 Labs: Abnormal Lab Results - Last 24 Hours (Table) 05/13/23 05/13/23 Range/Units 03:05 03:05 WBC 18.3 H (3.8-10.6) k/uL RBC 4.06 L (4.30-5.90) m/uL Hgb 12.0 L (13.0-17.5) gm/dL Hct 36.8 L (39.0-53.0) % Neutrophils # 17.1 H (1.3-7.7) k/uL Lymphocytes # 0.5 L (1.0-4.8) k/uL Chloride 108 H (98-107) mmol/L BUN 33 H (9-20) mg/dL Glucose 145 H (74-99) mg/dL Microbiology - Last 24 Hours (Table) 05/10/23 04:15 Blood Culture - Preliminary Blood 05/10/23 04:00 Blood Culture - Preliminary Blood Assessment and Plan Assessment: Impression: Acute hypoxic respiratory failure, multifactorial Acute community-acquired pneumonia, multifocal pneumonia Acute exacerbation of COPD Leukocytosis secondary to pneumonia and COPD exacerbation Acute sepsis secondary to pneumonia Accommodation: Transfer patient out of the ICU to a regular medical floor Continue antibiotics Rocephin/Zithromax Continue DuoNeb, Pulmicort and Perforomist Continue Solu-Medrol but consider transitioning to prednisone orally tomorrow Use BiPAP if necessary Continue GI and DVT prophylaxis Will follow Time with Patient: Less than 30
--- NOTE | 2023-05-13 13:07 | P.PN ---
Subjective Progress Note Date: 05/13/23 Patient is 63-year-old male came into hospital with the complaints of cough was admitted for COPD etc. she was on BiPAP. When I evaluated the patient patient is in respiratory distress with respiratory rate of around 33 and patient was shaking and unable to get much of the history from the patient patient admits to drinking on daily basis unknown exactly how much that he drinks alcohol level is not available at this time. Patient had an ABG on BiPAP which showed pH of 7.2 lactic acidosis pCO2 of 41 saturating at 99% and pO2 of around 235. Patient has significant wheezing was started on systemic steroids inhalational treatments. Chest x-ray did not show any pneumonia no other clear evidence of infection patient does have leukocytosis with white blood cell count of 13.5 highly elevated lactic acid on admission presently 5.5 lactic acid patient is receiving 75 mL of normal saline. Blood cultures were obtained patient is presently on Rocephin and azithromycin which will be continued. 05/11/2023 Patient is evaluated today in the intensive care unit. States he feels less short of breath today. Off IV precedex and does not appear to be withdrawling at this time. Does have tremors at baseline mostly with movement. Repeat chest xray showing borderline cardiomegaly with worsening patchy and confluent airspace particularity in the upper and midlungs. Echocardiogram comes back at EF 60-65% mild TR. Continues on IV ceftriaxone and IV azithromycin, additionally she is on IV solu-medrol. White count today 22.4, hgb 11.4, sodium 140, potassium 4.8, BUN 30, creatinine 9.3, LFTs normal. He did have a proBNP done today at 2910. He remains on 2L nasal cannula with oxygen 94%. 05/12/2023 Patient remains in the intensive care unit. He feels less short of breath. He remains on 3 L of oxygen and he does wear oxygen at home. States he tolerated the BiPAP overnight for about 3 hours. He has not required Precedex overnight and does not appear to be withdrawing at this time. His appetite has increased. White count remains elevated at 20.4 today. Blood cultures remain negative. He has been afebrile. He continues on a combination of IV ceftriaxone IV Solu- Medrol, inhaled steroids and bronchodilators. 05/13/2023 Patient has been downgraded from the intensive care unit to medical floor. He continues to report feeling less short of breath. He is evaluated today sitting up at the edge of the bed. He remains on nasal cannula at 3 L. He has no signs of acute alcohol withdrawal at this time. His white count is improving down to 18.3. He remains on IV Rocephin and IV Solu-Medrol. His chest x-ray today shows similar multifocal airspace opacities. Review of Systems Constitutional: Denied any fatigue denied any fever. Cardio vascular: denied any chest pain, palpitations Gastrointestinal: denied any nausea, vomiting, diarrhea Pulmonary: Reports shortness of breath, no cough. Neurologic denied any new focal deficits Reports tremoring. All inpatient medications were reviewed and appropriate changes in these medications as dictated in the interval history and assessment and plan. PHYSICAL EXAMINATION: GENERAL: The patient is alert and oriented x3, not in any acute distress. Well developed, well nourished. HEENT: Pupils are round and equally reacting to light. EOMI. No scleral icterus. No conjunctival pallor. Normocephalic, atraumatic. No pharyngeal erythema. No thyromegaly. CARDIOVASCULAR: S1 and S2 present. No murmurs, rubs, or gallops. PULMONARY: Chest is clear to auscultation, no wheezing or crackles. ABDOMEN: Soft, nontender, nondistended, normoactive bowel sounds. No palpable organomegaly. MUSCULOSKELETAL: No joint swelling or deformity. EXTREMITIES: No cyanosis, clubbing, or pedal edema. NEUROLOGICAL: Gross neurological examination did not reveal any focal deficits. Patient has tremors at baseline with movement bilateral upper and lower extremities SKIN: No rashes. Assessment and plan -Acute respiratory failure secondary to COPD exacerbation patient has hypercapnic respiratory failure which he improved with BiPAP he continues on systemic and inhaled steroids -Possible alcohol withdrawal patient will be on Ativan CIWA withdrawal protocol and patient was given IV precedex which has been discontinued at this time. Continue to monitor closely for alcohol withdrawal. -Lactic acidosis from sepsis resolved. -Acute community acquired pneumonia and sepsis POA with elevated procalcitonin level patient is continued on ceftriaxone. He has completed course of azithromycin. -Continued nicotine use -Chronic back pain receiving Dilaudid every 4 hours as well as norco and tylenol for the back pain. -Natriuretic hypokalemia: Normalized. -Chronic ongoing nicotine use and alcohol use DVT prophylaxis: Lovenox GI prophylaxis: Full Code Plan Patient was transferred out of the intensive care unit. He remains on IV steroids and IV Rocephin. He will work with PT OT on Sunday. Repeat labs in AM. The impression and plan of care has been dictated by Loreta Hough, Nurse Practitioner as directed. Dr. Jaz MD I have performed a history and physical examination and medical decision making of this patient, discussed the same with the dictator, and agree with the dictators assessment and plan as written, documented as a scribe. Based on total visit time, I have performed more than 50% of this visit. Objective - Vital Signs Vital signs: Vital Signs Temp 97.4 F L 05/13/23 12:00 Pulse 89 05/13/23 12:00 Resp 16 05/13/23 12:00 BP 159/99 05/13/23 12:00 Pulse Ox 95 05/13/23 12:00 FiO2 40 05/12/23 00:18 Intake & Output 05/12/23 05/13/23 05/13/23 18:59 06:59 18:59 Intake Total 1010 420 50 Output Total 555 600 500 Balance 455 -180 -450 Weight 73 kg Intake: IV 110 120 50 0.9 110 120 50 Oral 900 300 Output: Urine 540 600 500 Post Void Residual 15 Other: Voiding Method Urinal Urinal Urinal - Labs CBC & Chem 7: 05/13/23 03:05 05/13/23 03:05 Labs: Abnormal Lab Results - Last 24 Hours (Table) 05/13/23 05/13/23 Range/Units 03:05 03:05 WBC 18.3 H (3.8-10.6) k/uL RBC 4.06 L (4.30-5.90) m/uL Hgb 12.0 L (13.0-17.5) gm/dL Hct 36.8 L (39.0-53.0) % Neutrophils # 17.1 H (1.3-7.7) k/uL Lymphocytes # 0.5 L (1.0-4.8) k/uL Chloride 108 H (98-107) mmol/L BUN 33 H (9-20) mg/dL Glucose 145 H (74-99) mg/dL Microbiology - Last 24 Hours (Table) 05/10/23 04:15 Blood Culture - Preliminary Blood 05/10/23 04:00 Blood Culture - Preliminary Blood Assessment and Plan Time with Patient: Less than 30
[2023-05-13] MEDS: amLODIPine 5 MG TAB PO SCH (13:41)
[2023-05-13] MEDS: TAMSULOSIN 0.4 MG CAP.ER.24H PO SCH (13:42)
[2023-05-14] MEDS: HYDROcodone/APAP 7.5-325MG 1 EACH TAB PO PRN ×3 (05:24→18:50)
[2023-05-14] MEDS: methylPREDNISolone SOD SUCCI 125 MG/2 ML VIAL IV SCH ×2 (05:24→09:43)
[2023-05-14] MEDS: FORMOTEROL FUMARATE 20 MCG/2 ML NEBU INHALATION SCH (08:00)
[2023-05-14] MEDS: IPRATROPIUM-ALBUTEROL 3 ML NEB INHALATION SCH ×4 (08:00→20:22)
[2023-05-14] MEDS: BUDESONIDE 1 MG/2 ML NEBU INHALATION SCH (08:00)
[2023-05-14] MEDS: DULoxetine HCL 60 MG CAPSULE.DR PO SCH (08:01)
[2023-05-14] MEDS: amLODIPine 5 MG TAB PO SCH (08:01)
[2023-05-14] MEDS: PANTOPRAZOLE 40 MG/10 ML VIAL IVP SCH ×2 (08:01→21:02)
[2023-05-14] MEDS: TAMSULOSIN 0.4 MG CAP.ER.24H PO SCH (08:01)
[2023-05-14] MEDS: BACLOFEN 10 MG TAB PO PRN ×2 (08:01→15:07)
[2023-05-14] MEDS: NICOTINE 21MG/24HR PATCH TRANSDERM SCH (08:01)
[2023-05-14] MEDS: ENOXAPARIN 40 MG/0.4 ML SYRINGE SQ SCH (08:01)
[2023-05-14 09:00] LABS: Basophils # (A) 0.01 X 10*3/uL (0.00-0.10); Basophils % (A) 0.1 %; Eosinophils # (A) 0 X 10*3/uL (0.04-0.35); Eosinophils % (A) 0 %; HCT 37.3 % (39.6-50.0); HGB 11.9 g/dL (13.0-17.0); Lymphocytes # (A) 0.69 X 10*3/uL (0.90-5.00); MCH 28.6 pg (27.0-32.0); MCHC 31.9 g/dL (32.0-37.0); MCV 89.7 FL (80.0-97.0); Mean Platelet Volume 10.7 FL (9.5-12.2); Monocytes # (A) 0.68 X 10*3/uL (0.20-1.00); Monocytes % (A) 4.9 %; NRBC Per 100 WBC 0 X 10*3/uL (0.00-0.01); Neutrophils % (A) 88.8 %; Platelet Count 236 X 10*3/uL (140-440); RBC 4.16 X 10*6/uL (4.40-5.60); RDW 14.2 % (11.5-14.5); WBC 13.74 X 10*3/uL (4.50-10.00)
--- NOTE | 2023-05-14 09:03 | XR ---
EXAMINATION TYPE: XR chest 1V DATE OF EXAM: 05/14/2023 7:21 AM CLINICAL INDICATION:Male, 63 years old with history of shortness of breath; [facility] COMPARISON: 05/13/2023 and before TECHNIQUE: XR chest 1V Frontal view of the chest. FINDINGS: Lines/Tubes/Devices: None. Heart/mediastinum: Cardiomediastinal silhouette is well defined and stable. Heart appears mildly enl arged. Mediastinum appears unchanged. Pulmonary vascularity: Not increased, Lungs/Pleura: Mild diffuse coarsening of the interstitium, likely chronic changes, stable by comparis on. Vague patchy airspace opacities suggesting groundglass infiltrates which were greatest in the lef t mid to upper lung zone and to lesser degree right upper lung zone, show slight interval improvement . No new or worsening infiltrate, sizable effusion, or pneumothorax is seen. Musculoskeletal: No acute osseous abnormality demonstrated in the limits of the exam. Mild degenerat maxwell changes of the shoulders and spine. There is fixation hardware redemonstrated in the lower cervic al spine. Other findings: None. IMPRESSION: Vague patchy airspace opacities suggesting groundglass infiltrates which were greatest in the left mi d to upper lung zone and to a lesser degree right upper lung zone, show slight interval improvement.
[2023-05-14] MEDS: ACETAMINOPHEN TAB 325 MG TAB PO PRN (09:44)
[2023-05-14] MEDS: SODIUM CHLORIDE 0.9% 1,000 ML IV SCH (11:31)
--- NOTE | 2023-05-14 15:06 | P.PN ---
Subjective Progress Note Date: 05/14/23 Principal diagnosis: COPD exacerbation. I am seeing this patient in consultation today 05/10/2023 for acute COPD exacerbation. The patient is currently in the ER, room 19. He is a 63-year-old male with past medical history significant for COPD. Patient had a recent hospital admission back in February of this year for bilateral pneumonia. He continues to smoke one pack per day, reportedly quit 4 days ago. This is when he started becoming short of breath. Endorses a productive cough with brown sputum. Denies any fevers, chest pain, or hemoptysis. Denies sick contacts. He uses albuterol rescue inhaler on outpatient basis. He is currently sitting up in bed, on BiPAP, and in some respiratory distress. Settings 12/5 and FiO2 of 30%. respiratory rate in the high 20s, and generating good tidal volumes. The nurse tells me that he was quite obtunded on arrival. His mentation has improved, alert and able to answer my questions. He appears quite anxious. He is complaining of lower back pain, patient states this is chronic and he takes [place] for this at home. Chest x-ray on arrival shows marked improvement in the previously demonstrated bilateral infiltrates. CBC on arrival shows leukocytosis with a WBC count of 13.5, hemoglobin 13.1, hematocrit 39.8, platel ets 267. BMP shows sodium 140, potassium 3.3, chloride 103, serum bicarb 19, BUN 13, creatinine 0.75, glucose 118. Lactic acid level is elevated at 5.5. Normal saline is infusing at 75 mL per hour. He is empirically started on antibiotics. Also, has received loading dose of steroids and multiple DuoNeb nebulizations. Patient will be monitored on the cardiac stepdown unit once bed available. Reevaluated today on 05/11/2023, patient remains in the ICU, he was on BiPAP overnight 12//40%, however at 6 AM in the morning the patient was transitioned to a nasal cannula at 2 L. Patient was also on Precedex overnight and this was discontinued at 6 AM this morning. Chest x-ray is basically about the same, continues to show bilateral airspace disease. His echocardiogram came back basically unremarkable his Procrit the level was noted to be elevated BNP level is pending patient did diurese significantly yesterday with one dose of Lasix. Patient remains on Rocephin and Zithromax for now. Patient is definitely more comfortable today compared to yesterday but nonetheless on physical examination continues to have diffuse rhonchi and wheezes bilaterally. Again his chest x- ray may be a bit worse compared to the chest x-ray noted yesterday. CBC showed leukocytosis with WBC count of 22.4 hemoglobin is 11.4 basic metabolic profile is normal renal profile is normal ABG yesterday showed a pO2 of 64 pCO2 40 pH of 7.34 BNP level is slightly elevated and pro-calcitonin level is elevated. 1.28 Reevaluated today on 05/12/2023, she remains in the ICU, he was on BiPAP overnight 12/5/40%, he is now on 2 L nasal cannula, feeling better, breathing easier, nonetheless on physical examination continues to have diffuse expiratory rhonchi and wheezes, but much improved compared to admission status. Continues to have leukocytosis but improving with WBC 20.4 hemoglobin is 12.2. Electrolyt es are normal and renal profile is normal BNP level is borderline elevated. he on level on this admission is 1.28. Chest x-ray continues to show evidence of multifocal airspace opacity/multifocal pneumonia Reevaluated today on 05/13/2023, remains in the ICU, patient is doing well, he is now on 3 L of nasal cannula, not in any distress. Remains on bronchodilators, antibiotics, and steroids, he is afebrile, blood pressure is 153/117 heart rate is a 80,O2 saturation is 93% on 2 L. chest x-ray is showing multifocal airspace disease slight improvement is noted. Continues to have leukocytosis but improving with WBC count down to 18.3 basic metabolic profile is normal renal profile is normal patient is receiving Rocephin and Zithromax, is also receiving DuoNeb updrafts, methylprednisolone, Pulmicort and Perforomist. Progress note dated 05/14/2023. The patient is seen today in room 460. The patient's currently on 2 L of oxygen. Patient is receiving saline at 20 mL an hour. The patient was in the ICU, and, was on BiPAP, with settings of 12/5, and 40%. I don't believe he is currently using BiPAP. Today, the Solu-Medrol was converted to prednisone orally, and budesonide and formoterol, or converted to Symbicort. White count 13.7, hemoglobin 11.9, hematocrit 37.3, and a normal platelet count is noted. Blood cultures are currently pending or negative. Patchy airspace opacities are noted in both lungs, left greater than right. Objective - Vital Signs Vital signs: Vital Signs Temp 98 F 05/14/23 13:30 Pulse 96 05/14/23 13:30 Resp 17 05/14/23 13:30 BP 155/85 05/14/23 13:30 Pulse Ox 98 05/14/23 13:30 FiO2 40 05/12/23 00:18 Intake & Output 05/13/23 05/14/23 05/14/23 18:59 06:59 18:59 Intake Total 920 500 Output Total 500 Balance 420 500 Weight 73.8 kg Intake: IV 80 0.9 80 Oral 840 500 Output: Urine 500 Other: Voiding Method Urinal # Voids 2 2 # Bowel Movements 1 - Exam No acute distress, oriented 3. Currently on 2 L of oxygen. No overt res piratory failure or distress. HEENT examination is grossly unremarkable. Neck supple. Full range of motion. No adenopathy thyromegaly or neck vein distention. Cardiovascular examination reveals regular rhythm rate. S1-S2 normal. No S3 or S4. No discernible murmur noted. Heart rate is 92 bpm. Lungs reveal bilateral rhonchi. No wheezes or crackles. Room air saturation is 98%. 2 L saturation is 99%. Abdomen soft bowel sounds are heard. No masses or tenderness. Extremities are intact. No cyanosis clubbing or edema. Skin is without rash or lesion. Neurologic examination is brief but nonfocal. - Labs CBC & Chem 7: 05/14/23 05:18 05/13/23 03:05 Labs: Abnormal Lab Results - Last 24 Hours (Table) 05/14/23 Range/Units 05:18 WBC 13.74 H (4.50-10.00) X 10*3/uL RBC 4.16 L (4.40-5.60) X 10*6/uL Hgb 11.9 L (13.0-17.0) g/dL Hct 37.3 L (39.6-50.0) % MCHC 31.9 L (32.0-37.0) g/dL Immature Gran # 0.16 H (0.00-0.04) X 10*3/uL Neutrophils # 12.20 H (1.80-7.70) X 10*3/uL Lymphocytes # 0.69 L (0.90-5.00) X 10*3/uL Eosinophils # 0 L (0.04-0.35) X 10*3/uL Microbiology - Last 24 Hours (Table) 05/10/23 04:15 Blood Culture - Preliminary Blood 05/10/23 04:00 Blood Culture - Preliminary Blood Assessment and Plan Assessment: Acute hypoxemic respiratory failure, secondary to bilateral multifocal pneumonia. Acute exacerbation of COPD. Acute sepsis, secondary to pneumonia. Plan: Plan dated 05/14/2023. The patient is seen today in room 460. The patient will continue on DuoNeb nebs, 4 times a day and when necessary. The Solu-Medrol was converted to prednisone, and the budesonide and formoterol combination is converted to Symbicort. Labs, x-rays, medications are reviewed. The patient's currently on 2 L of oxygen. He did not use BiPAP last night. I recently saw this patient in the hospital, in February. He never made it back to the office for complete pulmonary function testing. Additional recommendations and suggestions are forthcoming. He remains on Rocephin. Cultures are negative. Chest x-ray has been reviewed. Time with Patient: Less than 30
[2023-05-14] MEDS: SYMBICORT 160-4.5 MCG INHALER INHALATION SCH (20:22)
[2023-05-14] MEDS: DULoxetine HCL 30 MG CAPSULE.DR PO SCH (21:03)
--- NOTE | 2023-05-14 22:28 | P.PN ---
Subjective Progress Note Date: 05/14/23 Patient is 63-year-old male came into hospital with the complaints of cough was admitted for COPD etc. she was on BiPAP. When I evaluated the patient patient is in respiratory distress with respiratory rate of around 33 and patient was shaking and unable to get much of the history from the patient patient admits to drinking on daily basis unknown exactly how much that he drinks alcohol level is not available at this time. Patient had an ABG on BiPAP which showed pH of 7.2 lactic acidosis pCO2 of 41 saturating at 99% and pO2 of around 235. Patient has significant wheezing was started on systemic steroids inhalational treatments. Chest x-ray did not show any pneumonia no other clear evidence of infection patient does have leukocytosis with white blood cell count of 13.5 highly elevated lactic acid on admission presently 5.5 lactic acid patient is receiving 75 mL of normal saline. Blood cultures were obtained patient is presently on Rocephin and azithromycin which will be continued. 05/11/2023 Patient is evaluated today in the intensive care unit. States he feels less short of breath today. Off IV precedex and does not appear to be withdrawling at this time. Does have tremors at baseline mostly with movement. Repeat chest xray showing borderline cardiomegaly with worsening patchy and confluent airspace particularity in the upper and midlungs. Echocardiogram comes back at EF 60-65% mild TR. Continues on IV ceftriaxone and IV azithromycin, additionally she is on IV solu-medrol. White count today 22.4, hgb 11.4, sodium 140, potassium 4.8, BUN 30, creatinine 9.3, LFTs normal. He did have a proBNP done today at 2910. He remains on 2L nasal cannula with oxygen 94%. 05/12/2023 Patient remains in the intensive care unit. He feels less short of breath. He remains on 3 L of oxygen and he does wear oxygen at home. States he tolerated the BiPAP overnight for about 3 hours. He has not required Precedex overnight and does not appear to be withdrawing at this time. His appetite has increased. White count remains elevated at 20.4 today. Blood cultures remain negative. He has been afebrile. He continues on a combination of IV ceftriaxone IV Solu- Medrol, inhaled steroids and bronchodilators. 05/13/2023 Patient has been downgraded from the intensive care unit to medical floor. He continues to report feeling less short of breath. He is evaluated today sitting up at the edge of the bed. He remains on nasal cannula at 3 L. He has no signs of acute alcohol withdrawal at this time. His white count is improving down to 18.3. He remains on IV Rocephin and IV Solu-Medrol. His chest x-ray today shows similar multifocal airspace opacities. 05/14/2023 Patient is evaluated today on the medical floor, he was moved out of the ICU. Doing better he is sitting up on the edge of the bed. He is less short of breath. Continues on 3 L nasal cannula which he wears chronically. He is on IV ceftriaxone and IV solumedrol. He had a chest xray today showing vague patchy airspace opacities suggesting groundglass infiltrates which were greatest in the left mid to upper lung zone and to a lesser degree right upper lung zone, showing slight improvement. Review of Systems Constitutional: Denied any fatigue denied any fever. Cardio vascular: denied any chest pain, palpitations Gastrointestinal: denied any nausea, vomiting, diarrhea Pulmonary: Reports shortness of breath, no cough. Neurologic denied any new focal deficits Reports tremoring. All inpatient medications were reviewed and appropriate changes in these medications as dictated in the interval history and assessment and plan. PHYSICAL EXAMINATION: GENERAL: The patient is alert and oriented x3, not in any acute distress. Well developed, well nourished. HEENT: Pupils are round and equally reacting to light. EOMI. No scleral icterus. No conjunctival pallor. Normocephalic, atraumatic. No pharyngeal erythema. No thyromegaly. CARDIOVASCULAR: S1 and S2 present. No murmurs, rubs, or gallops. PULMONARY: Scattered rhonchi, diminished. ABDOMEN: Soft, nontender, nondistended, normoactive bowel sounds. No palpable organomegaly. MUSCULOSKELETAL: No joint swelling or deformity. EXTREMITIES: No cyanosis, clubbing, or pedal edema. NEUROLOGICAL: Gross neurological examination did not reveal any focal deficits. Patient has tremors at baseline with movement bilateral upper and lower extremities SKIN: No rashes. Assessment and plan -Acute respiratory failure secondary to COPD exacerbation patient has hypercapnic respiratory failure which he improved with BiPAP he continues on systemic and inhaled steroids Currently on 3L of oxygen. -Possible alcohol withdrawal patient will be on Ativan CIWA withdrawal protocol and patient was given IV precedex which has been discontinued at this time. Continue to monitor closely for alcohol withdrawal. -Lactic acidosis from sepsis resolved. -Acute community acquired pneumonia and sepsis POA with elevated procalcitonin level patient is continued on ceftriaxone. He has completed course of azithromycin. -Continued nicotine use -Chronic back pain receiving Dilaudid every 4 hours as well as norco and tylenol for the back pain. -Natriuretic hypokalemia: Normalized. -Chronic ongoing nicotine use and alcohol use DVT prophylaxis: Lovenox GI prophylaxis: Full Code Plan Patient was transferred out of the intensive care unit. He remains on IV ster oids and IV Rocephin. He will work with PT OT on Sunday. Repeat labs in AM. The impression and plan of care has been dictated by Loreta Hough, Nurse Practitioner as directed. Dr. Jaz MD I have performed a history and physical examination and medical decision making of this patient, discussed the same with the dictator, and agree with the dictators assessment and plan as written, documented as a scribe. Based on total visit time, I have performed more than 50% of this visit. Objective - Vital Signs Vital signs: Vital Signs Temp 98 F 05/14/23 19:14 Pulse 84 05/14/23 20:38 Resp 18 05/14/23 19:14 BP 173/103 05/14/23 19:14 Pulse Ox 99 05/14/23 19:14 FiO2 40 05/12/23 00:18 Intake & Output 05/14/23 05/14/23 05/15/23 06:59 18:59 06:59 Intake Total 500 Balance 500 Weight 73.8 kg Intake: Oral 500 Other: # Voids 2 5 # Bowel Movements 1 - Labs CBC & Chem 7: 05/14/23 05:18 05/13/23 03:05 Labs: Abnormal Lab Results - Last 24 Hours (Table) 05/14/23 Range/Units 05:18 WBC 13.74 H (4.50-10.00) X 10*3/uL RBC 4.16 L (4.40-5.60) X 10*6/uL Hgb 11.9 L (13.0-17.0) g/dL Hct 37.3 L (39.6-50.0) % MCHC 31.9 L (32.0-37.0) g/dL Immature Gran # 0.16 H (0.00-0.04) X 10*3/uL Neutrophils # 12.20 H (1.80-7.70) X 10*3/uL Lymphocytes # 0.69 L (0.90-5.00) X 10*3/uL Eosinophils # 0 L (0.04-0.35) X 10*3/uL Assessment and Plan Time with Patient: Less than 30
[2023-05-15] MEDS: HYDROcodone/APAP 7.5-325MG 1 EACH TAB PO PRN ×2 (06:17→12:35)
[2023-05-15] MEDS: IPRATROPIUM-ALBUTEROL 3 ML NEB INHALATION SCH ×3 (08:12→15:34)
[2023-05-15] MEDS: SYMBICORT 160-4.5 MCG INHALER INHALATION SCH (08:13)
[2023-05-15] MEDS: PANTOPRAZOLE 40 MG/10 ML VIAL IVP SCH (08:30)
[2023-05-15] MEDS: NICOTINE 21MG/24HR PATCH TRANSDERM SCH (08:30)
[2023-05-15] MEDS: ENOXAPARIN 40 MG/0.4 ML SYRINGE SQ SCH (08:31)
[2023-05-15] MEDS: amLODIPine 5 MG TAB PO SCH (08:31)
[2023-05-15] MEDS: TAMSULOSIN 0.4 MG CAP.ER.24H PO SCH (08:31)
[2023-05-15] MEDS: BACLOFEN 10 MG TAB PO PRN (08:31)
[2023-05-15] MEDS: DULoxetine HCL 60 MG CAPSULE.DR PO SCH (08:31)
[2023-05-15] MEDS ORDERED: predniSONE 20 MG TAB PO SCH (09:00)
[2023-05-15] MEDS: ACETAMINOPHEN TAB 325 MG TAB PO PRN (10:10)
--- NOTE | 2023-05-15 13:24 | P.PN ---
Subjective Progress Note Date: 05/15/23 Principal diagnosis: COPD exacerbation. I am seeing this patient in consultation today 05/10/2023 for acute COPD exacerbation. The patient is currently in the ER, room 19. He is a 63-year-old male with past medical history significant for COPD. Patient had a recent hospital admission back in February of this year for bilateral pneumonia. He continues to smoke one pack per day, reportedly quit 4 days ago. This is when he started becoming short of breath. Endorses a productive cough with brown sputum. Denies any fevers, chest pain, or hemoptysis. Denies sick contacts. He uses albuterol rescue inhaler on outpatient basis. He is currently sitting up in bed, on BiPAP, and in some respiratory distress. Settings 12/5 and FiO2 of 30%. respiratory rate in the high 20s, and generating good tidal volumes. The nurse tells me that he was quite obtunded on arrival. His mentation has improved, alert and able to answer my questions. He appears quite anxious. He is complaining of lower back pain, patient states this is chronic and he takes [place] for this at home. Chest x-ray on arrival shows marked improvement in the previously demonstrated bilateral infiltrates. CBC on arrival shows leukocytosis with a WBC count of 13.5, hemoglobin 13.1, hematocrit 39.8, platel ets 267. BMP shows sodium 140, potassium 3.3, chloride 103, serum bicarb 19, BUN 13, creatinine 0.75, glucose 118. Lactic acid level is elevated at 5.5. Normal saline is infusing at 75 mL per hour. He is empirically started on antibiotics. Also, has received loading dose of steroids and multiple DuoNeb nebulizations. Patient will be monitored on the cardiac stepdown unit once bed available. Reevaluated today on 05/11/2023, patient remains in the ICU, he was on BiPAP overnight 12//40%, however at 6 AM in the morning the patient was transitioned to a nasal cannula at 2 L. Patient was also on Precedex overnight and this was discontinued at 6 AM this morning. Chest x-ray is basically about the same, continues to show bilateral airspace disease. His echocardiogram came back basically unremarkable his Procrit the level was noted to be elevated BNP level is pending patient did diurese significantly yesterday with one dose of Lasix. Patient remains on Rocephin and Zithromax for now. Patient is definitely more comfortable today compared to yesterday but nonetheless on physical examination continues to have diffuse rhonchi and wheezes bilaterally. Again his chest x- ray may be a bit worse compared to the chest x-ray noted yesterday. CBC showed leukocytosis with WBC count of 22.4 hemoglobin is 11.4 basic metabolic profile is normal renal profile is normal ABG yesterday showed a pO2 of 64 pCO2 40 pH of 7.34 BNP level is slightly elevated and pro-calcitonin level is elevated. 1.28 Reevaluated today on 05/12/2023, she remains in the ICU, he was on BiPAP overnight 12/5/40%, he is now on 2 L nasal cannula, feeling better, breathing easier, nonetheless on physical examination continues to have diffuse expiratory rhonchi and wheezes, but much improved compared to admission status. Continues to have leukocytosis but improving with WBC 20.4 hemoglobin is 12.2. Electrolyt es are normal and renal profile is normal BNP level is borderline elevated. he on level on this admission is 1.28. Chest x-ray continues to show evidence of multifocal airspace opacity/multifocal pneumonia Reevaluated today on 05/13/2023, remains in the ICU, patient is doing well, he is now on 3 L of nasal cannula, not in any distress. Remains on bronchodilators, antibiotics, and steroids, he is afebrile, blood pressure is 153/117 heart rate is a 80,O2 saturation is 93% on 2 L. chest x-ray is showing multifocal airspace disease slight improvement is noted. Continues to have leukocytosis but improving with WBC count down to 18.3 basic metabolic profile is normal renal profile is normal patient is receiving Rocephin and Zithromax, is also receiving DuoNeb updrafts, methylprednisolone, Pulmicort and Perforomist. Progress note dated 05/14/2023. The patient is seen today in room 460. The patient's currently on 2 L of oxygen. Patient is receiving saline at 20 mL an hour. The patient was in the ICU, and, was on BiPAP, with settings of 12/5, and 40%. I don't believe he is currently using BiPAP. Today, the Solu-Medrol was converted to prednisone orally, and budesonide and formoterol, or converted to Symbicort. White count 13.7, hemoglobin 11.9, hematocrit 37.3, and a normal platelet count is noted. Blood cultures are currently pending or negative. Patchy airspace opacities are noted in both lungs, left greater than right. Progress note dated 05/15/2023. 63-year-old male seen today in room 460. The patient is currently on 2 L of oxygen. Is getting saline at 20 mL an hour. The patient's ceftriaxone, will be changed to Augmentin. Currently, the patient's doing reasonably well. The patient would like to be discharged if possible. I told him it was more up to h is hospital doctor, as we are only the consultants on the case. The patient is sitting at bedside. He does have oxygen at home. No new labs today. The labs from May 14 have been reviewed. Please see the note above. Objective - Vital Signs Vital signs: Vital Signs Temp 98.1 F 05/15/23 07:36 Pulse 81 05/15/23 12:07 Resp 18 05/15/23 12:07 BP 149/95 05/15/23 07:36 Pulse Ox 99 05/15/23 08:13 FiO2 40 05/15/23 08:13 Intake & Output 05/14/23 05/15/23 05/15/23 18:59 06:59 18:59 Weight 73.5 kg Other: Voiding Method Toilet Toilet Urinal Urinal # Voids 5 2 # Bowel Movements 1 - Exam No acute distress, oriented 3. Currently on 2 L of oxygen. No overt respiratory failure or distress. Saturation is 99%. HEENT examination is grossly unremarkable. Neck supple. Full range of motion. No adenopathy thyromegaly or neck vein distention. Cardiovascular examination reveals regular rhythm rate. S1-S2 normal. No S3 or S4. No discernible murmur noted. Heart rate is B1 bpm. Lungs reveal bilateral rhonchi. No wheezes or crackles. Room air saturation is 98%. 2 L saturation is 99%. Abdomen soft bowel sounds are heard. No masses or tenderness. Extremities are intact. No cyanosis clubbing or edema. Skin is without rash or lesion. Neurologic examination is brief but nonfocal. - Labs CBC & Chem 7: 05/14/23 05:18 05/13/23 03:05 Labs: Microbiology - Last 24 Hours (Table) 05/10/23 04:15 Blood Culture - Final Blood 05/10/23 04:00 Blood Culture - Final Blood Assessment and Plan Assessment: Acute hypoxemic respiratory failure, secondary to bilateral multifocal pneumonia. Acute exacerbation of COPD. Acute sepsis, secondary to pneumonia. Plan: Plan dated 05/14/2023. The patient is seen today in room 460. The patient will continue on DuoNeb nebs, 4 times a day and when necessary. The Solu-Medrol was converted to prednisone, and the budesonide and formoterol combination is converted to Symbicort. Labs, x-rays, medications are reviewed. The patient's currently on 2 L of oxygen. He did not use BiPAP last night. I recently saw this patient in the hospital, in February. He never made it back to the office for complete pulmonary function testing. Additional recommendations and suggestions are forthcoming. He remains on Rocephin. Cultures are negative. Chest x-ray has been reviewed. Plan dated 05/15/2023. The patient is seen today in room 460. The patient's currently on 2 L of o xygen. The patient is sitting at the bedside, hoping to be discharged soon. The patient never made it into the office after his last admission in February. He does have oxygen at home. Labs, x-rays, medications are reviewed. The patient's overall prognosis is guarded. It'll be up to the hospital service to discharge the patient. No additional recommendations are made. Prognosis is guarded. Time with Patient: Less than 30
[2023-05-15 14:03] VITALS: BP 141/92; TEMP 98.5
[2023-05-15 15:46] VITALS: PULSE 82; RESP 18
[2023-05-15] MEDS ORDERED: AMOXIC-POT CLAV 875-125MG 1 EACH TAB PO SCH (21:00)
--- NOTE | 2023-05-19 09:02 | P.DS ---
Providers Date of admission: 05/10/23 05:59 Attending physician: Eva Saba Consults: 05/10/23 05:59 Consult Physician Routine Consulting Provider: Joshua Mas Consult Reason/Comments: COPD Do you want consulting provider notified?: Yes Primary care physician: Joseph Granger MD Hospital Course: Final Diagnosis -Acute respiratory failure secondary to COPD exacerbation patient has hypercapnic respiratory failure required BiPAP -Alcoholism -Lactic acidosis from sepsis resolved. -Acute community acquired pneumonia and sepsis POA -Continued nicotine use -Chronic back pain -Natriuretic hypokalemia: Normalized. -Chronic ongoing nicotine use and alcohol use Discharge Disposition Patient is stable for discharge home. Patient to continue with home oxygen 2-3L nasal cannula. Recommending to continue course of augmentin for the next 7 days. Continue on prednisone taper. Follow up with PCP DR. Joseph Granger has an appt scheduled on 05/22. He also will need to see pulmonary. Hospital Course Patient is 63-year-old male came into hospital with the complaints of cough was admitted for COPD exacerbation and placed on BIPAP. Patient has history of chronic alcohol use, nicotine use. Patient had an ABG on BiPAP which showed pH of 7.2 lactic acidosis pCO2 of 41 saturating at 99% and pO2 of around 235. Patient has significant wheezing was started on systemic steroids inhalational treatments. Initial Chest x-ray did not show any pneumonia no other clear evidence of infection patient does have leukocytosis with white blood cell count of 13.5 highly elevated lactic acid on admission presently 5.5 lactic acid patient is receiving 75 mL of normal saline. Blood cultures were obtained patient is presently on Rocephin and azithromycin. He was admitted to the ICU with pulmonary consultation. He was also placed on IV precedex for alcohol withdrawal symptoms. Repeat chest xray showing borderline cardiomegaly with worsening patchy and confluent airspace particularity in the upper and midlungs. Echocardiogram comes back at EF 60-65% mild TR. He did improve and was weaned back to home oxygen dose and less wheezy. He was moved out of the ICU and taken off precedex. White blood cell count was up to 22.4 currently 13.74. He denies shortness of breath, denies chest pain. hemodynamically stable. He will be discharged home. Please see medication reconciliations for a list of current medications. Thank you for allowing us to participate in the care of this patient. The impression and plan of care has been dictated by Loreta Hough, Nurse Practitioner as directed. Dr. Jaz MD I have performed a history and physical examination and medical decision making of this patient, discussed the same with the dictator, and agree with the dictators assessment and plan as written, documented as a scribe. Based on total visit time, I have performed more than 50% of this visit. Patient Condition at Discharge: Fair Plan - Discharge Summary Discharge Rx Participant: No New Discharge Prescriptions: New amLODIPine [Norvasc] 5 mg PO DAILY #30 tab Amoxic-Pot Clav 875-125Mg [Augmentin 875-125] 1 each PO Q12HR 7 Days #14 tab predniSONE 0 mg PO DIRECTED 16 Days #38 tab Continue DULoxetine HCL [Cymbalta] 60 mg PO DAILY Ipratropium-Albuterol Nebulize [Duoneb 0.5 mg-3 mg/3 ml Soln] 3 ml INHALATION RT-QID #100 each Albuterol Sulfate [Ventolin HFA] 2 puff INHALATION RT-QID PRN PRN Reason: Shortness Of Breath Meloxicam [Mobic] 15 mg PO DAILY DULoxetine HCL [Cymbalta] 30 mg PO HS Baclofen [Lioresal] 20 mg PO TID PRN PRN Reason: Muscle Spasm Budesonide-Formot 160-4.5 Mcg [Symbicort 160-4.5 Mcg Inhaler] 2 puff INHALATION RT-BID Tamsulosin [Flomax] 0.4 mg PO DAILY HYDROcodone/APAP 7.5-325MG [[place] 7.5-325] 1 tab PO BID PRN PRN Reason: Pain Ipratropium [place] 0.06%Nasal [Atrovent Nasal 0.06%] 2 spr EA NOSTRIL TID Discharge Medication List DULoxetine HCL [Cymbalta] 60 mg PO DAILY 04/15/22 [History] Baclofen [Lioresal] 20 mg PO TID PRN 01/13/23 [History] Budesonide-Formot 160-4.5 Mcg [Symbicort 160-4.5 Mcg Inhaler] 2 puff INHALATION RT-BID 03/12/23 [History] Ipratropium-Albuterol Nebulize [Duoneb 0.5 mg-3 mg/3 ml Soln] 3 ml INHALATION RT-QID #100 each 03/15/23 [Rx] Albuterol Sulfate [Ventolin HFA] 2 puff INHALATION RT-QID PRN 05/10/23 [History] DULoxetine HCL [Cymbalta] 30 mg PO HS 05/10/23 [History] HYDROcodone/APAP 7.5-325MG [[place] 7.5-325] 1 tab PO BID PRN 05/10/23 [History] Ipratropium [place] 0.06%Nasal [Atrovent Nasal 0.06%] 2 spr EA NOSTRIL TID 05/10/23 [History] Meloxicam [Mobic] 15 mg PO DAILY 05/10/23 [History] Tamsulosin [Flomax] 0.4 mg PO DAILY 05/10/23 [History] Amoxic-Pot Clav 875-125Mg [Augmentin 875-125] 1 each PO Q12HR 7 Days #14 tab 05/15/23 [Rx] amLODIPine [Norvasc] 5 mg PO DAILY #30 tab 05/15/23 [Rx] predniSONE 0 mg PO DIRECTED 16 Days #38 tab 05/15/23 [Rx] Follow up Appointment(s)/Referral(s): Joseph Granger MD [Primary Care Provider] - 05/22/23 11:30 am Rui Norwood DO [Doctor of Osteopathic Medicine] - 05/29/23 9:00 am Ambulatory/Diagnostic Orders: Basic Metabolic Panel [LAB.AMB] Location: None Selected Complete Blood Count w/diff [LAB.AMB] Time Frame: 3 Days, Location: None Selected Patient Instructions/Handouts: COPD (Chronic Obstructive Pulmonary Disease) (DC) Discharge Disposition: HOME SELF-CARE
== END 2023-05-15 15:45 | disposition home or self-care (01) | DRG 720 ==
LOC: EC 03:50 → 3SCARD 05:59 → 2SICU 12:39 → 4SSUR 05-13 17:32
PROVIDERS: ADMIT Hospitalist; ATTEND Hospitalist
PROC: 5A09357 Assistance with Respiratory Ventilation, Less than 24 Consecutive Hours, Continuous Positive Airway Pressure (ICD-10-PCS; principal; 2023-05-10)
DX: A41.9 Sepsis, unspecified organism (principal); J18.9 Pneumonia, unspecified organism; J96.02 Acute respiratory failure with hypercapnia; E86.0 Dehydration; R45.1 Restlessness and agitation; M54.50 Low back pain, unspecified; E87.6 Hypokalemia; F17.210 Nicotine dependence, cigarettes, uncomplicated; E87.20 Acidosis, unspecified; F32.A Depression, unspecified; G89.29 Other chronic pain; J44.0 Chronic obstructive pulmonary disease with (acute) lower respiratory infection; J44.1 Chronic obstructive pulmonary disease with (acute) exacerbation; J96.01 Acute respiratory failure with hypoxia; Z79.1 Long term (current) use of non-steroidal anti-inflammatories (NSAID); Z79.51 Long term (current) use of inhaled steroids; Z79.899 Other long term (current) drug therapy; Z82.49 Family history of ischemic heart disease and other diseases of the circulatory system; Z98.1 Arthrodesis status; Z11.52 Encounter for screening for COVID-19
CPT/HCPCS: 36415; 36600; 71045; 80048; 80053; 82805; 83605; 83735; 83880; 84145; 85025; 85027; 85610; 85730; 87040; 87636; 93005; 93306; 94640; 94644; 94660; 94760; 96361; 96365; 96366; 96367; 96375; 96376; 99291

== ENCOUNTER 2023-05-19 18:43 | Inpatient (IN) | payer OTHER ==
--- NOTE | 2023-05-19 19:10 | ED ---
General Adult HPI - General Chief complaint: Shortness of Breath Stated complaint: SOB Time Seen by Provider: 05/19/23 18:56 Source: patient Mode of arrival: ambulatory Limitations: no limitations - History of Present Illness Initial comments: Dictation was produced using [employer] dictation software. please excuse any grammatical, word or spelling errors. Chief Complaint: 63-year-old male with dyspnea History of Present Illness: Patient is 63-year-old male presents to the emergency Department with chief complaint of dyspnea. Patient was just discharged from the hospital 3 days ago for pneumonia. States she is doing fine at home however today started to feel like he couldn't catch his breath. Patient came back to the emergency room states that when he had discharge she felt significantly improved. Patient has a fever, chills or night sweats. Does complain of some mid back pain that is not pleuritic in nature. No history of blood clots. The ROS documented in this emergency department record has been reviewed and co nfirmed by me. Those systems with pertinent positive or negative responses have been documented in the HPI. All other systems are other negative and/or noncontributory. - Related Data Home Medications Medication Instructions Recorded Confirmed DULoxetine HCL [Cymbalta] 60 mg PO DAILY 04/15/22 05/19/23 Baclofen [Lioresal] 20 mg PO TID PRN 01/13/23 05/19/23 Budesonide-Formot 160-4.5 Mcg 2 puff INHALATION RT-BID 03/12/23 05/19/23 [Symbicort 160-4.5 Mcg Inhaler] Albuterol Sulfate [Ventolin HFA] 2 puff INHALATION RT-QID PRN 05/10/23 05/19/23 DULoxetine HCL [Cymbalta] 30 mg PO HS 05/10/23 05/19/23 HYDROcodone/APAP 7.5-325MG [[place] 1 tab PO BID PRN 05/10/23 05/19/23 7.5-325] Ipratropium [place] 0.06%Nasal 2 spr EA NOSTRIL TID 05/10/23 05/19/23 [Atrovent Nasal 0.06%] Meloxicam [Mobic] 15 mg PO DAILY 05/10/23 05/19/23 Tamsulosin [Flomax] 0.4 mg PO DAILY 05/10/23 05/19/23 Amoxic-Pot Clav 875-125Mg 1 tab PO Q12HR 05/19/23 05/19/23 [Augmentin 875-125] predniSONE See Taper PO DIRECTED 05/19/23 05/19/23 Previous Rx's Medication Instructions Recorded Ipratropium-Albuterol Nebulize 3 ml INHALATION RT-QID #100 each 03/15/23 [Duoneb 0.5 mg-3 mg/3 ml Soln] amLODIPine [Norvasc] 5 mg PO DAILY #30 tab 05/15/23 Allergies Allergy/AdvReac Type Severity Reaction Status Date / Time potassium chloride Allergy Swelling Verified 05/19/23 21:53 [From Klor-Con] sacubitril [From Entresto] Allergy Unknown Verified 05/19/23 21:53 trazodone Allergy Rash/Hives Verified 05/19/23 21:53 valsartan [From Entresto] Allergy Unknown Verified 05/19/23 21:53 Review of Systems ROS Statement: Those systems with pertinent positive or pertinent negative responses have been documented in the HPI. ROS Other: All systems not noted in ROS Statement are negative. Past Medical History Past Medical History: COPD, Pneumonia Additional Past Medical History / Comment(s): back pain History of Any Multi-Drug Resistant Organisms: None Reported Past Surgical History: Back Surgery, Cardiac Ablation Additional Past Surgical History / Comment(s): neck fusion,rt eye surgery, rt hand surgery, cateracts Past Anesthesia/Blood Transfusion Reactions: No Reported Reaction Past Psychological History: Depression Smoking Status: Current every day smoker Past Alcohol Use History: Occasional Past Drug Use History: Marijuana - Past Family History Mother History Unknown: Yes Family Medical History: Myocardial Infarction (DC) Additional Family Medical History / Comment(s): from [place] General Exam - General Exam Comments Initial Comments: PHYSICAL EXAM: General Impression: Alert and oriented x3, dyspneic, diaphoretic HEENT: Normocephalic atraumatic, extra-ocular movements intact, pupils equal and reactive to light bilaterally, mucous membranes moist. Cardiovascular: Heart regular rate and rhythm Chest: Able to complete full sentences, no retractions, no tachypnea, clear to auscultation bilaterally Abdomen: abdomen soft, non-tender, non-distended, no organomegaly Musculoskeletal: Pulses present and equal in all extremities, no peripheral edema Motor: no focal deficits noted Neurological: CN II-XII grossly intact, no focal motor or sensory deficits noted Skin: Intact with no visualized rashes Psych: Normal affect and mood Limitations: no limitations Course Vital Signs 05/19/23 05/19/23 05/19/23 18:50 21:12 22:03 Temperature 98 F Pulse Rate 68 129 H Respiratory 18 24 Rate Blood Pressure 132/90 185/123 O2 Sat by Pulse 93 L 93 L Oximetry Fraction of 100 Inspired Oxygen (FIO2) 05/19/23 22:16 Temperature Pulse Rate Respiratory Rate Blood Pressure O2 Sat by Pulse Oximetry Fraction of 100 Inspired Oxygen (FIO2) EKG Findings - EKG Comments: EKG Findings:: My EKG interpretation: Ventricular rate 102, sinus tachycardia, ID interval 1:15, QRS 83, QTC 371. No ID prolongation, no QTC prolongation, no ST or T-wave changes noted. EKG compared to 05/10/2023 showing no changes. Overall, this EKG is unremarkable Procedures - Intubation Sedative: Etomidate Paralytic: Rocuronium Laryngoscope: Christine Size: 3 ET Tube Size: 7 ET Tube Uncuffed: Yes Tube Secured Depth (cm): 23 Tube Secured Location: lips Tube Placement Confirmation: visualized tube passing through cords, equal breath sounds bilaterally Patient Tolerated Procedure: well Intubation Complications: none Medical Decision Making - Medical Decision Making Was pt. sent in by a medical professional or institution (DIVYA Zuñiga, HEATING ELEMENT BUILDER, urgent care, hospital, or residential...) When possible be specific @ -No Did you speak to anyone other than the patient for history (EMS, parent, family, police, friend...)? What history was obtained from this source @ -No Did you review nursing and triage notes (agree or disagree)? Why? @ -I reviewed and agree with nursing and triage notes Were old charts reviewed (outside hosp., previous admission, EMS record, old EKG, old radiological studies, urgent care reports/EKG's, residential records)? Report findings @ -No old charts were reviewed Differential Diagnosis (chest pain, altered mental status, abdominal pain women, abdominal pain men, vaginal bleeding, musculoskeletal, weakness, fever, dyspnea, syncope, headache, dizziness, GI bleed, back pain, seizure, CVA, palpatations, mental health)? @ -Differential Dyspnea: Coronary syndrome, arrhythmia, tamponade, asthma, COPD, pulmonary embolism, pneumonia, pneumothorax, pulmonary effusion, anaphylaxis, diabetic ketoacidosis, flailed chest, pulmonary contusion, diaphragmatic rupture, anemia, neuromuscular, this is not meant to be an all-inclusive list. EKG interpreted by me (3pts min.). @ -see above X-rays interpreted by me (1pt min.). @ -chest xray shows multifocal infilitrates CT interpreted by me (1pt min.). @ -CT angio of the chest shows multifocal infilitrates no largey central pulmonary embolism U/S interpreted by me (1pt. min.). @ -None done What testing was considered but not performed or refused? (CT, X-rays, U/S, labs)? Why? @ -None What meds were considered but not given or refused? Why? @ -None Did you discuss the management of the patient with other professionals (professionals i.e. , PA, HEATING ELEMENT BUILDER, lab, RT, psych nurse, transition social worker, admiralty lawyer, teacher, communications officer, caseworker protective services)? Give summary @ -Case discussed with feather washer for admission Was smoking cessation discussed for >3mins.? @ -No Was critical care preformed (if so, how long)? @ -Yes, 77 minutes Were there social determinants of health that impacted care today? How? (Homelessness, low income, unemployed, alcoholism, drug addiction, transportation, low edu. Level, literacy, decrease access to med. care, care home, rehab)? @ -No Was there de-escalation of care discussed even if they declined (Discuss DNR or withdrawal of care, Hospice)? DNR status @ -No What co-morbidities impacted this encounter? (DM, HTN, Smoking, COPD, CAD, Cancer, CVA, ARF, Chemo, Hep., AIDS, mental health diagnosis, sleep apnea, morbid obesity)? @ -None Was patient admitted / discharged? Hospital course, mention meds given and route, prescriptions, significant lab abnormalities, going to OR and other pertinent info. @ -63-year-old male presents to the emergency department for dyspnea was just discharged 4 days ago. Patient in acute distress tachypneic and diaphoretic however he is not hypoxic. Blood pressure is normal. Laboratory evaluation obtained showing leukocytosis of 38.5. Metabolic panel shows lactic acidosis of 4.9 troponin of 0.051 likely secondary to cardiac stress. Vital testing is negative. Patient unable to tolerate BiPAP mask given his clinical condition and degree of agitation decision was made for endotracheal intubation and sedation. Patient be admitted ICU. Given 30. Cipro EKG bolus of IV fluids for concern of sepsis. Patient also given antibiotics. Undiagnosed new problem with uncertain prognosis? @ -No Drug Therapy requiring intensive monitoring for toxicity (Heparin, Nitro, Insulin, Cardizem)? @ -No Were any procedures done? @ -No Diagnosis/symptom? Acute, or Chronic, or Acute on Chronic? Uncomplicated (without systemic symptoms) or Complicated (systemic symptoms)? @ -Pneumonia sepsis Side effects of treatment? @ -No Exacerbation, Progression, or Severe Exacerbation? @ -No Poses a threat to life or bodily function? How? (Chest pain, [place], DC, pneumonia, PE, COPD, DKA, ARF, appy, cholecystitis, CVA, Diverticulitis, Homicidal, Suicidal, threat to staff... and all critical care pts) @ -yes - Lab Data Result diagrams: 05/19/23 19:25 05/19/23 19:25 Lab Results 05/19/23 05/19/23 05/19/23 Range/Units 19:09 19:25 19:25 WBC 38.5 H (3.8-10.6) k/uL RBC 4.94 (4.30-5.90) m/uL Hgb 14.6 (13.0-17.5) gm/dL Hct 45.4 (39.0-53.0) % MCV 91.9 (80.0-100.0) fL MCH 29.5 (25.0-35.0) pg MCHC 32.1 (31.0-37.0) g/dL RDW 14.1 (11.5-15.5) % Plt Count 377 (150-450) k/uL MPV 9.2 Hypochromasia Slight PT (10.0-12.5) sec INR (<1.2) APTT (22.0-30.0) sec D-Dimer (<0.60) mg/L FEU Sodium 141 (137-145) mmol/L Potassium 4.5 (3.5-5.1) mmol/L Chloride 104 (98-107) mmol/L Carbon Dioxide 21 L (22-30) mmol/L Anion Gap 16 mmol/L BUN 26 H (9-20) mg/dL Creatinine 1.18 (0.66-1.25) mg/dL Est GFR (CKD-EPI)AfAm 77 (>60 ml/min/1.73 sqM) Est GFR (CKD-EPI)NonAf 66 (>60 ml/min/1.73 sqM) Glucose 122 H (74-99) mg/dL POC Glucose (mg/dL) 130 H (70-110) mg/dL POC Glu Cake Washer ID Jelena Short Lactic Ac Sepsis Rflx Plasma Lactic Acid Pierre (0.7-2.0) mmol/L Calcium 9.3 (8.4-10.2) mg/dL Magnesium 2.1 (1.6-2.3) mg/dL Total Bilirubin 0.4 (0.2-1.3) mg/dL AST 32 (17-59) U/L ALT 43 (4-49) U/L Alkaline Phosphatase 130 H (38-126) U/L Troponin I (0.000-0.034) ng/mL NT-Pro-B Natriuret Pep 1250 pg/mL Total Protein 6.6 (6.3-8.2) g/dL Albumin 4.2 (3.5-5.0) g/dL Influenza Type A (PCR) (Not Detectd) Influenza Type B (PCR) (Not Detectd) RSV (PCR) (Not Detectd) SARS-CoV-2 (PCR) (Not Detectd) 05/19/23 05/19/23 05/19/23 Range/Units 19:25 19:25 19:26 WBC (3.8-10.6) k/uL RBC (4.30-5.90) m/uL Hgb (13.0-17.5) gm/dL Hct (39.0-53.0) % MCV (80.0-100.0) fL MCH (25.0-35.0) pg MCHC (31.0-37.0) g/dL RDW (11.5-15.5) % Plt Count (150-450) k/uL MPV Hypochromasia PT 9.5 L (10.0-12.5) sec INR 0.8 (<1.2) APTT 20.2 L (22.0-30.0) sec D-Dimer 0.33 (<0.60) mg/L FEU Sodium (137-145) mmol/L Potassium (3.5-5.1) mmol/L Chloride (98-107) mmol/L Carbon Dioxide (22-30) mmol/L Anion Gap mmol/L BUN (9-20) mg/dL Creatinine (0.66-1.25) mg/dL Est GFR (CKD-EPI)AfAm (>60 ml/min/1.73 sqM) Est GFR (CKD-EPI)NonAf (>60 ml/min/1.73 sqM) Glucose (74-99) mg/dL POC Glucose (mg/dL) (70-110) mg/dL POC Glu Cake Washer ID Lactic Ac Sepsis Rflx Plasma Lactic Acid Pierre 4.9 H* (0.7-2.0) mmol/L Calcium (8.4-10.2) mg/dL Magnesium (1.6-2.3) mg/dL Total Bilirubin (0.2-1.3) mg/dL AST (17-59) U/L ALT (4-49) U/L Alkaline Phosphatase (38-126) U/L Troponin I 0.051 H* (0.000-0.034) ng/mL NT-Pro-B Natriuret Pep pg/mL Total Protein (6.3-8.2) g/dL Albumin (3.5-5.0) g/dL Influenza Type A (PCR) (Not Detectd) Influenza Type B (PCR) (Not Detectd) RSV (PCR) (Not Detectd) SARS-CoV-2 (PCR) (Not Detectd) 05/19/23 05/19/23 Range/Units 19:28 20:03 WBC (3.8-10.6) k/uL RBC (4.30-5.90) m/uL Hgb (13.0-17.5) gm/dL Hct (39.0-53.0) % MCV (80.0-100.0) fL MCH (25.0-35.0) pg MCHC (31.0-37.0) g/dL RDW (11.5-15.5) % Plt Count (150-450) k/uL MPV Hypochromasia PT (10.0-12.5) sec INR (<1.2) APTT (22.0-30.0) sec D-Dimer (<0.60) mg/L FEU Sodium (137-145) mmol/L Potassium (3.5-5.1) mmol/L Chloride (98-107) mmol/L Carbon Dioxide (22-30) mmol/L Anion Gap mmol/L BUN (9-20) mg/dL Creatinine (0.66-1.25) mg/dL Est GFR (CKD-EPI)AfAm (>60 ml/min/1.73 sqM) Est GFR (CKD-EPI)NonAf (>60 ml/min/1.73 sqM) Glucose (74-99) mg/dL POC Glucose (mg/dL) (70-110) mg/dL POC Glu Cake Washer ID Lactic Ac Sepsis Rflx Y Plasma Lactic Acid Pierre (0.7-2.0) mmol/L Calcium (8.4-10.2) mg/dL Magnesium (1.6-2.3) mg/dL Total Bilirubin (0.2-1.3) mg/dL AST (17-59) U/L ALT (4-49) U/L Alkaline Phosphatase (38-126) U/L Troponin I (0.000-0.034) ng/mL NT-Pro-B Natriuret Pep pg/mL Total Protein (6.3-8.2) g/dL Albumin (3.5-5.0) g/dL Influenza Type A (PCR) Not Detected (Not Detectd) Influenza Type B (PCR) Not Detected (Not Detectd) RSV (PCR) Not Detected (Not Detectd) SARS-CoV-2 (PCR) Not Detected (Not Detectd) Disposition Clinical Impression: Sepsis due to pneumonia Disposition: ADMITTED IP TO THIS HOSP Condition: Critical Referrals: Joseph Granger MD [Primary Care Provider] - 1-2 days Decision Time: 22:32
[2023-05-19 19:11] LABS: Glucose,Whole Blood 130 mg/dL (70-110)
[2023-05-19 19:49] LABS: ALT 43 U/L (4-49); AST 32 U/L (17-59); African American GFR (CKD) 77 (>60 ml/min/1.73 sqM); Albumin 4.2 g/dL (3.5-5.0); Alkaline Phosphatase 130 U/L (38-126); Anion Gap 16 mmol/L; Blood Urea Nitrogen 26 mg/dL (9-20); Calcium 9.3 mg/dL (8.4-10.2); Carbon Dioxide 21 mmol/L (22-30); Chloride 104 mmol/L (98-107); Glucose 122 mg/dL (74-99); Magnesium 2.1 mg/dL (1.6-2.3); Non-African American GFR(CKD) 66 (>60 ml/min/1.73 sqM); Potassium 4.5 mmol/L (3.5-5.1); Sodium 141 mmol/L (137-145); Total Bilirubin 0.4 mg/dL (0.2-1.3); Total Protein 6.6 g/dL (6.3-8.2)
--- NOTE | 2023-05-19 19:49 | XR ---
EXAMINATION TYPE: XR chest 1V portable DATE OF EXAM: 05/19/2023 Comparison: 05/14/2023 Clinical History: 63-year-old male dyspnea, shortness of breath Findings: Posterior cervical fusion hardware. Heart borderline enlarged. Diffuse hazy interstitial densities pe rsist but show slight improvement prior. No progressive consolidation or pleural effusion. Impression: Diffuse hazy interstitial changes show slight improvement from prior. This is nonspecific but atypica l or COVID pneumonia is in the differential.
[2023-05-19 19:58] LABS: NT-Pro-B-Type Natriuretic Pept 1250 pg/mL
[2023-05-19 20:07] LABS: Basophils # (A) 0.1 k/uL (0-0.2); Basophils % (A) 0 %; Eosinophils % (A) 0 %; HCT 45.4 % (39.0-53.0); HGB 14.6 gm/dL (13.0-17.5); Hypochromasia Slight; Lymphocytes # (A) 0.6 k/uL (1.0-4.8); Lymphocytes % (A) 2 %; MCH 29.5 pg (25.0-35.0); MCHC 32.1 g/dL (31.0-37.0); MCV 91.9 fL (80.0-100.0); Mean Platelet Volume 9.2; Monocytes % (A) 3 %; Neutrophils # (A) 36.7 k/uL (1.3-7.7); Neutrophils % (A) 95 %; Platelet Count 377 k/uL (150-450); RBC 4.94 m/uL (4.30-5.90); RDW 14.1 % (11.5-15.5); WBC 38.5 k/uL (3.8-10.6)
[2023-05-19] MEDS: SODIUM CHLORIDE 0.9% 1,000 ML IV STA (20:34)
[2023-05-19 20:46] LABS: INR 0.8 (<1.2); Prothrombin Time 9.5 sec (10.0-12.5)
[2023-05-19] MEDS: LORazepam 2 MG/ML INJ IV STA ×2 (20:48→21:14)
[2023-05-19 21:12] LABS: Partial Thromboplastin Time 20.2 sec (22.0-30.0)
--- NOTE | 2023-05-19 21:51 | CT ---
EXAMINATION TYPE: CT angio chest DATE OF EXAM: 05/19/2023 COMPARISON: 04/26/2021 HISTORY: 63-year-old male d-dimer not elevated, SOB, diaphoretic, AMS, pt was not cooperative, given 2 doses of Ativan given TECHNIQUE: Contiguous axial scanning of the chest after the administration of 100 mL of Isovue 370. Coronal/sagittal MIP reconstructions performed. CT DLP: 507.4mGycm. Automatic exposure control utilized for a dose reduction. FINDINGS: The heart is normal size without pericardial effusion. No flattening of the interventricular septum o r reflux of contrast into the hepatic veins. Aorta is normal caliber with conventional arch vessel branching anatomy. No thoracic lymphadenopathy by CT size criteria. The patient is moving and breathing throughout the scan. No obvious large central or saddle pulmonary embolus. The remaining lumbar, segmental, and more distal arterial branches are nondiagnostic for as sessment of pulmonary emboli. There is dynamic collapsibility of the trachea and mainstem bronchi. Significant flattening of the ri ght mainstem bronchus, axial image 51. Multifocal groundglass areas of opacity especially in the upper and mid lungs. No pleural effusion. Visualized upper abdomen is motion degraded. Bones: [facility] mid and lower thoracic spine. IMPRESSION: 1. The patient is moving and breathing during the scan. Assessment for pulmonary embolus is largely n ondiagnostic. Unable to exclude pulmonary emboli on the basis of this exam. No saddle or obvious larg e central embolus is seen. 2. Groundglass COVID infiltrates in the upper and midlungs. 3. Possible underlying bronchomalacia, particularly of the right mainstem bronchus.
[2023-05-19] MEDS: ETOMIDATE 2 MG/ML 10 ML VIAL IVP STA (22:00)
[2023-05-19] MEDS: ROCURONIUM 10 MG/ML (5 ML VIAL) IV STA (22:02)
[2023-05-19] MEDS ORDERED: NALOXONE 0.4 MG/ML 1 ML VIAL IV PRN (22:21)
[2023-05-19] MEDS ORDERED: SODIUM CHLORIDE 0.9% 1,000 ML IV STA (22:24)
[2023-05-19] MEDS: HYDROmorphone 1 MG/ML 1 ML SYRINGE IVP STA (22:29)
[2023-05-19] MEDS ORDERED: Potassium Replacement Protocol 1 EACH MISC MISCELLANE PRN (22:46)
[2023-05-19] MEDS ORDERED: Magnesium Replacement Protocol 1 EACH MISC MISCELLANE PRN (22:46)
[2023-05-19 23:02] LABS: ABG Base Excess -2.7 mmol/L; ABG HCO3 24 mmol/L (21-25); ABG Oxygen Saturation 99.7 % (94-97); ABG PCO2 52 mmHg (35-45); ABG PH 7.28 (7.35-7.45); ABG PO2 >400 mmHg (83-108); ABG TCO2 26 mmol/L (19-24); Allen Test Performed? Yes
[2023-05-19] MEDS: IPRATROPIUM 0.5 MG/2.5 ML NEBU INHALATION STA ×2 (23:11→23:53)
[2023-05-19] MEDS: ALBUTEROL NEBULIZED 2.5 MG/3 ML INHALATION STA ×2 (23:11→23:53)
[2023-05-19] MEDS: SODIUM CHLORIDE 0.9% 1,000 ML IV SCH (23:25)
[2023-05-19] MEDS: SODIUM CHLORIDE 0.9% 1,250 ML IV STA (23:25)
[2023-05-19] MEDS: DEXAMETHASONE SOD PHOSPHATE 10 MG/ML 1 ML VIAL IV STA (23:45)
[2023-05-20] LABS: Basophils # (A) 0.1 k/uL (0-0.2); Basophils % (A) 0 %; Eosinophils % (A) 0 %; HCT 38.4 % (39.0-53.0); HGB 12.3 gm/dL (13.0-17.5); Hypochromasia Slight; Lymphocytes # (A) 0.5 k/uL (1.0-4.8); Lymphocytes % (A) 1 %; MCH 29.9 pg (25.0-35.0); MCHC 32.1 g/dL (31.0-37.0); MCV 93.3 fL (80.0-100.0); Mean Platelet Volume 8.5; Monocytes # (A) 1.1 k/uL (0-1.0); Monocytes % (A) 3 %; Neutrophils % (A) 95 %; Platelet Count 297 k/uL (150-450); RBC 4.12 m/uL (4.30-5.90); RDW 13.8 % (11.5-15.5); WBC 37.8 k/uL (3.8-10.6)
[2023-05-20 00:02] LABS: African American GFR (CKD) 80 (>60 ml/min/1.73 sqM); Anion Gap 14 mmol/L; Blood Urea Nitrogen 27 mg/dL (9-20); Calcium 8.3 mg/dL (8.4-10.2); Carbon Dioxide 22 mmol/L (22-30); Chloride 105 mmol/L (98-107); Glucose 97 mg/dL (74-99); Magnesium 1.9 mg/dL (1.6-2.3); Non-African American GFR(CKD) 69 (>60 ml/min/1.73 sqM); Potassium 4.1 mmol/L (3.5-5.1); Sodium 141 mmol/L (137-145)
[2023-05-20 00:18] LABS: Glucose,Whole Blood 158 mg/dL (70-110)
[2023-05-20] MEDS: fentaNYL (PF). 1,000 MCG in SODIUM CHLORIDE 0.9% 80 ML IV SCH (00:32)
[2023-05-20] MEDS: CISATRACURIUM 2 MG/ML 5 ML VIAL IV ONE ×2 (00:37→08:19)
[2023-05-20 00:44] LABS: Appearance,Urine Clear (Clear); Bacteria,Urine Rare /hpf; Bilirubin,Urine Negative (Negative); Blood,Urine Small (Negative); Color,Urine Yellow; Glucose,Urine (UA) Negative (Negative); Hyaline Casts,Urine 122 /lpf (0-2); Ketones,Urine Negative (Negative); Leukocyte Esterase,Urine Negative (Negative); Mucus,Urine Few /hpf; Nitrite,Urine Negative (Negative); Protein,Urine 1+ (Negative); RBC,Urine 18 /hpf (0-5); Squamous Epithelial Cell,Urine <1 /hpf (0-4); WBC,Urine 2 /hpf (0-5)
[2023-05-20 00:45] LABS: Specific Gravity,Urine >1.050 (1.001-1.035)
[2023-05-20] MEDS: IPRATROPIUM-ALBUTEROL 3 ML NEB INHALATION SCH (00:45)
[2023-05-20] MEDS: PIPERACILLIN-TAZOBACTAM 3.375 GM in SODIUM CHLORIDE 0.9% 100 ML IVPB SCH ×2 (01:31→09:31)
--- NOTE | 2023-05-20 01:37 | XR ---
EXAM: XR Chest, 1 View CLINICAL HISTORY: ITS.REASON XR Reason: et tube placement TECHNIQUE: Frontal view of the chest. COMPARISON: No relevant prior studies available. FINDINGS: Lungs: Patchy bilateral airspace consolidations, consistent with multilobar pneumonia. Pleural space: Unremarkable. No pneumothorax. Heart: Unremarkable. No cardiomegaly. Mediastinum: Unremarkable. Normal mediastinal contour. Bones/joints: Unremarkable. No acute fracture. Tubes, lines and devices: Feeding tube terminates below the diaphragm. Endotracheal tube terminates 4.7 cm above the enriqueta. IMPRESSION: 1. Patchy bilateral airspace consolidations, consistent with multilobar pneumonia. 2. Feeding tube terminates below the diaphragm. 3. Endotracheal tube terminates 4.7 cm above the enriqueta.
[2023-05-20] MEDS: IPRATROPIUM-ALBUTEROL 3 ML NEB INHALATION PRN (02:36)
[2023-05-20] MEDS: CISATRACURIUM 200 MG in SODIUM CHLORIDE 0.9% 180 ML IV SCH (02:55)
[2023-05-20] MEDS: ARTIFICIAL TEARS-HYPROMELLOSE DROPS 15 ML BTL BOTH EYES SCH (04:50)
[2023-05-20 05:54] LABS: Glucose,Whole Blood 180 mg/dL (70-110)
[2023-05-20 06:34] LABS: ABG Base Excess -4.2 mmol/L; ABG HCO3 22 mmol/L (21-25); ABG Oxygen Saturation 99.3 % (94-97); ABG PCO2 42 mmHg (35-45); ABG PH 7.33 (7.35-7.45); ABG PO2 147 mmHg (83-108); ABG TCO2 23 mmol/L (19-24); Allen Test Performed? Yes
--- NOTE | 2023-05-20 07:45 | XR ---
EXAMINATION TYPE: XR chest 1V portable DATE OF EXAM: 05/20/2023 5:16 AM CLINICAL INDICATION:Male, 63 years old with history of Tube placement; [facility] COMPARISON: Chest radiograph from one day prior. TECHNIQUE: XR chest 1V portable Frontal view of the chest. FINDINGS: Lungs/Pleura: Similar multifocal airspace opacities. No evidence of pneumothorax or pleural effusion. Pulmonary vascularity: Unremarkable. Heart/mediastinum: Cardiomediastinal silhouette is unremarkable. Musculoskeletal: No acute osseous pathology. Other findings: None Lines/Tubes: Endotracheal tube with distal tip 3.4 cm above the enriqueta. Nasogastric tube with its distal tip and side-port projecting under the diaphragm. IMPRESSION: 1. Similar multifocal airspace opacities. 2. Stable support lines and tubes.
--- NOTE | 2023-05-20 08:50 | PCN ---
PROCEDURE NOTE PROCEDURE PERFORMED: Left internal jugular triple-lumen catheter. PREOPERATIVE DIAGNOSES: Administration of fluids and pressors, hypotension, sepsis. POSTOPERATIVE DIAGNOSES: Administration of fluids and pressors, hypotension, sepsis. There was informed consent, universal timeout. [employer]: Dr. Norwood. CLUB ATTENDANT: The first surgical brace maker was Dr. Brissa Sellers. DESCRIPTION OF PROCEDURE: We used the left internal jugular site via posterior approach. There was no immediate complication, there was good blood return from all 3 ports. The catheter was sutured in place. Sterile dressing was applied by the nurse. Chest x-ray was ordered to check placement. The tube was seen at the junction of right atrium and superior vena cava. There was no immediate complication. The patient tolerated the procedure very well. MMODL / IJN: [id number] /
--- NOTE | 2023-05-20 09:06 | XR ---
EXAMINATION TYPE: XR chest 1V portable DATE OF EXAM: 05/20/2023 8:56 AM CLINICAL INDICATION:Male, 63 years old with history of central line insertion; [facility] COMPARISON: Chest radiographs from 05/20/2023. TECHNIQUE: XR chest 1V portable Frontal view of the chest. FINDINGS: Lungs/Pleura: Multifocal airspace opacities. No evidence of pneumothorax or pleural effusion. Pulmonary vascularity: Unremarkable. Heart/mediastinum: Cardiomediastinal silhouette is unremarkable. Musculoskeletal: No acute osseous pathology. There is fixation hardware in the lower cervical spine. Other findings: None Lines/Tubes: Endotracheal tube with distal tip 4.8 cm above the enriqueta. Nasogastric tube with its distal tip and side-port projecting under the diaphragm. Left internal jugular central venous catheter with distal tip at the cavoatrial junction. IMPRESSION: 1. Multifocal airspace opacities. 2. Support line and tubes in appropriate position. 3.
--- NOTE | 2023-05-20 09:11 | PCN ---
PROCEDURE NOTE PROCEDURE PERFORMED: Right femoral art line. PREOPERATIVE DIAGNOSES: Frequent blood draws and blood gas monitoring. POSTOPERATIVE DIAGNOSES: Frequent blood draws and blood gas monitoring. CORNICE MAKER: Dr. Norwood. FIRST MOVEMENT [employer]SEMBLY FINAL INSPECTOR: Dr. Brissa Sellers. The site was the right femoral artery. ARTERIAL LINE PLACEMENT: Indications: Hemodynamic monitoring. A time-out was completed verifying correct patient, procedure, site, positioning, and implant(s) or special equipment if applicable. Alonso's test was performed to ensure adequate perfusion. The patient's right wrist or right groin was prepped and draped in sterile fashion. 1% Lidocaine was used to anesthetize the area. An 18G [place] arterial line was introduced into the femoral artery. The catheter was threaded over the guide wire and the needle was removed with appropriate pulsatile blood return. Blood loss was minimal. The catheter was then sutured in place to the skin and a sterile dressing applied. Perfusion to the extremity distal to the point of catheter insertion was checked and found to be adequate. There was no immediate complication. There was good blood return and waveform. The patient tolerated the procedure well. The catheter was sutured in place. Sterile dressing was applied by the nurse. Initial blood pressure was 136/72. The patient tolerated the procedure well without any complication whatsoever. MMODL / IJN: [id number] /
[2023-05-20] MEDS: CHLORHEXIDINE GLUCONATE 15 ML CUP MUCOUS MEM SCH (09:31)
[2023-05-20] MEDS: PANTOPRAZOLE 40 MG/10 ML VIAL IV SCH (09:31)
--- NOTE | 2023-05-20 10:03 | P.CNPUL ---
History of Present Illness Consult date: 05/20/23 Requesting physician: Eva Saba Reason for consult: dyspnea, COPD, hypoxemia Chief complaint: Shortness of breath History of present illness: Tori is a 63-year-old male with past medical history significant for pression COPD. He continues to smoke one pack per day, smokes marijuana and drinks alcohol daily. He was just discharged from here on 05/15/2023 following a COPD exacerbation requiring BiPAP support. He was still on Augmentin and prednisone taper. He came back to the emergency room last evening following an acute episode of shortness of breath. His condition deteriorated and he required intubation and mechanical ventilatory support. He is seen today in the intensive care unit. He is on the ventilator and assist control mode at a rate of 24, tidal volume 450, FiO2 40% and a PEEP of 5. Morning blood gases revealed a PaO2 of 147, P CO2 42 and a PEEP H of 7.33. He has normal saline at 130 ML's per hour. He is sedated on propofol at 45 mcg/kg/m. Currently on fentanyl at 1 mcg/kg per hour. Nimbex at 2 mcg/kg/m. X-ray reveals multifocal airspace opacities. Endotracheal tube and nasogastric tubes in good position. Left IJ [place] catheter good position. CT angiogram ruled out saddle emboli. Groundglass infiltrates in the upper and mid lungs. Possible underlying bronchomalacia particularly the right mainstem bronchus. White count 37.8. Hemoglobin 12.3. D-dimer 0.33. Sodium 141 potassium 4.1. Bicarb 22. BUN 27. Creatinine 1.14. Glucose 180. AST 32. ALT 43. Troponin 0.051. ProBNP 1250. He's been initiated and DuoNeb inhalations every 4 hours and antibiotics in the form of Zosyn. Review of Systems ROS unobtainable: due to endotracheal tube Past Medical History Past Medical History: COPD, Pneumonia Additional Past Medical History / Comment(s): back pain History of Any Multi-Drug Resistant Organisms: None Reported Past Surgical History: Back Surgery, Cardiac Ablation Additional Past Surgical History / Comment(s): neck fusion,rt eye surgery, rt hand surgery, cateracts Past Anesthesia/Blood Transfusion Reactions: No Reported Reaction Past Psychological History: Depression Smoking Status: Current every day smoker Past Alcohol Use History: Occasional Past Drug Use History: Marijuana - Past Family History Mother History Unknown: Yes Family Medical History: Myocardial Infarction (PR) Additional Family Medical History / Comment(s): from [place] Medications and Allergies Home Medications Medication Instructions Recorded Confirmed Type DULoxetine HCL [Cymbalta] 60 mg PO DAILY 04/15/22 05/19/23 History Baclofen [Lioresal] 20 mg PO TID PRN 01/13/23 05/19/23 History Budesonide-Formot 160-4.5 Mcg 2 puff INHALATION RT-BID 03/12/23 05/19/23 History [Symbicort 160-4.5 Mcg Inhaler] Ipratropium-Albuterol Nebulize 3 ml INHALATION RT-QID #100 each 03/15/23 Rx [Duoneb 0.5 mg-3 mg/3 ml Soln] Albuterol Sulfate [Ventolin HFA] 2 puff INHALATION RT-QID PRN 05/10/23 05/19/23 History DULoxetine HCL [Cymbalta] 30 mg PO HS 05/10/23 05/19/23 History HYDROcodone/APAP 7.5-325MG [[place] 1 tab PO BID PRN 05/10/23 05/19/23 History 7.5-325] Ipratropium [place] 0.06%Nasal 2 spr EA NOSTRIL TID 05/10/23 05/19/23 History [Atrovent Nasal 0.06%] Meloxicam [Mobic] 15 mg PO DAILY 05/10/23 05/19/23 History Tamsulosin [Flomax] 0.4 mg PO DAILY 05/10/23 05/19/23 History amLODIPine [Norvasc] 5 mg PO DAILY #30 tab 05/15/23 05/19/23 Rx Amoxic-Pot Clav 875-125Mg 1 tab PO Q12HR 05/19/23 05/19/23 History [Augmentin 875-125] predniSONE See Taper PO DIRECTED 05/19/23 05/19/23 History Allergies Allergy/AdvReac Type Severity Reaction Status Date / Time potassium chloride Allergy Swelling Verified 05/19/23 21:53 [From Klor-Con] sacubitril [From Entresto] Allergy Unknown Verified 05/19/23 21:53 trazodone Allergy Rash/Hives Verified 05/19/23 21:53 valsartan [From [facility]] Allergy Unknown Verified 05/19/23 21:53 Physical Exam Vitals: Vital Signs Temp Pulse Pulse Resp BP Pulse Ox FiO2 05/20/23 08:03 85 05/20/23 07:57 84 05/20/23 07:52 30 05/20/23 07:00 82 24 100/62 98 05/20/23 06:00 84 24 106/72 100 05/20/23 05:00 80 24 103/71 100 05/20/23 04:53 79 05/20/23 04:44 40 05/20/23 04:42 77 05/20/23 04:00 98.3 F 77 93 24 107/71 100 40 05/20/23 03:00 103 H 27 H 108/77 100 05/20/23 02:59 94 05/20/23 02:41 40 05/20/23 02:35 83 05/20/23 02:00 79 24 111/71 99 05/20/23 01:00 83 24 126/80 99 05/20/23 00:55 86 05/20/23 00:48 40 05/20/23 00:46 87 05/20/23 00:17 96.8 F L 82 24 100 40 05/20/23 00:15 93 24 40 05/19/23 23:55 94 05/19/23 23:48 96 161/112 97 05/19/23 23:32 88 05/19/23 23:12 79 24 131/85 100 05/19/23 23:10 40 05/19/23 22:16 100 05/19/23 22:03 100 05/19/23 21:12 129 H 24 185/123 93 L 05/19/23 18:50 98 F 68 18 132/90 93 L Intake and Output 05/19/23 05/20/23 05/20/23 22:59 06:59 14:59 Intake Total 991.728 130 Output Total 535 110 Balance 456.728 20 Intake: IV 880 130 Piperacillin-Tazobactam 3 100 .375 gm In Sodium Chloride 0.9% 100 ml @ 25 mls/hr IVPB Q8H [facility] Rx#: [id number] Sodium Chloride 0.9% 1, 780 130 000 ml @ 130 mls/hr IV . [id number] RAGHU Rx#:[id number] Intake, IV Titration 111.728 Amount Cisatracurium 200 mg In 7.858 Sodium Chloride 0.9% 180 ml @ 1 MCG/KG/MIN 4.491 mls/hr IV .Q24H [facility]AGHU Rx#: [id number] fentaNYL (PF). 1,000 mcg 14.843 In Sodium Chloride 0.9% 80 ml @ 0.5 MCG/KG/HR 3. 742 mls/hr IV .Q24H [facility]AGHU Rx#:[id number] propofoL 1,000 mg In 89.027 Empty Bag 1 bag @ 15 MCG/ KG/MIN 6.736 mls/hr IV . [id number] RAGHU Rx#:[id number] Output: Urine 535 110 Other: Voiding Method Indwelling Catheter Weight 74.843 kg 85.8 kg GENERAL EXAM: Intubated, sedated, paralyzed 63-year-old male patient, in no apparent distress. HEAD: Normocephalic. EYES: Normal reaction of pupils, equal size. NOSE: Clear with pink turbinates. THROAT: No erythema or exudates. NECK: No masses, no JVD. CHEST: No chest wall deformity. LUNGS: Equal air entry with no crackles, wheeze, rhonchi or dullness. CVS: S1 and S2 normal with no audible murmur, regular rhythm. ABDOMEN: No hepatosplenomegaly, normal bowel sounds, no guarding or rigidity. SPINE: No scoliosis or deformity SKIN: No rashes CENTRAL NERVOUS SYSTEM: Sedated, paralyzed, tone is normal in all 4 extremities. EXTREMITIES: There is no peripheral edema. No clubbing, no cyanosis. Peripheral pulses are intact. Results - Laboratory Findings CBC and BMP: 05/19/23 23:08 05/19/23 23:08 ABG ABG pH 7.33 (7.35-7.45) L 05/20/23 06:32 ABG pCO2 42 mmHg (35-45) 05/20/23 06:32 ABG pO2 147 mmHg (83-108) H 05/20/23 06:32 ABG O2 Saturation 99.3 % (94-97) H 05/20/23 06:32 PT/INR, D-dimer PT 9.5 sec (10.0-12.5) L 05/19/23 19:26 INR 0.8 (<1.2) 05/19/23 19:26 D-Dimer 0.33 mg/L FEU (<0.60) 05/19/23 19:26 Abnormal lab findings: Abnormal Labs 05/19/23 05/19/23 05/19/23 19:09 19:25 19:25 WBC 38.5 H RBC Hgb Hct Neutrophils # 36.7 H Lymphocytes # 0.6 L Monocytes # PT APTT ABG pH ABG pCO2 ABG pO2 ABG Total CO2 ABG O2 Saturation Carbon Dioxide 21 L BUN 26 H Glucose 122 H POC Glucose (mg/dL) 130 H Plasma Lactic Acid [place] Calcium Alkaline Phosphatase 130 H Troponin I Ur Specific [place] Urine Protein Urine Blood Urine RBC Urine Bacteria Hyaline Casts Urine Mucus 05/19/23 05/19/23 05/19/23 19:25 19:25 19:26 WBC RBC Hgb Hct Neutrophils # Lymphocytes # Monocytes # PT 9.5 L APTT 20.2 L ABG pH ABG pCO2 ABG pO2 ABG Total CO2 ABG O2 Saturation Carbon Dioxide BUN Glucose POC Glucose (mg/dL) Plasma Lactic Acid [place] 4.9 H* Calcium Alkaline Phosphatase Troponin I 0.051 H* Ur Specific [place] Urine Protein Urine Blood Urine RBC Urine Bacteria Hyaline Casts Urine Mucus 05/19/23 05/19/23 05/19/23 23:00 23:08 23:08 WBC 37.8 H RBC 4.12 L Hgb 12.3 L Hct 38.4 L Neutrophils # 36.0 H Lymphocytes # 0.5 L Monocytes # 1.1 H PT APTT ABG pH 7.28 L ABG pCO2 52 H ABG pO2 >400 H ABG Total CO2 26 H ABG O2 Saturation 99.7 H Carbon Dioxide BUN Glucose POC Glucose (mg/dL) Plasma Lactic Acid Pierre 3.6 H* Calcium Alkaline Phosphatase Troponin I Ur Specific [place] Urine Protein Urine Blood Urine RBC Urine Bacteria Hyaline Casts Urine Mucus 05/19/23 05/19/23 05/20/23 23:08 23:32 00:16 WBC RBC Hgb Hct Neutrophils # Lymphocytes # Monocytes # PT APTT ABG pH ABG pCO2 ABG pO2 ABG Total CO2 ABG O2 Saturation Carbon Dioxide BUN 27 H Glucose POC Glucose (mg/dL) 158 H Plasma Lactic Acid Pierre Calcium 8.3 L Alkaline Phosphatase Troponin I Ur Specific [place] >1.050 H Urine Protein 1+ H Urine Blood Small H Urine RBC 18 H Urine Bacteria Rare H Hyaline Casts 122 H Urine Mucus Few H 05/20/23 05/20/23 05:53 06:32 WBC RBC Hgb Hct Neutrophils # Lymphocytes # Monocytes # PT APTT ABG pH 7.33 L ABG pCO2 ABG pO2 147 H ABG Total CO2 ABG O2 Saturation 99.3 H Carbon Dioxide BUN Glucose POC Glucose (mg/dL) 180 H Plasma Lactic Acid [place] Calcium Alkaline Phosphatase Troponin I Ur Specific [place] Urine Protein Urine Blood Urine RBC Urine Bacteria Hyaline Casts Urine Mucus - Diagnostic Findings Chest x-ray: image reviewed CT scan - chest: image reviewed Assessment and Plan Assessment: Acute hypoxemic respiratory failure secondary to an acute exacerbation of COPD and possible continued underlying pneumonia requiring intubation and mechanical ventilatory support on 05/19/2023 Recent discharge on 05/15/2023 for a COPD exacerbation requiring BiPAP support Recent discharge in February 2023 for bilateral pneumonia Chronic and ongoing tobacco dependence of nearly 50 years Daily alcohol use. Marijuana use History of depression Plan: The patient was seen and evaluated Computed tomography scan, chest x-ray, ABGs, labs and medications reviewed We will decrease the FiO2 to 30% Initiate tube feedings Check a pro-calcitonin Continue bronchodilators, Zosyn Central line and arterial lines inserted today Chest x-ray, ABGs and labs in the a.m. We will continue to follow and make further recommendations based on his clinical status I have personally seen and examined the patient, performed the documentation and the assessment and plan as written. Number of minutes spent on the visit: 20, not including procedures.
[2023-05-20 10:46] LABS: African American GFR (CKD) >90 (>60 ml/min/1.73 sqM); Anion Gap 12 mmol/L; Blood Urea Nitrogen 24 mg/dL (9-20); Calcium 7.8 mg/dL (8.4-10.2); Carbon Dioxide 18 mmol/L (22-30); Chloride 110 mmol/L (98-107); Glucose 162 mg/dL (74-99); Non-African American GFR(CKD) 89 (>60 ml/min/1.73 sqM); Potassium 4.2 mmol/L (3.5-5.1); Sodium 140 mmol/L (137-145)
[2023-05-20 11:38] LABS: Glucose,Whole Blood 180 mg/dL (70-110)
--- NOTE | 2023-05-20 16:27 | P.HPIM ---
History of Present Illness H&P Date: 05/20/23 Chief Complaint: Shortness of breath 63-year-old male with past medical history significant for COPD, smokes marijuana and drinks alcohol daily, discharged from here on 05/15/2023 following a COPD exacerbation requiring BiPAP support. Patient came back to the emergency room with an acute episode of shortness of breath. His condition deteriorated and he required intubation and mechanical ventilatory support. He is seen today in the intensive care unit. Morning blood gases revealed a PaO2 of 147, P CO2 42 and a PEEP H of 7.33. He is sedated. X-ray reveals multifocal airspace opacities. CT angiogram ruled out saddle emboli. Groundglass infiltrates in the upper and mid lungs. Possible underlying bronchomalacia particularly the right mainstem bronchus. White count 37.8. Hemoglobin 12.3. D-dimer 0.33. Sodium 141 potassium 4.1. Bicarb 22. BUN 27. Creatinine 1.14. Glucose 180. AST 32. ALT 43. Troponin 0.051. ProBNP 1250. He's been initiated and DuoNeb inhalations every 4 hours and antibiotics in the form of Zosyn. Review of Systems ROS unobtainable: due to endotracheal tube Past Medical History Past Medical History: COPD, Pneumonia Additional Past Medical History / Comment(s): back pain History of Any Multi-Drug Resistant Organisms: None Reported Past Surgical History: Back Surgery, Cardiac Ablation Additional Past Surgical History / Comment(s): neck fusion,rt eye surgery, rt hand surgery, cateracts Past Anesthesia/Blood Transfusion Reactions: No Reported Reaction Past Psychological History: Depression Smoking Status: Current every day smoker Past Alcohol Use History: Occasional Past Drug Use History: Marijuana - Past Family History Mother History Unknown: Yes Family Medical History: Myocardial Infarction ([place]) Additional Family Medical History / Comment(s): from [place] Medications and Allergies Home Medications Medication Instructions Recorded Confirmed Type DULoxetine HCL [Cymbalta] 60 mg PO DAILY 04/15/22 05/19/23 History Baclofen [Lioresal] 20 mg PO TID PRN 01/13/23 05/19/23 History Budesonide-Formot 160-4.5 Mcg 2 puff INHALATION RT-BID 03/12/23 05/19/23 History [Symbicort 160-4.5 Mcg Inhaler] Ipratropium-Albuterol Nebulize 3 ml INHALATION RT-QID #100 each 03/15/23 05/19/23 Rx [Duoneb 0.5 mg-3 mg/3 ml Soln] Albuterol Sulfate [Ventolin HFA] 2 puff INHALATION RT-QID PRN 05/10/23 05/19/23 History DULoxetine HCL [Cymbalta] 30 mg PO HS 05/10/23 05/19/23 History HYDROcodone/APAP 7.5-325MG [[place] 1 tab PO BID PRN 05/10/23 05/19/23 History 7.5-325] Ipratropium [place] 0.06%Nasal 2 spr EA NOSTRIL TID 05/10/23 05/19/23 History [Atrovent Nasal 0.06%] Meloxicam [Mobic] 15 mg PO DAILY 05/10/23 05/19/23 History Tamsulosin [Flomax] 0.4 mg PO DAILY 05/10/23 05/19/23 History amLODIPine [Norvasc] 5 mg PO DAILY #30 tab 05/15/23 05/19/23 Rx Amoxic-Pot Clav 875-125Mg 1 tab PO Q12HR 05/19/23 05/19/23 History [Augmentin 875-125] predniSONE See Taper PO DIRECTED 05/19/23 05/19/23 History Allergies Allergy/AdvReac Type Severity Reaction Status Date / Time potassium chloride Allergy Swelling Verified 05/19/23 21:53 [From Klor-Con] sacubitril [From Entresto] Allergy Unknown Verified 05/19/23 21:53 trazodone Allergy Rash/Hives Verified 05/19/23 21:53 valsartan [From Entresto] Allergy Unknown Verified 05/19/23 21:53 Physical Exam Vitals: Vital Signs Temp Pulse Pulse Resp BP Pulse Ox FiO2 05/20/23 09:00 84 24 99 05/20/23 08:03 85 05/20/23 08:00 98.4 F 84 24 103/65 98 40 05/20/23 07:57 84 05/20/23 07:52 30 05/20/23 07:00 82 24 100/62 98 05/20/23 06:00 84 24 106/72 100 05/20/23 05:00 80 24 103/71 100 12/24/23 04:53 79 05/20/23 04:44 40 05/20/23 04:42 77 05/20/23 04:00 98.3 F 77 93 24 107/71 100 40 05/20/23 03:00 103 H 27 H 108/77 100 05/20/23 02:59 94 05/20/23 02:41 40 05/20/23 02:35 83 05/20/23 02:00 79 24 111/71 99 05/20/23 01:00 83 24 126/80 99 05/20/23 00:55 86 05/20/23 00:48 40 05/20/23 00:46 87 05/20/23 00:17 96.8 F L 82 24 100 40 05/20/23 00:15 93 24 40 05/19/23 23:55 94 05/19/23 23:48 96 161/112 97 05/19/23 23:32 88 05/19/23 23:12 79 24 131/85 100 05/19/23 23:10 40 05/19/23 22:16 100 05/19/23 22:03 100 05/19/23 21:12 129 H 24 185/123 93 L 05/19/23 18:50 98 F 68 18 132/90 93 L Intake and Output 05/19/23 05/20/23 05/20/23 22:59 06:59 14:59 Intake Total 991.728 584.666 Output Total 535 285 Balance 456.728 299.666 Intake: IV 880 545 Piperacillin-Tazobactam 3 100 .375 gm In Sodium Chloride 0.9% 100 ml @ 25 mls/hr IVPB Q8H [facility] Rx#: [id number] Piperacillin-Tazobactam 3 25 .375 gm In Sodium Chloride 0.9% 100 ml @ 25 mls/hr IVPB Q8HR [facility] Rx# :[id number] Sodium Chloride 0.9% 1, 780 520 000 ml @ 130 mls/hr IV . Q7H42M [facility] Rx#:[id number] Intake, IV Titration 111.728 39.666 Amount Cisatracurium 200 mg In 7.858 39.666 Sodium Chloride 0.9% 180 ml @ 1 MCG/KG/MIN 4.491 mls/hr IV .Q24H [facility] Rx#: [id number] fentaNYL (PF). 1,000 mcg 14.843 In Sodium Chloride 0.9% 80 ml @ 0.5 MCG/KG/HR 3. 742 mls/hr IV .Q24H [facility] Rx#:[id number] propofoL 1,000 mg In 89.027 Empty Bag 1 bag @ 15 MCG/ KG/MIN 6.736 mls/hr IV . [id number] [facility] Rx#:[id number] Output: Urine 535 285 Other: Voiding Method Indwelling Catheter Weight 74.843 kg 85.8 kg ABP, PAP, CO, CI - Last 8 Hours Arterial Blood Pressure 109/68 GENERAL EXAM: Intubated, sedated, paralyzed 63-year-old male patient, in no apparent distress. HEAD: Normocephalic. NECK: No masses, no JVD. CHEST: No chest wall deformity. LUNGS: Equal air entry with no crackles, wheeze, rhonchi or dullness. CVS: S1 and S2 normal with no audible murmur, regular rhythm. ABDOMEN: No hepatosplenomegaly, normal bowel sounds, no guarding or rigidity. SKIN: No rashes CENTRAL NERVOUS SYSTEM: Sedated, paralyzed, tone is normal in all 4 extremities. EXTREMITIES: There is no peripheral edema. No clubbing, no cyanosis. Peripheral pulses are intact. Results CBC & Chem 7: 05/19/23 23:08 05/20/23 05:44 Labs: Abnormal Lab Results - Last 24 Hours (Table) 05/19/23 05/19/23 05/19/23 Range/Units 19:09 19:25 19:25 WBC 38.5 H (3.8-10.6) k/uL RBC (4.30-5.90) m/uL Hgb (13.0-17.5) gm/dL Hct (39.0-53.0) % Neutrophils # 36.7 H (1.3-7.7) k/uL Lymphocytes # 0.6 L (1.0-4.8) k/uL Monocytes # (0-1.0) k/uL PT (10.0-12.5) sec APTT (22.0-30.0) sec ABG pH (7.35-7.45) ABG pCO2 (35-45) mmHg ABG pO2 (83-108) mmHg ABG Total CO2 (19-24) mmol/L ABG O2 Saturation (94-97) % Chloride (98-107) mmol/L Carbon Dioxide 21 L (22-30) mmol/L BUN 26 H (9-20) mg/dL Glucose 122 H (74-99) mg/dL POC Glucose (mg/dL) 130 H (70-110) mg/dL Plasma Lactic Acid Pierre (0.7-2.0) mmol/L Calcium (8.4-10.2) mg/dL Alkaline Phosphatase 130 H (38-126) U/L Troponin I (0.000-0.034) ng/mL Ur Specific [place] (1.001-1.035) Urine Protein (Negative) Urine Blood (Negative) Urine RBC (0-5) /hpf Urine Bacteria (None) /hpf Hyaline Casts (0-2) /lpf Urine Mucus (None) /hpf 05/19/23 05/19/23 05/19/23 Range/Units 19:25 19:25 19:26 WBC (3.8-10.6) k/uL RBC (4.30-5.90) m/uL Hgb (13.0-17.5) gm/dL Hct (39.0-53.0) % Neutrophils # (1.3-7.7) k/uL Lymphocytes # (1.0-4.8) k/uL Monocytes # (0-1.0) k/uL PT 9.5 L (10.0-12.5) sec APTT 20.2 L (22.0-30.0) sec ABG pH (7.35-7.45) ABG pCO2 (35-45) mmHg ABG pO2 (83-108) mmHg ABG Total CO2 (19-24) mmol/L ABG O2 Saturation (94-97) % Chloride (98-107) mmol/L Carbon Dioxide (22-30) mmol/L BUN (9-20) mg/dL Glucose (74-99) mg/dL POC Glucose (mg/dL) (70-110) mg/dL Plasma Lactic Acid Pierre 4.9 H* (0.7-2.0) mmol/L Calcium (8.4-10.2) mg/dL Alkaline Phosphatase (38-126) U/L Troponin I 0.051 H* (0.000-0.034) ng/mL Ur Specific [place] (1.001-1.035) Urine Protein (Negative) Urine Blood (Negative) Urine RBC (0-5) /hpf Urine Bacteria (None) /hpf Hyaline Casts (0-2) /lpf Urine Mucus (None) /hpf 05/19/23 05/19/23 05/19/23 Range/Units 23:00 23:08 23:08 WBC 37.8 H (3.8-10.6) k/uL RBC 4.12 L (4.30-5.90) m/uL Hgb 12.3 L (13.0-17.5) gm/dL Hct 38.4 L (39.0-53.0) % Neutrophils # 36.0 H (1.3-7.7) k/uL Lymphocytes # 0.5 L (1.0-4.8) k/uL Monocytes # 1.1 H (0-1.0) k/uL PT (10.0-12.5) sec APTT (22.0-30.0) sec ABG pH 7.28 L (7.35-7.45) ABG pCO2 52 H (35-45) mmHg ABG pO2 >400 H (83-108) mmHg ABG Total CO2 26 H (19-24) mmol/L ABG O2 Saturation 99.7 H (94-97) % Chloride (98-107) mmol/L Carbon Dioxide (22-30) mmol/L BUN (9-20) mg/dL Glucose (74-99) mg/dL POC Glucose (mg/dL) (70-110) mg/dL Plasma Lactic Acid Pierre 3.6 H* (0.7-2.0) mmol/L Calcium (8.4-10.2) mg/dL Alkaline Phosphatase (38-126) U/L Troponin I (0.000-0.034) ng/mL Ur Specific [place] (1.001-1.035) Urine Protein (Negative) Urine Blood (Negative) Urine RBC (0-5) /hpf Urine Bacteria (None) /hpf Hyaline Casts (0-2) /lpf Urine Mucus (None) /hpf 05/19/23 05/19/23 05/20/23 Range/Units 23:08 23:32 00:16 WBC (3.8-10.6) k/uL RBC (4.30-5.90) m/uL Hgb (13.0-17.5) gm/dL Hct (39.0-53.0) % Neutrophils # (1.3-7.7) k/uL Lymphocytes # (1.0-4.8) k/uL Monocytes # (0-1.0) k/uL PT (10.0-12.5) sec APTT (22.0-30.0) sec ABG pH (7.35-7.45) ABG pCO2 (35-45) mmHg ABG pO2 (83-108) mmHg ABG Total CO2 (19-24) mmol/L ABG O2 Saturation (94-97) % Chloride (98-107) mmol/L Carbon Dioxide (22-30) mmol/L BUN 27 H (9-20) mg/dL Glucose (74-99) mg/dL POC Glucose (mg/dL) 158 H (70-110) mg/dL Plasma Lactic Acid [place] (0.7-2.0) mmol/L Calcium 8.3 L (8.4-10.2) mg/dL Alkaline Phosphatase (38-126) U/L Troponin I (0.000-0.034) ng/mL Ur Specific [place] >1.050 H (1.001-1.035) Urine Protein 1+ H (Negative) Urine Blood Small H (Negative) Urine RBC 18 H (0-5) /hpf Urine Bacteria Rare H (None) /hpf Hyaline Casts 122 H (0-2) /lpf Urine Mucus Few H (None) /hpf 05/20/23 05/20/23 05/20/23 Range/Units 05:44 05:53 06:32 WBC (3.8-10.6) k/uL RBC (4.30-5.90) m/uL Hgb (13.0-17.5) gm/dL Hct (39.0-53.0) % Neutrophils # (1.3-7.7) k/uL Lymphocytes # (1.0-4.8) k/uL Monocytes # (0-1.0) k/uL PT (10.0-12.5) sec APTT (22.0-30.0) sec ABG pH 7.33 L (7.35-7.45) ABG pCO2 (35-45) mmHg ABG pO2 147 H (83-108) mmHg ABG Total CO2 (19-24) mmol/L ABG O2 Saturation 99.3 H (94-97) % Chloride 110 H (98-107) mmol/L Carbon Dioxide 18 L (22-30) mmol/L BUN 24 H (9-20) mg/dL Glucose 162 H (74-99) mg/dL POC Glucose (mg/dL) 180 H (70-110) mg/dL Plasma Lactic Acid Pierre (0.7-2.0) mmol/L Calcium 7.8 L (8.4-10.2) mg/dL Alkaline Phosphatase (38-126) U/L Troponin I (0.000-0.034) ng/mL Ur Specific [place] (1.001-1.035) Urine Protein (Negative) Urine Blood (Negative) Urine RBC (0-5) /hpf Urine Bacteria (None) /hpf Hyaline Casts (0-2) /lpf Urine Mucus (None) /hpf Thrombosis Risk Factor Assmnt - Choose All That Apply Each Factor Represents 1 point: Abnormal pulmonary function (COPD), Medical pt on bed rest, Obesity (BMI >25), Sepsis (< 1month) Other Risk Factors: Yes Each Risk Factor Represents 2 Points: Age 61-74 years Other congenital or acquired thrombophilia - If yes, enter type in comment: No Thrombosis Risk Factor Assessment Total Risk Factor Score: 6 Thrombosis Risk Factor Assessment Level: High Risk Assessment and Plan Assessment: 1. Acute hypoxic respiratory failure; related to COPD exacerbation/pneumonia -- Patient is currently intubated and mechanically ventilated -- Was recently treated and discharged with COPD exacerbation requiring BiPAP support -- Patient is currently on IV Zosyn -- Intensive care service on board and recommending to continue with current antibiotics 2. Acute exacerbation COPD; continue with bronchodilator nebulizer treatments 4 times a day and when necessary 3. Bilateral pneumonia; continue with IV Zosyn; monitor CBC, CRP and pro- calcitonin 4. Chronic tobacco use 5. Substance abuse; patient uses marijuana and alcohol use daily DVT prophylaxis; SCDs/subcu heparin CODE STATUS; full code
[2023-05-20 17:47] LABS: Glucose,Whole Blood 151 mg/dL (70-110)
[2023-05-20] MEDS: INSULIN ASPART (NovoLOG) 100 UNIT/ML VIAL SQ SCH (17:50)
[2023-05-20 21:35] LABS: Basophils % (A) 0 %; Eosinophils % (A) 0 %; HCT 32.6 % (39.0-53.0); HGB 10.6 gm/dL (13.0-17.5); Lymphocytes # (A) 0.9 k/uL (1.0-4.8); Lymphocytes % (A) 7 %; MCH 29.7 pg (25.0-35.0); MCHC 32.6 g/dL (31.0-37.0); MCV 91.1 fL (80.0-100.0); Mean Platelet Volume 9.4; Monocytes # (A) 0.5 k/uL (0-1.0); Monocytes % (A) 4 %; Neutrophils # (A) 12.1 k/uL (1.3-7.7); Neutrophils % (A) 89 %; Platelet Count 241 k/uL (150-450); RBC 3.58 m/uL (4.30-5.90); RDW 14.5 % (11.5-15.5); WBC 13.7 k/uL (3.8-10.6)
[2023-05-20 23:49] LABS: Glucose,Whole Blood 130 mg/dL (70-110)
[2023-05-21 05:06] LABS: Basophils % (A) 0 %; Eosinophils % (A) 0 %; HCT 32.8 % (39.0-53.0); HGB 10.9 gm/dL (13.0-17.5); Lymphocytes # (A) 1.6 k/uL (1.0-4.8); Lymphocytes % (A) 11 %; MCH 30.2 pg (25.0-35.0); MCHC 33.2 g/dL (31.0-37.0); MCV 90.9 fL (80.0-100.0); Mean Platelet Volume 8.9; Monocytes # (A) 0.6 k/uL (0-1.0); Monocytes % (A) 4 %; Neutrophils # (A) 11.9 k/uL (1.3-7.7); Neutrophils % (A) 83 %; Platelet Count 243 k/uL (150-450); RBC 3.61 m/uL (4.30-5.90); RDW 14.6 % (11.5-15.5); WBC 14.3 k/uL (3.8-10.6)
[2023-05-21 05:41] LABS: African American GFR (CKD) >90 (>60 ml/min/1.73 sqM); Anion Gap 7 mmol/L; Blood Urea Nitrogen 19 mg/dL (9-20); Calcium 7.9 mg/dL (8.4-10.2); Carbon Dioxide 22 mmol/L (22-30); Chloride 109 mmol/L (98-107); Glucose 101 mg/dL (74-99); Non-African American GFR(CKD) >90 (>60 ml/min/1.73 sqM); Potassium 4.1 mmol/L (3.5-5.1); Sodium 138 mmol/L (137-145)
[2023-05-21 05:47] LABS: ABG Base Excess -0.1 mmol/L; ABG HCO3 24 mmol/L (21-25); ABG Oxygen Saturation 98.6 % (94-97); ABG PCO2 36 mmHg (35-45); ABG PH 7.44 (7.35-7.45); ABG PO2 99 mmHg (83-108); ABG TCO2 25 mmol/L (19-24)
[2023-05-21 05:49] LABS: Allen Test Performed? No
[2023-05-21 05:58] LABS: Glucose,Whole Blood 113 mg/dL (70-110)
--- NOTE | 2023-05-21 10:04 | P.PN ---
Subjective Progress Note Date: 05/21/23 This is a 63-year-old male with past medical history significant for pression COPD. He continues to smoke one pack per day, smokes marijuana and drinks alcohol daily. He was just discharged from here on 05/15/2023 following a COPD exacerbation requiring BiPAP support. He was still on Augmentin and prednisone taper. He came back to the emergency room last evening following an acute episode of shortness of breath. His condition deteriorated and he required intubation and mechanical ventilatory support. He is seen today in the intensive care unit. He is on the ventilator and assist control mode at a rate of 24, tidal volume 450, FiO2 40% and a PEEP of 5. Morning blood gases revealed a PaO2 of 147, P CO2 42 and a PEEP H of 7.33. He has normal saline at 130 ML's per hour. He is sedated on propofol at 45 mcg/kg/m. Currently on fentanyl at 1 mcg/kg per hour. Nimbex at 2 mcg/kg/m. X-ray reveals multifocal airspace opacities. Endotracheal tube and nasogastric tubes in good position. Left IJ Glendo-Arianna catheter good position. CT angiogram ruled out saddle emboli. Groundglass infiltrates in the upper and mid lungs. Possible underlying bronchomalacia particularly the right mainstem bronchus. White count 37.8. Hemoglobin 12.3. D-dimer 0.33. Sodium 141 potassium 4.1. Bicarb 22. BUN 27. Creatinine 1.14. Glucose 180. AST 32. ALT 43. Troponin 0.051. ProBNP 1250. He's been initiated and DuoNeb inhalations every 4 hours and antibiotics in the form of Zosyn. The patient is seen today 05/21/2023 in follow-up in the intensive care unit. He remains intubated on the mechanical ventilator and assist control mode at a rate of 24, tidal volume 450, FiO2 30% and a PEEP of 5. Morning blood gases reveal a P O2 of 99, pCO2 of 36 and a pH of 7.44. He is sedated on propofol at 50 mg/kg/m, fentanyl at 2 mcg/kg per hour, Nimbex at 4 mcg/kg/m. Normal saline at 130 ML's per hour. His pro calcitonin was 0.72. He remains on Zosyn. Chest x-ray continues to show multifocal airspace opacities. Sputum culture is pending. White count 14.3. Hemoglobin 10.9. Platelets 243. Sodium 138. Potassium 4.1. Bicarb 22. BUN 19. Creatinine 0.68. Glucose 101. He remains on DuoNeb inhalations every 4 hours. He is being nourished with vital HP @ 20 ML's per hour Objective - Vital Signs Vital signs: Vital Signs Temp 97.8 F 05/21/23 08:00 Pulse 76 05/21/23 09:01 Resp 24 05/21/23 08:00 BP 114/78 05/21/23 08:00 Pulse Ox 98 05/21/23 08:00 FiO2 30 05/21/23 08:31 Intake & Output 05/20/23 05/21/23 05/21/23 18:59 06:59 18:59 Intake Total 2029.797 2734.355 165.743 Output Total 765 1025 125 Balance 9220.853 1222.355 40.743 Weight 85.8 kg 84.2 kg Intake: IV 1685 1804 133 A line 39 3 Piperacillin-Tazobactam 3 125 75 .375 gm In Sodium Chloride 0.9% 100 ml @ 25 mls/hr IVPB Q8HR [facility] Rx# :[id number] Sodium Chloride 0.9% 1, 1560 1690 130 000 ml @ 130 mls/hr IV . Q7H42M [facility] Rx#:[id number] Intake, IV Titration 294.797 680.355 32.743 Amount Cisatracurium 200 mg In 39.666 275.520 Sodium Chloride 0.9% 180 ml @ 1 MCG/KG/MIN 4.491 mls/hr IV .Q24H [facility] Rx#: [id number] Piperacillin-Tazobactam 3 100 .375 gm In Sodium Chloride 0.9% 100 ml @ 25 mls/hr IVPB Q8H [facility] Rx#: [id number] fentaNYL (PF). 1,000 mcg 68.229 121.953 32.743 In Sodium Chloride 0.9% 80 ml @ 0.5 MCG/KG/HR 3. 742 mls/hr IV .Q24H [facility] Rx#:[id number] propofoL 1,000 mg In 186.902 182.882 Empty Bag 1 bag @ 15 MCG/ KG/MIN 6.736 mls/hr IV . [id number] [facility] Rx#:[id number] Tube Feeding 20 160 0 Other 30 90 Output: Urine 765 1025 125 Other: Voiding Method Indwelling Catheter Indwelling Catheter ABP, PAP, CO, CI - Last Documented Arterial Blood Pressure 130/72 - Exam GENERAL EXAM: Intubated, sedated, paralyzed 63-year-old male, in no apparent distress. HEAD: Normocephalic. EYES: Normal reaction of pupils, equal size. NOSE: Clear with pink turbinates. THROAT: No erythema or exudates. NECK: No masses, no JVD. CHEST: No chest wall deformity. LUNGS: Equal air entry with few scattered rhonchi. CVS: S1 and S2 normal with no audible murmur, regular rhythm. ABDOMEN: No hepatosplenomegaly, normal bowel sounds, no guarding or rigidity. SPINE: No scoliosis or deformity SKIN: No rashes CENTRAL NERVOUS SYSTEM: Sedated, paralyzed, tone is normal in all 4 extremities. EXTREMITIES: There is no peripheral edema. No clubbing, no cyanosis. Periphe ral pulses are intact. - Labs CBC & Chem 7: 05/21/23 04:45 05/21/23 04:45 Labs: Abnormal Lab Results - Last 24 Hours (Table) 05/20/23 05/20/23 05/20/23 Range/Units 05:44 05:44 11:37 WBC (3.8-10.6) k/uL RBC (4.30-5.90) m/uL Hgb (13.0-17.5) gm/dL Hct (39.0-53.0) % Neutrophils # (1.3-7.7) k/uL Lymphocytes # (1.0-4.8) k/uL ABG Total CO2 (19-24) mmol/L ABG O2 Saturation (94-97) % Chloride 110 H (98-107) mmol/L Carbon Dioxide 18 L (22-30) mmol/L BUN 24 H (9-20) mg/dL Glucose 162 H (74-99) mg/dL POC Glucose (mg/dL) 180 H (70-110) mg/dL Calcium 7.8 L (8.4-10.2) mg/dL Procalcitonin 0.72 H (0.02-0.09) ng/mL 05/20/23 05/20/23 05/20/23 Range/Units 17:46 21:30 23:47 WBC 13.7 H (3.8-10.6) k/uL RBC 3.58 L (4.30-5.90) m/uL Hgb 10.6 L (13.0-17.5) gm/dL Hct 32.6 L (39.0-53.0) % Neutrophils # 12.1 H (1.3-7.7) k/uL Lymphocytes # 0.9 L (1.0-4.8) k/uL ABG Total CO2 (19-24) mmol/L ABG O2 Saturation (94-97) % Chloride (98-107) mmol/L Carbon Dioxide (22-30) mmol/L BUN (9-20) mg/dL Glucose (74-99) mg/dL POC Glucose (mg/dL) 151 H 130 H (70-110) mg/dL Calcium (8.4-10.2) mg/dL Procalcitonin (0.02-0.09) ng/mL 05/21/23 05/21/23 05/21/23 Range/Units 04:45 04:45 05:33 WBC 14.3 H (3.8-10.6) k/uL RBC 3.61 L (4.30-5.90) m/uL Hgb 10.9 L (13.0-17.5) gm/dL Hct 32.8 L (39.0-53.0) % Neutrophils # 11.9 H (1.3-7.7) k/uL Lymphocytes # (1.0-4.8) k/uL ABG Total CO2 25 H (19-24) mmol/L ABG O2 Saturation 98.6 H (94-97) % Chloride 109 H (98-107) mmol/L Carbon Dioxide (22-30) mmol/L BUN (9-20) mg/dL Glucose 101 H (74-99) mg/dL POC Glucose (mg/dL) (70-110) mg/dL Calcium 7.9 L (8.4-10.2) mg/dL Procalcitonin (0.02-0.09) ng/mL 05/21/23 Range/Units 05:57 WBC (3.8-10.6) k/uL RBC (4.30-5.90) m/uL Hgb (13.0-17.5) gm/dL Hct (39.0-53.0) % Neutrophils # (1.3-7.7) k/uL Lymphocytes # (1.0-4.8) k/uL ABG Total CO2 (19-24) mmol/L ABG O2 Saturation (94-97) % Chloride (98-107) mmol/L Carbon Dioxide (22-30) mmol/L BUN (9-20) mg/dL Glucose (74-99) mg/dL POC Glucose (mg/dL) 113 H (70-110) mg/dL Calcium (8.4-10.2) mg/dL Procalcitonin (0.02-0.09) ng/mL Microbiology - Last 24 Hours (Table) 05/19/23 23:43 Gram Stain - Preliminary Sputum Assessment and Plan Assessment: Acute hypoxemic respiratory failure secondary to an acute exacerbation of COPD and possible continued underlying pneumonia requiring intubation and mechanical ventilatory support on 05/19/2023 Recent discharge on 05/15/2023 for a COPD exacerbation requiring BiPAP support Recent discharge in February 2023 for bilateral pneumonia Chronic and ongoing tobacco dependence of nearly 50 years Daily alcohol use. Marijuana use History of depression Plan: The patient was seen and evaluated Chest x-ray, ABGs, labs and medications reviewed Continue the current ventilator settings Plan is to wean off the Nimbex today Continue bronchodilators, Zosyn Chest x-ray, ABGs and labs in the a.m. We will continue to follow I have personally seen and examined the patient, performed the documentation and the assessment and plan as written. Number of minutes spent on the visit: 15.
--- NOTE | 2023-05-21 10:07 | XR ---
EXAMINATION TYPE: XR chest 1V portable DATE OF EXAM: 05/21/2023 Comparison: 05/20/2023 Clinical History: 63-year-old male OG placement and Resp. Failure Findings: ET and NG tube are satisfactory. Left CVC tip at the lower SVC. Heart upper limits of normal size. Di ffuse interstitial and patchy opacities persist though aeration is improving from prior. No sizable p leural effusion on the frontal view. Posterior cervical fusion hardware partially visualized. Impression: Improving interstitial lung disease, possible improving pulmonary edema. Clinically correlate.
[2023-05-21 11:49] LABS: Glucose,Whole Blood 100 mg/dL (70-110)
--- NOTE | 2023-05-21 15:02 | P.PN ---
Subjective Progress Note Date: 05/21/23 63-year-old male with past medical history significant for COPD, smokes marijuana and drinks alcohol daily, discharged from here on 05/15/2023 following a COPD exacerbation requiring BiPAP support. Patient came back to the emergency room with an acute episode of shortness of breath. His condition deteriorated and he required intubation and mechanical ventilatory support. He is seen today in the intensive care unit. Morning blood gases revealed a PaO2 of 147, P CO2 42 and a PEEP H of 7.33. He is sedated. X-ray reveals multifocal airspace opacities. CT angiogram ruled out saddle emboli. Groundglass infiltrates in the upper and mid lungs. Possible underlying bronchomalacia particularly the right mainstem bronchus. White count 37.8. Hemoglobin 12.3. D-dimer 0.33. Sodium 141 potassium 4.1. Bicarb 22. BUN 27. Creatinine 1.14. Glucose 180. AST 32. ALT 43. Troponin 0.051. ProBNP 1250. He's been initiated and DuoNeb inhalations every 4 hours and antibiotics in the form of Zosyn. 05/21/2023 Patient is seen and evaluated in follow-up in the intensive care unit. He remains intubated on the mechanical ventilator. Patient remained sedated Blood gases reveal a PO2 of 99, pCO2 of 36 and a pH of 7.44 -- pro calcitonin was 0.72. He remains on Zosyn. Chest x-ray continues to show multifocal airspace opacities. Sputum culture is pending. -- White count 14.3. Hemoglobin 10.9. Platelets 243. Sodium 138. Potassium 4.1. Bicarb 22. BUN 19. Creatinine 0.68. Glucose 101. Objective - Vital Signs Vital signs: Vital Signs Temp 97.8 F 05/21/23 08:00 Pulse 80 05/21/23 11:44 Resp 24 05/21/23 10:00 BP 120/71 05/21/23 10:00 Pulse Ox 99 05/21/23 10:00 FiO2 30 05/21/23 11:41 Intake & Output 05/20/23 05/21/23 05/21/23 18:59 06:59 18:59 Intake Total 2029.797 2734.355 684.360 Output Total 765 1025 450 Balance 6010.096 0625.355 234.360 Weight 85.8 kg 84.2 kg Intake: IV 1685 1804 532 A line 39 12 Piperacillin-Tazobactam 3 125 75 .375 gm In Sodium Chloride 0.9% 100 ml @ 25 mls/hr IVPB Q8HR [facility] Rx# :[id number] Sodium Chloride 0.9% 1, 1560 1690 520 000 ml @ 130 mls/hr IV . Q7H42M [facility] Rx#:[id number] Intake, IV Titration 294.797 680.355 152.360 Amount Cisatracurium 200 mg In 39.666 275.520 82.943 Sodium Chloride 0.9% 180 ml @ 1 MCG/KG/MIN 4.491 mls/hr IV .Q24H [facility] Rx#: [id number] Piperacillin-Tazobactam 3 100 .375 gm In Sodium Chloride 0.9% 100 ml @ 25 mls/hr IVPB Q8H [facility] Rx#: [id number] fentaNYL (PF). 1,000 mcg 68.229 121.953 69.417 In Sodium Chloride 0.9% 80 ml @ 0.5 MCG/KG/HR 3. 742 mls/hr IV .Q24H [facility] Rx#:[id number] propofoL 1,000 mg In 186.902 182.882 Empty Bag 1 bag @ 15 MCG/ KG/MIN 6.736 mls/hr IV . [id number] [facility] Rx#:[id number] Tube Feeding 20 160 0 Other 30 90 Output: Urine 765 1025 450 Other: Voiding Method Indwelling Catheter Indwelling Catheter ABP, PAP, CO, CI - Last Documented Arterial Blood Pressure 119/64 - Exam GENERAL EXAM: Intubated, sedated, paralyzed 63-year-old male, in no apparent distress. HEAD: Normocephalic. NECK: No masses, no JVD. CHEST: No chest wall deformity. LUNGS: Equal air entry with few scattered rhonchi. CVS: S1 and S2 normal with no audible murmur, regular rhythm. ABDOMEN: No hepatosplenomegaly, normal bowel sounds, no guarding or rigidity. SPINE: No scoliosis or deformity SKIN: No rashes CENTRAL NERVOUS SYSTEM: Sedated, paralyzed, tone is normal in all 4 extremities. EXTREMITIES: There is no peripheral edema. No clubbing, no cyanosis. Peripheral pulses are intact. - Labs CBC & Chem 7: 05/21/23 04:45 05/21/23 04:45 Labs: Abnormal Lab Results - Last 24 Hours (Table) 05/20/23 05/20/23 05/20/23 Range/Units 05:44 17:46 21:30 WBC 13.7 H (3.8-10.6) k/uL RBC 3.58 L (4.30-5.90) m/uL Hgb 10.6 L (13.0-17.5) gm/dL Hct 32.6 L (39.0-53.0) % Neutrophils # 12.1 H (1.3-7.7) k/uL Lymphocytes # 0.9 L (1.0-4.8) k/uL ABG Total CO2 (19-24) mmol/L ABG O2 Saturation (94-97) % Chloride (98-107) mmol/L Glucose (74-99) mg/dL POC Glucose (mg/dL) 151 H (70-110) mg/dL Calcium (8.4-10.2) mg/dL Procalcitonin 0.72 H (0.02-0.09) ng/mL 05/20/23 05/21/23 05/21/23 Range/Units 23:47 04:45 04:45 WBC 14.3 H (3.8-10.6) k/uL RBC 3.61 L (4.30-5.90) m/uL Hgb 10.9 L (13.0-17.5) gm/dL Hct 32.8 L (39.0-53.0) % Neutrophils # 11.9 H (1.3-7.7) k/uL Lymphocytes # (1.0-4.8) k/uL ABG Total CO2 (19-24) mmol/L ABG O2 Saturation (94-97) % Chloride 109 H (98-107) mmol/L Glucose 101 H (74-99) mg/dL POC Glucose (mg/dL) 130 H (70-110) mg/dL Calcium 7.9 L (8.4-10.2) mg/dL Procalcitonin (0.02-0.09) ng/mL 05/21/23 05/21/23 Range/Units 05:33 05:57 WBC (3.8-10.6) k/uL RBC (4.30-5.90) m/uL Hgb (13.0-17.5) gm/dL Hct (39.0-53.0) % Neutrophils # (1.3-7.7) k/uL Lymphocytes # (1.0-4.8) k/uL ABG Total CO2 25 H (19-24) mmol/L ABG O2 Saturation 98.6 H (94-97) % Chloride (98-107) mmol/L Glucose (74-99) mg/dL POC Glucose (mg/dL) 113 H (70-110) mg/dL Calcium (8.4-10.2) mg/dL Procalcitonin (0.02-0.09) ng/mL Microbiology - Last 24 Hours (Table) 05/19/23 23:43 Gram Stain - Preliminary Sputum Assessment and Plan Assessment: 1. Acute hypoxic respiratory failure; related to COPD exacerbation/pneumonia -- Patient is currently intubated and mechanically ventilated -- Was recently treated and discharged with COPD exacerbation requiring BiPAP support -- Patient is currently on IV Zosyn -- Intensive care service on board and recommending to continue with current antibiotics 2. Acute exacerbation COPD; continue with bronchodilator nebulizer treatments 4 times a day and when necessary 3. Bilateral pneumonia; continue with IV Zosyn; monitor CBC, CRP and pro- calcitonin 4. Chronic tobacco use 5. Substance abuse; patient uses marijuana and alcohol use daily DVT prophylaxis; SCDs/subcu heparin CODE STATUS; full code
[2023-05-21 16:38] LABS: African American GFR (CKD) >90 (>60 ml/min/1.73 sqM); Anion Gap 6 mmol/L; Blood Urea Nitrogen 19 mg/dL (9-20); Calcium 7.7 mg/dL (8.4-10.2); Carbon Dioxide 22 mmol/L (22-30); Chloride 109 mmol/L (98-107); Glucose 89 mg/dL (74-99); Non-African American GFR(CKD) >90 (>60 ml/min/1.73 sqM); Potassium 4.2 mmol/L (3.5-5.1); Sodium 137 mmol/L (137-145)
[2023-05-21 17:53] LABS: Glucose,Whole Blood 92 mg/dL (70-110)
[2023-05-21 23:14] LABS: Glucose,Whole Blood 94 mg/dL (70-110)
[2023-05-22 04:34] LABS: HCT 31.4 % (39.0-53.0); HGB 10.2 gm/dL (13.0-17.5); MCH 29.6 pg (25.0-35.0); MCHC 32.4 g/dL (31.0-37.0); MCV 91.3 fL (80.0-100.0); Platelet Count 228 k/uL (150-450); RBC 3.44 m/uL (4.30-5.90); RDW 14.8 % (11.5-15.5); WBC 12.7 k/uL (3.8-10.6)
[2023-05-22 04:44] LABS: African American GFR (CKD) >90 (>60 ml/min/1.73 sqM); Anion Gap 7 mmol/L; Blood Urea Nitrogen 22 mg/dL (9-20); Calcium 7.9 mg/dL (8.4-10.2); Carbon Dioxide 21 mmol/L (22-30); Chloride 109 mmol/L (98-107); Glucose 92 mg/dL (74-99); Non-African American GFR(CKD) >90 (>60 ml/min/1.73 sqM); Potassium 3.9 mmol/L (3.5-5.1); Sodium 137 mmol/L (137-145)
[2023-05-22 06:03] LABS: ABG Base Excess -0.6 mmol/L; ABG HCO3 24 mmol/L (21-25); ABG Oxygen Saturation 98.1 % (94-97); ABG PCO2 35 mmHg (35-45); ABG PH 7.44 (7.35-7.45); ABG PO2 90 mmHg (83-108); ABG TCO2 25 mmol/L (19-24); Allen Test Performed? Yes
[2023-05-22 06:14] LABS: Glucose,Whole Blood 99 mg/dL (70-110)
--- NOTE | 2023-05-22 07:31 | XR ---
EXAMINATION TYPE: XR chest 1V portable DATE OF EXAM: 05/22/2023 Comparison: 05/21/2023 Clinical History: 63-year-old male respiratory failure, PNA Findings: Posterior cervical fusion hardware. ET tube tip at 20 cm from the enriqueta. NG tube courses below the d iaphragm. Left CVC tip at the lower SVC. Heart borderline enlarged. Diffuse interstitial opacities pe rsist. Developing more patchy areas of opacities especially left lower lung and right upper lobe. Pos sible trace left effusion also increased. Impression: Worsening interstitial infiltrates bilaterally and developing patchy airspace disease.
--- NOTE | 2023-05-22 10:38 | P.PN ---
Subjective Progress Note Date: 05/22/23 This is a 63-year-old male with past medical history significant for pression COPD. He continues to smoke one pack per day, smokes marijuana and drinks alcohol daily. He was just discharged from here on 05/15/2023 following a COPD exacerbation requiring BiPAP support. He was still on Augmentin and prednisone taper. He came back to the emergency room last evening following an acute episode of shortness of breath. His condition deteriorated and he required intubation and mechanical ventilatory support. He is seen today in the intensive care unit. He is on the ventilator and assist control mode at a rate of 24, tidal volume 450, FiO2 40% and a PEEP of 5. Morning blood gases revealed a PaO2 of 147, P CO2 42 and a PEEP H of 7.33. He has normal saline at 130 ML's per hour. He is sedated on propofol at 45 mcg/kg/m. Currently on fentanyl at 1 mcg/kg per hour. Nimbex at 2 mcg/kg/m. X-ray reveals multifocal airspace opacities. Endotracheal tube and nasogastric tubes in good position. Left IJ [place] catheter good position. CT angiogram ruled out saddle emboli. Groundglass infiltrates in the upper and mid lungs. Possible underlying bronchomalacia particularly the right mainstem bronchus. White count 37.8. Hemoglobin 12.3. D-dimer 0.33. Sodium 141 potassium 4.1. Bicarb 22. BUN 27. Creatinine 1.14. Glucose 180. AST 32. ALT 43. Troponin 0.051. ProBNP 1250. He's been initiated and DuoNeb inhalations every 4 hours and antibiotics in the form of Zosyn. The patient is seen today 05/21/2023 in follow-up in the intensive care unit. He remains intubated on the mechanical ventilator and assist control mode at a rate of 24, tidal volume 450, FiO2 30% and a PEEP of 5. Morning blood gases reveal a P O2 of 99, pCO2 of 36 and a pH of 7.44. He is sedated on propofol at 50 mg/kg/m, fentanyl at 2 mcg/kg per hour, Nimbex at 4 mcg/kg/m. Normal saline at 130 ML's per hour. His pro calcitonin was 0.72. He remains on Zosyn. Chest x-ray continues to show multifocal airspace opacities. Sputum culture is pending. White count 14.3. Hemoglobin 10.9. Platelets 243. Sodium 138. Potassium 4.1. Bicarb 22. BUN 19. Creatinine 0.68. Glucose 101. He remains on DuoNeb inhalations every 4 hours. He is being nourished with vital HP @ 20 ML's per hour On 05/22/2023, the patient is being seen in follow-up. The patient currently is intubated on a mechanical ventilator. He was hospitalized for COPD exacerbation, failed BiPAP and ultimately had to be intubated and placed on mechanical ventilator, sedated and paralyzed and subsequently the paralytic was discontinued. The patient currently is on propofol which is running at 60 mcg/kg/m. He is also on fentanyl drip running at 1 mcg/kg/h. He is on assist- control mode of mechanical ventilation at the rate of 24, tidal volume of 450, FiO2 is at 30% with a PEEP of 5. Blood gas shows a pH of 7.44 with a pCO2 of 35 and pO2 of 90. His peak airway pressure is at 32. The auto PEEP is at 6.1, his plateau airway pressure is at 26airfit chest x-ray shows some increased interstitial markings bilaterally. No evidence of any pneumonia. The patient is known to me. I've taking care of them during an earlier hospitalization for COPD exacerbation respiratory failure along with Covid 19 pneumonia. His current viral screen is negative. The patient's WBC count of 12.7, he was then 0.2 and a platelet count is at 228. Sodium level is at 137, BUN is at 22 with a creatinine of 0.8. He has a gram-negative bacillus in his sputum and the patient remains on IV Zosyn. He is on bronchodilators. He is also on no steroids. IV fluids are running at 130 mL an hour. He is on vital high-protein running at the rate of 54 mL an hour. His previous echocardiogram from 05/10/2023 showed a preserved LV function, right ventricular systolic pressure was 40. His previous CT angiogram of the chest that was done on 05/18/2023 showed no evidence of any pulmonary embolism. There was some bilateral groundglass pulmonary infiltrates. Nevertheless, the patient tested negative for Covid 19 and he tested negative for influenza. Initial white cell count was at 35 and currently is down to 12.7. He is afebrile. He is hemodynamically stable and he is on no pressors for now. Pro-calcitonin level at the time of admission was 0.72. Objective - Vital Signs Vital signs: Vital Signs Temp 98.8 F 05/22/23 08:00 Pulse 63 05/22/23 10:00 Resp 24 05/22/23 10:00 BP 96/66 05/22/23 10:00 Pulse Ox 97 05/22/23 10:00 FiO2 30 05/22/23 10:00 Intake & Output 05/21/23 05/22/23 05/22/23 18:59 06:59 18:59 Intake Total 2298.943 2591.580 809.355 Output Total 1410 1665 760 Balance 888.943 926.580 49.355 Weight 81.8 kg Intake: IV 1596 1563 532 A line 36 33 12 Piperacillin-Tazobactam 3 100 .375 gm In Sodium Chloride 0.9% 100 ml @ 25 mls/hr IVPB Q8HR [facility] Rx# :[id number] Sodium Chloride 0.9% 1, 1560 1430 520 000 ml @ 130 mls/hr IV . Q7H42M [facility] Rx#:[id number] Intake, IV Titration 432.943 428.580 139.355 Amount Cisatracurium 200 mg In 82.943 39.147 Sodium Chloride 0.9% 180 ml @ 1 MCG/KG/MIN 4.491 mls/hr IV .Q24H [facility] Rx#: [id number] fentaNYL (PF). 1,000 mcg 150.000 191.540 44.717 In Sodium Chloride 0.9% 80 ml @ 0.5 MCG/KG/HR 3. 742 mls/hr IV .Q24H [facility] Rx#:[id number] propofoL 1,000 mg In 200.000 197.893 94.638 Empty Bag 1 bag @ 15 MCG/ KG/MIN 6.736 mls/hr IV . [id number] [facility] Rx#:[id number] Tube Feeding 240 510 108 Other 30 90 30 Output: Urine 1410 1665 760 Other: Voiding Method Indwelling Catheter Indwelling Catheter ABP, PAP, CO, CI - Last Documented Arterial Blood Pressure 102/54 - Exam GENERAL EXAM: Intubated, sedated, paralyzed 63-year-old male, in no apparent distress. HEAD: Normocephalic. EYES: Normal reaction of pupils, equal size. NOSE: Clear with pink turbinates. THROAT: No erythema or exudates. NECK: No masses, no JVD. CHEST: No chest wall deformity. LUNGS: Equal air entry with few scattered rhonchi. CVS: S1 and S2 normal with no audible murmur, regular rhythm. ABDOMEN: No hepatosplenomegaly, normal bowel sounds, no guarding or rigidity. SPINE: No scoliosis or deformity SKIN: No rashes CENTRAL NERVOUS SYSTEM: Sedated, paralyzed, tone is normal in all 4 extremities. EXTREMITIES: There is no peripheral edema. No clubbing, no cyanosis. Peripheral pulses are intact. - Labs CBC & Chem 7: 05/22/23 04:27 05/22/23 04:27 Labs: Abnormal Lab Results - Last 24 Hours (Table) 05/21/23 05/22/23 05/22/23 Range/Units 15:45 04:27 04:27 WBC 12.7 H (3.8-10.6) k/uL RBC 3.44 L (4.30-5.90) m/uL Hgb 10.2 L (13.0-17.5) gm/dL Hct 31.4 L (39.0-53.0) % ABG Total CO2 (19-24) mmol/L ABG O2 Saturation (94-97) % Chloride 109 H 109 H (98-107) mmol/L Carbon Dioxide 21 L (22-30) mmol/L BUN 22 H (9-20) mg/dL Calcium 7.7 L 7.9 L (8.4-10.2) mg/dL 05/22/23 Range/Units 06:00 WBC (3.8-10.6) k/uL RBC (4.30-5.90) m/uL Hgb (13.0-17.5) gm/dL Hct (39.0-53.0) % ABG Total CO2 25 H (19-24) mmol/L ABG O2 Saturation 98.1 H (94-97) % Chloride (98-107) mmol/L Carbon Dioxide (22-30) mmol/L BUN (9-20) mg/dL Calcium (8.4-10.2) mg/dL Microbiology - Last 24 Hours (Table) 05/19/23 23:43 Gram Stain - Preliminary Sputum Sputum Culture - Preliminary Gram Neg Bacilli Assessment and Plan Plan: Acute hypoxemic respiratory failure secondary to an acute exacerbation of COPD and possible continued underlying pneumonia requiring intubation and mechanical ventilatory support on 05/19/2023. The patient has bilateral interstitial groundglass pulmonary infiltrates, pro-calcitonin level was slightly elevated at time of admission and the sputum is showing positive gram-negative bacillus. Consider bacterial pneumonia. The viral screen was negative including Covid 19 and influenza. Currently afebrile and hemodynamically stable. Note that the patient had similar groundglass pulmonary infiltrates over the findings are more extensive during this current admission. The working diagnosis is still ba cterial pneumonia with the possibility of aspiration as the patient may have an underlying history of alcoholism. Recent discharge on 05/15/2023 for a COPD exacerbation requiring BiPAP support Recent discharge in February 2023 for bilateral pneumonia Chronic and ongoing tobacco dependence of nearly 50 years Daily alcohol use. Marijuana use History of depression Plan: Continue ventilator support No changes for today Awaiting sputum Gram stain and culture to be finalized Continue IV Zosyn Add Solu-Medrol 40 mg every 8 hours Continue bronchodilators Continue enteral feeding for nutritional support Keep propofol and give the patient brief sedation holiday and assess his mentation with concerns of him having developed some delirium related to history of alcoholism IV Protonix No need for Nimbex Condition remains critical and we'll continue to follow make further recommendations. I will suggest reducing his IV fluids to 40 mL an hour His previous echocardiogram was within normal limits We'll continue to follow Critical care evaluation was performed > 30 min Time with Patient: Greater than 30
[2023-05-22] MEDS: methylPREDNISolone SOD SUCCI 40 MG/ML 1 ML VIAL IV SCH (11:18)
[2023-05-22] MEDS: SODIUM CHLORIDE 0.9% 1,000 ML IV SCH (11:31)
[2023-05-22 12:07] LABS: Glucose,Whole Blood 103 mg/dL (70-110)
[2023-05-22 17:33] LABS: Glucose,Whole Blood 130 mg/dL (70-110)
--- NOTE | 2023-05-22 18:32 | P.PN ---
Subjective 63-year-old male with past medical history significant for COPD, smokes marijuana and drinks alcohol daily, discharged from here on 05/15/2023 following a COPD exacerbation requiring BiPAP support. Patient came back to the emergency room with an acute episode of shortness of breath. His condition deteriorated and he required intubation and mechanical ventilatory support. He is seen today in the intensive care unit. Morning blood gases revealed a PaO2 of 147, P CO2 42 and a PEEP H of 7.33. He is sedated. X-ray reveals multifocal airspace opacities. CT angiogram ruled out saddle emboli. Groundglass infiltrates in the upper and mid lungs. Possible underlying bronchomalacia particularly the right mainstem bronchus. White count 37.8. Hemoglobin 12.3. D-dimer 0.33. Sodium 141 potassium 4.1. Bicarb 22. BUN 27. Creatinine 1.14. Glucose 180. AST 32. ALT 43. Troponin 0.051. ProBNP 1250. He's been initiated and DuoNeb inhalations every 4 hours and antibiotics in the form of Zosyn. 05/21/2023 Patient is seen and evaluated in follow-up in the intensive care unit. He remains intubated on the mechanical ventilator. Patient remained sedated Blood gases reveal a PO2 of 99, pCO2 of 36 and a pH of 7.44 -- pro calcitonin was 0.72. He remains on Zosyn. Chest x-ray continues to show multifocal airspace opacities. Sputum culture is pending. -- White count 14.3. Hemoglobin 10.9. Platelets 243. Sodium 138. Potassium 4.1. Bicarb 22. BUN 19. Creatinine 0.68. Glucose 101. 05/22/2023 Patient remains in the ICU intubated and sedated and on mechanical ventilation with pulmonary/critical care team following closely. Remains on Zosyn and IV Solu-Medrol for his acute COPD exacerbation and bilateral interstitial pneumonia with mildly elevated procalcitonin Sputum culture has grown gram-negative bacilli Patient also on gentle hydration with normal saline 40 mL/h labs are reviewed and looks stable Objective - Vital Signs Vital signs: Vital Signs Temp 99.0 F 05/22/23 13:00 Pulse 58 L 05/22/23 15:35 Resp 24 05/22/23 14:00 BP 116/73 05/22/23 12:00 Pulse Ox 97 05/22/23 14:00 FiO2 30 05/22/23 15:21 Intake & Output 05/21/23 05/22/23 05/22/23 18:59 06:59 18:59 Intake Total 2298.943 2591.580 1364.938 Output Total 1410 1665 1735 Balance 888.943 926.580 -370.062 Weight 81.8 kg 81.8 kg Intake: IV 1596 1563 547 A line 36 33 27 Piperacillin-Tazobactam 3 100 .375 gm In Sodium Chloride 0.9% 100 ml @ 25 mls/hr IVPB Q8HR [facility] Rx# :[id number] Sodium Chloride 0.9% 1, 1560 1430 520 000 ml @ 130 mls/hr IV . Q7H42M [facility] Rx#:[id number] Intake, IV Titration 432.943 428.580 487.938 Amount Cisatracurium 200 mg In 82.943 39.147 Sodium Chloride 0.9% 180 ml @ 1 MCG/KG/MIN 4.491 mls/hr IV .Q24H [facility] Rx#: [id number] Sodium Chloride 0.9% 1, 200 000 ml @ 40 mls/hr IV . Q24H [facility] Rx#:[id number] fentaNYL (PF). 1,000 mcg 150.000 191.540 90.868 In Sodium Chloride 0.9% 80 ml @ 0.5 MCG/KG/HR 3. 742 mls/hr IV .Q24H [facility] Rx#:[id number] propofoL 1,000 mg In 200.000 197.893 197.070 Empty Bag 1 bag @ 15 MCG/ KG/MIN 6.736 mls/hr IV . [id number] [facility] Rx#:[id number] Tube Feeding 240 510 270 Other 30 90 60 Output: Urine 1410 1665 1735 Other: Voiding Method Indwelling Catheter Indwelling Catheter ABP, PAP, CO, CI - Last Documented Arterial Blood Pressure 117/62 - Exam -GENERAL: The patient is intubated and sedated HEENT: Pupils are round and equally reacting to light. EOMI. No scleral icterus. No conjunctival pallor. Normocephalic, atraumatic. No pharyngeal erythema. No thyromegaly. CARDIOVASCULAR: S1 and S2 present. No murmurs, rubs, or gallops. -PULMONARY: Chest is clear to auscultation, no wheezing , no crackles. Bilateral coarse crepitation with some limitation of air entry ABDOMEN: Soft, nontender, nondistended, normoactive bowel sounds. No palpable organomegaly. MUSCULOSKELETAL: No joint swelling or deformity. EXTREMITIES: No cyanosis, clubbing, or pedal edema. NEUROLOGICAL: Gross neurological examination did not reveal any focal deficits. SKIN: No rashes. no petechiae. - Labs CBC & Chem 7: 05/22/23 04:27 05/22/23 04:27 Labs: Abnormal Lab Results - Last 24 Hours (Table) 05/21/23 05/22/23 05/22/23 Range/Units 15:45 04:27 04:27 WBC 12.7 H (3.8-10.6) k/uL RBC 3.44 L (4.30-5.90) m/uL Hgb 10.2 L (13.0-17.5) gm/dL Hct 31.4 L (39.0-53.0) % ABG Total CO2 (19-24) mmol/L ABG O2 Saturation (94-97) % Chloride 109 H 109 H (98-107) mmol/L Carbon Dioxide 21 L (22-30) mmol/L BUN 22 H (9-20) mg/dL Calcium 7.7 L 7.9 L (8.4-10.2) mg/dL 05/22/23 Range/Units 06:00 WBC (3.8-10.6) k/uL RBC (4.30-5.90) m/uL Hgb (13.0-17.5) gm/dL Hct (39.0-53.0) % ABG Total CO2 25 H (19-24) mmol/L ABG O2 Saturation 98.1 H (94-97) % Chloride (98-107) mmol/L Carbon Dioxide (22-30) mmol/L BUN (9-20) mg/dL Calcium (8.4-10.2) mg/dL Microbiology - Last 24 Hours (Table) 05/19/23 23:43 Gram Stain - Preliminary Sputum Sputum Culture - Preliminary Gram Neg Bacilli Assessment and Plan Assessment: Diagnoses: 1. Acute hypoxic respiratory failure; related to COPD exacerbation/pneumonia -- Patient is currently intubated and mechanically ventilated -- Was recently treated and discharged with COPD exacerbation requiring BiPAP support -- Patient is currently on IV Zosyn -- Intensive care service on board and recommending to continue with current antibiotics 2. Acute exacerbation COPD; continue with bronchodilator nebulizer treatments 4 times a day and when necessary 3. Bilateral pneumonia; continue with IV Zosyn; monitor CBC, CRP and pro-calcitonin 4. Chronic tobacco use 5. Substance abuse; patient uses marijuana and alcohol use daily DVT prophylaxis; SCDs/subcu heparin CODE STATUS; full code
--- NOTE | 2023-05-22 21:25 | XR ---
EXAMINATION TYPE: XR chest 1V confirm line plcmt DATE OF EXAM: 05/22/2023 9:09 PM CLINICAL INDICATION:Male, 63 years old with history of Confirm line placement; [facility] COMPARISON: Chest radiographs from TECHNIQUE: XR chest 1V confirm line plcmt Frontal view of the chest. FINDINGS: Lungs/Pleura: There is no evidence of pleural effusion, focal consolidation, or pneumothorax. Pulmonary vascularity: Unremarkable. Heart/mediastinum: Cardiomediastinal silhouette is unremarkable. Musculoskeletal: No acute osseous pathology. There is fixation hardware in the lower cervical spine. Other findings: None Lines/Tubes: Endotracheal tube with distal tip 6.7 cm above the enriqueta. Nasogastric tube with its distal tip and side-port projecting under the diaphragm. Left internal jugular central venous catheter with distal tip at the cavoatrial junction. IMPRESSION: Left central venous catheter, nasogastric and endotracheal tubes in appropriate position.
[2023-05-22] MEDS: amLODIPine 5 MG TAB PO SCH (23:43)
[2023-05-22 23:59] LABS: Glucose,Whole Blood 148 mg/dL (70-110)
[2023-05-23 04:05] LABS: Basophils % (A) 0 %; Eosinophils % (A) 0 %; HGB 11.6 gm/dL (13.0-17.5); Lymphocytes # (A) 0.4 k/uL (1.0-4.8); Lymphocytes % (A) 4 %; MCH 29.8 pg (25.0-35.0); MCHC 33.2 g/dL (31.0-37.0); MCV 89.6 fL (80.0-100.0); Mean Platelet Volume 9.2; Monocytes # (A) 0.2 k/uL (0-1.0); Monocytes % (A) 2 %; Neutrophils # (A) 10.6 k/uL (1.3-7.7); Neutrophils % (A) 94 %; Platelet Count 258 k/uL (150-450); RDW 14.4 % (11.5-15.5); WBC 11.2 k/uL (3.8-10.6)
[2023-05-23 04:09] LABS: African American GFR (CKD) >90 (>60 ml/min/1.73 sqM); Anion Gap 9 mmol/L; Blood Urea Nitrogen 25 mg/dL (9-20); Calcium 8.1 mg/dL (8.4-10.2); Carbon Dioxide 21 mmol/L (22-30); Chloride 107 mmol/L (98-107); Glucose 143 mg/dL (74-99); Magnesium 2.5 mg/dL (1.6-2.3); Non-African American GFR(CKD) >90 (>60 ml/min/1.73 sqM); Potassium 4.7 mmol/L (3.5-5.1); Sodium 137 mmol/L (137-145)
[2023-05-23 05:45] LABS: ABG Base Excess -0.6 mmol/L; ABG HCO3 24 mmol/L (21-25); ABG Oxygen Saturation 97.8 % (94-97); ABG PCO2 35 mmHg (35-45); ABG PH 7.44 (7.35-7.45); ABG PO2 93 mmHg (83-108); ABG TCO2 25 mmol/L (19-24); Allen Test Performed? Yes
[2023-05-23 06:04] LABS: Glucose,Whole Blood 145 mg/dL (70-110)
--- NOTE | 2023-05-23 08:25 | XR ---
EXAMINATION TYPE: XR chest 1V portable DATE OF EXAM: 05/23/2023 4:07 AM CLINICAL INDICATION:Male, 63 years old with history of Resp Failure; [facility] COMPARISON: Chest radiograph from one day prior. TECHNIQUE: XR chest 1V portable Frontal view of the chest. FINDINGS: Lungs/Pleura: More prominent right lower lung airspace opacities. There is no evidence of pleural eff usion, focal consolidation, or pneumothorax. Pulmonary vascularity: Unremarkable. Heart/mediastinum: Cardiomediastinal silhouette is unremarkable. Musculoskeletal: No acute osseous pathology. There is fixation hardware in the lower cervical spine. Lines/Tubes: Endotracheal tube with distal tip 3.9 cm above the enriqueta. Nasogastric tube with its distal tip and side-port projecting under the diaphragm. Left internal jugular central venous catheter with distal tip at the cavoatrial junction. IMPRESSION: 1. Increased right lower lung airspace opacities correlate for pneumonia. 2. Left central venous catheter, nasogastric and endotracheal tubes in appropriate position.
--- NOTE | 2023-05-23 10:02 | P.PN ---
Subjective Progress Note Date: 05/23/23 This is a 63-year-old male with past medical history significant for pression COPD. He continues to smoke one pack per day, smokes marijuana and drinks alcohol daily. He was just discharged from here on 05/15/2023 following a COPD exacerbation requiring BiPAP support. He was still on Augmentin and prednisone taper. He came back to the emergency room last evening following an acute episode of shortness of breath. His condition deteriorated and he required intubation and mechanical ventilatory support. He is seen today in the intensive care unit. He is on the ventilator and assist control mode at a rate of 24, tidal volume 450, FiO2 40% and a PEEP of 5. Morning blood gases revealed a PaO2 of 147, P CO2 42 and a PEEP H of 7.33. He has normal saline at 130 ML's per hour. He is sedated on propofol at 45 mcg/kg/m. Currently on fentanyl at 1 mcg/kg per hour. Nimbex at 2 mcg/kg/m. X-ray reveals multifocal airspace opacities. Endotracheal tube and nasogastric tubes in good position. Left IJ [place] catheter good position. CT angiogram ruled out saddle emboli. Groundglass infiltrates in the upper and mid lungs. Possible underlying bronchomalacia particularly the right mainstem bronchus. White count 37.8. Hemoglobin 12.3. D-dimer 0.33. Sodium 141 potassium 4.1. Bicarb 22. BUN 27. Creatinine 1.14. Glucose 180. AST 32. ALT 43. Troponin 0.051. ProBNP 1250. He's been initiated and DuoNeb inhalations every 4 hours and antibiotics in the form of Zosyn. The patient is seen today 05/21/2023 in follow-up in the intensive care unit. He remains intubated on the mechanical ventilator and assist control mode at a rate of 24, tidal volume 450, FiO2 30% and a PEEP of 5. Morning blood gases reveal a P O2 of 99, pCO2 of 36 and a pH of 7.44. He is sedated on propofol at 50 mg/kg/m, fentanyl at 2 mcg/kg per hour, Nimbex at 4 mcg/kg/m. Normal saline at 130 ML's per hour. His pro calcitonin was 0.72. He remains on Zosyn. Chest x-ray continues to show multifocal airspace opacities. Sputum culture is pending. White count 14.3. Hemoglobin 10.9. Platelets 243. Sodium 138. Potassium 4.1. Bicarb 22. BUN 19. Creatinine 0.68. Glucose 101. He remains on DuoNeb inhalations every 4 hours. He is being nourished with vital HP @ 20 ML's per hour On 05/22/2023, the patient is being seen in follow-up. The patient currently is intubated on a mechanical ventilator. He was hospitalized for COPD exacerbation, failed BiPAP and ultimately had to be intubated and placed on mechanical ventilator, sedated and paralyzed and subsequently the paralytic was discontinued. The patient currently is on propofol which is running at 60 mcg/kg/m. He is also on fentanyl drip running at 1 mcg/kg/h. He is on assist- control mode of mechanical ventilation at the rate of 24, tidal volume of 450, FiO2 is at 30% with a PEEP of 5. Blood gas shows a pH of 7.44 with a pCO2 of 35 and pO2 of 90. His peak airway pressure is at 32. The auto PEEP is at 6.1, his plateau airway pressure is at 26airfit chest x-ray shows some increased interstitial markings bilaterally. No evidence of any pneumonia. The patient is known to me. I've taking care of them during an earlier hospitalization for COPD exacerbation respiratory failure along with Covid 19 pneumonia. His current viral screen is negative. The patient's WBC count of 12.7, he was then 0.2 and a platelet count is at 228. Sodium level is at 137, BUN is at 22 with a creatinine of 0.8. He has a gram-negative bacillus in his sputum and the patient remains on IV Zosyn. He is on bronchodilators. He is also on no steroids. IV fluids are running at 130 mL an hour. He is on vital high-protein running at the rate of 54 mL an hour. His previous echocardiogram from 05/10/2023 showed a preserved LV function, right ventricular systolic pressure was 40. His previous CT angiogram of the chest that was done on 05/18/2023 showed no evidence of any pulmonary embolism. There was some bilateral groundglass pulmonary infiltrates. Nevertheless, the patient tested negative for Covid 19 and he tested negative for influenza. Initial white cell count was at 35 and currently is down to 12.7. He is afebrile. He is hemodynamically stable and he is on no pressors for now. Pro-calcitonin level at the time of admission was 0.72. 05/23/2023, the patient remains on a mechanical ventilator. Earlier this morning, the patient is on propofol running at 60 microvascular kilogram per minute. He is arousable and is following some simple commands even while being on propofol. His family denies history of alcoholism. Nevertheless, he seems to have a very high tolerance hours propofol. He is also on fentanyl running at 2 mcg/kg/h. The patient is currently on assist-control mode of mechanical ventilation at the rate of 24, tidal volume of 450, FiO2 is at 30% with a PEEP of 5. Peak airway pressures improved compared to yesterday's currently down to 27. On examination, he is less bronchospastic and wheezy. No significant orotracheal secretions. PH is at 7.44 with episodes of 35 and pO2 of 93. The chest x-ray from today shows some limited airspace disease in the right lower lobe and this could be potentially an area of atelectasis. Small effusion is also seen in the left lung. Sputum culture was positive for pseudomonas aeruginosa and Aspergillus fumigatus. The patient is currently on IV Zosyn. The patient remains on bronchodilators. The patient is also on IV Solu-Medrol 40 mg by mouth 8 hours. He is receiving enteral feeding for nutritional support and he is on vital high- protein at the rate of 20 mL an hour Objective - Vital Signs Vital signs: Vital Signs Temp 98.8 F 05/23/23 08:00 Pulse 75 05/23/23 08:43 Resp 32 H 05/23/23 08:00 BP 153/90 05/23/23 02:00 Pulse Ox 98 05/23/23 08:00 FiO2 30 05/23/23 08:00 Intake & Output 05/22/23 05/23/23 05/23/23 18:59 06:59 18:59 Intake Total 0761.062 8150.930 203.444 Output Total 2310 1995 275 Balance -604.669 -854.070 -71.556 Weight 81.8 kg 82.8 kg Intake: IV 656 576 86 A line 36 36 6 Piperacillin-Tazobactam 3 100 100 .375 gm In Sodium Chloride 0.9% 100 ml @ 25 mls/hr IVPB Q8H [facility] Rx#: [id number] Sodium Chloride 0.9% 1, 520 000 ml @ 130 mls/hr IV . Q7H42M [facility] Rx#:[id number] Sodium Chloride 0.9% 1, 440 80 000 ml @ 40 mls/hr IV . Q24H [facility] Rx#:[id number] Intake, IV Titration 699.331 414.930 97.444 Amount Sodium Chloride 0.9% 1, 320 40 000 ml @ 40 mls/hr IV . Q24H [facility] Rx#:[id number] fentaNYL (PF). 1,000 mcg 90.868 190.060 In Sodium Chloride 0.9% 80 ml @ 0.5 MCG/KG/HR 3. 742 mls/hr IV .Q24H [facility] Rx#:[id number] propofoL 1,000 mg In 288.463 184.87 97.444 Empty Bag 1 bag @ 15 MCG/ KG/MIN 6.736 mls/hr IV . [id number] [facility] Rx#:[id number] Tube Feeding 290 90 20 Other 60 60 Output: Urine 2310 1995 275 Other: Voiding Method Indwelling Catheter Indwelling Catheter Indwelling Catheter ABP, PAP, CO, CI - Last Documented Arterial Blood Pressure 159/86 - Exam GENERAL EXAM: Intubated, sedated, paralyzed 63-year-old male, in no apparent distress. The patient is arousable even while being on sedatives and currently he remains on accommodation of propofol and fentanyl. HEAD: Normocephalic. EYES: Normal reaction of pupils, equal size. NOSE: Clear with pink turbinates. THROAT: No erythema or exudates. NECK: No masses, no JVD. CHEST: No chest wall deformity. LUNGS: Equal air entry with few scattered rhonchi. CVS: S1 and S2 normal with no audible murmur, regular rhythm. ABDOMEN: No hepatosplenomegaly, normal bowel sounds, no guarding or rigidity. SPINE: No scoliosis or deformity SKIN: No rashes CENTRAL NERVOUS SYSTEM: Sedated, paralyzed, tone is normal in all 4 extremities. EXTREMITIES: There is no peripheral edema. No clubbing, no cyanosis. Peripheral pulses are intact. - Labs CBC & Chem 7: 05/23/23 03:49 05/23/23 03:49 Labs: Abnormal Lab Results - Last 24 Hours (Table) 05/22/23 05/22/23 05/23/23 Range/Units 17:32 23:58 03:49 WBC 11.2 H (3.8-10.6) k/uL RBC 3.90 L (4.30-5.90) m/uL Hgb 11.6 L (13.0-17.5) gm/dL Hct 35.0 L (39.0-53.0) % Neutrophils # 10.6 H (1.3-7.7) k/uL Lymphocytes # 0.4 L (1.0-4.8) k/uL ABG Total CO2 (19-24) mmol/L ABG O2 Saturation (94-97) % Carbon Dioxide (22-30) mmol/L BUN (9-20) mg/dL Glucose (74-99) mg/dL POC Glucose (mg/dL) 130 H 148 H (70-110) mg/dL Calcium (8.4-10.2) mg/dL Magnesium (1.6-2.3) mg/dL 05/23/23 05/23/23 05/23/23 Range/Units 03:49 05:27 06:03 WBC (3.8-10.6) k/uL RBC (4.30-5.90) m/uL Hgb (13.0-17.5) gm/dL Hct (39.0-53.0) % Neutrophils # (1.3-7.7) k/uL Lymphocytes # (1.0-4.8) k/uL ABG Total CO2 25 H (19-24) mmol/L ABG O2 Saturation 97.8 H (94-97) % Carbon Dioxide 21 L (22-30) mmol/L BUN 25 H (9-20) mg/dL Glucose 143 H (74-99) mg/dL POC Glucose (mg/dL) 145 H (70-110) mg/dL Calcium 8.1 L (8.4-10.2) mg/dL Magnesium 2.5 H (1.6-2.3) mg/dL Microbiology - Last 24 Hours (Table) 05/19/23 23:43 Gram Stain - Final Sputum Sputum Culture - Final Pseudomonas aeruginosa Aspergillus fumigatus Assessment and Plan Plan: Acute hypoxemic respiratory failure secondary to an acute exacerbation of COPD and possible continued underlying pneumonia requiring intubation and mechanical ventilatory support on 05/19/2023. The patient has bilateral interstitial groundglass pulmonary infiltrates, pro-calcitonin level was slightly elevated at time of admission and the sputum is showing positive gram-negative bacillus. Consider bacterial pneumonia. The viral screen was negative including Covid 19 and influenza. Based on culture is showing pseudomonas aeruginosa and Aspergillus fumigatus. I think Aspergillus itself into a colonizer. In regards to pseudomonal infection, the patient is currently on IV Zosyn. Less bronchospastic and wheezy on today's evaluation. Peak airway pressure is also drop. Recent discharge on 05/15/2023 for a COPD exacerbation requiring BiPAP support Recent discharge in February 2023 for bilateral pneumonia Chronic and ongoing tobacco dependence of nearly 50 years Daily alcohol use. Marijuana use History of depression Plan: Continue ventilator support Wean off propofol and discontinue Wean off fentanyl Check weaning parameters Give the patient is point his breathing trial with a PSV of 5 and PEEP of 5 Consider extubation within 30 minutes the patient is able to tolerate this point his breathing trial Continue IV Zosyn Continue Solu-Medrol 40 mg every 8 hours Continue bronchodilators Stop tube feeds for now Change IV fluids to KVO Give a dose of Lasix 40 mg IV Check Aspergillus antibodies both IgG and IgE Condition remains critical and we'll continue to follow make further recommendations. His previous echocardiogram was within normal limits We'll continue to follow Critical care evaluation was performed > 30 min Time with Patient: Greater than 30
[2023-05-23] MEDS: FUROSEMIDE 10 MG/ML 4 ML VIAL IV STA (11:13)
--- NOTE | 2023-05-23 11:25 | CDI ---
Documentation Clarification Form Date: 05/23/2023 11:02:05 AM From: Ade Galloway RN CCDS Phone: [phone] Admit Date: 05/19/2023 10:24:00 PM Patient Name: Fausto Willis Visit Number: [id number] Discharge Date: ATTENTION: The Clinical Documentation Specialists (CDI) and [facility] Coding Staff appreciate your assistance in clarifying documentation. Please respond to the clarification below the line at the bottom and electronically sign. The CDI & [facility] Coding staff will review the response and follow-up if needed. Please note: Queries are made part of the Legal Health Record. If you have any questions, please contact the author of this message via ITS. Dr. Vidal E Sheet The patient has Sepsis, 05/20, Triple lumen catheter procedure note. Based on this information and the findings below, is there an additional diagnosis that is clinically appropriate for this patient? History/Risk Factors: 63-year-old male presents to the ED with dyspnea. Medical History: Discharged 05/15 [facility] requiring BiPAP, Daily smoker and cannabis use. Clinical Indicators: WBC, 05/19: 38.5; Neutrophils 36.7 Lactic acid, 05/19: 4.9 Sputum cultures, 05/19: Pseudomonas aeruginosa Aspergillus Fumigatus Vitals signs: 05/19, :12: B/P 185/123; HR 129; RR 24; SpO2 93% 2L nasal cannula 05/19, :12: B/P 131/85; HR 79; RR 24 SpO2 100% Mechanical Vent FiO2 40 Triple Lumen Catheter procedure note: Postoperative diagnosis: Administration of fluids and pressors, hypotension, sepsis. Treatment: 05/19 Intubated and placed on Mechanical Ventilator Antibiotics: 05/19 Zosyn IVPB Q8HR IV Bolus: 05/19 0.9ns 2L IV Bolus, 05/19 0.9NS IV 130mls/hr Is there an additional diagnosis that is clinically appropriate for this patient? [ x ] Sepsis, present on admission: tachycardia and leukocytosis [ ] Sepsis with Septic Shock present on admission [ ] Sepsis ruled out [ ] Other, please specify [ ] Unable to determine SIRS Criteria: 2 or more of the following may indicate SIRS Temperature < 96.8F (36C) or > 101.0F (38.3C) Heart Rate > 90 bpm Respiratory Rate > 20 breaths/min or PaCO2 < 32 mmHg White Blood Cell Count > 12,000 or < 4,000 cells/mm3 or > 10% bands (Template Last Reviewed: May 2022) MTDD
[2023-05-23 11:34] LABS: Glucose,Whole Blood 139 mg/dL (70-110)
[2023-05-23] MEDS: HYDROcodone/APAP 7.5-325MG 1 EACH TAB PO PRN (13:24)
--- NOTE | 2023-05-23 14:48 | P.PN ---
Subjective 63-year-old male with past medical history significant for COPD, smokes marijuana and drinks alcohol daily, discharged from here on 05/15/2023 following a COPD exacerbation requiring BiPAP support. Patient came back to the emergency room with an acute episode of shortness of breath. His condition deteriorated and he required intubation and mechanical ventilatory support. He is seen today in the intensive care unit. Morning blood gases revealed a PaO2 of 147, P CO2 42 and a PEEP H of 7.33. He is sedated. X-ray reveals multifocal airspace opacities. CT angiogram ruled out saddle emboli. Groundglass infiltrates in the upper and mid lungs. Possible underlying bronchomalacia particularly the right mainstem bronchus. White count 37.8. Hemoglobin 12.3. D-dimer 0.33. Sodium 141 potassium 4.1. Bicarb 22. BUN 27. Creatinine 1.14. Glucose 180. AST 32. ALT 43. Troponin 0.051. ProBNP 1250. He's been initiated and DuoNeb inhalations every 4 hours and antibiotics in the form of Zosyn. 05/21/2023 Patient is seen and evaluated in follow-up in the intensive care unit. He remains intubated on the mechanical ventilator. Patient remained sedated Blood gases reveal a PO2 of 99, pCO2 of 36 and a pH of 7.44 -- pro calcitonin was 0.72. He remains on Zosyn. Chest x-ray continues to show multifocal airspace opacities. Sputum culture is pending. -- White count 14.3. Hemoglobin 10.9. Platelets 243. Sodium 138. Potassium 4.1. Bicarb 22. BUN 19. Creatinine 0.68. Glucose 101. 05/22/2023 Patient remains in the ICU intubated and sedated and on mechanical ventilation with pulmonary/critical care team following closely. Remains on Zosyn and IV Solu-Medrol for his acute COPD exacerbation and bilateral interstitial pneumonia with mildly elevated procalcitonin Sputum culture has grown gram-negative bacilli Patient also on gentle hydration with normal saline 40 mL/h labs are reviewed and looks stable 05/23/2030 Patient intubated and sedated in the ICU with pulmonary/critical care team following closely. His total monthly tachycardic, heart rhythm is 104, blood pressure is stable. Breathing quietly. Labs reviewed WBC 11,000, hemoglobin around 11. Chest x-ray showed worsening interstitial infiltrates Physical cultures growing Pseudomonas and Acinetobacter His current it covered with Zosyn and Solu-Medrol 40 mg or. Normal saline at 40 mL/h Objective - Vital Signs Vital signs: Vital Signs Temp 98.6 F 05/23/23 12:00 Pulse 109 H 05/23/23 13:00 Resp 63 H 05/23/23 14:00 BP 144/97 05/23/23 14:00 Pulse Ox 99 05/23/23 14:00 FiO2 30 05/23/23 10:00 Intake & Output 05/22/23 05/23/23 05/23/23 18:59 06:59 18:59 Intake Total 0863.645 0275.930 393.132 Output Total 0 1994 2879 Balance -604.669 -854.070 -4206.868 Weight 81.8 kg 82.8 kg Intake: IV 656 576 175 A line 36 36 15 Piperacillin-Tazobactam 3 100 100 .375 gm In Sodium Chloride 0.9% 100 ml @ 25 mls/hr IVPB Q8H [facility] Rx#: [id number] Sodium Chloride 0.9% 1, 520 000 ml @ 130 mls/hr IV . Q7H42M [facility] Rx#:[id number] Sodium Chloride 0.9% 1, 440 160 000 ml @ 40 mls/hr IV . Q24H [facility] Rx#:[id number] Intake, IV Titration 699.331 414.930 198.132 Amount Sodium Chloride 0.9% 1, 320 40 000 ml @ 40 mls/hr IV . Q24H [facility] Rx#:[id number] fentaNYL (PF). 1,000 mcg 90.868 190.060 60.499 In Sodium Chloride 0.9% 80 ml @ 0.5 MCG/KG/HR 3. 742 mls/hr IV .Q24H [facility] Rx#:[id number] propofoL 1,000 mg In 288.463 184.87 137.633 Empty Bag 1 bag @ 15 MCG/ KG/MIN 6.736 mls/hr IV . [id number] [facility]HU Rx#:[id number] Tube Feeding 290 90 20 Other 60 60 Output: Urine 2309 1994 2879 Other: Voiding Method Indwelling Catheter Indwelling Catheter Indwelling Catheter ABP, PAP, CO, CI - Last Documented Arterial Blood Pressure 160/80 - Exam -GENERAL: The patient is intubated and sedated HEENT: Pupils are round and equally reacting to light. EOMI. No scleral icterus. No conjunctival pallor. Normocephalic, atraumatic. No pharyngeal erythema. No thyromegaly. CARDIOVASCULAR: S1 and S2 present. No murmurs, rubs, or gallops. -PULMONARY: Chest is clear to auscultation, no wheezing , no crackles. Bilateral coarse crepitation with some limitation of air entry ABDOMEN: Soft, nontender, nondistended, normoactive bowel sounds. No palpable organomegaly. MUSCULOSKELETAL: No joint swelling or deformity. EXTREMITIES: No cyanosis, clubbing, or pedal edema. NEUROLOGICAL: Gross neurological examination did not reveal any focal deficits. SKIN: No rashes. no petechiae. - Labs CBC & Chem 7: 05/23/23 03:49 05/23/23 03:49 Labs: Abnormal Lab Results - Last 24 Hours (Table) 05/22/23 05/22/23 05/23/23 Range/Units 17:32 23:58 03:49 WBC 11.2 H (3.8-10.6) k/uL RBC 3.90 L (4.30-5.90) m/uL Hgb 11.6 L (13.0-17.5) gm/dL Hct 35.0 L (39.0-53.0) % Neutrophils # 10.6 H (1.3-7.7) k/uL Lymphocytes # 0.4 L (1.0-4.8) k/uL ABG Total CO2 (19-24) mmol/L ABG O2 Saturation (94-97) % Carbon Dioxide (22-30) mmol/L BUN (9-20) mg/dL Glucose (74-99) mg/dL POC Glucose (mg/dL) 130 H 148 H (70-110) mg/dL Calcium (8.4-10.2) mg/dL Magnesium (1.6-2.3) mg/dL 05/23/23 05/23/23 05/23/23 Range/Units 03:49 05:27 06:03 WBC (3.8-10.6) k/uL RBC (4.30-5.90) m/uL Hgb (13.0-17.5) gm/dL Hct (39.0-53.0) % Neutrophils # (1.3-7.7) k/uL Lymphocytes # (1.0-4.8) k/uL ABG Total CO2 25 H (19-24) mmol/L ABG O2 Saturation 97.8 H (94-97) % Carbon Dioxide 21 L (22-30) mmol/L BUN 25 H (9-20) mg/dL Glucose 143 H (74-99) mg/dL POC Glucose (mg/dL) 145 H (70-110) mg/dL Calcium 8.1 L (8.4-10.2) mg/dL Magnesium 2.5 H (1.6-2.3) mg/dL 05/23/23 Range/Units 11:33 WBC (3.8-10.6) k/uL RBC (4.30-5.90) m/uL Hgb (13.0-17.5) gm/dL Hct (39.0-53.0) % Neutrophils # (1.3-7.7) k/uL Lymphocytes # (1.0-4.8) k/uL ABG Total CO2 (19-24) mmol/L ABG O2 Saturation (94-97) % Carbon Dioxide (22-30) mmol/L BUN (9-20) mg/dL Glucose (74-99) mg/dL POC Glucose (mg/dL) 139 H (70-110) mg/dL Calcium (8.4-10.2) mg/dL Magnesium (1.6-2.3) mg/dL Microbiology - Last 24 Hours (Table) 05/19/23 23:43 Gram Stain - Final Sputum Sputum Culture - Final Pseudomonas aeruginosa Aspergillus fumigatus Assessment and Plan Assessment: Diagnoses: 1. Acute hypoxic respiratory failure; related to COPD exacerbation/pneumonia -- Patient is currently intubated and mechanically ventilated -- Was recently treated and discharged with COPD exacerbation requiring BiPAP support -- Patient is currently on IV Zosyn -- Intensive care service on board and recommending to continue with current antibiotics 2. Acute exacerbation COPD; continue with bronchodilator nebulizer treatments 4 times a day and when necessary 3. Bilateral pneumonia; continue with IV Zosyn; monitor CBC, CRP and pro- calcitonin 4. Chronic tobacco use 5. Substance abuse; patient uses marijuana and alcohol use daily DVT prophylaxis; SCDs/subcu heparin CODE STATUS; full code
[2023-05-23] MEDS: DULoxetine HCL 30 MG CAPSULE.DR PO SCH (20:28)
[2023-05-23] MEDS: ONDANSETRON 4 MG/2 ML VIAL IVP PRN (22:13)
[2023-05-23] MEDS: BACLOFEN 10 MG TAB PO PRN (22:31)
[2023-05-24] MEDS ORDERED: MELATONIN 5 MG TABLET PO SCH (00:45)
[2023-05-24] MEDS: MELATONIN 5 MG TABLET PO PRN (00:55)
[2023-05-24 05:27] LABS: Basophils % (A) 0 %; Eosinophils % (A) 0 %; HCT 37.7 % (39.0-53.0); HGB 12.2 gm/dL (13.0-17.5); Lymphocytes # (A) 0.3 k/uL (1.0-4.8); Lymphocytes % (A) 1 %; MCH 29.6 pg (25.0-35.0); MCHC 32.3 g/dL (31.0-37.0); MCV 91.6 fL (80.0-100.0); Mean Platelet Volume 8.8; Monocytes # (A) 0.5 k/uL (0-1.0); Monocytes % (A) 2 %; Neutrophils # (A) 23.1 k/uL (1.3-7.7); Neutrophils % (A) 96 %; Platelet Count 272 k/uL (150-450); RBC 4.12 m/uL (4.30-5.90); RDW 14.5 % (11.5-15.5)
[2023-05-24 06:00] LABS: African American GFR (CKD) >90 (>60 ml/min/1.73 sqM); Anion Gap 11 mmol/L; Blood Urea Nitrogen 27 mg/dL (9-20); Calcium 8.6 mg/dL (8.4-10.2); Carbon Dioxide 25 mmol/L (22-30); Chloride 103 mmol/L (98-107); Glucose 155 mg/dL (74-99); Non-African American GFR(CKD) >90 (>60 ml/min/1.73 sqM); Potassium 4.3 mmol/L (3.5-5.1); Sodium 139 mmol/L (137-145)
[2023-05-24] MEDS: TAMSULOSIN 0.4 MG CAP.ER.24H PO SCH (09:10)
[2023-05-24] MEDS: DULoxetine HCL 60 MG CAPSULE.DR PO SCH (09:11)
--- NOTE | 2023-05-24 09:38 | XR ---
EXAMINATION TYPE: XR chest 1V portable DATE OF EXAM: 05/24/2023 5:25 AM CLINICAL INDICATION:Male, 63 years old with history of right lower lung opacity; PH[facility] COMPARISON: Chest radiographs from TECHNIQUE: XR chest 1V portable Frontal view of the chest. FINDINGS: Lungs/Pleura: There is no evidence of pleural effusion, focal consolidation, or pneumothorax. Pulmonary vascularity: Pulmonary vascular congestion. Heart/mediastinum: Cardiomediastinal silhouette is enlarged and stable. Musculoskeletal: No acute osseous pathology. There is fixation hardware in the lower cervical spine. IMPRESSION: Cardiomegaly and mild pulmonary vascular congestion. Correlate with BNP for congestive heart failure.
[2023-05-24 09:48] VITALS: TEMP 97.8
--- NOTE | 2023-05-24 09:48 | P.PN ---
Subjective Progress Note Date: 05/24/23 This is a 63-year-old male with past medical history significant for pression COPD. He continues to smoke one pack per day, smokes marijuana and drinks alcohol daily. He was just discharged from here on 05/15/2023 following a COPD exacerbation requiring BiPAP support. He was still on Augmentin and prednisone taper. He came back to the emergency room last evening following an acute episode of shortness of breath. His condition deteriorated and he required intubation and mechanical ventilatory support. He is seen today in the intensive care unit. He is on the ventilator and assist control mode at a rate of 24, tidal volume 450, FiO2 40% and a PEEP of 5. Morning blood gases revealed a PaO2 of 147, P CO2 42 and a PEEP H of 7.33. He has normal saline at 130 ML's per hour. He is sedated on propofol at 45 mcg/kg/m. Currently on fentanyl at 1 mcg/kg per hour. Nimbex at 2 mcg/kg/m. X-ray reveals multifocal airspace opacities. Endotracheal tube and nasogastric tubes in good position. Left IJ Wallace-Arianna catheter good position. CT angiogram ruled out saddle emboli. Groundglass infiltrates in the upper and mid lungs. Possible underlying bronchomalacia particularly the right mainstem bronchus. White count 37.8. Hemoglobin 12.3. D-dimer 0.33. Sodium 141 potassium 4.1. Bicarb 22. BUN 27. Creatinine 1.14. Glucose 180. AST 32. ALT 43. Troponin 0.051. ProBNP 1250. He's been initiated and DuoNeb inhalations every 4 hours and antibiotics in the form of Zosyn. The patient is seen today 05/21/2023 in follow-up in the intensive care unit. He remains intubated on the mechanical ventilator and assist control mode at a rate of 24, tidal volume 450, FiO2 30% and a PEEP of 5. Morning blood gases reveal a P O2 of 99, pCO2 of 36 and a pH of 7.44. He is sedated on propofol at 50 mg/kg/m, fentanyl at 2 mcg/kg per hour, Nimbex at 4 mcg/kg/m. Normal saline at 130 ML's per hour. His pro calcitonin was 0.72. He remains on Zosyn. Chest x-ray continues to show multifocal airspace opacities. Sputum culture is pending. White count 14.3. Hemoglobin 10.9. Platelets 243. Sodium 138. Potassium 4.1. Bicarb 22. BUN 19. Creatinine 0.68. Glucose 101. He remains on DuoNeb inhalations every 4 hours. He is being nourished with vital HP @ 20 ML's per hour On 05/22/2023, the patient is being seen in follow-up. The patient currently is intubated on a mechanical ventilator. He was hospitalized for COPD exacerbation, failed BiPAP and ultimately had to be intubated and placed on mechanical ventilator, sedated and paralyzed and subsequently the paralytic was discontinued. The patient currently is on propofol which is running at 60 mcg/kg/m. He is also on fentanyl drip running at 1 mcg/kg/h. He is on assist- control mode of mechanical ventilation at the rate of 24, tidal volume of 450, FiO2 is at 30% with a PEEP of 5. Blood gas shows a pH of 7.44 with a pCO2 of 35 and pO2 of 90. His peak airway pressure is at 32. The auto PEEP is at 6.1, his plateau airway pressure is at 26airfit chest x-ray shows some increased interstitial markings bilaterally. No evidence of any pneumonia. The patient is known to me. I've taking care of them during an earlier hospitalization for COPD exacerbation respiratory failure along with Covid 19 pneumonia. His current viral screen is negative. The patient's WBC count of 12.7, he was then 0.2 and a platelet count is at 228. Sodium level is at 137, BUN is at 22 with a creatinine of 0.8. He has a gram-negative bacillus in his sputum and the patient remains on IV Zosyn. He is on bronchodilators. He is also on no steroids. IV fluids are running at 130 mL an hour. He is on vital high-protein running at the rate of 54 mL an hour. His previous echocardiogram from 05/10/2023 showed a preserved LV function, right ventricular systolic pressure was 40. His previous CT angiogram of the chest that was done on 05/18/2023 showed no evidence of any pulmonary embolism. There was some bilateral groundglass pulmonary infiltrates. Nevertheless, the patient tested negative for Covid 19 and he tested negative for influenza. Initial white cell count was at 35 and currently is down to 12.7. He is afebrile. He is hemodynamically stable and he is on no pressors for now. Pro-calcitonin level at the time of admission was 0.72. 05/23/2023, the patient remains on a mechanical ventilator. Earlier this morning, the patient is on propofol running at 60 microvascular kilogram per minute. He is arousable and is following some simple commands even while being on propofol. His family denies history of alcoholism. Nevertheless, he seems to have a very high tolerance hours propofol. He is also on fentanyl running at 2 mcg/kg/h. The patient is currently on assist-control mode of mechanical ventilation at the rate of 24, tidal volume of 450, FiO2 is at 30% with a PEEP of 5. Peak airway pressures improved compared to yesterday's currently down to 27. On examination, he is less bronchospastic and wheezy. No significant orotracheal secretions. PH is at 7.44 with episodes of 35 and pO2 of 93. The chest x-ray from today shows some limited airspace disease in the right lower lobe and this could be potentially an area of atelectasis. Small effusion is also seen in the left lung. Sputum culture was positive for pseudomonas aeruginosa and Aspergillus fumigatus. The patient is currently on IV Zosyn. The patient remains on bronchodilators. The patient is also on IV Solu-Medrol 40 mg by mouth 8 hours. He is receiving enteral feeding for nutritional support and he is on vital high- protein at the rate of 20 mL an hour On 05/24/2023, I'm seeing the patient for a follow-up. We managed to wean the patient off the mechanical ventilator and he was extubated yesterday without any major difficulties. This morning, sitting up on a chair and is on oxygen at 3 L/m nasal cannula. As mentioned, his sputum was positive for Pseudomonas and the patient remains on IV Zosyn. The patient also had Aspergillus in the sputum probably a colonizer. Serum Aspergillus IgE antibiotics were negative, awaiting also IgG antibodies. Chest x-ray findings are stable consistent with COPD. No interval change in the chest x-ray findings. ET tube has been removed. His cardiac megaly and some mild pulmonary vessel congestion. He is hemodynamically stable. White cycles 24 with a hemoglobin of 12.2 and there is a rise in a white cell count. Sodium level is at 139, potassium is at 4.3, chlorides 104 and bicarb is 25. The patient remains on bronchodilators. The patient remains on IV Solu-Medrol 40 mg every 8 hours. He remains on IV Zosyn. Objective - Vital Signs Vital signs: Vital Signs Temp 97.8 F 05/24/23 08:00 Pulse 80 05/24/23 09:24 Resp 21 05/24/23 09:00 BP 119/79 05/24/23 09:00 Pulse Ox 97 05/24/23 09:00 FiO2 30 05/23/23 10:00 Intake & Output 05/23/23 05/24/23 05/24/23 18:59 06:59 18:59 Intake Total 393.132 450 100 Output Total 3980 1620 150 Balance -3586.868 -1170 -50 Weight 78.8 kg Intake: IV 175 A line 15 Sodium Chloride 0.9% 1, 160 000 ml @ 40 mls/hr IV . Q24H [facility] Rx#:[id number] Intake, IV Titration 198.132 100 Amount Piperacillin-Tazobactam 3 100 .375 gm In Sodium Chloride 0.9% 100 ml @ 25 mls/hr IVPB Q8H [facility] Rx#: [id number] fentaNYL (PF). 1,000 mcg 60.499 In Sodium Chloride 0.9% 80 ml @ 0.5 MCG/KG/HR 3. 742 mls/hr IV .Q24H [facility] Rx#:[id number] propofoL 1,000 mg In 137.633 Empty Bag 1 bag @ 15 MCG/ KG/MIN 6.736 mls/hr IV . [id number] [facility] Rx#:[id number] Oral 450 Tube Feeding 20 Output: Urine 3980 1620 150 Other: Voiding Method Indwelling Catheter Indwelling Catheter Indwelling Catheter # Bowel Movements 1 ABP, PAP, CO, CI - Last Documented Arterial Blood Pressure 160/80 - Exam GENERAL EXAM: Intubated, sedated, paralyzed 63-year-old male, in no apparent distress, extubated to 3 L of oxygen by nasal cannula HEAD: Normocephalic. EYES: Normal reaction of pupils, equal size. NOSE: Clear with pink turbinates. THROAT: No erythema or exudates. NECK: No masses, no JVD. CHEST: No chest wall deformity. LUNGS: Equal air entry with few scattered rhonchi. CVS: S1 and S2 normal with no audible murmur, regular rhythm. ABDOMEN: No hepatosplenomegaly, normal bowel sounds, no guarding or rigidity. SPINE: No scoliosis or deformity SKIN: No rashes CENTRAL NERVOUS SYSTEM: Neurologically, the patient is awake and alert and the patient does not have any focal neurological deficit. Cranial nerves are essentially intact. EXTREMITIES: There is no peripheral edema. No clubbing, no cyanosis. Peripheral pulses are intact. - Labs CBC & Chem 7: 05/24/23 05:14 05/24/23 05:14 Labs: Abnormal Lab Results - Last 24 Hours (Table) 05/23/23 05/24/23 05/24/23 Range/Units 11:33 05:14 05:14 WBC 24.0 H (3.8-10.6) k/uL RBC 4.12 L (4.30-5.90) m/uL Hgb 12.2 L (13.0-17.5) gm/dL Hct 37.7 L (39.0-53.0) % Neutrophils # 23.1 H (1.3-7.7) k/uL Lymphocytes # 0.3 L (1.0-4.8) k/uL BUN 27 H (9-20) mg/dL Glucose 155 H (74-99) mg/dL POC Glucose (mg/dL) 139 H (70-110) mg/dL Microbiology - Last 24 Hours (Table) 05/19/23 23:43 Gram Stain - Final Sputum Sputum Culture - Final Pseudomonas aeruginosa Aspergillus fumigatus Assessment and Plan Plan: Acute hypoxemic respiratory failure secondary to an acute exacerbation of COPD and possible continued underlying pneumonia requiring intubation and mechanical ventilatory support on 05/19/2023. The patient was extubated on 05/23/2023 is currently on 3 L of oxygen by nasal cannula. He did have a pseudomonal growth in the sputum rule out pseudomonal tracheal bronchitis/pneumonia. 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 His overall rest or status is improved. Acute leukocytosis currently under investigation. The patient remains on IV Zosyn. Recent discharge on 05/15/2023 for a COPD exacerbation requiring BiPAP support Recent discharge in February 2023 for bilateral pneumonia Chronic and ongoing tobacco dependence of nearly 50 years Daily alcohol use. Marijuana use History of depression Plan: Extubated to nasal cannula on 05/23/2023 We'll discontinue Brand catheter Discontinue the IV Solu-Medrol and start the patient a prednisone burst taper starting with 40 mg Start the patient on Symbicort 2 puffs twice a day Continue IV Zosyn Advance diet as tolerated Change IV fluids to KVO Check Aspergillus antibodies both IgG and IgE Recheck pro-calcitonin level His previous echocardiogram was within normal limits We'll continue to follow A transferred to the medical floor at the later stage.
[2023-05-24] MEDS: METOPROLOL SUCCINATE (ER) 25 MG TAB.ER.24H PO SCH (12:29)
--- NOTE | 2023-05-24 13:31 | CONS ---
CONSULTATION CHIEF COMPLAINT: Atrial fibrillation. HISTORY OF PRESENT ILLNESS: Fausto is a 63-year-old gentleman with history of COPD who was admitted to hospital with COPD exacerbation and had to be intubated and been on vent. Cardiology is consulted as the patient had episodes of atrial fibrillation yesterday. This morning, he was extubated and able to get up and walk around. There is no prior cardiac history. Denies history of coronary artery disease, congestive heart failure or atrial fibrillation. There is history of hypertension for which he takes amlodipine, but otherwise his predominant problem is COPD. He is 63 and not a diabetic and his episodes of atrial fibrillation were transient, self-limited, and in the setting of respiratory failure, so unless he develops further episodes of AFib or I have other reasons to start him on anticoagulant which is cardiomyopathy. I am not going to initiate any anticoagulant at this time. I will obtain a 2D echo to evaluate his LV function. PAST MEDICAL HISTORY: Significant for COPD. MEDICATIONS: At home included, 1. Norvasc. 2. Flomax. 3. Mobic. 4. DuoNeb. 5. Cymbalta. 6. Symbicort. 7. Albuterol. ALLERGIES: To Entresto, trazodone. FAMILY HISTORY: Negative for premature coronary artery disease. SOCIAL HISTORY: He denies smoking, ETOH abuse, or drug abuse. REVIEW OF SYSTEMS: A review of systems has been performed, pertinent are as documented. PHYSICAL EXAMINATION: VITAL SIGNS: Heart rate is 76, blood pressure is 118/87, respiratory rate is 16, O2 saturation is 98% on 3 L. NECK: There is no jugular venous distention. CHEST: Reveals diminished air entry with occasional rhonchi. HEART: Reveals first and second heart sounds. No gallop, no murmur. ABDOMEN: Soft. Exam of extremities did not reveal any edema. Peripheral pulses are felt. LABORATORY DATA: Labs showed that the white cell count is 24. Platelet count is 270. Hemoglobin is 12.2, potassium is 4.3, creatinine is 0.8. ASSESSMENT AND PLAN: 1. Paroxysmal atrial fibrillation. 2. Vent-requiring respiratory failure. 3. I will obtain a 2D echo. Start the patient on Toprol-XL 25 mg daily. MMODL / IJN: [id number] /
[2023-05-24 13:50] VITALS: BMI 24.9
--- NOTE | 2023-05-24 14:58 | CA ---
Transthoracic Echo Report Name: Fausto Willis Age: 63 Gender: M : 1960 Exam Date: 05/24/2023 12:39 Exam Location: [facility] Ht (in): 70 Wt (lb): 173 Ordering Physician: Chi Dominguez MD ([id number]) Attending/Referring Phys: Alberto ROBERT [employer]ing Unit Operator Zeke Rodriguez Procedure CPT: Indications: new onset afib rvr Cardiac Hx: Technical Quality: Fair Contrast 1: Total Dose (mL): Contrast 2: Total Dose (mL): MEASUREMENTS (Male / Female) Normal Values 2D ECHO LV Diastolic Diameter PLAX 4.8 cm 4.2 - 5.9 / 3.9 - 5.3 cm LV Systolic Diameter PLAX 3.4 cm IVS Diastolic Thickness 0.9 cm 0.6 - 1.0 / 0.6 - 0.9 cm LVPW Diastolic Thickness 1.0 cm 0.6 - 1.0 / 0.6 - 0.9 cm LV Relative Wall Thickness 0.4 RV Internal Dim ED PLAX 2.5 cm LV Diastolic Volume MOD BP 36.2 cm??? 67 - 155 / 56 - 104 cm??? LV Systolic Volume MOD BP 13.5 cm??? 22 - 58 / 19 - 49 cm??? LV Ejection Fraction MOD BP 62.9 % >= 55 % LV Cardiac Index MOD BP 853.4 cm???/min???m??? LV Diastolic Volume MOD 4C 43.6 cm??? LV Systolic Volume MOD 4C 17.2 cm??? LV Ejection Fraction MOD 4C 60.6 % LV Cardiac Index MOD 4C 989.2 cm???/min???m??? LV Diastolic Length 4C 6.9 cm LV Systolic Length 4C 5.5 cm LV Diastolic Volume MOD 2C 28.1 cm??? LV Systolic Volume MOD 2C 10.6 cm??? LV Ejection Fraction MOD 2C 62.5 % LV Cardiac Index MOD 2C 658.6 cm???/min???m??? LV Diastolic Length 2C 6.4 cm LV Systolic Length 2C 5.5 cm DOPPLER AV Peak Velocity 131.0 cm/s AV Peak Gradient 6.9 mmHg TR Peak Velocity 289.6 cm/s TR Peak Gradient 33.6 mmHg Right Ventricular Systolic Press 38.6 mmHg FINDINGS Left Ventricle Normal LV size and wall thickness. Left ventricular ejection fraction is estimated at55-60 %. Right Ventricle Normal right ventricular size. RVSP= 39mmHg. Right Atrium Normal right atrial size. Left Atrium Normal left atrial size. Mitral Valve Aortic Valve Tricuspid Valve Pulmonic Valve Pericardium Normal pericardium. Aorta CONCLUSIONS Normal left ventricular ejection fraction 55-60% RVSP 39 No mitral regurgitation No pericardial effusion Previewed by: Dr. Dameon Joseph DO (Electronically Signed) Final Date: 24 May 2023 14:57
[2023-05-24 17:20] VITALS: BP 127/86; PULSE 92; RESP 20
[2023-05-24] MEDS: SYMBICORT 160-4.5 MCG INHALER INHALATION SCH (20:30)
--- NOTE | 2023-05-24 20:57 | P.PN ---
Subjective 63-year-old male with past medical history significant for COPD, smokes marijuana and drinks alcohol daily, discharged from here on 05/15/2023 following a COPD exacerbation requiring BiPAP support. Patient came back to the emergency room with an acute episode of shortness of breath. His condition deteriorated and he required intubation and mechanical ventilatory support. He is seen today in the intensive care unit. Morning blood gases revealed a PaO2 of 147, P CO2 42 and a PEEP H of 7.33. He is sedated. X-ray reveals multifocal airspace opacities. CT angiogram ruled out saddle emboli. Groundglass infiltrates in the upper and mid lungs. Possible underlying bronchomalacia particularly the right mainstem bronchus. White count 37.8. Hemoglobin 12.3. D-dimer 0.33. Sodium 141 potassium 4.1. Bicarb 22. BUN 27. Creatinine 1.14. Glucose 180. AST 32. ALT 43. Troponin 0.051. ProBNP 1250. He's been initiated and DuoNeb inhalations every 4 hours and antibiotics in the form of Zosyn. 05/21/2023 Patient is seen and evaluated in follow-up in the intensive care unit. He remains intubated on the mechanical ventilator. Patient remained sedated Blood gases reveal a PO2 of 99, pCO2 of 36 and a pH of 7.44 -- pro calcitonin was 0.72. He remains on Zosyn. Chest x-ray continues to show multifocal airspace opacities. Sputum culture is pending. -- White count 14.3. Hemoglobin 10.9. Platelets 243. Sodium 138. Potassium 4.1. Bicarb 22. BUN 19. Creatinine 0.68. Glucose 101. 05/22/2023 Patient remains in the ICU intubated and sedated and on mechanical ventilation with pulmonary/critical care team following closely. Remains on Zosyn and IV Solu-Medrol for his acute COPD exacerbation and bilateral interstitial pneumonia with mildly elevated procalcitonin Sputum culture has grown gram-negative bacilli Patient also on gentle hydration with normal saline 40 mL/h labs are reviewed and looks stable 05/23/2023 Patient intubated and sedated in the ICU with pulmonary/critical care team following closely. His total monthly tachycardic, heart rhythm is 104, blood pressure is stable. Breathing quietly. Labs reviewed WBC 11,000, hemoglobin around 11. Chest x-ray showed worsening interstitial infiltrates Physical cultures growing Pseudomonas and Acinetobacter His current it covered with Zosyn and Solu-Medrol 40 mg or. Normal saline at 40 mL/h 05/24/2023 05/24/2023 Patient got extubated and currently he is on 2-3 L oxygen via nasal cannula. He feels improved and he is asking repeatedly to be discharged today. We explained for the patient is not ready for discharge. 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 He has significant leukocytosis of jumped from 11,000-24,000. His chest x-ray showing improvement in the area patient with some evidence of chronic COPD changes. Patient IV; switched to prednisone burst taper starting 40 mg. Also has evidence of tachycardia, who was diagnosed with A. fib by solar designer/installer and started on metoprolol 25 mg daily currently no IV fluid he tolerates diet w ell. Patient would be transferred to the general medical floor Objective - Vital Signs Vital signs: Vital Signs Temp 97.8 F 05/24/23 08:00 Pulse 97 05/24/23 14:00 Resp 12 05/24/23 14:00 BP 124/79 05/24/23 14:00 Pulse Ox 97 05/24/23 14:00 FiO2 30 05/23/23 10:00 Intake & Output 05/23/23 05/24/23 05/24/23 18:59 06:59 18:59 Intake Total 393.132 450 300 Output Total 3980 1620 250 Balance -3586.868 -1170 50 Weight 78.8 kg 78.8 kg Intake: IV 175 A line 15 Sodium Chloride 0.9% 1, 160 000 ml @ 40 mls/hr IV . Q24H [facility] Rx#:[id number] Intake, IV Titration 198.132 100 Amount Piperacillin-Tazobactam 3 100 .375 gm In Sodium Chloride 0.9% 100 ml @ 25 mls/hr IVPB Q8H [facility] Rx#: [id number] fentaNYL (PF). 1,000 mcg 60.499 In Sodium Chloride 0.9% 80 ml @ 0.5 MCG/KG/HR 3. 742 mls/hr IV .Q24H [facility] Rx#:[id number] propofoL 1,000 mg In 137.633 Empty Bag 1 bag @ 15 MCG/ KG/MIN 6.736 mls/hr IV . [id number] [facility] Rx#:[id number] Oral 450 200 Tube Feeding 20 Output: Urine 3980 1620 250 Other: Voiding Method Indwelling Catheter Indwelling Catheter Urinal # Bowel Movements 1 ABP, PAP, CO, CI - Last Documented Arterial Blood Pressure 160/80 - Exam -GENERAL: The patient is awake alert 3, mild tachypnea HEENT: Pupils are round and equally reacting to light. EOMI. No scleral icterus. No conjunctival pallor. Normocephalic, atraumatic. No pharyngeal erythema. No thyromegaly. CARDIOVASCULAR: S1 and S2 present. No murmurs, rubs, or gallops. -PULMONARY: Chest is clear to auscultation, no wheezing , no crackles. Improving aeration ABDOMEN: Soft, nontender, nondistended, normoactive bowel sounds. No palpable organomegaly. MUSCULOSKELETAL: No joint swelling or deformity. EXTREMITIES: No cyanosis, clubbing, or pedal edema. NEUROLOGICAL: Gross neurological examination did not reveal any focal deficits. SKIN: No rashes. no petechiae. - Labs CBC & Chem 7: 05/24/23 05:14 05/24/23 05:14 Labs: Abnormal Lab Results - Last 24 Hours (Table) 05/24/23 05/24/23 Range/Units 05:14 05:14 WBC 24.0 H (3.8-10.6) k/uL RBC 4.12 L (4.30-5.90) m/uL Hgb 12.2 L (13.0-17.5) gm/dL Hct 37.7 L (39.0-53.0) % Neutrophils # 23.1 H (1.3-7.7) k/uL Lymphocytes # 0.3 L (1.0-4.8) k/uL BUN 27 H (9-20) mg/dL Glucose 155 H (74-99) mg/dL Microbiology - Last 24 Hours (Table) 05/19/23 23:43 Gram Stain - Final Sputum Sputum Culture - Final Pseudomonas aeruginosa Aspergillus fumigatus Assessment and Plan Assessment: Diagnoses: 1. Acute hypoxic respiratory failure; related to COPD exacerbation/pneumonia -- Patient status post extubation and currently on 2-3 L oxygen -- Continue with the prednisone 40 mg -- Patient is currently on IV Zosyn 2. Acute exacerbation COPD; continue with bronchodilator nebulizer treatments 4 times a day and when necessary. Continue on prednisone 3. Bilateral pneumonia; continue with IV Zosyn; 4. Chronic tobacco use 5. Substance abuse; patient uses marijuana and alcohol use daily 6. New-onset A. fib diagnosed by solar designer/installer DVT prophylaxis; SCDs CODE STATUS; full code
--- NOTE | 2023-05-25 05:57 | P.DS ---
Providers Date of admission: 05/19/23 22:24 Attending physician: Eva Saba Consults: 05/19/23 22:07 Consult Physician Routine Consulting Provider: Rui Norwood Consult Reason/Comments: icu patient Do you want consulting provider notified?: Yes 05/23/23 12:31 Consult Physician Urgent Consulting Provider: Chi Dominguez Consult Reason/Comments: a fib Do you want consulting provider notified?: Yes Primary care physician: Joseph Granger MD Hospital Course: please note pt was not discharged but he left AMA Diagnoses: 1. Acute hypoxic respiratory failure; related to COPD exacerbation/pneumonia -- Patient status post extubation and currently on 2-3 L oxygen -- Continue with the prednisone 40 mg -- Patient is currently on IV Zosyn 2. Acute exacerbation COPD; continue with bronchodilator nebulizer treatments 4 times a day and when necessary. Continue on prednisone 3. Bilateral pneumonia; continue with IV Zosyn; 4. Chronic tobacco use 5. Substance abuse; patient uses marijuana and alcohol use daily 6. 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 He was doing well. Patient left AMA before a have the chance to see him and talk to him again. Based upon my evaluation patient has capacity to make medical decision Please refer to previous note for more details Patient Condition at Discharge: Critical Plan - Discharge Summary New Discharge Prescriptions: No Action DULoxetine HCL [Cymbalta] 60 mg PO DAILY Ipratropium-Albuterol Nebulize [Duoneb 0.5 mg-3 mg/3 ml Soln] 3 ml INHALATION RT-QID #100 each Albuterol Sulfate [Ventolin HFA] 2 puff INHALATION RT-QID PRN PRN Reason: Shortness Of Breath Meloxicam [Mobic] 15 mg PO DAILY DULoxetine HCL [Cymbalta] 30 mg PO HS amLODIPine [Norvasc] 5 mg PO DAILY #30 tab predniSONE See Taper PO DIRECTED Baclofen [Lioresal] 20 mg PO TID PRN PRN Reason: Muscle Spasm Budesonide-Formot 160-4.5 Mcg [Symbicort 160-4.5 Mcg Inhaler] 2 puff IN HALATION RT-BID Tamsulosin [Flomax] 0.4 mg PO DAILY HYDROcodone/APAP 7.5-325MG [[place] 7.5-325] 1 tab PO BID PRN PRN Reason: Pain Ipratropium [place] 0.06%Nasal [Atrovent Nasal 0.06%] 2 spr EA NOSTRIL TID Amoxic-Pot Clav 875-125Mg [Augmentin 875-125] 1 tab PO Q12HR Discharge Medication List DULoxetine HCL [Cymbalta] 60 mg PO DAILY 04/15/22 [History] Baclofen [Lioresal] 20 mg PO TID PRN 01/13/23 [History] Budesonide-Formot 160-4.5 Mcg [Symbicort 160-4.5 Mcg Inhaler] 2 puff INHALATION RT-BID 03/12/23 [History] Ipratropium-Albuterol Nebulize [Duoneb 0.5 mg-3 mg/3 ml Soln] 3 ml INHALATION RT-QID #100 each 03/15/23 [Rx] Albuterol Sulfate [Ventolin HFA] 2 puff INHALATION RT-QID PRN 05/10/23 [History] DULoxetine HCL [Cymbalta] 30 mg PO HS 05/10/23 [History] HYDROcodone/APAP 7.5-325MG [[place] 7.5-325] 1 tab PO BID PRN 05/10/23 [History] Ipratropium [place] 0.06%Nasal [Atrovent Nasal 0.06%] 2 spr EA NOSTRIL TID 05/10/23 [History] Meloxicam [Mobic] 15 mg PO DAILY 05/10/23 [History] Tamsulosin [Flomax] 0.4 mg PO DAILY 05/10/23 [History] amLODIPine [Norvasc] 5 mg PO DAILY #30 tab 05/15/23 [Rx] Amoxic-Pot Clav 875-125Mg [Augmentin 875-125] 1 tab PO Q12HR 05/19/23 [History] predniSONE See Taper PO DIRECTED 05/19/23 [History] Follow up Appointment(s)/Referral(s): Joseph Granger MD [Primary Care Provider] - 1-2 days Discharge Disposition: LEFT AGAINST MEDICAL ADVICE
[2023-05-25] MEDS ORDERED: predniSONE 20 MG TAB PO SCH (09:00)
== END 2023-05-24 20:55 | disposition left against medical advice (07) | DRG 720 ==
LOC: EC 18:43 → 2SICU 22:24
PROVIDERS: ADMIT Hospitalist; ATTEND Hospitalist
PROC: 5A1945Z Respiratory Ventilation, 24-96 Consecutive Hours (ICD-10-PCS; principal; 2023-05-19)
PROC: 0BH18EZ Insertion of Endotracheal Airway into Trachea, Via Natural or Artificial Opening Endoscopic (ICD-10-PCS; 2023-05-19)
PROC: 5A09357 Assistance with Respiratory Ventilation, Less than 24 Consecutive Hours, Continuous Positive Airway Pressure (ICD-10-PCS; 2023-05-19)
PROC: 0D9670Z Drainage of Stomach with Drainage Device, Via Natural or Artificial Opening (ICD-10-PCS; 2023-05-19)
PROC: 02HV33Z Insertion of Infusion Device into Superior Vena Cava, Percutaneous Approach (ICD-10-PCS; 2023-05-20)
PROC: 04HY32Z Insertion of Monitoring Device into Lower Artery, Percutaneous Approach (ICD-10-PCS; 2023-05-20)
PROC: 4A133B1 Monitoring of Arterial Pressure, Peripheral, Percutaneous Approach (ICD-10-PCS; 2023-05-20)
PROC: 4A133J1 Monitoring of Arterial Pulse, Peripheral, Percutaneous Approach (ICD-10-PCS; 2023-05-20)
PROC: 3E0G76Z Introduction of Nutritional Substance into Upper GI, Via Natural or Artificial Opening (ICD-10-PCS; 2023-05-21)
DX: A41.52 Sepsis due to Pseudomonas (principal); J96.01 Acute respiratory failure with hypoxia; F10.231 Alcohol dependence with withdrawal delirium; J15.1 Pneumonia due to Pseudomonas; J44.0 Chronic obstructive pulmonary disease with (acute) lower respiratory infection; J44.1 Chronic obstructive pulmonary disease with (acute) exacerbation; J84.9 Interstitial pulmonary disease, unspecified; I48.0 Paroxysmal atrial fibrillation; J98.09 Other diseases of bronchus, not elsewhere classified; I10 Essential (primary) hypertension; F32.A Depression, unspecified; F17.210 Nicotine dependence, cigarettes, uncomplicated; B96.83 Acinetobacter baumannii as the cause of diseases classified elsewhere; Z53.29 Procedure and treatment not carried out because of patient's decision for other reasons; Z11.52 Encounter for screening for COVID-19; Z98.1 Arthrodesis status; Z79.51 Long term (current) use of inhaled steroids; Z79.899 Other long term (current) drug therapy; Z79.1 Long term (current) use of non-steroidal anti-inflammatories (NSAID); Z88.8 Allergy status to other drugs, medicaments and biological substances
CPT/HCPCS: 36415; 36600; 71045; 71275; 80048; 80053; 81001; 82805; 83605; 83735; 83880; 84145; 84484; 85025; 85027; 85379; 85610; 85730; 86003; 86606; 87070; 87077; 87186; 87205; 87636; 93005; 93308; 94002; 94003; 94640; 96361; 96374; 96375; 99291; 99292

== ENCOUNTER 2023-07-06 13:37 | Observation (INO) | payer OTHER ==
--- NOTE | 2023-07-06 14:34 | ED ---
General Adult HPI - General Chief complaint: Chest Pain Stated complaint: Chest Pain, Abn Labs - Transfer Time Seen by Provider: 07/06/23 13:37 Source: patient, EMS, RN notes reviewed, old records reviewed Mode of arrival: EMS Limitations: no limitations - History of Present Illness Initial comments: This is a 63-year-old male who comes to us from [facility] with an elevated troponin. Patient came in earlier this morning because his thought he was altered mentally and they did a workup on him and he is alert and oriented x 4 currently but his troponin was bumped over this possible and they do not have a hydraulic billet maker so they sent him to us. Patient has no chest pain difficulty breathing or shortness of breath. Patient denies any fever chills or cough or patient denies any headache patient has numbness weakness. Patient [place] any abdominal pain patient denies nausea vomiting diarrhea. - Related Data Home Medications Medication Instructions Recorded Confirmed DULoxetine HCL [Cymbalta] 60 mg PO DAILY 04/15/22 05/19/23 Baclofen [Lioresal] 20 mg PO TID PRN 01/13/23 05/19/23 Budesonide-Formot 160-4.5 Mcg 2 puff INHALATION RT-BID 03/12/23 05/19/23 [Symbicort 160-4.5 Mcg Inhaler] Albuterol Sulfate [Ventolin HFA] 2 puff INHALATION RT-QID PRN 05/10/23 05/19/23 DULoxetine HCL [Cymbalta] 30 mg PO HS 05/10/23 05/19/23 HYDROcodone/APAP 7.5-325MG [[place] 1 tab PO BID PRN 05/10/23 05/19/23 7.5-325] Ipratropium [place] 0.06%Nasal 2 spr EA NOSTRIL TID 05/10/23 05/19/23 [Atrovent Nasal 0.06%] Meloxicam [Mobic] 15 mg PO DAILY 05/10/23 05/19/23 Tamsulosin [Flomax] 0.4 mg PO DAILY 05/10/23 05/19/23 Previous Rx's Medication Instructions Recorded Ipratropium-Albuterol Nebulize 3 ml INHALATION RT-QID #100 each 03/15/23 [Duoneb 0.5 mg-3 mg/3 ml Soln] Allergies Allergy/AdvReac Type Severity Reaction Status Date / Time potassium chloride Allergy Swelling Verified 07/06/23 14:19 [From Klor-Con] sacubitril [From Entresto] Allergy Unknown Verified 07/06/23 14:19 trazodone Allergy Rash/Hives Verified 07/06/23 14:19 valsartan [From Entresto] Allergy Unknown Verified 07/06/23 14:19 Review of Systems ROS Statement: Those systems with pertinent positive or pertinent negative responses have been documented in the HPI. ROS Other: All systems not noted in ROS Statement are negative. Past Medical History Past Medical History: COPD, Pneumonia Additional Past Medical History / Comment(s): back pain History of Any Multi-Drug Resistant Organisms: None Reported Past Surgical History: Back Surgery, Cardiac Ablation Additional Past Surgical History / Comment(s): neck fusion,rt eye surgery, rt hand surgery, cateracts Past Anesthesia/Blood Transfusion Reactions: No Reported Reaction Past Psychological History: Depression Smoking Status: Current every day smoker Past Alcohol Use History: None Reported Past Drug Use History: Marijuana - Past Family History Mother History Unknown: Yes Family Medical History: Myocardial Infarction ([place]) Additional Family Medical History / Comment(s): from [place] General Exam - General Exam Comments Initial Comments: GENERAL: Patient is well-developed and well-nourished. Patient is nontoxic and well- hydrated and is in no acute distress. ENT: Neck is soft and supple. No significant lymphadenopathy is noted. Oropharynx is clear. Moist mucous membranes. Neck has full range of motion without eliciting any pain. EYES: The sclera were anicteric and conjunctiva were pink and moist. Extraocular movements were intact and pupils were equal round and reactive to light. Eyelids were unremarkable. PULMONARY: Unlabored respirations. Good breath sounds bilaterally. No audible rales rhonchi or wheezing was noted. CARDIOVASCULAR: There is a regular rate and rhythm without any murmurs gallops or rubs. ABDOMEN: Soft and nontender with normal bowel sounds. SKIN: Skin is clear with no lesions or rashes and otherwise unremarkable. NEUROLOGIC: Patient is alert and oriented x3. Cranial nerves II through XII are grossly intact. Motor and sensory are also intact. Normal speech, volume and content. Symmetrical smile. MUSCULOSKELETAL: Normal extremities with adequate strength and full range of motion. No lower extremity swelling or edema. No calf tenderness. LYMPHATICS: No significant lymphadenopathy is noted PSYCHIATRIC: Normal psychiatric evaluation. Limitations: no limitations Course Vital Signs 07/06/23 13:38 Temperature 98.2 F Pulse Rate 95 Respiratory 18 Rate Blood Pressure 135/91 O2 Sat by Pulse 99 Oximetry Medical Decision Making - Medical Decision Making EKG is interpreted by myself. EKG shows a sinus rhythm with an occasional PAC. Patient's rate is 90 bpm parable 104 QRS is 80 QT interval 327 QTc is 383. Patient's EKG shows no ST segment ovation or depression. Was pt. sent in by a medical professional or institution (, PA, DEHYDRATING PRESS OPERATOR, urgent care, hospital, or custodial...) When possible be specific @ -[facility] sent the patient to us Did you speak to anyone other than the patient for history (EMS, parent, family, police, friend...)? What history was obtained from this source @ -We spoke with the ER doc at [facility] Did you review nursing and triage notes (agree or disagree)? Why? @ -I reviewed and agree with nursing and triage notes Were old charts reviewed (outside hosp., previous admission, EMS record, old EKG, old radiological studies, urgent care reports/EKG's, custodial records)? Report findings @ -I reviewed patient charts and patient labs Differential Diagnosis (chest pain, altered mental status, abdominal pain women, abdominal pain men, vaginal bleeding, weakness, fever, dyspnea, syncope, headache, dizziness, GI bleed, back pain, seizure, CVA, palpatations, mental health, musculoskeletal)? @ -Differential Altered Mental Status: Hypoglycemia, DKA, hypercapnia, ETOH, overdose, CO poisoning, trauma, myxedema coma, HTN encephalopathy, infection, encephalitis, psychosis, intercranial hemorrhage, hepatic encephalopathy, meningitis, CVA, this is not meant to be an all-inclusive list Chest patient could also be having a heart attack or stable angina or unstable angina EKG interpreted by me (3pts min.). @ -As above X-rays interpreted by me (1pt min.). @ -None done CT interpreted by me (1pt min.). @ -None done U/S interpreted by me (1pt. min.). @ -None done What testing was considered but not performed or refused? (CT, X-rays, U/S, labs)? Why? @ -None What meds were considered but not given or refused? Why? @ -None Did you discuss the management of the patient with other professionals (professionals i.e. DrJuan Alberto, PA, DEHYDRATING PRESS OPERATOR, lab, RT, psych nurse, social work case manager, scuba diving teacher, teacher, state patrol officer, case technician)? Give summary @ -I spoke with Dr. Lewis and he agreed to admit the patient Was smoking cessation discussed for >3mins.? @ -No Was critical care preformed (if so, how long)? @ -No Were there social determinants of health that impacted care today? How? (Hannah elessness, low income, unemployed, alcoholism, drug addiction, transportation, low edu. Level, literacy, decrease access to med. care, [place] [facility], rehab)? @ -No Was there de-escalation of care discussed even if they declined (Discuss DNR or withdrawal of care, Hospice)? DNR status @ -No What co-morbidities impacted this encounter? (DM, HTN, Smoking, COPD, CAD, Cancer, CVA, ARF, Chemo, Hep., AIDS, mental health diagnosis, sleep apnea, morbid obesity)? @ -None Was patient admitted / discharged? Hospital course, mention meds given and route, prescriptions, significant lab abnormalities, going to OR and other pertinent info. @ -Patient's repeat troponin here was normal. Spoke with Dr. Lewis and he agreed to admit the patient admit the patient wrote admitting orders Undiagnosed new problem with uncertain prognosis? @ -No Drug Therapy requiring intensive monitoring for toxicity (Heparin, Nitro, Insulin, Cardizem)? @ -No Were any procedures done? @ -No Diagnosis/symptom? @ -Elevated troponin Acute, or Chronic, or Acute on Chronic? @ -Acute Uncomplicated (without systemic symptoms) or Complicated (systemic symptoms)? @ -Complicated Side effects of treatment? @ -No Exacerbation, Progression, or Severe Exacerbation? @ -No Poses a threat to life or bodily function? How? (Chest pain, [place], [place], pneumonia, PE, COPD, DKA, ARF, appy, cholecystitis, CVA, Diverticulitis, Homicidal, Suicidal, threat to staff... and all critical care pts) @ -No Disposition Clinical Impression: Elevated troponin Disposition: ADMITTED IP TO THIS HOSP Referrals: Joseph Granger MD [Primary Care Provider] - 1-2 days Time of Disposition: 14:37
[2023-07-06] MEDS ORDERED: NITROGLYCERIN SL TABS 0.4 MG TAB SUBLINGUAL PRN (14:37)
[2023-07-06] MEDS ORDERED: ALBUTEROL HFA INHALER INHALATION PRN (15:06)
[2023-07-06] MEDS ORDERED: MELATONIN 3 MG TABLET PO PRN (15:23)
[2023-07-06] MEDS ORDERED: NALOXONE 0.4 MG/ML 1 ML VIAL IV PRN (15:23)
[2023-07-06] MEDS ORDERED: ONDANSETRON 4 MG/2 ML VIAL IVP PRN (15:23)
--- NOTE | 2023-07-06 15:25 | P.HPIM ---
History of Present Illness H&P Date: 07/06/23 History of present illness; patient 63-year-old gentleman with past medical history significant for COPD, chronic hypoxemic respiratory failure who was transferred from [facility] for elevated troponin. Patient initially presented to [facility] for altered mental status that started overnight, according to patient's patient has been acting of since last night. Patient has history of COPD and was supposed to be on oxygen but has not been very compliant with it. There was no complaint of any slurred speech or weakness of any extremity. Patient did complain of chest pain central location and shortness of breath. There was no complaint of fever or chills. Because of the symptoms, patient was brought to [facility] Initial labs done there showed WBC 7.4, hemoglobin 13.2, platelet count 248, BUN was 13, creatinine 1.64, sodium 140, potassium 3.7, chloride 101, X-ray chest was done showed left basilar atelectasis CT brain done showed no acute intracranial process. CTA chest and abdomen done showed no evidence of aortic aneurysm or dissection. Showed COPD. Showed right hilar and mediastinal borderline adenopathy. Patient was later transferred [facility] and was admitted to internal medicine service REVIEW OF SYSTEMS: CONSTITUTIONAL: No fever, no malaise, no fatigue. HEENT: No recent visual problems or hearing problems. Denied any sore throat. CARDIOVASCULAR: No orthopnea, PND, no palpitations, no syncope. PULMONARY: As mentioned above GASTROINTESTINAL: No diarrhea, no nausea, no vomiting, no abdominal pain. NEUROLOGICAL: No headaches, no weakness, no numbness. HEMATOLOGICAL: Denies any bleeding or petechiae. GENITOURINARY: Denies any burning micturition, frequency, or urgency. MUSCULOSKELETAL/RHEUMATOLOGICAL: Denies any joint pain, swelling, or any muscle pain. ENDOCRINE: Denies any polyuria or polydipsia. The rest of the 14-point review of systems is negative. PHYSICAL EXAMINATION: GENERAL: The patient is alert and oriented x3, not in any acute distress. Well developed, well nourished. HEENT: Pupils are round and equally reacting to light. EOMI. No scleral icterus. No conjunctival pallor. Normocephalic, atraumatic. No pharyngeal erythema. No thyromegaly. CARDIOVASCULAR: S1 and S2 present. No murmurs, rubs, or gallops. PULMONARY: Coarse breath sound bilaterally, no wheezing or crackles. ABDOMEN: Soft, nontender, nondistended, normoactive bowel sounds. No palpable organomegaly. MUSCULOSKELETAL: No joint swelling or deformity. EXTREMITIES: No cyanosis, clubbing, or pedal edema. NEUROLOGICAL: Gross neurological examination did not reveal any focal deficits. SKIN: No rashes. Assessment and plan Chest pain Chronic hypoxemic respiratory failure Acute COPD exacerbation Depression Urinary retention Monitor vital signs Monitor CBC Monitor CMP Continue telemetry monitoring Trend troponin Order 2D echo Continue breathing treatment Ordered prednisone Start azithromycin Consult cardiology Consult pulmonology Resume home meds Labs and medication were reviewed.. Continue same treatment. Continue with symptomatic treatment. Resume home medication. Monitor labs and vitals. DVT and GI prophylaxis. Further recommendations as per clinical course of the patient Dictation was produced using [employer] dictation software. please excuse any grammatical, word or spelling errors. Past Medical History Past Medical History: COPD, Pneumonia Additional Past Medical History / Comment(s): back pain History of Any Multi-Drug Resistant Organisms: None Reported Past Surgical History: Back Surgery, Cardiac Ablation Additional Past Surgical History / Comment(s): neck fusion,rt eye surgery, rt hand surgery, cateracts Past Anesthesia/Blood Transfusion Reactions: No Reported Reaction Past Psychological History: Depression Smoking Status: Current every day smoker Past Alcohol Use History: None Reported Past Drug Use History: Marijuana - Past Family History Mother History Unknown: Yes Family Medical History: Myocardial Infarction ([place]) Additional Family Medical History / Comment(s): from [place] Medications and Allergies Home Medications Medication Instructions Recorded Confirmed Type DULoxetine HCL [Cymbalta] 60 mg PO DAILY 04/15/22 07/06/23 History Baclofen [Lioresal] 20 mg PO TID PRN 01/13/23 07/06/23 History Budesonide-Formot 160-4.5 Mcg 2 puff INHALATION RT-BID 03/12/23 07/06/23 History [Symbicort 160-4.5 Mcg Inhaler] Ipratropium-Albuterol Nebulize 3 ml INHALATION RT-QID #100 each 03/15/23 07/06/23 Rx [Duoneb 0.5 mg-3 mg/3 ml Soln] Albuterol Sulfate [Ventolin HFA] 2 puff INHALATION RT-QID PRN 05/10/23 07/06/23 History DULoxetine HCL [Cymbalta] 30 mg PO HS 05/10/23 07/06/23 History HYDROcodone/APAP 7.5-325MG [[place] 1 tab PO BID PRN 05/10/23 07/06/23 History 7.5-325] Ipratropium [place] 0.06%Nasal 2 spr EA NOSTRIL TID 05/10/23 07/06/23 History [Atrovent Nasal 0.06%] Meloxicam [Mobic] 15 mg PO DAILY 05/10/23 07/06/23 History Tamsulosin [Flomax] 0.4 mg PO DAILY 05/10/23 07/06/23 History Allergies Allergy/AdvReac Type Severity Reaction Status Date / Time potassium chloride Allergy Swelling Verified 07/06/23 14:19 [From Klor-Con] sacubitril [From Entresto] Allergy Unknown Verified 07/06/23 14:19 trazodone Allergy Rash/Hives Verified 07/06/23 14:19 valsartan [From Entresto] Allergy Unknown Verified 07/06/23 14:19 Physical Exam Vitals: Vital Signs Temp Pulse Resp BP Pulse Ox 07/06/23 13:38 98.2 F 95 18 135/91 99 Intake and Output 07/06/23 07/06/23 07/06/23 06:59 14:59 22:59 Other: Weight 77.111 kg
[2023-07-06] MEDS: IPRATROPIUM-ALBUTEROL 3 ML NEB INHALATION SCH (16:39)
[2023-07-06] MEDS: AZITHROMYCIN 500 MG in SODIUM CHLORIDE 0.9% 250 ML IVPB SCH (17:10)
[2023-07-06] MEDS: HYDROcodone/APAP 7.5-325MG 1 EACH TAB PO PRN (17:23)
[2023-07-06] MEDS: NITROGLYCERIN OINT 1 INCH/GM PACKET TOPICAL SCH (17:23)
[2023-07-06] MEDS: BACLOFEN 10 MG TAB PO PRN (17:24)
--- NOTE | 2023-07-06 18:08 | CA ---
Transthoracic Echo Report Name: Fausto Willis Age: 63 Gender: M : 1960 Exam Date: 07/06/2023 16:56 Exam Location: [facility] Ht (in): 70 Wt (lb): 170 Ordering Physician: Francisco Javier Lewis MD Attending/Referring Phys: Triple Air Valve Tester Zeke Rodriguez [facility] Procedure CPT: Indications: Chest Pain Cardiac Hx: Technical Quality: Fair Contrast 1: Total Dose (mL): Contrast 2: Total Dose (mL): MEASUREMENTS (Male / Female) Normal Values 2D ECHO LV Diastolic Diameter PLAX 4.9 cm 4.2 - 5.9 / 3.9 - 5.3 cm LV Systolic Diameter PLAX 3.8 cm IVS Diastolic Thickness 1.1 cm 0.6 - 1.0 / 0.6 - 0.9 cm LVPW Diastolic Thickness 1.1 cm 0.6 - 1.0 / 0.6 - 0.9 cm LV Relative Wall Thickness 0.4 RV Internal Dim ED PLAX 3.0 cm LVOT Diameter 2.1 cm Aortic Root Diameter 2.8 cm LA Systolic Diameter LX 2.5 cm 3.0 - 4.0 / 2.7 - 3.8 cm LV Diastolic Volume MOD BP 41.2 cm??? 67 - 155 / 56 - 104 cm??? LV Systolic Volume MOD BP 20.8 cm??? 22 - 58 / 19 - 49 cm??? LV Ejection Fraction MOD BP 49.5 % >= 55 % LV Cardiac Index MOD BP 959.0 cm???/min???m??? LV Diastolic Volume MOD 4C 45.5 cm??? LV Systolic Volume MOD 4C 18.4 cm??? LV Ejection Fraction MOD 4C 59.5 % LV Cardiac Index MOD 4C 1271.3 cm???/min???m??? LV Diastolic Length 4C 6.5 cm LV Systolic Length 4C 5.9 cm LV Diastolic Volume MOD 2C 35.3 cm??? LV Systolic Volume MOD 2C 23.4 cm??? LV Ejection Fraction MOD 2C 33.7 % LV Cardiac Index MOD 2C 559.0 cm???/min???m??? LV Diastolic Length 2C 6.1 cm LV Systolic Length 2C 6.0 cm LA Volume 28.4 cm??? 18 - 58 / 22 - 52 cm??? LA Volume Index 14.5 cm???/m??? 16 - 28 cm???/m??? DOPPLER AV Peak Velocity 132.7 cm/s AV Peak Gradient 7.0 mmHg MV Peak Velocity 85.6 cm/s MV Peak Gradient 2.9 mmHg MV Mean Velocity 47.5 cm/s MV Mean Gradient 1.0 mmHg MV Velocity Time Integral 24.3 cm Mitral E Point Velocity 62.1 cm/s Mitral A Point Velocity 65.9 cm/s Mitral E to A Ratio 0.9 MV Deceleration Time 130.5 ms PV Peak Velocity 107.7 cm/s PV Peak Gradient 4.6 mmHg FINDINGS Left Ventricle Normal LV size and wall thickness. Left ventricular ejection fraction is estimated at 55-60 %.Normal left ventricular systolic function with no obvious regional wall motion abnormalities. Right Ventricle Normal right ventricular size. Right Atrium Normal right atrial size. Left Atrium Normal left atrial size. Mitral Valve Structurally normal mitral valve. No mitral stenosis. No mitral regurgitation. Aortic Valve Trileaflet aortic valve. No aortic valve stenosis or regurgitation. Tricuspid Valve Structurally normal tricuspid valve. Trace TR. Pulmonic Valve Pulmonic valve not well visualized. No pulmonic regurgitation. Pericardium No pericardial effusion. Aorta Normal size aortic root. CONCLUSIONS 1. Normal left ventricular size and systolic function 2. Limited Doppler study with trace tricuspid regurgitation Previewed by: Dr. Stuart Avalos MD (Electronically Signed) Final Date: 06 July 2023 18:06
[2023-07-06] MEDS: SYMBICORT 160-4.5 MCG INHALER INHALATION SCH (21:03)
[2023-07-06] MEDS: DULoxetine HCL 30 MG CAPSULE.DR PO SCH (21:35)
[2023-07-06] MEDS: methylPREDNISolone SOD SUCCI 40 MG/ML 1 ML VIAL IV SCH (21:35)
[2023-07-07] MEDS: ACETAMINOPHEN TAB 325 MG TAB PO PRN (02:05)
[2023-07-07] MEDS: TAMSULOSIN 0.4 MG CAP.ER.24H PO SCH (05:36)
[2023-07-07] MEDS: DULoxetine HCL 60 MG CAPSULE.DR PO SCH (10:11)
[2023-07-07] MEDS: ASPIRIN 325 MG TAB PO SCH (10:11)
--- NOTE | 2023-07-07 11:06 | XR ---
EXAMINATION TYPE: XR chest 1V portable DATE OF EXAM: 07/07/2023 COMPARISON: 05/24/2023 HISTORY: Right lower lobe opacity TECHNIQUE: Single frontal view of the chest is obtained. FINDINGS: There is no focal air space opacity, pleural effusion, or pneumothorax seen. The cardiac silhouette size is within normal limits. The osseous structures are intact. IMPRESSION: No acute process.
[2023-07-07 11:40] LABS: Basophils # (A) 0.03 X 10*3/uL (0.00-0.10); Basophils % (A) 0.7 %; Eosinophils # (A) 0 X 10*3/uL (0.04-0.35); Eosinophils % (A) 0 %; HCT 39.3 % (39.6-50.0); HGB 11.9 g/dL (13.0-17.0); Lymphocytes # (A) 0.74 X 10*3/uL (0.90-5.00); Lymphocytes % (A) 16.1 %; MCH 28.5 pg (27.0-32.0); MCHC 30.3 g/dL (32.0-37.0); Mean Platelet Volume 11.2 FL (9.5-12.2); Monocytes # (A) 0.12 X 10*3/uL (0.20-1.00); Monocytes % (A) 2.6 %; NRBC Per 100 WBC 0 X 10*3/uL (0.00-0.01); Neutrophils # (A) 3.69 X 10*3/uL (1.80-7.70); Neutrophils % (A) 80.4 %; Platelet Count 218 X 10*3/uL (140-440); RBC 4.18 X 10*6/uL (4.40-5.60); RDW 13.1 % (11.5-14.5); WBC 4.59 X 10*3/uL (4.50-10.00)
[2023-07-07 11:55] LABS: ALT 11 U/L (10-49); AST 13 U/L (14-35); Albumin 3.9 g/dL (3.8-4.9); Albumin/Globulin Ratio 2.29 Ratio (1.60-3.17); Alkaline Phosphatase 96 U/L (41-126); BUN/Creat Ratio 10.45 Ratio (12.00-20.00); Blood Urea Nitrogen 11.5 mg/dL (9.0-27.0); Calcium 9.3 mg/dL (8.7-10.3); Carbon Dioxide 25.7 mmol/L (21.6-31.8); Chloride 107 mmol/L (96-109); Chol/HDL Ratio 2.62 Ratio; Globulin 1.7 g/dL (1.6-3.3); Glucose 171 mg/dL (70-110); LDL Cholesterol,Calculated 97.9 mg/dL (0.0-131.0); Sodium 144 mmol/L (135-145); Total Bilirubin 0.3 mg/dL (0.3-1.2); Total Protein 5.6 g/dL (6.2-8.2); VLDL Calculation 11.04 mg/dL (5.00-40.00)
--- NOTE | 2023-07-07 12:28 | P.CNPUL ---
History of Present Illness Consult date: 07/07/23 Reason for consult: dyspnea, COPD History of present illness: This is a 65-year-old male patient presenting to the hospital because of worsening shortness of breath. The patient is known to me. I took care of him during a recent hospitalization back in April 2023 and at that time the patient was hospitalized for COPD exacerbation and the patient was excessively smoking and drinking and he required intubation mechanical ventilation regarding his COPD exacerbation. I was able to extubate the patient and ultimately the patient was discharged home. He states that he has not smoked since his discharge from the hospital. He has been maintained on oxygen 3 to 4-minute nasal cannula. He came into the emergency department at [facility] because of worsening shortness of breath. As such, he was transferred to us for further treatment. Chest x-ray shows no acute cardiopulmonary abnormalities. The patient's viral panel has been negative. The patient's rest of the blood work shows a WBC count of 4.7 hemoglobin 11.9 and platelet count of 218. Electrolytes are normal, BUN is at 9 with a creatinine of 0.3 and LFTs are normal. The patient remains on oxygen 3 to 5-minute nasal cannula. This was further weaned down to 2 L as the patient's pulse ox remained above 90%. No altered mentation. No pleurisy or hemoptysis. He has been utilizing DuoNeb updrafts on an outpatient basis in addition to oxygen and Symbicort is his maintenance. No swelling lower extremities. No other new complaints otherwise for now. Review of Systems Constitutional: Reports as per HPI, Reports daytime sleepiness, Reports fatigue, Reports poor appetite, Reports weight loss Eyes: denies as per HPI, denies blurred vision, denies bulging eye, denies decreased vision, denies diplopia, denies discharge, denies dry eye, denies irritation, denies itching, denies pain, denies photophobia, denies loss of peripheral vision, denies loss of vision, denies tunnel vision/blind spots Ears: deny: decreased hearing, ear discharge, earache, tinnitus Ears, nose, mouth and throat: Reports as per HPI Breasts: absent: as per HPI, gynecomastia Cardiovascular: Reports decreased exercise tolerance, Reports dyspnea on exertion Respiratory: Reports congestion, Reports cough, Reports dyspnea, Reports home oxygen, Reports wheezing Gastrointestinal: Reports as per HPI Genitourinary: Reports as per HPI Musculoskeletal: Reports as per HPI Musculoskeletal: absent: ankle pain, ankle stiffness, ankle swelling Integumentary: Reports as per HPI Neurological: Reports as per HPI Psychiatric: Reports as per HPI Endocrine: Reports as per HPI, Reports fatigue Hematologic/Lymphatic: Reports as per HPI Allergic/Immunologic: Reports as per HPI Past Medical History Past Medical History: COPD Additional Past Medical History / Comment(s): back pain History of Any Multi-Drug Resistant Organisms: None Reported Past Surgical History: Back Surgery, Cardiac Ablation Additional Past Surgical History / Comment(s): neck fusion,rt eye surgery, rt hand surgery, cateracts Past Anesthesia/Blood Transfusion Reactions: No Reported Reaction Past Psychological History: Depression Smoking Status: Former smoker Past Alcohol Use History: None Reported Past Drug Use History: Marijuana - Past Family History Mother History Unknown: Yes Family Medical History: Myocardial Infarction ([place]) Additional Family Medical History / Comment(s): from [place] Medications and Allergies Home Medications Medication Instructions Recorded Confirmed Type DULoxetine HCL [Cymbalta] 60 mg PO DAILY 04/15/22 07/06/23 History Baclofen [Lioresal] 20 mg PO TID PRN 01/13/23 07/06/23 History Budesonide-Formot 160-4.5 Mcg 2 puff INHALATION RT-BID 03/12/23 07/06/23 History [Symbicort 160-4.5 Mcg Inhaler] Ipratropium-Albuterol Nebulize 3 ml INHALATION RT-QID #100 each 03/15/23 07/06/23 Rx [Duoneb 0.5 mg-3 mg/3 ml Soln] Albuterol Sulfate [Ventolin HFA] 2 puff INHALATION RT-QID PRN 05/10/23 07/06/23 History DULoxetine HCL [Cymbalta] 30 mg PO HS 05/10/23 07/06/23 History HYDROcodone/APAP 7.5-325MG [[place] 1 tab PO BID PRN 05/10/23 07/06/23 History 7.5-325] Ipratropium [place] 0.06%Nasal 2 spr EA NOSTRIL TID 05/10/23 07/06/23 History [Atrovent Nasal 0.06%] Meloxicam [Mobic] 15 mg PO DAILY 05/10/23 07/06/23 History Tamsulosin [Flomax] 0.4 mg PO DAILY 05/10/23 07/06/23 History Allergies Allergy/AdvReac Type Severity Reaction Status Date / Time potassium chloride Allergy Swelling Verified 07/06/23 14:19 [From Klor-Con] sacubitril [From Entresto] Allergy Unknown Verified 07/06/23 14:19 trazodone Allergy Rash/Hives Verified 07/06/23 14:19 valsartan [From Entresto] Allergy Unknown Verified 07/06/23 14:19 Physical Exam Vitals: Vital Signs Temp Pulse Pulse Resp BP BP Pulse Ox 07/07/23 08:10 84 07/07/23 08:00 82 100 07/07/23 07:00 97.8 F 82 17 156/69 100 07/07/23 01:18 98.2 F 89 18 163/91 100 07/06/23 21:15 96 07/06/23 21:03 94 07/06/23 19:29 97.9 F 84 16 115/78 100 07/06/23 18:08 98.3 F 91 16 152/98 99 07/06/23 17:11 72 18 134/89 96 07/06/23 15:27 98 18 160/105 96 07/06/23 13:38 98.2 F 95 18 135/91 99 Intake and Output 07/06/23 07/07/23 07/07/23 22:59 06:59 14:59 Output Total 700 Balance -700 Output: Urine 700 Other: # Voids 1 Weight 77.111 kg Calm and comfortable and the patient's breathing is slightly labored. He is not using accessory muscles of breathing and currently is on 2 L of O2 nasal cannula HEAD: Normocephalic. EYES: Normal reaction of pupils, equal size. NOSE: Clear with pink turbinates. THROAT: No erythema or exudates. NECK: No masses, no JVD. CHEST: No chest wall deformity. LUNGS: Equal air entry with no crackles, wheeze, rhonchi or dullness. CVS: S1 and S2 normal with no audible murmur, regular rhythm. ABDOMEN: No hepatosplenomegaly, normal bowel sounds, no guarding or rigidity. SPINE: No scoliosis or deformity SKIN: No rashes CENTRAL NERVOUS SYSTEM: Sedated, paralyzed, tone is normal in all 4 extremities. EXTREMITIES: There is no peripheral edema. No clubbing, no cyanosis. Peripheral pulses are intact. Results - Laboratory Findings CBC and BMP: 07/07/23 06:14 07/07/23 06:14 - Diagnostic Findings Chest x-ray: image reviewed Assessment and Plan Plan: Acute exacerbation of chronic COPD Recent history of COPD exacerbation requiring intubation and mechanical ventilatory support on 05/19/2023. The patient was extubated on 05/23/2023 pseudomonal growth in the sputum rule out pseudomonal tracheal bronchitis/pneumonia. 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 The serum IgE and serum complement fixation IgG antibodies for Aspergillus has been negative and the patient during his last hospitalization was treated with IV Zosyn and he completed the course Chronic and ongoing tobacco dependence of nearly 50 years History of alcoholism Marijuana use History of depression Plan Keep the patient on oxygen 2 L/min nasal cannula Recheck sputum Gram stain and culture And an antibiotic agent for gram-negative bacteria should there be any recurrent or persistent growth of gram-negative bacteria including Pseudomonas Agree with Zithromax for now Continue Symbicort Continue IV Solu-Medrol Resume home medications Chest x-ray was negative Viral panel was negative Will continue to follow
--- NOTE | 2023-07-07 12:30 | P.PN ---
Subjective Progress Note Date: 07/07/23 patient 63-year-old gentleman with past medical history significant for COPD, chronic hypoxemic respiratory failure who was transferred from [facility] for elevated troponin. Patient initially presented to [facility] for altered mental status that started overnight, according to patient's patient has been acting of since last night. Patient has history of COPD and was supposed to be on oxygen but has not been very compliant with it. There was no complaint of any slurred speech or weakness of any extremity. Patient did complain of chest pain central location and shortness of breath. There was no complaint of fever or chills. Because of the symptoms, patient was brought to [facility] Initial labs done there showed WBC 7.4, hemoglobin 13.2, platelet count 248, BUN was 13, creatinine 1.64, sodium 140, potassium 3.7, chloride 101, X-ray chest was done showed left basilar atelectasis CT brain done showed no acute intracranial process. CTA chest and abdomen done showed no evidence of aortic aneurysm or dissection. Showed COPD. Showed right hilar and mediastinal borderline adenopathy. Patient was later transferred [facility] and was admitted to internal medicine service 07/07. Patient seen and examined. Currently on 2 L of oxygen. 2D echo done showed normal LVEF and systolic function, no wall motion abnormality seen. States breathing is improved. Denies any chest pain. REVIEW OF SYSTEMS: CONSTITUTIONAL: No fever, no malaise,. CARDIOVASCULAR: No chest pain, no palpitations, no syncope. PULMONARY: No shortness of breath, no cough, GASTROINTESTINAL: No diarrhea, no nausea, no vomiting, no abdominal pain. NEUROLOGICAL: No headaches, no weakness, PHYSICAL EXAMINATION: GENERAL: The patient is alert and oriented x3, not in any acute distress. Well developed, well nourished. HEENT: Pupils are round and equally reacting to light. EOMI. No scleral icterus. No conjunctival pallor. Normocephalic, atraumatic. No pharyngeal erythema. No thyromegaly. CARDIOVASCULAR: S1 and S2 present. No murmurs, rubs, or gallops. PULMONARY: Chest is clear to auscultation, no wheezing or crackles. ABDOMEN: Soft, nontender, nondistended, normoactive bowel sounds. No palpable organomegaly. MUSCULOSKELETAL: No joint swelling or deformity. EXTREMITIES: No cyanosis, clubbing, or pedal edema. NEUROLOGICAL: Gross neurological examination did not reveal any focal deficits. SKIN: No rashes. Assessment and plan Chest pain Chronic hypoxemic respiratory failure Acute COPD exacerbation Depression Urinary retention Monitor vital signs Monitor CBC Monitor CMP Continue telemetry monitoring Trend troponin 2D echo done showed normal LVEF and systolic function, no wall motion abnormality seen Continue breathing treatment Continue prednisone Continue azithromycin Consult cardiology Consult pulmonology Continue home meds Labs and medication were reviewed.. Continue same treatment. Continue with symptomatic treatment. Resume home medication. Monitor labs and vitals. DVT and GI prophylaxis. Further recommendations as per clinical course of the patient Dictation was produced using [employer] dictation software. please excuse any grammatical, word or spelling errors. Objective - Vital Signs Vital signs: Vital Signs Temp 97.8 F 07/07/23 07:00 Pulse 84 07/07/23 08:10 Resp 17 07/07/23 07:00 BP 156/69 07/07/23 07:00 Pulse Ox 100 07/07/23 08:00 FiO2 Intake & Output 07/06/23 07/07/23 07/07/23 18:59 06:59 18:59 Output Total 700 Balance -700 Weight 77.111 kg Output: Urine 700 Other: # Voids 1 - Labs CBC & Chem 7: 07/07/23 06:14 07/07/23 06:14
--- NOTE | 2023-07-07 17:17 | P.CRDCN ---
History of Present Illness Consult date: 07/07/23 History of present illness: HISTORY OF PRESENTING ILLNESS 65-year-old presented to the hospital with symptoms of worsening shortness of breath. In April 2023 patient was admitted to the hospital because of COPD exacerbation and pneumonia. At that time he was intubated. This time he presented to the hospital because of worsening shortness of breath and fatigue. He denies having any substernal chest pressure-like symptoms. Labs hemoglobin 11.9, creatinine 1.1, BP 156/69 Not on any cardiac medications at home . Echo on this admission showed normal LV systolic function with no significant regional wall motion abnormality REVIEW OF SYSTEMS 14 point review of system is negative except what is mentioned above in HPI. PHYSICAL EXAMINATION Vital signs reviewed. Head: Normocephalic. Eyes: Sclerae nonicteric. Neck: Brisk carotid upstroke, no jugular venous distention. Lungs: Clear to auscultation. Heart: Regular rate and rhythm, S1-S2, no S3, no murmur or rub. Abdomen: Soft nontender, positive bowel sounds. Extremities: No edema, intact distal pulses. Neuro: Alert, oritented, no focal deficits. Detailed neuro exam was not performed. ASSESSMENT Dyspnea on exertion due to acute COPD exacerbation Rule out of acute coronary syndrome Marijuana use and alcohol use Previous tobacco use not smoked in last 3 months as per the patient. Essential hypertension Elevated ASCVD risk PLAN Start losartan 25 mg, aspirin 81 mg, Lipitor 40 mg Recommend outpatient stress test Will follow-up with patient tomorrow, if normotensive, cleared from cardiology Tani Knight MD, FACC, RPVI Thank you for allowing [facility] to participate in this patient's care. Feel free to reach out in case of any followup questions. Past Medical History Past Medical History: COPD Additional Past Medical History / Comment(s): back pain History of Any Multi-Drug Resistant Organisms: None Reported Past Surgical History: Back Surgery, Cardiac Ablation Additional Past Surgical History / Comment(s): neck fusion,rt eye surgery, rt hand surgery, cateracts Past Anesthesia/Blood Transfusion Reactions: No Reported Reaction Past Psychological History: Depression Smoking Status: Former smoker Past Alcohol Use History: None Reported Past Drug Use History: Marijuana - Past Family History Mother History Unknown: Yes Family Medical History: Myocardial Infarction ([place]) Additional Family Medical History / Comment(s): from [place] Medications and Allergies Home Medications Medication Instructions Recorded Confirmed Type DULoxetine HCL [Cymbalta] 60 mg PO DAILY 04/15/22 07/06/23 History Baclofen [Lioresal] 20 mg PO TID PRN 01/13/23 07/06/23 History Budesonide-Formot 160-4.5 Mcg 2 puff INHALATION RT-BID 03/12/23 07/06/23 History [Symbicort 160-4.5 Mcg Inhaler] Ipratropium-Albuterol Nebulize 3 ml INHALATION RT-QID #100 each 03/15/23 07/06/23 Rx [Duoneb 0.5 mg-3 mg/3 ml Soln] Albuterol Sulfate [Ventolin HFA] 2 puff INHALATION RT-QID PRN 05/10/23 07/06/23 History DULoxetine HCL [Cymbalta] 30 mg PO HS 05/10/23 07/06/23 History HYDROcodone/APAP 7.5-325MG [[place] 1 tab PO BID PRN 05/10/23 07/06/23 History 7.5-325] Ipratropium [place] 0.06%Nasal 2 spr EA NOSTRIL TID 05/10/23 07/06/23 History [Atrovent Nasal 0.06%] Meloxicam [Mobic] 15 mg PO DAILY 05/10/23 07/06/23 History Tamsulosin [Flomax] 0.4 mg PO DAILY 05/10/23 07/06/23 History Allergies Allergy/AdvReac Type Severity Reaction Status Date / Time potassium chloride Allergy Swelling Verified 07/06/23 14:19 [From Klor-Con] sacubitril [From Entresto] Allergy Unknown Verified 07/06/23 14:19 trazodone Allergy Rash/Hives Verified 07/06/23 14:19 valsartan [From Entresto] Allergy Unknown Verified 07/06/23 14:19 Physical Exam Vitals: Vital Signs Temp Pulse Pulse Resp BP Pulse Ox 07/07/23 15:26 92 07/07/23 15:16 100 07/07/23 14:50 98.6 F 111 H 17 177/60 97 07/07/23 11:30 80 07/07/23 11:21 80 07/07/23 08:10 84 07/07/23 08:00 82 100 07/07/23 07:00 97.8 F 82 17 156/69 100 07/07/23 01:18 98.2 F 89 18 163/91 100 07/06/23 21:15 96 07/06/23 21:03 94 07/06/23 19:29 97.9 F 84 16 115/78 100 07/06/23 18:08 98.3 F 91 16 152/98 99 Intake and Output 07/07/23 07/07/23 07/07/23 06:59 14:59 22:59 Output Total 700 Balance -700 Output: Urine 700 Other: Voiding Method Toilet Results 07/07/23 06:14 07/07/23 06:14 Cardiac Enzymes 07/06/23 07/06/23 07/07/23 Range/Units 16:51 19:45 06:14 AST 13 L (14-35) U/L Troponin I <0.012 <0.012 (0.000-0.034) ng/mL Lipids 07/07/23 Range/Units 06:14 Triglycerides 55.20 (0.00-149.00) mg/dL Cholesterol 176.00 (0.00-200.00) mg/dL HDL Cholesterol 67.10 H (40.00-60.00) mg/dL Cholesterol/HDL Ratio 2.62 Ratio CBC 07/07/23 Range/Units 06:14 WBC 4.59 (4.50-10.00) X 10*3/uL RBC 4.18 L (4.40-5.60) X 10*6/uL Hgb 11.9 L (13.0-17.0) g/dL Hct 39.3 L (39.6-50.0) % Plt Count 218 (140-440) X 10*3/uL Comprehensive Metabolic Panel 07/07/23 Range/Units 06:14 Sodium 144 (135-145) mmol/L Potassium 5.0 (3.5-5.5) mmol/L Chloride 107 (96-109) mmol/L Carbon Dioxide 25.7 (21.6-31.8) mmol/L BUN 11.5 (9.0-27.0) mg/dL Creatinine 1.1 (0.6-1.5) mg/dL Glucose 171 H (70-110) mg/dL Calcium 9.3 (8.7-10.3) mg/dL AST 13 L (14-35) U/L ALT 11 (10-49) U/L Alkaline Phosphatase 96 (41-126) U/L Total Protein 5.6 L (6.2-8.2) g/dL Albumin 3.9 (3.8-4.9) g/dL Current Medications Generic Name Dose Route Start Last Admin Trade Name Freq PRN Reason Stop Dose Admin Acetaminophen 650 mg 07/06/23 15:23 07/07/23 02:05 Acetaminophen Tab 325 Mg Tab PO 650 mg Q6HR PRN Administration Mild Pain or Fever > 100.5 Hydrocodone Bitart/Acetaminophen 1 each 07/06/23 15:06 07/07/23 17:06 Hydrocodone/Apap 7.5-325mg 1 Each Tab PO 1 each BID PRN Administration Pain Albuterol Sulfate 2 puff 07/06/23 15:06 Albuterol Hfa Inhaler INHALATION RT-QID PRN Shortness Of Breath Albuterol/Ipratropium 3 ml 07/06/23 16:00 07/07/23 15:14 Ipratropium-Albuterol 3 Ml Neb INHALATION 3 ml RT-QID RAGHU Administration Aspirin 325 mg 07/07/23 09:00 07/07/23 10:11 Aspirin 325 Mg Tab PO 325 mg DAILY RAGHU Administration Baclofen 20 mg 07/06/23 15:06 07/07/23 17:07 Baclofen 10 Mg Tab PO 20 mg TID PRN Administration Muscle Spasm Budesonide/Formoterol Fumarate 2 puff 07/06/23 20:00 07/07/23 08:01 Symbicort 160-4.5 Mcg Inhaler INHALATION 2 puff RT-BID RAGHU Administration Duloxetine HCl 30 mg 07/06/23 21:00 07/06/23 21:35 Duloxetine Hcl 30 Mg Capsule. PO 30 mg HS RAGHU Administration Duloxetine HCl 60 mg 07/07/23 09:00 07/07/23 10:11 Duloxetine Hcl 60 Mg Capsule. PO 60 mg DAILY RAGHU Administration Azithromycin 500 mg/ Sodium 250 mls @ 250 mls/hr 07/06/23 16:00 07/07/23 17:07 Chloride IVPB 07/08/23 16:59 250 mls/hr DAILY@1600 RAGHU Administration Protocol Melatonin 3 mg 02/09/24 15:23 Melatonin 3 Mg Tablet PO HS PRN Insomnia Methylprednisolone Sodium Succinate 40 mg 07/06/23 21:00 07/07/23 10:11 Methylprednisolone Sod Succi 40 Mg/Ml 1 Ml Vial IV 40 mg Q12HR RAGHU Administration Naloxone HCl 0.2 mg 07/06/23 15:23 Naloxone 0.4 Mg/Ml 1 Ml Vial IV Q2M PRN Opioid Reversal Nitroglycerin 1 inch 07/06/23 18:00 07/07/23 12:18 Nitroglycerin Oint 1 Inch/Gm Packet TOPICAL Not Given Q6HR [facility] Nitroglycerin 0.4 mg 07/06/23 14:37 Nitroglycerin Sl Tabs 0.4 Mg Tab SUBLINGUAL Q5M PRN Chest Pain Ondansetron HCl 4 mg 07/06/23 15:23 Ondansetron 4 Mg/2 Ml Vial IVP Q8HR PRN Nausea And Vomiting Tamsulosin HCl 0.4 mg 07/07/23 09:00 07/07/23 05:36 Tamsulosin 0.4 Mg Cap.Er.24h PO 0.4 mg DAILY RAGHU Administration Intake and Output 07/07/23 07/07/23 07/07/23 06:59 14:59 22:59 Output Total 700 Balance -700 Output: Urine 700 Other: Voiding Method Toilet 07/07/23 06:14 07/07/23 06:14
[2023-07-07] MEDS: LOSARTAN 25 MG TAB PO SCH (18:07)
[2023-07-07] MEDS: ATORVASTATIN 40 MG TAB PO SCH (19:51)
[2023-07-07 20:16] VITALS: RESP 16
[2023-07-08 07:57] VITALS: BP 144/96; TEMP 98.6
[2023-07-08] MEDS: ASPIRIN 81 MG PO SCH (08:38)
[2023-07-08 09:22] VITALS: PULSE 96
--- NOTE | 2023-07-08 11:17 | P.DS ---
Providers Date of admission: 07/06/23 14:37 Expected date of discharge: 07/08/23 Attending physician: Francisco Javier Lewis MD Consults: 07/06/23 14:37 Consult Physician Urgent Consulting Provider: [facility] Consult Reason/Comments: Elevated troponin Do you want consulting provider notified?: Yes 07/06/23 15:07 Consult Physician Routine Consulting Provider: Cathy Christian Consult Reason/Comments: COPD exacerbation Do you want consulting provider notified?: Yes Primary care physician: Joseph Granger MD Hospital Course: Discharge diagnoses; Chest pain, acute coronary syndrome ruled out Chronic hypoxemic respiratory failure Acute COPD exacerbation Depression Urinary retention Hospital course; patient 63-year-old gentleman with past medical history significant for COPD, chronic hypoxemic respiratory failure who was transferred from [facility] for elevated troponin. Patient initially presented to [facility] for altered mental status that started overnight, according to patient's patient has been acting of since last night. Patient has history of COPD and was supposed to be on oxygen but has not been very compliant with it. There was no complaint of any slurred speech or weakness of any extremity. Patient did complain of chest pain central location and shortness of breath. There was no complaint of fever or chills. Because of the symptoms, patient was brought to [facility] Initial labs done there showed WBC 7.4, hemoglobin 13.2, platelet count 248, BUN was 13, creatinine 1.64, sodium 140, potassium 3.7, chloride 101, X-ray chest was done showed left basilar atelectasis CT brain done showed no acute intracranial process. CTA chest and abdomen done showed no evidence of aortic aneurysm or dissection. Showed COPD. Showed right hilar and mediastinal borderline adenopathy. [facility] and was admitted to internal medicine service 07/07. Patient seen and examined. Currently on 2 L of oxygen. 2D echo done showed normal LVEF and systolic function, no wall motion abnormality seen. States breathing is improved. Denies any chest pain. 07/08. Patient seen and examined. Patient seen by cardiology, they recommend starting patient on aspirin, losartan, Lipitor, recommend outpatient follow-up. Discharged on tapering dose of prednisone PHYSICAL EXAMINATION: GENERAL: The patient is alert and oriented x3, not in any acute distress. Well developed, well nourished. HEENT: Pupils are round and equally reacting to light. EOMI. No scleral icterus. No conjunctival pallor. Normocephalic, atraumatic. No pharyngeal erythema. No thyromegaly. CARDIOVASCULAR: S1 and S2 present. No murmurs, rubs, or gallops. PULMONARY: Chest is clear to auscultation, no wheezing or crackles. ABDOMEN: Soft, nontender, nondistended, normoactive bowel sounds. No palpable organomegaly. MUSCULOSKELETAL: No joint swelling or deformity. EXTREMITIES: No cyanosis, clubbing, or pedal edema. NEUROLOGICAL: Gross neurological examination did not reveal any focal deficits. SKIN: No rashes. Dictation was produced using [employer] dictation software. please excuse any grammatical, word or spelling errors. Plan - Discharge Summary New Discharge Prescriptions: New Aspirin 81 mg PO DAILY #30 tab Losartan [Cozaar] 25 mg PO DAILY 30 Days #30 tab Atorvastatin [Lipitor] 40 mg PO HS 30 Days #30 tab Azithromycin [Zithromax Tri-Nasir (3 tabs)] 500 mg PO DAILY 1 Days #1 tab predniSONE 10 mg PO DAILY 8 Days #20 tab Continue DULoxetine HCL [Cymbalta] 60 mg PO DAILY Ipratropium-Albuterol Nebulize [Duoneb 0.5 mg-3 mg/3 ml Soln] 3 ml INHALATION RT-QID #100 each Albuterol Sulfate [Ventolin HFA] 2 puff INHALATION RT-QID PRN PRN Reason: Shortness Of Breath DULoxetine HCL [Cymbalta] 30 mg PO HS Baclofen [Lioresal] 20 mg PO TID PRN PRN Reason: Muscle Spasm Budesonide-Formot 160-4.5 Mcg [Symbicort 160-4.5 Mcg Inhaler] 2 puff INHALATION RT-BID Tamsulosin [Flomax] 0.4 mg PO DAILY HYDROcodone/APAP 7.5-325MG [Barre 7.5-325] 1 tab PO BID PRN PRN Reason: Pain Ipratropium [place] 0.06%Nasal [Atrovent Nasal 0.06%] 2 spr EA NOSTRIL TID Discontinued Meloxicam [Mobic] 15 mg PO DAILY Discharge Medication List DULoxetine HCL [Cymbalta] 60 mg PO DAILY 04/15/22 [History] Baclofen [Lioresal] 20 mg PO TID PRN 01/13/23 [History] Budesonide-Formot 160-4.5 Mcg [Symbicort 160-4.5 Mcg Inhaler] 2 puff INHALATION RT-BID 03/12/23 [History] Ipratropium-Albuterol Nebulize [Duoneb 0.5 mg-3 mg/3 ml Soln] 3 ml INHALATION RT-QID #100 each 03/15/23 [Rx] Albuterol Sulfate [Ventolin HFA] 2 puff INHALATION RT-QID PRN 05/10/23 [History] DULoxetine HCL [Cymbalta] 30 mg PO HS 05/10/23 [History] HYDROcodone/APAP 7.5-325MG [Barre 7.5-325] 1 tab PO BID PRN 05/10/23 [History] Ipratropium [place] 0.06%Nasal [Atrovent Nasal 0.06%] 2 spr EA NOSTRIL TID 05/10/23 [History] Tamsulosin [Flomax] 0.4 mg PO DAILY 05/10/23 [History] Aspirin 81 mg PO DAILY #30 tab 07/08/23 [Rx] Atorvastatin [Lipitor] 40 mg PO HS 30 Days #30 tab 07/08/23 [Rx] Azithromycin [Zithromax Tri-Nasir (3 tabs)] 500 mg PO DAILY 1 Days #1 tab 07/08/23 [Rx] Losartan [Cozaar] 25 mg PO DAILY 30 Days #30 tab 07/08/23 [Rx] predniSONE 10 mg PO DAILY 8 Days #20 tab 07/08/23 [Rx] Follow up Appointment(s)/Referral(s): Joseph Granger MD [Primary Care Provider] - 1-2 days Tani Knight MD [Medical Doctor] - 1 Week Discharge Disposition: HOME SELF-CARE
--- NOTE | 2023-07-08 14:22 | P.PN ---
Subjective Progress Note Date: 07/08/23 This is a 65-year-old male patient presenting to the hospital because of worsening shortness of breath. The patient is known to me. I took care of him during a recent hospitalization back in April 2023 and at that time the patient was hospitalized for COPD exacerbation and the patient was excessively smoking and drinking and he required intubation mechanical ventilation regarding his COPD exacerbation. I was able to extubate the patient and ultimately the patient was discharged home. He states that he has not smoked since his discharge from the hospital. He has been maintained on oxygen 3 to 4-minute nasal cannula. He came into the emergency department at [facility] because of worsening shortness of breath. As such, he was transferred to us for further treatment. Chest x-ray shows no acute cardiopulmonary abnormalities. The patient's viral panel has been negative. The patient's rest of the blood work shows a WBC count of 4.7 hemoglobin 11.9 and platelet count of 218. Electrolytes are normal, BUN is at 9 with a creatinine of 0.3 and LFTs are normal. The patient remains on oxygen 3 to 5-minute nasal cannula. This was further weaned down to 2 L as the patient's pulse ox remained above 90%. No altered mentation. No pleurisy or hemoptysis. He has been utilizing DuoNeb updrafts on an outpatient basis in addition to oxygen and Symbicort is his maintenance. No swelling lower extremities. No other new complaints otherwise for now. On 07/08/2023, the patient is doing well. No specific complaints. He feels that his overall respiratory status is back to his baseline and the patient can be discharged home. He will be going home on a prednisone burst taper and oxygen and DuoNeb updrafts [id number]. No chest pain. No altered mentation. No hemoptysis or pleurisy. The viral panel was checked at the time of admission and it was negative. Objective - Vital Signs Vital signs: Vital Signs Temp 98.6 F 07/08/23 07:00 Pulse 96 07/08/23 08:25 Resp 16 07/08/23 07:00 BP 144/96 07/08/23 07:00 Pulse Ox 97 07/08/23 07:00 FiO2 Intake & Output 07/07/23 07/08/23 07/08/23 18:59 06:59 18:59 Output Total 500 Balance -500 Output: Urine 500 Other: Voiding Method Toilet Toilet # Voids 2 1 - Exam Calm and comfortable and the patient's breathing is slightly labored. He is not using accessory muscles of breathing and currently is on 2 L of O2 nasal cannula HEAD: Normocephalic. EYES: Normal reaction of pupils, equal size. NOSE: Clear with pink turbinates. THROAT: No erythema or exudates. NECK: No masses, no JVD. CHEST: No chest wall deformity. LUNGS: Equal air entry with no crackles, wheeze, rhonchi or dullness. CVS: S1 and S2 normal with no audible murmur, regular rhythm. ABDOMEN: No hepatosplenomegaly, normal bowel sounds, no guarding or rigidity. SPINE: No scoliosis or deformity SKIN: No rashes CENTRAL NERVOUS SYSTEM: Sedated, paralyzed, tone is normal in all 4 extremities. EXTREMITIES: There is no peripheral edema. No clubbing, no cyanosis. Peripheral pulses are intact. - Labs CBC & Chem 7: 07/07/23 06:14 07/07/23 06:14 Labs: Abnormal Lab Results - Last 24 Hours (Table) 07/07/23 07/07/23 Range/Units 06:14 06:14 RBC 4.18 L (4.40-5.60) X 10*6/uL Hgb 11.9 L (13.0-17.0) g/dL Hct 39.3 L (39.6-50.0) % MCHC 30.3 L (32.0-37.0) g/dL Lymphocytes # 0.74 L (0.90-5.00) X 10*3/uL Monocytes # 0.12 L (0.20-1.00) X 10*3/uL Eosinophils # 0 L (0.04-0.35) X 10*3/uL BUN/Creatinine Ratio 10.45 L (12.00-20.00) Ratio Glucose 171 H (70-110) mg/dL AST 13 L (14-35) U/L Total Protein 5.6 L (6.2-8.2) g/dL HDL Cholesterol 67.10 H (40.00-60.00) mg/dL Assessment and Plan Plan: Acute exacerbation of chronic COPD Recent history of COPD exacerbation requiring intubation and mechanical ventilatory support on 05/19/2023. The patient was extubated on 05/23/2023 pseudomonal growth in the sputum rule out pseudomonal tracheal bronchitis/pneumonia. 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 The serum IgE and serum complement fixation IgG antibodies for Aspergillus has been negative and the patient during his last hospitalization was treated with IV Zosyn and he completed the course Chronic and ongoing tobacco dependence of nearly 50 years History of alcoholism Marijuana use History of depression Plan Clinically improved and the patient is going to be discharged home today Prednisone burst taper at time of discharge Symbicort as maintenance Continue Symbicort Chest x-ray was negative Viral panel was negative Will continue to follow to follow-up with patient outpatient basis.
== END 2023-07-08 12:40 | disposition home or self-care (01) ==
LOC: EC 13:37 → 6NMEDSUR 14:37
PROVIDERS: ADMIT Internal Medicine; ATTEND Internal Medicine
DX: R07.9 Chest pain, unspecified (principal); J44.1 Chronic obstructive pulmonary disease with (acute) exacerbation; R79.89 Other specified abnormal findings of blood chemistry; J96.11 Chronic respiratory failure with hypoxia; R33.9 Retention of urine, unspecified; F32.A Depression, unspecified; I10 Essential (primary) hypertension; F12.90 Cannabis use, unspecified, uncomplicated; F10.20 Alcohol dependence, uncomplicated; F17.200 Nicotine dependence, unspecified, uncomplicated; Z20.822 Contact with and (suspected) exposure to COVID-19; Z79.1 Long term (current) use of non-steroidal anti-inflammatories (NSAID); Z79.51 Long term (current) use of inhaled steroids; Z79.899 Other long term (current) drug therapy
CPT/HCPCS: 96376 ×2; 96366 ×2; 96375; 96365; 99285; 36415; 94640 ×6; 94760; 93005; 93306; 80061; 80053; 84484; 85025; 87636; 71045; G0378 ×3; J2920 ×3; J0456 ×2

== ENCOUNTER 2023-09-14 09:49 | Day surgery (SDC) | payer OTHER ==
[~2023-09-14 09:49] MED LIST: ALPRAZolam 0.5 MG TAB PO PRN; NITROGLYCERIN SL TABS 0.4 MG TAB SUBLINGUAL PRN; SODIUM CHLORIDE 0.9% 1,000 ML in EMPTY BAG 1 BAG IV SCH
[2023-09-14] MEDS: SODIUM CHLORIDE 0.9% 1,000 ML IV ONE (09:59)
[2023-09-14] MEDS: ALPRAZolam 0.25 MG TAB PO PRN (10:05)
[2023-09-14] MEDS: ASPIRIN 325 MG TAB PO STA (10:06)
[2023-09-14 10:43] VITALS: TEMP 98.6
[2023-09-14 10:51] LABS: Basophils # (A) 0.1 k/uL (0-0.2); Basophils % (A) 1 %; Eosinophils # (A) 0.1 k/uL (0-0.7); Eosinophils % (A) 1 %; HCT 38.2 % (39.0-53.0); HGB 12.1 gm/dL (13.0-17.5); Lymphocytes # (A) 1.7 k/uL (1.0-4.8); Lymphocytes % (A) 19 %; MCH 27.8 pg (25.0-35.0); MCHC 31.5 g/dL (31.0-37.0); MCV 88.2 fL (80.0-100.0); Mean Platelet Volume 8.3; Monocytes # (A) 0.5 k/uL (0-1.0); Monocytes % (A) 6 %; Neutrophils # (A) 6.3 k/uL (1.3-7.7); Neutrophils % (A) 73 %; Platelet Count 317 k/uL (150-450); RBC 4.34 m/uL (4.30-5.90); RDW 13.9 % (11.5-15.5); WBC 8.7 k/uL (3.8-10.6)
[2023-09-14 11:03] LABS: African American GFR (CKD) >90 (>60 ml/min/1.73 sqM); Anion Gap 9 mmol/L; Blood Urea Nitrogen 11 mg/dL (9-20); Calcium 9.3 mg/dL (8.4-10.2); Carbon Dioxide 26 mmol/L (22-30); Chloride 107 mmol/L (98-107); Glucose 88 mg/dL (74-99); Non-African American GFR(CKD) >90 (>60 ml/min/1.73 sqM); Potassium 3.4 mmol/L (3.5-5.1); Sodium 142 mmol/L (137-145)
[2023-09-14] MEDS ORDERED: VERAPAMIL 2.5 MG/ML 2 ML AMP ONE (11:17)
[2023-09-14] MEDS ORDERED: LIDOCAINE 1% INJ 10MG/ML (20 ML MDV) ONE (11:17)
[2023-09-14] MEDS ORDERED: fentaNYL (PF) 50 MCG/ML 2 ML AMP ONE (11:17)
[2023-09-14] MEDS ORDERED: HEPARIN SODIUM 1,000 UN/ML (10ML VL) ONE (11:18)
[2023-09-14] MEDS: fentaNYL (PF) 50 MCG/ML 2 ML AMP IVP ONE (11:41)
[2023-09-14] MEDS: MIDAZOLAM 2 MG/2 ML VIAL IVP ONE (11:41)
[2023-09-14] MEDS: LIDOCAINE 1% INJ 10MG/ML (20 ML MDV) SQ ONE (11:46)
[2023-09-14] MEDS: VERAPAMIL SYRINGE (5 MG/10 ML) INTRAARTER ONE (11:46)
[2023-09-14] MEDS: HEPARIN SODIUM 1,000 UN/ML (10ML VL) IVP ONE (11:52)
--- NOTE | 2023-09-14 11:59 | P.CARDCATH ---
Description of Procedure: PROCEDURES PERFORMED: Left heart catheterization, bilateral coronary angiography, ultrasound guided arterial access INDICATION: abnormal stress test CONSENT:I have discussed the risks, benefits and alternative therapies for the above-mentioned procedure and for both sedation/analgesia as well as necessary blood product administration, if indicated, as they pertain to this patient. The patient has indicated understanding and acceptance of the risks and procedures discussed. PROCEDURE: After the risks, benefits and alternatives of the above mentioned procedure explained in detail with the patient, informed consent was obtained. Patient was taken to the catheterization lab and prepped and draped in usual fashion. Ultrasound guidance was used to assess for arterial access. 1% lidocaine was used to anesthetize the right radial artery. A 6-Burmese sheath was placed in the right radial artery using modified Seldinger technique and ultrasound guidance. Left coronary angiography was performed with a 5-Burmese JL 3.5 catheter and right coronary angiography was performed with a 5-Burmese FR5 catheter in various views. A 5-Burmese FR5 catheter was inserted into the left ventricle and pressure measurements were obtained. The right radial sheath was removed and a TR band was placed with hemostasis achieved. The patient to lerated the procedure well. Patient was transported back to the post catheterization holding area in stable condition. Conscious Sedation: Patient was monitored under the direct supervision of myself for conscious sedation using Versed and fentanyl for a total duration of 15 minutes HEMODYNAMICS: Aorta: 114/82 LV: 112/5, LVEDP 12 SELECTIVE CORONARY ARTERIOGRAPHY: LEFT MAIN: The left main is a large caliber vessel which bifurcates into the LAD and circumflex. There is no significant stenosis. LEFT ANTERIOR DESCENDING CORONARY ARTERY: LAD is a large caliber vessel which wraps around to the apex. There R mild luminal irregularities of the mid LAD and otherwise normal. LEFT CIRCUMFLEX CORONARY ARTERY: Left circumflex is a moderate caliber vessel without significant stenosis. RIGHT CORONARY ARTERY: The right coronary artery is a large caliber vessel which gives off a PDA and PLV branch and is the dominant vessel. There is no significant stenosis. FINAL IMPRESSION: 1. Relatively normal coronary arteries as described above other than mild luminal irregularities of the mid LAD. 2. Normal left sided filling pressures PLAN: 1. Aggressive risk factor modification per most recent ACC/AHA guidelines. 2. Follow-up in the office in 1-2 weeks.
[2023-09-14] MEDS: IOPAMIDOL-370 100ML BTL INJ ONE (12:04)
[2023-09-14 15:04] VITALS: PULSE 78; RESP 16
[2023-09-14] MEDS: HYDROcodone/APAP 7.5-325MG 1 EACH TAB ONE (15:42)
[2023-09-14 16:26] VITALS: BP 115/62
== END 2023-09-14 16:01 | disposition home or self-care (01) ==
LOC: CATHCVL 09:49
PROVIDERS: ATTEND Internal Medicine
DX: I48.91 Unspecified atrial fibrillation (principal); J44.9 Chronic obstructive pulmonary disease, unspecified; Z99.81 Dependence on supplemental oxygen; Z79.899 Other long term (current) drug therapy
CPT/HCPCS: 93458; 76937; 80048; 85025; 99152; C1769 ×2; C1894; J2250; J2001; J3010; J1644; Q9967

== ENCOUNTER 2023-10-12 13:29 | Inpatient (IN) | payer OTHER ==
--- NOTE | 2023-10-12 15:22 | ED ---
SOB HPI - General Chief Complaint: Shortness of Breath Stated Complaint: SOB Time Seen by Provider: 10/12/23 15:16 Source: patient, family, RN notes reviewed, old records reviewed Mode of arrival: wheelchair Limitations: no limitations - History of Present Illness Initial Comments: This is a 63-year-old male to the ER for evaluation of severe shortness of breath anxiety shaking debility likely fever. Patient states he cannot sit still secondary to significant shortness of breath with cough and congestion. Patient has prior hospitalizations for same. Patient has remote history of significant alcoholism but denies any recent alcohol intoxication. Patient complains of severe shortness of breath with fever type symptoms MD Complaint: shortness of breath, cough, "asthma attack", anxiety -: days(s) Severity: severe Severity scale (1-10): 10 Consistency: constant Improves With: nothing Known History Of: COPD, asthma, congestive heart failure, recurrent pneumonia Context: recent URI, anxiety, recent illness Associated Symptoms: denies other symptoms - Related Data Home Medications Medication Instructions Recorded Confirmed DULoxetine HCL [Cymbalta] 60 mg PO DAILY 04/15/22 10/12/23 Baclofen [Lioresal] 20 mg PO TID 01/13/23 10/12/23 DULoxetine HCL [Cymbalta] 30 mg PO HS 05/10/23 10/12/23 HYDROcodone/APAP 7.5-325MG [[place] 1 tab PO BID PRN 05/10/23 10/12/23 7.5-325] Tamsulosin [Flomax] 0.4 mg PO DAILY 05/10/23 10/12/23 Metoprolol Succinate [Metoprolol 12.5 mg PO DAILY 09/12/23 10/12/23 Succinate ER] amLODIPine BESYLATE [Amlodipine 2.5 mg PO DAILY 09/12/23 10/12/23 Besylate] Albuterol Sulfate [Albuterol 2 puff PO RT-QID PRN 10/12/23 10/12/23 Sulfate Hfa] Ipratropium-Albuterol Nebulize 3 ml INHALATION RT-Q6H PRN 10/12/23 10/12/23 [Duoneb 0.5 mg-3 mg/3 ml Soln] Allergies Allergy/AdvReac Type Severity Reaction Status Date / Time sacubitril [From Entresto] Allergy hives Verified 10/12/23 17:09 trazodone Allergy Rash/Hives Verified 10/12/23 17:09 valsartan [From Entresto] Allergy hives Verified 10/12/23 17:09 Review of Systems ROS Statement: Those systems with pertinent positive or pertinent negative responses have been documented in the HPI. ROS Other: All systems not noted in ROS Statement are negative. Past Medical History Past Medical History: COPD, GERD/Reflux, Hypertension, Pneumonia Additional Past Medical History / Comment(s): back pain spinal cord pinched in neck. SOB with activity History of Any Multi-Drug Resistant Organisms: None Reported Past Surgical History: Back Surgery Additional Past Surgical History / Comment(s): neck fusion,rt eye surgery, rt hand surgery, cateracts Past Anesthesia/Blood Transfusion Reactions: No Reported Reaction Past Psychological History: Depression Smoking Status: Current every day smoker Past Alcohol Use History: None Reported Past Drug Use History: Marijuana - Past Family History Mother History Unknown: Yes Family Medical History: Myocardial Infarction ([place]) Additional Family Medical History / Comment(s): from [place] General Exam Limitations: no limitations, altered mental status General appearance: anxious, in distress Head exam: Present: atraumatic, normocephalic, normal inspection Eye exam: Present: normal appearance, PERRL, EOMI. Absent: scleral icterus, conjunctival injection, periorbital swelling ENT exam: Present: normal exam, mucous membranes dry Neck exam: Present: normal inspection. Absent: tenderness, meningismus, lymphadenopathy Respiratory exam: Present: respiratory distress, wheezes, accessory muscle use, decreased breath sounds, prolonged expiratory. Absent: rales, rhonchi, stridor Cardiovascular Exam: Present: normal rhythm, bradycardia, normal heart sounds. Absent: systolic murmur, diastolic murmur, rubs, gallop, clicks GI/Abdominal exam: Present: soft, normal bowel sounds. Absent: distended, tenderness, guarding, rebound, rigid Extremities exam: Present: normal inspection, full ROM, normal capillary refill. Absent: tenderness, pedal edema, joint swelling, calf tenderness Back exam: Present: normal inspection Neurological exam: Present: alert, oriented X3, CN II-XII intact Psychiatric exam: Present: normal affect, normal mood Skin exam: Present: warm, dry, intact, normal color. Absent: rash Course Vital Signs 10/12/23 10/12/23 10/12/23 13:38 15:20 15:35 Temperature 98.3 F Pulse Rate 112 H 112 H 112 H Pulse Rate [ Pulse Oximetery ] Respiratory 24 24 Rate Blood Pressure 115/56 101/74 Blood Pressure [Right Arm] O2 Sat by Pulse 97 100 Oximetry 10/12/23 10/12/23 10/12/23 15:45 18:03 18:17 Temperature Pulse Rate 113 H 116 H 116 H Pulse Rate [ Pulse Oximetery ] Respiratory Rate Blood Pressure Blood Pressure [Right Arm] O2 Sat by Pulse Oximetry 10/12/23 10/12/23 10/12/23 18:23 19:58 20:30 Temperature Pulse Rate 112 H 96 115 H Pulse Rate [ Pulse Oximetery ] Respiratory 24 20 Rate Blood Pressure 104/88 132/89 Blood Pressure [Right Arm] O2 Sat by Pulse 97 95 Oximetry 10/12/23 10/12/23 10/12/23 20:38 21:46 23:46 Temperature 98.7 F Pulse Rate 114 H 91 Pulse Rate [ Pulse Oximetery ] Respiratory 22 Rate Blood Pressure 141/97 Blood Pressure [Right Arm] O2 Sat by Pulse 99 Oximetry 10/13/23 10/13/23 10/13/23 00:30 00:45 01:00 Temperature Pulse Rate Pulse Rate [ Pulse Oximetery ] Respiratory Rate Blood Pressure 158/96 158/96 158/96 Blood Pressure [Right Arm] O2 Sat by Pulse Oximetry 10/13/23 10/13/23 10/13/23 01:07 01:15 01:30 Temperature Pulse Rate 85 Pulse Rate [ Pulse Oximetery ] Respiratory 22 Rate Blood Pressure 130/81 130/81 130/81 Blood Pressure [Right Arm] O2 Sat by Pulse 100 Oximetry 10/13/23 10/13/23 01:45 01:49 Temperature 97.6 F Pulse Rate Pulse Rate [ 83 Pulse Oximetery ] Respiratory 19 Rate Blood Pressure 130/81 Blood Pressure 132/85 [Right Arm] O2 Sat by Pulse 99 Oximetry - Reevaluation(s) Reevaluation #1: 10/12/23 23:02 Medical records reviewed Reevaluation #2: 10/12/23 23:02 Symptoms improving Reevaluation #3: 10/12/23 23:02 Patient informed of results and questions answered Reevaluation #4: Was pt. sent in by a medical professional or institution (DIVYA Zuñiga, COSMETICS COUNTER MANAGER, urgent care, hospital, or long-term...) When possible be specific @ -no Did you speak to anyone other than the patient for history (EMS, parent, family, police, friend...)? What history was obtained from this source @ -no Did you review nursing and triage notes (agree or disagree)? Why? @ -agree Are old charts reviewed (outside hosp., previous admission, EMS record, old EKG, old radiological studies, urgent care reports/EKG's, long-term records)? Report findings @ -yes Differential Diagnosis (chest pain, altered mental status, abdominal pain women, abdominal pain men, vaginal bleeding, weakness, fever, dyspnea, syncope, headache, dizziness, GI bleed, back pain, seizure, CVA, palpatations, mental h ealth, musculoskeletal)? @ -prior EKG interpreted by me (3pts min.). @ -yes X-rays interpreted by me (1pt min.). @ -yes negative for acute disease CT interpreted by me (1pt min.). @ -no U/S interpreted by me (1pt. min.). @ -no What testing was considered but not performed or refused? (CT, X-rays, U/S, labs)? Why? @ -none What meds were considered but not given or refused? Why? @ -none Did you discuss the management of the patient with other professionals (professionals i.e. DIVYA Zuñiga, COSMETICS COUNTER MANAGER, lab, RT, psych nurse, social work case manager, guest relations manager, teacher, chief development officer, case worker)? Give summary @ -no Was smoking cessation discussed for >3mins.? @ -no Was critical care preformed (if so, how long)? @ -yes31 Were there social determinants of health that impacted care today? How? (Homelessness, low income, unemployed, alcoholism, drug addiction, transportation, low edu. Level, literacy, decrease access to med. care, nursing home, rehab)? @ -none Was there de-escalation of care discussed even if they declined (Discuss DNR or withdrawal of care, Hospice)? DNR status @ -no What co-morbidities impacted this encounter? (DM, HTN, Smoking, COPD, CAD, Cancer, CVA, ARF, Chemo, Hep., AIDS, mental health diagnosis, sleep apnea, morbid obesity)? @ -none Was patient admitted / discharged? Hospital course, mention meds given and route, prescriptions, significant lab abnormalities, going to OR and other pertinent info. @ - 63 male to the ER for evaluation patient presents today for evaluation of severe shortness of breath found to have significant pneumonia here in the emergency department and patient will be admitted for IV antibiotics and supportive care Admitted Undiagnosed new problem with uncertain prognosis? @ -no Drug Therapy requiring intensive monitoring for toxicity (Heparin, Nitro, Insulin, Cardizem)? @ -no Were any procedures done? @ -no Diagnosis/symptom? @ -Respiratory failure pneumonia Acute, or Chronic, or Acute on Chronic? @ -Acute Uncomplicated (without systemic symptoms) or Complicated (systemic symptoms)? @ -Complicated Side effects of treatment? @ -no Exacerbation, Progression, or Severe Exacerbation? @ -exacerbation Poses a threat to life or bodily function? How? (Chest pain, [place], [place], pneumonia, PE, COPD, DKA, ARF, appy, cholecystitis, CVA, Diverticulitis, Homicidal, Suicidal, threat to staff... and all critical care pts) @ -yes significant respiratory distress and disease Reevaluation #5: Differential Dyspnea: Coronary syndrome, arrhythmia, tamponade, asthma, COPD, pulmonary embolism, pneumonia, pneumothorax, pulmonary effusion, anaphylaxis, diabetic ketoacidosis, flailed chest, pulmonary contusion, diaphragmatic rupture, anemia, neuromuscular, this is not meant to be an all-inclusive list. - Consultations Consultation #1: Spoke with [facility] who agrees to admit this patient Medical Decision Making - Medical Decision Making 63 male to the ER for evaluation patient presents today for evaluation of severe shortness of breath found to have significant pneumonia here in the emergency department and patient will be admitted for IV antibiotics and supportive care - Lab Data Result diagrams: 10/20/23 05:55 10/20/23 09:18 Lab Results 10/12/23 10/12/23 10/12/23 Range/Units 15:40 15:40 15:40 WBC 23.7 H (3.8-10.6) k/uL RBC 5.13 (4.30-5.90) m/uL Hgb 14.2 (13.0-17.5) gm/dL Hct 45.3 (39.0-53.0) % MCV 88.4 (80.0-100.0) fL MCH 27.7 (25.0-35.0) pg MCHC 31.3 (31.0-37.0) g/dL RDW 13.7 (11.5-15.5) % Plt Count 265 (150-450) k/uL MPV 8.6 Neutrophils % 91 % Lymphocytes % 3 % Monocytes % 5 % Eosinophils % 1 % Basophils % 0 % Neutrophils # 21.5 H (1.3-7.7) k/uL Lymphocytes # 0.8 L (1.0-4.8) k/uL Monocytes # 1.1 H (0-1.0) k/uL Eosinophils # 0.1 (0-0.7) k/uL Basophils # 0.0 (0-0.2) k/uL PT 10.2 (10.0-12.5) sec INR 0.9 (<1.2) APTT 24.9 (22.0-30.0) sec Sodium 141 (137-145) mmol/L Potassium 3.8 (3.5-5.1) mmol/L Chloride 104 (98-107) mmol/L Carbon Dioxide 22 (22-30) mmol/L Anion Gap 15 mmol/L BUN 16 (9-20) mg/dL Creatinine 0.94 (0.66-1.25) mg/dL Est GFR (CKD-EPI)AfAm >90 (>60 ml/min/1.73 sqM) Est GFR (CKD-EPI)NonAf 88 (>60 ml/min/1.73 sqM) Glucose 89 (74-99) mg/dL Lactic Ac Sepsis Rflx Plasma Lactic Acid Pierre (0.7-2.0) mmol/L Calcium 9.8 (8.4-10.2) mg/dL Magnesium 1.5 L (1.6-2.3) mg/dL Total Bilirubin 0.7 (0.2-1.3) mg/dL AST 35 (17-59) U/L ALT 17 (4-49) U/L Alkaline Phosphatase 122 (38-126) U/L Troponin I (0.000-0.034) ng/mL NT-Pro-B Natriuret Pep 262 pg/mL Total Protein 7.1 (6.3-8.2) g/dL Albumin 4.4 (3.5-5.0) g/dL Urine Legionella Ag (Negative) 10/12/23 10/12/23 10/12/23 Range/Units 15:40 15:40 16:33 WBC (3.8-10.6) k/uL RBC (4.30-5.90) m/uL Hgb (13.0-17.5) gm/dL Hct (39.0-53.0) % MCV (80.0-100.0) fL MCH (25.0-35.0) pg MCHC (31.0-37.0) g/dL RDW (11.5-15.5) % Plt Count (150-450) k/uL MPV Neutrophils % % Lymphocytes % % Monocytes % % Eosinophils % % Basophils % % Neutrophils # (1.3-7.7) k/uL Lymphocytes # (1.0-4.8) k/uL Monocytes # (0-1.0) k/uL Eosinophils # (0-0.7) k/uL Basophils # (0-0.2) k/uL PT (10.0-12.5) sec INR (<1.2) APTT (22.0-30.0) sec Sodium (137-145) mmol/L Potassium (3.5-5.1) mmol/L Chloride (98-107) mmol/L Carbon Dioxide (22-30) mmol/L Anion Gap mmol/L BUN (9-20) mg/dL Creatinine (0.66-1.25) mg/dL Est GFR (CKD-EPI)AfAm (>60 ml/min/1.73 sqM) Est GFR (CKD-EPI)NonAf (>60 ml/min/1.73 sqM) Glucose (74-99) mg/dL Lactic Ac Sepsis Rflx Y Plasma Lactic Acid Pierre 4.7 H* (0.7-2.0) mmol/L Calcium (8.4-10.2) mg/dL Magnesium (1.6-2.3) mg/dL Total Bilirubin (0.2-1.3) mg/dL AST (17-59) U/L ALT (4-49) U/L Alkaline Phosphatase (38-126) U/L Troponin I <0.012 (0.000-0.034) ng/mL NT-Pro-B Natriuret Pep pg/mL Total Protein (6.3-8.2) g/dL Albumin (3.5-5.0) g/dL Urine Legionella Ag (Negative) 10/12/23 Range/Units 17:49 WBC (3.8-10.6) k/uL RBC (4.30-5.90) m/uL Hgb (13.0-17.5) gm/dL Hct (39.0-53.0) % MCV (80.0-100.0) fL MCH (25.0-35.0) pg MCHC (31.0-37.0) g/dL RDW (11.5-15.5) % Plt Count (150-450) k/uL MPV Neutrophils % % Lymphocytes % % Monocytes % % Eosinophils % % Basophils % % Neutrophils # (1.3-7.7) k/uL Lymphocytes # (1.0-4.8) k/uL Monocytes # (0-1.0) k/uL Eosinophils # (0-0.7) k/uL Basophils # (0-0.2) k/uL PT (10.0-12.5) sec INR (<1.2) APTT (22.0-30.0) sec Sodium (137-145) mmol/L Potassium (3.5-5.1) mmol/L Chloride (98-107) mmol/L Carbon Dioxide (22-30) mmol/L Anion Gap mmol/L BUN (9-20) mg/dL Creatinine (0.66-1.25) mg/dL Est GFR (CKD-EPI)AfAm (>60 ml/min/1.73 sqM) Est GFR (CKD-EPI)NonAf (>60 ml/min/1.73 sqM) Glucose (74-99) mg/dL Lactic Ac Sepsis Rflx Plasma Lactic Acid Pierre (0.7-2.0) mmol/L Calcium (8.4-10.2) mg/dL Magnesium (1.6-2.3) mg/dL Total Bilirubin (0.2-1.3) mg/dL AST (17-59) U/L ALT (4-49) U/L Alkaline Phosphatase (38-126) U/L Troponin I (0.000-0.034) ng/mL NT-Pro-B Natriuret Pep pg/mL Total Protein (6.3-8.2) g/dL Albumin (3.5-5.0) g/dL Urine Legionella Ag Negative (Negative) - EKG Data -: EKG Interpreted by Me (EKG is A-fib with RVR 108 QRS 88 QTc 399) - Radiology Data Radiology results: report reviewed (X-ray is positive for significant pneumonia), image reviewed Critical Care Time Critical Care Time: Yes Total Critical Care Time: 31 Disposition Clinical Impression: Acute exacerbation of chronic obstructive pulmonary disease, Bilateral pneumonia, Hypoxia, Pneumonia, Lactic acidosis, Dehydration, Acute respiratory failure with hypoxia Disposition: ADMITTED IP TO THIS HOSP Condition: Serious Is patient prescribed a controlled substance at d/c from ED?: No Time of Disposition: 17:50
[2023-10-12] MEDS: IPRATROPIUM-ALBUTEROL 3 ML NEB INHALATION STA ×2 (15:35→18:02)
[2023-10-12 15:56] LABS: Basophils % (A) 0 %; Eosinophils # (A) 0.1 k/uL (0-0.7); Eosinophils % (A) 1 %; HCT 45.3 % (39.0-53.0); HGB 14.2 gm/dL (13.0-17.5); Lymphocytes # (A) 0.8 k/uL (1.0-4.8); Lymphocytes % (A) 3 %; MCH 27.7 pg (25.0-35.0); MCHC 31.3 g/dL (31.0-37.0); MCV 88.4 fL (80.0-100.0); Mean Platelet Volume 8.6; Monocytes # (A) 1.1 k/uL (0-1.0); Monocytes % (A) 5 %; Neutrophils # (A) 21.5 k/uL (1.3-7.7); Neutrophils % (A) 91 %; Platelet Count 265 k/uL (150-450); RBC 5.13 m/uL (4.30-5.90); RDW 13.7 % (11.5-15.5); WBC 23.7 k/uL (3.8-10.6)
--- NOTE | 2023-10-12 16:03 | XR ---
EXAMINATION TYPE: XR chest 1V portable DATE OF EXAM: 10/12/2023 HISTORY: Shortness of breath. COMPARISON: 07/07/2023 TECHNIQUE: Single view of the chest is submitted. FINDINGS: Demonstrated are scattered senescent parenchymal change. Perihilar infiltrates may reflect developing pneumonia. Correlate clinically and progress studies are recommended. The heart is stable. Hilar and mediastinal structures are within normal limits. Degenerative changes are seen of the dorsal spine. IMPRESSION: 1. Perihilar infiltrates may reflect developing pneumonia. Correlate clinically and progress studies are recommended.
[2023-10-12 16:14] LABS: INR 0.9 (<1.2); Partial Thromboplastin Time 24.9 sec (22.0-30.0); Prothrombin Time 10.2 sec (10.0-12.5)
[2023-10-12 16:20] LABS: ALT 17 U/L (4-49); AST 35 U/L (17-59); African American GFR (CKD) >90 (>60 ml/min/1.73 sqM); Albumin 4.4 g/dL (3.5-5.0); Alkaline Phosphatase 122 U/L (38-126); Anion Gap 15 mmol/L; Blood Urea Nitrogen 16 mg/dL (9-20); Calcium 9.8 mg/dL (8.4-10.2); Carbon Dioxide 22 mmol/L (22-30); Chloride 104 mmol/L (98-107); Glucose 89 mg/dL (74-99); Magnesium 1.5 mg/dL (1.6-2.3); Non-African American GFR(CKD) 88 (>60 ml/min/1.73 sqM); Potassium 3.8 mmol/L (3.5-5.1); Sodium 141 mmol/L (137-145); Total Bilirubin 0.7 mg/dL (0.2-1.3); Total Protein 7.1 g/dL (6.3-8.2)
[2023-10-12] MEDS: LORazepam 2 MG/ML INJ IV STA (16:23)
[2023-10-12] MEDS: HYDROmorphone 0.5 MG/0.5 ML SYRINGE IVP STA (16:23)
[2023-10-12 16:28] LABS: NT-Pro-B-Type Natriuretic Pept 262 pg/mL
[2023-10-12] MEDS ORDERED: PNEUMONIA PROTOCOL UTILIZED 1 EACH MISC PO PRN (17:49)
[2023-10-12] MEDS: SODIUM CHLORIDE 0.9% 2,000 ML IV STA (18:21)
[2023-10-12] MEDS: MAGNESIUM SULFATE-D5W PMX 1 GM in DEXTROSE/WATER 1 100ML.BAG IVPB SCH (18:22)
[2023-10-12] MEDS: MAGNESIUM OXIDE 400 MG TAB PO STA (18:22)
[2023-10-12] MEDS: methylPREDNISolone SOD SUCCI 125 MG/2 ML VIAL IV STA (18:22)
[2023-10-12] MEDS ORDERED: LORazepam 1 MG/0.5 ML VIAL IV PRN ×3 (19:47)
[2023-10-12] MEDS ORDERED: LORazepam 2 MG/ML INJ IV PRN ×3 (20:27→20:37)
[2023-10-12] MEDS: ALBUTEROL NEBULIZED 2.5 MG/3 ML INHALATION SCH (20:30)
[2023-10-12] MEDS: LORazepam 1 MG/0.5 ML VIAL IV STA (21:09)
[2023-10-12] MEDS ORDERED: ALBUTEROL HFA INHALER INHALATION PRN (21:43)
[2023-10-12] MEDS: SODIUM CHLORIDE 0.9% 1,000 ML IV STA (21:48)
[2023-10-12] MEDS: AZITHROMYCIN 500 MG in SODIUM CHLORIDE 0.9% 250 ML IVPB STA (21:51)
[2023-10-12] MEDS: THIAMINE 100 MG/ML 2 ML VIAL IM STA (22:22)
[2023-10-12] MEDS: DULoxetine HCL 30 MG CAPSULE.DR PO SCH (22:23)
[2023-10-12] MEDS: MAGNESIUM OXIDE 400 MG TAB PO SCH (22:23)
[2023-10-12] MEDS: METOPROLOL SUCCINATE (ER) 25 MG TAB.ER.24H PO SCH (22:24)
[2023-10-12] MEDS: HEPARIN SODIUM,PORCINE 5,000 UNIT/ML 1 ML VIAL SQ SCH (22:45)
[2023-10-12] MEDS: ACETAMINOPHEN IV (For NPO) 1,000 MG in EMPTY BAG 1 BAG IVPB STA (23:44)
[2023-10-13] MEDS: LORazepam 1 MG TAB PO PRN ×2 (00:56→22:51)
[2023-10-13 05:36] LABS: Basophils % (A) 0 %; Eosinophils # (A) 0.1 k/uL (0-0.7); Eosinophils % (A) 1 %; HCT 41.4 % (39.0-53.0); HGB 12.9 gm/dL (13.0-17.5); Lymphocytes # (A) 0.7 k/uL (1.0-4.8); Lymphocytes % (A) 3 %; MCHC 31.1 g/dL (31.0-37.0); MCV 90.1 fL (80.0-100.0); Mean Platelet Volume 9.1; Monocytes # (A) 0.4 k/uL (0-1.0); Monocytes % (A) 2 %; Neutrophils # (A) 22.6 k/uL (1.3-7.7); Neutrophils % (A) 95 %; Platelet Count 230 k/uL (150-450); WBC 23.8 k/uL (3.8-10.6)
[2023-10-13 05:53] LABS: African American GFR (CKD) >90 (>60 ml/min/1.73 sqM); Anion Gap 8 mmol/L; Blood Urea Nitrogen 20 mg/dL (9-20); Calcium 8.9 mg/dL (8.4-10.2); Carbon Dioxide 23 mmol/L (22-30); Chloride 110 mmol/L (98-107); Glucose 131 mg/dL (74-99); Magnesium 2.4 mg/dL (1.6-2.3); Non-African American GFR(CKD) 90 (>60 ml/min/1.73 sqM); Potassium 3.8 mmol/L (3.5-5.1); Sodium 141 mmol/L (137-145)
[2023-10-13] MEDS: PANTOPRAZOLE 40 MG TABLET PO SCH (06:36)
[2023-10-13] MEDS ORDERED: LORazepam 1 MG/0.5 ML VIAL IV PRN ×2 (08:33→08:34)
[2023-10-13] MEDS: AZITHROMYCIN 500 MG TAB PO SCH (09:49)
[2023-10-13] MEDS: THIAMINE 100 MG TAB PO SCH (09:49)
[2023-10-13] MEDS: DULoxetine HCL 30 MG CAPSULE.DR PO SCH (09:50)
[2023-10-13] MEDS: TAMSULOSIN 0.4 MG CAP.ER.24H PO SCH (09:50)
[2023-10-13 11:48] LABS: Glucose,Whole Blood 131 mg/dL (70-110)
--- NOTE | 2023-10-13 12:00 | XR ---
EXAM: XR chest 1V portable CLINICAL INDICATION:Male, 63 years old with history of pneumonia; [facility] COMPARISON: 10/12/2023 and 07/07/2023 TECHNIQUE: Chest single view. FINDINGS: Lines/tubes/devices: None. Cardiomediastinum: Heart size is indeterminate. CM margins obscured. Vasculature: Likely increased. Lungs/pleura: Moderate to severe diffuse bilateral alveolar and interstitial infiltrates, significantly progressed since yesterday's examination. No visible pleural effusion or pneumothorax. Bones/soft tissues: Bony thorax appears grossly unchanged as seen. Partially seen cervical spine hardware. Regional soft tissues appear unremarkable. IMPRESSION: Diffuse bilateral pulmonary infiltrates, likely considerations include edema and pneumonia.
[2023-10-13] MEDS: HYDROcodone/APAP 7.5-325MG 1 EACH TAB PO PRN (12:01)
--- NOTE | 2023-10-13 12:28 | P.CNPUL ---
History of Present Illness Consult date: 10/13/23 Requesting physician: Eva Saba Reason for consult: dyspnea, cough, COPD, hypoxemia Chief complaint: Shortness of breath. History of present illness: Pulmonary consult dated October 13, 2023. This is a 63-year-old male who was seen in the emergency department on October 11. He came into the emergency department, complaining of shortness of breath, anxiety, and shaking. The patient also complains of cough, and chest congestion. The patient does have a history of COPD. He is seen today in room 384. He is resting comfortably, on 3 L of oxygen. He is getting saline at 130 cc an hour. He was given azithromycin, and Rocephin. Procalcitonin level was ordered. The patient has a history of COPD, gastroesophageal reflux disease, hypertension, pneumonia, and previous back surgery. The patient does continue to smoke cigarettes on a daily basis. Current labs include a white count 23.8, hemoglobin 12.9, hematocrit 41.4, and a platelet count of 230,000. Sodium 141, potassium 3.8, chlorides 110, CO2 23, BUN 20, creatinine 0.92. Glucose is 131. Lactic acid is 1.8. Magnesium is 2.4. Calcium 8.9. Procalcitonin level is elevated at 2.51. Chest x-ray shows diffuse bilateral pulmonary infiltrates. N-terminal proBNP is in the normal range. Legionella antigen is negative. Review of Systems REVIEW OF SYSTEMS: CONSTITUTIONAL: [Negative.] NEUROLOGIC: [ Negative.] HEENT: [ Negative.] CARDIAC: [Negative.] PULMONARY: Shortness of breath, cough, chest congestion, and occasional phlegm production. GI: [Negative.] : [Negative.] RHEUMATOLOGIC: [ Negative.] IMMUNOLOGIC: [ Negative.] ENDOCRINE: [Negative. ] DERMATOLOGIC: [Negative.] Past Medical History Past Medical History: COPD, GERD/Reflux, Hypertension, Pneumonia Additional Past Medical History / Comment(s): back pain spinal cord pinched in neck. SOB with activity History of Any Multi-Drug Resistant Organisms: None Reported Past Surgical History: Back Surgery Additional Past Surgical History / Comment(s): neck fusion,rt eye surgery, rt hand surgery, cateracts Past Anesthesia/Blood Transfusion Reactions: No Reported Reaction Past Psychological History: Depression Smoking Status: Current every day smoker Past Alcohol Use History: None Reported Past Drug Use History: Marijuana - Past Family History Mother History Unknown: Yes Family Medical History: Myocardial Infarction ([place]) Additional Family Medical History / Comment(s): from [place] Medications and Allergies Home Medications Medication Instructions Recorded Confirmed Type DULoxetine HCL [Cymbalta] 60 mg PO DAILY 04/15/22 10/12/23 History Baclofen [Lioresal] 20 mg PO TID 01/13/23 10/12/23 History DULoxetine HCL [Cymbalta] 30 mg PO HS 05/10/23 10/12/23 History HYDROcodone/APAP 7.5-325MG [[place] 1 tab PO BID PRN 05/10/23 10/12/23 History 7.5-325] Tamsulosin [Flomax] 0.4 mg PO DAILY 05/10/23 10/12/23 History Metoprolol Succinate [Metoprolol 12.5 mg PO DAILY 09/12/23 10/12/23 History Succinate ER] amLODIPine BESYLATE [Amlodipine 2.5 mg PO DAILY 09/12/23 10/12/23 History Besylate] Albuterol Sulfate [Albuterol 2 puff PO RT-QID PRN 10/12/23 10/12/23 History Sulfate Hfa] Ipratropium-Albuterol Nebulize 3 ml INHALATION RT-Q6H PRN 10/12/23 10/12/23 History [Duoneb 0.5 mg-3 mg/3 ml Soln] Allergies Allergy/AdvReac Type Severity Reaction Status Date / Time sacubitril [From Entresto] Allergy hives Verified 10/12/23 17:09 trazodone Allergy Rash/Hives Verified 10/12/23 17:09 valsartan [From Entresto] Allergy hives Verified 10/12/23 17:09 Physical Exam Osteopathic Statement: *. No significant issues noted on an osteopathic structural exam other than those noted in the History and Physical/Consult. Vitals: Vital Signs Temp Pulse Pulse Resp BP BP Pulse Ox 10/13/23 09:15 82 10/13/23 09:04 84 84 L 10/13/23 08:00 98.3 F 83 20 122/79 92 L 10/13/23 04:37 90 20 136/91 97 10/13/23 01:49 97.6 F 83 19 132/85 99 10/13/23 01:07 85 22 130/81 100 10/12/23 23:46 98.7 F 10/12/23 21:46 91 22 141/97 99 10/12/23 20:38 114 H 10/12/23 20:30 115 H 10/12/23 19:58 96 20 132/89 95 10/12/23 18:23 112 H 24 104/88 97 10/12/23 18:17 116 H 10/12/23 18:03 116 H 10/12/23 15:45 113 H 10/12/23 15:35 112 H 10/12/23 15:20 112 H 24 101/74 100 10/12/23 13:38 98.3 F 112 H 24 115/56 97 Intake and Output 10/12/23 10/13/23 10/13/23 22:59 06:59 14:59 Intake Total 90 Output Total 100 Balance -100 90 Intake: Oral 90 Output: Urine 100 Other: Voiding Method Urinal Weight 63.503 kg No acute distress, oriented 3. No respiratory distress. Saturations are 92% on 3 L. No conversational dyspnea. HEENT examination is grossly unremarkable. Mucous membranes are moist. No oral lesions. Neck supple. Full range of motion. No adenopathy thyromegaly or neck vein distention. Cardiovascular examination reveals regular rhythm rate. S1-S2 normal. No S3 or S4. No discernible murmur noted. Heart sounds are distant. Heart rate 82 bpm. Lungs reveal bilateral scattered inspiratory and expiratory rhonchi. Breath sounds are equal. No crackles or wheezes. Saturations are in the low to mid 90s on 3 L. Abdomen soft bowel sounds are heard. No masses or tenderness. Extremities are intact. No cyanosis clubbing or edema. Skin is without rash or lesion. Neurologic examination is brief but nonfocal. Results - Laboratory Findings CBC and BMP: 10/13/23 05:06 10/13/23 05:06 PT/INR, D-dimer PT 10.2 sec (10.0-12.5) 10/12/23 15:40 INR 0.9 (<1.2) 10/12/23 15:40 Abnormal lab findings: Abnormal Labs 10/12/23 10/12/23 10/12/23 15:40 15:40 15:40 WBC 23.7 H Hgb Neutrophils # 21.5 H Lymphocytes # 0.8 L Monocytes # 1.1 H Chloride Glucose POC Glucose (mg/dL) Plasma Lactic Acid Pierre 4.7 H* Magnesium 1.5 L Procalcitonin 10/12/23 10/13/23 10/13/23 19:27 00:13 00:13 WBC Hgb Neutrophils # Lymphocytes # Monocytes # Chloride Glucose POC Glucose (mg/dL) Plasma Lactic Acid Pierre 3.6 H* 3.3 H* Magnesium Procalcitonin 2.51 H 10/13/23 10/13/23 10/13/23 05:06 05:06 05:06 WBC 23.8 H Hgb 12.9 L Neutrophils # 22.6 H Lymphocytes # 0.7 L Monocytes # Chloride 110 H Glucose 131 H POC Glucose (mg/dL) Plasma Lactic Acid Pierre 2.4 H* Magnesium 2.4 H Procalcitonin 10/13/23 11:47 WBC Hgb Neutrophils # Lymphocytes # Monocytes # Chloride Glucose POC Glucose (mg/dL) 131 H Plasma Lactic Acid Pierre Magnesium Procalcitonin - Diagnostic Findings Chest x-ray: image reviewed Assessment and Plan Assessment: Acute hypoxemic respiratory failure, secondary to COPD exacerbation, and complicated by bilateral pneumonia. History of ongoing tobacco use with nicotine addiction. History of gastroesophageal reflux disease. History of hypertension. History of pneumonia. History of depression. Plan: October 13, 2023. The patient is currently seen, in room 384. The patient is on 3 L of oxygen. The patient is receiving saline at 130 cc an hour. The patient was started on azithromycin and Rocephin. The patient's procalcitonin level is elevated. Labs, x-rays, and medications are reviewed. The patient continues on updrafts, with albuterol sulfate and ipratropium bromide. In addition, the patient will be given some Solu-Medrol, and also Symbicort. Additional recommendations and s uggestions are forthcoming. We will continue to follow closely. Prognosis is guarded. Time with Patient: Greater than 30
[2023-10-13] MEDS: methylPREDNISolone SOD SUCCI 40 MG/ML 1 ML VIAL IV SCH (17:36)
[2023-10-13] MEDS: LORazepam 0.5 MG TAB PO PRN (20:13)
[2023-10-13] MEDS: BACLOFEN 10 MG TAB PO PRN (21:48)
[2023-10-13] MEDS: SYMBICORT 160-4.5 MCG INHALER INHALATION SCH (22:41)
--- NOTE | 2023-10-13 22:59 | P.HPIM ---
History of Present Illness H&P Date: 10/13/23 Chief Complaint: Shortness of breath Patient is a 63-year-old male with a past medical history of COPD on home oxygen, hypertension, chronic back pain, history of cervical fusion surgery, depression currently everyday smoker and marijuana use. Patient presents to ER with complaints of worsening shortness of breath anxiety, chills and fever. Patient was tachycardic and tachypneic on admission. States that he has subjective fevers. Cough and congestion and unable to bring out any sputum. No complaints of chest pain. No nausea vomiting abdominal pain or diarrhea. No headache or dizziness or neck stiffness. Chest x-ray showed perihilar infiltrates in the deflector lobar pneumonia. Correlate clinically and appropriate studies are recommended. EKG showed atrial fibrillation with rapid ventricular response. Patient had a cardiac catheterization on 09/14/2023 showed relatively normal coronaries and normal left sided filling pressures. Laboratory test showed WBC 23.7 hemoglobin 14.2 and platelets 265 Sodium 141 potassium 3.8 chloride 104 bicarb is 22 BUN 16 and creatinine 0.94 and blood sugar 89 and lactic acid 4.7 and magnesium 1.5 [place] Elevated procalcitonin level 2.4. Troponin x 1 negative proBNP 262 Review of Systems Constitutional: Patient does have subjective fevers and chills at home. No generalized weakness or weight loss. Abdomen: Patient denied nausea vomiting and diarrhea and abdominal pain. Cardiovascular: Patient denies any chest pain. Positive for short of breath no palpitations. No leg swelling Respiratory: patient does complain of cough congestion and shortness of breath Neurologic: Patient denied any numbness or tingling headache. Musculoskeletal: Patient denies any complaints of joint swelling or deformity. Skin: Negative Psychiatric: Negative Endocrine: No heat or cold intolerance. No recent weight gain. Genitourinary: No dysuria or hematuria. All other 14 point ROS negative except the above Past Medical History Past Medical History: COPD, GERD/Reflux, Hypertension, Pneumonia Additional Past Medical History / Comment(s): back pain spinal cord pinched in neck. SOB with activity History of Any Multi-Drug Resistant Organisms: None Reported Past Surgical History: Back Surgery Additional Past Surgical History / Comment(s): neck fusion,rt eye surgery, rt hand surgery, cateracts Past Anesthesia/Blood Transfusion Reactions: No Reported Reaction Past Psychological History: Depression Smoking Status: Current every day smoker Past Alcohol Use History: None Reported Past Drug Use History: Marijuana - Past Family History Mother History Unknown: Yes Family Medical History: Myocardial Infarction ([place]) Additional Family Medical History / Comment(s): from [place] Medications and Allergies Home Medications Medication Instructions Recorded Confirmed Type DULoxetine HCL [Cymbalta] 60 mg PO DAILY 04/15/22 10/12/23 History Baclofen [Lioresal] 20 mg PO TID 01/13/23 10/12/23 History DULoxetine HCL [Cymbalta] 30 mg PO HS 05/10/23 10/12/23 History HYDROcodone/APAP 7.5-325MG [[place] 1 tab PO BID PRN 05/10/23 10/12/23 History 7.5-325] Tamsulosin [Flomax] 0.4 mg PO DAILY 05/10/23 10/12/23 History Metoprolol Succinate [Metoprolol 12.5 mg PO DAILY 09/12/23 10/12/23 History Succinate ER] amLODIPine BESYLATE [Amlodipine 2.5 mg PO DAILY 09/12/23 10/12/23 History Besylate] Albuterol Sulfate [Albuterol 2 puff PO RT-QID PRN 10/12/23 10/12/23 History Sulfate Hfa] Ipratropium-Albuterol Nebulize 3 ml INHALATION RT-Q6H PRN 10/12/23 10/12/23 History [Duoneb 0.5 mg-3 mg/3 ml Soln] Allergies Allergy/AdvReac Type Severity Reaction Status Date / Time sacubitril [From Entresto] Allergy hives Verified 10/12/23 17:09 trazodone Allergy Rash/Hives Verified 10/12/23 17:09 valsartan [From Entresto] Allergy hives Verified 10/12/23 17:09 Physical Exam Vitals: Vital Signs Temp Pulse Pulse Resp BP BP Pulse Ox 10/13/23 09:15 82 10/13/23 09:04 84 84 L 10/13/23 04:37 90 20 136/91 97 10/13/23 01:49 97.6 F 83 19 132/85 99 10/13/23 01:07 85 22 130/81 100 10/12/23 23:46 98.7 F 10/12/23 21:46 91 22 141/97 99 10/12/23 20:38 114 H 10/12/23 20:30 115 H 10/12/23 19:58 96 20 132/89 95 10/12/23 18:23 112 H 24 104/88 97 10/12/23 18:17 116 H 10/12/23 18:03 116 H 10/12/23 15:45 113 H 10/12/23 15:35 112 H 10/12/23 15:20 112 H 24 101/74 100 10/12/23 13:38 98.3 F 112 H 24 115/56 97 Intake and Output 10/12/23 10/13/23 10/13/23 22:59 06:59 14:59 Intake Total 90 Output Total 100 Balance -100 90 Intake: Oral 90 Output: Urine 100 Other: Voiding Method Urinal PHYSICAL EXAMINATION: Patient is lying in the bed appears to be in mild acute distress due to shortness of breath, awake alert and oriented.. HEENT: Normocephalic. Neck is supple. Pupils reactive. Nostrils clear. Oral cavity is moist. Neck reveals no JVD, carotid bruits, or thyromegaly. CHEST EXAMINATION: Trachea is central. Symmetrical expansion. Bilateral coarse breath sounds and scattered rhonchi. CARDIAC: Normal S1, S2 with no gallops. No murmurs ABDOMEN: Soft. Bowel sounds normal. No organomegaly. No abdominal bruits. Extremities: reveal no edema. No clubbing or cyanosis Neurologically awake, alert, oriented x3 with well-coordinated movements. No focal deficits noted Skin: No rash or skin lesions. Psychiatric: Coperative. Nonsuicidal, anxious. Musculoskeletal: No joint swelling or deformity. Normal range of motion. Results CBC & Chem 7: 10/13/23 05:06 10/13/23 05:06 Labs: Abnormal Lab Results - Last 24 Hours (Table) 10/12/23 10/12/23 10/12/23 Range/Units 15:40 15:40 15:40 WBC 23.7 H (3.8-10.6) k/uL Hgb (13.0-17.5) gm/dL Neutrophils # 21.5 H (1.3-7.7) k/uL Lymphocytes # 0.8 L (1.0-4.8) k/uL Monocytes # 1.1 H (0-1.0) k/uL Chloride (98-107) mmol/L Glucose (74-99) mg/dL Plasma Lactic Acid Pierre 4.7 H* (0.7-2.0) mmol/L Magnesium 1.5 L (1.6-2.3) mg/dL 10/12/23 10/13/23 10/13/23 Range/Units 19:27 00:13 05:06 WBC 23.8 H (3.8-10.6) k/uL Hgb 12.9 L (13.0-17.5) gm/dL Neutrophils # 22.6 H (1.3-7.7) k/uL Lymphocytes # 0.7 L (1.0-4.8) k/uL Monocytes # (0-1.0) k/uL Chloride (98-107) mmol/L Glucose (74-99) mg/dL Plasma Lactic Acid Pierre 3.6 H* 3.3 H* (0.7-2.0) mmol/L Magnesium (1.6-2.3) mg/dL 10/13/23 10/13/23 Range/Units 05:06 05:06 WBC (3.8-10.6) k/uL Hgb (13.0-17.5) gm/dL Neutrophils # (1.3-7.7) k/uL Lymphocytes # (1.0-4.8) k/uL Monocytes # (0-1.0) k/uL Chloride 110 H (98-107) mmol/L Glucose 131 H (74-99) mg/dL Plasma Lactic Acid Pierre 2.4 H* (0.7-2.0) mmol/L Magnesium 2.4 H (1.6-2.3) mg/dL Thrombosis Risk Factor Assmnt - DVT/VTE Prophylaxis DVT/VTE Prophylaxis: Pharmacologic Prophylaxis ordered Assessment and Plan Assessment: Acute on chronic hypoxemic respiratory failure secondary to COPD and pneumonia Acute COPD exacerbation Bilateral pneumonia Sepsis secondary to pneumonia A-fib with RVR as per EKG on admission Ongoing nicotine addiction GERD Hypertension Prior history of pneumonia Depression Marijuana use COPD on home oxygen as needed DVT prophylaxis with heparin subcu Plan: Patient will be continued on telemetry monitoring. Continue with antibiotics ceftriaxone and azithromycin. Urine Legionella antigen is negative. Follow-up blood cultures and sputum cultures. Patient is being continued on IV Solu-Medrol, DuoNebs and oxygen supplementation. Replace electrolytes. Lactic acid level improved with hydration. Monitor for withdrawal symptoms. Pulmonary is on board. Cardiology will be consulted due to A-fib with RVR. Continue with metoprolol. Continue to follow closely. Prognosis is guarded. Time with Patient: Greater than 30
[2023-10-14 06:35] LABS: Basophils % (A) 0 %; Eosinophils # (A) 0.1 k/uL (0-0.7); Eosinophils % (A) 0 %; HCT 41.4 % (39.0-53.0); HGB 12.6 gm/dL (13.0-17.5); Lymphocytes # (A) 0.6 k/uL (1.0-4.8); Lymphocytes % (A) 3 %; MCH 27.4 pg (25.0-35.0); MCHC 30.4 g/dL (31.0-37.0); MCV 90.2 fL (80.0-100.0); Mean Platelet Volume 9.7; Monocytes # (A) 0.4 k/uL (0-1.0); Monocytes % (A) 2 %; Neutrophils # (A) 19.5 k/uL (1.3-7.7); Neutrophils % (A) 95 %; Platelet Count 231 k/uL (150-450); RBC 4.59 m/uL (4.30-5.90); RDW 14.1 % (11.5-15.5); WBC 20.7 k/uL (3.8-10.6)
[2023-10-14 06:46] LABS: African American GFR (CKD) >90 (>60 ml/min/1.73 sqM); Anion Gap 6 mmol/L; Blood Urea Nitrogen 24 mg/dL (9-20); Calcium 8.9 mg/dL (8.4-10.2); Carbon Dioxide 21 mmol/L (22-30); Chloride 113 mmol/L (98-107); Glucose 125 mg/dL (74-99); Non-African American GFR(CKD) >90 (>60 ml/min/1.73 sqM); Potassium 4.6 mmol/L (3.5-5.1); Sodium 140 mmol/L (137-145)
--- NOTE | 2023-10-14 10:41 | XR ---
EXAM: XR chest 1V portable CLINICAL INDICATION:Male, 63 years old with history of worsening sob; [facility] COMPARISON: 10/13/2023 before TECHNIQUE: Chest single view. FINDINGS: Lines/tubes/devices: EKG leads overlie the chest. No indwelling lines are seen. Cardiomediastinum: Cardiomediastinal margins are obscured. Heart size indeterminate. Vasculature: No increased pulmonary vasculature. Lungs/pleura: Moderately severe diffuse bilateral alveolar and interstitial opacities appear stable to mildly incre ased from the prior exam. No significant pleural effusion or visible pneumothorax. Bones/soft tissues: Bony thorax appears grossly intact as seen. Regional soft tissues appear unremarkable. IMPRESSION: Moderately severe diffuse bilateral pulmonary opacities, stable to mildly increased from the prior ex am.
--- NOTE | 2023-10-14 12:36 | P.PN ---
Subjective Progress Note Date: 10/14/23 Principal diagnosis: Respiratory failure. Pulmonary consult dated October 13, 2023. This is a 63-year-old male who was seen in the emergency department on October 11. He came into the emergency department, complaining of shortness of breath, anxiety, and shaking. The patient also complains of cough, and chest congestion. The patient does have a history of COPD. He is seen today in room 384. He is resting comfortably, on 3 L of oxygen. He is getting saline at 130 cc an hour. He was given azithromycin, and Rocephin. Procalcitonin level was ordered. The patient has a history of COPD, gastroesophageal reflux disease, hypertension, pneumonia, and previous back surgery. The patient does continue to smoke cigarettes on a daily basis. Current labs include a white count 23.8, hemoglobin 12.9, hematocrit 41.4, and a platelet count of 230,000. Sodium 141, potassium 3.8, chlorides 110, CO2 23, BUN 20, creatinine 0.92. Glucose is 131. Lactic acid is 1.8. Magnesium is 2.4. Calcium 8.9. Procalcitonin level is elevated at 2.51. Chest x-ray shows diffuse bilateral pulmonary infiltrates. N-terminal proBNP is in the normal range. Legionella antigen is negative. Progress note dated October 14, 2023. The patient became much more short of breath today, and required a nonrebreather mask. On the nonrebreather, saturations were in the low 90s. The patient's repeat chest x-ray shows diffuse four-quadrant opacification. This be consistent with worsening pneumonia, fluid overload, or acute lung injury. Laboratory data includes a white count 20.7, hemoglobin 12.6, hematocrit 41.4, and a platelet count of 331,000. Sodium 140, potassium 4.6, chlorides 113, CO2 21, BUN 24, creatinine 0.72. Calcium is 8.9. Blood cultures are currently negative. Chest x-ray, as previously mentioned, is worse. The patient continues on Rocephin empirically. Objective - Vital Signs Vital signs: Vital Signs Temp 98.0 F 10/14/23 08:55 Pulse 96 10/14/23 12:25 Resp 28 H 10/14/23 09:37 BP 148/96 10/14/23 08:55 Pulse Ox 93 L 10/14/23 10:03 FiO2 Intake & Output 10/13/23 10/14/23 10/14/23 18:59 06:59 18:59 Intake Total 310 540 0 Balance 310 540 0 Intake: Oral 310 540 0 Other: Voiding Method Toilet # Voids 1 1 # Bowel Movements 1 - Exam Mild respiratory distress, oriented 3. Saturations are 93% on a nonrebreather. No conversational dyspnea. Patient is currently on a nonrebreather mask. HEENT examination is grossly unremarkable. Mucous membranes are moist. No oral lesions. Neck supple. Full range of motion. No adenopathy thyromegaly or neck vein distention. Cardiovascular examination reveals regular rhythm rate. S1-S2 normal. No S3 or S4. No discernible murmur noted. Heart sounds are distant. Heart rate 96 bpm. Lungs reveal bilateral scattered inspiratory and expiratory rhonchi. Breath sounds are equal. No crackles or wheezes. Saturations are 93% on a nonrebreath er mask. Abdomen soft bowel sounds are heard. No masses or tenderness. Extremities are intact. No cyanosis clubbing or edema. Skin is without rash or lesion. Neurologic examination is brief but nonfocal. - Labs CBC & Chem 7: 10/14/23 06:05 10/14/23 06:05 Labs: Abnormal Lab Results - Last 24 Hours (Table) 10/13/23 10/14/23 10/14/23 Range/Units 05:06 06:05 06:05 WBC 20.7 H (3.8-10.6) k/uL Hgb 12.6 L (13.0-17.5) gm/dL MCHC 30.4 L (31.0-37.0) g/dL Neutrophils # 19.5 H (1.3-7.7) k/uL Lymphocytes # 0.6 L (1.0-4.8) k/uL Chloride 113 H (98-107) mmol/L Carbon Dioxide 21 L (22-30) mmol/L BUN 24 H (9-20) mg/dL Glucose 125 H (74-99) mg/dL Procalcitonin 2.20 H (0.02-0.09) ng/mL Microbiology - Last 24 Hours (Table) 10/12/23 18:57 Blood Culture - Preliminary Blood 10/12/23 18:40 Blood Culture - Preliminary Blood Assessment and Plan Assessment: Acute hypoxemic respiratory failure, secondary to COPD exacerbation, and complicated by bilateral pneumonia. History of ongoing tobacco use with nicotine addiction. History of gastroesophageal reflux disease. History of hypertension. History of pneumonia. History of depression. Plan: Plan dated October 13, 2023. The patient is currently seen, in room 384. The patient is on 3 L of oxygen. The patient is receiving saline at 130 cc an hour. The patient was started on azithromycin and Rocephin. The patient's procalcitonin level is elevated. La bs, x-rays, and medications are reviewed. The patient continues on updrafts, with albuterol sulfate and ipratropium bromide. In addition, the patient will be given some Solu-Medrol, and also Symbicort. Additional recommendations and suggestions are forthcoming. We will continue to follow closely. Prognosis is guarded. Plan dated October 14, 2023. The patient may eventually need to come down to the intensive care unit. The patient's chest x-ray is much worse. The patient is on a nonrebreather mask. He did not want to wear the BiPAP device. Another option might be Airvo. We will continue following the patient very closely. Should the patient deteriorate any further, we will transfer him down to the intensive care unit. Patient's procalcitonin level is elevated at 2.20. Prognosis is guarded. We will continue to follow the patient very closely. Time with Patient: Less than 30
[2023-10-14 16:09] LABS: ABG Base Excess -2.6 mmol/L; ABG HCO3 22 mmol/L (21-25); ABG Oxygen Saturation 84.1 % (94-97); ABG PCO2 36 mmHg (35-45); ABG PH 7.39 (7.35-7.45); Allen Test Performed? Yes
[2023-10-14 16:13] LABS: ABG PO2 48 mmHg (83-108)
[2023-10-14] MEDS ORDERED: Potassium Replacement Protocol 1 EACH MISC MISCELLANE PRN (16:31)
[2023-10-14] MEDS ORDERED: NALOXONE 0.4 MG/ML 1 ML VIAL IV PRN (16:31)
[2023-10-14] MEDS ORDERED: Magnesium Replacement Protocol 1 EACH MISC MISCELLANE PRN (16:31)
[2023-10-14] MEDS: CISATRACURIUM 2 MG/ML 5 ML VIAL IV ONE ×2 (16:37→23:57)
[2023-10-14] MEDS: MORPHINE SULFATE 4 MG/ML SYRINGE IVP STA (16:37)
[2023-10-14] MEDS: MIDAZOLAM 2 MG/2 ML VIAL ONE (16:37)
[2023-10-14] MEDS: ATORVASTATIN 20 MG TAB PO SCH (16:38)
[2023-10-14] MEDS: propofoL 100 ML IV ONE (17:06)
--- NOTE | 2023-10-14 17:15 | P.CRDCN ---
History of Present Illness Consult date: 10/14/23 History of present illness: HISTORY OF PRESENTING ILLNESS 63-year-old with history of hypertension, depression, GERD, tobacco smoker presented to the hospital because of increased cough sputum production and shortness of breath. Clinically has been treated for COPD exacerbation and pulmonary COVID-pneumonia. His BNP was in normal range. Hemoglobin 12.9, Patient EKG shows atrial fibrillation, heart rate 108 bpm, New diagnosis with the patient REVIEW OF SYSTEMS 14 point review of system is negative except what is mentioned above in HPI. PHYSICAL EXAMINATION Vital signs reviewed. Head: Normocephalic. Eyes: Sclerae nonicteric. Neck: Brisk carotid upstroke, no jugular venous distention. Lungs: wheezing and crackles Heart: Irregularly irregular, S1-S2, no S3, no murmur or rub. Abdomen: Soft nontender, positive bowel sounds. Extremities: No edema, intact distal pulses. Neuro: Alert, oritented, no focal deficits. Detailed neuro exam was not performed. ASSESSMENT Onset atrial fibrillation likely due to COPD exacerbation. [id number] score 2 Acute hypoxic respiratory failure Severe COPD exacerbation Community-acquired pneumonia Tobacco smoker Essential hypertension PLAN Start Eliquis 5 mg twice daily. Detailed discussion about anticoagulation risk factors and benefits were discussed with the patient. Patient chose to be on anticoagulation Atorvastatin 20 mg, metoprolol succinate 25 mg daily. If heart rates are not controlled consider adding Cardizem Continued cardiac telemetry monitoring Obtain echocardiogram Tani Knight MD, [facility], [facility] Thank you for allowing [facility] to participate in this patient's care. Feel free to reach out in case of any followup questions. Past Medical History Past Medical History: COPD, GERD/Reflux, Hypertension, Pneumonia Additional Past Medical History / Comment(s): back pain spinal cord pinched in neck. SOB with activity History of Any Multi-Drug Resistant Organisms: None Reported Past Surgical History: Back Surgery Additional Past Surgical History / Comment(s): neck fusion,rt eye surgery, rt hand surgery, cateracts Past Anesthesia/Blood Transfusion Reactions: No Reported Reaction Past Psychological History: Depression Smoking Status: Current every day smoker Past Alcohol Use History: None Reported Past Drug Use History: Marijuana - Past Family History Mother History Unknown: Yes Family Medical History: Myocardial Infarction ([place]) Additional Family Medical History / Comment(s): from [place] Medications and Allergies Home Medications Medication Instructions Recorded Confirmed Type DULoxetine HCL [Cymbalta] 60 mg PO DAILY 04/15/22 10/12/23 History Baclofen [Lioresal] 20 mg PO TID 01/13/23 10/12/23 History DULoxetine HCL [Cymbalta] 30 mg PO HS 05/10/23 10/12/23 History HYDROcodone/APAP 7.5-325MG [[place] 1 tab PO BID PRN 05/10/23 10/12/23 History 7.5-325] Tamsulosin [Flomax] 0.4 mg PO DAILY 05/10/23 10/12/23 History Metoprolol Succinate [Metoprolol 12.5 mg PO DAILY 09/12/23 10/12/23 History Succinate ER] amLODIPine BESYLATE [Amlodipine 2.5 mg PO DAILY 09/12/23 10/12/23 History Besylate] Albuterol Sulfate [Albuterol 2 puff PO RT-QID PRN 10/12/23 10/12/23 History Sulfate Hfa] Ipratropium-Albuterol Nebulize 3 ml INHALATION RT-Q6H PRN 10/12/23 10/12/23 History [Duoneb 0.5 mg-3 mg/3 ml Soln] Allergies Allergy/AdvReac Type Severity Reaction Status Date / Time sacubitril [From Entresto] Allergy hives Verified 10/12/23 17:09 trazodone Allergy Rash/Hives Verified 10/12/23 17:09 valsartan [From Entresto] Allergy hives Verified 10/12/23 17:09 Physical Exam Vitals: Vital Signs Temp Pulse Pulse Resp BP BP Pulse Ox 10/14/23 17:00 101 H 8 L 138/83 98 10/14/23 16:53 10/14/23 16:46 10/14/23 16:45 89 22 174/100 94 L 10/14/23 16:42 10/14/23 16:36 10/14/23 16:30 96 35 H 88 L 10/14/23 16:29 64 H 10/14/23 15:20 108 H 10/14/23 15:12 106 H 10/14/23 14:00 24 10/14/23 12:25 96 10/14/23 12:17 90 10/14/23 12:00 92 24 107/68 90 L 10/14/23 10:03 93 L 10/14/23 09:37 104 H 28 H 91 L 10/14/23 09:34 108 H 32 H 89 L 10/14/23 09:31 106 H 10/14/23 09:23 110 H 106 H 36 H 78 L 10/14/23 09:12 88 26 H 91 L 10/14/23 09:06 96 28 H 89 L 10/14/23 09:03 106 H 34 H 86 L 10/14/23 08:55 98.0 F 122 H 36 H 148/96 68 L 10/14/23 08:00 28 H 10/14/23 07:46 90 L 10/14/23 03:42 100 24 169/84 90 L 10/13/23 23:09 73 24 139/78 89 L 10/13/23 20:45 98.2 F 96 22 136/82 90 L 10/13/23 17:49 99 FiO2 10/14/23 17:00 10/14/23 16:53 100 10/14/23 16:46 100 10/14/23 16:45 10/14/23 16:42 100 10/14/23 16:36 100 10/14/23 16:30 10/14/23 16:29 10/14/23 15:20 10/14/23 15:12 10/14/23 14:00 10/14/23 12:25 10/14/23 12:17 10/14/23 12:00 10/14/23 10:03 10/14/23 09:37 10/14/23 09:34 10/14/23 09:31 10/14/23 09:23 10/14/23 09:12 10/14/23 09:06 10/14/23 09:03 10/14/23 08:55 10/14/23 08:00 10/14/23 07:46 10/14/23 03:42 10/13/23 23:09 10/13/23 20:45 10/13/23 17:49 Intake and Output 10/14/23 10/14/23 10/14/23 06:59 14:59 22:59 Intake Total 540 0 52.572 Output Total 325 Balance 540 0 -272.428 Intake: IV 50 0.9 50 Intake, IV Titration 2.572 Amount propofoL 1,000 mg In 2.572 Empty Bag 1 bag @ 15 MCG/ KG/MIN 5.715 mls/hr IV . [id number] [facility] Rx#:[id number] Oral 540 0 Output: Urine 325 Other: Voiding Method Toilet Indwelling Catheter # Voids 1 Results 10/14/23 06:05 10/14/23 06:05 CBC 10/14/23 Range/Units 06:05 WBC 20.7 H (3.8-10.6) k/uL RBC 4.59 (4.30-5.90) m/uL Hgb 12.6 L (13.0-17.5) gm/dL Hct 41.4 (39.0-53.0) % Plt Count 231 (150-450) k/uL Comprehensive Metabolic Panel 10/14/23 Range/Units 06:05 Sodium 140 (137-145) mmol/L Potassium 4.6 (3.5-5.1) mmol/L Chloride 113 H (98-107) mmol/L Carbon Dioxide 21 L (22-30) mmol/L BUN 24 H (9-20) mg/dL Creatinine 0.72 (0.66-1.25) mg/dL Glucose 125 H (74-99) mg/dL Calcium 8.9 (8.4-10.2) mg/dL Current Medications Generic Name Dose Route Start Last Admin Trade Name Freq PRN Reason Stop Dose Admin Hydrocodone Bitart/Acetaminophen 1 each 10/14/23 13:55 Hydrocodone/Apap 7.5-325mg 1 Each Tab PO Q6H PRN Pain Albuterol/Ipratropium 3 ml 10/12/23 21:43 Ipratropium-Albuterol 3 Ml Neb INHALATION RT-Q6H PRN Shortness Of Breath Albuterol/Ipratropium 3 ml 10/14/23 20:00 Ipratropium-Albuterol 3 Ml Neb INHALATION RT-Q4H [facility] Apixaban 5 mg 10/14/23 21:00 Apixaban 5 Mg Tab PO BID [facility] Protocol Atorvastatin Calcium 20 mg 10/14/23 15:45 10/14/23 16:38 Atorvastatin 20 Mg Tab PO Not Given DAILY [facility] Baclofen 5 mg 10/12/23 21:43 10/14/23 09:36 Baclofen 10 Mg Tab PO 5 mg BID PRN Administration Muscle Spasm Budesonide/Formoterol Fumarate 2 puff 10/13/23 20:00 10/14/23 07:47 Symbicort 160-4.5 Mcg Inhaler INHALATION Not Given RT-BID [facility] Chlorhexidine Gluconate 15 ml 10/14/23 21:00 Chlorhexidine Gluconate 15 Ml Cup MUCOUS MEM BID [facility] Duloxetine HCl 30 mg 10/12/23 21:45 10/13/23 20:56 Duloxetine Hcl 30 Mg Capsule.Dr PO 30 mg HS [facility] Administration Duloxetine HCl 60 mg 10/13/23 09:00 10/14/23 08:25 Duloxetine Hcl 30 Mg Capsule. PO 60 mg DAILY [facility] Administration Ceftriaxone Sodium 2 gm/ 50 mls @ 100 mls/hr 10/13/23 09:00 10/14/23 08:24 Sodium Chloride IVPB 10/16/23 09:29 100 mls/hr Q24HR [facility] Administration Protocol Norepinephrine Bitartrate 4 mg 254 mls @ 12.097 mls/hr 10/14/23 16:45 / Sodium Chloride IV .Q21H [facility] Protocol 0.05 MCG/KG/MIN Propofol 1,000 mg/ IV Solution 100 mls @ 5.715 mls/hr 10/14/23 16:45 10/14/23 17:07 IV 50 mcg/kg/min .[id number] [facility] 19.051 mls/hr Titration Protocol 15 MCG/KG/MIN Lorazepam 2 mg 10/12/23 19:47 10/14/23 08:25 Lorazepam 1 Mg Tab PO 2 mg Q3HR PRN Administration [place] 8 To 9 Lorazepam 2 mg 10/12/23 19:47 10/13/23 00:56 Lorazepam 1 Mg Tab PO 2 mg Q2HR PRN Administration [place] 10 or greater Lorazepam 0.5 mg 10/12/23 19:47 10/13/23 20:13 Lorazepam 0.5 Mg Tab PO 0.5 mg Q4HR PRN Administration [place] 4 To 5 Lorazepam 1 mg 10/12/23 19:47 Lorazepam 1 Mg Tab PO Q4HR PRN [place] 6 To 7 Lorazepam 1 mg 10/13/23 08:33 Lorazepam 1 Mg/0.5 Ml Vial IV Q2HR PRN CIWA 8 or 9 Lorazepam 2 mg 10/13/23 08:33 Lorazepam 1 Mg/0.5 Ml Vial IV 10/14/23 23:00 Q10M PRN CIWA 16 or higher Lorazepam 1 mg 10/13/23 08:34 Lorazepam 1 Mg/0.5 Ml Vial IV Q1HR PRN CIWA 10 to 15 Magnesium Oxide 400 mg 10/12/23 21:00 10/14/23 08:25 Magnesium Oxide 400 Mg Tab PO 400 mg BID RAGHU Administration Methylprednisolone Sodium Succinate 40 mg 10/13/23 18:00 10/14/23 13:45 Methylprednisolone Sod Succi 40 Mg/Ml 1 Ml Vial IV 40 mg Q6HR [facility] Administration Metoprolol Succinate 25 mg 10/15/23 09:00 Metoprolol Succinate (Er) 25 Mg Tab.Er.24h PO DAILY [facility] Miscellaneous Information 1 each 10/12/23 17:49 Pneumonia Protocol Utilized 1 Each Misc PO ONCE PRN Per Protocol Miscellaneous Information 1 each 10/14/23 16:31 Potassium Replacement Protocol 1 Each Misc MISCELLANE DAILY PRN Per Protocol Miscellaneous Information 1 each 10/14/23 16:31 Magnesium Replacement Protocol 1 Each Misc MISCELLANE DAILY PRN Per Protocol Protocol Naloxone HCl 0.2 mg 10/14/23 16:31 Naloxone 0.4 Mg/Ml 1 Ml Vial IV Q2M PRN Opioid Reversal Pantoprazole Sodium 40 mg 10/15/23 09:00 Pantoprazole 40 Mg/10 Ml Vial IV DAILY [facility]AGHU Tamsulosin HCl 0.4 mg 10/13/23 09:00 10/14/23 08:25 Tamsulosin 0.4 Mg Cap.Er.24h PO 0.4 mg DAILY RAGHU Administration Thiamine HCl 100 mg 10/13/23 09:00 10/14/23 08:25 Thiamine 100 Mg Tab PO 100 mg DAILY RAGHU Administration Intake and Output 10/14/23 10/14/23 10/14/23 06:59 14:59 22:59 Intake Total 540 0 52.572 Output Total 325 Balance 540 0 -272.428 Intake: IV 50 0.9 50 Intake, IV Titration 2.572 Amount propofoL 1,000 mg In 2.572 Empty Bag 1 bag @ 15 MCG/ KG/MIN 5.715 mls/hr IV . [id number] [facility] Rx#:[id number] Oral 540 0 Output: Urine 325 Other: Voiding Method Toilet Indwelling Catheter # Voids 1 10/14/23 06:05 10/14/23 06:05
[2023-10-14 17:38] LABS: Basophils % (A) 0 %; Eosinophils % (A) 0 %; HCT 38.8 % (39.0-53.0); HGB 11.9 gm/dL (13.0-17.5); Hypochromasia Slight; Lymphocytes # (A) 0.5 k/uL (1.0-4.8); Lymphocytes % (A) 3 %; MCH 27.8 pg (25.0-35.0); MCHC 30.6 g/dL (31.0-37.0); MCV 90.6 fL (80.0-100.0); Mean Platelet Volume 9.5; Monocytes # (A) 0.6 k/uL (0-1.0); Monocytes % (A) 3 %; Neutrophils % (A) 94 %; Platelet Count 192 k/uL (150-450); RBC 4.29 m/uL (4.30-5.90); RDW 14.3 % (11.5-15.5); WBC 18.1 k/uL (3.8-10.6)
[2023-10-14 17:42] LABS: ABG Base Excess -4.3 mmol/L; ABG HCO3 23 mmol/L (21-25); ABG Oxygen Saturation 98.7 % (94-97); ABG PCO2 48 mmHg (35-45); ABG PH 7.28 (7.35-7.45); ABG PO2 133 mmHg (83-108); Allen Test Performed? Yes
[2023-10-14] MEDS: fentaNYL (PF). 1,000 MCG in SODIUM CHLORIDE 0.9% 80 ML IV SCH (17:46)
[2023-10-14 17:50] LABS: African American GFR (CKD) >90 (>60 ml/min/1.73 sqM); Anion Gap 3 mmol/L; Blood Urea Nitrogen 28 mg/dL (9-20); Calcium 8.4 mg/dL (8.4-10.2); Carbon Dioxide 22 mmol/L (22-30); Chloride 114 mmol/L (98-107); Glucose 146 mg/dL (74-99); Magnesium 2.2 mg/dL (1.6-2.3); Non-African American GFR(CKD) >90 (>60 ml/min/1.73 sqM); Potassium 4.2 mmol/L (3.5-5.1); Sodium 139 mmol/L (137-145)
[2023-10-14] MEDS: NOREPINEPHRINE 4 MG in SODIUM CHLORIDE 0.9% 250 ML IV SCH (18:03)
--- NOTE | 2023-10-14 18:06 | XR ---
EXAMINATION TYPE: XR chest 1V portable DATE OF EXAM: 10/14/2023 5:23 PM CLINICAL INDICATION:Male, 63 years old with history of tube and line placement; [facility] COMPARISON: Chest radiographs from TECHNIQUE: XR chest 1V portable Frontal view of the chest. FINDINGS: Lungs/Pleura: Diffuse airspace opacities throughout the lungs. There is no evidence of pleural effusi on or pneumothorax. Pulmonary vascularity: Unremarkable. Heart/mediastinum: Cardiomediastinal silhouette is unremarkable. Musculoskeletal: No acute osseous pathology. Other findings: None Lines/Tubes: Endotracheal tube with distal tip 5.5 cm above the enriqueta. Nasogastric tube with its distal tip and side-port projecting under the diaphragm. Left internal jugular central venous catheter with distal tip at the cavoatrial junction. IMPRESSION: 1. Diffuse airspace opacities throughout the lungs there is represent pulmonary edema. 2. Left central venous catheter and support tubes appear in appropriate position.
[2023-10-14] MEDS: IPRATROPIUM-ALBUTEROL 3 ML NEB INHALATION SCH (20:21)
--- NOTE | 2023-10-14 21:36 | PCN ---
PROCEDURE NOTE PROCEDURE PERFORMED: Right brachial arterial line. PREOPERATIVE DIAGNOSIS: Frequent blood draws and blood gas monitoring. POSTOPERATIVE DIAGNOSIS: Frequent blood draws and blood gas monitoring. The patient's procedure took place in the patient's room 260. There was informed consent and universal timeout. Dr. Norwood was the grinder operator external tool. ARTERIAL LINE PLACEMENT: Indications: Hemodynamic monitoring. A time-out was completed verifying correct patient, procedure, site, positioning, and implant(s) or special equipment if applicable. Alonso's test was performed to ensure adequate perfusion. The patient's right wrist or right groin was prepped and draped in sterile fashion. 1% Lidocaine was used to anesthetize the area. An 18G Arrow arterial line was introduced into the right brachial artery. The catheter was threaded over the guide wire and the needle was removed with appropriate pulsatile blood return. Blood loss was minimal. The catheter was then sutured in place to the skin and a sterile dressing applied. Perfusion to the extremity distal to the point of catheter insertion was checked and found to be adequate. The patient tolerated the procedure well and there were no complications. There was good waveform and blood pressure reading. The catheter was sutured in place. A sterile dressing was applied by the nurse. There was no immediate complication. MMODL / IJN: [id number] /
--- NOTE | 2023-10-14 21:40 | PCN ---
PROCEDURE NOTE PROCEDURE PERFORMED: A left internal jugular triple-lumen catheter. PREOPERATIVE DIAGNOSIS: Administration of fluids and pressors. POSTOPERATIVE DIAGNOSIS: Administration of fluids and pressors. WATER AND GAS HELPER: Dr. Norwood. There was informed consent and universal timeout. The patient's procedure took place in room 260. TRIPLE LUMEN CATHETER PLACEMENT: Indication: Hemodynamic monitoring/Intravenous access. A time-out was completed verifying correct patient, procedure, site, positioning, and implant(s) or special equipment if applicable. The patient was placed in a dependent position appropriate for triple lumen catheter placement based on the vein to be cannulated. The patient's left shoulder or left neck or left groin was prepped and draped in sterile fashion. 1% Lidocaine was used to anesthetize the surrounding skin area. A triple lumen 9F Cordis catheter was introduced into the left internal jugular vein via the posterior approach using Seldinger technique. The catheter was threaded smoothly over the guide wire and appropriate blood return was obtained. Each lumen of the catheter was evacuated of air and flushed with sterile saline. The catheter was then sutured in place to the skin and a sterile dressing applied. Perfusion to the extremity distal to the point of catheter insertion was checked and found to be adequate. There was good blood return and waveform. The catheter was sutured in place. A sterile dressing was applied by the nurse on chest x-ray. The tip of the catheter was seen at the junction of superior vena cava and right atrium. The patient tolerated the procedure well and nurses applied a sterile dressing. There was no immediate complication. MMODL / IJN: [id number] /
--- NOTE | 2023-10-14 21:46 | PCN ---
PROCEDURE NOTE PROCEDURE PERFORMED: Emergent intubation. PREOPERATIVE DIAGNOSIS: Impending respiratory failure. POSTOPERATIVE DIAGNOSIS: Impending respiratory failure. The patient's procedure took place in room 260. There was informed consent and universal timeout. Dr. Norwood was the foundation drill operator helper. We intubated the patient with #8 endotracheal tube using standard laryngoscope #4 Pravin blade for sedation. The patient received 2 mg of Versed, 4 mg of morphine, 130 mg of propofol, 3 mL or 60 mg of succinylcholine and then after intubation, 10 mg of Nimbex. The endotracheal tube was seen to go through the cords under direct visualization. The balloon on the endotracheal tube was inflated. There was good color change on the qualitative capnography devices. There were good bilateral breath sounds. A chest x-ray was ordered to check placement. There was no immediate complication. The patient was connected to the ventilator. MMBETTYL / ANTIONEN: [id number] /
[2023-10-14] MEDS: CHLORHEXIDINE GLUCONATE 15 ML CUP MUCOUS MEM SCH (21:53)
[2023-10-14] MEDS: APIXABAN 5 MG TAB PO SCH (21:53)
[2023-10-15] MEDS: CISATRACURIUM 200 MG in SODIUM CHLORIDE 0.9% 180 ML IV SCH (00:06)
[2023-10-15] MEDS: CISATRACURIUM 2 MG/ML 5 ML VIAL IV ONE (00:11)
[2023-10-15] MEDS: SODIUM CHLORIDE 0.9% 1,000 ML IV SCH (00:12)
[2023-10-15] MEDS: ARTIFICIAL TEARS OINTMENT 3.5 GM TUBE BOTH EYES SCH (01:00)
[2023-10-15 05:29] LABS: Basophils % (A) 0 %; Eosinophils % (A) 0 %; HCT 35.3 % (39.0-53.0); HGB 10.9 gm/dL (13.0-17.5); Hypochromasia Moderate; Lymphocytes # (A) 0.3 k/uL (1.0-4.8); Lymphocytes % (A) 2 %; MCH 28.5 pg (25.0-35.0); MCV 92.1 fL (80.0-100.0); Mean Platelet Volume 9.3; Monocytes # (A) 0.3 k/uL (0-1.0); Monocytes % (A) 2 %; Neutrophils # (A) 14.7 k/uL (1.3-7.7); Neutrophils % (A) 96 %; Platelet Count 208 k/uL (150-450); RBC 3.84 m/uL (4.30-5.90); RDW 14.2 % (11.5-15.5); WBC 15.3 k/uL (3.8-10.6)
[2023-10-15 05:52] LABS: African American GFR (CKD) >90 (>60 ml/min/1.73 sqM); Anion Gap 2 mmol/L; Blood Urea Nitrogen 26 mg/dL (9-20); Calcium 8.3 mg/dL (8.4-10.2); Carbon Dioxide 24 mmol/L (22-30); Chloride 115 mmol/L (98-107); Glucose 151 mg/dL (74-99); Non-African American GFR(CKD) >90 (>60 ml/min/1.73 sqM); Potassium 4.8 mmol/L (3.5-5.1); Sodium 141 mmol/L (137-145)
[2023-10-15 06:14] LABS: ABG Base Excess -5.8 mmol/L; ABG HCO3 23 mmol/L (21-25); ABG Oxygen Saturation 99.2 % (94-97); ABG PCO2 62 mmHg (35-45); ABG PO2 160 mmHg (83-108); Allen Test Performed? Yes
[2023-10-15 06:19] LABS: ABG PH 7.18 (7.35-7.45)
--- NOTE | 2023-10-15 08:56 | P.PN ---
Subjective Progress Note Date: 10/15/23 Principal diagnosis: Paroxysmal atrial fibrillation The patient is a 63-year-old gentleman with COPD who was admitted to the hospital with COPD exacerbation and he was found to be in atrial fibrillation with RVR and subsequently converted to normal sinus mechanism. The atrial f ibrillation is no. Subsequently an echocardiogram was ordered and still pending. He was started on oral anticoagulation as well as oral AV mile david agents October 23, 2023 The patient was seen and evaluated this morning. He remains in sinus mechanism. He is unstable and requiring norepinephrine. The echo still pending. He is on oral anticoagulation as well as metoprolol. Will continue the current medical regimen and follow-up with the echocardiogram. If the pressure remains low in the spite of norepinephrine I would consider DC metoprolol and start the patient on amiodarone. The examination is remarkable for regular rhythm with bilateral expiratory wheezing and no edema was noted Assessment Acute hypoxic respiratory failure COPD exacerbation Paroxysmal atrial fibrillation which is new. Currently the patient is in sinus rhythm Plan Continue the current medical regimen Consider DC metoprolol and start the patient on amnio if the pressure remains low Continue oral anticoagulation Follow-up on the echocardiogram Objective - Vital Signs Vital signs: Vital Signs Temp 98.7 F 10/15/23 04:00 Pulse 85 10/15/23 07:00 Resp 24 10/15/23 07:00 BP 138/83 10/14/23 17:00 Pulse Ox 96 10/15/23 07:00 FiO2 50 10/15/23 06:20 Intake & Output 10/14/23 10/15/23 10/15/23 18:59 06:59 18:59 Intake Total 4371.097 4590.280 123.759 Output Total 345 400 45 Balance 877.344 8280.280 78.759 Weight 81.7 kg Intake: IV 1050 1450 75 0.9 50 0.9 NACL bolus 1000 1000 Sodium Chloride 0.9% 1, 450 75 000 ml @ 75 mls/hr IV . [id number] RAGHU Rx#:[id number] Intake, IV Titration 41.081 667.280 48.759 Amount Cisatracurium 200 mg In 46.994 17.145 Sodium Chloride 0.9% 180 ml @ 1 MCG/KG/MIN 3.81 mls/hr IV .Q24H RAGHU Rx#: [id number] Norepinephrine 4 mg In 9.678 155.734 31.614 Sodium Chloride 0.9% 250 ml @ 0.05 MCG/KG/MIN 12. 097 mls/hr IV .Q21H RAGHU Rx#:[id number] Sodium Chloride 0.9% 1, 75 000 ml @ 75 mls/hr IV . [id number] RAGHU Rx#:[id number] fentaNYL (PF). 1,000 mcg 1.429 64.294 In Sodium Chloride 0.9% 80 ml @ 0.5 MCG/KG/HR 3. 175 mls/hr IV .Q24H RAGHU Rx#:[id number] propofoL 1,000 mg In 29.974 325.258 Empty Bag 1 bag @ 15 MCG/ KG/MIN 5.715 mls/hr IV . [id number] RAGHU Rx#:[id number] Oral 0 Output: Urine 345 400 45 Other: Voiding Method Indwelling Catheter Indwelling Catheter ABP, PAP, CO, CI - Last Documented Arterial Blood Pressure 92/50 - Labs CBC & Chem 7: 10/15/23 05:04 10/15/23 05:04 Labs: Abnormal Lab Results - Last 24 Hours (Table) 10/14/23 10/14/23 10/14/23 Range/Units 16:05 17:07 17:07 WBC 18.1 H (3.8-10.6) k/uL RBC 4.29 L (4.30-5.90) m/uL Hgb 11.9 L (13.0-17.5) gm/dL Hct 38.8 L (39.0-53.0) % MCHC 30.6 L (31.0-37.0) g/dL Neutrophils # 17.0 H (1.3-7.7) k/uL Lymphocytes # 0.5 L (1.0-4.8) k/uL ABG pH (7.35-7.45) ABG pCO2 (35-45) mmHg ABG pO2 48 L* (83-108) mmHg ABG O2 Saturation 84.1 L (94-97) % Chloride 114 H (98-107) mmol/L BUN 28 H (9-20) mg/dL Glucose 146 H (74-99) mg/dL Calcium (8.4-10.2) mg/dL 10/14/23 10/15/23 10/15/23 Range/Units 17:34 05:04 05:04 WBC 15.3 H (3.8-10.6) k/uL RBC 3.84 L (4.30-5.90) m/uL Hgb 10.9 L (13.0-17.5) gm/dL Hct 35.3 L (39.0-53.0) % MCHC (31.0-37.0) g/dL Neutrophils # 14.7 H (1.3-7.7) k/uL Lymphocytes # 0.3 L (1.0-4.8) k/uL ABG pH 7.28 L (7.35-7.45) ABG pCO2 48 H (35-45) mmHg ABG pO2 133 H (83-108) mmHg ABG O2 Saturation 98.7 H (94-97) % Chloride 115 H (98-107) mmol/L BUN 26 H (9-20) mg/dL Glucose 151 H (74-99) mg/dL Calcium 8.3 L (8.4-10.2) mg/dL 10/15/23 Range/Units 06:10 WBC (3.8-10.6) k/uL RBC (4.30-5.90) m/uL Hgb (13.0-17.5) gm/dL Hct (39.0-53.0) % MCHC (31.0-37.0) g/dL Neutrophils # (1.3-7.7) k/uL Lymphocytes # (1.0-4.8) k/uL ABG pH 7.18 L* (7.35-7.45) ABG pCO2 62 H (35-45) mmHg ABG pO2 160 H (83-108) mmHg ABG O2 Saturation 99.2 H (94-97) % Chloride (98-107) mmol/L BUN (9-20) mg/dL Glucose (74-99) mg/dL Calcium (8.4-10.2) mg/dL Microbiology - Last 24 Hours (Table) 10/12/23 18:57 Blood Culture - Preliminary Blood 10/12/23 18:40 Blood Culture - Preliminary Blood
[2023-10-15] MEDS: PANTOPRAZOLE 40 MG/10 ML VIAL IV SCH (09:33)
[2023-10-15] MEDS: FORMOTEROL FUMARATE 20 MCG/2 ML NEBU INHALATION SCH (09:38)
[2023-10-15] MEDS: BUDESONIDE 1 MG/2 ML NEBU INHALATION SCH (09:38)
[2023-10-15] MEDS: METOPROLOL SUCCINATE (ER) 25 MG TAB.ER.24H PO SCH (09:42)
--- NOTE | 2023-10-15 09:57 | XR ---
EXAMINATION TYPE: XR chest 1V portable DATE OF EXAM: 10/15/2023 COMPARISON: 10/14/2023 INDICATION: Tube placement TECHNIQUE: Single frontal view of the chest is obtained. FINDINGS: The heart size is normal. The pulmonary vasculature is indistinct. Diffuse opacities throughout bilateral lung interiano. Correlate for pulmonary edema. Findings are simil ar to comparison. Endotracheal tube tip remains above the enriqueta. Nasogastric tube transverses the thorax. Left central venous catheter tip is in the superior vena cava region. IMPRESSION: 1. Diffuse lung infiltrates compatible with pulmonary edema. 2. Multiple lines and catheters discussed above.
[2023-10-15] MEDS ORDERED: VANCOMYCIN IV PER PHARMACY 1 EACH MISC MISCELLANE PRN (09:59)
[2023-10-15] MEDS: PIPERACILLIN-TAZOBACTAM 3.375 GM in SODIUM CHLORIDE 0.9% 100 ML IVPB SCH ×2 (10:27→18:34)
--- NOTE | 2023-10-15 11:31 | P.PN ---
Subjective Progress Note Date: 10/14/23 Patient is a 63-year-old male with a past medical history of COPD on home oxygen, hypertension, chronic back pain, history of cervical fusion surgery, depression currently everyday smoker and marijuana use. Patient presents to ER with complaints of worsening shortness of breath anxiety, chills and fever. Patient was tachycardic and tachypneic on admission. States that he has subjective fevers. Cough and congestion and unable to bring out any sputum. No complaints of chest pain. No nausea vomiting abdominal pain or diarrhea. No headache or dizziness or neck stiffness. Chest x-ray showed perihilar infiltrates in the deflector lobar pneumonia. Correlate clinically and appropriate studies are recommended. EKG showed atrial fibrillation with rapid ventricular response. Patient had a cardiac catheterization on 09/14/2023 showed relatively normal coronaries and normal left sided filling pressures. Laboratory test showed WBC 23.7 hemoglobin 14.2 and platelets 265 Sodium 141 potassium 3.8 chloride 104 bicarb is 22 BUN 16 and creatinine 0.94 and blood sugar 89 and lactic acid 4.7 and magnesium 1.5 Snook Elevated procalcitonin level 2.4. Troponin x 1 negative proBNP 262 10/14/2023 Patient is awake alert and still having shortness of breath. Oxygen requirement increased and patient is placed on 100% nonrebreather. Also tachypneic. No complaints of chest pain. No fever no chills. Patient is being continued on IV antibiotics ceftriaxone and azithromycin. Patient is also on DuoNebs and IV steroids. ABG showed pH 7.28 pCO2 48 and pO2 133. Other laboratory data showed WBC 18.1 hemoglobin 11.9 and platelets 192 sodium 139 potassium 4.2 chloride 114 bicarb is 22 BUN 28 and creatinine 0.69 and blood sugar is 146. Patient is being transferred to MICU due to worsening respiratory status and patient needs intubation. Current medications reviewed. Objective - Vital Signs Vital signs: Vital Signs Temp 98.0 F 10/14/23 08:55 Pulse 104 H 10/14/23 09:37 Resp 28 H 10/14/23 09:37 BP 148/96 10/14/23 08:55 Pulse Ox 93 L 10/14/23 10:03 FiO2 Intake & Output 10/13/23 10/14/23 10/14/23 18:59 06:59 18:59 Intake Total 310 540 0 Balance 310 540 0 Intake: Oral 310 540 0 Other: Voiding Method Toilet # Voids 1 1 # Bowel Movements 1 - Exam PHYSICAL EXAMINATION: Patient is lying in the bed appears to be in mild acute distress due to shortness of breath, awake alert and oriented.. HEENT: Normocephalic. Neck is supple. Pupils reactive. Nostrils clear. Oral cavity is moist. Neck reveals no JVD, carotid bruits, or thyromegaly. CHEST EXAMINATION: Trachea is central. Symmetrical expansion. Bilateral coarse breath sounds and scattered rhonchi. CARDIAC: Normal S1, S2 with no gallops. No murmurs ABDOMEN: Soft. Bowel sounds normal. No organomegaly. No abdominal bruits. Extremities: reveal no edema. No clubbing or cyanosis Neurologically awake, alert, oriented x3 with well-coordinated movements. No focal deficits noted Skin: No rash or skin lesions. Psychiatric: Coperative. Nonsuicidal, anxious. Musculoskeletal: No joint swelling or deformity. Normal range of motion. - Labs CBC & Chem 7: 10/15/23 05:04 10/15/23 05:04 Labs: Abnormal Lab Results - Last 24 Hours (Table) 10/13/23 10/14/23 10/14/23 Range/Units 05:06 06:05 06:05 WBC 20.7 H (3.8-10.6) k/uL Hgb 12.6 L (13.0-17.5) gm/dL MCHC 30.4 L (31.0-37.0) g/dL Neutrophils # 19.5 H (1.3-7.7) k/uL Lymphocytes # 0.6 L (1.0-4.8) k/uL Chloride 113 H (98-107) mmol/L Carbon Dioxide 21 L (22-30) mmol/L BUN 24 H (9-20) mg/dL Glucose 125 H (74-99) mg/dL Procalcitonin 2.20 H (0.02-0.09) ng/mL Microbiology - Last 24 Hours (Table) 10/12/23 18:57 Blood Culture - Preliminary Blood 10/12/23 18:40 Blood Culture - Preliminary Blood Assessment and Plan Assessment: Acute on chronic hypoxemic respiratory failure secondary to COPD and pneumonia. Patient is requiring 100% nonrebreather. Acute COPD exacerbation Bilateral pneumonia Sepsis secondary to pneumonia New onset A-fib with RVR as per EKG on admission Ongoing nicotine addiction GERD Hypertension Prior history of pneumonia Depression Marijuana use COPD on home oxygen as needed DVT prophylaxis with heparin subcu Plan: Patient will be continued on telemetry monitoring. Continue with antibiotics ceftriaxone and azithromycin. Urine Legionella antigen is negative. Follow-up blood cultures and sputum cultures. Patient is being continued on IV Solu-Medrol, DuoNebs and oxygen supplementation. Replace electrolytes. Lactic acid level improved with hydration. Monitor for withdrawal symptoms. Patient was started on anticoagulation with Eliquis due to new onset atrial fibrillation.. Continue with metoprolol. Cardiology and pulmonary is on board. Continue to follow closely. Prognosis is guarded. Time with Patient: Greater than 30
[2023-10-15] MEDS: VANCOMYCIN 1,500 MG in SODIUM CHLORIDE 0.9% 500 ML 500 ML IVPB SCH (11:43)
--- NOTE | 2023-10-15 13:23 | CA ---
Transthoracic Echo Report Name: Fausto Willis Age: 63 Gender: M : 1960 Exam Date: 10/15/2023 09:07 Exam Location: [facility] Ht (in): 69 Wt (lb): 140 Ordering Physician: Tani Knight MD ([id number]) Attending/Referring Phys: Repairer Pump Sneha Cherry RDCS Procedure CPT: Indications: afib Cardiac Hx: Technical Quality: Fair Contrast 1: Total Dose (mL): Contrast 2: Total Dose (mL): MEASUREMENTS (Male / Female) Normal Values 2D ECHO LV Diastolic Diameter PLAX 4.6 cm 4.2 - 5.9 / 3.9 - 5.3 cm IVS Diastolic Thickness 0.9 cm 0.6 - 1.0 / 0.6 - 0.9 cm LVPW Diastolic Thickness 0.8 cm 0.6 - 1.0 / 0.6 - 0.9 cm LV Relative Wall Thickness 0.4 DOPPLER AV Peak Velocity 132.3 cm/s AV Peak Gradient 7.0 mmHg AV Mean Velocity 73.7 cm/s AV Mean Gradient 2.6 mmHg AV Velocity Time Integral 21.0 cm LVOT Peak Velocity 117.8 cm/s LVOT Peak Gradient 5.6 mmHg LVOT Velocity Time Integral 22.8 cm MV Area PHT 3.9 cm??? Mitral E Point Velocity 97.7 cm/s Mitral A Point Velocity 103.9 cm/s Mitral E to A Ratio 0.9 MV Deceleration Time 193.4 ms MV E' Velocity 10.9 cm/s Mitral E to MV E' Ratio 9.0 TR Peak Velocity 276.2 cm/s TR Peak Gradient 30.5 mmHg Right Ventricular Systolic Press 35.5 mmHg FINDINGS Left Ventricle Left ventricular cavity size normal. Left ventricular wall thickness normal. Normal left ventricular systolic function with no obvious regional wall motion abnormalities. Left ventricular ejection fraction is estimated at 55-60 %. Right Ventricle Mild right ventricular dilatation. Right Atrium Normal right atrial size. Left Atrium Normal left atrial size. Mitral Valve Structurally normal mitral valve. No mitral stenosis. Aortic Valve No aortic valve stenosis or regurgitation. Tricuspid Valve Mild tricuspid regurgitation. Pulmonic Valve Pulmonic valve not well visualized. Pericardium No pericardial effusion. Aorta Normal size aortic root and proximal ascending aorta. CONCLUSIONS Left ventricular ejection fraction 55-60% RVSP 35 No mitral regurgitation Mild tricuspid regurgitation No pericardial effusion Previewed by: Dr. Dameon Joseph DO (Electronically Signed) Final Date: 15 Oct 2023 13:22
--- NOTE | 2023-10-15 13:59 | P.PN ---
Subjective Progress Note Date: 10/15/23 On 10/15/2023, patient is being seen for a follow-up. The patient remains intubated on the mechanical ventilator with diffuse bilateral pulmonary filtrates, likely presenting bilateral pneumonia. This morning, the patient is on propofol at 75 mcg/kg/min and the patient is also on fentanyl at 1.5 mcg/kg/ h. The patient is on assist-control mechanical ventilation at rate of 28, tidal volume of 400, FiO2 of 50% with a PEEP of 8. Peak airway pressures 32. The static airway pressure is 29. Blood gas shows a pH of 7.18 with a pCO2 of 62 and pO2 of 160. Hemodynamically, the patient remains hypotensive and currently is on norepinephrine at low-dose running at 0.04 mcg/kg/min and the patient is also on normal saline at rate of 75 cc an hour. The white cell count is at 15.3 with a hemoglobin 10.9 and a platelet count of 208. BUN is at 26 with a creatinine of 0.8 and sodium levels at 141 with a potassium level of 4.8 with a serum bicarb of 24. The chloride is at 115. The patient was receiving IV Rocephin. Cardiac rhythm is sinus. Remains on bronchodilators. Remains on steroids. Echocardiogram completed this morning a preserved LV function with an EF of around 55 to 60% without any significant valvular abnormalities. Right ventricular systolic pressure estimated to be around 38. Chest x-ray showing diffuse bilateral pulmonary infiltrates. Cultures are negative thus far. Objective - Vital Signs Vital signs: Vital Signs Temp 98.7 F 10/15/23 04:00 Pulse 85 10/15/23 07:00 Resp 24 10/15/23 07:00 BP 138/83 10/14/23 17:00 Pulse Ox 96 10/15/23 07:00 FiO2 50 10/15/23 09:37 Intake & Output 10/14/23 10/15/23 10/15/23 18:59 06:59 18:59 Intake Total 9225.031 3311.280 260.498 Output Total 345 400 45 Balance 264.855 9648.280 215.498 Weight 81.7 kg Intake: IV 1050 1450 75 0.9 50 0.9 NACL bolus 1000 1000 Sodium Chloride 0.9% 1, 450 75 000 ml @ 75 mls/hr IV . [id number] [facility] Rx#:[id number] Intake, IV Titration 41.081 667.280 185.498 Amount Cisatracurium 200 mg In 46.994 46.485 Sodium Chloride 0.9% 180 ml @ 1 MCG/KG/MIN 3.81 mls/hr IV .Q24H [facility] Rx#: [id number] Norepinephrine 4 mg In 9.678 155.734 44.236 Sodium Chloride 0.9% 250 ml @ 0.05 MCG/KG/MIN 12. 097 mls/hr IV .Q21H [facility] Rx#:[id number] Sodium Chloride 0.9% 1, 75 000 ml @ 75 mls/hr IV . [id number] [facility] Rx#:[id number] fentaNYL (PF). 1,000 mcg 1.429 64.294 In Sodium Chloride 0.9% 80 ml @ 0.5 MCG/KG/HR 3. 175 mls/hr IV .Q24H [facility] Rx#:[id number] propofoL 1,000 mg In 29.974 325.258 94.777 Empty Bag 1 bag @ 15 MCG/ KG/MIN 5.715 mls/hr IV . [id number] [facility] Rx#:[id number] Oral 0 Output: Urine 345 400 45 Other: Voiding Method Indwelling Catheter Indwelling Catheter ABP, PAP, CO, CI - Last Documented Arterial Blood Pressure 92/50 - Exam Pulmonary comfortable, intubated on mechanical ventilator, sedated with propofol and fentanyl. Orogastric and orotracheal tube are both in place. Head exam was generally normal. There was no scleral icterus or corneal arcus. Mucous membranes were moist. HEENT examination is grossly unremarkable. Mucous membranes are moist. No oral lesions. Neck supple. Full range of motion. No adenopathy thyromegaly or neck vein distention. Cardiovascular examination reveals regular rhythm rate. S1-S2 normal. No S3 or S4. No discernible murmur noted. Heart sounds are distant. Lungs reveal bilateral scattered inspiratory and expiratory rhonchi. Breath sounds are equal. No crackles or wheezes. Lung sounds are diminished bilaterally and the patient has diminished breath sounds Abdominal exam revealed normal bowel sounds. The abdomen was soft, non-tender, and without masses, organomegaly, or appreciable enlargement of the abdominal aorta. Extremities are intact. No cyanosis clubbing or edema. Skin is without rash or lesion. Neurologic examination is brief but nonfocal. The patient is sedated and currently patient is calm and comfortable. - Labs CBC & Chem 7: 10/15/23 05:04 10/15/23 05:04 Labs: Abnormal Lab Results - Last 24 Hours (Table) 10/14/23 10/14/23 10/14/23 Range/Units 16:05 17:07 17:07 WBC 18.1 H (3.8-10.6) k/uL RBC 4.29 L (4.30-5.90) m/uL Hgb 11.9 L (13.0-17.5) gm/dL Hct 38.8 L (39.0-53.0) % MCHC 30.6 L (31.0-37.0) g/dL Neutrophils # 17.0 H (1.3-7.7) k/uL Lymphocytes # 0.5 L (1.0-4.8) k/uL ABG pH (7.35-7.45) ABG pCO2 (35-45) mmHg ABG pO2 48 L* (83-108) mmHg ABG O2 Saturation 84.1 L (94-97) % Chloride 114 H (98-107) mmol/L BUN 28 H (9-20) mg/dL Glucose 146 H (74-99) mg/dL Calcium (8.4-10.2) mg/dL 10/14/23 10/15/23 10/15/23 Range/Units 17:34 05:04 05:04 WBC 15.3 H (3.8-10.6) k/uL RBC 3.84 L (4.30-5.90) m/uL Hgb 10.9 L (13.0-17.5) gm/dL Hct 35.3 L (39.0-53.0) % MCHC (31.0-37.0) g/dL Neutrophils # 14.7 H (1.3-7.7) k/uL Lymphocytes # 0.3 L (1.0-4.8) k/uL ABG pH 7.28 L (7.35-7.45) ABG pCO2 48 H (35-45) mmHg ABG pO2 133 H (83-108) mmHg ABG O2 Saturation 98.7 H (94-97) % Chloride 115 H (98-107) mmol/L BUN 26 H (9-20) mg/dL Glucose 151 H (74-99) mg/dL Calcium 8.3 L (8.4-10.2) mg/dL 10/15/23 Range/Units 06:10 WBC (3.8-10.6) k/uL RBC (4.30-5.90) m/uL Hgb (13.0-17.5) gm/dL Hct (39.0-53.0) % MCHC (31.0-37.0) g/dL Neutrophils # (1.3-7.7) k/uL Lymphocytes # (1.0-4.8) k/uL ABG pH 7.18 L* (7.35-7.45) ABG pCO2 62 H (35-45) mmHg ABG pO2 160 H (83-108) mmHg ABG O2 Saturation 99.2 H (94-97) % Chloride (98-107) mmol/L BUN (9-20) mg/dL Glucose (74-99) mg/dL Calcium (8.4-10.2) mg/dL Microbiology - Last 24 Hours (Table) 10/12/23 18:57 Blood Culture - Preliminary Blood 10/12/23 18:40 Blood Culture - Preliminary Blood Assessment and Plan Plan: Acute exacerbation of chronic COPD, with development of diffuse bilateral pulmonary infiltrates with rapid progression over the past 24 to 48 hours with subsequent respiratory failure requiring intubation mechanical ventilation. At this point in time the patient has diffuse bilateral pulmonary infiltrates, intubated on mechanical ventilator. Suspected bacterial infection. Procalcitonin level was elevated at the time of admission at 2.2. In addition, the patient had elevated white cell count. Currently on IV Rocephin. The patient is currently sedated with a combination of propofol and fentanyl. The patient is also paralyzed. Blood cultures negative thus far. Noted the patient has been infected in the past with Pseudomonas aeruginosa. Acute leukocytosis Acute hypercapnic respiratory failure Acute hypoxic respiratory failure Hypotension, currently on low-dose norepinephrine at 0.04 mcg/kg/min Previous history of COPD exac progressive bilateral pulmonary infiltrates with rapiderbation requiring intubation and mechanical ventilatory support on 05/19/2023. The patient was extubated on 05/23/2023 Previous history of pseudomonal growth in the sputum rule out pseudomonal tracheal bronchitis/pneumonia. 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 Previous serum Aspergillus antibodies obtained in April 2023 was negative Chronic and ongoing tobacco dependence of nearly 50 years History of alcoholism Marijuana use History of depression Plan Continue ventilator support and FiO2 down to 50% Set up the patient for a bronchoscopy endobronchial lavage, suspecting recurrent pseudomonal infection Cover the patient with IV Zosyn and vancomycin and discontinue Rocephin for now Keep the patient sedated with a combination of propofol and fentanyl and will give the patient a paralytic holiday following the bronchoscopy IV fluids are currently running at 75 cc an hour of normal saline. Initiate enteral feeding for nutritional support Monitor the white cell count Check the viral screen including RSV, influenza and COVID-19 Wean off norepinephrine maintaining mean arterial pressure above 65 The patient will be kept intubated on mechanical ventilator. Daily chest x-rays Echocardiogram to be done today to evaluate LV function, this was noted and the patient has a preserved LV function without any valvular abnormalities. Will continue to follow and make further recommendation based on his progress. This evaluation was done more than 30 minutes excluding time to any procedures. Condition is critical. Will continue to follow. Time with Patient: Greater than 30
--- NOTE | 2023-10-15 14:01 | P.PCN ---
Date of Procedure: 10/15/23 Preoperative Diagnosis: Bilateral pneumonia Postoperative Diagnosis: Bilateral pneumonia Procedure(s) Performed: Bronchoscopy endobronchial lavage of the right middle lobe Anesthesia: ROCK Surgeon: Cathy Christian Estimated Blood Loss (ml): 0 Pathology: other Condition: critical Disposition: ICU Operative Findings: This procedure was done in the intensive care unit. The patient was already sedated and paralyzed. The patient was placed on 100% FiO2. Following that, a disposable flexible bronchoscope was introduced through the orotracheal tube and a complete airway examination was done. Airways were essentially free of any respiratory secretions. The tip of the orotracheal tube was seen around 3 cm above the enriqueta. Distal trachea and the enriqueta were within normal limits. Examination of the right-sided to the right mainstem bronchus, right upper lobe bronchus, right middle lobe and right lower lobe bronchus and the very stent segments. Examination of the left include the left mainstem bronchus, left upper lobe bronchus and the left lower lobe bronchus along with the various 8 segments. No significant abnormalities identified. Bronchoscope was wedged into the right middle lobe endobronchial lavage was done. A total of 100 cc of saline was infused and 25 cc were aspirated without any major difficulties. The aspirate was cloudy and nonbloody. The flexor bronchoscope was removed. The fat was gradually weaned off. No complications. The samples were sent for microbial cultures and analysis.
[2023-10-15] MEDS: DEXTROSE 5% IN WATER 100 ML with AMIODARONE 150 MG IV ONE (17:02)
[2023-10-15] MEDS: AMIODARONE 360 MG in DEXTROSE 5% IN WATER 200 ML IV ONE (17:15)
[2023-10-15 18:55] LABS: Glucose,Whole Blood 164 mg/dL (70-110)
[2023-10-15 19:04] LABS: Appearance,Urine Clear (Clear); Bilirubin,Urine Negative (Negative); Blood,Urine Small (Negative); Color,Urine Light Yellow; Glucose,Urine (UA) Negative (Negative); Ketones,Urine Trace (Negative); Leukocyte Esterase,Urine Negative (Negative); Mucus,Urine Rare /hpf; Nitrite,Urine Negative (Negative); PH, Urine 6.5 (5.0-8.0); Protein,Urine 1+ (Negative); RBC,Urine 35 /hpf (0-5); Specific Gravity,Urine 1.027 (1.001-1.035); Urobilinogen,Urine <2.0 mg/dL (<2.0); WBC,Urine 1 /hpf (0-5)
[2023-10-15] MEDS: AMIODARONE 450 MG in DEXTROSE 5% IN WATER 250 ML IV SCH (23:15)
[2023-10-16 01:02] LABS: Glucose,Whole Blood 181 mg/dL (70-110)
[2023-10-16] MEDS ORDERED: DEXTROSE 50% SYRINGE 50 ML IVP PRN ×2 (01:08)
[2023-10-16] MEDS: INSULIN ASPART (NovoLOG) 100 UNIT/ML VIAL SQ SCH (02:02)
[2023-10-16 05:40] LABS: ABG Base Excess -3.8 mmol/L; ABG HCO3 23 mmol/L (21-25); ABG Oxygen Saturation 98.7 % (94-97); ABG PCO2 47 mmHg (35-45); ABG PO2 116 mmHg (83-108); Allen Test Performed? Yes
[2023-10-16 05:59] LABS: African American GFR (CKD) >90 (>60 ml/min/1.73 sqM); Anion Gap 4 mmol/L; Blood Urea Nitrogen 25 mg/dL (9-20); Calcium 8.4 mg/dL (8.4-10.2); Carbon Dioxide 20 mmol/L (22-30); Chloride 116 mmol/L (98-107); Glucose 166 mg/dL (74-99); Non-African American GFR(CKD) >90 (>60 ml/min/1.73 sqM); Potassium 4.4 mmol/L (3.5-5.1); Sodium 140 mmol/L (137-145)
[2023-10-16 06:06] LABS: Basophils % (A) 0 %; Eosinophils % (A) 0 %; HCT 33.8 % (39.0-53.0); HGB 10.4 gm/dL (13.0-17.5); Hypochromasia Moderate; Lymphocytes # (A) 0.4 k/uL (1.0-4.8); Lymphocytes % (A) 5 %; MCH 28.3 pg (25.0-35.0); MCHC 30.6 g/dL (31.0-37.0); MCV 92.3 fL (80.0-100.0); Mean Platelet Volume 9.5; Monocytes # (A) 0.3 k/uL (0-1.0); Monocytes % (A) 4 %; Neutrophils # (A) 7.5 k/uL (1.3-7.7); Neutrophils % (A) 91 %; Platelet Count 200 k/uL (150-450); RBC 3.66 m/uL (4.30-5.90); RDW 14.5 % (11.5-15.5); WBC 8.2 k/uL (3.8-10.6)
[2023-10-16 06:29] LABS: Glucose,Whole Blood 163 mg/dL (70-110)
--- NOTE | 2023-10-16 07:17 | XR ---
EXAMINATION TYPE: XR chest 1V portable DATE OF EXAM: 10/16/2023 COMPARISON: 10/15/2023 INDICATION: Tube placement TECHNIQUE: Single frontal view of the chest is obtained. FINDINGS: The heart size is normal. The pulmonary vasculature is prominent. Diffuse increased lung markings are present bilaterally. Endotracheal tube tip is above the enriqueta. Nasogastric tube transverses thorax with tip in the mid ab domen. Left central venous catheter tip is within the superior vena cava region. IMPRESSION: 1. Worsening diffuse increased lung markings. Correlate for pulmonary edema. 2. Lines and catheters discussed above, stable from comparison.
--- NOTE | 2023-10-16 10:43 | PN ---
PROGRESS NOTE SUBJECTIVE: Fausto is a 63-year-old gentleman with history of COPD, was admitted to hospital with COPD exacerbation. The patient is intubated, sedated, had an episode of atrial fibrillation with rapid ventricular rate last night, for which he received IV amiodarone. He is back in sinus rhythm. MEDICATIONS: Currently on. 1. Eliquis 5 b.i.d. 2. Lipitor 20 daily. 3. Toprol-XL 25 mg daily. 4. Vancomycin. OBJECTIVE: VITAL SIGNS: Heart rate is 65 beats per minute, blood pressure is 130/70. CHEST: Reveals good air entry bilaterally. HEART: Reveals first and second heart sounds. No gallop. EXTREMITIES: Revealed mild edema. Peripheral pulses are felt. LABORATORY DATA: Labs show hemoglobin of 10.4, platelet count is 200. Potassium is 4.4, creatinine is 0.7. ASSESSMENT: 1. Paroxysmal atrial fibrillation. 2. Vent requiring respiratory failure. PLAN: The will continue current medications. MMODL / IJN: [id number] /
[2023-10-16 11:35] LABS: Glucose,Whole Blood 200 mg/dL (70-110)
--- NOTE | 2023-10-16 13:28 | P.PN ---
Subjective Progress Note Date: 10/16/23 On 10/15/2023, patient is being seen for a follow-up. The patient remains intubated on the mechanical ventilator with diffuse bilateral pulmonary filtrates, likely presenting bilateral pneumonia. This morning, the patient is on propofol at 75 mcg/kg/min and the patient is also on fentanyl at 1.5 mcg/kg/ h. The patient is on assist-control mechanical ventilation at rate of 28, tidal volume of 400, FiO2 of 50% with a PEEP of 8. Peak airway pressures 32. The static airway pressure is 29. Blood gas shows a pH of 7.18 with a pCO2 of 62 and pO2 of 160. Hemodynamically, the patient remains hypotensive and currently is on norepinephrine at low-dose running at 0.04 mcg/kg/min and the patient is also on normal saline at rate of 75 cc an hour. The white cell count is at 15.3 with a hemoglobin 10.9 and a platelet count of 208. BUN is at 26 with a creatinine of 0.8 and sodium levels at 141 with a potassium level of 4.8 with a serum bicarb of 24. The chloride is at 115. The patient was receiving IV Rocephin. Cardiac rhythm is sinus. Remains on bronchodilators. Remains on steroids. Echocardiogram completed this morning a preserved LV function with an EF of around 55 to 60% without any significant valvular abnormalities. Right ventricular systolic pressure estimated to be around 38. Chest x-ray showing diffuse bilateral pulmonary infiltrates. Cultures are negative thus far. 10/16/2023, the patient is being seen for a follow-up. The patient remains sedated on propofol which is running at 75 mcg/kg/min and the patient is currently on fentanyl at 1.5 mcg/kg/h. The patient was taken off the Nimbex yesterday. Remains intubated on the mechanical ventilator. Remains on assist-control mode with rate of 20, tidal volume of 400, FiO2 of 50% with a PEEP of 8, and the patient blood gas showed pH 7.30 with a pCO2 of 47 and pO2 of 116. The bronchoscopy was done yesterday and the results of bronchial lavage are still pending. Chest x-ray showing diffuse bilateral pulm infiltrates, unchanged compared to yesterday. ET tube is in a good location. Echocardiogram was done yesterday and the patient was found to have a preserved LV function without any significant valvular abnormalities. Right ventricular systolic pressure was estimated to be at 35. No evidence of any pericardial effusion. The patient remains on Zosyn and vancomycin. Cultures are still pending for now. The patient is afebrile. The patient remains off pressors. Norepinephrine was weaned off and discontinued without any major difficulties and the patient is maintaining his own blood pressure. The patient however is on amiodarone drip at 0.5 mg/min regarding atrial fibrillation and his rate is controlled and converted into normal sinus rhythm. He remains on normal citrate of 75 cc an hour. He is on enteral feeding for nutritional support with vital high-protein at a rate of 30 cc an hour. Fluid balance is +3.1 L over the past 24 hours. Objective - Vital Signs Vital signs: Vital Signs Temp 98.9 F 10/16/23 08:00 Pulse 60 10/16/23 12:41 Resp 28 H 10/16/23 09:00 BP 138/83 10/14/23 17:00 Pulse Ox 99 10/16/23 09:00 FiO2 50 10/16/23 12:37 Intake & Output 10/15/23 10/16/23 10/16/23 18:59 06:59 18:59 Intake Total 2107.146 2246.530 1424.836 Output Total 595 625 325 Balance 5447.088 4462.530 1099.836 Weight 81.2 kg Intake: IV 1526 1500 951 Piperacillin-Tazobactam 3 125 100 .375 gm In Sodium Chloride 0.9% 100 ml @ 25 mls/hr IVPB Q12HR [facility] Rx #:[id number] Sodium Chloride 0.9% 1, 900 900 450 000 ml @ 75 mls/hr IV . [id number] [facility] Rx#:[id number] Vancomycin 1,500 mg In 501 500 501 Sodium Chloride 0.9% 500 ml 500 ml @ 167 mls/hr IVPB Q12HR [facility] Rx#: [id number] cefTRIAXone 2 gm In 0 Sodium Chloride 0.9% 50 ml @ 100 mls/hr IVPB Q24HR [facility] Rx#:[id number] Intake, IV Titration 551.146 496.530 263.836 Amount Cisatracurium 200 mg In 57.788 82.867 Sodium Chloride 0.9% 180 ml @ 1 MCG/KG/MIN 3.81 mls/hr IV .Q24H [facility] Rx#: [id number] Norepinephrine 4 mg In 113.793 16.734 Sodium Chloride 0.9% 250 ml @ 0.05 MCG/KG/MIN 12. 097 mls/hr IV .Q21H [facility] Rx#:[id number] Piperacillin-Tazobactam 3 25 .375 gm In Sodium Chloride 0.9% 100 ml @ 25 mls/hr IVPB Q8H [facility] Rx#: [id number] fentaNYL (PF). 1,000 mcg 95.726 92.869 100 In Sodium Chloride 0.9% 80 ml @ 0.5 MCG/KG/HR 3. 175 mls/hr IV .Q24H [facility] Rx#:[id number] propofoL 1,000 mg In 283.839 279.06 163.836 Empty Bag 1 bag @ 15 MCG/ KG/MIN 5.715 mls/hr IV . [id number] [facility] Rx#:[id number] Oral 50 Tube Feeding 30 190 160 Other 60 Output: Urine 595 625 325 Other: Voiding Method Indwelling Catheter Indwelling Catheter ABP, PAP, CO, CI - Last Documented Arterial Blood Pressure 129/63 - Exam Pulmonary comfortable, intubated on mechanical ventilator, sedated with propofol and fentanyl. Orogastric and orotracheal tube are both in place. Head exam was generally normal. There was no scleral icterus or corneal arcus. Mucous membranes were moist. HEENT examination is grossly unremarkable. Mucous membranes are moist. No oral lesions. Neck supple. Full range of motion. No adenopathy thyromegaly or neck vein distention. Cardiovascular examination reveals regular rhythm rate. S1-S2 normal. No S3 or S4. No discernible murmur noted. Heart sounds are distant. Lungs reveal bilateral scattered inspiratory and expiratory rhonchi. Breath sounds are equal. No crackles or wheezes. Lung sounds are diminished bilaterally and the patient has diminished breath sounds Abdominal exam revealed normal bowel sounds. The abdomen was soft, non-tender, and without masses, organomegaly, or appreciable enlargement of the abdominal aorta. Extremities are intact. No cyanosis clubbing or edema. Skin is without rash or lesion. Neurologic examination is brief but nonfocal. The patient is sedated and currently patient is calm and comfortable. - Labs CBC & Chem 7: 10/16/23 04:46 10/16/23 04:46 Labs: Abnormal Lab Results - Last 24 Hours (Table) 10/15/23 10/15/23 10/16/23 Range/Units 18:40 18:53 01:01 RBC (4.30-5.90) m/uL Hgb (13.0-17.5) gm/dL Hct (39.0-53.0) % MCHC (31.0-37.0) g/dL Lymphocytes # (1.0-4.8) k/uL ABG pH (7.35-7.45) ABG pCO2 (35-45) mmHg ABG pO2 (83-108) mmHg ABG O2 Saturation (94-97) % Chloride (98-107) mmol/L Carbon Dioxide (22-30) mmol/L BUN (9-20) mg/dL Glucose (74-99) mg/dL POC Glucose (mg/dL) 164 H 181 H (70-110) mg/dL Creatine Kinase (55-170) U/L Urine Protein 1+ H (Negative) Urine Ketones Trace H (Negative) Urine Blood Small H (Negative) Urine RBC 35 H (0-5) /hpf Urine Mucus Rare H (None) /hpf 10/16/23 10/16/23 10/16/23 Range/Units 04:46 04:46 05:40 RBC 3.66 L (4.30-5.90) m/uL Hgb 10.4 L (13.0-17.5) gm/dL Hct 33.8 L (39.0-53.0) % MCHC 30.6 L (31.0-37.0) g/dL Lymphocytes # 0.4 L (1.0-4.8) k/uL ABG pH 7.30 L (7.35-7.45) ABG pCO2 47 H (35-45) mmHg ABG pO2 116 H (83-108) mmHg ABG O2 Saturation 98.7 H (94-97) % Chloride 116 H (98-107) mmol/L Carbon Dioxide 20 L (22-30) mmol/L BUN 25 H (9-20) mg/dL Glucose 166 H (74-99) mg/dL POC Glucose (mg/dL) (70-110) mg/dL Creatine Kinase (55-170) U/L Urine Protein (Negative) Urine Ketones (Negative) Urine Blood (Negative) Urine RBC (0-5) /hpf Urine Mucus (None) /hpf 10/16/23 10/16/23 10/16/23 Range/Units 06:27 11:33 12:10 RBC (4.30-5.90) m/uL Hgb (13.0-17.5) gm/dL Hct (39.0-53.0) % MCHC (31.0-37.0) g/dL Lymphocytes # (1.0-4.8) k/uL ABG pH (7.35-7.45) ABG pCO2 (35-45) mmHg ABG pO2 (83-108) mmHg ABG O2 Saturation (94-97) % Chloride (98-107) mmol/L Carbon Dioxide (22-30) mmol/L BUN (9-20) mg/dL Glucose (74-99) mg/dL POC Glucose (mg/dL) 163 H 200 H (70-110) mg/dL Creatine Kinase 45 L (55-170) U/L Urine Protein (Negative) Urine Ketones (Negative) Urine Blood (Negative) Urine RBC (0-5) /hpf Urine Mucus (None) /hpf Microbiology - Last 24 Hours (Table) 10/15/23 11:10 Gram Stain - Preliminary Bronchoalviolar Lavage - Right 10/12/23 18:57 Blood Culture - Preliminary Blood 10/12/23 18:40 Blood Culture - Preliminary Blood Assessment and Plan Plan: Acute exacerbation of chronic COPD, with development of diffuse bilateral pulmonary infiltrates with rapid progression over the past 24 to 48 hours with subsequent respiratory failure requiring intubation mechanical ventilation. At this point in time the patient has diffuse bilateral pulmonary infiltrates, intubated on mechanical ventilator. Suspected bacterial infection. Procalcitonin level was elevated at the time of admission at 2.2. In addition, the patient had elevated white cell count. The antibiotic coverage has been switched to a combination of Zosyn and vancomycin. Bronchoscopy endobronchial lavage was done yesterday and results are still pending for now. Chest x-ray findings are essentially unchanged. Oxygenation is stable. Acute leukocytosis, improved and the white cell count is down to 8.2. Acute hypercapnic respiratory failure Acute hypoxic respiratory failure Hypotension, likely septic in nature and the patient is currently off pressors Approximately fibrillation currently on amiodarone drip at 0.5 mg/min. Previous history of COPD exac progressive bilateral pulmonary infiltrates with rapiderbation requiring intubation and mechanical ventilatory support on 05/19/2023. The patient was extubated on 05/23/2023 Previous history of pseudomonal growth in the sputum rule out pseudomonal tracheal bronchitis/pneumonia. 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 Previous serum Aspergillus antibodies obtained in April 2023 was negative Chronic and ongoing tobacco dependence of nearly 50 years History of alcoholism Marijuana use History of depression Plan Continue ventilator support Awaiting the results of the bronchoscopy endobronchial lavage, suspecting recurrent pseudomonal infection Continue IV Zosyn and vancomycin Procalcitonin level was elevated. The general urine antigen is negative. Keep the patient sedated with a combination of propofol and fentanyl and the patient is currently off Nimbex IV fluids are currently running at 75 cc an hour of normal saline. Continue enteral feeding for nutritional support Check the viral screen including RSV, influenza and COVID-19 Wean off norepinephrine maintaining mean arterial pressure above 65 The patient will be kept intubated on mechanical ventilator. Daily chest x-rays Echocardiogram to be done today to evaluate LV function, this was noted and the patient has a preserved LV function without any valvular abnormalities. Will continue to follow and make further recommendation based on his progress. This evaluation was done more than 30 minutes excluding time to any procedures. Condition is critical. Will continue to follow. Time with Patient: Greater than 30
[2023-10-16 18:57] LABS: Glucose,Whole Blood 174 mg/dL (70-110)
[2023-10-16 20:07] LABS: ABG Base Excess -4.4 mmol/L; ABG HCO3 23 mmol/L (21-25); ABG Oxygen Saturation 98.9 % (94-97); ABG PCO2 54 mmHg (35-45); ABG PH 7.24 (7.35-7.45); ABG PO2 128 mmHg (83-108); Allen Test Performed? Yes
[2023-10-16] MEDS: AMIODARONE 200 MG TAB PO SCH (21:07)
--- NOTE | 2023-10-16 22:18 | P.PN ---
Subjective Progress Note Date: 10/15/23 Patient is a 63-year-old male with a past medical history of COPD on home oxygen, hypertension, chronic back pain, history of cervical fusion surgery, depression currently everyday smoker and marijuana use. Patient presents to ER with complaints of worsening shortness of breath anxiety, chills and fever. Patient was tachycardic and tachypneic on admission. States that he has subjective fevers. Cough and congestion and unable to bring out any sputum. No complaints of chest pain. No nausea vomiting abdominal pain or diarrhea. No headache or dizziness or neck stiffness. Chest x-ray showed perihilar infiltrates in the deflector lobar pneumonia. Correlate clinically and appropriate studies are recommended. EKG showed atrial fibrillation with rapid ventricular response. Patient had a cardiac catheterization on 09/14/2023 showed relatively normal coronaries and normal left sided filling pressures. Laboratory test showed WBC 23.7 hemoglobin 14.2 and platelets 265 Sodium 141 potassium 3.8 chloride 104 bicarb is 22 BUN 16 and creatinine 0.94 and blood sugar 89 and lactic acid 4.7 and magnesium 1.5 [place] Elevated procalcitonin level 2.4. Troponin x 1 negative proBNP 262 10/14/2023 Patient is awake alert and still having shortness of breath. Oxygen requirement increased and patient is placed on 100% nonrebreather. Also tachypneic. No complaints of chest pain. No fever no chills. Patient is being continued on IV antibiotics ceftriaxone and azithromycin. Patient is also on DuoNebs and IV steroids. ABG showed pH 7.28 pCO2 48 and pO2 133. Other laboratory data showed WBC 18.1 hemoglobin 11.9 and platelets 192 sodium 139 potassium 4.2 chloride 114 bicarb is 22 BUN 28 and creatinine 0.69 and blood sugar is 146. Patient is being transferred to MICU due to worsening respiratory status and patient needs intubation. 10/15/2023 Patient is in the MICU. Intubated and on mechanical ventilator. Patient is also requiring pressor support. Due to worsening respiratory disease patient was transferred to MICU yesterday. Currently on assist-control with respiratory 28 tidal volume 400 FiO2 50% and PEEP of 8. Laboratory data showed WBC 15.3 hemoglobin 10.9 and platelets 208 Sodium 141 potassium 4.8 chloride 115 bicarb is 24 BUN 26 and creatinine 0.82 and blood sugar 151. Antibiotics changed to vancomycin and Zosyn. Patient is also on anticoagulation with Eliquis due to new onset A-fib. Cardiology and pulmonary is on board. Current medications reviewed. Objective - Vital Signs Vital signs: Vital Signs Temp 98.9 F 10/15/23 08:00 Pulse 88 10/15/23 10:45 Resp 28 H 10/15/23 10:45 BP 138/83 10/14/23 17:00 Pulse Ox 100 10/15/23 10:45 FiO2 50 10/15/23 09:51 Intake & Output 10/14/23 10/15/23 10/15/23 18:59 06:59 18:59 Intake Total 7175.385 7837.280 495.660 Output Total 345 400 170 Balance 145.257 4301.280 325.660 Weight 81.7 kg Intake: IV 1050 1450 300 0.9 50 0.9 NACL bolus 1000 1000 Sodium Chloride 0.9% 1, 450 300 000 ml @ 75 mls/hr IV . [id number] [facility] Rx#:[id number] cefTRIAXone 2 gm In 0 Sodium Chloride 0.9% 50 ml @ 100 mls/hr IVPB Q24HR [facility] Rx#:[id number] Intake, IV Titration 41.081 667.280 195.660 Amount Cisatracurium 200 mg In 46.994 46.485 Sodium Chloride 0.9% 180 ml @ 1 MCG/KG/MIN 3.81 mls/hr IV .Q24H [facility] Rx#: [id number] Norepinephrine 4 mg In 9.678 155.734 54.398 Sodium Chloride 0.9% 250 ml @ 0.05 MCG/KG/MIN 12. 097 mls/hr IV .Q21H [facility] Rx#:[id number] Sodium Chloride 0.9% 1, 75 000 ml @ 75 mls/hr IV . [id number] [facility] Rx#:[id number] fentaNYL (PF). 1,000 mcg 1.429 64.294 In Sodium Chloride 0.9% 80 ml @ 0.5 MCG/KG/HR 3. 175 mls/hr IV .Q24H [facility] Rx#:[id number] propofoL 1,000 mg In 29.974 325.258 94.777 Empty Bag 1 bag @ 15 MCG/ KG/MIN 5.715 mls/hr IV . [id number] [facility] Rx#:[id number] Oral 0 Output: Urine 345 400 170 Other: Voiding Method Indwelling Catheter Indwelling Catheter ABP, PAP, CO, CI - Last Documented Arterial Blood Pressure 99/50 - Exam PHYSICAL EXAMINATION: Patient is is currently intubated and on mechanical ventilator... HEENT: Normocephalic. Neck is supple. Pupils reactive. Nostrils clear. Oral cavity is moist. Neck reveals no JVD, carotid bruits, or thyromegaly. CHEST EXAMINATION: Trachea is central. Symmetrical expansion. Bilateral coarse breath sounds and scattered rhonchi. CARDIAC: Normal S1, S2 with no gallops. No murmurs ABDOMEN: Soft. Bowel sounds normal. No organomegaly. No abdominal bruits. Extremities: reveal no edema. No clubbing or cyanosis Neurologically sedated and intubated. No gross focal deficits noted Skin: No rash or skin lesions. Psychiatric: Could not be assessed completely Musculoskeletal: No joint swelling or deformity. - Labs CBC & Chem 7: 10/16/23 04:46 10/16/23 04:46 Labs: Abnormal Lab Results - Last 24 Hours (Table) 10/14/23 10/14/23 10/14/23 Range/Units 16:05 17:07 17:07 WBC 18.1 H (3.8-10.6) k/uL RBC 4.29 L (4.30-5.90) m/uL Hgb 11.9 L (13.0-17.5) gm/dL Hct 38.8 L (39.0-53.0) % MCHC 30.6 L (31.0-37.0) g/dL Neutrophils # 17.0 H (1.3-7.7) k/uL Lymphocytes # 0.5 L (1.0-4.8) k/uL ABG pH (7.35-7.45) ABG pCO2 (35-45) mmHg ABG pO2 48 L* (83-108) mmHg ABG O2 Saturation 84.1 L (94-97) % Chloride 114 H (98-107) mmol/L BUN 28 H (9-20) mg/dL Glucose 146 H (74-99) mg/dL Calcium (8.4-10.2) mg/dL 10/14/23 10/15/23 10/15/23 Range/Units 17:34 05:04 05:04 WBC 15.3 H (3.8-10.6) k/uL RBC 3.84 L (4.30-5.90) m/uL Hgb 10.9 L (13.0-17.5) gm/dL Hct 35.3 L (39.0-53.0) % MCHC (31.0-37.0) g/dL Neutrophils # 14.7 H (1.3-7.7) k/uL Lymphocytes # 0.3 L (1.0-4.8) k/uL ABG pH 7.28 L (7.35-7.45) ABG pCO2 48 H (35-45) mmHg ABG pO2 133 H (83-108) mmHg ABG O2 Saturation 98.7 H (94-97) % Chloride 115 H (98-107) mmol/L BUN 26 H (9-20) mg/dL Glucose 151 H (74-99) mg/dL Calcium 8.3 L (8.4-10.2) mg/dL 10/15/23 Range/Units 06:10 WBC (3.8-10.6) k/uL RBC (4.30-5.90) m/uL Hgb (13.0-17.5) gm/dL Hct (39.0-53.0) % MCHC (31.0-37.0) g/dL Neutrophils # (1.3-7.7) k/uL Lymphocytes # (1.0-4.8) k/uL ABG pH 7.18 L* (7.35-7.45) ABG pCO2 62 H (35-45) mmHg ABG pO2 160 H (83-108) mmHg ABG O2 Saturation 99.2 H (94-97) % Chloride (98-107) mmol/L BUN (9-20) mg/dL Glucose (74-99) mg/dL Calcium (8.4-10.2) mg/dL Microbiology - Last 24 Hours (Table) 10/12/23 18:57 Blood Culture - Preliminary Blood 10/12/23 18:40 Blood Culture - Preliminary Blood Assessment and Plan Assessment: Acute on chronic hypoxemic respiratory failure secondary to COPD and pneumonia. Patient was on 100% nonrebreather currently requiring mechanical ventilator. Acute COPD exacerbation Bilateral pneumonia Sepsis secondary to pneumonia New onset A-fib with RVR as per EKG on admission Ongoing nicotine addiction GERD Hypertension Prior history of pneumonia Depression Marijuana use COPD on home oxygen as needed DVT prophylaxis with heparin subcu Plan: Patient is in ICU. Continue with telemetry monitoring. Antibiotic changed to vancomycin and Zosyn.. Urine Legionella antigen is negative. Follow-up blood cultures and sputum cultures. Patient is being continued on IV Solu-Medrol, DuoNebs and oxygen supplementation. Replace electrolytes. Lactic acid level improved with hydration. Monitor for withdrawal symptoms. Patient was started on anticoagulation with Eliquis due to new onset atrial fibrillation.. Continue with metoprolol. Cardiology and pulmonary is on board. Continue to follow closely. Prognosis is guarded. Time with Patient: Greater than 30
[2023-10-17 00:08] LABS: Glucose,Whole Blood 222 mg/dL (70-110)
[2023-10-17] MEDS: methylPREDNISolone SOD SUCCI 125 MG/2 ML VIAL IV SCH (00:56)
[2023-10-17 04:26] LABS: Basophils % (A) 0 %; Eosinophils % (A) 0 %; HCT 34.4 % (39.0-53.0); HGB 10.5 gm/dL (13.0-17.5); Hypochromasia Marked; Lymphocytes # (A) 0.3 k/uL (1.0-4.8); Lymphocytes % (A) 4 %; MCH 28.4 pg (25.0-35.0); MCHC 30.6 g/dL (31.0-37.0); MCV 92.8 fL (80.0-100.0); Mean Platelet Volume 9.5; Monocytes # (A) 0.4 k/uL (0-1.0); Monocytes % (A) 5 %; Neutrophils # (A) 7.5 k/uL (1.3-7.7); Neutrophils % (A) 90 %; Platelet Count 201 k/uL (150-450); RBC 3.71 m/uL (4.30-5.90); RDW 14.3 % (11.5-15.5); WBC 8.3 k/uL (3.8-10.6)
[2023-10-17 04:53] LABS: African American GFR (CKD) >90 (>60 ml/min/1.73 sqM); Anion Gap 4 mmol/L; Blood Urea Nitrogen 30 mg/dL (9-20); Calcium 8.3 mg/dL (8.4-10.2); Carbon Dioxide 22 mmol/L (22-30); Chloride 118 mmol/L (98-107); Glucose 192 mg/dL (74-99); Non-African American GFR(CKD) >90 (>60 ml/min/1.73 sqM); Potassium 4.1 mmol/L (3.5-5.1); Sodium 144 mmol/L (137-145)
[2023-10-17 05:54] LABS: ABG Base Excess -4.1 mmol/L; ABG HCO3 24 mmol/L (21-25); ABG Oxygen Saturation 98.3 % (94-97); ABG PCO2 55 mmHg (35-45); ABG PH 7.24 (7.35-7.45); ABG PO2 108 mmHg (83-108); Allen Test Performed? Yes
[2023-10-17 06:08] LABS: Glucose,Whole Blood 209 mg/dL (70-110)
--- NOTE | 2023-10-17 07:17 | XR ---
EXAMINATION TYPE: XR chest 1V portable DATE OF EXAM: 10/17/2023 COMPARISON: 10/16/2023 INDICATION: Tube placement TECHNIQUE: Single frontal view of the chest is obtained. FINDINGS: The heart size is normal. The pulmonary vasculature is prominent. There is increased diffuse opacity over the bilateral lung interiano. This may have slight improvement o lee ann the interval. Endotracheal tube tip is 2.4 cm above enriqueta. Nasogastric tube transverses the thorax. Left central v enous catheter tip is in the superior vena cava region. IMPRESSION: 1. Diffuse increased lung markings improved from comparison. 2. Lines and catheters discussed above.
--- NOTE | 2023-10-17 09:10 | PN ---
PROGRESS NOTE This is a 63-year-old gentleman that we are following because of atrial fibrillation. He remains intubated, sedated, and on the vent and is in sinus rhythm. PHYSICAL EXAMINATION: VITAL SIGNS: Heart rate is 80 beats per minute. Blood pressure is 110/62, respiratory rate is 18. CHEST: Reveals diminished air entry at the bases. HEART: Reveals first and second heart sounds. No gallop. EXTREMITIES: Reveals mild edema. Peripheral pulses are felt. LABS: Show hemoglobin of 10.5 potassium is 4.1, creatinine 0.8. ASSESSMENT: 1. Vent requiring respiratory failure. 2. Paroxysmal atrial fibrillation. PLAN: I will continue the patient on Eliquis and amiodarone. MMODL / IJN: [id number] /
[2023-10-17] MEDS: VANCOMYCIN TROUGH DUE 1 EACH MISC MISCELLANE ONE (09:26)
[2023-10-17] MEDS: FUROSEMIDE 10 MG/ML 4 ML VIAL IV SCH (10:06)
[2023-10-17 11:43] LABS: Glucose,Whole Blood 232 mg/dL (70-110)
--- NOTE | 2023-10-17 14:27 | P.PN ---
Subjective Progress Note Date: 10/17/23 On 10/15/2023, patient is being seen for a follow-up. The patient remains intubated on the mechanical ventilator with diffuse bilateral pulmonary filtrates, likely presenting bilateral pneumonia. This morning, the patient is on propofol at 75 mcg/kg/min and the patient is also on fentanyl at 1.5 mcg/kg/ h. The patient is on assist-control mechanical ventilation at rate of 28, tidal volume of 400, FiO2 of 50% with a PEEP of 8. Peak airway pressures 32. The static airway pressure is 29. Blood gas shows a pH of 7.18 with a pCO2 of 62 and pO2 of 160. Hemodynamically, the patient remains hypotensive and currently is on norepinephrine at low-dose running at 0.04 mcg/kg/min and the patient is also on normal saline at rate of 75 cc an hour. The white cell count is at 15.3 with a hemoglobin 10.9 and a platelet count of 208. BUN is at 26 with a creatinine of 0.8 and sodium levels at 141 with a potassium level of 4.8 with a serum bicarb of 24. The chloride is at 115. The patient was receiving IV Rocephin. Cardiac rhythm is sinus. Remains on bronchodilators. Remains on steroids. Echocardiogram completed this morning a preserved LV function with an EF of around 55 to 60% without any significant valvular abnormalities. Right ventricular systolic pressure estimated to be around 38. Chest x-ray showing diffuse bilateral pulmonary infiltrates. Cultures are negative thus far. 10/16/2023, the patient is being seen for a follow-up. The patient remains sedated on propofol which is running at 75 mcg/kg/min and the patient is currently on fentanyl at 1.5 mcg/kg/h. The patient was taken off the Nimbex yesterday. Remains intubated on the mechanical ventilator. Remains on assist-control mode with rate of 20, tidal volume of 400, FiO2 of 50% with a PEEP of 8, and the patient blood gas showed pH 7.30 with a pCO2 of 47 and pO2 of 116. The bronchoscopy was done yesterday and the results of bronchial lavage are still pending. Chest x-ray showing diffuse bilateral pulm infiltrates, unchanged compared to yesterday. ET tube is in a good location. Echocardiogram was done yesterday and the patient was found to have a preserved LV function without any significant valvular abnormalities. Right ventricular systolic pressure was estimated to be at 35. No evidence of any pericardial effusion. The patient remains on Zosyn and vancomycin. Cultures are still pending for now. The patient is afebrile. The patient remains off pressors. Norepinephrine was weaned off and discontinued without any major difficulties and the patient is maintaining his own blood pressure. The patient however is on amiodarone drip at 0.5 mg/min regarding atrial fibrillation and his rate is controlled and converted into normal sinus rhythm. He remains on normal citrate of 75 cc an hour. He is on enteral feeding for nutritional support with vital high-protein at a rate of 30 cc an hour. Fluid balance is +3.1 L over the past 24 hours. On today's evaluation of 10/17/2023, seen the patient for a follow-up. Remains intubated on mechanical ventilator. This morning, the patient is on propofol running at 75 mcg/kg/min and fentanyl at 2 mcg/kg/h. The patient is also on Nimbex for paralysis as the patient was quite asynchronous with mechanical ventilator and the patient was peak pressuring yesterday Nimbex is running at 2 mcg/kg/min. The patient is currently on assist-control mode of mechanical ventilation at rate of 28, tidal volume of 350, FiO2 of 50% and PEEP of 6. The blood gas from today shows a pH of 7.24 with a pCO2 of 55 and a pO2 of 108. Chest x-ray from today shows diffuse bilateral pulmonary filtrates with some limited improvement in patient compared to yesterday. Bronchoscopy and bronchial lavage was done and the microbial culture is still pending is negative thus far and the patient remains on a combination of Zosyn and vancomycin. The vancomycin trough level was at 21. BUN is at 30 with a creatinine of 0.8 and sodium level at 144. WBC count is 8.3 with a hemoglobin 10.5 and a platelet count of 201. The patient remains on vital high-protein at 30 to 45 cc an hour. Fluid balance is +3.6 L over the past 24 hours. Meanwhile, the patient had an episode of atrial fibrillation yesterday with rapid ventricular response. The patient was loaded with amiodarone and currently is back in normal sinus rhythm. Milrinone is running at 200 mg p.o. twice a day. The patient is also on anticoagulation with Eliquis 5 mg p.o. twice a day. The patient on Toprol-XL 25 mg p.o. daily. IV Solu-Medrol was also added. Objective - Vital Signs Vital signs: Vital Signs Temp 98.4 F 10/17/23 04:00 Pulse 78 10/17/23 08:46 Resp 28 H 10/17/23 07:00 BP 109/69 10/17/23 06:00 Pulse Ox 99 10/17/23 07:00 FiO2 50 10/17/23 08:30 Intake & Output 10/16/23 10/17/23 10/17/23 18:59 06:59 18:59 Intake Total 2669.659 2823.377 120 Output Total 675 1202 100 Balance 3594.227 7734.377 20 Weight 85.7 kg Intake: IV 1526 1425 75 Piperacillin-Tazobactam 3 125 25 .375 gm In Sodium Chloride 0.9% 100 ml @ 25 mls/hr IVPB Q12HR [facility] Rx #:[id number] Sodium Chloride 0.9% 1, 900 900 75 000 ml @ 75 mls/hr IV . [id number] [facility] Rx#:[id number] Vancomycin 1,500 mg In 501 500 Sodium Chloride 0.9% 500 ml 500 ml @ 167 mls/hr IVPB Q12HR [facility] Rx#: [id number] Intake, IV Titration 723.659 768.377 Amount Amiodarone 450 mg In 242.505 Dextrose 5% in Water 250 ml @ 0.5 MG/MIN 16.667 mls/hr IV .Q15H [facility] Rx#: [id number] Cisatracurium 200 mg In 0 10.414 Sodium Chloride 0.9% 180 ml @ 1 MCG/KG/MIN 3.81 mls/hr IV .Q24H [facility] Rx#: [id number] Vancomycin 1,500 mg In 500 Sodium Chloride 0.9% 500 ml 500 ml @ 167 mls/hr IVPB Q12HR [facility] Rx#: [id number] fentaNYL (PF). 1,000 mcg 180.169 85.094 In Sodium Chloride 0.9% 80 ml @ 0.5 MCG/KG/HR 3. 175 mls/hr IV .Q24H [facility] Rx#:[id number] propofoL 1,000 mg In 300.985 172.869 Empty Bag 1 bag @ 15 MCG/ KG/MIN 5.715 mls/hr IV . [id number] [facility] Rx#:[id number] Oral 50 Tube Feeding 370 540 45 Other 90 Output: Urine 675 1202 100 Other: Voiding Method Indwelling Catheter Indwelling Catheter ABP, PAP, CO, CI - Last Documented Arterial Blood Pressure 118/57 - Exam Pulmonary comfortable, intubated on mechanical ventilator, sedated with propofol and fentanyl. Orogastric and orotracheal tube are both in place. The patient is also paralyzed with Nimbex. Head exam was generally normal. There was no scleral icterus or corneal arcus. Mucous membranes were moist. HEENT examination is grossly unremarkable. Mucous membranes are moist. No oral lesions. Neck supple. Full range of motion. No adenopathy thyromegaly or neck vein distention. Cardiovascular examination reveals regular rhythm rate. S1-S2 normal. No S3 or S4. No discernible murmur noted. Heart sounds are distant. Lungs reveal bilateral scattered inspiratory and expiratory rhonchi. Breath sounds are equal. No crackles or wheezes. Lung sounds are diminished bilaterally and the patient has diminished breath sounds Abdominal exam revealed normal bowel sounds. The abdomen was soft, non-tender, and without masses, organomegaly, or appreciable enlargement of the abdominal aorta. Extremities are intact. No cyanosis clubbing or edema. Skin is without rash or lesion. Neurologic examination is brief but nonfocal. The patient is sedated and currently patient is calm and comfortable. - Labs CBC & Chem 7: 10/17/23 04:00 10/17/23 04:07 Labs: Abnormal Lab Results - Last 24 Hours (Table) 10/16/23 10/16/23 10/16/23 Range/Units 11:33 12:10 18:54 RBC (4.30-5.90) m/uL Hgb (13.0-17.5) gm/dL Hct (39.0-53.0) % MCHC (31.0-37.0) g/dL Lymphocytes # (1.0-4.8) k/uL ABG pH (7.35-7.45) ABG pCO2 (35-45) mmHg ABG pO2 (83-108) mmHg ABG O2 Saturation (94-97) % Chloride (98-107) mmol/L BUN (9-20) mg/dL Glucose (74-99) mg/dL POC Glucose (mg/dL) 200 H 174 H (70-110) mg/dL Calcium (8.4-10.2) mg/dL Magnesium (1.6-2.3) mg/dL Creatine Kinase 45 L (55-170) U/L 10/16/23 10/17/23 10/17/23 Range/Units 19:59 00:07 04:00 RBC 3.71 L (4.30-5.90) m/uL Hgb 10.5 L (13.0-17.5) gm/dL Hct 34.4 L (39.0-53.0) % MCHC 30.6 L (31.0-37.0) g/dL Lymphocytes # 0.3 L (1.0-4.8) k/uL ABG pH 7.24 L (7.35-7.45) ABG pCO2 54 H (35-45) mmHg ABG pO2 128 H (83-108) mmHg ABG O2 Saturation 98.9 H (94-97) % Chloride (98-107) mmol/L BUN (9-20) mg/dL Glucose (74-99) mg/dL POC Glucose (mg/dL) 222 H (70-110) mg/dL Calcium (8.4-10.2) mg/dL Magnesium (1.6-2.3) mg/dL Creatine Kinase (55-170) U/L 10/17/23 10/17/23 10/17/23 Range/Units 04:07 04:07 05:57 RBC (4.30-5.90) m/uL Hgb (13.0-17.5) gm/dL Hct (39.0-53.0) % MCHC (31.0-37.0) g/dL Lymphocytes # (1.0-4.8) k/uL ABG pH 7.24 L (7.35-7.45) ABG pCO2 55 H (35-45) mmHg ABG pO2 (83-108) mmHg ABG O2 Saturation 98.3 H (94-97) % Chloride 118 H (98-107) mmol/L BUN 30 H (9-20) mg/dL Glucose 192 H (74-99) mg/dL POC Glucose (mg/dL) (70-110) mg/dL Calcium 8.3 L (8.4-10.2) mg/dL Magnesium 2.4 H (1.6-2.3) mg/dL Creatine Kinase (55-170) U/L 10/17/23 Range/Units 06:07 RBC (4.30-5.90) m/uL Hgb (13.0-17.5) gm/dL Hct (39.0-53.0) % MCHC (31.0-37.0) g/dL Lymphocytes # (1.0-4.8) k/uL ABG pH (7.35-7.45) ABG pCO2 (35-45) mmHg ABG pO2 (83-108) mmHg ABG O2 Saturation (94-97) % Chloride (98-107) mmol/L BUN (9-20) mg/dL Glucose (74-99) mg/dL POC Glucose (mg/dL) 209 H (70-110) mg/dL Calcium (8.4-10.2) mg/dL Magnesium (1.6-2.3) mg/dL Creatine Kinase (55-170) U/L Microbiology - Last 24 Hours (Table) 10/15/23 11:10 Acid Fast Bacilli Smear - Preliminary Bronchoalviolar Lavage - Right 10/15/23 11:10 Gram Stain - Preliminary Bronchoalviolar Lavage - Right Assessment and Plan Plan: Acute exacerbation of chronic COPD, with development of diffuse bilateral pulmonary infiltrates with rapid progression over the past 24 to 48 hours with subsequent respiratory failure requiring intubation mechanical ventilation. At this point in time the patient has diffuse bilateral pulmonary infiltrates, intubated on mechanical ventilator. Suspected bacterial infection. Procalcitonin level was elevated at the time of admission at 2.2. In addition, the patient had elevated white cell count. The antibiotic coverage has been switched to a combination of Zosyn and vancomycin. Bronchoscopy endobronchial lavage was done and the results are not showing any microbial growth. The patient is afebrile. No significant leukocytosis. Remains on same antibiotic coverage. Limited improvement in chest x-ray findings on today's evaluation. Meanwhile, the patient remains sedated and paralyzed. Acute leukocytosis, improved and the white cell count is improved Acute hypercapnic respiratory failure Acute hypoxic respiratory failure Hypotension, likely septic in nature and the patient is currently off pressors Paroxysmal A-fib, currently back in normal sinus rhythm and the patient is currently on Toprol-XL 25 mg p.o. daily and amiodarone 200 mg p.o. twice a day and anticoagulation with Eliquis. Previous history of COPD exac progressive bilateral pulmonary infiltrates with rapiderbation requiring intubation and mechanical ventilatory support on 05/19/2023. The patient was extubated on 05/23/2023 Previous history of pseudomonal growth in the sputum rule out pseudomonal tracheal bronchitis/pneumonia. 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 Previous serum Aspergillus antibodies obtained in April 2023 was negative Chronic and ongoing tobacco dependence of nearly 50 years History of alcoholism Marijuana use History of depression Plan Continue ventilator support, no ventilator changes for today Continue propofol and fentanyl Give the patient a paralytic holiday Awaiting the results of the bronchoscopy endobronchial lavage, suspecting recurrent pseudomonal infection, results are negative thus far Continue IV Zosyn and vancomycin Procalcitonin level was elevated. Change IV fluids to KVO Start the patient on Lasix 40 mg IV every 12 hours Continue enteral feeding for nutritional support Daily chest x-rays Echocardiogram to be done today to evaluate LV function, this was noted and the patient has a preserved LV function without any valvular abnormalities. Will continue to follow and make further recommendation based on his progress. This evaluation was done more than 30 minutes excluding time to any procedures. Condition is critical. Will continue to follow. Time with Patient: Greater than 30
[2023-10-17 17:55] LABS: Glucose,Whole Blood 167 mg/dL (70-110)
[2023-10-17 21:32] LABS: HCT 36.7 % (39.0-53.0); HGB 11.2 gm/dL (13.0-17.5); Hypochromasia Slight; MCH 27.8 pg (25.0-35.0); MCHC 30.4 g/dL (31.0-37.0); MCV 91.3 fL (80.0-100.0); Mean Platelet Volume 9.7; Platelet Count 204 k/uL (150-450); RBC 4.02 m/uL (4.30-5.90); RDW 14.3 % (11.5-15.5); WBC 11.9 k/uL (3.8-10.6)
[2023-10-17 21:46] LABS: African American GFR (CKD) >90 (>60 ml/min/1.73 sqM); Anion Gap 4 mmol/L; Blood Urea Nitrogen 39 mg/dL (9-20); Calcium 8.6 mg/dL (8.4-10.2); Carbon Dioxide 25 mmol/L (22-30); Chloride 115 mmol/L (98-107); Glucose 163 mg/dL (74-99); Magnesium 2.2 mg/dL (1.6-2.3); Non-African American GFR(CKD) >90 (>60 ml/min/1.73 sqM); Sodium 144 mmol/L (137-145)
[2023-10-17 22:47] LABS: ABG Base Excess 1.6 mmol/L; ABG HCO3 28 mmol/L (21-25); ABG Oxygen Saturation 98.7 % (94-97); ABG PCO2 52 mmHg (35-45); ABG PH 7.34 (7.35-7.45); ABG PO2 102 mmHg (83-108); Allen Test Performed? Yes
[2023-10-17 23:21] LABS: Glucose,Whole Blood 201 mg/dL (70-110)
[2023-10-17 23:54] LABS: Glucose,Whole Blood 230 mg/dL (70-110)
[2023-10-18 05:07] LABS: ABG Base Excess 3.7 mmol/L; ABG HCO3 30 mmol/L (21-25); ABG Oxygen Saturation 97.7 % (94-97); ABG PCO2 54 mmHg (35-45); ABG PH 7.36 (7.35-7.45); ABG PO2 89 mmHg (83-108); Allen Test Performed? Yes
[2023-10-18 05:53] LABS: Glucose,Whole Blood 192 mg/dL (70-110)
[2023-10-18 07:18] LABS: Basophils % (A) 0 %; Eosinophils # (A) 0.1 k/uL (0-0.7); Eosinophils % (A) 1 %; HCT 35.3 % (39.0-53.0); HGB 11.1 gm/dL (13.0-17.5); Hypochromasia Slight; Lymphocytes # (A) 0.4 k/uL (1.0-4.8); Lymphocytes % (A) 5 %; MCH 28.4 pg (25.0-35.0); MCHC 31.6 g/dL (31.0-37.0); MCV 89.9 fL (80.0-100.0); Mean Platelet Volume 9.4; Monocytes # (A) 0.4 k/uL (0-1.0); Monocytes % (A) 5 %; Neutrophils # (A) 7.6 k/uL (1.3-7.7); Neutrophils % (A) 89 %; Platelet Count 185 k/uL (150-450); RBC 3.93 m/uL (4.30-5.90); RDW 14.3 % (11.5-15.5); WBC 8.6 k/uL (3.8-10.6)
[2023-10-18 07:24] LABS: African American GFR (CKD) >90 (>60 ml/min/1.73 sqM); Anion Gap 2 mmol/L; Blood Urea Nitrogen 43 mg/dL (9-20); Calcium 8.3 mg/dL (8.4-10.2); Carbon Dioxide 29 mmol/L (22-30); Chloride 113 mmol/L (98-107); Glucose 206 mg/dL (74-99); Non-African American GFR(CKD) >90 (>60 ml/min/1.73 sqM); Potassium 3.5 mmol/L (3.5-5.1); Sodium 144 mmol/L (137-145)
--- NOTE | 2023-10-18 08:06 | P.PN ---
Subjective Progress Note Date: 10/18/23 Principal diagnosis: Paroxysmal atrial fibrillation The patient is a pleasant 63-year-old gentleman with a past medical history significant for COPD who was admitted to the hospital with acute hypoxic respiratory failure secondary to COPD exacerbation and heart failure with pres erved ejection fraction exacerbation. He was noted to be in atrial fibrillation. Subsequently he converted to normal sinus mechanism. October 18, 2023 The patient was seen and evaluated this morning. He remains intubated on mechanical ventilation. He is hemodynamically stable. He remains in sinus mechanism with atrial bigeminy and ventricular bigeminy and short runs of nonsustained ventricular tachycardia but his potassium has been low which has been replaced this morning. The echo showed normal LV systolic function. He is on oral anticoagulation. He is also on metoprolol and he is on amiodarone orally. He remains in failure and continues to be on Lasix IV with a chest x- ray this morning continues to be wet and he has been making significant amount of urine on the current dose of Lasix IV. The examination is remarkable for bilateral lower extremities edema and diminished breathing sounds bilaterally Assessment Acute hypoxic respiratory failure secondary to COPD exacerbation and CHF exacerbation Persistent atrial fibrillation but currently the patient has been maintaining normal sinus mechanism Atrial bigeminy and ventricular bigeminy and short runs of nonsustained ventricular tachycardia Electrolytes imbalance with hypokalemia Multiple comorbid conditions Plan Replace the potassium Make sure the lesion is within normal limits and replace if we need to Continue the current medical regimen including beta-david and amiodarone and oral anticoagulation Continue IV Lasix and the patient continues to be wet Continue monitor the kidney function and electrolytes Follow-up with the patient Objective - Vital Signs Vital signs: Vital Signs Temp 100.0 F H 10/18/23 04:00 Pulse 101 H 10/18/23 07:00 Resp 28 H 10/18/23 07:00 BP 109/69 10/17/23 06:00 Pulse Ox 98 10/18/23 07:00 FiO2 50 10/18/23 08:00 Intake & Output 10/17/23 10/18/23 10/18/23 18:59 06:59 18:59 Intake Total 2308.429 1363.148 65 Output Total 3925 4725 250 Balance -1616.571 -3361.852 -185 Weight 84.2 kg Intake: IV 1176 290 20 Piperacillin-Tazobactam 3 125 50 .375 gm In Sodium Chloride 0.9% 100 ml @ 25 mls/hr IVPB Q8H [facility] Rx#: [id number] Sodium Chloride 0.9% 1, 550 240 20 000 ml @ 20 mls/hr IV . Q24H [facility] Rx#:[id number] Vancomycin 1,500 mg In 501 Sodium Chloride 0.9% 500 ml 500 ml @ 167 mls/hr IVPB Q12HR [facility] Rx#: [id number] Intake, IV Titration 502.429 533.148 Amount Cisatracurium 200 mg In 117.475 84.076 Sodium Chloride 0.9% 180 ml @ 1 MCG/KG/MIN 3.81 mls/hr IV .Q24H [facility] Rx#: [id number] fentaNYL (PF). 1,000 mcg 193.987 100 In Sodium Chloride 0.9% 80 ml @ 0.5 MCG/KG/HR 3. 175 mls/hr IV .Q24H [facility] Rx#:[id number] propofoL 1,000 mg In 190.967 349.072 Empty Bag 1 bag @ 15 MCG/ KG/MIN 5.715 mls/hr IV . [id number] [facility] Rx#:[id number] Tube Feeding 540 540 45 Other 90 Output: Urine 3925 4725 250 Other: Voiding Method Indwelling Catheter Indwelling Catheter ABP, PAP, CO, CI - Last Documented Arterial Blood Pressure 134/67 - Labs CBC & Chem 7: 10/18/23 06:55 10/18/23 06:55 Labs: Abnormal Lab Results - Last 24 Hours (Table) 10/17/23 10/17/23 10/17/23 Range/Units 11:42 17:53 21:26 WBC 11.9 H (3.8-10.6) k/uL RBC 4.02 L (4.30-5.90) m/uL Hgb 11.2 L (13.0-17.5) gm/dL Hct 36.7 L (39.0-53.0) % MCHC 30.4 L (31.0-37.0) g/dL Lymphocytes # (1.0-4.8) k/uL ABG pH (7.35-7.45) ABG pCO2 (35-45) mmHg ABG HCO3 (21-25) mmol/L ABG O2 Saturation (94-97) % Chloride (98-107) mmol/L BUN (9-20) mg/dL Glucose (74-99) mg/dL POC Glucose (mg/dL) 232 H 167 H (70-110) mg/dL Calcium (8.4-10.2) mg/dL 10/17/23 10/17/23 10/17/23 Range/Units 21:26 22:52 23:19 WBC (3.8-10.6) k/uL RBC (4.30-5.90) m/uL Hgb (13.0-17.5) gm/dL Hct (39.0-53.0) % MCHC (31.0-37.0) g/dL Lymphocytes # (1.0-4.8) k/uL ABG pH 7.34 L (7.35-7.45) ABG pCO2 52 H (35-45) mmHg ABG HCO3 28 H (21-25) mmol/L ABG O2 Saturation 98.7 H (94-97) % Chloride 115 H (98-107) mmol/L BUN 39 H (9-20) mg/dL Glucose 163 H (74-99) mg/dL POC Glucose (mg/dL) 201 H (70-110) mg/dL Calcium (8.4-10.2) mg/dL 10/17/23 10/18/23 10/18/23 Range/Units 23:53 05:12 05:52 WBC (3.8-10.6) k/uL RBC (4.30-5.90) m/uL Hgb (13.0-17.5) gm/dL Hct (39.0-53.0) % MCHC (31.0-37.0) g/dL Lymphocytes # (1.0-4.8) k/uL ABG pH (7.35-7.45) ABG pCO2 54 H (35-45) mmHg ABG HCO3 30 H (21-25) mmol/L ABG O2 Saturation 97.7 H (94-97) % Chloride (98-107) mmol/L BUN (9-20) mg/dL Glucose (74-99) mg/dL POC Glucose (mg/dL) 230 H 192 H (70-110) mg/dL Calcium (8.4-10.2) mg/dL 10/18/23 10/18/23 Range/Units 06:55 06:55 WBC (3.8-10.6) k/uL RBC 3.93 L (4.30-5.90) m/uL Hgb 11.1 L (13.0-17.5) gm/dL Hct 35.3 L (39.0-53.0) % MCHC (31.0-37.0) g/dL Lymphocytes # 0.4 L (1.0-4.8) k/uL ABG pH (7.35-7.45) ABG pCO2 (35-45) mmHg ABG HCO3 (21-25) mmol/L ABG O2 Saturation (94-97) % Chloride 113 H (98-107) mmol/L BUN 43 H (9-20) mg/dL Glucose 206 H (74-99) mg/dL POC Glucose (mg/dL) (70-110) mg/dL Calcium 8.3 L (8.4-10.2) mg/dL Microbiology - Last 24 Hours (Table) 10/12/23 18:57 Blood Culture - Final Blood 10/12/23 18:40 Blood Culture - Final Blood 10/15/23 11:10 Gram Stain - Preliminary Bronchoalviolar Lavage - Right Bronchial Washings Culture - Preliminary
[2023-10-18] MEDS: POTASSIUM BICARBONATE/CIT AC 20 MEQ TABLET.EFF PO ONE ×2 (08:13→15:26)
--- NOTE | 2023-10-18 08:25 | XR ---
EXAMINATION TYPE: XR chest 1V portable DATE OF EXAM: 10/18/2023 COMPARISON: 10/17/2023 INDICATION: Mechanical ventilation, difficulty breathing TECHNIQUE: Single frontal view of the chest is obtained. FINDINGS: The heart size is normal. The pulmonary vasculature is prominent. There is a developing right lower lobe infiltrate. Previous mild opacity bilaterally may be resolvin g pulmonary edema. Endotracheal tube tip is above the enriqueta. Nasogastric tube transverses the thorax. Left central veno us catheter tip is in the superior vena cava region. IMPRESSION: 1. Increasing right lower lobe infiltrate. Correlate for atelectasis and pneumonia. Consider atypical pulmonary edema. 2. Mild alveolar infiltrate present previously may have some slight improvement.
[2023-10-18 08:48] LABS: African American GFR (CKD) >90 (>60 ml/min/1.73 sqM); Non-African American GFR(CKD) >90 (>60 ml/min/1.73 sqM)
--- NOTE | 2023-10-18 10:50 | P.PN ---
Subjective Progress Note Date: 10/16/23 Patient is a 63-year-old male with a past medical history of COPD on home oxygen, hypertension, chronic back pain, history of cervical fusion surgery, depression currently everyday smoker and marijuana use. Patient presents to ER with complaints of worsening shortness of breath anxiety, chills and fever. Patient was tachycardic and tachypneic on admission. States that he has subjective fevers. Cough and congestion and unable to bring out any sputum. No complaints of chest pain. No nausea vomiting abdominal pain or diarrhea. No headache or dizziness or neck stiffness. Chest x-ray showed perihilar infiltrates in the deflector lobar pneumonia. Correlate clinically and appropriate studies are recommended. EKG showed atrial fibrillation with rapid ventricular response. Patient had a cardiac catheterization on 09/14/2023 showed relatively normal coronaries and normal left sided filling pressures. Laboratory test showed WBC 23.7 hemoglobin 14.2 and platelets 265 Sodium 141 potassium 3.8 chloride 104 bicarb is 22 BUN 16 and creatinine 0.94 and blood sugar 89 and lactic acid 4.7 and magnesium 1.5 Delmar Elevated procalcitonin level 2.4. Troponin x 1 negative proBNP 262 10/14/2023 Patient is awake alert and still having shortness of breath. Oxygen requirement increased and patient is placed on 100% nonrebreather. Also tachypneic. No complaints of chest pain. No fever no chills. Patient is being continued on IV antibiotics ceftriaxone and azithromycin. Patient is also on DuoNebs and IV steroids. ABG showed pH 7.28 pCO2 48 and pO2 133. Other laboratory data showed WBC 18.1 hemoglobin 11.9 and platelets 192 sodium 139 potassium 4.2 chloride 114 bicarb is 22 BUN 28 and creatinine 0.69 and blood sugar is 146. Patient is being transferred to MICU due to worsening respiratory status and patient needs intubation. 10/15/2023 Patient is in the MICU. Intubated and on mechanical ventilator. Patient is also requiring pressor support. Due to worsening respiratory disease patient was transferred to MICU yesterday. Currently on assist-control with respiratory 28 tidal volume 400 FiO2 50% and PEEP of 8. Laboratory data showed WBC 15.3 hemoglobin 10.9 and platelets 208 Sodium 141 potassium 4.8 chloride 115 bicarb is 24 BUN 26 and creatinine 0.82 and blood sugar 151. Antibiotics changed to vancomycin and Zosyn. Patient is also on anticoagulation with Eliquis due to new onset A-fib. Cardiology and pulmonary is on board. 10/16/2023 Patient is a MICU. Sedated with propofol and is also on fentanyl. ABG showed pH 7.3 pCO2 47 and pO2 116. Remains on assist control with PEEP of 8. Patient is status post bronchoscopy on 10/15/2023. Chest x-ray today showed worsening diffuse increased lung markings correlate for pulmonary edema. Patient is also on amiodarone drip for atrial fibrillation. Rate is controlled. Converted to sinus rhythm. Laboratory data showed WBC 8.2 hemoglobin 10.4 and platelets 200 Sodium 140 potassium 4.4 chloride 106 bicarb is 20 BUN 25 and creatinine 0.77 and blood sugar 166 and calcium 8.4. Cultures negative so far. Patient is being continued on antibiotics Zosyn and vancomycin. Current medications reviewed. Objective - Vital Signs Vital signs: Vital Signs Temp 99.1 F 10/16/23 20:00 Pulse 75 10/16/23 20:24 Resp 28 H 10/16/23 20:00 BP 138/83 10/14/23 17:00 Pulse Ox 99 10/16/23 20:00 FiO2 50 10/16/23 20:00 Intake & Output 10/16/23 10/16/23 10/17/23 06:59 18:59 06:59 Intake Total 2246.530 2669.659 387.653 Output Total 625 675 120 Balance 9471.912 1179.659 267.653 Intake: IV 1500 1526 175 Piperacillin-Tazobactam 3 100 125 25 .375 gm In Sodium Chloride 0.9% 100 ml @ 25 mls/hr IVPB Q12HR [facility] Rx #:[id number] Sodium Chloride 0.9% 1, 900 900 150 000 ml @ 75 mls/hr IV . [id number] [facility] Rx#:[id number] Vancomycin 1,500 mg In 500 501 Sodium Chloride 0.9% 500 ml 500 ml @ 167 mls/hr IVPB Q12HR [facility] Rx#: [id number] Intake, IV Titration 496.530 723.659 122.653 Amount Amiodarone 450 mg In 242.505 Dextrose 5% in Water 250 ml @ 0.5 MG/MIN 16.667 mls/hr IV .Q15H [facility] Rx#: [id number] Cisatracurium 200 mg In 82.867 0 10.414 Sodium Chloride 0.9% 180 ml @ 1 MCG/KG/MIN 3.81 mls/hr IV .Q24H [facility] Rx#: [id number] Norepinephrine 4 mg In 16.734 Sodium Chloride 0.9% 250 ml @ 0.05 MCG/KG/MIN 12. 097 mls/hr IV .Q21H [facility] Rx#:[id number] Piperacillin-Tazobactam 3 25 .375 gm In Sodium Chloride 0.9% 100 ml @ 25 mls/hr IVPB Q8H [facility] Rx#: [id number] fentaNYL (PF). 1,000 mcg 92.869 180.169 39.37 In Sodium Chloride 0.9% 80 ml @ 0.5 MCG/KG/HR 3. 175 mls/hr IV .Q24H [facility] Rx#:[id number] propofoL 1,000 mg In 279.06 300.985 72.869 Empty Bag 1 bag @ 15 MCG/ KG/MIN 5.715 mls/hr IV . [id number] [facility] Rx#:[id number] Oral 50 Tube Feeding 190 370 90 Other 60 Output: Urine 625 675 120 Other: Voiding Method Indwelling Catheter Indwelling Catheter Indwelling Catheter ABP, PAP, CO, CI - Last Documented Arterial Blood Pressure 121/59 - Exam PHYSICAL EXAMINATION: Patient is is currently intubated and on mechanical ventilator... HEENT: Normocephalic. Neck is supple. Pupils reactive. Nostrils clear. Oral cavity is moist. Neck reveals no JVD, carotid bruits, or thyromegaly. CHEST EXAMINATION: Trachea is central. Symmetrical expansion. Bilateral coarse breath sounds and scattered rhonchi. CARDIAC: Normal S1, S2 with no gallops. No murmurs ABDOMEN: Soft. Bowel sounds normal. No organomegaly. No abdominal bruits. Extremities: reveal no edema. No clubbing or cyanosis Neurologically sedated and intubated. No gross focal deficits noted Skin: No rash or skin lesions. Psychiatric: Could not be assessed completely Musculoskeletal: No joint swelling or deformity. - Labs CBC & Chem 7: 10/18/23 06:55 10/18/23 08:15 Labs: Abnormal Lab Results - Last 24 Hours (Table) 10/16/23 10/16/2324 Range/Units 01:01 04:46 04:46 RBC 3.66 L (4.30-5.90) m/uL Hgb 10.4 L (13.0-17.5) gm/dL Hct 33.8 L (39.0-53.0) % MCHC 30.6 L (31.0-37.0) g/dL Lymphocytes # 0.4 L (1.0-4.8) k/uL ABG pH (7.35-7.45) ABG pCO2 (35-45) mmHg ABG pO2 (83-108) mmHg ABG O2 Saturation (94-97) % Chloride 116 H (98-107) mmol/L Carbon Dioxide 20 L (22-30) mmol/L BUN 25 H (9-20) mg/dL Glucose 166 H (74-99) mg/dL POC Glucose (mg/dL) 181 H (70-110) mg/dL Creatine Kinase (55-170) U/L 10/16/23 10/16/23 10/16/23 Range/Units 05:40 06:27 11:33 RBC (4.30-5.90) m/uL Hgb (13.0-17.5) gm/dL Hct (39.0-53.0) % MCHC (31.0-37.0) g/dL Lymphocytes # (1.0-4.8) k/uL ABG pH 7.30 L (7.35-7.45) ABG pCO2 47 H (35-45) mmHg ABG pO2 116 H (83-108) mmHg ABG O2 Saturation 98.7 H (94-97) % Chloride (98-107) mmol/L Carbon Dioxide (22-30) mmol/L BUN (9-20) mg/dL Glucose (74-99) mg/dL POC Glucose (mg/dL) 163 H 200 H (70-110) mg/dL Creatine Kinase (55-170) U/L 10/16/23 10/16/23 10/16/23 Range/Units 12:10 18:54 19:59 RBC (4.30-5.90) m/uL Hgb (13.0-17.5) gm/dL Hct (39.0-53.0) % MCHC (31.0-37.0) g/dL Lymphocytes # (1.0-4.8) k/uL ABG pH 7.24 L (7.35-7.45) ABG pCO2 54 H (35-45) mmHg ABG pO2 128 H (83-108) mmHg ABG O2 Saturation 98.9 H (94-97) % Chloride (98-107) mmol/L Carbon Dioxide (22-30) mmol/L BUN (9-20) mg/dL Glucose (74-99) mg/dL POC Glucose (mg/dL) 174 H (70-110) mg/dL Creatine Kinase 45 L (55-170) U/L Microbiology - Last 24 Hours (Table) 10/15/23 11:10 Acid Fast Bacilli Smear - Preliminary Bronchoalviolar Lavage - Right 10/15/23 11:10 Gram Stain - Preliminary Bronchoalviolar Lavage - Right 10/12/23 18:57 Blood Culture - Preliminary Blood 10/12/23 18:40 Blood Culture - Preliminary Blood Assessment and Plan Assessment: Acute on chronic hypoxemic respiratory failure secondary to COPD and pneumonia. Patient was on 100% nonrebreather currently requiring mechanical ventilator. Acute COPD exacerbation Bilateral pneumonia Sepsis secondary to pneumonia New onset A-fib with RVR as per EKG on admission Ongoing nicotine addiction GERD Hypertension Prior history of pneumonia Depression Marijuana use COPD on home oxygen as needed DVT prophylaxis with heparin subcu Plan: Patient is in ICU. Sedated and intubated. Continue with telemetry monitoring. Antibiotic changed to vancomycin and Zosyn.. Urine Legionella antigen is negative. Patient is status post bronchoscopy on 10/15/2023 Follow-up blood cultures and sputum cultures and BAL cultures.. Patient is being continued on IV Solu-Medrol, DuoNebs and oxygen supplementation. Patient was started on anticoagulation with Eliquis due to new onset atrial fibrillation.. Continue with metoprolol and amiodarone. Cardiology and pulmonary is on board. Continue to follow closely. Prognosis is guarded. Time with Patient: Greater than 30
--- NOTE | 2023-10-18 10:55 | P.PN ---
Subjective Progress Note Date: 10/17/23 Patient is a 63-year-old male with a past medical history of COPD on home oxygen, hypertension, chronic back pain, history of cervical fusion surgery, depression currently everyday smoker and marijuana use. Patient presents to ER with complaints of worsening shortness of breath anxiety, chills and fever. Patient was tachycardic and tachypneic on admission. States that he has subjective fevers. Cough and congestion and unable to bring out any sputum. No complaints of chest pain. No nausea vomiting abdominal pain or diarrhea. No headache or dizziness or neck stiffness. Chest x-ray showed perihilar infiltrates in the deflector lobar pneumonia. Correlate clinically and appropriate studies are recommended. EKG showed atrial fibrillation with rapid ventricular response. Patient had a cardiac catheterization on 09/14/2023 showed relatively normal coronaries and normal left sided filling pressures. Laboratory test showed WBC 23.7 hemoglobin 14.2 and platelets 265 Sodium 141 potassium 3.8 chloride 104 bicarb is 22 BUN 16 and creatinine 0.94 and blood sugar 89 and lactic acid 4.7 and magnesium 1.5 [place] Elevated procalcitonin level 2.4. Troponin x 1 negative proBNP 262 10/14/2023 Patient is awake alert and still having shortness of breath. Oxygen requirement increased and patient is placed on 100% nonrebreather. Also tachypneic. No complaints of chest pain. No fever no chills. Patient is being continued on IV antibiotics ceftriaxone and azithromycin. Patient is also on DuoNebs and IV steroids. ABG showed pH 7.28 pCO2 48 and pO2 133. Other laboratory data showed WBC 18.1 hemoglobin 11.9 and platelets 192 sodium 139 potassium 4.2 chloride 114 bicarb is 22 BUN 28 and creatinine 0.69 and blood sugar is 146. Patient is being transferred to MICU due to worsening respiratory status and patient needs intubation. 10/15/2023 Patient is in the MICU. Intubated and on mechanical ventilator. Patient is also requiring pressor support. Due to worsening respiratory disease patient was transferred to MICU yesterday. Currently on assist-control with respiratory 28 tidal volume 400 FiO2 50% and PEEP of 8. Laboratory data showed WBC 15.3 hemoglobin 10.9 and platelets 208 Sodium 141 potassium 4.8 chloride 115 bicarb is 24 BUN 26 and creatinine 0.82 and blood sugar 151. Antibiotics changed to vancomycin and Zosyn. Patient is also on anticoagulation with Eliquis due to new onset A-fib. Cardiology and pulmonary is on board. 10/16/2023 Patient is a MICU. Sedated with propofol and is also on fentanyl. ABG showed pH 7.3 pCO2 47 and pO2 116. Remains on assist control with PEEP of 8. Patient is status post bronchoscopy on 10/15/2023. Chest x-ray today showed worsening diffuse increased lung markings correlate for pulmonary edema. Patient is also on amiodarone drip for atrial fibrillation. Rate is controlled. Converted to sinus rhythm. Laboratory data showed WBC 8.2 hemoglobin 10.4 and platelets 200 Sodium 140 potassium 4.4 chloride 106 bicarb is 20 BUN 25 and creatinine 0.77 and blood sugar 166 and calcium 8.4. Cultures negative so far. Patient is being continued on antibiotics Zosyn and vancomycin. 10/17/2023 Patient is in the ICU. Intubated and on mechanical data. Continued on propofol and fentanyl drips. Patient was also started back on Nimbex drip. Currently on assist-control with respiratory 28 tidal volume 350 FiO2 50% and PEEP of 6. Chest x-ray today showed diffuse increased lung markings improved from comparison. Laboratory data showed WBC 8.3 hemoglobin 10.3 and platelets 201 sodium 144 potassium 4.1 chloride 108 bicarb is 22 BUN 38 creatinine 0.8 and blood sugar 192 and -2.4 Patient remains on antibiotics Zosyn and vancomycin. Anticoagulation with Eliquis and also on amiodarone 200 mg p.o. twice daily. Patient is also on IV Lasix. Currently maintaining sinus rhythm. Cardiology and pulmonary is on board. Current medications reviewed. Objective - Vital Signs Vital signs: Vital Signs Temp 100 F H 10/17/23 20:00 Pulse 102 H 10/17/23 22:00 Resp 28 H 10/17/23 22:00 BP 109/69 10/17/23 06:00 Pulse Ox 99 10/17/23 22:00 FiO2 50 10/17/23 22:00 Intake & Output 10/17/23 10/17/23 10/18/23 06:59 18:59 06:59 Intake Total 2823.377 2308.429 410 Output Total 1202 3925 850 Balance 1621.377 -1616.571 -440 Weight 85.7 kg Intake: IV 1425 1176 130 Piperacillin-Tazobactam 3 25 .375 gm In Sodium Chloride 0.9% 100 ml @ 25 mls/hr IVPB Q12HR [facility] Rx #:[id number] Piperacillin-Tazobactam 3 125 50 .375 gm In Sodium Chloride 0.9% 100 ml @ 25 mls/hr IVPB Q8H [facility] Rx#: [id number] Sodium Chloride 0.9% 1, 900 550 80 000 ml @ 20 mls/hr IV . Q24H [facility] Rx#:[id number] Vancomycin 1,500 mg In 500 501 Sodium Chloride 0.9% 500 ml 500 ml @ 167 mls/hr IVPB Q12HR [facility] Rx#: [id number] Intake, IV Titration 768.377 502.429 100 Amount Cisatracurium 200 mg In 10.414 117.475 0 Sodium Chloride 0.9% 180 ml @ 1 MCG/KG/MIN 3.81 mls/hr IV .Q24H [facility] Rx#: [id number] Vancomycin 1,500 mg In 500 Sodium Chloride 0.9% 500 ml 500 ml @ 167 mls/hr IVPB Q12HR [facility] Rx#: [id number] fentaNYL (PF). 1,000 mcg 85.094 193.987 In Sodium Chloride 0.9% 80 ml @ 0.5 MCG/KG/HR 3. 175 mls/hr IV .Q24H [facility] Rx#:[id number] propofoL 1,000 mg In 172.869 190.967 100 Empty Bag 1 bag @ 15 MCG/ KG/MIN 5.715 mls/hr IV . [id number] [facility] Rx#:[id number] Tube Feeding 540 540 180 Other 90 90 Output: Urine 1202 3925 850 Other: Voiding Method Indwelling Catheter Indwelling Catheter Indwelling Catheter ABP, PAP, CO, CI - Last Documented Arterial Blood Pressure 133/62 - Exam PHYSICAL EXAMINATION: Patient is is currently intubated and on mechanical ventilator... HEENT: Normocephalic. Neck is supple. Pupils reactive. Nostrils clear. Oral cavity is moist. Neck reveals no JVD, carotid bruits, or thyromegaly. CHEST EXAMINATION: Trachea is central. Symmetrical expansion. Bilateral coarse breath sounds and scattered rhonchi. CARDIAC: Normal S1, S2 with no gallops. No murmurs ABDOMEN: Soft. Bowel sounds normal. No organomegaly. No abdominal bruits. Extremities: reveal no edema. No clubbing or cyanosis Neurologically sedated and intubated. No gross focal deficits noted Skin: No rash or skin lesions. Psychiatric: Could not be assessed completely Musculoskeletal: No joint swelling or deformity. - Labs CBC & Chem 7: 10/18/23 06:55 10/18/23 08:15 Labs: Abnormal Lab Results - Last 24 Hours (Table) 10/17/23 10/17/23 10/17/23 Range/Units 00:07 04:00 04:07 WBC (3.8-10.6) k/uL RBC 3.71 L (4.30-5.90) m/uL Hgb 10.5 L (13.0-17.5) gm/dL Hct 34.4 L (39.0-53.0) % MCHC 30.6 L (31.0-37.0) g/dL Lymphocytes # 0.3 L (1.0-4.8) k/uL ABG pH (7.35-7.45) ABG pCO2 (35-45) mmHg ABG HCO3 (21-25) mmol/L ABG O2 Saturation (94-97) % Chloride 118 H (98-107) mmol/L BUN 30 H (9-20) mg/dL Glucose 192 H (74-99) mg/dL POC Glucose (mg/dL) 222 H (70-110) mg/dL Calcium 8.3 L (8.4-10.2) mg/dL Magnesium (1.6-2.3) mg/dL 10/17/23 10/17/23 10/17/23 Range/Units 04:07 05:57 06:07 WBC (3.8-10.6) k/uL RBC (4.30-5.90) m/uL Hgb (13.0-17.5) gm/dL Hct (39.0-53.0) % MCHC (31.0-37.0) g/dL Lymphocytes # (1.0-4.8) k/uL ABG pH 7.24 L (7.35-7.45) ABG pCO2 55 H (35-45) mmHg ABG HCO3 (21-25) mmol/L ABG O2 Saturation 98.3 H (94-97) % Chloride (98-107) mmol/L BUN (9-20) mg/dL Glucose (74-99) mg/dL POC Glucose (mg/dL) 209 H (70-110) mg/dL Calcium (8.4-10.2) mg/dL Magnesium 2.4 H (1.6-2.3) mg/dL 10/17/23 10/17/23 10/17/23 Range/Units 11:42 17:53 21:26 WBC 11.9 H (3.8-10.6) k/uL RBC 4.02 L (4.30-5.90) m/uL Hgb 11.2 L (13.0-17.5) gm/dL Hct 36.7 L (39.0-53.0) % MCHC 30.4 L (31.0-37.0) g/dL Lymphocytes # (1.0-4.8) k/uL ABG pH (7.35-7.45) ABG pCO2 (35-45) mmHg ABG HCO3 (21-25) mmol/L ABG O2 Saturation (94-97) % Chloride (98-107) mmol/L BUN (9-20) mg/dL Glucose (74-99) mg/dL POC Glucose (mg/dL) 232 H 167 H (70-110) mg/dL Calcium (8.4-10.2) mg/dL Magnesium (1.6-2.3) mg/dL 10/17/23 10/17/23 Range/Units 21:26 22:52 WBC (3.8-10.6) k/uL RBC (4.30-5.90) m/uL Hgb (13.0-17.5) gm/dL Hct (39.0-53.0) % MCHC (31.0-37.0) g/dL Lymphocytes # (1.0-4.8) k/uL ABG pH 7.34 L (7.35-7.45) ABG pCO2 52 H (35-45) mmHg ABG HCO3 28 H (21-25) mmol/L ABG O2 Saturation 98.7 H (94-97) % Chloride 115 H (98-107) mmol/L BUN 39 H (9-20) mg/dL Glucose 163 H (74-99) mg/dL POC Glucose (mg/dL) (70-110) mg/dL Calcium (8.4-10.2) mg/dL Magnesium (1.6-2.3) mg/dL Microbiology - Last 24 Hours (Table) 10/15/23 11:10 Gram Stain - Preliminary Bronchoalviolar Lavage - Right Bronchial Washings Culture - Preliminary 10/15/23 11:10 Acid Fast Bacilli Smear - Preliminary Bronchoalviolar Lavage - Right Assessment and Plan Assessment: Acute on chronic hypoxemic respiratory failure secondary to COPD and pneumonia. Patient was on 100% nonrebreather currently requiring mechanical ventilator. Acute COPD exacerbation Bilateral pneumonia Sepsis secondary to pneumonia New onset A-fib with RVR as per EKG on admission Ongoing nicotine addiction GERD Hypertension Prior history of pneumonia Depression Marijuana use COPD on home oxygen as needed DVT prophylaxis with heparin subcu Plan: Patient is in ICU. Sedated and intubated. Continue with telemetry monitoring. Antibiotic changed to vancomycin and Zosyn.. Urine Legionella antigen is negative. Patient is status post bronchoscopy on 10/15/2023 Follow-up blood cultures and sputum cultures and BAL cultures.. Patient is being continued on IV Solu-Medrol, DuoNebs and oxygen supplementation. Patient was started on anticoagulation with Eliquis due to new onset atrial fibrillation.. Continue with metoprolol and amiodarone. Patient was also started on IV Lasix. Cardiology and pulmonary is on board. Continue to follow closely. Prognosis is guarded. Time with Patient: Greater than 30
[2023-10-18] MEDS: LORazepam 1 MG/0.5 ML VIAL IV PRN (11:00)
[2023-10-18] MEDS: VANCOMYCIN TROUGH DUE 1 EACH MISC MISCELLANE ONE (11:13)
[2023-10-18 12:00] LABS: Glucose,Whole Blood 225 mg/dL (70-110)
[2023-10-18] MEDS: INSULIN ASPART (NovoLOG) 100 UNIT/ML VIAL SQ SCH ×2 (12:11→17:28)
--- NOTE | 2023-10-18 13:36 | P.PN ---
Subjective Progress Note Date: 10/18/23 On 10/15/2023, patient is being seen for a follow-up. The patient remains intubated on the mechanical ventilator with diffuse bilateral pulmonary filtrates, likely presenting bilateral pneumonia. This morning, the patient is on propofol at 75 mcg/kg/min and the patient is also on fentanyl at 1.5 mcg/kg/ h. The patient is on assist-control mechanical ventilation at rate of 28, tidal volume of 400, FiO2 of 50% with a PEEP of 8. Peak airway pressures 32. The static airway pressure is 29. Blood gas shows a pH of 7.18 with a pCO2 of 62 and pO2 of 160. Hemodynamically, the patient remains hypotensive and currently is on norepinephrine at low-dose running at 0.04 mcg/kg/min and the patient is also on normal saline at rate of 75 cc an hour. The white cell count is at 15.3 with a hemoglobin 10.9 and a platelet count of 208. BUN is at 26 with a creatinine of 0.8 and sodium levels at 141 with a potassium level of 4.8 with a serum bicarb of 24. The chloride is at 115. The patient was receiving IV Rocephin. Cardiac rhythm is sinus. Remains on bronchodilators. Remains on steroids. Echocardiogram completed this morning a preserved LV function with an EF of around 55 to 60% without any significant valvular abnormalities. Right ventricular systolic pressure estimated to be around 38. Chest x-ray showing diffuse bilateral pulmonary infiltrates. Cultures are negative thus far. 10/16/2023, the patient is being seen for a follow-up. The patient remains sedated on propofol which is running at 75 mcg/kg/min and the patient is currently on fentanyl at 1.5 mcg/kg/h. The patient was taken off the Nimbex yesterday. Remains intubated on the mechanical ventilator. Remains on assist-control mode with rate of 20, tidal volume of 400, FiO2 of 50% with a PEEP of 8, and the patient blood gas showed pH 7.30 with a pCO2 of 47 and pO2 of 116. The bronchoscopy was done yesterday and the results of bronchial lavage are still pending. Chest x-ray showing diffuse bilateral pulm infiltrates, unchanged compared to yesterday. ET tube is in a good location. Echocardiogram was done yesterday and the patient was found to have a preserved LV function without any significant valvular abnormalities. Right ventricular systolic pressure was estimated to be at 35. No evidence of any pericardial effusion. The patient remains on Zosyn and vancomycin. Cultures are still pending for now. The patient is afebrile. The patient remains off pressors. Norepinephrine was weaned off and discontinued without any major difficulties and the patient is maintaining his own blood pressure. The patient however is on amiodarone drip at 0.5 mg/min regarding atrial fibrillation and his rate is controlled and converted into normal sinus rhythm. He remains on normal citrate of 75 cc an hour. He is on enteral feeding for nutritional support with vital high-protein at a rate of 30 cc an hour. Fluid balance is +3.1 L over the past 24 hours. On today's evaluation of 10/17/2023, seen the patient for a follow-up. Remains intubated on mechanical ventilator. This morning, the patient is on propofol running at 75 mcg/kg/min and fentanyl at 2 mcg/kg/h. The patient is also on Nimbex for paralysis as the patient was quite asynchronous with mechanical ventilator and the patient was peak pressuring yesterday Nimbex is running at 2 mcg/kg/min. The patient is currently on assist-control mode of mechanical ventilation at rate of 28, tidal volume of 350, FiO2 of 50% and PEEP of 6. The blood gas from today shows a pH of 7.24 with a pCO2 of 55 and a pO2 of 108. Chest x-ray from today shows diffuse bilateral pulmonary filtrates with some limited improvement in patient compared to yesterday. Bronchoscopy and bronchial lavage was done and the microbial culture is still pending is negative thus far and the patient remains on a combination of Zosyn and vancomycin. The vancomycin trough level was at 21. BUN is at 30 with a creatinine of 0.8 and sodium level at 144. WBC count is 8.3 with a hemoglobin 10.5 and a platelet count of 201. The patient remains on vital high-protein at 30 to 45 cc an hour. Fluid balance is +3.6 L over the past 24 hours. Meanwhile, the patient had an episode of atrial fibrillation yesterday with rapid ventricular response. The patient was loaded with amiodarone and currently is back in normal sinus rhythm. Amiodarone is running at 200 mg p.o. twice a day. The patient is also on anticoagulation with Eliquis 5 mg p.o. twice a day. The patient on Toprol-XL 25 mg p.o. daily. IV Solu-Medrol was also added. On 10/18/2023, seen the patient for a follow-up. Patient remains intubated on the mechanical ventilator. On today's evaluation, the patient is on propofol at 75 mcg/kg/min and fentanyl at 2 mcg/kg/h. The patient is also paralyzed as the patient was peak pressuring yesterday. Nimbex is running at 3 mcg/kg/min. Remains on mechanical ventilator. Peak airway pressure is 30. Static airway pressure is 20. Patient is on assist-control mode at rate of 28, tidal volume of 350, fentanyl 50% with a PEEP of 6. pH is at 7.36 with a pCO2 of 54 and pO2 of 69. The chest x-ray shows increased right lower lobe pulmonary infiltration, some interval improvement in the aeration bilaterally. Orotracheal tube is in the mid location. Patient is on no pressors. The patient was started on Lasix 40 mg IV every 12 hours and the patient is negative fluid balance of 2.9 L over the past 24 hours. The patient is receiving enteral feeding for nutritional support. Antibiotic coverage is unchanged. Remains on Zosyn and vancomycin. Cultures are all negative. BUN is 43 with a creatinine of 0.8 and sodium levels at 144. WBC count 0.6 with a hemoglobin of 11.1 and a platelet count of 185. Afebrile for now. Meanwhile, the patient is having some ectopies. He did have a run of atrial fibrillation yesterday and currently is back in normal sinus rhythm and the patient is on oral amiodarone. Patient is also on metoprolol 25 mg p.o. Anticoagulation with Eliquis. Objective - Vital Signs Vital signs: Vital Signs Temp 98.6 F 10/18/23 12:00 Pulse 54 L 10/18/23 13:00 Resp 28 H 10/18/23 13:00 BP 102/60 10/18/23 08:00 Pulse Ox 96 10/18/23 13:00 FiO2 50 10/18/23 12:00 Intake & Output 10/17/23 10/18/23 10/18/23 18:59 06:59 18:59 Intake Total 2308.429 3512.259 6965.119 Output Total 3925 4725 2775 Balance -1616.571 -3361.852 -1425.881 Weight 84.2 kg Intake: IV 1176 290 720 Piperacillin-Tazobactam 3 125 50 100 .375 gm In Sodium Chloride 0.9% 100 ml @ 25 mls/hr IVPB Q8H [facility] Rx#: [id number] Sodium Chloride 0.9% 1, 550 240 120 000 ml @ 20 mls/hr IV . Q24H [facility] Rx#:[id number] Vancomycin 1,500 mg In 501 500 Sodium Chloride 0.9% 500 ml 500 ml @ 167 mls/hr IVPB Q12HR [facility] Rx#: [id number] Intake, IV Titration 502.429 533.148 139.119 Amount Cisatracurium 200 mg In 117.475 84.076 39.119 Sodium Chloride 0.9% 180 ml @ 1 MCG/KG/MIN 3.81 mls/hr IV .Q24H [facility] Rx#: [id number] fentaNYL (PF). 1,000 mcg 193.987 100 In Sodium Chloride 0.9% 80 ml @ 0.5 MCG/KG/HR 3. 175 mls/hr IV .Q24H [facility] Rx#:[id number] propofoL 1,000 mg In 190.967 349.072 100 Empty Bag 1 bag @ 15 MCG/ KG/MIN 5.715 mls/hr IV . [id number] [facility] Rx#:[id number] Oral 160 Tube Feeding 540 540 270 Other 90 60 Output: Urine 3925 4721 2775 Other: Voiding Method Indwelling Catheter Indwelling Catheter Indwelling Catheter ABP, PAP, CO, CI - Last Documented Arterial Blood Pressure 113/64 - Exam Pulmonary comfortable, intubated on mechanical ventilator, sedated with propofol and fentanyl. Orogastric and orotracheal tube are both in place. The patient is also paralyzed with Nimbex. Head exam was generally normal. There was no scleral icterus or corneal arcus. Mucous membranes were moist. HEENT examination is grossly unremarkable. Mucous membranes are moist. No oral lesions. Neck supple. Full range of motion. No adenopathy thyromegaly or neck vein distention. Cardiovascular examination reveals regular rhythm rate. S1-S2 normal. No S3 or S4. No discernible murmur noted. Heart sounds are distant. Lungs reveal bilateral scattered inspiratory and expiratory rhonchi. Breath sounds are equal. No crackles or wheezes. Lung sounds are diminished bilaterally and the patient has diminished breath sounds Abdominal exam revealed normal bowel sounds. The abdomen was soft, non-tender, and without masses, organomegaly, or appreciable enlargement of the abdominal aorta. Extremities are intact. No cyanosis clubbing or edema. Skin is without rash or lesion. Neurologic examination is brief but nonfocal. The patient is sedated and currently patient is calm and comfortable. - Labs CBC & Chem 7: 10/18/23 06:55 10/18/23 08:15 Labs: Abnormal Lab Results - Last 24 Hours (Table) 10/17/23 10/17/23 10/17/23 Range/Units 17:53 21:26 21:26 WBC 11.9 H (3.8-10.6) k/uL RBC 4.02 L (4.30-5.90) m/uL Hgb 11.2 L (13.0-17.5) gm/dL Hct 36.7 L (39.0-53.0) % MCHC 30.4 L (31.0-37.0) g/dL Lymphocytes # (1.0-4.8) k/uL ABG pH (7.35-7.45) ABG pCO2 (35-45) mmHg ABG HCO3 (21-25) mmol/L ABG O2 Saturation (94-97) % Chloride 115 H (98-107) mmol/L BUN 39 H (9-20) mg/dL Glucose 163 H (74-99) mg/dL POC Glucose (mg/dL) 167 H (70-110) mg/dL Calcium (8.4-10.2) mg/dL 10/17/23 10/17/23 10/17/23 Range/Units 22:52 23:19 23:53 WBC (3.8-10.6) k/uL RBC (4.30-5.90) m/uL Hgb (13.0-17.5) gm/dL Hct (39.0-53.0) % MCHC (31.0-37.0) g/dL Lymphocytes # (1.0-4.8) k/uL ABG pH 7.34 L (7.35-7.45) ABG pCO2 52 H (35-45) mmHg ABG HCO3 28 H (21-25) mmol/L ABG O2 Saturation 98.7 H (94-97) % Chloride (98-107) mmol/L BUN (9-20) mg/dL Glucose (74-99) mg/dL POC Glucose (mg/dL) 201 H 230 H (70-110) mg/dL Calcium (8.4-10.2) mg/dL 10/18/23 10/18/23 10/18/23 Range/Units 05:12 05:52 06:55 WBC (3.8-10.6) k/uL RBC 3.93 L (4.30-5.90) m/uL Hgb 11.1 L (13.0-17.5) gm/dL Hct 35.3 L (39.0-53.0) % MCHC (31.0-37.0) g/dL Lymphocytes # 0.4 L (1.0-4.8) k/uL ABG pH (7.35-7.45) ABG pCO2 54 H (35-45) mmHg ABG HCO3 30 H (21-25) mmol/L ABG O2 Saturation 97.7 H (94-97) % Chloride (98-107) mmol/L BUN (9-20) mg/dL Glucose (74-99) mg/dL POC Glucose (mg/dL) 192 H (70-110) mg/dL Calcium (8.4-10.2) mg/dL 10/18/23 10/18/23 Range/Units 06:55 11:58 WBC (3.8-10.6) k/uL RBC (4.30-5.90) m/uL Hgb (13.0-17.5) gm/dL Hct (39.0-53.0) % MCHC (31.0-37.0) g/dL Lymphocytes # (1.0-4.8) k/uL ABG pH (7.35-7.45) ABG pCO2 (35-45) mmHg ABG HCO3 (21-25) mmol/L ABG O2 Saturation (94-97) % Chloride 113 H (98-107) mmol/L BUN 43 H (9-20) mg/dL Glucose 206 H (74-99) mg/dL POC Glucose (mg/dL) 225 H (70-110) mg/dL Calcium 8.3 L (8.4-10.2) mg/dL Microbiology - Last 24 Hours (Table) 10/15/23 11:10 Gram Stain - Preliminary Bronchoalviolar Lavage - Right Bronchial Washings Culture - Final 10/12/23 18:57 Blood Culture - Final Blood 10/12/23 18:40 Blood Culture - Final Blood Assessment and Plan Plan: Acute exacerbation of chronic COPD, with development of diffuse bilateral pulmonary infiltrates with rapid progression over the past 24 to 48 hours with subsequent respiratory failure requiring intubation mechanical ventilation. At this point in time the patient has diffuse bilateral pulmonary infiltrates, intubated on mechanical ventilator. Suspected bacterial infection. Procalcitonin level was elevated at the time of admission at 2.2. In addition, the patient had elevated white cell count. The antibiotic coverage has been switched to a combination of Zosyn and vancomycin. Bronchoscopy endobronchial lavage was done and the results are not showing any microbial growth. The patient is afebrile. No significant leukocytosis. Remains on same antibiotic coverage. Limited improvement in chest x-ray findings on today's evaluation. Meanwhile, the patient remains sedated and paralyzed. No major change in the x- ray findings. Blood gases are noted. Acute leukocytosis, improved and the white cell count is improved Acute hypercapnic respiratory failure, stable, improved Acute hypoxic respiratory failure Hypotension, likely septic in nature and the patient is currently off pressors Paroxysmal A-fib, currently back in normal sinus rhythm and the patient is currently on Toprol-XL 25 mg p.o. daily and amiodarone 200 mg p.o. twice a day and anticoagulation with Eliquis. Previous history of COPD exac progressive bilateral pulmonary infiltrates with rapiderbation requiring intubation and mechanical ventilatory support on 05/19/2023. The patient was extubated on 05/23/2023 Previous history of pseudomonal growth in the sputum rule out pseudomonal tracheal bronchitis/pneumonia. 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 Previous serum Aspergillus antibodies obtained in April 2023 was negative Chronic and ongoing tobacco dependence of nearly 50 years History of alcoholism Marijuana use History of depression Plan Continue ventilator support, no ventilator changes for today Continue propofol and fentanyl Give the patient a paralytic holiday, Nimbex had to be restarted yesterday to maintain synchrony on mechanical ventilator and lower airway pressures. The bronchioloalveolar lavage was negative for any microbial, bacterial, fungal or viral elements. Continue IV Zosyn and vancomycin Procalcitonin level was elevated. Change IV fluids to KVO Lasix 40 mg IV every 12 hours, currently in negative fluid balance Continue enteral feeding for nutritional support Daily chest x-rays Echocardiogram to be done today to evaluate LV function, this was noted and the patient has a preserved LV function without any valvular abnormalities. Will continue to follow and make further recommendation based on his progress. This evaluation was done more than 30 minutes excluding time to any procedures. Condition is critical. Will continue to follow. Time with Patient: Greater than 30
[2023-10-18] MEDS: METOPROLOL TARTRATE 25 MG TAB PO SCH (13:52)
[2023-10-18 14:48] LABS: Magnesium 2.2 mg/dL (1.6-2.3); Potassium 3.9 mmol/L (3.5-5.1)
[2023-10-18 17:40] LABS: Glucose,Whole Blood 197 mg/dL (70-110)
[2023-10-18] MEDS: VANCOMYCIN 1,250 MG in SODIUM CHLORIDE 0.9% 250 ML IVPB SCH (20:27)
[2023-10-18] MEDS: POTASSIUM CHLORIDE ER 20 MEQ TAB.ER PO SCH (21:40)
[2023-10-18 23:47] LABS: Glucose,Whole Blood 207 mg/dL (70-110)
[2023-10-19 05:34] LABS: ABG Base Excess 9.9 mmol/L; ABG HCO3 36 mmol/L (21-25); ABG Oxygen Saturation 97.1 % (94-97); ABG PCO2 52 mmHg (35-45); ABG PH 7.44 (7.35-7.45); ABG PO2 84 mmHg (83-108)
[2023-10-19 05:49] LABS: Glucose,Whole Blood 207 mg/dL (70-110)
[2023-10-19 06:09] LABS: Basophils % (A) 0 %; Eosinophils % (A) 0 %; HCT 37.8 % (39.0-53.0); HGB 11.8 gm/dL (13.0-17.5); Lymphocytes # (A) 0.5 k/uL (1.0-4.8); Lymphocytes % (A) 4 %; MCH 28.2 pg (25.0-35.0); MCHC 31.3 g/dL (31.0-37.0); MCV 90.2 fL (80.0-100.0); Mean Platelet Volume 10.7; Monocytes # (A) 0.5 k/uL (0-1.0); Monocytes % (A) 5 %; Neutrophils # (A) 9.8 k/uL (1.3-7.7); Neutrophils % (A) 90 %; Platelet Count 223 k/uL (150-450); RBC 4.19 m/uL (4.30-5.90); RDW 14.2 % (11.5-15.5); WBC 10.9 k/uL (3.8-10.6)
[2023-10-19] MEDS: METOPROLOL TARTRATE 25 MG TAB PO STA (06:16)
[2023-10-19 06:23] LABS: African American GFR (CKD) >90 (>60 ml/min/1.73 sqM); Anion Gap 2 mmol/L; Blood Urea Nitrogen 51 mg/dL (9-20); Calcium 8.2 mg/dL (8.4-10.2); Carbon Dioxide 35 mmol/L (22-30); Chloride 111 mmol/L (98-107); Glucose 223 mg/dL (74-99); Non-African American GFR(CKD) >90 (>60 ml/min/1.73 sqM); Potassium 3.9 mmol/L (3.5-5.1); Sodium 148 mmol/L (137-145)
[2023-10-19] MEDS: POTASSIUM CHLORIDE ER 20 MEQ TAB.ER PO SCH (06:42)
[2023-10-19] MEDS: METOPROLOL TARTRATE 25 MG TAB PO SCH (08:05)
--- NOTE | 2023-10-19 09:18 | P.PN ---
Subjective Progress Note Date: 10/18/23 Patient is a 63-year-old male with a past medical history of COPD on home oxygen, hypertension, chronic back pain, history of cervical fusion surgery, depression currently everyday smoker and marijuana use. Patient presents to ER with complaints of worsening shortness of breath anxiety, chills and fever. Patient was tachycardic and tachypneic on admission. States that he has subjective fevers. Cough and congestion and unable to bring out any sputum. No complaints of chest pain. No nausea vomiting abdominal pain or diarrhea. No headache or dizziness or neck stiffness. Chest x-ray showed perihilar infiltrates in the deflector lobar pneumonia. Correlate clinically and appropriate studies are recommended. EKG showed atrial fibrillation with rapid ventricular response. Patient had a cardiac catheterization on 09/14/2023 showed relatively normal coronaries and normal left sided filling pressures. Laboratory test showed WBC 23.7 hemoglobin 14.2 and platelets 265 Sodium 141 potassium 3.8 chloride 104 bicarb is 22 BUN 16 and creatinine 0.94 and blood sugar 89 and lactic acid 4.7 and magnesium 1.5 Coral Elevated procalcitonin level 2.4. Troponin x 1 negative proBNP 262 10/14/2023 Patient is awake alert and still having shortness of breath. Oxygen requirement increased and patient is placed on 100% nonrebreather. Also tachypneic. No complaints of chest pain. No fever no chills. Patient is being continued on IV antibiotics ceftriaxone and azithromycin. Patient is also on DuoNebs and IV steroids. ABG showed pH 7.28 pCO2 48 and pO2 133. Other laboratory data showed WBC 18.1 hemoglobin 11.9 and platelets 192 sodium 139 potassium 4.2 chloride 114 bicarb is 22 BUN 28 and creatinine 0.69 and blood sugar is 146. Patient is being transferred to MICU due to worsening respiratory status and patient needs intubation. 10/15/2023 Patient is in the MICU. Intubated and on mechanical ventilator. Patient is also requiring pressor support. Due to worsening respiratory disease patient was transferred to MICU yesterday. Currently on assist-control with respiratory 28 tidal volume 400 FiO2 50% and PEEP of 8. Laboratory data showed WBC 15.3 hemoglobin 10.9 and platelets 208 Sodium 141 potassium 4.8 chloride 115 bicarb is 24 BUN 26 and creatinine 0.82 and blood sugar 151. Antibiotics changed to vancomycin and Zosyn. Patient is also on anticoagulation with Eliquis due to new onset A-fib. Cardiology and pulmonary is on board. 10/16/2023 Patient is a MICU. Sedated with propofol and is also on fentanyl. ABG showed pH 7.3 pCO2 47 and pO2 116. Remains on assist control with PEEP of 8. Patient is status post bronchoscopy on 10/15/2023. Chest x-ray today showed worsening diffuse increased lung markings correlate for pulmonary edema. Patient is also on amiodarone drip for atrial fibrillation. Rate is controlled. Converted to sinus rhythm. Laboratory data showed WBC 8.2 hemoglobin 10.4 and platelets 200 Sodium 140 potassium 4.4 chloride 106 bicarb is 20 BUN 25 and creatinine 0.77 and blood sugar 166 and calcium 8.4. Cultures negative so far. Patient is being continued on antibiotics Zosyn and vancomycin. 10/17/2023 Patient is in the ICU. Intubated and on mechanical data. Continued on propofol and fentanyl drips. Patient was also started back on Nimbex drip. Currently on assist-control with respiratory 28 tidal volume 350 FiO2 50% and PEEP of 6. Chest x-ray today showed diffuse increased lung markings improved from comparison. Laboratory data showed WBC 8.3 hemoglobin 10.3 and platelets 201 sodium 144 potassium 4.1 chloride 108 bicarb is 22 BUN 38 creatinine 0.8 and blood sugar 192 and -2.4 Patient remains on antibiotics Zosyn and vancomycin. Anticoagulation with Eliquis and also on amiodarone 200 mg p.o. twice daily. Patient is also on IV Lasix. Currently maintaining sinus rhythm. Cardiology and pulmonary is on board. 10/18/2023 Patient is in the MICU. On mechanical ventilator. Sedated. And looks to be soft. Blood pressure is also stable and currently off pressor support. Patient is being continued on IV Lasix 40 mg twice daily. Chest x-ray showed increased right lower lobe pulm infiltrate somewhat improvement in the aeration bilaterally. Laboratory pressure WBC 8.6 hemoglobin 11.1 and platelets 185 sodium 144 potassium 3.5 chloride 113 bicarb is 29 BUN 43 and creatinine 0.85 blood sugar 206. Patient is on antibiotics in the form of vancomycin and Zosyn. Patient is back to sinus rhythm. Currently on oral amiodarone. Also on metoprolol. Started on anticoagulation with Eliquis. Cardiology and pulmonary is on board. Current medications reviewed. Objective - Vital Signs Vital signs: Vital Signs Temp 98.8 F 10/18/23 20:00 Pulse 105 H 10/18/23 21:00 Resp 28 H 10/18/23 21:00 BP 102/60 10/18/23 08:00 Pulse Ox 97 10/18/23 21:00 FiO2 50 10/18/23 21:00 Intake & Output 10/18/23 10/18/23 10/19/23 06:59 18:59 06:59 Intake Total 0440.540 3026.408 234.204 Output Total 4725 3410 550 Balance -3361.852 -1294.592 -315.796 Weight 84.2 kg 84.2 kg Intake: IV 290 987 46 0.9 27 6 Piperacillin-Tazobactam 3 50 200 .375 gm In Sodium Chloride 0.9% 100 ml @ 25 mls/hr IVPB Q8H [facility] Rx#: [id number] Sodium Chloride 0.9% 1, 240 260 40 000 ml @ 20 mls/hr IV . Q24H [facility] Rx#:[id number] Vancomycin 1,500 mg In 500 Sodium Chloride 0.9% 500 ml 500 ml @ 167 mls/hr IVPB Q12HR [facility] Rx#: [id number] Intake, IV Titration 533.148 353.408 86.204 Amount Cisatracurium 200 mg In 84.076 53.408 Sodium Chloride 0.9% 180 ml @ 1 MCG/KG/MIN 3.81 mls/hr IV .Q24H [facility] Rx#: [id number] fentaNYL (PF). 1,000 mcg 100 100 In Sodium Chloride 0.9% 80 ml @ 0.5 MCG/KG/HR 3. 175 mls/hr IV .Q24H [facility] Rx#:[id number] propofoL 1,000 mg In 349.072 200 86.204 Empty Bag 1 bag @ 15 MCG/ KG/MIN 5.715 mls/hr IV . [id number] [facility] Rx#:[id number] Oral 160 Tube Feeding 540 525 102 Other 90 Output: Urine 4725 3410 550 Other: Voiding Method Indwelling Catheter Indwelling Catheter Indwelling Catheter ABP, PAP, CO, CI - Last Documented Arterial Blood Pressure 149/83 - Exam PHYSICAL EXAMINATION: Patient is is currently intubated and on mechanical ventilator... HEENT: Normocephalic. Neck is supple. Pupils reactive. Nostrils clear. Oral cavity is moist. Neck reveals no JVD, carotid bruits, or thyromegaly. CHEST EXAMINATION: Trachea is central. Symmetrical expansion. Bilateral coarse breath sounds and scattered rhonchi. CARDIAC: Normal S1, S2 with no gallops. No murmurs ABDOMEN: Soft. Bowel sounds normal. No organomegaly. No abdominal bruits. Extremities: reveal no edema. No clubbing or cyanosis Neurologically sedated and intubated. No gross focal deficits noted Skin: No rash or skin lesions. Psychiatric: Could not be assessed completely Musculoskeletal: No joint swelling or deformity. - Labs CBC & Chem 7: 10/19/23 05:58 10/19/23 05:58 Labs: Abnormal Lab Results - Last 24 Hours (Table) 10/17/23 10/17/23 10/17/23 Range/Units 21:26 22:52 23:19 RBC (4.30-5.90) m/uL Hgb (13.0-17.5) gm/dL Hct (39.0-53.0) % Lymphocytes # (1.0-4.8) k/uL ABG pH 7.34 L (7.35-7.45) ABG pCO2 52 H (35-45) mmHg ABG HCO3 28 H (21-25) mmol/L ABG O2 Saturation 98.7 H (94-97) % Chloride 115 H (98-107) mmol/L BUN 39 H (9-20) mg/dL Glucose 163 H (74-99) mg/dL POC Glucose (mg/dL) 201 H (70-110) mg/dL Calcium (8.4-10.2) mg/dL 10/17/23 10/18/23 10/18/23 Range/Units 23:53 05:12 05:52 RBC (4.30-5.90) m/uL Hgb (13.0-17.5) gm/dL Hct (39.0-53.0) % Lymphocytes # (1.0-4.8) k/uL ABG pH (7.35-7.45) ABG pCO2 54 H (35-45) mmHg ABG HCO3 30 H (21-25) mmol/L ABG O2 Saturation 97.7 H (94-97) % Chloride (98-107) mmol/L BUN (9-20) mg/dL Glucose (74-99) mg/dL POC Glucose (mg/dL) 230 H 192 H (70-110) mg/dL Calcium (8.4-10.2) mg/dL 10/18/23 10/18/23 10/18/23 Range/Units 06:55 06:55 11:58 RBC 3.93 L (4.30-5.90) m/uL Hgb 11.1 L (13.0-17.5) gm/dL Hct 35.3 L (39.0-53.0) % Lymphocytes # 0.4 L (1.0-4.8) k/uL ABG pH (7.35-7.45) ABG pCO2 (35-45) mmHg ABG HCO3 (21-25) mmol/L ABG O2 Saturation (94-97) % Chloride 113 H (98-107) mmol/L BUN 43 H (9-20) mg/dL Glucose 206 H (74-99) mg/dL POC Glucose (mg/dL) 225 H (70-110) mg/dL Calcium 8.3 L (8.4-10.2) mg/dL 10/18/23 Range/Units 17:28 RBC (4.30-5.90) m/uL Hgb (13.0-17.5) gm/dL Hct (39.0-53.0) % Lymphocytes # (1.0-4.8) k/uL ABG pH (7.35-7.45) ABG pCO2 (35-45) mmHg ABG HCO3 (21-25) mmol/L ABG O2 Saturation (94-97) % Chloride (98-107) mmol/L BUN (9-20) mg/dL Glucose (74-99) mg/dL POC Glucose (mg/dL) 197 H (70-110) mg/dL Calcium (8.4-10.2) mg/dL Microbiology - Last 24 Hours (Table) 10/15/23 11:10 Gram Stain - Preliminary Bronchoalviolar Lavage - Right Bronchial Washings Culture - Final 10/12/23 18:57 Blood Culture - Final Blood 10/12/23 18:40 Blood Culture - Final Blood Assessment and Plan Assessment: Acute on chronic hypoxemic respiratory failure secondary to COPD and pneumonia. Patient was on 100% nonrebreather currently requiring mechanical ventilator. Acute COPD exacerbation Bilateral pneumonia Sepsis secondary to pneumonia New onset A-fib with RVR as per EKG on admission Ongoing nicotine addiction GERD Hypertension Prior history of pneumonia Depression Marijuana use COPD on home oxygen as needed DVT prophylaxis with heparin subcu Plan: Patient is in ICU. Sedated and intubated. Continue with telemetry monitoring. Antibiotic changed to vancomycin and Zosyn.. Urine Legionella antigen is negative. Patient is status post bronchoscopy on 10/15/2023 Follow-up blood cultures and sputum cultures and BAL cultures.. Patient is being continued on IV Solu-Medrol, DuoNebs and oxygen supplementation. Patient was started on anticoagulation with Eliquis due to new onset atrial fibrillation.. Continue with metoprolol and amiodarone. Patient was also started on IV Lasix. Cardiology and pulmonary is on board. Continue to follow closely. Prognosis is guarded. Time with Patient: Greater than 30
[2023-10-19] MEDS: DEXTROSE 5% IN WATER 100 ML with AMIODARONE 150 MG IV ONE (09:38)
[2023-10-19] MEDS: DOCUSATE ORAL SOLN 100 MG/10 ML CUP PO PRN (11:14)
--- NOTE | 2023-10-19 11:16 | PN ---
PROGRESS NOTE 63-year-old gentleman, who is in ICU with respiratory failure from COPD exacerbation, intubated on vent. We were consulted because of episodes of atrial fibrillation. The patient went back into atrial fibrillation yesterday and remains in atrial fibrillation with poorly controlled ventricular rate. PHYSICAL EXAMINATION: VITAL SIGNS: Heart rate is 105 beats per minute, irregular, blood pressure is 124/67, respiratory rate 24. CHEST: Reveals diminished air entry at the bases. HEART: Reveals first and second heart sounds. Irregular rhythm and a systolic murmur at the left lower sternal border. ABDOMEN: Soft. EXTREMITIES: Reveals mild edema. Peripheral pulses are felt. LABS: Show a creatinine of 0.8, potassium is 3.9, hemoglobin is 11.8. ASSESSMENT: Persistent atrial fibrillation with poorly controlled ventricular rate. The patient is on amiodarone 200 b.i.d., Eliquis, Lipitor, and metoprolol, whose dose I am going to increase. MMODL / IJN: [id number] /
[2023-10-19 11:53] LABS: Glucose,Whole Blood 224 mg/dL (70-110)
--- NOTE | 2023-10-19 12:23 | XR ---
EXAMINATION TYPE: XR chest 1V portable DATE OF EXAM: 10/19/2023 COMPARISON: 10/18/2023 INDICATION: Mechanical ventilation TECHNIQUE: Single frontal view of the chest is obtained. FINDINGS: The heart size is mildly prominent. The pulmonary vasculature is normal. Right lower lobe infiltrate has developed. Correlate for pneumonia or atelectasis. Mild diffuse incre ased lung markings on the left. Endotracheal tube tip is 5 cm above the enriqueta. Nasogastric tube tip is within the mid abdomen left c entral venous catheter tip is in the superior vena cava. IMPRESSION: 1. Developing bilateral lung infiltrates more focal on the right. Correlate for pneumonia and atelect asis. Atypical pulmonary edema could be considered. 2. Lines and catheters discussed above
[2023-10-19] MEDS ORDERED: Potassium Replacement Protocol 1 EACH MISC MISCELLANE PRN ×2 (12:26→19:16)
--- NOTE | 2023-10-19 12:41 | P.PN ---
Subjective Progress Note Date: 10/19/23 On 10/15/2023, patient is being seen for a follow-up. The patient remains intubated on the mechanical ventilator with diffuse bilateral pulmonary filtrates, likely presenting bilateral pneumonia. This morning, the patient is on propofol at 75 mcg/kg/min and the patient is also on fentanyl at 1.5 mcg/kg/ h. The patient is on assist-control mechanical ventilation at rate of 28, tidal volume of 400, FiO2 of 50% with a PEEP of 8. Peak airway pressures 32. The static airway pressure is 29. Blood gas shows a pH of 7.18 with a pCO2 of 62 and pO2 of 160. Hemodynamically, the patient remains hypotensive and currently is on norepinephrine at low-dose running at 0.04 mcg/kg/min and the patient is also on normal saline at rate of 75 cc an hour. The white cell count is at 15.3 with a hemoglobin 10.9 and a platelet count of 208. BUN is at 26 with a creatinine of 0.8 and sodium levels at 141 with a potassium level of 4.8 with a serum bicarb of 24. The chloride is at 115. The patient was receiving IV Rocephin. Cardiac rhythm is sinus. Remains on bronchodilators. Remains on steroids. Echocardiogram completed this morning a preserved LV function with an EF of around 55 to 60% without any significant valvular abnormalities. Right ventricular systolic pressure estimated to be around 38. Chest x-ray showing diffuse bilateral pulmonary infiltrates. Cultures are negative thus far. 10/16/2023, the patient is being seen for a follow-up. The patient remains sedated on propofol which is running at 75 mcg/kg/min and the patient is currently on fentanyl at 1.5 mcg/kg/h. The patient was taken off the Nimbex yesterday. Remains intubated on the mechanical ventilator. Remains on assist-control mode with rate of 20, tidal volume of 400, FiO2 of 50% with a PEEP of 8, and the patient blood gas showed pH 7.30 with a pCO2 of 47 and pO2 of 116. The bronchoscopy was done yesterday and the results of bronchial lavage are still pending. Chest x-ray showing diffuse bilateral pulm infiltrates, unchanged compared to yesterday. ET tube is in a good location. Echocardiogram was done yesterday and the patient was found to have a preserved LV function without any significant valvular abnormalities. Right ventricular systolic pressure was estimated to be at 35. No evidence of any pericardial effusion. The patient remains on Zosyn and vancomycin. Cultures are still pending for now. The patient is afebrile. The patient remains off pressors. Norepinephrine was weaned off and discontinued without any major difficulties and the patient is maintaining his own blood pressure. The patient however is on amiodarone drip at 0.5 mg/min regarding atrial fibrillation and his rate is controlled and converted into normal sinus rhythm. He remains on normal citrate of 75 cc an hour. He is on enteral feeding for nutritional support with vital high-protein at a rate of 30 cc an hour. Fluid balance is +3.1 L over the past 24 hours. On today's evaluation of 10/17/2023, seen the patient for a follow-up. Remains intubated on mechanical ventilator. This morning, the patient is on propofol running at 75 mcg/kg/min and fentanyl at 2 mcg/kg/h. The patient is also on Nimbex for paralysis as the patient was quite asynchronous with mechanical ventilator and the patient was peak pressuring yesterday Nimbex is running at 2 mcg/kg/min. The patient is currently on assist-control mode of mechanical ventilation at rate of 28, tidal volume of 350, FiO2 of 50% and PEEP of 6. The blood gas from today shows a pH of 7.24 with a pCO2 of 55 and a pO2 of 108. Chest x-ray from today shows diffuse bilateral pulmonary filtrates with some limited improvement in patient compared to yesterday. Bronchoscopy and bronchial lavage was done and the microbial culture is still pending is negative thus far and the patient remains on a combination of Zosyn and vancomycin. The vancomycin trough level was at 21. BUN is at 30 with a creatinine of 0.8 and sodium level at 144. WBC count is 8.3 with a hemoglobin 10.5 and a platelet count of 201. The patient remains on vital high-protein at 30 to 45 cc an hour. Fluid balance is +3.6 L over the past 24 hours. Meanwhile, the patient had an episode of atrial fibrillation yesterday with rapid ventricular response. The patient was loaded with amiodarone and currently is back in normal sinus rhythm. Amiodarone is running at 200 mg p.o. twice a day. The patient is also on anticoagulation with Eliquis 5 mg p.o. twice a day. The patient on Toprol-XL 25 mg p.o. daily. IV Solu-Medrol was also added. On 10/18/2023, seen the patient for a follow-up. Patient remains intubated on the mechanical ventilator. On today's evaluation, the patient is on propofol at 75 mcg/kg/min and fentanyl at 2 mcg/kg/h. The patient is also paralyzed as the patient was peak pressuring yesterday. Nimbex is running at 3 mcg/kg/min. Remains on mechanical ventilator. Peak airway pressure is 30. Static airway pressure is 20. Patient is on assist-control mode at rate of 28, tidal volume of 350, fentanyl 50% with a PEEP of 6. pH is at 7.36 with a pCO2 of 54 and pO2 of 69. The chest x-ray shows increased right lower lobe pulmonary infiltration, some interval improvement in the aeration bilaterally. Orotracheal tube is in the mid location. Patient is on no pressors. The patient was started on Lasix 40 mg IV every 12 hours and the patient is negative fluid balance of 2.9 L over the past 24 hours. The patient is receiving enteral feeding for nutritional support. Antibiotic coverage is unchanged. Remains on Zosyn and vancomycin. Cultures are all negative. BUN is 43 with a creatinine of 0.8 and sodium levels at 144. WBC count 0.6 with a hemoglobin of 11.1 and a platelet count of 185. Afebrile for now. Meanwhile, the patient is having some ectopies. He did have a run of atrial fibrillation yesterday and currently is back in normal sinus rhythm and the patient is on oral amiodarone. Patient is also on metoprolol 25 mg p.o. Anticoagulation with Eliquis. 10/19/2023, the patient is being seen for a follow-up. Remains intubated on mechanical ventilator. Chest x-ray still showing diffuse bilateral pulm infiltrates. Stable compared to yesterday. No significant interval improvement in chest x-ray findings. Right ear this morning, the patient developed A-fib RVR. He will be given another bolus of amiodarone 150 mg. He is on oral amiodarone 200 mg p.o. twice a day and metoprolol 25 mg 3 times daily. Rate is under better control for now. Remains on propofol at 75 mcg/kg/min and fentanyl at 2 mcg/kg/h. He is currently off Nimbex. He is on assist-control mode with rate of 28, tidal volume of 350, 150% with a PEEP of 6. pH is at 7.44 with a pCO2 of 52 and pO2 of 84. Fluid balance -3.3 L over the past 24 hours. White cell count is at 10.9 with a hemoglobin 11.8 and platelet count of 223. Sodium is at 148, potassium 3.8, bicarb is at 35, BUN is 51 with a creatinine of 0.8. The patient is on vital high-protein for enteral feeding and nutritional support at the rate of 51 cc an hour. The patient will need a laxative for bowel movement activity. Remains on Zosyn and vancomycin. All of the cultures have been negative. Objective - Vital Signs Vital signs: Vital Signs Temp 100.8 F H 10/19/23 08:00 Pulse 103 H 10/19/23 09:10 Resp 28 H 10/19/23 09:00 BP 102/60 10/18/23 08:00 Pulse Ox 95 10/19/23 09:00 FiO2 50 10/19/23 08:06 Intake & Output 10/18/23 10/19/23 10/19/23 18:59 06:59 18:59 Intake Total 2115.408 1239.976 335 Output Total 3410 3325 250 Balance -1294.592 -2085.024 85 Weight 84.2 kg 82.4 kg Intake: IV 987 193 193 0.9 27 33 6 Piperacillin-Tazobactam 3 200 .375 gm In Sodium Chloride 0.9% 100 ml @ 25 mls/hr IVPB Q8H [facility] Rx#: [id number] Sodium Chloride 0.9% 1, 260 160 20 000 ml @ 20 mls/hr IV . Q24H [facility] Rx#:[id number] Vancomycin 1,500 mg In 500 167 Sodium Chloride 0.9% 500 ml 500 ml @ 167 mls/hr IVPB Q12HR [facility] Rx#: [id number] Intake, IV Titration 353.408 587.976 40 Amount Cisatracurium 200 mg In 53.408 Sodium Chloride 0.9% 180 ml @ 1 MCG/KG/MIN 3.81 mls/hr IV .Q24H [facility] Rx#: [id number] Sodium Chloride 0.9% 1, 60 40 000 ml @ 20 mls/hr IV . Q24H [facility] Rx#:[id number] fentaNYL (PF). 1,000 mcg 100 175.571 In Sodium Chloride 0.9% 80 ml @ 0.5 MCG/KG/HR 3. 175 mls/hr IV .Q24H [facility] Rx#:[id number] propofoL 1,000 mg In 200 352.405 Empty Bag 1 bag @ 15 MCG/ KG/MIN 5.715 mls/hr IV . [id number] [facility] Rx#:[id number] Oral 160 Tube Feeding 525 459 102 Other 90 Output: Urine 3410 3325 250 Other: Voiding Method Indwelling Catheter Indwelling Catheter Indwelling Catheter # Bowel Movements 1 ABP, PAP, CO, CI - Last Documented Arterial Blood Pressure 124/67 - Exam Pulmonary comfortable, intubated on mechanical ventilator, sedated with propofol and fentanyl. Orogastric and orotracheal tube are both in place. The patient is also paralyzed with Nimbex. Head exam was generally normal. There was no scleral icterus or corneal arcus. Mucous membranes were moist. HEENT examination is grossly unremarkable. Mucous membranes are moist. No oral lesions. Neck supple. Full range of motion. No adenopathy thyromegaly or neck vein distention. Cardiovascular examination reveals regular rhythm rate. S1-S2 normal. No S3 or S4. No discernible murmur noted. Heart sounds are distant. Lungs reveal bilateral scattered inspiratory and expiratory rhonchi. Breath sounds are equal. No crackles or wheezes. Lung sounds are diminished bilaterally and the patient has diminished breath sounds Abdominal exam revealed normal bowel sounds. The abdomen was soft, non-tender, and without masses, organomegaly, or appreciable enlargement of the abdominal aorta. Extremities are intact. No cyanosis clubbing or edema. Skin is without rash or lesion. Neurologic examination is brief but nonfocal. The patient is sedated and currently patient is calm and comfortable. - Labs CBC & Chem 7: 10/19/23 05:58 10/19/23 10:25 Labs: Abnormal Lab Results - Last 24 Hours (Table) 10/18/23 10/18/23 10/18/23 Range/Units 11:58 17:28 23:45 WBC (3.8-10.6) k/uL RBC (4.30-5.90) m/uL Hgb (13.0-17.5) gm/dL Hct (39.0-53.0) % Neutrophils # (1.3-7.7) k/uL Lymphocytes # (1.0-4.8) k/uL ABG pCO2 (35-45) mmHg ABG HCO3 (21-25) mmol/L ABG O2 Saturation (94-97) % Sodium (137-145) mmol/L Chloride (98-107) mmol/L Carbon Dioxide (22-30) mmol/L BUN (9-20) mg/dL Glucose (74-99) mg/dL POC Glucose (mg/dL) 225 H 197 H 207 H (70-110) mg/dL Calcium (8.4-10.2) mg/dL 10/19/23 10/19/23 10/19/23 Range/Units 05:38 05:48 05:58 WBC 10.9 H (3.8-10.6) k/uL RBC 4.19 L (4.30-5.90) m/uL Hgb 11.8 L (13.0-17.5) gm/dL Hct 37.8 L (39.0-53.0) % Neutrophils # 9.8 H (1.3-7.7) k/uL Lymphocytes # 0.5 L (1.0-4.8) k/uL ABG pCO2 52 H (35-45) mmHg ABG HCO3 36 H (21-25) mmol/L ABG O2 Saturation 97.1 H (94-97) % Sodium (137-145) mmol/L Chloride (98-107) mmol/L Carbon Dioxide (22-30) mmol/L BUN (9-20) mg/dL Glucose (74-99) mg/dL POC Glucose (mg/dL) 207 H (70-110) mg/dL Calcium (8.4-10.2) mg/dL 10/19/23 Range/Units 05:58 WBC (3.8-10.6) k/uL RBC (4.30-5.90) m/uL Hgb (13.0-17.5) gm/dL Hct (39.0-53.0) % Neutrophils # (1.3-7.7) k/uL Lymphocytes # (1.0-4.8) k/uL ABG pCO2 (35-45) mmHg ABG HCO3 (21-25) mmol/L ABG O2 Saturation (94-97) % Sodium 148 H (137-145) mmol/L Chloride 111 H (98-107) mmol/L Carbon Dioxide 35 H (22-30) mmol/L BUN 51 H (9-20) mg/dL Glucose 223 H (74-99) mg/dL POC Glucose (mg/dL) (70-110) mg/dL Calcium 8.2 L (8.4-10.2) mg/dL Microbiology - Last 24 Hours (Table) 10/15/23 11:10 Gram Stain - Preliminary Bronchoalviolar Lavage - Right Bronchial Washings Culture - Final Assessment and Plan Plan: Acute exacerbation of chronic COPD, with development of diffuse bilateral pulmonary infiltrates with rapid progression over the past 24 to 48 hours with subsequent respiratory failure requiring intubation mechanical ventilation. At this point in time the patient has diffuse bilateral pulmonary infiltrates, intubated on mechanical ventilator. Suspected bacterial infection. Procalcitonin level was elevated at the time of admission at 2.2. In addition, the patient had elevated white cell count. The antibiotic coverage has been sw itched to a combination of Zosyn and vancomycin. Bronchoscopy endobronchial lavage was done and the results are not showing any microbial growth. The patient is afebrile. No significant leukocytosis. Remains on same antibiotic coverage. Limited improvement in chest x-ray findings on today's evaluation. No major change in the x-ray findings. Blood gases are noted. The patient is currently off paralytics. The patient is sedated with a combination of fentanyl and propofol. Hemodynamically stable. Diuresing well on IV Lasix. Acute leukocytosis, improved and the white cell count is improved Acute hypercapnic respiratory failure, stable, improved Acute hypoxic respiratory failure, remains intubated on mechanical ventilator Hypotension, likely septic in nature and the patient is currently off pressors Paroxysmal A-fib, currently back in normal sinus rhythm and the patient is c urrently on Toprol-XL 25 mg p.o. daily and amiodarone 200 mg p.o. twice a day and anticoagulation with Eliquis.. The patient had another paroxysmal A-fib with RVR this morning and the patient was loaded on his dose of amiodarone Previous history of COPD exac progressive bilateral pulmonary infiltrates with rapiderbation requiring intubation and mechanical ventilatory support on 05/19/2023. The patient was extubated on 05/23/2023 Previous history of pseudomonal growth in the sputum rule out pseudomonal tracheal bronchitis/pneumonia. 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 Previous serum Aspergillus antibodies obtained in April 2023 was negative Chronic and ongoing tobacco dependence of nearly 50 years History of alcoholism Marijuana use History of depression Plan Continue ventilator support, no ventilator changes for today Continue propofol and fentanyl, the patient is currently off paralytics The bronchioloalveolar lavage was negative for any microbial, bacterial, fungal or viral elements. Continue IV Zosyn and vancomycin Procalcitonin level was elevated. Will monitor the levels Change IV fluids to KVO Discontinued IV Lasix and monitor the serum sodium level and replace the potassium Continue enteral feeding for nutritional support Daily chest x-rays Echocardiogram to be done today to evaluate LV function, this was noted and the patient has a preserved LV function without any valvular abnormalities. Will continue to follow and make further recommendation based on his progress. This evaluation was done more than 30 minutes excluding time to any procedures. Condition is critical. Will continue to follow. Time with Patient: Greater than 30
[2023-10-19] MEDS: POTASSIUM BICARBONATE/CIT AC 20 MEQ TABLET.EFF NG-TUBE SCH ×2 (14:19→18:19)
--- NOTE | 2023-10-19 16:09 | P.PN ---
Subjective Progress Note Date: 10/19/23 63-year-old male with a past medical history of COPD on home oxygen, hypertension, chronic back pain, history of cervical fusion surgery, depression currently everyday smoker and marijuana use. Patient presents to ER with complaints of worsening shortness of breath anxiety, chills and fever. Patient was tachycardic and tachypneic on admission. States that he has subjective fevers. Cough and congestion and unable to bring out any sputum. No complaints of chest pain. No nausea vomiting abdominal pain or diarrhea. No headache or dizziness or neck stiffness. Chest x-ray showed perihilar infiltrates in the deflector lobar pneumonia. Correlate clinically and appropriate studies are recommended. EKG showed atrial fibrillation with rapid ventricular response. Patient had a cardiac catheterization on 09/14/2023 showed relatively normal coronaries and normal left sided filling pressures. Laboratory test showed WBC 23.7 hemoglobin 14.2 and platelets 265 Sodium 141 potassium 3.8 chloride 104 bicarb is 22 BUN 16 and creatinine 0.94 and blood sugar 89 and lactic acid 4.7 and magnesium 1.5 Bailey Elevated procalcitonin level 2.4. Troponin x 1 negative proBNP 262 Objective - Vital Signs Vital signs: Vital Signs Temp 100.8 F H 10/19/23 08:00 Pulse 103 H 10/19/23 09:10 Resp 28 H 10/19/23 09:00 BP 102/60 10/18/23 08:00 Pulse Ox 95 10/19/23 09:00 FiO2 50 10/19/23 08:06 Intake & Output 10/18/23 10/19/23 10/19/23 18:59 06:59 18:59 Intake Total 2115.408 1239.976 549.253 Output Total 3410 3325 600 Balance -1294.592 -2085.024 -50.747 Weight 84.2 kg 82.4 kg Intake: IV 987 193 241 0.9 27 33 9 Piperacillin-Tazobactam 3 200 25 .375 gm In Sodium Chloride 0.9% 100 ml @ 25 mls/hr IVPB Q8H [facility] Rx#: [id number] Sodium Chloride 0.9% 1, 260 160 40 000 ml @ 20 mls/hr IV . Q24H [facility] Rx#:[id number] Vancomycin 1,500 mg In 500 167 Sodium Chloride 0.9% 500 ml 500 ml @ 167 mls/hr IVPB Q12HR [facility] Rx#: [id number] Intake, IV Titration 353.408 587.976 155.253 Amount Cisatracurium 200 mg In 53.408 Sodium Chloride 0.9% 180 ml @ 1 MCG/KG/MIN 3.81 mls/hr IV .Q24H [facility] Rx#: [id number] Sodium Chloride 0.9% 1, 60 60 000 ml @ 20 mls/hr IV . Q24H [facility] Rx#:[id number] fentaNYL (PF). 1,000 mcg 100 175.571 In Sodium Chloride 0.9% 80 ml @ 0.5 MCG/KG/HR 3. 175 mls/hr IV .Q24H [facility] Rx#:[id number] propofoL 1,000 mg In 200 352.405 95.253 Empty Bag 1 bag @ 15 MCG/ KG/MIN 5.715 mls/hr IV . [id number] [facility] Rx#:[id number] Oral 160 Tube Feeding 525 459 153 Other 90 Output: Urine 3410 3325 600 Other: Voiding Method Indwelling Catheter Indwelling Catheter Indwelling Catheter # Bowel Movements 1 ABP, PAP, CO, CI - Last Documented Arterial Blood Pressure 124/67 - Exam Patient is is currently intubated and on mechanical ventilator... HEENT: Normocephalic. Neck is supple. Pupils reactive. Nostrils clear. Oral ca vity is moist. Neck reveals no JVD, carotid bruits, or thyromegaly. CHEST EXAMINATION: Trachea is central. Symmetrical expansion. Bilateral coarse breath sounds and scattered rhonchi. CARDIAC: Normal S1, S2 with no gallops. No murmurs ABDOMEN: Soft. Bowel sounds normal. No organomegaly. No abdominal bruits. Extremities: reveal no edema. No clubbing or cyanosis Neurologically sedated and intubated. No gross focal deficits noted Skin: No rash or skin lesions. Psychiatric: Could not be assessed completely Musculoskeletal: No joint swelling or deformity. - Labs CBC & Chem 7: 10/19/23 05:58 10/19/23 10:25 Labs: Abnormal Lab Results - Last 24 Hours (Table) 10/18/23 10/18/23 10/18/23 Range/Units 11:58 17:28 23:45 WBC (3.8-10.6) k/uL RBC (4.30-5.90) m/uL Hgb (13.0-17.5) gm/dL Hct (39.0-53.0) % Neutrophils # (1.3-7.7) k/uL Lymphocytes # (1.0-4.8) k/uL ABG pCO2 (35-45) mmHg ABG HCO3 (21-25) mmol/L ABG O2 Saturation (94-97) % Sodium (137-145) mmol/L Chloride (98-107) mmol/L Carbon Dioxide (22-30) mmol/L BUN (9-20) mg/dL Glucose (74-99) mg/dL POC Glucose (mg/dL) 225 H 197 H 207 H (70-110) mg/dL Calcium (8.4-10.2) mg/dL 10/19/23 10/19/23 10/19/23 Range/Units 05:38 05:48 05:58 WBC 10.9 H (3.8-10.6) k/uL RBC 4.19 L (4.30-5.90) m/uL Hgb 11.8 L (13.0-17.5) gm/dL Hct 37.8 L (39.0-53.0) % Neutrophils # 9.8 H (1.3-7.7) k/uL Lymphocytes # 0.5 L (1.0-4.8) k/uL ABG pCO2 52 H (35-45) mmHg ABG HCO3 36 H (21-25) mmol/L ABG O2 Saturation 97.1 H (94-97) % Sodium (137-145) mmol/L Chloride (98-107) mmol/L Carbon Dioxide (22-30) mmol/L BUN (9-20) mg/dL Glucose (74-99) mg/dL POC Glucose (mg/dL) 207 H (70-110) mg/dL Calcium (8.4-10.2) mg/dL 10/19/23 Range/Units 05:58 WBC (3.8-10.6) k/uL RBC (4.30-5.90) m/uL Hgb (13.0-17.5) gm/dL Hct (39.0-53.0) % Neutrophils # (1.3-7.7) k/uL Lymphocytes # (1.0-4.8) k/uL ABG pCO2 (35-45) mmHg ABG HCO3 (21-25) mmol/L ABG O2 Saturation (94-97) % Sodium 148 H (137-145) mmol/L Chloride 111 H (98-107) mmol/L Carbon Dioxide 35 H (22-30) mmol/L BUN 51 H (9-20) mg/dL Glucose 223 H (74-99) mg/dL POC Glucose (mg/dL) (70-110) mg/dL Calcium 8.2 L (8.4-10.2) mg/dL Microbiology - Last 24 Hours (Table) 10/15/23 11:10 Gram Stain - Preliminary Bronchoalviolar Lavage - Right Bronchial Washings Culture - Final Assessment and Plan Assessment: Acute on chronic hypoxemic respiratory failure secondary to COPD and pneumonia. Patient was on 100% nonrebreather currently requiring mechanical ventilator. Acute COPD exacerbation Bilateral pneumonia Sepsis secondary to pneumonia New onset A-fib with RVR as per EKG on admission Ongoing nicotine addiction GERD Hypertension Prior history of pneumonia Depression Marijuana use COPD on home oxygen as needed DVT prophylaxis with heparin subcu Plan: Patient is in ICU. Sedated and intubated. Continue with telemetry monitoring. Antibiotic changed to vancomycin and Zosyn.. Urine Legionella antigen is negative. Patient is status post bronchos copy on 10/15/2023 Follow-up blood cultures and sputum cultures and BAL cultures.. Patient is being continued on IV Solu-Medrol, DuoNebs and oxygen supplementation. Patient was started on anticoagulation with Eliquis due to new onset atrial fibrillation.. Continue with metoprolol and amiodarone. Patient was also started on IV Lasix. Cardiology and pulmonary is on board. Continue to follow closely. Prognosis is guarded.
[2023-10-19 18:11] LABS: Glucose,Whole Blood 238 mg/dL (70-110)
[2023-10-19] MEDS ORDERED: POTASSIUM BICARBONATE/CIT AC 20 MEQ TABLET.EFF NG-TUBE SCH (20:00)
[2023-10-19 23:59] LABS: Glucose,Whole Blood 286 mg/dL (70-110)
[2023-10-20 05:54] LABS: Glucose,Whole Blood 235 mg/dL (70-110)
[2023-10-20 06:01] LABS: ABG Base Excess 13.3 mmol/L; ABG HCO3 38 mmol/L (21-25); ABG Oxygen Saturation 97.8 % (94-97); ABG PCO2 48 mmHg (35-45); ABG PH 7.51 (7.35-7.45); ABG PO2 86 mmHg (83-108); Allen Test Performed? Yes
[2023-10-20 06:05] LABS: HGB 11.2 gm/dL (13.0-17.5); MCH 28.6 pg (25.0-35.0); MCV 89.3 fL (80.0-100.0); Mean Platelet Volume 10.5; Platelet Count 213 k/uL (150-450); RBC 3.92 m/uL (4.30-5.90); RDW 14.2 % (11.5-15.5); WBC 16.1 k/uL (3.8-10.6)
[2023-10-20 06:15] LABS: African American GFR (CKD) >90 (>60 ml/min/1.73 sqM); Anion Gap 1 mmol/L; Blood Urea Nitrogen 49 mg/dL (9-20); Carbon Dioxide 38 mmol/L (22-30); Chloride 108 mmol/L (98-107); Glucose 226 mg/dL (74-99); Non-African American GFR(CKD) >90 (>60 ml/min/1.73 sqM); Potassium 3.8 mmol/L (3.5-5.1); Sodium 147 mmol/L (137-145)
[2023-10-20] MEDS ORDERED: Potassium Replacement Protocol 1 EACH MISC MISCELLANE PRN (06:27)
[2023-10-20] MEDS: POTASSIUM CHLORIDE ER 20 MEQ TAB.ER PO SCH (06:54)
[2023-10-20] MEDS: HYDROcodone/APAP 7.5-325MG 1 EACH TAB PO PRN (08:34)
[2023-10-20] MEDS ORDERED: METOPROLOL TARTRATE 25 MG TAB PO SCH (09:00)
[2023-10-20] MEDS: VANCOMYCIN TROUGH DUE 1 EACH MISC MISCELLANE ONE (09:20)
--- NOTE | 2023-10-20 09:37 | XR ---
EXAMINATION TYPE: XR chest 1V DATE OF EXAM: 10/20/2023 COMPARISON: 10/19/2023 INDICATION: Intubated difficulty breathing TECHNIQUE: Single frontal view of the chest is obtained. FINDINGS: The heart size is normal. The pulmonary vasculature is normal. Mild right lower lobe infiltrate may be worsening. There is silhouetting of the right diaphragm. Endotracheal tube tip remains above the enriqueta. Nasogastric tube tip is within the left upper quadran t of the abdomen. Left central venous catheter tip in superior vena cava region. IMPRESSION: 1. Mild worsening right lower lobe infiltrate. Correlate for pneumonia. Continued follow-up is recomm ended. 2. Stable positioning of lines and catheters discussed above
[2023-10-20 09:41] LABS: African American GFR (CKD) >90 (>60 ml/min/1.73 sqM); Non-African American GFR(CKD) >90 (>60 ml/min/1.73 sqM)
[2023-10-20 11:52] LABS: Glucose,Whole Blood 238 mg/dL (70-110)
--- NOTE | 2023-10-20 13:07 | P.PN ---
Subjective Progress Note Date: 10/20/23 On 10/15/2023, patient is being seen for a follow-up. The patient remains intubated on the mechanical ventilator with diffuse bilateral pulmonary filtrates, likely presenting bilateral pneumonia. This morning, the patient is on propofol at 75 mcg/kg/min and the patient is also on fentanyl at 1.5 mcg/kg/ h. The patient is on assist-control mechanical ventilation at rate of 28, tidal volume of 400, FiO2 of 50% with a PEEP of 8. Peak airway pressures 32. The static airway pressure is 29. Blood gas shows a pH of 7.18 with a pCO2 of 62 and pO2 of 160. Hemodynamically, the patient remains hypotensive and currently is on norepinephrine at low-dose running at 0.04 mcg/kg/min and the patient is also on normal saline at rate of 75 cc an hour. The white cell count is at 15.3 with a hemoglobin 10.9 and a platelet count of 208. BUN is at 26 with a creatinine of 0.8 and sodium levels at 141 with a potassium level of 4.8 with a serum bicarb of 24. The chloride is at 115. The patient was receiving IV Rocephin. Cardiac rhythm is sinus. Remains on bronchodilators. Remains on steroids. Echocardiogram completed this morning a preserved LV function with an EF of around 55 to 60% without any significant valvular abnormalities. Right ventricular systolic pressure estimated to be around 38. Chest x-ray showing diffuse bilateral pulmonary infiltrates. Cultures are negative thus far. 10/16/2023, the patient is being seen for a follow-up. The patient remains sedated on propofol which is running at 75 mcg/kg/min and the patient is currently on fentanyl at 1.5 mcg/kg/h. The patient was taken off the Nimbex yesterday. Remains intubated on the mechanical ventilator. Remains on assist-control mode with rate of 20, tidal volume of 400, FiO2 of 50% with a PEEP of 8, and the patient blood gas showed pH 7.30 with a pCO2 of 47 and pO2 of 116. The bronchoscopy was done yesterday and the results of bronchial lavage are still pending. Chest x-ray showing diffuse bilateral pulm infiltrates, unchanged compared to yesterday. ET tube is in a good location. Echocardiogram was done yesterday and the patient was found to have a preserved LV function without any significant valvular abnormalities. Right ventricular systolic pressure was estimated to be at 35. No evidence of any pericardial effusion. The patient remains on Zosyn and vancomycin. Cultures are still pending for now. The patient is afebrile. The patient remains off pressors. Norepinephrine was weaned off and discontinued without any major difficulties and the patient is maintaining his own blood pressure. The patient however is on amiodarone drip at 0.5 mg/min regarding atrial fibrillation and his rate is controlled and converted into normal sinus rhythm. He remains on normal citrate of 75 cc an hour. He is on enteral feeding for nutritional support with vital high-protein at a rate of 30 cc an hour. Fluid balance is +3.1 L over the past 24 hours. On today's evaluation of 10/17/2023, seen the patient for a follow-up. Remains intubated on mechanical ventilator. This morning, the patient is on propofol running at 75 mcg/kg/min and fentanyl at 2 mcg/kg/h. The patient is also on Nimbex for paralysis as the patient was quite asynchronous with mechanical ventilator and the patient was peak pressuring yesterday Nimbex is running at 2 mcg/kg/min. The patient is currently on assist-control mode of mechanical ventilation at rate of 28, tidal volume of 350, FiO2 of 50% and PEEP of 6. The blood gas from today shows a pH of 7.24 with a pCO2 of 55 and a pO2 of 108. Chest x-ray from today shows diffuse bilateral pulmonary filtrates with some limited improvement in patient compared to yesterday. Bronchoscopy and bronchial lavage was done and the microbial culture is still pending is negative thus far and the patient remains on a combination of Zosyn and vancomycin. The vancomycin trough level was at 21. BUN is at 30 with a creatinine of 0.8 and sodium level at 144. WBC count is 8.3 with a hemoglobin 10.5 and a platelet count of 201. The patient remains on vital high-protein at 30 to 45 cc an hour. Fluid balance is +3.6 L over the past 24 hours. Meanwhile, the patient had an episode of atrial fibrillation yesterday with rapid ventricular response. The patient was loaded with amiodarone and currently is back in normal sinus rhythm. Amiodarone is running at 200 mg p.o. twice a day. The patient is also on anticoagulation with Eliquis 5 mg p.o. twice a day. The patient on Toprol-XL 25 mg p.o. daily. IV Solu-Medrol was also added. On 10/18/2023, seen the patient for a follow-up. Patient remains intubated on the mechanical ventilator. On today's evaluation, the patient is on propofol at 75 mcg/kg/min and fentanyl at 2 mcg/kg/h. The patient is also paralyzed as the patient was peak pressuring yesterday. Nimbex is running at 3 mcg/kg/min. Remains on mechanical ventilator. Peak airway pressure is 30. Static airway pressure is 20. Patient is on assist-control mode at rate of 28, tidal volume of 350, fentanyl 50% with a PEEP of 6. pH is at 7.36 with a pCO2 of 54 and pO2 of 69. The chest x-ray shows increased right lower lobe pulmonary infiltration, some interval improvement in the aeration bilaterally. Orotracheal tube is in the mid location. Patient is on no pressors. The patient was started on Lasix 40 mg IV every 12 hours and the patient is negative fluid balance of 2.9 L over the past 24 hours. The patient is receiving enteral feeding for nutritional support. Antibiotic coverage is unchanged. Remains on Zosyn and vancomycin. Cultures are all negative. BUN is 43 with a creatinine of 0.8 and sodium levels at 144. WBC count 0.6 with a hemoglobin of 11.1 and a platelet count of 185. Afebrile for now. Meanwhile, the patient is having some ectopies. He did have a run of atrial fibrillation yesterday and currently is back in normal sinus rhythm and the patient is on oral amiodarone. Patient is also on metoprolol 25 mg p.o. Anticoagulation with Eliquis. 10/19/2023, the patient is being seen for a follow-up. Remains intubated on mechanical ventilator. Chest x-ray still showing diffuse bilateral pulm infiltrates. Stable compared to yesterday. No significant interval improvement in chest x-ray findings. Right ear this morning, the patient developed A-fib RVR. He will be given another bolus of amiodarone 150 mg. He is on oral amiodarone 200 mg p.o. twice a day and metoprolol 25 mg 3 times daily. Rate is under better control for now. Remains on propofol at 75 mcg/kg/min and fentanyl at 2 mcg/kg/h. He is currently off Nimbex. He is on assist-control mode with rate of 28, tidal volume of 350, 150% with a PEEP of 6. pH is at 7.44 with a pCO2 of 52 and pO2 of 84. Fluid balance -3.3 L over the past 24 hours. White cell count is at 10.9 with a hemoglobin 11.8 and platelet count of 223. Sodium is at 148, potassium 3.8, bicarb is at 35, BUN is 51 with a creatinine of 0.8. The patient is on vital high-protein for enteral feeding and nutritional support at the rate of 51 cc an hour. The patient will need a laxative for bowel movement activity. Remains on Zosyn and vancomycin. All of the cultures have been negative. 01/20/2024, patient is being seen for a follow-up. The patient remains intubated on mechanical ventilator. He is off Nimbex. Paralytics have been discontinued for the past 48 hours and the patient is on propofol and fentanyl. Propofol is at 60 mcg/kg/min and fentanyl is at 1 mcg/kg/h. Upon receiving a sedation holiday, the patient is arousable. Nevertheless, not absolutely ready to be weaned off the mechanical ventilator. There is interval improvement in aeration on today's chest x-ray. He remains on assist-control mode of mechanical ventilation at rate of 28, tidal volume of 350, FiO2 50% with a PEEP of 6. Blood gas shows a pH of 7.51 with a pCO2 of 48 and pO2 of 86. Fluid balance is -3.1 L over the past 24 hours and the patient was being diuresed with IV Lasix. The patient is also on vital high-protein at rate of 51 cc an hour. Hemodynamically stable. Afebrile. Remains on broad-spectrum antibiotics. Cultures are negative. Remains on IV Solu-Medrol. Cardiac rhythm has remained sinus over the past 24 hours. Remains on amiodarone. Remains on 200 mg amio darone twice a day and metoprolol 25 mg 3 times daily. Remains on anticoagulation with Eliquis. Objective - Vital Signs Vital signs: Vital Signs Temp 100.6 F H 10/20/23 08:00 Pulse 88 10/20/23 08:38 Resp 26 H 10/20/23 08:38 BP 102/60 10/18/23 08:00 Pulse Ox 96 10/20/23 08:00 FiO2 50 10/20/23 08:07 Intake & Output 10/19/23 10/20/23 10/20/23 18:59 06:59 18:59 Intake Total 1765.457 902.521 88.927 Output Total 2220 3600 100 Balance -454.543 -2697.479 -11.073 Weight 80 kg Intake: IV 553 36 3 0.9 36 36 3 Piperacillin-Tazobactam 3 150 .375 gm In Sodium Chloride 0.9% 100 ml @ 25 mls/hr IVPB Q8H [facility] Rx#: [id number] Sodium Chloride 0.9% 1, 200 000 ml @ 20 mls/hr IV . Q24H [facility] Rx#:[id number] Vancomycin 1,500 mg In 167 Sodium Chloride 0.9% 500 ml 500 ml @ 167 mls/hr IVPB Q12HR [facility] Rx#: [id number] Intake, IV Titration 450.457 254.521 34.927 Amount Sodium Chloride 0.9% 1, 60 000 ml @ 20 mls/hr IV . Q24H [facility] Rx#:[id number] fentaNYL (PF). 1,000 mcg 95.204 63.712 In Sodium Chloride 0.9% 80 ml @ 0.5 MCG/KG/HR 3. 175 mls/hr IV .Q24H [facility] Rx#:[id number] propofoL 1,000 mg In 295.253 190.809 34.927 Empty Bag 1 bag @ 15 MCG/ KG/MIN 5.715 mls/hr IV . [id number] [facility] Rx#:[id number] Tube Feeding 612 612 51 Other 150 Output: Urine 2220 3600 100 Other: Voiding Method Indwelling Catheter Indwelling Catheter # Bowel Movements 2 1 ABP, PAP, CO, CI - Last Documented Arterial Blood Pressure 158/80 - Exam Pulmonary comfortable, intubated on mechanical ventilator, sedated with propofol and fentanyl. Orogastric and orotracheal tube are both in place. The patient is also paralyzed with Nimbex. Head exam was generally normal. There was no scleral icterus or corneal arcus. Mucous membranes were moist. HEENT examination is grossly unremarkable. Mucous membranes are moist. No oral lesions. Neck supple. Full range of motion. No adenopathy thyromegaly or neck vein distention. Cardiovascular examination reveals regular rhythm rate. S1-S2 normal. No S3 or S4. No discernible murmur noted. Heart sounds are distant. Lungs reveal bilateral scattered inspiratory and expiratory rhonchi. Breath sounds are equal. No crackles or wheezes. Lung sounds are diminished bilaterally and the patient has diminished breath sounds Abdominal exam revealed normal bowel sounds. The abdomen was soft, non-tender, and without masses, organomegaly, or appreciable enlargement of the abdominal aorta. Extremities are intact. No cyanosis clubbing or edema. Skin is without rash or lesion. Neurologic examination is brief but nonfocal. The patient is sedated and currently patient is calm and comfortable. - Labs CBC & Chem 7: 10/20/23 05:55 10/20/23 09:18 Labs: Abnormal Lab Results - Last 24 Hours (Table) 10/19/23 10/19/23 10/19/23 Range/Units 11:51 18:09 23:56 WBC (3.8-10.6) k/uL RBC (4.30-5.90) m/uL Hgb (13.0-17.5) gm/dL Hct (39.0-53.0) % ABG pH (7.35-7.45) ABG pCO2 (35-45) mmHg ABG HCO3 (21-25) mmol/L ABG O2 Saturation (94-97) % Sodium (137-145) mmol/L Chloride (98-107) mmol/L Carbon Dioxide (22-30) mmol/L BUN (9-20) mg/dL Glucose (74-99) mg/dL POC Glucose (mg/dL) 224 H 238 H 286 H (70-110) mg/dL Calcium (8.4-10.2) mg/dL 10/20/23 10/20/23 10/20/23 Range/Units 05:53 05:54 05:55 WBC 16.1 H (3.8-10.6) k/uL RBC 3.92 L (4.30-5.90) m/uL Hgb 11.2 L (13.0-17.5) gm/dL Hct 35.0 L (39.0-53.0) % ABG pH 7.51 H (7.35-7.45) ABG pCO2 48 H (35-45) mmHg ABG HCO3 38 H (21-25) mmol/L ABG O2 Saturation 97.8 H (94-97) % Sodium (137-145) mmol/L Chloride (98-107) mmol/L Carbon Dioxide (22-30) mmol/L BUN (9-20) mg/dL Glucose (74-99) mg/dL POC Glucose (mg/dL) 235 H (70-110) mg/dL Calcium (8.4-10.2) mg/dL 10/20/23 Range/Units 05:55 WBC (3.8-10.6) k/uL RBC (4.30-5.90) m/uL Hgb (13.0-17.5) gm/dL Hct (39.0-53.0) % ABG pH (7.35-7.45) ABG pCO2 (35-45) mmHg ABG HCO3 (21-25) mmol/L ABG O2 Saturation (94-97) % Sodium 147 H (137-145) mmol/L Chloride 108 H (98-107) mmol/L Carbon Dioxide 38 H (22-30) mmol/L BUN 49 H (9-20) mg/dL Glucose 226 H (74-99) mg/dL POC Glucose (mg/dL) (70-110) mg/dL Calcium 8.0 L (8.4-10.2) mg/dL Microbiology - Last 24 Hours (Table) 10/15/23 11:10 Legionella Culture - Preliminary Bronchial Brushings - Right Assessment and Plan Plan: Acute exacerbation of chronic COPD, with development of diffuse bilateral pulmonary infiltrates, currently still on mechanical ventilator with interval improvement of bilateral pulmonary filtrates. The cultures were all negative including the cultures from the bronchoalveolar lavage. There is steady but on going improvement in oxygenation. Ventilation is also improved. In fact, the blood gas today showing a component of alkalosis. Acute leukocytosis, improved and the white cell count is improved Acute hypercapnic respiratory failure, stable, improved Acute hypoxic respiratory failure, remains intubated on mechanical ventilator Hypotension, likely septic in nature and the patient is currently off pressors Paroxysmal A-fib, currently back in normal sinus rhythm and the patient is currently on Toprol-XL 25 mg p.o. daily and amiodarone 200 mg p.o. twice a day and anticoagulation with Eliquis. The current cardiac rhythm is sinus. Previous history of COPD exac progressive bilateral pulmonary infiltrates with rapiderbation requiring intubation and mechanical ventilatory support on 05/19/2023. The patient was extubated on 05/23/2023 Previous history of pseudomonal growth in the sputum rule out pseudomonal tracheal bronchitis/pneumonia. 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 Previou s serum Aspergillus antibodies obtained in April 2023 was negative Chronic and ongoing tobacco dependence of nearly 50 years History of alcoholism Marijuana use History of depression Plan Continue ventilator support, dropped respiratory rate down to 18, dropped FiO2 down to 40%, may further wean down the PEEP. Continue propofol and fentanyl, the patient is currently off paralytics Daily sedation holidays. Not absolutely ready for weaning at this point in time. The bronchioloalveolar lavage was negative for any microbial, bacterial, fungal or viral elements. Continue IV Zosyn and vancomycin Procalcitonin level was elevated. Will monitor the levels, levels are improving Change IV fluids to KVO Discontinued IV Lasix Continue enteral feeding for nutritional support Daily chest x-rays Echocardiogram to be done today to evaluate LV function, this was noted and the patient has a preserved LV function without any valvular abnormalities. Will continue to follow and make further recommendation based on his progress. This evaluation was done more than 30 minutes excluding time to any procedures. Condition is critical. Will continue to follow. Time with Patient: Greater than 30
--- NOTE | 2023-10-20 13:20 | P.PCN ---
Date of Procedure: 10/20/23 Preoperative Diagnosis: Acute pulmonary edema, hypoxic respiratory failure Postoperative Diagnosis: Same Procedure(s) Performed: Central line, left subclavian Anesthesia: local Surgeon: Cathy Christian Pathology: other Condition: critical Disposition: ICU Operative Findings: PROCEDURE SUMMARY: The [facility] Central Line Insertion Practices form was completed during and immediately following the procedure. A time out was performed. My hands were washed immediately prior to the procedure. I wore a surgical cap, mask with protective eyewear, full gown and sterile gloves throughout the procedure. The patient was placed in Trendelenburg position. Left chest area was cleaned using ChloraPrep and draped in sterile fashion using a three quarter sheet drape and sterile towels. Skin preparation was allowed to dry prior to skin puncture. Anatomic landmarks were identified. Anesthesia was achieved over the vein using 1% lidocaine. Using real-time ultrasound, with sterile probe cover and sterile gel, the introducer needle was inserted into the vein under direct ultrasound visualization. Venous blood was withdrawn. The syringe was removed and a guidewire was advanced into the introducer needle. The guidewire was visualized in the appropriate vein by ultrasound. A small incision was made at the skin s urface with a scalpel and the introducer needle was exchanged for a dilator over the guidewire. After appropriate dilation was obtained, the dilator was exchanged over the wire for a central venous catheter. The wire was removed and the catheter was sutured in place A biopatch was placed at the insertion site. A sterile op-site was placed over the catheter and biopatch. The patient tolerated the procedure without any hemodynamic compromise. At time of procedure completion, all ports aspirated and flushed properly. Post-procedure chest x-ray : [_] Is pending at this time. [_x ] Shows adequate positioning of the catheter for use.
--- NOTE | 2023-10-20 15:18 | P.PN ---
Subjective Paroxysmal atrial fibrillation The patient is a pleasant 63-year-old gentleman with a past medical history significant for COPD who was admitted to the hospital with acute hypoxic respiratory failure secondary to COPD exacerbation and heart failure with preserved ejection fraction exacerbation. He was noted to be in atrial fibrillation. Subsequently he converted to normal sinus mechanism. October 18, 2023 The patient was seen and evaluated this morning. He remains intubated on mechanical ventilation. He is hemodynamically stable. He remains in sinus mechanism with atrial bigeminy and ventricular bigeminy and short runs of nonsustained ventricular tachycardia but his potassium has been low which has been replaced this morning. The echo showed normal LV systolic function. He is on oral anticoagulation. He is also on metoprolol and he is on amiodarone orally. He remains in failure and continues to be on Lasix IV with a chest x-ra y this morning continues to be wet and he has been making significant amount of urine on the current dose of Lasix IV. The examination is remarkable for bilateral lower extremities edema and diminished breathing sounds bilaterally 10/19 Patient seen and examined. Patient remains on amiodarone 200 mg twice a day, Elocon was 5 mg twice a day, metoprolol 25 mg 3 times a day. He has remained intubated and sedated. Currently FiO2 40% and a PEEP of 6. Remains in sinus rhythm and no significant A. fib or arrhythmia. Assessment Acute hypoxic respiratory failure secondary to COPD exacerbation and CHF exacerbation Persistent atrial fibrillation but currently the patient has been maintaining normal sinus mechanism Atrial bigeminy and ventricular bigeminy and short runs of nonsustained ventricular tachycardia Electrolytes imbalance with hypokalemia Multiple comorbid conditions Plan Patient's ventilator requirements are continued to be weaned. Remains in sinus rhythm on amiodarone and continue with metoprolol as well as anticoagulation. Monitor for need for diuretics however currently appears euvolemic. Objective - Vital Signs Vital signs: Vital Signs Temp 100.6 F H 10/20/23 08:00 Pulse 86 10/20/23 13:00 Resp 18 10/20/23 13:00 BP 102/60 10/18/23 08:00 Pulse Ox 94 L 10/20/23 13:00 FiO2 40 10/20/23 12:00 Intake & Output 10/19/23 10/20/23 10/20/23 18:59 06:59 18:59 Intake Total 1765.457 902.521 956.650 Output Total 2220 3600 710 Balance -454.543 -2697.479 246.650 Weight 80 kg Intake: IV 553 36 451 0.9 36 36 21 Piperacillin-Tazobactam 3 150 100 .375 gm In Sodium Chloride 0.9% 100 ml @ 25 mls/hr IVPB Q8H [facility] Rx#: [id number] Sodium Chloride 0.9% 1, 200 80 000 ml @ 20 mls/hr IV . Q24H [facility] Rx#:[id number] Vancomycin 1,250 mg In 250 Sodium Chloride 0.9% 250 ml @ 125 mls/hr IVPB Q12HR [facility] Rx#:[id number] Vancomycin 1,500 mg In 167 Sodium Chloride 0.9% 500 ml 500 ml @ 167 mls/hr IVPB Q12HR [facility] Rx#: [id number] Intake, IV Titration 450.457 254.521 88.650 Amount Sodium Chloride 0.9% 1, 60 000 ml @ 20 mls/hr IV . Q24H REPLACED BY [facility] Rx#:[id number] fentaNYL (PF). 1,000 mcg 95.204 63.712 In Sodium Chloride 0.9% 80 ml @ 0.5 MCG/KG/HR 3. 175 mls/hr IV .Q24H [facility] Rx#:[id number] propofoL 1,000 mg In 295.253 190.809 88.650 Empty Bag 1 bag @ 15 MCG/ KG/MIN 5.715 mls/hr IV . [id number] [facility] Rx#:[id number] Tube Feeding 612 612 357 Other 150 60 Output: Urine 2220 3600 710 Other: Voiding Method Indwelling Catheter Indwelling Catheter Indwelling Catheter # Bowel Movements 2 1 1 ABP, PAP, CO, CI - Last Documented Arterial Blood Pressure 137/66 - Labs CBC & Chem 7: 10/20/23 05:55 10/20/23 09:18 Labs: Abnormal Lab Results - Last 24 Hours (Table) 10/19/23 10/19/23 10/20/23 Range/Units 18:09 23:56 05:53 WBC (3.8-10.6) k/uL RBC (4.30-5.90) m/uL Hgb (13.0-17.5) gm/dL Hct (39.0-53.0) % ABG pH (7.35-7.45) ABG pCO2 (35-45) mmHg ABG HCO3 (21-25) mmol/L ABG O2 Saturation (94-97) % Sodium (137-145) mmol/L Chloride (98-107) mmol/L Carbon Dioxide (22-30) mmol/L BUN (9-20) mg/dL Glucose (74-99) mg/dL POC Glucose (mg/dL) 238 H 286 H 235 H (70-110) mg/dL Calcium (8.4-10.2) mg/dL 10/20/23 10/20/23 10/20/23 Range/Units 05:54 05:55 05:55 WBC 16.1 H (3.8-10.6) k/uL RBC 3.92 L (4.30-5.90) m/uL Hgb 11.2 L (13.0-17.5) gm/dL Hct 35.0 L (39.0-53.0) % ABG pH 7.51 H (7.35-7.45) ABG pCO2 48 H (35-45) mmHg ABG HCO3 38 H (21-25) mmol/L ABG O2 Saturation 97.8 H (94-97) % Sodium 147 H (137-145) mmol/L Chloride 108 H (98-107) mmol/L Carbon Dioxide 38 H (22-30) mmol/L BUN 49 H (9-20) mg/dL Glucose 226 H (74-99) mg/dL POC Glucose (mg/dL) (70-110) mg/dL Calcium 8.0 L (8.4-10.2) mg/dL 10/20/23 Range/Units 11:50 WBC (3.8-10.6) k/uL RBC (4.30-5.90) m/uL Hgb (13.0-17.5) gm/dL Hct (39.0-53.0) % ABG pH (7.35-7.45) ABG pCO2 (35-45) mmHg ABG HCO3 (21-25) mmol/L ABG O2 Saturation (94-97) % Sodium (137-145) mmol/L Chloride (98-107) mmol/L Carbon Dioxide (22-30) mmol/L BUN (9-20) mg/dL Glucose (74-99) mg/dL POC Glucose (mg/dL) 238 H (70-110) mg/dL Calcium (8.4-10.2) mg/dL Microbiology - Last 24 Hours (Table) 10/15/23 11:10 Legionella Culture - Preliminary Bronchial Brushings - Right
--- NOTE | 2023-10-20 16:37 | P.PN ---
Subjective Progress Note Date: 10/20/23 63-year-old male with a past medical history of COPD on home oxygen, hypertension, chronic back pain, history of cervical fusion surgery, depression currently everyday smoker and marijuana use. Patient presents to ER with complaints of worsening shortness of breath anxiety, chills and fever. Patient was tachycardic and tachypneic on admission. States that he has subjective fevers. Cough and congestion and unable to bring out any sputum. No complaints of chest pain. No nausea vomiting abdominal pain or diarrhea. No headache or dizziness or neck stiffness. Chest x-ray showed perihilar infiltrates in the deflector lobar pneumonia. Correlate clinically and appropriate studies are recommended. EKG showed atrial fibrillation with rapid ventricular response. Patient had a cardiac catheterization on 09/14/2023 showed relatively normal coronaries and normal left sided filling pressures. Laboratory test showed WBC 23.7 hemoglobin 14.2 and platelets 265 Sodium 141 potassium 3.8 chloride 104 bicarb is 22 BUN 16 and creatinine 0.94 and blood sugar 89 and lactic acid 4.7 and magnesium 1.5 [place] Elevated procalcitonin level 2.4. Troponin x 1 negative proBNP 262 10/20/2023 Patient is seen and evaluated in room in ICU; patient remains intubated on mechanical ventilator. Paralytics have been discontinued for the past 48 hours and the patient is on propofol and fentanyl. -- Upon receiving a sedation holiday, the patient is arousable. There is interval improvement in aeration on today's chest x-ray. He remains on assist- control mode of mechanical ventilation at rate of 28, tidal volume of 350, FiO2 50% with a PEEP of 6. Blood gas shows a pH of 7.51 with a pCO2 of 48 and pO2 of 86. Fluid balance is -3.1 L over the past 24 hours and the patient was being d iuresed with IV Lasix. The patient is also on vital high-protein at rate of 51 cc an hour. Hemodynamically stable. Afebrile. Remains on broad-spectrum antibiotics. Cultures are negative. Remains on IV Solu-Medrol. Cardiac rhythm has remained sinus over the past 24 hours. Remains on amiodarone. Remains on 200 mg amiodarone twice a day and metoprolol 25 mg 3 times daily. Remains on anticoagulation with Eliquis. Objective - Vital Signs Vital signs: Vital Signs Temp 100.6 F H 05/25/24 08:00 Pulse 86 10/20/23 10:00 Resp 20 10/20/23 10:00 BP 102/60 10/18/23 08:00 Pulse Ox 95 10/20/23 10:00 FiO2 40 10/20/23 09:36 Intake & Output 10/19/23 10/20/23 10/20/23 18:59 06:59 18:59 Intake Total 1765.457 902.521 266.927 Output Total 2220 3600 360 Balance -454.543 -2697.479 -93.073 Weight 80 kg Intake: IV 553 36 49 0.9 36 36 9 Piperacillin-Tazobactam 3 150 .375 gm In Sodium Chloride 0.9% 100 ml @ 25 mls/hr IVPB Q8H [facility] Rx#: [id number] Sodium Chloride 0.9% 1, 200 40 000 ml @ 20 mls/hr IV . Q24H [facility] Rx#:[id number] Vancomycin 1,500 mg In 167 Sodium Chloride 0.9% 500 ml 500 ml @ 167 mls/hr IVPB Q12HR [facility] Rx#: [id number] Intake, IV Titration 450.457 254.521 34.927 Amount Sodium Chloride 0.9% 1, 60 000 ml @ 20 mls/hr IV . Q24H [facility] Rx#:[id number] fentaNYL (PF). 1,000 mcg 95.204 63.712 In Sodium Chloride 0.9% 80 ml @ 0.5 MCG/KG/HR 3. 175 mls/hr IV .Q24H [facility] Rx#:[id number] propofoL 1,000 mg In 295.253 190.809 34.927 Empty Bag 1 bag @ 15 MCG/ KG/MIN 5.715 mls/hr IV . [id number] [facility] Rx#:[id number] Tube Feeding 612 612 153 Other 150 30 Output: Urine 2220 3600 360 Other: Voiding Method Indwelling Catheter Indwelling Catheter # Bowel Movements 2 1 ABP, PAP, CO, CI - Last Documented Arterial Blood Pressure 156/73 - Exam Patient is is currently intubated and on mechanical ventilator... HEENT: Normocephalic. Neck is supple. Pupils reactive. Nostrils clear. Oral cavity is moist. Neck reveals no JVD, carotid bruits, or thyromegaly. CHEST EXAMINATION: Trachea is central. Symmetrical expansion. Bilateral coarse breath sounds and scattered rhonchi. CARDIAC: Normal S1, S2 with no gallops. No murmurs ABDOMEN: Soft. Bowel sounds normal. No organomegaly. No abdominal bruits. Extremities: reveal no edema. No clubbing or cyanosis Neurologically sedated and intubated. No gross focal deficits noted Skin: No rash or skin lesions. Psychiatric: Could not be assessed completely Musculoskeletal: No joint swelling or deformity. - Labs CBC & Chem 7: 10/20/23 05:55 10/20/23 09:18 Labs: Abnormal Lab Results - Last 24 Hours (Table) 10/19/23 10/19/23 10/19/23 Range/Units 11:51 18:09 23:56 WBC (3.8-10.6) k/uL RBC (4.30-5.90) m/uL Hgb (13.0-17.5) gm/dL Hct (39.0-53.0) % ABG pH (7.35-7.45) ABG pCO2 (35-45) mmHg ABG HCO3 (21-25) mmol/L ABG O2 Saturation (94-97) % Sodium (137-145) mmol/L Chloride (98-107) mmol/L Carbon Dioxide (22-30) mmol/L BUN (9-20) mg/dL Glucose (74-99) mg/dL POC Glucose (mg/dL) 224 H 238 H 286 H (70-110) mg/dL Calcium (8.4-10.2) mg/dL 10/20/23 10/20/23 10/20/23 Range/Units 05:53 05:54 05:55 WBC 16.1 H (3.8-10.6) k/uL RBC 3.92 L (4.30-5.90) m/uL Hgb 11.2 L (13.0-17.5) gm/dL Hct 35.0 L (39.0-53.0) % ABG pH 7.51 H (7.35-7.45) ABG pCO2 48 H (35-45) mmHg ABG HCO3 38 H (21-25) mmol/L ABG O2 Saturation 97.8 H (94-97) % Sodium (137-145) mmol/L Chloride (98-107) mmol/L Carbon Dioxide (22-30) mmol/L BUN (9-20) mg/dL Glucose (74-99) mg/dL POC Glucose (mg/dL) 235 H (70-110) mg/dL Calcium (8.4-10.2) mg/dL 10/20/23 Range/Units 05:55 WBC (3.8-10.6) k/uL RBC (4.30-5.90) m/uL Hgb (13.0-17.5) gm/dL Hct (39.0-53.0) % ABG pH (7.35-7.45) ABG pCO2 (35-45) mmHg ABG HCO3 (21-25) mmol/L ABG O2 Saturation (94-97) % Sodium 147 H (137-145) mmol/L Chloride 108 H (98-107) mmol/L Carbon Dioxide 38 H (22-30) mmol/L BUN 49 H (9-20) mg/dL Glucose 226 H (74-99) mg/dL POC Glucose (mg/dL) (70-110) mg/dL Calcium 8.0 L (8.4-10.2) mg/dL Microbiology - Last 24 Hours (Table) 10/15/23 11:10 Legionella Culture - Preliminary Bronchial Brushings - Right Assessment and Plan Assessment: Acute on chronic hypoxemic respiratory failure secondary to COPD and pneumonia. Patient was on 100% nonrebreather currently requiring mechanical ventilator. Acute COPD exacerbation Bilateral pneumonia Sepsis secondary to pneumonia New onset A-fib with RVR as per EKG on admission Ongoing nicotine addiction GERD Hypertension Prior history of pneumonia Depression Marijuana use COPD on home oxygen as needed DVT prophylaxis with heparin subcu Plan: Patient is in ICU. Sedated and intubated. Continue with telemetry monitoring. Antibiotic changed to vancomycin and Zosyn.. Urine Legionella antigen is negative. Patient is status post bronchoscopy on 10/15/2023 Follow-up blood cultures and sputum cultures and BAL cultures.. Patient is being continued on IV Solu-Medrol, DuoNebs and oxygen supplementation. Patient was started on anticoagulation with Eliquis due to new onset atrial fibrillation.. Continue with metoprolol and amiodarone. Patient was also star quentin on IV Lasix. Cardiology and pulmonary is on board. Continue to follow closely. Prognosis is guarded.
[2023-10-20 17:28] LABS: Glucose,Whole Blood 235 mg/dL (70-110)
[2023-10-20 23:46] LABS: Glucose,Whole Blood 242 mg/dL (70-110)
[2023-10-21 05:41] LABS: ABG Base Excess 9.3 mmol/L; ABG HCO3 34 mmol/L (21-25); ABG Oxygen Saturation 95.9 % (94-97); ABG PCO2 45 mmHg (35-45); ABG PH 7.48 (7.35-7.45); ABG PO2 72 mmHg (83-108); Allen Test Performed? Yes
[2023-10-21 05:47] LABS: Glucose,Whole Blood 274 mg/dL (70-110)
[2023-10-21 05:50] LABS: HCT 35.2 % (39.0-53.0); HGB 10.7 gm/dL (13.0-17.5); Hypochromasia Slight; MCH 27.6 pg (25.0-35.0); MCHC 30.5 g/dL (31.0-37.0); MCV 90.5 fL (80.0-100.0); Mean Platelet Volume 11.5; Platelet Count 190 k/uL (150-450); RBC 3.89 m/uL (4.30-5.90); RDW 14.2 % (11.5-15.5); WBC 11.3 k/uL (3.8-10.6)
[2023-10-21 06:01] LABS: African American GFR (CKD) >90 (>60 ml/min/1.73 sqM); Anion Gap 4 mmol/L; Blood Urea Nitrogen 41 mg/dL (9-20); Calcium 8.1 mg/dL (8.4-10.2); Carbon Dioxide 30 mmol/L (22-30); Chloride 112 mmol/L (98-107); Glucose 251 mg/dL (74-99); Non-African American GFR(CKD) >90 (>60 ml/min/1.73 sqM); Potassium 4.1 mmol/L (3.5-5.1); Sodium 146 mmol/L (137-145)
--- NOTE | 2023-10-21 08:01 | P.PN ---
Subjective Paroxysmal atrial fibrillation The patient is a pleasant 63-year-old gentleman with a past medical history significant for COPD who was admitted to the hospital with acute hypoxic respiratory failure secondary to COPD exacerbation and heart failure with preserved ejection fraction exacerbation. He was noted to be in atrial fibrillation. Subsequently he converted to normal sinus mechanism. October 18, 2023 The patient was seen and evaluated this morning. He remains intubated on mechanical ventilation. He is hemodynamically stable. He remains in sinus mechanism with atrial bigeminy and ventricular bigeminy and short runs of nonsustained ventricular tachycardia but his potassium has been low which has been replaced this morning. The echo showed normal LV systolic function. He is on oral anticoagulation. He is also on metoprolol and he is on amiodarone orally. He remains in failure and continues to be on Lasix IV with a chest x-ray this morning continues to be wet and he has been making significant amount of urine on the current dose of Lasix IV. The examination is remarkable for bilateral lower extremities edema and diminished breathing sounds bilaterally 10/19 Patient seen and examined. Patient remains on amiodarone 200 mg twice a day, Elocon was 5 mg twice a day, metoprolol 25 mg 3 times a day. He has remained intubated and sedated. Currently FiO2 40% and a PEEP of 6. Remains in sinus rhythm and no significant A. fib or arrhythmia. 10/20 patient seen and examined. Patient remains on amiodarone 200 mg twice a day. Remains intubated and sedated however hopeful trial of extubation today. FiO2 40% and PEEP of 6. No significant arrhythmias and maintaining sinus rhythm. Assessment Acute hypoxic respiratory failure secondary to COPD exacerbation and CHF exacerbation Persistent atrial fibrillation but currently the patient has been maintaining normal sinus mechanism Atrial bigeminy and ventricular bigeminy and short runs of nonsustained ventricular tachycardia Electrolytes imbalance with hypokalemia Multiple comorbid conditions Plan continue with current regimen. Wean amiodarone at the one-week nitin. Monitor for any other significant arrhythmias. Hopefully wean ventilator. Objective - Vital Signs Vital signs: Vital Signs Temp 99.0 F 10/21/23 04:00 Pulse 89 10/21/23 07:00 Resp 18 10/21/23 07:00 BP 102/60 10/21/23 02:00 Pulse Ox 95 10/21/23 07:00 FiO2 40 10/21/23 07:00 Intake & Output 10/20/23 10/21/23 10/21/23 18:59 06:59 18:59 Intake Total 1456.650 848 54 Output Total 1405 1475 100 Balance 51.650 -627 -46 Weight 80.4 kg Intake: IV 566 36 3 0.9 36 36 3 Piperacillin-Tazobactam 3 200 .375 gm In Sodium Chloride 0.9% 100 ml @ 25 mls/hr IVPB Q8H [facility] Rx#: [id number] Sodium Chloride 0.9% 1, 80 000 ml @ 20 mls/hr IV . Q24H [facility] Rx#:[id number] Vancomycin 1,250 mg In 250 Sodium Chloride 0.9% 250 ml @ 125 mls/hr IVPB Q12HR [facility] Rx#:[id number] Intake, IV Titration 188.650 200 Amount propofoL 1,000 mg In 188.650 200 Empty Bag 1 bag @ 15 MCG/ KG/MIN 5.715 mls/hr IV . [id number] [facility] Rx#:[id number] Tube Feeding 612 612 51 Other 90 Output: Urine 1405 1475 100 Other: Voiding Method Indwelling Catheter Indwelling Catheter # Bowel Movements 1 ABP, PAP, CO, CI - Last Documented Arterial Blood Pressure 165/93 - Labs CBC & Chem 7: 10/21/23 05:30 10/21/23 05:30 Labs: Abnormal Lab Results - Last 24 Hours (Table) 10/20/23 10/20/23 10/20/23 Range/Units 09:18 11:50 17:27 WBC (3.8-10.6) k/uL RBC (4.30-5.90) m/uL Hgb (13.0-17.5) gm/dL Hct (39.0-53.0) % MCHC (31.0-37.0) g/dL ABG pH (7.35-7.45) ABG pO2 (83-108) mmHg ABG HCO3 (21-25) mmol/L Sodium (137-145) mmol/L Chloride (98-107) mmol/L BUN (9-20) mg/dL Glucose (74-99) mg/dL POC Glucose (mg/dL) 238 H 235 H (70-110) mg/dL Calcium (8.4-10.2) mg/dL Procalcitonin 0.17 H (0.02-0.09) ng/mL 10/20/23 10/21/23 10/21/23 Range/Units 23:45 05:30 05:30 WBC 11.3 H (3.8-10.6) k/uL RBC 3.89 L (4.30-5.90) m/uL Hgb 10.7 L (13.0-17.5) gm/dL Hct 35.2 L (39.0-53.0) % MCHC 30.5 L (31.0-37.0) g/dL ABG pH (7.35-7.45) ABG pO2 (83-108) mmHg ABG HCO3 (21-25) mmol/L Sodium 146 H (137-145) mmol/L Chloride 112 H (98-107) mmol/L BUN 41 H (9-20) mg/dL Glucose 251 H (74-99) mg/dL POC Glucose (mg/dL) 242 H (70-110) mg/dL Calcium 8.1 L (8.4-10.2) mg/dL Procalcitonin (0.02-0.09) ng/mL 10/21/23 10/21/23 Range/Units 05:34 05:46 WBC (3.8-10.6) k/uL RBC (4.30-5.90) m/uL Hgb (13.0-17.5) gm/dL Hct (39.0-53.0) % MCHC (31.0-37.0) g/dL ABG pH 7.48 H (7.35-7.45) ABG pO2 72 L (83-108) mmHg ABG HCO3 34 H (21-25) mmol/L Sodium (137-145) mmol/L Chloride (98-107) mmol/L BUN (9-20) mg/dL Glucose (74-99) mg/dL POC Glucose (mg/dL) 274 H (70-110) mg/dL Calcium (8.4-10.2) mg/dL Procalcitonin (0.02-0.09) ng/mL
[2023-10-21] MEDS: CLEVIDIPINE BUTYRATE 25 MG in EMPTY BAG 1 BAG IV SCH (10:09)
[2023-10-21] MEDS: DEXMEDETOMIDINE/0.9% NACL(PMX) 400 MCG in EMPTY BAG 1 BAG IV SCH (10:47)
[2023-10-21 11:19] LABS: Glucose,Whole Blood 258 mg/dL (70-110)
[2023-10-21 11:30] LABS: ABG Base Excess 8.8 mmol/L; ABG HCO3 33 mmol/L (21-25); ABG Oxygen Saturation 98.4 % (94-97); ABG PCO2 43 mmHg (35-45); ABG PO2 96 mmHg (83-108); Allen Test Performed? Yes
--- NOTE | 2023-10-21 12:59 | XR ---
EXAMINATION TYPE: XR chest 1V portable DATE OF EXAM: 10/21/2023 COMPARISON: 10/20/2023 INDICATION: Intubated difficulty breathing TECHNIQUE: Single frontal view of the chest is obtained. FINDINGS: The heart size is normal. The pulmonary vasculature is normal. Right lower lobe infiltrate is present. Correlate for atelectasis and pneumonia. Endotracheal tube tip is above enriqueta. Nasogastric tube transverses the thorax. Left central venous c atheter tip is in superior vena cava region. IMPRESSION: 1. Right lower lobe infiltrate. Correlate for atelectasis and pneumonia. 2. Lines and catheters discussed above.
--- NOTE | 2023-10-21 13:19 | P.PN ---
Subjective Progress Note Date: 10/21/23 On 10/15/2023, patient is being seen for a follow-up. The patient remains intubated on the mechanical ventilator with diffuse bilateral pulmonary filtrates, likely presenting bilateral pneumonia. This morning, the patient is on propofol at 75 mcg/kg/min and the patient is also on fentanyl at 1.5 mcg/kg/ h. The patient is on assist-control mechanical ventilation at rate of 28, tidal volume of 400, FiO2 of 50% with a PEEP of 8. Peak airway pressures 32. The static airway pressure is 29. Blood gas shows a pH of 7.18 with a pCO2 of 62 and pO2 of 160. Hemodynamically, the patient remains hypotensive and currently is on norepinephrine at low-dose running at 0.04 mcg/kg/min and the patient is also on normal saline at rate of 75 cc an hour. The white cell count is at 15.3 with a hemoglobin 10.9 and a platelet count of 208. BUN is at 26 with a creatinine of 0.8 and sodium levels at 141 with a potassium level of 4.8 with a serum bicarb of 24. The chloride is at 115. The patient was receiving IV Rocephin. Cardiac rhythm is sinus. Remains on bronchodilators. Remains on steroids. Echocardiogram completed this morning a preserved LV function with an EF of around 55 to 60% without any significant valvular abnormalities. Right ventricular systolic pressure estimated to be around 38. Chest x-ray showing diffuse bilateral pulmonary infiltrates. Cultures are negative thus far. 10/16/2023, the patient is being seen for a follow-up. The patient remains sedated on propofol which is running at 75 mcg/kg/min and the patient is currently on fentanyl at 1.5 mcg/kg/h. The patient was taken off the Nimbex yesterday. Remains intubated on the mechanical ventilator. Remains on assist-control mode with rate of 20, tidal volume of 400, FiO2 of 50% with a PEEP of 8, and the patient blood gas showed pH 7.30 with a pCO2 of 47 and pO2 of 116. The bronchoscopy was done yesterday and the results of bronchial lavage are still pending. Chest x-ray showing diffuse bilateral pulm infiltrates, unchanged compared to yesterday. ET tube is in a good location. Echocardiogram was done yesterday and the patient was found to have a preserved LV function without any significant valvular abnormalities. Right ventricular systolic pressure was estimated to be at 35. No evidence of any pericardial effusion. The patient remains on Zosyn and vancomycin. Cultures are still pending for now. The patient is afebrile. The patient remains off pressors. Norepinephrine was weaned off and discontinued without any major difficulties and the patient is maintaining his own blood pressure. The patient however is on amiodarone drip at 0.5 mg/min regarding atrial fibrillation and his rate is controlled and converted into normal sinus rhythm. He remains on normal citrate of 75 cc an hour. He is on enteral feeding for nutritional support with vital high-protein at a rate of 30 cc an hour. Fluid balance is +3.1 L over the past 24 hours. On today's evaluation of 10/17/2023, seen the patient for a follow-up. Remains intubated on mechanical ventilator. This morning, the patient is on propofol running at 75 mcg/kg/min and fentanyl at 2 mcg/kg/h. The patient is also on Nimbex for paralysis as the patient was quite asynchronous with mechanical ventilator and the patient was peak pressuring yesterday Nimbex is running at 2 mcg/kg/min. The patient is currently on assist-control mode of mechanical ventilation at rate of 28, tidal volume of 350, FiO2 of 50% and PEEP of 6. The blood gas from today shows a pH of 7.24 with a pCO2 of 55 and a pO2 of 108. Chest x-ray from today shows diffuse bilateral pulmonary filtrates with some limited improvement in patient compared to yesterday. Bronchoscopy and bronchial lavage was done and the microbial culture is still pending is negative thus far and the patient remains on a combination of Zosyn and vancomycin. The vancomycin trough level was at 21. BUN is at 30 with a creatinine of 0.8 and sodium level at 144. WBC count is 8.3 with a hemoglobin 10.5 and a platelet count of 201. The patient remains on vital high-protein at 30 to 45 cc an hour. Fluid balance is +3.6 L over the past 24 hours. Meanwhile, the patient had an episode of atrial fibrillation yesterday with rapid ventricular response. The patient was loaded with amiodarone and currently is back in normal sinus rhythm. Amiodarone is running at 200 mg p.o. twice a day. The patient is also on anticoagulation with Eliquis 5 mg p.o. twice a day. The patient on Toprol-XL 25 mg p.o. daily. IV Solu-Medrol was also added. On 10/18/2023, seen the patient for a follow-up. Patient remains intubated on the mechanical ventilator. On today's evaluation, the patient is on propofol at 75 mcg/kg/min and fentanyl at 2 mcg/kg/h. The patient is also paralyzed as the patient was peak pressuring yesterday. Nimbex is running at 3 mcg/kg/min. Remains on mechanical ventilator. Peak airway pressure is 30. Static airway pressure is 20. Patient is on assist-control mode at rate of 28, tidal volume of 350, fentanyl 50% with a PEEP of 6. pH is at 7.36 with a pCO2 of 54 and pO2 of 69. The chest x-ray shows increased right lower lobe pulmonary infiltration, some interval improvement in the aeration bilaterally. Orotracheal tube is in the mid location. Patient is on no pressors. The patient was started on Lasix 40 mg IV every 12 hours and the patient is negative fluid balance of 2.9 L over the past 24 hours. The patient is receiving enteral feeding for nutritional support. Antibiotic coverage is unchanged. Remains on Zosyn and vancomycin. Cultures are all negative. BUN is 43 with a creatinine of 0.8 and sodium levels at 144. WBC count 0.6 with a hemoglobin of 11.1 and a platelet count of 185. Afebrile for now. Meanwhile, the patient is having some ectopies. He did have a run of atrial fibrillation yesterday and currently is back in normal sinus rhythm and the patient is on oral amiodarone. Patient is also on metoprolol 25 mg p.o. Anticoagulation with Eliquis. 10/19/2023, the patient is being seen for a follow-up. Remains intubated on mechanical ventilator. Chest x-ray still showing diffuse bilateral pulm infiltrates. Stable compared to yesterday. No significant interval improvement in chest x-ray findings. Right ear this morning, the patient developed A-fib RVR. He will be given another bolus of amiodarone 150 mg. He is on oral amiodarone 200 mg p.o. twice a day and metoprolol 25 mg 3 times daily. Rate is under better control for now. Remains on propofol at 75 mcg/kg/min and fentanyl at 2 mcg/kg/h. He is currently off Nimbex. He is on assist-control mode with rate of 28, tidal volume of 350, 150% with a PEEP of 6. pH is at 7.44 with a pCO2 of 52 and pO2 of 84. Fluid balance -3.3 L over the past 24 hours. White cell count is at 10.9 with a hemoglobin 11.8 and platelet count of 223. Sodium is at 148, potassium 3.8, bicarb is at 35, BUN is 51 with a creatinine of 0.8. The patient is on vital high-protein for enteral feeding and nutritional support at the rate of 51 cc an hour. The patient will need a laxative for bowel movement activity. Remains on Zosyn and vancomycin. All of the cultures have been negative. 01/20/2024, patient is being seen for a follow-up. The patient remains intubated on mechanical ventilator. He is off Nimbex. Paralytics have been discontinued for the past 48 hours and the patient is on propofol and fentanyl. Propofol is at 60 mcg/kg/min and fentanyl is at 1 mcg/kg/h. Upon receiving a sedation holiday, the patient is arousable. Nevertheless, not absolutely ready to be weaned off the mechanical ventilator. There is interval improvement in aeration on today's chest x-ray. He remains on assist-control mode of mechanical ventilation at rate of 28, tidal volume of 350, FiO2 50% with a PEEP of 6. Blood gas shows a pH of 7.51 with a pCO2 of 48 and pO2 of 86. Fluid balance is -3.1 L over the past 24 hours and the patient was being diuresed with IV Lasix. The patient is also on vital high-protein at rate of 51 cc an hour. Hemodynamically stable. Afebrile. Remains on broad-spectrum antibiotics. Cultures are negative. Remains on IV Solu-Medrol. Cardiac rhythm has remained sinus over the past 24 hours. Remains on amiodarone. Remains on 200 mg amio darone twice a day and metoprolol 25 mg 3 times daily. Remains on anticoagulation with Eliquis. 10/21/2023, the patient is on propofol at 55 mcg and fentanyl 1 mcg. Remains on a mechanical ventilator, intubated and the chest x-ray shows improvement in the aeration in both lungs. There is some residual right lower lobe pulm infiltrate. Lines on the place. The patient remains on the mechanical ventilator assist-control mode with rate of 18, tidal volume of 350, FiO2 of 40% with a PEEP of 6. Based on morning blood gas, the patient has a pH of 7.48 with a pCO2 of 45 and pO2 of 72. Started weaning the propofol and fentanyl. Sedation holiday was given and the patient seem to be appropriate. Subsequently parameters were adequate. The patient was given a post spontaneous breathing trial with a pressure support of 5 and a PEEP of 5. Blood gas showed a pH of 7.5 with a pCO2 of 43 and pO2 of 96. The patient was accordingly extubated. The rest of the labs show a WBC count of 11, hemoglobin 10.7 and a platelet count of 190. BUN 41 with a creatinine of 0.7 and sodium levels of 146. Fluid balance is -520 cc over the past 24 hours and IV Lasix has been discontinued. The patient was also receiving enteral feeding and the patient was on vital AF at the rate of 51 cc an hour. Procalcitonin level has dropped down to 0.17. The patient is having episodes of fever. Noted all of the cultures were negative from previous evaluations. He has a triple-lumen catheter in his left IJ. His cardiac rhythm is sinus. Remains on amiodarone and metoprolol and remains on anticoagulation with Eliquis. Objective - Vital Signs Vital signs: Vital Signs Temp 101.1 F H 10/21/23 08:00 Pulse 84 10/21/23 09:00 Resp 16 10/21/23 09:00 BP 102/60 10/21/23 02:00 Pulse Ox 95 10/21/23 09:00 FiO2 40 10/21/23 08:36 Intake & Output 10/20/23 10/21/23 10/21/23 18:59 06:59 18:59 Intake Total 1456.650 848 279.246 Output Total 1405 1475 375 Balance 51.650 -627 -95.754 Weight 80.4 kg Intake: IV 566 36 49 0.9 36 36 9 Piperacillin-Tazobactam 3 200 .375 gm In Sodium Chloride 0.9% 100 ml @ 25 mls/hr IVPB Q8H [facility] Rx#: [id number] Sodium Chloride 0.9% 1, 80 40 000 ml @ 20 mls/hr IV . Q24H [facility] Rx#:[id number] Vancomycin 1,250 mg In 250 Sodium Chloride 0.9% 250 ml @ 125 mls/hr IVPB Q12HR [facility] Rx#:[id number] Intake, IV Titration 188.650 200 47.246 Amount propofoL 1,000 mg In 188.650 200 47.246 Empty Bag 1 bag @ 15 MCG/ KG/MIN 5.715 mls/hr IV . [id number] [facility] Rx#:[id number] Tube Feeding 612 612 153 Other 90 30 Output: Urine 1405 1475 375 Other: Voiding Method Indwelling Catheter Indwelling Catheter Indwelling Catheter # Bowel Movements 1 ABP, PAP, CO, CI - Last Documented Arterial Blood Pressure 150/66 - Exam Pulmonary comfortable, intubated on mechanical ventilator, the patient was extubated to nasal cannula Head exam was generally normal. There was no scleral icterus or corneal arcus. Mucous membranes were moist. HEENT examination is grossly unremarkable. Mucous membranes are moist. No oral lesions. Neck supple. Full range of motion. No adenopathy thyromegaly or neck vein distention. Cardiovascular examination reveals regular rhythm rate. S1-S2 normal. No S3 or S4. No discernible murmur noted. Heart sounds are distant. Lungs reveal bilateral scattered inspiratory and expiratory rhonchi. Breath sounds are equal. No crackles or wheezes. Lung sounds are diminished wanda aterally and the patient has diminished breath sounds Abdominal exam revealed normal bowel sounds. The abdomen was soft, non-tender, and without masses, organomegaly, or appreciable enlargement of the abdominal aorta. Extremities are intact. No cyanosis clubbing or edema. Skin is without rash or lesion. Neurologic examination lethargic. Awake and communicating. No focal neurological deficit at this point in time. - Labs CBC & Chem 7: 10/21/23 05:30 10/21/23 05:30 Labs: Abnormal Lab Results - Last 24 Hours (Table) 10/20/23 10/20/23 10/20/23 Range/Units 09:18 11:50 17:27 WBC (3.8-10.6) k/uL RBC (4.30-5.90) m/uL Hgb (13.0-17.5) gm/dL Hct (39.0-53.0) % MCHC (31.0-37.0) g/dL ABG pH (7.35-7.45) ABG pO2 (83-108) mmHg ABG HCO3 (21-25) mmol/L Sodium (137-145) mmol/L Chloride (98-107) mmol/L BUN (9-20) mg/dL Glucose (74-99) mg/dL POC Glucose (mg/dL) 238 H 235 H (70-110) mg/dL Calcium (8.4-10.2) mg/dL Procalcitonin 0.17 H (0.02-0.09) ng/mL 10/20/23 10/21/23 10/21/23 Range/Units 23:45 05:30 05:30 WBC 11.3 H (3.8-10.6) k/uL RBC 3.89 L (4.30-5.90) m/uL Hgb 10.7 L (13.0-17.5) gm/dL Hct 35.2 L (39.0-53.0) % MCHC 30.5 L (31.0-37.0) g/dL ABG pH (7.35-7.45) ABG pO2 (83-108) mmHg ABG HCO3 (21-25) mmol/L Sodium 146 H (137-145) mmol/L Chloride 112 H (98-107) mmol/L BUN 41 H (9-20) mg/dL Glucose 251 H (74-99) mg/dL POC Glucose (mg/dL) 242 H (70-110) mg/dL Calcium 8.1 L (8.4-10.2) mg/dL Procalcitonin (0.02-0.09) ng/mL 10/21/23 10/21/23 Range/Units 05:34 05:46 WBC (3.8-10.6) k/uL RBC (4.30-5.90) m/uL Hgb (13.0-17.5) gm/dL Hct (39.0-53.0) % MCHC (31.0-37.0) g/dL ABG pH 7.48 H (7.35-7.45) ABG pO2 72 L (83-108) mmHg ABG HCO3 34 H (21-25) mmol/L Sodium (137-145) mmol/L Chloride (98-107) mmol/L BUN (9-20) mg/dL Glucose (74-99) mg/dL POC Glucose (mg/dL) 274 H (70-110) mg/dL Calcium (8.4-10.2) mg/dL Procalcitonin (0.02-0.09) ng/mL Assessment and Plan Plan: Acute exacerbation of chronic COPD, with development of diffuse bilateral pulmonary infiltrates, currently still on mechanical ventilator with interval improvement of bilateral pulmonary filtrates. The cultures were all negative including the cultures from the bronchoalveolar lavage. Chest x-ray findings improved. Blood gas improved. Oxygenation improved and the patient was able to pass a spontaneous breathing trial. Mental status was adequate and the patient was extubated today to nasal cannula. Acute leukocytosis, improved and the white cell count is improved Acute hypercapnic respiratory failure, stable, improved Acute hypoxic respiratory failure, remains intubated on mechanical ventilator Hypotension, likely septic in nature and the patient is currently off pressors Paroxysmal A-fib, currently back in normal sinus rhythm and the patient is currently on Toprol-XL 25 mg p.o. daily and amiodarone 200 mg p.o. twice a day and anticoagulation with Eliquis. The current cardiac rhythm is sinus. Previous history of COPD exac progressive bilateral pulmonary infiltrates with rapiderbation requiring intubation and mechanical ventilatory support on 05/19/2023. The patient was extubated on 05/23/2023 Previous history of pseudomonal growth in the sputum rule out pseudomonal tracheal bronchitis/pneumonia. 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 Previous serum Aspergillus antibodies obtained in April 2023 was negative Chronic and ongoing tobacco dependence of nearly 50 years History of alcoholism Marijuana use History of depression Plan Extubated to nasal cannula Continues to have episodes of fever. Procalcitonin level has been dropping. Recheck blood cultures. May remove the triple-lumen catheter within next 24 hours. The bronchioloalveolar lavage was negative for any microbial, bacterial, fungal or viral elements. Continue IV Zosyn. Vancomycin has been discontinued Procalcitonin level was elevated. Will monitor the levels, levels are improving Change IV fluids to KVO No need for diuretics Enteral feeding has been discontinued Daily chest x-rays Echocardiogram to be done today to evaluate LV function, this was noted and the patient has a preserved LV function without any valvular abnormalities. Will continue to follow and make further recommendation based on his progress. This evaluation was done more than 30 minutes excluding time to any procedures. Will continue to follow. Time with Patient: Greater than 30
[2023-10-21] MEDS ORDERED: ACETAMINOPHEN IV (For NPO) 1,000 MG in EMPTY BAG 1 BAG IVPB PRN (14:07)
[2023-10-21] MEDS: IPRATROPIUM-ALBUTEROL 3 ML NEB INHALATION PRN (15:16)
[2023-10-21] MEDS: IPRATROPIUM-ALBUTEROL 3 ML NEB INHALATION SCH (15:27)
[2023-10-21 18:48] LABS: Glucose,Whole Blood 173 mg/dL (70-110)
[2023-10-21 22:59] LABS: Glucose,Whole Blood 201 mg/dL (70-110)
[2023-10-22] MEDS: LORazepam 1 MG TAB PO PRN (01:59)
[2023-10-22 05:09] LABS: Glucose,Whole Blood 206 mg/dL (70-110)
[2023-10-22 05:26] LABS: HCT 34.2 % (39.0-53.0); HGB 10.8 gm/dL (13.0-17.5); MCH 27.9 pg (25.0-35.0); MCHC 31.5 g/dL (31.0-37.0); MCV 88.7 fL (80.0-100.0); Mean Platelet Volume 10.7; Platelet Count 174 k/uL (150-450); RBC 3.86 m/uL (4.30-5.90); WBC 11.2 k/uL (3.8-10.6)
[2023-10-22 05:40] LABS: African American GFR (CKD) >90 (>60 ml/min/1.73 sqM); Anion Gap 3 mmol/L; Blood Urea Nitrogen 36 mg/dL (9-20); Carbon Dioxide 29 mmol/L (22-30); Chloride 109 mmol/L (98-107); Glucose 198 mg/dL (74-99); Magnesium 2.4 mg/dL (1.6-2.3); Non-African American GFR(CKD) >90 (>60 ml/min/1.73 sqM); Potassium 3.8 mmol/L (3.5-5.1); Sodium 141 mmol/L (137-145)
[2023-10-22] MEDS: POTASSIUM CHLORIDE 10 MEQ in WATER FOR INJECTION 1 100ML.BAG IVPB SCH (05:59)
[2023-10-22] MEDS ORDERED: VANCOMYCIN TROUGH DUE 1 EACH MISC MISCELLANE ONE (08:00)
[2023-10-22] MEDS: predniSONE 20 MG TAB PO SCH (10:06)
[2023-10-22] MEDS: ONDANSETRON 4 MG/2 ML VIAL IVP PRN (10:13)
[2023-10-22 11:53] LABS: Glucose,Whole Blood 235 mg/dL (70-110)
[2023-10-22 11:54] LABS: ALT 90 U/L (4-49); AST 24 U/L (17-59); Amylase 141 U/L (30-110); Lipase 156 U/L (23-300)
[2023-10-22] MEDS: INSULIN ASPART (NovoLOG) 100 UNIT/ML VIAL SQ SCH (12:38)
--- NOTE | 2023-10-22 13:41 | P.PN ---
Subjective Progress Note Date: 10/22/23 On 10/15/2023, patient is being seen for a follow-up. The patient remains intubated on the mechanical ventilator with diffuse bilateral pulmonary filtrates, likely presenting bilateral pneumonia. This morning, the patient is on propofol at 75 mcg/kg/min and the patient is also on fentanyl at 1.5 mcg/kg/ h. The patient is on assist-control mechanical ventilation at rate of 28, tidal volume of 400, FiO2 of 50% with a PEEP of 8. Peak airway pressures 32. The static airway pressure is 29. Blood gas shows a pH of 7.18 with a pCO2 of 62 and pO2 of 160. Hemodynamically, the patient remains hypotensive and currently is on norepinephrine at low-dose running at 0.04 mcg/kg/min and the patient is also on normal saline at rate of 75 cc an hour. The white cell count is at 15.3 with a hemoglobin 10.9 and a platelet count of 208. BUN is at 26 with a creatinine of 0.8 and sodium levels at 141 with a potassium level of 4.8 with a serum bicarb of 24. The chloride is at 115. The patient was receiving IV Rocephin. Cardiac rhythm is sinus. Remains on bronchodilators. Remains on steroids. Echocardiogram completed this morning a preserved LV function with an EF of around 55 to 60% without any significant valvular abnormalities. Right ventricular systolic pressure estimated to be around 38. Chest x-ray showing diffuse bilateral pulmonary infiltrates. Cultures are negative thus far. 10/16/2023, the patient is being seen for a follow-up. The patient remains sedated on propofol which is running at 75 mcg/kg/min and the patient is currently on fentanyl at 1.5 mcg/kg/h. The patient was taken off the Nimbex yesterday. Remains intubated on the mechanical ventilator. Remains on assist-control mode with rate of 20, tidal volume of 400, FiO2 of 50% with a PEEP of 8, and the patient blood gas showed pH 7.30 with a pCO2 of 47 and pO2 of 116. The bronchoscopy was done yesterday and the results of bronchial lavage are still pending. Chest x-ray showing diffuse bilateral pulm infiltrates, unchanged compared to yesterday. ET tube is in a good location. Echocardiogram was done yesterday and the patient was found to have a preserved LV function without any significant valvular abnormalities. Right ventricular systolic pressure was estimated to be at 35. No evidence of any pericardial effusion. The patient remains on Zosyn and vancomycin. Cultures are still pending for now. The patient is afebrile. The patient remains off pressors. Norepinephrine was weaned off and discontinued without any major difficulties and the patient is maintaining his own blood pressure. The patient however is on amiodarone drip at 0.5 mg/min regarding atrial fibrillation and his rate is controlled and converted into normal sinus rhythm. He remains on normal citrate of 75 cc an hour. He is on enteral feeding for nutritional support with vital high-protein at a rate of 30 cc an hour. Fluid balance is +3.1 L over the past 24 hours. On today's evaluation of 10/17/2023, seen the patient for a follow-up. Remains intubated on mechanical ventilator. This morning, the patient is on propofol running at 75 mcg/kg/min and fentanyl at 2 mcg/kg/h. The patient is also on Nimbex for paralysis as the patient was quite asynchronous with mechanical ventilator and the patient was peak pressuring yesterday Nimbex is running at 2 mcg/kg/min. The patient is currently on assist-control mode of mechanical ventilation at rate of 28, tidal volume of 350, FiO2 of 50% and PEEP of 6. The blood gas from today shows a pH of 7.24 with a pCO2 of 55 and a pO2 of 108. Chest x-ray from today shows diffuse bilateral pulmonary filtrates with some limited improvement in patient compared to yesterday. Bronchoscopy and bronchial lavage was done and the microbial culture is still pending is negative thus far and the patient remains on a combination of Zosyn and vancomycin. The vancomycin trough level was at 21. BUN is at 30 with a creatinine of 0.8 and sodium level at 144. WBC count is 8.3 with a hemoglobin 10.5 and a platelet count of 201. The patient remains on vital high-protein at 30 to 45 cc an hour. Fluid balance is +3.6 L over the past 24 hours. Meanwhile, the patient had an episode of atrial fibrillation yesterday with rapid ventricular response. The patient was loaded with amiodarone and currently is back in normal sinus rhythm. Amiodarone is running at 200 mg p.o. twice a day. The patient is also on anticoagulation with Eliquis 5 mg p.o. twice a day. The patient on Toprol-XL 25 mg p.o. daily. IV Solu-Medrol was also added. On 10/18/2023, seen the patient for a follow-up. Patient remains intubated on the mechanical ventilator. On today's evaluation, the patient is on propofol at 75 mcg/kg/min and fentanyl at 2 mcg/kg/h. The patient is also paralyzed as the patient was peak pressuring yesterday. Nimbex is running at 3 mcg/kg/min. Remains on mechanical ventilator. Peak airway pressure is 30. Static airway pressure is 20. Patient is on assist-control mode at rate of 28, tidal volume of 350, fentanyl 50% with a PEEP of 6. pH is at 7.36 with a pCO2 of 54 and pO2 of 69. The chest x-ray shows increased right lower lobe pulmonary infiltration, some interval improvement in the aeration bilaterally. Orotracheal tube is in the mid location. Patient is on no pressors. The patient was started on Lasix 40 mg IV every 12 hours and the patient is negative fluid balance of 2.9 L over the past 24 hours. The patient is receiving enteral feeding for nutritional support. Antibiotic coverage is unchanged. Remains on Zosyn and vancomycin. Cultures are all negative. BUN is 43 with a creatinine of 0.8 and sodium levels at 144. WBC count 0.6 with a hemoglobin of 11.1 and a platelet count of 185. Afebrile for now. Meanwhile, the patient is having some ectopies. He did have a run of atrial fibrillation yesterday and currently is back in normal sinus rhythm and the patient is on oral amiodarone. Patient is also on metoprolol 25 mg p.o. Anticoagulation with Eliquis. 10/19/2023, the patient is being seen for a follow-up. Remains intubated on mechanical ventilator. Chest x-ray still showing diffuse bilateral pulm infiltrates. Stable compared to yesterday. No significant interval improvement in chest x-ray findings. Right ear this morning, the patient developed A-fib RVR. He will be given another bolus of amiodarone 150 mg. He is on oral amiodarone 200 mg p.o. twice a day and metoprolol 25 mg 3 times daily. Rate is under better control for now. Remains on propofol at 75 mcg/kg/min and fentanyl at 2 mcg/kg/h. He is currently off Nimbex. He is on assist-control mode with rate of 28, tidal volume of 350, 150% with a PEEP of 6. pH is at 7.44 with a pCO2 of 52 and pO2 of 84. Fluid balance -3.3 L over the past 24 hours. White cell count is at 10.9 with a hemoglobin 11.8 and platelet count of 223. Sodium is at 148, potassium 3.8, bicarb is at 35, BUN is 51 with a creatinine of 0.8. The patient is on vital high-protein for enteral feeding and nutritional support at the rate of 51 cc an hour. The patient will need a laxative for bowel movement activity. Remains on Zosyn and vancomycin. All of the cultures have been negative. 01/20/2024, patient is being seen for a follow-up. The patient remains intubated on mechanical ventilator. He is off Nimbex. Paralytics have been discontinued for the past 48 hours and the patient is on propofol and fentanyl. Propofol is at 60 mcg/kg/min and fentanyl is at 1 mcg/kg/h. Upon receiving a sedation holiday, the patient is arousable. Nevertheless, not absolutely ready to be weaned off the mechanical ventilator. There is interval improvement in aeration on today's chest x-ray. He remains on assist-control mode of mechanical ventilation at rate of 28, tidal volume of 350, FiO2 50% with a PEEP of 6. Blood gas shows a pH of 7.51 with a pCO2 of 48 and pO2 of 86. Fluid balance is -3.1 L over the past 24 hours and the patient was being diuresed with IV Lasix. The patient is also on vital high-protein at rate of 51 cc an hour. Hemodynamically stable. Afebrile. Remains on broad-spectrum antibiotics. Cultures are negative. Remains on IV Solu-Medrol. Cardiac rhythm has remained sinus over the past 24 hours. Remains on amiodarone. Remains on 200 mg amio darone twice a day and metoprolol 25 mg 3 times daily. Remains on anticoagulation with Eliquis. 10/21/2023, the patient is on propofol at 55 mcg and fentanyl 1 mcg. Remains on a mechanical ventilator, intubated and the chest x-ray shows improvement in the aeration in both lungs. There is some residual right lower lobe pulm infiltrate. Lines on the place. The patient remains on the mechanical ventilator assist-control mode with rate of 18, tidal volume of 350, FiO2 of 40% with a PEEP of 6. Based on morning blood gas, the patient has a pH of 7.48 with a pCO2 of 45 and pO2 of 72. Started weaning the propofol and fentanyl. Sedation holiday was given and the patient seem to be appropriate. Subsequently parameters were adequate. The patient was given a post spontaneous breathing trial with a pressure support of 5 and a PEEP of 5. Blood gas showed a pH of 7.5 with a pCO2 of 43 and pO2 of 96. The patient was accordingly extubated. The rest of the labs show a WBC count of 11, hemoglobin 10.7 and a platelet count of 190. BUN 41 with a creatinine of 0.7 and sodium levels of 146. Fluid balance is -520 cc over the past 24 hours and IV Lasix has been discontinued. The patient was also receiving enteral feeding and the patient was on vital AF at the rate of 51 cc an hour. Procalcitonin level has dropped down to 0.17. The patient is having episodes of fever. Noted all of the cultures were negative from previous evaluations. He has a triple-lumen catheter in his left IJ. His cardiac rhythm is sinus. Remains on amiodarone and metoprolol and remains on anticoagulation with Eliquis. 10/22/2023, the patient is extubated on 4 L of oxygen by nasal cannula. Sitting up in a chair. Denies having any significant respiratory distress. Chest x-ray continues to show ongoing improvement with some residual pulmonary filtrates in lung base bilaterally more so on the right. Remains on IV Zosyn. Cardiac rhythm is sinus. Awake and alert and communicating. Neuro generalized global weakness in all 4 extremities. Mental status. The sodium is at 141, BUN 36 with a creatinine of 0.66. WBC count is 11.2 with a hemoglobin 10.8. Blood sugar is slightly elevated and the patient remains on insulin sliding scale insulin coverage. The patient remains on metoprolol 25 mg p.o. 3 times daily and amiodarone 100 mg p.o. twice daily and he is also on anticoagulation with Eliquis. All of the cultures were negative. Vancomycin has been discontinued. Steroids are to be tapered. Objective - Vital Signs Vital signs: Vital Signs Temp 99.6 F 10/22/23 04:00 Pulse 68 10/22/23 07:00 Resp 16 10/22/23 07:00 BP 102/60 10/22/23 06:00 Pulse Ox 97 10/22/23 07:00 FiO2 40 10/21/23 09:30 Intake & Output 10/21/23 10/22/23 10/22/23 18:59 06:59 18:59 Intake Total 830.399 758.875 143 Output Total 1550 810 75 Balance -719.601 -51.125 68 Weight 80.4 kg 78.7 kg Intake: IV 479 453 23 0.9 39 33 3 Piperacillin-Tazobactam 3 200 100 .375 gm In Sodium Chloride 0.9% 100 ml @ 25 mls/hr IVPB Q8H [facility] Rx#: [id number] Potassium Chloride 10 meq 100 In Water For Injection 1 100ml.bag @ 100 mls/hr IVPB Q1H [facility] Rx#: [id number] Sodium Chloride 0.9% 1, 240 220 20 000 ml @ 20 mls/hr IV . Q24H [facility] Rx#:[id number] Intake, IV Titration 168.399 65.875 Amount Clevidipine Butyrate 25 37.566 50 mg In Empty Bag 1 bag @ 1 MG/HR 2 mls/hr IV .Q24H [facility] Rx#:[id number] Dexmedetomidine/0.9% NaCl 9.481 (Pmx) 400 mcg In Empty Bag 1 bag @ 0.2 MCG/KG/HR 4.02 mls/hr IV .Q24H [facility] Rx#:[id number] fentaNYL (PF). 1,000 mcg 47.625 15.875 In Sodium Chloride 0.9% 80 ml @ 0.5 MCG/KG/HR 3. 175 mls/hr IV .Q24H [facility] Rx#:[id number] propofoL 1,000 mg In 73.727 Empty Bag 1 bag @ 15 MCG/ KG/MIN 5.715 mls/hr IV . [id number] [facility] Rx#:[id number] Oral 240 120 Tube Feeding 153 Other 30 Output: Urine 1550 810 75 Other: Voiding Method Indwelling Catheter Indwelling Catheter # Bowel Movements 2 ABP, PAP, CO, CI - Last Documented Arterial Blood Pressure 165/79 - Exam Calm and comfortable, the patient was extubated to 4 L of oxygen by nasal cannula Head exam was generally normal. There was no scleral icterus or corneal arcus. Mucous membranes were moist. HEENT examination is grossly unremarkable. Mucous membranes are moist. No oral lesions. Neck supple. Full range of motion. No adenopathy thyromegaly or neck vein distention. Cardiovascular examination reveals regular rhythm rate. S1-S2 normal. No S3 or S4. No discernible murmur noted. Heart sounds are distant. Lungs reveal bilateral scattered inspiratory and expiratory rhonchi. Breath sounds are equal. No crackles or wheezes. Lung sounds are diminished bilaterally and the patient has diminished breath sounds Abdominal exam revealed normal bowel sounds. The abdomen was soft, non-tender, and without masses, organomegaly, or appreciable enlargement of the abdominal aorta. Extremities are intact. No cyanosis clubbing or edema. Skin is without rash or lesion. Neurologic examination lethargic. Awake and communicating. No focal neurological deficit at this point in time. - Labs CBC & Chem 7: 10/22/23 05:14 10/22/23 05:14 Labs: Abnormal Lab Results - Last 24 Hours (Table) 10/21/23 10/21/23 10/21/23 Range/Units 11:18 11:20 18:46 WBC (3.8-10.6) k/uL RBC (4.30-5.90) m/uL Hgb (13.0-17.5) gm/dL Hct (39.0-53.0) % ABG pH 7.50 H (7.35-7.45) ABG HCO3 33 H (21-25) mmol/L ABG O2 Saturation 98.4 H (94-97) % Chloride (98-107) mmol/L BUN (9-20) mg/dL Glucose (74-99) mg/dL POC Glucose (mg/dL) 258 H 173 H (70-110) mg/dL Calcium (8.4-10.2) mg/dL Magnesium (1.6-2.3) mg/dL 10/21/23 10/22/23 10/22/23 Range/Units 22:57 05:08 05:14 WBC (3.8-10.6) k/uL RBC (4.30-5.90) m/uL Hgb (13.0-17.5) gm/dL Hct (39.0-53.0) % ABG pH (7.35-7.45) ABG HCO3 (21-25) mmol/L ABG O2 Saturation (94-97) % Chloride 109 H (98-107) mmol/L BUN 36 H (9-20) mg/dL Glucose 198 H (74-99) mg/dL POC Glucose (mg/dL) 201 H 206 H (70-110) mg/dL Calcium 8.0 L (8.4-10.2) mg/dL Magnesium 2.4 H (1.6-2.3) mg/dL 10/22/23 Range/Units 05:14 WBC 11.2 H (3.8-10.6) k/uL RBC 3.86 L (4.30-5.90) m/uL Hgb 10.8 L (13.0-17.5) gm/dL Hct 34.2 L (39.0-53.0) % ABG pH (7.35-7.45) ABG HCO3 (21-25) mmol/L ABG O2 Saturation (94-97) % Chloride (98-107) mmol/L BUN (9-20) mg/dL Glucose (74-99) mg/dL POC Glucose (mg/dL) (70-110) mg/dL Calcium (8.4-10.2) mg/dL Magnesium (1.6-2.3) mg/dL Assessment and Plan Plan: Acute exacerbation of chronic COPD, with development of diffuse bilateral p ulmonary infiltrates, currently still on mechanical ventilator with interval improvement of bilateral pulmonary filtrates. The cultures were all negative including the cultures from the bronchoalveolar lavage. Chest x-ray findings improved. Blood gas improved. Patient was extubated on 10/21/2023 and the patient is currently on 40% oxygen by nasal cannula. Chest x-ray continues to improve. All of the cultures came back negative. Acute leukocytosis, improved and the white cell count is improved Acute hypercapnic respiratory failure, stable, improved Acute hypoxic respiratory failure, remains intubated on mechanical ventilator Hypotension, likely septic in nature and the patient is currently off pressors Paroxysmal A-fib, currently back in normal sinus rhythm and the patient is curr ently on Toprol-XL 25 mg p.o. daily and amiodarone 200 mg p.o. twice a day and anticoagulation with Eliquis. The current cardiac rhythm is sinus. Previous history of COPD exac progressive bilateral pulmonary infiltrates with rapiderbation requiring intubation and mechanical ventilatory support on 05/19/2023. The patient was extubated on 05/23/2023 Previous history of pseudomonal growth in the sputum rule out pseudomonal tracheal bronchitis/pneumonia. 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 Previous serum Aspergillus antibodies obtained in April 2023 was negative Chronic and ongoing tobacco dependence of nearly 50 years History of alcoholism Marijuana use History of depression Plan Oxygen 4 L/min nasal cannula Incentive spirometer The patient has been afebrile over the past 24 hours. Continues monitor the fever pattern. Procalcitonin level has been dropping. Recheck blood cultures. May remove the triple-lumen catheter within next 24 hours. The bronchioloalveolar lavage was negative for any microbial, bacterial, fungal or viral elements. Continue IV Zosyn. Vancomycin has been discontinued Procalcitonin level was elevated. Will monitor the levels, levels are improving Change IV fluids to KVO No need for diuretics Provide oral intake/diet Discontinue the IV Solu-Medrol and start the patient on prednisone burst taper starting with 40 mg p.o. daily Daily chest x-rays Echocardiogram to be done today to evaluate LV function, this was noted and the patient has a preserved LV function without any valvular abnormalities. Will continue to follow.
--- NOTE | 2023-10-22 13:42 | P.PN ---
Subjective Progress Note Date: 10/22/23 63-year-old male with a past medical history of COPD on home oxygen, hypertension, chronic back pain, history of cervical fusion surgery, depression currently everyday smoker and marijuana use. Patient presents to ER with complaints of worsening shortness of breath anxiety, chills and fever. Patient was tachycardic and tachypneic on admission. States that he has subjective fevers. Cough and congestion and unable to bring out any sputum. No complaints of chest pain. No nausea vomiting abdominal pain or diarrhea. No headache or dizziness or neck stiffness. Chest x-ray showed perihilar infiltrates in the deflector lobar pneumonia. Correlate clinically and appropriate studies are recommended. EKG showed atrial fibrillation with rapid ventricular response. Patient had a cardiac catheterization on 09/14/2023 showed relatively normal coronaries and normal left sided filling pressures. Laboratory test showed WBC 23.7 hemoglobin 14.2 and platelets 265 Sodium 141 potassium 3.8 chloride 104 bicarb is 22 BUN 16 and creatinine 0.94 and blood sugar 89 and lactic acid 4.7 and magnesium 1.5 [place] Elevated procalcitonin level 2.4. Troponin x 1 negative proBNP 262 10/20/2023 Patient is seen and evaluated in room in ICU; patient remains intubated on mechanical ventilator. Paralytics have been discontinued for the past 48 hours and the patient is on propofol and fentanyl. -- Upon receiving a sedation holiday, the patient is arousable. There is interval improvement in aeration on today's chest x-ray. He remains on assist- control mode of mechanical ventilation at rate of 28, tidal volume of 350, FiO2 50% with a PEEP of 6. Blood gas shows a pH of 7.51 with a pCO2 of 48 and pO2 of 86. Fluid balance is -3.1 L over the past 24 hours and the patient was being di uresed with IV Lasix. The patient is also on vital high-protein at rate of 51 cc an hour. Hemodynamically stable. Afebrile. Remains on broad-spectrum antibiotics. Cultures are negative. Remains on IV Solu-Medrol. Cardiac rhythm has remained sinus over the past 24 hours. Remains on amiodarone. Remains on 200 mg amiodarone twice a day and metoprolol 25 mg 3 times daily. Remains on anticoagulation with Eliquis 10/21. Patient seen and examined. Dr. Lewis took over care. Lab work done this morning showed WBC 9.2, hemoglobin 10.8, platelet count 174, sodium 141, potassium 3.8, BUN 30, creatinine 0.66. Sitting upright in the chair. Currently on 4 L of oxygen. REVIEW OF SYSTEMS: CONSTITUTIONAL: No fever, no malaise,. CARDIOVASCULAR: No chest pain, no palpitations, no syncope. PULMONARY: Denies chest pain GASTROINTESTINAL: No diarrhea, no nausea, no vomiting, no abdominal pain. NEUROLOGICAL: No headaches, no weakness, PHYSICAL EXAMINATION: GENERAL: The patient is alert and oriented x3, chronically ill looking HEENT: Pupils are round and equally reacting to light. EOMI. No scleral icterus. No conjunctival pallor. Normocephalic, atraumatic. No pharyngeal erythema. No thyromegaly. CARDIOVASCULAR: S1 and S2 present. No murmurs, rubs, or gallops. PULMONARY: Coarse breath sound bilaterally, no wheezing or crackles. ABDOMEN: Soft, nontender, nondistended, normoactive bowel sounds. No palpable organomegaly. MUSCULOSKELETAL: No joint swelling or deformity. EXTREMITIES: No cyanosis, clubbing, or pedal edema. NEUROLOGICAL: Gross neurological examination did not reveal any focal deficits. SKIN: No rashes. Assessment and plan Acute on chronic hypoxemic respiratory failure secondary to COPD and pneumonia. Patient was on 100% nonrebreather currently requiring mechanical ventilator. Acute COPD exacerbation Bilateral pneumonia Sepsis secondary to pneumonia New onset A-fib with RVR as per EKG on admission Ongoing nicotine addiction GERD Hypertension Prior history of pneumonia Depression Marijuana use COPD on home oxygen as needed DVT prophylaxis with heparin subcu Plan: Monitor vital signs monitor CBC Monitor CMP Patient is status post bronchoscopy on 10/15/2023 Follow-up blood cultures and sputum cultures and BAL cultures. Continue IV Zosyn Patient is being continued on IV Solu-Medrol, DuoNebs and oxygen supplementation. Continue Eliquis continue with metoprolol and amiodarone. Patient was also started on IV Lasix. Cardiology and pulmonary is on board. Labs and medication were reviewed.. Continue same treatment. Continue with symptomatic treatment. Resume home medication. Monitor labs and vitals. DVT and GI prophylaxis. Further recommendations as per clinical course of the patient Dictation was produced using [employer] dictation software. please excuse any grammatical, word or spelling errors. Objective - Vital Signs Vital signs: Vital Signs Temp 99.6 F 10/22/23 04:00 Pulse 68 10/22/23 07:00 Resp 16 10/22/23 07:00 BP 102/60 10/22/23 06:00 Pulse Ox 97 10/22/23 07:00 FiO2 40 10/21/23 09:30 Intake & Output 10/21/23 10/22/23 10/22/23 18:59 06:59 18:59 Intake Total 830.399 758.875 349 Output Total 1550 810 225 Balance -719.601 -51.125 124 Weight 80.4 kg 78.7 kg Intake: IV 479 453 229 0.9 39 33 9 Piperacillin-Tazobactam 3 200 100 100 .375 gm In Sodium Chloride 0.9% 100 ml @ 25 mls/hr IVPB Q8H [facility] Rx#: [id number] Potassium Chloride 10 meq 100 100 In Water For Injection 1 100ml.bag @ 100 mls/hr IVPB Q1H [facility] Rx#: [id number] Sodium Chloride 0.9% 1, 240 220 20 000 ml @ 20 mls/hr IV . Q24H [facility] Rx#:[id number] Intake, IV Titration 168.399 65.875 Amount Clevidipine Butyrate 25 37.566 50 mg In Empty Bag 1 bag @ 1 MG/HR 2 mls/hr IV .Q24H [facility] Rx#:[id number] Dexmedetomidine/0.9% NaCl 9.481 (Pmx) 400 mcg In Empty Bag 1 bag @ 0.2 MCG/KG/HR 4.02 mls/hr IV .Q24H [facility] Rx#:[id number] fentaNYL (PF). 1,000 mcg 47.625 15.875 In Sodium Chloride 0.9% 80 ml @ 0.5 MCG/KG/HR 3. 175 mls/hr IV .Q24H [facility] Rx#:[id number] propofoL 1,000 mg In 73.727 Empty Bag 1 bag @ 15 MCG/ KG/MIN 5.715 mls/hr IV . [id number] [facility] Rx#:[id number] Oral 240 120 Tube Feeding 153 Other 30 Output: Urine 1550 810 225 Other: Voiding Method Indwelling Catheter Indwelling Catheter # Bowel Movements 2 ABP, PAP, CO, CI - Last Documented Arterial Blood Pressure 165/79 - Labs CBC & Chem 7: 10/22/23 05:14 10/22/23 05:14 Labs: Abnormal Lab Results - Last 24 Hours (Table) 10/21/23 10/21/23 10/21/23 Range/Units 11:18 11:20 18:46 WBC (3.8-10.6) k/uL RBC (4.30-5.90) m/uL Hgb (13.0-17.5) gm/dL Hct (39.0-53.0) % ABG pH 7.50 H (7.35-7.45) ABG HCO3 33 H (21-25) mmol/L ABG O2 Saturation 98.4 H (94-97) % Chloride (98-107) mmol/L BUN (9-20) mg/dL Glucose (74-99) mg/dL POC Glucose (mg/dL) 258 H 173 H (70-110) mg/dL Calcium (8.4-10.2) mg/dL Magnesium (1.6-2.3) mg/dL 10/21/23 10/22/23 10/22/23 Range/Units 22:57 05:08 05:14 WBC (3.8-10.6) k/uL RBC (4.30-5.90) m/uL Hgb (13.0-17.5) gm/dL Hct (39.0-53.0) % ABG pH (7.35-7.45) ABG HCO3 (21-25) mmol/L ABG O2 Saturation (94-97) % Chloride 109 H (98-107) mmol/L BUN 36 H (9-20) mg/dL Glucose 198 H (74-99) mg/dL POC Glucose (mg/dL) 201 H 206 H (70-110) mg/dL Calcium 8.0 L (8.4-10.2) mg/dL Magnesium 2.4 H (1.6-2.3) mg/dL 10/22/23 Range/Units 05:14 WBC 11.2 H (3.8-10.6) k/uL RBC 3.86 L (4.30-5.90) m/uL Hgb 10.8 L (13.0-17.5) gm/dL Hct 34.2 L (39.0-53.0) % ABG pH (7.35-7.45) ABG HCO3 (21-25) mmol/L ABG O2 Saturation (94-97) % Chloride (98-107) mmol/L BUN (9-20) mg/dL Glucose (74-99) mg/dL POC Glucose (mg/dL) (70-110) mg/dL Calcium (8.4-10.2) mg/dL Magnesium (1.6-2.3) mg/dL
--- NOTE | 2023-10-22 13:51 | P.PN ---
Subjective Paroxysmal atrial fibrillation The patient is a pleasant 63-year-old gentleman with a past medical history significant for COPD who was admitted to the hospital with acute hypoxic respiratory failure secondary to COPD exacerbation and heart failure with preserved ejection fraction exacerbation. He was noted to be in atrial fibrillation. Subsequently he converted to normal sinus mechanism. October 18, 2023 The patient was seen and evaluated this morning. He remains intubated on mechanical ventilation. He is hemodynamically stable. He remains in sinus mechanism with atrial bigeminy and ventricular bigeminy and short runs of nonsustained ventricular tachycardia but his potassium has been low which has been replaced this morning. The echo showed normal LV systolic function. He is on oral anticoagulation. He is also on metoprolol and he is on amiodarone orally. He remains in failure and continues to be on Lasix IV with a chest x-ray this morning continues to be wet and he has been making significant amount of urine on the current dose of Lasix IV. The examination is remarkable for bilateral lower extremities edema and diminished breathing sounds bilaterally 10/19 Patient seen and examined. Patient remains on amiodarone 200 mg twice a day, Elocon was 5 mg twice a day, metoprolol 25 mg 3 times a day. He has remained intubated and sedated. Currently FiO2 40% and a PEEP of 6. Remains in sinus rhythm and no significant A. fib or arrhythmia. 10/20 patient seen and examined. Patient remains on amiodarone 200 mg twice a day. Remains intubated and sedated however hopeful trial of extubation today. FiO2 40% and PEEP of 6. No significant arrhythmias and maintaining sinus rhythm. 10/21 Paroxysmal atrial fibrillation The patient is a pleasant 63-year-old gentleman with a past medical history significant for COPD who was admitted to the hospital with acute hypoxic respiratory failure secondary to COPD exacerbation and heart failure with preserved ejection fraction exacerbation. He was noted to be in atrial fibrill ation. Subsequently he converted to normal sinus mechanism. October 18, 2023 The patient was seen and evaluated this morning. He remains intubated on mechanical ventilation. He is hemodynamically stable. He remains in sinus mechanism with atrial bigeminy and ventricular bigeminy and short runs of n onsustained ventricular tachycardia but his potassium has been low which has been replaced this morning. The echo showed normal LV systolic function. He is on oral anticoagulation. He is also on metoprolol and he is on amiodarone orally. He remains in failure and continues to be on Lasix IV with a chest x- ray this morning continues to be wet and he has been making significant amount of urine on the current dose of Lasix IV. The examination is remarkable for bilateral lower extremities edema and diminished breathing sounds bilaterally 10/19 Patient seen and examined. Patient remains on amiodarone 200 mg twice a day, Elocon was 5 mg twice a day, metoprolol 25 mg 3 times a day. He has remained intubated and sedated. Currently FiO2 40% and a PEEP of 6. Remains in sinus rhythm and no significant A. fib or arrhythmia. 10/20 patient seen and examined. Patient remains on amiodarone 200 mg twice a day. Remains intubated and sedated however hopeful trial of extubation today. FiO2 40% and PEEP of 6. No significant arrhythmias and maintaining sinus rhythm. Assessment Acute hypoxic respiratory failure secondary to COPD exacerbation and CHF exacerbation Persistent atrial fibrillation but currently the patient has been maintaining normal sinus mechanism Atrial bigeminy and ventricular bigeminy and short runs of nonsustained ventricular tachycardia Electrolytes imbalance with hypokalemia Multiple comorbid conditions Plan continue with current regimen. we will change amiodarone to 200 mg daily 10/23/2023 He is status post extubation and continue with current supportive care Objective - Vital Signs Vital signs: Vital Signs Temp 97.8 F 10/22/23 12:00 Pulse 70 10/22/23 13:00 Resp 17 10/22/23 13:00 BP 102/60 10/22/23 06:00 Pulse Ox 98 10/22/23 13:00 FiO2 40 10/21/23 09:30 Intake & Output 10/21/23 10/22/23 10/22/23 18:59 06:59 18:59 Intake Total 830.399 758.875 401 Output Total 1550 810 420 Balance -719.601 -51.125 -19 Weight 80.4 kg 78.7 kg Intake: IV 479 453 281 0.9 39 33 21 Piperacillin-Tazobactam 3 200 100 100 .375 gm In Sodium Chloride 0.9% 100 ml @ 25 mls/hr IVPB Q8H [facility] Rx#: [id number] Potassium Chloride 10 meq 100 140 In Water For Injection 1 100ml.bag @ 100 mls/hr IVPB Q1H [facility] Rx#: [id number] Sodium Chloride 0.9% 1, 240 220 20 000 ml @ 20 mls/hr IV . Q24H [facility] Rx#:[id number] Intake, IV Titration 168.399 65.875 Amount Clevidipine Butyrate 25 37.566 50 mg In Empty Bag 1 bag @ 1 MG/HR 2 mls/hr IV .Q24H [facility] Rx#:[id number] Dexmedetomidine/0.9% NaCl 9.481 (Pmx) 400 mcg In Empty Bag 1 bag @ 0.2 MCG/KG/HR 4.02 mls/hr IV .Q24H [facility] Rx#:[id number] fentaNYL (PF). 1,000 mcg 47.625 15.875 In Sodium Chloride 0.9% 80 ml @ 0.5 MCG/KG/HR 3. 175 mls/hr IV .Q24H [facility] Rx#:[id number] propofoL 1,000 mg In 73.727 Empty Bag 1 bag @ 15 MCG/ KG/MIN 5.715 mls/hr IV . [id number] [facility] Rx#:[id number] Oral 240 120 Tube Feeding 153 Other 30 Output: Urine 1550 810 420 Other: Voiding Method Indwelling Catheter Indwelling Catheter Indwelling Catheter # Bowel Movements 2 ABP, PAP, CO, CI - Last Documented Arterial Blood Pressure 125/56 - Labs CBC & Chem 7: 10/22/23 05:14 10/22/23 05:14 Labs: Abnormal Lab Results - Last 24 Hours (Table) 10/21/23 10/21/23 10/22/23 Range/Units 18:46 22:57 05:08 WBC (3.8-10.6) k/uL RBC (4.30-5.90) m/uL Hgb (13.0-17.5) gm/dL Hct (39.0-53.0) % Chloride (98-107) mmol/L BUN (9-20) mg/dL Glucose (74-99) mg/dL POC Glucose (mg/dL) 173 H 201 H 206 H (70-110) mg/dL Calcium (8.4-10.2) mg/dL Magnesium (1.6-2.3) mg/dL ALT (4-49) U/L Amylase (30-110) U/L 10/22/23 10/22/23 10/22/23 Range/Units 05:14 05:14 05:14 WBC 11.2 H (3.8-10.6) k/uL RBC 3.86 L (4.30-5.90) m/uL Hgb 10.8 L (13.0-17.5) gm/dL Hct 34.2 L (39.0-53.0) % Chloride 109 H (98-107) mmol/L BUN 36 H (9-20) mg/dL Glucose 198 H (74-99) mg/dL POC Glucose (mg/dL) (70-110) mg/dL Calcium 8.0 L (8.4-10.2) mg/dL Magnesium 2.4 H (1.6-2.3) mg/dL ALT 90 H (4-49) U/L Amylase 141 H (30-110) U/L 10/22/23 Range/Units 11:51 WBC (3.8-10.6) k/uL RBC (4.30-5.90) m/uL Hgb (13.0-17.5) gm/dL Hct (39.0-53.0) % Chloride (98-107) mmol/L BUN (9-20) mg/dL Glucose (74-99) mg/dL POC Glucose (mg/dL) 235 H (70-110) mg/dL Calcium (8.4-10.2) mg/dL Magnesium (1.6-2.3) mg/dL ALT (4-49) U/L Amylase (30-110) U/L
[2023-10-22 17:55] LABS: Glucose,Whole Blood 270 mg/dL (70-110)
[2023-10-22 22:43] LABS: Glucose,Whole Blood 172 mg/dL (70-110)
[2023-10-23 04:39] LABS: Basophils % (A) 0 %; Eosinophils % (A) 0 %; HCT 33.9 % (39.0-53.0); HGB 11.1 gm/dL (13.0-17.5); Lymphocytes % (A) 10 %; MCH 28.3 pg (25.0-35.0); MCHC 32.7 g/dL (31.0-37.0); MCV 86.5 fL (80.0-100.0); Monocytes # (A) 0.5 k/uL (0-1.0); Monocytes % (A) 5 %; Neutrophils # (A) 8.2 k/uL (1.3-7.7); Neutrophils % (A) 83 %; Platelet Count 155 k/uL (150-450); RBC 3.92 m/uL (4.30-5.90); RDW 13.7 % (11.5-15.5); WBC 9.9 k/uL (3.8-10.6)
[2023-10-23 04:52] LABS: African American GFR (CKD) >90 (>60 ml/min/1.73 sqM); Anion Gap 2 mmol/L; Blood Urea Nitrogen 30 mg/dL (9-20); Calcium 7.8 mg/dL (8.4-10.2); Carbon Dioxide 28 mmol/L (22-30); Chloride 108 mmol/L (98-107); Glucose 114 mg/dL (74-99); Non-African American GFR(CKD) >90 (>60 ml/min/1.73 sqM); Potassium 3.5 mmol/L (3.5-5.1); Sodium 138 mmol/L (137-145)
[2023-10-23] MEDS: POTASSIUM CHLORIDE 20 MEQ in WATER FOR INJECTION 1 100ML.BAG IVPB SCH (06:18)
[2023-10-23 06:27] LABS: Glucose,Whole Blood 116 mg/dL (70-110)
--- NOTE | 2023-10-23 07:31 | XR ---
EXAMINATION TYPE: XR chest 1V portable DATE OF EXAM: 10/23/2023 Comparison: 10/21/2023 Clinical History: 63-year-old male follow up right lower lobe infiltrate Findings: Left CVC tip mid to lower SVC. Heart mildly enlarged. Posterior cervical fusion hardware partially vi sualized. Mild interstitial density persists. Focal patchy right basilar opacity also persist but wit h slight improvement. Impression: Mild patchy interstitial changes persist. Focal opacity at the right base shows slight improvement.
--- NOTE | 2023-10-23 09:06 | P.PN ---
Subjective Progress Note Date: 10/23/23 The patient is a 63-year-old male who is currently admitted to the hospital with acute hypoxic respiratory failure secondary to pneumonia. Cardiology has been consulted for atrial fibrillation, where he converted back to sinus mechanism with amiodarone. He has been transition to oral antiarrhythmic therapy since extubation. Overnight the patient did have sinus bradycardia into the low 40s. His metoprolol is currently being held. Patient was interviewed and examined resting comfortably in bed. The patient states he did get up to the recliner chair yesterday, but continues to have weakness and fatigue. He denies any current shortness of breath or difficulty breathing. He denies any chest discomfort. GENERAL: Ill-appearing, well-nourished and in no acute distress. Mildly diaphoretic. NECK: Supple without JVD or thyromegaly. LUNGS: Breath sounds diminished to auscultation bilaterally. Respiration equal and unlabored. No wheezes, rales or rhonchi. HEART: Regular rate and rhythm without murmurs, rubs or gallops. S1 and S2 heard. EXTREMITIES: Normal range of motion, no edema. No clubbing or cyanosis. Peripheral pulses intact and strong. TELEMETRY: Sinus bradycardia overnight. Low heart rates in the 40s IMPRESSION: Paroxysmal atrial fibrillation Acute hypoxic respiratory failure, secondary to pneumonia History of COPD History of smoking PLAN: Reduce metoprolol to 25 twice daily Hold for heart rate less than 55 Continue supportive treatment including aggressive pulmonary hygiene Further recommendations to be based upon clinical course I am dictating on behalf of Dr Joao Chen's history/physical and assessment/plan. Objective - Vital Signs Vital signs: Vital Signs Temp 97.6 F 10/23/23 08:00 Pulse 55 L 10/23/23 08:30 Resp 24 10/23/23 08:30 BP 133/85 10/23/23 08:30 Pulse Ox 99 10/23/23 08:30 FiO2 40 10/21/23 09:30 Intake & Output 10/22/23 10/23/23 10/23/23 18:59 06:59 18:59 Intake Total 516 560 110 Output Total 680 540 100 Balance -164 20 10 Weight 79.5 kg Intake: IV 396 320 110 0.9 36 30 Invasive Line 3 30 Invasive Line 5 10 Piperacillin-Tazobactam 3 100 50 50 .375 gm In Sodium Chloride 0.9% 100 ml @ 25 mls/hr IVPB Q8H [facility] Rx#: [id number] Potassium Chloride 10 meq 240 240 20 In Water For Injection 1 100ml.bag @ 100 mls/hr IVPB Q1H [facility] Rx#: [id number] Sodium Chloride 0.9% 1, 20 000 ml @ 20 mls/hr IV . Q24H [facility] Rx#:[id number] Oral 120 240 Output: Urine 680 540 100 Other: Voiding Method Indwelling Catheter Indwelling Catheter ABP, PAP, CO, CI - Last Documented Arterial Blood Pressure 138/66 - Labs CBC & Chem 7: 10/23/23 04:00 10/23/23 04:00 Labs: Abnormal Lab Results - Last 24 Hours (Table) 10/22/23 10/22/23 10/22/23 Range/Units 05:14 11:51 17:54 RBC (4.30-5.90) m/uL Hgb (13.0-17.5) gm/dL Hct (39.0-53.0) % Neutrophils # (1.3-7.7) k/uL Chloride (98-107) mmol/L BUN (9-20) mg/dL Creatinine (0.66-1.25) mg/dL Glucose (74-99) mg/dL POC Glucose (mg/dL) 235 H 270 H (70-110) mg/dL Calcium (8.4-10.2) mg/dL ALT 90 H (4-49) U/L Amylase 141 H (30-110) U/L 10/22/23 10/23/23 10/23/23 Range/Units 22:41 04:00 04:00 RBC 3.92 L (4.30-5.90) m/uL Hgb 11.1 L (13.0-17.5) gm/dL Hct 33.9 L (39.0-53.0) % Neutrophils # 8.2 H (1.3-7.7) k/uL Chloride 108 H (98-107) mmol/L BUN 30 H (9-20) mg/dL Creatinine 0.63 L (0.66-1.25) mg/dL Glucose 114 H (74-99) mg/dL POC Glucose (mg/dL) 172 H (70-110) mg/dL Calcium 7.8 L (8.4-10.2) mg/dL ALT (4-49) U/L Amylase (30-110) U/L 10/23/23 Range/Units 06:26 RBC (4.30-5.90) m/uL Hgb (13.0-17.5) gm/dL Hct (39.0-53.0) % Neutrophils # (1.3-7.7) k/uL Chloride (98-107) mmol/L BUN (9-20) mg/dL Creatinine (0.66-1.25) mg/dL Glucose (74-99) mg/dL POC Glucose (mg/dL) 116 H (70-110) mg/dL Calcium (8.4-10.2) mg/dL ALT (4-49) U/L Amylase (30-110) U/L Microbiology - Last 24 Hours (Table) 10/21/23 14:28 Blood Culture - Preliminary Blood 10/21/23 14:29 Blood Culture - Preliminary Blood
[2023-10-23 11:23] LABS: Glucose,Whole Blood 122 mg/dL (70-110)
[2023-10-23 11:58] LABS: Magnesium 2.2 mg/dL (1.6-2.3)
--- NOTE | 2023-10-23 12:43 | P.PN ---
Subjective Progress Note Date: 10/23/23 Principal diagnosis: Acute hypoxic and hypercapnic respiratory failure secondary to acute exacerbation of COPD and bilateral pneumonia. On 10/15/2023, patient is being seen for a follow-up. The patient remains intubated on the mechanical ventilator with diffuse bilateral pulmonary filtrates, likely presenting bilateral pneumonia. This morning, the patient is on propofol at 75 mcg/kg/min and the patient is also on fentanyl at 1.5 mcg/kg/h. The patient is on assist-control mechanical ventilation at rate of 28, tidal volume of 400, FiO2 of 50% with a PEEP of 8. Peak airway pressures 32. The static airway pressure is 29. Blood gas shows a pH of 7.18 with a pCO2 of 62 and pO2 of 160. Hemodynamically, the patient remains hypotensive and currently is on norepinephrine at low-dose running at 0.04 mcg/kg/min and the patient is also on normal saline at rate of 75 cc an hour. The white cell count is at 15.3 with a hemoglobin 10.9 and a platelet count of 208. BUN is at 26 with a creatinine of 0.8 and sodium levels at 141 with a potassium level of 4.8 with a serum bicarb of 24. The chloride is at 115. The patient was receiving IV Rocephin. Cardiac rhythm is sinus. Remains on bronchodilators. Remains on steroids. Echocardiogram completed this morning a preserved LV function with an EF of around 55 to 60% without any significant valvular abnormalities. Right ventricular systolic pressure estimated to be around 38. Chest x-ray showing diffuse bilateral pulmonary infiltrates. Cultures are negative thus far. 10/16/2023, the patient is being seen for a follow-up. The patient remains sedated on propofol which is running at 75 mcg/kg/min and the patient is currently on fentanyl at 1.5 mcg/kg/h. The patient was taken off the Nimbex yesterday. Remains intubated on the mechanical ventilator. Remains on assist- control mode with rate of 20, tidal volume of 400, FiO2 of 50% with a PEEP of 8, and the patient blood gas showed pH 7.30 with a pCO2 of 47 and pO2 of 116. The bronchoscopy was done yesterday and the results of bronchial lavage are still pending. Chest x-ray showing diffuse bilateral pulm infiltrates, unchanged compared to yesterday. ET tube is in a good location. Echocardiogram was done yesterday and the patient was found to have a preserved LV function without any significant valvular abnormalities. Right ventricular systolic pressure was estimated to be at 35. No evidence of any pericardial effusion. The patient remains on Zosyn and vancomycin. Cultures are still pending for now. The patient is afebrile. The patient remains off pressors. Norepinephrine was weaned off and discontinued without any major difficulties and the patient is maintaining his own blood pressure. The patient however is on amiodarone drip at 0.5 mg/min regarding atrial fibrillation and his rate is controlled and converted into normal sinus rhythm. He remains on normal citrate of 75 cc an hour. He is on enteral feeding for nutritional support with vital high-protein at a rate of 30 cc an hour. Fluid balance is +3.1 L over the past 24 hours. On today's evaluation of 10/17/2023, seen the patient for a follow-up. Remains intubated on mechanical ventilator. This morning, the patient is on propofol running at 75 mcg/kg/min and fentanyl at 2 mcg/kg/h. The patient is also on Nimbex for paralysis as the patient was quite asynchronous with mechanical ventilator and the patient was peak pressuring yesterday Nimbex is running at 2 mcg/kg/min. The patient is currently on assist-control mode of mechanical ventilation at rate of 28, tidal volume of 350, FiO2 of 50% and PEEP of 6. The blood gas from today shows a pH of 7.24 with a pCO2 of 55 and a pO2 of 108. Chest x-ray from today shows diffuse bilateral pulmonary filtrates with some limited improvement in patient compared to yesterday. Bronchoscopy and bronchial lavage was done and the microbial culture is still pending is negative thus far and the patient remains on a combination of Zosyn and vancomycin. The vancomycin trough level was at 21. BUN is at 30 with a creatinine of 0.8 and sodium level at 144. WBC count is 8.3 with a hemoglobin 10.5 and a platelet cou nt of 201. The patient remains on vital high-protein at 30 to 45 cc an hour. Fluid balance is +3.6 L over the past 24 hours. Meanwhile, the patient had an episode of atrial fibrillation yesterday with rapid ventricular response. The patient was loaded with amiodarone and currently is back in normal sinus rhythm. Amiodarone is running at 200 mg p.o. twice a day. The patient is also on anticoagulation with Eliquis 5 mg p.o. twice a day. The patient on Toprol-XL 25 mg p.o. daily. IV Solu-Medrol was also added. On 10/18/2023, seen the patient for a follow-up. Patient remains intubated on the mechanical ventilator. On today's evaluation, the patient is on propofol at 75 mcg/kg/min and fentanyl at 2 mcg/kg/h. The patient is also paralyzed as the patient was peak pressuring yesterday. Nimbex is running at 3 mcg/kg/min. Remains on mechanical ventilator. Peak airway pressure is 30. Static airway pressure is 20. Patient is on assist-control mode at rate of 28, tidal volume of 350, fentanyl 50% with a PEEP of 6. pH is at 7.36 with a pCO2 of 54 and pO2 of 69. The chest x-ray shows increased right lower lobe pulmonary infiltration, some interval improvement in the aeration bilaterally. Orotracheal tube is in the mid location. Patient is on no pressors. The patient was started on Lasix 40 mg IV every 12 hours and the patient is negative fluid balance of 2.9 L over the past 24 hours. The patient is receiving enteral feeding for nutritional support. Antibiotic coverage is unchanged. Remains on Zosyn and vancomycin. Cultures are all negative. BUN is 43 with a creatinine of 0.8 and sodium levels at 144. WBC count 0.6 with a hemoglobin of 11.1 and a platelet count of 185. Afebrile for now. Meanwhile, the patient is having some ectopies. He did have a run of atrial fibrillation yesterday and currently is back in normal sinus rhythm and the patient is on oral amiodarone. Patient is also on metoprolol 25 mg p.o. Anticoagulation with Eliquis. 10/19/2023, the patient is being seen for a follow-up. Remains intubated on mechanical ventilator. Chest x-ray still showing diffuse bilateral pulm infiltrates. Stable compared to yesterday. No significant interval improvement in chest x-ray findings. Right ear this morning, the patient developed A-fib RVR. He will be given another bolus of amiodarone 150 mg. He is on oral amiodarone 200 mg p.o. twice a day and metoprolol 25 mg 3 times daily. Rate is under better control for now. Remains on propofol at 75 mcg/kg/min and fentanyl at 2 mcg/kg/h. He is currently off Nimbex. He is on assist-control mode with rate of 28, tidal volume of 350, 150% with a PEEP of 6. pH is at 7.44 with a pCO2 of 52 and pO2 of 84. Fluid balance -3.3 L over the past 24 hours. White cell count is at 10.9 with a hemoglobin 11.8 and platelet count of 223. Sodium is at 148, potassium 3.8, bicarb is at 35, BUN is 51 with a creatinine of 0.8. The patient is on vital high-protein for enteral feeding and nutritional support at the rate of 51 cc an hour. The patient will need a laxative for bowel movement activity. Remains on Zosyn and vancomycin. All of the cultures have been negative. 01/20/2024, patient is being seen for a follow-up. The patient remains intubated on mechanical ventilator. He is off Nimbex. Paralytics have been discontinued for the past 48 hours and the patient is on propofol and fentanyl. Propofol is at 60 mcg/kg/min and fentanyl is at 1 mcg/kg/h. Upon receiving a sedation holiday, the patient is arousable. Nevertheless, not absolutely ready to be weaned off the mechanical ventilator. There is interval improvement in aeration on today's chest x-ray. He remains on assist-control mode of mechanical ventilation at rate of 28, tidal volume of 350, FiO2 50% with a PEEP of 6. Blood gas shows a pH of 7.51 with a pCO2 of 48 and pO2 of 86. Fluid balance is -3.1 L over the past 24 hours and the patient was being diuresed with IV Lasix. The patient is also on vital high-protein at rate of 51 cc an hour. Hemodynamically stable. Afebrile. Remains on broad-spectrum antibiotics. Cultures are negative. Remains on IV Solu-Medrol. Cardiac rhythm has remained sinus over the past 24 hours. Remains on amiodarone. Remains on 200 mg amiodarone twice a day and metoprolol 25 mg 3 times daily. Remains on anticoagulation with Eliquis. 10/21/2023, the patient is on propofol at 55 mcg and fentanyl 1 mcg. Remains on a mechanical ventilator, intubated and the chest x-ray shows improvement in the aeration in both lungs. There is some residual right lower lobe pulm infiltrat e. Lines on the place. The patient remains on the mechanical ventilator assist-control mode with rate of 18, tidal volume of 350, FiO2 of 40% with a PEEP of 6. Based on morning blood gas, the patient has a pH of 7.48 with a pCO2 of 45 and pO2 of 72. Started weaning the propofol and fentanyl. Sedation holiday was given and the patient seem to be appropriate. Subsequently parameters were adequate. The patient was given a post spontaneous breathing trial with a pressure support of 5 and a PEEP of 5. Blood gas showed a pH of 7.5 with a pCO2 of 43 and pO2 of 96. The patient was accordingly extubated. The rest of the labs show a WBC count of 11, hemoglobin 10.7 and a platelet count of 190. BUN 41 with a creatinine of 0.7 and sodium levels of 146. Fluid balance is -520 cc over the past 24 hours and IV Lasix has been discontinued. The patient was also receiving enteral feeding and the patient was on vital AF at the rate of 51 cc an hour. Procalcitonin level has dropped down to 0.17. The patient is having episodes of fever. Noted all of the cultures were negative from previous evaluations. He has a triple-lumen catheter in his left IJ. His cardiac rhythm is sinus. Remains on amiodarone and metoprolol and remains on anticoagulation with Eliquis. 10/22/2023, the patient is extubated on 4 L of oxygen by nasal cannula. Sitting up in a chair. Denies having any significant respiratory distress. Chest x-ray continues to show ongoing improvement with some residual pulmonary filtrates in lung base bilaterally more so on the right. Remains on IV Zosyn. Cardiac rhythm is sinus. Awake and alert and communicating. Neuro generalized global weakness in all 4 extremities. Mental status. The sodium is at 141, BUN 36 with a creatinine of 0.66. WBC count is 11.2 with a hemoglobin 10.8. Blood sugar is slightly elevated and the patient remains on insulin sliding scale insulin coverage. The patient remains on metoprolol 25 mg p.o. 3 times daily and amiodarone 100 mg p.o. twice daily and he is also on anticoagulation with Eliquis. All of the cultures were negative. Vancomycin has been discontinued. Steroids are to be tapered. Patient was received today on 10/23/2023, patient remains in the ICU, he is on 3 L nasal cannula, patient was extubated uneventfully on 10/21/2023, he also underwent bronchoscopy on 10/15/2023. 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 Extremely weak apparently he did receive Nimbex early when he was intubated for a few days. Patient is also having diarrhea, and we are checking C. difficile screening on this patient. Patient finished a full course of Zosyn and vancomycin. X-ray is showing patchy interstitial changes and focal opacity remains at the right lung base, with slight improvement compared to previous x-rays. WBC count is 9.9 hemoglobin 11.1 basic metabolic profile is normal renal profile is normal, patient seems to be relatively asymptomatic except for his profound weakness involving his upper and lower extremities. He definitely needs physical therapy as it may take a long time to recover. Objective - Vital Signs Vital signs: Vital Signs Temp 97.6 F 10/23/23 08:00 Pulse 65 10/23/23 12:00 Resp 26 H 10/23/23 12:00 BP 121/77 10/23/23 12:00 Pulse Ox 98 10/23/23 12:00 FiO2 40 10/21/23 09:30 Intake & Output 10/22/23 10/23/23 10/23/23 18:59 06:59 18:59 Intake Total 516 560 428 Output Total 680 540 370 Balance -164 20 58 Weight 79.5 kg Intake: IV 396 320 210 0.9 36 30 Invasive Line 3 30 Invasive Line 5 10 Piperacillin-Tazobactam 3 100 50 50 .375 gm In Sodium Chloride 0.9% 100 ml @ 25 mls/hr IVPB Q8H RAGHU Rx#: [id number] Potassium Chloride 10 meq 240 240 20 In Water For Injection 1 100ml.bag @ 100 mls/hr IVPB Q1H [facility] Rx#: [id number] Potassium Chloride 20 meq 100 In Water For Injection 1 100ml.bag @ 50 mls/hr IVPB Q2H [facility] Rx#: [id number] Sodium Chloride 0.9% 1, 20 000 ml @ 20 mls/hr IV . Q24H RAGHU Rx#:[id number] Oral 120 240 218 Output: Urine 680 540 370 Other: Voiding Method Indwelling Catheter Indwelling Catheter Indwelling Catheter # Bowel Movements 50 ABP, PAP, CO, CI - Last Documented Arterial Blood Pressure 138/66 - Exam Physical exam: General: Revealed a 63-year-old white male, calm, in no distress, on 3 L nasal cannula, O2 saturation is 98% Head: Atraumatic, normocephalic. HEENT: PERRLA, EOMI, nonicteric, no neck masses. Neck supple. Full range of motion. No masses, no JVD. Cardiovascular send S1-S2, no S3 gallop, no murmur. Lungs: Diminished breath sounds at the bases some wheezing on forced expiratory maneuver only noted. Abdominal exam: Soft nontender no megaly no rebound no guarding Extremities are intact. No cyanosis clubbing or edema. Skin is without rash or lesion. Neurologic examination alert oriented x 3 but seems to be generally weak, both upper and lower extremities are extremely weak, patient cannot raise his legs against gravity and cannot raise his arms. - Labs CBC & Chem 7: 10/23/23 04:00 10/23/23 11:15 Labs: Abnormal Lab Results - Last 24 Hours (Table) 10/22/23 10/22/23 10/23/23 Range/Units 17:54 22:41 04:00 RBC 3.92 L (4.30-5.90) m/uL Hgb 11.1 L (13.0-17.5) gm/dL Hct 33.9 L (39.0-53.0) % Neutrophils # 8.2 H (1.3-7.7) k/uL Chloride (98-107) mmol/L BUN (9-20) mg/dL Creatinine (0.66-1.25) mg/dL Glucose (74-99) mg/dL POC Glucose (mg/dL) 270 H 172 H (70-110) mg/dL Calcium (8.4-10.2) mg/dL 10/23/23 10/23/23 10/23/23 Range/Units 04:00 06:26 11:21 RBC (4.30-5.90) m/uL Hgb (13.0-17.5) gm/dL Hct (39.0-53.0) % Neutrophils # (1.3-7.7) k/uL Chloride 108 H (98-107) mmol/L BUN 30 H (9-20) mg/dL Creatinine 0.63 L (0.66-1.25) mg/dL Glucose 114 H (74-99) mg/dL POC Glucose (mg/dL) 116 H 122 H (70-110) mg/dL Calcium 7.8 L (8.4-10.2) mg/dL Microbiology - Last 24 Hours (Table) 10/21/23 14:28 Blood Culture - Preliminary Blood 10/21/23 14:29 Blood Culture - Preliminary Blood Assessment and Plan Assessment: Impression: Acute hypoxic and hypercapnic respiratory failure requiring mechanical ventilation, patient was intubated on 10/14 and extubated on 10/20. Acute exacerbation of chronic COPD, and suspect underlying pneumonia, community- acquired or could be aspiration related. Hypotension, likely septic in nature and the patient is currently off pressors Paroxysmal A-fib, presently on oral amiodarone. And on Toprol-XL Previous history of pseudomonal growth in the sputum rule out pseudomonal tracheal bronchitis/pneumonia. Chronic and ongoing tobacco dependence of nearly 50 years History of alcoholism Marijuana use History of depression Critical illness probably neuromyopathy Recommendation: Continue oxygen at 4 L/min and titrate accordingly Physical therapy to address his critical illness polyneuropathy Consider placement in a rehab facility/ECF Continue antibiotics/IV Zosyn and his vancomycin was discontinued Continue bronchodilators Advance diet as tolerated Continue oral prednisone however cut down the dose. Will continue to follow. Continue GI DVT prophylaxis Will definitely need placement. guest services attendant to evaluate Time with Patient: Less than 30
[2023-10-23] MEDS: ACETAMINOPHEN TAB 325 MG TAB PO PRN (13:05)
--- NOTE | 2023-10-23 13:26 | P.PN ---
Subjective Progress Note Date: 10/23/23 63-year-old male with a past medical history of COPD on home oxygen, hypertension, chronic back pain, history of cervical fusion surgery, depression currently everyday smoker and marijuana use. Patient presents to ER with complaints of worsening shortness of breath anxiety, chills and fever. Patient was tachycardic and tachypneic on admission. States that he has subjective fevers. Cough and congestion and unable to bring out any sputum. No complaints of chest pain. No nausea vomiting abdominal pain or diarrhea. No headache or dizziness or neck stiffness. Chest x-ray showed perihilar infiltrates in the deflector lobar pneumonia. Correlate clinically and appropriate studies are recommended. EKG showed atrial fibrillation with rapid ventricular response. Patient had a cardiac catheterization on 09/14/2023 showed relatively normal coronaries and normal left sided filling pressures. Laboratory test showed WBC 23.7 hemoglobin 14.2 and platelets 265 Sodium 141 potassium 3.8 chloride 104 bicarb is 22 BUN 16 and creatinine 0.94 and blood sugar 89 and lactic acid 4.7 and magnesium 1.5 Gering Elevated procalcitonin level 2.4. Troponin x 1 negative proBNP 262 10/20/2023 Patient is seen and evaluated in room in ICU; patient remains intubated on mechanical ventilator. Paralytics have been discontinued for the past 48 hours and the patient is on propofol and fentanyl. -- Upon receiving a sedation holiday, the patient is arousable. There is interval improvement in aeration on today's chest x-ray. He remains on assist- control mode of mechanical ventilation at rate of 28, tidal volume of 350, FiO2 50% with a PEEP of 6. Blood gas shows a pH of 7.51 with a pCO2 of 48 and pO2 of 86. Fluid balance is -3.1 L over the past 24 hours and the patient was being di uresed with IV Lasix. The patient is also on vital high-protein at rate of 51 cc an hour. Hemodynamically stable. Afebrile. Remains on broad-spectrum antibiotics. Cultures are negative. Remains on IV Solu-Medrol. Cardiac rhythm has remained sinus over the past 24 hours. Remains on amiodarone. Remains on 200 mg amiodarone twice a day and metoprolol 25 mg 3 times daily. Remains on anticoagulation with Eliquis 10/21. Patient seen and examined. Dr. Lewis took over care. Lab work done this morning showed WBC 9.2, hemoglobin 10.8, platelet count 174, sodium 141, potassium 3.8, BUN 30, creatinine 0.66. Sitting upright in the chair. Currently on 4 L of oxygen. 10/22. Patient seen and examined. Patient told continues to be very weak. Currently on 3 L of oxygen. Patient heart rate on the lower side, dose of metoprolol decreased to 25 mg twice daily REVIEW OF SYSTEMS: CONSTITUTIONAL: No fever, no malaise,. CARDIOVASCULAR: No chest pain, no palpitations, no syncope. PULMONARY: Denies chest pain GASTROINTESTINAL: No diarrhea, no nausea, no vomiting, no abdominal pain. NEUROLOGICAL: No headaches, no weakness, PHYSICAL EXAMINATION: GENERAL: The patient is alert and oriented x3, chronically ill looking HEENT: Pupils are round and equally reacting to light. EOMI. No scleral icterus. No conjunctival pallor. Normocephalic, atraumatic. No pharyngeal erythema. No thyromegaly. CARDIOVASCULAR: S1 and S2 present. No murmurs, rubs, or gallops. PULMONARY: Coarse breath sound bilaterally, no wheezing or crackles. ABDOMEN: Soft, nontender, nondistended, normoactive bowel sounds. No palpable organomegaly. MUSCULOSKELETAL: No joint swelling or deformity. EXTREMITIES: No cyanosis, clubbing, 1+ pitting edema lower extremities NEUROLOGICAL: Gross neurological examination did not reveal any focal deficits. SKIN: No rashes. Assessment and plan Acute on chronic hypoxemic respiratory failure secondary to COPD and pneumonia. Patient was on 100% nonrebreather currently requiring mechanical ventilator. Acute COPD exacerbation Bilateral pneumonia Sepsis secondary to pneumonia New onset A-fib with RVR as per EKG on admission Ongoing nicotine addiction GERD Hypertension Prior history of pneumonia Depression Marijuana use COPD on home oxygen as needed DVT prophylaxis with heparin subcu Plan: Monitor vital signs monitor CBC Monitor CMP Patient is status post bronchoscopy on 10/15/2023 Follow-up blood cultures and sputum cultures and BAL cultures. Completed course of antibiotics Continue DuoNebs and oxygen supplementation. IV steroids switch to oral prednisone Continue Eliquis, metoprolol and amiodarone. Cardiology and pulmonary is on board. Labs and medication were reviewed.. Continue same treatment. Continue with symptomatic treatment. Resume home medication. Monitor labs and vitals. DVT and GI prophylaxis. Further recommendations as per clinical course of the patient Dictation was produced using [employer] dictation software. please excuse any gram matical, word or spelling errors. Objective - Vital Signs Vital signs: Vital Signs Temp 97.6 F 10/23/23 08:00 Pulse 65 10/23/23 12:00 Resp 26 H 10/23/23 12:00 BP 121/77 10/23/23 12:00 Pulse Ox 98 10/23/23 12:00 FiO2 40 10/21/23 09:30 Intake & Output 10/22/23 10/23/23 10/23/23 18:59 06:59 18:59 Intake Total 516 560 428 Output Total 680 540 370 Balance -164 20 58 Weight 79.5 kg Intake: IV 396 320 210 0.9 36 30 Invasive Line 3 30 Invasive Line 5 10 Piperacillin-Tazobactam 3 100 50 50 .375 gm In Sodium Chloride 0.9% 100 ml @ 25 mls/hr IVPB Q8H [facility] Rx#: [id number] Potassium Chloride 10 meq 240 240 20 In Water For Injection 1 100ml.bag @ 100 mls/hr IVPB Q1H [facility] Rx#: [id number] Potassium Chloride 20 meq 100 In Water For Injection 1 100ml.bag @ 50 mls/hr IVPB Q2H [facility] Rx#: [id number] Sodium Chloride 0.9% 1, 20 000 ml @ 20 mls/hr IV . Q24H [facility] Rx#:[id number] Oral 120 240 218 Output: Urine 680 540 370 Other: Voiding Method Indwelling Catheter Indwelling Catheter Indwelling Catheter # Bowel Movements 50 ABP, PAP, CO, CI - Last Documented Arterial Blood Pressure 138/66 - Labs CBC & Chem 7: 10/23/23 04:00 10/23/23 11:15 Labs: Abnormal Lab Results - Last 24 Hours (Table) 10/22/23 10/22/23 10/23/23 Range/Units 17:54 22:41 04:00 RBC 3.92 L (4.30-5.90) m/uL Hgb 11.1 L (13.0-17.5) gm/dL Hct 33.9 L (39.0-53.0) % Neutrophils # 8.2 H (1.3-7.7) k/uL Chloride (98-107) mmol/L BUN (9-20) mg/dL Creatinine (0.66-1.25) mg/dL Glucose (74-99) mg/dL POC Glucose (mg/dL) 270 H 172 H (70-110) mg/dL Calcium (8.4-10.2) mg/dL 10/23/23 10/23/23 10/23/23 Range/Units 04:00 06:26 11:21 RBC (4.30-5.90) m/uL Hgb (13.0-17.5) gm/dL Hct (39.0-53.0) % Neutrophils # (1.3-7.7) k/uL Chloride 108 H (98-107) mmol/L BUN 30 H (9-20) mg/dL Creatinine 0.63 L (0.66-1.25) mg/dL Glucose 114 H (74-99) mg/dL POC Glucose (mg/dL) 116 H 122 H (70-110) mg/dL Calcium 7.8 L (8.4-10.2) mg/dL Microbiology - Last 24 Hours (Table) 10/21/23 14:28 Blood Culture - Preliminary Blood 10/21/23 14:29 Blood Culture - Preliminary Blood
[2023-10-23] MEDS: LOPERAMIDE 2 MG CAP PO STA (14:36)
[2023-10-23 16:32] LABS: Glucose,Whole Blood 262 mg/dL (70-110)
[2023-10-23] MEDS: INSULIN ASPART (NovoLOG) 100 UNIT/ML VIAL SQ SCH (17:11)
[2023-10-23] MEDS: LOPERAMIDE 2 MG CAP PO PRN (18:21)
[2023-10-23 20:11] LABS: Glucose,Whole Blood 155 mg/dL (70-110)
[2023-10-23 21:21] LABS: Glucose,Whole Blood 133 mg/dL (70-110)
[2023-10-23] MEDS: BACLOFEN 10 MG TAB PO SCH (21:28)
[2023-10-23] MEDS: METOPROLOL TARTRATE 25 MG TAB PO SCH (22:00)
[2023-10-24 06:04] LABS: Glucose,Whole Blood 89 mg/dL (70-110)
--- NOTE | 2023-10-24 09:18 | P.PN ---
Subjective Progress Note Date: 10/24/23 The patient is a 63-year-old male who is currently admitted to the hospital with acute hypoxic respiratory failure secondary to pneumonia. Cardiology has been consulted for atrial fibrillation, where he converted back to sinus mechanism with amiodarone. He has been transition to oral antiarrhythmic therapy. Patient was interviewed and examined resting in the recliner chair. He continues to have severe weakness and limited mobility. He denies any current shortness of breath or difficulty breathing. He denies any chest discomfort. GENERAL: Ill-appearing, well-nourished and in no acute distress. Mildly diaphoretic. NECK: Supple without JVD or thyromegaly. LUNGS: Breath sounds diminished to auscultation bilaterally. Respiration equal and unlabored. Crackles noted in the right lower lobe. HEART: Regular rate and rhythm without murmurs, rubs or gallops. S1 and S2 heard. EXTREMITIES: Normal range of motion, no edema. No clubbing or cyanosis. Peripheral pulses intact and strong. TELEMETRY: Sinus bradycardia overnight. Low heart rates in the 40s IMPRESSION: Paroxysmal atrial fibrillation Acute hypoxic respiratory failure, secondary to pneumonia History of COPD History of smoking PLAN: Continue current medication regimen Patient to be discharged on amiodarone 200 mg daily Continue aggressive pulmonary hygiene No further recommendations from the cardiac standpoint I am dictating on behalf of Dr Joao Chen's history/physical and assessment/plan. Objective - Vital Signs Vital signs: Vital Signs Temp 97.5 F L 10/24/23 08:00 Pulse 67 10/24/23 08:26 Resp 12 10/24/23 08:26 BP 92/65 10/24/23 08:00 Pulse Ox 95 10/24/23 08:05 FiO2 40 10/21/23 09:30 Intake & Output 10/23/23 10/24/23 10/24/23 18:59 06:59 18:59 Intake Total 688 240 Output Total 370 375 150 Balance 318 -375 90 Weight 79.5 kg 80.6 kg Intake: IV 240 Invasive Line 3 60 Invasive Line 5 10 Piperacillin-Tazobactam 3 50 .375 gm In Sodium Chloride 0.9% 100 ml @ 25 mls/hr IVPB Q8H [facility] Rx#: [id number] Potassium Chloride 10 meq 20 In Water For Injection 1 100ml.bag @ 100 mls/hr IVPB Q1H [facility] Rx#: [id number] Potassium Chloride 20 meq 100 In Water For Injection 1 100ml.bag @ 50 mls/hr IVPB Q2H [facility] Rx#: [id number] Oral 448 240 Output: Urine 370 375 150 Other: Voiding Method Indwelling Catheter Indwelling Catheter Indwelling Catheter # Bowel Movements 50 ABP, PAP, CO, CI - Last Documented Arterial Blood Pressure 138/66 - Labs CBC & Chem 7: 10/23/23 04:00 10/23/23 11:15 Labs: Abnormal Lab Results - Last 24 Hours (Table) 10/23/23 10/23/23 10/23/23 Range/Units 11:21 16:30 20:09 POC Glucose (mg/dL) 122 H 262 H 155 H (70-110) mg/dL 10/23/23 Range/Units 21:19 POC Glucose (mg/dL) 133 H (70-110) mg/dL Microbiology - Last 24 Hours (Table) 10/21/23 14:28 Blood Culture - Preliminary Blood 10/21/23 14:29 Blood Culture - Preliminary Blood
[2023-10-24 11:29] LABS: Glucose,Whole Blood 111 mg/dL (70-110)
--- NOTE | 2023-10-24 13:30 | P.PN ---
Subjective Progress Note Date: 10/24/23 63-year-old male with a past medical history of COPD on home oxygen, hypertension, chronic back pain, history of cervical fusion surgery, depression currently everyday smoker and marijuana use. Patient presents to ER with complaints of worsening shortness of breath anxiety, chills and fever. Patient was tachycardic and tachypneic on admission. States that he has subjective fevers. Cough and congestion and unable to bring out any sputum. No complaints of chest pain. No nausea vomiting abdominal pain or diarrhea. No headache or dizziness or neck stiffness. Chest x-ray showed perihilar infiltrates in the deflector lobar pneumonia. Correlate clinically and appropriate studies are recommended. EKG showed atrial fibrillation with rapid ventricular response. Patient had a cardiac catheterization on 09/14/2023 showed relatively normal coronaries and normal left sided filling pressures. Laboratory test showed WBC 23.7 hemoglobin 14.2 and platelets 265 Sodium 141 potassium 3.8 chloride 104 bicarb is 22 BUN 16 and creatinine 0.94 and blood sugar 89 and lactic acid 4.7 and magnesium 1.5 [place] Elevated procalcitonin level 2.4. Troponin x 1 negative proBNP 262 10/20/2023 Patient is seen and evaluated in room in ICU; patient remains intubated on mechanical ventilator. Paralytics have been discontinued for the past 48 hours and the patient is on propofol and fentanyl. -- Upon receiving a sedation holiday, the patient is arousable. There is interval improvement in aeration on today's chest x-ray. He remains on assist- control mode of mechanical ventilation at rate of 28, tidal volume of 350, FiO2 50% with a PEEP of 6. Blood gas shows a pH of 7.51 with a pCO2 of 48 and pO2 of 86. Fluid balance is -3.1 L over the past 24 hours and the patient was being di uresed with IV Lasix. The patient is also on vital high-protein at rate of 51 cc an hour. Hemodynamically stable. Afebrile. Remains on broad-spectrum antibiotics. Cultures are negative. Remains on IV Solu-Medrol. Cardiac rhythm has remained sinus over the past 24 hours. Remains on amiodarone. Remains on 200 mg amiodarone twice a day and metoprolol 25 mg 3 times daily. Remains on anticoagulation with Eliquis 10/21. Patient seen and examined. Dr. Lewis took over care. Lab work done this morning showed WBC 9.2, hemoglobin 10.8, platelet count 174, sodium 141, potassium 3.8, BUN 30, creatinine 0.66. Sitting upright in the chair. Currently on 4 L of oxygen. 10/22. Patient seen and examined. Patient told continues to be very weak. Currently on 3 L of oxygen. Patient heart rate on the lower side, dose of metoprolol decreased to 25 mg twice daily 10/23. Patient seen and examined. Sitting upright in the chair. States he feels better. PT and OT recommend IPR which have been consulted REVIEW OF SYSTEMS: CONSTITUTIONAL: No fever, no malaise,. CARDIOVASCULAR: No chest pain, no palpitations, no syncope. PULMONARY: Denies chest pain GASTROINTESTINAL: No diarrhea, no nausea, no vomiting, no abdominal pain. NEUROLOGICAL: No headaches, no weakness, PHYSICAL EXAMINATION: GENERAL: The patient is alert and oriented x3, chronically ill looking HEENT: Pupils are round and equally reacting to light. EOMI. No scleral icterus. No conjunctival pallor. Normocephalic, atraumatic. No pharyngeal erythema. No thyromegaly. CARDIOVASCULAR: S1 and S2 present. No murmurs, rubs, or gallops. PULMONARY: Coarse breath sound bilaterally, no wheezing or crackles. ABDOMEN: Soft, nontender, nondistended, normoactive bowel sounds. No palpable organomegaly. MUSCULOSKELETAL: No joint swelling or deformity. EXTREMITIES: No cyanosis, clubbing, 1+ pitting edema lower extremities NEUROLOGICAL: Gross neurological examination did not reveal any focal deficits. SKIN: No rashes. Assessment and plan Acute on chronic hypoxemic respiratory failure secondary to COPD and pneumonia. Patient was on 100% nonrebreather currently requiring mechanical ventilator. Acute COPD exacerbation Bilateral pneumonia Sepsis secondary to pneumonia New onset A-fib with RVR as per EKG on admission Ongoing nicotine addiction GERD Hypertension Prior history of pneumonia Depression Marijuana use COPD on home oxygen as needed DVT prophylaxis with heparin subcu Plan: Monitor vital signs monitor CBC Monitor CMP Patient is status post bronchoscopy on 10/15/2023 Follow-up blood cultures and sputum cultures and BAL cultures. Completed course of antibiotics Continue DuoNebs and oxygen supplementation. Continue prednisone Continue Eliquis, metoprolol and amiodarone. Cardiology and pulmonary is on board. Physical medicine rehab consulted Labs and medication were reviewed.. Continue same treatment. Continue with symptomatic treatment. Resume home medication. Monitor labs and vitals. DVT and GI prophylaxis. Further recommendations as per clinical course of the patient Dictation was produced using [employer] dictation software. please excuse any grammatical, word or spelling errors. Objective - Vital Signs Vital signs: Vital Signs Temp 97.6 F 10/24/23 12:00 Pulse 70 10/24/23 12:53 Resp 18 10/24/23 12:53 BP 86/62 10/24/23 12:00 Pulse Ox 97 10/24/23 12:00 FiO2 40 10/21/23 09:30 Intake & Output 10/23/23 10/24/23 10/24/23 18:59 06:59 18:59 Intake Total 688 240 Output Total 370 375 150 Balance 318 -375 90 Weight 79.5 kg 80.6 kg Intake: IV 240 Invasive Line 3 60 Invasive Line 5 10 Piperacillin-Tazobactam 3 50 .375 gm In Sodium Chloride 0.9% 100 ml @ 25 mls/hr IVPB Q8H [facility] Rx#: [id number] Potassium Chloride 10 meq 20 In Water For Injection 1 100ml.bag @ 100 mls/hr IVPB Q1H [facility] Rx#: [id number] Potassium Chloride 20 meq 100 In Water For Injection 1 100ml.bag @ 50 mls/hr IVPB Q2H [facility] Rx#: [id number] Oral 448 240 Output: Urine 370 375 150 Other: Voiding Method Indwelling Catheter Indwelling Catheter Indwelling Catheter # Bowel Movements 50 ABP, PAP, CO, CI - Last Documented Arterial Blood Pressure 138/66 - Labs CBC & Chem 7: 10/23/23 04:00 10/23/23 11:15 Labs: Abnormal Lab Results - Last 24 Hours (Table) 10/23/23 10/23/23 10/23/23 Range/Units 16:30 20:09 21:19 POC Glucose (mg/dL) 262 H 155 H 133 H (70-110) mg/dL 10/24/23 Range/Units 11:28 POC Glucose (mg/dL) 111 H (70-110) mg/dL Microbiology - Last 24 Hours (Table) 10/21/23 14:28 Blood Culture - Preliminary Blood 10/21/23 14:29 Blood Culture - Preliminary Blood
--- NOTE | 2023-10-24 13:36 | P.PN ---
Subjective Progress Note Date: 10/24/23 Principal diagnosis: Acute hypoxic and hypercapnic respiratory failure secondary to acute exacerbation of COPD and bilateral pneumonia. On 10/15/2023, patient is being seen for a follow-up. The patient remains intubated on the mechanical ventilator with diffuse bilateral pulmonary filtrates, likely presenting bilateral pneumonia. This morning, the patient is on propofol at 75 mcg/kg/min and the patient is also on fentanyl at 1.5 mcg/kg/h. The patient is on assist-control mechanical ventilation at rate of 28, tidal volume of 400, FiO2 of 50% with a PEEP of 8. Peak airway pressures 32. The static airway pressure is 29. Blood gas shows a pH of 7.18 with a pCO2 of 62 and pO2 of 160. Hemodynamically, the patient remains hypotensive and currently is on norepinephrine at low-dose running at 0.04 mcg/kg/min and the patient is also on normal saline at rate of 75 cc an hour. The white cell count is at 15.3 with a hemoglobin 10.9 and a platelet count of 208. BUN is at 26 with a creatinine of 0.8 and sodium levels at 141 with a potassium level of 4.8 with a serum bicarb of 24. The chloride is at 115. The patient was receiving IV Rocephin. Cardiac rhythm is sinus. Remains on bronchodilators. Remains on steroids. Echocardiogram completed this morning a preserved LV function with an EF of around 55 to 60% without any significant valvular abnormalities. Right ventricular systolic pressure estimated to be around 38. Chest x-ray showing diffuse bilateral pulmonary infiltrates. Cultures are negative thus far. 10/16/2023, the patient is being seen for a follow-up. The patient remains sedated on propofol which is running at 75 mcg/kg/min and the patient is currently on fentanyl at 1.5 mcg/kg/h. The patient was taken off the Nimbex yesterday. Remains intubated on the mechanical ventilator. Remains on assist- control mode with rate of 20, tidal volume of 400, FiO2 of 50% with a PEEP of 8, and the patient blood gas showed pH 7.30 with a pCO2 of 47 and pO2 of 116. The bronchoscopy was done yesterday and the results of bronchial lavage are still pending. Chest x-ray showing diffuse bilateral pulm infiltrates, unchanged compared to yesterday. ET tube is in a good location. Echocardiogram was done yesterday and the patient was found to have a preserved LV function without any significant valvular abnormalities. Right ventricular systolic pressure was estimated to be at 35. No evidence of any pericardial effusion. The patient remains on Zosyn and vancomycin. Cultures are still pending for now. The patient is afebrile. The patient remains off pressors. Norepinephrine was weaned off and discontinued without any major difficulties and the patient is maintaining his own blood pressure. The patient however is on amiodarone drip at 0.5 mg/min regarding atrial fibrillation and his rate is controlled and converted into normal sinus rhythm. He remains on normal citrate of 75 cc an hour. He is on enteral feeding for nutritional support with vital high-protein at a rate of 30 cc an hour. Fluid balance is +3.1 L over the past 24 hours. On today's evaluation of 10/17/2023, seen the patient for a follow-up. Remains intubated on mechanical ventilator. This morning, the patient is on propofol running at 75 mcg/kg/min and fentanyl at 2 mcg/kg/h. The patient is also on Nimbex for paralysis as the patient was quite asynchronous with mechanical ventilator and the patient was peak pressuring yesterday Nimbex is running at 2 mcg/kg/min. The patient is currently on assist-control mode of mechanical ventilation at rate of 28, tidal volume of 350, FiO2 of 50% and PEEP of 6. The blood gas from today shows a pH of 7.24 with a pCO2 of 55 and a pO2 of 108. Chest x-ray from today shows diffuse bilateral pulmonary filtrates with some limited improvement in patient compared to yesterday. Bronchoscopy and bronchial lavage was done and the microbial culture is still pending is negative thus far and the patient remains on a combination of Zosyn and vancomycin. The vancomycin trough level was at 21. BUN is at 30 with a creatinine of 0.8 and sodium level at 144. WBC count is 8.3 with a hemoglobin 10.5 and a platelet cou nt of 201. The patient remains on vital high-protein at 30 to 45 cc an hour. Fluid balance is +3.6 L over the past 24 hours. Meanwhile, the patient had an episode of atrial fibrillation yesterday with rapid ventricular response. The patient was loaded with amiodarone and currently is back in normal sinus rhythm. Amiodarone is running at 200 mg p.o. twice a day. The patient is also on anticoagulation with Eliquis 5 mg p.o. twice a day. The patient on Toprol-XL 25 mg p.o. daily. IV Solu-Medrol was also added. On 10/18/2023, seen the patient for a follow-up. Patient remains intubated on the mechanical ventilator. On today's evaluation, the patient is on propofol at 75 mcg/kg/min and fentanyl at 2 mcg/kg/h. The patient is also paralyzed as the patient was peak pressuring yesterday. Nimbex is running at 3 mcg/kg/min. Remains on mechanical ventilator. Peak airway pressure is 30. Static airway pressure is 20. Patient is on assist-control mode at rate of 28, tidal volume of 350, fentanyl 50% with a PEEP of 6. pH is at 7.36 with a pCO2 of 54 and pO2 of 69. The chest x-ray shows increased right lower lobe pulmonary infiltration, some interval improvement in the aeration bilaterally. Orotracheal tube is in the mid location. Patient is on no pressors. The patient was started on Lasix 40 mg IV every 12 hours and the patient is negative fluid balance of 2.9 L over the past 24 hours. The patient is receiving enteral feeding for nutritional support. Antibiotic coverage is unchanged. Remains on Zosyn and vancomycin. Cultures are all negative. BUN is 43 with a creatinine of 0.8 and sodium levels at 144. WBC count 0.6 with a hemoglobin of 11.1 and a platelet count of 185. Afebrile for now. Meanwhile, the patient is having some ectopies. He did have a run of atrial fibrillation yesterday and currently is back in normal sinus rhythm and the patient is on oral amiodarone. Patient is also on metoprolol 25 mg p.o. Anticoagulation with Eliquis. 10/19/2023, the patient is being seen for a follow-up. Remains intubated on mechanical ventilator. Chest x-ray still showing diffuse bilateral pulm infiltrates. Stable compared to yesterday. No significant interval improvement in chest x-ray findings. Right ear this morning, the patient developed A-fib RVR. He will be given another bolus of amiodarone 150 mg. He is on oral amiodarone 200 mg p.o. twice a day and metoprolol 25 mg 3 times daily. Rate is under better control for now. Remains on propofol at 75 mcg/kg/min and fentanyl at 2 mcg/kg/h. He is currently off Nimbex. He is on assist-control mode with rate of 28, tidal volume of 350, 150% with a PEEP of 6. pH is at 7.44 with a pCO2 of 52 and pO2 of 84. Fluid balance -3.3 L over the past 24 hours. White cell count is at 10.9 with a hemoglobin 11.8 and platelet count of 223. Sodium is at 148, potassium 3.8, bicarb is at 35, BUN is 51 with a creatinine of 0.8. The patient is on vital high-protein for enteral feeding and nutritional support at the rate of 51 cc an hour. The patient will need a laxative for bowel movement activity. Remains on Zosyn and vancomycin. All of the cultures have been negative. 01/20/2024, patient is being seen for a follow-up. The patient remains intubated on mechanical ventilator. He is off Nimbex. Paralytics have been discontinued for the past 48 hours and the patient is on propofol and fentanyl. Propofol is at 60 mcg/kg/min and fentanyl is at 1 mcg/kg/h. Upon receiving a sedation holiday, the patient is arousable. Nevertheless, not absolutely ready to be weaned off the mechanical ventilator. There is interval improvement in aeration on today's chest x-ray. He remains on assist-control mode of mechanical ventilation at rate of 28, tidal volume of 350, FiO2 50% with a PEEP of 6. Blood gas shows a pH of 7.51 with a pCO2 of 48 and pO2 of 86. Fluid balance is -3.1 L over the past 24 hours and the patient was being diuresed with IV Lasix. The patient is also on vital high-protein at rate of 51 cc an hour. Hemodynamically stable. Afebrile. Remains on broad-spectrum antibiotics. Cultures are negative. Remains on IV Solu-Medrol. Cardiac rhythm has remained sinus over the past 24 hours. Remains on amiodarone. Remains on 200 mg amiodarone twice a day and metoprolol 25 mg 3 times daily. Remains on anticoagulation with Eliquis. 10/21/2023, the patient is on propofol at 55 mcg and fentanyl 1 mcg. Remains on a mechanical ventilator, intubated and the chest x-ray shows improvement in the aeration in both lungs. There is some residual right lower lobe pulm infiltrat e. Lines on the place. The patient remains on the mechanical ventilator assist-control mode with rate of 18, tidal volume of 350, FiO2 of 40% with a PEEP of 6. Based on morning blood gas, the patient has a pH of 7.48 with a pCO2 of 45 and pO2 of 72. Started weaning the propofol and fentanyl. Sedation holiday was given and the patient seem to be appropriate. Subsequently parameters were adequate. The patient was given a post spontaneous breathing trial with a pressure support of 5 and a PEEP of 5. Blood gas showed a pH of 7.5 with a pCO2 of 43 and pO2 of 96. The patient was accordingly extubated. The rest of the labs show a WBC count of 11, hemoglobin 10.7 and a platelet count of 190. BUN 41 with a creatinine of 0.7 and sodium levels of 146. Fluid balance is -520 cc over the past 24 hours and IV Lasix has been discontinued. The patient was also receiving enteral feeding and the patient was on vital AF at the rate of 51 cc an hour. Procalcitonin level has dropped down to 0.17. The patient is having episodes of fever. Noted all of the cultures were negative from previous evaluations. He has a triple-lumen catheter in his left IJ. His cardiac rhythm is sinus. Remains on amiodarone and metoprolol and remains on anticoagulation with Eliquis. 10/22/2023, the patient is extubated on 4 L of oxygen by nasal cannula. Sitting up in a chair. Denies having any significant respiratory distress. Chest x-ray continues to show ongoing improvement with some residual pulmonary filtrates in lung base bilaterally more so on the right. Remains on IV Zosyn. Cardiac rhythm is sinus. Awake and alert and communicating. Neuro generalized global weakness in all 4 extremities. Mental status. The sodium is at 141, BUN 36 with a creatinine of 0.66. WBC count is 11.2 with a hemoglobin 10.8. Blood sugar is slightly elevated and the patient remains on insulin sliding scale insulin coverage. The patient remains on metoprolol 25 mg p.o. 3 times daily and amiodarone 100 mg p.o. twice daily and he is also on anticoagulation with Eliquis. All of the cultures were negative. Vancomycin has been discontinued. Steroids are to be tapered. Patient was received today on 10/23/2023, patient remains in the ICU, he is on 3 L nasal cannula, patient was extubated uneventfully on 10/21/2023, he also underwent bronchoscopy on 10/15/2023. 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 Extremely weak apparently he did receive Nimbex early when he was intubated for a few days. Patient is also having diarrhea, and we are checking C. difficile screening on this patient. Patient finished a full course of Zosyn and vancomycin. X-ray is showing patchy interstitial changes and focal opacity remains at the right lung base, with slight improvement compared to previous x-rays. WBC count is 9.9 hemoglobin 11.1 basic metabolic profile is normal renal profile is normal, patient seems to be relatively asymptomatic except for his profound weakness involving his upper and lower extremities. He definitely needs physical therapy as it may take a long time to recover. Patient was reevaluated today on 10/24/2023, remains in the ICU on room air, not in any distress. Remains generally weak, and undergoing physical therapy. Patient is now off antibiotics, chest x-ray is showing significant improvement in his bilateral infiltrates/pneumonia. He is not requiring any pressors CBC is relatively normal WBC count is 9.9 hemoglobin 11.1 electrolytes are normal renal profile is normal C. difficile screen is negative. Overall the patient is doing much better however he remains to be very weak. Objective - Vital Signs Vital signs: Vital Signs Temp 97.6 F 10/24/23 12:00 Pulse 70 10/24/23 12:53 Resp 18 10/24/23 12:53 BP 86/62 10/24/23 12:00 Pulse Ox 97 10/24/23 12:00 FiO2 40 10/21/23 09:30 Intake & Output 10/23/23 10/24/23 10/24/23 18:59 06:59 18:59 Intake Total 688 240 Output Total 370 375 150 Balance 318 -375 90 Weight 79.5 kg 80.6 kg Intake: IV 240 Invasive Line 3 60 Invasive Line 5 10 Piperacillin-Tazobactam 3 50 .375 gm In Sodium Chloride 0.9% 100 ml @ 25 mls/hr IVPB Q8H [facility] Rx#: [id number] Potassium Chloride 10 meq 20 In Water For Injection 1 100ml.bag @ 100 mls/hr IVPB Q1H [facility] Rx#: [id number] Potassium Chloride 20 meq 100 In Water For Injection 1 100ml.bag @ 50 mls/hr IVPB Q2H [facility] Rx#: [id number] Oral 448 240 Output: Urine 370 375 150 Other: Voiding Method Indwelling Catheter Indwelling Catheter Indwelling Catheter # Bowel Movements 50 ABP, PAP, CO, CI - Last Documented Arterial Blood Pressure 138/66 - Exam Physical exam: General: Revealed a 63-year-old white male, calm, in no distress, on room air Head: Atraumatic, normocephalic. HEENT: PERRLA, EOMI, nonicteric, no neck masses. Neck supple. Full range of motion. No masses, no JVD. Cardiovascular send S1-S2, no S3 gallop, no murmur. Lungs: Diminished breath sounds at the bases, no crackles rhonchi or wheezes Abdominal exam: Soft nontender no megaly no rebound no guarding Extremities are intact. No cyanosis clubbing or edema. Skin is without rash or lesion. Neurologic examination alert oriented x 3 but seems to be generally weak, significant weakness noted in upper and lower extremities. - Labs CBC & Chem 7: 10/23/23 04:00 10/23/23 11:15 Labs: Abnormal Lab Results - Last 24 Hours (Table) 10/23/23 10/23/23 10/23/23 Range/Units 16:30 20:09 21:19 POC Glucose (mg/dL) 262 H 155 H 133 H (70-110) mg/dL 10/24/23 Range/Units 11:28 POC Glucose (mg/dL) 111 H (70-110) mg/dL Microbiology - Last 24 Hours (Table) 10/21/23 14:28 Blood Culture - Preliminary Blood 10/21/23 14:29 Blood Culture - Preliminary Blood Assessment and Plan Assessment: Impression: Acute hypoxic and hypercapnic respiratory failure requiring mechanical ventilation, patient was intubated on 10/14 and extubated on 10/20. Acute exacerbation of chronic COPD, and suspect underlying pneumonia, community- acquired or could be aspiration related. Hypotension, likely septic in nature and the patient is currently off pressors Paroxysmal A-fib, presently on oral amiodarone. And on Toprol-XL Previous history of pseudomonal growth in the sputum rule out pseudomonal tracheal bronchitis/pneumonia. Chronic and ongoing tobacco dependence of nearly 50 years History of alcoholism Marijuana use History of depression Critical illness probably neuromyopathy Recommendation: Continue present supportive care measures Physical therapy is on board for his critical illness polyneuropathy Will definitely need placement in rehab. Discontinue antibiotics Continue bronchodilators, decrease the dose of prednisone further Advance diet as tolerated Will continue to follow. Continue GI DVT prophylaxis Time with Patient: Less than 30
[2023-10-24 16:29] LABS: Glucose,Whole Blood 185 mg/dL (70-110)
[2023-10-24 20:00] LABS: Glucose,Whole Blood 129 mg/dL (70-110)
[2023-10-24] MEDS: ZOLPIDEM 5 MG TAB PO PRN (23:46)
[2023-10-25 07:00] LABS: Glucose,Whole Blood 81 mg/dL (70-110)
--- NOTE | 2023-10-25 07:02 | P.CONS ---
History of Present Illness - Reason for Consult Consult date: 10/24/23 Rehab Needs - Chief Complaint Weakness - History of Present Illness PMR Consult (late entry - patient seen 10/24/23 afternoon) Mr. Willis is a 63 yo , right handed gentleman who lives with his ex- in an apartment with no steps to enter. He was independent with mobility and ADLs [employer]. He has one daughter who can help. History per medical record: He has past medical history of COPD on home oxygen, hypertension, chronic back pain, history of cervical fusion surgery, depression currently everyday smoker and marijuana use. Patient presented to ER with complaints of worsening shortness of breath anxiety, chills and fever. Patient was tachycardic and tachypneic on admission. Chest x-ray showed perihilar infiltrates in the deflector lobar pneumonia. EKG showed atrial fibrillation with rapid ventricular response. Patient had a cardiac catheterization on 09/14/2023 showed relatively normal coronaries and normal left sided filling pressures. Laboratory test showed WBC 23.7 hemoglobin 14.2 and platelets 265 Sodium 141 potassium 3.8 chloride 104 bicarb is 22 BUN 16 and creatinine 0.94 and blood sugar 89 and lactic acid 4.7 and magnesium 1.5 [place] Elevated procalcitonin level 2.4. Troponin x 1 negative proBNP 262 On 10/15/2023, patient is being seen for a follow-up. The patient remains intubated on the mechanical ventilator with diffuse bilateral pulmonary filtrates, likely presenting bilateral pneumonia. This morning, the patient is on propofol at 75 mcg/kg/min and the patient is also on fentanyl at 1.5 mcg/kg/h. The patient is on assist-control mechanical ventilation at rate of 28, tidal volume of 400, FiO2 of 50% with a PEEP of 8. Peak airway pressures 32. The static airway pressure is 29. Blood gas shows a pH of 7.18 with a pCO2 of 62 and pO2 of 160. Hemodynamically, the patient remains hypotensive and currently is on norepinephrine at low-dose running at 0.04 mcg/kg/min and the patient is also on normal saline at rate of 75 cc an hour. The white cell count is at 15.3 with a hemoglobin 10.9 and a platelet count of 208. BUN is at 26 with a creatinine of 0.8 and sodium levels at 141 with a potassium level of 4.8 with a serum bicarb of 24. The chloride is at 115. The patient was receiving IV Rocephin. Cardiac rhythm is sinus. Remains on bronchodilators. Remains on steroids. Echocardiogram completed this morning a preserved LV function with an EF of around 55 to 60% without any significant valvular abnormalities. Right ventricular systolic pressure estimated to be around 38. Chest x-ray showing diffuse bilateral pulmonary infiltrates. Cultures are negative thus far. 10/16/2023, the patient is being seen for a follow-up. The patient remains sedated on propofol which is running at 75 mcg/kg/min and the patient is currently on fentanyl at 1.5 mcg/kg/h. The patient was taken off the Nimbex yesterday. Remains intubated on the mechanical ventilator. Remains on assist- control mode with rate of 20, tidal volume of 400, FiO2 of 50% with a PEEP of 8, and the patient blood gas showed pH 7.30 with a pCO2 of 47 and pO2 of 116. The bronchoscopy was done yesterday and the results of bronchial lavage are still pending. Chest x-ray showing diffuse bilateral pulm infiltrates, unchanged compared to yesterday. ET tube is in a good location. Echocardiogram was done yesterday and the patient was found to have a preserved LV function without any significant valvular abnormalities. Right ventricular systolic pressure was estimated to be at 35. No evidence of any pericardial effusion. The patient remains on Zosyn and vancomycin. Cultures are still pending for now. The patient is afebrile. The patient remains off pressors. Norepinephrine was weaned off and discontinued without any major difficulties and the patient is maintaining his own blood pressure. The patient however is on amiodarone drip at 0.5 mg/min regarding atrial fibrillation and his rate is controlled and converted into normal sinus rhythm. He remains on normal citrate of 75 cc an hour. He is on enteral feeding for nutritional support with vital high-protein at a rate of 30 cc an hour. Fluid balance is +3.1 L over the past 24 hours. On today's evaluation of 10/17/2023, seen the patient for a follow-up. Remains intubated on mechanical ventilator. This morning, the patient is on propofol running at 75 mcg/kg/min and fentanyl at 2 mcg/kg/h. The patient is also on Nimbex for paralysis as the patient was quite asynchronous with mechanical ventilator and the patient was peak pressuring yesterday Nimbex is running at 2 mcg/kg/min. The patient is currently on assist-control mode of mechanical ventilation at rate of 28, tidal volume of 350, FiO2 of 50% and PEEP of 6. The blood gas from today shows a pH of 7.24 with a pCO2 of 55 and a pO2 of 108. Chest x-ray from today shows diffuse bilateral pulmonary filtrates with some limited improvement in patient compared to yesterday. Bronchoscopy and bronchial lavage was done and the microbial culture is still pending is negative thus far and the patient remains on a combination of Zosyn and vancomycin. The vancomycin trough level was at 21. BUN is at 30 with a creatinine of 0.8 and sodium level at 144. WBC count is 8.3 with a hemoglobin 10.5 and a platelet count of 201. The patient remains on vital high-protein at 30 to 45 cc an hour. Fluid balance is +3.6 L over the past 24 hours. Meanwhile, the patient had an episode of atrial fibrillation yesterday with rapid ventricular response. The patient was loaded with amiodarone and currently is back in normal sinus rhythm. Amiodarone is running at 200 mg p.o. twice a day. The patient is also on anticoagulation with Eliquis 5 mg p.o. twice a day. The patient on Toprol-XL 25 mg p.o. daily. IV Solu-Medrol was also added. On 10/18/2023, seen the patient for a follow-up. Patient remains intubated on the mechanical ventilator. On today's evaluation, the patient is on propofol at 75 mcg/kg/min and fentanyl at 2 mcg/kg/h. The patient is also paralyzed as the patient was peak pressuring yesterday. Nimbex is running at 3 mcg/kg/min. Remains on mechanical ventilator. Peak airway pressure is 30. Static airway pressure is 20. Patient is on assist-control mode at rate of 28, tidal volume of 350, fentanyl 50% with a PEEP of 6. pH is at 7.36 with a pCO2 of 54 and pO2 of 69. The chest x-ray shows increased right lower lobe pulmonary infiltration, some interval improvement in the aeration bilaterally. Orotracheal tube is in the mid location. Patient is on no pressors. The patient was started on Lasix 40 mg IV every 12 hours and the patient is negative fluid balance of 2.9 L over the past 24 hours. The patient is receiving enteral feeding for nutritional support. Antibiotic coverage is unchanged. Remains on Zosyn and vancomycin. Cultures are all negative. BUN is 43 with a creatinine of 0.8 and sodium levels at 144. WBC count 0.6 with a hemoglobin of 11.1 and a platelet count of 185. Afebrile for now. Meanwhile, the patient is having some ectopies. He did have a run of atrial fibrillation yesterday and currently is back in normal sinus rhythm and the patient is on oral amiodarone. Patient is also on metoprolol 25 mg p.o. Anticoagulation with Eliquis. 10/19/2023, the patient is being seen for a follow-up. Remains intubated on mechanical ventilator. Chest x-ray still showing diffuse bilateral pulm infiltrates. Stable compared to yesterday. No significant interval improvement in chest x-ray findings. Right ear this morning, the patient developed A-fib RVR. He will be given another bolus of amiodarone 150 mg. He is on oral amiodarone 200 mg p.o. twice a day and metoprolol 25 mg 3 times daily. Rate is under better control for now. Remains on propofol at 75 mcg/kg/min and fentanyl at 2 mcg/kg/h. He is currently off Nimbex. He is on assist-control mode with rate of 28, tidal volume of 350, 150% with a PEEP of 6. pH is at 7.44 with a pCO2 of 52 and pO2 of 84. Fluid balance -3.3 L over the past 24 hours. White cell count is at 10.9 with a hemoglobin 11.8 and platelet count of 223. Sodium is at 148, potassium 3.8, bicarb is at 35, BUN is 51 with a creatinine of 0.8. The patient is on vital high-protein for enteral feeding and nutritional support at the rate of 51 cc an hour. The patient will need a laxative for bowel movement activity. Remains on Zosyn and vancomycin. All of the cultures have been negative. 01/20/2024, patient is being seen for a follow-up. The patient remains intubated on mechanical ventilator. He is off Nimbex. Paralytics have been discontinued for the past 48 hours and the patient is on propofol and fentanyl. Propofol is at 60 mcg/kg/min and fentanyl is at 1 mcg/kg/h. Upon receiving a sedation holiday, the patient is arousable. Nevertheless, not absolutely ready to be weaned off the mechanical ventilator. There is interval improvement in aeration on today's chest x-ray. He remains on assist-control mode of mechanical ventilation at rate of 28, tidal volume of 350, FiO2 50% with a PEEP of 6. Blood gas shows a pH of 7.51 with a pCO2 of 48 and pO2 of 86. Fluid balance is -3.1 L over the past 24 hours and the patient was being diuresed with IV Lasix. The patient is also on vital high-protein at rate of 51 cc an hour. Hemodynamically stable. Afebrile. Remains on broad-spectrum antibiotics. Cultures are negative. Remains on IV Solu-Medrol. Cardiac rhythm has remained sinus over the past 24 hours. Remains on amiodarone. Remains on 200 mg amiodarone twice a day and metoprolol 25 mg 3 times daily. Remains on anticoagulation with Eliquis. 10/21/2023, the patient is on propofol at 55 mcg and fentanyl 1 mcg. Remains on a mechanical ventilator, intubated and the chest x-ray shows improvement in the aeration in both lungs. There is some residual right lower lobe pulm in filtrate. Lines on the place. The patient remains on the mechanical ventilator assist-control mode with rate of 18, tidal volume of 350, FiO2 of 40% with a PEEP of 6. Based on morning blood gas, the patient has a pH of 7.48 with a pCO2 of 45 and pO2 of 72. Started weaning the propofol and fentanyl. Sedation holiday was given and the patient seem to be appropriate. Subsequently parameters were adequate. The patient was given a post spontaneous breathing trial with a pressure support of 5 and a PEEP of 5. Blood gas showed a pH of 7.5 with a pCO2 of 43 and pO2 of 96. The patient was accordingly extubated. The rest of the labs show a WBC count of 11, hemoglobin 10.7 and a platelet coun t of 190. BUN 41 with a creatinine of 0.7 and sodium levels of 146. Fluid balance is -520 cc over the past 24 hours and IV Lasix has been discontinued. The patient was also receiving enteral feeding and the patient was on vital AF at the rate of 51 cc an hour. Procalcitonin level has dropped down to 0.17. The patient is having episodes of fever. Noted all of the cultures were negative from previous evaluations. He has a triple-lumen catheter in his left IJ. His cardiac rhythm is sinus. Remains on amiodarone and metoprolol and remains on anticoagulation with Eliquis. 10/22/2023, the patient is extubated on 4 L of oxygen by nasal cannula. Sitting up in a chair. Denies having any significant respiratory distress. Chest x-ray continues to show ongoing improvement with some residual pulmonary filtrates in lung base bilaterally more so on the right. Remains on IV Zosyn. Cardiac r hythm is sinus. Awake and alert and communicating. Neuro generalized global weakness in all 4 extremities. Mental status. The sodium is at 141, BUN 36 with a creatinine of 0.66. WBC count is 11.2 with a hemoglobin 10.8. Blood sugar is slightly elevated and the patient remains on insulin sliding scale insulin coverage. The patient remains on metoprolol 25 mg p.o. 3 times daily and amiodarone 100 mg p.o. twice daily and he is also on anticoagulation with Eliquis. All of the cultures were negative. Vancomycin has been discontinued. Steroids are to be tapered. Patient was received today on 10/23/2023, patient remains in the ICU, he is on 3 L nasal cannula, patient was extubated uneventfully on 10/21/2023, he also underwent bronchoscopy on 10/15/2023. 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 Extremely weak apparently he did receive Nimbex early when he was intubated for a few days. Patient is also having diarrhea, and we are checking C. difficile screening on this patient. Patient finished a full course of Zosyn and vancomycin. X-ray is showing patchy interstitial changes and focal opacity remains at the right lung base, with slight improvement compared to previous x-rays. WBC count is 9.9 hemoglobin 11.1 basic metabolic profile is normal renal profile is normal, patient seems to be relatively asymptomatic except for his profound weakness involving his upper and lower extremities. He definitely needs physical therapy as it may take a long time to recover. Patient was reevaluated today on 10/24/2023, remains in the ICU on room air, not in any distress. Remains generally weak, and undergoing physical therapy. Patient is now off antibiotics, chest x-ray is showing significant improvement in his bilateral infiltrates/pneumonia. He is not requiring any pressors CBC is relatively normal WBC count is 9.9 hemoglobin 11.1 electrolytes are normal renal profile is normal C. difficile screen is negative. Overall the patient is doing much better however he remains to be very weak. 10/24/23 PMR consulted to evaluate for IPR needs. He has had an extensive hospital course. At this time he notes he is weak, but has overall improved. He has chronic neck and low back pain, numbness in his arms and legs. Denies WILLETT, CP, SOB, abdominal pain. LBM yesterday. With therapies, has been dependent with bed mobility, unable to transfer without lift, Dependent for ADLS; limited by weakness and endurance. Review of Systems + per above, o/w 14 point ROS negative. Past Medical History Past Medical History: COPD, GERD/Reflux, Hypertension, Pneumonia Additional Past Medical History / Comment(s): back pain spinal cord pinched in neck. SOB with activity History of Any Multi-Drug Resistant Organisms: None Reported Past Surgical History: Back Surgery Additional Past Surgical History / Comment(s): neck fusion,rt eye surgery, rt hand surgery, cateracts Past Anesthesia/Blood Transfusion Reactions: No Reported Reaction Past Psychological History: Depression Smoking Status: Current every day smoker Past Alcohol Use History: None Reported Past Drug Use History: Marijuana - Past Family History Mother History Unknown: Yes Family Medical History: Myocardial Infarction ([place]) Additional Family Medical History / Comment(s): from [place] Medications and Allergies Home Medications Medication Instructions Recorded Confirmed Type DULoxetine HCL [Cymbalta] 60 mg PO DAILY 04/15/22 10/12/23 History Baclofen [Lioresal] 20 mg PO TID 01/13/23 10/12/23 History DULoxetine HCL [Cymbalta] 30 mg PO HS 05/10/23 10/12/23 History HYDROcodone/APAP 7.5-325MG [Council 1 tab PO BID PRN 05/10/23 10/12/23 History 7.5-325] Tamsulosin [Flomax] 0.4 mg PO DAILY 05/10/23 10/12/23 History Metoprolol Succinate [Metoprolol 12.5 mg PO DAILY 09/12/23 10/12/23 History Succinate ER] amLODIPine BESYLATE [Amlodipine 2.5 mg PO DAILY 09/12/23 10/12/23 History Besylate] Albuterol Sulfate [Albuterol 2 puff PO RT-QID PRN 10/12/23 10/12/23 History Sulfate Hfa] Ipratropium-Albuterol Nebulize 3 ml INHALATION RT-Q6H PRN 10/12/23 10/12/23 History [Duoneb 0.5 mg-3 mg/3 ml Soln] Allergies Allergy/AdvReac Type Severity Reaction Status Date / Time sacubitril [From Entresto] Allergy hives Verified 10/12/23 17:09 trazodone Allergy Rash/Hives Verified 10/12/23 17:09 valsartan [From Entresto] Allergy hives Verified 10/12/23 17:09 Physical Exam Vitals: Vital Signs Temp Pulse Pulse Resp BP Pulse Ox 10/25/23 00:00 98.0 F 66 17 131/83 98 10/24/23 20:44 70 10/24/23 20:33 68 10/24/23 20:32 68 10/24/23 20:18 67 10/24/23 20:00 97.9 F 70 16 131/75 97 10/24/23 16:39 70 10/24/23 16:30 70 10/24/23 16:00 97.7 F 65 16 97/64 97 10/24/23 14:38 92/67 10/24/23 12:53 70 18 10/24/23 12:43 70 14 10/24/23 12:00 97.6 F 76 14 86/62 97 10/24/23 08:26 67 12 10/24/23 08:19 65 14 10/24/23 08:18 65 14 10/24/23 08:05 64 16 95 10/24/23 08:00 97.5 F L 65 14 92/65 97 Intake and Output 10/24/23 10/24/23 10/25/23 14:59 22:59 06:59 Intake Total 340 118 200 Output Total 150 175 350 Balance 190 -57 -150 Intake: Oral 340 118 200 Output: Urine 150 175 350 Other: Voiding Method Indwelling Catheter Indwelling Catheter Indwelling Catheter # Bowel Movements 0 Weight 79.5 kg Gen: NAD, alert HEENT: PERRLA, EOMI, neck supple Lungs: non-labored breathing Heart: regular rate Abd: soft, nt Neuro: A&O x4 (with correction) Speech fluent, able to follow 3 step commands MMT: UE 3/5 EE/EF, decreased shoulders; LE 1-2/5 Sensation light touch decreased UE/LE DTR symmetric UE/LE Skin: warm, dry Ext: no significant LE edema, no calf TTP, negative homans Results CBC & Chem 7: 10/23/23 04:00 10/23/23 11:15 Labs: Abnormal Lab Results - Last 24 Hours (Table) 10/24/23 10/24/23 10/24/23 Range/Units 11:28 16:27 19:57 POC Glucose (mg/dL) 111 H 185 H 129 H (70-110) mg/dL Microbiology - Last 24 Hours (Table) 10/21/23 14:28 Blood Culture - Preliminary Blood 10/21/23 14:29 Blood Culture - Preliminary Blood Assessment and Plan Assessment: # Decline in function - has been dependent with therapies #CIM # Acute hypoxic and hypercapnic respiratory failure requiring mechanical ventilation, patient was intubated on 10/14 and extubated on 10/20. # Acute exacerbation of chronic COPD, and suspect underlying pneumonia, community-acquired or could be aspiration related. # Hypotension, likely septic in nature and the patient is currently off pressors # Paroxysmal A-fib, presently on oral amiodarone. And on Toprol-XL # Previous history of pseudomonal growth in the sputum rule out pseudomonal tracheal bronchitis/pneumonia. # Chronic and ongoing tobacco dependence of nearly 50 years # History of alcoholism # Marijuana use # History of depression Recommendation: -per your medical management - continue comprehensive therapies At this time, unable to fully participate in IPR program, so most appropriate for [facility]. However, as improves medically and able to participate more fully, may be IPR candidate at that time.
[2023-10-25 07:26] LABS: Basophils % (A) 0 %; Eosinophils % (A) 0 %; HCT 38.5 % (39.0-53.0); HGB 12.3 gm/dL (13.0-17.5); Lymphocytes # (A) 1.5 k/uL (1.0-4.8); Lymphocytes % (A) 15 %; MCH 28.2 pg (25.0-35.0); MCHC 32.1 g/dL (31.0-37.0); MCV 88.1 fL (80.0-100.0); Mean Platelet Volume 10.7; Monocytes # (A) 0.7 k/uL (0-1.0); Monocytes % (A) 7 %; Neutrophils # (A) 7.8 k/uL (1.3-7.7); Neutrophils % (A) 77 %; Platelet Count 181 k/uL (150-450); RBC 4.37 m/uL (4.30-5.90); RDW 13.7 % (11.5-15.5); WBC 10.2 k/uL (3.8-10.6)
[2023-10-25 07:50] LABS: ALT 205 U/L (4-49); AST 54 U/L (17-59); African American GFR (CKD) >90 (>60 ml/min/1.73 sqM); Albumin 2.8 g/dL (3.5-5.0); Alkaline Phosphatase 64 U/L (38-126); Anion Gap 2 mmol/L; Blood Urea Nitrogen 21 mg/dL (9-20); Calcium 7.9 mg/dL (8.4-10.2); Carbon Dioxide 26 mmol/L (22-30); Chloride 106 mmol/L (98-107); Glucose 74 mg/dL (74-99); Non-African American GFR(CKD) >90 (>60 ml/min/1.73 sqM); Potassium 3.6 mmol/L (3.5-5.1); Sodium 134 mmol/L (137-145); Total Bilirubin 0.8 mg/dL (0.2-1.3); Total Protein 4.9 g/dL (6.3-8.2)
[2023-10-25] MEDS: predniSONE 20 MG TAB PO SCH (09:08)
[2023-10-25 11:33] LABS: Glucose,Whole Blood 110 mg/dL (70-110)
--- NOTE | 2023-10-25 13:44 | P.PN ---
Subjective Progress Note Date: 10/25/23 Principal diagnosis: Acute hypoxic and hypercapnic respiratory failure secondary to acute exacerbation of COPD and bilateral pneumonia. On 10/15/2023, patient is being seen for a follow-up. The patient remains intubated on the mechanical ventilator with diffuse bilateral pulmonary filtrates, likely presenting bilateral pneumonia. This morning, the patient is on propofol at 75 mcg/kg/min and the patient is also on fentanyl at 1.5 mcg/kg/h. The patient is on assist-control mechanical ventilation at rate of 28, tidal volume of 400, FiO2 of 50% with a PEEP of 8. Peak airway pressures 32. The static airway pressure is 29. Blood gas shows a pH of 7.18 with a pCO2 of 62 and pO2 of 160. Hemodynamically, the patient remains hypotensive and currently is on norepinephrine at low-dose running at 0.04 mcg/kg/min and the patient is also on normal saline at rate of 75 cc an hour. The white cell count is at 15.3 with a hemoglobin 10.9 and a platelet count of 208. BUN is at 26 with a creatinine of 0.8 and sodium levels at 141 with a potassium level of 4.8 with a serum bicarb of 24. The chloride is at 115. The patient was receiving IV Rocephin. Cardiac rhythm is sinus. Remains on bronchodilators. Remains on steroids. Echocardiogram completed this morning a preserved LV function with an EF of around 55 to 60% without any significant valvular abnormalities. Right ventricular systolic pressure estimated to be around 38. Chest x-ray showing diffuse bilateral pulmonary infiltrates. Cultures are negative thus far. 10/16/2023, the patient is being seen for a follow-up. The patient remains sedated on propofol which is running at 75 mcg/kg/min and the patient is currently on fentanyl at 1.5 mcg/kg/h. The patient was taken off the Nimbex yesterday. Remains intubated on the mechanical ventilator. Remains on assist- control mode with rate of 20, tidal volume of 400, FiO2 of 50% with a PEEP of 8, and the patient blood gas showed pH 7.30 with a pCO2 of 47 and pO2 of 116. The bronchoscopy was done yesterday and the results of bronchial lavage are still pending. Chest x-ray showing diffuse bilateral pulm infiltrates, unchanged compared to yesterday. ET tube is in a good location. Echocardiogram was done yesterday and the patient was found to have a preserved LV function without any significant valvular abnormalities. Right ventricular systolic pressure was estimated to be at 35. No evidence of any pericardial effusion. The patient remains on Zosyn and vancomycin. Cultures are still pending for now. The patient is afebrile. The patient remains off pressors. Norepinephrine was weaned off and discontinued without any major difficulties and the patient is maintaining his own blood pressure. The patient however is on amiodarone drip at 0.5 mg/min regarding atrial fibrillation and his rate is controlled and converted into normal sinus rhythm. He remains on normal citrate of 75 cc an hour. He is on enteral feeding for nutritional support with vital high-protein at a rate of 30 cc an hour. Fluid balance is +3.1 L over the past 24 hours. On today's evaluation of 10/17/2023, seen the patient for a follow-up. Remains intubated on mechanical ventilator. This morning, the patient is on propofol running at 75 mcg/kg/min and fentanyl at 2 mcg/kg/h. The patient is also on Nimbex for paralysis as the patient was quite asynchronous with mechanical ventilator and the patient was peak pressuring yesterday Nimbex is running at 2 mcg/kg/min. The patient is currently on assist-control mode of mechanical ventilation at rate of 28, tidal volume of 350, FiO2 of 50% and PEEP of 6. The blood gas from today shows a pH of 7.24 with a pCO2 of 55 and a pO2 of 108. Chest x-ray from today shows diffuse bilateral pulmonary filtrates with some limited improvement in patient compared to yesterday. Bronchoscopy and bronchial lavage was done and the microbial culture is still pending is negative thus far and the patient remains on a combination of Zosyn and vancomycin. The vancomycin trough level was at 21. BUN is at 30 with a creatinine of 0.8 and sodium level at 144. WBC count is 8.3 with a hemoglobin 10.5 and a platelet cou nt of 201. The patient remains on vital high-protein at 30 to 45 cc an hour. Fluid balance is +3.6 L over the past 24 hours. Meanwhile, the patient had an episode of atrial fibrillation yesterday with rapid ventricular response. The patient was loaded with amiodarone and currently is back in normal sinus rhythm. Amiodarone is running at 200 mg p.o. twice a day. The patient is also on anticoagulation with Eliquis 5 mg p.o. twice a day. The patient on Toprol-XL 25 mg p.o. daily. IV Solu-Medrol was also added. On 10/18/2023, seen the patient for a follow-up. Patient remains intubated on the mechanical ventilator. On today's evaluation, the patient is on propofol at 75 mcg/kg/min and fentanyl at 2 mcg/kg/h. The patient is also paralyzed as the patient was peak pressuring yesterday. Nimbex is running at 3 mcg/kg/min. Remains on mechanical ventilator. Peak airway pressure is 30. Static airway pressure is 20. Patient is on assist-control mode at rate of 28, tidal volume of 350, fentanyl 50% with a PEEP of 6. pH is at 7.36 with a pCO2 of 54 and pO2 of 69. The chest x-ray shows increased right lower lobe pulmonary infiltration, some interval improvement in the aeration bilaterally. Orotracheal tube is in the mid location. Patient is on no pressors. The patient was started on Lasix 40 mg IV every 12 hours and the patient is negative fluid balance of 2.9 L over the past 24 hours. The patient is receiving enteral feeding for nutritional support. Antibiotic coverage is unchanged. Remains on Zosyn and vancomycin. Cultures are all negative. BUN is 43 with a creatinine of 0.8 and sodium levels at 144. WBC count 0.6 with a hemoglobin of 11.1 and a platelet count of 185. Afebrile for now. Meanwhile, the patient is having some ectopies. He did have a run of atrial fibrillation yesterday and currently is back in normal sinus rhythm and the patient is on oral amiodarone. Patient is also on metoprolol 25 mg p.o. Anticoagulation with Eliquis. 10/19/2023, the patient is being seen for a follow-up. Remains intubated on mechanical ventilator. Chest x-ray still showing diffuse bilateral pulm infiltrates. Stable compared to yesterday. No significant interval improvement in chest x-ray findings. Right ear this morning, the patient developed A-fib RVR. He will be given another bolus of amiodarone 150 mg. He is on oral amiodarone 200 mg p.o. twice a day and metoprolol 25 mg 3 times daily. Rate is under better control for now. Remains on propofol at 75 mcg/kg/min and fentanyl at 2 mcg/kg/h. He is currently off Nimbex. He is on assist-control mode with rate of 28, tidal volume of 350, 150% with a PEEP of 6. pH is at 7.44 with a pCO2 of 52 and pO2 of 84. Fluid balance -3.3 L over the past 24 hours. White cell count is at 10.9 with a hemoglobin 11.8 and platelet count of 223. Sodium is at 148, potassium 3.8, bicarb is at 35, BUN is 51 with a creatinine of 0.8. The patient is on vital high-protein for enteral feeding and nutritional support at the rate of 51 cc an hour. The patient will need a laxative for bowel movement activity. Remains on Zosyn and vancomycin. All of the cultures have been negative. 01/20/2024, patient is being seen for a follow-up. The patient remains intubated on mechanical ventilator. He is off Nimbex. Paralytics have been discontinued for the past 48 hours and the patient is on propofol and fentanyl. Propofol is at 60 mcg/kg/min and fentanyl is at 1 mcg/kg/h. Upon receiving a sedation holiday, the patient is arousable. Nevertheless, not absolutely ready to be weaned off the mechanical ventilator. There is interval improvement in aeration on today's chest x-ray. He remains on assist-control mode of mechanical ventilation at rate of 28, tidal volume of 350, FiO2 50% with a PEEP of 6. Blood gas shows a pH of 7.51 with a pCO2 of 48 and pO2 of 86. Fluid balance is -3.1 L over the past 24 hours and the patient was being diuresed with IV Lasix. The patient is also on vital high-protein at rate of 51 cc an hour. Hemodynamically stable. Afebrile. Remains on broad-spectrum antibiotics. Cultures are negative. Remains on IV Solu-Medrol. Cardiac rhythm has remained sinus over the past 24 hours. Remains on amiodarone. Remains on 200 mg amiodarone twice a day and metoprolol 25 mg 3 times daily. Remains on anticoagulation with Eliquis. 10/21/2023, the patient is on propofol at 55 mcg and fentanyl 1 mcg. Remains on a mechanical ventilator, intubated and the chest x-ray shows improvement in the aeration in both lungs. There is some residual right lower lobe pulm infiltrat e. Lines on the place. The patient remains on the mechanical ventilator assist-control mode with rate of 18, tidal volume of 350, FiO2 of 40% with a PEEP of 6. Based on morning blood gas, the patient has a pH of 7.48 with a pCO2 of 45 and pO2 of 72. Started weaning the propofol and fentanyl. Sedation holiday was given and the patient seem to be appropriate. Subsequently parameters were adequate. The patient was given a post spontaneous breathing trial with a pressure support of 5 and a PEEP of 5. Blood gas showed a pH of 7.5 with a pCO2 of 43 and pO2 of 96. The patient was accordingly extubated. The rest of the labs show a WBC count of 11, hemoglobin 10.7 and a platelet count of 190. BUN 41 with a creatinine of 0.7 and sodium levels of 146. Fluid balance is -520 cc over the past 24 hours and IV Lasix has been discontinued. The patient was also receiving enteral feeding and the patient was on vital AF at the rate of 51 cc an hour. Procalcitonin level has dropped down to 0.17. The patient is having episodes of fever. Noted all of the cultures were negative from previous evaluations. He has a triple-lumen catheter in his left IJ. His cardiac rhythm is sinus. Remains on amiodarone and metoprolol and remains on anticoagulation with Eliquis. 10/22/2023, the patient is extubated on 4 L of oxygen by nasal cannula. Sitting up in a chair. Denies having any significant respiratory distress. Chest x-ray continues to show ongoing improvement with some residual pulmonary filtrates in lung base bilaterally more so on the right. Remains on IV Zosyn. Cardiac rhythm is sinus. Awake and alert and communicating. Neuro generalized global weakness in all 4 extremities. Mental status. The sodium is at 141, BUN 36 with a creatinine of 0.66. WBC count is 11.2 with a hemoglobin 10.8. Blood sugar is slightly elevated and the patient remains on insulin sliding scale insulin coverage. The patient remains on metoprolol 25 mg p.o. 3 times daily and amiodarone 100 mg p.o. twice daily and he is also on anticoagulation with Eliquis. All of the cultures were negative. Vancomycin has been discontinued. Steroids are to be tapered. Patient was received today on 10/23/2023, patient remains in the ICU, he is on 3 L nasal cannula, patient was extubated uneventfully on 10/21/2023, he also underwent bronchoscopy on 10/15/2023. 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 Extremely weak apparently he did receive Nimbex early when he was intubated for a few days. Patient is also having diarrhea, and we are checking C. difficile screening on this patient. Patient finished a full course of Zosyn and vancomycin. X-ray is showing patchy interstitial changes and focal opacity remains at the right lung base, with slight improvement compared to previous x-rays. WBC count is 9.9 hemoglobin 11.1 basic metabolic profile is normal renal profile is normal, patient seems to be relatively asymptomatic except for his profound weakness involving his upper and lower extremities. He definitely needs physical therapy as it may take a long time to recover. Patient was reevaluated today on 10/24/2023, remains in the ICU on room air, not in any distress. Remains generally weak, and undergoing physical therapy. Patient is now off antibiotics, chest x-ray is showing significant improvement in his bilateral infiltrates/pneumonia. He is not requiring any pressors CBC is relatively normal WBC count is 9.9 hemoglobin 11.1 electrolytes are normal renal profile is normal C. difficile screen is negative. Overall the patient is doing much better however he remains to be very weak. Reevaluated today on 10/25/23, patient remains in the ICU, doing well, continues to have jaw weakness, denies any cough wheezing or shortness of breath, denies any chest pain, patient is actually on room air, and does not seem to be in any distress. Labs today were basically unremarkable including normal CBC and normal basic metabolic profile, normal renal profile Objective - Vital Signs Vital signs: Vital Signs Temp 98.8 F 10/25/23 08:00 Pulse 66 10/25/23 12:34 Resp 15 10/25/23 08:00 BP 111/64 10/25/23 08:00 Pulse Ox 96 10/25/23 08:16 FiO2 40 10/21/23 09:30 Intake & Output 10/24/23 10/25/23 10/25/23 18:59 06:59 18:59 Intake Total 458 200 Output Total 325 350 275 Balance 133 -150 -275 Weight 79.5 kg Intake: Oral 458 200 Output: Urine 325 350 275 Other: Voiding Method Indwelling Catheter Indwelling Catheter Indwelling Catheter # Bowel Movements 0 ABP, PAP, CO, CI - Last Documented Arterial Blood Pressure 138/66 - Exam Physical exam: General: Revealed a 63-year-old white male, calm, in no distress, on room air Head: Atraumatic, normocephalic. HEENT: PERRLA, EOMI, nonicteric, no neck masses. Neck supple. Full range of motion. No masses, no JVD. Cardiovascular send S1-S2, no S3 gallop, no murmur. Lungs: Diminished breath sounds at the bases, no crackles rhonchi or wheezes Abdominal exam: Soft nontender no megaly no rebound no guarding Extremities are intact. No cyanosis clubbing or edema. Skin is without rash or lesion. Neurologic examination alert oriented x 3 but seems to be generally weak, patient was noted to have a bit more strength in his upper extremities today able to raise both arms against gravity - Labs CBC & Chem 7: 10/25/23 06:42 10/25/23 06:42 Labs: Abnormal Lab Results - Last 24 Hours (Table) 10/24/23 10/24/23 10/25/23 Range/Units 16:27 19:57 06:42 Hgb 12.3 L (13.0-17.5) gm/dL Hct 38.5 L (39.0-53.0) % Neutrophils # 7.8 H (1.3-7.7) k/uL Sodium (137-145) mmol/L BUN (9-20) mg/dL POC Glucose (mg/dL) 185 H 129 H (70-110) mg/dL Calcium (8.4-10.2) mg/dL ALT (4-49) U/L Total Protein (6.3-8.2) g/dL Albumin (3.5-5.0) g/dL 10/25/23 Range/Units 06:42 Hgb (13.0-17.5) gm/dL Hct (39.0-53.0) % Neutrophils # (1.3-7.7) k/uL Sodium 134 L (137-145) mmol/L BUN 21 H (9-20) mg/dL POC Glucose (mg/dL) (70-110) mg/dL Calcium 7.9 L (8.4-10.2) mg/dL ALT 205 H (4-49) U/L Total Protein 4.9 L (6.3-8.2) g/dL Albumin 2.8 L (3.5-5.0) g/dL Microbiology - Last 24 Hours (Table) 10/21/23 14:28 Blood Culture - Preliminary Blood 10/21/23 14:29 Blood Culture - Preliminary Blood Assessment and Plan Assessment: Impression: Acute hypoxic and hypercapnic respiratory failure requiring mechanical ventilation, patient was intubated on 10/14 and extubated on 10/20. Acute exacerbation of COPD, and suspect underlying pneumonia, community-acquired or could be aspiration related. Hypotension, likely septic in nature and the patient is currently off pressors Paroxysmal A-fib, presently on oral amiodarone. And on Toprol-XL Previous history of pseudomonal growth in the sputum rule out pseudomonal tracheal bronchitis/pneumonia. 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 Patient is off antibiotics Continue bronchodilators, and continue tapering of prednisone Patient is now on regular diet Transfer out of the ICU to a medical surgical floor. Will continue to follow. Continue GI DVT prophylaxis Time with Patient: Less than 30
--- NOTE | 2023-10-25 14:20 | P.PN ---
Subjective Progress Note Date: 10/25/23 63-year-old male with a past medical history of COPD on home oxygen, hypertension, chronic back pain, history of cervical fusion surgery, depression currently everyday smoker and marijuana use. Patient presents to ER with complaints of worsening shortness of breath anxiety, chills and fever. Patient was tachycardic and tachypneic on admission. States that he has subjective fevers. Cough and congestion and unable to bring out any sputum. No complaints of chest pain. No nausea vomiting abdominal pain or diarrhea. No headache or dizziness or neck stiffness. Chest x-ray showed perihilar infiltrates in the deflector lobar pneumonia. Correlate clinically and appropriate studies are recommended. EKG showed atrial fibrillation with rapid ventricular response. Patient had a cardiac catheterization on 09/14/2023 showed relatively normal coronaries and normal left sided filling pressures. Laboratory test showed WBC 23.7 hemoglobin 14.2 and platelets 265 Sodium 141 potassium 3.8 chloride 104 bicarb is 22 BUN 16 and creatinine 0.94 and blood sugar 89 and lactic acid 4.7 and magnesium 1.5 Sabael Elevated procalcitonin level 2.4. Troponin x 1 negative proBNP 262 10/20/2023 Patient is seen and evaluated in room in ICU; patient remains intubated on mechanical ventilator. Paralytics have been discontinued for the past 48 hours and the patient is on propofol and fentanyl. -- Upon receiving a sedation holiday, the patient is arousable. There is interval improvement in aeration on today's chest x-ray. He remains on assist- control mode of mechanical ventilation at rate of 28, tidal volume of 350, FiO2 50% with a PEEP of 6. Blood gas shows a pH of 7.51 with a pCO2 of 48 and pO2 of 86. Fluid balance is -3.1 L over the past 24 hours and the patient was being di uresed with IV Lasix. The patient is also on vital high-protein at rate of 51 cc an hour. Hemodynamically stable. Afebrile. Remains on broad-spectrum antibiotics. Cultures are negative. Remains on IV Solu-Medrol. Cardiac rhythm has remained sinus over the past 24 hours. Remains on amiodarone. Remains on 200 mg amiodarone twice a day and metoprolol 25 mg 3 times daily. Remains on anticoagulation with Eliquis 10/21. Patient seen and examined. Dr. Lewis took over care. Lab work done this morning showed WBC 9.2, hemoglobin 10.8, platelet count 174, sodium 141, potassium 3.8, BUN 30, creatinine 0.66. Sitting upright in the chair. Currently on 4 L of oxygen. 10/22. Patient seen and examined. Patient told continues to be very weak. Currently on 3 L of oxygen. Patient heart rate on the lower side, dose of metoprolol decreased to 25 mg twice daily 10/23. Patient seen and examined. Sitting upright in the chair. States he feels better. PT and OT recommend IPR which have been consulted 10/24. Patient seen and examined. States he is still slowly getting his strength back. Able to lift his arms better compared to yesterday. REVIEW OF SYSTEMS: CONSTITUTIONAL: No fever, no malaise,. CARDIOVASCULAR: No chest pain, no palpitations, no syncope. PULMONARY: Denies chest pain GASTROINTESTINAL: No diarrhea, no nausea, no vomiting, no abdominal pain. NEUROLOGICAL: No headaches, no weakness, PHYSICAL EXAMINATION: GENERAL: The patient is alert and oriented x3, chronically ill looking HEENT: Pupils are round and equally reacting to light. EOMI. No scleral icterus. No conjunctival pallor. Normocephalic, atraumatic. No pharyngeal erythema. No thyromegaly. CARDIOVASCULAR: S1 and S2 present. No murmurs, rubs, or gallops. PULMONARY: Coarse breath sound bilaterally, no wheezing or crackles. ABDOMEN: Soft, nontender, nondistended, normoactive bowel sounds. No palpable organomegaly. MUSCULOSKELETAL: No joint swelling or deformity. EXTREMITIES: No cyanosis, clubbing, 1+ pitting edema lower extremities NEUROLOGICAL: Gross neurological examination did not reveal any focal deficits. SKIN: No rashes. Assessment and plan Acute on chronic hypoxemic respiratory failure secondary to COPD and pneumonia. Patient was on 100% nonrebreather currently requiring mechanical ventilator. Acute COPD exacerbation Bilateral pneumonia Sepsis secondary to pneumonia New onset A-fib with RVR as per EKG on admission Ongoing nicotine addiction GERD Hypertension Prior history of pneumonia Depression Marijuana use COPD on home oxygen as needed DVT prophylaxis with heparin subcu Plan: Monitor vital signs monitor CBC Monitor CMP Patient is status post bronchoscopy on 10/15/2023 Follow-up blood cultures and sputum cultures and BAL cultures. Completed course of antibiotics Continue DuoNebs and oxygen supplementation. Continue prednisone Continue Eliquis, metoprolol and amiodarone. Cardiology and pulmonary is on board. Physical medicine rehab consulted Labs and medication were reviewed.. Continue same treatment. Continue with symptomatic treatment. Resume home medication. Monitor labs and vitals. DVT and GI prophylaxis. Further recommendations as per clinical course of the patient Dictation was produced using [employer] dictation software. please excuse any gramm atical, word or spelling errors. Objective - Vital Signs Vital signs: Vital Signs Temp 98.0 F 10/25/23 00:00 Pulse 69 10/25/23 08:39 Resp 17 10/25/23 00:00 BP 131/83 10/25/23 00:00 Pulse Ox 96 10/25/23 08:16 FiO2 40 10/21/23 09:30 Intake & Output 10/24/23 10/25/23 10/25/23 18:59 06:59 18:59 Intake Total 458 200 Output Total 325 350 Balance 133 -150 Weight 79.5 kg Intake: Oral 458 200 Output: Urine 325 350 Other: Voiding Method Indwelling Catheter Indwelling Catheter # Bowel Movements 0 ABP, PAP, CO, CI - Last Documented Arterial Blood Pressure 138/66 - Labs CBC & Chem 7: 10/25/23 06:42 10/25/23 06:42 Labs: Abnormal Lab Results - Last 24 Hours (Table) 10/24/23 10/24/23 10/24/23 Range/Units 11:28 16:27 19:57 Hgb (13.0-17.5) gm/dL Hct (39.0-53.0) % Neutrophils # (1.3-7.7) k/uL Sodium (137-145) mmol/L BUN (9-20) mg/dL POC Glucose (mg/dL) 111 H 185 H 129 H (70-110) mg/dL Calcium (8.4-10.2) mg/dL ALT (4-49) U/L Total Protein (6.3-8.2) g/dL Albumin (3.5-5.0) g/dL 10/25/23 10/25/23 Range/Units 06:42 06:42 Hgb 12.3 L (13.0-17.5) gm/dL Hct 38.5 L (39.0-53.0) % Neutrophils # 7.8 H (1.3-7.7) k/uL Sodium 134 L (137-145) mmol/L BUN 21 H (9-20) mg/dL POC Glucose (mg/dL) (70-110) mg/dL Calcium 7.9 L (8.4-10.2) mg/dL ALT 205 H (4-49) U/L Total Protein 4.9 L (6.3-8.2) g/dL Albumin 2.8 L (3.5-5.0) g/dL Microbiology - Last 24 Hours (Table) 10/21/23 14:28 Blood Culture - Preliminary Blood 10/21/23 14:29 Blood Culture - Preliminary Blood
[2023-10-25 17:25] LABS: Glucose,Whole Blood 203 mg/dL (70-110)
[2023-10-25 20:43] LABS: Glucose,Whole Blood 105 mg/dL (70-110)
[2023-10-25] MEDS: ZOLPIDEM 5 MG TAB PO SCH (21:31)
[2023-10-26 05:46] LABS: Glucose,Whole Blood 78 mg/dL (70-110)
[2023-10-26] MEDS: PANTOPRAZOLE 40 MG TABLET PO SCH (07:51)
--- NOTE | 2023-10-26 10:50 | P.PN ---
Subjective Progress Note Date: 10/26/23 The patient is a 63-year-old male who is currently admitted to the hospital with acute hypoxic respiratory failure secondary to pneumonia. Cardiology has been consulted for atrial fibrillation, where he converted back to sinus mechanism with amiodarone. He has been transition to oral antiarrhythmic therapy. Patient was interviewed and examined resting in the recliner chair. He continues to have severe weakness and limited mobility. He denies any current shortness of breath or difficulty breathing. He denies any chest discomfort. TELEMETRY: Sinus bradycardia overnight. Low heart rates in the 40s 10/25 Patient is seen today on the Med[facility] floor from ICU. Blood pressure 106/66, heart rate 60, pulse ox 99% on room air. Telemetry is sinus rhythm running in the 50s and 60s. Patient is maintained on amiodarone 200 mg twice daily, Eliquis 5 mg twice daily, atorvastatin 20 mg daily, Lopressor 25 mg twice daily. Patient is being worked up for inpatient rehab. GENERAL: Ill-appearing, well-nourished and in no acute distress. NECK: Supple without JVD or thyromegaly. LUNGS: Breath sounds diminished to auscultation bilaterally. Respiration equal and unlabored. Crackles noted in the right lower lobe. HEART: Regular rate and rhythm without murmurs, rubs or gallops. S1 and S2 heard. EXTREMITIES: Normal range of motion, no edema. No clubbing or cyanosis. Peripheral pulses intact and strong. IMPRESSION: Paroxysmal atrial fibrillation Acute hypoxic respiratory failure, secondary to pneumonia History of COPD History of smoking PLAN: Continue current medication regimen Continue amiodarone 200 mg twice daily while in the hospital, changed to amiodarone 200 mg daily at the time of discharge Continue aggressive pulmonary hygiene No further recommendations from the cardiac standpoint Cardiology will sign off this case and follow on an as-needed basis. Please reconsult for any new concerns. Patient may follow-up in the office in one to 2 weeks. Nurse practitioner note has been reviewed, I agree with documented findings and plan of care. Patient was seen and examined. Objective - Vital Signs Vital signs: Vital Signs Temp 97.6 F 10/26/23 00:54 Pulse 60 10/26/23 00:54 Resp 14 10/26/23 00:54 BP 106/66 10/26/23 00:54 Pulse Ox 99 10/26/23 00:54 FiO2 40 10/21/23 09:30 Intake & Output 10/25/23 10/26/23 10/26/23 18:59 06:59 18:59 Output Total 166 673 Balance -625 -674 Weight 80 kg Output: Urine 837 675 Other: Voiding Method Indwelling Catheter Indwelling Catheter ABP, PAP, CO, CI - Last Documented Arterial Blood Pressure 138/66 - Labs CBC & Chem 7: 10/25/23 06:42 10/25/23 06:42 Labs: Abnormal Lab Results - Last 24 Hours (Table) 10/25/23 10/25/23 Range/Units 06:42 17:23 Sodium 134 L (137-145) mmol/L BUN 21 H (9-20) mg/dL POC Glucose (mg/dL) 203 H (70-110) mg/dL Calcium 7.9 L (8.4-10.2) mg/dL ALT 205 H (4-49) U/L Total Protein 4.9 L (6.3-8.2) g/dL Albumin 2.8 L (3.5-5.0) g/dL Microbiology - Last 24 Hours (Table) 10/15/23 11:10 Acid Fast Bacilli Smear - Preliminary Bronchoalviolar Lavage - Right Acid Fast Bacilli Culture - Preliminary
[2023-10-26 11:22] LABS: Glucose,Whole Blood 117 mg/dL (70-110)
--- NOTE | 2023-10-26 12:55 | P.PN ---
Subjective Progress Note Date: 10/26/23 63-year-old male with a past medical history of COPD on home oxygen, hypertension, chronic back pain, history of cervical fusion surgery, depression currently everyday smoker and marijuana use. Patient presents to ER with complaints of worsening shortness of breath anxiety, chills and fever. Patient was tachycardic and tachypneic on admission. States that he has subjective fevers. Cough and congestion and unable to bring out any sputum. No complaints of chest pain. No nausea vomiting abdominal pain or diarrhea. No headache or dizziness or neck stiffness. Chest x-ray showed perihilar infiltrates in the deflector lobar pneumonia. Correlate clinically and appropriate studies are recommended. EKG showed atrial fibrillation with rapid ventricular response. Patient had a cardiac catheterization on 09/14/2023 showed relatively normal coronaries and normal left sided filling pressures. Laboratory test showed WBC 23.7 hemoglobin 14.2 and platelets 265 Sodium 141 potassium 3.8 chloride 104 bicarb is 22 BUN 16 and creatinine 0.94 and blood sugar 89 and lactic acid 4.7 and magnesium 1.5 [place] Elevated procalcitonin level 2.4. Troponin x 1 negative proBNP 262 10/20/2023 Patient is seen and evaluated in room in ICU; patient remains intubated on mechanical ventilator. Paralytics have been discontinued for the past 48 hours and the patient is on propofol and fentanyl. -- Upon receiving a sedation holiday, the patient is arousable. There is interval improvement in aeration on today's chest x-ray. He remains on assist- control mode of mechanical ventilation at rate of 28, tidal volume of 350, FiO2 50% with a PEEP of 6. Blood gas shows a pH of 7.51 with a pCO2 of 48 and pO2 of 86. Fluid balance is -3.1 L over the past 24 hours and the patient was being di uresed with IV Lasix. The patient is also on vital high-protein at rate of 51 cc an hour. Hemodynamically stable. Afebrile. Remains on broad-spectrum antibiotics. Cultures are negative. Remains on IV Solu-Medrol. Cardiac rhythm has remained sinus over the past 24 hours. Remains on amiodarone. Remains on 200 mg amiodarone twice a day and metoprolol 25 mg 3 times daily. Remains on anticoagulation with Eliquis 10/21. Patient seen and examined. Dr. Lewis took over care. Lab work done this morning showed WBC 9.2, hemoglobin 10.8, platelet count 174, sodium 141, potassium 3.8, BUN 30, creatinine 0.66. Sitting upright in the chair. Currently on 4 L of oxygen. 10/22. Patient seen and examined. Patient told continues to be very weak. Currently on 3 L of oxygen. Patient heart rate on the lower side, dose of metoprolol decreased to 25 mg twice daily 10/23. Patient seen and examined. Sitting upright in the chair. States he feels better. PT and OT recommend IPR which have been consulted 10/24. Patient seen and examined. States he is still slowly getting his strength back. Able to lift his arms better compared to yesterday. 10/25. Patient seen and examined. States he feels much better. Weakness has improved. Cardiology recommended starting patient on oral amiodarone 200 mg daily at discharge REVIEW OF SYSTEMS: CONSTITUTIONAL: No fever, no malaise,. CARDIOVASCULAR: No chest pain, no palpitations, no syncope. PULMONARY: Denies chest pain GASTROINTESTINAL: No diarrhea, no nausea, no vomiting, no abdominal pain. NEUROLOGICAL: No headaches, no weakness, PHYSICAL EXAMINATION: GENERAL: The patient is alert and oriented x3, chronically ill looking HEENT: Pupils are round and equally reacting to light. EOMI. No scleral icterus. No conjunctival pallor. Normocephalic, atraumatic. No pharyngeal erythema. No thyromegaly. CARDIOVASCULAR: S1 and S2 present. No murmurs, rubs, or gallops. PULMONARY: Coarse breath sound bilaterally, no wheezing or crackles. ABDOMEN: Soft, nontender, nondistended, normoactive bowel sounds. No palpable organomegaly. MUSCULOSKELETAL: No joint swelling or deformity. EXTREMITIES: No cyanosis, clubbing, 1+ pitting edema lower extremities NEUROLOGICAL: Gross neurological examination did not reveal any focal deficits. SKIN: No rashes. Assessment and plan Acute on chronic hypoxemic respiratory failure secondary to COPD and pneumonia. Patient was on 100% nonrebreather currently requiring mechanical ventilator. Acute COPD exacerbation Bilateral pneumonia Sepsis secondary to pneumonia New onset A-fib with RVR as per EKG on admission Ongoing nicotine addiction GERD Hypertension Prior history of pneumonia Depression Marijuana use COPD on home oxygen as needed DVT prophylaxis with heparin subcu Plan: Monitor vital signs monitor CBC Monitor CMP Patient is status post bronchoscopy on 10/15/2023 Follow-up blood cultures and sputum cultures and BAL cultures. Completed course of antibiotics Continue DuoNebs and oxygen supplementation. Continue prednisone Continue Eliquis, metoprolol and amiodarone. Cardiology and pulmonary is on board. Physical medicine rehab evaluated, recommended STR Labs and medication were reviewed.. Continue same treatment. Continue with symptomatic treatment. Resume home medication. Monitor labs and vitals. DVT and GI prophylaxis. Further recommendations as per clinical course of the patient Dictation was produced using [employer] dictation software. please excuse any grammatical, word or spelling errors. Objective - Vital Signs Vital signs: Vital Signs Temp 97.5 F L 10/26/23 06:56 Pulse 72 10/26/23 10:02 Resp 18 10/26/23 06:56 BP 129/78 10/26/23 06:56 Pulse Ox 100 10/26/23 09:42 FiO2 40 10/21/23 09:30 Intake & Output 10/25/23 10/26/23 10/26/23 18:59 06:59 18:59 Output Total 625 675 Balance -625 -675 Weight 80 kg Output: Urine 625 675 Other: Voiding Method Indwelling Catheter Indwelling Catheter ABP, PAP, CO, CI - Last Documented Arterial Blood Pressure 138/66 - Labs CBC & Chem 7: 10/25/23 06:42 10/25/23 06:42 Labs: Abnormal Lab Results - Last 24 Hours (Table) 10/25/23 Range/Units 17:23 POC Glucose (mg/dL) 203 H (70-110) mg/dL Microbiology - Last 24 Hours (Table) 10/15/23 11:10 Acid Fast Bacilli Smear - Preliminary Bronchoalviolar Lavage - Right Acid Fast Bacilli Culture - Preliminary
--- NOTE | 2023-10-26 16:38 | P.PN ---
Subjective Progress Note Date: 10/26/23 The patient is seen today October 26, 2023 in follow-up on the regular medical floor. He was transferred out of the intensive care unit. He is currently sitting up in a chair at the bedside. Awake and alert in no acute distress. He is a bit stronger today compared to yesterday. Still very weak. Still unable to walk. Is maintaining good O2 saturations in the 90s on room air. Has been afebrile. Hemodynamically stable. Blood cultures revealed no growth. Bronchoalveolar lavage revealed no growth. Glucose 117. He remains on DuoNeb ventilations, Pulmicort and performing scintillations, prednisone taper. He is anticoagulated with Eliquis. Objective - Vital Signs Vital signs: Vital Signs Temp 97.1 F L 10/26/23 13:19 Pulse 67 10/26/23 13:19 Resp 18 10/26/23 13:19 BP 96/63 10/26/23 13:19 Pulse Ox 97 10/26/23 13:19 FiO2 40 10/21/23 09:30 Intake & Output 10/25/23 10/26/23 10/26/23 18:59 06:59 18:59 Output Total 041 836 519 Balance -366 -671 -580 Weight 80 kg 80 kg Output: Urine 276 725 482 Other: Voiding Method Indwelling Catheter Indwelling Catheter ABP, PAP, CO, CI - Last Documented Arterial Blood Pressure 138/66 - Exam GENERAL EXAM: Alert, pleasant 63-year-old male, quite weak still, on room air, up in a chair, in no apparent distress. HEAD: Normocephalic. EYES: Normal reaction of pupils, equal size. NOSE: Clear with pink turbinates. THROAT: No erythema or exudates. NECK: No masses, no JVD. CHEST: No chest wall deformity. LUNGS: Equal air entry with crackles in the right lung base. CVS: S1 and S2 normal with no audible murmur, regular rhythm. ABDOMEN: No hepatosplenomegaly, normal bowel sounds, no guarding or rigidity. SPINE: No scoliosis or deformity SKIN: No rashes CENTRAL NERVOUS SYSTEM: Generalized weakness but no focal deficits, tone is normal in all 4 extremities. EXTREMITIES: There is no peripheral edema. No clubbing, no cyanosis. Peripheral pulses are intact. - Labs CBC & Chem 7: 10/25/23 06:42 10/25/23 06:42 Labs: Abnormal Lab Results - Last 24 Hours (Table) 10/25/23 10/26/23 Range/Units 17:23 11:21 POC Glucose (mg/dL) 203 H 117 H (70-110) mg/dL Microbiology - Last 24 Hours (Table) 10/15/23 11:10 Acid Fast Bacilli Smear - Preliminary Bronchoalviolar Lavage - Right Acid Fast Bacilli Culture - Preliminary Assessment and Plan Assessment: Acute hypoxic and hypercapnic respiratory failure requiring mechanical ventilation, patient was intubated on 10/14 and extubated on 10/20. Recovered and on room air Acute exacerbation of COPD, and suspect underlying pneumonia, community- acquired or could be aspiration related. Completed antibiotics Hypotension, likely septic in nature and the patient is currently off pressors Paroxysmal A-fib, anticoagulated with Eliquis Previous history of pseudomonal growth in the sputum rule out pseudomonal trach eal bronchitis/pneumonia. Pleated antibiotics Chronic and ongoing tobacco dependence of nearly 50 years History of alcoholism Marijuana use History of depression Critical illness probably neuromyopathy Plan: The patient was seen and evaluated Labs and medications reviewed Currently stable and on room air Remains quite weak Working with physical therapy Will need either inpatient or subacute rehab at discharge We will continue to follow I have personally seen and examined the patient, performed the documentation and the assessment and plan as written. Number of minutes spent on the visit: 10.
[2023-10-26 17:03] LABS: Glucose,Whole Blood 140 mg/dL (70-110)
[2023-10-26 19:29] LABS: Glucose,Whole Blood 93 mg/dL (70-110)
[2023-10-26 20:11] LABS: Glucose,Whole Blood 88 mg/dL (70-110)
--- NOTE | 2023-10-26 21:49 | XR ---
EXAMINATION TYPE: XR knee limited bilateral DATE OF EXAM: 10/26/2023 8:54 PM CLINICAL INDICATION:Male, 63 years old with history of fall, landed on knees; [facility] COMPARISON: None. TECHNIQUE: XR knee limited bilateral; examined in Frontal, lateral and oblique projections. FINDINGS: No evidence of any acute osseous pathology, soft tissue swelling, or joint effusion is no quentin. Tricompartmental osteophyte formation involving the femoral condyles, tibial plateau and patella . Mild joint space narrowing. Left Metallic densities in the distal medial thigh and proximal medial leg noted compatible with likely surgical change. Enthesophyte formation of the superior patella bila terally. A fabella is noted on the left leg. IMPRESSION: 1. No acute osseous pathology. 2. Mild bilateral tricompartmental osteoarthritic changes.
[2023-10-27 06:02] LABS: Glucose,Whole Blood 82 mg/dL (70-110)
[2023-10-27 12:04] LABS: Glucose,Whole Blood 119 mg/dL (70-110)
--- NOTE | 2023-10-27 12:42 | P.PN ---
Subjective Progress Note Date: 10/27/23 The patient is seen today October 26, 2023 in follow-up on the regular medical floor. He was transferred out of the intensive care unit. He is currently sitting up in a chair at the bedside. Awake and alert in no acute distress. He is a bit stronger today compared to yesterday. Still very weak. Still unable to walk. Is maintaining good O2 saturations in the 90s on room air. Has been afebrile. Hemodynamically stable. Blood cultures revealed no growth. Bronchoalveolar lavage revealed no growth. Glucose 117. He remains on DuoNeb ventilations, Pulmicort and performing scintillations, prednisone taper. He is anticoagulated with Eliquis. The patient is seen today October 27, 2023 in follow-up on the regular medical floor. He is awake and alert in no acute distress. Sitting up in a chair at the bedside. He denies any worsening shortness of breath, cough or congestion. Maintaining good O2 saturations in the upper 90s on room air. He is been afebrile. Hemodynamically stable. Currently last evening he was trying to use a urinal while in the chair and slid off the chair onto the ground hitting his knees. His was in the room at the time. X-rays revealed no evidence of fracture. He is feeling better today. Glucose 119. He remains on DuoNeb ventilations, Pulmicort and Perforomist inhalations, prednisone taper. Anticoagulated with Eliquis. Objective - Vital Signs Vital signs: Vital Signs Temp 98.9 F 10/27/23 07:05 Pulse 75 10/27/23 11:22 Resp 19 10/27/23 08:04 BP 96/63 10/27/23 07:05 Pulse Ox 98 10/27/23 07:05 FiO2 40 10/21/23 09:30 Intake & Output 10/26/23 10/27/23 10/27/23 18:59 06:59 18:59 Output Total 580 200 Balance -580 -200 Weight 80 kg Output: Urine 580 200 Other: Voiding Method Indwelling Catheter Urinal Urinal # Voids 0 ABP, PAP, CO, CI - Last Documented Arterial Blood Pressure 138/66 - Exam GENERAL EXAM: Alert, weak 63-year-old male, on room air, up in a chair, in no apparent distress. HEAD: Normocephalic. EYES: Normal reaction of pupils, equal size. NOSE: Clear with pink turbinates. THROAT: No erythema or exudates. NECK: No masses, no JVD. CHEST: No chest wall deformity. LUNGS: Equal air entry with crackles in the right lung base. CVS: S1 and S2 normal with no audible murmur, regular rhythm. ABDOMEN: No hepatosplenomegaly, normal bowel sounds, no guarding or rigidity. SPINE: No scoliosis or deformity SKIN: No rashes CENTRAL NERVOUS SYSTEM: Generalized weakness but no focal deficits, tone is normal in all 4 extremities. EXTREMITIES: There is no peripheral edema. No clubbing, no cyanosis. Peripheral pulses are intact. - Labs CBC & Chem 7: 10/25/23 06:42 10/25/23 06:42 Labs: Abnormal Lab Results - Last 24 Hours (Table) 10/26/23 10/27/23 Range/Units 17:03 12:03 POC Glucose (mg/dL) 140 H 119 H (70-110) mg/dL Microbiology - Last 24 Hours (Table) 10/21/23 14:28 Blood Culture - Final Blood 10/21/23 14:29 Blood Culture - Final Blood 10/15/23 11:10 Fungal Culture - Preliminary Bronchoalviolar Lavage - Right Assessment and Plan Assessment: Acute hypoxic and hypercapnic respiratory failure requiring mechanical ventilation, patient was intubated on 10/14 and extubated on 10/20. Recovered and on room air Acute exacerbation of COPD, and suspect underlying pneumonia, community- acquired or could be aspiration related. Completed antibiotics Hypotension, likely septic in nature and the patient is currently off pressors Paroxysmal A-fib, anticoagulated with Eliquis Previous history of pseudomonal growth in the sputum rule out pseudomonal tracheal bronchitis/pneumonia. Pleated antibiotics Chronic and ongoing tobacco dependence of nearly 50 years History of alcoholism Marijuana use History of depression Critical illness probably neuromyopathy Plan: The patient was seen and evaluated Labs and medications reviewed X rays of the knees revealed no fracture Currently stable and on room air He will need rehabilitation at discharge We will continue to follow I have personally seen and examined the patient, performed the documentation and the assessment and plan as written. Number of minutes spent on the visit: 10.
--- NOTE | 2023-10-27 13:28 | P.PN ---
Subjective Progress Note Date: 10/27/23 63-year-old male with a past medical history of COPD on home oxygen, hypertension, chronic back pain, history of cervical fusion surgery, depression currently everyday smoker and marijuana use. Patient presents to ER with complaints of worsening shortness of breath anxiety, chills and fever. Patient was tachycardic and tachypneic on admission. States that he has subjective fevers. Cough and congestion and unable to bring out any sputum. No complaints of chest pain. No nausea vomiting abdominal pain or diarrhea. No headache or dizziness or neck stiffness. Chest x-ray showed perihilar infiltrates in the deflector lobar pneumonia. Correlate clinically and appropriate studies are recommended. EKG showed atrial fibrillation with rapid ventricular response. Patient had a cardiac catheterization on 09/14/2023 showed relatively normal coronaries and normal left sided filling pressures. Laboratory test showed WBC 23.7 hemoglobin 14.2 and platelets 265 Sodium 141 potassium 3.8 chloride 104 bicarb is 22 BUN 16 and creatinine 0.94 and blood sugar 89 and lactic acid 4.7 and magnesium 1.5 [place] Elevated procalcitonin level 2.4. Troponin x 1 negative proBNP 262 10/20/2023 Patient is seen and evaluated in room in ICU; patient remains intubated on mechanical ventilator. Paralytics have been discontinued for the past 48 hours and the patient is on propofol and fentanyl. -- Upon receiving a sedation holiday, the patient is arousable. There is interval improvement in aeration on today's chest x-ray. He remains on assist- control mode of mechanical ventilation at rate of 28, tidal volume of 350, FiO2 50% with a PEEP of 6. Blood gas shows a pH of 7.51 with a pCO2 of 48 and pO2 of 86. Fluid balance is -3.1 L over the past 24 hours and the patient was being di uresed with IV Lasix. The patient is also on vital high-protein at rate of 51 cc an hour. Hemodynamically stable. Afebrile. Remains on broad-spectrum antibiotics. Cultures are negative. Remains on IV Solu-Medrol. Cardiac rhythm has remained sinus over the past 24 hours. Remains on amiodarone. Remains on 200 mg amiodarone twice a day and metoprolol 25 mg 3 times daily. Remains on anticoagulation with Eliquis 10/21. Patient seen and examined. Dr. Lewis took over care. Lab work done this morning showed WBC 9.2, hemoglobin 10.8, platelet count 174, sodium 141, potassium 3.8, BUN 30, creatinine 0.66. Sitting upright in the chair. Currently on 4 L of oxygen. 10/22. Patient seen and examined. Patient told continues to be very weak. Currently on 3 L of oxygen. Patient heart rate on the lower side, dose of metoprolol decreased to 25 mg twice daily 10/23. Patient seen and examined. Sitting upright in the chair. States he feels better. PT and OT recommend IPR which have been consulted 10/24. Patient seen and examined. States he is still slowly getting his strength back. Able to lift his arms better compared to yesterday. 10/25. Patient seen and examined. States he feels much better. Weakness has improved. Cardiology recommended starting patient on oral amiodarone 200 mg daily at discharge 10/26. Patient seen and examined. Patient a fall last night, x-ray of the knees that were done was negative for any fractures. Continues to be weak. REVIEW OF SYSTEMS: CONSTITUTIONAL: No fever, no malaise,. CARDIOVASCULAR: No chest pain, no palpitations, no syncope. PULMONARY: Denies chest pain GASTROINTESTINAL: No diarrhea, no nausea, no vomiting, no abdominal pain. NEUROLOGICAL: No headaches, no weakness, PHYSICAL EXAMINATION: GENERAL: The patient is alert and oriented x3, chronically ill looking HEENT: Pupils are round and equally reacting to light. EOMI. No scleral icterus. No conjunctival pallor. Normocephalic, atraumatic. No pharyngeal erythema. No thyromegaly. CARDIOVASCULAR: S1 and S2 present. No murmurs, rubs, or gallops. PULMONARY: Coarse breath sound bilaterally, no wheezing or crackles. ABDOMEN: Soft, nontender, nondistended, normoactive bowel sounds. No palpable organomegaly. MUSCULOSKELETAL: No joint swelling or deformity. EXTREMITIES: No cyanosis, clubbing, 1+ pitting edema lower extremities NEUROLOGICAL: Gross neurological examination did not reveal any focal deficits. SKIN: No rashes. Assessment and plan Acute on chronic hypoxemic respiratory failure secondary to COPD and pneumonia. Patient was on 100% nonrebreather currently requiring mechanical ventilator. Acute COPD exacerbation Bilateral pneumonia Sepsis secondary to pneumonia New onset A-fib with RVR as per EKG on admission Ongoing nicotine addiction GERD Hypertension Prior history of pneumonia Depression Marijuana use COPD on home oxygen as needed DVT prophylaxis with heparin subcu Plan: Monitor vital signs monitor CBC Monitor CMP Patient is status post bronchoscopy on 10/15/2023 Follow-up blood cultures and sputum cultures and BAL cultures. Completed course of antibiotics Continue DuoNebs and oxygen supplementation. Continue prednisone Continue Eliquis, metoprolol and amiodarone. Cardiology and pulmonary is on board. Physical medicine rehab evaluated, recommended STR Labs and medication were reviewed.. Continue same treatment. Continue with symptomatic treatment. Resume home medication. Monitor labs and vitals. DVT and GI prophylaxis. Further recommendations as per clinical course of the patient Dictation was produced using [employer] dictation software. please excuse any grammatical, word or spelling errors. Objective - Vital Signs Vital signs: Vital Signs Temp 98.9 F 10/27/23 07:05 Pulse 75 10/27/23 11:22 Resp 19 10/27/23 08:04 BP 96/63 10/27/23 07:05 Pulse Ox 98 10/27/23 07:05 FiO2 40 10/21/23 09:30 Intake & Output 10/26/23 10/27/23 10/27/23 18:59 06:59 18:59 Output Total 580 200 Balance -580 -200 Weight 80 kg Output: Urine 580 200 Other: Voiding Method Indwelling Catheter Urinal Urinal # Voids 0 ABP, PAP, CO, CI - Last Documented Arterial Blood Pressure 138/66 - Labs CBC & Chem 7: 10/25/23 06:42 10/25/23 06:42 Labs: Abnormal Lab Results - Last 24 Hours (Table) 10/26/23 10/27/23 Range/Units 17:03 12:03 POC Glucose (mg/dL) 140 H 119 H (70-110) mg/dL Microbiology - Last 24 Hours (Table) 10/21/23 14:28 Blood Culture - Final Blood 10/21/23 14:29 Blood Culture - Final Blood 10/15/23 11:10 Fungal Culture - Preliminary Bronchoalviolar Lavage - Right
[2023-10-27 16:18] LABS: Basophils % (A) 0 %; Eosinophils % (A) 0 %; HCT 36.8 % (39.0-53.0); HGB 11.4 gm/dL (13.0-17.5); Lymphocytes # (A) 0.3 k/uL (1.0-4.8); Lymphocytes % (A) 1 %; MCH 27.7 pg (25.0-35.0); MCHC 31.1 g/dL (31.0-37.0); MCV 89.1 fL (80.0-100.0); Mean Platelet Volume 9.3; Monocytes # (A) 0.9 k/uL (0-1.0); Monocytes % (A) 3 %; Neutrophils # (A) 27.2 k/uL (1.3-7.7); Neutrophils % (A) 95 %; Platelet Count 214 k/uL (150-450); RBC 4.13 m/uL (4.30-5.90); RDW 14.1 % (11.5-15.5); WBC 28.5 k/uL (3.8-10.6)
[2023-10-27 16:42] LABS: Glucose,Whole Blood 259 mg/dL (70-110)
[2023-10-27 16:56] LABS: ALT 97 U/L (4-49); AST 17 U/L (17-59); African American GFR (CKD) >90 (>60 ml/min/1.73 sqM); Albumin 2.5 g/dL (3.5-5.0); Albumin/Globulin Ratio 1.2; Alkaline Phosphatase 79 U/L (38-126); Anion Gap 6 mmol/L; Blood Urea Nitrogen 19 mg/dL (9-20); Calcium 7.7 mg/dL (8.4-10.2); Carbon Dioxide 23 mmol/L (22-30); Chloride 103 mmol/L (98-107); Globulin 2.1 g/dL; Glucose 222 mg/dL (74-99); Non-African American GFR(CKD) >90 (>60 ml/min/1.73 sqM); Potassium 3.5 mmol/L (3.5-5.1); Sodium 132 mmol/L (137-145); Total Bilirubin 0.7 mg/dL (0.2-1.3); Total Protein 4.6 g/dL (6.3-8.2)
[2023-10-27 17:07] LABS: RBC Morphology Normal
[2023-10-27 19:43] LABS: Glucose,Whole Blood 183 mg/dL (70-110)
[2023-10-27] MEDS: ALPRAZolam 0.5 MG TAB PO STA (21:07)
[2023-10-28 06:02] LABS: Glucose,Whole Blood 94 mg/dL (70-110)
[2023-10-28] MEDS ORDERED: ZINC OXIDE PASTE (Z-GUARD) 1 APPLIC TOPICAL PRN (10:45)
[2023-10-28 11:32] LABS: Glucose,Whole Blood 168 mg/dL (70-110)
[2023-10-28 13:35] LABS: Basophils % (A) 0 %; Eosinophils % (A) 0 %; HCT 34.9 % (39.0-53.0); HGB 10.7 gm/dL (13.0-17.5); Hypochromasia Slight; Lymphocytes # (A) 0.3 k/uL (1.0-4.8); Lymphocytes % (A) 1 %; MCH 27.9 pg (25.0-35.0); MCHC 30.5 g/dL (31.0-37.0); MCV 91.4 fL (80.0-100.0); Mean Platelet Volume 9.9; Monocytes # (A) 0.8 k/uL (0-1.0); Monocytes % (A) 3 %; Neutrophils # (A) 21.6 k/uL (1.3-7.7); Neutrophils % (A) 95 %; Platelet Count 216 k/uL (150-450); RBC 3.82 m/uL (4.30-5.90); RDW 14.3 % (11.5-15.5); WBC 22.8 k/uL (3.8-10.6)
[2023-10-28 13:46] LABS: ALT 66 U/L (4-49); AST 15 U/L (17-59); African American GFR (CKD) >90 (>60 ml/min/1.73 sqM); Albumin 2.8 g/dL (3.5-5.0); Albumin/Globulin Ratio 1.4; Alkaline Phosphatase 71 U/L (38-126); Anion Gap 6 mmol/L; Blood Urea Nitrogen 15 mg/dL (9-20); Calcium 8.1 mg/dL (8.4-10.2); Carbon Dioxide 23 mmol/L (22-30); Chloride 102 mmol/L (98-107); Glucose 199 mg/dL (74-99); Non-African American GFR(CKD) >90 (>60 ml/min/1.73 sqM); Potassium 3.6 mmol/L (3.5-5.1); Sodium 131 mmol/L (137-145); Total Bilirubin 0.8 mg/dL (0.2-1.3); Total Protein 4.8 g/dL (6.3-8.2)
--- NOTE | 2023-10-28 13:49 | P.PN ---
Subjective Progress Note Date: 10/28/23 63-year-old male with a past medical history of COPD on home oxygen, hypertension, chronic back pain, history of cervical fusion surgery, depression currently everyday smoker and marijuana use. Patient presents to ER with complaints of worsening shortness of breath anxiety, chills and fever. Patient was tachycardic and tachypneic on admission. States that he has subjective fevers. Cough and congestion and unable to bring out any sputum. No complaints of chest pain. No nausea vomiting abdominal pain or diarrhea. No headache or dizziness or neck stiffness. Chest x-ray showed perihilar infiltrates in the deflector lobar pneumonia. Correlate clinically and appropriate studies are recommended. EKG showed atrial fibrillation with rapid ventricular response. Patient had a cardiac catheterization on 09/14/2023 showed relatively normal coronaries and normal left sided filling pressures. Laboratory test showed WBC 23.7 hemoglobin 14.2 and platelets 265 Sodium 141 potassium 3.8 chloride 104 bicarb is 22 BUN 16 and creatinine 0.94 and blood sugar 89 and lactic acid 4.7 and magnesium 1.5 [place] Elevated procalcitonin level 2.4. Troponin x 1 negative proBNP 262 10/20/2023 Patient is seen and evaluated in room in ICU; patient remains intubated on mechanical ventilator. Paralytics have been discontinued for the past 48 hours and the patient is on propofol and fentanyl. -- Upon receiving a sedation holiday, the patient is arousable. There is interval improvement in aeration on today's chest x-ray. He remains on assist- control mode of mechanical ventilation at rate of 28, tidal volume of 350, FiO2 50% with a PEEP of 6. Blood gas shows a pH of 7.51 with a pCO2 of 48 and pO2 of 86. Fluid balance is -3.1 L over the past 24 hours and the patient was being di uresed with IV Lasix. The patient is also on vital high-protein at rate of 51 cc an hour. Hemodynamically stable. Afebrile. Remains on broad-spectrum antibiotics. Cultures are negative. Remains on IV Solu-Medrol. Cardiac rhythm has remained sinus over the past 24 hours. Remains on amiodarone. Remains on 200 mg amiodarone twice a day and metoprolol 25 mg 3 times daily. Remains on anticoagulation with Eliquis 10/21. Patient seen and examined. Dr. Lewis took over care. Lab work done this morning showed WBC 9.2, hemoglobin 10.8, platelet count 174, sodium 141, potassium 3.8, BUN 30, creatinine 0.66. Sitting upright in the chair. Currently on 4 L of oxygen. 10/22. Patient seen and examined. Patient told continues to be very weak. Currently on 3 L of oxygen. Patient heart rate on the lower side, dose of metoprolol decreased to 25 mg twice daily 10/23. Patient seen and examined. Sitting upright in the chair. States he feels better. PT and OT recommend IPR which have been consulted 10/24. Patient seen and examined. States he is still slowly getting his strength back. Able to lift his arms better compared to yesterday. 10/25. Patient seen and examined. States he feels much better. Weakness has improved. Cardiology recommended starting patient on oral amiodarone 200 mg daily at discharge 10/26. Patient seen and examined. Patient a fall last night, x-ray of the knees that were done was negative for any fractures. Continues to be weak. 10/27. Patient seen and examined. Patient white count had increased yesterday could be secondary to steroids, patient does not look toxic, no evidence of any infection. REVIEW OF SYSTEMS: CONSTITUTIONAL: No fever, no malaise,. CARDIOVASCULAR: No chest pain, no palpitations, no syncope. PULMONARY: Denies chest pain GASTROINTESTINAL: No diarrhea, no nausea, no vomiting, no abdominal pain. NEUROLOGICAL: No headaches, no weakness, PHYSICAL EXAMINATION: GENERAL: The patient is alert and oriented x3, chronically ill looking HEENT: Pupils are round and equally reacting to light. EOMI. No scleral icterus. No conjunctival pallor. Normocephalic, atraumatic. No pharyngeal erythema. No thyromegaly. CARDIOVASCULAR: S1 and S2 present. No murmurs, rubs, or gallops. PULMONARY: Coarse breath sound bilaterally, no wheezing or crackles. ABDOMEN: Soft, nontender, nondistended, normoactive bowel sounds. No palpable or ganomegaly. MUSCULOSKELETAL: No joint swelling or deformity. EXTREMITIES: No cyanosis, clubbing, 1+ pitting edema lower extremities NEUROLOGICAL: Gross neurological examination did not reveal any focal deficits. SKIN: No rashes. Assessment and plan Acute on chronic hypoxemic respiratory failure secondary to COPD and pneumonia. Patient was on 100% nonrebreather currently requiring mechanical ventilator. Acute COPD exacerbation Bilateral pneumonia Sepsis secondary to pneumonia New onset A-fib with RVR as per EKG on admission Ongoing nicotine addiction GERD Hypertension Prior history of pneumonia Depression Marijuana use COPD on home oxygen as needed DVT prophylaxis with heparin subcu Plan: Monitor vital signs monitor CBC Monitor CMP Patient is status post bronchoscopy on 10/15/2023 Follow-up blood cultures and sputum cultures and BAL cultures. Completed course of antibiotics Continue DuoNebs and oxygen supplementation. Continue prednisone Continue Eliquis, metoprolol and amiodarone. Cardiology and pulmonary is on board. Physical medicine rehab evaluated, recommended STR Labs and medication were reviewed.. Continue same treatment. Continue with symptomatic treatment. Resume home medication. Monitor labs and vitals. DVT and GI prophylaxis. Further recommendations as per clinical course of the patient Dictation was produced using [employer] dictation software. please excuse any grammatical, word or spelling errors. Objective - Vital Signs Vital signs: Vital Signs Temp 97.9 F 10/28/23 07:27 Pulse 76 10/28/23 08:05 Resp 16 10/28/23 07:27 BP 114/64 10/28/23 07:27 Pulse Ox 97 10/28/23 07:48 FiO2 40 10/21/23 09:30 Intake & Output 10/27/23 10/28/23 10/28/23 18:59 06:59 18:59 Output Total 500 400 Balance -500 -400 Weight 79.5 kg Output: Urine 500 400 Other: Voiding Method Urinal External Catheter ABP, PAP, CO, CI - Last Documented Arterial Blood Pressure 138/66 - Labs CBC & Chem 7: 10/27/23 16:06 10/27/23 16:06 Labs: Abnormal Lab Results - Last 24 Hours (Table) 10/27/23 10/27/23 10/27/23 Range/Units 12:03 16:06 16:06 WBC 28.5 H (3.8-10.6) k/uL RBC 4.13 L (4.30-5.90) m/uL Hgb 11.4 L (13.0-17.5) gm/dL Hct 36.8 L (39.0-53.0) % Neutrophils # 27.2 H (1.3-7.7) k/uL Lymphocytes # 0.3 L (1.0-4.8) k/uL Sodium 132 L (137-145) mmol/L Glucose 222 H (74-99) mg/dL POC Glucose (mg/dL) 119 H (70-110) mg/dL Calcium 7.7 L (8.4-10.2) mg/dL ALT 97 H (4-49) U/L Total Protein 4.6 L (6.3-8.2) g/dL Albumin 2.5 L (3.5-5.0) g/dL 10/27/23 10/27/23 Range/Units 16:41 19:41 WBC (3.8-10.6) k/uL RBC (4.30-5.90) m/uL Hgb (13.0-17.5) gm/dL Hct (39.0-53.0) % Neutrophils # (1.3-7.7) k/uL Lymphocytes # (1.0-4.8) k/uL Sodium (137-145) mmol/L Glucose (74-99) mg/dL POC Glucose (mg/dL) 259 H 183 H (70-110) mg/dL Calcium (8.4-10.2) mg/dL ALT (4-49) U/L Total Protein (6.3-8.2) g/dL Albumin (3.5-5.0) g/dL
--- NOTE | 2023-10-28 14:50 | P.PN ---
Subjective Progress Note Date: 10/28/23 Principal diagnosis: Acute hypoxic and hypercapnic respiratory failure secondary to acute exacerbation of COPD and bilateral pneumonia. On 10/15/2023, patient is being seen for a follow-up. The patient remains intubated on the mechanical ventilator with diffuse bilateral pulmonary filtrates, likely presenting bilateral pneumonia. This morning, the patient is on propofol at 75 mcg/kg/min and the patient is also on fentanyl at 1.5 mcg/kg/h. The patient is on assist-control mechanical ventilation at rate of 28, tidal volume of 400, FiO2 of 50% with a PEEP of 8. Peak airway pressures 32. The static airway pressure is 29. Blood gas shows a pH of 7.18 with a pCO2 of 62 and pO2 of 160. Hemodynamically, the patient remains hypotensive and currently is on norepinephrine at low-dose running at 0.04 mcg/kg/min and the patient is also on normal saline at rate of 75 cc an hour. The white cell count is at 15.3 with a hemoglobin 10.9 and a platelet count of 208. BUN is at 26 with a creatinine of 0.8 and sodium levels at 141 with a potassium level of 4.8 with a serum bicarb of 24. The chloride is at 115. The patient was receiving IV Rocephin. Cardiac rhythm is sinus. Remains on bronchodilators. Remains on steroids. Echocardiogram completed this morning a preserved LV function with an EF of around 55 to 60% without any significant valvular abnormalities. Right ventricular systolic pressure estimated to be around 38. Chest x-ray showing diffuse bilateral pulmonary infiltrates. Cultures are negative thus far. 10/16/2023, the patient is being seen for a follow-up. The patient remains sedated on propofol which is running at 75 mcg/kg/min and the patient is currently on fentanyl at 1.5 mcg/kg/h. The patient was taken off the Nimbex yesterday. Remains intubated on the mechanical ventilator. Remains on assist- control mode with rate of 20, tidal volume of 400, FiO2 of 50% with a PEEP of 8, and the patient blood gas showed pH 7.30 with a pCO2 of 47 and pO2 of 116. The bronchoscopy was done yesterday and the results of bronchial lavage are still pending. Chest x-ray showing diffuse bilateral pulm infiltrates, unchanged compared to yesterday. ET tube is in a good location. Echocardiogram was done yesterday and the patient was found to have a preserved LV function without any significant valvular abnormalities. Right ventricular systolic pressure was estimated to be at 35. No evidence of any pericardial effusion. The patient remains on Zosyn and vancomycin. Cultures are still pending for now. The patient is afebrile. The patient remains off pressors. Norepinephrine was weaned off and discontinued without any major difficulties and the patient is maintaining his own blood pressure. The patient however is on amiodarone drip at 0.5 mg/min regarding atrial fibrillation and his rate is controlled and converted into normal sinus rhythm. He remains on normal citrate of 75 cc an hour. He is on enteral feeding for nutritional support with vital high-protein at a rate of 30 cc an hour. Fluid balance is +3.1 L over the past 24 hours. On today's evaluation of 10/17/2023, seen the patient for a follow-up. Remains intubated on mechanical ventilator. This morning, the patient is on propofol running at 75 mcg/kg/min and fentanyl at 2 mcg/kg/h. The patient is also on Nimbex for paralysis as the patient was quite asynchronous with mechanical ventilator and the patient was peak pressuring yesterday Nimbex is running at 2 mcg/kg/min. The patient is currently on assist-control mode of mechanical ventilation at rate of 28, tidal volume of 350, FiO2 of 50% and PEEP of 6. The blood gas from today shows a pH of 7.24 with a pCO2 of 55 and a pO2 of 108. Chest x-ray from today shows diffuse bilateral pulmonary filtrates with some limited improvement in patient compared to yesterday. Bronchoscopy and bronchial lavage was done and the microbial culture is still pending is negative thus far and the patient remains on a combination of Zosyn and vancomycin. The vancomycin trough level was at 21. BUN is at 30 with a creatinine of 0.8 and sodium level at 144. WBC count is 8.3 with a hemoglobin 10.5 and a platelet cou nt of 201. The patient remains on vital high-protein at 30 to 45 cc an hour. Fluid balance is +3.6 L over the past 24 hours. Meanwhile, the patient had an episode of atrial fibrillation yesterday with rapid ventricular response. The patient was loaded with amiodarone and currently is back in normal sinus rhythm. Amiodarone is running at 200 mg p.o. twice a day. The patient is also on anticoagulation with Eliquis 5 mg p.o. twice a day. The patient on Toprol-XL 25 mg p.o. daily. IV Solu-Medrol was also added. On 10/18/2023, seen the patient for a follow-up. Patient remains intubated on the mechanical ventilator. On today's evaluation, the patient is on propofol at 75 mcg/kg/min and fentanyl at 2 mcg/kg/h. The patient is also paralyzed as the patient was peak pressuring yesterday. Nimbex is running at 3 mcg/kg/min. Remains on mechanical ventilator. Peak airway pressure is 30. Static airway pressure is 20. Patient is on assist-control mode at rate of 28, tidal volume of 350, fentanyl 50% with a PEEP of 6. pH is at 7.36 with a pCO2 of 54 and pO2 of 69. The chest x-ray shows increased right lower lobe pulmonary infiltration, some interval improvement in the aeration bilaterally. Orotracheal tube is in the mid location. Patient is on no pressors. The patient was started on Lasix 40 mg IV every 12 hours and the patient is negative fluid balance of 2.9 L over the past 24 hours. The patient is receiving enteral feeding for nutritional support. Antibiotic coverage is unchanged. Remains on Zosyn and vancomycin. Cultures are all negative. BUN is 43 with a creatinine of 0.8 and sodium levels at 144. WBC count 0.6 with a hemoglobin of 11.1 and a platelet count of 185. Afebrile for now. Meanwhile, the patient is having some ectopies. He did have a run of atrial fibrillation yesterday and currently is back in normal sinus rhythm and the patient is on oral amiodarone. Patient is also on metoprolol 25 mg p.o. Anticoagulation with Eliquis. 10/19/2023, the patient is being seen for a follow-up. Remains intubated on mechanical ventilator. Chest x-ray still showing diffuse bilateral pulm infiltrates. Stable compared to yesterday. No significant interval improvement in chest x-ray findings. Right ear this morning, the patient developed A-fib RVR. He will be given another bolus of amiodarone 150 mg. He is on oral amiodarone 200 mg p.o. twice a day and metoprolol 25 mg 3 times daily. Rate is under better control for now. Remains on propofol at 75 mcg/kg/min and fentanyl at 2 mcg/kg/h. He is currently off Nimbex. He is on assist-control mode with rate of 28, tidal volume of 350, 150% with a PEEP of 6. pH is at 7.44 with a pCO2 of 52 and pO2 of 84. Fluid balance -3.3 L over the past 24 hours. White cell count is at 10.9 with a hemoglobin 11.8 and platelet count of 223. Sodium is at 148, potassium 3.8, bicarb is at 35, BUN is 51 with a creatinine of 0.8. The patient is on vital high-protein for enteral feeding and nutritional support at the rate of 51 cc an hour. The patient will need a laxative for bowel movement activity. Remains on Zosyn and vancomycin. All of the cultures have been negative. 01/20/2024, patient is being seen for a follow-up. The patient remains intubated on mechanical ventilator. He is off Nimbex. Paralytics have been discontinued for the past 48 hours and the patient is on propofol and fentanyl. Propofol is at 60 mcg/kg/min and fentanyl is at 1 mcg/kg/h. Upon receiving a sedation holiday, the patient is arousable. Nevertheless, not absolutely ready to be weaned off the mechanical ventilator. There is interval improvement in aeration on today's chest x-ray. He remains on assist-control mode of mechanical ventilation at rate of 28, tidal volume of 350, FiO2 50% with a PEEP of 6. Blood gas shows a pH of 7.51 with a pCO2 of 48 and pO2 of 86. Fluid balance is -3.1 L over the past 24 hours and the patient was being diuresed with IV Lasix. The patient is also on vital high-protein at rate of 51 cc an hour. Hemodynamically stable. Afebrile. Remains on broad-spectrum antibiotics. Cultures are negative. Remains on IV Solu-Medrol. Cardiac rhythm has remained sinus over the past 24 hours. Remains on amiodarone. Remains on 200 mg amiodarone twice a day and metoprolol 25 mg 3 times daily. Remains on anticoagulation with Eliquis. 10/21/2023, the patient is on propofol at 55 mcg and fentanyl 1 mcg. Remains on a mechanical ventilator, intubated and the chest x-ray shows improvement in the aeration in both lungs. There is some residual right lower lobe pulm infiltrat e. Lines on the place. The patient remains on the mechanical ventilator assist-control mode with rate of 18, tidal volume of 350, FiO2 of 40% with a PEEP of 6. Based on morning blood gas, the patient has a pH of 7.48 with a pCO2 of 45 and pO2 of 72. Started weaning the propofol and fentanyl. Sedation holiday was given and the patient seem to be appropriate. Subsequently parameters were adequate. The patient was given a post spontaneous breathing trial with a pressure support of 5 and a PEEP of 5. Blood gas showed a pH of 7.5 with a pCO2 of 43 and pO2 of 96. The patient was accordingly extubated. The rest of the labs show a WBC count of 11, hemoglobin 10.7 and a platelet count of 190. BUN 41 with a creatinine of 0.7 and sodium levels of 146. Fluid balance is -520 cc over the past 24 hours and IV Lasix has been discontinued. The patient was also receiving enteral feeding and the patient was on vital AF at the rate of 51 cc an hour. Procalcitonin level has dropped down to 0.17. The patient is having episodes of fever. Noted all of the cultures were negative from previous evaluations. He has a triple-lumen catheter in his left IJ. His cardiac rhythm is sinus. Remains on amiodarone and metoprolol and remains on anticoagulation with Eliquis. 10/22/2023, the patient is extubated on 4 L of oxygen by nasal cannula. Sitting up in a chair. Denies having any significant respiratory distress. Chest x-ray continues to show ongoing improvement with some residual pulmonary filtrates in lung base bilaterally more so on the right. Remains on IV Zosyn. Cardiac rhythm is sinus. Awake and alert and communicating. Neuro generalized global weakness in all 4 extremities. Mental status. The sodium is at 141, BUN 36 with a creatinine of 0.66. WBC count is 11.2 with a hemoglobin 10.8. Blood sugar is slightly elevated and the patient remains on insulin sliding scale insulin coverage. The patient remains on metoprolol 25 mg p.o. 3 times daily and amiodarone 100 mg p.o. twice daily and he is also on anticoagulation with Eliquis. All of the cultures were negative. Vancomycin has been discontinued. Steroids are to be tapered. Patient was received today on 10/23/2023, patient remains in the ICU, he is on 3 L nasal cannula, patient was extubated uneventfully on 10/21/2023, he also underwent bronchoscopy on 10/15/2023. 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 Extremely weak apparently he did receive Nimbex early when he was intubated for a few days. Patient is also having diarrhea, and we are checking C. difficile screening on this patient. Patient finished a full course of Zosyn and vancomycin. X-ray is showing patchy interstitial changes and focal opacity remains at the right lung base, with slight improvement compared to previous x-rays. WBC count is 9.9 hemoglobin 11.1 basic metabolic profile is normal renal profile is normal, patient seems to be relatively asymptomatic except for his profound weakness involving his upper and lower extremities. He definitely needs physical therapy as it may take a long time to recover. Patient was reevaluated today on 10/24/2023, remains in the ICU on room air, not in any distress. Remains generally weak, and undergoing physical therapy. Patient is now off antibiotics, chest x-ray is showing significant improvement in his bilateral infiltrates/pneumonia. He is not requiring any pressors CBC is relatively normal WBC count is 9.9 hemoglobin 11.1 electrolytes are normal renal profile is normal C. difficile screen is negative. Overall the patient is doing much better however he remains to be very weak. Reevaluated today on 10/25/23, patient remains in the ICU, doing well, continues to have jaw weakness, denies any cough wheezing or shortness of breath, denies any chest pain, patient is actually on room air, and does not seem to be in any distress. Labs today were basically unremarkable including normal CBC and normal basic metabolic profile, normal renal profile Patient was reevaluated today on 10/28/2023, patient is doing great, relatively asymptomatic. Patient denies any cough wheezing or shortness of breath, dis charge planning to rehab remains in progress, and hopefully that will happen tomorrow. WBC count is 22.8 hemoglobin 10.7 basic metabolic profile is normal renal profile is normal Objective - Vital Signs Vital signs: Vital Signs Temp 98.0 F 10/28/23 14:00 Pulse 94 10/28/23 14:00 Resp 16 10/28/23 14:00 BP 93/53 10/28/23 14:00 Pulse Ox 93 L 10/28/23 14:00 FiO2 40 10/21/23 09:30 Intake & Output 10/27/23 10/28/23 10/28/23 18:59 06:59 18:59 Output Total 500 400 750 Balance -500 -400 -750 Weight 79.5 kg Output: Urine 500 400 750 Other: Voiding Method Urinal External Catheter External Catheter # Bowel Movements 1 ABP, PAP, CO, CI - Last Documented Arterial Blood Pressure 138/66 - Exam Physical exam: General: Revealed a 63-year-old white male, calm, in no distress, on room air Head: Atraumatic, normocephalic. HEENT: PERRLA, EOMI, nonicteric, no neck masses. Neck supple. Full range of motion. No masses, no JVD. Cardiovascular send S1-S2, no S3 gallop, no murmur. Lungs: Diminished breath sounds at the bases, no crackles rhonchi or wheezes Abdominal exam: Soft nontender no megaly no rebound no guarding Extremities are intact. No cyanosis clubbing or edema. Skin is without rash or lesion. Neurologic examination alert oriented x 3 but seems to be generally weak, patient was noted to have a bit more strength in his upper extremities today able to raise both arms against gravity - Labs CBC & Chem 7: 10/28/23 12:53 10/28/23 12:53 Labs: Abnormal Lab Results - Last 24 Hours (Table) 10/27/23 10/27/23 10/27/23 Range/Units 16:06 16:06 16:41 WBC 28.5 H (3.8-10.6) k/uL RBC 4.13 L (4.30-5.90) m/uL Hgb 11.4 L (13.0-17.5) gm/dL Hct 36.8 L (39.0-53.0) % MCHC (31.0-37.0) g/dL Neutrophils # 27.2 H (1.3-7.7) k/uL Lymphocytes # 0.3 L (1.0-4.8) k/uL Sodium 132 L (137-145) mmol/L Glucose 222 H (74-99) mg/dL POC Glucose (mg/dL) 259 H (70-110) mg/dL Calcium 7.7 L (8.4-10.2) mg/dL AST (17-59) U/L ALT 97 H (4-49) U/L Total Protein 4.6 L (6.3-8.2) g/dL Albumin 2.5 L (3.5-5.0) g/dL 10/27/23 10/28/23 10/28/23 Range/Units 19:41 11:31 12:53 WBC 22.8 H (3.8-10.6) k/uL RBC 3.82 L (4.30-5.90) m/uL Hgb 10.7 L (13.0-17.5) gm/dL Hct 34.9 L (39.0-53.0) % MCHC 30.5 L (31.0-37.0) g/dL Neutrophils # 21.6 H (1.3-7.7) k/uL Lymphocytes # 0.3 L (1.0-4.8) k/uL Sodium (137-145) mmol/L Glucose (74-99) mg/dL POC Glucose (mg/dL) 183 H 168 H (70-110) mg/dL Calcium (8.4-10.2) mg/dL AST (17-59) U/L ALT (4-49) U/L Total Protein (6.3-8.2) g/dL Albumin (3.5-5.0) g/dL 10/28/23 Range/Units 12:53 WBC (3.8-10.6) k/uL RBC (4.30-5.90) m/uL Hgb (13.0-17.5) gm/dL Hct (39.0-53.0) % MCHC (31.0-37.0) g/dL Neutrophils # (1.3-7.7) k/uL Lymphocytes # (1.0-4.8) k/uL Sodium 131 L (137-145) mmol/L Glucose 199 H (74-99) mg/dL POC Glucose (mg/dL) (70-110) mg/dL Calcium 8.1 L (8.4-10.2) mg/dL AST 15 L (17-59) U/L ALT 66 H (4-49) U/L Total Protein 4.8 L (6.3-8.2) g/dL Albumin 2.8 L (3.5-5.0) g/dL Assessment and Plan Assessment: Impression: Acute hypoxic and hypercapnic respiratory failure requiring mechanical ventilation, patient was intubated on 10/14 and extubated on 10/20. Acute exacerbation of COPD, and underlying community-acquired or aspiration pneumonia. Hypotension, likely septic in nature and the patient is currently off pressors Paroxysmal A-fib, presently on oral amiodarone. And on Toprol-XL Previous history of pseudomonal growth in the sputum rule out pseudomonal tracheal bronchitis/pneumonia. 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 Patient is off antibiotics Continue bronchodilators and continue tapering of the prednisone Will clear the patient for discharge to rehab if cleared by other consultants will follow as needed. Continue GI DVT prophylaxis Time with Patient: Less than 30
[2023-10-28 16:35] LABS: Glucose,Whole Blood 234 mg/dL (70-110)
[2023-10-28 19:54] LABS: Glucose,Whole Blood 225 mg/dL (70-110)
[2023-10-29 03:14] LABS: Glucose,Whole Blood 164 mg/dL (70-110)
[2023-10-29 06:03] LABS: Glucose,Whole Blood 117 mg/dL (70-110)
[2023-10-29] MEDS: predniSONE 10 MG TAB PO SCH (07:54)
[2023-10-29 08:42] LABS: Basophils # (A) 0.02 X 10*3/uL (0.00-0.10); Basophils % (A) 0.1 %; Eosinophils # (A) 0.02 X 10*3/uL (0.04-0.35); Eosinophils % (A) 0.1 %; HCT 30.8 % (39.6-50.0); HGB 9.7 g/dL (13.0-17.0); Lymphocytes # (A) 1.29 X 10*3/uL (0.90-5.00); Lymphocytes % (A) 6.1 %; MCH 27.6 pg (27.0-32.0); MCHC 31.5 g/dL (32.0-37.0); MCV 87.7 FL (80.0-97.0); Mean Platelet Volume 11.6 FL (9.5-12.2); Monocytes # (A) 1.15 X 10*3/uL (0.20-1.00); Monocytes % (A) 5.4 %; NRBC Per 100 WBC 0 X 10*3/uL (0.00-0.01); Neutrophils # (A) 18.51 X 10*3/uL (1.80-7.70); Neutrophils % (A) 87.2 %; Platelet Count 194 X 10*3/uL (140-440); RBC 3.51 X 10*6/uL (4.40-5.60); RDW 14.9 % (11.5-14.5); WBC 21.22 X 10*3/uL (4.50-10.00)
[2023-10-29 08:59] LABS: ALT 56 U/L (10-49); AST 13 U/L (14-35); Albumin 2.9 g/dL (3.8-4.9); Albumin/Globulin Ratio 1.71 Ratio (1.60-3.17); Alkaline Phosphatase 73 U/L (41-126); BUN/Creat Ratio 13.75 Ratio (12.00-20.00); Calcium 7.8 mg/dL (8.7-10.3); Carbon Dioxide 23.5 mmol/L (21.6-31.8); Chloride 103 mmol/L (96-109); Globulin 1.7 g/dL (1.6-3.3); Glucose 109 mg/dL (70-110); Potassium 3.8 mmol/L (3.5-5.5); Sodium 137 mmol/L (135-145); Total Bilirubin 0.3 mg/dL (0.3-1.2); Total Protein 4.6 g/dL (6.2-8.2)
[2023-10-29 11:10] LABS: Glucose,Whole Blood 108 mg/dL (70-110)
--- NOTE | 2023-10-29 13:27 | P.DS ---
Providers Date of admission: 10/12/23 17:59 Expected date of discharge: 10/29/23 Attending physician: Eva Saba Consults: 10/13/23 09:04 Consult Physician Routine Consulting Provider: Rui Norwood Consult Reason/Comments: copd, pna Do you want consulting provider notified?: Yes 10/13/23 22:46 Consult Physician Routine Consulting Provider: Tani Knight Consult Reason/Comments: Afib Do you want consulting provider notified?: Yes, Notify in am 10/24/23 13:28 Consult Physician Routine Consulting Provider: Alfredo Kim Consult Reason/Comments: Acute rehab Do you want consulting provider notified?: Yes Primary care physician: Joseph Granger MD Hospital Course: Discharge diagnoses; Acute on chronic hypoxemic respiratory failure secondary to COPD and pneumonia. Acute COPD exacerbation Bilateral pneumonia Sepsis secondary to pneumonia New onset A-fib with RVR as per EKG on admission Ongoing nicotine addiction GERD Hypertension Prior history of pneumonia Depression Marijuana use COPD on home oxygen as needed Hospital course; 63-year-old male with a past medical history of COPD on home oxygen, hypertension, chronic back pain, history of cervical fusion surgery, depression currently everyday smoker and marijuana use. Patient presents to ER with complaints of worsening shortness of breath anxiety, chills and fever. Patient was tachycardic and tachypneic on admission. States that he has subjective fevers. Cough and congestion and unable to bring out any sputum. No complaints of chest pain. No nausea vomiting abdominal pain or diarrhea. No headache or dizziness or neck stiffness. Chest x-ray showed perihilar infiltrates in the deflector lobar pneumonia. Correlate clinically and appropriate studies are recommended. EKG showed atrial fibrillation with rapid ventricular response. Patient had a cardiac catheterization on 09/14/2023 showed relatively normal coronaries and normal left sided filling pressures. Laboratory test showed WBC 23.7 hemoglobin 14.2 and platelets 265 Sodium 141 potassium 3.8 chloride 104 bicarb is 22 BUN 16 and creatinine 0.94 and blood sugar 89 and lactic acid 4.7 and magnesium 1.5 [place] Elevated procalcitonin level 2.4. Troponin x 1 negative proBNP 262 10/20/2023 Patient is seen and evaluated in room in ICU; patient remains intubated on mechanical ventilator. Paralytics have been discontinued for the past 48 hours and the patient is on propofol and fentanyl. -- Upon receiving a sedation holiday, the patient is arousable. There is interval improvement in aeration on today's chest x-ray. He remains on assist- control mode of mechanical ventilation at rate of 28, tidal volume of 350, FiO2 50% with a PEEP of 6. Blood gas shows a pH of 7.51 with a pCO2 of 48 and pO2 of 86. Fluid balance is -3.1 L over the past 24 hours and the patient was being diuresed with IV Lasix. The patient is also on vital high-protein at rate of 51 cc an hour. Hemodynamically stable. Afebrile. Remains on broad-spectrum antibiotics. Cultures are negative. Remains on IV Solu-Medrol. Cardiac rhythm has remained sinus over the past 24 hours. Remains on amiodarone. Remains on 200 mg amiodarone twice a day and metoprolol 25 mg 3 times daily. Remains on anticoagulation with Eliquis 10/21. Patient seen and examined. Dr. Lewis took over care. Lab work done this morning showed WBC 9.2, hemoglobin 10.8, platelet count 174, sodium 141, potassium 3.8, BUN 30, creatinine 0.66. Sitting upright in the chair. Currently on 4 L of oxygen. 10/22. Patient seen and examined. Patient told continues to be very weak. Currently on 3 L of oxygen. Patient heart rate on the lower side, dose of metoprolol decreased to 25 mg twice daily 10/23. Patient seen and examined. Sitting upright in the chair. States he feels better. PT and OT recommend IPR which have been consulted 10/24. Patient seen and examined. States he is still slowly getting his strength back. Able to lift his arms better compared to yesterday. 10/25. Patient seen and examined. States he feels much better. Weakness has improved. Cardiology recommended starting patient on oral amiodarone 200 mg mara looney at discharge 10/26. Patient seen and examined. Patient a fall last night, x-ray of the knees that were done was negative for any fractures. Continues to be weak. 10/27. Patient seen and examined. Patient white count had increased yesterday could be secondary to steroids, patient does not look toxic, no evidence of any infection. 10/28. Patient seen and examined. Pulmonology and cardiology cleared the patient for discharge. Patient does not want to go to rehab, wants to be discharged home with home care PHYSICAL EXAMINATION: GENERAL: The patient is alert and oriented x3, ill looking HEENT: Pupils are round and equally reacting to light. EOMI. No scleral icterus. No conjunctival pallor. Normocephalic, atraumatic. No pharyngeal erythema. No thyromegaly. CARDIOVASCULAR: S1 and S2 present. No murmurs, rubs, or gallops. PULMONARY: Coarse breath sound bilaterally, no wheezing or crackles. ABDOMEN: Soft, nontender, nondistended, normoactive bowel sounds. No palpable organomegaly. MUSCULOSKELETAL: No joint swelling or deformity. EXTREMITIES: No cyanosis, clubbing, or pedal edema. NEUROLOGICAL: Gross neurological examination did not reveal any focal deficits. SKIN: No rashes. Dictation was produced using [employer] dictation software. please excuse any grammatical, word or spelling errors. Patient Condition at Discharge: Good Plan - Discharge Summary New Discharge Prescriptions: New Amiodarone [Cordarone] 200 mg PO DAILY #30 tab Apixaban [Eliquis] 5 mg PO BID 30 Days #60 tab Baclofen [Lioresal] 5 mg PO BID 15 Days #30 tab Atorvastatin [Lipitor] 20 mg PO DAILY 30 Days #30 tab Metoprolol Tartrate [Lopressor] 25 mg PO BID 30 Days #60 tab Continue DULoxetine HCL [Cymbalta] 60 mg PO DAILY DULoxetine HCL [Cymbalta] 30 mg PO HS Tamsulosin [Flomax] 0.4 mg PO DAILY HYDROcodone/APAP 7.5-325MG [[place] 7.5-325] 1 tab PO BID PRN PRN Reason: Pain Ipratropium-Albuterol Nebulize [Duoneb 0.5 mg-3 mg/3 ml Soln] 3 ml INHALATION RT-Q6H PRN PRN Reason: Shortness Of Breath Albuterol Sulfate [Albuterol Sulfate Hfa] 2 puff PO RT-QID PRN PRN Reason: Shortness Of Breath Discontinued Metoprolol Succinate [Metoprolol Succinate ER] 12.5 mg PO DAILY Baclofen [Lioresal] 20 mg PO TID amLODIPine BESYLATE [Amlodipine Besylate] 2.5 mg PO DAILY Discharge Medication List DULoxetine HCL [Cymbalta] 60 mg PO DAILY 04/15/22 [History] DULoxetine HCL [Cymbalta] 30 mg PO HS 05/10/23 [History] HYDROcodone/APAP 7.5-325MG [[place] 7.5-325] 1 tab PO BID PRN 05/10/23 [History] Tamsulosin [Flomax] 0.4 mg PO DAILY 05/10/23 [History] Albuterol Sulfate [Albuterol Sulfate Hfa] 2 puff PO RT-QID PRN 10/12/23 [History] Ipratropium-Albuterol Nebulize [Duoneb 0.5 mg-3 mg/3 ml Soln] 3 ml INHALATION RT-Q6H PRN 10/12/23 [History] Amiodarone [Cordarone] 200 mg PO DAILY #30 tab 10/26/23 [Rx] Apixaban [Eliquis] 5 mg PO BID 30 Days #60 tab 10/29/23 [Rx] Atorvastatin [Lipitor] 20 mg PO DAILY 30 Days #30 tab 10/29/23 [Rx] Baclofen [Lioresal] 5 mg PO BID 15 Days #30 tab 10/29/23 [Rx] Metoprolol Tartrate [Lopressor] 25 mg PO BID 30 Days #60 tab 10/29/23 [Rx] Follow up Appointment(s)/Referral(s): Joseph Granger MD [Primary Care Provider] - 1-2 days Rui Norwood DO [Doctor of Osteopathic Medicine] - 1 Week Dameon Joseph DO [STAFF PHYSICIAN] - 1 Week Discharge Disposition: HOME WITH HOME HEALTH SERVICES
--- NOTE | 2023-10-29 14:39 | P.PN ---
Subjective Progress Note Date: 10/29/23 The patient is seen today October 26, 2023 in follow-up on the regular medical floor. He was transferred out of the intensive care unit. He is currently sitting up in a chair at the bedside. Awake and alert in no acute distress. He is a bit stronger today compared to yesterday. Still very weak. Still unable to walk. Is maintaining good O2 saturations in the 90s on room air. Has been afebrile. Hemodynamically stable. Blood cultures revealed no growth. Bronchoalveolar lavage revealed no growth. Glucose 117. He remains on DuoNeb ventilations, Pulmicort and performing scintillations, prednisone taper. He is anticoagulated with Eliquis. The patient is seen today October 27, 2023 in follow-up on the regular medical floor. He is awake and alert in no acute distress. Sitting up in a chair at the bedside. He denies any worsening shortness of breath, cough or congestion. Maintaining good O2 saturations in the upper 90s on room air. He is been afebrile. Hemodynamically stable. Currently last evening he was trying to use a urinal while in the chair and slid off the chair onto the ground hitting his knees. His was in the room at the time. X-rays revealed no evidence of fracture. He is feeling better today. Glucose 119. He remains on DuoNeb ventilations, Pulmicort and Perforomist inhalations, prednisone taper. Anticoagulated with Eliquis. The patient is seen today October 29, 2023 in follow-up on the regular medical floor. He is currently resting quite comfortably in bed. Awake and alert in no acute distress. No worsening shortness of breath, cough or congestion. He is maintaining O2 saturations in the 90s on room air. He is afebrile he is hemodynamically stable. Remains quite weak. Continued on bronchodilators and steroids. Anticoagulated with Eliquis. White count 21.2. Hemoglobin 9.7. Platelets 194. Odium 137. Potassium 3.8. Bicarb 24. BUN 11. Creatinine 0.8. Glucose 109. Objective - Vital Signs Vital signs: Vital Signs Temp 98.6 F 10/29/23 07:48 Pulse 77 10/29/23 07:48 Resp 18 10/29/23 11:12 BP 107/67 10/29/23 07:48 Pulse Ox 97 10/29/23 07:48 FiO2 40 10/21/23 09:30 Intake & Output 10/28/23 10/29/23 10/29/23 18:59 06:59 18:59 Intake Total 500 Output Total 1700 Balance -1700 500 Weight 82.5 kg Intake: Oral 500 Output: Urine 1700 Other: Voiding Method External Catheter External Catheter External Catheter # Bowel Movements 1 ABP, PAP, CO, CI - Last Documented Arterial Blood Pressure 138/66 - Exam GENERAL EXAM: Alert, pleasant 63-year-old male, on room air, in no apparent distress. HEAD: Normocephalic. EYES: Normal reaction of pupils, equal size. NOSE: Clear with pink turbinates. THROAT: No erythema or exudates. NECK: No masses, no JVD. CHEST: No chest wall deformity. LUNGS: Equal air entry with crackles in the right lung base. CVS: S1 and S2 normal with no audible murmur, regular rhythm. ABDOMEN: No hepatosplenomegaly, normal bowel sounds, no guarding or rigidity. SPINE: No scoliosis or deformity SKIN: No rashes CENTRAL NERVOUS SYSTEM: Generalized weakness but no focal deficits, tone is normal in all 4 extremities. EXTREMITIES: There is no peripheral edema. No clubbing, no cyanosis. Peripheral pulses are intact. - Labs CBC & Chem 7: 10/29/23 06:08 10/29/23 06:08 Labs: Abnormal Lab Results - Last 24 Hours (Table) 10/28/23 10/28/23 10/29/23 Range/Units 16:33 19:52 03:13 WBC (4.50-10.00) X 10*3/uL RBC (4.40-5.60) X 10*6/uL Hgb (13.0-17.0) g/dL Hct (39.6-50.0) % MCHC (32.0-37.0) g/dL RDW (11.5-14.5) % Immature Gran # (0.00-0.04) X 10*3/uL Neutrophils # (1.80-7.70) X 10*3/uL Monocytes # (0.20-1.00) X 10*3/uL Eosinophils # (0.04-0.35) X 10*3/uL POC Glucose (mg/dL) 234 H 225 H 164 H (70-110) mg/dL Calcium (8.7-10.3) mg/dL AST (14-35) U/L ALT (10-49) U/L Total Protein (6.2-8.2) g/dL Albumin (3.8-4.9) g/dL 10/29/23 10/29/23 10/29/23 Range/Units 06:01 06:08 06:08 WBC 21.22 H (4.50-10.00) X 10*3/uL RBC 3.51 L (4.40-5.60) X 10*6/uL Hgb 9.7 L (13.0-17.0) g/dL Hct 30.8 L (39.6-50.0) % MCHC 31.5 L (32.0-37.0) g/dL RDW 14.9 H (11.5-14.5) % Immature Gran # 0.23 H (0.00-0.04) X 10*3/uL Neutrophils # 18.51 H (1.80-7.70) X 10*3/uL Monocytes # 1.15 H (0.20-1.00) X 10*3/uL Eosinophils # 0.02 L (0.04-0.35) X 10*3/uL POC Glucose (mg/dL) 117 H (70-110) mg/dL Calcium 7.8 L (8.7-10.3) mg/dL AST 13 L (14-35) U/L ALT 56 H (10-49) U/L Total Protein 4.6 L (6.2-8.2) g/dL Albumin 2.9 L (3.8-4.9) g/dL Assessment and Plan Assessment: Acute hypoxic and hypercapnic respiratory failure requiring mechanical ventilation, patient was intubated on 10/14 and extubated on 10/20. Recovered and on room air Acute exacerbation of COPD, and suspect underlying pneumonia, community- acquired or could be aspiration related. Completed antibiotics Hypotension, likely septic in nature and the patient is currently off pressors Paroxysmal A-fib, anticoagulated with Eliquis Previous history of pseudomonal growth in the sputum rule out pseudomonal tracheal bronchitis/pneumonia. Pleated antibiotics Chronic and ongoing tobacco dependence of nearly 50 years History of alcoholism Marijuana use History of depression Critical illness probably neuromyopathy Plan: The patient was seen and evaluated Labs and medications reviewed Currently stable and on room air Patient now requesting to go home versus inpatient rehab Plan is for home with home care I have personally seen and examined the patient, performed the documentation and the assessment and plan as written. Number of minutes spent on the visit: 10.
[2023-10-29 16:28] LABS: Glucose,Whole Blood 172 mg/dL (70-110)
[2023-10-29 21:06] LABS: Glucose,Whole Blood 115 mg/dL (70-110)
[2023-10-30 05:36] LABS: Glucose,Whole Blood 91 mg/dL (70-110)
[2023-10-30 11:16] LABS: Glucose,Whole Blood 88 mg/dL (70-110)
[2023-10-30 11:57] VITALS: BMI 27.0
--- NOTE | 2023-10-30 11:57 | P.PN ---
Subjective Progress Note Date: 10/30/23 The patient is seen today October 26, 2023 in follow-up on the regular medical floor. He was transferred out of the intensive care unit. He is currently sitting up in a chair at the bedside. Awake and alert in no acute distress. He is a bit stronger today compared to yesterday. Still very weak. Still unable to walk. Is maintaining good O2 saturations in the 90s on room air. Has been afebrile. Hemodynamically stable. Blood cultures revealed no growth. Bronchoalveolar lavage revealed no growth. Glucose 117. He remains on DuoNeb ventilations, Pulmicort and performing scintillations, prednisone taper. He is anticoagulated with Eliquis. The patient is seen today October 27, 2023 in follow-up on the regular medical floor. He is awake and alert in no acute distress. Sitting up in a chair at the bedside. He denies any worsening shortness of breath, cough or congestion. Maintaining good O2 saturations in the upper 90s on room air. He is been afebrile. Hemodynamically stable. Currently last evening he was trying to use a urinal while in the chair and slid off the chair onto the ground hitting his knees. His was in the room at the time. X-rays revealed no evidence of fracture. He is feeling better today. Glucose 119. He remains on DuoNeb ventilations, Pulmicort and Perforomist inhalations, prednisone taper. Anticoagulated with Eliquis. The patient is seen today October 29, 2023 in follow-up on the regular medical floor. He is currently resting quite comfortably in bed. Awake and alert in no acute distress. No worsening shortness of breath, cough or congestion. He is maintaining O2 saturations in the 90s on room air. He is afebrile he is hemodynamically stable. Remains quite weak. Continued on bronchodilators and steroids. Anticoagulated with Eliquis. White count 21.2. Hemoglobin 9.7. Platelets 194. Odium 137. Potassium 3.8. Bicarb 24. BUN 11. Creatinine 0.8. Glucose 109. The patient is seen today October 30, 2023 in follow-up on the regular medical floor. He is resting comfortably in bed. Awake and alert in no acute distress. Maintaining O2 saturations in the 90s on room air. No IV fluids. Follow-up blood cultures revealed no growth. Glucose 88. The plan now is for inpatient rehabilitation at discharge Objective - Vital Signs Vital signs: Vital Signs Temp 98.0 F 10/30/23 06:40 Pulse 70 10/30/23 11:49 Resp 18 10/30/23 11:49 BP 128/70 10/30/23 06:40 Pulse Ox 98 10/30/23 09:02 FiO2 40 10/21/23 09:30 Intake & Output 10/29/23 10/30/23 10/30/23 18:59 06:59 18:59 Intake Total 1000 Output Total 300 700 Balance 700 -700 Weight 83 kg Intake: Oral 1000 Output: Urine 300 700 Other: Voiding Method External Catheter External Catheter External Catheter ABP, PAP, CO, CI - Last Documented Arterial Blood Pressure 138/66 - Exam GENERAL EXAM: Alert, pleasant 63-year-old male, seen comfortably in bed, on room air, in no apparent distress. HEAD: Normocephalic. EYES: Normal reaction of pupils, equal size. NOSE: Clear with pink turbinates. THROAT: No erythema or exudates. NECK: No masses, no JVD. CHEST: No chest wall deformity. LUNGS: Equal air entry with crackles in the right lung base. CVS: S1 and S2 normal with no audible murmur, regular rhythm. ABDOMEN: No hepatosplenomegaly, normal bowel sounds, no guarding or rigidity. SPINE: No scoliosis or deformity SKIN: No rashes CENTRAL NERVOUS SYSTEM: Generalized weakness but no focal deficits, tone is normal in all 4 extremities. EXTREMITIES: There is no peripheral edema. No clubbing, no cyanosis. Peripheral pulses are intact. - Labs CBC & Chem 7: 10/29/23 06:08 10/29/23 06:08 Labs: Abnormal Lab Results - Last 24 Hours (Table) 10/29/23 10/29/23 Range/Units 16:27 21:04 POC Glucose (mg/dL) 172 H 115 H (70-110) mg/dL Assessment and Plan Assessment: Acute hypoxic and hypercapnic respiratory failure requiring mechanical ventilation, patient was intubated on 10/14 and extubated on 10/20. Recovered and on room air Acute exacerbation of COPD, and suspect underlying pneumonia, community- acquired or could be aspiration related. Completed antibiotics Hypotension, likely septic in nature and the patient is currently off pressors Paroxysmal A-fib, anticoagulated with Eliquis Previous history of pseudomonal growth in the sputum rule out pseudomonal tracheal bronchitis/pneumonia. Pleated antibiotics Chronic and ongoing tobacco dependence of nearly 50 years History of alcoholism Marijuana use History of depression Critical illness probably neuromyopathy Plan: The patient was seen and evaluated Labs and medications reviewed Currently stable and on room air Plan now is for inpatient rehabilitation I have personally seen and examined the patient, performed the documentation and the assessment and plan as written. Number of minutes spent on the visit: 10.
--- NOTE | 2023-10-30 12:09 | P.PN ---
Subjective Progress Note Date: 10/30/23 63-year-old male with a past medical history of COPD on home oxygen, hypertension, chronic back pain, history of cervical fusion surgery, depression currently everyday smoker and marijuana use. Patient presents to ER with complaints of worsening shortness of breath anxiety, chills and fever. Patient was tachycardic and tachypneic on admission. States that he has subjective fevers. Cough and congestion and unable to bring out any sputum. No complaints of chest pain. No nausea vomiting abdominal pain or diarrhea. No headache or dizziness or neck stiffness. Chest x-ray showed perihilar infiltrates in the deflector lobar pneumonia. Correlate clinically and appropriate studies are recommended. EKG showed atrial fibrillation with rapid ventricular response. Patient had a cardiac catheterization on 09/14/2023 showed relatively normal coronaries and normal left sided filling pressures. Laboratory test showed WBC 23.7 hemoglobin 14.2 and platelets 265 Sodium 141 potassium 3.8 chloride 104 bicarb is 22 BUN 16 and creatinine 0.94 and blood sugar 89 and lactic acid 4.7 and magnesium 1.5 [place] Elevated procalcitonin level 2.4. Troponin x 1 negative proBNP 262 10/20/2023 Patient is seen and evaluated in room in ICU; patient remains intubated on mechanical ventilator. Paralytics have been discontinued for the past 48 hours and the patient is on propofol and fentanyl. -- Upon receiving a sedation holiday, the patient is arousable. There is interval improvement in aeration on today's chest x-ray. He remains on assist- control mode of mechanical ventilation at rate of 28, tidal volume of 350, FiO2 50% with a PEEP of 6. Blood gas shows a pH of 7.51 with a pCO2 of 48 and pO2 of 86. Fluid balance is -3.1 L over the past 24 hours and the patient was being di uresed with IV Lasix. The patient is also on vital high-protein at rate of 51 cc an hour. Hemodynamically stable. Afebrile. Remains on broad-spectrum antibiotics. Cultures are negative. Remains on IV Solu-Medrol. Cardiac rhythm has remained sinus over the past 24 hours. Remains on amiodarone. Remains on 200 mg amiodarone twice a day and metoprolol 25 mg 3 times daily. Remains on anticoagulation with Eliquis 10/21. Patient seen and examined. Dr. Lewis took over care. Lab work done this morning showed WBC 9.2, hemoglobin 10.8, platelet count 174, sodium 141, potassium 3.8, BUN 30, creatinine 0.66. Sitting upright in the chair. Currently on 4 L of oxygen. 10/22. Patient seen and examined. Patient told continues to be very weak. Currently on 3 L of oxygen. Patient heart rate on the lower side, dose of metoprolol decreased to 25 mg twice daily 10/23. Patient seen and examined. Sitting upright in the chair. States he feels better. PT and OT recommend IPR which have been consulted 10/24. Patient seen and examined. States he is still slowly getting his strength back. Able to lift his arms better compared to yesterday. 10/25. Patient seen and examined. States he feels much better. Weakness has improved. Cardiology recommended starting patient on oral amiodarone 200 mg daily at discharge 10/26. Patient seen and examined. Patient a fall last night, x-ray of the knees that were done was negative for any fractures. Continues to be weak. 10/27. Patient seen and examined. Patient white count had increased yesterday could be secondary to steroids, patient does not look toxic, no evidence of any infection. 10/29. Patient seen and examined. Patient was initially supposed to be discharged home but patient changes mind and wants to go to rehab, currently waiting on rehab placement REVIEW OF SYSTEMS: CONSTITUTIONAL: No fever, no malaise,. CARDIOVASCULAR: No chest pain, no palpitations, no syncope. PULMONARY: Denies chest pain GASTROINTESTINAL: No diarrhea, no nausea, no vomiting, no abdominal pain. NEUROLOGICAL: No headaches, no weakness, PHYSICAL EXAMINATION: GENERAL: The patient is alert and oriented x3, chronically ill looking HEENT: Pupils are round and equally reacting to light. EOMI. No scleral icterus. No conjunctival pallor. Normocephalic, atraumatic. No pharyngeal erythema. No thyromegaly. CARDIOVASCULAR: S1 and S2 present. No murmurs, rubs, or gallops. PULMONARY: Coarse breath sound bilaterally, no wheezing or crackles. ABDOMEN: Soft, nontender, nondistended, normoactive bowel sounds. No palpable organomegaly. MUSCULOSKELETAL: No joint swelling or deformity. EXTREMITIES: No cyanosis, clubbing, 1+ pitting edema lower extremities NEUROLOGICAL: Gross neurological examination did not reveal any focal deficits. SKIN: No rashes. Assessment and plan Acute on chronic hypoxemic respiratory failure secondary to COPD and pneumonia. Patient was on 100% nonrebreather currently requiring mechanical ventilator. Acute COPD exacerbation Bilateral pneumonia Sepsis secondary to pneumonia New onset A-fib with RVR as per EKG on admission Ongoing nicotine addiction GERD Hypertension Prior history of pneumonia Depression Marijuana use COPD on home oxygen as needed DVT prophylaxis with heparin subcu Plan: Monitor vital signs monitor CBC Monitor CMP Patient is status post bronchoscopy on 10/15/2023 Follow-up blood cultures and sputum cultures and BAL cultures. Completed course of antibiotics Continue DuoNebs and oxygen supplementation. Completed prednisone Continue Eliquis, metoprolol and amiodarone. Currently waiting on rehab placement Labs and medication were reviewed.. Continue same treatment. Continue with symptomatic treatment. Resume home medication. Monitor labs and vitals. DVT and GI prophylaxis. Further recommendations as per clinical course of the patient Dictation was produced using [employer] dictation software. please excuse any grammatical, word or spelling errors. Objective - Vital Signs Vital signs: Vital Signs Temp 98.0 F 10/30/23 06:40 Pulse 64 10/30/23 08:00 Resp 16 10/30/23 08:00 BP 128/70 10/30/23 06:40 Pulse Ox 98 10/30/23 09:02 FiO2 40 10/21/23 09:30 Intake & Output 10/29/23 10/30/23 10/30/23 18:59 06:59 18:59 Intake Total 1000 Output Total 300 700 Balance 700 -700 Weight 83 kg Intake: Oral 1000 Output: Urine 300 700 Other: Voiding Method External Catheter External Catheter External Catheter ABP, PAP, CO, CI - Last Documented Arterial Blood Pressure 138/66 - Labs CBC & Chem 7: 10/29/23 06:08 10/29/23 06:08 Labs: Abnormal Lab Results - Last 24 Hours (Table) 10/29/23 10/29/23 Range/Units 16:27 21:04 POC Glucose (mg/dL) 172 H 115 H (70-110) mg/dL
[2023-10-30 15:03] VITALS: BP 117/75; PULSE 98; RESP 17; TEMP 97.4
== END 2023-10-30 16:05 | DRG 720 ==
LOC: EC 13:29 → 3SCARD 17:59 → 2SICU 10-14 16:23 → 4SSUR 10-25 19:51
PROVIDERS: ADMIT Hospitalist; ATTEND Hospitalist
DX: A41.9 Sepsis, unspecified organism (principal); E86.0 Dehydration; E87.20 Acidosis, unspecified; E87.6 Hypokalemia; F17.210 Nicotine dependence, cigarettes, uncomplicated; F32.A Depression, unspecified; F41.9 Anxiety disorder, unspecified; G62.81 Critical illness polyneuropathy; G70.9 Myoneural disorder, unspecified; I11.0 Hypertensive heart disease with heart failure; I47.20 Ventricular tachycardia, unspecified; I48.19 Other persistent atrial fibrillation; I50.32 Chronic diastolic (congestive) heart failure; I95.9 Hypotension, unspecified; F10.21 Alcohol dependence, in remission; Z99.81 Dependence on supplemental oxygen; R65.20 Severe sepsis without septic shock; J18.9 Pneumonia, unspecified organism; J44.0 Chronic obstructive pulmonary disease with (acute) lower respiratory infection; J44.1 Chronic obstructive pulmonary disease with (acute) exacerbation; J96.21 Acute and chronic respiratory failure with hypoxia; J96.22 Acute and chronic respiratory failure with hypercapnia; K21.9 Gastro-esophageal reflux disease without esophagitis; Z71.3 Dietary counseling and surveillance; Z91.81 History of falling; T38.0X5A Adverse effect of glucocorticoids and synthetic analogues, initial encounter; D72.829 Elevated white blood cell count, unspecified; Z79.01 Long term (current) use of anticoagulants; G89.29 Other chronic pain; Z79.899 Other long term (current) drug therapy; Z87.01 Personal history of pneumonia (recurrent); Z98.1 Arthrodesis status; Z79.51 Long term (current) use of inhaled steroids; Z20.822 Contact with and (suspected) exposure to COVID-19; Z28.21 Immunization not carried out because of patient refusal
CPT/HCPCS: 36410; 36415; 36600; 71045; 76937; 80048; 80053; 80202; 81001; 82150; 82550; 82565; 82805; 83036; 83605; 83690; 83735; 83880; 84132; 84145; 84450; 84460; 84484; 85025; 85027; 85610; 85730; 86606; 87040; 87070; 87102; 87116; 87205; 87206; 87324; 87449; 87496; 87498; 87502; 87529; 87634; 87635; 87636; 87798; 93005; 93306; 94002; 94003; 94640; 94760; 96361; 96365; 96366; 96367; 96368; 96372; 96375; 99291

== ENCOUNTER 2023-11-24 14:36 | Inpatient (IN) | payer OTHER ==
[2023-11-24] MEDS: LORazepam 2 MG/ML INJ IV STA (15:11)
[2023-11-24 15:16] LABS: Basophils # (A) 0.1 k/uL (0-0.2); Basophils % (A) 0 %; Eosinophils # (A) 0.1 k/uL (0-0.7); Eosinophils % (A) 0 %; HGB 10.4 gm/dL (13.0-17.5); Hypochromasia Moderate; Lymphocytes # (A) 1.5 k/uL (1.0-4.8); Lymphocytes % (A) 13 %; MCH 27.9 pg (25.0-35.0); MCHC 31.5 g/dL (31.0-37.0); MCV 88.7 fL (80.0-100.0); Mean Platelet Volume 8.4; Monocytes # (A) 0.8 k/uL (0-1.0); Monocytes % (A) 7 %; Neutrophils # (A) 8.6 k/uL (1.3-7.7); Neutrophils % (A) 78 %; Platelet Count 333 k/uL (150-450); RBC 3.73 m/uL (4.30-5.90); RDW 15.3 % (11.5-15.5); WBC 11.1 k/uL (3.8-10.6)
[2023-11-24 15:25] LABS: INR 0.9 (<1.2); Partial Thromboplastin Time 27.1 sec (22.0-30.0); Prothrombin Time 10.5 sec (10.0-12.5)
--- NOTE | 2023-11-24 15:28 | ED ---
General Adult HPI - General Chief complaint: Shortness of Breath Stated complaint: Sob/sweats Time Seen by Provider: 11/24/23 14:45 Source: patient Mode of arrival: ambulatory Limitations: no limitations - History of Present Illness Initial comments: Dictation was produced using [employer] dictation software. please excuse any grammatical, word or spelling errors. Chief Complaint: 63-year-old male presents to the emergency department for shortness of breath and leg swelling History of Present Illness: Patient 63-year-old male presents with shortness of breath and leg swelling. Patient has been having ongoing symptoms for the last couple days. at the bedside states that last time he was like this he ended up in the ICU on a ventilator with pneumonia. Patient denies any cough. States that he feels a little diaphoretic but denies any fever or chills. states that patient seems very uneasy. Patient denies any drug use. Denies any alcoholism. The ROS documented in this emergency department record has been reviewed and confirmed by me. Those systems with pertinent positive or negative responses have been documented in the HPI. All other systems are other negative and/or noncontributory. - Related Data Home Medications Medication Instructions Recorded Confirmed DULoxetine HCL [Cymbalta] 60 mg PO DAILY 04/15/22 11/24/23 DULoxetine HCL [Cymbalta] 30 mg PO HS 05/10/23 11/24/23 Tamsulosin [Flomax] 0.4 mg PO DAILY 05/10/23 11/24/23 Albuterol Sulfate [Albuterol 2 puff INHALATION RT-QID PRN 10/12/23 11/24/23 Sulfate Hfa] Ipratropium-Albuterol Nebulize 3 ml INHALATION RT-Q6H PRN 10/12/23 11/24/23 [Duoneb 0.5 mg-3 mg/3 ml Soln] Baclofen [Lioresal] 20 mg PO TID 11/24/23 11/24/23 Previous Rx's Medication Instructions Recorded HYDROcodone/APAP 7.5-325MG [[place] 1 tab PO BID PRN 3 Days #6 tab 10/30/23 7.5-325] Allergies Allergy/AdvReac Type Severity Reaction Status Date / Time sacubitril [From Entresto] Allergy hives Verified 11/24/23 16:41 trazodone Allergy Rash/Hives Verified 11/24/23 16:41 valsartan [From Entresto] Allergy hives Verified 11/24/23 16:41 Review of Systems ROS Statement: Those systems with pertinent positive or pertinent negative responses have been documented in the HPI. ROS Other: All systems not noted in ROS Statement are negative. Past Medical History Past Medical History: Atrial Fibrillation, COPD, GERD/Reflux, Hypertension, Pneumonia Additional Past Medical History / Comment(s): back pain spinal cord pinched in neck. SOB with activity History of Any Multi-Drug Resistant Organisms: None Reported Past Surgical History: Back Surgery Additional Past Surgical History / Comment(s): neck fusion,rt eye surgery, rt hand surgery, cateracts Past Anesthesia/Blood Transfusion Reactions: No Reported Reaction Past Psychological History: Depression Smoking Status: Current every day smoker Past Alcohol Use History: None Reported Past Drug Use History: Marijuana - Past Family History Mother History Unknown: Yes Family Medical History: Myocardial Infarction (MS) Additional Family Medical History / Comment(s): from [place] General Exam - General Exam Comments Initial Comments: PHYSICAL EXAM: General Impression: Alert and oriented x3, not in acute distress, diaphoretic, restless HEENT: Normocephalic atraumatic, extra-ocular movements intact, pupils equal and reactive to light bilaterally, mucous membranes moist. Cardiovascular: Heart regular rate and rhythm Chest: Able to complete full sentences, no retractions, no tachypnea Abdomen: abdomen soft, non-tender, non-distended, no organomegaly Musculoskeletal: Pulses present and equal in all extremities, 2+ pitting edema to the lower extremities Motor: no focal deficits noted Neurological: CN II-XII grossly intact, no focal motor or sensory deficits noted Skin: Intact with no visualized rashes Psych: Normal affect and mood Limitations: no limitations Course Vital Signs 11/24/23 11/24/23 11/24/23 14:41 14:44 15:04 Temperature 98.9 F Pulse Rate 110 H 112 H Respiratory 23 24 26 H Rate Blood Pressure 103/62 118/70 O2 Sat by Pulse 96 98 Oximetry 11/24/23 11/24/23 15:23 16:00 Temperature Pulse Rate 92 80 Respiratory 16 18 Rate Blood Pressure 107/80 103/81 O2 Sat by Pulse 97 98 Oximetry EKG Findings - EKG Comments: EKG Findings:: My EKG interpretation: Ventricular rate 98, sinus rhythm,. Oval 140, QRS 83, QTc 400. No TX prolongation, no QTC prolongation, no ST or T-wave changes noted. Overall, this EKG is unremarkable Medical Decision Making - Medical Decision Making Was pt. sent in by a medical professional or institution (, [facility], [employer], urgent care, hospital, or fci...) When possible be specific @ -No Did you speak to anyone other than the patient for history (EMS, parent, family, police, friend...)? What history was obtained from this source @ -Provide some history states the last time he was like this he ended up in the ICU on a ventilator. Did you review nursing and triage notes (agree or disagree)? Why? @ -I reviewed and agree with nursing and triage notes Were old charts reviewed (outside hosp., previous admission, EMS record, old EKG, old radiological studies, urgent care reports/EKG's, fci records)? Report findings @ -No old charts were reviewed Differential Diagnosis (chest pain, altered mental status, abdominal pain women, abdominal pain men, vaginal bleeding, musculoskeletal, weakness, fever, dyspnea, syncope, headache, dizziness, GI bleed, back pain, seizure, CVA, palpatations, mental health)? @ -Differential Dyspnea: Coronary syndrome, arrhythmia, tamponade, asthma, COPD, pulmonary embolism, pneumonia, pneumothorax, pulmonary effusion, anaphylaxis, diabetic ketoacidosis, flailed chest, pulmonary contusion, diaphragmatic rupture, anemia, neuromuscular , this is not meant to be an all-inclusive list. EKG interpreted by me (3pts min.). @ -As above X-rays interpreted by me (1pt min.). @ -Chest x-ray shows some opacities to the left base CT interpreted by me (1pt min.). @ -None done U/S interpreted by me (1pt. min.). @ -None done What testing was considered but not performed or refused? (CT, X-rays, U/S, labs)? Why? @ -None What meds were considered but not given or refused? Why? @ -None Was smoking cessation discussed for >3mins.? @ -No Were there social determinants of health that impacted care today? How? (Homelessness, low income, unemployed, alcoholism, drug addiction, transportation, low edu. Level, literacy, decrease access to med. care, usp, rehab)? @ -No Was there de-escalation of care discussed even if they declined (Discuss DNR or withdrawal of care, Hospice)? DNR status @ -No What co-morbidities impacted this encounter? (DM, HTN, Smoking, COPD, CAD, Cancer, CVA, ARF, Chemo, Hep., AIDS, mental health diagnosis, sleep apnea, morbid obesity)? @ -None Was patient admitted / discharged? Hospital course, mention meds given and route, prescriptions, significant lab abnormalities, going to OR and other pertinent info. @ -63-year-old male presents emergency department for shortness of breath leg swelling. Vital signs upon arrival shows tachycardia 110. Does appear to be mildly dyspneic. Patient not hypotensive. Laboratory evaluation obtained. Mild leukocytosis of 11.1. Coag panel is negative. Metabolic panel is nonacute. BNP is 621, troponin is negative. Urinalysis consistent with urinary tract infection. Patient positive for opiates, benzos and TCAs. Chest x-ray shows pneumonia. Patient will be admitted due to stating that patient has had ICU admission and ventilator management last time he was like this. Patient given ceftriaxone and Levaquin. Case discussed Dr. Wellington for admission Did you discuss the management of the patient with other professionals (professionals i.e. , PA, [employer], lab, RT, psych nurse, social science research assistant, driller portable, teacher, chief security officer, case assembler)? Give summary @ -see above Was critical care preformed (if so, how long)? @ -No Undiagnosed new problem with uncertain prognosis? @ -No Drug Therapy requiring intensive monitoring for toxicity (Heparin, Nitro, Insulin, Cardizem)? @ -No Were any procedures done? @ -No Diagnosis/symptom? Acute, or Chronic, or Acute on Chronic? Uncomplicated (without systemic symptoms) or Complicated (systemic symptoms)? @ -UTI, pneumonia Side effects of treatment? @ -No Exacerbation, Progression, or Severe Exacerbation? @ -No Poses a threat to life or bodily function? How? (Chest pain, [place], MS, pneumonia, PE, COPD, DKA, ARF, appy, cholecystitis, CVA, Diverticulitis, Homicidal, Suicidal, threat to staff... and all critical care pts) @ -yes - Lab Data Result diagrams: 11/24/23 15:04 11/24/23 15:04 Lab Results 11/24/23 11/24/23 11/24/23 Range/Units 15:04 15:04 15:04 WBC 11.1 H (3.8-10.6) k/uL RBC 3.73 L (4.30-5.90) m/uL Hgb 10.4 L (13.0-17.5) gm/dL Hct 33.0 L (39.0-53.0) % MCV 88.7 (80.0-100.0) fL MCH 27.9 (25.0-35.0) pg MCHC 31.5 (31.0-37.0) g/dL RDW 15.3 (11.5-15.5) % Plt Count 333 (150-450) k/uL MPV 8.4 Neutrophils % 78 % Lymphocytes % 13 % Monocytes % 7 % Eosinophils % 0 % Basophils % 0 % Neutrophils # 8.6 H (1.3-7.7) k/uL Lymphocytes # 1.5 (1.0-4.8) k/uL Monocytes # 0.8 (0-1.0) k/uL Eosinophils # 0.1 (0-0.7) k/uL Basophils # 0.1 (0-0.2) k/uL Hypochromasia Moderate PT 10.5 (10.0-12.5) sec INR 0.9 (<1.2) APTT 27.1 (22.0-30.0) sec Sodium 142 (137-145) mmol/L Potassium 3.7 (3.5-5.1) mmol/L Chloride 111 H (98-107) mmol/L Carbon Dioxide 22 (22-30) mmol/L Anion Gap 9 mmol/L BUN 20 (9-20) mg/dL Creatinine 1.03 (0.66-1.25) mg/dL Est GFR (CKD-EPI)AfAm >90 (>60 ml/min/1.73 sqM) Est GFR (CKD-EPI)NonAf 78 (>60 ml/min/1.73 sqM) Glucose 94 (74-99) mg/dL Plasma Lactic Acid Pierre (0.7-2.0) mmol/L Calcium 9.6 (8.4-10.2) mg/dL Magnesium 1.8 (1.6-2.3) mg/dL Total Bilirubin 0.6 (0.2-1.3) mg/dL AST 21 (17-59) U/L ALT 22 (4-49) U/L Alkaline Phosphatase 121 (38-126) U/L Troponin I (0.000-0.034) ng/mL NT-Pro-B Natriuret Pep 621 pg/mL Total Protein 6.0 L (6.3-8.2) g/dL Albumin 3.7 (3.5-5.0) g/dL Urine Color Urine Appearance (Clear) Urine pH (5.0-8.0) Ur Specific [place] (1.001-1.035) Urine Protein (Negative) Urine Glucose (UA) (Negative) Urine Ketones (Negative) Urine Blood (Negative) Urine Nitrite (Negative) Urine Bilirubin (Negative) Urine Urobilinogen (<2.0) mg/dL Ur Leukocyte Esterase (Negative) Urine RBC (0-5) /hpf Urine WBC (0-5) /hpf Ur Squamous Epith Cells (0-4) /hpf Urine Bacteria (None) /hpf Hyaline Casts (0-2) /lpf Urine Mucus (None) /hpf Urine Yeast (Budding) (None) /hpf Urine Opiates Screen (NotDetected) Ur Oxycodone Screen (NotDetected) Urine Methadone Screen (NotDetected) Ur Barbiturates Screen (NotDetected) U Tricyclic Antidepress (NotDetected) Ur Phencyclidine Scrn (NotDetected) Ur Amphetamines Screen (NotDetected) U Methamphetamines Scrn (NotDetected) U Benzodiazepines Scrn (NotDetected) Urine Cocaine Screen (NotDetected) U Marijuana (THC) Screen (NotDetected) 11/24/23 11/24/23 11/24/23 Range/Units 15:04 15:04 16:04 WBC (3.8-10.6) k/uL RBC (4.30-5.90) m/uL Hgb (13.0-17.5) gm/dL Hct (39.0-53.0) % MCV (80.0-100.0) fL MCH (25.0-35.0) pg MCHC (31.0-37.0) g/dL RDW (11.5-15.5) % Plt Count (150-450) k/uL MPV Neutrophils % % Lymphocytes % % Monocytes % % Eosinophils % % Basophils % % Neutrophils # (1.3-7.7) k/uL Lymphocytes # (1.0-4.8) k/uL Monocytes # (0-1.0) k/uL Eosinophils # (0-0.7) k/uL Basophils # (0-0.2) k/uL Hypochromasia PT (10.0-12.5) sec INR (<1.2) APTT (22.0-30.0) sec Sodium (137-145) mmol/L Potassium (3.5-5.1) mmol/L Chloride (98-107) mmol/L Carbon Dioxide (22-30) mmol/L Anion Gap mmol/L BUN (9-20) mg/dL Creatinine (0.66-1.25) mg/dL Est GFR (CKD-EPI)AfAm (>60 ml/min/1.73 sqM) Est GFR (CKD-EPI)NonAf (>60 ml/min/1.73 sqM) Glucose (74-99) mg/dL Plasma Lactic Acid Pierre 1.7 (0.7-2.0) mmol/L Calcium (8.4-10.2) mg/dL Magnesium (1.6-2.3) mg/dL Total Bilirubin (0.2-1.3) mg/dL AST (17-59) U/L ALT (4-49) U/L Alkaline Phosphatase (38-126) U/L Troponin I <0.012 (0.000-0.034) ng/mL NT-Pro-B Natriuret Pep pg/mL Total Protein (6.3-8.2) g/dL Albumin (3.5-5.0) g/dL Urine Color Yellow Urine Appearance Cloudy (Clear) Urine pH 6.0 (5.0-8.0) Ur Specific [place] 1.033 (1.001-1.035) Urine Protein 1+ H (Negative) Urine Glucose (UA) Negative (Negative) Urine Ketones Trace H (Negative) Urine Blood Negative (Negative) Urine Nitrite Negative (Negative) Urine Bilirubin Negative (Negative) Urine Urobilinogen 2.0 (<2.0) mg/dL Ur Leukocyte Esterase Large H (Negative) Urine RBC 15 H (0-5) /hpf Urine WBC >182 H (0-5) /hpf Ur Squamous Epith Cells <1 (0-4) /hpf Urine Bacteria Rare H (None) /hpf Hyaline Casts 39 H (0-2) /lpf Urine Mucus Many H (None) /hpf Urine Yeast (Budding) Occasional H (None) /hpf Urine Opiates Screen (NotDetected) Ur Oxycodone Screen (NotDetected) Urine Methadone Screen (NotDetected) Ur Barbiturates Screen (NotDetected) U Tricyclic Antidepress (NotDetected) Ur Phencyclidine Scrn (NotDetected) Ur Amphetamines Screen (NotDetected) U Methamphetamines Scrn (NotDetected) U Benzodiazepines Scrn (NotDetected) Urine Cocaine Screen (NotDetected) U Marijuana (THC) Screen (NotDetected) 11/24/23 Range/Units 16:04 WBC (3.8-10.6) k/uL RBC (4.30-5.90) m/uL Hgb (13.0-17.5) gm/dL Hct (39.0-53.0) % MCV (80.0-100.0) fL MCH (25.0-35.0) pg MCHC (31.0-37.0) g/dL RDW (11.5-15.5) % Plt Count (150-450) k/uL MPV Neutrophils % % Lymphocytes % % Monocytes % % Eosinophils % % Basophils % % Neutrophils # (1.3-7.7) k/uL Lymphocytes # (1.0-4.8) k/uL Monocytes # (0-1.0) k/uL Eosinophils # (0-0.7) k/uL Basophils # (0-0.2) k/uL Hypochromasia PT (10.0-12.5) sec INR (<1.2) APTT (22.0-30.0) sec Sodium (137-145) mmol/L Potassium (3.5-5.1) mmol/L Chloride (98-107) mmol/L Carbon Dioxide (22-30) mmol/L Anion Gap mmol/L BUN (9-20) mg/dL Creatinine (0.66-1.25) mg/dL Est GFR (CKD-EPI)AfAm (>60 ml/min/1.73 sqM) Est GFR (CKD-EPI)NonAf (>60 ml/min/1.73 sqM) Glucose (74-99) mg/dL Plasma Lactic Acid Pierre (0.7-2.0) mmol/L Calcium (8.4-10.2) mg/dL Magnesium (1.6-2.3) mg/dL Total Bilirubin (0.2-1.3) mg/dL AST (17-59) U/L ALT (4-49) U/L Alkaline Phosphatase (38-126) U/L Troponin I (0.000-0.034) ng/mL NT-Pro-B Natriuret Pep pg/mL Total Protein (6.3-8.2) g/dL Albumin (3.5-5.0) g/dL Urine Color Urine Appearance (Clear) Urine pH (5.0-8.0) Ur Specific [place] (1.001-1.035) Urine Protein (Negative) Urine Glucose (UA) (Negative) Urine Ketones (Negative) Urine Blood (Negative) Urine Nitrite (Negative) Urine Bilirubin (Negative) Urine Urobilinogen (<2.0) mg/dL Ur Leukocyte Esterase (Negative) Urine RBC (0-5) /hpf Urine WBC (0-5) /hpf Ur Squamous Epith Cells (0-4) /hpf Urine Bacteria (None) /hpf Hyaline Casts (0-2) /lpf Urine Mucus (None) /hpf Urine Yeast (Budding) (None) /hpf Urine Opiates Screen Detected H (NotDetected) Ur Oxycodone Screen Not Detected (NotDetected) Urine Methadone Screen Not Detected (NotDetected) Ur Barbiturates Screen Not Detected (NotDetected) U Tricyclic Antidepress Detected H (NotDetected) Ur Phencyclidine Scrn Not Detected (NotDetected) Ur Amphetamines Screen Not Detected (NotDetected) U Methamphetamines Scrn Not Detected (NotDetected) U Benzodiazepines Scrn Detected H (NotDetected) Urine Cocaine Screen Not Detected (NotDetected) U Marijuana (THC) Screen Not Detected (NotDetected) Disposition Clinical Impression: UTI (urinary tract infection), Pneumonia Disposition: ADMITTED IP TO THIS HOSP Condition: Fair Referrals: Joseph Granger MD [Primary Care Provider] - 1-2 days Decision Time: 17:27
[2023-11-24 15:29] LABS: ALT 22 U/L (4-49); AST 21 U/L (17-59); African American GFR (CKD) >90 (>60 ml/min/1.73 sqM); Albumin 3.7 g/dL (3.5-5.0); Alkaline Phosphatase 121 U/L (38-126); Anion Gap 9 mmol/L; Blood Urea Nitrogen 20 mg/dL (9-20); Calcium 9.6 mg/dL (8.4-10.2); Carbon Dioxide 22 mmol/L (22-30); Chloride 111 mmol/L (98-107); Glucose 94 mg/dL (74-99); Magnesium 1.8 mg/dL (1.6-2.3); Non-African American GFR(CKD) 78 (>60 ml/min/1.73 sqM); Potassium 3.7 mmol/L (3.5-5.1); Sodium 142 mmol/L (137-145); Total Bilirubin 0.6 mg/dL (0.2-1.3)
[2023-11-24 15:37] LABS: NT-Pro-B-Type Natriuretic Pept 621 pg/mL
--- NOTE | 2023-11-24 15:44 | XR ---
EXAMINATION TYPE: XR chest 2V DATE OF EXAM: 11/24/2023 COMPARISON: 10/23/2023 HISTORY: 63 year-old male shortness of breath, dyspnea TECHNIQUE: AP and lateral views FINDINGS: Heart borderline in size. Aorta and pulmonary vasculature within normal limits. Mild patchy density a t the left base. No other consolidation or pleural effusion seen. IMPRESSION: Borderline heart size. There is some focal patchy atelectasis versus early infiltrate at the left bas e. No other acute process seen.
[2023-11-24 16:14] LABS: Appearance,Urine Cloudy (Clear); Bacteria,Urine Rare /hpf; Bilirubin,Urine Negative (Negative); Blood,Urine Negative (Negative); Budding Yeast,Urine Occasional /hpf; Color,Urine Yellow; Glucose,Urine (UA) Negative (Negative); Hyaline Casts,Urine 39 /lpf (0-2); Ketones,Urine Trace (Negative); Leukocyte Esterase,Urine Large (Negative); Mucus,Urine Many /hpf; Nitrite,Urine Negative (Negative); Protein,Urine 1+ (Negative); RBC,Urine 15 /hpf (0-5); Specific Gravity,Urine 1.033 (1.001-1.035); Squamous Epithelial Cell,Urine <1 /hpf (0-4); WBC,Urine >182 /hpf (0-5)
[2023-11-24 17:07] LABS: Amphetamine Screen,Urine Not Detected (NotDetected); Barbiturate Screen,Urine Not Detected (NotDetected); Benzodiazepines Screen,Urine Detected (NotDetected); Cocaine Screen,Urine Not Detected (NotDetected); Methadone Screen, Urine Not Detected (NotDetected); Opiate Screen,Urine Detected (NotDetected); Oxycodone Screen, Urine Not Detected (NotDetected); Phencyclidine Screen,Urine Not Detected (NotDetected); Tricyclic Antidepressant,Urine Detected (NotDetected); Urn Cannabinoid Scrn Not Detected (NotDetected)
[2023-11-24] MEDS ORDERED: NALOXONE 0.4 MG/ML 1 ML VIAL IV PRN (17:23)
[2023-11-24] MEDS: SODIUM CHLORIDE 0.9% 1,000 ML IV SCH ×2 (17:36→22:19)
[2023-11-24] MEDS: cefTRIAXone IN SWFI 1,000 MG/10 ML SYRINGE IVP STA (17:38)
[2023-11-24] MEDS: LEVOFLOXACIN 750MG-D5W PMX 750 MG in DEXTROSE/WATER 1 150ML.BAG IVPB STA (17:39)
[2023-11-24] MEDS ORDERED: ALBUTEROL NEBULIZED 2.5 MG/3 ML INHALATION PRN (18:53)
[2023-11-24] MEDS: DULoxetine HCL 30 MG CAPSULE.DR PO SCH (22:17)
[2023-11-24] MEDS: BACLOFEN 10 MG TAB PO SCH (22:17)
[2023-11-24] MEDS: FAMOTIDINE 20 MG/2 ML VIAL IV SCH (22:18)
[2023-11-24] MEDS: HEPARIN SODIUM,PORCINE 5,000 UNIT/ML 1 ML VIAL SQ SCH (22:18)
[2023-11-24] MEDS: HYDROcodone/APAP 7.5-325MG 1 EACH TAB PO PRN (22:53)
[2023-11-24 23:17] LABS: Glucose,Whole Blood 120 mg/dL (70-110)
[2023-11-25] MEDS: IPRATROPIUM-ALBUTEROL 3 ML NEB INHALATION PRN (00:05)
[2023-11-25 00:11] LABS: ABG Base Excess -3.6 mmol/L; ABG HCO3 22 mmol/L (21-25); ABG Oxygen Saturation 91.7 % (94-97); ABG PCO2 39 mmHg (35-45); ABG PH 7.35 (7.35-7.45); ABG PO2 60 mmHg (83-108); ABG TCO2 23 mmol/L (19-24); Allen Test Performed? Yes
[2023-11-25 01:36] LABS: Glucose,Whole Blood 107 mg/dL (70-110)
--- NOTE | 2023-11-25 06:15 | P.CNPUL ---
History of Present Illness Consult date: 11/25/23 Requesting physician: Young E Aurora Reason for consult: dyspnea, hypoxemia Chief complaint: Shortness of breath. History of present illness: Pulmonary consult dated November 25, 2023. 63-year-old male who presents to the emergency department, on November 23, complaining of shortness of breath. The patient also complained of lower extremity edema, and has not been feeling well for about 2 or 3 days prior to admission. The patient is a bit confused this morning. He is able to give a history, but is a bit sketchy. Anyway, he states that for a couple of days, he has not been feeling his normal self. He does use oxygen at home. He uses 2 L, as needed. He does continue to smoke cigarettes. His primary care physician is Dr. Joseph Granger. The patient uses an albuterol inhaler at home, or nebulizer treatments with albuterol sulfate and ipratropium bromide. It does not appear that he sees a lung doctor. Currently, he is on about 3 L of oxygen by nasal cannula. He is getting saline at 75 cc an hour. He is in no respiratory distress. Current laboratory data includes a D-dimer 0.63. A blood gas on 28% oxygen, showing a pO2 of 60, pCO2 of 39, pH is 7.35. White count is 11.1, hemog lobin 10.4, hematocrit 33, and platelet count 333,000. Sodium 142, potassium 3.7, chlorides 111, CO2 22, BUN 20, creatinine 1.03. Glucose 107. N-terminal proBNP of 621. Although the patient does not have any urinary complaints, his urine is suspicious for a bladder infection. His leukocyte esterase is large positive. He has greater than 182 WBCs, and bacteria, in his urine sample. The patient's drug screen was positive for opiates, TCAs, and benzodiazepines. Chest x-ray shows cardiomegaly, and some atelectasis, at the lung bases, left greater than right. Review of Systems REVIEW OF SYSTEMS: CONSTITUTIONAL: [Negative.] NEUROLOGIC: [ Negative.] HEENT: [ Negative.] CARDIAC: Lower extremity edema. PULMONARY: Shortness of breath. GI: [Negative.] : [Negative.] RHEUMATOLOGIC: [ Negative.] IMMUNOLOGIC: [ Negative.] ENDOCRINE: [Negative. ] DERMATOLOGIC: [Negative.] Past Medical History Past Medical History: Atrial Fibrillation, COPD, GERD/Reflux, Hypertension, Pneumonia Additional Past Medical History / Comment(s): back pain spinal cord pinched in neck. SOB with activity History of Any Multi-Drug Resistant Organisms: None Reported Past Surgical History: Back Surgery Additional Past Surgical History / Comment(s): neck fusion,rt eye surgery, rt hand surgery, cateracts Past Anesthesia/Blood Transfusion Reactions: No Reported Reaction Past Psychological History: Depression Smoking Status: Current every day smoker Past Alcohol Use History: None Reported Additional Past Alcohol Use History / Comment(s): 1/2 ppd per day, just started smoking again Past Drug Use History: Marijuana - Past Family History Mother History Unknown: Yes Family Medical History: Myocardial Infarction ([place]) Additional Family Medical History / Comment(s): from [place] Medications and Allergies Home Medications Medication Instructions Recorded Confirmed Type DULoxetine HCL [Cymbalta] 60 mg PO DAILY 04/15/22 11/24/23 History DULoxetine HCL [Cymbalta] 30 mg PO HS 05/10/23 11/24/23 History Tamsulosin [Flomax] 0.4 mg PO DAILY 05/10/23 11/24/23 History Albuterol Sulfate [Albuterol 2 puff INHALATION RT-QID PRN 10/12/23 11/24/23 History Sulfate Hfa] Ipratropium-Albuterol Nebulize 3 ml INHALATION RT-Q6H PRN 10/12/23 11/24/23 History [Duoneb 0.5 mg-3 mg/3 ml Soln] HYDROcodone/APAP 7.5-325MG [[place] 1 tab PO BID PRN 3 Days #6 tab 10/30/23 11/24/23 Rx 7.5-325] Baclofen [Lioresal] 20 mg PO TID 11/24/23 11/24/23 History Allergies Allergy/AdvReac Type Severity Reaction Status Date / Time sacubitril [From Entresto] Allergy hives Verified 11/24/23 16:41 trazodone Allergy Rash/Hives Verified 11/24/23 16:41 valsartan [From Entresto] Allergy hives Verified 11/24/23 16:41 Physical Exam Osteopathic Statement: *. No significant issues noted on an osteopathic structural exam other than those noted in the History and Physical/Consult. Vitals: Vital Signs Temp Pulse Pulse Resp BP BP Pulse Ox 11/25/23 02:53 97.6 F 91 15 122/78 99 11/25/23 01:30 98.0 F 97 122/76 99 11/25/23 00:10 111 H 11/25/23 00:00 109 H 11/24/23 23:37 98.2 F 100 13 128/71 98 11/24/23 21:00 13 11/24/23 20:00 96.3 F L 87 21 136/93 96 11/24/23 18:33 86 16 110/76 96 11/24/23 18:00 84 20 110/79 96 11/24/23 17:41 76 20 109/82 98 11/24/23 17:00 75 20 100/60 96 11/24/23 16:00 80 18 103/81 98 11/24/23 15:23 92 16 107/80 97 11/24/23 15:04 26 H 11/24/23 14:44 112 H 24 118/70 98 11/24/23 14:41 98.9 F 110 H 23 103/62 96 Intake and Output 11/24/23 11/24/23 11/25/23 14:59 22:59 06:59 Intake Total 900 Balance 900 Intake: Intake, IV Titration 900 Amount Sodium Chloride 0.9% 1, 900 000 ml @ 75 mls/hr IV . [id number] [facility] Rx#:[id number] Other: Weight 75.75 kg 75.75 kg No acute distress, mildly confused, currently on oxygen, at 3 L. HEENT examination is grossly unremarkable. Mucous membranes are moist. No oral lesions. Neck supple. Full range of motion. No adenopathy thyromegaly or neck vein distention. Cardiovascular examination reveals regular rhythm rate. S1-S2 normal. No S3 or S4. No discernible murmur noted. Heart sounds are distant. Heart rate 90 bpm. Lungs reveal minimal scattered rhonchi. No wheezes. No crackles. Breath sounds are equal bilaterally. Saturations are 99%. Abdomen soft bowel sounds are heard. No masses or tenderness. Extremities are intact. No cyanosis or clubbing. 1+ lower extremity edema. Skin is without rash or lesion. Neurologic examination is brief but nonfocal. Results - Laboratory Findings CBC and BMP: 11/24/23 15:04 11/24/23 15:04 ABG ABG pH 7.35 (7.35-7.45) 11/25/23 00:00 ABG pCO2 39 mmHg (35-45) 11/25/23 00:00 ABG pO2 60 mmHg (83-108) L 11/25/23 00:00 ABG O2 Saturation 91.7 % (94-97) L 11/25/23 00:00 PT/INR, D-dimer PT 10.5 sec (10.0-12.5) 11/24/23 15:04 INR 0.9 (<1.2) 11/24/23 15:04 D-Dimer 0.63 mg/L FEU (<0.60) H 11/25/23 01:02 Abnormal lab findings: Abnormal Labs 11/24/23 11/24/23 11/24/23 15:04 15:04 16:04 WBC 11.1 H RBC 3.73 L Hgb 10.4 L Hct 33.0 L Neutrophils # 8.6 H D-Dimer ABG pO2 ABG O2 Saturation Chloride 111 H POC Glucose (mg/dL) Total Protein 6.0 L Urine Protein 1+ H Urine Ketones Trace H Ur Leukocyte Esterase Large H Urine RBC 15 H Urine WBC >182 H Urine Bacteria Rare H Hyaline Casts 39 H Urine Mucus Many H Urine Yeast (Budding) Occasional H Urine Opiates Screen U Tricyclic Antidepress U Benzodiazepines Scrn 11/24/23 11/24/23 11/25/23 16:04 23:15 00:00 WBC RBC Hgb Hct Neutrophils # D-Dimer ABG pO2 60 L ABG O2 Saturation 91.7 L Chloride POC Glucose (mg/dL) 120 H Total Protein Urine Protein Urine Ketones Ur Leukocyte Esterase Urine RBC Urine WBC Urine Bacteria Hyaline Casts Urine Mucus Urine Yeast (Budding) Urine Opiates Screen Detected H U Tricyclic Antidepress Detected H U Benzodiazepines Scrn Detected H 11/25/23 01:02 WBC RBC Hgb Hct Neutrophils # D-Dimer 0.63 H ABG pO2 ABG O2 Saturation Chloride POC Glucose (mg/dL) Total Protein Urine Protein Urine Ketones Ur Leukocyte Esterase Urine RBC Urine WBC Urine Bacteria Hyaline Casts Urine Mucus Urine Yeast (Budding) Urine Opiates Screen U Tricyclic Antidepress U Benzodiazepines Scrn - Diagnostic Findings Chest x-ray: image reviewed Assessment and Plan Assessment: Acute shortness of breath, likely related to COPD exacerbation. Ongoing tobacco use with nicotine addiction. Lower extremity edema, possibly related to underlying cor pulmonale. Possible urinary tract infection. History of gastroesophageal reflux disease. History of hypertension. History of atrial fibrillation. History of chronic back pain. Plan: Plan dated November 25, 2023. The patient is currently on Levaquin, for the suspected urinary tract infection. The patient is currently on updrafts with albuterol sulfate ipratropium bromide, for his COPD. I will add some prednisone, and Symbicort. The patient is counseled about the importance of smoking cessation. The patient should have follow-up in the pulmonary office, for complete pulmonary function testing. Additional recommendations and suggestions are forthcoming. Time with Patient: Greater than 30
[2023-11-25] MEDS: predniSONE 20 MG TAB PO SCH (08:57)
[2023-11-25] MEDS: DULoxetine HCL 60 MG CAPSULE.DR PO SCH (08:57)
[2023-11-25] MEDS: TAMSULOSIN 0.4 MG CAP.ER.24H PO SCH (08:58)
[2023-11-25] MEDS: SYMBICORT 160-4.5 MCG INHALER INHALATION SCH (09:15)
--- NOTE | 2023-11-25 11:33 | CT ---
EXAMINATION TYPE: CT chest angio for PE CT DLP: 320.1 mGycm, Automated exposure control for dose reduction was used. DATE OF EXAM: 11/25/2023 11:02 AM COMPARISON: 11/24/2023 chest x-ray CLINICAL INDICATION:Male, 63 years old with history of Dyspnea; SOB TECHNIQUE/CONTRAST: CTA scan of the thorax is performed with IV Contrast, patient injected with 100 mL of Isovue 370, MIP images are created and reviewed these are created on a separate workstation.. FINDINGS: There is adequate contrast bolus and timing. PULMONARY ARTERIES: There is no evidence for a filling defect within the pulmonary vasculature to sug gest acute pulmonary embolism. Pulmonary trunk is normal in size. Trunk measures 2.7 CM. AORTA: No significant atherosclerosis.. Ascending aorta is 3 CM, descending is 2.2 CM. HEART: Normal heart size. No appreciable pericardial effusion. LOWER NECK: No significant findings. MEDIASTINUM: No enlarged nodes by CT size criteria. SOFT TISSUES/AXILLA: Unremarkable soft tissues. No axillary adenopathy. LUNGS/ PLEURA: There are several scattered small patchy groundglass opacities bilaterally, mostly in the upper lobes but some the lower lobes. AIRWAY: Central airways are patent. MUSCULOSKELETAL: No acute osseous abnormality. UPPER ABDOMEN: Right kidney appears somewhat smaller or atrophic compared to the left. No mass of the visualized adrenals. IMPRESSION: 1. No evidence of pulmonary embolism. 2. Patchy groundglass opacities in the bilateral lungs, likely represents infectious or inflammatory process. Correlate clinically, and short-term follow CT in around 3-4 months is recommended.
--- NOTE | 2023-11-25 13:29 | P.HPIM ---
History of Present Illness H&P Date: 11/25/23 History of present illness; patient is a 63-year-old gentleman with past medical history significant for COPD, chronic respiratory failure who presented to the ER because of shortness of breath. Patient stated he was not feeling well for the last 2 days, complaining of increasing shortness of breath on rest and on exertion. Patient also complaining of swelling of feet. Patient denies any chest pain. There is no complaint of palpitation. Denies any orthopnea or PND. Patient denies any fever or chills. Initial lab work done in the ER showed WBC 9.1, hemoglobin 10.4, platelet count 333, sodium 142, potassium 3.7, BUN 20, creatinine 1.03, glucose 94, lactate 1.7, calcium 9.6, initially 1.8, troponin 0.012 UA done showed urine nitrite negative, urine leukocyte esterase large amounts, urine WBC more than 182 Urine drug screen positive for opioids, TCA, benzodiazepines EKG done in the ER showed heart rate of 98, no ST segment elevation or depression seen, no T-wave inversions seen. Chest x-ray done in the ER showed borderline heart size, there is some focal patchy atelectasis versus early infiltrate at the left lung base Patient admitted to internal medicine service REVIEW OF SYSTEMS: CONSTITUTIONAL: No fever, no malaise, no fatigue. HEENT: No recent visual problems or hearing problems. Denied any sore throat. CARDIOVASCULAR: As mentioned HPI PULMONARY: As mentioned HPI GASTROINTESTINAL: No diarrhea, no nausea, no vomiting, no abdominal pain. NEUROLOGICAL: No headaches, no weakness, no numbness. HEMATOLOGICAL: Denies any bleeding or petechiae. GENITOURINARY: Denies any burning micturition, frequency, or urgency. MUSCULOSKELETAL/RHEUMATOLOGICAL: Denies any joint pain, swelling, or any muscle pain. ENDOCRINE: Denies any polyuria or polydipsia. The rest of the 14-point review of systems is negative. PHYSICAL EXAMINATION: GENERAL: The patient is alert and oriented x3, not in any acute distress. Chronically ill looking HEENT: Pupils are round and equally reacting to light. EOMI. No scleral icterus. No conjunctival pallor. Normocephalic, atraumatic. No pharyngeal erythema. No thyromegaly. CARDIOVASCULAR: S1 and S2 present. No murmurs, rubs, or gallops. PULMONARY: Coarse breath sound bilaterally, expiratory wheeze audible ABDOMEN: Soft, nontender, nondistended, normoactive bowel sounds. No palpable organomegaly. MUSCULOSKELETAL: No joint swelling or deformity. EXTREMITIES: No cyanosis, clubbing, 1+ pitting edema lower extremities bilaterally NEUROLOGICAL: Gross neurological examination did not reveal any focal deficits. SKIN: No rashes. Assessment and plan Acute on chronic hypoxic respiratory failure Acute COPD exacerbation UTI Tobacco addiction Hypertension History of atrial fibrillation Monitor vital signs Monitor CBC Monitor CMP Continue telemetry monitoring Ordered urine cultures Ordered blood cultures Start breathing treatments Start IV Levaquin Ordered 2D echo Ordered CTA chest to rule out PE Ordered Pro-Ryan Ordered proBNP Resume home meds Consult pulmonology Consult ID Labs and medication were reviewed.. Continue same treatment. Continue with symptomatic treatment. Resume home medication. Monitor labs and vitals. DVT and GI prophylaxis. Further recommendations as per clinical course of the patient Dictation was produced using [employer] dictation software. please excuse any grammatical, word or spelling errors. Past Medical History Past Medical History: Atrial Fibrillation, COPD, GERD/Reflux, Hypertension, Pneumonia Additional Past Medical History / Comment(s): back pain spinal cord pinched in neck. SOB with activity History of Any Multi-Drug Resistant Organisms: None Reported Past Surgical History: Back Surgery Additional Past Surgical History / Comment(s): neck fusion,rt eye surgery, rt hand surgery, cateracts Past Anesthesia/Blood Transfusion Reactions: No Reported Reaction Past Psychological History: Depression Smoking Status: Current every day smoker Past Alcohol Use History: None Reported Additional Past Alcohol Use History / Comment(s): 1/2 ppd per day, just started smoking again Past Drug Use History: Marijuana - Past Family History Mother History Unknown: Yes Family Medical History: Myocardial Infarction ([place]) Additional Family Medical History / Comment(s): from [place] Medications and Allergies Home Medications Medication Instructions Recorded Confirmed Type DULoxetine HCL [Cymbalta] 60 mg PO DAILY 04/15/22 11/24/23 History DULoxetine HCL [Cymbalta] 30 mg PO HS 05/10/23 11/24/23 History Tamsulosin [Flomax] 0.4 mg PO DAILY 05/10/23 11/24/23 History Albuterol Sulfate [Albuterol 2 puff INHALATION RT-QID PRN 10/12/23 11/24/23 History Sulfate Hfa] Ipratropium-Albuterol Nebulize 3 ml INHALATION RT-Q6H PRN 10/12/23 11/24/23 History [Duoneb 0.5 mg-3 mg/3 ml Soln] HYDROcodone/APAP 7.5-325MG [[place] 1 tab PO BID PRN 3 Days #6 tab 10/30/23 11/24/23 Rx 7.5-325] Baclofen [Lioresal] 20 mg PO TID 11/24/23 11/24/23 History Allergies Allergy/AdvReac Type Severity Reaction Status Date / Time sacubitril [From Entresto] Allergy hives Verified 11/24/23 16:41 trazodone Allergy Rash/Hives Verified 11/24/23 16:41 valsartan [From Entresto] Allergy hives Verified 11/24/23 16:41 Physical Exam Vitals: Vital Signs Temp Pulse Pulse Resp BP BP Pulse Ox 11/25/23 09:23 96 11/25/23 09:19 99 11/25/23 09:15 93 11/25/23 07:14 98.0 F 105 H 19 111/58 97 11/25/23 02:53 97.6 F 91 15 122/78 99 11/25/23 01:30 98.0 F 97 122/76 99 11/25/23 00:10 111 H 11/25/23 00:00 109 H 11/24/23 23:37 98.2 F 100 13 128/71 98 11/24/23 21:00 13 11/24/23 20:00 96.3 F L 87 21 136/93 96 11/24/23 18:33 86 16 110/76 96 11/24/23 18:00 84 20 110/79 96 11/24/23 17:41 76 20 109/82 98 11/24/23 17:00 75 20 100/60 96 11/24/23 16:00 80 18 103/81 98 11/24/23 15:23 92 16 107/80 97 11/24/23 15:04 26 H 11/24/23 14:44 112 H 24 118/70 98 11/24/23 14:41 98.9 F 110 H 23 103/62 96 Intake and Output 11/24/23 11/25/23 11/25/23 22:59 06:59 14:59 Intake Total 900 Output Total 200 Balance 900 -200 Intake: Intake, IV Titration 900 Amount Sodium Chloride 0.9% 1, 900 000 ml @ 75 mls/hr IV . [id number] Rx#:[id number] Output: Urine 200 Other: Weight 75.75 kg Results CBC & Chem 7: 11/24/23 15:04 11/24/23 15:04 Labs: Abnormal Lab Results - Last 24 Hours (Table) 11/24/23 11/24/23 11/24/23 Range/Units 15:04 15:04 16:04 WBC 11.1 H (3.8-10.6) k/uL RBC 3.73 L (4.30-5.90) m/uL Hgb 10.4 L (13.0-17.5) gm/dL Hct 33.0 L (39.0-53.0) % Neutrophils # 8.6 H (1.3-7.7) k/uL D-Dimer (<0.60) mg/L FEU ABG pO2 (83-108) mmHg ABG O2 Saturation (94-97) % Chloride 111 H (98-107) mmol/L POC Glucose (mg/dL) (70-110) mg/dL Total Protein 6.0 L (6.3-8.2) g/dL Urine Protein 1+ H (Negative) Urine Ketones Trace H (Negative) Ur Leukocyte Esterase Large H (Negative) Urine RBC 15 H (0-5) /hpf Urine WBC >182 H (0-5) /hpf Urine Bacteria Rare H (None) /hpf Hyaline Casts 39 H (0-2) /lpf Urine Mucus Many H (None) /hpf Urine Yeast (Budding) Occasional H (None) /hpf Urine Opiates Screen (NotDetected) U Tricyclic Antidepress (NotDetected) U Benzodiazepines Scrn (NotDetected) 11/24/23 11/24/23 11/25/23 Range/Units 16:04 23:15 00:00 WBC (3.8-10.6) k/uL RBC (4.30-5.90) m/uL Hgb (13.0-17.5) gm/dL Hct (39.0-53.0) % Neutrophils # (1.3-7.7) k/uL D-Dimer (<0.60) mg/L FEU ABG pO2 60 L (83-108) mmHg ABG O2 Saturation 91.7 L (94-97) % Chloride (98-107) mmol/L POC Glucose (mg/dL) 120 H (70-110) mg/dL Total Protein (6.3-8.2) g/dL Urine Protein (Negative) Urine Ketones (Negative) Ur Leukocyte Esterase (Negative) Urine RBC (0-5) /hpf Urine WBC (0-5) /hpf Urine Bacteria (None) /hpf Hyaline Casts (0-2) /lpf Urine Mucus (None) /hpf Urine Yeast (Budding) (None) /hpf Urine Opiates Screen Detected H (NotDetected) U Tricyclic Antidepress Detected H (NotDetected) U Benzodiazepines Scrn Detected H (NotDetected) 11/25/23 Range/Units 01:02 WBC (3.8-10.6) k/uL RBC (4.30-5.90) m/uL Hgb (13.0-17.5) gm/dL Hct (39.0-53.0) % Neutrophils # (1.3-7.7) k/uL D-Dimer 0.63 H (<0.60) mg/L FEU ABG pO2 (83-108) mmHg ABG O2 Saturation (94-97) % Chloride (98-107) mmol/L POC Glucose (mg/dL) (70-110) mg/dL Total Protein (6.3-8.2) g/dL Urine Protein (Negative) Urine Ketones (Negative) Ur Leukocyte Esterase (Negative) Urine RBC (0-5) /hpf Urine WBC (0-5) /hpf Urine Bacteria (None) /hpf Hyaline Casts (0-2) /lpf Urine Mucus (None) /hpf Urine Yeast (Budding) (None) /hpf Urine Opiates Screen (NotDetected) U Tricyclic Antidepress (NotDetected) U Benzodiazepines Scrn (NotDetected)
[2023-11-25 13:38] LABS: Basophils % (A) 0 %; Eosinophils % (A) 0 %; HGB 10.4 gm/dL (13.0-17.5); Hypochromasia Marked; Lymphocytes # (A) 0.8 k/uL (1.0-4.8); Lymphocytes % (A) 7 %; MCH 27.7 pg (25.0-35.0); MCHC 30.5 g/dL (31.0-37.0); MCV 90.8 fL (80.0-100.0); Mean Platelet Volume 8.5; Monocytes # (A) 0.2 k/uL (0-1.0); Monocytes % (A) 2 %; Neutrophils # (A) 9.5 k/uL (1.3-7.7); Neutrophils % (A) 90 %; Platelet Count 307 k/uL (150-450); RBC 3.74 m/uL (4.30-5.90); RDW 15.6 % (11.5-15.5); WBC 10.6 k/uL (3.8-10.6)
[2023-11-25 13:50] LABS: ALT 22 U/L (4-49); AST 21 U/L (17-59); African American GFR (CKD) >90 (>60 ml/min/1.73 sqM); Albumin 3.9 g/dL (3.5-5.0); Albumin/Globulin Ratio 1.7; Alkaline Phosphatase 104 U/L (38-126); Anion Gap 11 mmol/L; Blood Urea Nitrogen 18 mg/dL (9-20); C Reactive Protein 4.8 mg/dL (<1.0); Calcium 9.2 mg/dL (8.4-10.2); Carbon Dioxide 18 mmol/L (22-30); Chloride 110 mmol/L (98-107); Globulin 2.3 g/dL; Glucose 116 mg/dL (74-99); Non-African American GFR(CKD) >90 (>60 ml/min/1.73 sqM); Sodium 139 mmol/L (137-145); Total Bilirubin 0.5 mg/dL (0.2-1.3); Total Protein 6.2 g/dL (6.3-8.2)
[2023-11-25 13:56] LABS: NT-Pro-B-Type Natriuretic Pept 1280 pg/mL
[2023-11-25] MEDS: LEVOFLOXACIN 500MG-D5W PMX 500 MG in DEXTROSE/WATER 1 100ML.BAG IVPB SCH (16:28)
[2023-11-26] MEDS: diphenhydrAMINE 25 MG CAP PO STA (01:30)
[2023-11-26] MEDS: ACETAMINOPHEN TAB 325 MG TAB PO STA (01:30)
[2023-11-26 08:42] LABS: Basophils # (A) 0.02 X 10*3/uL (0.00-0.10); Basophils % (A) 0.3 %; Eosinophils # (A) 0.12 X 10*3/uL (0.04-0.35); Eosinophils % (A) 2.1 %; HCT 30.7 % (39.6-50.0); HGB 9.3 g/dL (13.0-17.0); Lymphocytes % (A) 19.1 %; MCH 27.4 pg (27.0-32.0); MCHC 30.3 g/dL (32.0-37.0); MCV 90.6 FL (80.0-97.0); Mean Platelet Volume 10.7 FL (9.5-12.2); Monocytes % (A) 12.2 %; NRBC Per 100 WBC 0 X 10*3/uL (0.00-0.01); Platelet Count 296 X 10*3/uL (140-440); RBC 3.39 X 10*6/uL (4.40-5.60); RDW 16.5 % (11.5-14.5); WBC 5.76 X 10*3/uL (4.50-10.00)
[2023-11-26 09:05] LABS: BUN/Creat Ratio 18.89 Ratio (12.00-20.00); Carbon Dioxide 21.1 mmol/L (21.6-31.8); Chloride 109 mmol/L (96-109); Glucose 107 mg/dL (70-110); Potassium 4.5 mmol/L (3.5-5.5); Sodium 141 mmol/L (135-145)
[2023-11-26 09:06] LABS: ALT 19 U/L (10-49); AST 15 U/L (14-35); Albumin 3.9 g/dL (3.8-4.9); Albumin/Globulin Ratio 1.95 Ratio (1.60-3.17); Alkaline Phosphatase 100 U/L (41-126); Total Bilirubin <0.2 mg/dL (0.3-1.2); Total Protein 5.9 g/dL (6.2-8.2)
--- NOTE | 2023-11-26 11:42 | CA ---
Transthoracic Echo Report Name: Fausto Willis Age: 63 Gender: M : 1960 Exam Date: 11/26/2023 09:39 Exam Location: [facility] Ht (in): 70 Wt (lb): 167 Ordering Physician: Francisco Javier Lewis MD Attending/Referring Phys: Police Officer Booking Karishma Resendiz RDCS Procedure CPT: Indications: SHORTNESS OF BREATH Cardiac Hx: limited study Technical Quality: Good Contrast 1: Total Dose (mL): Contrast 2: Total Dose (mL): MEASUREMENTS (Male / Female) Normal Values 2D ECHO RV Internal Dim ED PLAX 3.3 cm DOPPLER AV Peak Velocity 148.0 cm/s AV Peak Gradient 8.8 mmHg TR Peak Velocity 236.0 cm/s TR Peak Gradient 22.3 mmHg Right Ventricular Systolic Press 27.3 mmHg FINDINGS Left Ventricle Left ventricular ejection fraction is estimated at 55-60 %. Normal left ventricular wall motion. Right Ventricle Normal right ventricular size. Right ventricular systolic pressure within normal limits. Right Atrium Normal right atrial size. Left Atrium Mitral Valve Structurally normal mitral valve. No mitral stenosis, regurgitation or prolapse. Aortic Valve Trileaflet aortic valve. No aortic valve stenosis or regurgitation. Tricuspid Valve Structurally normal tricuspid valve. Mild tricuspid regurgitation. Pulmonic Valve Structurally normal pulmonic valve. No pulmonic regurgitation. Pericardium No pericardial effusion. Aorta Normal size aortic root and proximal ascending aorta. CONCLUSIONS Limited echo. Normal left ventricular size and systolic function Previewed by: Dr. Stuart Avalos MD (Electronically Signed) Final Date: 26 November 2023 11:42
--- NOTE | 2023-11-26 13:22 | P.CONS ---
History of Present Illness - Reason for Consult Consult date: 11/25/23 UTI, pneumonia Requesting physician: Francisco Javier Lewis - Chief Complaint Lower extremity swelling and weakness x few days - History of Present Illness Patient is a 63-year-old male with a past medical history significant for COPD reflux hypertension atrial fibrillation presenting to the hospital for evaluation of increasing swelling to bilateral lower extremity and increasing shortness of breath and this patient symptom has going on for the last few days before presentation to the hospital patient denies having history of any fever or any chills he did have mild cough which is mostly dry in nature not becoming sputum patient denies having any nausea no vomiting no abdominal pain or any diarrhea with the symptoms the patient has been evaluated on presentation to the hospital the patient was afebrile and no fever have recorded subsequently patient was mildly tachycardic at 1 point but not hypotensive and no significant hypoxemic documented on the room air, patient did have a white count of 11.1 which is down to 10.6 today did have a left shift creatinine is 1.03 liver isms are normal CRP is 4.8 urine has been positive urine drug screen positive for opiates and tricyclic's and benzo, patient did have a chest x-ray borderline heart size is some focal patchy atelectasis versus early infiltrate in the left base patient also have a CT angiogram of the chest which shows no PE patchy groundglass opacities in the bilateral lungs likely representing infectious or inflammatory process prompted this infectious disease consultation Review of Systems Positive point and negatives has been mentioned in the HPI, complete review of systems was performed and all other systems are negative Past Medical History Past Medical History: Atrial Fibrillation, COPD, GERD/Reflux, Hypertension, Pneumonia Additional Past Medical History / Comment(s): back pain spinal cord pinched in neck. SOB with activity History of Any Multi-Drug Resistant Organisms: None Reported Past Surgical History: Back Surgery Additional Past Surgical History / Comment(s): neck fusion,rt eye surgery, rt hand surgery, cateracts Past Anesthesia/Blood Transfusion Reactions: No Reported Reaction Past Psychological History: Depression Smoking Status: Current every day smoker Past Alcohol Use History: None Reported Additional Past Alcohol Use History / Comment(s): 1/2 ppd per day, just started smoking again Past Drug Use History: Marijuana - Past Family History Mother History Unknown: Yes Family Medical History: Myocardial Infarction ([place]) Additional Family Medical History / Comment(s): from [place] Medications and Allergies Home Medications Medication Instructions Recorded Confirmed Type DULoxetine HCL [Cymbalta] 60 mg PO DAILY 04/15/22 11/24/23 History DULoxetine HCL [Cymbalta] 30 mg PO HS 05/10/23 11/24/23 History Tamsulosin [Flomax] 0.4 mg PO DAILY 05/10/23 11/24/23 History Albuterol Sulfate [Albuterol 2 puff INHALATION RT-QID PRN 10/12/23 11/24/23 History Sulfate Hfa] Ipratropium-Albuterol Nebulize 3 ml INHALATION RT-Q6H PRN 10/12/23 11/24/23 History [Duoneb 0.5 mg-3 mg/3 ml Soln] HYDROcodone/APAP 7.5-325MG [[place] 1 tab PO BID PRN 3 Days #6 tab 10/30/23 11/24/23 Rx 7.5-325] Baclofen [Lioresal] 20 mg PO TID 11/24/23 11/24/23 History Budesonide-Formot 160-4.5 Mcg 2 puff INHALATION RT-BID #1 each 11/28/23 Rx [Symbicort 160-4.5 Mcg Inhaler] Furosemide [Lasix] 20 mg PO DAILY 30 Days #30 tab 11/28/23 Rx Levofloxacin [Levaquin] 500 mg PO DAILY 4 Days #4 tab 11/28/23 Rx predniSONE 10 mg PO DAILY 8 Days #20 tab 11/28/23 Rx Allergies Allergy/AdvReac Type Severity Reaction Status Date / Time sacubitril [From Entresto] Allergy hives Verified 11/24/23 16:41 trazodone Allergy Rash/Hives Verified 11/24/23 16:41 valsartan [From Entresto] Allergy hives Verified 11/24/23 16:41 Physical Exam Vitals: Vital Signs Temp Pulse Pulse Resp BP BP Pulse Ox 11/25/23 09:23 96 11/25/23 09:19 99 11/25/23 09:15 93 11/25/23 07:14 98.0 F 105 H 19 111/58 97 11/25/23 02:53 97.6 F 91 15 122/78 99 11/25/23 01:30 98.0 F 97 122/76 99 11/25/23 00:10 111 H 11/25/23 00:00 109 H 11/24/23 23:37 98.2 F 100 13 128/71 98 11/24/23 21:00 13 11/24/23 20:00 96.3 F L 87 21 136/93 96 11/24/23 18:33 86 16 110/76 96 11/24/23 18:00 84 20 110/79 96 11/24/23 17:41 76 20 109/82 98 11/24/23 17:00 75 20 100/60 96 11/24/23 16:00 80 18 103/81 98 11/24/23 15:23 92 16 107/80 97 11/24/23 15:04 26 H 11/24/23 14:44 112 H 24 118/70 98 11/24/23 14:41 98.9 F 110 H 23 103/62 96 Intake and Output 11/24/23 11/25/23 11/25/23 22:59 06:59 14:59 Intake Total 900 Output Total 200 Balance 900 -200 Intake: Intake, IV Titration 900 Amount Sodium Chloride 0.9% 1, 900 000 ml @ 75 mls/hr IV . [id number] [facility] Rx#:[id number] Output: Urine 200 Other: Voiding Method Urinal Weight 75.75 kg GENERAL DESCRIPTION: Middle-aged male in the chair, no distress. No tachypnea or accessory muscle of respiration use. HEENT: Shows Pallor , no scleral icterus. Oral mucous membrane is dry. No pharyngeal erythema or thrush NECK: Trachea central, no thyromegaly. LUNGS: Unlabored breathing. Decreased breath sound the base HEART: S1, S2, regular rate and rhythm. No loud murmur ABDOMEN: Soft, no tenderness , guarding or rigidity, no organomegaly EXTREMITIES: 1+ edema of feet. SKIN: No rash, no masses palpable. NEUROLOGICAL: The patient is awake, alert, oriented x3, mood and affect normal. Results CBC & Chem 7: 11/28/23 04:04 11/28/23 04:04 Labs: Abnormal Lab Results - Last 24 Hours (Table) 11/24/23 11/24/23 11/24/23 Range/Units 15:04 15:04 16:04 WBC 11.1 H (3.8-10.6) k/uL RBC 3.73 L (4.30-5.90) m/uL Hgb 10.4 L (13.0-17.5) gm/dL Hct 33.0 L (39.0-53.0) % Neutrophils # 8.6 H (1.3-7.7) k/uL D-Dimer (<0.60) mg/L FEU ABG pO2 (83-108) mmHg ABG O2 Saturation (94-97) % Chloride 111 H (98-107) mmol/L POC Glucose (mg/dL) (70-110) mg/dL Total Protein 6.0 L (6.3-8.2) g/dL Urine Protein 1+ H (Negative) Urine Ketones Trace H (Negative) Ur Leukocyte Esterase Large H (Negative) Urine RBC 15 H (0-5) /hpf Urine WBC >182 H (0-5) /hpf Urine Bacteria Rare H (None) /hpf Hyaline Casts 39 H (0-2) /lpf Urine Mucus Many H (None) /hpf Urine Yeast (Budding) Occasional H (None) /hpf Urine Opiates Screen (NotDetected) U Tricyclic Antidepress (NotDetected) U Benzodiazepines Scrn (NotDetected) 11/24/23 11/24/23 11/25/23 Range/Units 16:04 23:15 00:00 WBC (3.8-10.6) k/uL RBC (4.30-5.90) m/uL Hgb (13.0-17.5) gm/dL Hct (39.0-53.0) % Neutrophils # (1.3-7.7) k/uL D-Dimer (<0.60) mg/L FEU ABG pO2 60 L (83-108) mmHg ABG O2 Saturation 91.7 L (94-97) % Chloride (98-107) mmol/L POC Glucose (mg/dL) 120 H (70-110) mg/dL Total Protein (6.3-8.2) g/dL Urine Protein (Negative) Urine Ketones (Negative) Ur Leukocyte Esterase (Negative) Urine RBC (0-5) /hpf Urine WBC (0-5) /hpf Urine Bacteria (None) /hpf Hyaline Casts (0-2) /lpf Urine Mucus (None) /hpf Urine Yeast (Budding) (None) /hpf Urine Opiates Screen Detected H (NotDetected) U Tricyclic Antidepress Detected H (NotDetected) U Benzodiazepines Scrn Detected H (NotDetected) 11/25/23 Range/Units 01:02 WBC (3.8-10.6) k/uL RBC (4.30-5.90) m/uL Hgb (13.0-17.5) gm/dL Hct (39.0-53.0) % Neutrophils # (1.3-7.7) k/uL D-Dimer 0.63 H (<0.60) mg/L FEU ABG pO2 (83-108) mmHg ABG O2 Saturation (94-97) % Chloride (98-107) mmol/L POC Glucose (mg/dL) (70-110) mg/dL Total Protein (6.3-8.2) g/dL Urine Protein (Negative) Urine Ketones (Negative) Ur Leukocyte Esterase (Negative) Urine RBC (0-5) /hpf Urine WBC (0-5) /hpf Urine Bacteria (None) /hpf Hyaline Casts (0-2) /lpf Urine Mucus (None) /hpf Urine Yeast (Budding) (None) /hpf Urine Opiates Screen (NotDetected) U Tricyclic Antidepress (NotDetected) U Benzodiazepines Scrn (NotDetected) Assessment and Plan (1) Abnormal CT scan, chest Status: Acute Code(s): R93.89 - ABNORMAL FINDINGS ON DX IMAGING OF OTH BODY STRUCTURES SNOMED Code(s): 59259957649831324 (2) Pneumonia Status: Acute Code(s): J18.9 - PNEUMONIA, UNSPECIFIED ORGANISM SNOMED Code(s): 201866589 Plan: 1patient presented to hospital with increasing shortness of breath also have increasing swelling to bilateral lower extremity noticed to have some groundglass patchy opacities on the CT could be related to underlying fluid pneumonia less likely but not entirely excluded. 2 We will obtain influenza RSV and COVID testing check urine for Legionella antigen 3check a procalcitonin level 4continue with the Levaquin while waiting for the workup to be completed Multiple question concerns were answered We will follow on clinical condition and cultures to further adjust medication if needed Thank you for this consultation we will follow the patient along with you Dictation was produced using [email or web address] dictation software. please excuse any grammatical, word or spelling errors. Time with Patient: Greater than 30
--- NOTE | 2023-11-26 13:26 | P.PN ---
Subjective Progress Note Date: 11/26/23 patient is a 63-year-old gentleman with past medical history significant for COPD, chronic respiratory failure who presented to the ER because of shortness of breath. Patient stated he was not feeling well for the last 2 days, complaining of increasing shortness of breath on rest and on exertion. Patient also complaining of swelling of feet. Patient denies any chest pain. There is no complaint of palpitation. Denies any orthopnea or PND. Patient denies any fever or chills. Initial lab work done in the ER showed WBC 9.1, hemoglobin 10.4, platelet count 333, sodium 142, potassium 3.7, BUN 20, creatinine 1.03, glucose 94, lactate 1.7, calcium 9.6, initially 1.8, troponin 0.012 UA done showed urine nitrite negative, urine leukocyte esterase large amounts, urine WBC more than 182 Urine drug screen positive for opioids, TCA, benzodiazepines EKG done in the ER showed heart rate of 98, no ST segment elevation or depression seen, no T-wave inversions seen. Chest x-ray done in the ER showed borderline heart size, there is some focal patchy atelectasis versus early infiltrate at the left lung base Patient admitted to internal medicine service 11/25. Patient seen and examined. Breathing is improved, gets short of breath on exertion REVIEW OF SYSTEMS: CONSTITUTIONAL: No fever, no malaise,. CARDIOVASCULAR: No chest pain, no palpitations, no syncope. PULMONARY: No shortness of breath, no cough, GASTROINTESTINAL: No diarrhea, no nausea, no vomiting, no abdominal pain. NEUROLOGICAL: No headaches, no weakness, PHYSICAL EXAMINATION: GENERAL: The patient is alert and oriented x3, not in any acute distress. Well developed, well nourished. HEENT: Pupils are round and equally reacting to light. EOMI. No scleral icterus. No conjunctival pallor. Normocephalic, atraumatic. No pharyngeal erythema. No thyromegaly. CARDIOVASCULAR: S1 and S2 present. No murmurs, rubs, or gallops. PULMONARY: Diminished breath sound the bases bilaterally, no wheezing or crackle s. ABDOMEN: Soft, nontender, nondistended, normoactive bowel sounds. No palpable organomegaly. MUSCULOSKELETAL: No joint swelling or deformity. EXTREMITIES: No cyanosis, clubbing, 1+ pitting edema lower extremities bilaterally NEUROLOGICAL: Gross neurological examination did not reveal any focal deficits. SKIN: No rashes. Assessment and plan Acute on chronic hypoxic respiratory failure Acute COPD exacerbation UTI Tobacco addiction Hypertension History of atrial fibrillation Monitor vital signs Monitor CBC Monitor CMP Continue telemetry monitoring Continue breathing treatments Continue IV Levaquin 2D echo done showed normal left regular size and systolic Pulmonology following ID following Labs and medication were reviewed.. Continue same treatment. Continue with symptomatic treatment. Resume home medication. Monitor labs and vitals. DVT and GI prophylaxis. Further recommendations as per clinical course of the patient Dictation was produced using [employer] dictation software. please excuse any grammatical, word or spelling errors. Objective - Vital Signs Vital signs: Vital Signs Temp 97.7 F 11/26/23 07:58 Pulse 91 11/26/23 08:37 Resp 18 11/26/23 08:37 BP 129/46 11/26/23 07:58 Pulse Ox 100 11/26/23 09:05 FiO2 Intake & Output 11/25/23 11/26/23 11/26/23 18:59 06:59 18:59 Output Total 200 400 200 Balance -200 -400 -200 Output: Urine 200 400 200 Other: Voiding Method Urinal Urinal Urinal # Voids 4 2 - Labs CBC & Chem 7: 11/26/23 04:35 11/26/23 04:35 Labs: Abnormal Lab Results - Last 24 Hours (Table) 11/25/23 11/25/23 11/25/23 Range/Units 13:14 13:14 13:14 RBC 3.74 L (4.30-5.90) m/uL Hgb 10.4 L (13.0-17.5) gm/dL Hct 34.0 L (39.0-53.0) % MCHC 30.5 L (31.0-37.0) g/dL RDW 15.6 H (11.5-15.5) % Neutrophils # 9.5 H (1.3-7.7) k/uL Lymphocytes # 0.8 L (1.0-4.8) k/uL Chloride 110 H (98-107) mmol/L Carbon Dioxide 18 L (22-30) mmol/L Glucose 116 H (74-99) mg/dL Total Bilirubin (0.3-1.2) mg/dL C-Reactive Protein 4.8 H (<1.0) mg/dL Total Protein 6.2 L (6.3-8.2) g/dL Procalcitonin 0.14 H (0.02-0.09) ng/mL 11/26/23 11/26/23 Range/Units 04:35 04:35 RBC 3.39 L (4.30-5.90) m/uL Hgb 9.3 L (13.0-17.5) gm/dL Hct 30.7 L (39.0-53.0) % MCHC 30.3 L (31.0-37.0) g/dL RDW 16.5 H (11.5-15.5) % Neutrophils # (1.3-7.7) k/uL Lymphocytes # (1.0-4.8) k/uL Chloride (98-107) mmol/L Carbon Dioxide 21.1 L (22-30) mmol/L Glucose (74-99) mg/dL Total Bilirubin <0.2 L (0.3-1.2) mg/dL C-Reactive Protein (<1.0) mg/dL Total Protein 5.9 L (6.3-8.2) g/dL Procalcitonin (0.02-0.09) ng/mL
[2023-11-26] MEDS: HYDROcodone/APAP 7.5-325MG 1 EACH TAB PO PRN (16:39)
[2023-11-26] MEDS: methylPREDNISolone SOD SUCCI 125 MG/2 ML VIAL IV SCH (17:41)
--- NOTE | 2023-11-26 22:10 | P.PN ---
Subjective Progress Note Date: 11/26/23 63-year-old male who presents to the emergency department, on November 23, complaining of shortness of breath. The patient also complained of lower extremity edema, and has not been feeling well for about 2 or 3 days prior to admission. The patient is a bit confused this morning. He is able to give a history, but is a bit sketchy. Anyway, he states that for a couple of days, he has not been feeling his normal self. He does use oxygen at home. He uses 2 L, as needed. He does continue to smoke cigarettes. His primary care physician is Dr. Joseph Granger. The patient uses an albuterol inhaler at home, or nebulizer treatments with albuterol sulfate and ipratropium bromide. It does not appear that he sees a lung doctor. Currently, he is on about 3 L of oxygen by nasal cannula. He is getting saline at 75 cc an hour. He is in no respiratory distress. Current laboratory data includes a D-dimer 0.63. A blood gas on 28% oxygen, showing a pO2 of 60, pCO2 of 39, pH is 7.35. White count is 11.1, hemoglobin 10.4, hematocrit 33, and platelet count 333,000. Sodium 142, potassium 3.7, chlorides 111, CO2 22, BUN 20, creatinine 1.03. Glucose 107. N- terminal proBNP of 621. Although the patient does not have any urinary complaints, his urine is suspicious for a bladder infection. His leukocyte esterase is large positive. He has greater than 182 WBCs, and bacteria, in his urine sample. The patient's drug screen was positive for opiates, TCAs, and benzodiazepines. Chest x-ray shows cardiomegaly, and some atelectasis, at the lung bases, left greater than right. 11/26/2023, patient is being seen for a follow-up for shortness of breath and stroke exacerbation. The patient is feeling better. Less short of breath. [Spastic and wheezy. Reports side effects with albuterol treatment and he opted not to take any bronchodilators. Based on that, the patient has been maintained on Symbicort 2000 going to discontinue the oral prednisone for the patient will be Solu-Medrol 60 mg every 6 hours. I am also going to cover this patient with Levaquin as an empiric antibiotic coverage. The patient is currently on 2 L of oxygen by nasal cannula with a pulse ox of 99%. Limited echocardiogram was done on this patient and the patient has normal LV function. Objective - Vital Signs Vital signs: Vital Signs Temp 97.7 F 11/26/23 07:58 Pulse 91 11/26/23 08:37 Resp 18 11/26/23 08:37 BP 129/46 11/26/23 07:58 Pulse Ox 100 11/26/23 09:05 FiO2 Intake & Output 11/25/23 11/26/23 11/26/23 18:59 06:59 18:59 Output Total 200 400 200 Balance -200 -400 -200 Output: Urine 200 400 200 Other: Voiding Method Urinal Urinal Urinal # Voids 4 2 - Exam No acute distress, mildly confused, currently on oxygen, at 3 L. HEENT examination is grossly unremarkable. Mucous membranes are moist. No oral lesions. Neck supple. Full range of motion. No adenopathy thyromegaly or neck vein distention. Cardiovascular examination reveals regular rhythm rate. S1-S2 normal. No S3 or S4. No discernible murmur noted. Heart sounds are distant. Heart rate 90 bpm. Lungs reveal minimal scattered rhonchi. No wheezes. No crackles. Breath sounds are equal bilaterally. Saturations are 99%. Abdomen soft bowel sounds are heard. No masses or tenderness. Extremities are intact. No cyanosis or clubbing. 1+ lower extremity edema. Skin is without rash or lesion. Neurologic examination is brief but nonfocal. - Labs CBC & Chem 7: 11/26/23 04:35 11/26/23 04:35 Labs: Abnormal Lab Results - Last 24 Hours (Table) 11/25/23 11/26/23 11/26/23 Range/Units 13:14 04:35 04:35 RBC 3.39 L (4.40-5.60) X 10*6/uL Hgb 9.3 L (13.0-17.0) g/dL Hct 30.7 L (39.6-50.0) % MCHC 30.3 L (32.0-37.0) g/dL RDW 16.5 H (11.5-14.5) % Carbon Dioxide 21.1 L (21.6-31.8) mmol/L Total Bilirubin <0.2 L (0.3-1.2) mg/dL Total Protein 5.9 L (6.2-8.2) g/dL Procalcitonin 0.14 H (0.02-0.09) ng/mL Assessment and Plan Plan: Acute shortness of breath, likely related to COPD exacerbation, still bronchospastic and wheezy, unable to take bronchodilators due to side effects. Ongoing tobacco use with nicotine addiction. Lower extremity edema, possibly related to underlying cor pulmonale. Possible urinary tract infection. History of gastroesophageal reflux disease. History of hypertension. History of atrial fibrillation. History of chronic back pain. Plan: IV Fluids to KVO Continue Symbicort Start the patient on IV Solu-Medrol and start oral prednisone Give Lasix 20 mg IV push The patient is counseled about the importance of smoking cessation. The patient should have follow-up in the pulmonary office, for complete pulmonary function testing.
[2023-11-26] MEDS: FUROSEMIDE 10 MG/ML 2 ML VIAL IV ONE (22:27)
[2023-11-27] MEDS: FUROSEMIDE 10 MG/ML 2 ML VIAL IV ONE (11:48)
--- NOTE | 2023-11-27 14:01 | P.PN ---
Subjective Progress Note Date: 11/27/23 patient is a 63-year-old gentleman with past medical history significant for COPD, chronic respiratory failure who presented to the ER because of shortness of breath. Patient stated he was not feeling well for the last 2 days, complaining of increasing shortness of breath on rest and on exertion. Patient also complaining of swelling of feet. Patient denies any chest pain. There is no complaint of palpitation. Denies any orthopnea or PND. Patient denies any fever or chills. Initial lab work done in the ER showed WBC 9.1, hemoglobin 10.4, platelet count 333, sodium 142, potassium 3.7, BUN 20, creatinine 1.03, glucose 94, lactate 1.7, calcium 9.6, initially 1.8, troponin 0.012 UA done showed urine nitrite negative, urine leukocyte esterase large amounts, urine WBC more than 182 Urine drug screen positive for opioids, TCA, benzodiazepines EKG done in the ER showed heart rate of 98, no ST segment elevation or depression seen, no T-wave inversions seen. Chest x-ray done in the ER showed borderline heart size, there is some focal patchy atelectasis versus early infiltrate at the left lung base Patient admitted to internal medicine service 11/25. Patient seen and examined. Breathing is improved, gets short of breath on exertion 11/26. Patient seen and examined. States breathing is improved, swelling of legs is also improved REVIEW OF SYSTEMS: CONSTITUTIONAL: No fever, no malaise,. CARDIOVASCULAR: No chest pain, no palpitations, no syncope. PULMONARY: No shortness of breath, no cough, GASTROINTESTINAL: No diarrhea, no nausea, no vomiting, no abdominal pain. NEUROLOGICAL: No headaches, no weakness, PHYSICAL EXAMINATION: GENERAL: The patient is alert and oriented x3, not in any acute distress. Well developed, well nourished. HEENT: Pupils are round and equally reacting to light. EOMI. No scleral icterus. No conjunctival pallor. Normocephalic, atraumatic. No pharyngeal erythema. No thyromegaly. CARDIOVASCULAR: S1 and S2 present. No murmurs, rubs, or gallops. PULMONARY: Diminished breath sound the bases bilaterally, no wheezing or crackl es. ABDOMEN: Soft, nontender, nondistended, normoactive bowel sounds. No palpable organomegaly. MUSCULOSKELETAL: No joint swelling or deformity. EXTREMITIES: No cyanosis, clubbing, slight pitting edema lower extremities NEUROLOGICAL: Gross neurological examination did not reveal any focal deficits. SKIN: No rashes. Assessment and plan Acute on chronic hypoxic respiratory failure Acute COPD exacerbation UTI Tobacco addiction Hypertension History of atrial fibrillation Monitor vital signs Monitor CBC Monitor CMP Continue telemetry monitoring Continue breathing treatments Continue IV Levaquin Continue IV Lasix 2D echo done showed normal left regular size and systolic Pulmonology following ID following Labs and medication were reviewed.. Continue same treatment. Continue with symptomatic treatment. Resume home medication. Monitor labs and vitals. DVT and GI prophylaxis. Further recommendations as per clinical course of the patient Dictation was produced using [employer] dictation software. please excuse any grammatical, word or spelling errors. Objective - Vital Signs Vital signs: Vital Signs Temp 98.3 F 11/27/23 13:42 Pulse 79 11/27/23 13:42 Resp 17 11/27/23 13:42 BP 158/86 11/27/23 13:42 Pulse Ox 97 11/27/23 13:42 FiO2 Intake & Output 11/26/23 11/27/23 11/27/23 18:59 06:59 18:59 Output Total 200 900 Balance -200 -900 Output: Urine 200 900 Other: Voiding Method Urinal Urinal Urinal # Voids 2 - Labs CBC & Chem 7: 11/26/23 04:35 11/26/23 04:35 Labs: Microbiology - Last 24 Hours (Table) 11/25/23 07:02 Urine Culture - Preliminary Urine,Clean Catch
--- NOTE | 2023-11-27 15:19 | P.PN ---
Subjective Progress Note Date: 11/27/23 63-year-old male who presents to the emergency department, on November 23, complaining of shortness of breath. The patient also complained of lower extremity edema, and has not been feeling well for about 2 or 3 days prior to admission. The patient is a bit confused this morning. He is able to give a history, but is a bit sketchy. Anyway, he states that for a couple of days, he has not been feeling his normal self. He does use oxygen at home. He uses 2 L, as needed. He does continue to smoke cigarettes. His primary care physician is Dr. Joseph Granger. The patient uses an albuterol inhaler at home, or nebulizer treatments with albuterol sulfate and ipratropium bromide. It does not appear that he sees a lung doctor. Currently, he is on about 3 L of oxygen by nasal cannula. He is getting saline at 75 cc an hour. He is in no respiratory distress. Current laboratory data includes a D-dimer 0.63. A blood gas on 28% oxygen, showing a pO2 of 60, pCO2 of 39, pH is 7.35. White count is 11.1, hemoglobin 10.4, hematocrit 33, and platelet count 333,000. Sodium 142, potassium 3.7, chlorides 111, CO2 22, BUN 20, creatinine 1.03. Glucose 107. N- terminal proBNP of 621. Although the patient does not have any urinary complaints, his urine is suspicious for a bladder infection. His leukocyte esterase is large positive. He has greater than 182 WBCs, and bacteria, in his urine sample. The patient's drug screen was positive for opiates, TCAs, and benzodiazepines. Chest x-ray shows cardiomegaly, and some atelectasis, at the lung bases, left greater than right. 11/26/2023, patient is being seen for a follow-up for shortness of breath and stroke exacerbation. The patient is feeling better. Less short of breath. [Spastic and wheezy. Reports side effects with albuterol treatment and he opted not to take any bronchodilators. Based on that, the patient has been maintained on Symbicort 2000 going to discontinue the oral prednisone for the patient will be Solu-Medrol 60 mg every 6 hours. I am also going to cover this patient with Levaquin as an empiric antibiotic coverage. The patient is currently on 2 L of oxygen by nasal cannula with a pulse ox of 99%. Limited echocardiogram was done on this patient and the patient has normal LV function. On 11/27/2023, the patient is improved significantly. Less bronchospastic and wheezy and the patient has responded nicely to diuretics. The patient was given 20 mg IV Lasix and the patient has diuresed approximately 1.1 L. Doing well. No specific complaints. No chest pain. No other significant issues otherwise for now. Objective - Vital Signs Vital signs: Vital Signs Temp 97.7 F 11/27/23 07:49 Pulse 82 11/27/23 09:26 Resp 17 11/27/23 08:43 BP 163/90 11/27/23 07:49 Pulse Ox 100 11/27/23 09:15 FiO2 Intake & Output 11/26/23 11/27/23 11/27/23 18:59 06:59 18:59 Output Total 200 900 Balance -200 -900 Output: Urine 200 900 Other: Voiding Method Urinal Urinal Urinal # Voids 2 - Exam No acute distress, mildly confused, currently on oxygen, at 3 L. HEENT examination is grossly unremarkable. Mucous membranes are moist. No oral lesions. Neck supple. Full range of motion. No adenopathy thyromegaly or neck vein distention. Cardiovascular examination reveals regular rhythm rate. S1-S2 normal. No S3 or S4. No discernible murmur noted. Heart sounds are distant. Heart rate 90 bpm. Lungs reveal minimal scattered rhonchi. No wheezes. No crackles. Breath sounds are equal bilaterally. Saturations are 99%. Abdomen soft bowel sounds are heard. No masses or tenderness. Extremities are intact. No cyanosis or clubbing. 1+ lower extremity edema. Skin is without rash or lesion. Neurologic examination is brief but nonfocal. - Labs CBC & Chem 7: 11/26/23 04:35 11/26/23 04:35 Labs: Microbiology - Last 24 Hours (Table) 11/25/23 07:02 Urine Culture - Preliminary Urine,Clean Catch Assessment and Plan Plan: Acute shortness of breath, likely related to COPD exacerbation, unable to take bronchodilators due to side effects. The patient is clinically improving and the patient is obviously less short of breath on today's evaluation. Responded to IV Solu-Medrol. Maintained on Symbicort. Unable to take DuoNeb updrafts. Ongoing tobacco use with nicotine addiction. Lower extremity edema, possibly related to underlying cor pulmonale. Possible urinary tract infection. History of gastroesophageal reflux disease. History of hypertension. History of atrial fibrillation. History of chronic back pain. Plan: Clinically improving Given additional dose of Lasix 20 g IV push IV Fluids to KVO Continue Symbicort Continue with IV Solu-Medrol and start oral prednisone as of tomorrow The patient is counseled about the importance of smoking cessation. The patient should have follow-up in the pulmonary office, for complete pulmonary function testing.
--- NOTE | 2023-11-27 16:27 | P.PN ---
Subjective Progress Note Date: 11/26/23 Principal diagnosis: Reason for follow-up is possible pneumonia Patient is a 63-year-old male with a past medical history significant for COPD reflux hypertension atrial fibrillation presenting to the hospital for evaluation of increasing swelling to bilateral lower extremity and increasing shortness of breath, patient did have mildly elevated white count CT exam with a groundglass opacity concerning for possible pneumonia. On today's evaluation that is 11/26/2023, patient has been afebrile, patient is breathing comfortably and is currently on 2 L current oxygen patient denies having any significant cough no chest pain shortness of breath, patient denies nausea vomiting or diarrhea and no abdominal pain. Patient white count is 5.76 creatinine is 0.9 Pro-Ryan 0.14 influenza RSV COVID testing negative Objective - Vital Signs Vital signs: Vital Signs Temp 97.7 F 11/26/23 07:58 Pulse 91 11/26/23 08:37 Resp 18 11/26/23 08:37 BP 129/46 11/26/23 07:58 Pulse Ox 100 11/26/23 09:05 FiO2 Intake & Output 11/25/23 11/26/23 11/26/23 18:59 06:59 18:59 Output Total 200 400 200 Balance -200 -400 -200 Output: Urine 200 400 200 Other: Voiding Method Urinal Urinal Urinal # Voids 4 2 - Exam GENERAL DESCRIPTION: Middle-age male lying in bed in no distress RESPIRATORY SYSTEM: Unlabored breathing , decreased breath sounds at bases HEART: S1 S2 regular rate and rhythm , ABDOMEN: Soft , no tenderness EXTREMITIES: No edema feet - Labs CBC & Chem 7: 11/26/23 04:35 11/26/23 04:35 Labs: Abnormal Lab Results - Last 24 Hours (Table) 11/25/23 11/25/23 11/25/23 Range/Units 13:14 13:14 13:14 RBC 3.74 L (4.30-5.90) m/uL Hgb 10.4 L (13.0-17.5) gm/dL Hct 34.0 L (39.0-53.0) % MCHC 30.5 L (31.0-37.0) g/dL RDW 15.6 H (11.5-15.5) % Neutrophils # 9.5 H (1.3-7.7) k/uL Lymphocytes # 0.8 L (1.0-4.8) k/uL Chloride 110 H (98-107) mmol/L Carbon Dioxide 18 L (22-30) mmol/L Glucose 116 H (74-99) mg/dL Total Bilirubin (0.3-1.2) mg/dL C-Reactive Protein 4.8 H (<1.0) mg/dL Total Protein 6.2 L (6.3-8.2) g/dL Procalcitonin 0.14 H (0.02-0.09) ng/mL 11/26/23 11/26/23 Range/Units 04:35 04:35 RBC 3.39 L (4.30-5.90) m/uL Hgb 9.3 L (13.0-17.5) gm/dL Hct 30.7 L (39.0-53.0) % MCHC 30.3 L (31.0-37.0) g/dL RDW 16.5 H (11.5-15.5) % Neutrophils # (1.3-7.7) k/uL Lymphocytes # (1.0-4.8) k/uL Chloride (98-107) mmol/L Carbon Dioxide 21.1 L (22-30) mmol/L Glucose (74-99) mg/dL Total Bilirubin <0.2 L (0.3-1.2) mg/dL C-Reactive Protein (<1.0) mg/dL Total Protein 5.9 L (6.3-8.2) g/dL Procalcitonin (0.02-0.09) ng/mL Assessment and Plan (1) Pneumonia Current Visit: Yes Status: Acute Code(s): J18.9 - PNEUMONIA, UNSPECIFIED ORGANISM SNOMED Code(s): 894560277 (2) UTI (urinary tract infection) Current Visit: Yes Status: Acute Code(s): N39.0 - URINARY TRACT INFECTION, SITE NOT SPECIFIED SNOMED Code(s): 07116528 Plan: 1patient presented to hospital with increasing shortness of breath also have increasing swelling to bilateral lower extremity noticed to have some g roundglass patchy opacities on the CT could be related to underlying fluid pneumonia less likely but not entirely excluded. 2patient did have a negative influenza RSV and COVID and negative urine for Legionella antigen 3procalcitonin level mildly elevated at 0.14 4patient to continue with the Levaquin while waiting for the workup to be completed Dictation was produced using [employer] dictation software. please excuse any grammatical, word or spelling errors. Time with Patient: Less than 30
--- NOTE | 2023-11-27 16:28 | P.PN ---
Subjective Progress Note Date: 11/27/23 Principal diagnosis: Reason for follow-up is possible pneumonia Patient is a 63-year-old male with a past medical history significant for COPD reflux hypertension atrial fibrillation presenting to the hospital for evaluation of increasing swelling to bilateral lower extremity and increasing shortness of breath, patient did have mildly elevated white count CT exam with a groundglass opacity concerning for possible pneumonia. On today's evaluation that is 11/27/2023, Patient is afebrile this morning and denies any chills, patient mention breathing comfortably and is currently on room air, patient denies any chest pain occasional cough patient denies any abdominal pain no diarrhea no nausea no vomiting, patient mention feeling better swelling lower extremity has decreased and wants to go home. No new labs has been repeated today Objective - Vital Signs Vital signs: Vital Signs Temp 98.3 F 11/27/23 13:42 Pulse 79 11/27/23 13:42 Resp 17 11/27/23 13:42 BP 158/86 11/27/23 13:42 Pulse Ox 97 11/27/23 13:42 FiO2 Intake & Output 11/26/23 11/27/23 11/27/23 18:59 06:59 18:59 Output Total 200 900 Balance -200 -900 Output: Urine 200 900 Other: Voiding Method Urinal Urinal Urinal # Voids 2 - Exam GENERAL DESCRIPTION: Middle-age male lying in bed in no distress RESPIRATORY SYSTEM: Unlabored breathing , decreased breath sounds at bases HEART: S1 S2 regular rate and rhythm , ABDOMEN: Soft , no tenderness EXTREMITIES: No edema feet - Labs CBC & Chem 7: 11/26/23 04:35 11/26/23 04:35 Labs: Microbiology - Last 24 Hours (Table) 11/25/23 07:02 Urine Culture - Preliminary Urine,Clean Catch Assessment and Plan (1) Pneumonia Current Visit: Yes Status: Acute Code(s): J18.9 - PNEUMONIA, UNSPECIFIED ORGANISM SNOMED Code(s): 275405384 (2) UTI (urinary tract infection) Current Visit: Yes Status: Acute Code(s): N39.0 - URINARY TRACT INFECTION, SITE NOT SPECIFIED SNOMED Code(s): 46279126 Plan: 1patient presented to hospital with increasing shortness of breath also have increasing swelling to bilateral lower extremity noticed to have some groundglass patchy opacities on the CT could be related to underlying fluid pneumonia less likely but not entirely excluded. 2patient did have a negative influenza RSV and COVID and negative urine for Legionella antigen 3procalcitonin level mildly elevated at 0.14 4patient mention improvement in symptoms may consider short course of oral Levaquin or discharge if continue to improve Dictation was produced using [employer] dictation software. please excuse any grammatical, word or spelling errors. Time with Patient: Less than 30
[2023-11-28 09:03] LABS: Basophils # (A) 0 X 10*3/uL (0.00-0.10); Basophils % (A) 0 %; Eosinophils # (A) 0 X 10*3/uL (0.04-0.35); Eosinophils % (A) 0 %; HCT 32.9 % (39.6-50.0); HGB 10.1 g/dL (13.0-17.0); Lymphocytes # (A) 0.48 X 10*3/uL (0.90-5.00); Lymphocytes % (A) 7.2 %; MCH 27.4 pg (27.0-32.0); MCHC 30.7 g/dL (32.0-37.0); MCV 89.2 FL (80.0-97.0); Mean Platelet Volume 10.9 FL (9.5-12.2); Monocytes # (A) 0.52 X 10*3/uL (0.20-1.00); Monocytes % (A) 7.8 %; NRBC Per 100 WBC 0 X 10*3/uL (0.00-0.01); Neutrophils # (A) 5.59 X 10*3/uL (1.80-7.70); Neutrophils % (A) 84.1 %; Platelet Count 280 X 10*3/uL (140-440); RBC 3.69 X 10*6/uL (4.40-5.60); RDW 16.1 % (11.5-14.5); WBC 6.65 X 10*3/uL (4.50-10.00)
[2023-11-28 09:17] LABS: ALT 17 U/L (10-49); AST 12 U/L (14-35); Albumin 3.9 g/dL (3.8-4.9); Albumin/Globulin Ratio 1.86 Ratio (1.60-3.17); Alkaline Phosphatase 89 U/L (41-126); Blood Urea Nitrogen 23.4 mg/dL (9.0-27.0); Calcium 9.3 mg/dL (8.7-10.3); Carbon Dioxide 25.8 mmol/L (21.6-31.8); Chloride 103 mmol/L (96-109); Globulin 2.1 g/dL (1.6-3.3); Glucose 164 mg/dL (70-110); Potassium 3.7 mmol/L (3.5-5.5); Sodium 142 mmol/L (135-145); Total Bilirubin <0.2 mg/dL (0.3-1.2)
--- NOTE | 2023-11-28 13:21 | P.DS ---
Providers Date of admission: 11/24/23 17:23 Expected date of discharge: 11/28/23 Attending physician: Young Simon MD Consults: 11/24/23 23:53 Consult Physician Routine Consulting Provider: Rui Norwood Consult Reason/Comments: SOB Do you want consulting provider notified?: Yes, Notify in am 11/25/23 10:08 Consult Physician Routine Consulting Provider: Madhu Linder Consult Reason/Comments: UTI, pneumonia Do you want consulting provider notified?: Yes Primary care physician: Joseph Granger MD Hospital Course: Discharge diagnoses; Acute on chronic hypoxic respiratory failure Acute COPD exacerbation UTI Tobacco addiction Hypertension History of atrial fibrillation Hospital course; patient is a 63-year-old gentleman with past medical history significant for [employer] D, chronic respiratory failure who presented to the ER because of shortness of breath. Patient stated he was not feeling well for the last 2 days, complaining of increasing shortness of breath on rest and on exertion. Patient also complaining of swelling of feet. Patient denies any chest pain. There is no complaint of palpitation. Denies any orthopnea or PND. Patient denies any fever or chills. Initial lab work done in the ER showed WBC 9.1, hemoglobin 10.4, platelet count 333, sodium 142, potassium 3.7, BUN 20, creatinine 1.03, glucose 94, lactate 1.7, calcium 9.6, initially 1.8, troponin 0.012 UA done showed urine nitrite negative, urine leukocyte esterase large amounts, urine WBC more than 182 Urine drug screen positive for opioids, TCA, benzodiazepines EKG done in the ER showed heart rate of 98, no ST segment elevation or depression seen, no T-wave inversions seen. Chest x-ray done in the ER showed borderline heart size, there is some focal patchy atelectasis versus early infiltrate at the left lung base Patient admitted to internal medicine service 11/25. Patient seen and examined. Breathing is improved, gets short of breath on exertion 7/2. Patient seen and examined. States breathing is improved, swelling of legs is also improved 7/3. Patient seen and examined. States he feels better, wants to go home. Being discharged on oral Levaquin, tapering dose of prednisone and oral Lasix. PHYSICAL EXAMINATION: GENERAL: The patient is alert and oriented x3, not in any acute distress. Well developed, well nourished. HEENT: Pupils are round and equally reacting to light. EOMI. No scleral icterus. No conjunctival pallor. Normocephalic, atraumatic. No pharyngeal erythema. No thyromegaly. CARDIOVASCULAR: S1 and S2 present. No murmurs, rubs, or gallops. PULMONARY: Chest is clear to auscultation, no wheezing or crackles. ABDOMEN: Soft, nontender, nondistended, normoactive bowel sounds. No palpable organomegaly. MUSCULOSKELETAL: No joint swelling or deformity. EXTREMITIES: No cyanosis, clubbing, or pedal edema. NEUROLOGICAL: Gross neurological examination did not reveal any focal deficits. SKIN: No rashes. Dictation was produced using [employer] dictation software. please excuse any grammatical, word or spelling errors. Patient Condition at Discharge: Fair Plan - Discharge Summary Discharge Rx Participant: No New Discharge Prescriptions: New Furosemide [Lasix] 20 mg PO DAILY 30 Days #30 tab predniSONE 10 mg PO DAILY 8 Days #20 tab Budesonide-Formot 160-4.5 Mcg [Symbicort 160-4.5 Mcg Inhaler] 2 puff INHALATION RT-BID #1 each Levofloxacin [Levaquin] 500 mg PO DAILY 4 Days #4 tab Continue DULoxetine HCL [Cymbalta] 60 mg PO DAILY DULoxetine HCL [Cymbalta] 30 mg PO HS HYDROcodone/APAP 7.5-325MG [[place] 7.5-325] 1 tab PO BID PRN 3 Days #6 tab PRN Reason: Pain Tamsulosin [Flomax] 0.4 mg PO DAILY Ipratropium-Albuterol Nebulize [Duoneb 0.5 mg-3 mg/3 ml Soln] 3 ml INHALATION RT-Q6H PRN PRN Reason: Shortness Of Breath Albuterol Sulfate [Albuterol Sulfate Hfa] 2 puff INHALATION RT-QID PRN PRN Reason: Shortness Of Breath Baclofen [Lioresal] 20 mg PO TID Discharge Medication List DULoxetine HCL [Cymbalta] 60 mg PO DAILY 04/15/22 [History] DULoxetine HCL [Cymbalta] 30 mg PO HS 05/10/23 [History] Tamsulosin [Flomax] 0.4 mg PO DAILY 05/10/23 [History] Albuterol Sulfate [Albuterol Sulfate Hfa] 2 puff INHALATION RT-QID PRN 10/12/23 [History] Ipratropium-Albuterol Nebulize [Duoneb 0.5 mg-3 mg/3 ml Soln] 3 ml INHALATION RT-Q6H PRN 10/12/23 [History] HYDROcodone/APAP 7.5-325MG [[place] 7.5-325] 1 tab PO BID PRN 3 Days #6 tab 10/30/23 [Rx] Baclofen [Lioresal] 20 mg PO TID 11/24/23 [History] Budesonide-Formot 160-4.5 Mcg [Symbicort 160-4.5 Mcg Inhaler] 2 puff INHALATION RT-BID #1 each 11/28/23 [Rx] Furosemide [Lasix] 20 mg PO DAILY 30 Days #30 tab 11/28/23 [Rx] Levofloxacin [Levaquin] 500 mg PO DAILY 4 Days #4 tab 11/28/23 [Rx] predniSONE 10 mg PO DAILY 8 Days #20 tab 11/28/23 [Rx] Follow up Appointment(s)/Referral(s): Joseph Gragner MD [Primary Care Provider] - 1-2 days Cathy Christian MD [STAFF PHYSICIAN] - 1 Week Discharge Disposition: HOME SELF-CARE
[2023-11-28 13:51] VITALS: BP 170/83; PULSE 95; RESP 15; TEMP 98.5
--- NOTE | 2023-11-28 16:22 | P.PN ---
Subjective Progress Note Date: 11/28/23 Principal diagnosis: Reason for follow-up is possible pneumonia Patient is a 63-year-old male with a past medical history significant for COPD reflux hypertension atrial fibrillation presenting to the hospital for evaluation of increasing swelling to bilateral lower extremity and increasing shortness of breath, patient did have mildly elevated white count CT exam with a groundglass opacity concerning for possible pneumonia. On today's evaluation that is 11/28/2023,the patient denies any fever or any chills, patient is breathing comfortably on room air, the patient denies chest pain shortness of breath and no significant cough, patient denies abdominal pain, no nausea vomiting or diarrhea. Patient mention feeling better wants to go home. Patient white count is 6.65 creatinine 0.9 urine cultures pending Objective - Vital Signs Vital signs: Vital Signs Temp 98.4 F 11/28/23 07:48 Pulse 80 11/28/23 09:14 Resp 17 11/28/23 08:00 BP 168/90 11/28/23 07:48 Pulse Ox 97 11/28/23 07:48 FiO2 Intake & Output 11/27/23 11/28/23 11/28/23 18:59 06:59 18:59 Other: Voiding Method Urinal Urinal Urinal # Voids 5 3 - Exam GENERAL DESCRIPTION: Middle-age male lying in bed in no distress RESPIRATORY SYSTEM: Unlabored breathing , decreased breath sounds at bases HEART: S1 S2 regular rate and rhythm , ABDOMEN: Soft , no tenderness EXTREMITIES: No edema feet - Labs CBC & Chem 7: 11/28/23 04:04 11/28/23 04:04 Labs: Abnormal Lab Results - Last 24 Hours (Table) 11/28/23 11/28/23 Range/Units 04:04 04:04 RBC 3.69 L (4.40-5.60) X 10*6/uL Hgb 10.1 L (13.0-17.0) g/dL Hct 32.9 L (39.6-50.0) % MCHC 30.7 L (32.0-37.0) g/dL RDW 16.1 H (11.5-14.5) % Immature Gran # 0.06 H (0.00-0.04) X 10*3/uL Lymphocytes # 0.48 L (0.90-5.00) X 10*3/uL Eosinophils # 0 L (0.04-0.35) X 10*3/uL Anion Gap 13.20 H (4.00-12.00) mmol/L BUN/Creatinine Ratio 26.00 H (12.00-20.00) Ratio Glucose 164 H (70-110) mg/dL Total Bilirubin <0.2 L (0.3-1.2) mg/dL AST 12 L (14-35) U/L Total Protein 6.0 L (6.2-8.2) g/dL Microbiology - Last 24 Hours (Table) 11/25/23 07:02 Urine Culture - Preliminary Urine,Clean Catch Assessment and Plan (1) Pneumonia Status: Acute Code(s): J18.9 - PNEUMONIA, UNSPECIFIED ORGANISM SNOMED Code(s): 609905592 (2) UTI (urinary tract infection) Status: Acute Code(s): N39.0 - URINARY TRACT INFECTION, SITE NOT SPECIFIED SNOMED Code(s): 21822558 Plan: 1patient presented to hospital with increasing shortness of breath also have increasing swelling to bilateral lower extremity noticed to have some groundglass patchy opacities on the CT could be related to underlying fluid pneumonia less likely but not entirely excluded. 2patient did have a negative influenza RSV and COVID and negative urine for Legionella antigen 3procalcitonin level mildly elevated at 0.14 4patient has shown clinical improvement and wants to go home consider few days of oral Levaquin on discharge discussed with admitting physician Dictation was produced using [employer] dictation software. please excuse any grammatical, word or spelling errors. Time with Patient: Less than 30
--- NOTE | 2023-11-28 18:54 | P.PN ---
Subjective Progress Note Date: 11/28/23 63-year-old male who presents to the emergency department, on November 23, complaining of shortness of breath. The patient also complained of lower extremity edema, and has not been feeling well for about 2 or 3 days prior to admission. The patient is a bit confused this morning. He is able to give a history, but is a bit sketchy. Anyway, he states that for a couple of days, he has not been feeling his normal self. He does use oxygen at home. He uses 2 L, as needed. He does continue to smoke cigarettes. His primary care physician is Dr. Joseph Granger. The patient uses an albuterol inhaler at home, or nebulizer treatments with albuterol sulfate and ipratropium bromide. It does not appear that he sees a lung doctor. Currently, he is on about 3 L of oxygen by nasal cannula. He is getting saline at 75 cc an hour. He is in no respiratory distress. Current laboratory data includes a D-dimer 0.63. A blood gas on 28% oxygen, showing a pO2 of 60, pCO2 of 39, pH is 7.35. White count is 11.1, hemoglobin 10.4, hematocrit 33, and platelet count 333,000. Sodium 142, potassium 3.7, chlorides 111, CO2 22, BUN 20, creatinine 1.03. Glucose 107. N- terminal proBNP of 621. Although the patient does not have any urinary complaints, his urine is suspicious for a bladder infection. His leukocyte esterase is large positive. He has greater than 182 WBCs, and bacteria, in his urine sample. The patient's drug screen was positive for opiates, TCAs, and benzodiazepines. Chest x-ray shows cardiomegaly, and some atelectasis, at the lung bases, left greater than right. 11/26/2023, patient is being seen for a follow-up for shortness of breath and stroke exacerbation. The patient is feeling better. Less short of breath. [Spastic and wheezy. Reports side effects with albuterol treatment and he opted not to take any bronchodilators. Based on that, the patient has been maintained on Symbicort 2000 going to discontinue the oral prednisone for the patient will be Solu-Medrol 60 mg every 6 hours. I am also going to cover this patient with Levaquin as an empiric antibiotic coverage. The patient is currently on 2 L of oxygen by nasal cannula with a pulse ox of 99%. Limited echocardiogram was done on this patient and the patient has normal LV function. On 11/27/2023, the patient is improved significantly. Less bronchospastic and wheezy and the patient has responded nicely to diuretics. The patient was given 20 mg IV Lasix and the patient has diuresed approximately 1.1 L. Doing well. No specific complaints. No chest pain. No other significant issues otherwise for now. on today's evaluation of 11/29/2023, the patient is doing well, no specific complaints. The patient feels better and the patient will be discharged home on a course of prednisone burst taper and oral Lasix. Reports improvement in lower extremity edema. Blood work from today shows a WBC count 6.6 with hemoglobin 10.1 and platelet count of 280. Electrolytes are all stable. Renal function is also stable. Fluid balance has been essentially negative. No other complaints otherwise for now. The patient had a procalcitonin level of 0.14. The viral screen has been negative. ID is on the case. Will complete a course of Levaquin on outpatient basis. Objective - Vital Signs Vital signs: Vital Signs Temp 98.5 F 11/28/23 13:50 Pulse 95 11/28/23 13:50 Resp 15 11/28/23 13:50 BP 170/83 11/28/23 13:50 Pulse Ox 98 11/28/23 13:50 FiO2 Intake & Output 11/27/23 11/28/23 11/28/23 18:59 06:59 18:59 Other: Voiding Method Urinal Urinal Urinal # Voids 5 3 - Exam No acute distress, mildly confused, currently on oxygen, at room air HEENT examination is grossly unremarkable. Mucous membranes are moist. No oral lesions. Neck supple. Full range of motion. No adenopathy thyromegaly or neck vein distention. Cardiovascular examination reveals regular rhythm rate. S1-S2 normal. No S3 or S4. No discernible murmur noted. Heart sounds are distant. Heart rate 90 bpm. Lungs reveal minimal scattered rhonchi. No wheezes. No crackles. Breath sounds are equal bilaterally. Abdomen soft bowel sounds are heard. No masses or tenderness. Extremities are intact. No cyanosis or clubbing. 1+ lower extremity edema. Skin is without rash or lesion. Neurologic examination is brief but nonfocal. - Labs CBC & Chem 7: 11/28/23 04:04 11/28/23 04:04 Labs: Abnormal Lab Results - Last 24 Hours (Table) 11/28/23 11/28/23 Range/Units 04:04 04:04 RBC 3.69 L (4.40-5.60) X 10*6/uL Hgb 10.1 L (13.0-17.0) g/dL Hct 32.9 L (39.6-50.0) % MCHC 30.7 L (32.0-37.0) g/dL RDW 16.1 H (11.5-14.5) % Immature Gran # 0.06 H (0.00-0.04) X 10*3/uL Lymphocytes # 0.48 L (0.90-5.00) X 10*3/uL Eosinophils # 0 L (0.04-0.35) X 10*3/uL Anion Gap 13.20 H (4.00-12.00) mmol/L BUN/Creatinine Ratio 26.00 H (12.00-20.00) Ratio Glucose 164 H (70-110) mg/dL Total Bilirubin <0.2 L (0.3-1.2) mg/dL AST 12 L (14-35) U/L Total Protein 6.0 L (6.2-8.2) g/dL Microbiology - Last 24 Hours (Table) 11/25/23 07:02 Urine Culture - Final Urine,Clean Catch Nilda albicans Assessment and Plan Plan: Acute shortness of breath, likely related to COPD exacerbation, unable to take bronchodilators due to side effects. The patient is clinically improving and the patient is obviously less short of breath on today's evaluation. Responded to IV Solu-Medrol. Maintained on Symbicort. Unable to take DuoNeb updrafts. Ongoing tobacco use with nicotine addiction. Lower extremity edema, possibly related to underlying cor pulmonale. Improved with Lasix and there is improvement in lower extremity edema Possible urinary tract infection. History of gastroesophageal reflux disease. History of hypertension. History of atrial fibrillation. History of chronic back pain. Plan: Clinically improved and the patient can be discharged home on Symbicort, prednisone burst taper and to complete the course of prednisone burst taper and Levaquin outpatient basis Fluid restriction The patient is counseled about the importance of smoking cessation. The patient should have follow-up in the pulmonary office, for complete pulmonary function testing. Cleared for discharge from pulmonary standpoint.
--- NOTE | 2023-12-04 15:17 | CDI ---
Documentation Clarification Form Date: 12/04/2023 03:00:34 PM From: Zhane Murray Admit Date: 11/24/2023 05:23:00 PM Patient Name: Fausto Willis Visit Number: [id number] Discharge Date: 11/28/2023 02:18:00 PM ATTENTION: The Clinical Documentation Specialists (CDI) and [facility] Coding Staff appreciate your assistance in clarifying documentation. Please respond to the clarification below the line at the bottom and electronically sign. The CDI & [facility] Coding staff will review the response and follow-up if needed. Please note: Queries are made part of the Legal Health Record. If you have any questions, please contact the author of this message via ITS. Dr. Francisco Javier Lewis Possible pneumonia is documented in Dr Burris consultation, and progress notes, but is not noted in subsequent documentation or the Discharge Summary. Clarification is requested. Medical Consultation Dr Linder 11/[address] scan, and pneumonia Medical Consultation Dr Linder 11/24 patient presented with increasing shortness of breath, also having increasing swelling to bilateral lower extremity, noticed some ground glass patchy opacities on the CT, could be related to underlying fluid, pneumonia less likely but not entirely excluded History/Risk Factors: patient is a 63 year old male, with a history of COPD, chronic respiratory failure, GERD, afib, and pneumonia. Clinical Indicators: patient presented with SOB and not feeling well. He was diagnosed with Acute on chronic hypoxic respiratory failure, acute COPD exacerbation, UTI, Smoking, Hypertension, and possible pneumonia. WBC: 11.1, procalcitonin 0.14 Chest x-ray: some focal patchy atelectasis vs early infiltrate at the left base. CT Chest: no evidence of pulmonary embolism. Patchy ground glass opacities in the bilateral lungs, likely represents infectious or inflammatory process. Treatment: prednisone, Lasix, was started on Levaquin and discharged on Levaquin for 4 additional days Please clarify if the pneumonia is: [ x ] Pneumonia confirmed, remains under treatment [ ] Pneumonia confirmed, resolved [ ] Pneumonia ruled out [ ] Other condition, please specify [ ] Unable to determine MTDD
== END 2023-11-28 14:18 | disposition home or self-care (01) | DRG 139 ==
LOC: EC 14:36 → 4SSUR 17:23
PROVIDERS: ADMIT Internal Medicine; ATTEND Internal Medicine
DX: J18.9 Pneumonia, unspecified organism (principal); J44.1 Chronic obstructive pulmonary disease with (acute) exacerbation; Z20.822 Contact with and (suspected) exposure to COVID-19; J44.0 Chronic obstructive pulmonary disease with (acute) lower respiratory infection; J96.21 Acute and chronic respiratory failure with hypoxia; N39.0 Urinary tract infection, site not specified; K21.9 Gastro-esophageal reflux disease without esophagitis; Z88.8 Allergy status to other drugs, medicaments and biological substances; Z98.1 Arthrodesis status; Z98.42 Cataract extraction status, left eye; Z98.41 Cataract extraction status, right eye
CPT/HCPCS: 36415; 36600; 71046; 71275; 80053; 80306; 81001; 82805; 83605; 83735; 83880; 84145; 84484; 85025; 85379; 85610; 85730; 86140; 87086; 87636; 93005; 93308; 94640; 94664; 94760; 96365; 96375; 99285

== ENCOUNTER 2023-12-10 15:58 | Inpatient (IN) | payer OTHER ==
[2023-12-10] MEDS: MIDAZOLAM 2 MG/2 ML VIAL IM ONE ×2 (16:14)
[2023-12-10] MEDS: IPRATROPIUM-ALBUTEROL 3 ML NEB INHALATION STA (16:15)
[2023-12-10] MEDS: LORazepam 2 MG/ML INJ IM STA (16:24)
--- NOTE | 2023-12-10 16:27 | ED ---
Altered Mental Status HPI - General Chief Complaint: Altered Mental Status Stated Complaint: AMS Time Seen by Provider: 12/10/23 16:00 Source: EMS Mode of arrival: EMS Limitations: altered mental status - History of Present Illness Initial Comments: History of limited by patient's altered mental status. He is a 63-year-old male presenting for agitation and shortness of breath, per EMS. Patient with blood glucose 116. Patient repetitively swearing en route. Currently denies pain though is agitated and altered. - Related Data Home Medications Medication Instructions Recorded Confirmed DULoxetine HCL [Cymbalta] 60 mg PO DAILY 04/15/22 12/10/23 DULoxetine HCL [Cymbalta] 30 mg PO HS 05/10/23 12/10/23 Tamsulosin [Flomax] 0.4 mg PO DAILY 05/10/23 12/10/23 Albuterol Sulfate [Albuterol 2 puff INHALATION RT-QID PRN 10/12/23 12/10/23 Sulfate Hfa] Ipratropium-Albuterol Nebulize 3 ml INHALATION RT-Q6H PRN 10/12/23 12/10/23 [Duoneb 0.5 mg-3 mg/3 ml Soln] Baclofen [Lioresal] 20 mg PO TID 11/24/23 12/10/23 Fluticasone/Umeclidin/Vilanter 1 puff INHALATION RT-DAILY 12/10/23 12/10/23 [Trelegy Ellipta 100-62.5-25] Previous Rx's Medication Instructions Recorded HYDROcodone/APAP 7.5-325MG [[place] 1 tab PO BID PRN 3 Days #6 tab 10/30/23 7.5-325] Furosemide [Lasix] 20 mg PO DAILY 30 Days #30 tab 11/28/23 methylPREDNISolone [Medrol Dose 0 mg PO DIRECTED #1 packet 12/13/23 Pack] Allergies Allergy/AdvReac Type Severity Reaction Status Date / Time sacubitril [From Entresto] Allergy hives Verified 12/10/23 18:09 trazodone Allergy Rash/Hives Verified 12/10/23 18:09 valsartan [From Entresto] Allergy hives Verified 12/10/23 18:09 Review of Systems ROS Statement: Those systems with pertinent positive or pertinent negative responses have been documented in the HPI. ROS Other: All systems not noted in ROS Statement are negative. Limitations: ROS unobtainable due to patients medical condition Past Medical History Past Medical History: Atrial Fibrillation, COPD, GERD/Reflux, Hypertension, Pneumonia Additional Past Medical History / Comment(s): back pain spinal cord pinched in neck. SOB with activity History of Any Multi-Drug Resistant Organisms: None Reported Past Surgical History: Back Surgery Additional Past Surgical History / Comment(s): neck fusion,rt eye surgery, rt hand surgery, cateracts Past Anesthesia/Blood Transfusion Reactions: No Reported Reaction Past Psychological History: Depression Smoking Status: Current every day smoker Past Alcohol Use History: None Reported Past Drug Use History: Marijuana - Past Family History Mother History Unknown: Yes Family Medical History: Myocardial Infarction (PA) Additional Family Medical History / Comment(s): from [place] General Exam - General Exam Comments Initial Comments: PE: CONSTITUTIONAL: ill appearing, agitated, diaphoretic, pale SKIN: Cool, damp, no jaundice hives, petechiae EYES: pupils are equally round, extraocular movements intact without nystagmus, clear conjunctiva, non-icteric sclera HENT: normocephalic, atraumatic, moist mucus membranes, oropharynx clear without exudates NECK: Nontender and supple full range of motion PULMONARY: Wheezes bilaterally, without rhonchi, or rales, normal excursion, no accessory muscle use and no stridor CARDIOVASCULAR: Tachycardic rate, regular rhythm, normal S1 and S2. No appreciated murmurs. Strong radial pulses with intact distal perfusion GASTROINTESTINAL: soft, non-tender, non-distended, no palpable masses, no rebound or guarding LYMPHATICS: no edema in lower extremities MUSCULOSKELETAL: Extremities are nontender to palpation and have no gross deformity, no edema, redness, or swelling NEUROLOGIC: _a/o x 2, GCS 14, rapid, pressured speech, repetitive swearing saying " Son of a Bitch", "God Damn it", "I have to pee", "Can I please use the bathroom?", Moves all extremities x 4 without motor or sensory deficit. No clonus or lead pip rigidity. PSYCHIATRIC: agitated mood, thought process appears confused Course Vital Signs 12/10/23 12/10/23 12/10/23 16:08 16:58 17:14 Temperature Pulse Rate 138 H 104 H 98 Respiratory 14 Rate Blood Pressure 114/91 O2 Sat by Pulse 100 Oximetry 12/10/23 12/10/23 12/10/23 17:41 19:00 19:57 Temperature 97.1 F L Pulse Rate 101 H 90 86 Respiratory 18 16 Rate Blood Pressure 129/86 124/86 O2 Sat by Pulse 94 L 99 Oximetry 12/10/23 12/10/23 12/11/23 22:30 23:18 01:07 Temperature Pulse Rate 101 H 77 71 Respiratory 16 10 L Rate Blood Pressure 112/71 O2 Sat by Pulse 98 98 98 Oximetry 12/11/23 12/11/23 12/11/23 01:48 03:34 04:14 Temperature 98.2 F Pulse Rate 86 110 H Respiratory 8 L 24 Rate Blood Pressure 159/103 166/106 O2 Sat by Pulse 100 98 Oximetry 12/11/23 12/11/23 12/11/23 06:45 07:45 08:00 Temperature Pulse Rate 92 80 93 Respiratory 12 18 18 Rate Blood Pressure 159/145 168/82 157/95 O2 Sat by Pulse 97 99 94 L Oximetry 12/11/23 12/11/23 12/11/23 08:10 08:22 09:00 Temperature Pulse Rate 87 84 95 Respiratory 18 Rate Blood Pressure 155/86 O2 Sat by Pulse 95 Oximetry 12/11/23 12/11/23 12/11/23 10:00 11:36 11:40 Temperature Pulse Rate 96 90 98 Respiratory 18 18 Rate Blood Pressure 108/79 130/90 O2 Sat by Pulse 93 L 95 Oximetry 12/11/23 12/11/23 12/11/23 11:45 12:00 13:00 Temperature Pulse Rate 96 100 89 Respiratory 18 18 Rate Blood Pressure 119/86 114/73 O2 Sat by Pulse 93 L 94 L Oximetry 12/11/23 12/11/23 12/11/23 14:00 15:17 15:27 Temperature Pulse Rate 92 88 92 Respiratory 18 Rate Blood Pressure 118/69 O2 Sat by Pulse 93 L Oximetry 12/11/23 12/11/23 12/11/23 17:00 18:00 18:44 Temperature Pulse Rate 98 99 102 H Respiratory 18 18 18 Rate Blood Pressure 110/67 98/67 104/78 O2 Sat by Pulse 98 98 99 Oximetry - Reevaluation(s) Reevaluation #1: Patient agitated on arrival. Rocking back and forth, repetitively swearing "saying "goddamnit" multiple times. Patient is unable to provide much history beyond this. Keeps saying he needs to use bathroom. Attempted to help patient urinate however patient unable to urinate. Patient given 2 mg IM Versed without effect. Another 2 mg IM Versed were given without change in agitation . 1 mg IM Ativan was given. Patient continued to be agitated. Unable to obtain IV. Also notably diaphoretic. chest x-Anticholinergic syndrome and serotonin syndrome considered possible cause patient's altered mental status so initially medications were limited to benzodiazepines however due to persistent agitation 5 mg IM Zyprexa ordered and given. 12/10/23 16:32 12/13/23 19:13 Reevaluation #2: Patient given 5 mg IM Zyprexa, 4 mg IV Versed. His agitation improved and he is sleeping comfortably, pulse ox 100%, blood pressure stable, tachycardia improving, heart rate 112. He is still somewhat restless however will forego additional sedating medications in an effort to avoid over sedating the patient and causing respiratory depression. Patient's and daughter at bedside, states that for the time being patient is a full code. They report to me that patient was restless last night walking throughout the house, getting up multiple times. This morning he continued to be restless, walking in and out of the house, he called his and began swearing at her. Patient's daughter states he gets like this when he is sick. The patient's and daughter state that the patient has not been drinking alcohol. They state that they control patient's medications and there is no way he could have overdosed on his medications. He has been out of his home antidepressant for 2 to 3 days. 12/10/23 16:55 12/13/23 19:14 12/13/23 19:15 Reevaluation #3: Patient noted to have 1+ protein, 1+ glucose, small cassette esterase, 10 white blood cells, 5 hyaline casts, moderate mucus, rare budding yeast in urine, UDS positive for opiates, benzodiazepines and marijuana, VBG within normal limits, white blood cell count elevated with leukocytosis 27.2, neutrophilia neutrophils 23.3, will add antibiotics to cover for sepsis, lactic ordered, will add blood cultures 12/10/23 17:40 Reevaluation #4: CT chest abdomen pelvis reviewed, read by radiologist as multifocal hazy and patchy groundglass opacities with groundglass infiltrates in the upper to mid lungs, similar to and worsened from 11/25/2023 consider atypical/COVID-pneumonia or interstitial pneumonitis, slight atrophic right kidney, may be underlying right-sided renal artery stenosis, circumferential wall thickening mid to distal sigmoid possibly nonspecific mild colitis. Will add legionella, antigen, strep antigen, covid/flu testing and azithromycin 12/10/23 18:24 12/13/23 19:16 12/13/23 19:17 Medical Decision Making - Medical Decision Making Was pt. sent in by a medical professional or institution (, PA, EXTRACTIONS TECHNOLOGIST, urgent care, hospital, or care home...) When possible be specific @ -No Did you speak to anyone other than the patient for history (EMS, parent, family, police, friend...)? What history was obtained from this source @ -Once patient's daughter and arrived at bedside, obtain further history. They state that patient was restless this morning, walking in and out of the house, walking in and out of rooms, called his and began swearing at her, they state patient does not act like this unless he has an active infection. Patient's daughter states that he fell this morning, witnessed by daughter, but did not suffer any head or neck trauma, patient denies any pain. They state the patient has been out of his antidepressants recently, patient's controls medications shows no chance of recent overdose of medications. They deny the patient has had any excess alcohol. Did you review nursing and triage notes (agree or disagree)? Why? @ -I reviewed and agree with nursing and triage notes Were old charts reviewed (outside hosp., previous admission, EMS record, old EKG, old radiological studies, urgent care reports/EKG's, care home records)? Report findings @ -Old charts were reviewed, patient most recently in the hospital for COPD exacerbation, discharged on 11/28/2023 Differential Diagnosis (chest pain, altered mental status, abdominal pain women, abdominal pain men, vaginal bleeding, weakness, fever, dyspnea, syncope, headache, dizziness, GI bleed, back pain, seizure, CVA, palpatations, mental health, musculoskeletal)? @ -Differential Altered Mental Status: Hypoglycemia, hypercapnia, ETOH, medication overdose, trauma, myxedema coma, HTN encephalopathy, infection, psychosis, intracranial mass, hepatic encephalopathy, this is not meant to be an all-inclusive list. Patient's symptoms have seemed to progress throughout the night and into the morning. He has no focal neurologic deficits, I do not suspect acute CVA at this time and therefor do not feel CTA head and neck indicated at this point EKG interpreted by me (3pts min.). @Sinus tachycardia Artifact present Rate 110 bpm Normal intervals Left axis deviation Compared EKG performed on 11/24/2023, T waves more prominent in leads I, 2, aVR, V3 through V6 X-rays interpreted by me (1pt min.). @ -Chest x-ray performed, showed diffuse interstitial opacities, read by radiologist as diffuse interstitial opacities, agree with radiologist interpretation CT interpreted by me (1pt min.). @ -CT brain read by the radiologist as no acute process, I agree with radiologist rotation, I see no evidence of hemorrhage, mass or other acute intracranial process, CT chest abdomen pelvis noted to have diffuse interstitial opacities, I agree with radiologist interpretation, I did see diffuse interstitial opacities as noted in the bilateral upper lung interiano as noted by radiology U/S interpreted by me (1pt. min.). @ -None done What meds were considered but not given or refused? Why? @ -I did consider Precedex however patient's symptoms became more well- controlled after Ativan, Versed and Zyprexa Did you discuss the management of the patient with other professionals (professionals i.e. , PA, EXTRACTIONS TECHNOLOGIST, lab, RT, psych nurse, social media marketing specialist, elevator adjuster, teacher, customs and immigration officer, binder caser)? Give summary @ -No Was smoking cessation discussed for >3mins.? @ -No Was critical care preformed (if so, how long)? @ -Yes, 60 minutes, control, evaluation of and treatment of acute agitation Were there social determinants of health that impacted care today? How? (Homelessness, low income, unemployed, alcoholism, drug addiction, transportation, low edu. Level, literacy, decrease access to med. care, [place] [facility], rehab)? @ -No Was there de-escalation of care discussed even if they declined (Discuss DNR or withdrawal of care, Hospice)? DNR status @ -I did discuss CODE STATUS with patient's and daughter, patient is cu rrently a full code What co-morbidities impacted this encounter? (DM, HTN, Smoking, COPD, CAD, Cance r, CVA, ARF, Chemo, Hep., AIDS, mental health diagnosis, sleep apnea, morbid obesity)? @ -COPD Was patient admitted / discharged? Hospital course, mention meds given and route, prescriptions, significant lab abnormalities, going to OR and other pertinent info. @ -Hospital course Patient seen and assessed on arrival. Agitated. Repetitive swearing. Difficult to redirect. Given multiple doses of benzodiazepines and 5 mg IM Zyprexa. This did eventually calm control agitation. Given [id number] nebulizer treatments x 3, Solu-Medrol, taken for CT brain, showed no acute intracranial process. UA notable for leukocytosis, positive leukocyte esterase and white cells in urine, budding yeast in urine. Significant leukocytosis on labs. . Ordered antibiotic coverage, blood cultures, CT chest/abdomen/pelvis added to evaluate for possible sources of infection. CT cspine was not indicated- daughter witnessed patient's fall earlier and denies that the patient suffered any head or neck trauma, additionally patient ranging his neck and extremities through full ROM without motor or sensory deficit. Patient admitted to hospitalist, Dr. Saba. Requested zosyn by added for further antibiotics coverage, as well as diflucan. Requested consul be placed to Dr. Middleton, ID and pulmnology. Of note, after patient was accepted for observation, he did board in the ED. at approximately 1 AM, patient's nurse notified me that she was concerned for patient's appearance. I did go to bedside to assess patient. Vitals stable, no hypotension, no tachycardia, pulse ox 98%. Patient sleeping and respirations unlabored. We decided to obtain and ABG to ensure no CO2 retention. ABG showed slightly low CO2, no hypercapnia, CO2 31, pO2 126. RT will place patient on end tidal CO2 monitor to ensure adequate respirations. I requested RN also notify admitting physician. I also called Tomasz, EXTRACTIONS TECHNOLOGIST with pulmonary, to present patient's case, so that, should patient decompensate overnight, he will also be aware of patient's case and history if further intervention by critical care team necessary. Undiagnosed new problem with uncertain prognosis? @ -Yes Drug Therapy requiring intensive monitoring for toxicity (Heparin, Nitro, Insulin, Cardizem)? @ -No Were any procedures done? @ -No Diagnosis/symptom? @ -Acute encephalopathy, sepsis Acute, or Chronic, or Acute on Chronic? @ -Acute Uncomplicated (without systemic symptoms) or Complicated (systemic symptoms)? @ -Complicated Exacerbation, Progression, or Severe Exacerbation? @ -No Poses a threat to life or bodily function? How? (Chest pain, [place], PA, pneumonia, PE, COPD, DKA, ARF, appy, cholecystitis, CVA, Diverticulitis, Homicidal, Suicidal, threat to staff... and all critical care pts) @ Yes,if sepsis were to progress could go into septic shock, causing , could continue to worsen patient's altered mental status - Lab Data Result diagrams: 12/12/23 05:33 12/12/23 05:33 Lab Results 12/10/23 12/10/23 12/10/23 Range/Units 16:33 16:33 16:33 WBC 27.2 H (3.8-10.6) k/uL RBC 5.01 (4.30-5.90) m/uL Hgb 14.2 D (13.0-17.5) gm/dL Hct 45.5 (39.0-53.0) % MCV 90.8 (80.0-100.0) fL MCH 28.3 (25.0-35.0) pg MCHC 31.1 (31.0-37.0) g/dL RDW 15.6 H (11.5-15.5) % Plt Count 272 (150-450) k/uL MPV 8.9 Neutrophils % 86 % Lymphocytes % 7 % Monocytes % 6 % Eosinophils % 1 % Basophils % 0 % Neutrophils # 23.3 H (1.3-7.7) k/uL Lymphocytes # 2.0 (1.0-4.8) k/uL Monocytes # 1.5 H (0-1.0) k/uL Eosinophils # 0.1 (0-0.7) k/uL Basophils # 0.1 (0-0.2) k/uL Hypochromasia Slight PT 9.5 L (10.0-12.5) sec INR 0.8 (<1.2) APTT 21.6 L (22.0-30.0) sec Sample Site ABG pH (7.35-7.45) ABG pCO2 (35-45) mmHg ABG pO2 (83-108) mmHg ABG HCO3 (21-25) mmol/L ABG Total CO2 (19-24) mmol/L ABG O2 Saturation (94-97) % ABG Base Excess mmol/L Alonso Test VBG pH (7.31-7.41) VBG pCO2 (37-51) mmHg VBG HCO3 (24-28) mmol/L FiO2 % Sodium (137-145) mmol/L Potassium (3.5-5.1) mmol/L Chloride (98-107) mmol/L Carbon Dioxide (22-30) mmol/L Anion Gap mmol/L BUN (9-20) mg/dL Creatinine (0.66-1.25) mg/dL Est GFR (CKD-EPI)AfAm (>60 ml/min/1.73 sqM) Est GFR (CKD-EPI)NonAf (>60 ml/min/1.73 sqM) Glucose (74-99) mg/dL POC Glucose (mg/dL) (70-110) mg/dL POC Glu Mixed Livestock Farm Worker ID Plasma Lactic Acid Pierre (0.7-2.0) mmol/L Calcium (8.4-10.2) mg/dL Magnesium (1.6-2.3) mg/dL Total Bilirubin (0.2-1.3) mg/dL AST (17-59) U/L ALT (4-49) U/L Alkaline Phosphatase (38-126) U/L Ammonia (<30) umol/L Troponin I (0.000-0.034) ng/mL Total Protein (6.3-8.2) g/dL Albumin (3.5-5.0) g/dL TSH (0.465-4.680) mIU/L Urine Color Yellow Urine Appearance Clear (Clear) Urine pH 6.0 (5.0-8.0) Ur Specific Hardy 1.031 (1.001-1.035) Urine Protein 1+ H (Negative) Urine Glucose (UA) 1+ H (Negative) Urine Ketones Negative (Negative) Urine Blood Negative (Negative) Urine Nitrite Negative (Negative) Urine Bilirubin Negative (Negative) Urine Urobilinogen 3.0 (<2.0) mg/dL Ur Leukocyte Esterase Small H (Negative) Urine RBC 4 (0-5) /hpf Urine WBC 10 H (0-5) /hpf Hyaline Casts 5 H (0-2) /lpf Urine Mucus Moderate H (None) /hpf Urine Yeast (Budding) Rare H (None) /hpf Salicylates mg/dL Urine Opiates Screen Detected H (NotDetected) Ur Oxycodone Screen Not Detected (NotDetected) Urine Methadone Screen Not Detected (NotDetected) Acetaminophen ug/mL Ur Barbiturates Screen Not Detected (NotDetected) U Tricyclic Antidepress Not Detected (NotDetected) Ur Phencyclidine Scrn Not Detected (NotDetected) Ur Amphetamines Screen Not Detected (NotDetected) U Methamphetamines Scrn Not Detected (NotDetected) U Benzodiazepines Scrn Detected H (NotDetected) Urine Cocaine Screen Not Detected (NotDetected) U Marijuana (THC) Screen Detected H (NotDetected) Serum Alcohol mg/dL 12/10/23 12/10/23 12/10/23 Range/Units 16:33 16:33 16:33 WBC (3.8-10.6) k/uL RBC (4.30-5.90) m/uL Hgb (13.0-17.5) gm/dL Hct (39.0-53.0) % MCV (80.0-100.0) fL MCH (25.0-35.0) pg MCHC (31.0-37.0) g/dL RDW (11.5-15.5) % Plt Count (150-450) k/uL MPV Neutrophils % % Lymphocytes % % Monocytes % % Eosinophils % % Basophils % % Neutrophils # (1.3-7.7) k/uL Lymphocytes # (1.0-4.8) k/uL Monocytes # (0-1.0) k/uL Eosinophils # (0-0.7) k/uL Basophils # (0-0.2) k/uL Hypochromasia PT (10.0-12.5) sec INR (<1.2) APTT (22.0-30.0) sec Sample Site ABG pH (7.35-7.45) ABG pCO2 (35-45) mmHg ABG pO2 (83-108) mmHg ABG HCO3 (21-25) mmol/L ABG Total CO2 (19-24) mmol/L ABG O2 Saturation (94-97) % ABG Base Excess mmol/L Alonso Test VBG pH (7.31-7.41) VBG pCO2 (37-51) mmHg VBG HCO3 (24-28) mmol/L FiO2 % Sodium 144 (137-145) mmol/L Potassium 4.6 (3.5-5.1) mmol/L Chloride 109 H (98-107) mmol/L Carbon Dioxide 23 (22-30) mmol/L Anion Gap 12 mmol/L BUN 14 (9-20) mg/dL Creatinine 0.86 (0.66-1.25) mg/dL Est GFR (CKD-EPI)AfAm >90 (>60 ml/min/1.73 sqM) Est GFR (CKD-EPI)NonAf >90 (>60 ml/min/1.73 sqM) Glucose 99 (74-99) mg/dL POC Glucose (mg/dL) (70-110) mg/dL POC Glu Mixed Livestock Farm Worker ID Plasma Lactic Acid Pierre (0.7-2.0) mmol/L Calcium 10.2 (8.4-10.2) mg/dL Magnesium 1.8 (1.6-2.3) mg/dL Total Bilirubin 0.6 (0.2-1.3) mg/dL AST 29 (17-59) U/L ALT 37 (4-49) U/L Alkaline Phosphatase 94 (38-126) U/L Ammonia <9 (<30) umol/L Troponin I <0.012 (0.000-0.034) ng/mL Total Protein 7.3 (6.3-8.2) g/dL Albumin 4.6 (3.5-5.0) g/dL TSH 0.762 (0.465-4.680) mIU/L Urine Color Urine Appearance (Clear) Urine pH (5.0-8.0) Ur Specific Hardy (1.001-1.035) Urine Protein (Negative) Urine Glucose (UA) (Negative) Urine Ketones (Negative) Urine Blood (Negative) Urine Nitrite (Negative) Urine Bilirubin (Negative) Urine Urobilinogen (<2.0) mg/dL Ur Leukocyte Esterase (Negative) Urine RBC (0-5) /hpf Urine WBC (0-5) /hpf Hyaline Casts (0-2) /lpf Urine Mucus (None) /hpf Urine Yeast (Budding) (None) /hpf Salicylates mg/dL Urine Opiates Screen (NotDetected) Ur Oxycodone Screen (NotDetected) Urine Methadone Screen (NotDetected) Acetaminophen ug/mL Ur Barbiturates Screen (NotDetected) U Tricyclic Antidepress (NotDetected) Ur Phencyclidine Scrn (NotDetected) Ur Amphetamines Screen (NotDetected) U Methamphetamines Scrn (NotDetected) U Benzodiazepines Scrn (NotDetected) Urine Cocaine Screen (NotDetected) U Marijuana (THC) Screen (NotDetected) Serum Alcohol <10 mg/dL 12/10/23 12/10/23 12/10/23 Range/Units 16:35 16:56 17:34 WBC (3.8-10.6) k/uL RBC (4.30-5.90) m/uL Hgb (13.0-17.5) gm/dL Hct (39.0-53.0) % MCV (80.0-100.0) fL MCH (25.0-35.0) pg MCHC (31.0-37.0) g/dL RDW (11.5-15.5) % Plt Count (150-450) k/uL MPV Neutrophils % % Lymphocytes % % Monocytes % % Eosinophils % % Basophils % % Neutrophils # (1.3-7.7) k/uL Lymphocytes # (1.0-4.8) k/uL Monocytes # (0-1.0) k/uL Eosinophils # (0-0.7) k/uL Basophils # (0-0.2) k/uL Hypochromasia PT (10.0-12.5) sec INR (<1.2) APTT (22.0-30.0) sec Sample Site Right Brachial ABG pH 7.37 (7.35-7.45) ABG pCO2 47 H (35-45) mmHg ABG pO2 80 L (83-108) mmHg ABG HCO3 27 H (21-25) mmol/L ABG Total CO2 28 H (19-24) mmol/L ABG O2 Saturation 96.4 (94-97) % ABG Base Excess 1.1 mmol/L Alonso Test Yes VBG pH 7.35 (7.31-7.41) VBG pCO2 45 (37-51) mmHg VBG HCO3 25 (24-28) mmol/L FiO2 21 % Sodium (137-145) mmol/L Potassium (3.5-5.1) mmol/L Chloride (98-107) mmol/L Carbon Dioxide (22-30) mmol/L Anion Gap mmol/L BUN (9-20) mg/dL Creatinine (0.66-1.25) mg/dL Est GFR (CKD-EPI)AfAm (>60 ml/min/1.73 sqM) Est GFR (CKD-EPI)NonAf (>60 ml/min/1.73 sqM) Glucose (74-99) mg/dL POC Glucose (mg/dL) 115 H (70-110) mg/dL POC Glu Mixed Livestock Farm Worker ID Conti, Gurjit Plasma Lactic Acid Pierre (0.7-2.0) mmol/L Calcium (8.4-10.2) mg/dL Magnesium (1.6-2.3) mg/dL Total Bilirubin (0.2-1.3) mg/dL AST (17-59) U/L ALT (4-49) U/L Alkaline Phosphatase (38-126) U/L Ammonia (<30) umol/L Troponin I (0.000-0.034) ng/mL Total Protein (6.3-8.2) g/dL Albumin (3.5-5.0) g/dL TSH (0.465-4.680) mIU/L Urine Color Urine Appearance (Clear) Urine pH (5.0-8.0) Ur Specific Hardy (1.001-1.035) Urine Protein (Negative) Urine Glucose (UA) (Negative) Urine Ketones (Negative) Urine Blood (Negative) Urine Nitrite (Negative) Urine Bilirubin (Negative) Urine Urobilinogen (<2.0) mg/dL Ur Leukocyte Esterase (Negative) Urine RBC (0-5) /hpf Urine WBC (0-5) /hpf Hyaline Casts (0-2) /lpf Urine Mucus (None) /hpf Urine Yeast (Budding) (None) /hpf Salicylates mg/dL Urine Opiates Screen (NotDetected) Ur Oxycodone Screen (NotDetected) Urine Methadone Screen (NotDetected) Acetaminophen ug/mL Ur Barbiturates Screen (NotDetected) U Tricyclic Antidepress (NotDetected) Ur Phencyclidine Scrn (NotDetected) Ur Amphetamines Screen (NotDetected) U Methamphetamines Scrn (NotDetected) U Benzodiazepines Scrn (NotDetected) Urine Cocaine Screen (NotDetected) U Marijuana (THC) Screen (NotDetected) Serum Alcohol mg/dL 12/10/23 12/10/23 Range/Units 18:44 18:44 WBC (3.8-10.6) k/uL RBC (4.30-5.90) m/uL Hgb (13.0-17.5) gm/dL Hct (39.0-53.0) % MCV (80.0-100.0) fL MCH (25.0-35.0) pg MCHC (31.0-37.0) g/dL RDW (11.5-15.5) % Plt Count (150-450) k/uL MPV Neutrophils % % Lymphocytes % % Monocytes % % Eosinophils % % Basophils % % Neutrophils # (1.3-7.7) k/uL Lymphocytes # (1.0-4.8) k/uL Monocytes # (0-1.0) k/uL Eosinophils # (0-0.7) k/uL Basophils # (0-0.2) k/uL Hypochromasia PT (10.0-12.5) sec INR (<1.2) APTT (22.0-30.0) sec Sample Site ABG pH (7.35-7.45) ABG pCO2 (35-45) mmHg ABG pO2 (83-108) mmHg ABG HCO3 (21-25) mmol/L ABG Total CO2 (19-24) mmol/L ABG O2 Saturation (94-97) % ABG Base Excess mmol/L Alonso Test VBG pH (7.31-7.41) VBG pCO2 (37-51) mmHg VBG HCO3 (24-28) mmol/L FiO2 % Sodium (137-145) mmol/L Potassium (3.5-5.1) mmol/L Chloride (98-107) mmol/L Carbon Dioxide (22-30) mmol/L Anion Gap mmol/L BUN (9-20) mg/dL Creatinine (0.66-1.25) mg/dL Est GFR (CKD-EPI)AfAm (>60 ml/min/1.73 sqM) Est GFR (CKD-EPI)NonAf (>60 ml/min/1.73 sqM) Glucose (74-99) mg/dL POC Glucose (mg/dL) (70-110) mg/dL POC Glu Mixed [employer] Work[employer] ID Plasma Lactic Acid Pierre 2.7 H* (0.7-2.0) mmol/L Calcium (8.4-10.2) mg/dL Magnesium (1.6-2.3) mg/dL Total Bilirubin (0.2-1.3) mg/dL AST (17-59) U/L ALT (4-49) U/L Alkaline Phosphatase (38-126) U/L Ammonia (<30) umol/L Troponin I (0.000-0.034) ng/mL Total Protein (6.3-8.2) g/dL Albumin (3.5-5.0) g/dL TSH (0.465-4.680) mIU/L Urine Color Urine Appearance (Clear) Urine pH (5.0-8.0) Ur Specific Hardy (1.001-1.035) Urine Protein (Negative) Urine Glucose (UA) (Negative) Urine Ketones (Negative) Urine Blood (Negative) Urine Nitrite (Negative) Urine Bilirubin (Negative) Urine Urobilinogen (<2.0) mg/dL Ur Leukocyte Esterase (Negative) Urine RBC (0-5) /hpf Urine WBC (0-5) /hpf Hyaline Casts (0-2) /lpf Urine Mucus (None) /hpf Urine Yeast (Budding) (None) /hpf Salicylates <1.0 mg/dL Urine Opiates Screen (NotDetected) Ur Oxycodone Screen (NotDetected) Urine Methadone Screen (NotDetected) Acetaminophen <10.0 ug/mL Ur Barbiturates Screen (NotDetected) U Tricyclic Antidepress (NotDetected) Ur Phencyclidine Scrn (NotDetected) Ur Amphetamines Screen (NotDetected) U Methamphetamines Scrn (NotDetected) U Benzodiazepines Scrn (NotDetected) Urine Cocaine Screen (NotDetected) U Marijuana (THC) Screen (NotDetected) Serum Alcohol mg/dL Disposition Clinical Impression: Sepsis due to pneumonia, Acute encephalopathy Disposition: ADMITTED IP TO THIS HOSP
[2023-12-10] MEDS: LORazepam 2 MG/ML INJ IV STA ×4 (16:30→20:50)
[2023-12-10] MEDS: OLANZapine 10 MG VIAL IM STA (16:45)
[2023-12-10] MEDS: MIDAZOLAM 1 MG/ML 5 ML VIAL IV STA (16:45)
[2023-12-10 16:53] LABS: VBG PH 7.35 (7.31-7.41)
[2023-12-10 16:57] LABS: Glucose,Whole Blood 115 mg/dL (70-110)
[2023-12-10 17:05] LABS: Appearance,Urine Clear (Clear); Bilirubin,Urine Negative (Negative); Blood,Urine Negative (Negative); Budding Yeast,Urine Rare /hpf; Color,Urine Yellow; Glucose,Urine (UA) 1+ (Negative); Hyaline Casts,Urine 5 /lpf (0-2); Ketones,Urine Negative (Negative); Leukocyte Esterase,Urine Small (Negative); Mucus,Urine Moderate /hpf; Nitrite,Urine Negative (Negative); Protein,Urine 1+ (Negative); RBC,Urine 4 /hpf (0-5); Specific Gravity,Urine 1.031 (1.001-1.035); WBC,Urine 10 /hpf (0-5)
[2023-12-10 17:09] LABS: Benzodiazepines Screen,Urine Detected (NotDetected); Opiate Screen,Urine Detected (NotDetected); Urn Cannabinoid Scrn Detected (NotDetected)
[2023-12-10 17:10] LABS: Amphetamine Screen,Urine Not Detected (NotDetected); Barbiturate Screen,Urine Not Detected (NotDetected); Cocaine Screen,Urine Not Detected (NotDetected); INR 0.8 (<1.2); Methadone Screen, Urine Not Detected (NotDetected); Oxycodone Screen, Urine Not Detected (NotDetected); Phencyclidine Screen,Urine Not Detected (NotDetected); Prothrombin Time 9.5 sec (10.0-12.5); Tricyclic Antidepressant,Urine Not Detected (NotDetected)
[2023-12-10 17:12] LABS: Basophils # (A) 0.1 k/uL (0-0.2); Basophils % (A) 0 %; Eosinophils # (A) 0.1 k/uL (0-0.7); Eosinophils % (A) 1 %; HCT 45.5 % (39.0-53.0); Hypochromasia Slight; Lymphocytes % (A) 7 %; MCH 28.3 pg (25.0-35.0); MCHC 31.1 g/dL (31.0-37.0); MCV 90.8 fL (80.0-100.0); Mean Platelet Volume 8.9; Monocytes # (A) 1.5 k/uL (0-1.0); Monocytes % (A) 6 %; Neutrophils # (A) 23.3 k/uL (1.3-7.7); Neutrophils % (A) 86 %; Platelet Count 272 k/uL (150-450); RBC 5.01 m/uL (4.30-5.90); RDW 15.6 % (11.5-15.5); WBC 27.2 k/uL (3.8-10.6)
[2023-12-10 17:13] LABS: Partial Thromboplastin Time 21.6 sec (22.0-30.0)
[2023-12-10 17:14] LABS: HGB 14.2 gm/dL (13.0-17.5)
[2023-12-10 17:15] LABS: ALT 37 U/L (4-49); AST 29 U/L (17-59); African American GFR (CKD) >90 (>60 ml/min/1.73 sqM); Albumin 4.6 g/dL (3.5-5.0); Alcohol <10 mg/dL; Alkaline Phosphatase 94 U/L (38-126); Anion Gap 12 mmol/L; Blood Urea Nitrogen 14 mg/dL (9-20); Calcium 10.2 mg/dL (8.4-10.2); Carbon Dioxide 23 mmol/L (22-30); Chloride 109 mmol/L (98-107); Glucose 99 mg/dL (74-99); Magnesium 1.8 mg/dL (1.6-2.3); Non-African American GFR(CKD) >90 (>60 ml/min/1.73 sqM); Potassium 4.6 mmol/L (3.5-5.1); Sodium 144 mmol/L (137-145); Total Bilirubin 0.6 mg/dL (0.2-1.3); Total Protein 7.3 g/dL (6.3-8.2)
[2023-12-10 17:48] LABS: ABG Base Excess 1.1 mmol/L; ABG HCO3 27 mmol/L (21-25); ABG Oxygen Saturation 96.4 % (94-97); ABG PCO2 47 mmHg (35-45); ABG PH 7.37 (7.35-7.45); ABG PO2 80 mmHg (83-108); ABG TCO2 28 mmol/L (19-24); Allen Test Performed? Yes
--- NOTE | 2023-12-10 17:49 | XR ---
EXAMINATION TYPE: XR chest 1V portable DATE OF EXAM: 12/10/2023 Comparison: 11/24/2023 Clinical History: 63-year-old male confusion, altered mental status. Findings: Heart borderline enlarged. Diffuse interstitial density without confluent consolidation or pleural ef fusion. Impression: Diffuse interstitial density. Correlate to exclude underlying atypical pneumonia or interstitial pneu monitis.
--- NOTE | 2023-12-10 17:52 | CT ---
EXAMINATION TYPE: CT brain wo con DATE OF EXAM: 12/10/2023 COMPARISON: 01/13/2023 HISTORY: 63-year-old male confusion, altered mental status TECHNIQUE: Examination was done in axial plane without intravenous contrast. Coronal and sagittal r econstructions performed. CT DLP: 1170.4 mGycm Automated exposure control for dose reduction was used. FINDINGS: There is no evidence of acute intracranial hemorrhage, acute ischemic changes, mass, mass-effect, or extra-axial fluid collection. There is no effacement of cerebral sulci or basal subarachnoid cister ns. There is no hydrocephalus. There is no midline shift. Mallory-white matter distinction is preserv ed. Similar long-standing right maxillary paranasal sinus disease with reactive toby-osteogenesis and part ial opacification. Leftward nasal septal deviation. Old nasal bone fracture deformity. Mastoid air ce lls are well pneumatized. Orbits and globes appear intact IMPRESSION: No acute intracranial abnormality seen. Chronic right maxillary sinus disease.
--- NOTE | 2023-12-10 18:21 | CT ---
EXAMINATION TYPE: CT ChestAbdPelvis w con DATE OF EXAM: 12/10/2023 COMPARISON: CT chest 11/25/2023 HISTORY: 63-year-old male confusion, altered mental status, copd TECHNIQUE: Contiguous axial scanning of the chest, abdomen, and pelvis performed with IV Contrast, pa tient injected with 100 mL of Isovue 300. Delayed images through the kidneys were obtained. Coronal/s agittal reconstructions performed. CT DLP: 1032.7 mGycm Automated exposure control for dose reduction was used. FINDINGS: Chest: Heart upper limits of normal in size without pericardial effusion. Aorta normal caliber with conventional arch vessel branching anatomy. Right hilar lymph node mildly enlarged at 1.2 cm but improving from prior where it measured 1.8 cm. N o increasing thoracic lymphadenopathy seen. Trace bilateral gynecomastia. There is breathing motion artifact. Multifocal hazy and patchy groundglass change especially upper an d mid lungs. Changes similar to slightly worsened from 11/25/2023. No pleural effusion. ABDOMEN: No focal liver lesion. Portal venous system is patent. No biliary ductal dilatation. Gallbladder, adr enal glands, left kidney, spleen, and pancreas within normal limits. Slightly atrophic right kidney possibly due to some underlying renal artery stenosis. There is a 4 mm nonobstructive stone at the lower pole of right kidney. No dilated small bowel, free fluid, or free air. No mesenteric or retroperitoneal lymphadenopathy. Mild stool in the right side of the colon. Mild circumferential wall thickening mid sigmoid colon may be due to nondistention, for example, axial image 104. No pericolic inflammatory change. Pelvis: Bladder is collapsed but with mild circumferential wall thickening. Prostate gland measures upper ramirez its of normal at 3.9 cm. No abnormal fluid collection in the pelvis or pelvic lymphadenopathy. Bones: Mild to moderate degenerative change of the hips. Degenerative change of the SI joints. Addition the lower thoracic spine. Moderate spondylotic change throughout the lumbar spine. Partially visualized ACDF hardware. IMPRESSION: 1. MULTIFOCAL HAZY AND PATCHY GROUND GLASS INFILTRATE IN THE UPPER TO MID LUNGS, SIMILAR TO SLIGHTLY WORSENED FROM 11/25/2023. CONSIDER ATYPICAL/COVID PNEUMONIA OR INTERSTITIAL PNEUMONITIS. 2. SLIGHTLY ATROPHIC RIGHT KIDNEY. THERE MAY BE SOME UNDERLYING RIGHT-SIDED RENAL ARTERY STENOSIS. NO NOBSTRUCTIVE 4 MM RIGHT RENAL STONE. 3. CIRCUMFERENTIAL WALL THICKENING MID SIGMOID COLON MAY BE DUE TO NONDISTENTION. CORRELATE TO EXCLUD E A NONSPECIFIC MILD COLITIS.
[2023-12-10] MEDS ORDERED: NALOXONE 0.4 MG/ML 1 ML VIAL IV PRN (18:49)
[2023-12-10] MEDS: SODIUM CHLORIDE 0.9% 500 ML 500 ML IV ONE (18:52)
[2023-12-10] MEDS: SODIUM CHLORIDE 0.9% 1,000 ML IV STA (18:52)
[2023-12-10] MEDS: methylPREDNISolone SOD SUCCI 125 MG/2 ML VIAL IV STA (18:53)
[2023-12-10] MEDS ORDERED: ALBUTEROL NEBULIZED 2.5 MG/3 ML INHALATION PRN (18:53)
[2023-12-10] MEDS: FLUCONAZOLE 100 MG TAB PO ONE (18:54)
[2023-12-10] MEDS: AZITHROMYCIN 500 MG in SODIUM CHLORIDE 0.9% 250 ML IVPB STA (18:56)
[2023-12-10] MEDS: FLUCONAZOLE IN NACL,ISO-OSM 200 MG in SALINE 1 100ML.BAG IVPB STA (19:03)
[2023-12-10 19:10] LABS: Acetaminophen <10.0 ug/mL; Salicylate <1.0 mg/dL
[2023-12-10] MEDS: IPRATROPIUM-ALBUTEROL 3 ML NEB INHALATION PRN (19:30)
[2023-12-10] MEDS: FAMOTIDINE 20 MG TAB PO SCH (20:55)
[2023-12-10] MEDS: HALOPERIDOL LACTATE 5 MG/ML 1 ML VIAL IM PRN (22:09)
[2023-12-10] MEDS: LORazepam 2 MG/ML INJ IV PRN (22:24)
[2023-12-11] MEDS: PIPERACILLIN-TAZOBACTAM 3.375 GM in SODIUM CHLORIDE 0.9% 100 ML IVPB SCH (01:12)
[2023-12-11 01:28] LABS: ABG Base Excess -1.6 mmol/L; ABG HCO3 22 mmol/L (21-25); ABG Oxygen Saturation 99.8 % (94-97); ABG PCO2 31 mmHg (35-45); ABG PH 7.45 (7.35-7.45); ABG PO2 126 mmHg (83-108); ABG TCO2 23 mmol/L (19-24); Allen Test Performed? Yes
[2023-12-11] MEDS: DEXMEDETOMIDINE/0.9% NACL(PMX) 400 MCG in EMPTY BAG 1 BAG IV SCH (04:12)
[2023-12-11 04:57] LABS: ABG Base Excess -0.1 mmol/L; ABG HCO3 24 mmol/L (21-25); ABG Oxygen Saturation 99.4 % (94-97); ABG PCO2 35 mmHg (35-45); ABG PH 7.44 (7.35-7.45); ABG PO2 118 mmHg (83-108); ABG TCO2 25 mmol/L (19-24); Allen Test Performed? Yes
[2023-12-11] MEDS: SODIUM CHLORIDE 0.9% 1,000 ML IV SCH (05:12)
[2023-12-11 05:19] LABS: Basophils % (A) 0 %; Eosinophils # (A) 0.1 k/uL (0-0.7); Eosinophils % (A) 0 %; HCT 42.1 % (39.0-53.0); HGB 12.9 gm/dL (13.0-17.5); Hypochromasia Slight; Lymphocytes # (A) 0.5 k/uL (1.0-4.8); Lymphocytes % (A) 4 %; MCH 27.8 pg (25.0-35.0); MCHC 30.5 g/dL (31.0-37.0); MCV 90.9 fL (80.0-100.0); Mean Platelet Volume 8.1; Monocytes # (A) 0.3 k/uL (0-1.0); Monocytes % (A) 2 %; Neutrophils # (A) 12.8 k/uL (1.3-7.7); Neutrophils % (A) 94 %; Platelet Count 202 k/uL (150-450); RBC 4.63 m/uL (4.30-5.90); RDW 15.8 % (11.5-15.5); WBC 13.6 k/uL (3.8-10.6)
[2023-12-11 05:35] LABS: African American GFR (CKD) >90 (>60 ml/min/1.73 sqM); Anion Gap 7 mmol/L; Blood Urea Nitrogen 13 mg/dL (9-20); Calcium 9.5 mg/dL (8.4-10.2); Carbon Dioxide 25 mmol/L (22-30); Chloride 113 mmol/L (98-107); Glucose 147 mg/dL (74-99); Non-African American GFR(CKD) >90 (>60 ml/min/1.73 sqM); Potassium 4.4 mmol/L (3.5-5.1); Sodium 145 mmol/L (137-145)
[2023-12-11] MEDS: SODIUM CHLORIDE 0.9% 500 ML 500 ML IV ONE (05:38)
--- NOTE | 2023-12-11 06:03 | P.CNPUL ---
History of Present Illness Consult date: 12/11/23 Requesting physician: Paulette Quiles Reason for consult: pneumonia Chief complaint: Altered mental status, shortness of breath History of present illness: Patient is a 63-year-old white male with past medical history significant for COPD, as needed home O2, chronic ongoing tobacco dependence, pneumonia, prior ventilator dependent respiratory failure, GERD, hypertension, atrial fibrillation, among other things. He has had multiple hospitalizations so far this year. Of note, patient did have a hospitalization in September 2023, at this time, he was admitted with a COPD exacerbation and suspected bilateral pneumonia. He did spend some time in the intensive care unit, and was briefly intubated to the mechanical ventilator. He did have a bronchoscopy with BAL, and microbiology did not reveal any bacterial growth. He does have history of previous Pseudomonas aeruginosa infections. More recently, he had a hospitalization earlier this month, he was admitted for acute COPD exacerbation along with UTI. Discharged on 11/28/2023 with course of p.o. Levaquin. Patient returned to emergency department yesterday afternoon with altered mental status. He was agitated and confused. I did call patient's , who states that he was acting normal on Sunday. They went to the beach and a birthday democrat. Yesterday, she noted him to be slightly confused when she left for work. When she got home, he was agitated, swearing and pacing around. His states that he does not use any recreational drugs other than marijuana. Also, denies any current alcohol drinking. There is questionable history of alcoholism. She states that he gets this way when he has an infection. He appeared to be short of breath. Denies any fevers while at home. Patient is currently emergency department, room 11, he is agitated and not making sense. He is thrashing around in bed. He is difficult to redirect. He has received multiple doses of benzodiazepines and antipsychotics. Actually, received a total of 8 mg of Versed, 5 mg of Ativan, 5 mg of Zyprexa, as well as, 5 mg of Haldol. Urine toxicology screen positive for opiates, benzodiazepines, and marijuana. Serum alcohol less than 10. He is currently on 2 L/min nasal cannula. He is having brief episodes of apnea. Multiple ABGs have been done, most recent demonstrates a PaO2 of 126, pCO2 of 31, pH of 7.45. None are consistent with CO2 narcosis. CT of the brain without contrast does not show any acute intracranial abnormality. There is chronic right maxillary sinus disease. A CT of the chest, abdomen, and pelvis shows multifocal hazy and patchy groundglass infiltrates in the upper to mid lung similar to slightly worsened from previous examination on 11/25/2023. Findings consistent with atypical pneumonia or interstitial pneumonitis. There is also a nonobstructive 4 mm right renal stone. Circumferential wall thickening of the mid sigmoid colon which could indicate mild colitis or may be due to nondistention. CBC: WBC count 27.2, hemoglobin 14.2, hematocrit 45.5, platelets 272. BMP: Sodium 144, potassium 4.6, chloride 109, serum bicarb 23, BUN 14, creatinine 0.86, glucose 99. Lactic acid as high as 3.9 down to 2.9. He has been fluid bolused with 1.5 L normal saline. He does have an indwelling urinary catheter with approximately 400 mL of chapincito-colored urine and the drainage bag. Urinalysis demonstrating small amount of leukocyte esterase, glucosuria, proteinuria. He is empirically been started on Zosyn in the emergency department. He is afebrile. Blood pressure is slightly hypertensive in the setting of acute agitation/delirium. Heart rhythm appears sinus tachycardia with a rate of 110 bpm. Respiratory rate is in the mid 20s. SpO2 98%. Patient will be best monitored in the intensive care unit. Review of Systems ROS unobtainable: due to mental status Past Medical History Past Medical History: Atrial Fibrillation, COPD, GERD/Reflux, Hypertension, Pneumonia Additional Past Medical History / Comment(s): back pain spinal cord pinched in neck. SOB with activity History of Any Multi-Drug Resistant Organisms: None Reported Past Surgical History: Back Surgery Additional Past Surgical History / Comment(s): neck fusion,rt eye surgery, rt hand surgery, cateracts Past Anesthesia/Blood Transfusion Reactions: No Reported Reaction Past Psychological History: Depression Smoking Status: Current every day smoker Past Alcohol Use History: None Reported Past Drug Use History: Marijuana - Past Family History Mother History Unknown: Yes Family Medical History: Myocardial Infarction ([place]) Additional Family Medical History / Comment(s): from [place] Medications and Allergies Home Medications Medication Instructions Recorded Confirmed Type DULoxetine HCL [Cymbalta] 60 mg PO DAILY 04/15/22 12/10/23 History DULoxetine HCL [Cymbalta] 30 mg PO HS 05/10/23 12/10/23 History Tamsulosin [Flomax] 0.4 mg PO DAILY 05/10/23 12/10/23 History Albuterol Sulfate [Albuterol 2 puff INHALATION RT-QID PRN 10/12/23 12/10/23 History Sulfate Hfa] Ipratropium-Albuterol Nebulize 3 ml INHALATION RT-Q6H PRN 10/12/23 12/10/23 History [Duoneb 0.5 mg-3 mg/3 ml Soln] HYDROcodone/APAP 7.5-325MG [[place] 1 tab PO BID PRN 3 Days #6 tab 10/30/23 12/10/23 Rx 7.5-325] Baclofen [Lioresal] 20 mg PO TID 11/24/23 12/10/23 History Furosemide [Lasix] 20 mg PO DAILY 30 Days #30 tab 11/28/23 12/10/23 Rx Fluticasone/Umeclidin/Vilanter 1 puff INHALATION RT-DAILY 12/10/23 12/10/23 History [Trelegy Ellipta 100-62.5-25] predniSONE See Taper PO DAILY 12/10/23 12/10/23 History Allergies Allergy/AdvReac Type Severity Reaction Status Date / Time sacubitril [From Entresto] Allergy hives Verified 12/10/23 18:09 trazodone Allergy Rash/Hives Verified 12/10/23 18:09 valsartan [From Entresto] Allergy hives Verified 12/10/23 18:09 Physical Exam Vitals: Vital Signs Temp Pulse Resp BP Pulse Ox 12/11/23 04:14 110 H 24 166/106 98 12/11/23 03:34 86 8 L 159/103 100 12/11/23 01:48 98.2 F 12/11/23 01:07 71 10 L 112/71 98 12/10/23 23:18 77 16 98 12/10/23 22:30 101 H 98 12/10/23 19:57 97.1 F L 86 16 124/86 99 12/10/23 19:00 90 18 129/86 94 L 12/10/23 17:41 101 H 12/10/23 17:14 98 14 114/91 100 12/10/23 16:58 104 H 12/10/23 16:08 138 H Intake and Output 12/10/23 12/10/23 12/11/23 14:59 22:59 06:59 Output Total 600 Balance -600 Output: Urine 600 Uretheral (Brand) 600 Other: Weight 77.111 kg GENERAL EXAM: 63-year-old white male, agitated, cussing, not currently following commands. HEAD: Normocephalic and atraumatic EYES: Normal reaction of pupils, equal size. NOSE: Clear with pink turbinates. THROAT: No erythema or exudates. NECK: No masses, no JVD. CHEST: No chest wall deformity. LUNGS: Equal air entry with scattered rhonchi and inspiratory left lower lobe crackles. On 2 L/min nasal cannula. No conversational dyspnea or accessory muscle use. CVS: S1 and S2 normal with no audible murmur, regular rhythm. No extra heart sounds ABDOMEN: No hepatosplenomegaly, active bowel sounds, no guarding or rigidity. SPINE: No scoliosis or deformity SKIN: No rashes CENTRAL NERVOUS SYSTEM: No focal deficits, tone is normal in all 4 extremities. EXTREMITIES: There is no peripheral edema, clubbing, or cyanosis. Peripheral pulses are intact. Results - Laboratory Findings CBC and BMP: 12/11/23 04:55 12/10/23 16:33 ABG ABG pH 7.45 (7.35-7.45) 12/11/23 01:26 ABG pCO2 31 mmHg (35-45) L 12/11/23 01:26 ABG pO2 126 mmHg (83-108) H 12/11/23 01:26 ABG O2 Saturation 99.8 % (94-97) H 12/11/23 01:26 PT/INR, D-dimer PT 9.5 sec (10.0-12.5) L 12/10/23 16:33 INR 0.8 (<1.2) 12/10/23 16:33 Abnormal lab findings: Abnormal Labs 12/10/23 12/10/23 12/10/23 16:33 16:33 16:33 WBC 27.2 H RDW 15.6 H Neutrophils # 23.3 H Monocytes # 1.5 H PT 9.5 L APTT 21.6 L ABG pCO2 ABG pO2 ABG HCO3 ABG Total CO2 ABG O2 Saturation Chloride POC Glucose (mg/dL) Plasma Lactic Acid Pierre Urine Protein 1+ H Urine Glucose (UA) 1+ H Ur Leukocyte Esterase Small H Urine WBC 10 H Hyaline Casts 5 H Urine Mucus Moderate H Urine Yeast (Budding) Rare H Urine Opiates Screen Detected H U Benzodiazepines Scrn Detected H U Marijuana (THC) Screen Detected H 12/10/23 12/10/23 12/10/23 16:33 16:56 17:34 WBC RDW Neutrophils # Monocytes # PT APTT ABG pCO2 47 H ABG pO2 80 L ABG HCO3 27 H ABG Total CO2 28 H ABG O2 Saturation Chloride 109 H POC Glucose (mg/dL) 115 H Plasma Lactic Acid Pierre Urine Protein Urine Glucose (UA) Ur Leukocyte Esterase Urine WBC Hyaline Casts Urine Mucus Urine Yeast (Budding) Urine Opiates Screen U Benzodiazepines Scrn U Marijuana (THC) Screen 12/10/23 12/10/23 12/11/23 18:44 22:00 00:34 WBC RDW Neutrophils # Monocytes # PT APTT ABG pCO2 ABG pO2 ABG HCO3 ABG Total CO2 ABG O2 Saturation Chloride POC Glucose (mg/dL) Plasma Lactic Acid Pierre 2.7 H* 3.9 H* 2.9 H* Urine Protein Urine Glucose (UA) Ur Leukocyte Esterase Urine WBC Hyaline Casts Urine Mucus Urine Yeast (Budding) Urine Opiates Screen U Benzodiazepines Scrn U Marijuana (THC) Screen 12/11/23 01:26 WBC RDW Neutrophils # Monocytes # PT APTT ABG pCO2 31 L ABG pO2 126 H ABG HCO3 ABG Total CO2 ABG O2 Saturation 99.8 H Chloride POC Glucose (mg/dL) Plasma Lactic Acid Pierre Urine Protein Urine Glucose (UA) Ur Leukocyte Esterase Urine WBC Hyaline Casts Urine Mucus Urine Yeast (Budding) Urine Opiates Screen U Benzodiazepines Scrn U Marijuana (THC) Screen - Diagnostic Findings Chest x-ray: image reviewed CT scan - chest: image reviewed Assessment and Plan Assessment: Acute hypoxemic respiratory failure, possibly secondary to acute COPD exacerbation. CT of the chest, abdomen and pelvis redemonstrates multifocal hazy and patchy groundglass infiltrates in the upper to mid lung similar to slightly worsened from previous examination on 11/25/2023. Findings consistent with infectious versus inflammatory process or even interstitial edema. Will check NT proBNP. Lactic acidemia Acute leukocytosis Altered mental status, under investigation, CT of the brain without contrast does not show any acute intracranial abnormality. History of paroxysmal atrial fibrillation History of hypertension History of gastroesophageal reflux disease History of ventilator dependent respiratory failure Chronic marijuana use Chronic ongoing tobacco dependence History of depression Questional history of alcoholism, patient's denies any recent alcohol abuse. Plan: Patient's medications, labs, imaging reviewed Continue supplemental oxygen and wean FiO2 to maintain oxygen saturation of 90% or greater ABGs were noted. Not consistent with CO2 narcosis Procalcitonin level pending. Blood cultures pending. Patient was empirically placed on Zosyn in the emergency department. Will add azithromycin. Will discontinue benzodiazepines, as this may worsen patient's acute delirium. Patient has received multiple doses of antipsychotics including Zyprexa and Haldol Start patient on Precedex infusion Serum alcohol level less than 10 Urine toxicology screen positive for benzodiazepines, opiates, and marijuana. If there is no improvement in patient's mentation, may consider LP. Patient will be transferred to the intensive care unit. I have personally seen and examined the patient, performed the documentation and the assessment and plan as written. Number of minutes spent on the visit:20 Time with Patient: Greater than 30
[2023-12-11] MEDS: methylPREDNISolone SOD SUCCI 125 MG/2 ML VIAL IV SCH (06:47)
[2023-12-11] MEDS: FORMOTEROL FUMARATE 20 MCG/2 ML NEBU INHALATION SCH (07:57)
[2023-12-11] MEDS: BUDESONIDE 1 MG/2 ML NEBU INHALATION SCH (07:57)
[2023-12-11] MEDS: IPRATROPIUM-ALBUTEROL 3 ML NEB INHALATION SCH (07:57)
[2023-12-11] MEDS: HEPARIN SODIUM,PORCINE 5,000 UNIT/ML 1 ML VIAL SQ SCH (08:28)
[2023-12-11] MEDS: AZITHROMYCIN 500 MG TAB PO SCH (08:29)
[2023-12-11] MEDS: PANTOPRAZOLE 40 MG/10 ML VIAL IVP SCH (08:39)
[2023-12-11] MEDS ORDERED: AZITHROMYCIN 500 MG in SODIUM CHLORIDE 0.9% 250 ML IVPB SCH (09:00)
[2023-12-11] MEDS: AZITHROMYCIN 500 MG in SODIUM CHLORIDE 0.9% 250 ML IVPB SCH (09:46)
--- NOTE | 2023-12-11 13:12 | P.HPIM ---
History of Present Illness 63-year-old male came in with complaints of altered mental status. Patient is found to have white count of 27,000 without any fever chest x-ray showed hazy groundglass opacities can be atypical pneumonia BNP is within normal limits. No other clinical evidence of infection, urine is not impressive for urinary tract infection. Urine drug screen is positive for marijuana and opiates. Patient was started on Zosyn, pulmonary and infectious disease was consulted patient was started on azithromycin by pulmonary because of concerns of atypical pneumonia. Patient had history of COPD was recently hospitalized for suspected bilateral pneumonia was intubated at that time subsequently discharged on Levaquin that was earlier this month. Patient mental status is at his baseline at this time patient had a procalcitonin which is within normal limits. Patient denies any alcohol or drug abuse although his drug screen is positive for marijuana as mentioned above. REVIEW OF SYSTEMS: All other systems are negative except those mentioned in the HPI PHYSICAL EXAMINATION: GENERAL: The patient is alert and oriented x3, not in any acute distress. Well developed, well nourished. HEENT: Pupils are round and equally reacting to light. EOMI. No scleral icterus. No conjunctival pallor. Normocephalic, atraumatic. No pharyngeal erythema. No thyromegaly. CARDIOVASCULAR: S1 and S2 present. No murmurs, rubs, or gallops. PULMONARY: Chest is clear to auscultation, no wheezing or crackles. ABDOMEN: Soft, nontender, nondistended, normoactive bowel sounds. No palpable organomegaly. MUSCULOSKELETAL: No joint swelling or deformity. EXTREMITIES: No cyanosis, clubbing, or pedal edema. NEUROLOGICAL: Gross neurological examination did not reveal any focal deficits. SKIN: No rashes. Assessment and plan -Altered mental status encephalopathy no clear evidence of infection except for white count patient will be continued on empiric treatment and will also continue treatment for atypical pneumonia with azithromycin. Continue with Rocephin infectious disease was consulted leukocytosis may be just reactive and confusion may be related to marijuana use. -Lactic acidosis-May be secondary to sepsis or intravascular volume depletion IV fluids will be continued -Acute hypoxic respiratory failure secondary to COPD exacerbation continue systemic steroids and additional treatments -Hypertension -Gastroesophageal reflux disease -Marijuana use: Counseling was provided DVT prophylaxis: Lovenox Past Medical History Past Medical History: Atrial Fibrillation, COPD, GERD/Reflux, Hypertension, Pneumonia Additional Past Medical History / Comment(s): back pain spinal cord pinched in neck. SOB with activity History of Any Multi-Drug Resistant Organisms: None Reported Past Surgical History: Back Surgery Additional Past Surgical History / Comment(s): neck fusion,rt eye surgery, rt hand surgery, cateracts Past Anesthesia/Blood Transfusion Reactions: No Reported Reaction Past Psychological History: Depression Smoking Status: Current every day smoker Past Alcohol Use History: None Reported Past Drug Use History: Marijuana - Past Family History Mother History Unknown: Yes Family Medical History: Myocardial Infarction ([place]) Additional Family Medical History / Comment(s): from [place] Medications and Allergies Home Medications Medication Instructions Recorded Confirmed Type DULoxetine HCL [Cymbalta] 60 mg PO DAILY 04/15/22 12/10/23 History DULoxetine HCL [Cymbalta] 30 mg PO HS 05/10/23 12/10/23 History Tamsulosin [Flomax] 0.4 mg PO DAILY 05/10/23 12/10/23 History Albuterol Sulfate [Albuterol 2 puff INHALATION RT-QID PRN 10/12/23 12/10/23 History Sulfate Hfa] Ipratropium-Albuterol Nebulize 3 ml INHALATION RT-Q6H PRN 10/12/23 12/10/23 History [Duoneb 0.5 mg-3 mg/3 ml Soln] HYDROcodone/APAP 7.5-325MG [[place] 1 tab PO BID PRN 3 Days #6 tab 10/30/23 12/10/23 Rx 7.5-325] Baclofen [Lioresal] 20 mg PO TID 11/24/23 12/10/23 History Furosemide [Lasix] 20 mg PO DAILY 30 Days #30 tab 11/28/23 12/10/23 Rx Fluticasone/Umeclidin/Vilanter 1 puff INHALATION RT-DAILY 12/10/23 12/10/23 History [Trelegy Ellipta 100-62.5-25] predniSONE See Taper PO DAILY 12/10/23 12/10/23 History Allergies Allergy/AdvReac Type Severity Reaction Status Date / Time sacubitril [From Entresto] Allergy hives Verified 12/10/23 18:09 trazodone Allergy Rash/Hives Verified 12/10/23 18:09 valsartan [From Entresto] Allergy hives Verified 12/10/23 18:09 Physical Exam Vitals: Vital Signs Temp Pulse Resp BP Pulse Ox 12/11/23 11:45 96 12/11/23 11:40 98 12/11/23 11:36 90 18 130/90 95 12/11/23 10:00 96 18 108/79 93 L 12/11/23 09:00 95 18 155/86 95 12/11/23 08:22 84 12/11/23 08:10 87 12/11/23 08:00 93 18 157/95 94 L 12/11/23 07:45 80 18 168/82 99 12/11/23 06:45 92 12 159/145 97 12/11/23 04:14 110 H 24 166/106 98 12/11/23 03:34 86 8 L 159/103 100 12/11/23 01:48 98.2 F 12/11/23 01:07 71 10 L 112/71 98 12/10/23 23:18 77 16 98 12/10/23 22:30 101 H 98 12/10/23 19:57 97.1 F L 86 16 124/86 99 12/10/23 19:00 90 18 129/86 94 L 12/10/23 17:41 101 H 12/10/23 17:14 98 14 114/91 100 12/10/23 16:58 104 H 12/10/23 16:08 138 H Intake and Output 12/10/23 12/11/23 12/11/23 22:59 06:59 14:59 Intake Total 3.663 51.439 Output Total 600 Balance -596.337 51.439 Intake: Intake, IV Titration 3.663 51.439 Amount Dexmedetomidine/0.9% NaCl 3.663 51.439 (Pmx) 400 mcg In Empty Bag 1 bag @ 0.2 MCG/KG/HR 3.856 mls/hr IV .Q24H [facility] Rx#:[id number] Output: Urine 600 Uretheral (Brand) 600 Other: Weight 77.111 kg Results CBC & Chem 7: 12/11/23 04:55 12/11/23 04:55 Labs: Abnormal Lab Results - Last 24 Hours (Table) 12/10/23 12/10/23 12/10/23 Range/Units 16:33 16:33 16:33 WBC 27.2 H (3.8-10.6) k/uL Hgb (13.0-17.5) gm/dL MCHC (31.0-37.0) g/dL RDW 15.6 H (11.5-15.5) % Neutrophils # 23.3 H (1.3-7.7) k/uL Lymphocytes # (1.0-4.8) k/uL Monocytes # 1.5 H (0-1.0) k/uL PT 9.5 L (10.0-12.5) sec APTT 21.6 L (22.0-30.0) sec ABG pCO2 (35-45) mmHg ABG pO2 (83-108) mmHg ABG HCO3 (21-25) mmol/L ABG Total CO2 (19-24) mmol/L ABG O2 Saturation (94-97) % Chloride (98-107) mmol/L Creatinine (0.66-1.25) mg/dL Glucose (74-99) mg/dL POC Glucose (mg/dL) (70-110) mg/dL Plasma Lactic Acid Pierre (0.7-2.0) mmol/L Procalcitonin (0.02-0.09) ng/mL Urine Protein 1+ H (Negative) Urine Glucose (UA) 1+ H (Negative) Ur Leukocyte Esterase Small H (Negative) Urine WBC 10 H (0-5) /hpf Hyaline Casts 5 H (0-2) /lpf Urine Mucus Moderate H (None) /hpf Urine Yeast (Budding) Rare H (None) /hpf Urine Opiates Screen Detected H (NotDetected) U Benzodiazepines Scrn Detected H (NotDetected) U Marijuana (THC) Screen Detected H (NotDetected) 12/10/23 12/10/23 12/10/23 Range/Units 16:33 16:56 17:34 WBC (3.8-10.6) k/uL Hgb (13.0-17.5) gm/dL MCHC (31.0-37.0) g/dL RDW (11.5-15.5) % Neutrophils # (1.3-7.7) k/uL Lymphocytes # (1.0-4.8) k/uL Monocytes # (0-1.0) k/uL PT (10.0-12.5) sec APTT (22.0-30.0) sec ABG pCO2 47 H (35-45) mmHg ABG pO2 80 L (83-108) mmHg ABG HCO3 27 H (21-25) mmol/L ABG Total CO2 28 H (19-24) mmol/L ABG O2 Saturation (94-97) % Chloride 109 H (98-107) mmol/L Creatinine (0.66-1.25) mg/dL Glucose (74-99) mg/dL POC Glucose (mg/dL) 115 H (70-110) mg/dL Plasma Lactic Acid Pierre (0.7-2.0) mmol/L Procalcitonin (0.02-0.09) ng/mL Urine Protein (Negative) Urine Glucose (UA) (Negative) Ur Leukocyte Esterase (Negative) Urine WBC (0-5) /hpf Hyaline Casts (0-2) /lpf Urine Mucus (None) /hpf Urine Yeast (Budding) (None) /hpf Urine Opiates Screen (NotDetected) U Benzodiazepines Scrn (NotDetected) U Marijuana (THC) Screen (NotDetected) 12/10/23 12/10/23 12/11/23 Range/Units 18:44 22:00 00:34 WBC (3.8-10.6) k/uL Hgb (13.0-17.5) gm/dL MCHC (31.0-37.0) g/dL RDW (11.5-15.5) % Neutrophils # (1.3-7.7) k/uL Lymphocytes # (1.0-4.8) k/uL Monocytes # (0-1.0) k/uL PT (10.0-12.5) sec APTT (22.0-30.0) sec ABG pCO2 (35-45) mmHg ABG pO2 (83-108) mmHg ABG HCO3 (21-25) mmol/L ABG Total CO2 (19-24) mmol/L ABG O2 Saturation (94-97) % Chloride (98-107) mmol/L Creatinine (0.66-1.25) mg/dL Glucose (74-99) mg/dL POC Glucose (mg/dL) (70-110) mg/dL Plasma Lactic Acid Pierre 2.7 H* 3.9 H* 2.9 H* (0.7-2.0) mmol/L Procalcitonin (0.02-0.09) ng/mL Urine Protein (Negative) Urine Glucose (UA) (Negative) Ur Leukocyte Esterase (Negative) Urine WBC (0-5) /hpf Hyaline Casts (0-2) /lpf Urine Mucus (None) /hpf Urine Yeast (Budding) (None) /hpf Urine Opiates Screen (NotDetected) U Benzodiazepines Scrn (NotDetected) U Marijuana (THC) Screen (NotDetected) 12/11/23 12/11/23 12/11/23 Range/Units 01:26 03:40 04:45 WBC (3.8-10.6) k/uL Hgb (13.0-17.5) gm/dL MCHC (31.0-37.0) g/dL RDW (11.5-15.5) % Neutrophils # (1.3-7.7) k/uL Lymphocytes # (1.0-4.8) k/uL Monocytes # (0-1.0) k/uL PT (10.0-12.5) sec APTT (22.0-30.0) sec ABG pCO2 31 L (35-45) mmHg ABG pO2 126 H 118 H (83-108) mmHg ABG HCO3 (21-25) mmol/L ABG Total CO2 25 H (19-24) mmol/L ABG O2 Saturation 99.8 H 99.4 H (94-97) % Chloride (98-107) mmol/L Creatinine (0.66-1.25) mg/dL Glucose (74-99) mg/dL POC Glucose (mg/dL) (70-110) mg/dL Plasma Lactic Acid Pierre 4.5 H* (0.7-2.0) mmol/L Procalcitonin (0.02-0.09) ng/mL Urine Protein (Negative) Urine Glucose (UA) (Negative) Ur Leukocyte Esterase (Negative) Urine WBC (0-5) /hpf Hyaline Casts (0-2) /lpf Urine Mucus (None) /hpf Urine Yeast (Budding) (None) /hpf Urine Opiates Screen (NotDetected) U Benzodiazepines Scrn (NotDetected) U Marijuana (THC) Screen (NotDetected) 12/11/23 12/11/23 12/11/23 Range/Units 04:55 04:55 05:00 WBC 13.6 H (3.8-10.6) k/uL Hgb 12.9 L (13.0-17.5) gm/dL MCHC 30.5 L (31.0-37.0) g/dL RDW 15.8 H (11.5-15.5) % Neutrophils # 12.8 H (1.3-7.7) k/uL Lymphocytes # 0.5 L (1.0-4.8) k/uL Monocytes # (0-1.0) k/uL PT (10.0-12.5) sec APTT (22.0-30.0) sec ABG pCO2 (35-45) mmHg ABG pO2 (83-108) mmHg ABG HCO3 (21-25) mmol/L ABG Total CO2 (19-24) mmol/L ABG O2 Saturation (94-97) % Chloride 113 H (98-107) mmol/L Creatinine 0.64 L (0.66-1.25) mg/dL Glucose 147 H (74-99) mg/dL POC Glucose (mg/dL) (70-110) mg/dL Plasma Lactic Acid Pierre (0.7-2.0) mmol/L Procalcitonin 0.12 H (0.02-0.09) ng/mL Urine Protein (Negative) Urine Glucose (UA) (Negative) Ur Leukocyte Esterase (Negative) Urine WBC (0-5) /hpf Hyaline Casts (0-2) /lpf Urine Mucus (None) /hpf Urine Yeast (Budding) (None) /hpf Urine Opiates Screen (NotDetected) U Benzodiazepines Scrn (NotDetected) U Marijuana (THC) Screen (NotDetected)
[2023-12-11] MEDS: TAMSULOSIN 0.4 MG CAP.ER.24H PO SCH (14:40)
[2023-12-11] MEDS: DULoxetine HCL 30 MG CAPSULE.DR PO SCH (21:58)
[2023-12-11] MEDS: methylPREDNISolone SOD SUCCI 40 MG/ML 1 ML VIAL IV SCH (22:01)
--- NOTE | 2023-12-11 22:46 | P.CONS ---
History of Present Illness - Reason for Consult Consult date: 12/11/23 Complicated pneumonia Requesting physician: Paulette Quiles - Chief Complaint Increasing shortness of breath and confusion x 1 day - History of Present Illness Patient is a 63-year-old male with a past medical history significant for COPD reflux hypertension pneumonia atrial fibrillation chronic back pain, patient recently did have multiple admission to the hospital and the patient has been treated for pneumonia and COPD exacerbation, patient presenting to the ER for evaluation of increasing shortness of breath and this patient symptom apparently has been getting worse over the last few days, the patient also noticed to be agitated and confused en route to the ER by EMS patient denies having any headache or high-grade fever he did have some chills but no fever on presentation to the hospital patient was tachycardic mildly hypotensive and hypoxic currently on supplemental oxygen patient denies having any chest pain he did have a cough but not bring up any sputum but denies any nausea vomiting no abdominal pain or diarrhea has been complaining of back pain which has been chronic for him but no bowel or bladder problem and no lower extremity weakness patient on presentation the hospital was afebrile but he did have white count 27.2 with a left shift lactic acid was elevated creatinine was normal urine has been negative urine drug screen was positive for opiates and benzo marijuana influenza RSV COVID testing was negative patient did have a chest x-ray diffuse interstitial density correlate to exclude underlying atypical pneumonia or interstitial pneumonitis patient also have a CT of the chest abdominal pelvis with the patient count was changes especially upper and mid lungs consider atypical COVID-pneumonia circumferential wall thickening of the sigmoid sigmoid colon concerning for possible nondistention versus mild colitis patient has been admitted to ICU has been started on Rocephin and Zithromax infectious disease was consulted for further management of antibiotic therapy Review of Systems Positive point and negatives has been mentioned in the HPI, complete review of systems was performed and all other systems are negative Past Medical History Past Medical History: Atrial Fibrillation, COPD, GERD/Reflux, Hypertension, Pneumonia Additional Past Medical History / Comment(s): back pain spinal cord pinched in neck. SOB with activity History of Any Multi-Drug Resistant Organisms: None Reported Past Surgical History: Back Surgery Additional Past Surgical History / Comment(s): neck fusion,rt eye surgery, rt hand surgery, cateracts Past Anesthesia/Blood Transfusion Reactions: No Reported Reaction Past Psychological History: Depression Smoking Status: Current every day smoker Past Alcohol Use History: None Reported Past Drug Use History: Marijuana - Past Family History Mother History Unknown: Yes Family Medical History: Myocardial Infarction ([place]) Additional Family Medical History / Comment(s): from [place] Medications and Allergies Home Medications Medication Instructions Recorded Confirmed Type DULoxetine HCL [Cymbalta] 60 mg PO DAILY 04/15/22 12/10/23 History DULoxetine HCL [Cymbalta] 30 mg PO HS 05/10/23 12/10/23 History Tamsulosin [Flomax] 0.4 mg PO DAILY 05/10/23 12/10/23 History Albuterol Sulfate [Albuterol 2 puff INHALATION RT-QID PRN 10/12/23 12/10/23 History Sulfate Hfa] Ipratropium-Albuterol Nebulize 3 ml INHALATION RT-Q6H PRN 10/12/23 12/10/23 History [Duoneb 0.5 mg-3 mg/3 ml Soln] HYDROcodone/APAP 7.5-325MG [[place] 1 tab PO BID PRN 3 Days #6 tab 10/30/23 12/10/23 Rx 7.5-325] Baclofen [Lioresal] 20 mg PO TID 11/24/23 12/10/23 History Furosemide [Lasix] 20 mg PO DAILY 30 Days #30 tab 11/28/23 12/10/23 Rx Fluticasone/Umeclidin/Vilanter 1 puff INHALATION RT-DAILY 12/10/23 12/10/23 History [Trelegy Ellipta 100-62.5-25] predniSONE See Taper PO DAILY 12/10/23 12/10/23 History Allergies Allergy/AdvReac Type Severity Reaction Status Date / Time sacubitril [From Entresto] Allergy hives Verified 12/10/23 18:09 trazodone Allergy Rash/Hives Verified 12/10/23 18:09 valsartan [From Entresto] Allergy hives Verified 12/10/23 18:09 Physical Exam Vitals: Vital Signs Temp Pulse Resp BP Pulse Ox 12/11/23 10:00 96 18 108/79 93 L 12/11/23 09:00 95 18 155/86 95 12/11/23 08:22 84 12/11/23 08:10 87 12/11/23 08:00 93 18 157/95 94 L 12/11/23 07:45 80 18 168/82 99 12/11/23 06:45 92 12 159/145 97 12/11/23 04:14 110 H 24 166/106 98 12/11/23 03:34 86 8 L 159/103 100 12/11/23 01:48 98.2 F 12/11/23 01:07 71 10 L 112/71 98 12/10/23 23:18 77 16 98 12/10/23 22:30 101 H 98 12/10/23 19:57 97.1 F L 86 16 124/86 99 12/10/23 19:00 90 18 129/86 94 L 12/10/23 17:41 101 H 12/10/23 17:14 98 14 114/91 100 12/10/23 16:58 104 H 12/10/23 16:08 138 H Intake and Output 12/10/23 12/11/23 12/11/23 22:59 06:59 14:59 Intake Total 3.663 21.558 Output Total 600 Balance -596.337 21.558 Intake: Intake, IV Titration 3.663 21.558 Amount Dexmedetomidine/0.9% NaCl 3.663 21.558 (Pmx) 400 mcg In Empty Bag 1 bag @ 0.2 MCG/KG/HR 3.856 mls/hr IV .Q24H [facility] Rx#:[id number] Output: Urine 600 Uretheral (Brand) 600 Other: Weight 77.111 kg GENERAL DESCRIPTION: Middle-aged male lying in bed, no distress. No tachypnea or accessory muscle of respiration use. HEENT: Shows Pallor , no scleral icterus. Oral mucous membrane is dry. No pharyngeal erythema or thrush NECK: Trachea central, no thyromegaly. LUNGS: Unlabored breathing. decreased intensity breath sounds no wheeze HEART: S1, S2, regular rate and rhythm. No loud murmur ABDOMEN: Soft, no tenderness , guarding or rigidity, no organomegaly EXTREMITIES: No edema of feet. SKIN: No rash, no masses palpable. NEUROLOGICAL: The patient is awake, alert, oriented x3, mood and affect normal. Results CBC & Chem 7: 12/12/23 05:33 12/12/23 05:33 Labs: Abnormal Lab Results - Last 24 Hours (Table) 12/10/23 12/10/23 12/10/23 Range/Units 16:33 16:33 16:33 WBC 27.2 H (3.8-10.6) k/uL Hgb (13.0-17.5) gm/dL MCHC (31.0-37.0) g/dL RDW 15.6 H (11.5-15.5) % Neutrophils # 23.3 H (1.3-7.7) k/uL Lymphocytes # (1.0-4.8) k/uL Monocytes # 1.5 H (0-1.0) k/uL PT 9.5 L (10.0-12.5) sec APTT 21.6 L (22.0-30.0) sec ABG pCO2 (35-45) mmHg ABG pO2 (83-108) mmHg ABG HCO3 (21-25) mmol/L ABG Total CO2 (19-24) mmol/L ABG O2 Saturation (94-97) % Chloride (98-107) mmol/L Creatinine (0.66-1.25) mg/dL Glucose (74-99) mg/dL POC Glucose (mg/dL) (70-110) mg/dL Plasma Lactic Acid Pierre (0.7-2.0) mmol/L Urine Protein 1+ H (Negative) Urine Glucose (UA) 1+ H (Negative) Ur Leukocyte Esterase Small H (Negative) Urine WBC 10 H (0-5) /hpf Hyaline Casts 5 H (0-2) /lpf Urine Mucus Moderate H (None) /hpf Urine Yeast (Budding) Rare H (None) /hpf Urine Opiates Screen Detected H (NotDetected) U Benzodiazepines Scrn Detected H (NotDetected) U Marijuana (THC) Screen Detected H (NotDetected) 12/10/23 12/10/23 12/10/23 Range/Units 16:33 16:56 17:34 WBC (3.8-10.6) k/uL Hgb (13.0-17.5) gm/dL MCHC (31.0-37.0) g/dL RDW (11.5-15.5) % Neutrophils # (1.3-7.7) k/uL Lymphocytes # (1.0-4.8) k/uL Monocytes # (0-1.0) k/uL PT (10.0-12.5) sec APTT (22.0-30.0) sec ABG pCO2 47 H (35-45) mmHg ABG pO2 80 L (83-108) mmHg ABG HCO3 27 H (21-25) mmol/L ABG Total CO2 28 H (19-24) mmol/L ABG O2 Saturation (94-97) % Chloride 109 H (98-107) mmol/L Creatinine (0.66-1.25) mg/dL Glucose (74-99) mg/dL POC Glucose (mg/dL) 115 H (70-110) mg/dL Plasma Lactic Acid Pierre (0.7-2.0) mmol/L Urine Protein (Negative) Urine Glucose (UA) (Negative) Ur Leukocyte Esterase (Negative) Urine WBC (0-5) /hpf Hyaline Casts (0-2) /lpf Urine Mucus (None) /hpf Urine Yeast (Budding) (None) /hpf Urine Opiates Screen (NotDetected) U Benzodiazepines Scrn (NotDetected) U Marijuana (THC) Screen (NotDetected) 12/10/23 12/10/23 12/11/23 Range/Units 18:44 22:00 00:34 WBC (3.8-10.6) k/uL Hgb (13.0-17.5) gm/dL MCHC (31.0-37.0) g/dL RDW (11.5-15.5) % Neutrophils # (1.3-7.7) k/uL Lymphocytes # (1.0-4.8) k/uL Monocytes # (0-1.0) k/uL PT (10.0-12.5) sec APTT (22.0-30.0) sec ABG pCO2 (35-45) mmHg ABG pO2 (83-108) mmHg ABG HCO3 (21-25) mmol/L ABG Total CO2 (19-24) mmol/L ABG O2 Saturation (94-97) % Chloride (98-107) mmol/L Creatinine (0.66-1.25) mg/dL Glucose (74-99) mg/dL POC Glucose (mg/dL) (70-110) mg/dL Plasma Lactic Acid Pierre 2.7 H* 3.9 H* 2.9 H* (0.7-2.0) mmol/L Urine Protein (Negative) Urine Glucose (UA) (Negative) Ur Leukocyte Esterase (Negative) Urine WBC (0-5) /hpf Hyaline Casts (0-2) /lpf Urine Mucus (None) /hpf Urine Yeast (Budding) (None) /hpf Urine Opiates Screen (NotDetected) U Benzodiazepines Scrn (NotDetected) U Marijuana (THC) Screen (NotDetected) 12/11/23 12/11/23 12/11/23 Range/Units 01:26 03:40 04:45 WBC (3.8-10.6) k/uL Hgb (13.0-17.5) gm/dL MCHC (31.0-37.0) g/dL RDW (11.5-15.5) % Neutrophils # (1.3-7.7) k/uL Lymphocytes # (1.0-4.8) k/uL Monocytes # (0-1.0) k/uL PT (10.0-12.5) sec APTT (22.0-30.0) sec ABG pCO2 31 L (35-45) mmHg ABG pO2 126 H 118 H (83-108) mmHg ABG HCO3 (21-25) mmol/L ABG Total CO2 25 H (19-24) mmol/L ABG O2 Saturation 99.8 H 99.4 H (94-97) % Chloride (98-107) mmol/L Creatinine (0.66-1.25) mg/dL Glucose (74-99) mg/dL POC Glucose (mg/dL) (70-110) mg/dL Plasma Lactic Acid Pierre 4.5 H* (0.7-2.0) mmol/L Urine Protein (Negative) Urine Glucose (UA) (Negative) Ur Leukocyte Esterase (Negative) Urine WBC (0-5) /hpf Hyaline Casts (0-2) /lpf Urine Mucus (None) /hpf Urine Yeast (Budding) (None) /hpf Urine Opiates Screen (NotDetected) U Benzodiazepines Scrn (NotDetected) U Marijuana (THC) Screen (NotDetected) 12/11/23 12/11/23 Range/Units 04:55 04:55 WBC 13.6 H (3.8-10.6) k/uL Hgb 12.9 L (13.0-17.5) gm/dL MCHC 30.5 L (31.0-37.0) g/dL RDW 15.8 H (11.5-15.5) % Neutrophils # 12.8 H (1.3-7.7) k/uL Lymphocytes # 0.5 L (1.0-4.8) k/uL Monocytes # (0-1.0) k/uL PT (10.0-12.5) sec APTT (22.0-30.0) sec ABG pCO2 (35-45) mmHg ABG pO2 (83-108) mmHg ABG HCO3 (21-25) mmol/L ABG Total CO2 (19-24) mmol/L ABG O2 Saturation (94-97) % Chloride 113 H (98-107) mmol/L Creatinine 0.64 L (0.66-1.25) mg/dL Glucose 147 H (74-99) mg/dL POC Glucose (mg/dL) (70-110) mg/dL Plasma Lactic Acid Pierre (0.7-2.0) mmol/L Urine Protein (Negative) Urine Glucose (UA) (Negative) Ur Leukocyte Esterase (Negative) Urine WBC (0-5) /hpf Hyaline Casts (0-2) /lpf Urine Mucus (None) /hpf Urine Yeast (Budding) (None) /hpf Urine Opiates Screen (NotDetected) U Benzodiazepines Scrn (NotDetected) U Marijuana (THC) Screen (NotDetected) Assessment and Plan (1) Sepsis Current Visit: Yes Status: Acute Code(s): A41.9 - SEPSIS, UNSPECIFIED ORGANISM SNOMED Code(s): 40888659 (2) Bilateral pneumonia Current Visit: No Status: Acute Code(s): J18.9 - PNEUMONIA, UNSPECIFIED ORGANISM SNOMED Code(s): 023676114 Plan: 1patient presented to hospital with increasing shortness of breath he did have a cough not been complaining sputum patient did not have any fever but did have elevated white count chest x-ray and CT has been showing groundglass opacity concerning for pneumonia patient did test negative for influenza and COVID with a question of community-acquired pneumonia. 2we will check a urine for Legionella antigen antigen pending sputum for Gram stain culture check a procalcitonin level. 3continue with Rocephin and Zithromax as the patient white count is trending down. We will follow on clinical condition and cultures to further adjust medication if needed Thank you for this consultation we will follow the patient along with you Dictation was produced using [employer] dictation software. please excuse any grammatical, word or spelling errors.
[2023-12-12] MEDS: HYDROcodone/APAP 7.5-325MG 1 EACH TAB PO PRN ×2 (05:55→13:34)
[2023-12-12 06:02] LABS: Basophils % (A) 0 %; Eosinophils % (A) 0 %; HCT 35.1 % (39.0-53.0); HGB 10.5 gm/dL (13.0-17.5); Hypochromasia Moderate; Lymphocytes # (A) 0.6 k/uL (1.0-4.8); Lymphocytes % (A) 5 %; MCH 27.9 pg (25.0-35.0); MCHC 29.9 g/dL (31.0-37.0); MCV 93.5 fL (80.0-100.0); Mean Platelet Volume 8.5; Monocytes # (A) 0.5 k/uL (0-1.0); Monocytes % (A) 4 %; Neutrophils # (A) 11.9 k/uL (1.3-7.7); Neutrophils % (A) 91 %; Platelet Count 214 k/uL (150-450); RBC 3.75 m/uL (4.30-5.90)
[2023-12-12 06:27] LABS: African American GFR (CKD) >90 (>60 ml/min/1.73 sqM); Anion Gap 3 mmol/L; Blood Urea Nitrogen 17 mg/dL (9-20); Carbon Dioxide 22 mmol/L (22-30); Chloride 114 mmol/L (98-107); Glucose 136 mg/dL (74-99); Non-African American GFR(CKD) >90 (>60 ml/min/1.73 sqM); Potassium 4.3 mmol/L (3.5-5.1); Sodium 139 mmol/L (137-145)
--- NOTE | 2023-12-12 07:03 | XR ---
EXAMINATION TYPE: XR chest 1V portable DATE OF EXAM: 12/12/2023 COMPARISON: 12/10/2023 INDICATION: Follow-up previous abnormal TECHNIQUE: Single frontal view of the chest is obtained. FINDINGS: The heart size is normal. The pulmonary vasculature is somewhat prominent. The lungs are clear. Previous interstitial findings have largely resolved IMPRESSION: 1. No acute pulmonary process.
[2023-12-12] MEDS ORDERED: NON FORMULARY DRUG (Fluticasone/Umeclidin/Vilanter [Trelegy Ellipta 100-62.5-25] 1 EACH Bl INHALATION SCH (08:00)
[2023-12-12] MEDS: DULoxetine HCL 60 MG CAPSULE.DR PO SCH (09:06)
--- NOTE | 2023-12-12 09:29 | CDI ---
Documentation Clarification Form Date: 12/12/2023 08:57:03 AM From: Ade Galloway RN CCDS Phone: [phone] Admit Date: 12/10/2023 06:53:00 PM Patient Name: Fausto Willis Visit Number: [id number] Discharge Date: ATTENTION: The Clinical Documentation Specialists (CDI) and [facility] Coding Staff appreciate your assistance in clarifying documentation. Please respond to the clarification below the line at the bottom and electronically sign. The CDI & [facility] Coding staff will review the response and follow-up if needed. Please note: Queries are made part of the Legal Health Record. If you have any questions, please contact the author of this message via ITS. Doctor Claire Sebastian Your patient has the documented symptom of Altered Mental Status 716, HP. Additional clarification regarding the etiology/cause of this symptom is requested. History/Risk Factors: 63-year-old male presents to altered mental status. Medical History: COPD recently hospitalized for suspected bilateral pneumonia was intubated at that time subsequently discharged on Levaquin that was earlier this month. 12/10 HP Clinical Indicators: Labs, 12/09: Wbc 27.2, Neutrophils 23.3; Blood gas: PH 7.37, pCO2 47, pO2 80, HCO3 27; CO2 28; CHL 109; Lactic acid 2.7; Toxicology: Opiates, Benzodiazepines, THC CXR, 12/09: Diffuse interstitial density. Brain CT, 12/09: No acute intracranial abnormality seen. Treatment: 12/09 0.9NS 500cc IV Fluid; 12/09 0.9NS 1L IV Fluids; 12/09 Ativan 1mg IM x 3; 12/09 Zyprexa 5mg IM x 1; 12/09 Zyprexa 5mg IM x 1; 12/09 Ativan 1mg IV PRN Agitation Please clarify the etiology of the symptom of Altered Mental Status: [ ] Toxic Metabolic Encephalopathy due to Marijuana use [ x ] Other condition (please specify)____toxic encephalopathy dur to pneumonia [ ] Unable to determine (Template Last Revised: June 2020) MTDD
[2023-12-12] MEDS: FUROSEMIDE 20 MG TAB PO SCH (09:58)
[2023-12-12] MEDS ORDERED: BACLOFEN 10 MG TAB PO PRN (11:14)
[2023-12-12] MEDS: BACLOFEN 10 MG TAB PO SCH (11:34)
--- NOTE | 2023-12-12 11:51 | P.PN ---
Subjective Progress Note Date: 12/12/23 Principal diagnosis: Reason for follow-up is sepsis possible pneumonia Patient is a 63-year-old male with a past medical history significant for COPD reflux hypertension pneumonia atrial fibrillation chronic back pain presented to the hospital with increasing shortness of breath confusion patient has been diagnosed with possible sepsis related to pneumonia and COPD e xacerbation admit to the ICU. On today's evaluation that is 12/12/2023, the patient continues to be afebrile, the patient is on room air and breathing comfortably, the Pt denies having any chest pain or any worsening cough, the patient denies having any abdominal pain no vomiting or any diarrhea, patient mention feeling much better compared to yesterday. Patient white count is 13,000, creatinine 0.67 blood cultures pending Objective - Vital Signs Vital signs: Vital Signs Temp 97.8 F 12/12/23 08:00 Pulse 97 12/12/23 11:00 Resp 20 12/12/23 11:00 BP 131/86 12/12/23 10:00 Pulse Ox 98 12/12/23 09:00 FiO2 Intake & Output 12/11/23 12/12/23 12/12/23 18:59 06:59 18:59 Intake Total 709.432 2936.505 525 Output Total 800 1125 110 Balance -470.417 -3.495 415 Weight 77.111 kg 78 kg Intake: IV 975 525 Azithromycin 500 mg In 250 Sodium Chloride 0.9% 250 ml @ 250 mls/hr IVPB DAILY [facility] Rx#:[id number] Sodium Chloride 0.9% 1, 975 225 000 ml @ 10 mls/hr IV . Q24H [facility] Rx#:[id number] cefTRIAXone 1 gm In 50 Sodium Chloride 0.9% 50 ml @ 100 mls/hr IVPB Q24HR [facility] Rx#:[id number] Intake, IV Titration 79.583 26.505 Amount Dexmedetomidine/0.9% NaCl 79.583 26.505 (Pmx) 400 mcg In Empty Bag 1 bag @ 0.2 MCG/KG/HR 3.856 mls/hr IV .Q24H [facility] Rx#:[id number] Oral 250 120 Output: Urine 800 1125 110 Other: Voiding Method Bedside Commode Indwelling Catheter Indwelling Catheter - Exam GENERAL DESCRIPTION: Middle-age male up in the chair in no distress RESPIRATORY SYSTEM: Unlabored breathing , decreased breath sounds at bases HEART: S1 S2 regular rate and rhythm , ABDOMEN: Soft , no tenderness EXTREMITIES: No edema feet - Labs CBC & Chem 7: 12/12/23 05:33 12/12/23 05:33 Labs: Abnormal Lab Results - Last 24 Hours (Table) 12/11/23 12/12/23 12/12/23 Range/Units 05:00 05:33 05:33 WBC 13.0 H (3.8-10.6) k/uL RBC 3.75 L (4.30-5.90) m/uL Hgb 10.5 L (13.0-17.5) gm/dL Hct 35.1 L (39.0-53.0) % MCHC 29.9 L (31.0-37.0) g/dL RDW 16.0 H (11.5-15.5) % Neutrophils # 11.9 H (1.3-7.7) k/uL Lymphocytes # 0.6 L (1.0-4.8) k/uL Chloride 114 H (98-107) mmol/L Glucose 136 H (74-99) mg/dL Procalcitonin 0.12 H (0.02-0.09) ng/mL Microbiology - Last 24 Hours (Table) 12/10/23 18:25 Blood Culture - Preliminary Blood 12/10/23 18:40 Blood Culture - Preliminary Blood Assessment and Plan (1) Sepsis Current Visit: Yes Status: Acute Code(s): A41.9 - SEPSIS, UNSPECIFIED ORGANISM SNOMED Code(s): 24243960 (2) Bilateral pneumonia Current Visit: No Status: Acute Code(s): J18.9 - PNEUMONIA, UNSPECIFIED ORGANISM SNOMED Code(s): 308020185 Plan: 1patient presented to hospital with increasing shortness of breath he did have a cough not been complaining sputum patient did not have any fever but did have elevated white count chest x-ray and CT has been showing groundglass opacity concerning for pneumonia patient did test negative for influenza and COVID with a question of community-acquired pneumonia. 2currently waiting for urine for Legionella antigen, sputum for Gram stain culture and procalcitonin level. 3patient to continue with Rocephin and Zithromax in view of clinical improvement and monitor clinical course closely Dictation was produced using [employer] dictation software. please excuse any grammatical, word or spelling errors. Time with Patient: Less than 30
--- NOTE | 2023-12-12 13:17 | P.PN ---
Subjective Progress Note Date: 12/12/23 Principal diagnosis: Shortness of breath. Patient is a 63-year-old white male with past medical history significant for COPD, as needed home O2, chronic ongoing tobacco dependence, pneumonia, prior ventilator dependent respiratory failure, GERD, hypertension, atrial fibrillation, among other things. He has had multiple hospitalizations so far this year. Of note, patient did have a hospitalization in September 2023, at this time, he was admitted with a COPD exacerbation and suspected bilateral pneumonia. He did spend some time in the intensive care unit, and was briefly intubated to the mechanical ventilator. He did have a bronchoscopy with BAL, and microbiology did not reveal any bacterial growth. He does have history of previous Pseudomonas aeruginosa infections. More recently, he had a hospitalization earlier this month, he was admitted for acute COPD exacerbation along with UTI. Discharged on 11/28/2023 with course of p.o. Levaquin. Patient returned to emergency department yesterday afternoon with altered mental status. He was agitated and confused. I did call patient's , who states that he was acting normal on Sunday. They went to the beach and a birthday constitution party. Yesterday, she noted him to be slightly confused when she left for work. When she got home, he was agitated, swearing and pacing around. His states that he does not use any recreational drugs other than marijuana. Also, denies any current alcohol drinking. There is questionable history of alcoholism. She states that he gets this way when he has an infection. He appeared to be short of breath. Denies any fevers while at home. Patient is currently emergency department, room 11, he is agitated and not making sense. He is thrashing around in bed. He is difficult to redirect. He has received multiple doses of benzodiazepines and antipsychotics. Actually, received a total of 8 mg of Versed, 5 mg of Ativan, 5 mg of Zyprexa, as well as, 5 mg of Haldol. Urine toxicology screen positive for opiates, benzodiazepines, and marijuana. Serum alcohol less than 10. He is currently on 2 L/min nasal cannula. He is having brief episodes of apnea. Multiple ABGs have been done, most recent demonstrates a PaO2 of 126, pCO2 of 31, pH of 7.45. None are consistent with CO2 narcosis. CT of the brain without contrast does not show any acute intracranial abnormality. There is chronic right maxillary sinus disease. A CT of the chest, abdomen, and pelvis shows multifocal hazy and patchy groundglass infiltrates in the upper to mid lung similar to slightly worsened from previous examination on 11/25/2023. Findings consistent with atypical pneumonia or interstitial pneumonitis. There is also a nonobstructive 4 mm right renal stone. Circumferential wall thickening of the mid sigmoid colon which could indicate mild colitis or may be due to nondistention. CBC: WBC count 27.2, hemoglobin 14.2, hematocrit 45.5, platelets 272. BMP: Sodium 144, potassium 4.6, chloride 109, serum bicarb 23, BUN 14, creatinine 0.86, glucose 99. Lactic acid as high as 3.9 down to 2.9. He has been fluid bolused with 1.5 L normal saline. He does have an indwelling urinary catheter with approximately 400 mL of chapincito-colored urine and the drainage bag. Urinalysis demonstrating small a mount of leukocyte esterase, glucosuria, proteinuria. He is empirically been started on Zosyn in the emergency department. He is afebrile. Blood pressure is slightly hypertensive in the setting of acute agitation/delirium. Heart rhythm appears sinus tachycardia with a rate of 110 bpm. Respiratory rate is in the mid 20s. SpO2 98%. Patient will be best monitored in the intensive care unit. Progress note dated December 12, 2023. 63-year-old male seen in the emergency department yesterday. The patient is in the intensive care unit today, in room 259. He was transferred to the ICU, because he was quite agitated, and required dexmedetomidine. Currently he is on room air. He is getting saline at 75 cc an hour. He is sitting in the chair next to his hospital bed, and can be transferred out of the intensive care unit. He can go to the general medical floor, without telemetry. Current laboratory data includes a white count of 13, hemoglobin 10.5, hematocrit 35.1, and a normal platelet count. Sodium 139, potassium 4.3, chlorides 114, CO2 22, BUN 17, creatinine 0.67. Glucose is 136. Calcium is 9. Procalcitonin level 0.12. Blood cultures are currently negative. Chest x-ray is negative. Objective - Vital Signs Vital signs: Vital Signs Temp 97.8 F 12/12/23 08:00 Pulse 97 12/12/23 11:00 Resp 20 12/12/23 11:00 BP 131/86 12/12/23 10:00 Pulse Ox 98 12/12/23 09:00 FiO2 Intake & Output 12/11/23 12/12/23 12/12/23 18:59 06:59 18:59 Intake Total 615.269 4423.505 525 Output Total 800 1125 610 Balance -470.417 -3.495 -85 Weight 77.111 kg 78 kg Intake: IV 975 525 Azithromycin 500 mg In 250 Sodium Chloride 0.9% 250 ml @ 250 mls/hr IVPB DAILY [facility] Rx#:[id number] Sodium Chloride 0.9% 1, 975 225 000 ml @ 10 mls/hr IV . Q24H [facility] Rx#:[id number] cefTRIAXone 1 gm In 50 Sodium Chloride 0.9% 50 ml @ 100 mls/hr IVPB Q24HR [facility] Rx#:[id number] Intake, IV Titration 79.583 26.505 Amount Dexmedetomidine/0.9% NaCl 79.583 26.505 (Pmx) 400 mcg In Empty Bag 1 bag @ 0.2 MCG/KG/HR 3.856 mls/hr IV .Q24H [facility] Rx#:[id number] Oral 250 120 Output: Urine 800 1125 610 Other: Voiding Method Bedside Commode Indwelling Catheter Indwelling Catheter - Exam No acute distress, oriented 3. Currently on room air. No respiratory distress. HEENT examination is grossly unremarkable. Mucous membranes are moist. No oral lesions. Neck supple. Full range of motion. No adenopathy thyromegaly or neck vein distention. Cardiovascular examination reveals regular rhythm rate. S1-S2 normal. No S3 or S4. No discernible murmur noted. Lungs reveal mild scattered rhonchi. No wheezes or crackles. Breath sounds are equal bilaterally. Saturations are 94% on room air. Abdomen soft bowel sounds are heard. No masses or tenderness. Extremities are intact. No cyanosis clubbing or edema. Skin is without rash or lesion. Neurologic examination is brief but nonfocal. - Labs CBC & Chem 7: 12/12/23 05:33 12/12/23 05:33 Labs: Abnormal Lab Results - Last 24 Hours (Table) 12/12/23 12/12/23 Range/Units 05:33 05:33 WBC 13.0 H (3.8-10.6) k/uL RBC 3.75 L (4.30-5.90) m/uL Hgb 10.5 L (13.0-17.5) gm/dL Hct 35.1 L (39.0-53.0) % MCHC 29.9 L (31.0-37.0) g/dL RDW 16.0 H (11.5-15.5) % Neutrophils # 11.9 H (1.3-7.7) k/uL Lymphocytes # 0.6 L (1.0-4.8) k/uL Chloride 114 H (98-107) mmol/L Glucose 136 H (74-99) mg/dL Microbiology - Last 24 Hours (Table) 12/10/23 18:25 Blood Culture - Preliminary Blood 12/10/23 18:40 Blood Culture - Preliminary Blood Assessment and Plan Assessment: Acute hypoxemic respiratory failure, possibly secondary to acute COPD exacerbation. Lactic acidemia, resolved. Acute leukocytosis. Altered mental status, under investigation. History of paroxysmal atrial fibrillation. History of hypertension. History of gastroesophageal reflux disease. History of ventilator dependent respiratory failure. Chronic marijuana use. Chronic ongoing tobacco dependence. History of depression. Questional history of alcoholism, patient's denies any recent alcohol abuse. Plan: Plan December 12, 2023. The patient is doing well. He is seen in the intensive care unit, room 259. The patient is on room air. He is getting saline at 75 cc an hour. The patient had an uneventful night, and can be transferred to the general medical floor without telemetry. Labs, x-rays, and medications are reviewed. Prognosis is guarded. We will continue to follow the patient, make recommendations along the way. His procalcitonin level is normal. Antibiotics can be discontinued. Time with Patient: Less than 30
--- NOTE | 2023-12-12 15:02 | P.PN ---
Subjective Progress Note Date: 12/12/23 63-year-old male came in with complaints of altered mental status. Patient is found to have white count of 27,000 without any fever chest x-ray showed hazy groundglass opacities can be atypical pneumonia BNP is within normal limits. No other clinical evidence of infection, urine is not impressive for urinary tract infection. Urine drug screen is positive for marijuana and opiates. Patient was started on Zosyn, pulmonary and infectious disease was consulted patient was started on azithromycin by pulmonary because of concerns of atypical pneumonia. Patient had history of COPD was recently hospitalized for suspected bilateral pneumonia was intubated at that time subsequently discharged on Levaquin that was earlier this month. Patient mental status is at his baseline at this time patient had a procalcitonin which is within normal limits. Patient denies any alcohol or drug abuse although his drug screen is positive for marijuana as mentioned above. 12/12/2023 Patient is evaluated in follow-up resting in the intensive care unit. Patient sitting up in the chair reports improvement in his shortness of breath. Patient's main complaint today is his chronic neck pain and back pain he will be resumed on his home medications of [place] as well as his baclofen. Patient will need to be seen by physical therapy. He does report increased anxiety at this point would recommend for patient to follow-up with [facility] on discharge as he does use marijuana as well as narcotics and muscle relaxer on an outpatient basis. Patient remains on IV ceftriaxone IV azithromycin and IV So chaz-Medrol. His lungs are clear today. He is downgraded from the intensive care unit. Procalcitonin level was found to be 0.12. Review of Systems Constitutional: Denied any fatigue denied any fever. Cardio vascular: denied any chest pain, palpitations Gastrointestinal: denied any nausea, vomiting, diarrhea Pulmonary: Denied any shortness of breath cough Neurologic denied any new focal deficits All inpatient medications were reviewed and appropriate changes in these medications as dictated in the interval history and assessment and plan. PHYSICAL EXAMINATION: GENERAL: The patient is alert and oriented x3, not in any acute distress. Well developed, well nourished. HEENT: Pupils are round and equally reacting to light. EOMI. No scleral icterus. No conjunctival pallor. Normocephalic, atraumatic. No pharyngeal erythema. No thyromegaly. CARDIOVASCULAR: S1 and S2 present. No murmurs, rubs, or gallops. PULMONARY: Chest is clear to auscultation, no wheezing or crackles. ABDOMEN: Soft, nontender, nondistended, normoactive bowel sounds. No palpable organomegaly. MUSCULOSKELETAL: No joint swelling or deformity. EXTREMITIES: No cyanosis, clubbing, or pedal edema. NEUROLOGICAL: Gross neurological examination did not reveal any focal deficits. SKIN: No rashes. Assessment and plan -Altered mental status encephalopathy no clear evidence of infection except for white count patient will be continued on empiric treatment and will also continue treatment for atypical pneumonia with azithromycin. Continue with Rocephin infectious disease was consulted leukocytosis may be just reactive and confusion may be related to marijuana use. -Lactic acidosis-May be secondary to sepsis or intravascular volume depletion IV fluids will be continued -Acute hypoxic respiratory failure secondary to COPD exacerbation continue systemic steroids and additional treatments -Hypertension -Gastroesophageal reflux disease -Marijuana use: Counseling was provided DVT prophylaxis: Lovenox Patient was moved out of the intensive care unit when bed becomes available. Continue IV antibotics IV steroids. Procalcitonin level is within normal limits. Patient will need to be eval with physical therapy. The impression and plan of care has been dictated by Loreta Hough, Nurse Practitioner as directed. Dr. Jaz MD I have performed a history and physical examination and medical decision making of this patient, discussed the same with the dictator, and agree with the dictators assessment and plan as written, documented as a scribe. Based on total visit time, I have performed more than 50% of this visit. Objective - Vital Signs Vital signs: Vital Signs Temp 98.1 F 12/12/23 04:00 Pulse 89 12/12/23 07:00 Resp 15 12/12/23 07:00 BP 129/86 12/12/23 07:00 Pulse Ox 94 L 12/12/23 07:42 FiO2 Intake & Output 12/11/23 12/12/23 12/12/23 18:59 06:59 18:59 Intake Total 778.994 3242.505 75 Output Total 800 1125 35 Balance -470.417 -3.495 40 Weight 77.111 kg 78 kg Intake: IV 975 75 Sodium Chloride 0.9% 1, 975 75 000 ml @ 75 mls/hr IV . [id number] [facility] Rx#:[id number] Intake, IV Titration 79.583 26.505 Amount Dexmedetomidine/0.9% NaCl 79.583 26.505 (Pmx) 400 mcg In Empty Bag 1 bag @ 0.2 MCG/KG/HR 3.856 mls/hr IV .Q24H [facility] Rx#:[id number] Oral 250 120 Output: Urine 800 1125 35 Other: Voiding Method Bedside Commode Indwelling Catheter - Labs CBC & Chem 7: 12/12/23 05:33 12/12/23 05:33 Labs: Abnormal Lab Results - Last 24 Hours (Table) 12/11/23 12/12/23 12/12/23 Range/Units 05:00 05:33 05:33 WBC 13.0 H (3.8-10.6) k/uL RBC 3.75 L (4.30-5.90) m/uL Hgb 10.5 L (13.0-17.5) gm/dL Hct 35.1 L (39.0-53.0) % MCHC 29.9 L (31.0-37.0) g/dL RDW 16.0 H (11.5-15.5) % Neutrophils # 11.9 H (1.3-7.7) k/uL Lymphocytes # 0.6 L (1.0-4.8) k/uL Chloride 114 H (98-107) mmol/L Glucose 136 H (74-99) mg/dL Procalcitonin 0.12 H (0.02-0.09) ng/mL Microbiology - Last 24 Hours (Table) 12/10/23 18:25 Blood Culture - Preliminary Blood 12/10/23 18:40 Blood Culture - Preliminary Blood Assessment and Plan Time with Patient: Less than 30
[2023-12-12] MEDS: ALBUTEROL NEBULIZED 2.5 MG/3 ML INHALATION SCH (15:37)
[2023-12-12] MEDS: TRELEGY ELLIPTA INHALATION SCH (15:53)
[2023-12-13] MEDS: ACETAMINOPHEN TAB 325 MG TAB PO PRN (02:44)
[2023-12-13] MEDS: MELATONIN 5 MG TABLET PO STA (03:29)
[2023-12-13 08:26] VITALS: RESP 17
--- NOTE | 2023-12-13 11:06 | P.PN ---
Subjective Progress Note Date: 12/13/23 Principal diagnosis: Shortness of breath. Patient is a 63-year-old white male with past medical history significant for COPD, as needed home O2, chronic ongoing tobacco dependence, pneumonia, prior ventilator dependent respiratory failure, GERD, hypertension, atrial fibrillation, among other things. He has had multiple hospitalizations so far this year. Of note, patient did have a hospitalization in September 2023, at this time, he was admitted with a COPD exacerbation and suspected bilateral pneumonia. He did spend some time in the intensive care unit, and was briefly intubated to the mechanical ventilator. He did have a bronchoscopy with BAL, and microbiology did not reveal any bacterial growth. He does have history of previous Pseudomonas aeruginosa infections. More recently, he had a hospitalization earlier this month, he was admitted for acute COPD exacerbation along with UTI. Discharged on 11/28/2023 with course of p.o. Levaquin. Patient returned to emergency department yesterday afternoon with altered mental status. He was agitated and confused. I did call patient's , who states that he was acting normal on Sunday. They went to the beach and a birthday alliance party. Yesterday, she noted him to be slightly confused when she left for work. When she got home, he was agitated, swearing and pacing around. His states that he does not use any recreational drugs other than marijuana. Also, denies any current alcohol drinking. There is questionable history of alcoholism. She states that he gets this way when he has an infection. He appeared to be short of breath. Denies any fevers while at home. Patient is currently emergency department, room 11, he is agitated and not making sense. He is thrashing around in bed. He is difficult to redirect. He has received multiple doses of benzodiazepines and antipsychotics. Actually, received a total of 8 mg of Versed, 5 mg of Ativan, 5 mg of Zyprexa, as well as, 5 mg of Haldol. Urine toxicology screen positive for opiates, benzodiazepines, and marijuana. Serum alcohol less than 10. He is currently on 2 L/min nasal cannula. He is having brief episodes of apnea. Multiple ABGs have been done, most recent demonstrates a PaO2 of 126, pCO2 of 31, pH of 7.45. None are consistent with CO2 narcosis. CT of the brain without contrast does not show any acute intracranial abnormality. There is chronic right maxillary sinus disease. A CT of the chest, abdomen, and pelvis shows multifocal hazy and patchy groundglass infiltrates in the upper to mid lung similar to slightly worsened from previous examination on 11/25/2023. Findings consistent with atypical pneumonia or interstitial pneumonitis. There is also a nonobstructive 4 mm right renal stone. Circumferential wall thickening of the mid sigmoid colon which could indicate mild colitis or may be due to nondistention. CBC: WBC count 27.2, hemoglobin 14.2, hematocrit 45.5, platelets 272. BMP: Sodium 144, potassium 4.6, chloride 109, serum bicarb 23, BUN 14, creatinine 0.86, glucose 99. Lactic acid as high as 3.9 down to 2.9. He has been fluid bolused with 1.5 L normal saline. He does have an indwelling urinary catheter with approximately 400 mL of chapincito-colored urine and the drainage bag. Urinalysis demonstrating small a mount of leukocyte esterase, glucosuria, proteinuria. He is empirically been started on Zosyn in the emergency department. He is afebrile. Blood pressure is slightly hypertensive in the setting of acute agitation/delirium. Heart rhythm appears sinus tachycardia with a rate of 110 bpm. Respiratory rate is in the mid 20s. SpO2 98%. Patient will be best monitored in the intensive care unit. Progress note dated December 12, 2023. 63-year-old male seen in the emergency department yesterday. The patient is in the intensive care unit today, in room 259. He was transferred to the ICU, because he was quite agitated, and required dexmedetomidine. Currently he is on room air. He is getting saline at 75 cc an hour. He is sitting in the chair next to his hospital bed, and can be transferred out of the intensive care unit. He can go to the general medical floor, without telemetry. Current laboratory data includes a white count of 13, hemoglobin 10.5, hematocrit 35.1, and a normal platelet count. Sodium 139, potassium 4.3, chlorides 114, CO2 22, BUN 17, creatinine 0.67. Glucose is 136. Calcium is 9. Procalcitonin level 0.12. Blood cultures are currently negative. Chest x-ray is negative. Progress note dated December 13, 2023. Patient is a 63-year-old male seen in the emergency department on December 10 for shortness of breath and agitation. He is on general medical floor. Today he is feeling a lot better, does not complain of shortness of breath or cough. Currently he is on room air with O2 sat 99%. He is sitting on his hospital bed and is back to his baseline. Current laboratory data shows a WBC of 13, hemoglobin 10.5, hematocrit 35.1, platelets [id number], sodium 139, potassium 4.3, chloride 114, BUN of 17, creatinine 0.67 and glucose 136. He is hemodynamically stable and can be discharged home from the pulmonary standpoint. Objective - Vital Signs Vital signs: Vital Signs Temp 98.4 F 12/13/23 07:32 Pulse 85 12/13/23 07:32 Resp 17 12/13/23 07:32 BP 158/96 12/13/23 07:32 Pulse Ox 99 12/13/23 07:32 FiO2 Intake & Output 12/12/23 12/13/23 12/13/23 18:59 06:59 18:59 Intake Total 525 Output Total 610 Balance -85 Weight 75.1 kg Intake: IV 525 Azithromycin 500 mg In 250 Sodium Chloride 0.9% 250 ml @ 250 mls/hr IVPB DAILY [facility] Rx#:[id number] Sodium Chloride 0.9% 1, 225 000 ml @ 10 mls/hr IV . Q24H [facility] Rx#:[id number] cefTRIAXone 1 gm In 50 Sodium Chloride 0.9% 50 ml @ 100 mls/hr IVPB Q24HR [facility] Rx#:[id number] Output: Urine 610 Other: Voiding Method Indwelling Catheter Toilet # Voids 2 - Exam No acute distress, oriented 3. Currently on room air. No respiratory distress. HEENT examination is grossly unremarkable. Mucous membranes are moist. No oral lesions. Neck supple. Full range of motion. No adenopathy thyromegaly or neck vein distention. Cardiovascular examination reveals regular rhythm rate. S1-S2 normal. No S3 or S4. No discernible murmur noted. Lungs reveal mild scattered rhonchi. No wheezes or crackles. Breath sounds are equal bilaterally. Saturations are 99% on room air. Abdomen soft bowel sounds are heard. No masses or tenderness. Extremities are intact. No cyanosis clubbing or edema. Skin is without rash or lesion. Neurologic examination is brief but nonfocal. - Labs CBC & Chem 7: 12/12/23 05:33 12/12/23 05:33 Labs: Microbiology - Last 24 Hours (Table) 12/10/23 18:25 Blood Culture - Preliminary Blood 12/10/23 18:40 Blood Culture - Preliminary Blood Assessment and Plan Assessment: Acute hypoxemic respiratory failure, possibly secondary to acute COPD exacerbation. Lactic acidemia, resolved. Acute leukocytosis. Altered mental status, under investigation. History of paroxysmal atrial fibrillation. History of hypertension. History of gastroesophageal reflux disease. History of ventilator dependent respiratory failure. Chronic marijuana use. Chronic ongoing tobacco dependence. History of depression. Questional history of alcoholism, patient's denies any recent alcohol abuse. Plan: Trelegy 1 puff The patient is doing well. He is seen on the general medical floor and is on room air. Patient had uneventful night and can be discharged home from the pulmonary standpoint. Time with Patient: Less than 30
--- NOTE | 2023-12-13 13:02 | P.PN ---
Subjective Progress Note Date: 12/13/23 Principal diagnosis: Reason for follow-up is sepsis possible pneumonia Patient is a 63-year-old male with a past medical history significant for COPD reflux hypertension pneumonia atrial fibrillation chronic back pain presented to the hospital with increasing shortness of breath confusion patient has been diagnosed with possible sepsis related to pneumonia and COPD e xacerbation admit to the ICU. On today's evaluation that is 12/13/2023, Patient is afebrile patient is currently on room air and breathing comfortably patient denies having any chest pain cough decreased intensity no nausea vomiting abdominal pain or diarrhea. No new labs were obtained today white count was 13,000 yesterday blood culture negative sputum not collected Objective - Vital Signs Vital signs: Vital Signs Temp 98.4 F 12/13/23 07:32 Pulse 85 12/13/23 07:32 Resp 17 12/13/23 07:32 BP 158/96 12/13/23 07:32 Pulse Ox 99 12/13/23 07:32 FiO2 Intake & Output 12/12/23 12/13/23 12/13/23 18:59 06:59 18:59 Intake Total 525 Output Total 610 Balance -85 Weight 75.1 kg Intake: IV 525 Azithromycin 500 mg In 250 Sodium Chloride 0.9% 250 ml @ 250 mls/hr IVPB DAILY [facility] Rx#:[id number] Sodium Chloride 0.9% 1, 225 000 ml @ 10 mls/hr IV . Q24H [facility] Rx#:[id number] cefTRIAXone 1 gm In 50 Sodium Chloride 0.9% 50 ml @ 100 mls/hr IVPB Q24HR [facility] Rx#:[id number] Output: Urine 610 Other: Voiding Method Indwelling Catheter Toilet # Voids 2 - Exam GENERAL DESCRIPTION: Middle-age male up in the chair in no distress RESPIRATORY SYSTEM: Unlabored breathing , decreased breath sounds at bases HEART: S1 S2 regular rate and rhythm , ABDOMEN: Soft , no tenderness EXTREMITIES: No edema feet - Labs CBC & Chem 7: 12/12/23 05:33 12/12/23 05:33 Labs: Microbiology - Last 24 Hours (Table) 12/10/23 18:25 Blood Culture - Preliminary Blood 12/10/23 18:40 Blood Culture - Preliminary Blood Assessment and Plan (1) Sepsis Current Visit: Yes Status: Acute Code(s): A41.9 - SEPSIS, UNSPECIFIED ORGANISM SNOMED Code(s): 81227452 (2) Bilateral pneumonia Current Visit: No Status: Acute Code(s): J18.9 - PNEUMONIA, UNSPECIFIED ORGANISM SNOMED Code(s): 581773143 Plan: 1patient presented to hospital with increasing shortness of breath he did have a cough not been complaining sputum patient did not have any fever but did have elevated white count chest x-ray and CT has been showing groundglass opacity concerning for pneumonia patient did test negative for influenza and COVID with a question of community-acquired pneumonia. 2patient seem to have shown overall clinical improvement consider short course of oral Ceftin on discharge along with steroids and bronchodilator therapy Dictation was produced using [employer] dictation software. please excuse any grammatical, word or spelling errors. Time with Patient: Less than 30
[2023-12-13 15:28] VITALS: BP 136/88; PULSE 88; TEMP 98.1
[2023-12-14] MEDS ORDERED: methylPREDNISolone 4 MG TAB TAPER PO SCH (09:00)
--- NOTE | 2023-12-15 16:59 | P.DS ---
Providers Date of admission: 12/10/23 18:53 Attending physician: Eva Saba Consults: 12/10/23 18:49 Consult Physician Routine Consulting Provider: Rui Norwood Consult Reason/Comments: Complicated PNA, multiple intubations Do you want consulting provider notified?: Yes Consult Physician Routine Consulting Provider: Madhu Linder Consult Reason/Comments: patient was complicated PNA Do you want consulting provider notified?: Yes Primary care physician: Joseph Granger MD Hospital Course: Final Diagnosis -Altered mental status encephalopathy no clear evidence of infection -Lactic acidosis-May be secondary to sepsis or intravascular volume depletion IV fluids will be continued -Acute hypoxic respiratory failure secondary to COPD exacerbation continue systemic steroids and additional treatments -Hypertension -Gastroesophageal reflux disease -Marijuana use: Counseling was provided -Chronic neck pain Discharge Disposition Patient will be discharged home. He is medically stable. Patient has been cleared by pulmonary services. Patient will continue on oral prednisone taper. Follow up with PCP Dr. Joseph Granger in 1 to 2 days. Has an appt with Dr. Norwood on . Hospital Course This is a 63-year-old male came in with complaints of altered mental status. Patient is found to have white count of 27,000 without any fever chest x-ray showed hazy groundglass opacities can be atypical pneumonia BNP is within normal limits. No other clinical evidence of infection, urine is not impressive for urinary tract infection. Urine drug screen is positive for marijuana and opiates. Patient was started on Zosyn, pulmonary and infectious disease was consulted patient was started on azithromycin by pulmonary because of concerns of atypical pneumonia. Patient had history of COPD was recently hospitalized for suspected bilateral pneumonia was intubated at that time subsequently discharged on Levaquin that was earlier this month. Patient mental status is at his baseline at this time patient had a procalcitonin which is within normal limits. Patient denies any alcohol or drug abuse although his drug screen is positive for marijuana as mentioned above. He was in the ICU for monitoring doing well. He is off oxygen and on room air. Has been taken off IV antibiotics. Pulmonary has cleared for discharge. He is evaluated on the medical floor he has been ambulating in the hallway without difficulty. He is not having any shortness of breath or chest pain. Please see medication reconciliation for a list of current medications. Thank you for allowing us to participate in the care of this patient. The impression and plan of care has been dictated by Loreta Hough, Nurse Practitioner as directed. Dr. Jaz MD I have performed a history and physical examination and medical decision making of this patient, discussed the same with the dictator, and agree with the dictators assessment and plan as written, documented as a scribe. Based on total visit time, I have performed more than 50% of this visit Patient Condition at Discharge: Fair Plan - Discharge Summary Discharge Rx Participant: No New Discharge Prescriptions: New methylPREDNISolone [Medrol Dose Pack] 0 mg PO DIRECTED #1 packet Continue DULoxetine HCL [Cymbalta] 60 mg PO DAILY DULoxetine HCL [Cymbalta] 30 mg PO HS HYDROcodone/APAP 7.5-325MG [[place] 7.5-325] 1 tab PO BID PRN 3 Days #6 tab PRN Reason: Pain Furosemide [Lasix] 20 mg PO DAILY 30 Days #30 tab Tamsulosin [Flomax] 0.4 mg PO DAILY Ipratropium-Albuterol Nebulize [Duoneb 0.5 mg-3 mg/3 ml Soln] 3 ml INHALATION RT-Q6H PRN PRN Reason: Shortness Of Breath Albuterol Sulfate [Albuterol Sulfate Hfa] 2 puff INHALATION RT-QID PRN PRN Reason: Shortness Of Breath Baclofen [Lioresal] 20 mg PO TID Fluticasone/Umeclidin/Vilanter [Trelegy Ellipta 100-62.5-25] 1 puff INHALATION RT-DAILY Discontinued predniSONE See Taper PO DAILY Discharge Medication List DULoxetine HCL [Cymbalta] 60 mg PO DAILY 04/15/22 [History] DULoxetine HCL [Cymbalta] 30 mg PO HS 05/10/23 [History] Tamsulosin [Flomax] 0.4 mg PO DAILY 05/10/23 [History] Albuterol Sulfate [Albuterol Sulfate Hfa] 2 puff INHALATION RT-QID PRN 10/12/23 [History] Ipratropium-Albuterol Nebulize [Duoneb 0.5 mg-3 mg/3 ml Soln] 3 ml INHALATION RT-Q6H PRN 10/12/23 [History] HYDROcodone/APAP 7.5-325MG [[place] 7.5-325] 1 tab PO BID PRN 3 Days #6 tab 06/04/24 [Rx] Baclofen [Lioresal] 20 mg PO TID 11/24/23 [History] Furosemide [Lasix] 20 mg PO DAILY 30 Days #30 tab 11/28/23 [Rx] Fluticasone/Umeclidin/Vilanter [Trelegy Ellipta 100-62.5-25] 1 puff INHALATION RT-DAILY 12/10/23 [History] methylPREDNISolone [Medrol Dose Pack] 0 mg PO DIRECTED #1 packet 12/13/23 [Rx] Follow up Appointment(s)/Referral(s): Joseph Granger MD [Primary Care Provider] - 1-2 days (office closed at time of discharge Please call to schedule) Rui Norwood DO [Doctor of Osteopathic Medicine] - 01/11/24 2:45 pm [facility] Visiting Nurse, [NON-STAFF] - 1 Week Activity/Diet/Wound Care/Special Instructions: Keep your same follow up with Dr. Christian for January. Continue medrol dose back No need for antibiotics on discharge Avoid smoking/vaping. Discharge Disposition: HOME SELF-CARE
== END 2023-12-13 15:05 | disposition home or self-care (01) | DRG 720 ==
LOC: EC 15:58 → 3SCARD 18:53 → 2SICU 12-11 03:28 → 4SSUR 12-12 18:51
PROVIDERS: ADMIT Hospitalist; ATTEND Hospitalist
DX: A41.9 Sepsis, unspecified organism (principal); J96.01 Acute respiratory failure with hypoxia; J84.89 Other specified interstitial pulmonary diseases; J44.0 Chronic obstructive pulmonary disease with (acute) lower respiratory infection; J44.1 Chronic obstructive pulmonary disease with (acute) exacerbation; F10.21 Alcohol dependence, in remission; I48.0 Paroxysmal atrial fibrillation; G92.8 Other toxic encephalopathy; E87.20 Acidosis, unspecified; J18.9 Pneumonia, unspecified organism; Z99.81 Dependence on supplemental oxygen; I10 Essential (primary) hypertension; F32.A Depression, unspecified; K21.9 Gastro-esophageal reflux disease without esophagitis; E86.1 Hypovolemia; F17.210 Nicotine dependence, cigarettes, uncomplicated; N26.1 Atrophy of kidney (terminal); J32.0 Chronic maxillary sinusitis; N20.0 Calculus of kidney; K52.9 Noninfective gastroenteritis and colitis, unspecified; F41.9 Anxiety disorder, unspecified; G89.29 Other chronic pain; R81 Glycosuria; R80.9 Proteinuria, unspecified; Z96.0 Presence of urogenital implants; M54.2 Cervicalgia; Z98.1 Arthrodesis status; Z79.51 Long term (current) use of inhaled steroids; Z79.899 Other long term (current) drug therapy; Z88.8 Allergy status to other drugs, medicaments and biological substances; Z11.52 Encounter for screening for COVID-19; Z86.19 Personal history of other infectious and parasitic diseases
CPT/HCPCS: 36415; 36600; 70450; 71045; 71260; 74177; 80048; 80053; 80143; 80179; 80306; 80320; 81001; 82140; 82550; 82552; 82803; 82805; 83605; 83735; 83880; 84145; 84443; 84484; 85025; 85610; 85730; 87040; 87449; 87636; 93005; 94640; 96365; 96366; 96367; 96368; 96372; 96375; 96376; 99291

== ENCOUNTER 2024-01-27 17:03 | Observation (INO) | payer OTHER ==
--- NOTE | 2024-01-27 17:46 | ED ---
Fall HPI - General Chief Complaint: Fall Stated Complaint: lower back pain Time Seen by Provider: 01/27/24 17:30 Source: patient Mode of arrival: ambulatory - History of Present Illness Initial Comments: 63-year-old male brought in by his for evaluation post fall. She states t hat yesterday he fell and hit his head on the coffee table, she was not there and does not know exactly how he fell. There was no loss of consciousness and he is not on any blood thinners. She states that this morning her grandson woke her up because he had fallen again. Today he has been extremely weak and confused. He has not been eating. He has been clenching his hands. She states that it has been very difficult to get his attention or to get him to answer questions. Denies any drug or alcohol use. He is a pack per day smoker. No lower extremity swelling. He does admit to shortness of breath. No chest pain. Admits to headache, unable to give me more information on where the headache is. She states that he was complaining of some lower back pain. He does not answer when I ask him if he has abdominal pain. - Related Data Home Medications Medication Instructions Recorded Confirmed DULoxetine HCL [Cymbalta] 60 mg PO DAILY 04/15/22 12/10/23 DULoxetine HCL [Cymbalta] 30 mg PO HS 05/10/23 12/10/23 Tamsulosin [Flomax] 0.4 mg PO DAILY 05/10/23 12/10/23 Albuterol Sulfate [Albuterol 2 puff INHALATION RT-QID PRN 10/12/23 12/10/23 Sulfate Hfa] Ipratropium-Albuterol Nebulize 3 ml INHALATION RT-Q6H PRN 10/12/23 12/10/23 [Duoneb 0.5 mg-3 mg/3 ml Soln] Baclofen [Lioresal] 20 mg PO TID 11/24/23 12/10/23 Fluticasone/Umeclidin/Vilanter 1 puff INHALATION RT-DAILY 12/10/23 12/10/23 [Trelegy Ellipta 100-62.5-25] Previous Rx's Medication Instructions Recorded HYDROcodone/APAP 7.5-325MG [Cabot 1 tab PO BID PRN 3 Days #6 tab 10/30/23 7.5-325] Furosemide [Lasix] 20 mg PO DAILY 30 Days #30 tab 11/28/23 methylPREDNISolone [Medrol Dose 0 mg PO DIRECTED #1 packet 12/13/23 Pack] Allergies Allergy/AdvReac Type Severity Reaction Status Date / Time sacubitril [From Entresto] Allergy hives Verified 12/10/23 18:09 trazodone Allergy Rash/Hives Verified 12/10/23 18:09 valsartan [From Entresto] Allergy hives Verified 12/10/23 18:09 Review of Systems ROS Statement: Those systems with pertinent positive or pertinent negative responses have been documented in the HPI. ROS Other: All systems not noted in ROS Statement are negative. Past Medical History Past Medical History: Atrial Fibrillation, COPD, GERD/Reflux, Hypertension, Pneumonia Additional Past Medical History / Comment(s): back pain spinal cord pinched in neck. SOB with activity History of Any Multi-Drug Resistant Organisms: None Reported Date of last positivie culture/infection: 11/25/23 MDRO Source:: Sputum Past Surgical History: Back Surgery Additional Past Surgical History / Comment(s): neck fusion,rt eye surgery, rt hand surgery, cateracts Past Anesthesia/Blood Transfusion Reactions: No Reported Reaction Past Psychological History: Depression Smoking Status: Current every day smoker Past Alcohol Use History: None Reported Past Drug Use History: Marijuana - Past Family History Mother History Unknown: Yes Family Medical History: Myocardial Infarction ([place]) Additional Family Medical History / Comment(s): from [place] General Exam Limitations: altered mental status General appearance: alert, lethargic Head exam: Present: atraumatic, normocephalic Eye exam: Present: normal appearance, PERRL, EOMI Neck exam: Present: normal inspection Respiratory exam: Present: normal lung sounds bilaterally. Absent: respiratory distress, wheezes, rales, rhonchi, stridor Cardiovascular Exam: Present: regular rate, normal rhythm, normal heart sounds. Absent: systolic murmur, diastolic murmur, rubs, gallop, clicks Extremities exam: Present: normal inspection Neurological exam: Present: alert, altered Skin exam: Present: warm, dry Course Vital Signs 01/27/24 01/27/24 01/27/24 17:14 19:57 22:17 Temperature 98.4 F Pulse Rate 83 99 89 Respiratory 20 20 18 Rate Blood Pressure 160/101 157/95 136/90 O2 Sat by Pulse 95 95 95 Oximetry 01/27/24 01/27/24 01/28/24 22:32 23:00 00:17 Temperature Pulse Rate 98 80 82 Respiratory 15 20 20 Rate Blood Pressure 129/78 148/86 150/76 O2 Sat by Pulse 98 95 98 Oximetry Medical Decision Making - Medical Decision Making Was pt. sent in by a medical professional or institution (, PA, MUSIC REHABILITATION THERAPIST, urgent care, hospital, or detention...) When possible be specific @ -No Did you speak to anyone other than the patient for history (EMS, parent, family, police, friend...)? What history was obtained from this source @ -History mostly obtained from Did you review nursing and triage notes (agree or disagree)? Why? @ -I reviewed and agree with nursing and triage notes Were old charts reviewed (outside hosp., previous admission, EMS record, old EKG, old radiological studies, urgent care reports/EKG's, detention records)? Report findings @ -No old charts were reviewed Differential Diagnosis (chest pain, altered mental status, abdominal pain women, abdominal pain men, vaginal bleeding, weakness, fever, dyspnea, syncope, headache, dizziness, GI bleed, back pain, seizure, CVA, palpatations, mental health, musculoskeletal)? @ -MDM Differential Altered Mental Status: Hypoglycemia, DKA, hypercapnia, ETOH, overdose, CO poisoning, trauma, myxedema coma, HTN encephalopathy, infection, encephalitis, psychosis, intercranial hemorrhage, hepatic encephalopathy, meningitis, CVA this is not meant to be an all-inclusive list EKG interpreted by me (3pts min.). @ -EKG shows sinus rhythm ventricular rate 88. IL interval 150. QRS 87. QT 363. QTc 408. X-rays interpreted by me (1pt min.). @ -Chest x-ray shows no acute cardiopulmonary disease/process CT interpreted by me (1pt min.). @ -CT shows no acute intracranial process. No evidence of cervical spine fracture. Moderate multilevel degenerative disc disease. Postsurgical changes of the spine appear intact. Better groundglass airspace opacities correlate for atypical pneumonia. Deformity to the nasal bone correlate with pain for acute fracture of the nasal bone U/S interpreted by me (1pt. min.). @ -None done What testing was considered but not performed or refused? (CT, X-rays, U/S, labs)? Why? @ -None What meds were considered but not given or refused? Why? @ -None Did you discuss the management of the patient with other professionals (professionals i.e. , PA, MUSIC REHABILITATION THERAPIST, lab, RT, psych nurse, social service worker, plastics heat welder, teacher, professional security officer, piano case and bench assembler)? Give summary @ -I spoke with Dr. Vela who accepts admission Was smoking cessation discussed for >3mins.? @ -No Was critical care preformed (if so, how long)? @ -No Were there social determinants of health that impacted care today? How? (Homelessness, low income, unemployed, alcoholism, drug addiction, transportation, low edu. Level, literacy, decrease access to med. care, [place] [facility], rehab)? @ -No Was there de-escalation of care discussed even if they declined (Discuss DNR or withdrawal of care, Hospice)? DNR status @ -No What co-morbidities impacted this encounter? (DM, HTN, Smoking, COPD, CAD, Cancer, CVA, ARF, Chemo, Hep., AIDS, mental health diagnosis, sleep apnea, morbid obesity)? @ -None Was patient admitted / discharged? Hospital course, mention meds given and route, prescriptions, significant lab abnormalities, going to OR and other pertinent info. @ -63-year-old male presenting with chief complaint of altered mental status and increased falls. History and physical exam were conducted. Patient is only able to answer basic questions. WBC 14.1. Glucose 124. Ammonia is WNL and troponin is negative. Negative chest x-ray. CT shows no acute intracranial process or cervical spine fracture. There are groundglass opacities concerning for pneumonia. Patient has been seen here on multiple occasions for pneumonia, unclear if this is acute or chronic. Will treat with one-time dose of azithromycin. He is for UTI with moderate leukocytes and 33 white cells. He was treated with Rocephin. blood cultures were drawn prior to antibiotics. Patient has been seen on multiple occasions due to sepsis and/or encephalopathy. His mentation has improved throughout the visit. . His urine is positive for opiates, oxycodone, benzodiazepine, marijuana. Regularly at home. When asked about positive benzodiazepines he states that he took one of his friends Xanax to help him sleep. He will be admitted for further management. He is agreeable with this plan. I discussed this case with my attending Dr. Tarango. Undiagnosed new problem with uncertain prognosis? @ -No Drug Therapy requiring intensive monitoring for toxicity (Heparin, Nitro, Insulin, Cardizem)? @ -No Were any procedures done? @ -No Diagnosis/symptom? @ -Encephalopathy, UTI, pneumonia Acute, or Chronic, or Acute on Chronic? @ -Acute Uncomplicated (without systemic symptoms) or Complicated (systemic symptoms)? @ -Complicated Side effects of treatment? @ -No Exacerbation, Progression, or Severe Exacerbation? @ -No Poses a threat to life or bodily function? How? (Chest pain, [place], [place], pneumonia, PE, COPD, DKA, ARF, appy, cholecystitis, CVA, Diverticulitis, Homicidal, Suicidal, threat to staff... and all critical care pts) @ -Yes - Lab Data Result diagrams: 01/27/24 17:58 01/27/24 17:58 Lab Results 01/27/24 01/27/24 01/27/24 Range/Units 17:58 17:58 17:58 WBC 14.1 H (3.8-10.6) k/uL RBC 5.06 (4.30-5.90) m/uL Hgb 14.1 D (13.0-17.5) gm/dL Hct 43.4 (39.0-53.0) % MCV 85.8 D (80.0-100.0) fL MCH 27.8 (25.0-35.0) pg MCHC 32.4 (31.0-37.0) g/dL RDW 14.7 (11.5-15.5) % Plt Count 284 (150-450) k/uL MPV 8.1 Neutrophils % 87 % Lymphocytes % 7 % Monocytes % 4 % Eosinophils % 1 % Basophils % 0 % Neutrophils # 12.3 H (1.3-7.7) k/uL Lymphocytes # 1.0 (1.0-4.8) k/uL Monocytes # 0.5 (0-1.0) k/uL Eosinophils # 0.1 (0-0.7) k/uL Basophils # 0.0 (0-0.2) k/uL Hypochromasia Slight PT 10.0 (10.0-12.5) sec INR 0.9 (<1.2) APTT 26.7 (22.0-30.0) sec Sodium 141 (137-145) mmol/L Potassium 4.0 (3.5-5.1) mmol/L Chloride 106 (98-107) mmol/L Carbon Dioxide 22 (22-30) mmol/L Anion Gap 13 mmol/L BUN 27 H (9-20) mg/dL Creatinine 1.06 (0.66-1.25) mg/dL Est GFR (CKD-EPI)AfAm 88 (>60 ml/min/1.73 sqM) Est GFR (CKD-EPI)NonAf 76 (>60 ml/min/1.73 sqM) Glucose 124 H (74-99) mg/dL POC Glucose (mg/dL) (70-110) mg/dL POC Glu Toll [place] Clerk ID Calcium 9.9 (8.4-10.2) mg/dL Total Bilirubin 0.6 (0.2-1.3) mg/dL AST 25 (17-59) U/L ALT 13 (4-49) U/L Alkaline Phosphatase 101 (38-126) U/L Ammonia (<30) umol/L Troponin I (0.000-0.034) ng/mL Total Protein 7.1 (6.3-8.2) g/dL Albumin 4.7 (3.5-5.0) g/dL Urine Color Urine Appearance (Clear) Urine pH (5.0-8.0) Ur Specific [place] (1.001-1.035) Urine Protein (Negative) Urine Glucose (UA) (Negative) Urine Ketones (Negative) Urine Blood (Negative) Urine Nitrite (Negative) Urine Bilirubin (Negative) Urine Urobilinogen (<2.0) mg/dL Ur Leukocyte Esterase (Negative) Urine RBC (0-5) /hpf Urine WBC (0-5) /hpf Ur Squamous Epith Cells (0-4) /hpf Urine Bacteria (None) /hpf Hyaline Casts (0-2) /lpf Urine Mucus (None) /hpf Urine Yeast (Budding) (None) /hpf Urine Opiates Screen (NotDetected) Ur Oxycodone Screen (NotDetected) Urine Methadone Screen (NotDetected) Ur Barbiturates Screen (NotDetected) U Tricyclic Antidepress (NotDetected) Ur Phencyclidine Scrn (NotDetected) Ur Amphetamines Screen (NotDetected) U Methamphetamines Scrn (NotDetected) U Benzodiazepines Scrn (NotDetected) Urine Cocaine Screen (NotDetected) U Marijuana (THC) Screen (NotDetected) Serum Alcohol <10 mg/dL 01/27/24 01/27/24 01/27/24 Range/Units 17:58 17:58 18:19 WBC (3.8-10.6) k/uL RBC (4.30-5.90) m/uL Hgb (13.0-17.5) gm/dL Hct (39.0-53.0) % MCV (80.0-100.0) fL MCH (25.0-35.0) pg MCHC (31.0-37.0) g/dL RDW (11.5-15.5) % Plt Count (150-450) k/uL MPV Neutrophils % % Lymphocytes % % Monocytes % % Eosinophils % % Basophils % % Neutrophils # (1.3-7.7) k/uL Lymphocytes # (1.0-4.8) k/uL Monocytes # (0-1.0) k/uL Eosinophils # (0-0.7) k/uL Basophils # (0-0.2) k/uL Hypochromasia PT (10.0-12.5) sec INR (<1.2) APTT (22.0-30.0) sec Sodium (137-145) mmol/L Potassium (3.5-5.1) mmol/L Chloride (98-107) mmol/L Carbon Dioxide (22-30) mmol/L Anion Gap mmol/L BUN (9-20) mg/dL Creatinine (0.66-1.25) mg/dL Est GFR (CKD-EPI)AfAm (>60 ml/min/1.73 sqM) Est GFR (CKD-EPI)NonAf (>60 ml/min/1.73 sqM) Glucose (74-99) mg/dL POC Glucose (mg/dL) 119 H (70-110) mg/dL POC Glu [place]oll [place] Clerk ID Song, Zahra Calcium (8.4-10.2) mg/dL Total Bilirubin (0.2-1.3) mg/dL AST (17-59) U/L ALT (4-49) U/L Alkaline Phosphatase (38-126) U/L Ammonia <9 (<30) umol/L Troponin I <0.012 (0.000-0.034) ng/mL Total Protein (6.3-8.2) g/dL Albumin (3.5-5.0) g/dL Urine Color Urine Appearance (Clear) Urine pH (5.0-8.0) Ur Specific [place] (1.001-1.035) Urine Protein (Negative) Urine Glucose (UA) (Negative) Urine Ketones (Negative) Urine Blood (Negative) Urine Nitrite (Negative) Urine Bilirubin (Negative) Urine Urobilinogen (<2.0) mg/dL Ur Leukocyte Esterase (Negative) Urine RBC (0-5) /hpf Urine WBC (0-5) /hpf Ur Squamous Epith Cells (0-4) /hpf Urine Bacteria (None) /hpf Hyaline Casts (0-2) /lpf Urine Mucus (None) /hpf Urine Yeast (Budding) (None) /hpf Urine Opiates Screen (NotDetected) Ur Oxycodone Screen (NotDetected) Urine Methadone Screen (NotDetected) Ur Barbiturates Screen (NotDetected) U Tricyclic Antidepress (NotDetected) Ur Phencyclidine Scrn (NotDetected) Ur Amphetamines Screen (NotDetected) U Methamphetamines Scrn (NotDetected) U Benzodiazepines Scrn (NotDetected) Urine Cocaine Screen (NotDetected) U Marijuana (THC) Screen (NotDetected) Serum Alcohol mg/dL 01/27/24 01/27/24 Range/Units 21:55 21:55 WBC (3.8-10.6) k/uL RBC (4.30-5.90) m/uL Hgb (13.0-17.5) gm/dL Hct (39.0-53.0) % MCV (80.0-100.0) fL MCH (25.0-35.0) pg MCHC (31.0-37.0) g/dL RDW (11.5-15.5) % Plt Count (150-450) k/uL MPV Neutrophils % % Lymphocytes % % Monocytes % % Eosinophils % % Basophils % % Neutrophils # (1.3-7.7) k/uL Lymphocytes # (1.0-4.8) k/uL Monocytes # (0-1.0) k/uL Eosinophils # (0-0.7) k/uL Basophils # (0-0.2) k/uL Hypochromasia PT (10.0-12.5) sec INR (<1.2) APTT (22.0-30.0) sec Sodium (137-145) mmol/L Potassium (3.5-5.1) mmol/L Chloride (98-107) mmol/L Carbon Dioxide (22-30) mmol/L Anion Gap mmol/L BUN (9-20) mg/dL Creatinine (0.66-1.25) mg/dL Est GFR (CKD-EPI)AfAm (>60 ml/min/1.73 sqM) Est GFR (CKD-EPI)NonAf (>60 ml/min/1.73 sqM) Glucose (74-99) mg/dL POC Glucose (mg/dL) (70-110) mg/dL POC Glu [place] Clerk ID Calcium (8.4-10.2) mg/dL Total Bilirubin (0.2-1.3) mg/dL AST (17-59) U/L ALT (4-49) U/L Alkaline Phosphatase (38-126) U/L Ammonia (<30) umol/L Troponin I (0.000-0.034) ng/mL Total Protein (6.3-8.2) g/dL Albumin (3.5-5.0) g/dL Urine Color Yellow Urine Appearance Clear (Clear) Urine pH 6.0 (5.0-8.0) Ur Specific [place] 1.027 (1.001-1.035) Urine Protein 1+ H (Negative) Urine Glucose (UA) Negative (Negative) Urine Ketones 1+ H (Negative) Urine Blood Negative (Negative) Urine Nitrite Negative (Negative) Urine Bilirubin Negative (Negative) Urine Urobilinogen <2.0 (<2.0) mg/dL Ur Leukocyte Esterase Moderate H (Negative) Urine RBC 4 (0-5) /hpf Urine WBC 33 H (0-5) /hpf Ur Squamous Epith Cells <1 (0-4) /hpf Urine Bacteria Rare H (None) /hpf Hyaline Casts 1 (0-2) /lpf Urine Mucus Moderate H (None) /hpf Urine Yeast (Budding) Occasional H (None) /hpf Urine Opiates Screen Detected H (NotDetected) Ur Oxycodone Screen Detected H (NotDetected) Urine Methadone Screen Not Detected (NotDetected) Ur Barbiturates Screen Not Detected (NotDetected) U Tricyclic Antidepress Not Detected (NotDetected) Ur Phencyclidine Scrn Not Detected (NotDetected) Ur Amphetamines Screen Not Detected (NotDetected) U Methamphetamines Scrn Not Detected (NotDetected) U Benzodiazepines Scrn Detected H (NotDetected) Urine Cocaine Screen Not Detected (NotDetected) U Marijuana (THC) Screen Detected H (NotDetected) Serum Alcohol mg/dL Disposition Clinical Impression: Acute encephalopathy, UTI (urinary tract infection), Pneumonia Disposition: ADMITTED IP TO THIS [facility] Condition: Fair Time of Disposition: 22:38
[2024-01-27] MEDS: SODIUM CHLORIDE 0.9% 500 ML 500 ML IV ONE (18:06)
[2024-01-27 18:11] LABS: Basophils % (A) 0 %; Eosinophils # (A) 0.1 k/uL (0-0.7); Eosinophils % (A) 1 %; HCT 43.4 % (39.0-53.0); Hypochromasia Slight; Lymphocytes % (A) 7 %; MCH 27.8 pg (25.0-35.0); MCHC 32.4 g/dL (31.0-37.0); Mean Platelet Volume 8.1; Monocytes # (A) 0.5 k/uL (0-1.0); Monocytes % (A) 4 %; Neutrophils # (A) 12.3 k/uL (1.3-7.7); Neutrophils % (A) 87 %; Platelet Count 284 k/uL (150-450); RBC 5.06 m/uL (4.30-5.90); RDW 14.7 % (11.5-15.5); WBC 14.1 k/uL (3.8-10.6)
[2024-01-27 18:17] LABS: INR 0.9 (<1.2); Partial Thromboplastin Time 26.7 sec (22.0-30.0)
[2024-01-27 18:20] LABS: Glucose,Whole Blood 119 mg/dL (70-110)
[2024-01-27 18:25] LABS: HGB 14.1 gm/dL (13.0-17.5); MCV 85.8 fL (80.0-100.0)
[2024-01-27 18:27] LABS: ALT 13 U/L (4-49); AST 25 U/L (17-59); African American GFR (CKD) 88 (>60 ml/min/1.73 sqM); Albumin 4.7 g/dL (3.5-5.0); Alcohol <10 mg/dL; Alkaline Phosphatase 101 U/L (38-126); Anion Gap 13 mmol/L; Blood Urea Nitrogen 27 mg/dL (9-20); Calcium 9.9 mg/dL (8.4-10.2); Carbon Dioxide 22 mmol/L (22-30); Chloride 106 mmol/L (98-107); Glucose 124 mg/dL (74-99); Non-African American GFR(CKD) 76 (>60 ml/min/1.73 sqM); Sodium 141 mmol/L (137-145); Total Bilirubin 0.6 mg/dL (0.2-1.3); Total Protein 7.1 g/dL (6.3-8.2)
--- NOTE | 2024-01-27 19:03 | XR ---
EXAMINATION TYPE: XR chest 2V DATE OF EXAM: 01/27/2024 6:36 PM CLINICAL INDICATION: Male, 63 years old with history of altered mental status; [facility] COMPARISON: Chest radiographs from 12/12/2023 TECHNIQUE: XR chest 2V Frontal view of the chest. FINDINGS: Lungs/Pleura: There is no evidence of pleural effusion, focal consolidation, or pneumothorax. Pulmonary vascularity: Unremarkable. Heart/mediastinum: Cardiomediastinal silhouette is unremarkable. Musculoskeletal: No acute osseous pathology. There is fixation hardware in the lower cervical spine. IMPRESSION: No acute cardiopulmonary disease/process.
--- NOTE | 2024-01-27 19:07 | CT ---
EXAMINATION TYPE: CT brain cspine wo con CT DLP: 1375.9 mGycm, Automated exposure control for dose reduction was used. DATE OF EXAM: 01/27/2024 6:38 PM COMPARISON: 12/10/2023, CT chest 04/26/2021 CLINICAL INDICATION: Male, 63 years old with history of fall, AMS; Fall, AMS TECHNIQUE: Brain: Multiple axial CT images of the brain were obtained without IV contrast. Cspine: Axial CT images from the skull base to the inferior aspect of T2 we obtained without intraven ous contrast. Coronal and sagittal reformatted images were also reviewed. . FINDINGS: Brain: Extra-axial spaces: No abnormal extra-axial fluid collections. Ventricular system: Within normal limits Cerebral parenchyma: No acute intraparenchymal hemorrhage or mass effect. The lutz-white junction is well differentiated. Cerebellum: Unremarkable. Mass effect: No evidence of midline shift. Intracranial vasculature: unremarkable Soft tissues: Normal. Calvarium/osseous structures: No depressed skull fracture. Deformity to the nasal bone suspicious for fracture. Paranasal sinuses and mastoid air cells: Right maxillary sinus mucosal thickening. Visualized orbits: Bilateral aphakia. Cervical spine: Fracture: No spinal fracture. Osseous structures: Fixation hardware in the spine at posterior aspect of C2 C4 C5-C6 and C7. Laminec ben changes are present. Hardware appears intact. Multilevel degenerative disc disease changes with endplate spurring and disc osteophyte complex's. Vertebral alignment: Straightening of the spine. Spinal canal/Neural Foramina: No evidence of significant spinal canal narrowing. No evidence for sign ificant neural foraminal stenosis. Neck soft tissues: Prevertebral soft tissues are within normal limits. Other: The airway is patent. Scattered airspace opacities which are somewhat groundglass in the lungs . Left upper lung pulmonary nodule measuring 4 mm is stable back to at least 04/26/2021. IMPRESSION: 1. No acute intracranial process 2. No evidence of cervical spine fracture. 3. Moderate multilevel degenerative disc disease. 4. Postsurgical changes of the spine appear intact. 5. Scattered groundglass airspace opacities correlate for atypical pneumonia. 6. Deformity to the nasal bone correlate with pain for acute fracture of the nasal bridge.
[2024-01-27] MEDS: KETOROLAC 15 MG/ML 1 ML VIAL IVP STA (19:40)
[2024-01-27] MEDS: HYDROcodone/APAP 7.5-325MG 1 EACH TAB PO ONE (21:27)
[2024-01-27 22:10] LABS: Appearance,Urine Clear (Clear); Bacteria,Urine Rare /hpf; Bilirubin,Urine Negative (Negative); Blood,Urine Negative (Negative); Budding Yeast,Urine Occasional /hpf; Color,Urine Yellow; Glucose,Urine (UA) Negative (Negative); Hyaline Casts,Urine 1 /lpf (0-2); Ketones,Urine 1+ (Negative); Leukocyte Esterase,Urine Moderate (Negative); Mucus,Urine Moderate /hpf; Nitrite,Urine Negative (Negative); Protein,Urine 1+ (Negative); RBC,Urine 4 /hpf (0-5); Specific Gravity,Urine 1.027 (1.001-1.035); Squamous Epithelial Cell,Urine <1 /hpf (0-4); Urobilinogen,Urine <2.0 mg/dL (<2.0); WBC,Urine 33 /hpf (0-5)
[2024-01-27 22:19] LABS: Amphetamine Screen,Urine Not Detected (NotDetected); Barbiturate Screen,Urine Not Detected (NotDetected); Benzodiazepines Screen,Urine Detected (NotDetected); Cocaine Screen,Urine Not Detected (NotDetected); Methadone Screen, Urine Not Detected (NotDetected); Opiate Screen,Urine Detected (NotDetected); Oxycodone Screen, Urine Detected (NotDetected); Phencyclidine Screen,Urine Not Detected (NotDetected); Tricyclic Antidepressant,Urine Not Detected (NotDetected); Urn Cannabinoid Scrn Detected (NotDetected)
[2024-01-27] MEDS: HYDROmorphone 0.5 MG/0.5 ML SYRINGE IVP STA (22:37)
[2024-01-27] MEDS ORDERED: NALOXONE 0.4 MG/ML 1 ML VIAL IV PRN (22:38)
[2024-01-27] MEDS ORDERED: HYDROcodone/APAP 5-325MG 1 EACH TAB PO PRN (22:38)
[2024-01-27] MEDS: SODIUM CHLORIDE 0.9% 1,000 ML IV SCH (22:56)
[2024-01-27] MEDS: cefTRIAXone IN SWFI 1,000 MG/10 ML SYRINGE IVP STA (22:56)
[2024-01-27] MEDS: AZITHROMYCIN 500 MG in SODIUM CHLORIDE 0.9% 250 ML IVPB STA (22:57)
[2024-01-28] MEDS: HYDROcodone/APAP 7.5-325MG 1 EACH TAB PO PRN (01:52)
[2024-01-28] MEDS: KETOROLAC 15 MG/ML 1 ML VIAL IVP PRN (03:16)
[2024-01-28] MEDS: ACETAMINOPHEN TAB 325 MG TAB PO PRN (03:20)
[2024-01-28 07:39] LABS: ALT 11 U/L (4-49); AST 30 U/L (17-59); African American GFR (CKD) >90 (>60 ml/min/1.73 sqM); Albumin 4.1 g/dL (3.5-5.0); Alkaline Phosphatase 88 U/L (38-126); Anion Gap 11 mmol/L; Blood Urea Nitrogen 26 mg/dL (9-20); Calcium 9.6 mg/dL (8.4-10.2); Carbon Dioxide 18 mmol/L (22-30); Chloride 112 mmol/L (98-107); Glucose 78 mg/dL (74-99); Non-African American GFR(CKD) 79 (>60 ml/min/1.73 sqM); Potassium 3.7 mmol/L (3.5-5.1); Sodium 141 mmol/L (137-145); Total Bilirubin 0.5 mg/dL (0.2-1.3); Total Protein 6.4 g/dL (6.3-8.2)
[2024-01-28] MEDS ORDERED: ALBUTEROL NEBULIZED 2.5 MG/3 ML INHALATION PRN (09:24)
[2024-01-28] MEDS ORDERED: IPRATROPIUM-ALBUTEROL 3 ML NEB INHALATION PRN (09:24)
[2024-01-28] MEDS: DULoxetine HCL 60 MG CAPSULE.DR PO SCH (10:05)
[2024-01-28] MEDS: TAMSULOSIN 0.4 MG CAP.ER.24H PO SCH (10:05)
[2024-01-28 11:05] LABS: Basophils # (A) 0.1 k/uL (0-0.2); Basophils % (A) 1 %; Eosinophils # (A) 0.1 k/uL (0-0.7); Eosinophils % (A) 1 %; HCT 38.5 % (39.0-53.0); HGB 12.5 gm/dL (13.0-17.5); Lymphocytes # (A) 1.4 k/uL (1.0-4.8); Lymphocytes % (A) 17 %; MCH 28.3 pg (25.0-35.0); MCHC 32.5 g/dL (31.0-37.0); MCV 87.3 fL (80.0-100.0); Mean Platelet Volume 8.5; Monocytes # (A) 0.5 k/uL (0-1.0); Monocytes % (A) 6 %; Neutrophils # (A) 6.3 k/uL (1.3-7.7); Neutrophils % (A) 75 %; Platelet Count 249 k/uL (150-450); RBC 4.42 m/uL (4.30-5.90); RDW 15.2 % (11.5-15.5); WBC 8.4 k/uL (3.8-10.6)
[2024-01-28] MEDS: BACLOFEN 10 MG TAB PO SCH (11:10)
[2024-01-28] MEDS: FUROSEMIDE 20 MG TAB PO SCH (11:11)
[2024-01-28] MEDS: NICOTINE 21MG/24HR PATCH TRANSDERM SCH (11:11)
[2024-01-28] MEDS: IPRATROPIUM 0.5 MG/2.5 ML NEBU INHALATION SCH (12:14)
[2024-01-28 14:28] VITALS: BP 102/64; PULSE 78; RESP 17; TEMP 98.3
--- NOTE | 2024-01-28 15:29 | P.HPIM ---
History of Present Illness H&P Date: 01/28/24 Patient is a 63-year-old male with a history of depression maintained on Celexa presented to the emergency department status post fall yesterday and this morning. He states that he was laying on the couch when he sat up and fell over, hitting his head on the table, but did not lose consciousness. He endorses that the reason he fell over is due to weakness from his back. He also endorses shortness of breath with pain and chills while in the ED. He denies taking anticoagulation. He denies loss of consciousness, syncope, headaches, lightheadedness, bleeding/bruising aside from where we hit his head and nose. CT brain and cervical spine shows no acute intracranial process or cervical spi ne fracture. XR chest shows no acute cardiopulmonary process. WBCs 14.1, CO2 18. BP 130-150s/70s90s. ED documentation reviewed. Review of systems: Pertinent positives and negatives as discussed in HPI, a complete review of systems was performed and all other systems are negative. Family history: Mothermyocardial infarction. Social history: Tobacco: 1/2 pack/day smoker Alcohol: Denies Recreational drugs: Marijuana use Travel: Denies Occupation: Doesn't work Physical examination: Vital signs reviewed General: non toxic, no distress, appears at stated age, normal weight Derm: no unusual rashes/lesions, warm Head: ecchymosis on forehead and nasal bridge Eyes: EOMI, no lid lag, anicteric sclera, pupils equal round reactive to light ENT: Nose and ears atraumatic Neck: No cervical lymphadenopathy, trachea midline, supple Mouth: no lip lesion, mucus membranes moist Cardiovascular: S1S2 present, regular rate and rhythm; no murmurs, rubs, gallops Lungs: CTA bilateral, no rhonchi, no rales, no accessory muscle use Abdominal: soft, nontender to palpation, no guarding Ext: muscle strength 5 out of 5 in all 4 extremities grossly, no gross muscle atrophy, no contractures, dorsalis pedis pulse present bilaterally, trace edema bilaterally Neuro: AOx2; CN II-XI grossly intact, no gross focal neuro deficits Psych: Alert, oriented, appropriate affect and mood, has decision making c apacity Assessment/Plan: #. Fall. Patient is currently stable. AOx2. Fall precautions. CT head ruled out acute bleed. # Encephalopathy - toxic. Suspect secondary to medications. #. Leukocytosis on admission. Initially WBCs 14.1, now 8.4. No signs of infection. No fever. #. Back pain. Obtain renal ultrasound to rule out nephrolithiasis. Patient declined. #. Acute fracture of nasal bone. #. Depression. Currently maintained on Celexa. DVT prophylaxis: SCD. Chronic conditions: COPD, A-fib, depression, hypertension, coronary artery disease The patient is admitted with an anticipated less than 2 midnight stay for evaluation of falls. CODE STATUS: Full code. Discussed with: Patient and . Anticipated discharge place: Home Attestation: I have personally seen and examined the patient with Resident, reviewed the documentation and participated and agree with the assessment and plan as written. Past Medical History Past Medical History: Atrial Fibrillation, COPD, GERD/Reflux, Hypertension, Pneumonia Additional Past Medical History / Comment(s): back pain spinal cord pinched in neck. SOB with activity History of Any Multi-Drug Resistant Organisms: None Reported Date of last positivie culture/infection: 11/25/23 MDRO Source:: Sputum Past Surgical History: Back Surgery Additional Past Surgical History / Comment(s): neck fusion,rt eye surgery, rt hand surgery, cateracts Past Anesthesia/Blood Transfusion Reactions: No Reported Reaction Past Psychological History: Depression Smoking Status: Current every day smoker Past Alcohol Use History: None Reported Past Drug Use History: Marijuana - Past Family History Mother History Unknown: Yes Family Medical History: Myocardial Infarction ([place]) Additional Family Medical History / Comment(s): from [place] Medications and Allergies Home Medications Medication Instructions Recorded Confirmed Type Tamsulosin [Flomax] 0.4 mg PO DAILY 05/10/23 01/28/24 History Albuterol Sulfate [Albuterol 2 puff INHALATION RT-QID PRN 10/12/23 01/28/24 History Sulfate Hfa] Ipratropium-Albuterol Nebulize 3 ml INHALATION RT-Q6H PRN 10/12/23 01/28/24 History [Duoneb 0.5 mg-3 mg/3 ml Soln] HYDROcodone/APAP 7.5-325MG [[place] 1 tab PO BID PRN 3 Days #6 tab 10/30/23 01/28/24 Rx 7.5-325] Baclofen [Lioresal] 20 mg PO TID 11/24/23 01/28/24 History Furosemide [Lasix] 20 mg PO DAILY 30 Days #30 tab 11/28/23 01/28/24 Rx Fluticasone/Umeclidin/Vilanter 1 puff INHALATION RT-DAILY 12/10/23 01/28/24 History [Trelegy Ellipta 100-62.5-25] Citalopram Hydrobromide [CeleXA] 40 mg PO DAILY 01/28/24 01/28/24 History Lidocaine 5% Patch [Lidoderm 5% 1 patch TOPICAL DAILY 01/28/24 01/28/24 History Patch] Metoprolol Succinate [Metoprolol 12.5 mg PO DAILY 01/28/24 01/28/24 History Succinate ER] Allergies Allergy/AdvReac Type Severity Reaction Status Date / Time sacubitril [From Entresto] Allergy hives Verified 01/28/24 11:29 trazodone Allergy Rash/Hives Verified 01/28/24 11:29 valsartan [From Entresto] Allergy hives Verified 01/28/24 11:29 Physical Exam Vitals: Vital Signs Temp Pulse Pulse Resp BP BP Pulse Ox 01/28/24 06:50 98.0 F 65 18 105/69 95 01/28/24 01:22 98.3 F 92 20 132/86 98 01/28/24 00:17 82 20 150/76 98 01/27/24 23:00 80 20 148/86 95 01/27/24 22:32 98 15 129/78 98 01/27/24 22:17 89 18 136/90 95 01/27/24 19:57 99 20 157/95 95 01/27/24 17:14 98.4 F 83 20 160/101 95 Intake and Output 01/27/24 01/28/24 01/28/24 22:59 06:59 14:59 Other: # Voids 1 Weight 72.575 kg 72.575 kg Results CBC & Chem 7: 01/28/24 10:48 01/28/24 05:10 Labs: Abnormal Lab Results - Last 24 Hours (Table) 01/27/24 01/27/24 01/27/24 Range/Units 17:58 17:58 18:19 WBC 14.1 H (3.8-10.6) k/uL Neutrophils # 12.3 H (1.3-7.7) k/uL Chloride (98-107) mmol/L Carbon Dioxide (22-30) mmol/L BUN 27 H (9-20) mg/dL Glucose 124 H (74-99) mg/dL POC Glucose (mg/dL) 119 H (70-110) mg/dL Urine Protein (Negative) Urine Ketones (Negative) Ur Leukocyte Esterase (Negative) Urine WBC (0-5) /hpf Urine Bacteria (None) /hpf Urine Mucus (None) /hpf Urine Yeast (Budding) (None) /hpf Urine Opiates Screen (NotDetected) Ur Oxycodone Screen (NotDetected) U Benzodiazepines Scrn (NotDetected) U Marijuana (THC) Screen (NotDetected) 01/27/24 01/27/24 01/28/24 Range/Units 21:55 21:55 05:10 WBC (3.8-10.6) k/uL Neutrophils # (1.3-7.7) k/uL Chloride 112 H (98-107) mmol/L Carbon Dioxide 18 L (22-30) mmol/L BUN 26 H (9-20) mg/dL Glucose (74-99) mg/dL POC Glucose (mg/dL) (70-110) mg/dL Urine Protein 1+ H (Negative) Urine Ketones 1+ H (Negative) Ur Leukocyte Esterase Moderate H (Negative) Urine WBC 33 H (0-5) /hpf Urine Bacteria Rare H (None) /hpf Urine Mucus Moderate H (None) /hpf Urine Yeast (Budding) Occasional H (None) /hpf Urine Opiates Screen Detected H (NotDetected) Ur Oxycodone Screen Detected H (NotDetected) U Benzodiazepines Scrn Detected H (NotDetected) U Marijuana (THC) Screen Detected H (NotDetected) Thrombosis Risk Factor Assmnt - Choose All That Apply Each Factor Represents 1 point: Abnormal pulmonary function (COPD), Serious lung disease incl. pneumonia (< 1month) Each Risk Factor Represents 2 Points: Age 61-74 years Thrombosis Risk Factor Assessment Total Risk Factor Score: 4 Thrombosis Risk Factor Assessment Level: Moderate Risk
--- NOTE | 2024-01-28 17:03 | P.DS ---
Providers Date of admission: 01/27/24 23:00 Attending physician: Meghana Vela MD Primary care physician: Joseph Granger MD Hospital Course: Hospital Course: Patient is a 63-year-old male with a history of depression maintained on Celexa presented to the emergency department status post fall yesterday and this morning. He states that he was laying on the couch when he sat up and fell over, hitting his head on the table, but did not lose consciousness. He e ndorses that the reason he fell over is due to weakness from his back. He also endorses shortness of breath with pain and chills while in the ED. He denies taking anticoagulation. He denies loss of consciousness, syncope, headaches, lightheadedness, bleeding/bruising aside from where we hit his head and nose. He was admitted to the floor for observation. However, patient has decided to leave AMA. Patient understands the risks/benefits of leaving AMA/staying in the hospital. Final Diagnosis: #. Fall. Physical examination: Vital signs reviewed General: non toxic, no distress, appears at stated age, normal weight Derm: no unusual rashes/lesions, warm Head: ecchymosis on forehead and nasal bridge Eyes: EOMI, no lid lag, anicteric sclera, pupils equal round reactive to light ENT: Nose and ears atraumatic Neck: No cervical lymphadenopathy, trachea midline, supple Mouth: no lip lesion, mucus membranes moist Cardiovascular: S1S2 present, regular rate and rhythm; no murmurs, rubs, gallops Lungs: CTA bilateral, no rhonchi, no rales, no accessory muscle use Abdominal: soft, nontender to palpation, no guarding Ext: muscle strength 5 out of 5 in all 4 extremities grossly, no gross muscle atrophy, no contractures, dorsalis pedis pulse present bilaterally, trace edema bilaterally Neuro: AOx3; CN II-XI grossly intact, no gross focal neuro deficits Psych: Alert, oriented, appropriate affect and mood, has decision making capacity Attestation: I have personally seen and examined the patient with Resident, reviewed the documentation and participated and agree with the assessment and plan as written. Patient was complaining of back pain, at bedside, patient was recommended to have ultrasound renal and MRI lumbar spine, patient declined any further test, patient decided to leave AMA, risks associated with leaving AMA discussed with the patient, patient verbalized understanding. Patient Condition at Discharge: Undetermined Plan - Discharge Summary Discharge Rx Participant: No New Discharge Prescriptions: Continue HYDROcodone/APAP 7.5-325MG [[place] 7.5-325] 1 tab PO BID PRN 3 Days #6 tab PRN Reason: Pain Furosemide [Lasix] 20 mg PO DAILY 30 Days #30 tab Lidocaine 5% Patch [Lidoderm 5% Patch] 1 patch TOPICAL DAILY Metoprolol Succinate [Metoprolol Succinate ER] 12.5 mg PO DAILY Tamsulosin [Flomax] 0.4 mg PO DAILY Ipratropium-Albuterol Nebulize [Duoneb 0.5 mg-3 mg/3 ml Soln] 3 ml INHALATION RT-Q6H PRN PRN Reason: Shortness Of Breath Albuterol Sulfate [Albuterol Sulfate Hfa] 2 puff INHALATION RT-QID PRN PRN Reason: Shortness Of Breath Baclofen [Lioresal] 20 mg PO TID Fluticasone/Umeclidin/Vilanter [Trelegy Ellipta 100-62.5-25] 1 puff INHALATION RT-DAILY Citalopram Hydrobromide [CeleXA] 40 mg PO DAILY Discharge Medication List Tamsulosin [Flomax] 0.4 mg PO DAILY 05/10/23 [History] Albuterol Sulfate [Albuterol Sulfate Hfa] 2 puff INHALATION RT-QID PRN 10/12/23 [History] Ipratropium-Albuterol Nebulize [Duoneb 0.5 mg-3 mg/3 ml Soln] 3 ml INHALATION RT-Q6H PRN 10/12/23 [History] HYDROcodone/APAP 7.5-325MG [[place] 7.5-325] 1 tab PO BID PRN 3 Days #6 tab 10/30/23 [Rx] Baclofen [Lioresal] 20 mg PO TID 11/24/23 [History] Furosemide [Lasix] 20 mg PO DAILY 30 Days #30 tab 11/28/23 [Rx] Fluticasone/Umeclidin/Vilanter [Trelegy Ellipta 100-62.5-25] 1 puff INHALATION RT-DAILY 12/10/23 [History] Citalopram Hydrobromide [CeleXA] 40 mg PO DAILY 01/28/24 [History] Lidocaine 5% Patch [Lidoderm 5% Patch] 1 patch TOPICAL DAILY 01/28/24 [History] Metoprolol Succinate [Metoprolol Succinate ER] 12.5 mg PO DAILY 01/28/24 [History] Follow up Appointment(s)/Referral(s): Joseph Granger MD [Primary Care Provider] - 1-2 days Discharge Disposition: LEFT AGAINST MEDICAL ADVICE
[2024-01-28] MEDS ORDERED: SYMBICORT 80-4.5 MCG INHALER INHALATION SCH (20:00)
[2024-01-28] MEDS ORDERED: DULoxetine HCL 30 MG CAPSULE.DR PO SCH (21:00)
[2024-01-29] MEDS ORDERED: METOPROLOL SUCCINATE (ER) 25 MG TAB.ER.24H PO SCH (09:00)
[2024-01-29] MEDS ORDERED: TRELEGY INHALATION SCH (09:00)
[2024-01-29] MEDS ORDERED: CITALOPRAM HYDROBROMIDE 20 MG TAB PO SCH (09:00)
== END 2024-01-28 15:47 | disposition left against medical advice (07) ==
LOC: EC 17:03 → 4SSUR 23:00 → INTOOBSV 23:00 → 4SSUR 23:23 → UNDODISIN 01-28 15:47
PROVIDERS: ADMIT Internal Medicine; ATTEND Internal Medicine
DX: S02.2XXA Fracture of nasal bones, initial encounter for closed fracture (principal); G93.40 Encephalopathy, unspecified; J18.9 Pneumonia, unspecified organism; N39.0 Urinary tract infection, site not specified; W08.XXXA Fall from other furniture, initial encounter; Z53.29 Procedure and treatment not carried out because of patient's decision for other reasons; F17.210 Nicotine dependence, cigarettes, uncomplicated; Z88.8 Allergy status to other drugs, medicaments and biological substances; Z79.899 Other long term (current) drug therapy; Z79.51 Long term (current) use of inhaled steroids; I25.10 Atherosclerotic heart disease of native coronary artery without angina pectoris; I48.91 Unspecified atrial fibrillation; Z91.81 History of falling; R29.6 Repeated falls
CPT/HCPCS: 36415; 70450; 71046; 72125; 80053; 80306; 80320; 81001; 82140; 84484; 85025; 85610; 85730; 87040; 87086; 93005; 96361; 96365; 96375; 99285

== ENCOUNTER 2024-03-10 15:14 | Inpatient (IN) | payer OTHER ==
[2024-03-10 15:27] LABS: Glucose,Whole Blood 100 mg/dL (70-110)
[2024-03-10] MEDS: LORazepam 2 MG/ML INJ IV STA ×3 (15:46→19:14)
--- NOTE | 2024-03-10 15:59 | ED ---
General Adult HPI - General Chief complaint: Altered Mental Status Stated complaint: AMS Time Seen by Provider: 03/10/24 15:18 Source: family, EMS, RN notes reviewed Mode of arrival: EMS Limitations: altered mental status, physical limitation - History of Present Illness Initial comments: Patient is a 64-year-old male presenting to the emergency department with family with concerns with change in mental status. Patient did not sleep well last night however symptoms started this morning. Patient does have history of similar symptoms multiple times previously with multiple previous medical conditions. states it is occurred at least a dozen times and daughter states has occurred even more than that. Patient does have history of episodes associated with pneumonia and kidney stone and urinary tract infection. Patient is restless and cussing. Patient appears mildly agitated. Patient is not answering questions however nursing staff adds that patient did complain of some abdominal discomfort earlier - Related Data Home Medications Medication Instructions Recorded Confirmed Baclofen [Lioresal] 20 mg PO TID 11/24/23 03/10/24 Fluticasone/Umeclidin/Vilanter 1 puff INHALATION RT-DAILY 12/10/23 03/10/24 [Trelegy Ellipta 100-62.5-25] Citalopram Hydrobromide [CeleXA] 40 mg PO DAILY 01/28/24 03/10/24 Previous Rx's Medication Instructions Recorded HYDROcodone/APAP 7.5-325MG [[place] 1 tab PO BID PRN 3 Days #6 tab 10/30/23 7.5-325] Allergies Allergy/AdvReac Type Severity Reaction Status Date / Time sacubitril [From Entresto] Allergy hives Verified 03/10/24 15:53 trazodone Allergy Rash/Hives Verified 03/10/24 15:53 valsartan [From Entresto] Allergy hives Verified 03/10/24 15:53 Review of Systems ROS Statement: Those systems with pertinent positive or pertinent negative responses have been documented in the HPI. ROS Other: All systems not noted in ROS Statement are negative. Limitations: ROS unobtainable due to patients medical condition Past Medical History Past Medical History: Atrial Fibrillation, COPD, GERD/Reflux, Hypertension, Pneumonia Additional Past Medical History / Comment(s): back pain spinal cord pinched in neck. SOB with activity History of Any Multi-Drug Resistant Organisms: None Reported Date of last positivie culture/infection: 11/25/23 MDRO Source:: Sputum Past Surgical History: Back Surgery Additional Past Surgical History / Comment(s): neck fusion,rt eye surgery, rt hand surgery, cateracts Past Anesthesia/Blood Transfusion Reactions: No Reported Reaction Past Psychological History: Depression Smoking Status: Current every day smoker Past Alcohol Use History: None Reported Past Drug Use History: Marijuana - Past Family History Mother History Unknown: Yes Family Medical History: Myocardial Infarction ([place]) Additional Family Medical History / Comment(s): from [place] General Exam Limitations: altered mental status, physical limitation General appearance: alert, other (Patient is somewhat restless in the bed and continues to cause. Patient does not follow commands) Head exam: Present: atraumatic Eye exam: Present: normal appearance, PERRL ENT exam: Present: normal oropharynx Neck exam: Present: normal inspection. Absent: tenderness, meningismus Respiratory exam: Present: normal lung sounds bilaterally Cardiovascular Exam: Present: regular rate, normal rhythm GI/Abdominal exam: Present: soft, tenderness (Appears to be mild diffuse tenderness) Extremities exam: Present: normal inspection Neurological exam: Present: alert Psychiatric exam: Present: other (Is mildly restless and agitated) Skin exam: Present: normal color Course Vital Signs 03/10/24 03/10/24 03/10/24 15:30 17:41 18:06 Temperature 98.1 F Pulse Rate 80 58 L 60 Respiratory 18 20 20 Rate Blood Pressure 141/96 84/55 101/63 O2 Sat by Pulse 96 96 100 Oximetry EKG Findings - EKG Results: EKG: interpreted by ERMD ([place]. Low QRS voltage), sinus rhythm, normal ST/T Medical Decision Making - Medical Decision Making Was pt. sent in by a medical professional or institution (, PA, TELEGRAPH EQUIPMENT MAINTAINER, urgent care, hospital, or custodial...) When possible be specific @ -No Did you speak to anyone other than the patient for history (EMS, parent, family, police, friend...)? What history was obtained from this source @ -Family present and helps provide history as patient is not compliant Did you review nursing and triage notes (agree or disagree)? Why? @ -I reviewed and agree with nursing and triage notes Were old charts reviewed (outside hosp., previous admission, EMS record, old EKG, old radiological studies, urgent care reports/EKG's, custodial records)? Report findings @ -Previous admissions reviewed Differential Diagnosis (chest pain, altered mental status, abdominal pain women, abdominal pain men, vaginal bleeding, weakness, fever, dyspnea, syncope, headache, dizziness, GI bleed, back pain, seizure, CVA, palpatations, mental health, musculoskeletal)? @ -MDM differential to mental status differential Altered Mental Status: Hypoglycemia, DKA, hypercapnia, ETOH, overdose, CO poisoning, trauma, myxedema coma, HTN encephalopathy, infection, encephalitis, psychosis, intercranial hemorrhage, hepatic encephalopathy, meningitis, CVA, this is not meant to be an all-inclusive list EKG interpreted by me (3pts min.). @ -As above X-rays interpreted by me (1pt min.). @ -Chest x-ray shows increased interstitial change CT interpreted by me (1pt min.). @ -CT scan of the brain unremarkable. CT scan abdomen pelvis does show some nonspecific fluid. There is also increased lung marking U/S interpreted by me (1pt. min.). @ -None done What testing was considered but not performed or refused? (CT, X-rays, U/S, labs)? Why? @ -None What meds were considered but not given or refused? Why? @ -None Did you discuss the management of the patient with other professionals (professionals i.e. , PA, TELEGRAPH EQUIPMENT MAINTAINER, lab, RT, psych nurse, social staff worker, making machine operator, teacher, correction officer head, business case analyst)? Give summary @ -Case discussed with practitioner Adelaida Kennedy who will admit covering with Dr. Saba, who admits for Dr. Granger Was smoking cessation discussed for >3mins.? @ -No Was critical care preformed (if so, how long)? @ -No Were there social determinants of health that impacted care today? How? (Homelessness, low income, unemployed, alcoholism, drug addiction, transportation, low edu. Level, literacy, decrease access to med. care, assisted, rehab)? @ -No Was there de-escalation of care discussed even if they declined (Discuss DNR or withdrawal of care, Hospice)? DNR status @ -No What co-morbidities impacted this encounter? (DM, HTN, Smoking, COPD, CAD, Cancer, CVA, ARF, Chemo, Hep., AIDS, mental health diagnosis, sleep apnea, morbid obesity)? @ -History of altered mental status with previous illness Was patient admitted / discharged? Hospital course, mention meds given and route, prescriptions, significant lab abnormalities, going to OR and other pertinent info. @ -Patient presents altered with family concern for infection or medical process. There is concern for pneumonia, possible urinary tract infection. Patient will be admitted with IV antibiotics. Admission order started. Consult will be placed for pulmonary and neurology Undiagnosed new problem with uncertain prognosis? @ -No Drug Therapy requiring intensive monitoring for toxicity (Heparin, Nitro, Insulin, Cardizem)? @ -No Were any procedures done? @ -No Diagnosis/symptom? @ -Altered mental status, pneumonia Acute, or Chronic, or Acute on Chronic? @ -, Acute Uncomplicated (without systemic symptoms) or Complicated (systemic symptoms)? @ -Default Side effects of treatment? @ -No Exacerbation, Progression, or Severe Exacerbation? @ -No Poses a threat to life or bodily function? How? (Chest pain, [place], [place], pneumonia, PE, COPD, DKA, ARF, appy, cholecystitis, CVA, Diverticulitis, Homicidal, Suicidal, threat to staff... and all critical care pts) @ -Threat to mental/neurological function as well as pulmonary function - Lab Data Result diagrams: 03/10/24 15:59 03/10/24 15:59 Lab Results 03/10/24 03/10/24 03/10/24 Range/Units 15:26 15:59 15:59 WBC 25.9 H (3.8-10.6) k/uL RBC 4.39 (4.30-5.90) m/uL Hgb 12.2 L (13.0-17.5) gm/dL Hct 37.4 L (39.0-53.0) % MCV 85.0 (80.0-100.0) fL MCH 27.8 (25.0-35.0) pg MCHC 32.7 (31.0-37.0) g/dL RDW 14.9 (11.5-15.5) % Plt Count 270 (150-450) k/uL MPV 9.9 Neutrophils % 88 % Lymphocytes % 4 % Monocytes % 6 % Eosinophils % 1 % Basophils % 0 % Neutrophils # 22.9 H (1.3-7.7) k/uL Lymphocytes # 1.2 (1.0-4.8) k/uL Monocytes # 1.6 H (0-1.0) k/uL Eosinophils # 0.1 (0-0.7) k/uL Basophils # 0.0 (0-0.2) k/uL PT 10.3 (10.0-12.5) sec INR 0.9 (<1.2) APTT 20.4 L (22.0-30.0) sec Sodium (137-145) mmol/L Potassium (3.5-5.1) mmol/L Chloride (98-107) mmol/L Carbon Dioxide (22-30) mmol/L Anion Gap mmol/L BUN (9-20) mg/dL Creatinine (0.66-1.25) mg/dL Est GFR (CKD-EPI)AfAm (>60 ml/min/1.73 sqM) Est GFR (CKD-EPI)NonAf (>60 ml/min/1.73 sqM) Glucose (74-99) mg/dL POC Glucose (mg/dL) 100 (70-110) mg/dL POC Glu Hull Drafter ID Manuel Thomas Calcium (8.4-10.2) mg/dL Magnesium (1.6-2.3) mg/dL Total Bilirubin (0.2-1.3) mg/dL AST (17-59) U/L ALT (4-49) U/L Alkaline Phosphatase (38-126) U/L Ammonia (<30) umol/L Troponin I (0.000-0.034) ng/mL NT-Pro-B Natriuret Pep pg/mL Total Protein (6.3-8.2) g/dL Albumin (3.5-5.0) g/dL Amylase (30-110) U/L Lipase (23-300) U/L Urine Color Urine Appearance (Clear) Urine pH (5.0-8.0) Ur Specific [place] (1.001-1.035) Urine Protein (Negative) Urine Glucose (UA) (Negative) Urine Ketones (Negative) Urine Blood (Negative) Urine Nitrite (Negative) Urine Bilirubin (Negative) Urine Urobilinogen (<2.0) mg/dL Ur Leukocyte Esterase (Negative) Urine RBC (0-5) /hpf Urine WBC (0-5) /hpf Urine WBC Clumps (None) /hpf Ur Squamous Epith Cells (0-4) /hpf Hyaline Casts (0-2) /lpf Urine Mucus (None) /hpf Urine Yeast (Budding) (None) /hpf Urine Opiates Screen (NotDetected) Ur Oxycodone Screen (NotDetected) Urine Methadone Screen (NotDetected) Ur Barbiturates Screen (NotDetected) U Tricyclic Antidepress (NotDetected) Ur Phencyclidine Scrn (NotDetected) Ur Amphetamines Screen (NotDetected) U Methamphetamines Scrn (NotDetected) U Benzodiazepines Scrn (NotDetected) Urine Cocaine Screen (NotDetected) U Marijuana (THC) Screen (NotDetected) Serum Alcohol mg/dL 03/10/24 03/10/24 03/10/24 Range/Units 15:59 15:59 15:59 WBC (3.8-10.6) k/uL RBC (4.30-5.90) m/uL Hgb (13.0-17.5) gm/dL Hct (39.0-53.0) % MCV (80.0-100.0) fL MCH (25.0-35.0) pg MCHC (31.0-37.0) g/dL RDW (11.5-15.5) % Plt Count (150-450) k/uL MPV Neutrophils % % Lymphocytes % % Monocytes % % Eosinophils % % Basophils % % Neutrophils # (1.3-7.7) k/uL Lymphocytes # (1.0-4.8) k/uL Monocytes # (0-1.0) k/uL Eosinophils # (0-0.7) k/uL Basophils # (0-0.2) k/uL PT (10.0-12.5) sec INR (<1.2) APTT (22.0-30.0) sec Sodium 141 (137-145) mmol/L Potassium 4.4 (3.5-5.1) mmol/L Chloride 108 H (98-107) mmol/L Carbon Dioxide 20 L (22-30) mmol/L Anion Gap 13 mmol/L BUN 21 H (9-20) mg/dL Creatinine 1.54 H (0.66-1.25) mg/dL Est GFR (CKD-EPI)AfAm 55 (>60 ml/min/1.73 sqM) Est GFR (CKD-EPI)NonAf 48 (>60 ml/min/1.73 sqM) Glucose 98 (74-99) mg/dL POC Glucose (mg/dL) (70-110) mg/dL POC Glu [place] Drafter ID Calcium 9.4 (8.4-10.2) mg/dL Magnesium 1.4 L (1.6-2.3) mg/dL Total Bilirubin 0.7 (0.2-1.3) mg/dL AST 21 (17-59) U/L ALT 13 (4-49) U/L Alkaline Phosphatase 88 (38-126) U/L Ammonia 25 (<30) umol/L Troponin I <0.012 (0.000-0.034) ng/mL NT-Pro-B Natriuret Pep pg/mL Total Protein 6.3 (6.3-8.2) g/dL Albumin 3.9 (3.5-5.0) g/dL Amylase 63 (30-110) U/L Lipase 64 (23-300) U/L Urine Color Urine Appearance (Clear) Urine pH (5.0-8.0) Ur Specific [place] (1.001-1.035) Urine Protein (Negative) Urine Glucose (UA) (Negative) Urine Ketones (Negative) Urine Blood (Negative) Urine Nitrite (Negative) Urine Bilirubin (Negative) Urine Urobilinogen (<2.0) mg/dL Ur Leukocyte Esterase (Negative) Urine RBC (0-5) /hpf Urine WBC (0-5) /hpf Urine WBC Clumps (None) /hpf Ur Squamous Epith Cells (0-4) /hpf Hyaline Casts (0-2) /lpf Urine Mucus (None) /hpf Urine Yeast (Budding) (None) /hpf Urine Opiates Screen (NotDetected) Ur Oxycodone Screen (NotDetected) Urine Methadone Screen (NotDetected) Ur Barbiturates Screen (NotDetected) U Tricyclic Antidepress (NotDetected) Ur Phencyclidine Scrn (NotDetected) Ur Amphetamines Screen (NotDetected) U Methamphetamines Scrn (NotDetected) U Benzodiazepines Scrn (NotDetected) Urine Cocaine Screen (NotDetected) U Marijuana (THC) Screen (NotDetected) Serum Alcohol <10 mg/dL 03/10/24 03/10/24 Range/Units 15:59 16:46 WBC (3.8-10.6) k/uL RBC (4.30-5.90) m/uL Hgb (13.0-17.5) gm/dL Hct (39.0-53.0) % MCV (80.0-100.0) fL MCH (25.0-35.0) pg MCHC (31.0-37.0) g/dL RDW (11.5-15.5) % Plt Count (150-450) k/uL MPV Neutrophils % % Lymphocytes % % Monocytes % % Eosinophils % % Basophils % % Neutrophils # (1.3-7.7) k/uL Lymphocytes # (1.0-4.8) k/uL Monocytes # (0-1.0) k/uL Eosinophils # (0-0.7) k/uL Basophils # (0-0.2) k/uL PT (10.0-12.5) sec INR (<1.2) APTT (22.0-30.0) sec Sodium (137-145) mmol/L Potassium (3.5-5.1) mmol/L Chloride (98-107) mmol/L Carbon Dioxide (22-30) mmol/L Anion Gap mmol/L BUN (9-20) mg/dL Creatinine (0.66-1.25) mg/dL Est GFR (CKD-EPI)AfAm (>60 ml/min/1.73 sqM) Est GFR (CKD-EPI)NonAf (>60 ml/min/1.73 sqM) Glucose (74-99) mg/dL POC Glucose (mg/dL) (70-110) mg/dL POC Glu [place] Drafter ID Calcium (8.4-10.2) mg/dL Magnesium (1.6-2.3) mg/dL Total Bilirubin (0.2-1.3) mg/dL AST (17-59) U/L ALT (4-49) U/L Alkaline Phosphatase (38-126) U/L Ammonia (<30) umol/L Troponin I (0.000-0.034) ng/mL NT-Pro-B Natriuret Pep 1820 pg/mL Total Protein (6.3-8.2) g/dL Albumin (3.5-5.0) g/dL Amylase (30-110) U/L Lipase (23-300) U/L Urine Color Yellow Urine Appearance Cloudy (Clear) Urine pH 6.0 (5.0-8.0) Ur Specific [place] 1.030 (1.001-1.035) Urine Protein 1+ H (Negative) Urine Glucose (UA) Negative (Negative) Urine Ketones Negative (Negative) Urine Blood Small H (Negative) Urine Nitrite Negative (Negative) Urine Bilirubin Negative (Negative) Urine Urobilinogen 2.0 (<2.0) mg/dL Ur Leukocyte Esterase Large H (Negative) Urine RBC 9 H (0-5) /hpf Urine WBC 28 H (0-5) /hpf Urine WBC Clumps Moderate H (None) /hpf Ur Squamous Epith Cells 1 (0-4) /hpf Hyaline Casts 21 H (0-2) /lpf Urine Mucus Rare H (None) /hpf Urine Yeast (Budding) Occasional H (None) /hpf Urine Opiates Screen Detected H (NotDetected) Ur Oxycodone Screen Not Detected (NotDetected) Urine Methadone Screen Not Detected (NotDetected) Ur Barbiturates Screen Not Detected (NotDetected) U Tricyclic Antidepress Detected H (NotDetected) Ur Phencyclidine Scrn Not Detected (NotDetected) Ur Amphetamines Screen Not Detected (NotDetected) U Methamphetamines Scrn Detected H (NotDetected) U Benzodiazepines Scrn Detected H (NotDetected) Urine Cocaine Screen Not Detected (NotDetected) U Marijuana (THC) Screen Detected H (NotDetected) Serum Alcohol mg/dL Disposition Clinical Impression: Altered mental status, Pneumonia Disposition: ADMITTED IP TO THIS HOSP Is patient prescribed a controlled substance at d/c from ED?: No Referrals: Joseph Granger MD [Primary Care Provider] - 1-2 days Time of Disposition: 19:04
[2024-03-10] MEDS: SODIUM CHLORIDE 0.9% 1,000 ML IV ONE (16:06)
[2024-03-10 16:26] LABS: Basophils % (A) 0 %; Eosinophils # (A) 0.1 k/uL (0-0.7); Eosinophils % (A) 1 %; HCT 37.4 % (39.0-53.0); HGB 12.2 gm/dL (13.0-17.5); Lymphocytes # (A) 1.2 k/uL (1.0-4.8); Lymphocytes % (A) 4 %; MCH 27.8 pg (25.0-35.0); MCHC 32.7 g/dL (31.0-37.0); Mean Platelet Volume 9.9; Monocytes # (A) 1.6 k/uL (0-1.0); Monocytes % (A) 6 %; Neutrophils # (A) 22.9 k/uL (1.3-7.7); Neutrophils % (A) 88 %; Platelet Count 270 k/uL (150-450); RBC 4.39 m/uL (4.30-5.90); RDW 14.9 % (11.5-15.5); WBC 25.9 k/uL (3.8-10.6)
[2024-03-10 16:28] LABS: ALT 13 U/L (4-49); AST 21 U/L (17-59); African American GFR (CKD) 55 (>60 ml/min/1.73 sqM); Albumin 3.9 g/dL (3.5-5.0); Alcohol <10 mg/dL; Alkaline Phosphatase 88 U/L (38-126); Amylase 63 U/L (30-110); Anion Gap 13 mmol/L; Blood Urea Nitrogen 21 mg/dL (9-20); Calcium 9.4 mg/dL (8.4-10.2); Carbon Dioxide 20 mmol/L (22-30); Chloride 108 mmol/L (98-107); Glucose 98 mg/dL (74-99); Lipase 64 U/L (23-300); Magnesium 1.4 mg/dL (1.6-2.3); Non-African American GFR(CKD) 48 (>60 ml/min/1.73 sqM); Potassium 4.4 mmol/L (3.5-5.1); Sodium 141 mmol/L (137-145); Total Bilirubin 0.7 mg/dL (0.2-1.3); Total Protein 6.3 g/dL (6.3-8.2)
[2024-03-10 16:46] LABS: INR 0.9 (<1.2); Prothrombin Time 10.3 sec (10.0-12.5)
[2024-03-10 16:55] LABS: Partial Thromboplastin Time 20.4 sec (22.0-30.0)
[2024-03-10 17:00] LABS: Appearance,Urine Cloudy (Clear); Bilirubin,Urine Negative (Negative); Blood,Urine Small (Negative); Budding Yeast,Urine Occasional /hpf; Color,Urine Yellow; Glucose,Urine (UA) Negative (Negative); Hyaline Casts,Urine 21 /lpf (0-2); Ketones,Urine Negative (Negative); Leukocyte Esterase,Urine Large (Negative); Mucus,Urine Rare /hpf; Nitrite,Urine Negative (Negative); Protein,Urine 1+ (Negative); RBC,Urine 9 /hpf (0-5); Squamous Epithelial Cell,Urine 1 /hpf (0-4); WBC,Urine 28 /hpf (0-5)
[2024-03-10 17:26] LABS: Amphetamine Screen,Urine Not Detected (NotDetected); Barbiturate Screen,Urine Not Detected (NotDetected); Benzodiazepines Screen,Urine Detected (NotDetected); Cocaine Screen,Urine Not Detected (NotDetected); Methadone Screen, Urine Not Detected (NotDetected); Opiate Screen,Urine Detected (NotDetected); Oxycodone Screen, Urine Not Detected (NotDetected); Phencyclidine Screen,Urine Not Detected (NotDetected); Tricyclic Antidepressant,Urine Detected (NotDetected); Urn Cannabinoid Scrn Detected (NotDetected)
--- NOTE | 2024-03-10 18:09 | XR ---
EXAMINATION TYPE: XR chest 2V DATE OF EXAM: 03/10/2024 5:26 PM CLINICAL INDICATION: Male, 64 years old with history of altered mental status; [facility] COMPARISON: Chest radiographs from 01/27/2024 TECHNIQUE: XR chest 2V Frontal view of the chest. FINDINGS: Lungs/Pleura: There is no evidence of pleural effusion, focal consolidation, or pneumothorax. Pulmonary vascularity: Pulmonary vascular congestion. Heart/mediastinum: Cardiomediastinal silhouette is enlarged. Musculoskeletal: No acute osseous pathology. There is fixation hardware in the lower cervical spine. IMPRESSION: Cardiomegaly and mild pulmonary vascular congestion. Correlate with BNP for congestive heart failure. [facility], , 03/10/2024 6:06 PM
--- NOTE | 2024-03-10 18:15 | CT ---
EXAMINATION TYPE: CT brain wo con CT DLP: 1170.4 mGycm, Automated exposure control for dose reduction was used. DATE OF EXAM: 03/10/2024 4:40 PM COMPARISON: 01/27/2024. CLINICAL INDICATION: Male, 64 years old with history of Altered mental status, ams TECHNIQUE: Brain: Axial CT images of the brain were obtained with coronal and sagittal reformats created and rev iewed. Contrast used: None. Oral contrast used: None. FINDINGS: Brain: Extra-axial spaces: No abnormal extra-axial fluid collections. Ventricular system: Dilatation in proportion to cerebral atrophy. Cerebral parenchyma: Cerebral atrophy. No acute intraparenchymal hemorrhage or mass effect. The lutz -white junction is well differentiated. Scattered hypoattenuating areas are seen within the white mat ter. Cerebellum: Unremarkable. Mass effect: No evidence of midline shift. Intracranial vasculature: Atherosclerotic calcifications of the intracranial vessels. Soft tissues: Normal. Calvarium/osseous structures: No depressed skull fracture. Paranasal sinuses and mastoid air cells: Moderate scattered paranasal sinus disease. Visualized orbits: Bilateral aphakia IMPRESSION: 1. No acute intracranial process. 2. Nonspecific white matter changes, likely secondary to chronic small vessel ischemic disease. [facility], , 03/10/2024 6:12 PM
--- NOTE | 2024-03-10 18:24 | CT ---
EXAMINATION TYPE: CT abdomen pelvis w con CT DLP: 1018.7 mGycm, Automated exposure control for dose reduction was used. DATE OF EXAM: 03/10/2024 4:40 PM COMPARISON: None. CLINICAL INDICATION:Male, 64 years old with history of abp; ams TECHNIQUE: Axial CT of the abdomen and pelvis. Sagittal and coronal reformats were created on a [employer] workstation. Contrast used:100 mL of Isovue 300 with IV Contrast, (none if empty) Oral contrast used: without Oral Contrast (none if empty) FINDINGS: LOWER CHEST: Dependent opacities in the lungs most suggestive of atelectasis. Minor interspersed grou ndglass infiltrates could be present. Heart is mildly enlarged. Prominent pericardial fat. No effusio n. ABDOMEN LIVER: Unremarkable GALLBLADDER AND BILE DUCTS: Unremarkable gallbladder. No biliary ductal dilatation. PANCREAS: Fatty infiltrated without acute finding. SPLEEN: Unremarkable. ADRENAL GLANDS: Unremarkable. KIDNEYS AND URETERS: Kidneys enhance symmetrically. Right kidney is smaller or atrophic compared to t he left. Conglomeration of calculi in the right lower pole measures 6.5 x 3.75 mm. No ureteral stones or hydronephrosis identified in either kidney. PELVIS BLADDER: Unremarkable bladder. REPRODUCTIVE: Unremarkable. ABDOMEN & PELVIS STOMACH AND BOWEL: Mildly patulous distal esophagus. Stomach is not significantly distended. Fluid-fi lled duodenal sweep delineating mild duodenal wall infolding versus wall thickening. The more distal small bowel not appear dilated significantly. Appendix not seen, there is no evidence of appendicitis . Mild stool throughout the colon without clear evidence of an acute focal abnormality. Portions of c olon are nondistended and technically mild wall thickening/mild colitis cannot be excluded. PERITONEUM/RETROPERITONEUM: No evidence of pneumoperitoneum. No significant abdominal ascites. Ther e is however some wispy intermediate attenuation within the left greater than right posterior periton eal cavity and paracolic gutters suggesting a small amount of nonspecific fluid. VASCULATURE: Mild to moderate atherosclerotic calcifications are present throughout the abdominal aor ta and its branches. No evidence of aortic aneurysm. Portal veins are enhancing. Splenic vein is pa tent. LYMPH NODES: No enlarged nodes by CT size criteria. SOFT TISSUE/ABDOMINAL WALL: Unremarkable MUSCULOSKELETAL: No acute osseous abnormalities. Moderate disc degeneration changes are present throu ghout the thoracolumbar spine. Baastrup's disease. Small fat-containing umbilical hernia. IMPRESSION: 1. No evidence of bowel obstruction or free air. 2. Some mild nonspecific fluid in the lower abdomen/upper pelvis. Could be seen with mild infectious or inflammatory process, in the absence of trauma. 3. Dependent opacities in the lungs most suggestive of atelectasis. Minor interspersed groundglass i nfiltrates could be present, correlate for infection. 4. Other chronic and likely incidental findings, as described above. [facility], , 03/10/2024 6:21 PM
[2024-03-10] MEDS ORDERED: PNEUMONIA PROTOCOL UTILIZED 1 EACH MISC PO PRN (19:05)
[2024-03-10] MEDS: AZITHROMYCIN 500 MG in SODIUM CHLORIDE 0.9% 250 ML IVPB STA (20:10)
[2024-03-10] MEDS: cefTRIAXone IN SWFI 1,000 MG/10 ML SYRINGE IVP STA (20:11)
[2024-03-10] MEDS: SODIUM CHLORIDE 0.9% 1,000 ML IV SCH (20:13)
[2024-03-10] MEDS: SYMBICORT 80-4.5 MCG INHALER INHALATION SCH (21:00)
[2024-03-11] MEDS: DEXAMETHASONE SOD PHOSPHATE 10 MG/ML 1 ML VIAL IVP SCH (00:04)
[2024-03-11] MEDS: LORazepam 2 MG/ML INJ IV PRN (00:53)
--- NOTE | 2024-03-11 01:56 | P.CNPUL ---
History of Present Illness Consult date: 03/11/24 Requesting physician: Derek Bedoya Reason for consult: pneumonia Chief complaint: Altered mental status, falls History of present illness: Patient is a 64-year-old white male with past medical history significant for COPD, as needed home O2, chronic ongoing tobacco dependence, prior ventilator de pendent respiratory failure, GERD, hypertension, atrial fibrillation, among other things. He does have frequent hospitalizations. Recently, presenting where he becomes altered and has falls. Most recently admitted back in November, for this presentation. According to the patient's he gets this way when he has an infection. He has had previous episodes of pneumonia and UTIs. On his last admission he was delirious requiring multiple doses of antipsychotics and benzodiazepines. He is currently lethargic, not following commands, unable to participate in HPI. Reportedly had multiple falls at home yesterday. According to the ER documentation, patient presented yesterday afternoon with a chief complaint of mental status changes. Reportedly has had multiple falls. He was agitated. He did have a brain CT which did not demonstrate any acute intracranial hemorrhage or mass effect. Urine toxicology screen positive for opiates, tricyclic antidepressants, methamphetamines, benzodiazepines, and marijuana. Serum alcohol less than 10. Patient also noted to be in a bit dyspneic, and was placed on supplemental oxygen which is currently at 2 L/min nasal cannula. Chest x-ray showing cardiomegaly, bilateral interstitial infiltrates. Most recent available echocardiogram done November,, and estimating a left ventricular ejection fraction of 55 to 60%. No significant valvular abnormalities noted. NT proBNP 1820. Troponins less than 0.012. EKG: Normal sinus rhythm, 69 bpm, no obvious acute ischemic changes. CBC: WBC count 25.9, hemoglobin 12.2, hematocrit 37.4, platelets 270. He was empirically covered on azithromycin and Rocephin. Viral screen positive for COVID. CMP: Sodium 141, potassium 4.4, chloride 108, serum bicarb 20, BUN 21, creatinine 1.54, glucose 98. Urinalysis positive for leukocyte Estrace. LFTs unremarkable. Ammonia 25. Normal saline infusing at 100 mL/h. Patient also had some abdominal pain in the emergency department. CT abdomen and pelvis did not show any acute bowel obstruction or free air. Some mild nonspecific fluid in the lower abdomen. Dependent opacities in the lungs mostly suggestive of atelectasis, minor groundglass opacities noted in the bases. Afebrile; respiratory rate 20 breaths/min; SpO2 96% on 2 L/min nasal cannula; blood pressure 127/74 mmHg; heart rate 86 bpm. Patient is currently being observed on the medical floor. He is lethargic but will wake up with aggressive verbal/tactile stimuli. Does not readily follow commands. He has received multiple doses of Ativan, total of 4 mg so far. He was reportedly agitated earlier. He does have some wheezing on auscultation. COPD seems to be active. Review of Systems ROS unobtainable: due to mental status Past Medical History Past Medical History: Atrial Fibrillation, COPD, GERD/Reflux, Hypertension, Pneumonia Additional Past Medical History / Comment(s): back pain spinal cord pinched in neck. SOB with activity History of Any Multi-Drug Resistant Organisms: None Reported Date of last positivie culture/infection: 11/25/23 MDRO Source:: Sputum Past Surgical History: Back Surgery Additional Past Surgical History / Comment(s): neck fusion,rt eye surgery, rt hand surgery, cateracts Past Anesthesia/Blood Transfusion Reactions: No Reported Reaction Past Psychological History: Depression Smoking Status: Current every day smoker Past Alcohol Use History: None Reported Additional Past Alcohol Use History / Comment(s): 1/2 pack a day more or less Past Drug Use History: Marijuana Additional Drug Use History / Comment(s): Pt reports occassionaly marijuanna use. - Past Family History Mother History Unknown: Yes Family Medical History: Myocardial Infarction ([place]) Additional Family Medical History / Comment(s): from [place] Medications and Allergies Home Medications Medication Instructions Recorded Confirmed Type HYDROcodone/APAP 7.5-325MG [[place] 1 tab PO BID PRN 3 Days #6 tab 10/30/23 03/10/24 Rx 7.5-325] Baclofen [Lioresal] 20 mg PO TID 11/24/23 03/10/24 History Fluticasone/Umeclidin/Vilanter 1 puff INHALATION RT-DAILY 12/10/23 03/10/24 History [Trelegy Ellipta 100-62.5-25] Citalopram Hydrobromide [CeleXA] 40 mg PO DAILY 01/28/24 03/10/24 History Allergies Allergy/AdvReac Type Severity Reaction Status Date / Time sacubitril [From [facility]] Allergy hives Verified 03/10/24 15:53 trazodone Allergy Rash/Hives Verified 03/10/24 15:53 valsartan [From [facility]] Allergy hives Verified 03/10/24 15:53 Physical Exam Vitals: Vital Signs Temp Pulse Pulse Resp BP BP Pulse Ox 03/10/24 21:09 97.3 F L 86 20 127/74 96 03/10/24 20:32 93 20 165/98 97 03/10/24 18:06 60 20 101/63 100 03/10/24 17:41 58 L 20 84/55 96 03/10/24 15:30 98.1 F 80 18 141/96 96 Intake and Output 03/10/24 03/10/24 03/11/24 14:59 22:59 06:59 Output Total 125 Balance -125 Output: Urine 125 Other: Weight 77.111 kg GENERAL EXAM: Lethargic 64-year-old male, will wake up to vigorous verbal sti mulation/tactile stimuli, then quickly falls back asleep. Does not follow commands. HEAD: Normocephalic and atraumatic EYES: Normal reaction of pupils, equal size. NOSE: Clear with pink turbinates. THROAT: No erythema or exudates. NECK: No masses, no JVD. CHEST: No chest wall deformity. LUNGS: Equal air entry with expiratory wheezes heard bilaterally and throughout. On 2 L/min nasal cannula. No conversational dyspnea or accessory muscle use. Occasional congested cough noted. CVS: S1 and S2 normal with no audible murmur, regular rhythm. No extra heart sounds ABDOMEN: No hepatosplenomegaly, active bowel sounds, no guarding or rigidity. SPINE: No scoliosis or deformity SKIN: No rashes CENTRAL NERVOUS SYSTEM: No focal deficits, tone is normal in all 4 extremities. EXTREMITIES: There is no peripheral edema, clubbing, or cyanosis. Peripheral pulses are intact. Results - Laboratory Findings CBC and BMP: 03/10/24 15:59 03/10/24 15:59 PT/INR, D-dimer PT 10.3 sec (10.0-12.5) 03/10/24 15:59 INR 0.9 (<1.2) 03/10/24 15:59 Abnormal lab findings: Abnormal Labs 03/10/24 03/10/24 03/10/24 15:59 15:59 15:59 WBC 25.9 H Hgb 12.2 L Hct 37.4 L Neutrophils # 22.9 H Monocytes # 1.6 H APTT 20.4 L Chloride 108 H Carbon Dioxide 20 L BUN 21 H Creatinine 1.54 H Magnesium 1.4 L Urine Protein Urine Blood Ur Leukocyte Esterase Urine RBC Urine WBC Urine WBC Clumps Hyaline Casts Urine Mucus Urine Yeast (Budding) Urine Opiates Screen U Tricyclic Antidepress U Methamphetamines Scrn U Benzodiazepines Scrn U Marijuana (THC) Screen SARS-CoV-2 (PCR) 03/10/24 03/10/24 16:46 19:51 WBC Hgb Hct Neutrophils # Monocytes # APTT Chloride Carbon Dioxide BUN Creatinine Magnesium Urine Protein 1+ H Urine Blood Small H Ur Leukocyte Esterase Large H Urine RBC 9 H Urine WBC 28 H Urine WBC Clumps Moderate H Hyaline Casts 21 H Urine Mucus Rare H Urine Yeast (Budding) Occasional H Urine Opiates Screen Detected H U Tricyclic Antidepress Detected H U Methamphetamines Scrn Detected H U Benzodiazepines Scrn Detected H U Marijuana (THC) Screen Detected H SARS-CoV-2 (PCR) Detected A - Diagnostic Findings Chest x-ray: image reviewed Assessment and Plan Assessment: Acute COPD exacerbation, secondary to acute COVID infection/COVID-pneumonia Acute on chronic hypoxemic respiratory failure, currently on 2 L/min nasal cannula Polysubstance abuse, urine toxicology screen positive for methamphetamines, benzodiazepines, opiates, TCAs, marijuana Altered mental status, suspect secondary acute metabolic encephalopathy and above Acute leukocytosis Acute kidney injury Chronic obstructive pulmonary disease Chronic ongoing tobacco dependence History of ventilator dependent respiratory failure History of paroxysmal atrial fibrillation History of hypertension History of GERD Plan: Patient's medications, labs, chest x-ray reviewed Currently requiring 2 L/min nasal cannula Obtain ABG, to rule out hypercapnic respiratory failure Urine toxicology screen positive for methamphetamines, benzodiazepines, opiates, TCAs, and marijuana COVID-positive by PCR Continue supportive treatment Start IV Decadron COPD appears to be active, start combination of Symbicort inhaler and bronchodilators [id number] Continue empiric antibiotics at this time Check procalcitonin level We will continue to follow, additional recommendations to follow I have personally seen and examined the patient, performed the documentation and the assessment and plan as written. Number of minutes spent on the visit:20 03/11/2024, the patient is being seen in joint evaluation along with the nurse practitioner. This evaluation was done more than 30 minutes. In summary, the patient is coming in for shortness of breath and the patient was found to be history of exacerbation he also tested positive for COVID-19. Chest x-ray however shows bilateral pulmonary filtrates, could be viral, could be bacterial especially with his underlying leukocytosis. The patient also has a urine drug screen that was positive for multiple agents including methamphetamine, benzodiazepines, opiates, tricyclic's and marijuana. The patient is currently on Decadron. He is on 2 L of oxygen by nasal cannula. Will check procalcitonin level.Will continue the Rocephin and Zithromax for now. Will continue the IV Solu-Medrol. Blood gas was noted and the patient has adequate oxygenation. Repeat chest x-ray within next 24 hours and will continue to follow. CAT scan of the abdomen and pelvis that was done showed no significant intra-abdominal abnormalities. There are some dependent atelectatic changes in the lung bases bilaterally. Time with Patient: Greater than 30
[2024-03-11 02:21] LABS: ABG Base Excess -5.8 mmol/L; ABG HCO3 18 mmol/L (21-25); ABG PCO2 31 mmHg (35-45); ABG PH 7.38 (7.35-7.45); ABG PO2 98 mmHg (83-108); ABG TCO2 19 mmol/L (19-24); Allen Test Performed? Yes
[2024-03-11] MEDS: BACLOFEN 10 MG TAB PO PRN (03:29)
[2024-03-11] MEDS: methylPREDNISolone SOD SUCCI 125 MG/2 ML VIAL IV SCH (06:01)
[2024-03-11] MEDS: HALOPERIDOL LACTATE 5 MG/ML 1 ML VIAL IM PRN (07:32)
[2024-03-11] MEDS: ALBUTEROL HFA INHALER INHALATION SCH (08:07)
[2024-03-11] MEDS: SYMBICORT 160-4.5 MCG INHALER INHALATION SCH (08:07)
--- NOTE | 2024-03-11 08:08 | XR ---
EXAMINATION TYPE: XR chest 1V portable DATE OF EXAM: 03/11/2024 7:27 AM CLINICAL INDICATION: Male, 64 years old with history of pneumonia; COMPARISON: Chest radiograph from one day prior. TECHNIQUE: XR chest 1V portable Frontal view of the chest. FINDINGS: Lungs/Pleura: There is no evidence of pleural effusion, focal consolidation, or pneumothorax. Pulmonary vascularity: Pulmonary vascular congestion. Heart/mediastinum: Cardiomediastinal silhouette is enlarged. Musculoskeletal: No acute osseous pathology. There is fixation hardware in the lower cervical spine. IMPRESSION: Similar multifocal airspace opacities correlate for pneumonia. [facility], , 03/11/2024 8:06 AM
[2024-03-11] MEDS: TIOTROPIUM 2.5 MCG INHALER INHALATION SCH (08:10)
[2024-03-11] MEDS ORDERED: DEXTROSE 50% SYRINGE 50 ML IVP PRN ×2 (09:10)
--- NOTE | 2024-03-11 09:11 | P.HPIM ---
History of Present Illness This is a pleasant 64 years old male who presents from home for altered mental status. Patient currently is poor historian and cannot provide detailed information. Patient cannot tell me his name, he is confused and disoriented to time place and person, he could not tell where he is at, he thought this 2020 without month or date. He thought it is a trump as the president. Patient could not tell why he came to the hospital. But when I ask him if he has pain he says in his back. He denies chest pain or abdominal pain. He looks contracted and abdominal muscles tense. However CT of the abdomen pelvis done in the emergency room showing no bowel obstruction. As per records patient would have altered mental status whenever he has UTI per family. On admission he is tachycardic around 101, he is saturating 95% on 2 L. No fever. Labs show a leukocytosis of 25.9, hemoglobin 12.2, creatinine 1.5 with baseline about 0.8 Urine drug screen is positive for opiates, barbiturates, methamphetamine and marijuana COVID test is positive Chest x-ray reviewed by myself showing bilateral multifocal opacities There is no EKG CT of the brain is negative for acute process CT of the abdomen and pelvis reviewed showing no small bowel obstruction or free air Review of Systems Except what is mentioned above ROS unobtainable: due to mental status Past Medical History Past Medical History: Atrial Fibrillation, COPD, GERD/Reflux, Hypertension, Pneumonia Additional Past Medical History / Comment(s): back pain spinal cord pinched in neck. SOB with activity History of Any Multi-Drug Resistant Organisms: None Reported Date of last positivie culture/infection: 11/25/23 MDRO Source:: Sputum Past Surgical History: Back Surgery Additional Past Surgical History / Comment(s): neck fusion,rt eye surgery, rt hand surgery, cateracts Past Anesthesia/Blood Transfusion Reactions: No Reported Reaction Past Psychological History: Depression Smoking Status: Current every day smoker Past Alcohol Use History: None Reported Additional Past Alcohol Use History / Comment(s): 1/2 pack a day more or less Past Drug Use History: Marijuana Additional Drug Use History / Comment(s): Pt reports occassionaly marijuanna use. - Past Family History Mother History Unknown: Yes Family Medical History: Myocardial Infarction ([place]) Additional Family Medical History / Comment(s): from [place] Medications and Allergies Home Medications Medication Instructions Recorded Confirmed Type HYDROcodone/APAP 7.5-325MG [[place] 1 tab PO BID PRN 3 Days #6 tab 10/30/23 03/10/24 Rx 7.5-325] Baclofen [Lioresal] 20 mg PO TID 11/24/23 03/10/24 History Fluticasone/Umeclidin/Vilanter 1 puff INHALATION RT-DAILY 12/10/23 03/10/24 History [Trelegy Ellipta 100-62.5-25] Citalopram Hydrobromide [CeleXA] 40 mg PO DAILY 01/28/24 03/10/24 History Allergies Allergy/AdvReac Type Severity Reaction Status Date / Time sacubitril [From [facility]] Allergy hives Verified 03/10/24 15:53 trazodone Allergy Rash/Hives Verified 03/10/24 15:53 valsartan [[facility]] Allergy hives Verified 03/10/24 15:53 Physical Exam Vitals: Vital Signs Temp Pulse Pulse Resp BP BP Pulse Ox 03/11/24 08:12 97 03/11/24 00:11 97.9 F 101 H 19 142/92 98 03/10/24 21:09 97.3 F L 86 20 127/74 96 03/10/24 20:32 93 20 165/98 97 03/10/24 18:06 60 20 101/63 100 03/10/24 17:41 58 L 20 84/55 96 03/10/24 15:30 98.1 F 80 18 141/96 96 Intake and Output 03/10/24 03/11/24 03/11/24 22:59 06:59 14:59 Output Total 600 Balance -600 Output: Urine 600 Other: Voiding Method External Catheter Weight 77.111 kg -GENERAL: The patient is awake, follows simple commands sometimes, he is con fused. In mild respiratory distress due to tachypnea Well developed, well nourished. HEENT: Pupils are round and equally reacting to light. EOMI. No scleral icterus. No conjunctival pallor. Normocephalic, atraumatic. No pharyngeal erythema. No thyromegaly. CARDIOVASCULAR: S1 and S2 present. No murmurs, rubs, or gallops. -PULMONARY: Chest is clear to auscultation, bilateral expiratory wheezing with prolonged expiration , no crackles. ABDOMEN: Soft, nontender, nondistended, normoactive bowel sounds. No palpable organomegaly. MUSCULOSKELETAL: No joint swelling or deformity. EXTREMITIES: No cyanosis, clubbing, or pedal edema. -NEUROLOGICAL: G cranial nerves are grossly intact, motor is symmetrical. Examination is limited by patient condition SKIN: No rashes. no petechiae. Results CBC & Chem 7: 03/10/24 15:59 03/10/24 15:59 Labs: Abnormal Lab Results - Last 24 Hours (Table) 03/10/24 03/10/24 03/10/24 Range/Units 15:59 15:59 15:59 WBC 25.9 H (3.8-10.6) k/uL Hgb 12.2 L (13.0-17.5) gm/dL Hct 37.4 L (39.0-53.0) % Neutrophils # 22.9 H (1.3-7.7) k/uL Monocytes # 1.6 H (0-1.0) k/uL APTT 20.4 L (22.0-30.0) sec ABG pCO2 (35-45) mmHg ABG HCO3 (21-25) mmol/L ABG O2 Saturation (94-97) % Hemoglobin (13.0-17.5) gm/dL Chloride 108 H (98-107) mmol/L Carbon Dioxide 20 L (22-30) mmol/L BUN 21 H (9-20) mg/dL Creatinine 1.54 H (0.66-1.25) mg/dL Magnesium 1.4 L (1.6-2.3) mg/dL Urine Protein (Negative) Urine Blood (Negative) Ur Leukocyte Esterase (Negative) Urine RBC (0-5) /hpf Urine WBC (0-5) /hpf Urine WBC Clumps (None) /hpf Hyaline Casts (0-2) /lpf Urine Mucus (None) /hpf Urine Yeast (Budding) (None) /hpf Urine Opiates Screen (NotDetected) U Tricyclic Antidepress (NotDetected) U Methamphetamines Scrn (NotDetected) U Benzodiazepines Scrn (NotDetected) U Marijuana (THC) Screen (NotDetected) SARS-CoV-2 (PCR) (Not Detectd) 03/10/24 03/10/24 03/11/24 Range/Units 16:46 19:51 02:17 WBC (3.8-10.6) k/uL Hgb (13.0-17.5) gm/dL Hct (39.0-53.0) % Neutrophils # (1.3-7.7) k/uL Monocytes # (0-1.0) k/uL APTT (22.0-30.0) sec ABG pCO2 31 L (35-45) mmHg ABG HCO3 18 L (21-25) mmol/L ABG O2 Saturation 98.0 H (94-97) % Hemoglobin 11.9 L (13.0-17.5) gm/dL Chloride (98-107) mmol/L Carbon Dioxide (22-30) mmol/L BUN (9-20) mg/dL Creatinine (0.66-1.25) mg/dL Magnesium (1.6-2.3) mg/dL Urine Protein 1+ H (Negative) Urine Blood Small H (Negative) Ur Leukocyte Esterase Large H (Negative) Urine RBC 9 H (0-5) /hpf Urine WBC 28 H (0-5) /hpf Urine WBC Clumps Moderate H (None) /hpf Hyaline Casts 21 H (0-2) /lpf Urine Mucus Rare H (None) /hpf Urine Yeast (Budding) Occasional H (None) /hpf Urine Opiates Screen Detected H (NotDetected) U Tricyclic Antidepress Detected H (NotDetected) U Methamphetamines Scrn Detected H (NotDetected) U Benzodiazepines Scrn Detected H (NotDetected) U Marijuana (THC) Screen Detected H (NotDetected) SARS-CoV-2 (PCR) Detected A (Not Detectd) Thrombosis Risk Factor Assmnt - Choose All That Apply Each Risk Factor Represents 2 Points: Age 61-74 years Thrombosis Risk Factor Assessment Total Risk Factor Score: 2 Thrombosis Risk Factor Assessment Level: Low Risk Assessment and Plan Assessment: Bilateral patchy pneumonia, could be related to COVID. Versus bacterial infection COVID infection with possible pneumonia Acute COPD exacerbation Acute hypoxic respiratory failure Urine analysis is abnormal suspicious for UTI Severe metabolic/toxic encephalopathy versus other Acute kidney injury Substance abuse with urine drug screen is positive for opiates, barbiturates, methamphetamine and marijuana Plan: Continue with antibiotic, currently on Zithromax and ceftriaxone Follow-up blood culture Check a bladder scan Continue with IV fluid Continue with IV steroids, currently on IV Solu-Medrol Follow-up WBC and creatinine Pulmonary neurology consult Labs and medication were reviewed.. Continue same treatment. Continue with symptomatic treatment. Resume home medication. Monitor labs and vitals. DVT and GI prophylaxis. Further recommendations as per clinical course of the patient DVT prophylaxis: Subcutaneous heparin GI Prophylaxis: Pepcid PT/OT: Pending Prognosis is guarded
[2024-03-11] MEDS: ENOXAPARIN 30 MG/0.3 ML SYRINGE SQ STA (09:23)
[2024-03-11] MEDS: CITALOPRAM HYDROBROMIDE 20 MG TAB PO SCH (09:31)
[2024-03-11 12:44] LABS: Glucose,Whole Blood 107 mg/dL (70-110)
[2024-03-11] MEDS: INSULIN ASPART (NovoLOG) 100 UNIT/ML VIAL SQ SCH (12:58)
[2024-03-11 15:44] LABS: C Reactive Protein 10.6 mg/dL (0.00-0.80)
--- NOTE | 2024-03-11 16:43 | P.CNNES ---
History of Present Illness Consult date: 03/11/24 Requesting physician: Derek Bedoya Reason for Consult: Altered mental status History of Present Illness: Patient is a 64-year-old male came well-known to me from previous admissions, came to the hospital by ambulance yesterday at 3:14 PM for altered mental status. Patient not able to provide any history. Patient is very encephalopathic. As per EMS flowsheet when they arrived, patient was sitting on the couch, alert and orient x 2 complaining of 10/10 back pain. Patient normally is alert and orient x 4. Patient was cooperative but would not give much history. He would not hold still and kept rocking forward and backwards. Family has noticed that he is not acting right. Family mentioned that last time he acted like this he had a UTI. Patient mentioned that his back pain has been going on for years. Blood glucose was 100 mg/dL. Patient's vitals at the scene was blood pressure 132/76, pulse rate 70 respirations 16. Blood test shows WBC 25.9, hemoglobin 12.2, normal platelets. PT PTT normal, UA shows large amount of leukocyte Estrace, 9 RBC, 28 WBC. Electrolytes are normal, BUN 21 creatinine 1.54. Urine drug screen positive for opiates, tricyclic, benzodiazepine, methamphetamine and marijuana. Blood alcohol level negative. SARS-CoV-2 detected. ABG with pH of 7.38, pCO2 31, pO2 98. Ammonia is normal 25, troponin negative. Hepatic panel normal. Troponin negative. Patient admits to having headache "little bit". The sitter was present, who mentions that this morning patient was worse. After he received Haldol, he was able to relax. He fell 3 times last night. He would keep on getting up and trying to move. Patient has been seen by myself on 01/19/2020 for altered mental status likely due to metabolic encephalopathy. At that time patient has presented with bilateral pneumonia with subsequent gaseous mismatch, chronic pain with chronic opiate use. Patient was also seen on 04/23/2022 for intermittent right orbital temporal headache which was felt to be related to acute maxillary sinusitis. Also seen by myself on 01/14/2023 for altered mental status which was felt to be due to polypharmacy. Review of Systems Others as per HPI. ROS unobtainable: due to mental status Past Medical History Past Medical History: Atrial Fibrillation, COPD, GERD/Reflux, Hypertension, Pneumonia Additional Past Medical History / Comment(s): back pain spinal cord pinched in neck. SOB with activity History of Any Multi-Drug Resistant Organisms: None Reported Date of last positivie culture/infection: 11/25/23 MDRO Source:: Sputum Past Surgical History: Back Surgery Additional Past Surgical History / Comment(s): neck fusion,rt eye surgery, rt hand surgery, cateracts Past Anesthesia/Blood Transfusion Reactions: No Reported Reaction Past Psychological History: Depression Smoking Status: Current every day smoker Past Alcohol Use History: None Reported Additional Past Alcohol Use History / Comment(s): 1/2 pack a day more or less Past Drug Use History: Marijuana Additional Drug Use History / Comment(s): Pt reports occassionaly marijuanna use. - Past Family History Mother History Unknown: Yes Family Medical History: Myocardial Infarction (CO) Additional Family Medical History / Comment(s): from [place] Medications and Allergies Home Medications Medication Instructions Recorded Confirmed Type HYDROcodone/APAP 7.5-325MG [Ostrander 1 tab PO BID PRN 3 Days #6 tab 10/30/23 03/10/24 Rx 7.5-325] Baclofen [Lioresal] 20 mg PO TID 11/24/23 03/10/24 History Fluticasone/Umeclidin/Vilanter 1 puff INHALATION RT-DAILY 12/10/23 03/10/24 History [Trelegy Ellipta 100-62.5-25] Citalopram Hydrobromide [CeleXA] 40 mg PO DAILY 01/28/24 03/10/24 History Allergies Allergy/AdvReac Type Severity Reaction Status Date / Time sacubitril [From Entresto] Allergy hives Verified 03/10/24 15:53 trazodone Allergy Rash/Hives Verified 03/10/24 15:53 valsartan [From Entresto] Allergy hives Verified 03/10/24 15:53 Physical Examination - Vital Signs Vital Signs: Vital Signs Temp Pulse Pulse Resp BP BP Pulse Ox 03/11/24 08:12 97 03/11/24 07:55 98.2 F 99 18 116/68 97 03/11/24 00:11 97.9 F 101 H 19 142/92 98 03/10/24 21:09 97.3 F L 86 20 127/74 96 03/10/24 20:32 93 20 165/98 97 03/10/24 18:06 60 20 101/63 100 03/10/24 17:41 58 L 20 84/55 96 03/10/24 15:30 98.1 F 80 18 141/96 96 Intake and Output 03/10/24 03/11/24 03/11/24 22:59 06:59 14:59 Output Total 600 Balance -600 Output: Urine 600 Other: Voiding Method External Catheter Weight 77.111 kg Patient is a late middle aged male, appears to be in mild respiratory distress. Patient appears somewhat disheveled. Patient is very encephalopathic. He is groggy, having some myoclonic twitching of his face. He states the year is 2002 and the month is "2 3". On repeatedly asked questions, patient started seeing words like "konstantin nunez, Pastora.." Limited speech appears clear with no aphasia or dysarthria. No obvious paraphasic error. Attention, concentration and fund of knowledge are all very limited. On cranial nerve examination, pupils are equal, round and reacting to light, visual interiano cannot be tested. Extraocular muscles are intact with no nystagmus. Face is symmetric, tongue protrudes to the midline. Lower cranial nerves cannot be tested because of noncooperation. On muscle strength testing, there is no pronator drift and the strength is normal in arms and legs distally and proximally. Patient has flexion contracture of bilateral little and ring fingers. Deep tendon reflexes are very brisk, about 3 all over and plantars are upgoing bilaterally. Patient has sustained clonus on the right, but nonsustained clonus on the left. Sensory to touch is equal. Cerebellar function showed very mild terminal ataxia for [id number] testing bilaterally. No ataxia for fewp-og-geae testing on either side. Tone is increased mildly bilaterally and bulk of muscles normal. Gait deferred.. On general examination, there is no carotid bruit or murmur, S1-S2 audible. Chest has expiratory wheezes heard bilaterally and throughout. Abdomen is soft nontender. No organomegaly, bowel sounds present. Peripheral pulses are present. No edema. Patient has a bruise on the left thigh. Results - Laboratory Findings CBC and BMP: 03/10/24 15:59 10/14/24 15:59 Abnormal Lab Findings: Abnormal Labs 03/10/24 03/10/24 03/10/24 15:59 15:59 15:59 WBC 25.9 H Hgb 12.2 L Hct 37.4 L Neutrophils # 22.9 H Monocytes # 1.6 H APTT 20.4 L ABG pCO2 ABG HCO3 ABG O2 Saturation Hemoglobin Chloride 108 H Carbon Dioxide 20 L BUN 21 H Creatinine 1.54 H Magnesium 1.4 L Urine Protein Urine Blood Ur Leukocyte Esterase Urine RBC Urine WBC Urine WBC Clumps Hyaline Casts Urine Mucus Urine Yeast (Budding) Urine Opiates Screen U Tricyclic Antidepress U Methamphetamines Scrn U Benzodiazepines Scrn U Marijuana (THC) Screen SARS-CoV-2 (PCR) 03/10/24 03/10/24 03/11/24 16:46 19:51 02:17 WBC Hgb Hct Neutrophils # Monocytes # APTT ABG pCO2 31 L ABG HCO3 18 L ABG O2 Saturation 98.0 H Hemoglobin 11.9 L Chloride Carbon Dioxide BUN Creatinine Magnesium Urine Protein 1+ H Urine Blood Small H Ur Leukocyte Esterase Large H Urine RBC 9 H Urine WBC 28 H Urine WBC Clumps Moderate H Hyaline Casts 21 H Urine Mucus Rare H Urine Yeast (Budding) Occasional H Urine Opiates Screen Detected H U Tricyclic Antidepress Detected H U Methamphetamines Scrn Detected H U Benzodiazepines Scrn Detected H U Marijuana (THC) Screen Detected H SARS-CoV-2 (PCR) Detected A Assessment and Plan Assessment: * Altered mental status, likely due to mild metabolic encephalopathy. Reasons multifactorial as mentioned below * Acute COPD exacerbation, secondary to acute COVID infection/COVID-pneumonia * Abnormal UA, rule out UTI. * Polysubstance abuse, urine toxicology screen positive for methamphetamines, benzodiazepine, opiate, TCA and marijuana * Acute kidney injury * History of paroxysmal atrial fibrillation * Hypertension * History of cervical spine surgery for probable spinal stenosis with myelopathy 13 years ago * COPD * Tobacco use Plan: * EEG evaluate for encephalopathy, rule out epileptiform activity. * Carotid Doppler, rule out stenosis * Medical management as per IM, and pulmonary medicine. * Patient currently on azithromycin 500 mg IV daily and ceftriaxone 2 g every 24 hours. * Also on methylprednisolone 60 mg IV every 6 hours * Check B12, folate. TSH is normal 0.762 * DVT prophylaxis: Lovenox 40 mg subcu daily * Neurology will follow. Thank you for the consult.
[2024-03-11 17:06] LABS: Glucose,Whole Blood 117 mg/dL (70-110)
[2024-03-11] MEDS: AZITHROMYCIN 500 MG TAB PO SCH (17:20)
--- NOTE | 2024-03-11 18:03 | US ---
EXAMINATION TYPE: US carotid duplex BILAT DATE OF EXAM: 03/11/2024 COMPARISON: NONE CLINICAL INDICATION: Male, 64 years old with history of Altered mental status; AMS. TECHNIQUE: Grayscale, color Doppler and spectral Doppler evaluation of the bilateral carotid systems and vertebral arteries.Indirect Doppler criteria was utilized. FINDINGS: EXAM MEASUREMENTS: RIGHT: Peak Systolic Velocity (PSV) cm/sec ----- Right CCA: 74.2 ----- Right ICA: 66.4 ----- Right ECA: 96.4 ICA/CCA ratio: 0.9 RIGHT: End Diastole cm/sec ----- Right CCA: 0.0 ----- Right ICA: 18.1 ----- Right ECA: 15.5 LEFT: Peak Systolic Velocity (PSV) cm/sec ----- Left CCA: 104.2 ----- Left ICA: 97.7 ----- Left ECA: 143.6 ICA/CCA ratio: 0.9 LEFT: End Diastole cm/sec ----- Left CCA: 12.9 ----- Left ICA: 20.7 ----- Left ECA: 19.2 VERTEBRALS (direction of flow): Right Vertebral: Antegrade Left Vertebral: Antegrade Rhythm: Normal ROAD MANAGER NOTES: Extremely limited exam due to patient sleeping, snoring, and unable to follow dire ctions. Unable to visualize distal ICA due to above reason. IMPRESSION: Right: Less than 50% stenosis of the carotid bifurcation. Normal (no stenosis)=ICA PSV < 125 cm/s: ra jossie < 2.0: ICA EDV<40 cm/s. Left: Less than 50% stenosis of the carotid bifurcation. Normal (no stenosis)=ICA PSV < 125 cm/s: rat io < 2.0: ICA EDV<40 cm/s. Irregular rhythm and spectral waveform suggested correlate with EKG. [facility], , 03/11/2024 6:00 PM
[2024-03-11] MEDS: FAMOTIDINE 20 MG/2 ML VIAL IV SCH (20:20)
[2024-03-11 21:58] LABS: Glucose,Whole Blood 121 mg/dL (70-110)
[2024-03-12] MEDS: HYDROcodone/APAP 7.5-325MG 1 EACH TAB PO PRN ×2 (01:51→10:45)
[2024-03-12 06:42] LABS: Glucose,Whole Blood 193 mg/dL (70-110)
[2024-03-12] MEDS: ENOXAPARIN 40 MG/0.4 ML SYRINGE SQ SCH (10:14)
[2024-03-12] MEDS: TRELEGY ELLIPTA INHALER INHALATION SCH (10:29)
--- NOTE | 2024-03-12 11:29 | CDI ---
Documentation Clarification Form Date: 03/12/2024 10:43:08 AM From: Ade Galloway RN CCDS Phone: [phone] Admit Date: 03/10/2024 07:07:00 PM Patient Name: Fausto Willis Visit Number: [id number] Discharge Date: ATTENTION: The Clinical Documentation Specialists (CDI) and [facility] Coding Staff appreciate your assistance in clarifying documentation. Please respond to the clarification below the line at the bottom and electronically sign. The CDI & [facility] Coding staff will review the response and follow-up if needed. Please note: Queries are made part of the Legal Health Record. If you have any questions, please contact the author of this message via ITS. Doctor: Young E Sheet Bilateral patchy pneumonia, could be related to COVID. Versus bacterial infection. is documented 03/11, HP. Additional clarification regarding the type of pneumonia is requested. History/Risk Factors: 64 year old male presents to the ED for altered mental status: Medical history: Atrial Fib, COPD, GERD, HTN and Pneumonia. HP 03/11 Clinical Indicators: VSS, 03/10: B/P 141/96; HR 80; Temp 98.1F Oral; RR 18; SpO2 96% ra BMI 24.4kg WBC/Left shift, 03/10: Wbc 25.9; Neutrophils 22.9 SARS-CoV-2 (PCR), 03/10: Detected A CXR, 03/10: Cardiomegaly and mild pulmonary vascular congestion. Lung/Breathing assessment, 03/11 HP: Chest is clear to auscultation, bilateral expiratory wheezing with prolonged expiration, no crackles. Treatment: 03/11 Solumedrol IV Q6HR; Antibiotics: 03/10 Rocephin IVP x 1; 03/10 Ceftriaxone IVPB x 1; 03/10 Azithromycin IVPB x 1; 03/11 Azithromycin IVPB Daily x 2 doses; 03/11 Ceftriaxone IVPB Q24H x 4 bags. O2: 2L nc Breathing Tx: 03/11 Ventolin Inhalation QID RAGHU; Symbicort Inhalation BID RAGHU; 03/12 Trelegy Ellipta Inhaler Daily; 03/11 Spiriva Respimat Inhalation Daily RAGHU. Please clarify the type of pneumonia, if known: [ ] Bacterial Pneumonia, specify causal organism (if known) [ ] COVID Pneumonia [ ] Other bacteria (please specify) [ ] Other, please specify [ ] Unable to determine (Template Last Revised: July 2020) COVID-pneumonia, bacterial pneumonia felt less likely although not entirely excluded MTDD
[2024-03-12 11:42] LABS: Glucose,Whole Blood 128 mg/dL (70-110)
[2024-03-12 12:21] LABS: Basophils % (A) 0 %; Eosinophils # (A) 0.1 k/uL (0-0.7); Eosinophils % (A) 1 %; HCT 35.2 % (39.0-53.0); HGB 11.2 gm/dL (13.0-17.5); Hypochromasia Slight; Lymphocytes # (A) 0.4 k/uL (1.0-4.8); Lymphocytes % (A) 2 %; MCH 27.6 pg (25.0-35.0); MCHC 31.8 g/dL (31.0-37.0); MCV 86.9 fL (80.0-100.0); Mean Platelet Volume 8.7; Monocytes # (A) 0.8 k/uL (0-1.0); Monocytes % (A) 4 %; Neutrophils # (A) 19.6 k/uL (1.3-7.7); Neutrophils % (A) 93 %; Platelet Count 258 k/uL (150-450); RBC 4.05 m/uL (4.30-5.90); RDW 14.9 % (11.5-15.5)
[2024-03-12] MEDS: ACETAMINOPHEN TAB 325 MG TAB PO PRN (14:52)
[2024-03-12 15:09] LABS: African American GFR (CKD) >90 (>60 ml/min/1.73 sqM); Anion Gap 7 mmol/L; Blood Urea Nitrogen 23 mg/dL (9-20); Calcium 8.8 mg/dL (8.4-10.2); Carbon Dioxide 17 mmol/L (22-30); Chloride 115 mmol/L (98-107); Glucose 145 mg/dL (74-99); Non-African American GFR(CKD) >90 (>60 ml/min/1.73 sqM); Potassium 3.9 mmol/L (3.5-5.1); Sodium 139 mmol/L (137-145)
[2024-03-12 16:34] LABS: Glucose,Whole Blood 152 mg/dL (70-110)
--- NOTE | 2024-03-12 18:13 | P.PN ---
Subjective Progress Note Date: 03/12/24 Patient is a 64-year-old white male with past medical history significant for COPD, as needed home O2, chronic ongoing tobacco dependence, prior ventilator dependent respiratory failure, GERD, hypertension, atrial fibrillation, among other things. He does have frequent hospitalizations. Recently, presenting where he becomes altered and has falls. Most recently admitted back in November, for this presentation. According to the patient's he gets this way when he has an infection. He has had previous episodes of pneumonia and UTIs. On his last admission he was delirious requiring multiple doses of antipsychotics and benzodiazepines. He is currently lethargic, not following commands, unable to participate in HPI. Reportedly had multiple falls at home yesterday. According to the ER documentation, patient presented yesterday afternoon with a chief complaint of mental status changes. Reportedly has had multiple falls. He was agitated. He did have a brain CT which did not demonstrate any acute intracranial hemorrhage or mass effect. Urine toxicology screen positive for opiates, tricyclic antidepressants, methamphetamines, benzodiazepines, and marijuana. Serum alcohol less than 10. Patient also noted to be in a bit dyspneic, and was placed on supplemental oxygen which is cur rently at 2 L/min nasal cannula. Chest x-ray showing cardiomegaly, bilateral interstitial infiltrates. Most recent available echocardiogram done November,, and estimating a left ventricular ejection fraction of 55 to 60%. No significant valvular abnormalities noted. NT proBNP 1820. Troponins less than 0.012. EKG: Normal sinus rhythm, 69 bpm, no obvious acute ischemic changes. CBC: WBC count 25.9, hemoglobin 12.2, hematocrit 37.4, platelets 270. He was empirically covered on azithromycin and Rocephin. Viral screen positive for COVID. CMP: Sodium 141, potassium 4.4, chloride 108, serum bicarb 20, BUN 21, creatinine 1.54, glucose 98. Urinalysis positive for leukocyte Estrace. LFTs unremarkable. Ammonia 25. Normal saline infusing at 100 mL/h. Patient also had some abdominal pain in the emergency department. CT abdomen and pelvis did not show any acute bowel obstruction or free air. Some mild nonspecific fluid in the lower abdomen. Dependent opacities in the lungs mostly suggestive of atelectasis, minor groundglass opacities noted in the bases. Afebrile; respiratory rate 20 breaths/min; SpO2 96% on 2 L/min nasal cannula; blood pressure 127/74 mmHg; heart rate 86 bpm. Patient is currently being observed on the medical floor. He is lethargic but will wake up with aggressive verbal/tactile stimuli. Does not readily follow commands. He has received multiple doses of Ativan, total of 4 mg so far. He was reportedly agitated earlier. He does have some wheezing on auscultation. COPD seems to be active. 03/12/2024 the patient is being seen for a follow-up. The patient is i stable and denies having any new complaints. He has been infected with COVID-19 at the patient is obviously in a denial and he thinks that he is negative. Noted several family members are also positive for COVID-19. He is currently on 1.5 L of oxygen by nasal cannula pulse ox 93%. He remains on albuterol HFA, and IV Solu-Medrol 60 mg every 6 hours. He is also utilizing Trelegy Ellipta from home 1 puff every 24 hours. Labs were noted. White cell count was elevated at 21 with a hemoglobin of 11.2 and there is improvement in his white cell count. BUN is 23 with a creatinine of 0.9 and sodium levels at 139 and a bicarb is at 17. LDH was 289 and CRP was at 10.6 and a procalcitonin level is at 1.13. Patient is covered empirically with IV antibiotics. Blood cultures are still pending for now. He remains on IV Rocephin. No altered mentation. Objective - Vital Signs Vital signs: Vital Signs Temp 98.8 F 03/12/24 07:40 Pulse 92 03/12/24 07:40 Resp 18 03/12/24 07:40 BP 140/73 03/12/24 07:40 Pulse Ox 94 L 03/12/24 07:40 FiO2 Intake & Output 03/11/24 03/12/24 03/12/24 18:59 06:59 18:59 Intake Total 240 Balance 240 Intake: Oral 240 Other: Voiding Method Urinal Urinal # Voids 1 3 1 # Bowel Movements 1 - Exam GENERAL EXAM: Lethargic 64-year-old male, awake and alert and comfortable, curre ntly on 1.5 L of O2 nasal cannula HEAD: Normocephalic and atraumatic EYES: Normal reaction of pupils, equal size. NOSE: Clear with pink turbinates. THROAT: No erythema or exudates. NECK: No masses, no JVD. CHEST: No chest wall deformity. LUNGS: Equal air entry with expiratory wheezes heard bilaterally and throughout. No conversational dyspnea or accessory muscle use. Occasional congested cough noted. CVS: S1 and S2 normal with no audible murmur, regular rhythm. No extra heart sounds ABDOMEN: No hepatosplenomegaly, active bowel sounds, no guarding or rigidity. SPINE: No scoliosis or deformity SKIN: No rashes CENTRAL NERVOUS SYSTEM: No focal deficits, tone is normal in all 4 extremities. EXTREMITIES: There is no peripheral edema, clubbing, or cyanosis. Peripheral pulses are intact. - Labs CBC & Chem 7: 03/12/24 12:04 03/12/24 14:42 Labs: Abnormal Lab Results - Last 24 Hours (Table) 03/11/24 03/11/24 03/11/24 Range/Units 08:46 08:46 17:05 WBC (3.8-10.6) k/uL RBC (4.30-5.90) m/uL Hgb (13.0-17.5) gm/dL Hct (39.0-53.0) % Neutrophils # (1.3-7.7) k/uL Lymphocytes # (1.0-4.8) k/uL POC Glucose (mg/dL) 117 H (70-110) mg/dL Lactate Dehydrogenase 289 H (120-246) U/L C-Reactive Protein 10.60 H (0.00-0.80) mg/dL Procalcitonin 1.13 H (0.02-0.50) ng/mL 03/11/24 03/12/24 03/12/24 Range/Units 21:57 06:41 11:40 WBC (3.8-10.6) k/uL RBC (4.30-5.90) m/uL Hgb (13.0-17.5) gm/dL Hct (39.0-53.0) % Neutrophils # (1.3-7.7) k/uL Lymphocytes # (1.0-4.8) k/uL POC Glucose (mg/dL) 121 H 193 H 128 H (70-110) mg/dL Lactate Dehydrogenase (120-246) U/L C-Reactive Protein (0.00-0.80) mg/dL Procalcitonin (0.02-0.50) ng/mL 03/12/24 Range/Units 12:04 WBC 21.0 H (3.8-10.6) k/uL RBC 4.05 L (4.30-5.90) m/uL Hgb 11.2 L (13.0-17.5) gm/dL Hct 35.2 L (39.0-53.0) % Neutrophils # 19.6 H (1.3-7.7) k/uL Lymphocytes # 0.4 L (1.0-4.8) k/uL POC Glucose (mg/dL) (70-110) mg/dL Lactate Dehydrogenase (120-246) U/L C-Reactive Protein (0.00-0.80) mg/dL Procalcitonin (0.02-0.50) ng/mL Microbiology - Last 24 Hours (Table) 03/10/24 19:32 Blood Culture - Preliminary Blood Assessment and Plan Assessment: Acute COPD exacerbation, secondary to acute COVID infection/COVID-pneumonia Acute on chronic hypoxemic respiratory failure, currently on 1.5 L O2 nasal cannula Bilateral pulmonary filtrates, could be related to COVID-19. Procalcitonin level is mild elevated probably due to renal failure. Noted the patient acute kidney injury is improving. Inflammatory markers are elevated including LDH and CRP. The patient is on IV Solu-Medrol, empirically covered with IV Rocephin Polysubstance abuse, urine toxicology screen positive for methamphetamines, benzodiazepines, opiates, TCAs, marijuana Altered mental status, suspect secondary acute metabolic encephalopathy and above Acute leukocytosis Acute kidney injury, improved and the creatinine is normalized Chronic obstructive pulmonary disease Chronic ongoing tobacco dependence History of ventilator dependent respiratory failure History of paroxysmal atrial fibrillation History of hypertension History of GERD Plan: Currently requiring 1.5 L/min nasal cannula Urine toxicology screen positive for methamphetamines, benzodiazepines, opiates, TCAs, and marijuana COVID-positive by PCR Continue supportive treatment Start IV Decadron In terms of his COPD, we will continue on the Symbicort inhaler and bronchodilators [id number] Continue empiric antibiotics at this time, the patient is currently on IV Rocephin Nonspecific elevation of the procalcitonin, probably due to his underlying acute kidney injury CAT scan of the abdomen was negative Mental status is adequate Will follow
[2024-03-12 20:49] LABS: Glucose,Whole Blood 177 mg/dL (70-110)
[2024-03-12] MEDS: FAMOTIDINE 20 MG TAB PO SCH (21:33)
[2024-03-12] MEDS: FUROSEMIDE 10 MG/ML 4 ML VIAL IV STA (21:56)
--- NOTE | 2024-03-12 22:04 | XR ---
EXAMINATION TYPE: XR chest 1V portable DATE OF EXAM: 03/12/2024 9:39 PM CLINICAL INDICATION: Male, 64 years old with history of low oxygen saturation; COMPARISON: Chest radiographs from 03/11/2024 TECHNIQUE: XR chest 1V portable Frontal view of the chest. FINDINGS: Lungs/Pleura: Multifocal airspace opacities. No evidence of pneumothorax or pleural effusion. Pulmonary vascularity: Unremarkable. Heart/mediastinum: Cardiomediastinal silhouette is unremarkable. Musculoskeletal: No acute osseous pathology. There is fixation hardware in the lower cervical spine. IMPRESSION: Multifocal airspace opacities concerning for pneumonia. [facility], , 03/12/2024 10:02 PM
--- NOTE | 2024-03-12 23:17 | P.PN ---
Subjective This is a pleasant 64 years old male who presents from home for altered mental status. Patient currently is poor historian and cannot provide detailed information. Patient cannot tell me his name, he is confused and disoriented to time place and person, he could not tell where he is at, he thought this 2019 without month or date. He thought it is a trump as the president. Patient could not tell why he came to the hospital. But when I ask him if he has pain he says in his back. He denies chest pain or abdominal pain. He looks contracted and abdominal muscles tense. However CT of the abdomen pelvis done in the emergency room showing no bowel obstruction. As per records patient would have altered mental status whenever he has UTI per family. On admission he is tachycardic around 101, he is saturating 95% on 2 L. No fever. Labs show a leukocytosis of 25.9, hemoglobin 12.2, creatinine 1.5 with baseline about 0.8 Urine drug screen is positive for opiates, barbiturates, methamphetamine and marijuana COVID test is positive Chest x-ray reviewed by myself showing bilateral multifocal opacities There is no EKG CT of the brain is negative for acute process CT of the abdomen and pelvis reviewed showing no small bowel obstruction or free air 03/12 Patient breathing quietly however he still significantly hypoxic requiring heart rate of oxygen 6 L and during the evening went up to 10 L He is mildly confused he knows he is in [facility]. He thought his 2022 and he could not tell the president Chest x-ray showing bilateral multifocal infiltrate COVID test is positive as well as increased LDH and CRP Patient pro- Calcitonin is also elevated at 1.31 indicating possible bacterial superinfection and currently covered with Rocephin Also receiving steroids with IV Solu-Medrol and gentle hydration Kidney function improved. Leukocytosis trending down to 21,000. Review of systems CONSTITUTIONAL: No fever, no malaise, no fatigue. HEENT: No recent visual problems or hearing problems. Denied any sore throat. NEUROLOGICAL: No headaches, no weakness, no numbness. HEMATOLOGICAL: Denies any bleeding or petechiae. GENITOURINARY: Denies any burning micturition, frequency, or urgency. MUSCULOSKELETAL/RHEUMATOLOGICAL: Denies any joint pain, swelling, or any muscle pain. ENDOCRINE: Denies any polyuria or polydipsia. Active Medications Generic Name Dose Route Start Last Admin Trade Name Freq PRN Reason Stop Dose Admin Acetaminophen 650 mg 03/10/24 23:52 03/12/24 22:42 Acetaminophen Tab 325 Mg Tab PO 650 mg Q6HR PRN Administration Fever and/ or Pain Hydrocodone Bitart/Acetaminophen 1 each 03/12/24 10:36 03/12/24 21:32 Hydrocodone/Apap 7.5-325mg 1 Each Tab PO 1 each TID PRN Administration Pain Albuterol Sulfate 2 puff 03/11/24 08:00 03/12/24 20:51 Albuterol Hfa Inhaler INHALATION Not Given RT-QID RAGHU Baclofen 20 mg 03/10/24 19:07 03/12/24 21:34 Baclofen 10 Mg Tab PO 20 mg TID PRN Administration Pain Citalopram Hydrobromide 40 mg 03/11/24 09:00 03/12/24 10:14 Citalopram Hydrobromide 20 Mg Tab PO 40 mg DAILY RAGHU Administration Dextrose/Water 25 ml 03/11/24 09:10 Dextrose 50% Syringe 50 Ml IVP PER PROTOCOL PRN Hypoglycemia Protocol Dextrose/Water 50 ml 03/11/24 09:10 Dextrose 50% Syringe 50 Ml IVP PER PROTOCOL PRN Hypoglycemia Protocol Enoxaparin Sodium 40 mg 03/12/24 09:00 03/12/24 10:14 Enoxaparin 40 Mg/0.4 Ml Syringe SQ 40 mg DAILY RAGHU Administration Famotidine 20 mg 03/12/24 21:00 03/12/24 21:33 Famotidine 20 Mg Tab PO 20 mg BID RAGHU Administration Haloperidol Lactate 3 mg 03/11/24 07:23 03/11/24 07:32 Haloperidol Lactate 5 Mg/Ml 1 Ml Vial IM 3 mg Q6HR PRN Administration Agitation or Acute Psychosis Sodium Chloride 1,000 mls @ 100 mls/hr 03/10/24 19:15 03/12/24 06:45 Saline 0.9% IV 100 mls/hr .Q10H RAGHU Administration Ceftriaxone Sodium 2 gm/ 50 mls @ 100 mls/hr 03/11/24 09:00 03/12/24 10:15 Sodium Chloride IVPB 03/14/24 09:29 100 mls/hr Q24HR RAGHU Administration Protocol Insulin Aspart 0 unit 03/11/24 12:30 03/12/24 21:34 Insulin Aspart (Novolog) 100 Unit/Ml Vial SQ 1 unit ACHS RAGHU Administration Protocol Lorazepam 1 mg 03/10/24 19:51 03/11/24 14:31 Lorazepam 2 Mg/Ml Inj IV 1 mg Q4HR PRN Administration Anxiety Methylprednisolone Sodium Succinate 60 mg 03/11/24 06:00 03/12/24 17:05 Methylprednisolone Sod Succi 125 Mg/2 Ml Vial IV 60 mg Q6HR RAGHU Administration Miscellaneous Information 1 each 03/10/24 19:05 Pneumonia Protocol Utilized 1 Each Misc PO ONCE PRN Per Protocol Trelegy Ellipta 1 each 03/12/24 10:00 03/12/24 10:29 Inhaler INHALATION Not Given RT-DAILY RAGHU Objective - Vital Signs Vital signs: Vital Signs Temp 98.3 F 03/12/24 13:15 Pulse 92 03/12/24 13:15 Resp 18 03/12/24 13:15 BP 170/80 03/12/24 13:15 Pulse Ox 93 L 03/12/24 13:15 FiO2 Intake & Output 03/12/24 03/12/24 03/13/24 06:59 18:59 06:59 Intake Total 720 Balance 720 Intake: Oral 720 Other: Voiding Method Urinal # Voids 3 3 # Bowel Movements 1 - Exam -GENERAL: The patient is alert and oriented x1-2, not in any acute distress. Well developed, well nourished. HEENT: Pupils are round and equally reacting to light. EOMI. No scleral icterus. No conjunctival pallor. Normocephalic, atraumatic. No pharyngeal erythema. No thyromegaly. CARDIOVASCULAR: S1 and S2 present. No murmurs, rubs, or gallops. -PULMONARY: Chest is clear to auscultation, no wheezing , bilateral crepitation, patient mildly tachypneic ABDOMEN: Soft, nontender, nondistended, normoactive bowel sounds. No palpable organomegaly. MUSCULOSKELETAL: No joint swelling or deformity. EXTREMITIES: No cyanosis, clubbing, or pedal edema. NEUROLOGICAL: Gross neurological examination did not reveal any focal deficits. SKIN: No rashes. no petechiae. - Labs CBC & Chem 7: 03/12/24 12:04 03/12/24 14:42 Labs: Abnormal Lab Results - Last 24 Hours (Table) 03/11/24 03/12/24 03/12/24 Range/Units 21:57 06:41 11:40 WBC (3.8-10.6) k/uL RBC (4.30-5.90) m/uL Hgb (13.0-17.5) gm/dL Hct (39.0-53.0) % Neutrophils # (1.3-7.7) k/uL Lymphocytes # (1.0-4.8) k/uL Chloride (98-107) mmol/L Carbon Dioxide (22-30) mmol/L BUN (9-20) mg/dL Glucose (74-99) mg/dL POC Glucose (mg/dL) 121 H 193 H 128 H (70-110) mg/dL 03/12/24 03/12/24 03/12/24 Range/Units 12:04 14:42 16:33 WBC 21.0 H (3.8-10.6) k/uL RBC 4.05 L (4.30-5.90) m/uL Hgb 11.2 L (13.0-17.5) gm/dL Hct 35.2 L (39.0-53.0) % Neutrophils # 19.6 H (1.3-7.7) k/uL Lymphocytes # 0.4 L (1.0-4.8) k/uL Chloride 115 H (98-107) mmol/L Carbon Dioxide 17 L (22-30) mmol/L BUN 23 H (9-20) mg/dL Glucose 145 H (74-99) mg/dL POC Glucose (mg/dL) 152 H (70-110) mg/dL Microbiology - Last 24 Hours (Table) 03/10/24 19:32 Blood Culture - Preliminary Blood Assessment and Plan Assessment: Bilateral patchy pneumonia, could be related to COVID. bacterial infection felt less likely Acute COPD exacerbation Acute hypoxic respiratory failure Urine analysis is abnormal suspicious for UTI however patient is asymptomatic Severe metabolic/toxic encephalopathy versus other Acute kidney injury "resolved Substance abuse with urine drug screen is positive for opiates, barbiturates, methamphetamine and marijuana Plan: Continue with antibiotic, currently on Zithromax and ceftriaxone Follow-up blood culture Continue with IV fluid Continue with IV steroids, currently on IV Solu-Medrol Follow-up WBC and creatinine Pulmonary neurology consult Labs and medication were reviewed.. Continue same treatment. Continue with s ymptomatic treatment. Resume home medication. Monitor labs and vitals. DVT and GI prophylaxis. Further recommendations as per clinical course of the patient DVT prophylaxis: Subcutaneous heparin GI Prophylaxis: Pepcid PT/OT: Pending Prognosis is guarded
[2024-03-13 06:36] LABS: Glucose,Whole Blood 176 mg/dL (70-110)
[2024-03-13 08:33] LABS: Basophils # (A) 0.02 X 10*3/uL (0.00-0.10); Basophils % (A) 0.1 %; Eosinophils # (A) 0 X 10*3/uL (0.04-0.35); Eosinophils % (A) 0 %; HCT 37.2 % (39.6-50.0); HGB 11.8 g/dL (13.0-17.0); Lymphocytes # (A) 0.33 X 10*3/uL (0.90-5.00); Lymphocytes % (A) 1.7 %; MCH 27.4 pg (27.0-32.0); MCHC 31.7 g/dL (32.0-37.0); MCV 86.3 FL (80.0-97.0); Monocytes # (A) 0.63 X 10*3/uL (0.20-1.00); Monocytes % (A) 3.2 %; NRBC Per 100 WBC 0 X 10*3/uL (0.00-0.01); Neutrophils # (A) 18.49 X 10*3/uL (1.80-7.70); Neutrophils % (A) 94.1 %; Platelet Count 222 X 10*3/uL (140-440); RBC 4.31 X 10*6/uL (4.40-5.60); RDW 15.3 % (11.5-14.5); WBC 19.64 X 10*3/uL (4.50-10.00)
[2024-03-13] MEDS: ENOXAPARIN 40 MG/0.4 ML SYRINGE SQ SCH (08:46)
--- NOTE | 2024-03-13 08:49 | XR ---
EXAMINATION TYPE: XR chest 1V DATE OF EXAM: 03/13/2024 COMPARISON: 03/12/2024 HISTORY: Cough TECHNIQUE: Single frontal view of the chest is obtained. FINDINGS: Diffuse bilateral infiltrates stable. No sizable pleural effusion or pneumothorax. Heart m ildly enlarged. Arthropathy of the shoulders and degenerative changes of the spine. Postsurgical contreras ge overlying cervical spine. IMPRESSION: Diffuse bilateral infiltrates correlate for pneumonia or ARDS. [facility], , 03/13/2024 8:47 AM
[2024-03-13 09:02] LABS: BUN/Creat Ratio 23.12 Ratio (12.00-20.00); Blood Urea Nitrogen 18.5 mg/dL (9.0-27.0); Calcium 8.3 mg/dL (8.7-10.3); Carbon Dioxide 19.2 mmol/L (21.6-31.8); Chloride 107 mmol/L (96-109); Glucose 163 mg/dL (70-110); Potassium 3.3 mmol/L (3.5-5.5); Sodium 141 mmol/L (135-145)
--- NOTE | 2024-03-13 12:08 | P.PN ---
Subjective Progress Note Date: 03/12/24 Patient was seen for a follow-up. Patient is sitting on the side of the bed. Patient is very much alert and awake. His mentation has remarkably improved. Objective - Vital Signs Vital signs: Vital Signs Temp 98.3 F 03/12/24 13:15 Pulse 92 03/12/24 13:15 Resp 18 03/12/24 13:15 BP 170/80 03/12/24 13:15 Pulse Ox 93 L 03/12/24 13:15 FiO2 Intake & Output 03/12/24 03/12/24 03/13/24 06:59 18:59 06:59 Intake Total 720 Balance 720 Intake: Oral 720 Other: Voiding Method Urinal # Voids 3 3 # Bowel Movements 1 - Exam Patient is alert and awake, fully oriented. He knows it is February and the year is and that he is in [facility] in [facility]. He knows that he lives in [facility]. His examination is nonfocal. - Labs CBC & Chem 7: 03/13/24 03:20 03/13/24 03:20 Labs: Abnormal Lab Results - Last 24 Hours (Table) 03/11/24 03/12/24 03/12/24 Range/Units 21:57 06:41 11:40 WBC (3.8-10.6) k/uL RBC (4.30-5.90) m/uL Hgb (13.0-17.5) gm/dL Hct (39.0-53.0) % Neutrophils # (1.3-7.7) k/uL Lymphocytes # (1.0-4.8) k/uL Chloride (98-107) mmol/L Carbon Dioxide (22-30) mmol/L BUN (9-20) mg/dL Glucose (74-99) mg/dL POC Glucose (mg/dL) 121 H 193 H 128 H (70-110) mg/dL 03/12/24 03/12/24 03/12/24 Range/Units 12:04 14:42 16:33 WBC 21.0 H (3.8-10.6) k/uL RBC 4.05 L (4.30-5.90) m/uL Hgb 11.2 L (13.0-17.5) gm/dL Hct 35.2 L (39.0-53.0) % Neutrophils # 19.6 H (1.3-7.7) k/uL Lymphocytes # 0.4 L (1.0-4.8) k/uL Chloride 115 H (98-107) mmol/L Carbon Dioxide 17 L (22-30) mmol/L BUN 23 H (9-20) mg/dL Glucose 145 H (74-99) mg/dL POC Glucose (mg/dL) 152 H (70-110) mg/dL Microbiology - Last 24 Hours (Table) 03/10/24 19:32 Blood Culture - Preliminary Blood Assessment and Plan Assessment: * Altered mental status, likely due to mild metabolic encephalopathy. Reasons multifactorial as mentioned below * Acute COPD exacerbation, secondary to acute COVID infection/COVID-pneumonia * Abnormal UA, rule out UTI. * Polysubstance abuse, urine toxicology screen positive for methamphetamines, benzodiazepine, opiate, TCA and marijuana * Acute kidney injury * History of paroxysmal atrial fibrillation * Hypertension * History of cervical spine surgery for probable spinal stenosis with myelopathy 13 years ago * COPD * Tobacco use Plan: * EEG was ordered, but patient declined. I again asked the patient now, but he again declined. May have it done as an outpatient. * Carotid Doppler, revealed less than 50% stenosis of carotid bifurcations. Antegrade flow in both vertebral arteries. * Medical management as per IM, and pulmonary medicine. * Patient currently on azithromycin 500 mg IV daily and ceftriaxone 2 g every 24 hours. * Also on methylprednisolone 60 mg IV every 6 hours * B12 389, folate 6.20, hemoglobin A1c 6.0. TSH is normal 0.762. We will start B12, folate. * DVT prophylaxis: Lovenox 40 mg subcu daily * Neurologically clear otherwise.
[2024-03-13] MEDS: REMDESIVIR 200 MG in SODIUM CHLORIDE 0.9% 250 ML IVPB ONE (12:42)
--- NOTE | 2024-03-13 13:06 | P.PN ---
Subjective This is a pleasant 64 years old male who presents from home for altered mental status. Patient currently is poor historian and cannot provide detailed information. Patient cannot tell me his name, he is confused and disoriented to time place and person, he could not tell where he is at, he thought this 2020 without month or date. He thought it is a trump as the president. Patient could not tell why he came to the hospital. But when I ask him if he has pain he says in his back. He denies chest pain or abdominal pain. He looks contracted and abdominal muscles tense. However CT of the abdomen pelvis done in the emergency room showing no bowel obstruction. As per records patient would have altered mental status whenever he has UTI per family. On admission he is tachycardic around 101, he is saturating 95% on 2 L. No fever. Labs show a leukocytosis of 25.9, hemoglobin 12.2, creatinine 1.5 with baseline about 0.8 Urine drug screen is positive for opiates, barbiturates, methamphetamine and marijuana COVID test is positive Chest x-ray reviewed by myself showing bilateral multifocal opacities There is no EKG CT of the brain is negative for acute process CT of the abdomen and pelvis reviewed showing no small bowel obstruction or free air 03/12 Patient breathing quietly however he still significantly hypoxic requiring heart rate of oxygen 6 L and during the evening went up to 10 L He is mildly confused he knows he is in [facility]. He thought his 2022 and he could not tell the president Chest x-ray showing bilateral multifocal infiltrate COVID test is positive as well as increased LDH and CRP Patient pro- Calcitonin is also elevated at 1.31 indicating possible bacterial superinfection and currently covered with Rocephin Also receiving steroids with IV Solu-Medrol and gentle hydration Kidney function improved. Leukocytosis trending down to 21,000. 03/13 Patient oxygen requirements increased significantly overnight up to 15 L/min, later on he required high-dose nasal cannula at 55 L/min Repeat chest x-ray shows worsening bilateral infiltrate, I reviewed the chest x- ray by myself and agree with it Patient has mildly increased D-dimer from 0.25 up to 1.0 in 2 days. He is on Lovenox 40 mg daily we will going to increase it to twice daily. Also CTA of the chest is ordered Staff and I discussed with the patient in details, we discussed CODE STATUS with him after explaining risk and benefits, he states that he does not want any intubation as he had bad experience with it previously that he is adamant for no intubation and also he declines resuscitation like chest compression electric shock or other measures. Patient adamant he wants to be DNR. He understands risk and benefits are explained to him in details. He understands that if no intubation and worsening hypoxia he went to go to hospice/comfort care and he is agreeable to that. Based on my evaluation patient has capacity make medical decision he is fully awake and oriented to time place person, he has insight. Patient actually sitting at the bedside and despite his higher oxygen requirement he looks mild to moderately tachypneic while at rest. He can talk freely with no difficulties. He denies chest pain, no other complaint. Patient was transferred to select unit for higher level of care. Patient states that we can talk to his about his health issue if needed Review of systems CONSTITUTIONAL: No fever, no malaise, no fatigue. HEENT: No recent visual problems or hearing problems. Denied any sore throat. HEMATOLOGICAL: Denies any bleeding or petechiae. GENITOURINARY: Denies any burning micturition, frequency, or urgency. MUSCULOSKELETAL/RHEUMATOLOGICAL: Denies any joint pain, swelling, or any muscle pain. ENDOCRINE: Denies any polyuria or polydipsia. Active Medications Generic Name Dose Route Start Last Admin Trade Name Freq PRN Reason Stop Dose Admin Acetaminophen 650 mg 03/10/24 23:52 03/13/24 12:27 Acetaminophen Tab 325 Mg Tab PO 650 mg Q6HR PRN Administration Fever and/ or Pain Hydrocodone Bitart/Acetaminophen 1 each 03/12/24 10:36 03/13/24 09:49 Hydrocodone/Apap 7.5-325mg 1 Each Tab PO 1 each TID PRN Administration Pain Albuterol Sulfate 2 puff 03/11/24 08:00 03/13/24 11:38 Albuterol Hfa Inhaler INHALATION Not Given RT-QID RAGHU Baclofen 20 mg 03/10/24 19:07 03/13/24 09:49 Baclofen 10 Mg Tab PO 20 mg TID PRN Administration Pain Citalopram Hydrobromide 40 mg 03/11/24 09:00 03/13/24 08:45 Citalopram Hydrobromide 20 Mg Tab PO 40 mg DAILY RAGHU Administration Cyanocobalamin 1,000 mcg 03/14/24 09:00 Cyanocobalamin 500 Mcg Tab PO DAILY RAGHU Dextrose/Water 25 ml 03/11/24 09:10 Dextrose 50% Syringe 50 Ml IVP PER PROTOCOL PRN Hypoglycemia Protocol Dextrose/Water 50 ml 03/11/24 09:10 Dextrose 50% Syringe 50 Ml IVP PER PROTOCOL PRN Hypoglycemia Protocol Enoxaparin Sodium 40 mg 03/13/24 09:00 03/13/24 08:46 Enoxaparin 40 Mg/0.4 Ml Syringe SQ 40 mg BID RAGHU Administration Famotidine 20 mg 03/12/24 21:00 03/13/24 08:45 Famotidine 20 Mg Tab PO 20 mg BID RAGHU Administration Folic Acid 1 mg 03/13/24 12:15 Folic Acid 1 Mg Tab PO DAILY RAGHU Haloperidol Lactate 3 mg 03/11/24 07:23 03/11/24 07:32 Haloperidol Lactate 5 Mg/Ml 1 Ml Vial IM 3 mg Q6HR PRN Administration Agitation or Acute Psychosis Sodium Chloride 1,000 mls @ 100 mls/hr 03/10/24 19:15 03/13/24 12:42 Saline 0.9% IV 100 mls/hr .Q10H RAGHU Administration Ceftriaxone Sodium 2 gm/ 50 mls @ 100 mls/hr 03/11/24 09:00 03/13/24 08:46 Sodium Chloride IVPB 03/14/24 09:29 100 mls/hr Q24HR RAGHU Administration Protocol Remdesivir 100 mg/ Sodium 250 mls @ 250 mls/hr 03/14/24 09:00 Chloride IVPB 03/17/24 09:59 DAILY RAGHU Insulin Aspart 0 unit 03/11/24 12:30 03/13/24 07:44 Insulin Aspart (Novolog) 100 Unit/Ml Vial SQ 1 unit ACHS RAGHU Administration Protocol Lorazepam 1 mg 03/10/24 19:51 03/11/24 14:31 Lorazepam 2 Mg/Ml Inj IV 1 mg Q4HR PRN Administration Anxiety Methylprednisolone Sodium Succinate 60 mg 03/11/24 06:00 03/13/24 12:27 Methylprednisolone Sod Succi 125 Mg/2 Ml Vial IV 60 mg Q6HR RAGHU Administration Miscellaneous Information 1 each 03/10/24 19:05 Pneumonia Protocol Utilized 1 Each Misc PO ONCE PRN Per Protocol Anniagy Ellipta 1 each 03/12/24 10:00 03/13/24 08:37 Inhaler INHALATION 1 each RT-DAILY RAGHU Administration Sodium Chloride 2 spray 03/13/24 11:24 Sodium Chloride 0.65% Nasal [place] 44 Ml Btl NASAL QID PRN Congestion Objective - Vital Signs Vital signs: Vital Signs Temp 97.7 F 03/13/24 11:24 Pulse 106 H 03/13/24 11:24 Resp 22 03/13/24 11:24 BP 172/79 03/13/24 11:24 Pulse Ox 94 L 03/13/24 11:38 FiO2 80 03/13/24 11:38 Intake & Output 03/12/24 03/13/24 03/13/24 18:59 06:59 18:59 Intake Total 720 Output Total 2550 Balance 720 -2550 Intake: Oral 720 Output: Urine 2550 Other: Voiding Method Toilet Urinal # Voids 3 8 - Exam -GENERAL: The patient is alert and oriented x1-2, not in any acute distress. Well developed, well nourished. HEENT: Pupils are round and equally reacting to light. EOMI. No scleral icterus. No conjunctival pallor. Normocephalic, atraumatic. No pharyngeal erythema. No thyromegaly. CARDIOVASCULAR: S1 and S2 present. No murmurs, rubs, or gallops. -PULMONARY: Chest is clear to auscultation, no wheezing , bilateral crepitation, patient mildly tachypneic ABDOMEN: Soft, nontender, nondistended, normoactive bowel sounds. No palpable organomegaly. MUSCULOSKELETAL: No joint swelling or deformity. EXTREMITIES: No cyanosis, clubbing, or pedal edema. NEUROLOGICAL: Gross neurological examination did not reveal any focal deficits. SKIN: No rashes. no petechiae. - Labs CBC & Chem 7: 03/13/24 03:20 03/13/24 03:20 Labs: Abnormal Lab Results - Last 24 Hours (Table) 03/12/24 03/12/24 03/12/24 Range/Units 14:42 16:33 20:47 WBC (4.50-10.00) X 10*3/uL RBC (4.40-5.60) X 10*6/uL Hgb (13.0-17.0) g/dL Hct (39.6-50.0) % MCHC (32.0-37.0) g/dL RDW (11.5-14.5) % Immature Gran # (0.00-0.04) X 10*3/uL Neutrophils # (1.80-7.70) X 10*3/uL Lymphocytes # (0.90-5.00) X 10*3/uL Eosinophils # (0.04-0.35) X 10*3/uL D-Dimer (<0.60) mg/L FEU Potassium (3.5-5.5) mmol/L Chloride 115 H (98-107) mmol/L Carbon Dioxide 17 L (22-30) mmol/L Anion Gap (4.00-12.00) mmol/L BUN 23 H (9-20) mg/dL BUN/Creatinine Ratio (12.00-20.00) Ratio Glucose 145 H (74-99) mg/dL POC Glucose (mg/dL) 152 H 177 H (70-110) mg/dL Calcium (8.7-10.3) mg/dL 03/13/24 03/13/24 03/13/24 Range/Units 03:20 03:20 06:35 WBC 19.64 H (4.50-10.00) X 10*3/uL RBC 4.31 L (4.40-5.60) X 10*6/uL Hgb 11.8 L (13.0-17.0) g/dL Hct 37.2 L (39.6-50.0) % MCHC 31.7 L (32.0-37.0) g/dL RDW 15.3 H (11.5-14.5) % Immature Gran # 0.17 H (0.00-0.04) X 10*3/uL Neutrophils # 18.49 H (1.80-7.70) X 10*3/uL Lymphocytes # 0.33 L (0.90-5.00) X 10*3/uL Eosinophils # 0 L (0.04-0.35) X 10*3/uL D-Dimer (<0.60) mg/L FEU Potassium 3.3 L (3.5-5.5) mmol/L Chloride (98-107) mmol/L Carbon Dioxide 19.2 L (22-30) mmol/L Anion Gap 14.80 H (4.00-12.00) mmol/L BUN (9-20) mg/dL BUN/Creatinine Ratio 23.12 H (12.00-20.00) Ratio Glucose 163 H (74-99) mg/dL POC Glucose (mg/dL) 176 H (70-110) mg/dL Calcium 8.3 L (8.7-10.3) mg/dL 03/13/24 Range/Units 07:00 WBC (4.50-10.00) X 10*3/uL RBC (4.40-5.60) X 10*6/uL Hgb (13.0-17.0) g/dL Hct (39.6-50.0) % MCHC (32.0-37.0) g/dL RDW (11.5-14.5) % Immature Gran # (0.00-0.04) X 10*3/uL Neutrophils # (1.80-7.70) X 10*3/uL Lymphocytes # (0.90-5.00) X 10*3/uL Eosinophils # (0.04-0.35) X 10*3/uL D-Dimer 1.03 H (<0.60) mg/L FEU Potassium (3.5-5.5) mmol/L Chloride (98-107) mmol/L Carbon Dioxide (22-30) mmol/L Anion Gap (4.00-12.00) mmol/L BUN (9-20) mg/dL BUN/Creatinine Ratio (12.00-20.00) Ratio Glucose (74-99) mg/dL POC Glucose (mg/dL) (70-110) mg/dL Calcium (8.7-10.3) mg/dL Microbiology - Last 24 Hours (Table) 03/10/24 19:32 Blood Culture - Preliminary Blood Assessment and Plan Assessment: Bilateral patchy pneumonia, could be related to COVID. bacterial infection felt less likely Acute COPD exacerbation Acute hypoxic respiratory failure Urine analysis is abnormal suspicious for UTI however patient is asymptomatic Severe metabolic/toxic encephalopathy versus other Acute kidney injury "resolved Substance abuse with urine drug screen is positive for opiates, barbiturates, methamphetamine and marijuana Plan: Continue with high flow nasal cannula Continue with antibiotic, currently on Zithromax and ceftriaxone Follow-up blood culture Continue with IV fluid Continue with IV steroids, currently on IV Solu-Medrol CT of the chest is ordered Follow-up WBC and creatinine Pulmonary neurology consult Labs and medication were reviewed.. Continue same treatment. Continue with symptomatic treatment. Resume home medication. Monitor labs and vitals. DVT and GI prophylaxis. Further recommendations as per clinical course of the patient DVT prophylaxis: Subcutaneous h Lovenox 40 mg twice daily GI Prophylaxis: Pepcid PT/OT: Pending Prognosis is guarded CODE STATUS. Wants to be DNR/DNI
[2024-03-13 16:51] LABS: Glucose,Whole Blood 158 mg/dL (70-110)
[2024-03-13] MEDS: SODIUM CHLORIDE 0.65% NASAL SPRAY 44 ML BTL NASAL PRN (17:00)
[2024-03-13] MEDS: FOLIC ACID 1 MG TAB PO SCH (17:00)
--- NOTE | 2024-03-13 17:25 | P.PN ---
Subjective Progress Note Date: 03/13/24 Patient is a 64-year-old white male with past medical history significant for COPD, as needed home O2, chronic ongoing tobacco dependence, prior ventilator dependent respiratory failure, GERD, hypertension, atrial fibrillation, among other things. He does have frequent hospitalizations. Recently, presenting where he becomes altered and has falls. Most recently admitted back in November, for this presentation. According to the patient's he gets this way when he has an infection. He has had previous episodes of pneumonia and UTIs. On his last admission he was delirious requiring multiple doses of antipsychotics and benzodiazepines. He is currently lethargic, not following commands, unable to participate in HPI. Reportedly had multiple falls at home yesterday. According to the ER documentation, patient presented yesterday afternoon with a chief complaint of mental status changes. Reportedly has had multiple falls. He was agitated. He did have a brain CT which did not demonstrate any acute intracranial hemorrhage or mass effect. Urine toxicology screen positive for opiates, tricyclic antidepressants, methamphetamines, benzodiazepines, and marijuana. Serum alcohol less than 10. Patient also noted to be in a bit dyspneic, and was placed on supplemental oxygen which is cur rently at 2 L/min nasal cannula. Chest x-ray showing cardiomegaly, bilateral interstitial infiltrates. Most recent available echocardiogram done November,, and estimating a left ventricular ejection fraction of 55 to 60%. No significant valvular abnormalities noted. NT proBNP 1820. Troponins less than 0.012. EKG: Normal sinus rhythm, 69 bpm, no obvious acute ischemic changes. CBC: WBC count 25.9, hemoglobin 12.2, hematocrit 37.4, platelets 270. He was empirically covered on azithromycin and Rocephin. Viral screen positive for COVID. CMP: Sodium 141, potassium 4.4, chloride 108, serum bicarb 20, BUN 21, creatinine 1.54, glucose 98. Urinalysis positive for leukocyte Estrace. LFTs unremarkable. Ammonia 25. Normal saline infusing at 100 mL/h. Patient also had some abdominal pain in the emergency department. CT abdomen and pelvis did not show any acute bowel obstruction or free air. Some mild nonspecific fluid in the lower abdomen. Dependent opacities in the lungs mostly suggestive of atelectasis, minor groundglass opacities noted in the bases. Afebrile; respiratory rate 20 breaths/min; SpO2 96% on 2 L/min nasal cannula; blood pressure 127/74 mmHg; heart rate 86 bpm. Patient is currently being observed on the medical floor. He is lethargic but will wake up with aggressive verbal/tactile stimuli. Does not readily follow commands. He has received multiple doses of Ativan, total of 4 mg so far. He was reportedly agitated earlier. He does have some wheezing on auscultation. COPD seems to be active. 03/12/2024 the patient is being seen for a follow-up. The patient is i stable and denies having any new complaints. He has been infected with COVID-19 at the patient is obviously in a denial and he thinks that he is negative. Noted several family members are also positive for COVID-19. He is currently on 1.5 L of oxygen by nasal cannula pulse ox 93%. He remains on albuterol HFA, and IV Solu-Medrol 60 mg every 6 hours. He is also utilizing Trelegy Ellipta from home 1 puff every 24 hours. Labs were noted. White cell count was elevated at 21 with a hemoglobin of 11.2 and there is improvement in his white cell count. BUN is 23 with a creatinine of 0.9 and sodium levels at 139 and a bicarb is at 17. LDH was 289 and CRP was at 10.6 and a procalcitonin level is at 1.13. Patient is covered empirically with IV antibiotics. Blood cultures are still pending for now. He remains on IV Rocephin. No altered mentation. 03/13/2024, the patient is respiratory status is decompensated. The patient had progressive worsening his oxygen requirements and he was brought up from 2 L up to 15 L overnight and currently is placed on Airvo at 55 L with FiO2 of 80%. At the same time, there is significant worsening in the chest x-ray findings with development of diffuse bilateral pulm infiltrates and interval worsening of the chest x-ray findings. The patient states that he does not want to get intubated at all show dizziness. Has good hours. Meanwhile, I think there is progression of his pneumonia. This is most likely viral pneumonia/COVID-19 pneumonia. Superinfection is felt to be less likely. The patient is currently covered with IV Rocephin. He is also on Lovenox 40 mg subcu for DVT prophylaxis. The white cell count today is at 19.6 lingo 11.8 and platelet count 222. D-dimer is 1.03. Rest of the electrolytes show a component of metabolic acidosis with a gap of 14 and an serum bicarb of 19. Sodium levels at 141. He is awake and alert and communicating. He is admitting to have some worsening shortness of breath. Yet his breathing is not significantly labored. No altered mentation. No confusion. Having some limited diarrhea. Objective - Vital Signs Vital signs: Vital Signs Temp 97.8 F 03/13/24 16:00 Pulse 85 03/13/24 16:00 Resp 20 03/13/24 16:00 BP 132/77 03/13/24 16:00 Pulse Ox 95 03/13/24 16:00 FiO2 81 03/13/24 15:29 Intake & Output 03/12/24 03/13/24 03/13/24 18:59 06:59 18:59 Intake Total 720 118 Output Total 2550 150 Balance 720 -2550 -32 Intake: Oral 720 118 Output: Urine 2550 150 Other: Voiding Method Toilet Urinal # Voids 3 8 - Exam GENERAL EXAM: Lethargic 64-year-old male, awake and alert and comfortable, currently on Airvo 55 L and FiO2 of 80% HEAD: Normocephalic and atraumatic EYES: Normal reaction of pupils, equal size. NOSE: Clear with pink turbinates. THROAT: No erythema or exudates. NECK: No masses, no JVD. CHEST: No chest wall deformity. LUNGS: Equal air entry with expiratory wheezes heard bilaterally and throughout. No conversational dyspnea or accessory muscle use. Occasional congested cough noted. CVS: S1 and S2 normal with no audible murmur, regular rhythm. No extra heart sounds ABDOMEN: No hepatosplenomegaly, active bowel sounds, no guarding or rigidity. SPINE: No scoliosis or deformity SKIN: No rashes CENTRAL NERVOUS SYSTEM: No focal deficits, tone is normal in all 4 extremities. EXTREMITIES: There is no peripheral edema, clubbing, or cyanosis. Peripheral pulses are intact. - Labs CBC & Chem 7: 03/13/24 03:20 03/13/24 03:20 Labs: Abnormal Lab Results - Last 24 Hours (Table) 03/12/24 03/13/24 03/13/24 Range/Units 20:47 03:20 03:20 WBC 19.64 H (4.50-10.00) X 10*3/uL RBC 4.31 L (4.40-5.60) X 10*6/uL Hgb 11.8 L (13.0-17.0) g/dL Hct 37.2 L (39.6-50.0) % MCHC 31.7 L (32.0-37.0) g/dL RDW 15.3 H (11.5-14.5) % Immature Gran # 0.17 H (0.00-0.04) X 10*3/uL Neutrophils # 18.49 H (1.80-7.70) X 10*3/uL Lymphocytes # 0.33 L (0.90-5.00) X 10*3/uL Eosinophils # 0 L (0.04-0.35) X 10*3/uL D-Dimer (<0.60) mg/L FEU Potassium 3.3 L (3.5-5.5) mmol/L Carbon Dioxide 19.2 L (21.6-31.8) mmol/L Anion Gap 14.80 H (4.00-12.00) mmol/L BUN/Creatinine Ratio 23.12 H (12.00-20.00) Ratio Glucose 163 H (70-110) mg/dL POC Glucose (mg/dL) 177 H (70-110) mg/dL Calcium 8.3 L (8.7-10.3) mg/dL 03/13/24 03/13/24 03/13/24 Range/Units 06:35 07:00 16:49 WBC (4.50-10.00) X 10*3/uL RBC (4.40-5.60) X 10*6/uL Hgb (13.0-17.0) g/dL Hct (39.6-50.0) % MCHC (32.0-37.0) g/dL RDW (11.5-14.5) % Immature Gran # (0.00-0.04) X 10*3/uL Neutrophils # (1.80-7.70) X 10*3/uL Lymphocytes # (0.90-5.00) X 10*3/uL Eosinophils # (0.04-0.35) X 10*3/uL D-Dimer 1.03 H (<0.60) mg/L FEU Potassium (3.5-5.5) mmol/L Carbon Dioxide (21.6-31.8) mmol/L Anion Gap (4.00-12.00) mmol/L BUN/Creatinine Ratio (12.00-20.00) Ratio Glucose (70-110) mg/dL POC Glucose (mg/dL) 176 H 158 H (70-110) mg/dL Calcium (8.7-10.3) mg/dL Microbiology - Last 24 Hours (Table) 03/10/24 19:32 Blood Culture - Preliminary Blood Assessment and Plan Assessment: Bilateral pneumonia with extensive pulmonary infiltrates and consolidation with obvious interval worsening over the past 24 hours. Rule out COVID-19/viral pneumonia. Superinfection with bacteria is possible and is not completely excluded. Acute COPD exacerbation, secondary to acute COVID infection/COVID-pneumonia Acute on chronic hypoxemic respiratory failure, with rapid progression and worsening his oxygenation status. The patient is currently on Airvo 55 L with an FiO2 of 80%. Bilateral pulmonary filtrates, could be related to COVID-19. Procalcitonin level is mild elevated probably due to renal failure. Noted the patient acute kidney injury is improving. Inflammatory markers are elevated including LDH and CRP. The patient is on IV Solu-Medrol, empirically covered with IV Rocephin Polysubstance abuse, urine toxicology screen positive for methamphetamines, benzodiazepines, opiates, TCAs, marijuana Altered mental status, suspect secondary acute metabolic encephalopathy and above Acute leukocytosis Acute kidney injury, improved and the creatinine is normalized Chronic obstructive pulmonary disease Chronic ongoing tobacco dependence History of ventilator dependent respiratory failure History of paroxysmal atrial fibrillation History of hypertension History of GERD Plan: Will keep the patient on Airvo for now at the same settings Continue IV Solu-Medrol Continue IV Rocephin Repeat procalcitonin level Discussed the case with pharmacy. I was considering the addition of baricitinib. Nevertheless, based on the concern of a superinfection, this will be avoided for the time being. Alternatively, we will begin the benefit of the doubt and start remdesivir in combination with IV Solu-Medrol. In terms of his COPD, we will continue on the Symbicort inhaler and bronchodilators [id number] Nonspecific elevation of the procalcitonin, probably due to his underlying acute kidney injury, will obtain repeat levels CAT scan of the abdomen was negative Unable to lay down flat for a CAT scan of the chest. D-dimer is mildly elevated and the patient is currently on Lovenox Mental status is adequate Will follow
[2024-03-13] MEDS: ONDANSETRON 4 MG/2 ML VIAL IVP PRN (18:26)
[2024-03-13 20:05] LABS: Glucose,Whole Blood 225 mg/dL (70-110)
[2024-03-14 05:52] LABS: Glucose,Whole Blood 147 mg/dL (70-110)
[2024-03-14 07:00] LABS: Basophils % (A) 0 %; Eosinophils % (A) 0 %; HCT 38.6 % (39.0-53.0); HGB 11.9 gm/dL (13.0-17.5); Hypochromasia Marked; Lymphocytes # (A) 0.4 k/uL (1.0-4.8); Lymphocytes % (A) 4 %; MCH 27.6 pg (25.0-35.0); MCHC 30.8 g/dL (31.0-37.0); MCV 89.7 fL (80.0-100.0); Monocytes # (A) 0.5 k/uL (0-1.0); Monocytes % (A) 4 %; Neutrophils # (A) 9.3 k/uL (1.3-7.7); Neutrophils % (A) 91 %; Platelet Count 180 k/uL (150-450); RBC 4.31 m/uL (4.30-5.90); RDW 14.8 % (11.5-15.5); WBC 10.3 k/uL (3.8-10.6)
[2024-03-14 07:28] LABS: ALT 17 U/L (4-49); AST 29 U/L (17-59); African American GFR (CKD) >90 (>60 ml/min/1.73 sqM); Albumin 3.5 g/dL (3.5-5.0); Alkaline Phosphatase 65 U/L (38-126); Anion Gap 7 mmol/L; Blood Urea Nitrogen 17 mg/dL (9-20); Calcium 8.6 mg/dL (8.4-10.2); Carbon Dioxide 20 mmol/L (22-30); Chloride 115 mmol/L (98-107); Glucose 132 mg/dL (74-99); Non-African American GFR(CKD) >90 (>60 ml/min/1.73 sqM); Potassium 3.4 mmol/L (3.5-5.1); Sodium 142 mmol/L (137-145); Total Bilirubin 0.5 mg/dL (0.2-1.3); Total Protein 5.6 g/dL (6.3-8.2)
--- NOTE | 2024-03-14 10:03 | P.PN ---
Subjective This is a pleasant 64 years old male who presents from home for altered mental status. Patient currently is poor historian and cannot provide detailed information. Patient cannot tell me his name, he is confused and disoriented to time place and person, he could not tell where he is at, he thought this 2020 without month or date. He thought it is a trump as the president. Patient could not tell why he came to the hospital. But when I ask him if he has pain he says in his back. He denies chest pain or abdominal pain. He looks contracted and abdominal muscles tense. However CT of the abdomen pelvis done in the emergency room showing no bowel obstruction. As per records patient would have altered mental status whenever he has UTI per family. On admission he is tachycardic around 101, he is saturating 95% on 2 L. No fever. Labs show a leukocytosis of 25.9, hemoglobin 12.2, creatinine 1.5 with baseline about 0.8 Urine drug screen is positive for opiates, barbiturates, methamphetamine and marijuana COVID test is positive Chest x-ray reviewed by myself showing bilateral multifocal opacities There is no EKG CT of the brain is negative for acute process CT of the abdomen and pelvis reviewed showing no small bowel obstruction or free air 03/12 Patient breathing quietly however he still significantly hypoxic requiring heart rate of oxygen 6 L and during the evening went up to 10 L He is mildly confused he knows he is in [facility]. He thought his 2022 and he could not tell the president Chest x-ray showing bilateral multifocal infiltrate COVID test is positive as well as increased LDH and CRP Patient pro- Calcitonin is also elevated at 1.31 indicating possible bacterial superinfection and currently covered with Rocephin Also receiving steroids with IV Solu-Medrol and gentle hydration Kidney function improved. Leukocytosis trending down to 21,000. 03/13 Patient oxygen requirements increased significantly overnight up to 15 L/min, later on he required high-dose nasal cannula at 55 L/min Repeat chest x-ray shows worsening bilateral infiltrate, I reviewed the chest x- ray by myself and agree with it Patient has mildly increased D-dimer from 0.25 up to 1.0 in 2 days. He is on Lovenox 40 mg daily we will going to increase it to twice daily. Also CTA of the chest is ordered Staff and I discussed with the patient in details, we discussed CODE STATUS with him after explaining risk and benefits, he states that he does not want any intubation as he had bad experience with it previously that he is adamant for no intubation and also he declines resuscitation like chest compression electric shock or other measures. Patient adamant he wants to be DNR. He understands risk and benefits are explained to him in details. He understands that if no intubation and worsening hypoxia he went to go to hospice/comfort care and he is agreeable to that. Based on my evaluation patient has capacity make medical decision he is fully awake and oriented to time place person, he has insight. Patient actually sitting at the bedside and despite his higher oxygen requirement he looks mild to moderately tachypneic while at rest. He can talk freely with no difficulties. He denies chest pain, no other complaint. Patient was transferred to select unit for higher level of care. Patient states that we can talk to his about his health issue if needed 03/14 Patient sitting in bed edge, with mild respiratory distress. He is mildly tachypneic. Denies chest pain or coughing. He talks freely. His oxygen requirement exceeds yesterday and this morning he is on high flow nasal cannula at 55 L/min. No other new specific complaints Most likely patient respiratory infection is due to viral infection with COVID, bacterial super infection is also suspected but less likely. Actually his white cell count normalized today from 21,000 down to 10.3, inflammatory markers elevated. Patient started on remdesivir today. He is also on Zithromax and ceftriaxone. Also his Solu-Medrol for elements of COPD exacerbation and IV fluid No signs symptoms of alcohol withdrawal CTA of the chest is requested and is pending D-dimer is elevated to 1.0. We increased his Lovenox 40 mg to twice daily Review of systems CONSTITUTIONAL: No fever, no malaise, no fatigue. HEENT: No recent visual problems or hearing problems. Denied any sore throat. . NEUROLOGICAL: No headaches, no weakness, no numbness. HEMATOLOGICAL: Denies any bleeding or petechiae. GENITOURINARY: Denies any burning micturition, frequency, or urgency. MUSCULOSKELETAL/RHEUMATOLOGICAL: Denies any joint pain, swelling, or any muscle pain. ENDOCRINE: Denies any polyuria or polydipsia. Active Medications Generic Name Dose Route Start Last Admin Trade Name Freq PRN Reason Stop Dose Admin Acetaminophen 650 mg 03/10/24 23:52 03/14/24 05:16 Acetaminophen Tab 325 Mg Tab PO 650 mg Q6HR PRN Administration Fever and/ or Pain Hydrocodone Bitart/Acetaminophen 1 each 03/12/24 10:36 03/14/24 02:34 Hydrocodone/Apap 7.5-325mg 1 Each Tab PO 1 each TID PRN Administration Pain Albuterol Sulfate 2 puff 03/11/24 08:00 03/14/24 08:29 Albuterol Hfa Inhaler INHALATION Not Given RT-QID RAGHU Baclofen 20 mg 03/10/24 19:07 03/14/24 02:34 Baclofen 10 Mg Tab PO 20 mg TID PRN Administration Pain Citalopram Hydrobromide 40 mg 03/11/24 09:00 03/13/24 08:45 Citalopram Hydrobromide 20 Mg Tab PO 40 mg DAILY RAGHU Administration Cyanocobalamin 1,000 mcg 03/14/24 09:00 Cyanocobalamin 500 Mcg Tab PO DAILY RAGHU Dextrose/Water 25 ml 03/11/24 09:10 Dextrose 50% Syringe 50 Ml IVP PER PROTOCOL PRN Hypoglycemia Protocol Dextrose/Water 50 ml 03/11/24 09:10 Dextrose 50% Syringe 50 Ml IVP PER PROTOCOL PRN Hypoglycemia Protocol Enoxaparin Sodium 40 mg 03/13/24 09:00 03/13/24 20:25 Enoxaparin 40 Mg/0.4 Ml Syringe SQ 40 mg BID RAGHU Administration Famotidine 20 mg 03/12/24 21:00 03/13/24 20:25 Famotidine 20 Mg Tab PO 20 mg BID RAGHU Administration Folic Acid 1 mg 03/13/24 12:15 03/13/24 17:00 Folic Acid 1 Mg Tab PO 1 mg DAILY RAGHU Administration Haloperidol Lactate 3 mg 03/11/24 07:23 03/11/24 07:32 Haloperidol Lactate 5 Mg/Ml 1 Ml Vial IM 3 mg Q6HR PRN Administration Agitation or Acute Psychosis Sodium Chloride 1,000 mls @ 100 mls/hr 03/10/24 19:15 03/13/24 23:27 Saline 0.9% IV 100 mls/hr .Q10H RAGHU Administration Remdesivir 100 mg/ Sodium 250 mls @ 250 mls/hr 03/14/24 09:00 Chloride IVPB 03/17/24 09:59 DAILY [facility] Insulin Aspart 0 unit 03/11/24 12:30 03/14/24 05:53 Insulin Aspart (Novolog) 100 Unit/Ml Vial SQ Not Given ACHS [facility] Protocol Lorazepam 1 mg 03/10/24 19:51 03/11/24 14:31 Lorazepam 2 Mg/Ml Inj IV 1 mg Q4HR PRN Administration Anxiety Methylprednisolone Sodium Succinate 60 mg 03/11/24 06:00 03/14/24 05:16 Methylprednisolone Sod Succi 125 Mg/2 Ml Vial IV 60 mg Q6HR RAGHU Administration Miscellaneous Information 1 each 03/10/24 19:05 Pneumonia Protocol Utilized 1 Each Misc PO ONCE PRN Per Protocol Trelegy Ellipta 1 each 03/12/24 10:00 03/14/24 08:29 Inhaler INHALATION 1 each RT-DAILY RAGHU Administration Ondansetron HCl 4 mg 03/13/24 18:15 03/13/24 18:26 Ondansetron 4 Mg/2 Ml Vial IVP 4 mg Q6HR PRN Administration Nausea And Vomiting Sodium Chloride 2 spray 03/13/24 11:24 03/13/24 17:00 Sodium Chloride 0.65% Nasal [place] 44 Ml Btl NASAL 2 spray QID PRN Administration Congestion Objective - Vital Signs Vital signs: Vital Signs Temp 98.5 F 03/13/24 20:00 Pulse 83 03/14/24 04:00 Resp 22 03/14/24 04:00 BP 136/75 03/14/24 04:00 Pulse Ox 90 L 03/14/24 08:29 FiO2 80 03/14/24 08:29 Intake & Output 03/13/24 03/14/24 03/14/24 18:59 06:59 18:59 Intake Total 236 540 Output Total 150 1000 Balance 86 -460 Weight 77.2 kg Intake: Oral 236 540 Output: Urine 150 1000 Other: Voiding Method Toilet Urinal - Exam -GENERAL: The patient is alert and oriented x1-2, not in any acute distress. Well developed, well nourished. HEENT: Pupils are round and equally reacting to light. EOMI. No scleral icterus. No conjunctival pallor. Normocephalic, atraumatic. No pharyngeal erythema. No thyromegaly. CARDIOVASCULAR: S1 and S2 present. No murmurs, rubs, or gallops. -PULMONARY: Chest is clear to auscultation, no wheezing , bilateral crepitation, patient mildly tachypneic ABDOMEN: Soft, nontender, nondistended, normoactive bowel sounds. No palpable organomegaly. MUSCULOSKELETAL: No joint swelling or deformity. EXTREMITIES: No cyanosis, clubbing, or pedal edema. NEUROLOGICAL: Gross neurological examination did not reveal any focal deficits. SKIN: No rashes. no petechiae. - Labs CBC & Chem 7: 03/14/24 05:59 03/14/24 05:59 Labs: Abnormal Lab Results - Last 24 Hours (Table) 03/13/24 03/13/24 03/14/24 Range/Units 16:49 19:58 05:39 Hgb (13.0-17.5) gm/dL Hct (39.0-53.0) % MCHC (31.0-37.0) g/dL Neutrophils # (1.3-7.7) k/uL Lymphocytes # (1.0-4.8) k/uL Potassium (3.5-5.1) mmol/L Chloride (98-107) mmol/L Carbon Dioxide (22-30) mmol/L Creatinine (0.66-1.25) mg/dL Glucose (74-99) mg/dL POC Glucose (mg/dL) 158 H 225 H 147 H (70-110) mg/dL Total Protein (6.3-8.2) g/dL 03/14/24 03/14/24 Range/Units 05:59 05:59 Hgb 11.9 L (13.0-17.5) gm/dL Hct 38.6 L (39.0-53.0) % MCHC 30.8 L (31.0-37.0) g/dL Neutrophils # 9.3 H (1.3-7.7) k/uL Lymphocytes # 0.4 L (1.0-4.8) k/uL Potassium 3.4 L (3.5-5.1) mmol/L Chloride 115 H (98-107) mmol/L Carbon Dioxide 20 L (22-30) mmol/L Creatinine 0.65 L (0.66-1.25) mg/dL Glucose 132 H (74-99) mg/dL POC Glucose (mg/dL) (70-110) mg/dL Total Protein 5.6 L (6.3-8.2) g/dL Microbiology - Last 24 Hours (Table) 03/10/24 19:32 Blood Culture - Preliminary Blood Assessment and Plan Assessment: Bilateral patchy pneumonia, could be related to COVID. bacterial infection felt less likely Acute COPD exacerbation Acute hypoxic respiratory failure Urine analysis is abnormal suspicious for UTI however patient is asymptomatic Severe metabolic/toxic encephalopathy versus other Acute kidney injury "resolved Substance abuse with urine drug screen is positive for opiates, barbiturates, methamphetamine and marijuana Plan: Continue with high flow nasal cannula Continue with antibiotic, currently on Zithromax and ceftriaxone Follow-up blood culture started on remdesivir Continue with IV fluid Continue with IV steroids, currently on IV Solu-Medrol CT of the chest is ordered Follow-up WBC and creatinine Pulmonary neurology consult Labs and medication were reviewed.. Continue same treatment. Continue with symptomatic treatment. Resume home medication. Monitor labs and vitals. DVT and GI prophylaxis. Further recommendations as per clinical course of the patient DVT prophylaxis: Subcutaneous h Lovenox 40 mg twice daily GI Prophylaxis: Pepcid PT/OT: Pending Prognosis is guarded CODE STATUS. Wants to be DNR/DNI
[2024-03-14] MEDS: CYANOCOBALAMIN 1,000 MCG/ML 1 ML VIAL IM ONE (10:14)
[2024-03-14] MEDS: CYANOCOBALAMIN 500 MCG TAB PO SCH (10:15)
--- NOTE | 2024-03-14 11:18 | XR ---
EXAMINATION TYPE: XR chest 1V DATE OF EXAM: 03/14/2024 COMPARISON: 03/13/2024 HISTORY: Bilateral pneumonia TECHNIQUE: Single frontal view of the chest is obtained. FINDINGS: Allowing for differences in technique, there is no change in the diffuse airspace opacitie s consistent with pulmonary edema or pneumonia. There is no pleural effusion or pneumothorax. The heart size is normal. The extraocular intact IMPRESSION: Marked acute pulmonary process unchanged compared to prior. [facility], , 03/14/2024 11:15 AM
[2024-03-14 11:43] LABS: Glucose,Whole Blood 142 mg/dL (70-110)
[2024-03-14] MEDS: REMDESIVIR 100 MG in SODIUM CHLORIDE 0.9% 250 ML IVPB SCH (12:22)
[2024-03-14] MEDS: ALPRAZolam 0.5 MG TAB PO PRN (12:23)
--- NOTE | 2024-03-14 13:25 | P.PN ---
Subjective Progress Note Date: 03/14/24 Patient is a 64-year-old white male with past medical history significant for COPD, as needed home O2, chronic ongoing tobacco dependence, prior ventilator dependent respiratory failure, GERD, hypertension, atrial fibrillation, among other things. He does have frequent hospitalizations. Recently, presenting where he becomes altered and has falls. Most recently admitted back in November, for this presentation. According to the patient's he gets this way when he has an infection. He has had previous episodes of pneumonia and UTIs. On his last admission he was delirious requiring multiple doses of antipsychotics and benzodiazepines. He is currently lethargic, not following commands, unable to participate in HPI. Reportedly had multiple falls at home yesterday. According to the ER documentation, patient presented yesterday afternoon with a chief complaint of mental status changes. Reportedly has had multiple falls. He was agitated. He did have a brain CT which did not demonstrate any acute intracranial hemorrhage or mass effect. Urine toxicology screen positive for opiates, tricyclic antidepressants, methamphetamines, benzodiazepines, and marijuana. Serum alcohol less than 10. Patient also noted to be in a bit dyspneic, and was placed on supplemental oxygen which is cur rently at 2 L/min nasal cannula. Chest x-ray showing cardiomegaly, bilateral interstitial infiltrates. Most recent available echocardiogram done November,, and estimating a left ventricular ejection fraction of 55 to 60%. No significant valvular abnormalities noted. NT proBNP 1820. Troponins less than 0.012. EKG: Normal sinus rhythm, 69 bpm, no obvious acute ischemic changes. CBC: WBC count 25.9, hemoglobin 12.2, hematocrit 37.4, platelets 270. He was empirically covered on azithromycin and Rocephin. Viral screen positive for COVID. CMP: Sodium 141, potassium 4.4, chloride 108, serum bicarb 20, BUN 21, creatinine 1.54, glucose 98. Urinalysis positive for leukocyte Estrace. LFTs unremarkable. Ammonia 25. Normal saline infusing at 100 mL/h. Patient also had some abdominal pain in the emergency department. CT abdomen and pelvis did not show any acute bowel obstruction or free air. Some mild nonspecific fluid in the lower abdomen. Dependent opacities in the lungs mostly suggestive of atelectasis, minor groundglass opacities noted in the bases. Afebrile; respiratory rate 20 breaths/min; SpO2 96% on 2 L/min nasal cannula; blood pressure 127/74 mmHg; heart rate 86 bpm. Patient is currently being observed on the medical floor. He is lethargic but will wake up with aggressive verbal/tactile stimuli. Does not readily follow commands. He has received multiple doses of Ativan, total of 4 mg so far. He was reportedly agitated earlier. He does have some wheezing on auscultation. COPD seems to be active. 03/12/2024 the patient is being seen for a follow-up. The patient is i stable and denies having any new complaints. He has been infected with COVID-19 at the patient is obviously in a denial and he thinks that he is negative. Noted several family members are also positive for COVID-19. He is currently on 1.5 L of oxygen by nasal cannula pulse ox 93%. He remains on albuterol HFA, and IV Solu-Medrol 60 mg every 6 hours. He is also utilizing Trelegy Ellipta from home 1 puff every 24 hours. Labs were noted. White cell count was elevated at 21 with a hemoglobin of 11.2 and there is improvement in his white cell count. BUN is 23 with a creatinine of 0.9 and sodium levels at 139 and a bicarb is at 17. LDH was 289 and CRP was at 10.6 and a procalcitonin level is at 1.13. Patient is covered empirically with IV antibiotics. Blood cultures are still pending for now. He remains on IV Rocephin. No altered mentation. 03/13/2024, the patient is respiratory status is decompensated. The patient had progressive worsening his oxygen requirements and he was brought up from 2 L up to 15 L overnight and currently is placed on Airvo at 55 L with FiO2 of 80%. At the same time, there is significant worsening in the chest x-ray findings with development of diffuse bilateral pulm infiltrates and interval worsening of the chest x-ray findings. The patient states that he does not want to get intubated at all show dizziness. Has good hours. Meanwhile, I think there is progression of his pneumonia. This is most likely viral pneumonia/COVID-19 pneumonia. Superinfection is felt to be less likely. The patient is currently covered with IV Rocephin. He is also on Lovenox 40 mg subcu for DVT prophylaxis. The white cell count today is at 19.6 lingo 11.8 and platelet count 222. D-dimer is 1.03. Rest of the electrolytes show a component of metabolic acidosis with a gap of 14 and an serum bicarb of 19. Sodium levels at 141. He is awake and alert and communicating. He is admitting to have some worsening shortness of breath. Yet his breathing is not significantly labored. No altered mentation. No confusion. Having some limited diarrhea. On 03/14/2024, the patient is being seen for a follow-up. The patient remains on Airvo and this morning the patient is on a FiO2 of 80% with a flow of 55 L/min. Repeat chest x-ray was done today and again it showed diffuse bilateral pulmonary infiltrates and the findings are essentially unchanged compared to yesterday. The diffuse airspace disease is essentially stable. Meanwhile, the patient is having some dyspnea even at rest. He is able to complete full sentences. No significant cough or sputum production. Examination is crackles in the mid lower lung base bilaterally. Once this is a 10 with a hemoglobin of 11.9. BUN 17 with a creatinine of 0.6 and a sodium of is at 142. Serum bicarb is at 20. LFTs are all within normal limits. The patient is currently on IV Solu-Medrol. The patient is on Trelegy Ellipta 1 puff a day. The patient on Lovenox 40 mg subcu twice a day. He was started on remdesivir and is on day #2 of treatment. No altered mentation. No diarrhea for now. Objective - Vital Signs Vital signs: Vital Signs Temp 98.3 F 03/14/24 08:00 Pulse 91 03/14/24 08:00 Resp 24 03/14/24 08:00 BP 153/77 03/14/24 08:00 Pulse Ox 90 L 03/14/24 11:54 FiO2 80 03/14/24 11:54 Intake & Output 03/13/24 03/14/24 03/14/24 18:59 06:59 18:59 Intake Total 236 540 240 Output Total 150 1000 Balance 86 -460 240 Weight 77.2 kg Intake: Oral 236 540 240 Output: Urine 150 1000 Other: Voiding Method Toilet Toilet Urinal Urinal - Exam GENERAL EXAM: Lethargic 64-year-old male, awake and alert and comfortable, currently on Airvo 55 L and FiO2 of 80%, slightly labored breathing. HEAD: Normocephalic and atraumatic EYES: Normal reaction of pupils, equal size. NOSE: Clear with pink turbinates. THROAT: No erythema or exudates. NECK: No masses, no JVD. CHEST: No chest wall deformity. LUNGS: Equal air entry with expiratory wheezes heard bilaterally and throughout. No conversational dyspnea or accessory muscle use. Occasional congested cough noted. The patient has crackles in the mid and lower lung interiano bilaterally. CVS: S1 and S2 normal with no audible murmur, regular rhythm. No extra heart sounds ABDOMEN: No hepatosplenomegaly, active bowel sounds, no guarding or rigidity. SPINE: No scoliosis or deformity SKIN: No rashes CENTRAL NERVOUS SYSTEM: No focal deficits, tone is normal in all 4 extremities. EXTREMITIES: There is no peripheral edema, clubbing, or cyanosis. Peripheral pu lses are intact. - Labs CBC & Chem 7: 03/14/24 05:59 03/14/24 05:59 Labs: Abnormal Lab Results - Last 24 Hours (Table) 03/13/24 03/13/24 03/14/24 Range/Units 16:49 19:58 05:39 Hgb (13.0-17.5) gm/dL Hct (39.0-53.0) % MCHC (31.0-37.0) g/dL Neutrophils # (1.3-7.7) k/uL Lymphocytes # (1.0-4.8) k/uL Potassium (3.5-5.1) mmol/L Chloride (98-107) mmol/L Carbon Dioxide (22-30) mmol/L Creatinine (0.66-1.25) mg/dL Glucose (74-99) mg/dL POC Glucose (mg/dL) 158 H 225 H 147 H (70-110) mg/dL Total Protein (6.3-8.2) g/dL 03/14/24 03/14/24 03/14/24 Range/Units 05:59 05:59 11:31 Hgb 11.9 L (13.0-17.5) gm/dL Hct 38.6 L (39.0-53.0) % MCHC 30.8 L (31.0-37.0) g/dL Neutrophils # 9.3 H (1.3-7.7) k/uL Lymphocytes # 0.4 L (1.0-4.8) k/uL Potassium 3.4 L (3.5-5.1) mmol/L Chloride 115 H (98-107) mmol/L Carbon Dioxide 20 L (22-30) mmol/L Creatinine 0.65 L (0.66-1.25) mg/dL Glucose 132 H (74-99) mg/dL POC Glucose (mg/dL) 142 H (70-110) mg/dL Total Protein 5.6 L (6.3-8.2) g/dL Microbiology - Last 24 Hours (Table) 03/10/24 19:32 Blood Culture - Preliminary Blood Assessment and Plan Assessment: Bilateral pneumonia with extensive pulmonary infiltrates and consolidation with obvious interval worsening over the past 24 hours. Rule out COVID-19/viral pneumonia. Superinfection with bacteria is possible and is not completely excluded. Acute COPD exacerbation, secondary to acute COVID infection/COVID-pneumonia Acute on chronic hypoxemic respiratory failure, with rapid progression and worsening his oxygenation status. The patient is currently on Airvo 55 L with an FiO2 of 80% Bilateral pulmonary filtrates, could be related to COVID-19. Procalcitonin level is mild elevated probably due to renal failure. Noted the patient acute kidney injury is improving. Inflammatory markers are elevated including LDH and CRP. The patient is on IV Solu-Medrol, empirically covered with IV Rocephin Polysubstance abuse, urine toxicology screen positive for methamphetamines, jeaneth odiazepines, opiates, TCAs, marijuana Altered mental status, suspect secondary acute metabolic encephalopathy and above Acute leukocytosis Acute kidney injury, improved and the creatinine is normalized Chronic obstructive pulmonary disease Chronic ongoing tobacco dependence History of ventilator dependent respiratory failure History of paroxysmal atrial fibrillation History of hypertension History of GERD Plan: Overall respiratory status and oxygenation and the chest x-ray findings are stable compared to yesterday. Will keep the patient on Airvo for now at the same settings Continue IV Solu-Medrol Continue remdesivir day #2 Continue IV Rocephin Repeat procalcitonin level, levels are still pending In terms of his COPD, we will continue on the Symbicort inhaler and bronchodilat ors [id number] Nonspecific elevation of the procalcitonin, probably due to his underlying acute kidney injury, will obtain repeat levels CAT scan of the abdomen was negative Unable to lay down flat for a CAT scan of the chest. D-dimer is mildly elevated and the patient is currently on Lovenox Mental status is adequate Will follow
[2024-03-14 16:22] LABS: Glucose,Whole Blood 207 mg/dL (70-110)
[2024-03-14 20:07] LABS: Glucose,Whole Blood 152 mg/dL (70-110)
[2024-03-15 06:08] LABS: Glucose,Whole Blood 251 mg/dL (70-110)
[2024-03-15 11:38] LABS: Glucose,Whole Blood 102 mg/dL (70-110)
--- NOTE | 2024-03-15 13:58 | P.PN ---
Subjective This is a pleasant 64 years old male who presents from home for altered mental status. Patient currently is poor historian and cannot provide detailed information. Patient cannot tell me his name, he is confused and disoriented to time place and person, he could not tell where he is at, he thought this 2020 without month or date. He thought it is a trump as the president. Patient could not tell why he came to the hospital. But when I ask him if he has pain he says in his back. He denies chest pain or abdominal pain. He looks contracted and abdominal muscles tense. However CT of the abdomen pelvis done in the emergency room showing no bowel obstruction. As per records patient would have altered mental status whenever he has UTI per family. On admission he is tachycardic around 101, he is saturating 95% on 2 L. No fever. Labs show a leukocytosis of 25.9, hemoglobin 12.2, creatinine 1.5 with baseline about 0.8 Urine drug screen is positive for opiates, barbiturates, methamphetamine and marijuana COVID test is positive Chest x-ray reviewed by myself showing bilateral multifocal opacities There is no EKG CT of the brain is negative for acute process CT of the abdomen and pelvis reviewed showing no small bowel obstruction or free air 03/12 Patient breathing quietly however he still significantly hypoxic requiring heart rate of oxygen 6 L and during the evening went up to 10 L He is mildly confused he knows he is in [facility]. He thought his 2022 and he could not tell the president Chest x-ray showing bilateral multifocal infiltrate COVID test is positive as well as increased LDH and CRP Patient pro- Calcitonin is also elevated at 1.31 indicating possible bacterial superinfection and currently covered with Rocephin Also receiving steroids with IV Solu-Medrol and gentle hydration Kidney function improved. Leukocytosis trending down to 21,000. 03/13 Patient oxygen requirements increased significantly overnight up to 15 L/min, later on he required high-dose nasal cannula at 55 L/min Repeat chest x-ray shows worsening bilateral infiltrate, I reviewed the chest x- ray by myself and agree with it Patient has mildly increased D-dimer from 0.25 up to 1.0 in 2 days. He is on Lovenox 40 mg daily we will going to increase it to twice daily. Also CTA of the chest is ordered Staff and I discussed with the patient in details, we discussed CODE STATUS with him after explaining risk and benefits, he states that he does not want any intubation as he had bad experience with it previously that he is adamant for no intubation and also he declines resuscitation like chest compression electric shock or other measures. Patient adamant he wants to be DNR. He understands risk and benefits are explained to him in details. He understands that if no intubation and worsening hypoxia he went to go to hospice/comfort care and he is agreeable to that. Based on my evaluation patient has capacity make medical decision he is fully awake and oriented to time place person, he has insight. Patient actually sitting at the bedside and despite his higher oxygen requirement he looks mild to moderately tachypneic while at rest. He can talk freely with no difficulties. He denies chest pain, no other complaint. Patient was transferred to select unit for higher level of care. Patient states that we can talk to his about his health issue if needed 03/14 Patient sitting in bed edge, with mild respiratory distress. He is mildly tachypneic. Denies chest pain or coughing. He talks freely. His oxygen requirement exceeds yesterday and this morning he is on high flow nasal cannula at 55 L/min. No other new specific complaints Most likely patient respiratory infection is due to viral infection with COVID, bacterial super infection is also suspected but less likely. Actually his white cell count normalized today from 21,000 down to 10.3, inflammatory markers elevated. Patient started on remdesivir today. He is also on Zithromax and ceftriaxone. Also his Solu-Medrol for elements of COPD exacerbation and IV fluid No signs symptoms of alcohol withdrawal CTA of the chest is requested and is pending D-dimer is elevated to 1.0. We increased his Lovenox 40 mg to twice daily 03/15 Today patient thinks his breathing is better he still on 55 L oxygen via high flow nasal cannula No diarrhea, good appetite He is able to go for CAT scan today pending results Objective - Vital Signs Vital signs: Vital Signs Temp 97.7 F 03/15/24 09:03 Pulse 64 03/15/24 11:28 Resp 18 03/15/24 11:28 BP 171/97 03/15/24 11:28 Pulse Ox 96 03/15/24 11:31 FiO2 80 03/15/24 11:31 Intake & Output 03/14/24 03/15/24 03/15/24 18:59 06:59 18:59 Intake Total 720 240 250 Output Total 400 900 Balance 320 240 -650 Weight 80.1 kg Intake: IV 10 Invasive Line 2 10 Oral 720 240 240 Output: Urine 400 900 Other: Voiding Method Toilet Toilet Toilet Urinal Urinal Urinal # Voids 1 1 # Bowel Movements 1 - Exam -GENERAL: The patient is alert and oriented x1-2, not in any acute distress. Well developed, well nourished. HEENT: Pupils are round and equally reacting to light. EOMI. No scleral icterus. No conjunctival pallor. Normocephalic, atraumatic. No pharyngeal erythema. No thyromegaly. CARDIOVASCULAR: S1 and S2 present. No murmurs, rubs, or gallops. -PULMONARY: Chest is clear to auscultation, no wheezing , bilateral crepitation, patient mildly tachypneic ABDOMEN: Soft, nontender, nondistended, normoactive bowel sounds. No palpable organomegaly. MUSCULOSKELETAL: No joint swelling or deformity. EXTREMITIES: No cyanosis, clubbing, or pedal edema. NEUROLOGICAL: Gross neurological examination did not reveal any focal deficits. SKIN: No rashes. no petechiae. - Labs CBC & Chem 7: 03/14/24 05:59 03/14/24 05:59 Labs: Abnormal Lab Results - Last 24 Hours (Table) 03/14/24 03/14/24 03/15/24 Range/Units 16:13 19:49 06:06 POC Glucose (mg/dL) 207 H 152 H 251 H (70-110) mg/dL Assessment and Plan Assessment: Bilateral patchy pneumonia, could be related to COVID. bacterial infection f elt less likely Acute COPD exacerbation Acute hypoxic respiratory failure Urine analysis is abnormal suspicious for UTI however patient is asymptomatic Severe metabolic/toxic encephalopathy versus other Acute kidney injury "resolved Substance abuse with urine drug screen is positive for opiates, barbiturates, methamphetamine and marijuana Plan: Continue with high flow nasal cannula Continue with antibiotic, currently on Zithromax and ceftriaxone Follow-up blood culture started on remdesivir Continue with IV fluid Continue with IV steroids, currently on IV Solu-Medrol CT of the chest is ordered Follow-up WBC and creatinine Pulmonary neurology consult Labs and medication were reviewed.. Continue same treatment. Continue with symptomatic treatment. Resume home medication. Monitor labs and vitals. DVT and GI prophylaxis. Further recommendations as per clinical course of the patient DVT prophylaxis: Subcutaneous h Lovenox 40 mg twice daily GI Prophylaxis: Pepcid PT/OT: Pending Prognosis is guarded CODE STATUS. Wants to be DNR/DNI
--- NOTE | 2024-03-15 14:19 | CT ---
EXAMINATION TYPE: CT chest angio for PE CT DLP: 375.7 mGycm, Automated exposure control for dose reduction was used. DATE OF EXAM: 03/15/2024 2:06 PM COMPARISON: 03/14/2024. CLINICAL INDICATION: Male, 64 years old with history of Marked bilateral consolidation; Bilateral con solidation, Covid + TECHNIQUE/CONTRAST: CTA scan of the thorax is performed with IV Contrast, patient injected with 100 mL of Isovue 370, MIP images are created and reviewed these are created on a separate workstation.. FINDINGS: Pulmonary Artery: There is no evidence for a filling defect within the pulmonary vasculature to sugge st acute pulmonary embolism. The pulmonary artery is of normal size. Lungs/Pleura: Trace bilateral pleural effusion. Diffuse airspace opacities glass appearance of the chaz ngs. Airway: Large airways are patent. Heart: Heart is within normal limits for size. Vasculature: No evidence of aortic aneurysm. Mediastinum: AP window lymph node measuring up to 12 mm in short axisr subcarinal measuring up to 10 mm. Musculoskeletal: No acute osseous abnormalities Soft Tissues/lymph nodes: Unremarkable. Lower neck: No significant findings. Upper Abdomen: Diffuse anasarca of the soft tissues. IMPRESSION: 1. No evidence of pulmonary embolism. 2. Diffuse groundglass opacities with trace bilateral pleural effusions and anasarca throughout the l ungs correlate for congestive heart failure versus alveolar proteinosis versus atypical pneumonia. 3. Prominent lymph nodes and mildly enlarged lymph nodes in the mediastinum and likely reactive to #2 . [facility], , 03/15/2024 2:17 PM
--- NOTE | 2024-03-15 14:28 | P.PN ---
Subjective Progress Note Date: 03/15/24 Patient is a 64-year-old white male with past medical history significant for COPD, as needed home O2, chronic ongoing tobacco dependence, prior ventilator dependent respiratory failure, GERD, hypertension, atrial fibrillation, among other things. He does have frequent hospitalizations. Recently, presenting where he becomes altered and has falls. Most recently admitted back in November, for this presentation. According to the patient's he gets this way when he has an infection. He has had previous episodes of pneumonia and UTIs. On his last admission he was delirious requiring multiple doses of antipsychotics and benzodiazepines. He is currently lethargic, not following commands, unable to participate in HPI. Reportedly had multiple falls at home yesterday. According to the ER documentation, patient presented yesterday afternoon with a chief complaint of mental status changes. Reportedly has had multiple falls. He was agitated. He did have a brain CT which did not demonstrate any acute intracranial hemorrhage or mass effect. Urine toxicology screen positive for opiates, tricyclic antidepressants, methamphetamines, benzodiazepines, and marijuana. Serum alcohol less than 10. Patient also noted to be in a bit dyspneic, and was placed on supplemental oxygen which is cur rently at 2 L/min nasal cannula. Chest x-ray showing cardiomegaly, bilateral interstitial infiltrates. Most recent available echocardiogram done November,, and estimating a left ventricular ejection fraction of 55 to 60%. No significant valvular abnormalities noted. NT proBNP 1820. Troponins less than 0.012. EKG: Normal sinus rhythm, 69 bpm, no obvious acute ischemic changes. CBC: WBC count 25.9, hemoglobin 12.2, hematocrit 37.4, platelets 270. He was empirically covered on azithromycin and Rocephin. Viral screen positive for COVID. CMP: Sodium 141, potassium 4.4, chloride 108, serum bicarb 20, BUN 21, creatinine 1.54, glucose 98. Urinalysis positive for leukocyte Estrace. LFTs unremarkable. Ammonia 25. Normal saline infusing at 100 mL/h. Patient also had some abdominal pain in the emergency department. CT abdomen and pelvis did not show any acute bowel obstruction or free air. Some mild nonspecific fluid in the lower abdomen. Dependent opacities in the lungs mostly suggestive of atelectasis, minor groundglass opacities noted in the bases. Afebrile; respiratory rate 20 breaths/min; SpO2 96% on 2 L/min nasal cannula; blood pressure 127/74 mmHg; heart rate 86 bpm. Patient is currently being observed on the medical floor. He is lethargic but will wake up with aggressive verbal/tactile stimuli. Does not readily follow commands. He has received multiple doses of Ativan, total of 4 mg so far. He was reportedly agitated earlier. He does have some wheezing on auscultation. COPD seems to be active. 03/12/2024 the patient is being seen for a follow-up. The patient is i stable and denies having any new complaints. He has been infected with COVID-19 at the patient is obviously in a denial and he thinks that he is negative. Noted several family members are also positive for COVID-19. He is currently on 1.5 L of oxygen by nasal cannula pulse ox 93%. He remains on albuterol HFA, and IV Solu-Medrol 60 mg every 6 hours. He is also utilizing Trelegy Ellipta from home 1 puff every 24 hours. Labs were noted. White cell count was elevated at 21 with a hemoglobin of 11.2 and there is improvement in his white cell count. BUN is 23 with a creatinine of 0.9 and sodium levels at 139 and a bicarb is at 17. LDH was 289 and CRP was at 10.6 and a procalcitonin level is at 1.13. Patient is covered empirically with IV antibiotics. Blood cultures are still pending for now. He remains on IV Rocephin. No altered mentation. 03/13/2024, the patient is respiratory status is decompensated. The patient had progressive worsening his oxygen requirements and he was brought up from 2 L up to 15 L overnight and currently is placed on Airvo at 55 L with FiO2 of 80%. At the same time, there is significant worsening in the chest x-ray findings with development of diffuse bilateral pulm infiltrates and interval worsening of the chest x-ray findings. The patient states that he does not want to get intubated at all show dizziness. Has good hours. Meanwhile, I think there is progression of his pneumonia. This is most likely viral pneumonia/COVID-19 pneumonia. Superinfection is felt to be less likely. The patient is currently covered with IV Rocephin. He is also on Lovenox 40 mg subcu for DVT prophylaxis. The white cell count today is at 19.6 lingo 11.8 and platelet count 222. D-dimer is 1.03. Rest of the electrolytes show a component of metabolic acidosis with a gap of 14 and an serum bicarb of 19. Sodium levels at 141. He is awake and alert and communicating. He is admitting to have some worsening shortness of breath. Yet his breathing is not significantly labored. No altered mentation. No confusion. Having some limited diarrhea. On 03/14/2024, the patient is being seen for a follow-up. The patient remains on Airvo and this morning the patient is on a FiO2 of 80% with a flow of 55 L/min. Repeat chest x-ray was done today and again it showed diffuse bilateral pulmonary infiltrates and the findings are essentially unchanged compared to yesterday. The diffuse airspace disease is essentially stable. Meanwhile, the patient is having some dyspnea even at rest. He is able to complete full sentences. No significant cough or sputum production. Examination is crackles in the mid lower lung base bilaterally. Once this is a 10 with a hemoglobin of 11.9. BUN 17 with a creatinine of 0.6 and a sodium of is at 142. Serum bicarb is at 20. LFTs are all within normal limits. The patient is currently on IV Solu-Medrol. The patient is on Trelegy Ellipta 1 puff a day. The patient on Lovenox 40 mg subcu twice a day. He was started on remdesivir and is on day #2 of treatment. No altered mentation. No diarrhea for now. 03/15/2024, the patient is feeling slightly better compared to yesterday. He remains on Airvo. Pulse ox is improved and the patient is currently pulse ox around 96% while being on Airvo with a flow of 55 L and FiO2 of 80%. Cough is less frequent as compared to yesterday. No altered mentation. Reports some clinical improvement in the his breathing seems to be less stable compared to yesterday. Labs from today still pending. Remains on remdesivir day #3. Remains on IV Solu-Medrol. Rest of the medications remain unchanged. He is afebrile. He is on Lovenox for DVT prophylaxis. He is utilizing Trelegy Ellipta from home and albuterol rescue inhaler on as-needed basis.CT scan of the chest also completed today and it showed diffuse groundglass bilateral pulmonary filtrates consistent with COVID-19 related pneumonia. CHF is felt to be less likely. Small bilateral pleural effusions. Prominent lymph nodes within the mediastinum, likely reactive. No evidence of any pulmonary embolism. Objective - Vital Signs Vital signs: Vital Signs Temp 97.7 F 03/15/24 09:03 Pulse 87 03/15/24 09:03 Resp 18 03/15/24 09:03 BP 180/64 03/15/24 09:03 Pulse Ox 96 03/15/24 09:03 FiO2 80 03/15/24 08:27 Intake & Output 03/14/24 03/15/24 03/15/24 18:59 06:59 18:59 Intake Total 720 240 240 Output Total 400 900 Balance 320 240 -660 Weight 80.1 kg Intake: Oral 720 240 240 Output: Urine 400 900 Other: Voiding Method Toilet Toilet Toilet Urinal Urinal Urinal # Voids 1 1 # Bowel Movements 1 - Exam GENERAL EXAM: Lethargic 64-year-old male, awake and alert and comfortable, currently on Airvo 55 L and FiO2 of 80%, slightly labored breathing. HEAD: Normocephalic and atraumatic EYES: Normal reaction of pupils, equal size. NOSE: Clear with pink turbinates. THROAT: No erythema or exudates. NECK: No masses, no JVD. CHEST: No chest wall deformity. LUNGS: Equal air entry with expiratory wheezes heard bilaterally and throughout. No conversational dyspnea or accessory muscle use. Occasional congested cough noted. The patient has crackles in the mid and lower lung interiano bilaterally. CVS: S1 and S2 normal with no audible murmur, regular rhythm. No extra heart sounds ABDOMEN: No hepatosplenomegaly, active bowel sounds, no guarding or rigidity. SPINE: No scoliosis or deformity SKIN: No rashes CENTRAL NERVOUS SYSTEM: No focal deficits, tone is normal in all 4 extremities. EXTREMITIES: There is no peripheral edema, clubbing, or cyanosis. Peripheral pulses are intact. - Labs CBC & Chem 7: 03/14/24 05:59 03/14/24 05:59 Labs: Abnormal Lab Results - Last 24 Hours (Table) 03/14/24 03/14/24 03/14/24 Range/Units 11:31 16:13 19:49 POC Glucose (mg/dL) 142 H 207 H 152 H (70-110) mg/dL 03/15/24 Range/Units 06:06 POC Glucose (mg/dL) 251 H (70-110) mg/dL Assessment and Plan Assessment: Acute hypoxic respiratory failure and the patient is currently on Airvo, 55 L with FiO2 of 80%. This is attributed to COVID-19 related pneumonia with cardiopulmonary complaints. Bilateral pneumonia with extensive pulmonary infiltrates and consolidation with obvious interval worsening secondary to COVID-19/viral pneumonia. Superinfection with bacteria is less likely Acute COPD exacerbation, secondary to acute COVID infection/COVID-pneumonia Polysubstance abuse, urine toxicology screen positive for methamphetamines, benzodiazepines, opiates, TCAs, marijuana Altered mental status, suspect secondary acute metabolic encephalopathy and above Acute leukocytosis Acute kidney injury, improved and the creatinine is normalized Chronic obstructive pulmonary disease Chronic ongoing tobacco dependence History of ventilator dependent respiratory failure History of paroxysmal atrial fibrillation History of hypertension History of GERD Plan: Clinically stable and he states that he is less labored in terms of his breathing less short of breath compared to yesterday. FiO2 is up to 96% while being on Airvo 55 L with FiO2 of 80%. Overall respiratory status and oxygenation Chest x-ray showing bilateral consolidation and airspace disease. Repeat chest x-ray is to be obtained tomorrow Will keep the patient on Airvo for now at the same settings Continue IV Solu-Medrol Continue remdesivir day # 3 Rocephin has been discontinued In terms of his COPD, we will continue on the Trelegy inhaler from home inhaler and bronchodilators [id number] Nonspecific elevation of the procalcitonin, probably due to his underlying acute kidney injury, will obtain repeat levels CAT scan of the abdomen was negative D-dimer is mildly elevated and the patient is currently on Lovenox Mental status is adequate CT scan of the chest was also reviewed. The patient will placed on IV fluids at KVO and he will be given a dose of Lasix 40 mg IV push. Will follow
[2024-03-15 16:37] LABS: Glucose,Whole Blood 228 mg/dL (70-110)
[2024-03-15] MEDS: FUROSEMIDE 10 MG/ML 4 ML VIAL IV SCH (17:00)
[2024-03-15 20:34] LABS: Glucose,Whole Blood 157 mg/dL (70-110)
[2024-03-16 06:10] LABS: Glucose,Whole Blood 174 mg/dL (70-110)
--- NOTE | 2024-03-16 07:14 | XR ---
EXAMINATION TYPE: XR chest 1V DATE OF EXAM: 03/16/2024 COMPARISON: 03/14/2024 HISTORY: Follow-up pneumonia TECHNIQUE: Single frontal view of the chest is obtained. FINDINGS: There is been significant interval improvement with decreased degree of airspace consolidation in bot h lungs. A diffuse interstitial process persists. There is no pleural effusion or pneumothorax. Postsurgical changes of cervical fusion are identified. IMPRESSION: Significant improvement in the acute cardiopulmonary process as described above [facility], , 03/16/2024 7:12 AM
[2024-03-16 07:18] LABS: Basophils % (A) 0 %; Eosinophils % (A) 0 %; HCT 35.9 % (39.0-53.0); HGB 11.5 gm/dL (13.0-17.5); Hypochromasia Slight; Lymphocytes # (A) 0.4 k/uL (1.0-4.8); Lymphocytes % (A) 4 %; MCH 27.6 pg (25.0-35.0); MCHC 31.9 g/dL (31.0-37.0); MCV 86.6 fL (80.0-100.0); Mean Platelet Volume 9.9; Monocytes # (A) 0.4 k/uL (0-1.0); Monocytes % (A) 5 %; Neutrophils # (A) 7.6 k/uL (1.3-7.7); Neutrophils % (A) 89 %; Platelet Count 181 k/uL (150-450); RBC 4.15 m/uL (4.30-5.90); RDW 14.8 % (11.5-15.5); WBC 8.5 k/uL (3.8-10.6)
[2024-03-16 07:30] LABS: African American GFR (CKD) >90 (>60 ml/min/1.73 sqM); Anion Gap 6 mmol/L; Blood Urea Nitrogen 24 mg/dL (9-20); Calcium 8.3 mg/dL (8.4-10.2); Carbon Dioxide 29 mmol/L (22-30); Chloride 105 mmol/L (98-107); Glucose 149 mg/dL (74-99); Non-African American GFR(CKD) >90 (>60 ml/min/1.73 sqM); Sodium 140 mmol/L (137-145)
[2024-03-16 07:53] LABS: Potassium 2.7 mmol/L (3.5-5.1)
[2024-03-16] MEDS ORDERED: Potassium Replacement Protocol 1 EACH MISC MISCELLANE PRN (08:26)
[2024-03-16] MEDS: POTASSIUM CHLORIDE ER 20 MEQ TAB.ER PO SCH ×3 (08:45→23:31)
[2024-03-16] MEDS: FUROSEMIDE 10 MG/ML 4 ML VIAL IV SCH (09:52)
[2024-03-16 11:31] LABS: Glucose,Whole Blood 138 mg/dL (70-110)
[2024-03-16] MEDS ORDERED: Magnesium Replacement Protocol 1 EACH MISC MISCELLANE PRN (12:11)
--- NOTE | 2024-03-16 12:27 | P.PN ---
Subjective Progress Note Date: 03/16/24 Patient is a 64-year-old white male with past medical history significant for COPD, as needed home O2, chronic ongoing tobacco dependence, prior ventilator dependent respiratory failure, GERD, hypertension, atrial fibrillation, among other things. He does have frequent hospitalizations. Recently, presenting where he becomes altered and has falls. Most recently admitted back in November, for this presentation. According to the patient's he gets this way when he has an infection. He has had previous episodes of pneumonia and UTIs. On his last admission he was delirious requiring multiple doses of antipsychotics and benzodiazepines. He is currently lethargic, not following commands, unable to participate in HPI. Reportedly had multiple falls at home yesterday. According to the ER documentation, patient presented yesterday afternoon with a chief complaint of mental status changes. Reportedly has had multiple falls. He was agitated. He did have a brain CT which did not demonstrate any acute intracranial hemorrhage or mass effect. Urine toxicology screen positive for opiates, tricyclic antidepressants, methamphetamines, benzodiazepines, and marijuana. Serum alcohol less than 10. Patient also noted to be in a bit dyspneic, and was placed on supplemental oxygen which is cur rently at 2 L/min nasal cannula. Chest x-ray showing cardiomegaly, bilateral interstitial infiltrates. Most recent available echocardiogram done November,, and estimating a left ventricular ejection fraction of 55 to 60%. No significant valvular abnormalities noted. NT proBNP 1820. Troponins less than 0.012. EKG: Normal sinus rhythm, 69 bpm, no obvious acute ischemic changes. CBC: WBC count 25.9, hemoglobin 12.2, hematocrit 37.4, platelets 270. He was empirically covered on azithromycin and Rocephin. Viral screen positive for COVID. CMP: Sodium 141, potassium 4.4, chloride 108, serum bicarb 20, BUN 21, creatinine 1.54, glucose 98. Urinalysis positive for leukocyte Estrace. LFTs unremarkable. Ammonia 25. Normal saline infusing at 100 mL/h. Patient also had some abdominal pain in the emergency department. CT abdomen and pelvis did not show any acute bowel obstruction or free air. Some mild nonspecific fluid in the lower abdomen. Dependent opacities in the lungs mostly suggestive of atelectasis, minor groundglass opacities noted in the bases. Afebrile; respiratory rate 20 breaths/min; SpO2 96% on 2 L/min nasal cannula; blood pressure 127/74 mmHg; heart rate 86 bpm. Patient is currently being observed on the medical floor. He is lethargic but will wake up with aggressive verbal/tactile stimuli. Does not readily follow commands. He has received multiple doses of Ativan, total of 4 mg so far. He was reportedly agitated earlier. He does have some wheezing on auscultation. COPD seems to be active. 03/12/2024 the patient is being seen for a follow-up. The patient is i stable and denies having any new complaints. He has been infected with COVID-19 at the patient is obviously in a denial and he thinks that he is negative. Noted several family members are also positive for COVID-19. He is currently on 1.5 L of oxygen by nasal cannula pulse ox 93%. He remains on albuterol HFA, and IV Solu-Medrol 60 mg every 6 hours. He is also utilizing Trelegy Ellipta from home 1 puff every 24 hours. Labs were noted. White cell count was elevated at 21 with a hemoglobin of 11.2 and there is improvement in his white cell count. BUN is 23 with a creatinine of 0.9 and sodium levels at 139 and a bicarb is at 17. LDH was 289 and CRP was at 10.6 and a procalcitonin level is at 1.13. Patient is covered empirically with IV antibiotics. Blood cultures are still pending for now. He remains on IV Rocephin. No altered mentation. 03/13/2024, the patient is respiratory status is decompensated. The patient had progressive worsening his oxygen requirements and he was brought up from 2 L up to 15 L overnight and currently is placed on Airvo at 55 L with FiO2 of 80%. At the same time, there is significant worsening in the chest x-ray findings with development of diffuse bilateral pulm infiltrates and interval worsening of the chest x-ray findings. The patient states that he does not want to get intubated at all show dizziness. Has good hours. Meanwhile, I think there is progression of his pneumonia. This is most likely viral pneumonia/COVID-19 pneumonia. Superinfection is felt to be less likely. The patient is currently covered with IV Rocephin. He is also on Lovenox 40 mg subcu for DVT prophylaxis. The white cell count today is at 19.6 lingo 11.8 and platelet count 222. D-dimer is 1.03. Rest of the electrolytes show a component of metabolic acidosis with a gap of 14 and an serum bicarb of 19. Sodium levels at 141. He is awake and alert and communicating. He is admitting to have some worsening shortness of breath. Yet his breathing is not significantly labored. No altered mentation. No confusion. Having some limited diarrhea. On 03/14/2024, the patient is being seen for a follow-up. The patient remains on Airvo and this morning the patient is on a FiO2 of 80% with a flow of 55 L/min. Repeat chest x-ray was done today and again it showed diffuse bilateral pulmonary infiltrates and the findings are essentially unchanged compared to yesterday. The diffuse airspace disease is essentially stable. Meanwhile, the patient is having some dyspnea even at rest. He is able to complete full sentences. No significant cough or sputum production. Examination is crackles in the mid lower lung base bilaterally. Once this is a 10 with a hemoglobin of 11.9. BUN 17 with a creatinine of 0.6 and a sodium of is at 142. Serum bicarb is at 20. LFTs are all within normal limits. The patient is currently on IV Solu-Medrol. The patient is on Trelegy Ellipta 1 puff a day. The patient on Lovenox 40 mg subcu twice a day. He was started on remdesivir and is on day #2 of treatment. No altered mentation. No diarrhea for now. 03/15/2024, the patient is feeling slightly better compared to yesterday. He remains on Airvo. Pulse ox is improved and the patient is currently pulse ox around 96% while being on Airvo with a flow of 55 L and FiO2 of 80%. Cough is less frequent as compared to yesterday. No altered mentation. Reports some clinical improvement in the his breathing seems to be less stable compared to yesterday. Labs from today still pending. Remains on remdesivir day #3. Remains on IV Solu-Medrol. Rest of the medications remain unchanged. He is afebrile. He is on Lovenox for DVT prophylaxis. He is utilizing Trelegy Ellipta from home and albuterol rescue inhaler on as-needed basis.CT scan of the chest also completed today and it showed diffuse groundglass bilateral pulmonary filtrates consistent with COVID-19 related pneumonia. CHF is felt to be less likely. Small bilateral pleural effusions. Prominent lymph nodes within the mediastinum, likely reactive. No evidence of any pulmonary embolism. On 03/16/2024, the patient is feeling better. He seems to be less short of breath. We were able to wean down FiO2 and he is currently down to 60% with a flow of 55 L while being on Airvo. Seems to be less short of breath for now. The chest x-ray was repeated this morning and the patient has some interval improvement in the bilateral pulmonary infiltrates and there is improved aeration. The patient remains on remdesivir day #4. The patient remains on IV Solu-Medrol. He remains on Trelegy Ellipta. Albuterol HFA [id number]. The white cell count of 8.5 with a hemoglobin of 11.5, potassium level of 2.1 and sodium levels at 140 with a BUN of 24 and a creatinine of 0.69. No other new complaints otherwise for now. Objective - Vital Signs Vital signs: Vital Signs Temp 98.0 F 03/16/24 08:44 Pulse 73 03/16/24 08:44 Resp 18 03/16/24 08:44 BP 173/102 03/16/24 08:44 Pulse Ox 100 03/16/24 08:44 FiO2 60 03/16/24 08:48 Intake & Output 03/15/24 03/16/24 03/16/24 18:59 06:59 18:59 Intake Total 1520 20 Output Total 3750 3975 Balance -2230 -3950 Weight 77.2 kg Intake: IV 20 20 Invasive Line 2 20 20 Oral 1500 Output: Urine 3750 3975 Other: Voiding Method Toilet Toilet Urinal Urinal - Exam GENERAL EXAM: Lethargic 64-year-old male, awake and alert and comfortable, currently on Airvo 55 L and FiO2 of 60 %, breathing is unlabored. HEAD: Normocephalic and atraumatic EYES: Normal reaction of pupils, equal size. NOSE: Clear with pink turbinates. THROAT: No erythema or exudates. NECK: No masses, no JVD. CHEST: No chest wall deformity. LUNGS: Equal air entry with expiratory wheezes heard bilaterally and throughout. No conversational dyspnea or accessory muscle use. Occasional congested cough noted. The patient has crackles in the mid and lower lung interiano bilaterally. CVS: S1 and S2 normal with no audible murmur, regular rhythm. No extra heart sounds ABDOMEN: No hepatosplenomegaly, active bowel sounds, no guarding or rigidity. SPINE: No scoliosis or deformity SKIN: No rashes CENTRAL NERVOUS SYSTEM: No focal deficits, tone is normal in all 4 extremities. EXTREMITIES: There is no peripheral edema, clubbing, or cyanosis. Peripheral pulses are intact. - Labs CBC & Chem 7: 03/16/24 06:25 03/16/24 06:25 Labs: Abnormal Lab Results - Last 24 Hours (Table) 03/15/24 03/15/24 03/16/24 Range/Units 16:34 20:26 06:05 RBC (4.30-5.90) m/uL Hgb (13.0-17.5) gm/dL Hct (39.0-53.0) % Lymphocytes # (1.0-4.8) k/uL Potassium (3.5-5.1) mmol/L BUN (9-20) mg/dL Glucose (74-99) mg/dL POC Glucose (mg/dL) 228 H 157 H 174 H (70-110) mg/dL Calcium (8.4-10.2) mg/dL 03/16/24 03/16/24 Range/Units 06:25 06:25 RBC 4.15 L (4.30-5.90) m/uL Hgb 11.5 L (13.0-17.5) gm/dL Hct 35.9 L (39.0-53.0) % Lymphocytes # 0.4 L (1.0-4.8) k/uL Potassium 2.7 L* (3.5-5.1) mmol/L BUN 24 H (9-20) mg/dL Glucose 149 H (74-99) mg/dL POC Glucose (mg/dL) (70-110) mg/dL Calcium 8.3 L (8.4-10.2) mg/dL Microbiology - Last 24 Hours (Table) 03/10/24 19:32 Blood Culture - Final Blood Assessment and Plan Assessment: Acute hypoxic respiratory failure and the patient is currently on Airvo, 55 L with FiO2 of 60%. This is attributed to COVID-19 related pneumonia with cardiopulmonary complaints. Clinically improving. Oxygenation is improving. Chest x-ray is also improving. Bilateral pneumonia with extensive pulmonary infiltrates and consolidation with obvious interval worsening secondary to COVID-19/viral pneumonia. Superinfection with bacteria is less likely Acute COPD exacerbation, secondary to acute COVID infection/COVID-pneumonia Polysubstance abuse, urine toxicology screen positive for methamphetamines, benzodiazepines, opiates, TCAs, marijuana Altered mental status, suspect secondary acute metabolic encephalopathy and above Acute leukocytosis Acute kidney injury, improved and the creatinine is normalized Chronic obstructive pulmonary disease Chronic ongoing tobacco dependence History of ventilator dependent respiratory failure History of paroxysmal atrial fibrillation History of hypertension History of GERD Plan: Clinically improving, chest x-ray findings are better and oxygenation is also improving Overall respiratory status and oxygenation Chest x-ray showing bilateral consolidation and airspace disease. Repeat chest x-ray is to be obtained tomorrow Will keep the patient on Airvo and I will wean down the FiO2 Continue IV Solu-Medrol Continue remdesivir day # 4 Rocephin has been discontinued In terms of his COPD, we will continue on the Trelegy inhaler from home inhaler and bronchodilators [id number] Nonspecific elevation of the procalcitonin, probably due to his underlying acute kidney injury, will obtain repeat levels CAT scan of the abdomen was negative D-dimer is mildly elevated and the patient is currently on Lovenox Mental status is adequate CT scan of the chest was also reviewed. The patient will placed on IV fluids at KVO and he will be given a dose of Lasix 40 mg IV push. Will give another dose of Lasix today Repeat potassium and replace Will follow
[2024-03-16 14:20] LABS: Magnesium 1.9 mg/dL (1.6-2.3); Potassium 2.8 mmol/L (3.5-5.1)
[2024-03-16] MEDS: MAGNESIUM SULFATE-D5W PMX 1 GM in DEXTROSE/WATER 1 100ML.BAG IVPB ONE (14:48)
[2024-03-16] MEDS: hydrALAZINE HCL 25 MG TAB PO PRN (14:50)
--- NOTE | 2024-03-16 15:13 | P.PN ---
Subjective This is a pleasant 64 years old male who presents from home for altered mental status. Patient currently is poor historian and cannot provide detailed information. Patient cannot tell me his name, he is confused and disoriented to time place and person, he could not tell where he is at, he thought this 2020 without month or date. He thought it is a trump as the president. Patient could not tell why he came to the hospital. But when I ask him if he has pain he says in his back. He denies chest pain or abdominal pain. He looks contracted and abdominal muscles tense. However CT of the abdomen pelvis done in the emergency room showing no bowel obstruction. As per records patient would have altered mental status whenever he has UTI per family. On admission he is tachycardic around 101, he is saturating 95% on 2 L. No fever. Labs show a leukocytosis of 25.9, hemoglobin 12.2, creatinine 1.5 with baseline about 0.8 Urine drug screen is positive for opiates, barbiturates, methamphetamine and marijuana COVID test is positive Chest x-ray reviewed by myself showing bilateral multifocal opacities There is no EKG CT of the brain is negative for acute process CT of the abdomen and pelvis reviewed showing no small bowel obstruction or free air 03/12 Patient breathing quietly however he still significantly hypoxic requiring heart rate of oxygen 6 L and during the evening went up to 10 L He is mildly confused he knows he is in [facility]. He thought his 2022 and he could not tell the president Chest x-ray showing bilateral multifocal infiltrate COVID test is positive as well as increased LDH and CRP Patient pro- Calcitonin is also elevated at 1.31 indicating possible bacterial superinfection and currently covered with Rocephin Also receiving steroids with IV Solu-Medrol and gentle hydration Kidney function improved. Leukocytosis trending down to 21,000. 03/13 Patient oxygen requirements increased significantly overnight up to 15 L/min, later on he required high-dose nasal cannula at 55 L/min Repeat chest x-ray shows worsening bilateral infiltrate, I reviewed the chest x- ray by myself and agree with it Patient has mildly increased D-dimer from 0.25 up to 1.0 in 2 days. He is on Lovenox 40 mg daily we will going to increase it to twice daily. Also CTA of the chest is ordered Staff and I discussed with the patient in details, we discussed CODE STATUS with him after explaining risk and benefits, he states that he does not want any intubation as he had bad experience with it previously that he is adamant for no intubation and also he declines resuscitation like chest compression electric shock or other measures. Patient adamant he wants to be DNR. He understands risk and benefits are explained to him in details. He understands that if no intubation and worsening hypoxia he went to go to hospice/comfort care and he is agreeable to that. Based on my evaluation patient has capacity make medical decision he is fully awake and oriented to time place person, he has insight. Patient actually sitting at the bedside and despite his higher oxygen requirement he looks mild to moderately tachypneic while at rest. He can talk freely with no difficulties. He denies chest pain, no other complaint. Patient was transferred to select unit for higher level of care. Patient states that we can talk to his about his health issue if needed 03/14 Patient sitting in bed edge, with mild respiratory distress. He is mildly tachypneic. Denies chest pain or coughing. He talks freely. His oxygen requirement exceeds yesterday and this morning he is on high flow nasal cannula at 55 L/min. No other new specific complaints Most likely patient respiratory infection is due to viral infection with COVID, bacterial super infection is also suspected but less likely. Actually his white cell count normalized today from 21,000 down to 10.3, inflammatory markers elevated. Patient started on remdesivir today. He is also on Zithromax and ceftriaxone. Also his Solu-Medrol for elements of COPD exacerbation and IV fluid No signs symptoms of alcohol withdrawal CTA of the chest is requested and is pending D-dimer is elevated to 1.0. We increased his Lovenox 40 mg to twice daily 03/15 Today patient thinks his breathing is better he still on 55 L oxygen via high flow nasal cannula No diarrhea, good appetite He is able to go for CAT scan today pending results 1020 Patient still slightly tachypneic in his room. He is in droplet isolation. He still on high flow nasal cannula at 55 L/min However patient feels much better after he peed a lot from 1 dose of IV Lasix. Repeat chest x-ray showing improvement CT of the chest also done and reviewed the case showing bilateral groundglass opacity consistent with his COVID infection Severe low potassium and magnesium being replaced Discussed the case and plan with the patient and he is agreeable Review of systems CONSTITUTIONAL: No fever, no malaise, no fatigue. GASTROINTESTINAL: No diarrhea, no nausea, no vomiting, no abdominal pain. Normoactive bowel sounds. NEUROLOGICAL: No headaches, no weakness, no numbness. HEMATOLOGICAL: Denies any bleeding or petechiae. GENITOURINARY: Denies any burning micturition, frequency, or urgency. MUSCULOSKELETAL/RHEUMATOLOGICAL: Denies any joint pain, swelling, or any muscle pain. ENDOCRINE: Denies any polyuria or polydipsia. Active Medications Generic Name Dose Route Start Last Admin Trade Name Freq PRN Reason Stop Dose Admin Acetaminophen 650 mg 03/10/24 23:52 03/16/24 09:52 Acetaminophen Tab 325 Mg Tab PO 650 mg Q6HR PRN Administration Fever and/ or Pain Hydrocodone Bitart/Acetaminophen 1 each 03/12/24 10:36 03/16/24 11:41 Hydrocodone/Apap 7.5-325mg 1 Each Tab PO 1 each TID PRN Administration Pain Albuterol Sulfate 2 puff 03/11/24 08:00 03/16/24 11:29 Albuterol Hfa Inhaler INHALATION Not Given RT-QID RAGHU Alprazolam 0.5 mg 03/14/24 11:47 03/16/24 06:41 Alprazolam 0.5 Mg Tab PO 0.5 mg BID PRN Administration Anxiety Baclofen 20 mg 03/10/24 19:07 03/16/24 11:41 Baclofen 10 Mg Tab PO 20 mg TID PRN Administration Pain Citalopram Hydrobromide 40 mg 03/11/24 09:00 03/16/24 06:41 Citalopram Hydrobromide 20 Mg Tab PO 40 mg DAILY RAGHU Administration Cyanocobalamin 1,000 mcg 03/14/24 09:00 03/16/24 08:46 Cyanocobalamin 500 Mcg Tab PO 1,000 mcg DAILY RAGHU Administration Dextrose/Water 25 ml 03/11/24 09:10 Dextrose 50% Syringe 50 Ml IVP PER PROTOCOL PRN Hypoglycemia Protocol Dextrose/Water 50 ml 03/11/24 09:10 Dextrose 50% Syringe 50 Ml IVP PER PROTOCOL PRN Hypoglycemia Protocol Enoxaparin Sodium 40 mg 03/13/24 09:00 03/16/24 08:46 Enoxaparin 40 Mg/0.4 Ml Syringe SQ 40 mg BID RAGHU Administration Famotidine 20 mg 03/12/24 21:00 03/16/24 08:45 Famotidine 20 Mg Tab PO 20 mg BID RAGHU Administration Folic Acid 1 mg 03/13/24 12:15 03/16/24 08:45 Folic Acid 1 Mg Tab PO 1 mg DAILY RAGHU Administration Haloperidol Lactate 3 mg 03/11/24 07:23 03/11/24 07:32 Haloperidol Lactate 5 Mg/Ml 1 Ml Vial IM 3 mg Q6HR PRN Administration Agitation or Acute Psychosis Hydralazine HCl 25 mg 03/16/24 12:11 03/16/24 14:50 Hydralazine Hcl 25 Mg Tab PO 25 mg QID PRN Administration Blood Pressure - High Sodium Chloride 1,000 mls @ 10 mls/hr 03/10/24 19:15 03/16/24 11:02 Saline 0.9% IV Not Given .Q24H RAGHU Remdesivir 100 mg/ Sodium 250 mls @ 250 mls/hr 03/14/24 09:00 03/16/24 09:52 Chloride IVPB 03/17/24 09:59 250 mls/hr DAILY RAGHU Administration Magnesium Sulfate/Dextrose 1 100 mls @ 100 mls/hr 03/16/24 14:28 03/16/24 14:48 gm/ IV Solution IVPB 03/16/24 15:27 100 mls/hr ONCE ONE Administration Protocol Insulin Aspart 0 unit 03/11/24 12:30 03/16/24 11:55 Insulin Aspart (Novolog) 100 Unit/Ml Vial SQ Not Given [facility]S [facility] Protocol Methylprednisolone Sodium Succinate 60 mg 03/11/24 06:00 03/16/24 11:40 Methylprednisolone Sod Succi 125 Mg/2 Ml Vial IV 60 mg Q6HR RAGHU Administration Miscellaneous Information 1 each 03/10/24 19:05 Pneumonia Protocol Utilized 1 Each Misc PO ONCE PRN Per Protocol Miscellaneous Information 1 each 03/16/24 08:26 Potassium Replacement Protocol 1 Each Misc MISCELLANE DAILY PRN Per Protocol Protocol Miscellaneous Information 1 each 03/16/24 12:11 Magnesium Replacement Protocol 1 Each Misc MISCELLANE DAILY PRN Per Protocol Protocol Trelegy Ellipta 1 each 03/12/24 10:00 03/16/24 08:33 Inhaler INHALATION 1 each RT-DAILY RAGHU Administration Ondansetron HCl 4 mg 03/13/24 18:15 03/13/24 18:26 Ondansetron 4 Mg/2 Ml Vial IVP 4 mg Q6HR PRN Administration Nausea And Vomiting Potassium Chloride 20 meq 03/16/24 15:00 03/16/24 14:48 Potassium Chloride Er 20 Meq Tab.Er PO 03/16/24 17:01 20 meq Q1HR RAGHU Administration Protocol Sodium Chloride 2 spray 03/13/24 11:24 03/13/24 17:00 Sodium Chloride 0.65% Nasal [place] 44 Ml Btl NASAL 2 spray QID PRN Administration Congestion Objective - Vital Signs Vital signs: Vital Signs Temp 98.2 F 03/16/24 14:46 Pulse 63 03/16/24 14:46 Resp 18 03/16/24 14:46 BP 159/78 03/16/24 11:38 Pulse Ox 100 03/16/24 14:46 FiO2 60 03/16/24 11:26 Intake & Output 03/15/24 03/16/24 03/16/24 18:59 06:59 18:59 Intake Total 1520 20 1030 Output Total 3750 3975 1600 Balance -9001 -7688 -059 Weight 77.2 kg Intake: IV 20 20 10 Invasive Line 2 20 20 10 Oral 1500 1020 Output: Urine 3750 3975 1600 Other: Voiding Method Toilet Toilet Urinal Urinal - Exam -GENERAL: The patient is alert and oriented x1-2, not in any acute distress. Well developed, well nourished. HEENT: Pupils are round and equally reacting to light. EOMI. No scleral icterus. No conjunctival pallor. Normocephalic, atraumatic. No pharyngeal erythema. No thyromegaly. CARDIOVASCULAR: S1 and S2 present. No murmurs, rubs, or gallops. -PULMONARY: Chest is clear to auscultation, no wheezing , bilateral crepitation, patient mildly tachypneic ABDOMEN: Soft, nontender, nondistended, normoactive bowel sounds. No palpable organomegaly. MUSCULOSKELETAL: No joint swelling or deformity. EXTREMITIES: No cyanosis, clubbing, or pedal edema. NEUROLOGICAL: Gross neurological examination did not reveal any focal deficits. SKIN: No rashes. no petechiae. - Labs CBC & Chem 7: 03/16/24 06:25 03/16/24 13:54 Labs: Abnormal Lab Results - Last 24 Hours (Table) 03/15/24 03/15/24 03/16/24 Range/Units 16:34 20:26 06:05 RBC (4.30-5.90) m/uL Hgb (13.0-17.5) gm/dL Hct (39.0-53.0) % Lymphocytes # (1.0-4.8) k/uL Potassium (3.5-5.1) mmol/L BUN (9-20) mg/dL Glucose (74-99) mg/dL POC Glucose (mg/dL) 228 H 157 H 174 H (70-110) mg/dL Calcium (8.4-10.2) mg/dL 03/16/24 03/16/24 03/16/24 Range/Units 06:25 06:25 11:28 RBC 4.15 L (4.30-5.90) m/uL Hgb 11.5 L (13.0-17.5) gm/dL Hct 35.9 L (39.0-53.0) % Lymphocytes # 0.4 L (1.0-4.8) k/uL Potassium 2.7 L* (3.5-5.1) mmol/L BUN 24 H (9-20) mg/dL Glucose 149 H (74-99) mg/dL POC Glucose (mg/dL) 138 H (70-110) mg/dL Calcium 8.3 L (8.4-10.2) mg/dL 03/16/24 Range/Units 13:54 RBC (4.30-5.90) m/uL Hgb (13.0-17.5) gm/dL Hct (39.0-53.0) % Lymphocytes # (1.0-4.8) k/uL Potassium 2.8 L (3.5-5.1) mmol/L BUN (9-20) mg/dL Glucose (74-99) mg/dL POC Glucose (mg/dL) (70-110) mg/dL Calcium (8.4-10.2) mg/dL Microbiology - Last 24 Hours (Table) 03/10/24 19:32 Blood Culture - Final Blood Assessment and Plan Assessment: Bilateral patchy pneumonia, could be related to COVID. bacterial infection felt less likely Acute COPD exacerbation Acute hypoxic respiratory failure Urine analysis is abnormal suspicious for UTI however patient is asymptomatic Severe metabolic/toxic encephalopathy versus other Acute kidney injury "resolved Substance abuse with urine drug screen is positive for opiates, barbiturates, methamphetamine and marijuana Plan: Continue with high flow nasal cannula Continue with antibiotic, currently on Zithromax and ceftriaxone Follow-up blood culture started on remdesivir Continue with IV fluid Continue with IV steroids, currently on IV Solu-Medrol CT of the chest is ordered Follow-up WBC and creatinine Pulmonary neurology consult Labs and medication were reviewed.. Continue same treatment. Continue with symptomatic treatment. Resume home medication. Monitor labs and vitals. DVT and GI prophylaxis. Further recommendations as per clinical course of the patient DVT prophylaxis: Subcutaneous h Lovenox 40 mg twice daily GI Prophylaxis: Pepcid PT/OT: Pending Prognosis is guarded CODE STATUS. Wants to be DNR/DNI
[2024-03-16 16:36] LABS: Glucose,Whole Blood 230 mg/dL (70-110)
[2024-03-16 20:42] LABS: Glucose,Whole Blood 239 mg/dL (70-110)
[2024-03-17 06:32] LABS: Glucose,Whole Blood 204 mg/dL (70-110)
[2024-03-17 06:49] LABS: African American GFR (CKD) >90 (>60 ml/min/1.73 sqM); Anion Gap 4 mmol/L; Blood Urea Nitrogen 28 mg/dL (9-20); Calcium 8.2 mg/dL (8.4-10.2); Carbon Dioxide 33 mmol/L (22-30); Chloride 104 mmol/L (98-107); Glucose 159 mg/dL (74-99); Magnesium 2.3 mg/dL (1.6-2.3); Non-African American GFR(CKD) >90 (>60 ml/min/1.73 sqM); Potassium 3.8 mmol/L (3.5-5.1); Sodium 141 mmol/L (137-145)
[2024-03-17 09:33] VITALS: BMI 24.4
[2024-03-17 11:47] LABS: Glucose,Whole Blood 175 mg/dL (70-110)
--- NOTE | 2024-03-17 14:45 | P.PN ---
Subjective Progress Note Date: 03/17/24 Principal diagnosis: Acute hypoxic respiratory failure secondary to acute COVID-19 pneumonia Patient is a 64-year-old white male with past medical history significant for COPD, as needed home O2, chronic ongoing tobacco dependence, prior ventilator dependent respiratory failure, GERD, hypertension, atrial fibrillation, among other things. He does have frequent hospitalizations. Recently, presenting where he becomes altered and has falls. Most recently admitted back in November, for this presentation. According to the patient's he gets this way when he has an infection. He has had previous episodes of pneumonia and UTIs. On his last admission he was delirious requiring multiple doses of antipsychotics and benzodiazepines. He is currently lethargic, not following commands, unable to participate in HPI. Reportedly had multiple falls at home yesterday. According to the ER documentation, patient presented yesterday afternoon with a chief complaint of mental status changes. Reportedly has had multiple falls. He was agitated. He did have a brain CT which did not demonstrate any acute intracranial hemorrhage or mass effect. Urine toxicology screen positive for opiates, tricyclic antidepressants, methamphetamines, benzodiazepines, and marijuana. Serum alcohol less than 10. Patient also noted to be in a bit dyspneic, and was placed on supplemental oxygen which is currently at 2 L/min nasal cannula. Chest x-ray showing cardiomegaly, bilateral interstitial infiltrates. Most recent available echocardiogram done November,, and estimating a left ventricular ejection fraction of 55 to 60%. No significant valvular abnormalities noted. NT proBNP 1820. Troponins less than 0.012. EKG: Normal sinus rhythm, 69 bpm, no obvious acute ischemic changes. CBC: WBC count 25.9, hemoglobin 12.2, hematocrit 37.4, platelets 270. He was empirically covered on azithromycin and Rocephin. Viral screen positive for COVID. CMP: Sodium 141, potassium 4.4, chloride 108, serum bicarb 20, BUN 21, creatinine 1.54, glucose 98. Urinalysis positive for leukocyte Estrace. LFTs unremarkable. Ammonia 25. Normal saline infusing at 100 mL/h. Patient also glaser d some abdominal pain in the emergency department. CT abdomen and pelvis did not show any acute bowel obstruction or free air. Some mild nonspecific fluid in the lower abdomen. Dependent opacities in the lungs mostly suggestive of atelectasis, minor groundglass opacities noted in the bases. Afebrile; respiratory rate 20 breaths/min; SpO2 96% on 2 L/min nasal cannula; blood pressure 127/74 mmHg; heart rate 86 bpm. Patient is currently being observed on the medical floor. He is lethargic but will wake up with aggressive verbal/tactile stimuli. Does not readily follow commands. He has received multiple doses of Ativan, total of 4 mg so far. He was reportedly agitated earlier. He does have some wheezing on auscultation. COPD seems to be active. 03/12/2024 the patient is being seen for a follow-up. The patient is i stable and denies having any new complaints. He has been infected with COVID-19 at the patient is obviously in a denial and he thinks that he is negative. Noted se veral family members are also positive for COVID-19. He is currently on 1.5 L of oxygen by nasal cannula pulse ox 93%. He remains on albuterol HFA, and IV Solu-Medrol 60 mg every 6 hours. He is also utilizing Trelegy Ellipta from home 1 puff every 24 hours. Labs were noted. White cell count was elevated at 21 with a hemoglobin of 11.2 and there is improvement in his white cell count. BUN is 23 with a creatinine of 0.9 and sodium levels at 139 and a bicarb is at 17. LDH was 289 and CRP was at 10.6 and a procalcitonin level is at 1.13. Patient is covered empirically with IV antibiotics. Blood cultures are still pending for now. He remains on IV Rocephin. No altered mentation. 03/13/2024, the patient is respiratory status is decompensated. The patient had progressive worsening his oxygen requirements and he was brought up from 2 L up to 15 L overnight and currently is placed on Airvo at 55 L with FiO2 of 80%. At the same time, there is significant worsening in the chest x-ray findings with development of diffuse bilateral pulm infiltrates and interval worsening of the chest x-ray findings. The patient states that he does not want to get intubated at all show dizziness. Has good hours. Meanwhile, I think there is progression of his pneumonia. This is most likely viral pneumonia/COVID-19 pneumonia. Superinfection is felt to be less likely. The patient is currently covered with IV Rocephin. He is also on Lovenox 40 mg subcu for DVT prophylaxis. The white cell count today is at 19.6 lingo 11.8 and platelet count 222. D-dimer is 1.03. Rest of the electrolytes show a component of metabolic acidosis with a gap of 14 and an serum bicarb of 19. Sodium levels at 141. He is awake and alert and communicating. He is admitting to have some worsening shortness of breath. Yet his breathing is not significantly labored. No altered mentation. No confusion. Having some limited diarrhea. On 03/14/2024, the patient is being seen for a follow-up. The patient remains on Airvo and this morning the patient is on a FiO2 of 80% with a flow of 55 L/min. Repeat chest x-ray was done today and again it showed diffuse bilateral pulmonary infiltrates and the findings are essentially unchanged compared to yesterday. The diffuse airspace disease is essentially stable. Meanwhile, the patient is having some dyspnea even at rest. He is able to complete full sent ences. No significant cough or sputum production. Examination is crackles in the mid lower lung base bilaterally. Once this is a 10 with a hemoglobin of 11.9. BUN 17 with a creatinine of 0.6 and a sodium of is at 142. Serum bicarb is at 20. LFTs are all within normal limits. The patient is currently on IV Solu-Medrol. The patient is on Trelegy Ellipta 1 puff a day. The patient on Lovenox 40 mg subcu twice a day. He was started on remdesivir and is on day #2 of treatment. No altered mentation. No diarrhea for now. 03/15/2024, the patient is feeling slightly better compared to yesterday. He remains on Airvo. Pulse ox is improved and the patient is currently pulse ox around 96% while being on Airvo with a flow of 55 L and FiO2 of 80%. Cough is less frequent as compared to yesterday. No altered mentation. Reports some clinical improvement in the his breathing seems to be less stable compared to yesterday. Labs from today still pending. Remains on remdesivir day #3. Rem ains on IV Solu-Medrol. Rest of the medications remain unchanged. He is afebrile. He is on Lovenox for DVT prophylaxis. He is utilizing Trelegy Ellipta from home and albuterol rescue inhaler on as-needed basis.CT scan of the chest also completed today and it showed diffuse groundglass bilateral pulmonary filtrates consistent with COVID-19 related pneumonia. CHF is felt to be less likely. Small bilateral pleural effusions. Prominent lymph nodes within the mediastinum, likely reactive. No evidence of any pulmonary embolism. On 03/16/2024, the patient is feeling better. He seems to be less short of breath. We were able to wean down FiO2 and he is currently down to 60% with a flow of 55 L while being on Airvo. Seems to be less short of breath for now. The chest x-ray was repeated this morning and the patient has some interval improvement in the bilateral pulmonary infiltrates and there is improved aeration. The patient remains on remdesivir day #4. The patient remains on IV Solu-Medrol. He remains on Trelegy Ellipta. Albuterol HFA [id number]. The white cell count of 8.5 with a hemoglobin of 11.5, potassium level of 2.1 and sodium levels at 140 with a BUN of 24 and a creatinine of 0.69. No other new complaints otherwise for now. Patient was seen today on 03/17/2024, patient is doing much better today, he is on 4 L nasal cannula, chest x-ray continues to show diffuse infiltrates, but clinically the patient is feeling better breathing a lot easier. O2 saturation is 99% on 4 L nasal cannula WBC count is 8.5 hemoglobin 11.5 basic metabolic profile is normal renal profile is normal patient finished a full course of remdesivir procalcitonin was 0.46 Objective - Vital Signs Vital signs: Vital Signs Temp 98.6 F 03/17/24 08:00 Pulse 71 03/17/24 11:18 Resp 20 03/17/24 11:18 BP 160/92 03/17/24 11:18 Pulse Ox 99 03/17/24 11:18 FiO2 60 03/16/24 11:26 Intake & Output 03/16/24 03/17/24 03/17/24 18:59 06:59 18:59 Intake Total 1040 20 1270 Output Total 1999 Balance -782 43 7203 Weight 77.2 kg Intake: IV 20 20 10 Invasive Line 2 20 20 10 Oral 1020 1260 Output: Urine 1999 Other: Voiding Method Toilet Toilet Toilet Urinal Urinal Urinal - Exam GENERAL EXAM: 64-year-old white male in no distress on 4 L nasal cannula HEAD: Normocephalic and atraumatic EYES: Normal reaction of pupils, equal size. NOSE: Clear with pink turbinates. THROAT: No erythema or exudates. NECK: No masses, no JVD. CHEST: No chest wall deformity. LUNGS: Fine crackles at the bases no rhonchi no wheezes erally. CVS: S1 and S2 normal with no audible murmur, regular rhythm. No extra heart sounds ABDOMEN: No hepatosplenomegaly, active bowel sounds, no guarding or rigidity. SKIN: No rashes CENTRAL NERVOUS SYSTEM: Alert oriented x 3 no gross focal deficit EXTREMITIES: No clubbing edema or cyanosis - Labs CBC & Chem 7: 03/16/24 06:25 03/17/24 05:35 Labs: Abnormal Lab Results - Last 24 Hours (Table) 03/16/24 03/16/24 03/16/24 Range/Units 16:34 20:30 21:37 Potassium 3.2 L (3.5-5.1) mmol/L Carbon Dioxide (22-30) mmol/L BUN (9-20) mg/dL Creatinine (0.66-1.25) mg/dL Glucose (74-99) mg/dL POC Glucose (mg/dL) 230 H 239 H (70-110) mg/dL Calcium (8.4-10.2) mg/dL 03/17/24 03/17/24 03/17/24 Range/Units 05:35 06:19 11:46 Potassium (3.5-5.1) mmol/L Carbon Dioxide 33 H (22-30) mmol/L BUN 28 H (9-20) mg/dL Creatinine 0.65 L (0.66-1.25) mg/dL Glucose 159 H (74-99) mg/dL POC Glucose (mg/dL) 204 H 175 H (70-110) mg/dL Calcium 8.2 L (8.4-10.2) mg/dL Assessment and Plan Assessment: Impression: Acute hypoxic respiratory failure secondary to acute COVID-19 pneumonia with significant improvement posttreatment he is now on 4 L nasal cannula instead of Airvo Bilateral pneumonia with extensive pulmonary infiltrates and consolidation with obvious interval worsening secondary to COVID-19/viral pneumonia. Acute COPD exacerbation, secondary to acute COVID infection/COVID-pneumonia Polysubstance abuse, urine toxicology screen positive for methamphetamines, benzodiazepines, opiates, TCAs, marijuana Altered mental status, suspect secondary acute metabolic encephalopathy and above Acute leukocytosis Acute kidney injury, improved and the creatinine is normalized Chronic obstructive pulmonary disease Chronic ongoing tobacco dependence History of ventilator dependent respiratory failure History of paroxysmal atrial fibrillation History of hypertension History of GERD Recommendation: Continue present medications Patient had full treatment with remdesivir Continue the COVID-19 cocktail. Consider discharge planning on home oxygen in the next 24 hours and follow-up on outpatient basis Continue bronchodilators for underlying COPD Repeat chest x-ray in a.m. Will continue to follow Time with Patient: Less than 30
[2024-03-17 16:38] LABS: Glucose,Whole Blood 214 mg/dL (70-110)
[2024-03-17] MEDS: FUROSEMIDE 10 MG/ML 2 ML VIAL IV SCH (17:15)
[2024-03-17 20:03] LABS: Glucose,Whole Blood 228 mg/dL (70-110)
[2024-03-18 06:04] LABS: Glucose,Whole Blood 292 mg/dL (70-110)
--- NOTE | 2024-03-18 07:56 | XR ---
EXAMINATION TYPE: XR chest 1V portable DATE OF EXAM: 03/18/2024 HISTORY: Shortness of breath. COMPARISON: 03/16/2024 TECHNIQUE: Single view of the chest is submitted. FINDINGS: Demonstrated are scattered senescent parenchymal change. There is no evidence for focal infiltrate. The heart is stable. Hilar and mediastinal structures are within normal limits. Degenerative changes are seen of the dorsal spine. IMPRESSION: 1. Chronic changes without evidence for acute pulmonary disease. [facility], , 03/18/2024 7:54 AM
--- NOTE | 2024-03-18 10:09 | P.PN ---
Subjective Progress Note Date: 03/17/24 This is a pleasant 64 years old male who presents from home for altered mental status. Patient currently is poor historian and cannot provide detailed information. Patient cannot tell me his name, he is confused and disoriented to time place and person, he could not tell where he is at, he thought this 2020 without month or date. He thought it is a trump as the president. Patient could not tell why he came to the hospital. But when I ask him if he has pain he says in his back. He denies chest pain or abdominal pain. He looks contracted and abdominal muscles tense. However CT of the abdomen pelvis done in the emergency room showing no bowel obstruction. As per records patient would have altered mental status whenever he has UTI per family. On admission he is tachycardic around 101, he is saturating 95% on 2 L. No fever. Labs show a leukocytosis of 25.9, hemoglobin 12.2, creatinine 1.5 with baseline about 0.8 Urine drug screen is positive for opiates, barbiturates, methamphetamine and marijuana COVID test is positive Chest x-ray reviewed by myself showing bilateral multifocal opacities There is no EKG CT of the brain is negative for acute process CT of the abdomen and pelvis reviewed showing no small bowel obstruction or free air 03/12 Patient breathing quietly however he still significantly hypoxic requiring heart rate of oxygen 6 L and during the evening went up to 10 L He is mildly confused he knows he is in [facility]. He thought his 2022 and he could not tell the president Chest x-ray showing bilateral multifocal infiltrate COVID test is positive as well as increased LDH and CRP Patient pro- Calcitonin is also elevated at 1.31 indicating possible bacterial superinfection and currently covered with Rocephin Also receiving steroids with IV Solu-Medrol and gentle hydration Kidney function improved. Leukocytosis trending down to 21,000. 03/13 Patient oxygen requirements increased significantly overnight up to 15 L/min, later on he required high-dose nasal cannula at 55 L/min Repeat chest x-ray shows worsening bilateral infiltrate, I reviewed the chest x- ray by myself and agree with it Patient has mildly increased D-dimer from 0.25 up to 1.0 in 2 days. He is on Lovenox 40 mg daily we will going to increase it to twice daily. Also CTA of the chest is ordered Staff and I discussed with the patient in details, we discussed CODE STATUS with him after explaining risk and benefits, he states that he does not want any intubation as he had bad experience with it previously that he is adamant for no intubation and also he declines resuscitation like chest compression electric shock or other measures. Patient adamant he wants to be DNR. He understands risk and benefits are explained to him in details. He understands that if no intubation and worsening hypoxia he went to go to hospice/comfort care and he is agreeable to that. Based on my evaluation patient has capacity make medical decision he is fully awake and oriented to time place person, he has insight. Patient actually sitting at the bedside and despite his higher oxygen requi rement he looks mild to moderately tachypneic while at rest. He can talk freely with no difficulties. He denies chest pain, no other complaint. Patient was transferred to select unit for higher level of care. Patient states that we can talk to his about his health issue if needed 03/14 Patient sitting in bed edge, with mild respiratory distress. He is mildly tachypneic. Denies chest pain or coughing. He talks freely. His oxygen requirement exceeds yesterday and this morning he is on high flow nasal cannula at 55 L/min. No other new specific complaints Most likely patient respiratory infection is due to viral infection with COVID, bacterial super infection is also suspected but less likely. Actually his white cell count normalized today from 21,000 down to 10.3, inflammatory markers elevated. Patient started on remdesivir today. He is also on Zithromax and ceftriaxone. Also his Solu-Medrol for elements of COPD exacerbation and IV fluid No signs symptoms of alcohol withdrawal CTA of the chest is requested and is pending D-dimer is elevated to 1.0. We increased his Lovenox 40 mg to twice daily 03/15 Today patient thinks his breathing is better he still on 55 L oxygen via high flow nasal cannula No diarrhea, good appetite He is able to go for CAT scan today pending results 03/16 Patient still slightly tachypneic in his room. He is in droplet isolation. He still on high flow nasal cannula at 55 L/min However patient feels much better after he peed a lot from 1 dose of IV Lasix. Repeat chest x-ray showing improvement CT of the chest also done and reviewed the case showing bilateral groundglass opacity consistent with his COVID infection Severe low potassium and magnesium being replaced Discussed the case and plan with the patient and he is agreeable 03/17/2024 Patient is seen and evaluated in follow-up today with pulmonary following maintained on steroids IV and patient is also continued on inhalers. Pulmonary following has transitioned from high flow down to 4 L via nasal cannula. Patient chronically wears 2 L outpatient and working on weaning and monitoring overnight with possible discharge planning in the next 24 hours. Patient reports he feels improved and has been up and walking to the bathroom without getting exerted and feels less dyspneic. Patient reports he was able to remove the oxygen this morning without desatting and was able to get back with no issues. Patient is afebrile with no reports of chest pain or palpitations. Angela tillman has been tolerating diet and will continue current regimen. Encouraged increase activity as tolerated with again possible discharge planning in the next 24 hours. Review of systems CONSTITUTIONAL: No fever, no malaise, no fatigue. GASTROINTESTINAL: No diarrhea, no nausea, no vomiting, no abdominal pain. Normoactive bowel sounds. NEUROLOGICAL: No headaches, no weakness, no numbness. HEMATOLOGICAL: Denies any bleeding or petechiae. GENITOURINARY: Denies any burning micturition, frequency, or urgency. MUSCULOSKELETAL/RHEUMATOLOGICAL: Denies any joint pain, swelling, or any muscle pain. ENDOCRINE: Denies any polyuria or polydipsia. Physical Exam: GENERAL: The patient is alert and oriented x 3 not in any acute distress. Well developed, well nourished. Appears older than stated age HEENT: Pupils are round and equally reacting to light. EOMI. No scleral icterus. No conjunctival pallor. Normocephalic, atraumatic. No pharyngeal erythema. No thyromegaly. CARDIOVASCULAR: S1 and S2 muffled PULMONARY: Breath sounds bilaterally with a few scattered expiratory wheezes noted at the bases, bilateral crepitation, patient mildly tachypneic ABDOMEN: Soft, nontender, nondistended, normoactive bowel sounds. No palpable organomegaly. MUSCULOSKELETAL: No joint swelling or deformity. EXTREMITIES: No cyanosis, clubbing, or pedal edema. NEUROLOGICAL: Gross neurological examination did not reveal any focal deficits. SKIN: No rashes. no petechiae. Assessment: Bilateral patchy pneumonia, could be related to COVID. bacterial infection felt less likely Acute COPD exacerbation Acute on chronic hypoxic respiratory failure secondary to COPD exacerbation Possible urinary tract infection, present on admission although suspicion is low as patient is asymptomatic, likely asymptomatic bacteriuria Severe metabolic/toxic encephalopathy secondary to acute COVID infection and hypoxic respiratory failure, improved Acute kidney injury, resolved Substance abuse with urine drug screen is positive for opiates, barbiturates, methamphetamine and marijuana GI prophylaxis DVT prophylaxis Full code Plan: Continue with high flow nasal cannula. Patient is being followed by pulmonary c ontheron on IV steroids along with inhalers and will continue. Patient normally uses trilogy in the outpatient setting. Patient reports he does not use a nebulizer at home. Patient does wear 2 L outpatient and currently has been weaned from 6 L this morning to 4 L and tolerating. Encouraged increase activity as tolerated and will discuss further with pulmonary regarding possible discharge planning in the next 24 hours. Continue with antibiotic, currently on Zithromax and ceftriaxone Patient has completed remdesivir Continue with IV fluid Will transition to prednisone taper on discharge and have patient follow-up with pulmonary outpatient. To discuss with pulmonary about possible discharge planning in the next 24 hours if patient maintains oxygen saturations on nasal cannula of 2 to 4 L. Due to multiple complex medical issues, overall prognosis is guarded The impression and plan of care has been dictated by Isabelle Fishman, Nurse Practitioner as directed. Dr. Elizabeth MD I have performed a history and examination and MDM of this patient, discussed the same with the dictator, and agree with the dictator's assessment and plan as written ,documented as a scribe. Based on total visit time, I have performed more than 50% of the visit. Objective - Vital Signs Vital signs: Vital Signs Temp 98.6 F 03/17/24 08:00 Pulse 81 03/17/24 08:00 Resp 18 03/17/24 08:00 BP 144/81 03/17/24 08:00 Pulse Ox 100 03/17/24 08:00 FiO2 60 03/16/24 11:26 Intake & Output 03/16/24 03/17/24 03/17/24 18:59 06:59 18:59 Intake Total 1040 20 540 Output Total 1999 Balance -960 20 540 Intake: IV 20 20 Invasive Line 2 20 20 Oral 1020 540 Output: Urine 1999 Other: Voiding Method Toilet Toilet Urinal Urinal - Labs CBC & Chem 7: 03/16/24 06:25 03/17/24 05:35 Labs: Abnormal Lab Results - Last 24 Hours (Table) 03/16/24 03/16/24 03/16/24 Range/Units 11:28 13:54 16:34 Potassium 2.8 L (3.5-5.1) mmol/L Carbon Dioxide (22-30) mmol/L BUN (9-20) mg/dL Creatinine (0.66-1.25) mg/dL Glucose (74-99) mg/dL POC Glucose (mg/dL) 138 H 230 H (70-110) mg/dL Calcium (8.4-10.2) mg/dL 03/16/24 03/16/24 03/17/24 Range/Units 20:30 21:37 05:35 Potassium 3.2 L (3.5-5.1) mmol/L Carbon Dioxide 33 H (22-30) mmol/L BUN 28 H (9-20) mg/dL Creatinine 0.65 L (0.66-1.25) mg/dL Glucose 159 H (74-99) mg/dL POC Glucose (mg/dL) 239 H (70-110) mg/dL Calcium 8.2 L (8.4-10.2) mg/dL 03/17/24 Range/Units 06:19 Potassium (3.5-5.1) mmol/L Carbon Dioxide (22-30) mmol/L BUN (9-20) mg/dL Creatinine (0.66-1.25) mg/dL Glucose (74-99) mg/dL POC Glucose (mg/dL) 204 H (70-110) mg/dL Calcium (8.4-10.2) mg/dL
[2024-03-18 10:11] VITALS: TEMP 98.1
[2024-03-18 11:40] LABS: Glucose,Whole Blood 154 mg/dL (70-110)
[2024-03-18 12:39] VITALS: BP 152/90; PULSE 72; RESP 17
--- NOTE | 2024-03-18 14:25 | P.PN ---
Subjective Progress Note Date: 03/18/24 Principal diagnosis: Acute hypoxic respiratory failure secondary to acute COVID-19 pneumonia Patient is a 64-year-old white male with past medical history significant for COPD, as needed home O2, chronic ongoing tobacco dependence, prior ventilator dependent respiratory failure, GERD, hypertension, atrial fibrillation, among other things. He does have frequent hospitalizations. Recently, presenting where he becomes altered and has falls. Most recently admitted back in November, for this presentation. According to the patient's he gets this way when he has an infection. He has had previous episodes of pneumonia and UTIs. On his last admission he was delirious requiring multiple doses of antipsychotics and benzodiazepines. He is currently lethargic, not following commands, unable to participate in HPI. Reportedly had multiple falls at home yesterday. According to the ER documentation, patient presented yesterday afternoon with a chief complaint of mental status changes. Reportedly has had multiple falls. He was agitated. He did have a brain CT which did not demonstrate any acute intracranial hemorrhage or mass effect. Urine toxicology screen positive for opiates, tricyclic antidepressants, methamphetamines, benzodiazepines, and marijuana. Serum alcohol less than 10. Patient also noted to be in a bit dyspneic, and was placed on supplemental oxygen which is currently at 2 L/min nasal cannula. Chest x-ray showing cardiomegaly, bilateral interstitial infiltrates. Most recent available echocardiogram done November,, and estimating a left ventricular ejection fraction of 55 to 60%. No significant valvular abnormalities noted. NT proBNP 1820. Troponins less than 0.012. EKG: Normal sinus rhythm, 69 bpm, no obvious acute ischemic changes. CBC: WBC count 25.9, hemoglobin 12.2, hematocrit 37.4, platelets 270. He was empirically covered on azithromycin and Rocephin. Viral screen positive for COVID. CMP: Sodium 141, potassium 4.4, chloride 108, serum bicarb 20, BUN 21, creatinine 1.54, glucose 98. Urinalysis positive for leukocyte Estrace. LFTs unremarkable. Ammonia 25. Normal saline infusing at 100 mL/h. Patient also glaser d some abdominal pain in the emergency department. CT abdomen and pelvis did not show any acute bowel obstruction or free air. Some mild nonspecific fluid in the lower abdomen. Dependent opacities in the lungs mostly suggestive of atelectasis, minor groundglass opacities noted in the bases. Afebrile; respiratory rate 20 breaths/min; SpO2 96% on 2 L/min nasal cannula; blood pressure 127/74 mmHg; heart rate 86 bpm. Patient is currently being observed on the medical floor. He is lethargic but will wake up with aggressive verbal/tactile stimuli. Does not readily follow commands. He has received multiple doses of Ativan, total of 4 mg so far. He was reportedly agitated earlier. He does have some wheezing on auscultation. COPD seems to be active. 03/12/2024 the patient is being seen for a follow-up. The patient is i stable and denies having any new complaints. He has been infected with COVID-19 at the patient is obviously in a denial and he thinks that he is negative. Noted se veral family members are also positive for COVID-19. He is currently on 1.5 L of oxygen by nasal cannula pulse ox 93%. He remains on albuterol HFA, and IV Solu-Medrol 60 mg every 6 hours. He is also utilizing Trelegy Ellipta from home 1 puff every 24 hours. Labs were noted. White cell count was elevated at 21 with a hemoglobin of 11.2 and there is improvement in his white cell count. BUN is 23 with a creatinine of 0.9 and sodium levels at 139 and a bicarb is at 17. LDH was 289 and CRP was at 10.6 and a procalcitonin level is at 1.13. Patient is covered empirically with IV antibiotics. Blood cultures are still pending for now. He remains on IV Rocephin. No altered mentation. 03/13/2024, the patient is respiratory status is decompensated. The patient had progressive worsening his oxygen requirements and he was brought up from 2 L up to 15 L overnight and currently is placed on Airvo at 55 L with FiO2 of 80%. At the same time, there is significant worsening in the chest x-ray findings with development of diffuse bilateral pulm infiltrates and interval worsening of the chest x-ray findings. The patient states that he does not want to get intubated at all show dizziness. Has good hours. Meanwhile, I think there is progression of his pneumonia. This is most likely viral pneumonia/COVID-19 pneumonia. Superinfection is felt to be less likely. The patient is currently covered with IV Rocephin. He is also on Lovenox 40 mg subcu for DVT prophylaxis. The white cell count today is at 19.6 lingo 11.8 and platelet count 222. D-dimer is 1.03. Rest of the electrolytes show a component of metabolic acidosis with a gap of 14 and an serum bicarb of 19. Sodium levels at 141. He is awake and alert and communicating. He is admitting to have some worsening shortness of breath. Yet his breathing is not significantly labored. No altered mentation. No confusion. Having some limited diarrhea. On 03/14/2024, the patient is being seen for a follow-up. The patient remains on Airvo and this morning the patient is on a FiO2 of 80% with a flow of 55 L/min. Repeat chest x-ray was done today and again it showed diffuse bilateral pulmonary infiltrates and the findings are essentially unchanged compared to yesterday. The diffuse airspace disease is essentially stable. Meanwhile, the patient is having some dyspnea even at rest. He is able to complete full sent ences. No significant cough or sputum production. Examination is crackles in the mid lower lung base bilaterally. Once this is a 10 with a hemoglobin of 11.9. BUN 17 with a creatinine of 0.6 and a sodium of is at 142. Serum bicarb is at 20. LFTs are all within normal limits. The patient is currently on IV Solu-Medrol. The patient is on Trelegy Ellipta 1 puff a day. The patient on Lovenox 40 mg subcu twice a day. He was started on remdesivir and is on day #2 of treatment. No altered mentation. No diarrhea for now. 03/15/2024, the patient is feeling slightly better compared to yesterday. He remains on Airvo. Pulse ox is improved and the patient is currently pulse ox around 96% while being on Airvo with a flow of 55 L and FiO2 of 80%. Cough is less frequent as compared to yesterday. No altered mentation. Reports some clinical improvement in the his breathing seems to be less stable compared to yesterday. Labs from today still pending. Remains on remdesivir day #3. Rem ains on IV Solu-Medrol. Rest of the medications remain unchanged. He is afebrile. He is on Lovenox for DVT prophylaxis. He is utilizing Trelegy Ellipta from home and albuterol rescue inhaler on as-needed basis.CT scan of the chest also completed today and it showed diffuse groundglass bilateral pulmonary filtrates consistent with COVID-19 related pneumonia. CHF is felt to be less likely. Small bilateral pleural effusions. Prominent lymph nodes within the mediastinum, likely reactive. No evidence of any pulmonary embolism. On 03/16/2024, the patient is feeling better. He seems to be less short of breath. We were able to wean down FiO2 and he is currently down to 60% with a flow of 55 L while being on Airvo. Seems to be less short of breath for now. The chest x-ray was repeated this morning and the patient has some interval improvement in the bilateral pulmonary infiltrates and there is improved aeration. The patient remains on remdesivir day #4. The patient remains on IV Solu-Medrol. He remains on Trelegy Ellipta. Albuterol HFA [id number]. The white cell count of 8.5 with a hemoglobin of 11.5, potassium level of 2.1 and sodium levels at 140 with a BUN of 24 and a creatinine of 0.69. No other new complaints otherwise for now. Patient was seen today on 03/17/2024, patient is doing much better today, he is on 4 L nasal cannula, chest x-ray continues to show diffuse infiltrates, but clinically the patient is feeling better breathing a lot easier. O2 saturation is 99% on 4 L nasal cannula WBC count is 8.5 hemoglobin 11.5 basic metabolic profile is normal renal profile is normal patient finished a full course of remdesivir procalcitonin was 0.46 Patient evaluated today on 03/18/2024, patient is feeling much better, continues to clinically improve, he is now on room air, not in any distress, patient finished a full course of remdesivir, his chest x-ray showed significant improvement, now I am becoming to suspect that the patient may have had some component of diastolic congestive heart failure since his dramatic improvement was noted after the patient has been receiving Lasix. In the meantime patient could be discharged home, his echocardiogram showed no evidence of LV dysfunction and he would likely benefit from a maintenance dose of Lasix 20 mg daily until evaluated on outpatient basis in the office. Objective - Vital Signs Vital signs: Vital Signs Temp 98.1 F 03/18/24 08:35 Pulse 72 03/18/24 11:40 Resp 17 03/18/24 11:40 BP 152/90 03/18/24 11:40 Pulse Ox 95 03/18/24 11:40 FiO2 60 03/16/24 11:26 Intake & Output 03/17/24 03/18/24 03/18/24 18:59 06:59 18:59 Intake Total 2810 10 480 Output Total 300 2425 Balance 2510 -2415 480 Weight 77.2 kg 77 kg Intake: IV 20 10 Invasive Line 2 20 10 Intake, IV Titration 250 Amount Remdesivir 100 mg In 250 Sodium Chloride 0.9% 250 ml @ 250 mls/hr IVPB DAILY [facility] Rx#:[id number] Oral 2540 480 Output: Urine 300 2425 Other: Voiding Method Toilet Toilet Toilet Urinal Urinal Urinal # Voids 5 - Exam GENERAL EXAM: 64-year-old white male in no distress on room air HEAD: Normocephalic and atraumatic EYES: Normal reaction of pupils, equal size. NOSE: Clear with pink turbinates. THROAT: No erythema or exudates. NECK: No masses, no JVD. CHEST: No chest wall deformity. LUNGS: Clear bilaterally no crackles rhonchi or wheeze CVS: S1 and S2 normal with no audible murmur, regular rhythm. No extra heart sounds ABDOMEN: No hepatosplenomegaly, active bowel sounds, no guarding or rigidity. SKIN: No rashes CENTRAL NERVOUS SYSTEM: Alert oriented x 3 no gross focal deficit EXTREMITIES: No clubbing edema or cyanosis - Labs CBC & Chem 7: 03/16/24 06:25 03/17/24 05:35 Labs: Abnormal Lab Results - Last 24 Hours (Table) 03/17/24 03/17/24 03/18/24 Range/Units 16:37 20:02 06:02 POC Glucose (mg/dL) 214 H 228 H 292 H (70-110) mg/dL 03/18/24 Range/Units 11:38 POC Glucose (mg/dL) 154 H (70-110) mg/dL Assessment and Plan Assessment: Impression: Acute hypoxic respiratory failure secondary to acute COVID-19 pneumonia with significant improvement now on room air and chest x-ray showed significant improvement Bilateral pneumonia with extensive pulmonary infiltrates and consolidation with obvious interval worsening secondary to COVID-19/viral pneumonia. Acute COPD exacerbation, secondary to acute COVID infection/COVID-pneumonia Suspect possible acute diastolic congestive heart failure, this is based on the fact that the patient had elevated BNP and dramatic improvement with diuretics, practically improvement overnight Polysubstance abuse, urine toxicology screen positive for methamphetamines, benzodiazepines, opiates, TCAs, marijuana Altered mental status, suspect secondary acute metabolic encephalopathy and a sara Acute leukocytosis Acute kidney injury, improved and the creatinine is normalized Chronic obstructive pulmonary disease Chronic ongoing tobacco dependence History of ventilator dependent respiratory failure History of paroxysmal atrial fibrillation History of hypertension History of GERD Recommendation: Will clear the patient for discharge Suggest keeping the patient on Lasix at 20 mg daily Continue bronchodilators Reviewed chest x-ray today it is reassuring Patient to follow-up on outpatient basis. Time with Patient: Less than 30
[2024-03-19] MEDS ORDERED: predniSONE 20 MG TAB PO SCH (09:00)
--- NOTE | 2024-03-24 08:37 | P.DS ---
Providers Date of admission: 03/10/24 19:07 Expected date of discharge: 03/18/24 Attending physician: Eva Saba Consults: 03/10/24 19:05 Consult Physician Routine Consulting Provider: Cathy Christian Consult Reason/Comments: eval for pneumonia Do you want consulting provider notified?: Yes 03/10/24 19:06 Consult Physician Routine Consulting Provider: Leonard Ramos Consult Reason/Comments: ams Do you want consulting provider notified?: Yes Primary care physician: Joseph Granger MD Hospital Course: Final diagnosis Bilateral patchy pneumonia, could be related to COVID. bacterial infection felt less likely Acute COPD exacerbation Acute on chronic hypoxic respiratory failure secondary to COPD exacerbation Possible urinary tract infection, present on admission although suspicion is low as patient is asymptomatic, likely asymptomatic bacteriuria Severe metabolic/toxic encephalopathy secondary to acute COVID infection and hypoxic respiratory failure, improved Acute kidney injury, resolved Substance abuse with urine drug screen is positive for opiates, barbiturates, methamphetamine and marijuana GI prophylaxis DVT prophylaxis Full code Discharge disposition Patient is being discharged in a stable condition with guarded prognosis to home. Patient will follow-up with Dr. Granger in the outpatient setting upon discharge. Patient is to continue with prednisone taper and outpatient follow- up with pulmonary as scheduled. Total time taken is greater than 35 minutes. Hospital course This is a 64-year-old male who was recently admitted with acute COPD exacerbation as well acute COVID-19 infection. Patient was on inhalers along with steroids and also received remdesivir and completed the course. Patient was requiring some oxygen and reports he does have as needed oxygen at night for his COPD although does not normally use it. Patient has been weaned to room air and reports to feeling improved. Patient will continue on his inhalers and a pr ednisone taper and has been cleared by pulmonary for outpatient follow-up. Patient has been instructed to follow-up with his primary care provider regarding pain management and anxiety medications. Please refer to other consultation notes for further HPI.Currently no reports of chest pain, shortness of breath, or palpitations. Patient is afebrile. No reports of nausea or vomiting and patient is tolerating diet. Patient will be discharged home today. High risk for readmissions given significant comorbidities and noncompliance Physical exam: Gen: This is a 64-year-old male who is awake, alert and oriented x 3, well- developed, elderly appearing HEENT: Head is atraumatic, normocephalic. Pupils equal, round. Sclerae is anicteric. NECK: Supple. No JVD. No lymphadenopathy. No thyromegaly. LUNGS: Diminished breath sounds bilaterally with some scattered coarse rhonchi. No intercostal retractions. HEART: Regular rate and rhythm. No murmur. ABDOMEN: Soft. Bowel sounds are present. No masses. No tenderness. EXTREMITIES: No pedal edema. No calf tenderness. NEUROLOGICAL: Patient is awake, alert and oriented x3. Cranial nerves 2 through 12 are grossly intact. Please refer to medication reconciliation sheet for a list of medications. The impression and plan of care has been dictated by Isabelle Fishman, Nurse Practitioner as directed. Dr. Elizabeth MD I have performed a history and examination and MDM of this patient, discussed the same with the dictator, and agree with the dictator's assessment and plan as written ,documented as a scribe. Based on total visit time, I have performed more than 50% of the visit. Patient Condition at Discharge: Stable Plan - Discharge Summary Discharge Rx Participant: Yes New Discharge Prescriptions: New Tamsulosin HCl [Flomax] 0.4 mg PO DAILY #30 capsule Folic Acid 1 mg PO DAILY #30 tab Furosemide [Lasix] 20 mg PO DAILY #30 tab HYDROcodone/APAP 7.5-325MG [Ward 7.5-325] 1 each PO TID PRN #12 tab PRN Reason: Pain Famotidine [Pepcid] 20 mg PO BID #30 tab predniSONE See Taper PO DIRECTED #30 tab Albuterol Inhaler [Ventolin Hfa Inhaler] 2 puff INHALATION RT-QID each Cyanocobalamin [Vitamin B-12] 1,000 mcg PO DAILY #60 tab ALPRAZolam [Xanax] 0.5 mg PO BID PRN #10 tab PRN Reason: Anxiety Continue Baclofen [Lioresal] 20 mg PO TID Fluticasone/Umeclidin/Vilanter [Trelegy Ellipta 100-62.5-25] 1 puff INHALATION RT-DAILY Citalopram Hydrobromide [CeleXA] 40 mg PO DAILY Discontinued HYDROcodone/APAP 7.5-325MG [[place]ard 7.5-325] 1 tab PO BID PRN 3 Days #6 tab PRN Reason: Pain Discharge Medication List Baclofen [Lioresal] 20 mg PO TID 11/24/23 [History] Fluticasone/Umeclidin/Vilanter [Trelegy Ellipta 100-62.5-25] 1 puff INHALATION RT-DAILY 12/10/23 [History] Citalopram Hydrobromide [CeleXA] 40 mg PO DAILY 01/28/24 [History] ALPRAZolam [Xanax] 0.5 mg PO BID PRN #10 tab 03/18/24 [Rx] Albuterol Inhaler [Ventolin Hfa Inhaler] 2 puff INHALATION RT-QID each 03/18/24 [Rx] Cyanocobalamin [Vitamin B-12] 1,000 mcg PO DAILY #60 tab 03/18/24 [Rx] Famotidine [Pepcid] 20 mg PO BID #30 tab 03/18/24 [Rx] Folic Acid 1 mg PO DAILY #30 tab 03/18/24 [Rx] Furosemide [Lasix] 20 mg PO DAILY #30 tab 03/18/24 [Rx] HYDROcodone/APAP 7.5-325MG [Ward 7.5-325] 1 each PO TID PRN #12 tab 03/18/24 [Rx] Tamsulosin HCl [Flomax] 0.4 mg PO DAILY #30 capsule 03/18/24 [Rx] predniSONE See Taper PO DIRECTED #30 tab 03/18/24 [Rx] Follow up Appointment(s)/Referral(s): Joshua Mas MD [STAFF PHYSICIAN] - 1 Week Joseph Granger MD [Primary Care Provider] - 1-2 days Patient Instructions/Handouts: COVID-19 (Coronavirus Disease 2019) (DC) Activity/Diet/Wound Care/Special Instructions: Activity limited until follow-up Follow-up with primary care provider on discharge Follow-up with pulmonary outpatient Continue on current medications Avoid tobacco use and exposure Discharge Disposition: HOME SELF-CARE
== END 2024-03-18 15:26 | disposition home or self-care (01) | DRG 137 ==
LOC: EC 15:14 → 4SSUR 19:07 → 3SCARD 03-13 10:33
PROVIDERS: ADMIT Hospitalist; ATTEND Hospitalist
PROC: 8E0ZXY6 Isolation (ICD-10-PCS; principal; 2024-03-10)
DX: U07.1 COVID-19 (principal); J96.21 Acute and chronic respiratory failure with hypoxia; J12.82 Pneumonia due to coronavirus disease 2019; N17.9 Acute kidney failure, unspecified; J44.1 Chronic obstructive pulmonary disease with (acute) exacerbation; J44.0 Chronic obstructive pulmonary disease with (acute) lower respiratory infection; F19.10 Other psychoactive substance abuse, uncomplicated; I48.0 Paroxysmal atrial fibrillation; Z66 Do not resuscitate; Z99.81 Dependence on supplemental oxygen; G92.8 Other toxic encephalopathy; I11.9 Hypertensive heart disease without heart failure; E87.20 Acidosis, unspecified; F17.210 Nicotine dependence, cigarettes, uncomplicated; R82.71 Bacteriuria; K21.9 Gastro-esophageal reflux disease without esophagitis; R29.6 Repeated falls; W19.XXXA Unspecified fall, initial encounter; Y92.009 Unspecified place in unspecified non-institutional (private) residence as the place of occurrence of the external cause; Z79.51 Long term (current) use of inhaled steroids; Z79.899 Other long term (current) drug therapy; Z98.1 Arthrodesis status; Z87.01 Personal history of pneumonia (recurrent); Z78.9 Other specified health status; Z91.81 History of falling
CPT/HCPCS: 36415; 36600; 70450; 71045; 71046; 71275; 74177; 80048; 80053; 80306; 80320; 81001; 82140; 82150; 82607; 82746; 82805; 83036; 83615; 83690; 83735; 83880; 84132; 84145; 84484; 85025; 85379; 85610; 85730; 86140; 87040; 87449; 87636; 93005; 93880; 94640; 94760; 96361; 96365; 96375; 96376; 99285

== ENCOUNTER 2024-04-02 06:29 | Emergency (ER) | payer OTHER ==
[2024-04-02] MEDS: MECLIZINE 12.5 MG TAB PO STA (07:06)
[2024-04-02] MEDS: SODIUM CHLORIDE 0.9% 500 ML 500 ML IV STA (07:06)
[2024-04-02] MEDS: HYDROcodone/APAP 7.5-325MG 1 EACH TAB PO ONE (07:06)
[2024-04-02 07:11] LABS: Basophils % (A) 0 %; Eosinophils # (A) 0.1 k/uL (0-0.7); Eosinophils % (A) 2 %; HCT 42.7 % (39.0-53.0); HGB 13.9 gm/dL (13.0-17.5); Lymphocytes # (A) 1.6 k/uL (1.0-4.8); Lymphocytes % (A) 21 %; MCH 27.5 pg (25.0-35.0); MCHC 32.6 g/dL (31.0-37.0); MCV 84.5 fL (80.0-100.0); Mean Platelet Volume 7.9; Monocytes # (A) 0.5 k/uL (0-1.0); Monocytes % (A) 7 %; Neutrophils # (A) 4.9 k/uL (1.3-7.7); Neutrophils % (A) 68 %; Platelet Count 261 k/uL (150-450); RBC 5.06 m/uL (4.30-5.90); RDW 15.5 % (11.5-15.5); WBC 7.3 k/uL (3.8-10.6)
--- NOTE | 2024-04-02 07:11 | ED ---
Dizziness HPI - General Chief Complaint: Dizziness Stated Complaint: Dizziness Time Seen by Provider: 04/02/24 06:32 Source: patient, EMS, RN notes reviewed, old records reviewed Mode of arrival: EMS Limitations: no limitations - History of Present Illness Initial Comments: This is a 64-year-old male presents emergency department with chief complaint of lightheadedness, dizziness over the last several days. Patient states this more when he stands up he feels very lightheaded feels very weak at that time. He denies chest pain. Patient states she has some nausea and bodyaches. He denies any reports of fever chills cough or cold-like symptoms denies any urinary symptoms he states he has been admitted recently for COVID-19, pneumonia, UTIs. Patient does state that he did not have a [place] and became very angry at this time stating that when he was here last he had a drug screen showing methamphetamines. He states that he does not use methamphetamines and because that she does not have his pain meds now. Patient states that he may be withd rawing. - Related Data Home Medications Medication Instructions Recorded Confirmed Baclofen [Lioresal] 20 mg PO TID 11/24/23 03/10/24 Fluticasone/Umeclidin/Vilanter 1 puff INHALATION RT-DAILY 12/10/23 03/10/24 [Colby Schmidtta 100-62.5-25] Citalopram Hydrobromide [CeleXA] 40 mg PO DAILY 01/28/24 03/10/24 Previous Rx's Medication Instructions Recorded ALPRAZolam [Xanax] 0.5 mg PO BID PRN #10 tab 03/18/24 Albuterol Inhaler [Ventolin Hfa 2 puff INHALATION RT-QID each 03/18/24 Inhaler] Cyanocobalamin [Vitamin B-12] 1,000 mcg PO DAILY #60 tab 03/18/24 Famotidine [Pepcid] 20 mg PO BID #30 tab 03/18/24 Folic Acid 1 mg PO DAILY #30 tab 03/18/24 Furosemide [Lasix] 20 mg PO DAILY #30 tab 03/18/24 HYDROcodone/APAP 7.5-325MG [[place] 1 each PO TID PRN #12 tab 03/18/24 7.5-325] Tamsulosin HCl [Flomax] 0.4 mg PO DAILY #30 capsule 03/18/24 predniSONE See Taper PO DIRECTED #30 tab 03/18/24 Meclizine [Antivert] 25 mg PO TID PRN #15 tab 04/02/24 Ondansetron Odt [Zofran Odt] 4 mg PO Q8HR PRN #10 tab 04/02/24 Allergies Allergy/AdvReac Type Severity Reaction Status Date / Time sacubitril [From Entresto] Allergy hives Verified 04/02/24 06:40 trazodone Allergy Rash/Hives Verified 04/02/24 06:40 valsartan [From Entresto] Allergy hives Verified 04/02/24 06:40 Review of Systems ROS Statement: Those systems with pertinent positive or pertinent negative responses have been documented in the HPI. ROS Other: All systems not noted in ROS Statement are negative. Past Medical History Past Medical History: Atrial Fibrillation, COPD, GERD/Reflux, Hypertension, Pneumonia Additional Past Medical History / Comment(s): back pain spinal cord pinched in neck. SOB with activity History of Any Multi-Drug Resistant Organisms: None Reported Date of last positivie culture/infection: 11/25/23 MDRO Source:: Sputum Past Surgical History: Back Surgery Additional Past Surgical History / Comment(s): neck fusion,rt eye surgery, rt hand surgery, cateracts Past Anesthesia/Blood Transfusion Reactions: No Reported Reaction Past Psychological History: Depression Smoking Status: Current every day smoker Past Alcohol Use History: None Reported Past Drug Use History: Marijuana - Past Family History Mother History Unknown: Yes Family Medical History: Myocardial Infarction ([place]) Additional Family Medical History / Comment(s): from [place] General Exam Limitations: no limitations General appearance: alert, in no apparent distress Head exam: Present: atraumatic, normocephalic, normal inspection Eye exam: Present: normal appearance, PERRL, EOMI. Absent: scleral icterus, conjunctival injection, periorbital swelling ENT exam: Present: normal exam, normal oropharynx, mucous membranes moist Neck exam: Present: normal inspection, full ROM. Absent: tenderness, meningismus, lymphadenopathy Respiratory exam: Present: normal lung sounds bilaterally. Absent: respiratory distress, wheezes, rales, rhonchi, stridor Cardiovascular Exam: Present: regular rate, normal rhythm, normal heart sounds. Absent: systolic murmur, diastolic murmur, rubs, gallop, clicks GI/Abdominal exam: Present: soft, normal bowel sounds. Absent: distended, tenderness, guarding, rebound, rigid Neurological exam: Present: alert, oriented X3, CN II-XII intact, reflexes normal. Absent: motor sensory deficit Course Vital Signs 04/02/24 04/02/24 06:37 06:45 Temperature 98.0 F Pulse Rate 85 Respiratory 15 Rate Blood Pressure 141/96 Blood Pressure 115/95 [Left Arm Sitting] Blood Pressure 108/89 [Left Arm Standing] Blood Pressure 141/96 [Left Arm Supine] O2 Sat by Pulse 97 Oximetry EKG Findings - EKG Comments: EKG Findings:: EKG performed at 6: 42 sinus rhythm with short IN rate of 87 IN 117 QRS 86 QT/QTc 376/420 - EKG Results: EKG: interpreted by KRISHNA Medical Decision Making - Medical Decision Making Was pt. sent in by a medical professional or institution (, PA, BARREL FINISHER, urgent care, hospital, or alf...) When possible be specific @ -No Did you speak to anyone other than the patient for history (EMS, parent, family, police, friend...)? What history was obtained from this source @ -No Did you review nursing and triage notes (agree or disagree)? Why? @ -I reviewed and agree with nursing and triage notes Were old charts reviewed (outside hosp., previous admission, EMS record, old EKG, old radiological studies, urgent care reports/EKG's, alf records)? Report findings @ -No old charts were reviewed Differential Diagnosis (chest pain, altered mental status, abdominal pain women, abdominal pain men, vaginal bleeding, weakness, fever, dyspnea, syncope, headache, dizziness, GI bleed, back pain, seizure, CVA, palpatations, mental health, musculoskeletal)? @ -Differential Dizziness: Benign paroxysmal positional Vertigo, Meniere's disease, otitis media, acoustic neuroma, vertebrobasilar insufficiency, cerebellar stroke, encephalitis, hypo volemic, arrhythmia, coronary artery syndrome, anemia, this is not meant to be an all-inclusive list EKG interpreted by me (3pts min.). @ -As above X-rays interpreted by me (1pt min.). @ -Chest x-ray shows no acute cardiopulmonary process. CT interpreted by me (1pt min.). @ -None done U/S interpreted by me (1pt. min.). @ -None done What testing was considered but not performed or refused? (CT, X-rays, U/S, labs)? Why? @ -CT of the brain for dizziness though patient symptoms had improved and yariel tillman had no focal weakness. What meds were considered but not given or refused? Why? @ -None Did you discuss the management of the patient with other professionals (professionals i.e. , PA, BARREL FINISHER, lab, RT, psych nurse, nephrology social worker, blood splatter analyst, teacher, chief administrative officer, immigration case worker)? Give summary @ -No Was smoking cessation discussed for >3mins.? @ -No Was critical care preformed (if so, how long)? @ -No Were there social determinants of health that impacted care today? How? (Homelessness, low income, unemployed, alcoholism, drug addiction, transportation, low edu. Level, literacy, decrease access to med. care, residential, rehab)? @ -No Was there de-escalation of care discussed even if they declined (Discuss DNR or withdrawal of care, Hospice)? DNR status @ -No What co-morbidities impacted this encounter? (DM, HTN, Smoking, COPD, CAD, Cancer, CVA, ARF, Chemo, Hep., AIDS, mental health diagnosis, sleep apnea, morbid obesity)? @ -Chronic pain Was patient admitted / discharged? Hospital course, mention meds given and route, prescriptions, significant lab abnormalities, going to OR and other pert inent info. @ -Discharge patient presented for feeling lightheaded. Patient does feel greatly proved at this time after IV fluids and analgesics. Patient does not have any focal weakness no complaints of headache. Patient may have withdrawal symptoms secondary to being cut off of his [place]. Patient feels comfortable with discharge and return parameters discussed. Undiagnosed new problem with uncertain prognosis? @ -No Drug Therapy requiring intensive monitoring for toxicity (Heparin, Nitro, Insulin, Cardizem)? @ -No Were any procedures done? @ -No Diagnosis/symptom? @ -Lightheadedness, dizziness medication withdrawal Acute, or Chronic, or Acute on Chronic? @ -Acute Uncomplicated (without systemic symptoms) or Complicated (systemic symptoms)? @ -Complicated Side effects of treatment? @ -No Exacerbation, Progression, or Severe Exacerbation? @ -No Poses a threat to life or bodily function? How? (Chest pain, [place], [place], pneumonia, PE, COPD, DKA, ARF, appy, cholecystitis, CVA, Diverticulitis, Homicidal, Suicidal, threat to staff... and all critical care pts) @ -No - Lab Data Result diagrams: 04/02/24 07:05 04/02/24 07:05 Lab Results 04/02/24 04/02/24 04/02/24 Range/Units 07:05 07:05 07:05 WBC 7.3 (3.8-10.6) k/uL RBC 5.06 (4.30-5.90) m/uL Hgb 13.9 (13.0-17.5) gm/dL Hct 42.7 (39.0-53.0) % MCV 84.5 (80.0-100.0) fL MCH 27.5 (25.0-35.0) pg MCHC 32.6 (31.0-37.0) g/dL RDW 15.5 (11.5-15.5) % Plt Count 261 (150-450) k/uL MPV 7.9 Neutrophils % 68 % Lymphocytes % 21 % Monocytes % 7 % Eosinophils % 2 % Basophils % 0 % Neutrophils # 4.9 (1.3-7.7) k/uL Lymphocytes # 1.6 (1.0-4.8) k/uL Monocytes # 0.5 (0-1.0) k/uL Eosinophils # 0.1 (0-0.7) k/uL Basophils # 0.0 (0-0.2) k/uL Sodium 139 (137-145) mmol/L Potassium 3.9 (3.5-5.1) mmol/L Chloride 106 (98-107) mmol/L Carbon Dioxide 25 (22-30) mmol/L Anion Gap 8 mmol/L BUN 12 (9-20) mg/dL Creatinine 1.11 (0.66-1.25) mg/dL Est GFR (CKD-EPI)AfAm 82 (>60 ml/min/1.73 sqM) Est GFR (CKD-EPI)NonAf 71 (>60 ml/min/1.73 sqM) Glucose 85 (74-99) mg/dL Calcium 9.4 (8.4-10.2) mg/dL Magnesium 2.0 (1.6-2.3) mg/dL Total Bilirubin 0.7 (0.2-1.3) mg/dL AST 16 L (17-59) U/L ALT 23 (4-49) U/L Alkaline Phosphatase 103 (38-126) U/L Troponin I (0.000-0.034) ng/mL Total Protein 7.1 (6.3-8.2) g/dL Albumin 4.4 (3.5-5.0) g/dL Urine Color Colorless Urine Appearance Clear (Clear) Urine pH 6.5 (5.0-8.0) Ur Specific Bradley 1.006 (1.001-1.035) Urine Protein Negative (Negative) Urine Glucose (UA) Negative (Negative) Urine Ketones Negative (Negative) Urine Blood Negative (Negative) Urine Nitrite Negative (Negative) Urine Bilirubin Negative (Negative) Urine Urobilinogen <2.0 (<2.0) mg/dL Ur Leukocyte Esterase Trace H (Negative) Urine RBC 1 (0-5) /hpf Urine WBC 7 H (0-5) /hpf Urine Mucus Rare H (None) /hpf Urine Opiates Screen Detected H (NotDetected) Ur Oxycodone Screen Not Detected (NotDetected) Urine Methadone Screen Not Detected (NotDetected) Ur Barbiturates Screen Not Detected (NotDetected) U Tricyclic Antidepress Not Detected (NotDetected) Ur Phencyclidine Scrn Not Detected (NotDetected) Ur Amphetamines Screen Not Detected (NotDetected) U Methamphetamines Scrn Not Detected (NotDetected) U Benzodiazepines Scrn Detected H (NotDetected) Urine Cocaine Screen Not Detected (NotDetected) U Marijuana (THC) Screen Detected H (NotDetected) 04/02/24 Range/Units 07:05 WBC (3.8-10.6) k/uL RBC (4.30-5.90) m/uL Hgb (13.0-17.5) gm/dL Hct (39.0-53.0) % MCV (80.0-100.0) fL MCH (25.0-35.0) pg MCHC (31.0-37.0) g/dL RDW (11.5-15.5) % Plt Count (150-450) k/uL MPV Neutrophils % % Lymphocytes % % Monocytes % % Eosinophils % % Basophils % % Neutrophils # (1.3-7.7) k/uL Lymphocytes # (1.0-4.8) k/uL Monocytes # (0-1.0) k/uL Eosinophils # (0-0.7) k/uL Basophils # (0-0.2) k/uL Sodium (137-145) mmol/L Potassium (3.5-5.1) mmol/L Chloride (98-107) mmol/L Carbon Dioxide (22-30) mmol/L Anion Gap mmol/L BUN (9-20) mg/dL Creatinine (0.66-1.25) mg/dL Est GFR (CKD-EPI)AfAm (>60 ml/min/1.73 sqM) Est GFR (CKD-EPI)NonAf (>60 ml/min/1.73 sqM) Glucose (74-99) mg/dL Calcium (8.4-10.2) mg/dL Magnesium (1.6-2.3) mg/dL Total Bilirubin (0.2-1.3) mg/dL AST (17-59) U/L ALT (4-49) U/L Alkaline Phosphatase (38-126) U/L Troponin I <0.012 (0.000-0.034) ng/mL Total Protein (6.3-8.2) g/dL Albumin (3.5-5.0) g/dL Urine Color Urine Appearance (Clear) Urine pH (5.0-8.0) Ur Specific Bradley (1.001-1.035) Urine Protein (Negative) Urine Glucose (UA) (Negative) Urine Ketones (Negative) Urine Blood (Negative) Urine Nitrite (Negative) Urine Bilirubin (Negative) Urine Urobilinogen (<2.0) mg/dL Ur Leukocyte Esterase (Negative) Urine RBC (0-5) /hpf Urine WBC (0-5) /hpf Urine Mucus (None) /hpf Urine Opiates Screen (NotDetected) Ur Oxycodone Screen (NotDetected) Urine Methadone Screen (NotDetected) Ur Barbiturates Screen (NotDetected) U Tricyclic Antidepress (NotDetected) Ur Phencyclidine Scrn (NotDetected) Ur Amphetamines Screen (NotDetected) U Methamphetamines Scrn (NotDetected) U Benzodiazepines Scrn (NotDetected) Urine Cocaine Screen (NotDetected) U Marijuana (THC) Screen (NotDetected) Disposition Clinical Impression: Lightheadedness Disposition: HOME SELF-CARE Condition: Stable Instructions (If sedation given, give patient instructions): Dizziness (ED) Additional Instructions: Please return to the Emergency Department if symptoms worsen or any other concerns. Prescriptions: Meclizine [Antivert] 25 mg PO TID PRN #15 tab PRN Reason: Vertigo Ondansetron Odt [Zofran Odt] 4 mg PO Q8HR PRN #10 tab PRN Reason: Nausea Is patient prescribed a controlled substance at d/c from ED?: No Referrals: Joseph Granger MD [Primary Care Provider] - 1-2 days Time of Disposition: 08:45
[2024-04-02 07:14] LABS: Appearance,Urine Clear (Clear); Bilirubin,Urine Negative (Negative); Blood,Urine Negative (Negative); Color,Urine Colorless; Glucose,Urine (UA) Negative (Negative); Ketones,Urine Negative (Negative); Leukocyte Esterase,Urine Trace (Negative); Mucus,Urine Rare /hpf; Nitrite,Urine Negative (Negative); PH, Urine 6.5 (5.0-8.0); Protein,Urine Negative (Negative); RBC,Urine 1 /hpf (0-5); Specific Gravity,Urine 1.006 (1.001-1.035); Urobilinogen,Urine <2.0 mg/dL (<2.0); WBC,Urine 7 /hpf (0-5)
[2024-04-02 07:23] LABS: Cocaine Screen,Urine Not Detected (NotDetected); Phencyclidine Screen,Urine Not Detected (NotDetected); Urn Cannabinoid Scrn Detected (NotDetected)
[2024-04-02 07:24] LABS: Amphetamine Screen,Urine Not Detected (NotDetected); Barbiturate Screen,Urine Not Detected (NotDetected); Benzodiazepines Screen,Urine Detected (NotDetected); Methadone Screen, Urine Not Detected (NotDetected); Opiate Screen,Urine Detected (NotDetected); Oxycodone Screen, Urine Not Detected (NotDetected); Tricyclic Antidepressant,Urine Not Detected (NotDetected)
[2024-04-02 07:33] LABS: ALT 23 U/L (4-49); AST 16 U/L (17-59); African American GFR (CKD) 82 (>60 ml/min/1.73 sqM); Albumin 4.4 g/dL (3.5-5.0); Alkaline Phosphatase 103 U/L (38-126); Anion Gap 8 mmol/L; Blood Urea Nitrogen 12 mg/dL (9-20); Calcium 9.4 mg/dL (8.4-10.2); Carbon Dioxide 25 mmol/L (22-30); Chloride 106 mmol/L (98-107); Glucose 85 mg/dL (74-99); Non-African American GFR(CKD) 71 (>60 ml/min/1.73 sqM); Potassium 3.9 mmol/L (3.5-5.1); Sodium 139 mmol/L (137-145); Total Bilirubin 0.7 mg/dL (0.2-1.3); Total Protein 7.1 g/dL (6.3-8.2)
--- NOTE | 2024-04-02 07:56 | XR ---
EXAMINATION TYPE: XR chest 2V DATE OF EXAM: 04/02/2024 7:38 AM COMPARISON: 03/18/2024 CLINICAL INDICATION: Male, 64 years old with history of weakness, TECHNIQUE: XR chest 2V view(s) obtained. FINDINGS: The heart size is normal. The pulmonary vasculature is normal. The lungs are clear. Spondylosis through the thoracic spine. IMPRESSION: 1. No acute pulmonary process. [facility], , 04/02/2024 7:54 AM
[2024-04-02] MEDS: ONDANSETRON 4 MG/2 ML VIAL IVP STA (08:27)
[2024-04-02 09:28] VITALS: BP 108/87; PULSE 74; RESP 14; TEMP 98.2
== END 2024-04-02 09:11 | disposition home or self-care (01) ==
LOC: EC 06:29
DX: R42 Dizziness and giddiness (principal); F17.200 Nicotine dependence, unspecified, uncomplicated; Z88.8 Allergy status to other drugs, medicaments and biological substances
CPT/HCPCS: 36415; 93005; 80053; 83735; 84484; 85025; 81001; 80306; 71046; 99285; 96374; 96361; J2405

== ENCOUNTER 2024-04-11 17:51 | Inpatient (IN) | payer OTHER ==
[2024-04-11] MEDS: SODIUM CHLORIDE 0.9% 1,000 ML IV ONE (18:42)
[2024-04-11] MEDS: MORPHINE SULFATE 4 MG/ML SYRINGE IVP STA (18:43)
[2024-04-11 19:13] LABS: Basophils % (A) 0 %; Eosinophils # (A) 0.1 k/uL (0-0.7); Eosinophils % (A) 0 %; HCT 38.3 % (39.0-53.0); HGB 12.4 gm/dL (13.0-17.5); Lymphocytes # (A) 1.6 k/uL (1.0-4.8); Lymphocytes % (A) 12 %; MCH 27.1 pg (25.0-35.0); MCHC 32.3 g/dL (31.0-37.0); Monocytes # (A) 1.2 k/uL (0-1.0); Monocytes % (A) 9 %; Neutrophils # (A) 10.6 k/uL (1.3-7.7); Neutrophils % (A) 78 %; Platelet Count 389 k/uL (150-450); RBC 4.56 m/uL (4.30-5.90); RDW 15.4 % (11.5-15.5); WBC 13.6 k/uL (3.8-10.6)
[2024-04-11 19:18] LABS: ALT 13 U/L (4-49); AST 17 U/L (17-59); African American GFR (CKD) 49 (>60 ml/min/1.73 sqM); Albumin 4.1 g/dL (3.5-5.0); Alkaline Phosphatase 108 U/L (38-126); Anion Gap 8 mmol/L; Blood Urea Nitrogen 15 mg/dL (9-20); Calcium 9.2 mg/dL (8.4-10.2); Carbon Dioxide 22 mmol/L (22-30); Chloride 111 mmol/L (98-107); Creatine Kinase 39 U/L (55-170); Glucose 102 mg/dL (74-99); Non-African American GFR(CKD) 42 (>60 ml/min/1.73 sqM); Potassium 3.5 mmol/L (3.5-5.1); Sodium 141 mmol/L (137-145); Total Bilirubin 0.6 mg/dL (0.2-1.3); Total Protein 6.5 g/dL (6.3-8.2)
[2024-04-11] MEDS: LORazepam 2 MG/ML INJ IM STA (20:50)
[2024-04-11 21:15] LABS: Appearance,Urine Cloudy (Clear); Bacteria,Urine Rare /hpf; Bilirubin,Urine Negative (Negative); Blood,Urine Moderate (Negative); Color,Urine Yellow; Glucose,Urine (UA) Negative (Negative); Hyaline Casts,Urine 6 /lpf (0-2); Ketones,Urine Negative (Negative); Leukocyte Esterase,Urine Moderate (Negative); Mucus,Urine Rare /hpf; Nitrite,Urine Negative (Negative); PH, Urine 5.5 (5.0-8.0); Protein,Urine 1+ (Negative); RBC,Urine 64 /hpf (0-5); Specific Gravity,Urine 1.018 (1.001-1.035); WBC,Urine 32 /hpf (0-5)
--- NOTE | 2024-04-11 22:07 | CT ---
EXAMINATION TYPE: CT abdomen pelvis wo con DATE OF EXAM: 04/11/2024 9:41 PM COMPARISON: None. CLINICAL INDICATION: Male, 64 years old with history of flank pain, flank pain. TECHNIQUE: Axial images were obtained from above the diaphragm to the pubic rami in the axial plane a t 5 mm thick sections. Reconstructed images are reviewed on the computer in the coronal plane. CONTRAST: mL of . Study performed without Oral Contrast DLP: 557.3 mGycm, Automated exposure control for dose reduction was used. FINDINGS: Limited CT sections are obtained the lung bases. The lung bases are clear. CT ABDOMEN: Liver: Normal Spleen: Normal Pancreas: Normal Adrenal glands: The adrenal glands are normal. Gallbladder: Normal Kidneys: Right kidney is somewhat atrophic. No masses are evident. No hydronephrosis is present. No cysts are present. No renal or ureteral stones. Aorta: Vascular calcification is within the aorta. Inferior vena cava: Normal. CT PELVIS: Loops of bowel within the abdomen and pelvis are normal. There are loops of bowel which are incom pletely distended or lack oral contrast limiting their evaluation. Appendix: Not identified. No dilated tubular structure or inflammatory changes evident. Urinary bladder: Decompressed Genitourinary structures: Prostate is normal Osseous structures: No suspicious lytic or sclerotic lesions. Degenerative disc changes are within th e lumbar spine. IMPRESSION: 1. No suspicious abnormality, or flank pain [facility], , 04/11/2024 10:05 PM
[2024-04-11] MEDS: cefTRIAXone IN SWFI 1,000 MG/10 ML SYRINGE IVP STA (22:14)
[2024-04-11] MEDS ORDERED: NALOXONE 0.4 MG/ML 1 ML VIAL IV PRN (22:23)
--- NOTE | 2024-04-11 22:27 | ED ---
Back Pain HPI - General Chief Complaint: Back Pain/Injury Stated Complaint: lower bsck pain/infection Time Seen by Provider: 04/11/24 18:14 Source: patient, EMS Limitations: no limitations - History of Present Illness Initial Comments: 64-year-old male presenting with chief complaint of back pain. Patient is having lower back pain particularly on the right side. He reports that he feels like he has an infection and states "this is what I felt like before". Patient also states that he has a history of lower back pain. He denies any injuries. Denies nausea or vomiting. He does have history of UTIs. Patient is a bit altered, he is rocking back and forth in the bed and has some difficulty providing meaningful history. Denies abdominal pain, dysuria, hematuria, chest pain, difficulty breathing. - Related Data Home Medications Medication Instructions Recorded Confirmed Baclofen [Lioresal] 20 mg PO TID 11/24/23 03/10/24 Fluticasone/Umeclidin/Vilanter 1 puff INHALATION RT-DAILY 12/10/23 03/10/24 [Trelegy Ellipta 100-62.5-25] Citalopram Hydrobromide [CeleXA] 40 mg PO DAILY 01/28/24 03/10/24 Previous Rx's Medication Instructions Recorded ALPRAZolam [Xanax] 0.5 mg PO BID PRN #10 tab 03/18/24 Albuterol Inhaler [Ventolin Hfa 2 puff INHALATION RT-QID each 03/18/24 Inhaler] Cyanocobalamin [Vitamin B-12] 1,000 mcg PO DAILY #60 tab 03/18/24 Famotidine [Pepcid] 20 mg PO BID #30 tab 03/18/24 Folic Acid 1 mg PO DAILY #30 tab 03/18/24 Furosemide [Lasix] 20 mg PO DAILY #30 tab 03/18/24 HYDROcodone/APAP 7.5-325MG [Hope 1 each PO TID PRN #12 tab 03/18/24 7.5-325] Tamsulosin HCl [Flomax] 0.4 mg PO DAILY #30 capsule 03/18/24 predniSONE See Taper PO DIRECTED #30 tab 03/18/24 Meclizine [Antivert] 25 mg PO TID PRN #15 tab 11/06/24 Ondansetron Odt [Zofran Odt] 4 mg PO Q8HR PRN #10 tab 04/02/24 Allergies Allergy/AdvReac Type Severity Reaction Status Date / Time sacubitril [From Entresto] Allergy hives Verified 04/11/24 18:05 trazodone Allergy Rash/Hives Verified 04/11/24 18:05 valsartan [From Entresto] Allergy hives Verified 04/11/24 18:05 Review of Systems ROS Statement: Those systems with pertinent positive or pertinent negative responses have been documented in the HPI. ROS Other: All systems not noted in ROS Statement are negative. Past Medical History Past Medical History: Atrial Fibrillation, COPD, GERD/Reflux, Hypertension, Pneumonia Additional Past Medical History / Comment(s): back pain spinal cord pinched in neck. SOB with activity History of Any Multi-Drug Resistant Organisms: None Reported Date of last positivie culture/infection: 11/25/23 MDRO Source:: Sputum Past Surgical History: Back Surgery Additional Past Surgical History / Comment(s): neck fusion,rt eye surgery, rt hand surgery, cateracts Past Anesthesia/Blood Transfusion Reactions: No Reported Reaction Past Psychological History: Depression Smoking Status: Current every day smoker Past Alcohol Use History: None Reported Past Drug Use History: Marijuana - Past Family History Mother History Unknown: Yes Family Medical History: Myocardial Infarction ([place]) Additional Family Medical History / Comment(s): from [place] General Exam General appearance: alert, in no apparent distress Head exam: Present: atraumatic, normocephalic, normal inspection Eye exam: Present: normal appearance, PERRL, EOMI Neck exam: Present: normal inspection. Absent: meningismus Respiratory exam: Present: normal lung sounds bilaterally. Absent: respiratory distress, wheezes, rales, rhonchi, stridor Cardiovascular Exam: Present: regular rate, normal rhythm, normal heart sounds. Absent: systolic murmur, diastolic murmur, rubs, gallop, clicks Back exam: Present: normal inspection. Absent: tenderness, CVA tenderness (R), CVA tenderness (L) Neurological exam: Present: alert, altered Skin exam: Present: warm, dry Course Vital Signs 04/11/24 04/11/24 04/11/24 18:04 19:30 21:46 Temperature 98.2 F Pulse Rate 98 80 80 Respiratory 17 18 18 Rate Blood Pressure 121/86 134/88 125/101 O2 Sat by Pulse 100 97 95 Oximetry 04/11/24 23:36 Temperature Pulse Rate 92 Respiratory 20 Rate Blood Pressure 146/98 O2 Sat by Pulse 97 Oximetry Medical Decision Making - Medical Decision Making Was pt. sent in by a medical professional or institution (, DIVYA, MARKETING CONTENT COORDINATOR, urgent care, hospital, or retirement...) When possible be specific @ -No Did you speak to anyone other than the patient for history (EMS, parent, family, police, friend...)? What history was obtained from this source @ -No Did you review nursing and triage notes (agree or disagree)? Why? @ -I reviewed and agree with nursing and triage notes Were old charts reviewed (outside hosp., previous admission, EMS record, old EKG, old radiological studies, urgent care reports/EKG's, retirement records)? Report findings @ -No old charts were reviewed Differential Diagnosis (chest pain, altered mental status, abdominal pain women, abdominal pain men, vaginal bleeding, weakness, fever, dyspnea, syncope, headache, dizziness, GI bleed, back pain, seizure, CVA, palpatations, mental health, musculoskeletal)? @ - MDM Differential Back Pain: Strain, zoster, cauda equina syndrome, epidural abscess, vertebral osteomyelitis, discitis, fracture, subluxation, disc herniation, DJD, spinal stenosis, dissection, AAA, pancreatitis, peptic ulcer disease, pyelonephritis, kidney stone this is not meant to be an all-inclusive list. EKG interpreted by me (3pts min.). @ -As above X-rays interpreted by me (1pt min.). @ -None done CT interpreted by me (1pt min.). @ -CT shows no suspicious abnormality U/S interpreted by me (1pt. min.). @ -None done What testing was considered but not performed or refused? (CT, X-rays, U/S, labs)? Why? @ -None What meds were considered but not given or refused? Why? @ -None Did you discuss the management of the patient with other professionals (professionals i.e. , DIVYA, MARKETING CONTENT COORDINATOR, lab, RT, psych nurse, social media coordinator, sider, teacher, army senior officer, correctional case manager)? Give summary @ -Discussed with Dean Rapp from [facility] who accepts admission Was smoking cessation discussed for >3mins.? @ -No Was critical care preformed (if so, how long)? @ -No Were there social determinants of health that impacted care today? How? (Homelessness, low income, unemployed, alcoholism, drug addiction, transportation, low edu. Level, literacy, decrease access to med. care, half-way, rehab)? @ -No Was there de-escalation of care discussed even if they declined (Discuss DNR or withdrawal of care, Hospice)? DNR status @ -No What co-morbidities impacted this encounter? (DM, HTN, Smoking, COPD, CAD, Cancer, CVA, ARF, Chemo, Hep., AIDS, mental health diagnosis, sleep apnea, morbi d obesity)? @ -None Was patient admitted / discharged? Hospital course, mention meds given and rout e, prescriptions, significant lab abnormalities, going to OR and other pertinent info. @ -64-year-old male presenting with chief complaint of back pain. He believes he has an infection. History and physical examination are conducted. Patient is a bit altered. He then becomes agitated and starts cursing. WBC 13.6. Lactic acid 2.2 and creatinine 1.71, patient is receiving IV fluids. Creatinine kinase is 39. Patient is unable to urinate on his own, he is agitated and is yelling at nurses and aides. Patient is given Ativan and straight cath is performed. Urine shows evidence for infection with moderate blood and leukocytes, urine culture sent and patient is treated with Rocephin. CT shows no acute process. Patient will be admitted for UTI with altered mental status. I discussed this case with my attending Dr. hammer Undiagnosed new problem with uncertain prognosis? @ -No Drug Therapy requiring intensive monitoring for toxicity (Heparin, Nitro, Insulin, Cardizem)? @ -No Were any procedures done? @ -No Diagnosis/symptom? @ -UTI, altered mental status Acute, or Chronic, or Acute on Chronic? @ -Acute Uncomplicated (without systemic symptoms) or Complicated (systemic symptoms)? @ -Complicated Side effects of treatment? @ -No Exacerbation, Progression, or Severe Exacerbation? @ -No Poses a threat to life or bodily function? How? (Chest pain, [place], [place], pneumonia, PE, COPD, DKA, ARF, appy, cholecystitis, CVA, Diverticulitis, Homicidal, Suicidal, threat to staff... and all critical care pts) @ -Yes - Lab Data Result diagrams: 04/11/24 18:27 04/11/24 18:27 Lab Results 04/11/24 04/11/24 04/11/24 Range/Units 18:27 18: 18:27 WBC 13.6 H (3.8-10.6) k/uL RBC 4.56 (4.30-5.90) m/uL Hgb 12.4 L (13.0-17.5) gm/dL Hct 38.3 L (39.0-53.0) % MCV 84.0 (80.0-100.0) fL MCH 27.1 (25.0-35.0) pg MCHC 32.3 (31.0-37.0) g/dL RDW 15.4 (11.5-15.5) % Plt Count 389 (150-450) k/uL MPV 8.0 Neutrophils % 78 % Lymphocytes % 12 % Monocytes % 9 % Eosinophils % 0 % Basophils % 0 % Neutrophils # 10.6 H (1.3-7.7) k/uL Lymphocytes # 1.6 (1.0-4.8) k/uL Monocytes # 1.2 H (0-1.0) k/uL Eosinophils # 0.1 (0-0.7) k/uL Basophils # 0.0 (0-0.2) k/uL Sodium 141 (137-145) mmol/L Potassium 3.5 (3.5-5.1) mmol/L Chloride 111 H (98-107) mmol/L Carbon Dioxide 22 (22-30) mmol/L Anion Gap 8 mmol/L BUN 15 (9-20) mg/dL Creatinine 1.71 H (0.66-1.25) mg/dL Est GFR (CKD-EPI)AfAm 49 (>60 ml/min/1.73 sqM) Est GFR (CKD-EPI)NonAf 42 (>60 ml/min/1.73 sqM) Glucose 102 H (74-99) mg/dL Lactic Ac Sepsis Rflx Plasma Lactic Acid Pierre 2.2 H* (0.7-2.0) mmol/L Calcium 9.2 (8.4-10.2) mg/dL Total Bilirubin 0.6 (0.2-1.3) mg/dL AST 17 (17-59) U/L ALT 13 (4-49) U/L Alkaline Phosphatase 108 (38-126) U/L Creatine Kinase 39 L (55-170) U/L Total Protein 6.5 (6.3-8.2) g/dL Albumin 4.1 (3.5-5.0) g/dL Urine Color Urine Appearance (Clear) Urine pH (5.0-8.0) Ur Specific [place] (1.001-1.035) Urine Protein (Negative) Urine Glucose (UA) (Negative) Urine Ketones (Negative) Urine Blood (Negative) Urine Nitrite (Negative) Urine Bilirubin (Negative) Urine Urobilinogen (<2.0) mg/dL Ur Leukocyte Esterase (Negative) Urine RBC (0-5) /hpf Urine WBC (0-5) /hpf Urine Bacteria (None) /hpf Hyaline Casts (0-2) /lpf Urine Mucus (None) /hpf 04/11/24 04/11/24 04/11/24 Range/Units 19:22 20:56 21:52 WBC (3.8-10.6) k/uL RBC (4.30-5.90) m/uL Hgb (13.0-17.5) gm/dL Hct (39.0-53.0) % MCV (80.0-100.0) fL MCH (25.0-35.0) pg MCHC (31.0-37.0) g/dL RDW (11.5-15.5) % Plt Count (150-450) k/uL MPV Neutrophils % % Lymphocytes % % Monocytes % % Eosinophils % % Basophils % % Neutrophils # (1.3-7.7) k/uL Lymphocytes # (1.0-4.8) k/uL Monocytes # (0-1.0) k/uL Eosinophils # (0-0.7) k/uL Basophils # (0-0.2) k/uL Sodium (137-145) mmol/L Potassium (3.5-5.1) mmol/L Chloride (98-107) mmol/L Carbon Dioxide (22-30) mmol/L Anion Gap mmol/L BUN (9-20) mg/dL Creatinine (0.66-1.25) mg/dL Est GFR (CKD-EPI)AfAm (>60 ml/min/1.73 sqM) Est GFR (CKD-EPI)NonAf (>60 ml/min/1.73 sqM) Glucose (74-99) mg/dL Lactic Ac Sepsis Rflx Y Plasma Lactic Acid Pierre 1.6 (0.7-2.0) mmol/L Calcium (8.4-10.2) mg/dL Total Bilirubin (0.2-1.3) mg/dL AST (17-59) U/L ALT (4-49) U/L Alkaline Phosphatase (38-126) U/L Creatine Kinase (55-170) U/L Total Protein (6.3-8.2) g/dL Albumin (3.5-5.0) g/dL Urine Color Yellow Urine Appearance Cloudy (Clear) Urine pH 5.5 (5.0-8.0) Ur Specific [place] 1.018 (1.001-1.035) Urine Protein 1+ H (Negative) Urine Glucose (UA) Negative (Negative) Urine Ketones Negative (Negative) Urine Blood Moderate H (Negative) Urine Nitrite Negative (Negative) Urine Bilirubin Negative (Negative) Urine Urobilinogen 2.0 (<2.0) mg/dL Ur Leukocyte Esterase Moderate H (Negative) Urine RBC 64 H (0-5) /hpf Urine WBC 32 H (0-5) /hpf Urine Bacteria Rare H (None) /hpf Hyaline Casts 6 H (0-2) /lpf Urine Mucus Rare H (None) /hpf Disposition Clinical Impression: UTI (urinary tract infection) Disposition: ADMITTED IP TO THIS HOSP Condition: Serious Time of Disposition: 22:27
[2024-04-11] MEDS: SODIUM CHLORIDE 0.9% 1,000 ML IV SCH (22:47)
[2024-04-12] MEDS: HYDROcodone/APAP 7.5-325MG 1 EACH TAB PO PRN (00:45)
[2024-04-12] MEDS: ALPRAZolam 0.5 MG TAB PO PRN (01:10)
[2024-04-12] MEDS: LORazepam 2 MG/ML INJ IV STA (06:34)
[2024-04-12] MEDS: methocarbamoL 500 MG TAB PO PRN (12:33)
--- NOTE | 2024-04-12 13:48 | US ---
EXAMINATION TYPE: US kidneys/renal and bladder DATE OF EXAM: 04/12/2024 COMPARISON: NONE CLINICAL INDICATION: Male, 64 years old with history of Flank pain; Patient has history of renal ston es with new onset severe right sided pain with vomiting and urinary frequency without void. discoordi natalya renal size TECHNIQUE: Grayscale imaging of the bilateral kidneys and urinary bladder: FINDINGS: EXAM MEASUREMENTS: Right Kidney: 6.7 x 4.6 x 4.1 cm Left Kidney: 10.7 x 5.9 x 4.7 cm Post Void Residual Volume: NA mL Right Kidney: Atrophic appearance; Limited evaluation - no evidence of hydronephrosis or stones Left Kidney: Limited evaluation - no evidence of hydronephrosis or stones Bladder: Limited evaluation; WNL as visualized Bilateral Jets seen: Not able to assess Normal Post Void Residual: NA Difficult exam - patient not able to lay down or stay still for exam IMPRESSION: 1. Examination as visualized appears unremarkable. 2. Some atrophy of the right kidney compared to the left [facility] Tyrel Holguin, , 04/12/2024 1:46 PM
[2024-04-13] MEDS ORDERED: ALBUTEROL NEBULIZED 2.5 MG/3 ML INHALATION PRN (10:35)
[2024-04-13] MEDS ORDERED: MECLIZINE 25 MG TAB PO PRN (10:35)
[2024-04-13] MEDS: FAMOTIDINE 20 MG TAB PO SCH (11:36)
[2024-04-13] MEDS: FOLIC ACID 1 MG TAB PO SCH (11:36)
[2024-04-13] MEDS: CYANOCOBALAMIN 500 MCG TAB PO SCH (11:36)
[2024-04-13] MEDS: CITALOPRAM HYDROBROMIDE 20 MG TAB PO SCH (11:36)
[2024-04-13] MEDS: IPRATROPIUM 0.5 MG/2.5 ML NEBU INHALATION SCH (12:35)
[2024-04-13] MEDS: NICOTINE 21MG/24HR PATCH TRANSDERM SCH (13:14)
--- NOTE | 2024-04-13 13:42 | P.PN ---
Subjective Progress Note Date: 04/13/24 patient is a 64-year-old gentleman with past medical history significant for COPD, depression who presented to the ER because of back pain. Patient said that he was all right couple of days back when he started noticing back pain which is mostly located on the right side, intermittent, nonradiating, aggr avated by movement. There is no complaint of fever or chills. Patient stated that it feels like he has infection of his kidneys. There is no current nausea or vomiting. There is no complaint of chest pain or shortness of breath. Patient was recently admitted in the hospital for COVID-19 pneumonia. Because of this back pain, patient presented the ER Initial lab work done in the ER showed WBC 13.6, hemoglobin 12.4, platelet count 389, sodium 141, potassium 3.5, BUN 15, creatinine 1.71, lactate 2.2, CK9 39 UA done showed moderate amount of leukocyte Estrace, urine WBC 32 CT abdomen pelvis done showed no suspicious abnormality seen Patient admitted to internal medicine service 04/13. Patient seen and examined. Complaining of right-sided pain, complains of increased frequency of urination. REVIEW OF SYSTEMS: CONSTITUTIONAL: No fever, no malaise,. CARDIOVASCULAR: No chest pain, no palpitations, no syncope. PULMONARY: No shortness of breath, no cough, GASTROINTESTINAL: No diarrhea, no nausea, no vomiting, no abdominal pain. NEUROLOGICAL: No headaches, no weakness, PHYSICAL EXAMINATION: GENERAL: The patient is alert and oriented x3, not in any acute distress. Well developed, well nourished. HEENT: Pupils are round and equally reacting to light. EOMI. No scleral icterus. No conjunctival pallor. Normocephalic, atraumatic. No pharyngeal erythema. No thyromegaly. CARDIOVASCULAR: S1 and S2 present. No murmurs, rubs, or gallops. PULMONARY: Chest is clear to auscultation, no wheezing or crackles. ABDOMEN: Soft, nontender, nondistended, normoactive bowel sounds. No palpable organomegaly. MUSCULOSKELETAL: No joint swelling or deformity. EXTREMITIES: No cyanosis, clubbing, or pedal edema. NEUROLOGICAL: Gross neurological examination did not reveal any focal deficits. SKIN: No rashes. Assessment and plan Intractable back pain UTI Chronic obstructive pulmonary disease Chronic ongoing tobacco dependence History of ventilator dependent respiratory failure History of paroxysmal atrial fibrillation History of hypertension History of GERD Monitor vital signs Monitor CBC Monitor CMP Encourage use of incentive spirometer Continue pain management Continue IV fluids Start IV Rocephin Resume home med Consult ID Labs and medication were reviewed.. Continue same treatment. Continue with symptomatic treatment. Resume home medication. Monitor labs and vitals. DVT and GI prophylaxis. Further recommendations as per clinical course of the patient Dictation was produced using [employer] dictation software. please excuse any grammatical, word or spelling errors. Objective - Vital Signs Vital signs: Vital Signs Temp 98.7 F 04/13/24 07:11 Pulse 73 04/13/24 07:11 Resp 18 04/13/24 07:11 BP 126/76 04/13/24 07:11 Pulse Ox 99 04/13/24 07:11 FiO2 Intake & Output 04/12/24 04/13/24 04/13/24 18:59 06:59 18:59 Output Total 1450 Balance -1450 Output: Urine 1450 Other: Voiding Method Urinal Urinal # Voids 5 - Labs CBC & Chem 7: 04/11/24 18:27 04/11/24 18:27 Labs: Microbiology - Last 24 Hours (Table) 04/11/24 21:59 Blood Culture - Preliminary Blood 04/11/24 20:56 Urine Culture - Preliminary Urine,Voided
[2024-04-13] MEDS: BACLOFEN 10 MG TAB PO SCH (18:05)
[2024-04-13] MEDS: SYMBICORT 80-4.5 MCG INHALER INHALATION SCH (19:47)
[2024-04-14] MEDS: ACETAMINOPHEN TAB 325 MG TAB PO PRN (02:13)
--- NOTE | 2024-04-14 07:18 | P.CONS ---
History of Present Illness - Reason for Consult Consult date: 04/13/24 UTI Requesting physician: Francisco Javier Lewis - Chief Complaint Urinary burning and flank pain x few days - History of Present Illness Patient is a 64-year-old male with a past medical history significant for hypertension reflux COPD atrial fibrillation, presenting to the hospital for evaluation of pain to the right flank area that apparently has been going on for the last few days describing it to be dull aching to sharp moderate intensity without radiation patient was also complaining of some urinary burning and difficulty urination and was noticed to have some mental status changes on presentation to the hospital on arrival to the ER the patient was afebrile and no fever have been recorded subsequently patient was nontachycardic hypotensive no O2 sats on room air has been documented he is currently on 2 L satting 100% patient did have white count of 13.6 with a left shift creatinine was 1.71 lactic acid elevated liver enzymes are normal urine has been positive cultures are currently pending patient has been started on Rocephin infectious disease was consulted for further management of antibiotic therapy Review of Systems Positive point and negatives has been mentioned in the HPI, complete review of systems was performed and all other systems are negative Past Medical History Past Medical History: Atrial Fibrillation, COPD, GERD/Reflux, Hypertension, Pneumonia Additional Past Medical History / Comment(s): back pain spinal cord pinched in neck. SOB with activity History of Any Multi-Drug Resistant Organisms: None Reported Year Discovered:: 11/25/23 MDRO Source:: Sputum Past Surgical History: Back Surgery Additional Past Surgical History / Comment(s): neck fusion,rt eye surgery, rt hand surgery, cateracts Past Anesthesia/Blood Transfusion Reactions: No Reported Reaction Past Psychological History: Depression Smoking Status: Current every day smoker Past Alcohol Use History: None Reported Additional Past Alcohol Use History / Comment(s): 1/2 pack a day more or less Past Drug Use History: Marijuana Additional Drug Use History / Comment(s): Pt reports occassionaly marijuanna use. - Past Family History Mother History Unknown: Yes Family Medical History: Myocardial Infarction ([place]) Additional Family Medical History / Comment(s): from [place] Medications and Allergies Home Medications Medication Instructions Recorded Confirmed Type Baclofen [Lioresal] 20 mg PO TID 11/24/23 04/12/24 History Fluticasone/Umeclidin/Vilanter 1 puff INHALATION RT-DAILY 12/10/23 04/12/24 History [Trelegy Ellipta 100-62.5-25] Citalopram Hydrobromide [CeleXA] 40 mg PO DAILY 01/28/24 04/12/24 History ALPRAZolam [Xanax] 0.5 mg PO BID PRN #10 tab 03/18/24 04/12/24 Rx Cyanocobalamin [Vitamin B-12] 1,000 mcg PO DAILY #60 tab 03/18/24 04/12/24 Rx Famotidine [Pepcid] 20 mg PO BID #30 tab 03/18/24 04/12/24 Rx Folic Acid 1 mg PO DAILY #30 tab 03/18/24 04/12/24 Rx Tamsulosin HCl [Flomax] 0.4 mg PO DAILY #30 capsule 03/18/24 04/12/24 Rx Meclizine [Antivert] 25 mg PO TID PRN #15 tab 04/02/24 04/12/24 Rx Ondansetron Odt [Zofran ODT] 4 mg PO Q8HR PRN #10 tab 04/02/24 04/12/24 Rx Albuterol Inhaler [Ventolin Hfa 2 puff INHALATION RT-QID PRN 04/12/24 04/12/24 History Inhaler] HYDROcodone/APAP 7.5-325MG [[place] 1 tab PO TID PRN 04/12/24 04/12/24 History 7.5-325] cefuroxime axetiL [Ceftin] 500 mg PO BID 5 Days #10 tab 04/14/24 Rx Allergies Allergy/AdvReac Type Severity Reaction Status Date / Time sacubitril [From Entresto] Allergy hives Verified 04/12/24 10:48 trazodone Allergy Rash/Hives Verified 04/12/24 10:48 valsartan [From Entresto] Allergy hives Verified 04/12/24 10:48 Physical Exam Vitals: Vital Signs Temp Pulse Resp BP Pulse Ox 04/13/24 07:11 98.7 F 73 18 126/76 99 04/13/24 02:00 97.6 F 72 135/80 99 04/12/24 21:00 20 04/12/24 13:42 97.7 F 94 20 130/83 98 Intake and Output 04/12/24 04/13/24 04/13/24 22:59 06:59 14:59 Output Total 600 850 Balance -600 -850 Output: Urine 600 850 Other: Voiding Method Urinal # Voids 5 GENERAL DESCRIPTION: Middle-aged male lying in bed, no distress. No tachypnea or accessory muscle of respiration use. HEENT: Shows Pallor , no scleral icterus. Oral mucous membrane is dry. No pharyngeal erythema or thrush NECK: Trachea central, no thyromegaly. LUNGS: Unlabored breathing. Clear to auscultation anteriorly. No wheeze or cr ackle. HEART: S1, S2, regular rate and rhythm. No loud murmur ABDOMEN: Soft, no tenderness , guarding or rigidity, no organomegaly EXTREMITIES: No edema of feet. SKIN: No rash, no masses palpable. NEUROLOGICAL: The patient is awake, alert, oriented x3, mood and affect normal. Results CBC & Chem 7: 04/14/24 03:56 04/14/24 03:56 Labs: Microbiology - Last 24 Hours (Table) 04/11/24 21:59 Blood Culture - Preliminary Blood 04/11/24 20:56 Urine Culture - Preliminary Urine,Voided Assessment and Plan (1) UTI (urinary tract infection) Current Visit: Yes Status: Acute Code(s): N39.0 - URINARY TRACT INFECTION, SITE NOT SPECIFIED SNOMED Code(s): 52980687 Plan: 1patient presented to hospital with some mental status changes also has some urinary burning difficulty urination as well as flank pain concerning for symptomatic UTI as the patient did have elevated white count as well as elevated lactic acid likely from enteric gram-negative pathogen 2- ultrasound of the kidney bladder with no evidence of any obstructive uropathy 3-Rocephin 1 g daily while waiting for the culture to finalize We will follow on clinical condition and cultures to further adjust medication if needed Thank you for this consultation we will follow the patient along with you Dictation was produced using [employer] dictation software. please excuse any grammatical, word or spelling errors. Time with Patient: Greater than 30
[2024-04-14 08:09] VITALS: BP 159/89; PULSE 71; RESP 16; TEMP 97.6
[2024-04-14 08:44] LABS: ALT 10 U/L (10-49); AST 12 U/L (14-35); Albumin 3.2 g/dL (3.8-4.9); Albumin/Globulin Ratio 2.13 Ratio (1.60-3.17); Alkaline Phosphatase 84 U/L (41-126); Blood Urea Nitrogen 12.6 mg/dL (9.0-27.0); Calcium 8.2 mg/dL (8.7-10.3); Carbon Dioxide 23.8 mmol/L (21.6-31.8); Chloride 112 mmol/L (96-109); Globulin 1.5 g/dL (1.6-3.3); Glucose 90 mg/dL (70-110); Sodium 144 mmol/L (135-145); Total Bilirubin <0.2 mg/dL (0.3-1.2); Total Protein 4.7 g/dL (6.2-8.2)
[2024-04-14 08:47] LABS: Basophils # (A) 0.03 X 10*3/uL (0.00-0.10); Basophils % (A) 0.5 %; Eosinophils # (A) 0.07 X 10*3/uL (0.04-0.35); Eosinophils % (A) 1.2 %; HGB 10.5 g/dL (13.0-17.0); Lymphocytes # (A) 1.96 X 10*3/uL (0.90-5.00); MCH 27.1 pg (27.0-32.0); MCHC 30.9 g/dL (32.0-37.0); MCV 87.6 FL (80.0-97.0); Mean Platelet Volume 10.7 FL (9.5-12.2); Monocytes # (A) 0.73 X 10*3/uL (0.20-1.00); Monocytes % (A) 12.7 %; NRBC Per 100 WBC 0 X 10*3/uL (0.00-0.01); Neutrophils # (A) 2.96 X 10*3/uL (1.80-7.70); Neutrophils % (A) 51.3 %; Platelet Count 259 X 10*3/uL (140-440); RBC 3.88 X 10*6/uL (4.40-5.60); RDW 16.2 % (11.5-14.5); WBC 5.77 X 10*3/uL (4.50-10.00)
[2024-04-14] MEDS: FUROSEMIDE 20 MG TAB PO SCH (08:54)
[2024-04-14] MEDS: TAMSULOSIN 0.4 MG CAP.ER.24H PO SCH (08:54)
--- NOTE | 2024-04-14 09:50 | P.NPCON ---
History of Present Illness - Reason for Consult acute renal failure - History of Present Illness Reason for consultation: Acute kidney injury History of present illness: Patient is a 64-year-old male seen in new consultation for acute kidney injury. Patient came to the hospital due to back pain. Patient states he has been having back pain for several years but was progressively getting worse over the last few days. He also had diarrhea for 1 day. Patient states the pain is not in his flanks but in the midportion of his lower back. He denies chest pain or shortness of breath. Denies vomiting. Denies fever or chills. No evidence of hypotension. Denies use of nonsteroidals. Denies history of diabetes or coronary artery disease. Denies family history of renal disease. Currently receiving IV fluids. Creatinine was 1.7 on admission and is 0.9 today. Vital signs are stable. General: No acute distress. HEENT: Head exam is unremarkable. LUNGS: No audible rhonchi or wheezes. HEART: Rate and Rhythm are regular. ABDOMEN: Nontender. EXTREMITITES: No edema. Past Medical History Past Medical History: Atrial Fibrillation, COPD, GERD/Reflux, Hypertension, Pneumonia Additional Past Medical History / Comment(s): back pain spinal cord pinched in neck. SOB with activity History of Any Multi-Drug Resistant Organisms: None Reported Date of last positivie culture/infection: 11/25/23 MDRO Source:: Sputum Past Surgical History: Back Surgery Additional Past Surgical History / Comment(s): neck fusion,rt eye surgery, rt hand surgery, cateracts Past Anesthesia/Blood Transfusion Reactions: No Reported Reaction Past Psychological History: Depression Smoking Status: Current every day smoker Past Alcohol Use History: None Reported Additional Past Alcohol Use History / Comment(s): 1/2 pack a day more or less Past Drug Use History: Marijuana Additional Drug Use History / Comment(s): Pt reports occassionaly marijuanna use. - Past Family History Mother History Unknown: Yes Family Medical History: Myocardial Infarction ([place]) Additional Family Medical History / Comment(s): from [place] Medications and Allergies Home Medications Medication Instructions Recorded Confirmed Type Baclofen [Lioresal] 20 mg PO TID 11/24/23 04/12/24 History Fluticasone/Umeclidin/Vilanter 1 puff INHALATION RT-DAILY 12/10/23 04/12/24 History [Trelegy Ellipta 100-62.5-25] Citalopram Hydrobromide [CeleXA] 40 mg PO DAILY 01/28/24 04/12/24 History ALPRAZolam [Xanax] 0.5 mg PO BID PRN #10 tab 03/18/24 04/12/24 Rx Cyanocobalamin [Vitamin B-12] 1,000 mcg PO DAILY #60 tab 03/18/24 04/12/24 Rx Famotidine [Pepcid] 20 mg PO BID #30 tab 03/18/24 04/12/24 Rx Folic Acid 1 mg PO DAILY #30 tab 03/18/24 04/12/24 Rx Furosemide [Lasix] 20 mg PO DAILY #30 tab 03/18/24 04/12/24 Rx Tamsulosin HCl [Flomax] 0.4 mg PO DAILY #30 capsule 03/18/24 04/12/24 Rx Meclizine [Antivert] 25 mg PO TID PRN #15 tab 04/02/24 04/12/24 Rx Ondansetron Odt [Zofran Odt] 4 mg PO Q8HR PRN #10 tab 04/02/24 04/12/24 Rx Albuterol Inhaler [Ventolin Hfa 2 puff INHALATION RT-QID PRN 04/12/24 04/12/24 History Inhaler] HYDROcodone/APAP 7.5-325MG [[place] 1 tab PO TID PRN 04/12/24 04/12/24 History 7.5-325] Allergies Allergy/AdvReac Type Severity Reaction Status Date / Time sacubitril [From Entresto] Allergy hives Verified 04/12/24 10:48 trazodone Allergy Rash/Hives Verified 04/12/24 10:48 valsartan [From Entresto] Allergy hives Verified 04/12/24 10:48 Physical Exam Vitals: Vital Signs Temp Pulse Resp BP Pulse Ox 04/14/24 09:15 99 04/14/24 07:13 97.6 F 71 16 159/89 100 04/14/24 02:00 97.3 F L 63 158/93 100 04/13/24 20:25 63 18 04/13/24 20:00 97.8 F 63 161/90 100 04/13/24 13:24 98.2 F 71 18 153/88 99 Intake and Output 04/13/24 04/14/24 04/14/24 22:59 06:59 14:59 Intake Total 540 Output Total 400 725 Balance 140 -725 Intake: Oral 540 Output: Urine 400 725 Other: Voiding Method Toilet Urinal # Voids 4 Results - Lab Results Most recent lab results Calcium 8.2 mg/dL (8.7-10.3) L 04/14/24 03:56 04/14/24 03:56 04/14/24 03:56 Assessment and Plan Plan: Assessment: 1. Acute kidney injury secondary to vasomotor nephropathy secondary to hypo volemia. Creatinine 1.7 on admission and is 0.9 today. No hydronephrosis noted on CT. 2. Atrophic right kidney. 3. UTI on antibiotics. ID following. Plan: Maintain IV fluids. Decrease rate to 50 cc an hour. Encouraged oral intake. Avoid nephrotoxins. Thank you for the consultation. I will continue to follow the patient with you during his hospital stay.
--- NOTE | 2024-04-14 11:06 | P.DS ---
Providers Date of admission: 04/11/24 22:19 Expected date of discharge: 04/14/24 Attending physician: Eva Saba Consults: 04/13/24 10:38 Consult Physician Routine Consulting Provider: Madhu Linder Consult Reason/Comments: UTI Do you want consulting provider notified?: Yes 04/13/24 12:03 Consult Physician Routine Consulting Provider: Keyona Almodovar Consult Reason/Comments: nishant Do you want consulting provider notified?: Yes Primary care physician: Joseph Granger MD Hospital Course: Discharge diagnoses; Intractable back pain UTI NISHANT Chronic obstructive pulmonary disease Chronic ongoing tobacco dependence History of ventilator dependent respiratory failure History of paroxysmal atrial fibrillation History of hypertension History of GERD Hospital course; patient is a 64-year-old gentleman with past medical history significant for COPD, depression who presented to the ER because of back pain. Patient said that he was all right couple of days back when he started noticing back pain which is mostly located on the right side, intermittent, nonradiating, aggravated by movement. There is no complaint of fever or chills. Patient stated that it feels like he has infection of his kidneys. There is no current nausea or vomiting. There is no complaint of chest pain or shortness of breath. Patient was recently admitted in the hospital for COVID-19 pneumonia. Because of this back pain, patient presented the ER Initial lab work done in the ER showed WBC 13.6, hemoglobin 12.4, platelet count 389, sodium 141, potassium 3.5, BUN 15, creatinine 1.71, lactate 2.2, CK9 39 UA done showed moderate amount of leukocyte Estrace, urine WBC 32 CT abdomen pelvis done showed no suspicious abnormality seen Patient admitted to internal medicine service 04/13. Patient seen and examined. Complaining of right-sided pain, complains of increased frequency of urination. 04/14. Patient seen and examined. Patient renal functions have normalized. ID recommended discharging patient on oral Ceftin for 5 more days. Outpatient follow-up with PCP PHYSICAL EXAMINATION: GENERAL: The patient is alert and oriented x3, not in any acute distress. Well developed, well nourished. HEENT: Pupils are round and equally reacting to light. EOMI. No scleral icterus. No conjunctival pallor. Normocephalic, atraumatic. No pharyngeal erythema. No thyromegaly. CARDIOVASCULAR: S1 and S2 present. No murmurs, rubs, or gallops. PULMONARY: Chest is clear to auscultation, no wheezing or crackles. ABDOMEN: Soft, nontender, nondistended, normoactive bowel sounds. No palpable organomegaly. MUSCULOSKELETAL: No joint swelling or deformity. EXTREMITIES: No cyanosis, clubbing, or pedal edema. NEUROLOGICAL: Gross neurological examination did not reveal any focal deficits. SKIN: No rashes. Dictation was produced using [employer] dictation software. please excuse any grammatical, word or spelling errors. Patient Condition at Discharge: Good Plan - Discharge Summary New Discharge Prescriptions: New cefuroxime axetiL [Ceftin] 500 mg PO BID 5 Days #10 tab Continue Tamsulosin HCl [Flomax] 0.4 mg PO DAILY #30 capsule Folic Acid 1 mg PO DAILY #30 tab HYDROcodone/APAP 7.5-325MG [[place] 7.5-325] 1 tab PO TID PRN PRN Reason: Pain Albuterol Inhaler [Ventolin Hfa Inhaler] 2 puff INHALATION RT-QID PRN PRN Reason: Shortness Of Breath Baclofen [Lioresal] 20 mg PO TID Fluticasone/Umeclidin/Vilanter [Trelegy Ellipta 100-62.5-25] 1 puff INHALATION RT-DAILY Citalopram Hydrobromide [CeleXA] 40 mg PO DAILY Famotidine [Pepcid] 20 mg PO BID #30 tab Cyanocobalamin [Vitamin B-12] 1,000 mcg PO DAILY #60 tab ALPRAZolam [Xanax] 0.5 mg PO BID PRN #10 tab PRN Reason: Anxiety Meclizine [Antivert] 25 mg PO TID PRN #15 tab PRN Reason: Vertigo Ondansetron Odt [Zofran ODT] 4 mg PO Q8HR PRN #10 tab PRN Reason: Nausea Discontinued Furosemide [Lasix] 20 mg PO DAILY #30 tab Discharge Medication List Baclofen [Lioresal] 20 mg PO TID 11/24/23 [History] Fluticasone/Umeclidin/Vilanter [Trelegy Ellipta 100-62.5-25] 1 puff INHALATION RT-DAILY 12/10/23 [History] Citalopram Hydrobromide [CeleXA] 40 mg PO DAILY 01/28/24 [History] ALPRAZolam [Xanax] 0.5 mg PO BID PRN #10 tab 03/18/24 [Rx] Cyanocobalamin [Vitamin B-12] 1,000 mcg PO DAILY #60 tab 03/18/24 [Rx] Famotidine [Pepcid] 20 mg PO BID #30 tab 03/18/24 [Rx] Folic Acid 1 mg PO DAILY #30 tab 03/18/24 [Rx] Tamsulosin HCl [Flomax] 0.4 mg PO DAILY #30 capsule 03/18/24 [Rx] Meclizine [Antivert] 25 mg PO TID PRN #15 tab 04/02/24 [Rx] Ondansetron Odt [Zofran ODT] 4 mg PO Q8HR PRN #10 tab 04/02/24 [Rx] Albuterol Inhaler [Ventolin Hfa Inhaler] 2 puff INHALATION RT-QID PRN 04/12/24 [History] HYDROcodone/APAP 7.5-325MG [[place] 7.5-325] 1 tab PO TID PRN 04/12/24 [History] cefuroxime axetiL [Ceftin] 500 mg PO BID 5 Days #10 tab 04/14/24 [Rx] Follow up Appointment(s)/Referral(s): Joseph Granger MD [Primary Care Provider] - 1-2 days Discharge Disposition: HOME SELF-CARE
--- NOTE | 2024-04-14 11:54 | P.PN ---
Subjective Progress Note Date: 04/14/24 Principal diagnosis: Reason for follow-up is UTI and leukocytosis Patient is a 64-year-old male with a past medical history significant for hypertension reflux COPD atrial fibrillation, presenting to the hospital for evaluation of pain to the right flank area along with some burning of urine and was diagnosed with a UTI. On today's evaluation that is 04/14/2024,the patient remains to be afebrile, patient is on room air not requiring supplemental oxygen and denies any shortness of breath no chest pain or cough.Patient denies having any nausea or vomiting, no abdominal pain and no diarrhea, mention improvement in his urinary symptoms. Patient white count normalized to 5.77, creatinine 0.9 urine culture currently pending blood culture from negative Objective - Vital Signs Vital signs: Vital Signs Temp 97.6 F 04/14/24 07:13 Pulse 71 04/14/24 07:13 Resp 16 04/14/24 07:13 BP 159/89 04/14/24 07:13 Pulse Ox 99 04/14/24 09:15 FiO2 Intake & Output 04/13/24 04/14/24 04/14/24 18:59 06:59 18:59 Intake Total 540 Output Total 1125 Balance -585 Intake: Oral 540 Output: Urine 1125 Other: Voiding Method Toilet Toilet Toilet Urinal Urinal Urinal # Voids 4 - Exam GENERAL DESCRIPTION: Middle-age male up in bed in no distress RESPIRATORY SYSTEM: Unlabored breathing , decreased breath sounds at bases HEART: S1 S2 regular rate and rhythm , ABDOMEN: Soft , no tenderness EXTREMITIES: No edema feet - Labs CBC & Chem 7: 04/14/24 03:56 04/14/24 03:56 Labs: Abnormal Lab Results - Last 24 Hours (Table) 04/14/24 04/14/24 Range/Units 03:56 03:56 RBC 3.88 L (4.40-5.60) X 10*6/uL Hgb 10.5 L (13.0-17.0) g/dL Hct 34.0 L (39.6-50.0) % MCHC 30.9 L (32.0-37.0) g/dL RDW 16.2 H (11.5-14.5) % Chloride 112 H (96-109) mmol/L Calcium 8.2 L (8.7-10.3) mg/dL Total Bilirubin <0.2 L (0.3-1.2) mg/dL AST 12 L (14-35) U/L Total Protein 4.7 L (6.2-8.2) g/dL Albumin 3.2 L (3.8-4.9) g/dL Globulin 1.5 L (1.6-3.3) g/dL Microbiology - Last 24 Hours (Table) 04/11/24 20:56 Urine Culture - Preliminary Urine,Voided 04/11/24 21:59 Blood Culture - Preliminary Blood Assessment and Plan (1) UTI (urinary tract infection) Current Visit: Yes Status: Acute Code(s): N39.0 - URINARY TRACT INFECTION, SITE NOT SPECIFIED SNOMED Code(s): 22483613 Plan: 1patient presented to hospital with some mental status changes also has some urinary burning difficulty urination as well as flank pain concerning for symptomatic UTI as the patient did have elevated white count as well as elevated lactic acid likely from enteric gram-negative pathogen 2- ultrasound of the kidney bladder with no evidence of any obstructive uropathy 3-patient did have normalization of his white count urine culture have been pending patient has been insisting on going home keeping in mind improvement of his symptoms with Rocephin we will consider short course of oral Ceftin on discharge this was discussed with admitting team Dictation was produced using [employer] dictation software. please excuse any grammatical, word or spelling errors. Time with Patient: Less than 30
== END 2024-04-14 13:59 | disposition home or self-care (01) | DRG 463 ==
LOC: EC 17:51 → 4SSUR 22:19
PROVIDERS: ADMIT Hospitalist; ATTEND Hospitalist
DX: N39.0 Urinary tract infection, site not specified (principal); N26.1 Atrophy of kidney (terminal); N17.0 Acute kidney failure with tubular necrosis; J44.9 Chronic obstructive pulmonary disease, unspecified; I48.0 Paroxysmal atrial fibrillation; I10 Essential (primary) hypertension; F17.210 Nicotine dependence, cigarettes, uncomplicated; K21.9 Gastro-esophageal reflux disease without esophagitis; E86.1 Hypovolemia; Z88.0 Allergy status to penicillin; Z86.16 Personal history of COVID-19; Z87.440 Personal history of urinary (tract) infections
CPT/HCPCS: 36415; 74176; 76770; 80053; 81001; 82550; 83605; 85025; 87040; 87086; 94760; 96361; 96372; 96374; 96375; 99285